=== PATIENT | female | born 1980 | race Caucasian/White ===

== ENCOUNTER → 2018-02-10 14:20 | Outpatient (CLI) | payer OTHER, SELFPAY ==
[2018-02-10 15:58] LABS: Absolute Lymphocyte Count 2.21 X10^3/ul (0.83-4.51); Absolute Neutrophil Count 5.6 X10^3/uL (2.0-7.7); Basophil# 0.03 X10^3/uL; Basophil% 0.4 % (0-1); Eosinophil# 0.11 X10^3/uL; Eosinophils% 1.3 % (0-5); Hematocrit 41.6 % (37-47); Hemoglobin 14.4 g/dl (12.0-15.0); Lymphocyte # 2.21 X10^3/ul (4.0); Lymphocyte % 26.3 % (19-41); Mean Corp Hgb Conc 34.6 g/gl (32-36); Mean Corpuscular Hgb 29.8 pg (27.0-32.0); Mean Corpuscular Volume 86.1 fL (81-99); Monocyte# 0.43 X10^3/uL; Monocyte% 5.1 % (0-10); Neutrophil % 66.7 % (47-70); Platelet Count 205 K/mm3 (150-450); RBC Distribution Width CV 12.4 % (11.6-14.6); RBC Distribution Width SD 38.4 fl (35.1-43.9); Red Blood Count 4.83 M/mm3 (4.2-5.4); White Blood Count 8.4 K/mm3 (4.4-11.0)
[2018-02-10 16:00] LABS: POSITIVE COUNT NO; POSITIVE DIFFERENTIAL NO; POSITIVE MORPHOLOGY NO
[2018-02-10 16:08] LABS: ALB/GLOB Ratio 0.9 RATIO (0.9-2.4); AST(SGOT) 10 U/L (15-37); Alanine Aminotransfer ALT/SGPT 35 U/L (13-56); Albumin, Serum 3.5 g/dL (3.2-5.0); Alkaline Phosphatase 95 U/L (45-117); Anion Gap 9 (5-15); BUN 13 mg/dL (7-18); BUN/Creat Ratio 19.3 RATIO (10-20); Calcium,Total 8.6 mg/dL (8.5-10.1); Chloride 103 mmol/L (98-107); Creatinine, Serum 0.68 mg/dL (0.55-1.02); EST Glomerular Filtration Rate 104 mL/min (>60); Est Glom Filt Rate - Afr Amer 126 mL/min (>60); Globulin 3.9 g/dL (2.2-4.2); Glucose 181 mg/dL (74-106); Lipase 150 U/L (73-393); Potassium 3.9 mmol/L (3.5-5.1); Protein, Total 7.4 g/dL (6.4-8.2); Sodium Level 138 mmol/L (136-145)
== END ==
PROVIDERS: Family Provider Family Medicine; PCP Family Medicine; Visit Provider Family Medicine
DX: R10.9 Unspecified abdominal pain (principal)
CPT/HCPCS: 36415; 80053; 83690; 85025

== ENCOUNTER → 2018-03-13 11:59 | Outpatient (CLI) | payer OTHER, SELFPAY ==
[2018-03-13 14:53] LABS: AST(SGOT) 14 U/L (15-37); Alanine Aminotransfer ALT/SGPT 32 U/L (13-56); Albumin, Serum 3.4 g/dL (3.2-5.0); Alkaline Phosphatase 81 U/L (45-117); Anion Gap 8 (5-15); BUN 12 mg/dL (7-18); BUN/Creat Ratio 16.3 RATIO (10-20); Bilirubin, Direct 0.06 mg/dL (0.00-0.30); Calcium,Total 9.1 mg/dL (8.5-10.1); Chloride 107 mmol/L (98-107); Cholesterol 159 mg/dL (200); Creatinine, Serum 0.73 mg/dL (0.55-1.02); EST Glomerular Filtration Rate 94 mL/min (>60); Est Glom Filt Rate - Afr Amer 114 mL/min (>60); Globulin 3.8 g/dL (2.2-4.2); Glucose 187 mg/dL (74-106); High Density Lipoprotein 46 mg/dL; Potassium 4.3 mmol/L (3.5-5.1); Protein, Total 7.2 g/dL (6.4-8.2); Sodium Level 140 mmol/L (136-145); Triglycerides 283 mg/dL; Very Low Density Lipoprotein 57 mg/dL (5-40)
[2018-03-13 15:00] LABS: Hemoglobin A1c 9.2 % (4.2-6.3)
== END ==
PROVIDERS: Family Provider Family Medicine; PCP Family Medicine; Visit Provider Family Medicine
DX: E11.9 Type 2 diabetes mellitus without complications (principal)
CPT/HCPCS: 36415; 80048; 80061; 80076; 83036

== ENCOUNTER → 2018-11-13 09:45 | Outpatient (CLI) | payer OTHER, SELFPAY ==
[2018-11-13 12:10] LABS: Hemoglobin A1c 10.8 % (4.2-6.3); Microalbumin,Random Urine 47.4 mg/L (NO RANGE EST.)
[2018-11-13 12:14] LABS: AST(SGOT) 16 U/L (15-37); Alanine Aminotransfer ALT/SGPT 37 U/L (13-56); Albumin, Serum 3.6 g/dL (3.2-5.0); Alkaline Phosphatase 98 U/L (45-117); Anion Gap 12 (5-15); BUN 8 mg/dL (7-18); BUN/Creat Ratio 12.1 RATIO (10-20); Bilirubin, Direct 0.06 mg/dL (0.00-0.30); Calcium,Total 8.6 mg/dL (8.5-10.1); Chloride 106 mmol/L (98-107); Cholesterol 195 mg/dL (200); Creatinine, Serum 0.66 mg/dL (0.55-1.02); EST Glomerular Filtration Rate 106 mL/min (>60); Est Glom Filt Rate - Afr Amer 128 mL/min (>60); Globulin 3.3 g/dL (2.2-4.2); Glucose 237 mg/dL (74-106); High Density Lipoprotein 37 mg/dL; Potassium 3.8 mmol/L (3.5-5.1); Protein, Total 6.9 g/dL (6.4-8.2); Sodium Level 139 mmol/L (136-145); Triglycerides 346 mg/dL; Very Low Density Lipoprotein 69 mg/dL (5-40)
== END ==
PROVIDERS: Family Provider Family Medicine; PCP Family Medicine; Visit Provider Family Medicine
DX: E11.9 Type 2 diabetes mellitus without complications (principal)
CPT/HCPCS: 36415; 80048; 80061; 80076; 82043; 82570; 83036

== ENCOUNTER → 2019-01-15 16:21 | Outpatient (CLI) | payer OTHER, SELFPAY ==
--- NOTE | 2019-01-15 16:30 | CT_ITS ---
STUDY: CT ABDOMEN AND PELVIS WITHOUT CONTRAST REASON FOR EXAM: Female, 38 years old. Left-sided flank pain RADIATION DOSAGE (If Supplied By Facility): CTDIvol = ( 17.13 ) mGy, DLP = ( 919.94 ) mGycm TECHNIQUE: Transaxial images were obtained from the dome of the diaphragm to the symphysis pubis without oral contrast, and without intravenous contrast. Sagittal and coronal images were reconstructed. Individualized dose optimization techniques were used for this CT. COMPARISON: None. FINDINGS: The visualized lung bases are unremarkable. The visualized portions of the heart are within normal limits. There is decreased attenuation of the liver consistent with steatosis. There is non-visualization of the gallbladder, which may be secondary to either contraction or a prior cholecystectomy. Normal spleen. Normal pancreas. Normal bilateral adrenal glands. Normal right kidney. Normal left kidney. Normal visualized stomach. Normal small intestine. Normal colon. The appendix is visualized and appears normal. Normal abdominal aorta. Normal inferior vena cava. Normal retroperitoneum. Normal urinary bladder. There is a 3.7 cm exophytic mass arising from the left uterine fundus. There is a small umbilical hernia containing fat. Normal osseous structures. CT/Abdomen/Pelvis without Cont IMPRESSION: 1. Hepatic steatosis. 2. Nonvisualization of the gallbladder. 3. 3.7 cm exophytic mass arising from the left uterine fundus most likely representing a fibroid. 4. Small fat-containing umbilical hernia. 5. There is no evidence of nephro or ureterolithiasis, hydronephrosis, or hydroureter. No free intra-abdominal or intrapelvic air, fluid, or inflammatory process is noted. Electronically Signed: Conor Alexander MD at 18:10 EDT , Service support ,
== END ==
PROVIDERS: Family Provider Family Medicine; PCP Family Medicine; Referring Provider Family Medicine; Visit Provider Family Medicine
DX: R10.9 Unspecified abdominal pain (principal)
CPT/HCPCS: 74176

== ENCOUNTER 2021-04-20 22:18 | Emergency (ER) | payer MEDICAID, SELFPAY ==
[2021-04-20 22:19] VITALS: BP 163/90; PULSE 98; RESP 18; TEMP 37; O2SAT 98; BMI 28.8
[2021-04-20 22:20] VITALS: BP 163/90; PULSE 98; RESP 18; TEMP 37; O2SAT 98
--- NOTE | 2021-04-20 23:06 | EX.ED.DYSGE1 ---
HPI History of Present Illness Chief Complaint: Abscess Informant: patient Narrative Narrative: Patient is a 40-year-old female with a past medical history of diabetes that is only managed by diet who presents to the emergency department for suspected abscess to her labia that is extended to her rectum. This is been present the past 3 days. She is never had this before. She states it is painful when walking and sitting. She denies any fevers or chills. She has been taking Advil for this which not giving her any relief. She denies any urinary symptoms. No change in bowel movements. She states she is currently on her menstrual period. She states she has gotten really bad leg infections before. She denies any abdominal pain or back pain. There has not been any discharge from the area. PFSH PFSH Home Medications cephalexin 500 mg PO 4X/DAY 10 Days #40 cap 04/21/21 [Rx Last Taken Unknown] sulfamethoxazole-trimethoprim [Bactrim DS] 1 tab PO DAILY 10 Days #10 tab 04/21/21 [Rx Last Taken Unknown] Allergy/AdvReac Type Severity Reaction Status Date / Time metformin AdvReac Other Verified 04/20/21 22:21 Social History Smoking Status: Never smoker ROS ROS ED Constitutional Constitutional ED: Denies chills Eyes Eyes: Denies change in vision ENT ENT ED: Denies epistaxis or rhinorrhea Cardiovascular Cardiovascular: Denies chest pain or palpitations Respiratory/Chest Respiratory/Chest: Denies cough, dyspnea or dyspnea on exertion Gastrointestinal Gastrointestinal: Denies abdominal pain, diarrhea, nausea or vomiting Genitourinary Genitourinary ED: Denies dysuria, hematuria or urinary frequency Musculoskeletal Musculoskeletal: Denies back pain or neck pain Integumentary Reports abscess Neurologic Neurologic: Denies dizziness, headache(s) or weakness EXAM Physical Exam Const Vital Signs: 04/20/21 22:19 04/20/21 22:20 Temperature 98.6 F 98.6 F Temperature Source Temporal Temporal Pulse Rate 98 98 Respiratory Rate 18 18 Blood Pressure 163/90 H 163/90 H Blood Pressure Mean 114 114 Pulse Ox 98 98 Oxygen Delivery Method Room Air Room Air Positive well nourished and well developed General Appearance ED: well developed and NAD HEENT Reports normocephalic, head/scalp atraumatic and moist mucous membranes Eyes PERRL and EOMs intact bilaterally Neck supple Resp normal respiratory effort and clear to auscultation bilaterally Auscultation: Negative for rales, rhonchi or wheezes Cardio regular rate, regular rhythm and no murmurs GI normal to inspection, nondistended, normoactive bowel sounds and non-tender Palpation: soft; Negative for guarding or rebound tenderness present Back/Spine no CVA tenderness Extremity normal to inspection General Extremety ED: Negative for edema or tenderness General Extremity: Negative for edema Neuro no sensory deficits noted Sensorium / Orientation: alert Motor Exam: strength 5/5 throughout Psych mental status grossly normal Skin Skin Narrative: Chaperoned by nurse. There is induration, tenderness, warmth around the left labia extending to the perineum near the rectum. No obvious rectal abscess. No fluctuating abscess present. MDM MDM MDM Narrative Medical decision making narrative: Patient presents to the emergency department for suspected abscess to the perineum region. Upon arrival to the emergency department vital signs within normal limits except for hypertension. On exam there does appear to be induration, cellulitis. There is likely underlying abscess but no fluctuance present. Given the extent of the perineal involvement we will get a CT scan of the pelvis to make sure no significant underlying abscess requiring surgical drainage. Patient's lab work did not reveal a high white blood cell count. Her glucose was significantly elevated at 407. She was made aware of this. Does have insulin at home she was going to start taking again. Fortunately CT scan did not show a large abscess. This does appear to just be a cellulitis. There was evidence of fibroid uterus. Will treat with Bactrim and Keflex. I have low concern for Lexa's gangrene. Return precautions are reviewed with her. She is to otherwise follow-up with her PCP. She understands and is agreeable this plan. Discharged home in stable condition. Lab Data Labs: Laboratory Results - last 24 hr 04/20/21 04/20/21 04/20/21 23:25 23:25 23:25 WBC 9.5 RBC 4.74 Hgb 13.7 Hct 41.4 MCV 87.3 MCH 28.9 MCHC 33.1 RDW Std Deviation 38.0 RDW Coeff of Meet 11.9 Plt Count 173 MPV 11.6 Immature Gran % (Auto) 0.300 Neut % (Auto) 73.2 H Lymph % (Auto) 17.1 L [place] % (Auto) 7.9 Eos % (Auto) 1.1 Baso % (Auto) 0.4 Absolute Neuts (auto) 7.0 Absolute Lymphs (auto) 1.62 Nucleated RBC % 0 Sodium 137 Potassium 3.8 Chloride 100 Carbon Dioxide 28.0 Anion Gap 9 BUN 12 Creatinine 0.73 Estim Creat Clear Calc 103.34 Est GFR (MDRD) Af Amer 113 Est GFR (MDRD) Non-Af 93 BUN/Creatinine Ratio 16.4 Glucose 407 H Calcium 8.8 Serum , Qual NEGATIVE Radiography Diagnostic Testing: Radiology Impression Pelvis CT 04/20/21 23:11 IMPRESSION: Infiltration of subcutaneous fat in the left perineal region, possibly representing cellulitis. No discrete abscess is visualized. No visualized N for pelvic extension of infection. Leiomyomatous uterus. Electronically Signed: Miguel Angel Hutson MD at 0:19 EDT , Service support , Discharge Plan Triage Chief Complaint: Abscess ED Provider: Taran Burnett Dx/Rx/DC Orders Clinical Impression: Cellulitis Instructions: ED Cellulitis Prescriptions: New cephalexin 500 mg capsule 500 mg PO 4X/DAY 10 Days Qty: 40 RF: 0 sulfamethoxazole-trimethoprim [Bactrim DS] 800-160 mg tablet 1 tab PO DAILY 10 Days Qty: 10 RF: 0 Primary Care Provider: Shakira Mathur Referrals: Shakira Mathur MD [Primary Care Provider] - 3-5 Days Disposition Disposition: Home, self care Discharge Date/Time: 04/21/21 01:21
--- NOTE | 2021-04-20 23:11 | CT_ITS ---
STUDY: CT PELVIS WITH CONTRAST REASON FOR EXAM: Female, 40 years old. Eval abcess, started labia extended rectum RADIATION DOSAGE (If Supplied By Facility): CTDIvol = ( 17.58 ) mGy, DLP = ( 888.21 ) mGycm TECHNIQUE: Transaxial imaging of the pelvis was performed without oral contrast. IV 100mL Isovue-370 was administered intravenously. Individualized dose optimization techniques were used for this CT. COMPARISON: CT scan abdomen and pelvis 01/15/2019. FINDINGS: There is infiltration of subcutaneous fat in the left cranium, possibly representing cellulitis. No discrete abscess is identified. Normal urinary bladder. Uterus is heterogeneous. There is a 5 cm pedunculated leiomyoma arising from the left superior aspect of the uterine fundus. Normal visualized small intestine. Normal visualized colon. The appendix is seen on axial images 25 minute appears normal. There is no pelvic fluid. There is no pelvic lymphadenopathy or mass lesion. Normal visualized pelvic arteries. There is a small umbilical hernia containing fat. Normal osseous structures. CT/Pelvis WITH IV Contrast IMPRESSION: Infiltration of subcutaneous fat in the left perineal region, possibly representing cellulitis. No discrete abscess is visualized. No visualized N for pelvic extension of infection. Leiomyomatous uterus. Electronically Signed: Miguel Angel Hutson MD at 0:19 EDT , Service support ,
[2021-04-20 23:31] LABS: Absolute Lymphocyte Count 1.62 X10^3/uL (0.83-4.51); Basophil# 0.04 X10^3/uL; Basophil% 0.4 % (0-1); Eosinophils% 1.1 % (0-5); Hematocrit 41.4 % (37-47); Hemoglobin 13.7 g/dL (12.0-15.0); Lymphocyte # 1.62 X10^3/ul (0.83-4.51); Lymphocyte % 17.1 % (19-41); Mean Corp Hgb Conc 33.1 g/dL (32-36); Mean Corpuscular Hgb 28.9 pg (27.0-32.0); Mean Corpuscular Volume 87.3 fL (81-99); Mean Platelet Vol. 11.6 fl (6.2-12.0); Monocyte# 0.75 X10^3/uL; Monocyte% 7.9 % (0-10); NRBC Flagged by Analyzer 0 % (0-5); Neutrophil # 6.96 X10^3/uL (2.7-7.7); Neutrophil % 73.2 % (47-70); Platelet Count 173 K/mm3 (150-450); RBC Distribution Width CV 11.9 % (11.6-14.6); Red Blood Count 4.74 M/mm3 (4.2-5.4); White Blood Count 9.5 K/mm3 (4.4-11.0)
[2021-04-20 23:40] LABS: Internal QC Validated? YES +Cl - CLEAR BKGD; Pregnancy, Serum, hCG Quali. NEGATIVE Negative
[2021-04-20 23:45] LABS: Anion Gap 9 (5-15); BUN 12 mg/dL (7-18); BUN/Creat Ratio 16.4 RATIO (10-20); Calcium,Total 8.8 mg/dL (8.5-10.1); Chloride 100 mmol/L (98-107); Creatinine, Serum 0.73 mg/dL (0.55-1.02); EST Glomerular Filtration Rate 93 mL/min (>60); Est Glom Filt Rate - Afr Amer 113 mL/min (>60); Estimated Creatinine Clearance 103.34 ml/min; Glucose 407 mg/dL (74-106); Potassium 3.8 mmol/L (3.5-5.1); Sodium Level 137 mmol/L (136-145)
[2021-04-21] MEDS: Cephalexin 250 MG Capsule 500 MG PO (01:16)
[2021-04-21] MEDS: Smz/Tmp Ds Tablet 1 TABLET PO (01:16)
== END 2021-04-21 01:21 | disposition home or self-care (01) ==
PROVIDERS: Emergency Provider Emergency Medicine; PCP Family Medicine
DX: L03.90 Cellulitis, unspecified (principal); D25.9 Leiomyoma of uterus, unspecified; E11.9 Type 2 diabetes mellitus without complications; Z79.84 Long term (current) use of oral hypoglycemic drugs
CPT/HCPCS: 72193; 80048; 84703; 85025; 99283; Q9967; A4216

== ENCOUNTER 2021-04-23 10:31 | Emergency (ER) | payer MEDICAID, SELFPAY ==
[2021-04-23] VITALS (14 sets, daily range): BP systolic 102–151; BP diastolic 60–111; PULSE 97–142; RESP 14–30; TEMP 36.3–37.1; O2SAT 98–100; BMI 30.4
--- NOTE | 2021-04-23 10:50 | EKG12_ITS ---
Test Reason : ABCESS Blood Pressure : / mmHG Vent. Rate : 098 BPM Atrial Rate : 098 BPM P-R Int : 152 ms QRS Dur : 084 ms QT Int : 342 ms P-R-T Axes : 037 006 016 degrees QTc Int : 436 ms Normal sinus rhythm Normal ECG Confirmed by SIM MURRY, FAWN ([id number]), assignment editor TANNER GOFF ([id number]) on 04/27/2021 11:06:23 A M Referred By: DEISY Confirmed By:AP MONTEMAYOR MD
--- NOTE | 2021-04-23 10:52 | EX.ED.DYSGE1 ---
HPI History of Present Illness Chief Complaint: Abscess Informant: patient Onset/Context/Timing Onset: Days (4) Context: Gradual Onset Timing: Continuous Quality: Pain Location: Perineum Current Severity: Severe Maximum Severity: Severe Worsened by: Sitting, touching affected area Relieved by: Nothing Associated Symptoms Associated Symptoms: Low-grade fevers, chills, malaise. No N/V or problems urinating. Narrative Narrative: 3 days ago for pain in the same area, CT showed no collection and she was placed on cephalexin and Bactrim, however the area has gotten worse, with a significant difference overnight into this morning. It seems much larger, more painful, she has had some low-grade fevers and feeling cold chills. She has had no bowel movement in the last 2 days, but she has passed flatus and it is very painful. She is diet-controlled diabetic, her blood sugars were 400 when she was here 3 days ago, she started using her insulin and she is having a very difficult time getting it below 300 even with it. She denies any other new symptoms. No spontaneous drainage. [facility] Medical History Diabetes Home Medications cephalexin 500 mg PO 4X/DAY 10 Days #40 cap 04/21/21 [Rx Last Taken Unknown] sulfamethoxazole-trimethoprim [Bactrim DS] 1 tab PO DAILY 10 Days #10 tab 04/21/21 [Rx Last Taken Unknown] hydrocodone-acetaminophen 1 tab PO Q4H PRN PRN 2 Days #10 tablet 04/23/21 [Rx Last Taken Unknown] insulin glargine [Basaglar KwikPen U-100 Insulin] 32 unit SUBCUT BID 04/23/21 [History Last Taken Unknown] insulin lispro [Humalog KwikPen Insulin] 22 unit SUBCUT TID 04/23/21 [History Last Taken Unknown] sulfamethoxazole-trimethoprim [Bactrim DS] 1 tab PO BID #14 tab 04/23/21 [Rx Last Taken Unknown] Allergy/AdvReac Type Severity Reaction Status Date / Time metformin AdvReac Other Verified 04/23/21 10:31 Social History Smoking Status: Never smoker ROS ROS ED Constitutional Constitutional ED: Reports chills, fever(s), malaise and subjective Eyes Eyes: Denies change in vision or diplopia ENT ENT ED: Denies rhinorrhea or sore throat Cardiovascular Cardiovascular: Denies chest pain or palpitations Respiratory/Chest Respiratory/Chest: Denies cough or dyspnea Gastrointestinal Gastrointestinal: Denies abdominal pain, diarrhea, nausea or vomiting Genitourinary Genitourinary ED: Denies dysuria or hematuria Musculoskeletal Musculoskeletal: Denies back pain or neck pain Integumentary Reports as per HPI and abscess; Denies rash Neurologic Neurologic: Denies headache(s), paresthesias or weakness Psychiatric Psychiatric: Denies anxiety or suicidal thoughts EXAM Physical Exam Const Vital Signs: 04/23/21 10:32 04/23/21 10:33 04/23/21 10:44 Temperature 97.3 F L 97.3 F L Temperature Source Temporal Temporal Pulse Rate 142 H 142 H 125 H Pulse Rate [1 (Initial Baseline)] Pulse Rate [2] Pulse Rate [3] Pulse Rate [4] Respiratory Rate 18 18 Respiratory Rate [1 (Initial Baseline)] Respiratory Rate [2] Respiratory Rate [3] Respiratory Rate [4] Blood Pressure 151/93 H 151/93 H Blood Pressure [1 (Initial Baseline)] Blood Pressure [2] Blood Pressure [4] Blood Pressure Mean 112 112 Pulse Ox 98 98 Oxygen Delivery Method Room Air Room Air Oxygen Delivery Method [1 (Initial Baseline)] Oxygen Delivery Method [2] Oxygen Delivery Method [3] Oxygen Delivery Method [4] Oxygen Flow Rate (L/min) Oxygen Flow Rate (L/min) [1 (Initial Baseline)] Oxygen Flow Rate (L/min) [3] Fraction of Inspired Oxygen (FIO2) [2] 04/23/21 11:05 04/23/21 11:09 04/23/21 13:12 Temperature 98.7 F 98.5 F Temperature Source Oral Oral Pulse Rate 100 97 Pulse Rate [1 (Initial Baseline)] Pulse Rate [2] Pulse Rate [3] Pulse Rate [4] Respiratory Rate 20 H 16 Respiratory Rate [1 (Initial Baseline)] Respiratory Rate [2] Respiratory Rate [3] Respiratory Rate [4] Blood Pressure 135/84 H 110/72 Blood Pressure [1 (Initial Baseline)] Blood Pressure [2] Blood Pressure [4] Blood Pressure Mean 101 84 Pulse Ox 98 99 Oxygen Delivery Method Room Air Room Air Oxygen Delivery Method [1 (Initial Baseline)] Oxygen Delivery Method [2] Oxygen Delivery Method [3] Oxygen Delivery Method [4] Oxygen Flow Rate (L/min) Oxygen Flow Rate (L/min) [1 (Initial Baseline)] Oxygen Flow Rate (L/min) [3] Fraction of Inspired Oxygen (FIO2) [2] 04/23/21 14:00 04/23/21 15:26 04/23/21 16:33 Temperature Temperature Source Pulse Rate 101 H 109 H 103 H Pulse Rate [1 (Initial Baseline)] Pulse Rate [2] Pulse Rate [3] Pulse Rate [4] Respiratory Rate 15 20 H 14 Respiratory Rate [1 (Initial Baseline)] Respiratory Rate [2] Respiratory Rate [3] Respiratory Rate [4] Blood Pressure 125/83 H 129/83 H 132/111 H Blood Pressure [1 (Initial Baseline)] Blood Pressure [2] Blood Pressure [4] Blood Pressure Mean 97 98 Pulse Ox 99 100 100 Oxygen Delivery Method Room Air Room Air Room Air Oxygen Delivery Method [1 (Initial Baseline)] Oxygen Delivery Method [2] Oxygen Delivery Method [3] Oxygen Delivery Method [4] Oxygen Flow Rate (L/min) Oxygen Flow Rate (L/min) [1 (Initial Baseline)] Oxygen Flow Rate (L/min) [3] Fraction of Inspired Oxygen (FIO2) [2] 04/23/21 16:35 04/23/21 16:50 04/23/21 16:55 Temperature Temperature Source Pulse Rate 115 H 104 H Pulse Rate [1 (Initial Baseline)] 108 H Pulse Rate [2] 111 H Pulse Rate [3] 111 H Pulse Rate [4] 108 H Respiratory Rate 18 16 Respiratory Rate [1 (Initial Baseline)] 30 H Respiratory Rate [2] 29 H Respiratory Rate [3] 22 H Respiratory Rate [4] 25 H Blood Pressure 102/63 122/81 H Blood Pressure [1 (Initial Baseline)] 135/80 H Blood Pressure [2] 120/79 Blood Pressure [4] 108/60 Blood Pressure Mean Pulse Ox 100 99 Oxygen Delivery Method Room Air Room Air Oxygen Delivery Method [1 (Initial Baseline)] Nasal Cannula Oxygen Delivery Method [2] Room Air Oxygen Delivery Method [3] Nasal Cannula Oxygen Delivery Method [4] Nasal Cannula Oxygen Flow Rate (L/min) 0 Oxygen Flow Rate (L/min) [1 (Initial Baseline)] 4 Oxygen Flow Rate (L/min) [3] 4 Fraction of Inspired Oxygen (FIO2) [2] 4 04/23/21 17:00 Temperature Temperature Source Pulse Rate 102 H Pulse Rate [1 (Initial Baseline)] Pulse Rate [2] Pulse Rate [3] Pulse Rate [4] Respiratory Rate 19 H Respiratory Rate [1 (Initial Baseline)] Respiratory Rate [2] Respiratory Rate [3] Respiratory Rate [4] Blood Pressure 131/78 H Blood Pressure [1 (Initial Baseline)] Blood Pressure [2] Blood Pressure [4] Blood Pressure Mean Pulse Ox 99 Oxygen Delivery Method Room Air Oxygen Delivery Method [1 (Initial Baseline)] Oxygen Delivery Method [2] Oxygen Delivery Method [3] Oxygen Delivery Method [4] Oxygen Flow Rate (L/min) Oxygen Flow Rate (L/min) [1 (Initial Baseline)] Oxygen Flow Rate (L/min) [3] Fraction of Inspired Oxygen (FIO2) [2] Positive well nourished and well developed General Appearance ED: well developed and NAD HEENT Reports moist mucous membranes normocephalic and atraumatic Eyes PERRL and EOMs intact bilaterally Neck full ROM and supple Resp normal respiratory effort and clear to auscultation bilaterally Cardio regular rate, regular rhythm and no murmurs Rate: tachycardic GI non-tender and non-distended Auscultation: normoactive bowel sounds Palpation: soft Narrative: Very tender pointing abscess in the perineum a little to the left, does not appear to involve the labia it is posterior to the left labia majora, is close to the rectum but is not perianal would obviously started more anterior to this. Now, there is a large indurated area that feels like abscess is approximately 4-5 cm in diameter in this area. Very difficult to evaluate due to extreme tenderness. No area of opening or spontaneous discharge. No necrotic tissue or subcutaneous emphysema. Back/Spine no CVA tenderness General Back: other FROM Extremity normal to inspection General Extremety ED: Negative for edema, pulses abnormal or tenderness General Extremity: Negative for edema or pulses abnormal Neuro oriented x3, CN's II-XII intact bilaterally and no sensory deficits noted Sensorium / Orientation: awake and alert Motor Exam: strength 5/5 throughout Skin no rashes or lesions noted and no wounds MDM MDM MDM Narrative Medical decision making narrative: Repeat CT scan obtained along with basic labs blood cultures lactate. Blood sugar 286, she was given fluid in addition to the insulin that she took prior to arrival, in addition to pain and nausea medication and IV vancomycin. No significant leukocytosis, she does not meet criteria for sepsis and clinically does not appear septic. The abscess is not perirectal or ischiorectal, and is amenable to percutaneous incision and drainage. Discussed this with the patient she is comfortable with having this done at the bedside under procedural sedation which I certainly recommend since I can barely get close to it since it is so tender without that. We discussed pros and cons and she was comfortable with that plan and signed consent. See the procedure note. A good drainage was obtained; I do not think the patient requires admission. Patient is to continue her antibiotics, remove the packing in 48 hours, and we discussed reasons to return. Prior to discharge and discussing the antibiotics with the patient and her , it became evident that prior to this visit the Bactrim was prescribed once daily. In my opinion, it is more appropriately prescribed twice daily. Therefore she will take an additional tablet tonight when she gets home, and I gave her a prescription for an additional 7-day supply of twice daily Bactrim and she will use the rest of the initial one that way as well. Lab Data Attestation: I reviewed the patient's lab results. Labs: Laboratory Results - last 24 hr 04/23/21 04/23/21 04/23/21 10:55 10:55 10:55 WBC 9.3 RBC 5.20 Hgb 14.9 Hct 44.5 MCV 85.6 MCH 28.7 MCHC 33.5 RDW Std Deviation 37.3 RDW Coeff of Meet 11.9 Plt Count 205 MPV 11.0 Immature Gran % (Auto) 0.500 Neut % (Auto) 79.4 H Lymph % (Auto) 11.1 L [place] % (Auto) 8.2 Eos % (Auto) 0.6 Baso % (Auto) 0.2 Absolute Neuts (auto) 7.4 Absolute Lymphs (auto) 1.03 Nucleated RBC % 0 PT 12.0 INR 0.9 APTT 26.3 Sodium 138 Potassium 3.9 Chloride 106 Carbon Dioxide 23.0 Anion Gap 9 BUN 10 Creatinine 0.66 Estim Creat Clear Calc 114.30 Est GFR (MDRD) Af Amer 128 Est GFR (MDRD) Non-Af 106 BUN/Creatinine Ratio 15.2 Glucose 286 H Lactic Acid Calcium 8.8 Total Bilirubin 0.50 AST 10 L ALT 18 Alkaline Phosphatase 108 Total Protein 7.2 Albumin 3.2 Globulin 4.0 Albumin/Globulin Ratio 0.8 L 04/23/21 10:55 WBC RBC Hgb Hct MCV MCH MCHC RDW Std Deviation RDW Coeff of Meet Plt Count MPV Immature Gran % (Auto) Neut % (Auto) Lymph % (Auto) [place] % (Auto) Eos % (Auto) Baso % (Auto) Absolute Neuts (auto) Absolute Lymphs (auto) Nucleated RBC % PT INR APTT Sodium Potassium Chloride Carbon Dioxide Anion Gap BUN Creatinine Estim Creat Clear Calc Est GFR (MDRD) Af Amer Est GFR (MDRD) Non-Af BUN/Creatinine Ratio Glucose Lactic Acid 1.3 Calcium Total Bilirubin AST ALT Alkaline Phosphatase Total Protein Albumin Globulin Albumin/Globulin Ratio Radiography Diagnostic Testing: Radiology Impression Pelvis CT 04/23/21 12:00 IMPRESSION: 1. Increased hypodensity of the faintly rim-enhancing left perineal abscess measuring 8 x 1.3 cm. 2. No other additional findings or changes when compared to 04/20/2021. Electronically Signed: Elkin Chaudhary MD at 12:26 EDT , Service support , EKG Initial EKG: Attestation: I personally reviewed and interpreted this EKG as follows: Interpretation: Sinus Rhythm and No Acute Injury Pattern Procedures Other Procedures Procedure(s): Procedural sedation -- patient was n.p.o. for more than 6 hours. Written informed consent obtained. Analgesics fentanyl given prior to sedation, followed by propofol. A total of 200 mg was given, initially in a 130 mg aliquot, followed by another 50 mg and then another 20 mg. There were no complications and the patient remained adequately sedated. She recovered without difficulty. Incision and drainage cutaneous perineal abscess, complex -- female nurses were present during the procedure and assisted in holding the patient's leg out of the way. 8 cc of plain 1% lidocaine was used for local anesthesia, after prepping with chlorhexidine. Then, a #11 blade was used to make a small incision at the area in the perineum that is pointing suggesting the most superficial aspect of the abscess. Pus under pressure was immediately expressed, and to a significant degree. I deloculated the area deeply with hemostats bluntly, enabling more purulent discharge to be expressed. I irrigated the cavity gently with sterile saline, packed the cavity with quarter inch sterile gauze, and it was dressed with a gauze dressing. There were no complications, tolerated well under procedural sedation. Discharge Plan Triage Chief Complaint: Abscess ED Provider: Filippo Baumann Dx/Rx/DC Orders Clinical Impression: Cutaneous abscess of perineum, Hyperglycemia due to diabetes mellitus Instructions: ED Abscess Incision And Drainage Prescriptions: New hydrocodone-acetaminophen 5-325 mg tablet 1 tab PO Q4H PRN PRN (Reason: Pain) 2 Days Qty: 10 RF: 0 sulfamethoxazole-trimethoprim [Bactrim DS] 800-160 mg tablet 1 tab PO BID Qty: 14 RF: 0 No Action cephalexin 500 mg capsule 500 mg PO 4X/DAY 10 Days Qty: 40 RF: 0 sulfamethoxazole-trimethoprim [Bactrim DS] 800-160 mg tablet 1 tab PO DAILY 10 Days Qty: 10 RF: 0 insulin lispro [Humalog KwikPen Insulin] 100 unit/mL insulin pen 22 unit SUBCUT TID RF: 0 Basaglar KwikPen U-100 Insulin 100 unit/mL (3 mL) insulin pen 32 unit SUBCUT BID RF: 0 Primary Care Provider: Shakira Mathur Referrals: Shakira Mathur MD [Primary Care Provider] - 3-5 Days if not improving (or return to ER) Activity Restrictions/Additional Instructions: Change dressings frequently over the next 24 hours, whenever it is dirty with discharge to help draw it away from the wound. As long as there is some improvement in roughly 48 hours, pull the packing completely out and discard it. Continue to perform dressing changes as needed for discharge, applying bacitracin to area each time. After packing removed, perform sits baths with warm soapy water for 10-15 minutes each time twice daily, patting dry and placing new dry dressing w/ ointment for as long as able until there is no more discharge. If at any point you feel like it is getting worse, return to the ER for reevaluation. Continue taking the antibiotic you were prescribed until they are gone; they are appropriate. Keep a close eye on your blood sugars and try to keep them under control with your insulin. Feel free to return to the ER for any other worsening issues here. Disposition Disposition: Home, self care
[2021-04-23] MEDS: Morphine 4 MG/ML Syringe IV (11:06)
[2021-04-23] MEDS: Ondansetron 4 MG/2 ML Vial IV (11:06)
[2021-04-23] MEDS: 0.9% Normal Saline 1,000 ML 999 ML IV (11:06)
[2021-04-23 11:07] LABS: Absolute Lymphocyte Count 1.03 X10^3/uL (0.83-4.51); Absolute Neutrophil Count 7.4 X10^3/uL (2.0-7.7); Basophil# 0.02 X10^3/uL; Basophil% 0.2 % (0-1); Eosinophil# 0.06 X10^3/uL; Eosinophils% 0.6 % (0-5); Hematocrit 44.5 % (37-47); Hemoglobin 14.9 g/dL (12.0-15.0); Lymphocyte # 1.03 X10^3/ul (0.83-4.51); Lymphocyte % 11.1 % (19-41); Mean Corp Hgb Conc 33.5 g/dL (32-36); Mean Corpuscular Hgb 28.7 pg (27.0-32.0); Mean Corpuscular Volume 85.6 fL (81-99); Monocyte# 0.76 X10^3/uL; Monocyte% 8.2 % (0-10); NRBC Flagged by Analyzer 0 % (0-5); Neutrophil # 7.39 X10^3/uL (2.7-7.7); Neutrophil % 79.4 % (47-70); Platelet Count 205 K/mm3 (150-450); RBC Distribution Width CV 11.9 % (11.6-14.6); RBC Distribution Width SD 37.3 fl (35.1-43.9); White Blood Count 9.3 K/mm3 (4.4-11.0)
[2021-04-23 11:15] LABS: International Normalized Ratio 0.9
[2021-04-23 11:16] LABS: Partial Thromboplast Time 26.3 Seconds (24.1-36.2)
[2021-04-23 11:23] LABS: ALB/GLOB Ratio 0.8 RATIO (0.9-2.4); AST(SGOT) 10 U/L (15-37); Alanine Aminotransfer ALT/SGPT 18 U/L (13-56); Albumin, Serum 3.2 g/dL (3.2-5.0); Alkaline Phosphatase 108 U/L (45-117); Anion Gap 9 (5-15); BUN 10 mg/dL (7-18); BUN/Creat Ratio 15.2 RATIO (10-20); Calcium,Total 8.8 mg/dL (8.5-10.1); Chloride 106 mmol/L (98-107); Creatinine, Serum 0.66 mg/dL (0.55-1.02); EST Glomerular Filtration Rate 106 mL/min (>60); Est Glom Filt Rate - Afr Amer 128 mL/min (>60); Glucose 286 mg/dL (74-106); Potassium 3.9 mmol/L (3.5-5.1); Protein, Total 7.2 g/dL (6.4-8.2); Sodium Level 138 mmol/L (136-145)
[2021-04-23 11:35] LABS: Lactic Acid 1.3 mmol/L (0.4-1.9)
--- NOTE | 2021-04-23 12:00 | CT_ITS ---
EXAM: CT PELVIS WITH INTRAVENOUS CONTRAST CLINICAL INDICATION: perineal abscess TECHNIQUE: Helically acquired images were obtained of the pelvis with intravenous contrast. This CT exam was performed using one or more of the following dose reduction techniques: automated exposure control, adjustment of the mA and/or kV according to patient size, and/or use of iterative reconstruction technique. This report was created using [employer] report generation technology. CONTRAST: IV 100mL Isovue-370 COMPARISON: CT pelvis with IV contrast 04/20/2021. FINDINGS: BOWEL: Unremarkable as visualized. No bowel distention. No focal inflammatory change. APPENDIX: No evidence of acute appendicitis. INTRAPERITONEAL SPACE: Unremarkable. No ascites or other fluid collection. No free air. BLADDER: Unremarkable. REPRODUCTIVE: Unremarkable as visualized. No mass. BONES/JOINTS: Unremarkable. No suspicious lytic or blastic abnormality. SOFT TISSUES: 8 cm long by 1.3 cm thick faintly rim-enhancing left perineal early abscess with faint rim enhancement. This is best seen in the sagittal view. No pelvic wall hernia. LYMPH NODES: Unremarkable. No enlarged lymph nodes. CT/Pelvis WITH IV Contrast IMPRESSION: 1. Increased hypodensity of the faintly rim-enhancing left perineal abscess measuring 8 x 1.3 cm. 2. No other additional findings or changes when compared to 04/20/2021. Electronically Signed: Elkin Chaudhary MD at 12:26 EDT , Service support ,
[2021-04-23] MEDS: fentaNYL 100 MCG/2 ML Ampul 50 MCG IV ×2 (14:08→15:25)
[2021-04-23] MEDS: Propofol 200 MG/20 ML Vial IV BOLUS (16:35)
[2021-04-23] MEDS: Lidocaine 1% (20 ml mdv) 20 ML Vial INFILT (16:55)
== END 2021-04-23 17:36 | disposition home or self-care (01) ==
PROVIDERS: Emergency Provider Emergency Medicine; PCP Family Medicine
DX: L02.215 Cutaneous abscess of perineum (principal); E11.65 Type 2 diabetes mellitus with hyperglycemia; Z79.4 Long term (current) use of insulin
CPT/HCPCS: 36415; 46050; 72193; 80053; 83605; 85025; 85610; 85730; 87040; 93005; 96365; 96375; 99152; 99284; J7030; J7040; Q9967; A4216; J2405

== ENCOUNTER 2021-04-25 02:49 | Day surgery (SDC) | payer MEDICAID, SELFPAY ==
[2021-04-23 10:32] VITALS: BMI 30.4
[2021-04-25] VITALS (17 sets, daily range): BP systolic 114–168; BP diastolic 58–92; PULSE 97–118; RESP 14–20; TEMP 35.8–37.2; O2SAT 93–100; BMI 31.4
--- NOTE | 2021-04-25 03:04 | RAD_ITS ---
STUDY: X-RAY CHEST REASON FOR EXAM: Female, 40 years old patient with tachycardia. TECHNIQUE: Single AP portable view of the chest. COMPARISON: Chest radiograph dated 08/02/2015. FINDINGS: Cardiac monitoring leads are present. The lungs are clear and expanded. There is no demonstrated pleural abnormality. Normal size heart. Normal mediastinum and heather. Normal visualized pulmonary arteries. Normal visualized aortic arch and descending thoracic aorta. Normal visualized thoracic spine. Normal visualized ribs, clavicles, and shoulders. There is no demonstrated abnormality of the visualized soft tissue structures of the upper abdomen. RAD/Chest 1 View (Portable) IMPRESSION: No radiographic evidence of acute cardiopulmonary disease. Electronically Signed: Tasha Eric MD at 4:01 EDT , Service support ,
--- NOTE | 2021-04-25 03:04 | EKG12_ITS ---
Test Reason : VOMITING Blood Pressure : / mmHG Vent. Rate : 100 BPM Atrial Rate : 100 BPM P-R Int : 146 ms QRS Dur : 088 ms QT Int : 358 ms P-R-T Axes : 027 015 016 degrees QTc Int : 461 ms Normal sinus rhythm Normal ECG Confirmed by SIM MURRY, FAWN ([id number]), art editor TANNER GOFF ([id number]) on 04/27/2021 11:09:36 A M Referred By: MARITZA Confirmed By:AP MONTEMAYOR MD
--- NOTE | 2021-04-25 03:05 | CT_ITS ---
STUDY: CT ABDOMEN AND PELVIS WITH CONTRAST REASON FOR EXAM: Female, 40 years old patient with rectal pain. RADIATION DOSAGE (If Supplied By Facility): CTDIvol = ( 18.13 ) mGy, DLP = ( 1587.87 ) mGycm TECHNIQUE: Transaxial images were obtained from the dome of the diaphragm to the symphysis pubis without oral contrast. 100 mL of IV Isovue-370 was administered. Sagittal and coronal images were reconstructed. Individualized dose optimization techniques were used for this CT. COMPARISON: CT of the abdomen and pelvis dated 01/15/2019. FINDINGS: The visualized lung bases are unremarkable. The visualized portions of the heart are within normal limits. There is localized fatty infiltration of the liver near the falciform ligament. The liver otherwise has a normal appearance. Normal gallbladder and extrahepatic biliary system. Normal spleen. Normal pancreas. Normal bilateral adrenal glands. Normal right kidney. Normal left kidney. Normal visualized stomach. Normal small intestine. Normal colon. The appendix is visualized and appears normal. Normal abdominal aorta. Normal inferior vena cava. Normal retroperitoneum. Normal urinary bladder. There is an exophytic rounded pedunculated mass arising from the fundus of the uterus measuring approximately 4.3 x 4.1 x 4.2 cm. This is probably a leiomyoma. There is a small umbilical hernia containing fat. There is abnormal increased attenuation within the superficial soft tissues of the medial left buttock probably secondary to infection. This appears to be left perianal abscess measuring 2.1 cm in size with air locules of gas. Normal osseous structures. CT/Abdomen/Pelvis W IV Cont ONLY IMPRESSION: Left perianal abscess with associated more diffuse soft tissue inflammation and infection involving the medial left buttock. Electronically Signed: Tasha Eric MD at 4:19 EDT , Service support ,
[2021-04-25 03:11] LABS: Absolute Lymphocyte Count 0.89 X10^3/uL (0.83-4.51); Absolute Neutrophil Count 7.8 X10^3/uL (2.0-7.7); Basophil# 0.03 X10^3/uL; Basophil% 0.3 % (0-1); Eosinophil# 0.06 X10^3/uL; Eosinophils% 0.6 % (0-5); Hemoglobin 12.9 g/dL (12.0-15.0); Lymphocyte # 0.89 X10^3/ul (0.83-4.51); Lymphocyte % 9.2 % (19-41); Mean Corp Hgb Conc 33.1 g/dL (32-36); Mean Corpuscular Hgb 28.9 pg (27.0-32.0); Mean Corpuscular Volume 87.2 fL (81-99); Mean Platelet Vol. 10.6 fl (6.2-12.0); Monocyte# 0.75 X10^3/uL; Monocyte% 7.8 % (0-10); NRBC Flagged by Analyzer 0 % (0-5); Platelet Count 208 K/mm3 (150-450); RBC Distribution Width SD 38.6 fl (35.1-43.9); Red Blood Count 4.47 M/mm3 (4.2-5.4); White Blood Count 9.6 K/mm3 (4.4-11.0)
[2021-04-25] MEDS: Morphine 4 MG/ML Syringe IV (03:16)
[2021-04-25] MEDS: Ondansetron 4 MG/2 ML Vial IV (03:16)
[2021-04-25] MEDS: 0.9% Normal Saline 1,000 ML 999 ML IV (03:17)
[2021-04-25 03:39] LABS: International Normalized Ratio 1.1; Prothrombin Time (Protime)PT. 13.7 SECONDS (11.7-14.9)
[2021-04-25 03:40] LABS: Partial Thromboplast Time 30.9 Seconds (24.1-36.2)
[2021-04-25 03:46] LABS: ALB/GLOB Ratio 0.7 RATIO (0.9-2.4); AST(SGOT) 14 U/L (15-37); Alanine Aminotransfer ALT/SGPT 24 U/L (13-56); Albumin, Serum 2.7 g/dL (3.2-5.0); Alkaline Phosphatase 108 U/L (45-117); Anion Gap 9 (5-15); BUN 15 mg/dL (7-18); BUN/Creat Ratio 19.5 RATIO (10-20); Calcium,Total 8.3 mg/dL (8.5-10.1); Chloride 103 mmol/L (98-107); Creatinine, Serum 0.77 mg/dL (0.55-1.02); EST Glomerular Filtration Rate 88 mL/min (>60); Est Glom Filt Rate - Afr Amer 107 mL/min (>60); Estimated Creatinine Clearance 97.97 ml/min; Globulin 3.8 g/dL (2.2-4.2); Glucose 297 mg/dL (74-106); Potassium 4.1 mmol/L (3.5-5.1); Protein, Total 6.5 g/dL (6.4-8.2); Sodium Level 135 mmol/L (136-145)
[2021-04-25 03:51] LABS: Lactic Acid 1.1 mmol/L (0.4-1.9)
[2021-04-25 04:55] LABS: Mucous, Urine 0 SEEN /hpf (<or=2+)
[2021-04-25 04:57] LABS: Color, Urine Yellow (Yellow); Glucose, Dipstick 1000 mg/dl (Normal); Leukocyte Esterase-Dipstick 100 /ul (Negative); Nitrite-Dipstick Negative (Negative); Occult Blood-Urine 25 /ul (Negative); Protein-Dipstick 30 mg/dl (Negative); Urine Bilirubin Dipstick Negative (Negative); Urine Clarity Clear (Clear); Urine Urobilinogen Normal (Normal); Urine pH 6.5 (5.0 - 8.0)
[2021-04-25 05:02] LABS: Ketone-Dipstick 150 mg/dl (Negative)
[2021-04-25 05:14] LABS: Red Blood Cells-Urine 0-5 SEEN /hpf (0-5); White Blood Cells 10-25 SEEN /hpf (0-5)
[2021-04-25 05:15] LABS: Bacteria RARE /hpf (None Seen); Squamous Epithelial Cells - UA 5-10 SEEN /hpf (5-10)
[2021-04-25 05:16] LABS: Yeast-Urine RARE /hpf (None Seen)
[2021-04-25] MEDS: fentaNYL 100 MCG/2 ML Ampul 25 MCG IV (05:30)
--- NOTE | 2021-04-25 06:37 | EDS_ITS ---
HPI History of Present Illness Chief Complaint: Nausea/Vomiting Narrative Narrative: Patient presenting with nausea/vomiting. She states that she previously was seen twice. Initially she had cellulitis on her left perianal region. On return she was found to have an abscess here. This was incised and drained and packed. Patient now experiencing nausea and vomiting. She has not had a fever. She states that the pain from her abscess is much worse. The packing is still in and they did not pull this out. She has not been doing any sits baths. She is on Bactrim and Keflex. [facility] Medical History Diabetes Home Medications cephalexin 500 mg PO 4X/DAY 10 Days #40 cap 04/21/21 [Rx Last Taken Unknown] hydrocodone-acetaminophen 1 tab PO Q4H PRN PRN 2 Days #10 tablet 04/23/21 [Rx Last Taken Unknown] insulin glargine [Basaglar KwikPen U-100 Insulin] 32 unit SUBCUT BID 04/23/21 [History Last Taken Unknown] insulin lispro [Humalog KwikPen Insulin] 22 unit SUBCUT TID 04/23/21 [History Last Taken Unknown] sulfamethoxazole-trimethoprim [Bactrim DS] 1 tab PO BID #14 tab 04/23/21 [Rx Last Taken Unknown] Allergy/AdvReac Type Severity Reaction Status Date / Time metformin AdvReac Other Verified 04/25/21 02:50 morphine AdvReac Other Verified 04/25/21 03:17 Surgical History H/O: Social History Smoking Status: Never smoker ROS ROS ED Constitutional Constitutional ED: Denies chills, fever(s) or subjective Eyes Eyes: Denies blurry vision or change in vision ENT ENT ED: Denies ear pain or rhinorrhea Cardiovascular Cardiovascular: Denies chest pain or palpitations Respiratory/Chest Respiratory/Chest: Denies cough or dyspnea Gastrointestinal Gastrointestinal: Reports nausea and vomiting Genitourinary Genitourinary ED: Denies dysuria or hematuria Musculoskeletal Musculoskeletal: Denies arthralgias or myalgias Integumentary Reports abscess Neurologic Neurologic: Denies headache(s) or weakness Psychiatric Psychiatric: Denies anxiety or depression EXAM Physical Exam Const Vital Signs: 04/25/21 02:53 04/25/21 03:27 04/25/21 04:41 Temperature 98.9 F Temperature Source Oral Pulse Rate 113 H 102 H Respiratory Rate 20 H 18 Blood Pressure 168/92 H 137/87 H Blood Pressure Mean 117 103 Pulse Ox 98 96 Oxygen Delivery Method Room Air Room Air Room Air 04/25/21 05:07 04/25/21 05:08 04/25/21 06:07 Temperature 98.7 F 98.7 F Temperature Source Oral Oral Pulse Rate 105 H 105 H 98 Respiratory Rate 16 16 14 Blood Pressure 136/82 H 136/82 H 132/82 H Blood Pressure Mean 100 100 98 Pulse Ox 96 96 94 Oxygen Delivery Method Room Air Room Air Room Air 04/25/21 06:09 Temperature 98.7 F Temperature Source Oral Pulse Rate 98 Respiratory Rate 14 Blood Pressure 132/82 H Blood Pressure Mean 98 Pulse Ox 94 Oxygen Delivery Method Room Air Positive well nourished General Appearance ED: NAD HEENT atraumatic Eyes PERRL and EOMs intact bilaterally Resp clear to auscultation bilaterally Resp Narrative: Tachypneic on arrival Cardio regular rhythm Rate: tachycardic GI normal to inspection, nondistended, normoactive bowel sounds Palpation: soft Narrative: Perianal abscess with packing centrally. Is very tender to palpation. Neuro oriented x3 Sensorium / Orientation: alert Psych mental status grossly normal Skin no jaundice MDM MDM MDM Narrative Medical decision making narrative: Patient presenting with nausea and vomiting and worsening pain from her abscess on the left gluteal fold. Patient was tac hycardic and tachypneic on arrival therefore sepsis lab work was ordered. Patient had EKG performed on arrival which is sinus rhythm at 100 bpm without signs of ischemic change. Chest x-ray is interpreted by myself shows no acute cardiopulmonary process and the radiologist does agree. Lab work shows her white blood cell count is 9.6 which is not a significant change. Hemoglobin hematocrit stable. Renal function electrolytes are normal. Glucose is elevated at 297 however she has no anion gap. LFTs are normal. Troponin is negative. PT/INR normal. Lactic acid is normal. CT of the abdomen pelvis shows persistent left perianal abscess as well as more cellulitic change. I spoke with Dr. Brice regarding the failure of outpatient antibiotics and failure of incision and drainage. She states that she will come in and take the patient to the OR for drainage. Patient was given fentanyl for pain and Zofran for nausea. She is given IV fluids. Lab Data Labs: Laboratory Results - last 24 hr 04/25/21 04/25/21 04/25/21 03:05 03:05 03:20 WBC 9.6 RBC 4.47 Hgb 12.9 Hct 39.0 MCV 87.2 MCH 28.9 MCHC 33.1 RDW Std Deviation 38.6 RDW Coeff of Meet 12.0 Plt Count 208 MPV 10.6 Immature Gran % (Auto) 1.100 H Neut % (Auto) 81.0 H Lymph % (Auto) 9.2 L Mcnairy % (Auto) 7.8 Eos % (Auto) 0.6 Baso % (Auto) 0.3 Absolute Neuts (auto) 7.8 H Absolute Lymphs (auto) 0.89 Nucleated RBC % 0 PT 13.7 INR 1.1 APTT 30.9 Sodium 135 L Potassium 4.1 Chloride 103 Carbon Dioxide 23.0 Anion Gap 9 BUN 15 Creatinine 0.77 Estim Creat Clear Calc 97.97 Est GFR (MDRD) Af Amer 107 Est GFR (MDRD) Non-Af 88 BUN/Creatinine Ratio 19.5 Glucose 297 H Lactic Acid Calcium 8.3 L Total Bilirubin 0.40 AST 14 L ALT 24 Alkaline Phosphatase 108 Troponin I < 0.015 Total Protein 6.5 Albumin 2.7 L Globulin 3.8 Albumin/Globulin Ratio 0.7 L Urine Color Urine Clarity Urine pH Ur Specific [place] Urine Protein Urine Glucose (UA) Urine Ketones Urine Occult Blood Urine Nitrite Urine Bilirubin Urine Urobilinogen Ur Leukocyte Esterase Urine RBC Urine WBC Ur Squamous Epith Cells Urine Bacteria Urine Mucus Urine Yeast 04/25/21 04/25/21 03:20 04:44 WBC RBC Hgb Hct MCV MCH MCHC RDW Std Deviation RDW Coeff of Meet Plt Count MPV Immature Gran % (Auto) Neut % (Auto) Lymph % (Auto) Mcnairy % (Auto) Eos % (Auto) Baso % (Auto) Absolute Neuts (auto) Absolute Lymphs (auto) Nucleated RBC % PT INR APTT Sodium Potassium Chloride Carbon Dioxide Anion Gap BUN Creatinine Estim Creat Clear Calc Est GFR (MDRD) Af Amer Est GFR (MDRD) Non-Af BUN/Creatinine Ratio Glucose Lactic Acid 1.1 Calcium Total Bilirubin AST ALT Alkaline Phosphatase Troponin I Total Protein Albumin Globulin Albumin/Globulin Ratio Urine Color Yellow Urine Clarity Clear Urine pH 6.5 Ur Specific [place] 1.010 Urine Protein 30 H Urine Glucose (UA) 1000 H Urine Ketones 150 A* Urine Occult Blood 25 H Urine Nitrite Negative Urine Bilirubin Negative Urine Urobilinogen Normal Ur Leukocyte Esterase 100 H Urine RBC 0-5 SEEN Urine WBC 10-25 SEEN Ur Squamous Epith Cells 5-10 SEEN Urine Bacteria RARE Urine Mucus 0 SEEN Urine Yeast RARE Radiography Diagnostic Testing: Radiology Impression Chest X-Ray 04/25/21 03:04 IMPRESSION: No radiographic evidence of acute cardiopulmonary disease. Electronically Signed: Tasha Eric MD at 4:01 EDT , Service support , Abdomen/Pelvis CT 04/25/21 03:05 IMPRESSION: Left perianal abscess with associated more diffuse soft tissue inflammation and infection involving the medial left buttock. Electronically Signed: Tasha Eric MD at 4:19 EDT , Service support , Discharge Plan Triage Chief Complaint: Nausea/Vomiting ED Provider: Tyron Anaya Dx/Rx/DC Orders Prescriptions: No Action cephalexin 500 mg capsule 500 mg PO 4X/DAY 10 Days Qty: 40 RF: 0 insulin lispro [Humalog KwikPen Insulin] 100 unit/mL insulin pen 22 unit SUBCUT TID RF: 0 Basaglar KwikPen U-100 Insulin 100 unit/mL (3 mL) insulin pen 32 unit SUBCUT BID RF: 0 hydrocodone-acetaminophen 5-325 mg tablet 1 tab PO Q4H PRN PRN (Reason: Pain) 2 Days Qty: 10 RF: 0 sulfamethoxazole-trimethoprim [Bactrim DS] 800-160 mg tablet 1 tab PO BID Qty: 14 RF: 0 Primary Care Provider: Shakira Mathur
[2021-04-25] MEDS: fentaNYL 100 MCG/2 ML Ampul 50 MCG IV (08:18)
--- NOTE | 2021-04-25 09:02 | PCM.HP.BLA ---
History and Physical Date of Admission: 04/25/21 Chief Complaint: buttock abscess History of Present Illness: 40 y/o WF insulin diabetic presents with left buttock abscess. She had presented to ED earlier this week x 2 for same problems Underwent stab incision two days ago with wick still in place, states that area is enlarging and therefore presents to ED again. Multiple CT scans show decrease in size of abscess, but with undrained area deep in the soft tissues given patient's body habitus with BMI >30. Will plan large I&D under anesthesia. Past Medical History: diabetes Past Surgical History: I&D of leg abscess csection tubes tied Medications: insulin Allergies: metformin, morphine Social history: TOB use denies Review of Systems: General - denies fevers Cardiovascular denies chest pain Pulmonary denies shortness of breath, denies coughing up blood Gastrointestinal denies fecal incontinence Neurological , denies seizures, denies history of stroke Genitourinary denies burning with urination, denies blood in urine Hematological denies spontaneous/prolonged bleeding Skin sse HPI Musculoskeletal denies history of fractures Endocrine has diabetes, last HgbA1c around 7 Psychological denies hallucinations Physical examination: Vital signs Temp 98.6 BP 116/81 General WD/WN WF in no apparent distress, alert and oriented, not septic appearing Head Normocephalic. Eyes EOM intact with sclera clear and no icterus noted. Neck is supple with no jugular venous distention noted. Trachea is midline. Lungs normal respiratory excursion, no adventitial sounds noted No labored breathing noted, such as retractions. No cough heard. Heart regular. Abdomen soft and benign, protuberant Extremities no pitting edema noted. No obvious deformity noted. Genitourinary/Rectal deferred Skin left buttock with swelling/erythema tenderness with perianal opening - small stab incision with wick inplace. Neurological non focal Psychological normal affect, patient is calm and appropriate Impression: left buttock abscess DIscussion/Plan: I have discussed the above with the patient. I have offered the patient the procedure of incision and drainage of left buttock abscess I have explained the procedure to the patient. I have counseled the patient as to the risks of the procedure, including but not limited to: infection, bleeding, injury to any blood vessels/nerves, scar tissue, cosmetic deformity, continued infection given not optimal control of diabetes, complications of anesthesia, etc. the patient understands. The patient was offered a surgery/procedure. The provider and patient have discussed in detail the risk of exposure to and/or potential harm posed by the COVID-19 virus with having a surgery/procedure at this time versus the risk of delaying the surgery/procedure. It is not possible to know either the risk of delaying the surgery or procedure or chance of getting an infection with perfect accuracy, but a joint decision was made between the patient and the provider to proceed at this time with the scheduled surgery/procedure. She wishes to proceed I have answered all questions to the patient?s satisfaction and the patient has no further questions.
[2021-04-25] MEDS: Bupiv/Epi 0.25% 30 ML Vial (10:33)
--- NOTE | 2021-04-25 10:54 | PCM.OPRPT ---
Report of Operation Date of Procedure: 04/25/21 Pre-Operative Diagnosis: left buttock abscess Post-Operative Diagnosis: left buttock abscess Surgery/Procedure Performed:: incision and drainage of left buttock abscess Description of Surgical Findings:: extensive left buttock abscess Surgeon: Marleny Brice Type of Anesthesia: General Specimen's removed: aerobic cultures Drains: none Estimated Blood Loss (mL): < 10 ml Fluids Replaced: 500 ml RL Description of Procedure: After informed consent was given, the patient was brought to the Operating Room. Appropriate time out protocol was followed. She was then placed on the operating room table in the supine position. General anesthesia was then administered by the anesthesia provider. She was then positioned in the modified lithotomy position with appropriate padding to all pressured areas. The patient?s perineum and buttocks were then prepped with a surgical skin preparation and sterile surgical drapes were placed. The skin and subcutaneous tissues in and around the lesion (left buttock area) were then infiltrated with 0.25% xylocaine with epinephrine. The abscess cavity was palpated posterior to the previous stab incision site that was made at [facility] ED. At the site of the most prominent swelling a skin incision was then made with a 15 blade scalpel. This radial incision was carried down through to the subcutaneous tissues. Any hemorrhage was controlled with electrocautery. There was a large amount of purulent fluid that emanated and was drained. Culture sticks were obtained of this fluid. Blunt dissection was then done to breakdown the loculations of the abscessed cavity. The abscessed cavity extended in a circumferential fashion around the perianal area of the left buttock approximately 16 cm. It then extended deeply into the tissues approximately 12 cm. The radial incision that was made was extended laterally (about 10 cm). The cavity also extended to the previous stab incision site that was made in the ED a few years ago - once again, this was anterior. This stab incision site was enlarged in a cruciate fashion to provide better drainage. Hemostasis was achieved by electrocautery. The cavity was vigorously irrigated with hydrogen peroxide solution. The cavity was densely packed with saline/betadyne soaked gauze. A proper sterile dressing was applied. The patient tolerated the procedure well and was brought to the Recovery Room in stable condition. Complications none noted
[2021-04-25] MEDS: Ketorolac 30 MG/ML Syringe IV (11:10)
[2021-04-25 11:20] LABS: Bedside Glucose 214 mg/dL (70-110)
--- NOTE | 2021-04-25 12:09 | DCINST_ITS ---
Discharge Instructions Follow Up Care Test Results: Test results from this visit will be discussed in further detail at your follow-up appointment, if applicable. Discharge Plan Admission Attending Provider: Marleny Brice Primary Care Provider: Shakira Mathur Instructions Patient Instructions: Exercise to Manage Your Blood Sugar, Diabetes: Shopping for and Preparing Meals, Diabetes: The Benefits of Exercise, Diabetes: Activity Tips, A1C Additional Instructions / Restrictions: Recommended pain control regimen - May take 600 mg ibuprofen (Motrin) and then in 3-4 hours, may take 650 mg acetaminophen (Tylenol), then in 3-4 hours may take 600 mg ibuprofen, then in 3- 4 hours may take 650 mg acetaminophen and so on for 2-3 days May take narcotic pain medication for pain that is not controlled by above and at night for comfort through the night. You have been prescribed additional narcotics but understand that addiction may occur. Leave dressings in place, there will be fluid leakage and bleeding from these dressings, this is normal as this is an awkward location to place a dressing. You can apply clean clothes over this area to soak up the additional fluid. Use old clothing or sheets because leakage/staining will occur. Do not remove or change the dressing as this will definitely cause bleeding and then you will have to go to the ED to repack the wound. Sponge bathe only. Please come to my office on April 28, at 8:00 If you have any major concerns/problems, you can go to the ER Discharge Orders/Prescriptions Prescriptions: New hydrocodone-acetaminophen 5-325 mg tablet 1 tab PO Q8H 5 Days Qty: 15 RF: 0 No Action cephalexin 500 mg capsule 500 mg PO 4X/DAY 10 Days Qty: 40 RF: 0 insulin lispro [Humalog KwikPen Insulin] 100 unit/mL insulin pen 22 unit SUBCUT TID RF: 0 Basaglar KwikPen U-100 Insulin 100 unit/mL (3 mL) insulin pen 32 unit SUBCUT BID RF: 0 hydrocodone-acetaminophen 5-325 mg tablet 1 tab PO Q4H PRN PRN (Reason: Pain) 2 Days Qty: 10 RF: 0 sulfamethoxazole-trimethoprim [Bactrim DS] 800-160 mg tablet 1 tab PO BID Qty: 14 RF: 0 Referrals / Follow Up: Shakira Mathur MD [Primary Care Provider] - Disposition Discharge Orders: Discharge Patient (Routine); Ordered 04/25/21 Ordered By: Dr. Marleny Brice
== END 2021-04-25 13:06 ==
LOC: ED 03:53 → SDC 09:23 → AC 09:26
PROVIDERS: Emergency Provider Student in an Organized Health Care Education/Training Program; PCP Family Medicine; Visit Provider Surgery
PROC: (CPT 10061; principal; 2021-04-25 09:30)
DX: L02.31 Cutaneous abscess of buttock (principal); R11.2 Nausea with vomiting, unspecified; E11.9 Type 2 diabetes mellitus without complications; Z79.4 Long term (current) use of insulin; Z88.5 Allergy status to narcotic agent; K62.89 Other specified diseases of anus and rectum
CPT/HCPCS: 10061; 36415; 71045; 74177; 80053; 81001; 82962; 83605; 84484; 85025; 85610; 85730; 87040; 87070; 87075; 87077; 87086; 87088; 87186; 87205; 87426; 93005; 99285; J7030; J7050; J7120; A4216; J2405

== ENCOUNTER 2021-05-01 15:19 | Inpatient (IN) | payer MEDICAID, SELFPAY ==
[2021-04-25 08:32] VITALS: BMI 31.4
[2021-05-01] VITALS (10 sets, daily range): BP systolic 112–186; BP diastolic 70–101; PULSE 95–124; RESP 8–20; TEMP 36.4–36.8; O2SAT 93–100; BMI 28.8; BMI 30.7
--- NOTE | 2021-05-01 | ABS_PTH ---
PATIENT: TRICE ZAMBRANO LOC: [facility] U#:[id number] AGE/SX: 40/F ROOM: ICU01 RE05/01/[address]: Dr. Dawson Jimenez MD : [id number] BED: 1 DIS: 05/03/2021 SPEC #: [id number] RECD: 05/04/21 07:28 STATUS: DARREL REKenneth #: [id number] ALEXANDREA: 05/01/21 00:[address]: Dawson Jimenez DEPT: SURGICAL PATHOLOGY RECD BY: Alok Llamas ENTERED: 05/04/21 08:07 SP TYPE: Abscess OTHR DR: MD Dr. Yvette Jay MD Tissues: Buttock, NOS Procedures: Surgery Specimen Level III HEADER OPERATION: Extensive incision and drainage of perirectal necrotizing fasciitis PRE-OP DIAGNOSIS: Necrotizing fasciitis left buttock abscess TISSUE SUBMITTED: Incision and drainage of perirectal necrotizing fasciitis of left buttocks MICROSCOPIC DIAGNOSIS Skin and soft tissue of left buttocks, excision: Ulceration with associated acute and chronic inflammation consistent with abscess formation. Granulation. AM:perry 05/05/2021 MICROSCOPIC DESCRIPTION Slides are reviewed. GROSS DESCRIPTION Received in fixative is one container labeled with the patient's name and designated perirectal tissue. The specimen consists of two irregular fragments. One fragment consists of unremarkable skin measuring 6.2 x 4.5 x 1 cm. The other fragment consists of liz-yellow fibrofatty tissue measuring 6 x 3.5 x 2 cm. Serial sections do not reveal mass lesions. [employer] sections are submitted in two cassettes. / AM:perry 05/04/21 TC:2 CPT: 80902
--- NOTE | 2021-05-01 15:38 | EX.ED.DYSGE1 ---
HPI History of Present Illness Chief Complaint: Abscess Detail of Chief Complaint: Abscess to perineum and left buttock x2 weeks Informant: patient and spouse/S.O. Narrative Narrative: Patient presents to the emergency department with a abscess I was initially diagnosed to the perineum 2 weeks ago. Patient initially started on antibiotics but had to come back in and was sedated and had an incision and drainage in the ED. Patient initially felt better but then started developing worsening infection and was seen by Dr. Marleny Brice the general surgeon who took her to the OR and performed I&D. Patient was seen for a follow-up visit today and noted to have worsening of infection and referred to the emergency department. Patient denies any fever. Patient states that her blood sugars have been running a little bit high despite her insulin and she knew that that meant there were still significant infection. Patient has a history of abscesses. Patient just finished her Bactrim and Keflex today. Prior similar symptoms: Yes PFSH PFSH Medical History Current use of insulin Diabetes Home Medications hydrocodone-acetaminophen 1 tab PO Q4H PRN PRN 2 Days #10 tablet 04/23/21 [Rx Last Taken Unknown] insulin glargine [Basaglar KwikPen U-100 Insulin] 32 unit SUBCUT BID 04/23/21 [History Last Taken Unknown] insulin lispro [Humalog KwikPen Insulin] 22 unit SUBCUT TID 04/23/21 [History Last Taken Unknown] Allergy/AdvReac Type Severity Reaction Status Date / Time metformin AdvReac Other Verified 05/01/21 15:23 morphine AdvReac Other Verified 05/01/21 15:23 Surgical History H/O: S/P tubal ligation Social History Smoking Status: Never smoker ROS ROS ED Constitutional Constitutional ED: Reports systems reviewed and no addt'l complaints, except as documented; Denies body ache(s), change in weight or chills Eyes Eyes: Denies acute decrease in peripheral vision, change in vision, double vision or loss of vision ENT ENT ED: Reports none; Denies ear pain, lip swelling, loss taste/smell, neck pain, otalgia or sore throat Cardiovascular Cardiovascular: Reports none; Denies abdominal pain, chest pain with activity, leg edema, lightheadedness, palpitations, rapid heart rate or syncope Respiratory/Chest Respiratory/Chest: Reports none; Denies change in mental status, dry cough, dyspnea, hemoptysis, shortness of breath at rest or shortness of breath with exertion Gastrointestinal Gastrointestinal: Reports none; Denies abdominal pain, change in stool character, diarrhea, hematemesis, hematochezia, melena, rectal bleeding or vomiting Genitourinary Genitourinary ED: Reports none; Denies abdominal discomfort, anuria, dysuria, genital pain or polyuria Musculoskeletal Musculoskeletal: Reports none; Denies arthralgias, back pain, difficulty walking, extremity pain, muscle weakness or myalgias Integumentary Reports none, abscess and other Details: Abscess to perineum and left buttock ; Denies rash Neurologic Neurologic: Reports none; Denies abnormal gait, confusion, focal weakness, frequent falls, headache(s), loss of vision, numbness, paresthesias, radicular pain, vertigo or weakness Psychiatric Psychiatric: Reports systems reviewed and no addt'l complaints, except as documented and none; Denies behavioral changes, confusion, difficulty concentrating, hallucinations, suicidal ideation, tactile hallucinations or visual hallucinations Endocrine Endocrinology: Denies none, cold intolerance, excessive sweating, fatigue or heat intolerance Hematologic/Lymphatic Hematologic/Lymphatic: Reports none; Denies anemia, easy bleeding or easy bruising Allergic/Immunologic Allergic/Immunologic ED: Denies as per HPI, none, lip swelling, mouth swelling, throat swelling, tongue swelling or hives EXAM Physical Exam Const Vital Signs: 05/01/21 15:20 05/01/21 16:29 05/01/21 17:36 Temperature 97.6 F L 97.6 F L 98.0 F Temperature Source Temporal Temporal Oral Pulse Rate 124 H 100 102 H Respiratory Rate 20 H 18 17 Blood Pressure 186/74 H 159/92 H 162/88 H Blood Pressure Mean 111 114 112 Pulse Ox 97 100 99 Oxygen Delivery Method Room Air Room Air Room Air Positive well nourished and well developed General Appearance ED: well developed and NAD HEENT Reports TM's clear and moist mucous membranes normocephalic and atraumatic; Negative for trauma or tenderness Tympanic Membrane ED: Yes TM's clear Eyes PERRL and EOMs intact bilaterally General Eye ED: Negative for pale conjunctiva or scleral icterus Neck no lymphadenopathy, supple and no JVD General: Negative for tenderness Chest Wall inspection of chest normal and palpation of chest normal Chest: Negative for tenderness Resp normal respiratory effort and clear to auscultation bilaterally Effort and Inspection: Negative for respiratory distress or pain with movement Auscultation: Negative for rhonchi, wheezes or diminished lung sounds Cardio regular rate, regular rhythm, S1 normal heart sound, S2 normal heart sound and no murmurs Peripheral Pulses: pulses 2+ throughout GI normal to inspection, nondistended, normoactive bowel sounds, soft to palpation, non-tender, non-distended and no masses GI Narrative: Patient does have erythema noted along the medial aspect of the left buttock with a small wound measuring approximately 2 cm in length that has some packing extruding from it. Patient has diffuse tenderness and really exam is limited because of the amount of discomfort patient is having. Back/Spine no CVA tenderness and no thoracic nor lumbar tenderness Extremity normal to inspection General Extremety ED: Negative for edema General Extremity: Negative for edema Neuro oriented x3, CN's II-XII intact bilaterally, no sensory deficits noted and gait normal Sensorium / Orientation: awake, alert, oriented to person, oriented to place and oriented to time Motor Exam: strength 5/5 throughout and strength abnormal Psych mental status grossly normal Skin no rashes or lesions noted and no wounds MDM MDM MDM Narrative Medical decision making narrative: Patient case discussed with Dr. Marleny Brice who referred the patient to the ER. I discussed case with Dr. Dawson Jimenez as well. Patient immediately was started on vancomycin and Zosyn on arrival in the emergency department. Dr. Jimenez will take patient to the OR for further I&D. Lab Data Attestation: I reviewed the patient's lab results. Labs: Laboratory Results - last 24 hr 05/01/21 05/01/21 05/01/21 15:45 15:45 15:45 WBC 11.3 H RBC 4.07 L Hgb 11.7 L Hct 35.1 L MCV 86.2 MCH 28.7 MCHC 33.3 RDW Std Deviation 36.4 RDW Coeff of Meet 11.6 Plt Count 335 MPV 9.1 Immature Gran % (Auto) 1.100 H Neut % (Auto) 79.7 H Lymph % (Auto) 12.8 L [place] % (Auto) 5.7 Eos % (Auto) 0.3 Baso % (Auto) 0.4 Absolute Neuts (auto) 9.0 H Absolute Lymphs (auto) 1.44 Nucleated RBC % 0 Sodium 134 L Potassium 4.0 Chloride 99 Carbon Dioxide 26.0 Anion Gap 9 BUN 8 Creatinine 0.74 Estim Creat Clear Calc 101.94 Est GFR (MDRD) Af Amer 111 Est GFR (MDRD) Non-Af 92 BUN/Creatinine Ratio 10.8 Glucose 206 H Lactic Acid 1.7 Calcium 8.9 Radiography Diagnostic Testing: Radiology Impression Pelvis CT 05/01/21 16:02 IMPRESSION: Cellulitis of the medial aspect left buttock but resolution of perirectal abscess. Electronically Signed: Jose Valadez MD at 17:26 EDT Tel , Service support , Discharge Plan Dx/Rx/DC Orders Clinical Impression: Cellulitis, Cutaneous abscess of perineum Disposition Disposition: Acute Care [facility] Discharge Date/Time: 05/01/21 17:38
[2021-05-01 15:56] LABS: Absolute Lymphocyte Count 1.44 X10^3/uL (0.83-4.51); Basophil# 0.05 X10^3/uL; Basophil% 0.4 % (0-1); Eosinophil# 0.03 X10^3/uL; Eosinophils% 0.3 % (0-5); Hematocrit 35.1 % (37-47); Hemoglobin 11.7 g/dL (12.0-15.0); Lymphocyte # 1.44 X10^3/ul (0.83-4.51); Lymphocyte % 12.8 % (19-41); Mean Corp Hgb Conc 33.3 g/dL (32-36); Mean Corpuscular Hgb 28.7 pg (27.0-32.0); Mean Corpuscular Volume 86.2 fL (81-99); Mean Platelet Vol. 9.1 fl (6.2-12.0); Monocyte# 0.64 X10^3/uL; Monocyte% 5.7 % (0-10); NRBC Flagged by Analyzer 0 % (0-5); Neutrophil # 8.99 X10^3/uL (2.7-7.7); Neutrophil % 79.7 % (47-70); Platelet Count 335 K/mm3 (150-450); RBC Distribution Width CV 11.6 % (11.6-14.6); RBC Distribution Width SD 36.4 fl (35.1-43.9); Red Blood Count 4.07 M/mm3 (4.2-5.4); White Blood Count 11.3 K/mm3 (4.4-11.0)
--- NOTE | 2021-05-01 16:02 | CT_ITS ---
STUDY: CT PELVIS WITH CONTRAST REASON FOR EXAM: Female, 40 years old. abscess, pelvic pain RADIATION DOSAGE (If Supplied By Facility): CTDIvol = ( 28.05 ) mGy, DLP = ( 1299.88 ) mGycm TECHNIQUE: Transaxial imaging of the pelvis was performed without oral contrast. IV 100mL Isovue-300 was administered intravenously. Individualized dose optimization techniques were used for this CT. COMPARISON: 04/25/2021 FINDINGS: Normal urinary bladder. Normal visualized small intestine. Normal visualized colon. There is no pelvic fluid. There is no pelvic lymphadenopathy or mass lesion. Normal visualized pelvic arteries. There is skin thickening, edema of the subcutaneous fat, and bubbles of subcutaneous emphysema within the medial aspect of the left buttock consistent with cellulitis but no loculated fluid collection to suggest abscess. Normal osseous structures. CT/Pelvis WITH IV Contrast IMPRESSION: Cellulitis of the medial aspect left buttock but resolution of perirectal abscess. Electronically Signed: Jose Valadez MD at 17:26 EDT Tel , Service support ,
[2021-05-01 16:09] LABS: Anion Gap 9 (5-15); BUN 8 mg/dL (7-18); BUN/Creat Ratio 10.8 RATIO (10-20); Calcium,Total 8.9 mg/dL (8.5-10.1); Chloride 99 mmol/L (98-107); Creatinine, Serum 0.74 mg/dL (0.55-1.02); EST Glomerular Filtration Rate 92 mL/min (>60); Est Glom Filt Rate - Afr Amer 111 mL/min (>60); Estimated Creatinine Clearance 101.94 ml/min; Glucose 206 mg/dL (74-106); Sodium Level 134 mmol/L (136-145)
[2021-05-01 16:31] LABS: Lactic Acid 1.7 mmol/L (0.4-1.9)
[2021-05-01] MEDS: Ondansetron 4 MG/2 ML Vial IV ×2 (16:34→20:44)
[2021-05-01] MEDS: HYDROmorphone 1 MG/ML Syringe IV (16:34)
--- NOTE | 2021-05-01 16:44 | EX.PCM.CON.S ---
Assessment & Plan Assessment/Plan (1) Cutaneous abscess of perineum: (2) Cellulitis: QUALIFIERS: Site of cellulitis: buttock Qualified Code(s): L03.317 - Cellulitis of buttock (3) Sepsis: QUALIFIERS: Sepsis acute organ dysfunction status: unspecified Sepsis type: sepsis due to unspecified organism Qualified Code(s): A41.9 - Sepsis, unspecified organism PLAN: Patient is going to have blood cultures. CAT scan is going to be obtained to show the extent of infection. I told her that this is probably going to have to require significant debridement of the area. I am concerned that we may be dealing with some form of necrotizing fasciitis at this point. In addition I have told him this may require more than 1 operation. I emphasized the severity of her infection. They are willing to proceed. HPI Consult Data Date of Consult: 05/01/21 HPI Narrative HPI Narrative: TRICE ZAMBRANO, is a 40 F who presents to the emergency department with a abscess I was initially diagnosed to the perineum 2 weeks ago. Patient initially started on antibiotics but had to come back in and was sedated and had an incision and drainage in the ED. Patient initially felt better but then started developing worsening infection and was seen by Dr. Marleny Brice the general surgeon who took her to the OR and performed I&D. Patient was seen for a follow-up visit today and noted to have worsening of infection and referred to the emergency department. Patient denies any fever. Patient states that her blood sugars have been running a little bit high despite her insulin and she knew that that meant there were still significant infection. Patient has a history of abscesses. Patient just finished her Bactrim and Keflex today. Prior similar symptoms: Yes [facility] Medical History Current use of insulin Diabetes Home Medications hydrocodone-acetaminophen 1 tab PO Q4H PRN PRN 2 Days #10 tablet 04/23/21 [Rx Last Taken Unknown] insulin glargine [Basaglar KwikPen U-100 Insulin] 32 unit SUBCUT BID 04/23/21 [History Last Taken Unknown] insulin lispro [Humalog KwikPen Insulin] 22 unit SUBCUT TID 04/23/21 [History Last Taken Unknown] Allergy/AdvReac Type Severity Reaction Status Date / Time metformin AdvReac Other Verified 05/01/21 15:23 morphine AdvReac Other Verified 05/01/21 15:23 Surgical History H/O: S/P tubal ligation Social History Smoking Status: Never smoker ROS Eyes Eyes: Reports systems reviewed and no addt'l complaints, except as documented ENT HEENT: Reports systems reviewed and no addt'l complaints, except as documented Cardiovascular Cardiovascular: Denies chest pain Respiratory/Chest Respiratory/Chest: Denies cough or dyspnea Gastrointestinal Gastrointestinal: Reports systems reviewed and no addt'l complaints, except as documented Integumentary Integumentary: Reports systems reviewed and no addt'l complaints, except as documented Physical Exam Const oriented x3 General Appearance: cooperative and ill appearing Nutritional Appearance: obese Eyes PERRL and EOMs intact bilaterally Resp clear to auscultation bilaterally Cardio Rate: regular rate and tachycardic Extremity Extremity Narrative: Left buttocks cellulitis extending up as well as down towards the labia foul-smelling purulent fluid coming out. Lab / Micro Data Result Diagrams: 05/01/21 15:45 05/01/21 15:45 Labs: Laboratory Results - last 24 hr 05/01/21 05/01/21 05/01/21 15:45 15:45 15:45 WBC 11.3 H RBC 4.07 L Hgb 11.7 L Hct 35.1 L MCV 86.2 MCH 28.7 MCHC 33.3 RDW Std Deviation 36.4 RDW Coeff of Meet 11.6 Plt Count 335 MPV 9.1 Immature Gran % (Auto) 1.100 H Neut % (Auto) 79.7 H Lymph % (Auto) 12.8 L [place] % (Auto) 5.7 Eos % (Auto) 0.3 Baso % (Auto) 0.4 Absolute Neuts (auto) 9.0 H Absolute Lymphs (auto) 1.44 Nucleated RBC % 0 Sodium 134 L Potassium 4.0 Chloride 99 Carbon Dioxide 26.0 Anion Gap 9 BUN 8 Creatinine 0.74 Estim Creat Clear Calc 101.94 Est GFR (MDRD) Af Amer 111 Est GFR (MDRD) Non-Af 92 BUN/Creatinine Ratio 10.8 Glucose 206 H Lactic Acid 1.7 Calcium 8.9
--- NOTE | 2021-05-01 17:03 | PCM.PN.HOSP ---
Subjective Subjective This is a 40 years old female patient presented to the emergency room because of worsening pain of the perineal region after she had incision and drainage for left buttock and perineum abscess that was diagnosed 2 weeks ago, underwent incision and drainage few days ago. Patient had incision and drainage performed on April 25, 2021 and she was discharged home Keflex and Bactrim. She felt okay for a couple of days and then she started having the increasing pain and drainage. She denied fever or chills. At this time, she is afebrile, tachycardic, blood pressure slightly elevated, pulse ox is 97% on room air. Objective Data Objective Data Vital Signs: Vital Signs Temp Pulse Resp BP Pulse Ox 97.6 F L 100 18 159/92 H 100 05/01/21 16:29 05/01/21 16:29 05/01/21 16:29 05/01/21 16:29 05/01/21 16:29 Oxygen Delivery Method Room Air Weight: 190 lb Body Mass Index (BMI) 28.8 Lab / Micro Data Result Diagrams: 05/01/21 15:45 05/01/21 15:45 Labs: Laboratory Results - last 24 hr 05/01/21 05/01/21 05/01/21 15:45 15:45 15:45 WBC 11.3 H RBC 4.07 L Hgb 11.7 L Hct 35.1 L MCV 86.2 MCH 28.7 MCHC 33.3 RDW Std Deviation 36.4 RDW Coeff of Meet 11.6 Plt Count 335 MPV 9.1 Immature Gran % (Auto) 1.100 H Neut % (Auto) 79.7 H Lymph % (Auto) 12.8 L [place] % (Auto) 5.7 Eos % (Auto) 0.3 Baso % (Auto) 0.4 Absolute Neuts (auto) 9.0 H Absolute Lymphs (auto) 1.44 Nucleated RBC % 0 Sodium 134 L Potassium 4.0 Chloride 99 Carbon Dioxide 26.0 Anion Gap 9 BUN 8 Creatinine 0.74 Estim Creat Clear Calc 101.94 Est GFR (MDRD) Af Amer 111 Est GFR (MDRD) Non-Af 92 BUN/Creatinine Ratio 10.8 Glucose 206 H Lactic Acid 1.7 Calcium 8.9 Physical Exam Const alert, oriented x3, no apparent distress and no limitations General Appearance: cooperative HEENT normocephalic, head/scalp atraumatic, external ears normal, external nose normal and moist oral mucous membranes Head and Scalp: normocephalic Eyes PERRL, EOMs intact bilaterally, conjunctivae normal and no scleral icterus General Eye: normal appearance of both eyes Neck no lymphadenopathy, supple, no meningeal signs, no JVD and no carotid bruits Lymph Lymphatic: no lymphadenopathy noted Resp normal respiratory effort, normal air movement and clear to auscultation bilaterally Auscultation: Negative for crackles, rales, rhonchi or wheezes Cardio regular rate, regular rhythm, S1 normal heart sound, S2 normal heart sound, no murmurs and no JVD Cardio Narrative: Tachycardia. GI normal to inspection, nondistended, normoactive bowel sounds, soft to palpation, non-tender and non-distended; Negative for hepatosplenomegaly Extremity normal to inspection, full ROM and no clubbing, cyanosis or edema Skin no rashes or lesions noted and no petechiae Skin Narrative: Left buttock/perineal wound, dressed. Neuro oriented x3, CN's II-XII intact bilaterally and moves all extremities Sensorium / Orientation: alert Speech: speech normal Motor Exam: strength 5/5 throughout Psych mental status grossly normal and affect normal Appearance: appropriate Assessment & Plan Assessment/Plan (1) Sepsis: QUALIFIERS: Sepsis type: sepsis due to unspecified organism Sepsis acute organ dysfunction status: unspecified Qualified Code(s): A41.9 - Sepsis, unspecified organism (2) Cellulitis: QUALIFIERS: Site of cellulitis: buttock Qualified Code(s): L03.317 - Cellulitis of buttock (3) Cutaneous abscess of perineum: (4) Diabetes mellitus type 1: PLAN: This is a 40 years old female patient presented to the medicine because of recurrent left buttock/perineal infection/abscess not seeing this patient for medical management. #1 sepsis/recurrent left gluteal/renal cellulitis/abscess: Status post recent surgical drainage as outpatient, was on Keflex and Bactrim for few days. Currently, she is afebrile, tachycardic, blood pressures elevated, pulse ox is maintained on room air. Routine blood work was remarkable for mild leukocytosis, otherwise normal. Lactic acid was normal. She was started on IV Zosyn in the ED. CT scan pelvis done, awaiting the results. Patient will be admitted under general surgery. Plan for surgery tomorrow. She will need IV fluids, blood culture, urine culture, IV pain medications, antiemetics, repeat CBC and BMP tomorrow morning. #2 type 1 diabetes mellitus: Hemoglobin A1c was 10.8% on November,. Plan: ADA diet, Accu-Cheks every 6 hours, insulin scale, check hemoglobin A1c, continue home doses of glargine twice daily and Humalog 3 times daily. #3 elevated blood pressure: Not on any antihypertensive medications. Likely because of pain and sepsis. Plan for IV adenosine as needed. #4 DVT prophylaxis: SCDs. This note was generated with [employer] dictation software. It may contain incorrect words, spelling, and punctuation that were not noted in checking the note before signing. Charges/Coding Visit Charges Inpatient E&M: 46660 Subs Hosp L2
[2021-05-01 18:10] LABS: Bedside Glucose 149 mg/dL (70-110)
[2021-05-01 19:15] LABS: Hemoglobin A1c 11.7 % (3.8-5.6)
[2021-05-01] MEDS: BUPIVACAINE LIPOSOME/PF 20 ML VIAL OPERA.SITE (19:45)
--- NOTE | 2021-05-01 20:10 | OP.PCM_ITS ---
Problems Associated Problem List Diagnoses (1) Necrotizing fasciitis: (2) Sepsis: (3) Cutaneous abscess of perineum: Report of Operation Date of Procedure: 05/01/21 Pre-Operative Diagnosis: 1. Necrotizing fasciitis 2. Cellulitis with abscess of buttocks Post-Operative Diagnosis: Same Surgery/Procedure Performed:: Extensive debridement of necrotizing fasciitis to buttocks Surgeon: Dawson Jimenez carbon accountant: Pankaj Han Type of Anesthesia: General Anesthesiologist: [place] Esquivel Specimen's removed: Skin and tissue from buttocks Estimated Blood Loss (mL): < 50 cc Description of Procedure: Patient was brought into the operating room. Placed in the supine position. Under endotracheal intubation legs were placed up in stirrups a Mckeon catheter was placed the buttocks and perineal area was sterilely prepped and draped. Patient had 2 previous incisions that were very close to the anus they were in a longitudinal fashion extending from the anus outward. Purulent material was draining from this and copious amounts. As I stuck my finger in this area it tracked under the skin in a cephalad direction as well as laterally to the buttocks and thigh area. I removed all of the skin. The wound itself was 10 cm x 15 cm. The wound tracked up the ischio rectal fossa area I had to remove a lot of fat that was in this area. Once I had the wound completely open I used the argon beam to obtain good hemostasis. I injected Exparel 30 cc in total all around the wound. I then packed this wound with a Betadine soaked Kerlix. Sterile dressings were applied. She tolerated the procedure well. She was extubated and transferred to the intensive care unit secondary to her being hypotensive. This is a complex wound that is going to be very difficult. My thought process in this area I do not think that this is going to be an area where the wound VAC is going to be able to be placed even if we did a diverting colostomy. We are going to have to do wet-to-dry dressing changes and is going to take quite a bit of time for this to heal. Admit VTE Documentation VTE Present on Admission: No VTE Mechan Device Prophylaxis: SCD's VTE Pharm Prophylaxis ordered?: No Reason prophylaxis not ordered:: Treatment Not Indicated
[2021-05-01] MEDS: HYDROmorphone 0.5 MG/0.5 ML SYRINGE IV ×3 (20:43→23:00)
[2021-05-01] MEDS: 0.9% Normal Saline 1,000 ML 100 ML IV (21:00)
[2021-05-01] MEDS: oxyCODONE 5 MG Tablet PO (21:12)
[2021-05-02] VITALS (25 sets, daily range): BP systolic 95–137; BP diastolic 53–79; PULSE 84–115; RESP 9–26; TEMP 36.2–36.8; O2SAT 83–100
[2021-05-02 01:06] LABS: Bedside Glucose 188 mg/dL (70-110)
[2021-05-02] MEDS: oxyCODONE 5 MG Tablet PO ×2 (01:09→07:40)
[2021-05-02 01:15] LABS: Bedside Glucose 140 mg/dL (70-110)
[2021-05-02] MEDS: HYDROmorphone 0.5 MG/0.5 ML SYRINGE IV ×2 (04:13→08:47)
[2021-05-02 04:15] LABS: Absolute Lymphocyte Count 2.03 X10^3/uL (0.83-4.51); Absolute Neutrophil Count 9.3 X10^3/uL (2.0-7.7); Basophil# 0.03 X10^3/uL; Basophil% 0.2 % (0-1); Eosinophil# 0.06 X10^3/uL; Eosinophils% 0.5 % (0-5); Hematocrit 30.2 % (37-47); Hemoglobin 9.8 g/dL (12.0-15.0); Lymphocyte # 2.03 X10^3/ul (0.83-4.51); Lymphocyte % 16.5 % (19-41); Mean Corp Hgb Conc 32.5 g/dL (32-36); Mean Corpuscular Hgb 28.8 pg (27.0-32.0); Mean Corpuscular Volume 88.8 fL (81-99); Mean Platelet Vol. 8.9 fl (6.2-12.0); Monocyte# 0.81 X10^3/uL; Monocyte% 6.6 % (0-10); NRBC Flagged by Analyzer 0 % (0-5); Neutrophil # 9.28 X10^3/uL (2.7-7.7); Neutrophil % 75.4 % (47-70); Platelet Count 288 K/mm3 (150-450); RBC Distribution Width CV 11.9 % (11.6-14.6); RBC Distribution Width SD 38.4 fl (35.1-43.9); White Blood Count 12.3 K/mm3 (4.4-11.0)
[2021-05-02 04:29] LABS: Anion Gap 4 (5-15); BUN 8 mg/dL (7-18); BUN/Creat Ratio 11.9 RATIO (10-20); Calcium,Total 7.9 mg/dL (8.5-10.1); Chloride 105 mmol/L (98-107); Creatinine, Serum 0.67 mg/dL (0.55-1.02); EST Glomerular Filtration Rate 103 mL/min (>60); Est Glom Filt Rate - Afr Amer 125 mL/min (>60); Estimated Creatinine Clearance 112.59 ml/min; Glucose 129 mg/dL (74-106); Potassium 3.9 mmol/L (3.5-5.1); Sodium Level 138 mmol/L (136-145)
[2021-05-02] MEDS: HYDROmorphone 1 MG/ML Syringe IV ×3 (06:11→21:39)
[2021-05-02] MEDS: Ondansetron 4 MG/2 ML Vial IV (06:24)
[2021-05-02 06:26] LABS: Bedside Glucose 86 mg/dL (70-110)
[2021-05-02] MEDS: 0.9% Normal Saline 1,000 ML 100 ML IV ×2 (07:23→21:16)
--- NOTE | 2021-05-02 07:36 | PCM.PN.HOSP ---
Subjective Subjective Patient seen and examined. Denies fever or chills. Patient had dressing change done. Started on [employer]IATE pump. Objective Data Objective Data Vital Signs: Vital Signs Temp Pulse Resp BP Pulse Ox 97.7 F L 90 12 110/76 98 05/02/21 06:00 05/02/21 07:00 05/02/21 07:00 05/02/21 07:00 05/02/21 07:00 Oxygen Flow Rate (L/min) 1 Oxygen Delivery Method Nasal Cannula Weight: 92.986 kg Body Mass Index (BMI) 30.7 Intake & Output: Intake and Output for Last 24 Hours 04/30/21 05/01/21 05/02/21 23:59 23:59 23:59 Intake Total 995 / 995 1090 / 1090 Output Total 1800 / 1800 250 / 250 Balance -805 / -805 840 / 840 Lab / Micro Data Result Diagrams: 05/02/21 04:10 05/02/21 04:10 Labs: Laboratory Results - last 24 hr 05/01/21 05/01/21 05/01/21 15:45 15:45 15:45 WBC 11.3 H RBC 4.07 L Hgb 11.7 L Hct 35.1 L MCV 86.2 MCH 28.7 MCHC 33.3 RDW Std Deviation 36.4 RDW Coeff of Meet 11.6 Plt Count 335 MPV 9.1 Immature Gran % (Auto) 1.100 H Neut % (Auto) 79.7 H Lymph % (Auto) 12.8 L [place] % (Auto) 5.7 Eos % (Auto) 0.3 Baso % (Auto) 0.4 Absolute Neuts (auto) 9.0 H Absolute Lymphs (auto) 1.44 Nucleated RBC % 0 Sodium 134 L Potassium 4.0 Chloride 99 Carbon Dioxide 26.0 Anion Gap 9 BUN 8 Creatinine 0.74 Estim Creat Clear Calc 101.94 Est GFR (MDRD) Af Amer 111 Est GFR (MDRD) Non-Af 92 BUN/Creatinine Ratio 10.8 Glucose 206 H Hemoglobin A1c Lactic Acid 1.7 Calcium 8.9 POC Glucose 05/01/21 05/01/21 05/01/21 15:45 18:04 22:23 WBC RBC Hgb Hct MCV MCH MCHC RDW Std Deviation RDW Coeff of Meet Plt Count MPV Immature Gran % (Auto) Neut % (Auto) Lymph % (Auto) [place] % (Auto) Eos % (Auto) Baso % (Auto) Absolute Neuts (auto) Absolute Lymphs (auto) Nucleated RBC % Sodium Potassium Chloride Carbon Dioxide Anion Gap BUN Creatinine Estim Creat Clear Calc Est GFR (MDRD) Af Amer Est GFR (MDRD) Non-Af BUN/Creatinine Ratio Glucose Hemoglobin A1c 11.7 H Lactic Acid Calcium POC Glucose 149 H 188 H 05/02/21 05/02/21 05/02/21 01:08 04:10 04:10 WBC 12.3 H RBC 3.40 L Hgb 9.8 L Hct 30.2 L MCV 88.8 MCH 28.8 MCHC 32.5 RDW Std Deviation 38.4 RDW Coeff of Meet 11.9 Plt Count 288 MPV 8.9 Immature Gran % (Auto) 0.800 Neut % (Auto) 75.4 H Lymph % (Auto) 16.5 L [place] % (Auto) 6.6 Eos % (Auto) 0.5 Baso % (Auto) 0.2 Absolute Neuts (auto) 9.3 H Absolute Lymphs (auto) 2.03 Nucleated RBC % 0 Sodium 138 Potassium 3.9 Chloride 105 Carbon Dioxide 29.0 Anion Gap 4 L BUN 8 Creatinine 0.67 Estim Creat Clear Calc 112.59 Est GFR (MDRD) Af Amer 125 Est GFR (MDRD) Non-Af 103 BUN/Creatinine Ratio 11.9 Glucose 129 H Hemoglobin A1c Lactic Acid Calcium 7.9 L POC Glucose 140 H 05/02/21 06:18 WBC RBC Hgb Hct MCV MCH MCHC RDW Std Deviation RDW Coeff of Meet Plt Count MPV Immature Gran % (Auto) Neut % (Auto) Lymph % (Auto) [place] % (Auto) Eos % (Auto) Baso % (Auto) Absolute Neuts (auto) Absolute Lymphs (auto) Nucleated RBC % Sodium Potassium Chloride Carbon Dioxide Anion Gap BUN Creatinine Estim Creat Clear Calc Est GFR (MDRD) Af Amer Est GFR (MDRD) Non-Af BUN/Creatinine Ratio Glucose Hemoglobin A1c Lactic Acid Calcium POC Glucose 86 Micro: Microbiology 05/01/21 17:22 Mucosa - Nose SARS-CoV-2 Antigen (Rapid) - Final Radiography Diagnostic Testing: Radiology Impression Pelvis CT 05/01/21 16:02 IMPRESSION: Cellulitis of the medial aspect left buttock but resolution of perirectal abscess. Electronically Signed: Jose Valadez MD at 17:26 EDT Tel , Service support , Physical Exam Narrative Physical exam: General: Alert, oriented x3, cooperative, No apparent distress, well developed, on 2 L of oxygen HEENT: Atraumatic Oral: Moist Mucosa Neck: Supple Lungs: Diminished at lung bases Cardiovascular: HS I+II, regular, no murmurs Abdomen: Bowel Sounds Present, Soft, Non Tender Extremities: No edema Assessment & Plan Assessment/Plan (1) Necrotizing fasciitis: (2) Sepsis: QUALIFIERS: Sepsis acute organ dysfunction status: unspecified Sepsis type: sepsis due to unspecified organism Qualified Code(s): A41.9 - Sepsis, unspecified organism (3) Cellulitis: QUALIFIERS: Site of cellulitis: buttock Qualified Code(s): L03.317 - Cellulitis of buttock (4) Diabetes mellitus type 1: QUALIFIERS: Diabetes mellitus complication status: with other specified complication Qualified Code(s): E10.69 - Type 1 diabetes mellitus with other specified complication PLAN: 1. Sepsis secondary to acute left gluteal abscess status post recent surgical drainage Failed outpatient therapy, concerning for possible necrotizing fasciitis Status post I&D emergently on 05/01/21 Continue on IV Zosyn, clindamycin, vancomycin Continue per general surgery recommendations with regards to wound 2. Hypoxia, postop, will continue to wean off oxygen 3. Postop hypotension, transient, blood pressure improved 4. Type I DM, HbA1c 11.7, continue on hime insulin regimen, ISS and accuchecks Charges/Coding Visit Charges Inpatient E&M: 27402 Subs Hosp L3
--- NOTE | 2021-05-02 08:26 | PCM.RX.CS ---
Consult Pharmacy has been consulted to manage selected antiobiotic: Vancomycin Type of Consult: New start Suspected Infection: Skin/Soft tissue, Other - NECROTIZING FASCIITIS Labs: Sodium 138 mmol/L (136-145) 05/02/21 04:10 Potassium 3.9 mmol/L (3.5-5.1) 05/02/21 04:10 Chloride 105 mmol/L (98-107) 05/02/21 04:10 Carbon Dioxide 29.0 mmol/L (21.0-32.0) 05/02/21 04:10 Anion Gap 4 (5-15) L 05/02/21 04:10 BUN 8 mg/dL (7-18) 05/02/21 04:10 Creatinine 0.67 mg/dL (0.55-1.02) 05/02/21 04:10 Est GFR (MDRD) Af Amer 125 mL/min (>60) 05/02/21 04:10 Est GFR (MDRD) Non-Af 103 mL/min (>60) 05/02/21 04:10 BUN/Creatinine Ratio 11.9 RATIO (10-20) 05/02/21 04:10 Glucose 129 mg/dL (74-106) H 05/02/21 04:10 Microbiology: Microbiology 05/01/21 17:22 Mucosa - Nose SARS-CoV-2 Antigen (Rapid) - Final Goal Trough: 15-20 mcg/mL Pharmacy Plan for Drug Dosing: NEW START IV VANCOMYCIN Consulting Physician: JS Indication: CELLULITIS/NECROTIZING FASCIITIS Goal Trough: 15-20 SrCr: 0.67 CrCl: 112 ML/MIN Comments: ER DOSE OF 1250MG GIVEN 05/01 @ 1724 Vancomycin Dose: 1000MG Q8H PER POLICY. WILL GET A TROUGH PRIOR TO 4TH DOSE OF NEW REGIMEN SINCE LAST DOSE WAS >12 HOURS AGO. Pending Level: 05/03/21 @ 0783 Pharmacy Service will continue to monitor and adjust dosing as required.
[2021-05-02] MEDS: Insulin Lispro 100 UNIT/ML INSULN.PEN 22 UNIT SC ×3 (09:20→16:44)
[2021-05-02 09:25] LABS: Bedside Glucose 178 mg/dL (70-110)
[2021-05-02] MEDS: Vancomycin IV 1,000 MG/200 ML BAG 200 MG IV ×2 (09:47→16:25)
--- NOTE | 2021-05-02 11:08 | PN.SURG_ITS ---
Subjective Subjective Patient relatively pain-free when she is resting. Any movement causes significant amounts of discomfort. Objective Data Objective Data Packing was changed by myself. We gave her 2 mg of Dilaudid but it was not nearly enough to control her discomfort and she is going to need more pain medication in order to have a proper dressing change. There was not a lot of blood on the dressing that was changed. Eschar is noted from obtaining good hemostasis. Vital Signs: Vital Signs Temp Pulse Resp BP Pulse Ox 97.7 F L 90 12 110/76 83 05/02/21 06:00 05/02/21 07:00 05/02/21 07:00 05/02/21 07:00 05/02/21 08:00 Oxygen Flow Rate (L/min) 1 Oxygen Delivery Method Room Air Weight: 204 lb 15.984 oz Body Mass Index (BMI) 30.7 Intake & Output: Intake and Output for Last 24 Hours 04/30/21 05/01/21 05/02/21 23:59 23:59 23:59 Intake Total 995 / 995 1544 / 1544 Output Total 1800 / 1800 250 / 250 Balance -805 / -805 1294 / 1294 Lab / Micro Data Result Diagrams: 05/02/21 04:10 05/02/21 04:10 Labs: Laboratory Results - last 24 hr 05/01/21 05/01/21 05/01/21 15:45 15:45 15:45 WBC 11.3 H RBC 4.07 L Hgb 11.7 L Hct 35.1 L MCV 86.2 MCH 28.7 MCHC 33.3 RDW Std Deviation 36.4 RDW Coeff of Meet 11.6 Plt Count 335 MPV 9.1 Immature Gran % (Auto) 1.100 H Neut % (Auto) 79.7 H Lymph % (Auto) 12.8 L [place] % (Auto) 5.7 Eos % (Auto) 0.3 Baso % (Auto) 0.4 Absolute Neuts (auto) 9.0 H Absolute Lymphs (auto) 1.44 Nucleated RBC % 0 Sodium 134 L Potassium 4.0 Chloride 99 Carbon Dioxide 26.0 Anion Gap 9 BUN 8 Creatinine 0.74 Estim Creat Clear Calc 101.94 Est GFR (MDRD) Af Amer 111 Est GFR (MDRD) Non-Af 92 BUN/Creatinine Ratio 10.8 Glucose 206 H Hemoglobin A1c Lactic Acid 1.7 Calcium 8.9 POC Glucose 05/01/21 05/01/21 05/01/21 15:45 18:04 22:23 WBC RBC Hgb Hct MCV MCH MCHC RDW Std Deviation RDW Coeff of Meet Plt Count MPV Immature Gran % (Auto) Neut % (Auto) Lymph % (Auto) [place] % (Auto) Eos % (Auto) Baso % (Auto) Absolute Neuts (auto) Absolute Lymphs (auto) Nucleated RBC % Sodium Potassium Chloride Carbon Dioxide Anion Gap BUN Creatinine Estim Creat Clear Calc Est GFR (MDRD) Af Amer Est GFR (MDRD) Non-Af BUN/Creatinine Ratio Glucose Hemoglobin A1c 11.7 H Lactic Acid Calcium POC Glucose 149 H 188 H 05/02/21 05/02/21 05/02/21 01:08 04:10 04:10 WBC 12.3 H RBC 3.40 L Hgb 9.8 L Hct 30.2 L MCV 88.8 MCH 28.8 MCHC 32.5 RDW Std Deviation 38.4 RDW Coeff of Meet 11.9 Plt Count 288 MPV 8.9 Immature Gran % (Auto) 0.800 Neut % (Auto) 75.4 H Lymph % (Auto) 16.5 L [place] % (Auto) 6.6 Eos % (Auto) 0.5 Baso % (Auto) 0.2 Absolute Neuts (auto) 9.3 H Absolute Lymphs (auto) 2.03 Nucleated RBC % 0 Sodium 138 Potassium 3.9 Chloride 105 Carbon Dioxide 29.0 Anion Gap 4 L BUN 8 Creatinine 0.67 Estim Creat Clear Calc 112.59 Est GFR (MDRD) Af Amer 125 Est GFR (MDRD) Non-Af 103 BUN/Creatinine Ratio 11.9 Glucose 129 H Hemoglobin A1c Lactic Acid Calcium 7.9 L POC Glucose 140 H 05/02/21 05/02/21 06:18 09:19 WBC RBC Hgb Hct MCV MCH MCHC RDW Std Deviation RDW Coeff of Meet Plt Count MPV Immature Gran % (Auto) Neut % (Auto) Lymph % (Auto) [place] % (Auto) Eos % (Auto) Baso % (Auto) Absolute Neuts (auto) Absolute Lymphs (auto) Nucleated RBC % Sodium Potassium Chloride Carbon Dioxide Anion Gap BUN Creatinine Estim Creat Clear Calc Est GFR (MDRD) Af Amer Est GFR (MDRD) Non-Af BUN/Creatinine Ratio Glucose Hemoglobin A1c Lactic Acid Calcium POC Glucose 86 178 H Micro: Microbiology 05/01/21 Unknown Wound Abcess - Buttock Wound Culture - Preliminary Gram positive organism 05/01/21 17:22 Mucosa - Nose SARS-CoV-2 Antigen (Rapid) - Final Radiography Diagnostic Testing: Radiology Impression Pelvis CT 05/01/21 16:02 IMPRESSION: Cellulitis of the medial aspect left buttock but resolution of perirectal abscess. Electronically Signed: Jose Valadez MD at 17:26 EDT Tel , Service support , Assessment & Plan Assessment/Plan (1) Necrotizing fasciitis: PLAN: Do not believe she is appropriate to be sent to the floor today. We will change to a Dilaudid SOFT TILE SETTER hopefully this will get her better controlled so that she can ambulate. And hopefully will be able to do better dressing changes on her. I am going to consult Dr. Delgado to evaluate her to see if there are further surgeries that she can undergo. If she is only going to have to have dressing changes it would be nice not to give her a colostomy and hopefully she will just be able to have her dressing changes each and every time she has a bowel movement. That would be the best case scenario. However if we have a problems with stool soilage into the wound she may need to have an ileostomy. I am not sure that something that we should do here. If her pain has not significantly improved by tomorrow I am going to repeat a CT scan of her pelvis to see if there are any undrained pockets. I do not think that that was the case at the end of my case yesterday.
[2021-05-02] MEDS: Ketorolac 30 MG/ML Syringe IV ×2 (11:09→21:17)
[2021-05-02] MEDS: HYDROmorphone PCA 0.2 MG/ML 100 ML BAG 20 MG IV (11:39)
[2021-05-02 11:55] LABS: Bedside Glucose 121 mg/dL (70-110)
--- NOTE | 2021-05-02 13:30 | CASEMGMT ---
WINNIE DAVID Assessment: Face to Face with pt for initial transition planning/care coordination assessment. RN JOANN introduced self and role at [facility], pt voices understanding and consents to assessment. Pt is A/O x4 and answers all questions appropriately at this time. Pt lying in bed in no distress. Care providers, pharmacy, and demographics verified/updated. Admitting Dx: necrotizing fascitis PCP: Kevan Specialists: Tonysurgeon Rahul [facility]acy: [facility] Insurance: [employer] Prescription Benefit: yes LW/HPOA: Pt denies having LW/DPOA. LNOK: Damaso Edwards, ; Froylan, son 19 y/o, Viviane, dtr 17 y/o Living Arrangements: Pt lives in a 4000 square foot area above the [place], which pt owns. Pt states there are 16 steps to get into the home but then it is all one level. Pt lives with and 2 children see above. Pt reports being I in ADL's and denies concerns at home. Transportation: Pt drives self and denies concerns with transportation. DME/HHC/SNF: Pt has no DME in the home, no hx of HHC or SNF stays. Pt to have wound care upon dc. Pt states her works interactive multimedia designer but he is able to do wound care in between work hours. Pt son has no interest in performing wound care, but dtr would be willing. Discussed with pt the option of having a HHC nurse upon dc, but she would have to have an able and willing caregiver. Pt agreeable to [facility] but wants to see how she is at time of dc. Pt will need scripts for supplies at d/c. Pt states no further concerns/needs. CM to follow. Advised pt to ask CM if any further question/concerns/needs arise, voices understanding. Pt Goal: Home with HHC SN and family support Plan: Home with HHC SN and family support
[2021-05-02] MEDS: Enoxaparin 40 MG/0.4 ML Syringe SC (14:38)
[2021-05-02] MEDS: Glucerna Shake 120 ML LIQUID PO ×2 (14:39→16:25)
[2021-05-02] MEDS: Docusate Sodium 100 MG Capsule PO (14:44)
[2021-05-02 15:11] LABS: Bedside Glucose 94 mg/dL (70-110)
[2021-05-02 16:41] LABS: Bedside Glucose 90 mg/dL (70-110)
--- NOTE | 2021-05-02 16:48 | CASEMGMT ---
Patient was provided a list of C providers including quality and resource use data and consistent with the patient?s preferred geographic region, medical needs, and insurance network. Pt to review list and CM to check back.
[2021-05-02 18:21] LABS: Bedside Glucose 96 mg/dL (70-110)
[2021-05-02 23:01] LABS: Bedside Glucose 89 mg/dL (70-110)
[2021-05-03] VITALS (13 sets, daily range): BP systolic 112–138; BP diastolic 62–84; PULSE 104–125; RESP 10–18; TEMP 36.2–38.3; O2SAT 92–100
[2021-05-03] MEDS: Vancomycin IV 1,000 MG/200 ML BAG 200 MG IV ×2 (00:37→09:13)
--- NOTE | 2021-05-03 00:40 | NURSING ---
AIR HOSE COUPLER Dilaudid pump alarming, unable to silence, no indication as to what alarm reason is. Replaced batteries and powered pump back on, verified settings as per orders; pump appears to be functioning correctly now. Pt able to demonstrate appropriate use and presses dose demand button.
[2021-05-03] MEDS: HYDROmorphone PCA 0.2 MG/ML 100 ML BAG 20 MG IV (01:30)
[2021-05-03 05:04] LABS: Absolute Lymphocyte Count 0.98 X10^3/uL (0.83-4.51); Absolute Neutrophil Count 8.8 X10^3/uL (2.0-7.7); Basophil# 0.03 X10^3/uL; Basophil% 0.3 % (0-1); Eosinophil# 0.14 X10^3/uL; Eosinophils% 1.3 % (0-5); Hemoglobin 10.8 g/dL (12.0-15.0); Lymphocyte # 0.98 X10^3/ul (0.83-4.51); Lymphocyte % 9.3 % (19-41); Mean Corp Hgb Conc 31.8 g/dL (32-36); Mean Corpuscular Hgb 28.9 pg (27.0-32.0); Mean Corpuscular Volume 90.9 fL (81-99); Mean Platelet Vol. 8.8 fl (6.2-12.0); Monocyte# 0.46 X10^3/uL; Monocyte% 4.4 % (0-10); NRBC Flagged by Analyzer 0 % (0-5); Neutrophil # 8.82 X10^3/uL (2.7-7.7); Neutrophil % 83.6 % (47-70); Platelet Count 315 K/mm3 (150-450); RBC Distribution Width CV 12.1 % (11.6-14.6); RBC Distribution Width SD 40.2 fl (35.1-43.9); Red Blood Count 3.74 M/mm3 (4.2-5.4); White Blood Count 10.6 K/mm3 (4.4-11.0)
[2021-05-03 05:20] LABS: ALB/GLOB Ratio 0.5 RATIO (0.9-2.4); AST(SGOT) 14 U/L (15-37); Alanine Aminotransfer ALT/SGPT 19 U/L (13-56); Albumin, Serum 2.3 g/dL (3.2-5.0); Alkaline Phosphatase 96 U/L (45-117); Anion Gap 5 (5-15); BUN 11 mg/dL (7-18); BUN/Creat Ratio 13.7 RATIO (10-20); Calcium,Total 8.4 mg/dL (8.5-10.1); Chloride 102 mmol/L (98-107); EST Glomerular Filtration Rate 84 mL/min (>60); Est Glom Filt Rate - Afr Amer 101 mL/min (>60); Globulin 4.2 g/dL (2.2-4.2); Glucose 115 mg/dL (74-106); Potassium 4.1 mmol/L (3.5-5.1); Protein, Total 6.5 g/dL (6.4-8.2); Sodium Level 137 mmol/L (136-145)
[2021-05-03 07:50] LABS: Bedside Glucose 122 mg/dL (70-110)
--- NOTE | 2021-05-03 08:13 | PN.HOSP_ITS ---
Subjective Subjective Patient was seen and examined. Her pain medications were increased on a CAPACITOR TESTER pump. She remained tachycardic. She had low-grade fevers overnight. Objective Data Objective Data Vital Signs: Vital Signs Temp Pulse Resp BP Pulse Ox 98 F 114 H 18 123/76 H 99 05/03/21 07:00 05/03/21 07:00 05/03/21 07:00 05/03/21 07:00 05/03/21 07:00 Oxygen Flow Rate (L/min) 1 Oxygen Delivery Method Nasal Cannula Weight: 95.6 kg Body Mass Index (BMI) 30.7 Intake & Output: Intake and Output for Last 24 Hours 05/01/21 05/02/21 05/03/21 23:59 23:59 23:59 Intake Total 995 / 995 4858.67 / 5058.67 1088.33 / 1088.33 Output Total 1800 / 1800 1000 / 1650 650 / 650 Balance -805 / -805 3858.67 / 3408.67 438.33 / 438.33 Lab / Micro Data Result Diagrams: 05/03/21 04:55 05/03/21 04:55 Labs: Laboratory Results - last 24 hr 05/02/21 05/02/21 05/02/21 09:19 11:43 14:53 WBC RBC Hgb Hct MCV MCH MCHC RDW Std Deviation RDW Coeff of Meet Plt Count MPV Immature Gran % (Auto) Neut % (Auto) Lymph % (Auto) [place] % (Auto) Eos % (Auto) Baso % (Auto) Absolute Neuts (auto) Absolute Lymphs (auto) Nucleated RBC % Sodium Potassium Chloride Carbon Dioxide Anion Gap BUN Creatinine Estim Creat Clear Calc Est GFR (MDRD) Af Amer Est GFR (MDRD) Non-Af BUN/Creatinine Ratio Glucose Calcium Total Bilirubin AST ALT Alkaline Phosphatase Total Protein Albumin Globulin Albumin/Globulin Ratio POC Glucose 178 H 121 H 94 05/02/21 05/02/21 05/02/21 16:23 17:53 22:47 WBC RBC Hgb Hct MCV MCH MCHC RDW Std Deviation RDW Coeff of Meet Plt Count MPV Immature Gran % (Auto) Neut % (Auto) Lymph % (Auto) [place] % (Auto) Eos % (Auto) Baso % (Auto) Absolute Neuts (auto) Absolute Lymphs (auto) Nucleated RBC % Sodium Potassium Chloride Carbon Dioxide Anion Gap BUN Creatinine Estim Creat Clear Calc Est GFR (MDRD) Af Amer Est GFR (MDRD) Non-Af BUN/Creatinine Ratio Glucose Calcium Total Bilirubin AST ALT Alkaline Phosphatase Total Protein Albumin Globulin Albumin/Globulin Ratio POC Glucose 90 96 89 05/03/21 05/03/21 05/03/21 04:55 04:55 07:47 WBC 10.6 RBC 3.74 L Hgb 10.8 L Hct 34.0 L MCV 90.9 MCH 28.9 MCHC 31.8 L RDW Std Deviation 40.2 RDW Coeff of Meet 12.1 Plt Count 315 MPV 8.8 Immature Gran % (Auto) 1.100 H Neut % (Auto) 83.6 H Lymph % (Auto) 9.3 L [place] % (Auto) 4.4 Eos % (Auto) 1.3 Baso % (Auto) 0.3 Absolute Neuts (auto) 8.8 H Absolute Lymphs (auto) 0.98 Nucleated RBC % 0 Sodium 137 Potassium 4.1 Chloride 102 Carbon Dioxide 30.0 Anion Gap 5 BUN 11 Creatinine 0.80 Estim Creat Clear Calc 94.30 Est GFR (MDRD) Af Amer 101 Est GFR (MDRD) Non-Af 84 BUN/Creatinine Ratio 13.7 Glucose 115 H Calcium 8.4 L Total Bilirubin 0.60 AST 14 L ALT 19 Alkaline Phosphatase 96 Total Protein 6.5 Albumin 2.3 L Globulin 4.2 Albumin/Globulin Ratio 0.5 L POC Glucose 122 H Micro: Microbiology 05/01/21 Unknown Wound Abcess - Buttock Gram Stain - Final 05/01/21 Unknown Wound Abcess - Buttock Wound Culture - Preliminary GPC Poss Enterococcus sp Gram negative afshan Coag Negative Staph 05/01/21 17:22 Mucosa - Nose SARS-CoV-2 Antigen (Rapid) - Final Physical Exam Narrative Physical exam: General: Alert, oriented x3, cooperative, No apparent distress, well developed, on 2 L of oxygen HEENT: Atraumatic Oral: Moist Mucosa Neck: Supple Lungs: Diminished at lung bases Cardiovascular: HS I+II, regular, no murmurs Abdomen: Bowel Sounds Present, Soft, Non Tender Extremities: No edema Assessment & Plan Assessment/Plan (1) Necrotizing fasciitis: (2) Sepsis: QUALIFIERS: Sepsis acute organ dysfunction status: unspecified Sepsis type: sepsis due to unspecified organism Qualified Code(s): A41.9 - Sepsis, unspecified organism (3) Cellulitis: QUALIFIERS: Site of cellulitis: buttock Qualified Code(s): L03.317 - Cellulitis of buttock (4) Diabetes mellitus type 1: QUALIFIERS: Diabetes mellitus complication status: with other specified complication Qualified Code(s): E10.69 - Type 1 diabetes mellitus with other specified complication PLAN: 1. Sepsis secondary to acute left gluteal abscess, concerning for acute/worsening necrotizing fasciitis Status post recent surgical drainage on 04/25/21 Failed outpatient therapy. Status post I&D emergently on 05/01/21 Continue on IV Zosyn, clindamycin, vancomycin Continue per general surgery recommendations with regards to wound 2. Hypoxia, postop, will continue to wean off oxygen 3. Postop hypotension, transient, blood pressure improved 4. Type I DM, HbA1c 11.7, continue on hime insulin regimen, ISS and accuchecks Okay for discharge to [facility] Charges/Coding Visit Charges Inpatient E&M: 01959 Subs Hosp L2
[2021-05-03 08:22] LABS: Vancomycin, Trough Level 14.5 ug/mL (5.0-15.0)
[2021-05-03] MEDS: HYDROmorphone 1 MG/ML Syringe 4 MG IV (08:46)
[2021-05-03] MEDS: Insulin Lispro 100 UNIT/ML INSULN.PEN 22 UNIT SC (08:47)
[2021-05-03] MEDS: Glucerna Shake 120 ML LIQUID PO (08:49)
[2021-05-03] MEDS: DAKIN'S SOL HALF STRENGTH (=0.25%) 1 APPLIC TOPICAL (09:00)
--- NOTE | 2021-05-03 09:20 | CT_ITS ---
STUDY: CT PELVIS WITH CONTRAST REASON FOR EXAM: Female, 40 years old. Necrotizing fasciitis -- packing around anus and buttock. RADIATION DOSAGE (If Supplied By Facility): CTDIvol = ( 28.21 ) mGy, DLP = ( 1030.38 ) mGycm TECHNIQUE: Transaxial imaging of the pelvis was performed without oral contrast. IV 100mL Isovue-300 was administered intravenously. Individualized dose optimization techniques were used for this CT. COMPARISON: None. FINDINGS: BALTAZAR catheter in the bladder. Bladder is not well-distended. Normal visualized small intestine. Normal visualized colon. There is no pelvic fluid. Mass in the dome of the uterus measuring about 4.6 cm consistent with uterine fibroid. Normal visualized pelvic arteries. Soft tissue ulceration of the medial aspect of the left buttock extending to the perineal region with edema and soft tissue swelling extending to the perirectal region. No drainable abscess is seen at this time. Normal osseous structures. CT/Pelvis WITH IV Contrast IMPRESSION: 1. Soft tissue ulceration of the medial aspect of the left buttock with soft tissue swelling extending to the perineal region, perirectal and anal canal regions. 2. No demonstrated drainable abscess. 3. Uterine fibroid. Electronically Signed: Skyler Avila MD at 10:55 EDT Tel , Service support ,
[2021-05-03] MEDS: 0.9% Normal Saline 1,000 ML 100 ML IV (09:30)
--- NOTE | 2021-05-03 09:30 | PN.SURG_ITS ---
Subjective Subjective Patient is having subjective chills and sweats not really mounting a large fever though. Pain has improved but she is on a significant amount of Dilaudid. She has not had any bowel movements yet she is passing gas. Objective Data Objective Data The surrounding skin looks much better. However it is unable really to pack the wound very deep secondary to discomfort but I did not see any purulent fluid coming from the deepest aspect. We have switched her today to Dakin solution. She did tolerate this dressing change much better than yesterday's. Vital Signs: Vital Signs Temp Pulse Resp BP Pulse Ox 98 F 112 H 18 123/76 H 99 05/03/21 07:00 05/03/21 07:00 05/03/21 07:00 05/03/21 07:00 05/03/21 07:00 Oxygen Flow Rate (L/min) 1 Oxygen Delivery Method Nasal Cannula Weight: 210 lb 12.191 oz Body Mass Index (BMI) 30.7 Intake & Output: Intake and Output for Last 24 Hours 05/01/21 05/02/21 05/03/21 23:59 23:59 23:59 Intake Total 995 / 995 4858.67 / 5058.67 1142.33 / 1142.33 Output Total 1800 / 1800 1000 / 1650 650 / 650 Balance -805 / -805 3858.67 / 3408.67 492.33 / 492.33 Lab / Micro Data Result Diagrams: 05/03/21 04:55 05/03/21 04:55 Labs: Laboratory Results - last 24 hr 05/02/21 05/02/21 05/02/21 11:43 14:53 16:23 WBC RBC Hgb Hct MCV MCH MCHC RDW Std Deviation RDW Coeff of Meet Plt Count MPV Immature Gran % (Auto) Neut % (Auto) Lymph % (Auto) [place] % (Auto) Eos % (Auto) Baso % (Auto) Absolute Neuts (auto) Absolute Lymphs (auto) Nucleated RBC % Sodium Potassium Chloride Carbon Dioxide Anion Gap BUN Creatinine Estim Creat Clear Calc Est GFR (MDRD) Af Amer Est GFR (MDRD) Non-Af BUN/Creatinine Ratio Glucose Calcium Total Bilirubin AST ALT Alkaline Phosphatase Total Protein Albumin Globulin Albumin/Globulin Ratio Vancomycin Trough POC Glucose 121 H 94 90 05/02/21 05/02/21 05/03/21 17:53 22:47 04:55 WBC 10.6 RBC 3.74 L Hgb 10.8 L Hct 34.0 L MCV 90.9 MCH 28.9 MCHC 31.8 L RDW Std Deviation 40.2 RDW Coeff of Meet 12.1 Plt Count 315 MPV 8.8 Immature Gran % (Auto) 1.100 H Neut % (Auto) 83.6 H Lymph % (Auto) 9.3 L [place] % (Auto) 4.4 Eos % (Auto) 1.3 Baso % (Auto) 0.3 Absolute Neuts (auto) 8.8 H Absolute Lymphs (auto) 0.98 Nucleated RBC % 0 Sodium Potassium Chloride Carbon Dioxide Anion Gap BUN Creatinine Estim Creat Clear Calc Est GFR (MDRD) Af Amer Est GFR (MDRD) Non-Af BUN/Creatinine Ratio Glucose Calcium Total Bilirubin AST ALT Alkaline Phosphatase Total Protein Albumin Globulin Albumin/Globulin Ratio Vancomycin Trough POC Glucose 96 89 05/03/21 05/03/21 05/03/21 04:55 07:45 07:47 WBC RBC Hgb Hct MCV MCH MCHC RDW Std Deviation RDW Coeff of Meet Plt Count MPV Immature Gran % (Auto) Neut % (Auto) Lymph % (Auto) [place] % (Auto) Eos % (Auto) Baso % (Auto) Absolute Neuts (auto) Absolute Lymphs (auto) Nucleated RBC % Sodium 137 Potassium 4.1 Chloride 102 Carbon Dioxide 30.0 Anion Gap 5 BUN 11 Creatinine 0.80 Estim Creat Clear Calc 94.30 Est GFR (MDRD) Af Amer 101 Est GFR (MDRD) Non-Af 84 BUN/Creatinine Ratio 13.7 Glucose 115 H Calcium 8.4 L Total Bilirubin 0.60 AST 14 L ALT 19 Alkaline Phosphatase 96 Total Protein 6.5 Albumin 2.3 L Globulin 4.2 Albumin/Globulin Ratio 0.5 L Vancomycin Trough 14.5 POC Glucose 122 H Micro: Microbiology 05/01/21 Unknown Wound Abcess - Buttock Gram Stain - Final 05/01/21 Unknown Wound Abcess - Buttock Wound Culture - Preliminary GPC Poss Enterococcus sp Gram negative afshan Coag Negative Staph 05/01/21 17:22 Mucosa - Nose SARS-CoV-2 Antigen (Rapid) - Final Assessment & Plan Assessment/Plan (1) Necrotizing fasciitis: (2) Sepsis: QUALIFIERS: Sepsis type: sepsis due to unspecified organism Sepsis acute organ dysfunction status: unspecified Qualified Code(s): A41.9 - Sepsis, unspecified organism (3) Cutaneous abscess of perineum: PLAN: I am going to repeat a CAT scan of the pelvis. I am concerned that with the fevers were missing something and she might need to have a second operation to look at this area. Dr. Delgado was with us when we change the dressing. He concurs that there really is no way not to do an ileostomy on her. In addition he raised concerned that we could be missing something deeper towards the pelvis. I believe it is a high likelihood that we are going to transfer this patient probably down to [facility] [place] so that she can have a secondary look at the wound and creation of an ileostomy.
--- NOTE | 2021-05-03 10:37 | PCM.RX.CS ---
Consult Pharmacy has been consulted to manage selected antiobiotic: Vancomycin Type of Consult: Follow-up Suspected Infection: Skin/Soft tissue Labs: Sodium 137 mmol/L (136-145) 05/03/21 04:55 Potassium 4.1 mmol/L (3.5-5.1) 05/03/21 04:55 Chloride 102 mmol/L (98-107) 05/03/21 04:55 Carbon Dioxide 30.0 mmol/L (21.0-32.0) 05/03/21 04:55 Anion Gap 5 (5-15) 05/03/21 04:55 BUN 11 mg/dL (7-18) 05/03/21 04:55 Creatinine 0.80 mg/dL (0.55-1.02) 05/03/21 04:55 Est GFR (MDRD) Af Amer 101 mL/min (>60) 05/03/21 04:55 Est GFR (MDRD) Non-Af 84 mL/min (>60) 05/03/21 04:55 BUN/Creatinine Ratio 13.7 RATIO (10-20) 05/03/21 04:55 Glucose 115 mg/dL (74-106) H 05/03/21 04:55 Vancomycin Trough 14.5 ug/mL (5.0-15.0) 05/03/21 07:45 Microbiology: Microbiology 05/01/21 Unknown Wound Abcess - Buttock Gram Stain - Final 05/01/21 Unknown Wound Abcess - Buttock Wound Culture - Preliminary GPC Poss Enterococcus sp Gram negative afshan Coag Negative Staph 05/01/21 17:22 Mucosa - Nose SARS-CoV-2 Antigen (Rapid) - Final Goal Trough: 15-20 mcg/mL Pharmacy Plan for Drug Dosing: VANCOMYCIN LEVEL RECEIVED Current Vancomycin Dose: 1000MG Q8H Number of Doses Received: 3 Vancomycin Level: 14.5 MG/DL Hours Since Last Dose: 7 Renal Function: SCR 0.8, CRCL 94 ML/MIN Renal Function Trend: STABLE Lab/Micro: WOUND CX POSSIBLE ENTEROCOCCUS Vancomycin Plan/Comments: LEVEL IS CLOSE TO THERAPEUTIC, WILL CONTINUE CURRENT DOSING AND GET A LEVEL IN 24 HOURS TO RE-ASSESS. Pending Level: 05/04/21 @ 0730 Pharmacy Service will continue to monitor and adjust dosing as required.
[2021-05-03] MEDS: Docusate Sodium 100 MG Capsule PO (10:42)
[2021-05-03] MEDS: Enoxaparin 40 MG/0.4 ML Syringe SC (10:43)
--- NOTE | 2021-05-03 12:02 | DS.PCM_ITS ---
Providers Primary Care Physician: Dr. 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 Routine Comment: Reason For Visit: NECROTIZING FASCIITIS Diagnosis Discharge Diagnosis (1) Necrotizing fasciitis: Status: Acute Code(s): M72.6 - Necrotizing fasciitis (2) Sepsis: Status: Acute Code(s): A41.9 - Sepsis, unspecified organism Qualifiers: Sepsis type: sepsis due to unspecified organism Sepsis acute organ dysfunction status: unspecified Qualified Code(s): A41.9 - Sepsis, unspecified organism (3) Cellulitis: Status: Acute Code(s): L03.90 - Cellulitis, unspecified Qualifiers: Site of cellulitis: buttock Qualified Code(s): L03.317 - Cellulitis of buttock (4) Diabetes mellitus type 1: Status: Chronic Code(s): E10.9 - Type 1 diabetes mellitus without complications Qualifiers: Diabetes mellitus complication status: with other specified complication Qualified Code(s): E10.69 - Type 1 diabetes mellitus with other specified complication Medications at Discharge Home Medications hydrocodone-acetaminophen 1 tab PO Q4H PRN PRN 2 Days #10 tablet 04/23/21 insulin glargine [Basaglar KwikPen U-100 Insulin] 32 unit SUBCUT BID 04/23/21 insulin lispro [Humalog KwikPen Insulin] 22 unit SUBCUT TID 04/23/21 Hospital Course Operations - (Extensive debridement of necrotizing fasciitis to buttocks) Summary of Care Provided Hospital Course: Is a 40-year-old female who presented to the emergency department this past Tuesday. She had had 2 previous incision and drainage of a left buttocks perineal abscess. She was on Keflex and Bactrim and presented back to the surgeon who at that time noticed that her discomfort was worse and she had more foul-smelling drainage coming from her incision. Subsequently sent her to the emergency department where I saw her and took her to surgery for necrotizing fasciitis. I did an extensive debridement in this area taking out a lot of fat and extending it into the ischio rectal fossa and packed the wound with a Betadine soaked Kerlix. She still has significant pain still tachycardic although her white count has come down. We have changed her dressings to wet-to-dry Dakin solution. A repeat CAT scan of her pelvis today still raises the concern that there might still be some necrotic tissue in the ischial rectal area. Given this fact and the fact that she is obviously going to have to have some form of diverting ileostomy as well as a second look operation determination was made that she needed to be transferred. We will be transferring her down to [facility]. Physical Exam Narrative See physician exam note from today Weight / BMI Weight Weight: 210 lb 12.191 oz Body Mass Index (BMI) 30.7 ABG / Lab / Microbiology Data Result Diagrams: 05/03/21 04:55 05/03/21 04:55 Laboratory: Laboratory Results - last 24 hr 05/02/21 05/02/21 05/02/21 14:53 16:23 17:53 WBC RBC Hgb Hct MCV MCH MCHC RDW Std Deviation RDW Coeff of Meet Plt Count MPV Immature Gran % (Auto) Neut % (Auto) Lymph % (Auto) Esmeralda % (Auto) Eos % (Auto) Baso % (Auto) Absolute Neuts (auto) Absolute Lymphs (auto) Nucleated RBC % Sodium Potassium Chloride Carbon Dioxide Anion Gap BUN Creatinine Estim Creat Clear Calc Est GFR (MDRD) Af Amer Est GFR (MDRD) Non-Af BUN/Creatinine Ratio Glucose Calcium Total Bilirubin AST ALT Alkaline Phosphatase Total Protein Albumin Globulin Albumin/Globulin Ratio Vancomycin Trough POC Glucose 94 90 96 05/02/21 05/03/21 05/03/21 22:47 04:55 04:55 WBC 10.6 RBC 3.74 L Hgb 10.8 L Hct 34.0 L MCV 90.9 MCH 28.9 MCHC 31.8 L RDW Std Deviation 40.2 RDW Coeff of Meet 12.1 Plt Count 315 MPV 8.8 Immature Gran % (Auto) 1.100 H Neut % (Auto) 83.6 H Lymph % (Auto) 9.3 L Esmeralda % (Auto) 4.4 Eos % (Auto) 1.3 Baso % (Auto) 0.3 Absolute Neuts (auto) 8.8 H Absolute Lymphs (auto) 0.98 Nucleated RBC % 0 Sodium 137 Potassium 4.1 Chloride 102 Carbon Dioxide 30.0 Anion Gap 5 BUN 11 Creatinine 0.80 Estim Creat Clear Calc 94.30 Est GFR (MDRD) Af Amer 101 Est GFR (MDRD) Non-Af 84 BUN/Creatinine Ratio 13.7 Glucose 115 H Calcium 8.4 L Total Bilirubin 0.60 AST 14 L ALT 19 Alkaline Phosphatase 96 Total Protein 6.5 Albumin 2.3 L Globulin 4.2 Albumin/Globulin Ratio 0.5 L Vancomycin Trough POC Glucose 89 05/03/21 05/03/21 07:45 07:47 WBC RBC Hgb Hct MCV MCH MCHC RDW Std Deviation RDW Coeff of Meet Plt Count MPV Immature Gran % (Auto) Neut % (Auto) Lymph % (Auto) [place]mer[place]da % (Auto) Eos % (Auto) Baso % (Auto) Absolute Neuts (auto) Absolute Lymphs (auto) Nucleated RBC % Sodium Potassium Chloride Carbon Dioxide Anion Gap BUN Creatinine Estim Creat Clear Calc Est GFR (MDRD) Af Amer Est GFR (MDRD) Non-Af BUN/Creatinine Ratio Glucose Calcium Total Bilirubin AST ALT Alkaline Phosphatase Total Protein Albumin Globulin Albumin/Globulin Ratio Vancomycin Trough 14.5 POC Glucose 122 H Microbiology: Microbiology 05/01/21 Unknown Gram Stain - Final Wound Abcess - Buttock Wound Culture - Preliminary GPC Poss Enterococcus sp Gram negative afshan Coag Negative Staph Microbiology 05/01/21 Unknown Wound Abcess - Buttock Gram Stain - Final 05/01/21 Unknown Wound Abcess - Buttock Wound Culture - Preliminary GPC Poss Enterococcus sp Gram negative afshan Coag Negative Staph 05/01/21 17:22 Mucosa - Nose SARS-CoV-2 Antigen (Rapid) - Final Radiography Diagnostic Testing: Radiology Impression Pelvis CT 05/03/21 09:20 IMPRESSION: 1. Soft tissue ulceration of the medial aspect of the left buttock with soft tissue swelling extending to the perineal region, perirectal and anal canal regions. 2. No demonstrated drainable abscess. 3. Uterine fibroid. Electronically Signed: Skyler Avila MD at 10:55 EDT Tel , Service support , Meaningful Use Info Meaningful Use Diagnoses (Choose all that apply): None applicable AMI/Post PCI/Angioplasty Antiplatelet Therapy at Discharge:: Yes Russell/ARB at discharge?: No Reason Russell/ARB not ordered:: Not indicated Beta Harsha at discharge?: No Reason Beta Harsha not ordered:: Drug Interaction Done w/ Acute VT measure.: No Discharge Plan Admission Primary Reason for Your Visit: Necrotizing fasciitis Attending Provider: Dawson Jimenez Primary Care Provider: Shakira Mathur Consulting Providers: Yvette Marcos Instructions Additional Instructions / Restrictions: Patient is to be transferred to [facility] today. Discharge Orders/Prescriptions Prescriptions: No Action insulin lispro [Humalog KwikPen Insulin] 100 unit/mL insulin pen 22 unit SUBCUT TID RF: 0 Basaglar KwikPen U-100 Insulin 100 unit/mL (3 mL) insulin pen 32 unit SUBCUT BID RF: 0 hydrocodone-acetaminophen 5-325 mg tablet 1 tab PO Q4H PRN PRN (Reason: Pain) 2 Days Qty: 10 RF: 0 Referrals / Follow Up: Shakira Mathur MD [Primary Care Provider] - Disposition Disposition (needs filled in before D/C Order can be placed): Home, Self Care
[2021-05-03] MEDS: HYDROmorphone 1 MG/ML Syringe IV (12:45)
[2021-05-04 00:56] LABS: Bedside Glucose 79 mg/dL (70-110)
== END 2021-05-03 13:00 | disposition short-term general hospital (02) | DRG 720 ==
LOC: ED 16:03 → SDC 16:35 → ACINP 16:35 → ICU 23:30
PROVIDERS: Hospitalist; Internal Medicine; Admitting Provider Surgery; Emergency Provider Emergency Medicine; PCP Family Medicine; Visit Provider Surgery
PROC: 0JB90ZZ Excision of Buttock Subcutaneous Tissue and Fascia, Open Approach (ICD-10-PCS; principal; 2021-05-01 19:50)
DX: A41.9 Sepsis, unspecified organism (principal); M72.6 Necrotizing fasciitis; L03.317 Cellulitis of buttock; L02.215 Cutaneous abscess of perineum; I95.81 Postprocedural hypotension; E10.69 Type 1 diabetes mellitus with other specified complication; Z79.4 Long term (current) use of insulin; Z98.891 History of uterine scar from previous surgery
CPT/HCPCS: 72193; 80048; 80053; 80202; 82962; 83036; 83605; 85025; 87040; 87070; 87075; 87077; 87186; 87205; 87426; 88304; 97803; 99251; 99285; J7030; J7040; J7050; J7120; Q9967; A4216; G0463; J1170; J2405

== ENCOUNTER 2021-05-22 21:53 | Emergency (ER) | payer MEDICAID, SELFPAY ==
[2021-05-01 20:00] VITALS: BMI 30.7
[2021-05-22 21:54] VITALS: BP 158/81; PULSE 110; RESP 16; TEMP 36.4; O2SAT 97; BMI 28.8
--- NOTE | 2021-05-22 22:14 | CT_ITS ---
STUDY: CT ABDOMEN AND PELVIS WITH CONTRAST REASON FOR EXAM: Female, 40 years old. Abdominal pain -- IV PO Contrast RADIATION DOSAGE (If Supplied By Facility): CTDIvol = ( 16.55 ) mGy, DLP = ( 1450.34 ) mGycm TECHNIQUE: Transaxial images were obtained from the dome of the diaphragm to the symphysis pubis without oral contrast. Oral and amp; IV Breeza Neutral and amp; 100mL Isovue-370 was administered. Sagittal and coronal images were reconstructed. Individualized dose optimization techniques were used for this CT. COMPARISON: 05/03/2021 FINDINGS: Minimal bibasilar dependent atelectasis. Unremarkable liver, spleen, pancreas, adrenals, and bilateral kidneys. Gallbladder not seen and likely removed. Normal appendix. Status post left-sided colostomy. Marked fat stranding around the colostomy loop, suspicious for acute colitis. Also, the sigmoid colon and rectum show apparent circumferential wall thickening. No definite adenopathy. No abdominal aortic aneurysm. No free air. Trace free fluid in the pelvis, likely physiologic. There is an approximately 3.5 cm fibroid arising from the dorsal aspect of the junction of the uterine body and fundus. No adnexal mass. Grossly intact urinary bladder. No acute finding the regional skeleton. CT/Abdomen/Pelvis WITH Contrast IMPRESSION: Findings suspicious for infectious/inflammatory colitis involving the colostomy loop. Apparent circumferential wall thickening of the sigmoid and rectum, due to incomplete distention or infectious/inflammatory colitis. Uterine fibroid. Normal appendix. Electronically Signed: Kenney Santos MD at 0:18 EDT Tel , Service support ,
--- NOTE | 2021-05-22 22:15 | EDS_ITS ---
HPI History of Present Illness Chief Complaint: Wound Check Informant: patient and spouse/S.O. Onset/Context/Timing Onset: Days (2) Context: Gradual Onset Timing: Continuous Quality: Green drainage, malodorous Location: Left gluteal and perineal area Worsened by: Nothing Relieved by: Nothing Narrative Narrative: Patient resents for wound check. Patient had recent surgery at [facility] for necrotizing fasciitis of her left gluteal area. Patient has noted some green malodorous drainage over the past 2 days. Patient called her surgeon who told her to go to the emergency department [facility]. Patient went there and waited 8 hours but were never seen. Patient then returned back to [place] and came to the emergency department here. Patient states that her packing fell out earlier today. Patient admits to some nausea and vomiting. Patient admits to some subjective fevers and chills. PFSH PFSH Medical History Current use of insulin Diabetes Home Medications hydrocodone-acetaminophen 1 tab PO Q4H PRN PRN 2 Days #10 tablet 04/23/21 [Rx Last Taken Unknown] insulin glargine [Basaglar KwikPen U-100 Insulin] 32 unit SUBCUT BID 04/23/21 [History Last Taken Unknown] insulin lispro [Humalog KwikPen Insulin] 22 unit SUBCUT TID 04/23/21 [History Last Taken Unknown] amoxicillin-pot clavulanate 875 mg PO Q12H #20 tablet 05/23/21 [Rx Last Taken Unknown] Allergy/AdvReac Type Severity Reaction Status Date / Time metformin AdvReac Nausea Verified 05/22/21 21:57 Surgical History H/O: S/P tubal ligation Social History adopted: No household members: spouse and children housing: house number of children: 2 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 pets and animals: No leisure activities: art, games and volunteer work history of recent travel: No sexually active: Yes Smoking Status: Never smoker ROS ROS ED Constitutional Constitutional ED: Reports chills, fever(s) and subjective Eyes Eyes: Reports blurry vision; Denies diplopia ENT ENT ED: Denies rhinorrhea or sore throat Cardiovascular Cardiovascular: Denies chest pain or palpitations Respiratory/Chest Respiratory/Chest: Denies cough or dyspnea Gastrointestinal Gastrointestinal: Reports nausea and vomiting Genitourinary Genitourinary ED: Denies dysuria or hematuria Musculoskeletal Musculoskeletal: Reports back pain; Denies neck pain Integumentary Reports abscess and rash Neurologic Neurologic: Reports headache(s); Denies weakness Allergic/Immunologic Allergic/Immunologic ED: Denies mouth swelling or urticaria EXAM Physical Exam Const Vital Signs: 05/22/21 21:54 05/23/21 00:29 Temperature 97.6 F L Temperature Source Temporal Pulse Rate 110 H Respiratory Rate 16 16 Blood Pressure 158/81 H Blood Pressure Mean 106 Pulse Ox 97 Oxygen Delivery Method Room Air Positive well nourished and well developed General Appearance ED: well developed HEENT Reports moist mucous membranes Extremity normal to inspection Neuro oriented x3, CN's II-XII intact bilaterally and no sensory deficits noted Sensorium / Orientation: alert Motor Exam: strength 5/5 throughout Psych mental status grossly normal Skin Skin Narrative: There is an open wound in the left gluteal and perineal area. There is minimal surrounding erythema. Appears to be healing. There is no purulent drainage noted. There is tenderness to palpation over this area. MDM MDM MDM Narrative Medical decision making narrative: Patient was given IV fluids, morphine and Zofran. CBC shows a mild anemia with a hemoglobin of 10.4 hematocrit of 32.6. Comprehensive metabolic profile was within normal limits. Urinalysis shows leukocyte esterase of 500 with positive nitrates and greater than 100 white blood cells. There is 3+ bacteria. CT scan of the abdomen and pelvis was obtained. There is some colitis noted at the colostomy loop as well as in the sigmoid and rectum. There is no evidence of any abscess or fluid collection. This was interpreted by the radiologist and reviewed by myself. Patient was given a prescription for Augmentin to cover both colitis and urinary tract infection. Patient was instructed to follow-up with her primary care physician and surgeon as scheduled. Patient was instructed continue changing the dressing twice daily. Patient and spouse understood and were agreeable with the plan. All questions were answered. Lab Data Attestation: I reviewed the patient's lab results. Labs: Laboratory Results - last 24 hr 0705/22/21 05/22/21 22:27 22:27 22:37 WBC 8.9 RBC 3.66 L Hgb 10.4 L Hct 32.6 L MCV 89.1 MCH 28.4 MCHC 31.9 L RDW Std Deviation 43.7 RDW Coeff of Meet 13.5 Plt Count 320 MPV 8.9 Immature Gran % (Auto) 0.400 Neut % (Auto) 60.7 Lymph % (Auto) 27.5 [place] % (Auto) 6.3 Eos % (Auto) 4.5 Baso % (Auto) 0.6 Absolute Neuts (auto) 5.4 Absolute Lymphs (auto) 2.46 Nucleated RBC % 0 Sodium 140 Potassium 3.9 Chloride 103 Carbon Dioxide 30.0 Anion Gap 7 BUN 12 Creatinine 0.87 Estim Creat Clear Calc 86.71 Est GFR (MDRD) Af Amer 93 Est GFR (MDRD) Non-Af 77 BUN/Creatinine Ratio 13.8 Glucose 183 H Calcium 8.8 Total Bilirubin 0.20 AST 14 L ALT 19 Alkaline Phosphatase 72 Total Protein 7.1 Albumin 3.0 L Globulin 4.1 Albumin/Globulin Ratio 0.7 L Urine Color Yellow Urine Clarity Cloudy Urine pH 6.5 Ur Specific [place] 1.015 Urine Protein 30 H Urine Glucose (UA) Normal Urine Ketones Negative Urine Occult Blood 25 H Urine Nitrite Positive H Urine Bilirubin Negative Urine Urobilinogen Normal Ur Leukocyte Esterase 500 H Urine RBC 5-10 SEEN Urine WBC >100 SEEN Ur Squamous Epith Cells 0-5 SEEN Urine Bacteria 3+ Urine Mucus 0 SEEN Radiography Diagnostic Testing: Radiology Impression Abdomen/Pelvis CT 05/22/21 22:14 IMPRESSION: Findings suspicious for infectious/inflammatory colitis involving the colostomy loop. Apparent circumferential wall thickening of the sigmoid and rectum, due to incomplete distention or infectious/inflammatory colitis. Uterine fibroid. Normal appendix. Electronically Signed: Kenney Santos MD at 0:18 EDT Tel , Service support , Discharge Plan Triage Chief Complaint: Wound Check ED Provider: Myles Cabrera Dx/Rx/DC Orders Clinical Impression: Colitis, Urinary tract infection Instructions: ED Understanding Colitis, ED CYSTITIS Female Adult Prescriptions: New amoxicillin-pot clavulanate [amoxicillin-pot clavulanate] 875 MG tablet 875 mg PO Q12H Qty: 20 RF: 0 No Action insulin lispro [Humalog KwikPen Insulin] 100 unit/mL insulin pen 22 unit SUBCUT TID RF: 0 Basaglar KwikPen U-100 Insulin 100 unit/mL (3 mL) insulin pen 32 unit SUBCUT BID RF: 0 hydrocodone-acetaminophen 5-325 mg tablet 1 tab PO Q4H PRN PRN (Reason: Pain) 2 Days Qty: 10 RF: 0 Primary Care Provider: Joaquin Huitron Referrals: Joaquin Huitron MD [Primary Care Provider] - 3-5 Days Disposition Disposition: Home, Self Care
[2021-05-22 22:33] LABS: Absolute Lymphocyte Count 2.46 X10^3/uL (0.83-4.51); Absolute Neutrophil Count 5.4 X10^3/uL (2.0-7.7); Basophil# 0.05 X10^3/uL; Basophil% 0.6 % (0-1); Eosinophils% 4.5 % (0-5); Hematocrit 32.6 % (37-47); Hemoglobin 10.4 g/dL (12.0-15.0); Lymphocyte # 2.46 X10^3/ul (0.83-4.51); Lymphocyte % 27.5 % (19-41); Mean Corp Hgb Conc 31.9 g/dL (32-36); Mean Corpuscular Hgb 28.4 pg (27.0-32.0); Mean Corpuscular Volume 89.1 fL (81-99); Mean Platelet Vol. 8.9 fl (6.2-12.0); Monocyte# 0.56 X10^3/uL; Monocyte% 6.3 % (0-10); NRBC Flagged by Analyzer 0 % (0-5); Neutrophil # 5.42 X10^3/uL (2.7-7.7); Neutrophil % 60.7 % (47-70); Platelet Count 320 K/mm3 (150-450); RBC Distribution Width CV 13.5 % (11.6-14.6); RBC Distribution Width SD 43.7 fl (35.1-43.9); Red Blood Count 3.66 M/mm3 (4.2-5.4); White Blood Count 8.9 K/mm3 (4.4-11.0)
[2021-05-22] MEDS: Morphine 4 MG/ML Syringe IV (22:35)
[2021-05-22] MEDS: 0.9% Normal Saline 1,000 ML 1000 ML IV (22:35)
[2021-05-22] MEDS: Ondansetron 4 MG/2 ML Vial IV (22:35)
[2021-05-22 22:44] LABS: Mucous, Urine 0 SEEN /hpf (<or=2+)
[2021-05-22 22:46] LABS: Color, Urine Yellow (Yellow); Glucose, Dipstick Normal (Normal); Ketone-Dipstick Negative (Negative); Leukocyte Esterase-Dipstick 500 /ul (Negative); Nitrite-Dipstick Positive (Negative); Occult Blood-Urine 25 /ul (Negative); Protein-Dipstick 30 mg/dl (Negative); Specific Gravity, Urine 1.015 (1.002-1.030); Urine Bilirubin Dipstick Negative (Negative); Urine Clarity Cloudy (Clear); Urine Urobilinogen Normal (Normal); Urine pH 6.5 (5.0 - 8.0)
[2021-05-22 22:48] LABS: ALB/GLOB Ratio 0.7 RATIO (0.9-2.4); AST(SGOT) 14 U/L (15-37); Alanine Aminotransfer ALT/SGPT 19 U/L (13-56); Alkaline Phosphatase 72 U/L (45-117); Anion Gap 7 (5-15); BUN 12 mg/dL (7-18); BUN/Creat Ratio 13.8 RATIO (10-20); Calcium,Total 8.8 mg/dL (8.5-10.1); Chloride 103 mmol/L (98-107); Creatinine, Serum 0.87 mg/dL (0.55-1.02); EST Glomerular Filtration Rate 77 mL/min (>60); Est Glom Filt Rate - Afr Amer 93 mL/min (>60); Estimated Creatinine Clearance 86.71 ml/min; Globulin 4.1 g/dL (2.2-4.2); Glucose 183 mg/dL (74-106); Potassium 3.9 mmol/L (3.5-5.1); Protein, Total 7.1 g/dL (6.4-8.2); Sodium Level 140 mmol/L (136-145)
[2021-05-22 22:58] LABS: Bacteria 3+ /hpf (None Seen); White Blood Cells >100 SEEN /hpf (0-5)
[2021-05-22 23:01] LABS: Red Blood Cells-Urine 5-10 SEEN /hpf (0-5); Squamous Epithelial Cells - UA 0-5 SEEN /hpf (5-10)
[2021-05-23 00:29] VITALS: RESP 16
[2021-05-23] MEDS: Morphine 4 MG/ML Syringe IV (00:51)
[2021-05-23] MEDS: Amox/Clavulanate 875 MG Tablet PO (01:18)
--- NOTE | 2021-05-25 09:06 | ED.RN ---
Pt had ecoli come back in her wound culture. per dr nguyễn add levaquin and rx was sent to [facility]. pt is aware
== END 2021-05-23 01:23 | disposition home or self-care (01) ==
PROVIDERS: Emergency Provider Emergency Medicine; PCP Family Medicine
DX: N39.0 Urinary tract infection, site not specified (principal); K52.9 Noninfective gastroenteritis and colitis, unspecified; D25.9 Leiomyoma of uterus, unspecified; E11.9 Type 2 diabetes mellitus without complications; Z79.4 Long term (current) use of insulin; Z98.51 Tubal ligation status
CPT/HCPCS: 74177; 80053; 81001; 85025; 87070; 87077; 87186; 87205; 99283; J7030; Q9967; A4216; J2405

== ENCOUNTER 2021-09-14 14:02 | Emergency (ER) | payer MEDICAID, SELFPAY ==
[2021-09-14 14:03] VITALS: BP 119/95; PULSE 110; RESP 16; TEMP 36.6; O2SAT 97; BMI 30.4
--- NOTE | 2021-09-14 15:43 | VDUE_ITS ---
Reason For Study: Pain Left Proximal Left jugular vein is spontaneous, widely patent, phasic, with no intraluminal echogenicity noted. Left subclavian vein is spontaneous, widely patent, phasic, with no intraluminal echogenicity noted. Left Arm Left axillary vein is spontaneous, patent, phasic, competent, compressible and demonstrates augmentation. Left brachial vein is compressible. Left cephalic vein is compressible. Superficial vein thrombosis is noted in the left Basilic vein from the wrist to above antecube. Left Lower Arm Left radial vein is compressible. Left ulnar vein is compressible. Patient Safety Preliminary report to Marylou. VL/Venous Duplex US, Unilateral Interpretation Summary There is no evidence of left upper extremity deep vein thrombosis. Superficial thrombophlebitis left basilic vein from the wrist proximal to the antecubital space. Ordering Physician: Clovis Hickman Referring Physician: Hesham Huitron Performed By: Negar Stone RVT ?
--- NOTE | 2021-09-14 15:44 | VDLE_ITS ---
Reason For Study: Pain Procedure LEFT This is a venous duplex using B-mode, color GSV is normal. flow and spectral Doppler. CFV and SFJ visualized with color only appear Exam performed portable in ED. patent, pt unable to tolerate compression due A preliminary report was called and/or faxed to recent abdomen surgery. to Marylou. CFV normal venous flow. FV is compressible, spontaneous, phasic, competent and demonstrates normal augmentation. POP V is compressible, spontaneous, phasic, competent and demonstrates normal augmentation. T/P Trunk is compressible. PTV is compressible. LT PerV is compressible. VL/Venous Duplex US, Unilateral Interpretation Summary There is no evidence of left lower extremity deep vein thrombosis. Left great s aphenous vein appears patent and compressible segmentally. Somewhat limited examination is a left com mon femoral vein and saphenofemoral junction could only be visualized with color Doppler flow as the patient could not tolerate compression Ordering Physician: Clovis Hickman Referring Physician: Hesham Huitron Performed By: Negar Stone RVT
--- NOTE | 2021-09-14 15:45 | EX.ED.DYSGE1 ---
HPI History of Present Illness Chief Complaint: Wound Check Informant: patient Narrative Narrative: Patient referred in here for evaluation after home health nurse evaluated with wound check today. She is 5 days postop colostomy reversal by Dr. Ford in [place] at [facility]. She states abdominal symptoms are stable. Reported she had a spinal block, she went home Tuesday felt numbness leg swelling pain in the calf. Also pain in the left forearm right after surgery due to infiltration of the IV. States slowly improving. She reported symptoms of her leg today does been there since she went home Tuesday. She is due to the spinal block she did not have feelings until she went home. Reported that the nurse could not feel a pulse in her leg, her physicians were contacted and referred her to the emergency department. Denies chest pains or shortness of breath. She states she has been on gabapentin since her surgery. She is a diabetic. Prior similar symptoms: No [facility] Medical History Current use of insulin Diabetes History of necrotising fasciitis Home Medications hydrocodone-acetaminophen 1 tab PO Q4H PRN PRN 2 Days #10 tablet 04/23/21 [Rx Last Taken Unknown] insulin glargine [Basaglar KwikPen U-100 Insulin] 40 unit SUBCUT BID 04/23/21 [History Last Taken Unknown] insulin lispro [Humalog KwikPen Insulin] 22 unit SUBCUT TID 04/23/21 [History Last Taken Unknown] amoxicillin-pot clavulanate 875 mg PO Q12H #20 tablet 05/23/21 [Rx Last Taken Unknown] levofloxacin 500 mg PO DAILY #7 tab 05/25/21 [Rx Last Taken Unknown] atorvastatin 10 mg PO QHS 09/14/21 [History Last Taken Unknown] cyclobenzaprine 10 mg PO TID PRN PRN 09/14/21 [History Last Taken Unknown] gabapentin 100 mg PO TID 09/14/21 [History Last Taken Unknown] lisinopril 5 mg PO DAILY 09/14/21 [History Last Taken Unknown] ondansetron HCl 4 mg PO PRN PRN 09/14/21 [History Last Taken Unknown] oxycodone 5 mg PO PRN PRN 09/14/21 [History Last Taken Unknown] Allergy/AdvReac Type Severity Reaction Status Date / Time metformin AdvReac Nausea Verified 09/14/21 14:05 Surgical History H/O: History of colostomy History of colostomy reversal S/P tubal ligation Social History adopted: No household members: spouse and children housing: house number of children: 2 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 pets and animals: No leisure activities: art, games and volunteer work history of recent travel: No sexually active: Yes Smoking Status: Never smoker ROS ROS ED Constitutional Constitutional ED: Denies chills, fever(s) or sweats Eyes Eyes: Denies change in vision ENT ENT ED: Denies dysphagia or sore throat Cardiovascular Cardiovascular: Denies chest pain, leg edema, palpitations or racing heartbeat Respiratory/Chest Respiratory/Chest: Denies cough, dyspnea or dyspnea on exertion Gastrointestinal Gastrointestinal: Denies abdominal pain, diarrhea, nausea or vomiting Genitourinary Genitourinary ED: Denies dysuria, hematuria or urinary frequency Musculoskeletal Musculoskeletal: Reports other Details: Left forearm, left calf pain. ; Denies back pain, extremity pain or neck pain Integumentary Denies rash or wounds Neurologic Neurologic: Reports paresthesias; Denies headache(s) or weakness EXAM Physical Exam Const Vital Signs: 09/14/21 14:03 09/14/21 17:24 Temperature 97.9 F Temperature Source Temporal Pulse Rate 110 H 86 Respiratory Rate 16 16 Blood Pressure 119/95 H 116/71 Blood Pressure Mean 103 Pulse Ox 97 99 Positive well nourished and well developed General Appearance ED: well developed and NAD HEENT Reports moist mucous membranes normocephalic and atraumatic Eyes PERRL, EOMs intact bilaterally and conjunctivae normal General Eye ED: Yes normal appearance of both eyes Neck no lymphadenopathy and supple General: Negative for tenderness Chest Wall Chest: Negative for tenderness Resp normal respiratory effort and normal air movement Effort and Inspection: symmetric chest movement; Negative for respiratory distress Cardio regular rate, regular rhythm and no murmurs Peripheral Pulses: pulses 2+ throughout GI normal to inspection, nondistended, normoactive bowel sounds and non-tender GI Narrative: Laparoscopic abdominal wounds clean, dry, intact. Left lower quadrant dressing clean, dry, intact. Palpation: Negative for guarding or rebound tenderness present Back/Spine no CVA tenderness and no thoracic nor lumbar tenderness Extremity normal to inspection Extremity Narrative: Left upper extremity: Mild tenderness forearm with mild swelling, radial pulses were intact. Left lower extremity: Mild calf pain no medial thigh pain. DP pulses were palpated and equal bilaterally. General Extremety ED: Yes tenderness; Negative for edema General Extremity: Negative for edema Neuro oriented x3 and no sensory deficits noted Sensorium / Orientation: awake and alert Skin no rashes or lesions noted and no wounds MDM MDM MDM Narrative Medical decision making narrative: Stable palpate both DP pulses of each extremity bilaterally. Patient more reassured. She does have calf pain left calf along with left forearm pain with a history of IV infiltration. Will obtain ultrasounds of the left arm and left lower extremity for further rule out. Patient's left leg ultrasound negative for DVT. Left upper extremity ultrasound positive for superficial DVT of the basilic vein forearm to the proximal aspect of the antecubital. No deep veins affected. Discussed this with the patient. She will monitor for potential worsening pain up the arm or developing chest pains or shortness of breath. Her swelling clinically has improved per her history. Return precautions discussed. Follow-up as an outpatient. All questions were answered. Patient is being discharged under pandemic conditions under declared global, national and state disaster activation, with limited medical resources. Patient and community understands this. Results discussed in layman's terms to the patient satisfaction. All questions answered in layman's terms. Patient understands importance of follow-up care as directed. Patient has been instructed to return to the ED immediately if new symptoms, problems, or questions occur. We mutually agree with the plan of disposition. The patient understand that they may call or return with any questions or concerns at any time. Radiography Diagnostic Testing: Clinical Impression(s) from Imaging Studies Venous Doppler Study 09/14/21 15:43 Interpretation Summary There is no evidence of left upper extremity deep vein thrombosis. Superficial thrombophlebitis left basilic vein from the wrist proximal to the antecubital space. Ordering Physician: Clovis Hickman Referring Physician: Hesham Huitron Performed By: Negar Stone RVT ? Venous Doppler Study 09/14/21 15:44 Interpretation Summary There is no evidence of left lower extremity deep vein thrombosis. Left great saphenous vein appears patent and compressible segmentally. Somewhat limited examination is a left common femoral vein and saphenofemoral junction could only be visualized with color Doppler flow as the patient could not tolerate compression Ordering Physician: Clovis Hickman Referring Physician: Hesham Huitron Performed By: Negar Stone RVT Discharge Plan Triage Chief Complaint: Wound Check ED Provider: Clovis Hickman Dx/Rx/DC Orders Clinical Impression: Left leg pain, Superficial venous thrombosis of left arm Instructions: ED Peripheral Edema, Unilateral Prescriptions: No Action insulin lispro [Humalog KwikPen Insulin] 100 unit/mL insulin pen 22 unit SUBCUT TID RF: 0 Basaglar KwikPen U-100 Insulin 100 unit/mL (3 mL) insulin pen 40 unit SUBCUT BID RF: 0 hydrocodone-acetaminophen 5-325 mg tablet 1 tab PO Q4H PRN PRN (Reason: Pain) 2 Days Qty: 10 RF: 0 amoxicillin-pot clavulanate [amoxicillin-pot clavulanate] 875 MG tablet 875 mg PO Q12H Qty: 20 RF: 0 levofloxacin [levofloxacin] 500 MG tablet 500 mg PO DAILY Qty: 7 RF: 0 cyclobenzaprine 10 mg tablet 10 mg PO TID PRN PRN (Reason: Muscle Spasm) RF: 0 atorvastatin 10 mg tablet 10 mg PO QHS RF: 0 ondansetron HCl 4 mg tablet 4 mg PO PRN PRN (Reason: Nausea) RF: 0 lisinopril 5 mg tablet 5 mg PO DAILY RF: 0 gabapentin 100 mg capsule 100 mg PO TID RF: 0 oxycodone 5 mg tablet 5 mg PO PRN PRN (Reason: Pain) RF: 0 Primary Care Provider: Joaquin Huitron Referrals: Joaquin Huitron MD [Primary Care Provider] - Activity Restrictions/Additional Instructions: Left lower extremity ultrasound negative for DVT. Left upper extremity ultrasound notes a superficial vein thrombus of the left basilic vein from the wrist to above the antecubital. No treatment for this. Monitor for worsening pain in the upper arm developing chest pains or shortness of breath to return for reevaluation. Otherwise follow-up with your physicians. Disposition Disposition: Home, Self Care Discharge Date/Time: 09/14/21 17:25
[2021-09-14 17:24] VITALS: BP 116/71; PULSE 86; RESP 16; O2SAT 99
== END 2021-09-14 17:25 | disposition home or self-care (01) ==
PROVIDERS: Emergency Provider Emergency Medicine; PCP Family Medicine
DX: I82.612 Acute embolism and thrombosis of superficial veins of left upper extremity (principal); M79.605 Pain in left leg; I80.8 Phlebitis and thrombophlebitis of other sites; E11.9 Type 2 diabetes mellitus without complications; Z79.4 Long term (current) use of insulin; Z93.3 Colostomy status
CPT/HCPCS: 93971; 99282

== ENCOUNTER 2022-06-13 10:42 | Emergency (ER) | payer MEDICAID, SELFPAY ==
[2022-06-13 10:42] VITALS: BP 127/72; PULSE 106; RESP 18; TEMP 36.4; O2SAT 100; BMI 36.5
--- NOTE | 2022-06-13 11:14 | CT_ITS ---
STUDY: CT Abdomen And Pelvis W/ Contrast Injection 06/13/2022 2:17 PM REASON FOR EXAM: Female, 41 years old. ABDOMINAL PAIN abdominal pain -- IV PO Contrast TECHNIQUE: Transaxial images were obtained with oral contrast, and with Oral and amp; IV Gastrografin and amp; 100mL Isovue-370 intravenous contrast. Individualized dose optimization techniques were used for this CT. COMPARISON: May 22 2021 11:55pm FINDINGS: The visualized lung bases are unremarkable. The visualized portions of the heart are within normal limits. Unremarkable liver. There is non-visualization of the gallbladder, which may be secondary to either contraction or a prior cholecystectomy. Unremarkable spleen. Unremarkable pancreas. Unremarkable bilateral adrenal glands. There are hypodensities in the right kidney. These are consistent for cysts. No follow up required. This is stable. No acute findings of the left kidney. Mild right hydronephrosis with inflammation and enhancement of the right ureter suggesting an infectious process. Unremarkable visualized stomach. Unremarkable small intestine. There is an anastomosis of the descending colon to the sigmoid colon. The appendix is visualized and appears unremarkable. At the site of the previous left lower quadrant colostomy, there is a fluid collection measuring 91 x 58 mm. This is 4 HOUNSFIELD units. This is likely a seroma. This fluid extends into the patients abdomen. No drainable abscess. There are no acute findings of the abdominal aorta. Unremarkable inferior vena cava. Subcentimeter mesenteric lymph nodes. Unremarkable urinary bladder. Stable fibroid of the visualized uterus. There is an umbilical hernia containing fluid and fat. Unremarkable osseous structures. CT/Abdomen/Pelvis WITH Contrast IMPRESSION: (NOT LISTED IN ORDER OF SIGNIFICANCE) Mild right hydronephrosis with inflammation and enhancement of the right ureter suggesting an infectious process. At the site of the previous left lower quadrant colostomy, there is a fluid collection measuring 91 x 58 mm. This is 4 HOUNSFIELD units. This is likely a seroma. This fluid extends into the patients abdomen. No drainable abscess. Fibroid uterus. There is an umbilical hernia containing fluid and fat. Other findings as above. Electronically Signed: John Hart MD at 14:36 EDT ,
--- NOTE | 2022-06-13 11:14 | EKG12_ITS ---
Test Reason : Blood Pressure : / mmHG Vent. Rate : 098 BPM Atrial Rate : 098 BPM P-R Int : 148 ms QRS Dur : 084 ms QT Int : 348 ms P-R-T Axes : 044 -02 016 degrees QTc Int : 444 ms Normal sinus rhythm Normal ECG Confirmed by CHELSI AVALOS MD ([id number]), supervising editor news reel TRICE SHANKS [id number]) on 06/15/2022 9:07:40 AM Referred By: Confirmed By:CHELSI AVALOS MD
--- NOTE | 2022-06-13 11:18 | EX.ED.DYSGE1 ---
HPI History of Present Illness Chief Complaint: Abd Pain Narrative Narrative: Patient presents with abdominal pain started about 2 days ago, she recently had abdominal wall hernia repair at [facility]. She has noticed her blood sugar being increased, she has had no fevers or chills, no recent cough or congestion, she is denying urinary symptoms. [facility] Medical History Current use of insulin Diabetes History of necrotising fasciitis Home Medications hydrocodone-acetaminophen 5-325mg 5mg-325mg 1 tab PO Q4H PRN PRN Pain 2 days #10 TABLETS 04/23/21 [Rx Last Taken Unknown] insulin glargine 100 unit/mL (3 mL) subcutaneous pen (Basaglar KwikPen U-100 Insulin) 40 unit subcut BID 04/23/21 [History Last Taken Unknown] insulin lispro 100 unit/mL subcutaneous pen (Humalog KwikPen (U-100) Insulin) 22 unit subcut TID 04/23/21 [History Last Taken Unknown] amoxicillin 875 mg-potassium clavulanate 125 mg tablet 875 mg PO Q12H #20 TABLETS 05/23/21 [Rx Last Taken Unknown] levofloxacin 500 mg tablet 500 mg PO DAILY #7 tabs 05/25/21 [Rx Last Taken Unknown] atorvastatin 10 mg tablet 10 mg PO QHS 09/14/21 [History Last Taken Unknown] cyclobenzaprine 10 mg tablet 10 mg PO TID PRN PRN Muscle Spasm 09/14/21 [History Last Taken Unknown] gabapentin 100 mg capsule 100 mg PO TID 09/14/21 [History Last Taken Unknown] lisinopril 5 mg tablet 5 mg PO DAILY 09/14/21 [History Last Taken Unknown] ondansetron HCl 4 mg tablet 4 mg PO PRN PRN Nausea 09/14/21 [History Last Taken Unknown] oxycodone 5 mg tablet 5 mg PO PRN PRN Pain 09/14/21 [History Last Taken Unknown] cefpodoxime 200 mg tablet 200 mg PO BID #20 tabs 06/13/22 [Rx Last Taken Unknown] oxycodone-acetaminophen 5 mg-325 mg tablet (Percocet) 1 tab PO Q6H PRN pain 3 days #12 tabs 06/13/22 [Rx Last Taken Unknown] Allergy/AdvReac Type Severity Reaction Status Date / Time metformin AdvReac Nausea Verified 06/13/22 10:44 Surgical History H/O: History of colostomy History of colostomy reversal S/P tubal ligation Social History adopted: No household members: spouse and children housing: house number of children: 2 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 Medications: Reviewed Social history: Noncontributory Review of systems: All systems negative except as indicated General: No fever Eyes: No visual changes ENT: No upper airway congestion, normal voice Neck: No neck pain Cardiovascular: No chest pain Respiratory: No shortness of breath or cough Gastrointestinal: Abdominal pain as in HPI Genitourinary: No dysuria Musculoskeletal: Denies myalgias no difficulty with ambulation Skin: No rash Neurological: No memory loss, confusion or any focal weakness Psych: No recent behavioral changes Hematologic: No easy bleeding or easy bruising EXAM Physical Exam Narrative Exam Narrative: Physical exam General: Patient appears uncomfortable Head: Normocephalic, Atraumatic Eyes: Conjunctiva not pale ENT: Moist mucous membranes Neck: Supple, Nontender, No lymphadenopathy Cardiovascular: Regular rate, Regular rhythm Respiratory: No distress, CTA bilaterally Abdomen: Soft, tenderness throughout the abdomen, mostly in the left periumbilical region where the ostomy site is, because of her body habitus I cannot palpate any induration fluctuance or any fluid. Back: Nontender, Normal Inspection. Negative for: CVA tenderness Extremities: Nontender, No edema Skin: Normal color, No rash Neurological: Alert, Normal Strength, Normal Sensation Psychological: Normal affect Const Vital Signs: 06/13/22 10:42 06/13/22 14:34 Temperature 97.6 F L Temperature Source Temporal Pulse Rate 106 H 78 Respiratory Rate 18 16 Blood Pressure 127/72 H 132/78 H Blood Pressure Mean 90 96 Pulse Ox 100 98 Oxygen Delivery Method Room Air Room Air MDM MDM MDM Narrative Medical decision making narrative: Patient's work-up is significant for a UTI however there is some stranding around the kidney and she likely has pyelonephritis. She has a seroma from her surgery but there is no evidence of an abscess, she does not have a white count her pain is controlled. I gave her IV Rocephin, I think she can get an outpatient treatment for her early pyelonephritis this, I will treat with cefpodoxime. If anything worsens they are to return otherwise she had a recent appointment after surgery, the seroma is known however apparently the decision was not to drain at that time. Lab Data Labs: Laboratory Results - last 24 hr 06/13/22 06/13/22 06/13/22 11:00 11:00 11:00 WBC 10.1 RBC 4.03 L Hgb 12.2 Hct 35.7 L MCV 88.6 MCH 30.3 MCHC 34.2 RDW Std Deviation 40.6 RDW Coeff of Meet 12.4 Plt Count 229 MPV 11.0 Immature Gran % (Auto) 0.500 Neut % (Auto) 73.4 H Lymph % (Auto) 17.0 L [place] % (Auto) 6.0 Eos % (Auto) 2.6 Baso % (Auto) 0.5 Absolute Neuts (auto) 7.5 Absolute Lymphs (auto) 1.72 Nucleated RBC % 0 PT 12.1 INR 0.9 Sodium Potassium Chloride Carbon Dioxide Anion Gap BUN Creatinine Estim Creat Clear Calc Est GFR (MDRD) Af Amer Est GFR (MDRD) Non-Af BUN/Creatinine Ratio Glucose Calcium Total Bilirubin AST ALT Alkaline Phosphatase Total Protein Albumin Globulin Albumin/Globulin Ratio Lipase 65 L Urine Color Urine Clarity Urine pH Ur Specific [place] Urine Protein Urine Glucose (UA) Urine Ketones Urine Occult Blood Urine Nitrite Urine Bilirubin Urine Urobilinogen Ur Leukocyte Esterase Urine RBC Urine WBC Ur Squamous Epith Cells Urine Bacteria Urine Mucus 06/13/22 06/13/22 11:00 11:05 WBC RBC Hgb Hct MCV MCH MCHC RDW Std Deviation RDW Coeff of Meet Plt Count MPV Immature Gran % (Auto) Neut % (Auto) Lymph % (Auto) [place] % (Auto) Eos % (Auto) Baso % (Auto) Absolute Neuts (auto) Absolute Lymphs (auto) Nucleated RBC % PT INR Sodium 139 Potassium 3.8 Chloride 107 Carbon Dioxide 26.0 Anion Gap 6 BUN 18 Creatinine 0.82 Estim Creat Clear Calc 91.08 Est GFR (MDRD) Af Amer 98 Est GFR (MDRD) Non-Af 81 BUN/Creatinine Ratio 21.8 H Glucose 188 H Calcium 8.8 Total Bilirubin 0.50 AST 11 L ALT 23 Alkaline Phosphatase 81 Total Protein 7.2 Albumin 3.3 Globulin 3.9 Albumin/Globulin Ratio 0.8 L Lipase Urine Color Yellow Urine Clarity Clear Urine pH 6.0 Ur Specific [place] 1.010 Urine Protein 30 H Urine Glucose (UA) Normal Urine Ketones Negative Urine Occult Blood 250 H Urine Nitrite Positive H Urine Bilirubin Negative Urine Urobilinogen Normal Ur Leukocyte Esterase 500 H Urine RBC 0 SEEN Urine WBC >100 SEEN Ur Squamous Epith Cells 0-5 SEEN Urine Bacteria 1+ Urine Mucus 0 SEEN Radiography Diagnostic Testing: Clinical Impression(s) from Imaging Studies Abdomen/Pelvis CT 06/13/22 11:14 IMPRESSION: (NOT LISTED IN ORDER OF SIGNIFICANCE) Mild right hydronephrosis with inflammation and enhancement of the right ureter suggesting an infectious process. At the site of the previous left lower quadrant colostomy, there is a fluid collection measuring 91 x 58 mm. This is 4 [place]FIELD units. This is likely a seroma. This fluid extends into the patients abdomen. No drainable abscess. Fibroid uterus. There is an umbilical hernia containing fluid and fat. Other findings as above. Electronically Signed: John Hart MD at 14:36 EDT Reading Location ID and State: [facility] / [place] , Service support , Discharge Plan Triage Chief Complaint: Abd Pain ED Provider: Jose Weinstein Dx/Rx/DC Orders Clinical Impression: Post-op pain, UTI (urinary tract infection), Pyelonephritis Instructions: Understanding Urinary Tract ..., Kidney Problems Prescriptions: New cefpodoxime 200 mg tablet 200 mg PO BID Qty: 20 0RF Rx Instructions: must administer with a meal/food oxycodone-acetaminophen [Percocet] 5-325 mg tablet 1 tab PO Q6H PRN (Reason: pain) 3 Days Qty: 12 0RF No Action insulin lispro [Humalog KwikPen Insulin] 100 unit/mL insulin pen 22 unit SUBCUT TID Label Comments: INJECT 22 UNITS SUBCUTANEOULSY WITH MEALS Basaglar KwikPen U-100 Insulin 100 unit/mL (3 mL) insulin pen 40 unit SUBCUT BID Label Comments: INJECT 40 UNITS SUBCUTANEOUSLY TWICE DAILY hydrocodone-acetaminophen 5-325 mg tablet 1 tab PO Q4H PRN PRN (Reason: Pain) 2 Days Qty: 10 0RF amoxicillin-pot clavulanate [amoxicillin-pot clavulanate] 875 MG tablet 875 mg PO Q12H Qty: 20 0RF levofloxacin [levofloxacin] 500 MG tablet 500 mg PO DAILY Qty: 7 0RF cyclobenzaprine 10 mg tablet 10 mg PO TID PRN PRN (Reason: Muscle Spasm) atorvastatin 10 mg tablet 10 mg PO QHS ondansetron HCl 4 mg tablet 4 mg PO PRN PRN (Reason: Nausea) lisinopril 5 mg tablet 5 mg PO DAILY gabapentin 100 mg capsule 100 mg PO TID oxycodone 5 mg tablet 5 mg PO PRN PRN (Reason: Pain) Primary Care Provider: Joaquin Huitron Referrals: Joaquin Huitron MD [Primary Care Provider] - 3-5 Days Disposition Disposition: Home, Self Care
[2022-06-13] MEDS: Ondansetron 4 MG/2 ML Vial IV (11:23)
[2022-06-13] MEDS: Morphine 4 MG/ML Syringe IV (11:23)
[2022-06-13 11:25] LABS: Absolute Lymphocyte Count 1.72 X10^3/uL (0.83-4.51); Absolute Neutrophil Count 7.5 X10^3/uL (2.0-7.7); Basophil# 0.05 X10^3/uL; Basophil% 0.5 % (0-1); Eosinophil# 0.26 X10^3/uL; Eosinophils% 2.6 % (0-5); Hematocrit 35.7 % (37-47); Hemoglobin 12.2 g/dL (12.0-15.0); Lymphocyte # 1.72 X10^3/ul (0.83-4.51); Mean Corp Hgb Conc 34.2 g/dL (32-36); Mean Corpuscular Hgb 30.3 pg (27.0-32.0); Mean Corpuscular Volume 88.6 fL (81-99); Monocyte# 0.61 X10^3/uL; NRBC Flagged by Analyzer 0 % (0-5); Neutrophil # 7.45 X10^3/uL (2.7-7.7); Neutrophil % 73.4 % (47-70); Platelet Count 229 K/mm3 (150-450); RBC Distribution Width CV 12.4 % (11.6-14.6); RBC Distribution Width SD 40.6 fl (35.1-43.9); Red Blood Count 4.03 M/mm3 (4.2-5.4); White Blood Count 10.1 K/mm3 (4.4-11.0)
[2022-06-13 11:32] LABS: Lipase 65 U/L (73-393)
[2022-06-13 11:33] LABS: International Normalized Ratio 0.9; Prothrombin Time (Protime)PT. 12.1 SECONDS (11.7-14.9)
[2022-06-13 11:41] LABS: Mucous, Urine 0 SEEN /hpf (<or=2+); Red Blood Cells-Urine 0 SEEN /hpf (0-5)
[2022-06-13] MEDS: HYDROmorphone 1 MG/ML Syringe IV (11:41)
[2022-06-13 12:01] LABS: Color, Urine Yellow (Yellow); Glucose, Dipstick Normal (Normal); Ketone-Dipstick Negative (Negative); Leukocyte Esterase-Dipstick 500 /ul (Negative); Nitrite-Dipstick Positive (Negative); Occult Blood-Urine 250 /ul (Negative); Protein-Dipstick 30 mg/dl (Negative); Urine Bilirubin Dipstick Negative (Negative); Urine Clarity Clear (Clear); Urine Urobilinogen Normal (Normal)
[2022-06-13 12:23] LABS: Bacteria 1+ /hpf (None Seen); Squamous Epithelial Cells - UA 0-5 SEEN /hpf (5-10); White Blood Cells >100 SEEN /hpf (0-5)
[2022-06-13 13:38] LABS: ALB/GLOB Ratio 0.8 RATIO (0.9-2.4); AST(SGOT) 11 U/L (15-37); Alanine Aminotransfer ALT/SGPT 23 U/L (13-56); Albumin, Serum 3.3 g/dL (3.2-5.0); Alkaline Phosphatase 81 U/L (45-117); Anion Gap 6 (5-15); BUN 18 mg/dL (7-18); BUN/Creat Ratio 21.8 RATIO (10-20); Calcium,Total 8.8 mg/dL (8.5-10.1); Chloride 107 mmol/L (98-107); Creatinine, Serum 0.82 mg/dL (0.55-1.02); EST Glomerular Filtration Rate 81 mL/min (>60); Est Glom Filt Rate - Afr Amer 98 mL/min (>60); Estimated Creatinine Clearance 91.08 ml/min; Globulin 3.9 g/dL (2.2-4.2); Glucose 188 mg/dL (74-106); Potassium 3.8 mmol/L (3.5-5.1); Protein, Total 7.2 g/dL (6.4-8.2); Sodium Level 139 mmol/L (136-145)
[2022-06-13 14:34] VITALS: BP 132/78; PULSE 78; RESP 16; O2SAT 98
[2022-06-13] MEDS: Ceftriaxone 1 GM/50 ML BAG IV (15:10)
[2022-06-13] MEDS: oxyCODONE 5 MG Tablet PO (15:45)
[2022-06-13 16:21] VITALS: BP 142/90; PULSE 88; RESP 16; O2SAT 97
== END 2022-06-13 16:22 | disposition home or self-care (01) ==
PROVIDERS: Emergency Provider Emergency Medicine; PCP Family Medicine; Visit Provider Emergency Medicine
DX: N13.6 Pyonephrosis (principal); E11.9 Type 2 diabetes mellitus without complications; Z79.4 Long term (current) use of insulin; G89.18 Other acute postprocedural pain; N12 Tubulo-interstitial nephritis, not specified as acute or chronic
CPT/HCPCS: 74177; 80053; 81001; 83690; 85025; 85610; 93005; 96361; 96365; 96375; 99284; J7030; J7050; Q9967; A4216; J2405

== ENCOUNTER 2022-08-30 07:58 | Emergency (ER) | payer MEDICAID, SELFPAY ==
[2022-08-30 07:59] VITALS: BP 157/86; PULSE 103; RESP 16; TEMP 36.8; O2SAT 99; BMI 40.9
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
[2022-08-30 09:13] VITALS: BP 148/86; PULSE 99; RESP 16; O2SAT 98
== END 2022-08-30 09:17 | disposition home or self-care (01) ==
LOC: ED 08:40
PROVIDERS: Emergency Provider Emergency Medicine; PCP Family Medicine; Visit Provider Emergency Medicine
DX: R10.9 Unspecified abdominal pain (principal); E11.9 Type 2 diabetes mellitus without complications; Z79.4 Long term (current) use of insulin; V43.52XA Car driver injured in collision with other type car in traffic accident, initial encounter; Y92.218 Other school as the place of occurrence of the external cause
CPT/HCPCS: 74176; 99284

== ENCOUNTER 2023-04-13 17:26 | Emergency (ER) | payer OTHER, MEDICAID, SELFPAY ==
[2023-04-13 17:27] VITALS: BP 156/86; PULSE 99; RESP 16; TEMP 36.4; O2SAT 98; BMI 80.6
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
[2023-04-13] MEDS: Ondansetron 4 MG/2 ML Vial IV (17:55)
[2023-04-13] MEDS: Morphine 4 MG/ML Syringe IV (17:56)
--- NOTE | 2023-04-13 18:00 | RAD_ITS ---
STUDY: X-RAY - LEFT SHOULDER REASON FOR EXAM: Female, 42 years old. Injury/Pain TECHNIQUE: 2 view(s) of the shoulder. COMPARISON: None. FINDINGS: Normal glenohumeral articulation. Normal acromioclavicular joint. Normal acromion. Normal humeral head and visualized proximal humerus. The soft tissue structures are unremarkable. There is no demonstrated fracture. Normal visualized pulmonary apex. RAD/Shoulder min 2 Views IMPRESSION: Normal x-ray examination of the shoulder. Electronically Signed: Filippo Howe MD at 18:49 EDT ,
--- NOTE | 2023-04-13 18:00 | RAD_ITS ---
STUDY: X-RAY - LEFT CLAVICLE REASON FOR EXAM: Female, 42 years old. Injury/Pain TECHNIQUE: 2 view(s) of the clavicle. COMPARISON: None. FINDINGS: Normal clavicle. There is no acute fracture. Normal acromioclavicular articulation. Normal visualized sternoclavicular articulation. Normal visualized pulmonary apex. RAD/Clavicle IMPRESSION: Normal x-ray examination of the clavicle. Electronically Signed: Filippo Howe MD at 18:47 EDT ,
--- NOTE | 2023-04-13 18:00 | RAD_ITS ---
STUDY: X-RAY - LEFT KNEE REASON FOR EXAM: Female, 42 years old. Injury/Pain TECHNIQUE: 2 view(s) of the knee. COMPARISON: None. FINDINGS: Normal visualized distal femur. Normal visualized proximal tibia and fibula. Normal proximal tibiofibular articulation. There is no demonstrated fracture. Normal medial femorotibial compartment. Normal lateral femorotibial compartment. Normal patellofemoral articulation. The soft tissue structures are unremarkable. RAD/Knee 1 or 2 Views IMPRESSION: Normal x-ray examination of the knee. Electronically Signed: Filippo Howe MD at 18:37 EDT ,
[2023-04-13 18:09] LABS: Bedside Glucose 427 mg/dL (74-106)
[2023-04-13 18:16] LABS: Absolute Lymphocyte Count 2.52 X10^3/uL (0.83-4.51); Basophil# 0.05 X10^3/uL; Basophil% 0.4 % (0-1); Eosinophil# 0.17 X10^3/uL; Eosinophils% 1.4 % (0-5); Hematocrit 40.7 % (37-47); Hemoglobin 13.6 g/dL (12.0-15.0); Lymphocyte # 2.52 X10^3/ul (0.83-4.51); Lymphocyte % 20.2 % (19-41); Mean Corp Hgb Conc 33.4 g/dL (32-36); Mean Corpuscular Hgb 29.4 pg (27.0-32.0); Mean Corpuscular Volume 87.9 fL (81-99); Mean Platelet Vol. 11.8 fl (6.2-12.0); Monocyte# 0.63 X10^3/uL; Monocyte% 5.1 % (0-10); NRBC Flagged by Analyzer 0 % (0-5); Neutrophil # 8.99 X10^3/uL (2.7-7.7); Neutrophil % 72.1 % (47-70); Platelet Count 266 K/mm3 (150-450); RBC Distribution Width CV 12.3 % (11.6-14.6); RBC Distribution Width SD 39.3 fl (35.1-43.9); Red Blood Count 4.63 M/mm3 (4.2-5.4); White Blood Count 12.5 K/mm3 (4.4-11.0)
[2023-04-13 18:31] LABS: Anion Gap 8 (5-15); BUN 17 mg/dL (7-18); BUN/Creat Ratio 16.7 RATIO (10-20); Chloride 101 mmol/L (98-107); Creatinine, Serum 1.02 mg/dL (0.55-1.02); EST Glomerular Filtration Rate 63 mL/min (>60); Est Glom Filt Rate - Afr Amer 76 mL/min (>60); Estimated Creatinine Clearance 72.48 ml/min; Glucose 426 mg/dL (74-106); Potassium 4.2 mmol/L (3.5-5.1); Sodium Level 137 mmol/L (136-145)
--- NOTE | 2023-04-13 19:00 | EX.ED.GENINJ ---
HPI History of Present Illness Chief Complaint: Fall Detail of Chief Complaint: Fall down a flight of stairs at work Informant: patient Onset/Context/Timing Onset: Today (At approximately 11 AM) Mechanism/Context: Blunt Injury and Fall Location of pain/injuries: Left shoulder and Left knee Quality of Pain: Dull and Aching Location: Also complains of pain left lower rib cage and left upper quadrant Current Severity: Mild Maximum Severity: Severe Worsened by: Movement of her extremities and palpation of the chest wall Relieved by: Nothing Associated Symptoms Associated Symptoms: Negative for Parasthesias, Weakness, Loss of function, Inability to ambulate, Loss of consciousness or Amnesia Narrative Narrative: Patient is a 43-year-old woman with history of diabetes who presents after fall down flight of steps. This occurred at work. It occurred at approximately 1 AM. She fell backwards. She did strike her head. She denies loss of conscious. She not amnestic. She denies headache. Denies nausea vomiting. Denies visual symptoms. Denies ringing or ears or decreased hearing. She denies paresthesia, anesthesia or motor weakness upper or lower extremity presently the time of the fall. She does complain chest pain denies shortness of breath. She denies back or flank pain. She denies change in the color of her urine. She has no allergies to pain medicine. She is not on an anticoagulant or antithrombotic. Tetanus Immunization: 5-10 years Prior similar symptoms: No Recent Illness/Hospitalization: No [facility] Medical History Current use of insulin Diabetes History of necrotising fasciitis Home Medications hydrocodone-acetaminophen 5-325mg 5mg-325mg 1 tab PO Q4H PRN PRN Pain 2 days #10 TABLETS 04/23/21 [Rx Last Taken Unknown] insulin glargine 100 unit/mL (3 mL) subcutaneous pen (Basaglar KwikPen U-100 Insulin) 40 unit subcut BID 04/23/21 [History Last Taken Unknown] insulin lispro 100 unit/mL subcutaneous pen (Humalog KwikPen (U-100) Insulin) 22 unit subcut TID 04/23/21 [History Last Taken Unknown] amoxicillin 875 mg-potassium clavulanate 125 mg tablet 875 mg PO Q12H #20 TABLETS 05/23/21 [Rx Last Taken Unknown] levofloxacin 500 mg tablet 500 mg PO DAILY #7 tabs 05/25/21 [Rx Last Taken Unknown] atorvastatin 10 mg tablet 10 mg PO QHS 09/14/21 [History Last Taken Unknown] cyclobenzaprine 10 mg tablet 10 mg PO TID PRN PRN Muscle Spasm 09/14/21 [History Last Taken Unknown] gabapentin 100 mg capsule 100 mg PO TID 09/14/21 [History Last Taken Unknown] lisinopril 5 mg tablet 5 mg PO DAILY 09/14/21 [History Last Taken Unknown] ondansetron HCl 4 mg tablet 4 mg PO PRN PRN Nausea 09/14/21 [History Last Taken Unknown] oxycodone 5 mg tablet 5 mg PO PRN PRN Pain 09/14/21 [History Last Taken Unknown] cefpodoxime 200 mg tablet 200 mg PO BID #20 tabs 06/13/22 [Rx Last Taken Unknown] oxycodone-acetaminophen 5 mg-325 mg tablet (Percocet) 1 tab PO Q6H PRN pain 3 days #12 tabs 06/13/22 [Rx Last Taken Unknown] oxycodone-acetaminophen 5 mg-325 mg tablet 1 tab PO Q6H PRN PRN pain 5 days #20 TABLETS 04/13/23 [Rx Last Taken Unknown] Allergy/AdvReac Type Severity Reaction Status Date / Time metformin AdvReac Nausea Verified 04/13/23 17:38 Surgical History H/O: History of cholecystectomy History of colostomy History of colostomy reversal S/P tubal ligation Social History adopted: No household members: spouse and children housing: house number of children: 2 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 pets and animals: No leisure activities: art, games and volunteer work history of recent travel: No sexually active: Yes Smoking Status: Never smoker ROS ROS ED Constitutional Constitutional ED: Denies chills, fever(s), subjective, sweats or weight loss Eyes Eyes: Denies blurry vision or change in vision ENT ENT ED: Denies ear pain, rhinorrhea or sore throat Cardiovascular Cardiovascular: Reports chest pain; Denies palpitations or racing heartbeat Respiratory/Chest Respiratory/Chest: Denies cough, dyspnea or dyspnea on exertion Gastrointestinal Gastrointestinal: Reports abdominal pain; Denies constipation, diarrhea, melena, nausea or vomiting Genitourinary Genitourinary ED: Denies dysuria, hematuria or urinary frequency Musculoskeletal Musculoskeletal: Reports other Details: Left clavicle, left shoulder and left knee pain there is an abrasion noted over the left patella. ; Denies arthralgias, back pain, myalgias or neck pain Integumentary Reports Abrasions Neurologic Neurologic: Denies headache(s), paresthesias or weakness Psychiatric Psychiatric: Denies anxiety Endocrine Endocrinology: Denies polydipsia or polyuria Hematologic/Lymphatic Hematologic/Lymphatic: Denies easy bleeding or easy bruising EXAM Physical Exam Const Vital Signs: 04/13/23 17:27 04/13/23 17:43 Temperature 97.5 F L Temperature Source Temporal Pulse Rate 99 Respiratory Rate 16 Respiratory Effort Normal Non-Labored Blood Pressure 156/86 H Blood Pressure Mean 109 Pulse Ox 98 Oxygen Delivery Method Room Air Positive well nourished, well developed and obese Constitutional Narrative: Patient appears uncomfortable. She is reluctant to move her left upper extremity because of shoulder pain. General Appearance ED: well developed; Negative for NAD Nutritional Appearance: obese HEENT Reports TM's clear HEENT Narrative: There is a subcutaneous hematoma left parietal occipital region. There is no palpable oppression. There is no clinical signs of basilar skull fracture. There is no septal deviation hematoma. There is no dental trauma. There is no TMJ tenderness right or left. trauma Tympanic Membrane ED: Yes TM's clear Eyes PERRL and EOMs intact bilaterally General Eye ED: Yes other Other Details: There is no subconjunctival hemorrhage noted Neck full ROM General: Negative for tenderness Chest Wall inspection of chest normal and palpation of chest normal Chest Narrative: There is pain outpatient over the clavicle and there is pain to palpation over the left lower ribs anterior axillary line to the posterior axillary line, 5 through 9 there is no crepitus subcutaneous air noted. Resp normal respiratory effort and clear to auscultation bilaterally Cardio regular rhythm, S1 normal heart sound, S2 normal heart sound and no murmurs Rate: regular rate GI normal to inspection, nondistended, normoactive bowel sounds, non-distended and no masses; Negative for non-tender Palpation: soft, tender LUQ (Right costal margin region.) and guarding LUQ Back/Spine normal to inspection and no thoracic nor lumbar tenderness General Back: Negative for CVA tenderness Extremity Negative for normal to inspection Extremity Narrative: Abrasion noted over the left patella. Full extension 180 degrees and flexion to 90 degrees. There is no laxity varus valgus stress testing. There is no joint line tenderness. There is pain ovation of the patella. There is no laxity with varus valgus stress testing. There is no click with modified Jay's test. Ren[place]'s test was not. Neuro oriented x3, CN's II-XII intact bilaterally, moves all extremities, no focal motor deficits and gait normal [place] Coma Scale: document GCS findings Spontaneous Obeys Commands Oriented 15 Sensorium / Orientation: alert Plantar Reflex: Downgoing: bilateral Psych mental status grossly normal and thought process normal Skin no rashes or lesions noted, skin turgor normal and no jaundice Skin Narrative: Abrasion noted over the left follow-up MDM MDM MDM Narrative Medical decision making narrative: Per the [place] CT head rule imaging of the head is not required. Since there is no cervical spine tenderness and she has full active range of motion without grimacing or hesitation x-rays of the neck were not obtained. Will obtain x-ray of the clavicle and shoulder as well as knee to assess for fracture, dislocation or combination. Because of concern for splenic injury and lower rib cage fracture CT of the abdomen pelvis was obtained with IV contrast. Per my review there is no rib fractures, pneumothorax or hemothorax. The spleen appears normal as does the kidney. Awaiting formal read by radiology. Lab Data Attestation: I reviewed the patient's lab results. Lab results narrative: White count is elevated due to stress and pain. Glucose is elevated at 426 with a normal CO2 anion gap. Labs: Laboratory Results - last 24 hr 04/13/23 04/13/23 04/13/23 17:51 17:55 17:55 WBC 12.5 H RBC 4.63 Hgb 13.6 Hct 40.7 MCV 87.9 MCH 29.4 MCHC 33.4 RDW Std Deviation 39.3 RDW Coeff of Meet 12.3 Plt Count 266 MPV 11.8 Immature Gran % (Auto) 0.800 Neut % (Auto) 72.1 H Lymph % (Auto) 20.2 [place] % (Auto) 5.1 Eos % (Auto) 1.4 Baso % (Auto) 0.4 Absolute Neuts (auto) 9.0 H Absolute Lymphs (auto) 2.52 Nucleated RBC % 0 Sodium 137 Potassium 4.2 Chloride 101 Carbon Dioxide 28.0 Anion Gap 8 BUN 17 Creatinine 1.02 Estim Creat Clear Calc 72.48 Est GFR (MDRD) Af Amer 76 Est GFR (MDRD) Non-Af 63 BUN/Creatinine Ratio 16.7 Glucose 426 H Calcium 10.0 POC Glucose 427 H Radiography Chest X-Ray - ED: Read by ED Physician (2 view x-ray of the left clavicle and dependently interpreted by me as negative for fracture. The AC joint is normal. This was independent reviewed interpreted by me at 1836.) and - (Three-view x-ray of the knee and 2 view x-ray of the left shoulder were independently interpreted by me as negative as well at 1836 with no evidence of fracture, subluxation dislocation etc. There is no effusion on the knee portion.) Diagnostic Testing: Clinical Impression(s) from Imaging Studies Abdomen/Pelvis CT 04/13/23 17:39 IMPRESSION: No fracture. No solid organ injury. Hepatomegaly. No biliary dilatation. Right renal stone. No hydronephrosis. Uterine fibroid. Electronically Signed: Filippo Howe MD at 19:01 EDT Reading Location ID and State: [facility] / [place] , Service support , Clavicle X-Ray 04/13/23 18:00 IMPRESSION: Normal x-ray examination of the clavicle. Electronically Signed: Filippo Howe MD at 18:47 EDT , Knee X-Ray 04/13/23 18:00 IMPRESSION: Normal x-ray examination of the knee. Electronically Signed: Filippo Howe MD at 18:37 EDT , Shoulder X-Ray 04/13/23 18:00 IMPRESSION: Normal x-ray examination of the shoulder. Electronically Signed: Filippo Howe MD at 18:49 EDT , CT read by radiologist reveals a right renal stone. Otherwise there are is no additional information discrepancy compared to my reads. Treatment and Re-Evaluation Narrative: Patient was seen and walking to the restroom. She is holding her left upper extremity internally rotated and adductor. She states she still has pain. She was offered more pain medicine which she declined. Discharge Plan Triage Chief Complaint: Fall ED Provider: Cosme Link Dx/Rx/DC Orders Clinical Impression: Contusion of scalp, Contusion of left shoulder or upper extremity, Contusion of left knee, initial encounter, Abrasion, left knee, initial encounter, Fall down stairs, Type 1 diabetes mellitus with hyperglycemia Instructions: ED Contusion, Lower Extremity, ED Contusion, Upper Extremity, ED Head Injury (Adult) Prescriptions: New oxycodone-acetaminophen [oxycodone-acetaminophen] 5-325 mg tablet 1 tab PO Q6H PRN PRN (Reason: pain) 5 Days Qty: 20 0RF No Action insulin lispro [Humalog KwikPen Insulin] 100 unit/mL insulin pen 22 unit SUBCUT TID Label Comments: INJECT 22 UNITS SUBCUTANEOULSY WITH MEALS Basaglar KwikPen U-100 Insulin 100 unit/mL (3 mL) insulin pen 40 unit SUBCUT BID Label Comments: INJECT 40 UNITS SUBCUTANEOUSLY TWICE DAILY hydrocodone-acetaminophen 5-325 mg tablet 1 tab PO Q4H PRN PRN (Reason: Pain) 2 Days Qty: 10 0RF amoxicillin-pot clavulanate [amoxicillin-pot clavulanate] 875 MG tablet 875 mg PO Q12H Qty: 20 0RF levofloxacin [levofloxacin] 500 MG tablet 500 mg PO DAILY Qty: 7 0RF cyclobenzaprine 10 mg tablet 10 mg PO TID PRN PRN (Reason: Muscle Spasm) atorvastatin 10 mg tablet 10 mg PO QHS ondansetron HCl 4 mg tablet 4 mg PO PRN PRN (Reason: Nausea) lisinopril 5 mg tablet 5 mg PO DAILY gabapentin 100 mg capsule 100 mg PO TID oxycodone 5 mg tablet 5 mg PO PRN PRN (Reason: Pain) cefpodoxime 200 mg tablet 200 mg PO BID Qty: 20 0RF Rx Instructions: must administer with a meal/food oxycodone-acetaminophen [Percocet] 5-325 mg tablet 1 tab PO Q6H PRN (Reason: pain) 3 Days Qty: 12 0RF Primary Care Provider: Joaquin Huitron Referrals: Joaquin Huitron MD [Primary Care Provider] -
[2023-04-13 19:54] VITALS: BP 142/89; PULSE 102; RESP 16; O2SAT 99
== END 2023-04-13 20:38 | disposition home or self-care (01) ==
PROVIDERS: Emergency Provider Emergency Medicine; PCP Family Medicine; Visit Provider Emergency Medicine
DX: S00.03XA Contusion of scalp, initial encounter (principal); E10.65 Type 1 diabetes mellitus with hyperglycemia; Z79.4 Long term (current) use of insulin; M25.512 Pain in left shoulder; W10.9XXA Fall (on) (from) unspecified stairs and steps, initial encounter; Y93.89 Activity, other specified; Y99.0 Civilian activity done for income or pay; S40.012A Contusion of left shoulder, initial encounter; S80.02XA Contusion of left knee, initial encounter
CPT/HCPCS: 73000; 73030; 73560; 74177; 80048; 82962; 85025; 96374; 96375; 99283; J7030; Q9967; J2405

== ENCOUNTER → 2023-08-19 | Outpatient (CLI) | payer OTHER, SELFPAY ==
[2023-08-19 14:54] LABS: Absolute Lymphocyte Count 2.35 X10^3/uL (0.83-4.51); Absolute Neutrophil Count 5.8 X10^3/uL (2.0-7.7); Basophil# 0.04 X10^3/uL; Basophil% 0.4 % (0-1); Eosinophil# 0.22 X10^3/uL; Eosinophils% 2.4 % (0-5); Hematocrit 38.5 % (37-47); Hemoglobin 12.4 g/dL (12.0-15.0); Lymphocyte # 2.35 X10^3/ul (0.83-4.51); Lymphocyte % 25.9 % (19-41); Mean Corp Hgb Conc 32.2 g/dL (32-36); Mean Platelet Vol. 10.5 fl (6.2-12.0); Monocyte# 0.62 X10^3/uL; Monocyte% 6.8 % (0-10); NRBC Flagged by Analyzer 0 % (0-5); Neutrophil # 5.81 X10^3/uL (2.7-7.7); Neutrophil % 64.2 % (47-70); Platelet Count 275 K/mm3 (150-450); RBC Distribution Width CV 12.5 % (11.6-14.6); RBC Distribution Width SD 40.8 fl (35.1-43.9); Red Blood Count 4.28 M/mm3 (4.2-5.4); White Blood Count 9.1 K/mm3 (4.4-11.0)
[2023-08-19 15:38] LABS: Anion Gap 4 (5-15); BUN 19 mg/dL (7-18); Calcium,Total 8.9 mg/dL (8.5-10.1); Chloride 108 mmol/L (98-107); Creatinine, Serum 0.79 mg/dL (0.55-1.02); EST Glomerular Filtration Rate 84 mL/min (>60); Est Glom Filt Rate - Afr Amer 102 mL/min (>60); Glucose 118 mg/dL (74-106); Potassium 4.1 mmol/L (3.5-5.1); Sodium Level 143 mmol/L (136-145)
[2023-08-19 15:48] LABS: Hemoglobin A1c 6.9 % (3.8-5.6)
== END | disposition home or self-care (01) ==
PROVIDERS: PCP Family Medicine; Referring Provider Orthopaedic Surgery; Visit Provider Orthopaedic Surgery
DX: Z01.818 Encounter for other preprocedural examination (principal); Z01.810 Encounter for preprocedural cardiovascular examination
CPT/HCPCS: 36415; 80048; 83036; 85025

== ENCOUNTER 2024-07-20 20:02 | Emergency (ER) | payer OTHER, SELFPAY ==
[2024-07-20 20:03] VITALS: BP 178/98; PULSE 121; RESP 16; TEMP 36.6; O2SAT 98; BMI 38.7
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
[2024-07-20 21:32] VITALS: BP 139/80; PULSE 102; RESP 16; TEMP 36.8; O2SAT 96
== END 2024-07-20 21:33 | disposition home or self-care (01) ==
LOC: ED 21:19
PROVIDERS: Emergency Provider Emergency Medicine; PCP Family Medicine; Visit Provider Emergency Medicine
DX: S06.0X9A Concussion with loss of consciousness of unspecified duration, initial encounter (principal); E10.9 Type 1 diabetes mellitus without complications; S10.93XA Contusion of unspecified part of neck, initial encounter; Y04.8XXA Assault by other bodily force, initial encounter
CPT/HCPCS: 99282

== ENCOUNTER 2024-09-16 10:58 | Inpatient (IN) | payer OTHER, SELFPAY ==
[2024-09-16] VITALS (8 sets, daily range): BP systolic 113–157; BP diastolic 55–89; PULSE 81–95; RESP 11–20; TEMP 36.6–37.2; O2SAT 96–100; BMI 36.5; BMI 28.8
--- NOTE | 2024-09-16 11:16 | ED.RN ---
PT HAS HX OF MRSA AND HAS HAD THIS SAME ABSCESS IN 2020 THAT LED HER TO AN ICU STAY. PT SAID IT IS THE SIZE OF A GOLF BALL TODAY AND SHE HAD SOME DRAINAGE OUT OF IT TODAY. LAST NIGHT AND THIS MORNING SHE HAD A TEMP OF 101, BUT DID TAKE SOME TYLENOL THIS MORNING AT 0900. BS AT HOME WAS 376.
--- NOTE | 2024-09-16 12:11 | CT_ITS ---
EXAM: CT PELVIS WITH INTRAVENOUS CONTRAST CLINICAL INDICATION: Perineal abscess TECHNIQUE: Helically acquired images were obtained of the pelvis with intravenous contrast. This CT exam was performed using one or more of the following dose reduction techniques: automated exposure control, adjustment of the mA and/or kV according to patient size, and/or use of iterative reconstruction technique. 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 No drainable abscess. Surgical anastomosis near the descending colon. No bowel distention. No focal inflammatory change. APPENDIX: Unremarkable appearance of the appendix. INTRAPERITONEAL SPACE: Unremarkable. No ascites or other fluid collection. No free air. BLADDER: Unremarkable. REPRODUCTIVE: Fibroid uterus. 17 mm stable cyst of the left ovary. BONES/JOINTS: Unremarkable. No suspicious lytic or blastic abnormality. SOFT TISSUES: Umbilical hernia containing fat. There are areas of fibrosis in the perianal location. No evidence for drainable abscess. LYMPH NODES: Unremarkable. No enlarged lymph nodes. CT/Pelvis WITH IV Contrast IMPRESSION: 1. 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 No drainable abscess. 2. Umbilical hernia containing fat. 3. Fibroid uterus. 4. 17 mm stable cyst of the left ovary. 5. There are areas of fibrosis in the perianal location. No evidence for drainable abscess. Electronically Signed: John Hart MD at 15:07 [facility] ,
--- NOTE | 2024-09-16 12:12 | EX.ED.DYSGE1 ---
HPI <FARA Allen - Last Filed: 09/16/24 16:04> History of Present Illness Chief Complaint: Abscess Narrative Narrative: Patient is a 44-year-old female with history of obesity, diabetes, history of necrotizing fasciitis in the perineum. Patient states that she did have multiple surgeries, and 2020, 2021 most of the surgeries were completed at [facility]. Patient did have having a colostomy because she was incontinent of stool. Patient states that she turned septic very quickly. Patient states that she started having pain 24 hours ago, then developed some fever and chills. Patient went to urgent care who then referred her to the emergency department. [facility] <FARA Allen - Last Filed: 09/16/24 16:04> [facility] Medical History Physical exam, pre-employment History of necrotising fasciitis Current use of insulin Diabetes Home Medications ?Medication ?Instructions ?Recorded ?Last Taken ?Type insulin glargine 100 unit/mL (3 60 unit subcut BID 04/23/21 09/16/24 History mL) subcutaneous pen (Basaglar KwikPen U-100 Insulin) insulin lispro 100 unit/mL 40 unit subcut TID 04/23/21 09/16/24 History subcutaneous pen (Humalog KwikPen (U-100) Insulin) atorvastatin 10 mg tablet 10 mg PO QHS 09/14/21 09/15/24 History lisinopril 5 mg tablet 5 mg PO DAILY 09/14/21 09/15/24 History ropinirole 0.5 mg tablet 1.5 mg PO QHS 09/16/24 09/15/24 History Allergy/AdvReac Type Severity Reaction Status Date / Time metformin AdvReac Nausea Verified 09/16/24 11:18 Family History Other Breast cancer Diabetes Surgical History History of cholecystectomy History of colostomy reversal History of colostomy S/P tubal ligation H/O: Social History adopted: No household members: spouse and children housing: house number of children: 2 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 Positive fever and chills Eyes: Negative for vision loss, vision change, double vision ENT: Negative for any sore throat, ear pain, congestion Cardiovascular: Negative for any chest pain, tightness, palpitations Respiratory: Negative for any cough, sputum production, hemoptysis, dyspnea, dyspnea on exertion, orthopnea Gastrointestinal: Negative for any abdominal pain, nausea, vomiting, diarrhea, constipation, blood in stool, blood in vomit. Positive pain in the perineum area : Negative for any urinary frequency, dysuria, retention, blood in urine Muscle skeletal: Negative for any neck pain, back pain Neurological: Negative for any headache, syncope, dizziness Skin: Negative for any rashes, itching, abrasions, lacerations Psychiatric: Negative for any depression, anxiety, stress, suicidal ideation, homicidal ideation Hematologic: Negative for any excessive bruising, easy bleeding EXAM <FARA Allen - Last Filed: 09/16/24 16:04> Physical Exam Narrative Exam Narrative: Vital signs reviewed. HEET: Head normocephalic atraumatic, TMs clear bilaterally. Posterior pharynx is clear, moist mucous membranes. Nares clear bilaterally. Neck: Supple with no lymphadenopathy or tenderness. No signs of meningismus. Cardiac: Regular rate and rhythm no murmurs gallops or rubs, equal peripheral pulses bilaterally. Respiratory: Lungs clear to auscultation bilaterally. No chest tenderness. Abdomen: Soft, nontender, nondistended. No abdominal bruit or pulsatile masses. No hepatosplenomegaly Extremities: No peripheral edema, no signs of gross trauma or deformity. Active full range of motion of all extremities. Neuro: Cranial nerves II through XII intact, no focal neurological deficits. Skin: Clean dry and intact with no rash, purpura, petechiae, vesicles or pustules. Backs/flank: No CVA tenderness, no midline spinal tenderness, no deformity. Psych: Normal mood and affect. No SI, HI or acute psychosis. Rectal: Rectal exam was completed with female nurse Sona, patient does have some erythema, pain in the perineal area, there is no significant swelling of the rectum. There is a abscess to the left buttock that he does have a head where there is slight drainage. Patient has pain throughout the entire area. Const Vital Signs: 09/16/24 10:59 09/16/24 11:02 09/16/24 12:00 Temperature 98.6 F 98.9 F 98.6 F Temperature Source Oral Oral Oral Pulse Rate 93 88 90 Respiratory Rate 16 18 20 H Blood Pressure 122/88 H 140/74 H 113/55 L Blood Pressure Mean 99 96 74 Pulse Ox 100 97 97 Oxygen Delivery Method Room Air Room Air Room Air 09/16/24 13:00 09/16/24 14:00 09/16/24 15:58 Temperature 98.6 F 98.6 F Temperature Source Oral Pulse Rate 84 92 92 Respiratory Rate 11 L 19 H 18 Blood Pressure 125/76 H 149/83 H 143/85 H Blood Pressure Mean 92 103 104 Pulse Ox 97 96 100 Oxygen Delivery Method Room Air Positive well nourished and well developed General Appearance ED: well developed <Dr. David Hanna, DO - Last Filed: 09/16/24 16:55> Physical Exam Narrative Exam Narrative: Vital signs reviewed. HEET: Head normocephalic atraumatic, TMs clear bilaterally. Posterior pharynx is clear, moist mucous membranes. Nares clear bilaterally. Neck: Supple with no lymphadenopathy or tenderness. No signs of meningismus. Cardiac: Regular rate and rhythm no murmurs gallops or rubs, equal peripheral pulses bilaterally. Respiratory: Lungs clear to auscultation bilaterally. No chest tenderness. Abdomen: Soft, nontender, nondistended. No abdominal bruit or pulsatile masses. No hepatosplenomegaly Extremities: No peripheral edema, no signs of gross trauma or deformity. Active full range of motion of all extremities. Neuro: Cranial nerves II through XII intact, no focal neurological deficits. Skin: Clean dry and intact with no rash, purpura, petechiae, vesicles or pustules. Backs/flank: No CVA tenderness, no midline spinal tenderness, no deformity. Psych: Normal mood and affect. No SI, HI or acute psychosis. Rectal: Rectal exam was completed with female nurse Sona, patient does have some erythema, pain in the perineal area, there is no significant swelling of the rectum. Patient has pain throughout the entire area. Const Vital Signs: 09/16/24 10:59 09/16/24 11:02 09/16/24 12:00 Temperature 98.6 F 98.9 F 98.6 F Temperature Source Oral Oral Oral Pulse Rate 93 88 90 Respiratory Rate 16 18 20 H Blood Pressure 122/88 H 140/74 H 113/55 L Blood Pressure Mean 99 96 74 Pulse Ox 100 97 97 Oxygen Delivery Method Room Air Room Air Room Air 09/16/24 13:00 09/16/24 14:00 09/16/24 15:58 Temperature 98.6 F 98.6 F Temperature Source Oral Pulse Rate 84 92 92 Respiratory Rate 11 L 19 H 18 Blood Pressure 125/76 H 149/83 H 143/85 H Blood Pressure Mean 92 103 104 Pulse Ox 97 96 100 Oxygen Delivery Method Room Air [facility] <FARA Allen - Last Filed: 09/16/24 16:04> [facility] Lab Data Labs: Laboratory Results - last 24 hr 09/16/24 09/16/24 11:21 12:35 WBC 7.4 RBC 4.76 Hgb 13.9 Hct 41.3 MCV 86.8 MCH 29.2 MCHC 33.7 RDW Std Deviation 40.1 RDW Coeff of Meet 12.8 Plt Count 198 MPV 12.1 H Immature Gran % (Auto) 0.400 Neut % (Auto) 68.9 Lymph % (Auto) 21.7 [place] % (Auto) 7.7 Eos % (Auto) 0.8 Baso % (Auto) 0.5 Absolute Neuts (auto) 5.1 Absolute Lymphs (auto) 1.60 Nucleated RBC % 0 PT 12.5 INR 0.9 APTT 24.2 Sodium 136 Potassium 4.3 Chloride 106 Carbon Dioxide 25.0 Anion Gap 6 BUN 19 H Creatinine 0.99 Estim Creat Clear Calc 93.74 Est GFR (MDRD) Af Amer 78 Est GFR (MDRD) Non-Af 65 BUN/Creatinine Ratio 19.2 Glucose 319 H Lactic Acid 1.0 Calcium 9.0 Total Bilirubin 0.30 AST 16 ALT 26 Alkaline Phosphatase 84 Total Protein 6.8 Albumin 3.3 Globulin 3.5 Albumin/Globulin Ratio 0.9 Urine Color Yellow Urine Clarity Clear Urine pH 6.0 Ur Specific [place] 1.020 Urine Protein 30 H Urine Glucose (UA) 1000 H Urine Ketones 5 H Urine Occult Blood 150 H Urine Nitrite Negative Urine Bilirubin Negative Urine Urobilinogen Normal Ur Leukocyte Esterase 100 H Urine RBC 0-5 SEEN Urine WBC 10-25 SEEN Ur Squamous Epith Cells 0-5 SEEN Urine Bacteria 1+ Urine Mucus 0 SEEN Radiography Diagnostic Testing: Clinical Impression(s) from Imaging Studies Pelvis CT 09/16/24 12:11 IMPRESSION: 1. 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 No drainable abscess. 2. Umbilical hernia containing fat. 3. Fibroid uterus. 4. 17 mm stable cyst of the left ovary. 5. There are areas of fibrosis in the perianal location. No evidence for drainable abscess. Electronically Signed: John Hart MD at 15:07 EST Reading Location ID and State: [facility] - [place] / [place] , Service support , Treatment and Re-Evaluation :: Differential diagnosis includes however is not limited to: Lexa's gangrene, necrotizing fasciitis, abscess formation, cellulitis Patient does appear to be slightly uncomfortable, patient's vital signs are stable, patient upon my initial evaluation does not look toxic. Secondary the patient's history for necrotizing fasciitis, history of multiple surgeries, patient will receive a septic workup including 2 blood cultures, lactic acid. IV fluids, Zofran and morphine will be ordered. Patient will receive other laboratory values, as well as a CT scan of the pelvis with IV contrast. All radiologic examinations were read, reviewed by the emergency department attending. From these reads, a plan of care will be put in place. Patient will be reevaluated. Patient CBC shows no significant white count, white blood count 7.4, patient's PT/INR within normal limits, patient's BUN is 19, glucose 319, lactic acid is 1 which is negative. Patient's CT shows question small anal to cutaneous fistula along the left medial gluteal fold. No drainable abscess. Umbilical hernia, fibroid uterus, 17 mm stable cyst of the left ovary, there are areas of fibrosis in the perianal location, no evidence of drainable abscess. Patient did require 2 doses of IV pain medicine. I spoke with surgery, went over the CT scan, the patient's history, surgery at this time recommended admission for IV antibiotics. I did reach out to internal medicine, they will accept the patient. Patient was evaluated by IM doctor, patient be admitted for [facility] full. <Dr. David Hanna, DO - Last Filed: 09/16/24 16:55> [facility] Narrative Medical decision making narrative: 44-year-old female with history of DM and necrotizing fasciitis of the perineum presents for evaluation of perineal infection. Patient endorses swelling, erythema, pain of the perineum that is worsening. No discharge. Endorses fever and chills at home. Denies any abdominal pain, nausea, vomiting, diarrhea, constipation. Pertinent physical exam findings: Gen: A&O x3, NAD, nontoxic-appearing Head: Normocephalic, atraumatic ENT: Moist mucous membranes CV: RRR, no murmurs Resp: Lungs CTA BL, no w/r/c GI: Abd soft, non-distended, non-tender, no r/r/g /Rectal: Patient has erythema, warmth, swelling of the perineum extending to the anus as well as the left labia majora, induration but no fluctuance on my exam, tender to palpation, patient's previous incision and drainage scar visualized. No drainage on my exam. No crepitus. No bullae. Differential diagnosis includes but is not limited to cellulitis, abscess, necrotizing fasciitis, Lexa's gangrene Infectious workup ordered including CT abdomen and pelvis. Fluids, Zofran, morphine ordered for pain. CBC without leukocytosis or anemia. CMP relatively unremarkable except for hyperglycemia of 319. Patient is a diabetic. CT abdomen pelvis shows questionable small anal to cutaneous fistula along the left medial gluteal fold. No drainable abscess. There are areas of fibrosis in the perineal location. Given patient's history as well as physical exam IV antibiotics ordered including Zosyn and vancomycin. Patient will warrant admission for observation. General surgery was contacted. Agree with admission. Hospitalist admitted. Lab Data Labs: Laboratory Results - last 24 hr 09/16/24 09/16/24 11:21 12:35 WBC 7.4 RBC 4.76 Hgb 13.9 Hct 41.3 MCV 86.8 MCH 29.2 MCHC 33.7 RDW Std Deviation 40.1 RDW Coeff of Meet 12.8 Plt Count 198 MPV 12.1 H Immature Gran % (Auto) 0.400 Neut % (Auto) 68.9 Lymph % (Auto) 21.7 [place] % (Auto) 7.7 Eos % (Auto) 0.8 Baso % (Auto) 0.5 Absolute Neuts (auto) 5.1 Absolute Lymphs (auto) 1.60 Nucleated RBC % 0 PT 12.5 INR 0.9 APTT 24.2 Sodium 136 Potassium 4.3 Chloride 106 Carbon Dioxide 25.0 Anion Gap 6 BUN 19 H Creatinine 0.99 Estim Creat Clear Calc 93.74 Est GFR (MDRD) Af Amer 78 Est GFR (MDRD) Non-Af 65 BUN/Creatinine Ratio 19.2 Glucose 319 H Lactic Acid 1.0 Calcium 9.0 Total Bilirubin 0.30 AST 16 ALT 26 Alkaline Phosphatase 84 Total Protein 6.8 Albumin 3.3 Globulin 3.5 Albumin/Globulin Ratio 0.9 Urine Color Yellow Urine Clarity Clear Urine pH 6.0 Ur Specific [place] 1.020 Urine Protein 30 H Urine Glucose (UA) 1000 H Urine Ketones 5 H Urine Occult Blood 150 H Urine Nitrite Negative Urine Bilirubin Negative Urine Urobilinogen Normal Ur Leukocyte Esterase 100 H Urine RBC 0-5 SEEN Urine WBC 10-25 SEEN Ur Squamous Epith Cells 0-5 SEEN Urine Bacteria 1+ Urine Mucus 0 SEEN Radiography Diagnostic Testing: Clinical Impression(s) from Imaging Studies Pelvis CT 09/16/24 12:11 IMPRESSION: 1. 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 No drainable abscess. 2. Umbilical hernia containing fat. 3. Fibroid uterus. 4. 17 mm stable cyst of the left ovary. 5. There are areas of fibrosis in the perianal location. No evidence for drainable abscess. Electronically Signed: John Hart MD at 15:07 EST , Discharge Plan Dx/Rx/DC Orders Clinical Impression: Abscess of deep perineal space, Abscess or cellulitis of perineum Disposition Disposition: Acute Care [facility]
[2024-09-16] MEDS: Ondansetron 4 MG/2 ML Vial IV ×2 (12:26→21:25)
[2024-09-16] MEDS: Morphine 4 MG/ML Syringe IV ×2 (12:26→14:47)
[2024-09-16 12:27] LABS: Absolute Neutrophil Count 5.1 X10^3/uL (2.0-7.7); Basophil# 0.04 X10^3/uL; Basophil% 0.5 % (0-1); Eosinophil# 0.06 X10^3/uL; Eosinophils% 0.8 % (0-5); Hematocrit 41.3 % (37-47); Hemoglobin 13.9 g/dL (12.0-15.0); Lymphocyte % 21.7 % (19-41); Mean Corp Hgb Conc 33.7 g/dL (32-36); Mean Corpuscular Hgb 29.2 pg (27.0-32.0); Mean Corpuscular Volume 86.8 fL (81-99); Mean Platelet Vol. 12.1 fl (6.2-12.0); Monocyte# 0.57 X10^3/uL; Monocyte% 7.7 % (0-10); NRBC Flagged by Analyzer 0 % (0-5); Neutrophil # 5.06 X10^3/uL (2.7-7.7); Neutrophil % 68.9 % (47-70); Platelet Count 198 K/mm3 (150-450); RBC Distribution Width CV 12.8 % (11.6-14.6); RBC Distribution Width SD 40.1 fl (35.1-43.9); Red Blood Count 4.76 M/mm3 (4.2-5.4); White Blood Count 7.4 K/mm3 (4.4-11.0)
[2024-09-16] MEDS: 0.9% Normal Saline (1000mL) 1,000 ML 999 ML IV (12:27)
[2024-09-16 12:36] LABS: International Normalized Ratio 0.9; Prothrombin Time (Protime)PT. 12.5 SECONDS (11.7-14.9)
[2024-09-16 12:37] LABS: Partial Thromboplast Time 24.2 Seconds (24.1-36.2)
[2024-09-16 12:38] LABS: ALB/GLOB Ratio 0.9 RATIO (0.9-2.4); AST(SGOT) 16 U/L (15-37); Alanine Aminotransfer ALT/SGPT 26 U/L (13-56); Albumin, Serum 3.3 g/dL (3.2-5.0); Alkaline Phosphatase 84 U/L (45-117); Anion Gap 6 (5-15); BUN 19 mg/dL (7-18); BUN/Creat Ratio 19.2 RATIO (10-20); Chloride 106 mmol/L (98-107); Creatinine, Serum 0.99 mg/dL (0.55-1.02); EST Glomerular Filtration Rate 65 mL/min (>60); Est Glom Filt Rate - Afr Amer 78 mL/min (>60); Estimated Creatinine Clearance 93.74 ml/min; Globulin 3.5 g/dL (2.2-4.2); Glucose 319 mg/dL (74-106); Potassium 4.3 mmol/L (3.5-5.1); Protein, Total 6.8 g/dL (6.4-8.2); Sodium Level 136 mmol/L (136-145)
[2024-09-16 12:40] LABS: Mucous, Urine 0 SEEN /hpf (<or=2+)
[2024-09-16 12:43] LABS: Color, Urine Yellow (Yellow); Glucose, Dipstick 1000 mg/dl (Normal); Ketone-Dipstick 5 mg/dl (Negative); Leukocyte Esterase-Dipstick 100 /ul (Negative); Nitrite-Dipstick Negative (Negative); Occult Blood-Urine 150 /ul (Negative); Protein-Dipstick 30 mg/dl (Negative); Urine Bilirubin Dipstick Negative (Negative); Urine Clarity Clear (Clear); Urine Urobilinogen Normal (Normal)
[2024-09-16 12:50] LABS: Bacteria 1+ /hpf (None Seen); Red Blood Cells-Urine 0-5 SEEN /hpf (0-5); Squamous Epithelial Cells - UA 0-5 SEEN /hpf (5-10); White Blood Cells 10-25 SEEN /hpf (0-5)
[2024-09-16] MEDS: Piperacil/Tazobactam 3.375 GM in 0.9% Normal Saline (50mL MB+) 50 ML IV (16:17)
--- NOTE | 2024-09-16 16:25 | HP.PCM.HOS_ITS ---
HPI - General General Date of Admission: 09/16/24 Date of Service: 09/16/24 Chief Complaint: Perineal abscess HPI Narrative TRICE ZAMBRANO, is a 44 F with obesity, type 2 diabetes, prior history of necrotizing fasciitis 2/2 history of rectal abscess who presents to the ED with concerns regarding pain over her perineum and left buttock since last 2 days She was previously seen for similar concerns of abscess of the left buttocks. At the time she was on Keflex and Bactrim at home but the infection progressed to necrotizing fasciitis. This required extensive debridement in the area extending to the ischial rectal fossa for this concern she was transferred to [facility] at the time and underwent an diverting ileostomy to allow for healing. At the time of presentation in the ED her blood pressure 11/07/1956/89, pulse of 95, respiratory rate of 20, satting well on room air, CT scan showed a questionable small enterocutaneous fistula along the left medial gluteal fold no drainable abscess was seen, umbilical hernia was present, fibroid uterus, area of fibrosis in the perianal location. [facility] Medical History Physical exam, pre-employment History of necrotising fasciitis Current use of insulin Diabetes Home Medications ?Medication ?Instructions ?Recorded ?Last Taken ?Type insulin glargine 100 unit/mL (3 60 unit subcut BID 04/23/21 09/16/24 History mL) subcutaneous pen (Basaglar KwikPen U-100 Insulin) insulin lispro 100 unit/mL 40 unit subcut TID 04/23/21 09/16/24 History subcutaneous pen (Humalog KwikPen (U-100) Insulin) atorvastatin 10 mg tablet 10 mg PO QHS 09/14/21 09/15/24 History lisinopril 5 mg tablet 5 mg PO DAILY 09/14/21 09/15/24 History ropinirole 0.5 mg tablet 1.5 mg PO QHS 09/16/24 09/15/24 History Allergy/AdvReac Type Severity Reaction Status Date / Time metformin AdvReac Nausea Verified 09/16/24 11:18 Family History Other Breast cancer Diabetes Surgical History History of cholecystectomy History of colostomy reversal History of colostomy S/P tubal ligation H/O: Social History adopted: No household members: spouse and children housing: house number of children: 2 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 pets and animals: No leisure activities: art, games and volunteer work history of recent travel: No sexually active: Yes Smoking Status: Never smoker Vital Signs Vital Signs Vital Signs: 09/16/24 10:59 09/16/24 11:02 09/16/24 12:00 Temperature 98.6 F 98.9 F 98.6 F Temperature Source Oral Oral Oral Pulse Rate 93 88 90 Respiratory Rate 16 18 20 H Blood Pressure 122/88 H 140/74 H 113/55 L Blood Pressure Mean 99 96 74 Pulse Ox 100 97 97 Oxygen Delivery Method Room Air Room Air Room Air 09/16/24 13:00 09/16/24 14:00 09/16/24 15:58 Temperature 98.6 F 98.6 F Temperature Source Oral Pulse Rate 84 92 92 Respiratory Rate 11 L 19 H 18 Blood Pressure 125/76 H 149/83 H 143/85 H Blood Pressure Mean 92 103 104 Pulse Ox 97 96 100 Oxygen Delivery Method Room Air Weight Weight: 240 lb Body Mass Index (BMI) 36.5 Physical Exam Const alert and oriented x3 HEENT normocephalic Eyes PERRL Neck no lymphadenopathy Resp normal respiratory effort Cardio regular rate and regular rhythm GI normal to inspection, nondistended, normoactive bowel sounds GI Narrative: Rectal examination was done in the presence of registered nurse. Pelvis tender area in the left gluteal cleft was present, prior induration was noted. No past-pointing noted, slight fluctuation noted Extremity normal to inspection Neuro oriented x3 Results Medical Records Data Attestation: I reviewed the patient's medical records Lab / Micro Data Attestation: I reviewed the patient's lab results. 09/16/24 11:21 09/16/24 11:21 Labs: Laboratory Results - last 24 hr 09/16/24 11:21: WBC 7.4, RBC 4.76, Hgb 13.9, Hct 41.3, MCV 86.8, MCH 29.2, MCHC 33.7, RDW Std Deviation 40.1, RDW Coeff of Meet 12.8, Plt Count 198, MPV 12.1 H, Immature Gran % (Auto) 0.400, Neut % (Auto) 68.9, Lymph % (Auto) 21.7, [place] % (Auto) 7.7, Eos % (Auto) 0.8, Baso % (Auto) 0.5, Absolute Neuts (auto) 5.1, Absolute Lymphs (auto) 1.60, Nucleated RBC % 0, PT 12.5, INR 0.9, APTT 24.2, Sodium 136, Potassium 4.3, Chloride 106, Carbon Dioxide 25.0, Anion Gap 6, BUN 19 H, Creatinine 0.99, Estim Creat Clear Calc 93.74, Est GFR (MDRD) Af Amer 78, Est GFR (MDRD) Non-Af 65, BUN/Creatinine Ratio 19.2, Glucose 319 H, Calcium 9.0, Total Bilirubin 0.30, AST 16, ALT 26, Alkaline Phosphatase 84, Total Protein 6.8, Albumin 3.3, Globulin 3.5, Albumin/Globulin Ratio 0.9 09/16/24 12:35: Lactic Acid 1.0, Urine Color Yellow, Urine Clarity Clear, Urine pH 6.0, Ur Specific [place] 1.020, Urine Protein 30 H, Urine Glucose (UA) 1000 H , Urine Ketones 5 H, Urine Occult Blood 150 H, Urine Nitrite Negative, Urine Bilirubin Negative, Urine Urobilinogen Normal, Ur Leukocyte Esterase 100 H, Urine RBC 0-5 SEEN, Urine WBC 10-25 SEEN, Ur Squamous Epith Cells 0-5 SEEN, Urine Bacteria 1+, Urine Mucus 0 SEEN Imaging Radiology Impression Pelvis CT 09/16/24 12:11 IMPRESSION: 1. 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 No drainable abscess. 2. Umbilical hernia containing fat. 3. Fibroid uterus. 4. 17 mm stable cyst of the left ovary. 5. There are areas of fibrosis in the perianal location. No evidence for drainable abscess. Electronically Signed: John Hart MD at 15:07 EST , Assessment & Plan Assessment/Plan (1) Abscess or cellulitis of perineum: PLAN: Plan 44-year-old female with history of necrotizing fasciitis, severe ischio rectal abscess, type 2 diabetes presents with concerns regarding pain and fluctuation in the left gluteal cleft similar to her prior episode. There are no features of sepsis or past-pointing on examination, CT scan did not show any deep abscess but did show a anocutaneous fistula. Given the presentation of the patient and prior history of MRSA infection as shared decision was made to get admitted and started her on IV antibiotics. The patient preferred IV antibiotics as previously she had to visit the ED multiple times and eventually required a diverting ileostomy to manage her perineal abscess. #Suspected perineal abscess #Anocutaneous fistula #Prior history of necrotizing fasciitis -Injection vancomycin for prior history of MRSA infection and suspected abscess formation -Overnight monitoring and to assess response and pain symptoms -Tylenol as needed for pain relief -Follow-up on blood cultures #Type 2 diabetes mellitus #Poorly controlled -A1c levels -Continue home insulin glargine and lispro #Hypertension -Continue lisinopril 5 mg daily #Dyslipidemia -Continue atorvastatin 10 mg at bedtime #DVT prophylaxis -Encourage mobilization -Enoxaparin 40 mg subcutaneous daily
[2024-09-16 18:45] LABS: Bedside Glucose 371 mg/dL (74-106)
[2024-09-16] MEDS: Vancomycin HCl 1,500 MG in 0.9% Normal Saline (500mL Bag) 500 ML 250 MG IV (19:01)
--- NOTE | 2024-09-16 19:52 | PCM.RX.CS ---
Consult Antibiotic Management Pharmacy has been consulted to manage selected antibiotic: Vancomycin Type of Intervention Type of Consult: New start Labs Labs: Sodium 136 mmol/L (136-145) 09/16/24 11:21 Potassium 4.3 mmol/L (3.5-5.1) 09/16/24 11:21 Chloride 106 mmol/L (98-107) 09/16/24 11:21 Carbon Dioxide 25.0 mmol/L (21.0-32.0) 09/16/24 11:21 Anion Gap 6 (5-15) 09/16/24 11:21 BUN 19 mg/dL (7-18) H 09/16/24 11:21 Creatinine 0.99 mg/dL (0.55-1.02) 09/16/24 11:21 Est GFR (MDRD) Af Amer 78 mL/min (>60) 09/16/24 11:21 Est GFR (MDRD) Non-Af 65 mL/min (>60) 09/16/24 11:21 BUN/Creatinine Ratio 19.2 RATIO (10-20) 09/16/24 11:21 Glucose 319 mg/dL (74-106) H 09/16/24 11:21 Dosing Weight Weight used for dosin kg Estimated Creatinine Clearance Estimated Creatinine Clearance: 94 Goal Trough Goal Trough: 10-15 mcg/mL Pharmacy Plan for Drug Dosing Pharmacy Plan for Drug Dosing: Pharmacy Service will continue to monitor and adjust dosing as required. Follow-Up Labs Follow-Up Labs: Trough: Vancomycin Date/Time Labs Ordered Labs to be done on [date and time ordered]: 09/18/24 @0682
[2024-09-16] MEDS: Insulin Lispro 100 UNIT/ML INSULN.PEN 40 UNIT SC (19:55)
[2024-09-16] MEDS: oxyCODONE 5 MG Tablet PO (20:49)
[2024-09-16] MEDS: Pramipexole Di-HCl 0.25 MG Tablet 0.75 MG PO (20:56)
[2024-09-16] MEDS: Atorvastatin Calcium 10 MG Tablet PO (20:56)
[2024-09-16] MEDS: Lisinopril 5 MG Tablet PO (20:57)
[2024-09-16] MEDS: Insulin Glargine-YFGN 100 UNIT/ML Pen 60 UNIT SC (21:05)
[2024-09-16] MEDS: Insulin Lispro 100 UNIT/ML INSULN.PEN SC (21:05)
[2024-09-16] MEDS: Morphine 2 MG/ML Syringe IV (22:35)
[2024-09-16 23:32] LABS: Bedside Glucose 359 mg/dL (74-106)
[2024-09-17 03:40] VITALS: BP 117/69; PULSE 84; RESP 16; TEMP 36.6; O2SAT 95
[2024-09-17] MEDS: Ondansetron 4 MG/2 ML Vial IV ×4 (04:14→22:15)
[2024-09-17] MEDS: Vancomycin HCl 1,250 MG in 0.9% Normal Saline (250mL Bag) 250 ML 167 MG IV ×2 (06:19→18:33)
[2024-09-17] MEDS: 0.9% Saline Lock 10 ML Syringe IV ×3 (06:21→18:36)
[2024-09-17] MEDS: oxyCODONE 5 MG Tablet PO (06:23)
[2024-09-17 07:14] LABS: Absolute Neutrophil Count 4.3 X10^3/uL (2.0-7.7); Basophil# 0.03 X10^3/uL; Basophil% 0.5 % (0-1); Eosinophil# 0.07 X10^3/uL; Eosinophils% 1.1 % (0-5); Hemoglobin 12.5 g/dL (12.0-15.0); Lymphocyte % 24.3 % (19-41); Mean Corp Hgb Conc 32.9 g/dL (32-36); Mean Corpuscular Hgb 29.2 pg (27.0-32.0); Mean Corpuscular Volume 88.8 fL (81-99); Mean Platelet Vol. 11.9 fl (6.2-12.0); Monocyte# 0.51 X10^3/uL; Monocyte% 7.8 % (0-10); NRBC Flagged by Analyzer 0 % (0-5); Neutrophil # 4.34 X10^3/uL (2.7-7.7); Neutrophil % 65.8 % (47-70); Platelet Count 200 K/mm3 (150-450); RBC Distribution Width SD 42.2 fl (35.1-43.9); Red Blood Count 4.28 M/mm3 (4.2-5.4); White Blood Count 6.6 K/mm3 (4.4-11.0)
[2024-09-17 07:32] LABS: AST(SGOT) 18 U/L (15-37); Alanine Aminotransfer ALT/SGPT 30 U/L (13-56); Albumin, Serum 2.9 g/dL (3.2-5.0); Alkaline Phosphatase 68 U/L (45-117); Anion Gap 6 (5-15); BUN 16 mg/dL (7-18); BUN/Creat Ratio 18.9 RATIO (10-20); Bilirubin, Direct 0.09 mg/dL (0.00-0.30); Calcium,Total 8.3 mg/dL (8.5-10.1); Chloride 110 mmol/L (98-107); Creatinine, Serum 0.84 mg/dL (0.55-1.02); EST Glomerular Filtration Rate 78 mL/min (>60); Est Glom Filt Rate - Afr Amer 94 mL/min (>60); Estimated Creatinine Clearance 98.24 ml/min; Glucose 166 mg/dL (74-106); Magnesium 1.9 mg/dL (1.6-2.6); Phosphorus 3.7 mg/dL (2.5-4.9); Protein, Total 5.9 g/dL (6.4-8.2); Prothrombin Time (Protime)PT. 13.2 SECONDS (11.7-14.9); Sodium Level 140 mmol/L (136-145)
[2024-09-17 07:56] LABS: Bedside Glucose 162 mg/dL (74-106)
[2024-09-17] MEDS: Insulin Lispro 100 UNIT/ML INSULN.PEN SC ×3 (08:57→21:59)
[2024-09-17] MEDS: Insulin Lispro 100 UNIT/ML INSULN.PEN 40 UNIT SC ×2 (08:58→12:15)
[2024-09-17] MEDS: Enoxaparin 40 MG/0.4 ML Syringe SC (08:59)
[2024-09-17] MEDS: Insulin Glargine-YFGN 100 UNIT/ML Pen 60 UNIT SC ×2 (08:59→21:59)
--- NOTE | 2024-09-17 09:14 | EX.PCM.CON.S ---
Assessment & Plan Assessment/Plan (1) Abscess or cellulitis of perineum: PLAN: I have been consulted in conjunction with Dr. Solo. He has independently evaluate this patient. Patient is a 44 y/o F who presents with pain in the gluteal fold secondary to cellulitis. Patient with history of necrotizing fasciitis in . No drainable abscess is noted on examination or on CT imaging of the pelvis. 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 We have discussed the plan to continue with IV antibiotics at this time with the patient. No surgical intervention is being recommended at this time. Patient is aware that if conservative measures fail, surgical intervention may be needed. She is agreeable with the plan of IV antibiotics and conservative measures at this time. Patient has had the opportunity to ask and have questions answered. Patient verbally understands and agrees with the plan. Patient has been discussed with the hospitalist. Thank you for allowing us to participate in this patient's care. HPI Consult Data Date of Consult: 09/17/24 HPI Narrative Reason for Consultation: left gluteal abscess HPI Narrative: TRICE ZAMBRANO, is a 44 F who presents with a 2 day history of increasing pain in the left gluteal fold. She notes a previous history of necrotizing fasciitis of the perineum. She notes this occurred in . She states the abscess started similar to the current abscess. She notes Dr. Brice opened the abscess in 2020 and she was placed on oral antibiotics and was sent home. Patient states her blood sugars were out of control and she was not improving from opening the abscess. She states she returned to [facility] and was admitted to ICU. She was transferred to [facility] and in ICU for several days. She notes she underwent a large debridement and colostomy due to stool incontinence. She notes her ostomy was reversed. She has been having normal bowel function without any constipation or diarrhea. She states when this current pain started she noted her blood sugars were elevated. She notes within 24 hours the small pimple-like structure elongated in size and went into the perineum. She presented to the ED for treatment. She notes since being on IV antibiotics the pain has improved. She notes only tenderness is with palpation. She describes the tenderness as pressure. She notes a small amount of bloody/white drainage has been expressed. 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 No drainable abscess. Umbilical hernia containing fat. Fibroid uterus. 17 mm stable cyst of the left ovary. There are areas of fibrosis in the perianal location. No evidence for drainable abscess. Admitting WBC is 7.4, Hgb 13.9, Hct 41.3, Plt 198. Lactic acid 1.0. Glucose 319--> 166. [facility] Medical History Physical exam, pre-employment History of necrotising fasciitis Current use of insulin Diabetes Home Medications ?Medication ?Instructions ?Recorded ?Last Taken ?Type insulin glargine 100 unit/mL (3 60 unit subcut BID 04/23/21 09/16/24 History mL) subcutaneous pen (Basaglar KwikPen U-100 Insulin) insulin lispro 100 unit/mL 40 unit subcut TID 04/23/21 09/16/24 History subcutaneous pen (Humalog KwikPen (U-100) Insulin) atorvastatin 10 mg tablet 10 mg PO QHS 09/14/21 09/15/24 History lisinopril 5 mg tablet 5 mg PO DAILY 09/14/21 09/15/24 History ropinirole 0.5 mg tablet 1.5 mg PO QHS 09/16/24 09/15/24 History Allergy/AdvReac Type Severity Reaction Status Date / Time metformin AdvReac Nausea Verified 09/16/24 11:18 Family History Other Breast cancer Diabetes Surgical History History of cholecystectomy History of colostomy reversal History of colostomy S/P tubal ligation H/O: Social History adopted: No household members: spouse and children housing: house number of children: 2 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 pets and animals: No leisure activities: art, games and volunteer work history of recent travel: No sexually active: Yes Smoking Status: Never smoker ROS Constitutional Constitutional: Reports lethargy and malaise Eyes Eyes: Reports systems reviewed and no addt'l complaints, except as documented ENT HEENT: Reports systems reviewed and no addt'l complaints, except as documented Cardiovascular Cardiovascular: Reports systems reviewed and no addt'l complaints, except as documented Respiratory/Chest Respiratory/Chest: Reports systems reviewed and no addt'l complaints, except as documented Gastrointestinal Gastrointestinal: Reports systems reviewed and no addt'l complaints, except as documented Genitourinary Genitourinary: Reports systems reviewed and no addt'l complaints, except as documented Musculoskeletal Musculoskeletal: Reports systems reviewed and no addt'l complaints, except as documented Integumentary Integumentary: Reports systems reviewed and no addt'l complaints, except as documented Neurologic Neurologic: Reports systems reviewed and no addt'l complaints, except as documented Psychiatric Psychiatric: Reports systems reviewed and no addt'l complaints, except as documented Endocrine Endocrinology: Reports systems reviewed and no addt'l complaints, except as documented Hematologic/Lymphatic Hematologic/Lymphatic: Reports systems reviewed and no addt'l complaints, except as documented Allergic/Immunologic Allergic/Immunologic: Reports systems reviewed and no addt'l complaints, except as documented Physical Exam Const alert, oriented x3 and no apparent distress HEENT normocephalic and head/scalp atraumatic Eyes PERRL Neck full ROM Resp normal respiratory effort and clear to auscultation bilaterally Cardio regular rate and regular rhythm GI soft to palpation GI Narrative: Left gluteal fold- very small pimple-like structure with no erythema surrounding the area. Very tender to palpation. No fluctuance noted. Tenderness to palpation into the perineum. No erythema is noted and no distinct abscess structure within the perineum. No active drainage noted. no CVA tenderness Back/Spine no CVA tenderness Extremity normal to inspection Skin Skin Narrative: Left gluteal fold tenderness General Skin Exam: Negative for fluctuance Neuro no focal motor deficits and no sensory deficits noted Psych mental status grossly normal, thought process normal and cooperative Lab / Micro Data 09/17/24 06:20 09/17/24 06:20 Labs: Laboratory Results - last 24 hr 09/16/24 11:21: WBC 7.4, RBC 4.76, Hgb 13.9, Hct 41.3, MCV 86.8, MCH 29.2, MCHC 33.7, RDW Std Deviation 40.1, RDW Coeff of Meet 12.8, Plt Count 198, MPV 12.1 H, Immature Gran % (Auto) 0.400, Neut % (Auto) 68.9, Lymph % (Auto) 21.7, [place] % (Auto) 7.7, Eos % (Auto) 0.8, Baso % (Auto) 0.5, Absolute Neuts (auto) 5.1, Absolute Lymphs (auto) 1.60, Nucleated RBC % 0, PT 12.5, INR 0.9, APTT 24.2, Sodium 136, Potassium 4.3, Chloride 106, Carbon Dioxide 25.0, Anion Gap 6, BUN 19 H, Creatinine 0.99, Estim Creat Clear Calc 93.74, Est GFR (MDRD) Af Amer 78, Est GFR (MDRD) Non-Af 65, BUN/Creatinine Ratio 19.2, Glucose 319 H, Calcium 9.0, Total Bilirubin 0.30, AST 16, ALT 26, Alkaline Phosphatase 84, Total Protein 6.8, Albumin 3.3, Globulin 3.5, Albumin/Globulin Ratio 0.9 09/16/24 12:35: Lactic Acid 1.0, Urine Color Yellow, Urine Clarity Clear, Urine pH 6.0, Ur Specific [place] 1.020, Urine Protein 30 H, Urine Glucose (UA) 1000 H, Urine Ketones 5 H, Urine Occult Blood 150 H, Urine Nitrite Negative, Urine Bilirubin Negative, Urine Urobilinogen Normal, Ur Leukocyte Esterase 100 H, Urine RBC 0-5 SEEN, Urine WBC 10-25 SEEN, Ur Squamous Epith Cells 0-5 SEEN, Urine Bacteria 1+, Urine Mucus 0 SEEN 09/16/24 18:20: POC Glucose 371 H 09/16/24 21:05: POC Glucose 359 H 09/17/24 06:20: WBC 6.6, RBC 4.28, Hgb 12.5, Hct 38.0, MCV 88.8, MCH 29.2, MCHC 32.9, RDW Std Deviation 42.2, RDW Coeff of Meet 13.0, Plt Count 200, MPV 11.9, Immature Gran % (Auto) 0.500, Neut % (Auto) 65.8, Lymph % (Auto) 24.3, [place] % (Auto) 7.8, Eos % (Auto) 1.1, Baso % (Auto) 0.5, Absolute Neuts (auto) 4.3, Absolute Lymphs (auto) 1.60, Nucleated RBC % 0, PT 13.2, INR 1.0, Sodium 140, Potassium 4.0, Chloride 110 H, Carbon Dioxide 24.0, Anion Gap 6, BUN 16, Creatinine 0.84, Estim Creat Clear Calc 98.24, Est GFR (MDRD) Af Amer 94, Est GFR (MDRD) Non-Af 78, BUN/Creatinine Ratio 18.9, Glucose 166 H, Calcium 8.3 L, Phosphorus 3.7, Magnesium 1.9, Total Bilirubin 0.40, Direct Bilirubin 0.09, AST 18, ALT 30, Alkaline Phosphatase 68, Total Protein 5.9 L, Albumin 2.9 L, Globulin 3.0, Albumin/Globulin Ratio 1.0, TSH 1.450 09/17/24 07:27: POC Glucose 162 H Imaging Radiology Impression Pelvis CT 09/16/24 12:11 IMPRESSION: 1. 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 No drainable abscess. 2. Umbilical hernia containing fat. 3. Fibroid uterus. 4. 17 mm stable cyst of the left ovary. 5. There are areas of fibrosis in the perianal location. No evidence for drainable abscess. Electronically Signed: John Hart MD at 15:07 EST , Charges/Coding Visit Charges Inpatient E&M: 36398 Init Hosp L2
[2024-09-17 10:19] LABS: Hemoglobin A1c 12.7 % (3.8-5.6)
--- NOTE | 2024-09-17 10:20 | CASEMGMT ---
WINNIE DAVID Assessment: Face to Face with pt for initial transition planning/care coordination assessment. RN JOANN introduced self and role at [facility], pt voices understanding and consents to assessment. Pt is A&O x4 and answers all questions appropriately at this time. Pt lying in bed in no distress. Care providers, pharmacy, and demographics verified/updated. Strata: 3 Admitting Dx: Rectal Abscess PCP: [facility] Specialists: Denies Preferred Pharmacy: [facility] Insurance: [employer] Prescription Benefit: yes LNOK: Daughter, Viviane. Living Arrangements: Pt lives with son and daughter in a 1 story home with no steps to enter. ADLs: Pt reports I with ADLs and IADLs. Transportation: Pt drives self and denies concerns with transportation. DME: Denies HHC/SNF: Denies Hx of. Pt states no concerns with going home at time of dc. Pt states no further concerns/needs. CM to follow. Advised pt to ask CM if any further question/concerns/needs arise, voices understanding. Pt Goal: Home Plan: Home, follow for wound care. Katherine ZHOU CM
[2024-09-17 11:29] LABS: Bedside Glucose 160 mg/dL (74-106)
--- NOTE | 2024-09-17 13:36 | CON.PCM.ID_ITS ---
Assessment & Plan Assessment/Plan (1) Abscess or cellulitis of perineum: PLAN: Improving, cont empiric vanc/zosyn, plan on home soon with po abx. CT with ? fistula, surgery following. Will follow, thank you HPI Consult Data Date of Consult: 09/17/24 HPI Narrative Reason for Consultation: skin infection HPI Narrative: TRICE ZAMBRANO, is a 44 F with h/o DM and perineal infection complicated by necrotizing fasciitis in 2020, presented with several days L gluteal pain, redness, swelling. Able to get some drainage out at home, but sx worsened, had chills. Came to ED, admitted on vanc/zosyn, feeling better today. Full ROS performed and neg except as noted above. [facility] Medical History Physical exam, pre-employment History of necrotising fasciitis Current use of insulin Diabetes Home Medications ?Medication ?Instructions ?Recorded ?Last Taken ?Type insulin glargine 100 unit/mL (3 60 unit subcut BID 04/23/21 09/16/24 History mL) subcutaneous pen (Basaglar KwikPen U-100 Insulin) insulin lispro 100 unit/mL 40 unit subcut TID 04/23/21 09/16/24 History subcutaneous pen (Humalog KwikPen (U-100) Insulin) atorvastatin 10 mg tablet 10 mg PO QHS 09/14/21 09/15/24 History lisinopril 5 mg tablet 5 mg PO DAILY 09/14/21 09/15/24 History ropinirole 0.5 mg tablet 1.5 mg PO QHS 09/16/24 09/15/24 History Allergy/AdvReac Type Severity Reaction Status Date / Time metformin AdvReac Nausea Verified 09/16/24 11:18 Family History Other Breast cancer Diabetes Surgical History History of cholecystectomy History of colostomy reversal History of colostomy S/P tubal ligation H/O: Social History adopted: No household members: spouse and children housing: house number of children: 2 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 pets and animals: No leisure activities: art, games and volunteer work history of recent travel: No sexually active: Yes Smoking Status: Never smoker Physical Exam Const alert, oriented x3 and no apparent distress General Appearance: cooperative HEENT normocephalic and head/scalp atraumatic Eyes PERRL and EOMs intact bilaterally Neck supple and No nodes Resp normal air movement and clear to auscultation bilaterally Cardio regular rate and regular rhythm GI soft to palpation, non-tender and non-distended Extremity General Extremity: Negative for edema Skin Skin Narrative: L juliet-rectal area, minimal induration/tenderness, no drainage Neuro CN's II-XII intact bilaterally Lab / Micro Data Attestation: I reviewed the patient's lab results. 09/17/24 06:20 09/17/24 06:20 Labs: Laboratory Results - last 24 hr 09/16/24 18:20: POC Glucose 371 H 09/16/24 21:05: POC Glucose 359 H 09/17/24 06:20: WBC 6.6, RBC 4.28, Hgb 12.5, Hct 38.0, MCV 88.8, MCH 29.2, MCHC 32.9, RDW Std Deviation 42.2, RDW Coeff of Meet 13.0, Plt Count 200, MPV 11.9, Immature Gran % (Auto) 0.500, Neut % (Auto) 65.8, Lymph % (Auto) 24.3, [place] % (Auto) 7.8, Eos % (Auto) 1.1, Baso % (Auto) 0.5, Absolute Neuts (auto) 4.3, Absolute Lymphs (auto) 1.60, Nucleated RBC % 0, PT 13.2, INR 1.0, Sodium 140, Potassium 4.0, Chloride 110 H, Carbon Dioxide 24.0, Anion Gap 6, BUN 16, Creatinine 0.84, Estim Creat Clear Calc 98.24, Est GFR (MDRD) Af Amer 94, Est GFR (MDRD) Non-Af 78, BUN/Creatinine Ratio 18.9, Glucose 166 H, Hemoglobin A1c 12.7 H, Calcium 8.3 L, Phosphorus 3.7, Magnesium 1.9, Total Bilirubin 0.40, Direct Bilirubin 0.09, AST 18, ALT 30, Alkaline Phosphatase 68, Total Protein 5.9 L, Albumin 2.9 L, Globulin 3.0, Albumin/Globulin Ratio 1.0, TSH 1.450 09/17/24 07:27: POC Glucose 162 H 09/17/24 11:05: POC Glucose 160 H Micro: Microbiology 09/16/24 12:35 Urine, Clean Catch Urine Culture - Preliminary Beta streptococcus Imaging Radiology Impression Pelvis CT 09/16/24 12:11 IMPRESSION: 1. 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 No drainable abscess. 2. Umbilical hernia containing fat. 3. Fibroid uterus. 4. 17 mm stable cyst of the left ovary. 5. There are areas of fibrosis in the perianal location. No evidence for drainable abscess. Electronically Signed: John Hart MD at 15:07 EST ,
[2024-09-17 13:55] LABS: Bedside Glucose 102 mg/dL (74-106)
[2024-09-17] MEDS: Glucerna Shake 120 ML LIQUID PO (14:54)
[2024-09-17 15:09] LABS: Bedside Glucose 102 mg/dL (74-106)
[2024-09-17 15:17] VITALS: BP 136/74; PULSE 88; RESP 18; TEMP 36.8; O2SAT 100
[2024-09-17 16:25] LABS: Bedside Glucose 106 mg/dL (74-106)
[2024-09-17] MEDS: Piperacil/Tazobactam 3.375 GM in 0.9% Normal Saline (50mL MB+) 50 ML IV ×2 (16:50→22:03)
[2024-09-17] MEDS: Insulin Lispro 100 UNIT/ML INSULN.PEN 30 UNIT SC (16:54)
--- NOTE | 2024-09-17 17:01 | PCM.PN.HOSP ---
Subjective Subjective Patient was seen and examined today, I talk with general surgery about her care, do not feel that she needs surgical intervention. I also talked with infectious diseases and they felt that the patient was improving on IV antibiotics and recommended continuing Zosyn and vancomycin. Patient is diabetic and her sugars have been running low this afternoon so I have readjusted her immediate release insulin. Objective Data Objective Data Vital Signs: Vital Signs Temp Pulse Resp BP Pulse Ox O2 Del Method 98.2 F 88 18 136/74 H 100 Room Air 09/17/24 15:17 09/17/24 15:17 09/17/24 15:17 09/17/24 15:17 09/17/24 15:17 09/17/24 15:17 Oxygen Delivery Method Room Air Weight: 86.183 kg Body Mass Index (BMI) 28.8 Intake & Output: Intake and Output for Last 24 Hours 09/15/24 09/16/24 09/17/24 23:59 23:59 23:59 Intake Total 1580 / 1780 1075 / 1075 Balance 1580 / 1780 1075 / 1075 Lab / Micro Data 09/17/24 06:20 09/17/24 06:20 Labs: Laboratory Results - last 24 hr 09/16/24 18:20: POC Glucose 371 H 09/16/24 21:05: POC Glucose 359 H 09/17/24 06:20: WBC 6.6, RBC 4.28, Hgb 12.5, Hct 38.0, MCV 88.8, MCH 29.2, MCHC 32.9, RDW Std Deviation 42.2, RDW Coeff of Meet 13.0, Plt Count 200, MPV 11.9, Immature Gran % (Auto) 0.500, Neut % (Auto) 65.8, Lymph % (Auto) 24.3, [place] % (Auto) 7.8, Eos % (Auto) 1.1, Baso % (Auto) 0.5, Absolute Neuts (auto) 4.3, Absolute Lymphs (auto) 1.60, Nucleated RBC % 0, PT 13.2, INR 1.0, Sodium 140, Potassium 4.0, Chloride 110 H, Carbon Dioxide 24.0, Anion Gap 6, BUN 16, Creatinine 0.84, Estim Creat Clear Calc 98.24, Est GFR (MDRD) Af Amer 94, Est GFR (MDRD) Non-Af 78, BUN/Creatinine Ratio 18.9, Glucose 166 H, Hemoglobin A1c 12.7 H, Calcium 8.3 L, Phosphorus 3.7, Magnesium 1.9, Total Bilirubin 0.40, Direct Bilirubin 0.09, AST 18, ALT 30, Alkaline Phosphatase 68, Total Protein 5.9 L, Albumin 2.9 L, Globulin 3.0, Albumin/Globulin Ratio 1.0, TSH 1.450 09/17/24 07:27: POC Glucose 162 H 09/17/24 11:05: POC Glucose 160 H 09/17/24 13:37: POC Glucose 102 09/17/24 14:51: POC Glucose 102 09/17/24 16:08: POC Glucose 106 Micro: Microbiology 09/16/24 12:35 Urine, Clean Catch Urine Culture - Preliminary Beta streptococcus Physical Exam Const alert, oriented x3, no apparent distress and healthy appearing General Appearance: cooperative, well kempt and well developed Orientation / Consciousness: awake, oriented to person, oriented to place and oriented to time HEENT normocephalic and moist oral mucous membranes Eyes PERRL, EOMs intact bilaterally and conjunctivae normal Neck supple, no JVD and thyroid normal General: trachea midline Resp normal respiratory effort, no retractions, no use of accessory muscles and clear to auscultation bilaterally Auscultation: Negative for rales, rhonchi or wheezes Cardio regular rate, regular rhythm, S1 normal heart sound, S2 normal heart sound, no murmurs, no rub and no gallops GI normal to inspection, nondistended, normoactive bowel sounds, soft to palpation, non-tender and non-distended Extremity no clubbing, cyanosis or edema Skin Skin Narrative: The area around the perineal area was not examined at this time Neuro oriented x3, CN's II-XII intact bilaterally, no focal motor deficits and no sensory deficits noted Sensorium / Orientation: awake and alert Speech: speech normal Psych affect normal Assessment & Plan Assessment/Plan (1) Abscess or cellulitis of perineum: PLAN: Plan 1. Abscess to the perineal area-patient has a past history of MRSA, her white count remains normal at this time, she will remain on Zosyn and vancomycin per ID #2 type 1 diabetes, under poor control-patient's insulin will be adjusted as needed, patient's hemoglobin A1c was 12.7 #3 hyperlipidemia-patient is on a statin Total clinical time spent by myself addressing patient's medical issues, reviewing all of her data, and collaborating with patient's care team: 35 minutes Charges/Coding Visit Charges Inpatient E&M: 23810 Subs Hosp L2
[2024-09-17 21:54] VITALS: BP 150/71; PULSE 94; RESP 18; TEMP 37; O2SAT 96
[2024-09-17] MEDS: Pramipexole Di-HCl 0.25 MG Tablet 0.75 MG PO (22:02)
[2024-09-17] MEDS: Atorvastatin Calcium 10 MG Tablet PO (22:02)
[2024-09-17] MEDS: Lisinopril 5 MG Tablet PO (22:02)
[2024-09-17 22:26] LABS: Bedside Glucose 246 mg/dL (74-106)
[2024-09-18 05:37] VITALS: BP 145/74; PULSE 90; RESP 18; TEMP 36.7; O2SAT 97
[2024-09-18] MEDS: Piperacil/Tazobactam 3.375 GM in 0.9% Normal Saline (50mL MB+) 50 ML IV (05:39)
[2024-09-18] MEDS: Ondansetron 4 MG/2 ML Vial IV ×2 (05:43→10:20)
[2024-09-18 07:05] LABS: Bedside Glucose 191 mg/dL (74-106)
[2024-09-18 07:40] LABS: Vancomycin, Trough Level 10.3 ug/mL (5.0-15.0)
--- NOTE | 2024-09-18 07:55 | PCM.RX.CS ---
Consult Antibiotic Management Pharmacy has been consulted to manage selected antibiotic: Vancomycin Type of Intervention Type of Consult: Follow-up Suspected Infection Suspected Infection: Skin/Soft tissue Prior Doses of Antibiotics Prior Doses of Antibiotics Received/Current Regimen: current dose is 1250mg IV q12h Labs Labs: Sodium 140 mmol/L (136-145) 09/17/24 06:20 Potassium 4.0 mmol/L (3.5-5.1) 09/17/24 06:20 Chloride 110 mmol/L (98-107) H 09/17/24 06:20 Carbon Dioxide 24.0 mmol/L (21.0-32.0) 09/17/24 06:20 Anion Gap 6 (5-15) 09/17/24 06:20 BUN 16 mg/dL (7-18) 09/17/24 06:20 Creatinine 0.84 mg/dL (0.55-1.02) 09/17/24 06:20 Est GFR (MDRD) Af Amer 94 mL/min (>60) 09/17/24 06:20 Est GFR (MDRD) Non-Af 78 mL/min (>60) 09/17/24 06:20 BUN/Creatinine Ratio 18.9 RATIO (10-20) 09/17/24 06:20 Glucose 166 mg/dL (74-106) H 09/17/24 06:20 Vancomycin Trough 10.3 ug/mL (5.0-15.0) 09/18/24 06:30 Microbiology Microbiology: Microbiology 09/16/24 12:35 Urine, Clean Catch Urine Culture - Preliminary Beta streptococcus Dosing Weight Weight used for dosin kg Estimated Creatinine Clearance Estimated Creatinine Clearance: 98 ml/min Goal Trough Goal Trough: 10-15 mcg/mL Pharmacy Plan for Drug Dosing Pharmacy Plan for Drug Dosing: The vanc trough drawn at 06:30 today (approx 12 hours after the previous dose) was 10.3. This is in goal range so will keep same dose. Repeat a trough in 2 days per protocol. Pharmacy Service will continue to monitor and adjust dosing as required. Follow-Up Labs Follow-Up Labs: Trough: Vancomycin Date/Time Labs Ordered Labs to be done on [date and time ordered]: 09/20/24 06:30
--- NOTE | 2024-09-18 07:57 | PN.SURG_ITS ---
Subjective Subjective Patient evaluated resting comfortably in bed. She notes nausea this morning. She notes perineal pain is much improved on IV antibiotics. She denies any drainage from the area. Objective Data Objective Data Vital Signs: Vital Signs Temp Pulse Resp BP Pulse Ox O2 Del Method 98.1 F 90 18 145/74 H 97 Room Air 09/18/24 05:37 09/18/24 05:37 09/18/24 05:37 09/18/24 05:37 09/18/24 05:37 09/18/24 05:37 Oxygen Delivery Method Room Air Weight: 190 lb Body Mass Index (BMI) 28.8 Intake & Output: Intake and Output for Last 24 Hours 09/16/24 09/17/24 09/18/24 23:59 23:59 23:59 Intake Total 1580 / 1780 1400 / 1400 50 / 50 Balance 1580 / 1780 1400 / 1400 50 / 50 Lab / Micro Data 09/17/24 06:20 09/17/24 06:20 Labs: Laboratory Results - last 24 hr 09/17/24 06:20: Hemoglobin A1c 12.7 H 09/17/24 11:05: POC Glucose 160 H 09/17/24 13:37: POC Glucose 102 09/17/24 14:51: POC Glucose 102 09/17/24 16:08: POC Glucose 106 09/17/24 21:58: POC Glucose 246 H 09/18/24 05:40: POC Glucose 191 H 09/18/24 06:30: Vancomycin Trough 10.3 Micro: Microbiology 09/16/24 12:35 Urine, Clean Catch Urine Culture - Preliminary Beta streptococcus Physical Exam GI GI Narrative: Perineum region- No erythema noted. Moderate tenderness superior to the patient's previous scar, however this is improved to palpation. Assessment & Plan Assessment/Plan (1) Abscess or cellulitis of perineum: PLAN: I am following this patient in conjunction with Dr. Solo. He will independently evaluate this patient. Patient's symptoms improving on IV antibiotics No surgical intervention is planned We will continue to monitor this patient. Charges/Coding Visit Charges Inpatient E&M: 34981 [facility] Hosp L1
[2024-09-18 08:00] VITALS: BP 144/72; PULSE 79; RESP 18; TEMP 37.1; O2SAT 100
[2024-09-18] MEDS: Vancomycin HCl 1,250 MG in 0.9% Normal Saline (250mL Bag) 250 ML 167 MG IV (08:12)
[2024-09-18] MEDS: Insulin Lispro 100 UNIT/ML INSULN.PEN 30 UNIT SC ×2 (08:48→12:49)
[2024-09-18] MEDS: 0.9% Saline Lock 10 ML Syringe IV (10:20)
[2024-09-18] MEDS: Enoxaparin 40 MG/0.4 ML Syringe SC (10:22)
[2024-09-18] MEDS: Insulin Glargine-YFGN 100 UNIT/ML Pen 60 UNIT SC (10:23)
--- NOTE | 2024-09-18 10:38 | PCM.PN.ID ---
Physical Exam Narrative Feeling better, no fever, pain improved, no drainage Const alert and no apparent distress General Appearance: cooperative Resp normal air movement and clear to auscultation bilaterally Cardio regular rate and regular rhythm GI soft to palpation, non-tender and non-distended Skin no rashes or lesions noted ID ID: Route of nutrition/ use of supplements: [] Nutritional Intake: [] IV Site: [] Mckeon Catheter: [] Assessment & Plan Assessment/Plan (1) Abscess or cellulitis of perineum: PLAN: Improving, on empiric vanc/zosyn, ok for home with one week po doxy and augmentin. Will follow
--- NOTE | 2024-09-18 10:44 | PCM.PN.HOSP ---
Subjective Subjective Patient was seen and examined today, her blood sugar this morning was 191. Patient has no complaints of any increased pain in the perineal area. Patient is currently on Zosyn and vancomycin. Objective Data Objective Data Vital Signs: Vital Signs Temp Pulse Resp BP Pulse Ox O2 Del Method 98.7 F 79 18 144/72 H 100 Room Air 09/18/24 08:00 09/18/24 08:00 09/18/24 08:00 09/18/24 08:00 09/18/24 08:00 09/18/24 08:03 Oxygen Delivery Method Room Air Weight: 86.183 kg Body Mass Index (BMI) 28.8 Intake & Output: Intake and Output for Last 24 Hours 09/16/24 09/17/24 09/18/24 23:59 23:59 23:59 Intake Total 1580 / 1780 1400 / 1400 356.88 / 356.88 Balance 1580 / 1780 1400 / 1400 356.88 / 356.88 Lab / Micro Data 09/17/24 06:20 09/17/24 06:20 Labs: Laboratory Results - last 24 hr 09/17/24 11:05: POC Glucose 160 H 09/17/24 13:37: POC Glucose 102 09/17/24 14:51: POC Glucose 102 09/17/24 16:08: POC Glucose 106 09/17/24 21:58: POC Glucose 246 H 09/18/24 05:40: POC Glucose 191 H 09/18/24 06:30: Vancomycin Trough 10.3 Micro: Microbiology 09/16/24 12:35 Urine, Clean Catch Urine Culture - Preliminary Streptococcus group B Physical Exam Narrative alert, oriented x3, no apparent distress and healthy appearing General Appearance: cooperative, well kempt and well developed Orientation / Consciousness: awake, oriented to person, oriented to place and oriented to time HEENT normocephalic and moist oral mucous membranes Eyes PERRL, EOMs intact bilaterally and conjunctivae normal Neck supple, no JVD and thyroid normal General: trachea midline Resp normal respiratory effort, no retractions, no use of accessory muscles and clear to auscultation bilaterally Auscultation: Negative for rales, rhonchi or wheezes Cardio regular rate, regular rhythm, S1 normal heart sound, S2 normal heart sound, no murmurs, no rub and no gallops GI normal to inspection, nondistended, normoactive bowel sounds, soft to palpation, non-tender and non-distended Extremity no clubbing, cyanosis or edema Skin Skin Narrative: The area around the perineal area was not examined at this time Neuro oriented x3, CN's II-XII intact bilaterally, no focal motor deficits and no sensory deficits noted Sensorium / Orientation: awake and alert Speech: speech normal Psych affect normal Assessment & Plan Assessment/Plan (1) Abscess of deep perineal space: (2) Abscess or cellulitis of perineum: PLAN: Plan 1. Abscess to the perineal area-infectious diseases wrote in their note today the patient could be discharged with 1 week of doxycycline and Augmentin, I will discharge the patient today #2 type 1 diabetes, under poor control-patient's insulin will be adjusted as needed, patient's hemoglobin A1c was 12.7 #3 hyperlipidemia-patient is on a statin Total clinical time spent by myself addressing patient's medical issues, reviewing all of her data, and collaborating with patient's care team: 35 minutes
--- NOTE | 2024-09-18 10:56 | DCINST_ITS ---
Discharge Instructions Diet Discharge Diet: - (Resume home diet) Activity Discharge Activity: Return to Normal Activity Return to work on:: 09/18/24 Weight Bearing Status: Full weight bearing Follow Up Care Test Results: Test results from this visit will be discussed in further detail at your follow- up appointment, if applicable. Discharge Plan Admission Admit Date/Time: 09/16/24 16:20 Primary Reason for Your Visit: Cellulitis of the perineum Attending Provider: Jorge Frazier Primary Care Provider: Joaquin Huitron Consulting Providers: Ken Sosa; Tristin Solo; Fran Daley Discharge Orders/Prescriptions Prescriptions: New doxycycline monohydrate 100 mg Capsule 100 mg PO BID Qty: 14 0RF Rx Instructions: Take with food amoxicillin-pot clavulanate 875-125 mg Tablet 1 tab PO BID Qty: 14 0RF Rx Instructions: Take with food Continued insulin lispro [Humalog KwikPen Insulin] 100 unit/mL insulin pen 40 unit SUBCUT TID Patient Comments: INJECT 40 UNITS SUBCUTANEOULSY WITH MEALS insulin glargine [Basaglar KwikPen U-100 Insulin] 100 unit/mL (3 mL) insulin pen 60 unit SUBCUT BID Patient Comments: INJECT 40 UNITS SUBCUTANEOUSLY TWICE DAILY atorvastatin 10 mg tablet 10 mg PO QHS lisinopril 5 mg tablet 5 mg PO DAILY ropinirole 0.5 mg tablet 1.5 mg PO QHS Referrals / Follow Up: Joaquin Huitron MD [Primary Care Provider] - In 1 Week Disposition Disposition (needs filled in before D/C Order can be placed): Home, Self Care
--- NOTE | 2024-09-18 11:02 | DS.PCM_ITS ---
Providers Date of Admission: 09/16/24 Date of Discharge: 09/18/24 Primary Care Physician: Dr. Joaquin Huitron MD Consultations 09/16/24 17:07 Consult: Infectious Disease Routine Consulting Provider: Fran Daley Reason for Consult: Recurrent abscess EMERGENT Consult: No Notified: Yes Date Notified: 09/16/24 Time Notified: 16:23 Method of Notification: Text 09/17/24 07:46 Consult: General Surgery Routine Consulting Provider: Tristin Solo Reason for Consult: abcess EMERGENT Consult: No Notified: Yes Date Notified: 09/17/24 Time Notified: 07:46 Method of Notification: Verbal Reason For Visit: RECTAL ABSCESS Diagnosis Discharge Diagnosis (1) Abscess of deep perineal space: Status: Acute Code(s): N34.0 - Urethral abscess (2) Abscess or cellulitis of perineum: Status: Acute Plan 1. Abscess in the perineal area with cellulitis-infectious diseases wrote in their note today the patient could be discharged with 1 week of doxycycline and Augmentin, I will discharge the patient today #2 type 1 diabetes, under poor control-patient's insulin will be adjusted as needed, patient's hemoglobin A1c was 12.7 #3 hyperlipidemia-patient is on a statin Total clinical time spent by myself addressing patient's medical issues, reviewing all of her data, and collaborating with patient's care team: 35 minutes Medications at Discharge Home Medications insulin glargine 100 unit/mL (3 mL) subcutaneous pen (Basaglar KwikPen U-100 Insulin) 60 unit subcut BID 04/23/21 insulin lispro 100 unit/mL subcutaneous pen (Humalog KwikPen (U-100) Insulin) 40 unit subcut TID 04/23/21 atorvastatin 10 mg tablet 10 mg PO QHS 09/14/21 lisinopril 5 mg tablet 5 mg PO DAILY 09/14/21 ropinirole 0.5 mg tablet 1.5 mg PO QHS 09/16/24 amoxicillin 875 mg-potassium clavulanate 125 mg tablet 1 tab PO BID #14 tabs 09/18/24 doxycycline monohydrate 100 mg capsule 100 mg PO BID #14 caps 09/18/24 hydrocodone-acetaminophen 5-325mg 5mg-325mg 1 tab PO Q6H PRN pain 7 days #20 tabs 09/18/24 ondansetron HCl 4 mg tablet 4 mg PO Q6H PRN nausea and vomiting #14 tabs 09/18/24 Hospital Course Operations None Procedures None Summary of Care Provided Minutes Spent on Discharge: 30 Hospital Course: This 44-year-old white female was seen in the emergency room at [facility] with complaints of pain with fever and chills in the perineal area. Patient has had a past history of infections with surgeries that were carried out and [facility] in 2020 2021. Patient went to urgent care for evaluation was referred to the ER for further evaluation. Labs obtained in the emergency room showed a normal CBC, chemistry profile was remarkable for glucose of 319, there were 10-25 WBCs on her UA and +1 bacteria but there was also squamous epithelial cells noted. 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 Patient was felt to have cellulitis and possible abscess to the perineal area, she was admitted to [place] [id number] and placed on IV antibiotics. Patient was seen by general surgery who did not feel that she had an indication for surgery. She was also seen by infectious diseases. Patient's hemoglobin A1c was elevated indicating that she had poor control of her blood sugars as an outpatient. On 09/18/2024, patient was seen and examined: On examination she appeared in good health and spirits, she does not appear to be in any distress. Vital signs as documented. Skin warm and dry and without overt rashes. Neck without JVD, thyroid appears normal, trachea is midline, neck is supple. Lungs clear, normal air movement was noted. Heart exam notable for regular rhythm, normal sounds and absence of murmurs, rubs or gallops. Abdomen unremarkable and without evidence of organomegaly, masses, or abdominal aortic enlargement, bowel sounds are present in all 4 quadrants, no abdominal tenderness was noted. Extremities nonedematous, no cyanosis was noted, no clubbing was noted. Neuro: Cranial nerves II through XII are grossly intact, no focal motor deficits were noted, sensation to light touch and pinprick is intact, motor exam 5/5 throughout. Psych: Patient is alert and oriented x3, she does not appear anxious or depressed, she does not appear agitated. Patient was felt to be stable for discharge home on 09/18/2024. Weight / BMI Weight Weight: 86.183 kg Body Mass Index (BMI) 28.8 ABG / Lab / Microbiology Data 09/17/24 06:20 09/17/24 06:20 Laboratory: Laboratory Results - last 24 hr 09/17/24 11:05: POC Glucose 160 H 09/17/24 13:37: POC Glucose 102 09/17/24 14:51: POC Glucose 102 09/17/24 16:08: POC Glucose 106 09/17/24 21:58: POC Glucose 246 H 09/18/24 05:40: POC Glucose 191 H 09/18/24 06:30: Vancomycin Trough 10.3 Microbiology: Microbiology 09/16/24 12:35 Urine, Clean Catch Urine Culture - Preliminary Streptococcus group B D/C Instructions Discharge Diet: - (Resume home diet) Return to work on: 09/18/24 Weight Bearing Status: Full weight bearing Meaningful Use Info Meaningful Use Meaningful Use Diagnoses (Choose all that apply): None applicable Ischemic Stroke Statin Dosing Therapy Reference: STATIN DOSE THERAPY REFERENCE: * Patients > 75 years receive moderate or high dose statin therapy. * Patients 75 years or YOUNGER should receive HIGH intensity statin dose unless contraindicated. You will be required to document reason for non-treatment if statin daily dose does not meet guidelines. HIGH DOSE STATIN THERAPY DAILY Atorvastatin > than or = to 40 mg Rosuvastatin > than or = to 20 mg Amlodipine + Atorvastatin > than or = to 2.5/40 mg Ezetimibe + Simvastatin 10/80 mg Simvastatin 80mg Discharge Plan Admission Admit Date/Time: 09/16/24 16:20 Primary Reason for Your Visit: Cellulitis of the perineum Attending Provider: Jorge Frazier Primary Care Provider: Joaquin Huitron Consulting Providers: Ken Sosa; Tristin Solo; Fran Daley Discharge Orders/Prescriptions Prescriptions: New doxycycline monohydrate 100 mg Capsule 100 mg PO BID Qty: 14 0RF Rx Instructions: Take with food amoxicillin-pot clavulanate 875-125 mg Tablet 1 tab PO BID Qty: 14 0RF Rx Instructions: Take with food hydrocodone-acetaminophen 5-325 mg tablet 1 tab PO Q6H PRN (Reason: pain) 7 Days Qty: 20 0RF Rx Instructions: 1 or 2 tabs every 6 hours as needed for pain ondansetron HCl 4 mg tablet 4 mg PO Q6H PRN (Reason: nausea and vomiting) Qty: 14 0RF Continued insulin lispro [Humalog KwikPen Insulin] 100 unit/mL insulin pen 40 unit SUBCUT TID Patient Comments: INJECT 40 UNITS SUBCUTANEOULSY WITH MEALS insulin glargine [Basaglar KwikPen U-100 Insulin] 100 unit/mL (3 mL) insulin pen 60 unit SUBCUT BID Patient Comments: INJECT 40 UNITS SUBCUTANEOUSLY TWICE DAILY atorvastatin 10 mg tablet 10 mg PO QHS lisinopril 5 mg tablet 5 mg PO DAILY ropinirole 0.5 mg tablet 1.5 mg PO QHS Referrals / Follow Up: Joaquin Huitron MD [Primary Care Provider] - In 1 Week Disposition Disposition (needs filled in before D/C Order can be placed): Home, Self Care Charges/Coding Visit Charges Inpatient E&M: 19375 Disch Hosp >30min
[2024-09-18 11:19] LABS: Bedside Glucose 176 mg/dL (74-106)
--- NOTE | 2024-09-18 11:53 | PHA.DC_ITS ---
Pharmacy [facility] has performed discharge medication reconciliation and counseling for this patient. Patient counseled via telephone due to contact precaution. 1. AUGMENTIN 875MG PO BID X 7 DAYS 2. DOXYCYCLINE 100MG PO BID X 7 DAYS The patient's discharge medication list was reviewed for discrepancies and discrepancies were resolved. The patient was counseled on the following discharge medications and changes in medications for homegoing were reviewed. The Reason for Use, instructions for use, and potential side effects were reviewed for all new medications. The patient's questions regarding all of their medications were answered. The patient was able to verbally demonstrate an understanding of their discharge medications. Medications at Discharge Home Medications insulin glargine 100 unit/mL (3 mL) subcutaneous pen (Basaglar KwikPen U-100 Insulin) 60 unit subcut BID 04/23/21 insulin lispro 100 unit/mL subcutaneous pen (Humalog KwikPen (U-100) Insulin) 40 unit subcut TID 04/23/21 atorvastatin 10 mg tablet 10 mg PO QHS 09/14/21 lisinopril 5 mg tablet 5 mg PO DAILY 09/14/21 ropinirole 0.5 mg tablet 1.5 mg PO QHS 09/16/24 amoxicillin 875 mg-potassium clavulanate 125 mg tablet 1 tab PO BID #14 tabs 09/18/24 doxycycline monohydrate 100 mg capsule 100 mg PO BID #14 caps 09/18/24
[2024-09-18] MEDS: Insulin Lispro 100 UNIT/ML INSULN.PEN SC (12:50)
[2024-09-18 13:35] VITALS: BP 132/81; PULSE 77; RESP 16; TEMP 37.1; O2SAT 99
== END 2024-09-18 13:49 | disposition home or self-care (01) | DRG 603 ==
LOC: ED 16:04 → MS3 16:44
PROVIDERS: Nurse Practitioner; Admitting Provider Internal Medicine; Emergency Provider Surgery; PCP Family Medicine; Visit Provider Internal Medicine
DX: L02.215 Cutaneous abscess of perineum (principal); E10.649 Type 1 diabetes mellitus with hypoglycemia without coma; I10 Essential (primary) hypertension; E10.65 Type 1 diabetes mellitus with hyperglycemia; E78.5 Hyperlipidemia, unspecified; Z79.4 Long term (current) use of insulin; L03.315 Cellulitis of perineum; K60.30 Anal fistula, unspecified; Z79.899 Other long term (current) drug therapy; Z86.14 Personal history of Methicillin resistant Staphylococcus aureus infection
CPT/HCPCS: 36415; 72193; 80048; 80053; 80076; 80202; 81001; 82962; 83036; 83605; 83735; 84100; 84443; 85025; 85610; 85730; 87040; 87077; 87086; 87088; 87186; 99284; J7030; J7040; J7050; Q9967; A4216; J2405

== ENCOUNTER 2025-01-05 15:50 | Emergency (ER) | payer OTHER, SELFPAY ==
[2025-01-05 15:51] VITALS: BP 137/64; PULSE 97; RESP 18; TEMP 36.7; O2SAT 99; BMI 38.6
[2025-01-05 16:22] VITALS: BP 128/72; PULSE 78; RESP 16; TEMP 36.2; O2SAT 97
--- NOTE | 2025-01-05 16:25 | EX.ED.DYSGE1 ---
HPI <FARA Allen - Last Filed: 01/05/25 19:51> History of Present Illness Chief Complaint: Flank Pain Narrative Narrative: Patient is a 44-year-old female with history of MRSA, colitis, diabetes, history of colostomy, kidney stones, presents to the emergency department with complaints of lower back pain that worse to the left lower back. He states he also wraps around to her front. She states her pain is worse with movement however even sitting still causes discomfort. Patient denies any fever or chills. Patient denies any UTI symptoms. Denies any specific fever or chills. The pain is been ongoing and getting worse over the last 3 days. PFS <FARA Allen - Last Filed: 01/05/25 19:51> [facility], LAT[facility] Medical History Physical exam, pre-employment History of necrotising fasciitis Current use of insulin Diabetes Home Medications ?Medication ?Instructions ?Recorded ?Last Taken ?Type insulin glargine 100 unit/mL (3 66 unit subcut BID diabetes 04/23/21 09/16/24 History mL) subcutaneous pen (Basaglar KwikPen U-100 Insulin) insulin lispro 100 unit/mL 44 unit subcut TID 04/23/21 09/16/24 History subcutaneous pen (Humalog KwikPen (U-100) Insulin) atorvastatin 10 mg tablet 10 mg PO QHS 09/14/21 09/15/24 History lisinopril 5 mg tablet 5 mg PO DAILY 09/14/21 09/15/24 History ropinirole 0.5 mg tablet 1.5 mg PO QHS 09/16/24 09/15/24 History ondansetron HCl 4 mg tablet 4 mg PO Q6H PRN nausea and 09/18/24 Unknown Rx vomiting #14 tabs cephalexin 500 mg capsule 500 mg PO BID #10 caps 01/05/25 Unknown Rx cyclobenzaprine 10 mg tablet 10 mg PO TID PRN Muscle Spasm #15 01/05/25 Unknown Rx TABLETS naproxen 500 mg tablet (Naprosyn) 500 mg PO BID PRN pain #20 tabs 01/05/25 Unknown Rx Allergy/AdvReac Type Severity Reaction Status Date / Time metformin AdvReac Nausea Verified 01/05/25 15:51 Family History Other Breast cancer Diabetes Surgical History History of cholecystectomy History of colostomy reversal History of colostomy S/P tubal ligation H/O: Social History adopted: No household members: spouse and children housing: house number of children: 2 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 pets and animals: No leisure activities: art, games and volunteer work history of recent travel: No sexually active: Yes Smoking Status: Never smoker ROS <FARA Allen - Last Filed: 01/05/25 19:51> ROS ED ROS Narrative Constitutional: Negative for fever, chills, weight loss, weakness Eyes: Negative for vision loss, vision change, double vision ENT: Negative for any sore throat, ear pain, congestion Cardiovascular: Negative for any chest pain, tightness, palpitations Respiratory: Negative for any cough, sputum production, hemoptysis, dyspnea, dyspnea on exertion, orthopnea Gastrointestinal: Negative for any vomiting, diarrhea, constipation, blood in stool, blood in vomit. Positive abdominal pain, nausea : Negative for any urinary frequency, dysuria, retention, blood in urine Muscle skeletal: Negative for any neck pain. Positive for back pain Neurological: Negative for any headache, syncope, dizziness Skin: Negative for any rashes, itching, abrasions, lacerations Psychiatric: Negative for any depression, anxiety, stress, suicidal ideation, homicidal ideation Hematologic: Negative for any excessive bruising, easy bleeding EXAM <FARA Allen - Last Filed: 01/05/25 19:51> Physical Exam Narrative Exam Narrative: Vital signs reviewed. Patient does appear to be in moderate distress secondary to pain in the lower back. HEET: Head normocephalic atraumatic, TMs clear bilaterally. Posterior pharynx is clear, moist mucous membranes. Nares clear bilaterally. Neck: Supple with no lymphadenopathy or tenderness. No signs of meningismus. Cardiac: Regular rate and rhythm no murmurs gallops or rubs, equal peripheral pulses bilaterally. Respiratory: Lungs clear to auscultation bilaterally. No chest tenderness. Abdomen: Soft, nondistended. No abdominal bruit or pulsatile masses. No hepatosplenomegaly. Tenderness to the left lower quadrant Extremities: No peripheral edema, no signs of gross trauma or deformity. Active full range of motion of all extremities. Neuro: Cranial nerves II through XII intact, no focal neurological deficits. Skin: Clean dry and intact with no rash, purpura, petechiae, vesicles or pustules. Backs/flank: No CVA tenderness, no midline spinal tenderness, no deformity. Pain is more to the left lower spine. No significant CVA tenderness. Psych: Normal mood and affect. No SI, HI or acute psychosis. Const Vital Signs: 01/05/25 15:51 01/05/25 16:22 01/05/25 17:32 Temperature 98.1 F 97.2 F L Temperature Source Oral Oral Pulse Rate 97 78 98 Respiratory Rate 18 16 18 Blood Pressure 137/64 H 128/72 H 151/78 H Blood Pressure Mean 88 90 102 Pulse Ox 99 97 98 Oxygen Delivery Method Room Air Room Air Room Air <Dr. Myles Cabrera DO - Last Filed: 01/05/25 19:47> Physical Exam Const Vital Signs: 01/05/25 15:51 01/05/25 16:22 01/05/25 17:32 Temperature 98.1 F 97.2 F L Temperature Source Oral Oral Pulse Rate 97 78 98 Respiratory Rate 18 16 18 Blood Pressure 137/64 H 128/72 H 151/78 H Blood Pressure Mean 88 90 102 Pulse Ox 99 97 98 Oxygen Delivery Method Room Air Room Air Room Air [facility] <FARA Allen - Last Filed: 01/05/25 19:51> [facility] Lab Data Labs: Laboratory Results - last 24 hr 01/05/25 01/05/25 16:35 17:02 WBC 8.7 RBC 4.59 Hgb 13.6 Hct 40.4 MCV 88.0 MCH 29.6 MCHC 33.7 RDW Std Deviation 41.4 RDW Coeff of Meet 13.0 Plt Count 213 MPV 11.7 Immature Gran % (Auto) 0.700 Neut % (Auto) 63.1 Lymph % (Auto) 26.4 [place] % (Auto) 6.9 Eos % (Auto) 2.3 Baso % (Auto) 0.6 Absolute Neuts (auto) 5.5 Absolute Lymphs (auto) 2.30 Nucleated RBC % 0 Sodium 136 Potassium 4.0 Chloride Direct 105 Carbon Dioxide 18.6 L Anion Gap 12 BUN 37 H Creatinine 0.76 Estim Creat Clear Calc 125.90 Est GFR (MDRD) Non-Af 99 BUN/Creatinine Ratio 48.2 H Glucose 179 H Calcium 9.4 Total Bilirubin 0.20 AST 17 ALT 15 Alkaline Phosphatase 84 Total Protein 7.1 Albumin 3.8 Globulin 3.2 Albumin/Globulin Ratio 1.2 Lipase 56 Urine Color Yellow Urine Clarity Sl. Cloudy Urine pH 6.0 Ur Specific [place] 1.020 Urine Protein 100 H Urine Glucose (UA) Normal Urine Ketones Negative Urine Occult Blood 10 H Urine Nitrite Negative Urine Bilirubin Negative Urine Urobilinogen Normal Ur Leukocyte Esterase 500 H Urine RBC 0-5 SEEN Urine WBC 10-25 SEEN Ur Squamous Epith Cells 0-5 SEEN Amorphous Sediment 1+ URATE Urine Bacteria 0 SEEN Urine Mucus 0 SEEN Urine Test Negative Radiography Diagnostic Testing: Clinical Impression(s) from Imaging Studies Abdomen/Pelvis CT 01/05/25 17:08 IMPRESSION: Hepatic steatosis. No acute intra-abdominal findings. Please note the urinary bladder is decompressed Partial colectomy changes. Mild constipation Small umbilical hernia containing fat Slightly more conspicuous presumed fat lobule seen in the central aspect of the pancreas .It may be reasonable to evaluate with nonemergent abdominal MRI to ensure that this is not a small pancreatic cyst which warrants follow-up. One or more dose reduction techniques were used (e.g., Automated exposure control, adjustment of the mA and/or kV according to patient size, use of iterative reconstruction technique). Reading Location: [facility] Treatment and Re-Evaluation :: Differential diagnosis includes however is not limited to: Differential will be significant secondary to the multiple complaints. Obstructing kidney stone, pyelonephritis, lumbar strain, muscle spasm, bowel obstruction, diverticulitis, diverticulitis with perforation, UTI Patient does appear to be in mild distress, she is standing and looks to be having pain to her left lower back. Patient's vital signs are stable, she looks nontoxic. Patient presents to the emergency department with complaints of pain to the lower back, rating around the front. Basic laboratory values, urinalysis, urine preg will be obtained. CT scan of the abdomen pelvis IV contrast will be obtained. All radiologic examinations were read, reviewed by the emergency department attending. From these reads, a plan of care will be put in place. Patient will receive IV fluids, Zofran Toradol and morphine. Patient will need to be reevaluated. Patient on reevaluation was still hurting, patient was given IV Dilaudid. Laboratory values showed normal CBC, patient's chemistries were unremarkable. Patient's lipase was negative. Urinalysis showed 0 bacteria however there was 10-25 white blood cells, 500 leukocytes. Negative for any nitrates. Secondary to this finding, patient be placed on Keflex twice a day for [address] scan of the abdomen pelvis shows partial colectomy changes. No acute intra-abdominal findings. At this time, patient reevaluation was feeling better. Patient will be treated anti-inflammatories, muscle relaxers. Instructed return for any worsening symptoms. Stable for discharge <Dr. Myles Cabrera, DO - Last Filed: 01/05/25 19:47> [facility] Narrative Medical decision making narrative: I have personally performed a face to face assessment of the patient and have reviewed the MORENITA Note. I performed a substantive portion of the visit including all aspects of the following. My siddiqui findings include: History: Patient presents with bilateral flank pain that has been getting worse over the past 4 days. Patient states it is gradually getting worse. Patient states it began rather suddenly when she bent forward. Patient states it is worse on the left today. Patient states it is worse with movement. Patient states nothing seems to help with it. Patient denies any fevers or chills. Patient admits to some nausea but denies any vomiting. Exam: Vital signs are stable. Patient is afebrile. Patient is in no acute distress. Heart was regular rate and rhythm. Lungs are clear and equal bilaterally. Abdomen is soft. Bowel sounds are normal. There is no tenderness. There is tenderness over the lumbar paraspinal muscles but worse on the left. Range of motion was limited in all motions of the lumbar spine secondary to pain. Cranial nerves II through XII are intact. Strength is 5/5 bilaterally in the upper and lower extremities. There are no sensory deficits noted. Medical Decision Making: Differential diagnosis includes ureteral calculus, pyelonephritis, lumbosacral strain, diverticulitis, pancreatitis, , electrolyte abnormality, and dehydration. CBC will be obtained to assess for leukocytosis and anemia. Comprehensive metabolic profile will be obtained to assess for hepatic function, renal function, and electrolyte abnormality. Lipase will be obtained to assess for pancreatitis. Urine hCG will be obtained to assess for . Urinalysis will be obtained to assess for urinary tract infection and hematuria. CT scan of the abdomen and pelvis will be obtained to assess for ureteral calculus, pyelonephritis, diverticulitis. Patient was given morphine, Zofran, and Toradol. Patient was given IV fluids. Patient was given a dose of Dilaudid. CBC was reviewed and was within normal limits. Comprehensive metabolic profile was reviewed. BUN was slightly elevated at 37. Glucose was mildly elevated at 179. Lipase was reviewed and was normal at 56. Urinalysis was reviewed. Leukocyte esterase was 500 with 10-25 white blood cells. There is 0 bacteria noted. Urine hCG was reviewed and was negative. CT scan of the abdomen and pelvis was obtained. There is hepatic steatosis. There is no acute abnormality noted. This was interpreted by the radiologist and was also independently reviewed by myself. Patient was advised of her findings. Urine culture was obtained. The patient was instructed to use ice to her low back. Patient was instructed to follow-up with her primary care physician in 5 to 7 days. Patient was given prescriptions for anti-inflammatory analgesics, muscle relaxants, and antibiotic. Patient was instructed to return if worse in any way. Patient understood and was agreeable with the plan. All questions were answered. Lab Data Attestation: I reviewed the patient's lab results. Labs: Laboratory Results - last 24 hr 01/05/25 01/05/25 16:35 17:02 WBC 8.7 RBC 4.59 Hgb 13.6 Hct 40.4 MCV 88.0 MCH 29.6 MCHC 33.7 RDW Std Deviation 41.4 RDW Coeff of Meet 13.0 Plt Count 213 MPV 11.7 Immature Gran % (Auto) 0.700 Neut % (Auto) 63.1 Lymph % (Auto) 26.4 [place] % (Auto) 6.9 Eos % (Auto) 2.3 Baso % (Auto) 0.6 Absolute Neuts (auto) 5.5 Absolute Lymphs (auto) 2.30 Nucleated RBC % 0 Sodium 136 Potassium 4.0 Chloride Direct 105 Carbon Dioxide 18.6 L Anion Gap 12 BUN 37 H Creatinine 0.76 Estim Creat Clear Calc 125.90 Est GFR (MDRD) Non-Af 99 BUN/Creatinine Ratio 48.2 H Glucose 179 H Calcium 9.4 Total Bilirubin 0.20 AST 17 ALT 15 Alkaline Phosphatase 84 Total Protein 7.1 Albumin 3.8 Globulin 3.2 Albumin/Globulin Ratio 1.2 Lipase 56 Urine Color Yellow Urine Clarity Sl. Cloudy Urine pH 6.0 Ur Specific [place] 1.020 Urine Protein 100 H Urine Glucose (UA) Normal Urine Ketones Negative Urine Occult Blood 10 H Urine Nitrite Negative Urine Bilirubin Negative Urine Urobilinogen Normal Ur Leukocyte Esterase 500 H Urine RBC 0-5 SEEN Urine WBC 10-25 SEEN Ur Squamous Epith Cells 0-5 SEEN Amorphous Sediment 1+ URATE Urine Bacteria 0 SEEN Urine Mucus 0 SEEN Urine Test Negative Radiography Diagnostic Testing: Clinical Impression(s) from Imaging Studies Abdomen/Pelvis CT 01/05/25 17:08 IMPRESSION: Hepatic steatosis. No acute intra-abdominal findings. Please note the urinary bladder is decompressed Partial colectomy changes. Mild constipation Small umbilical hernia containing fat Slightly more conspicuous presumed fat lobule seen in the central aspect of the pancreas .It may be reasonable to evaluate with nonemergent abdominal MRI to ensure that this is not a small pancreatic cyst which warrants follow-up. One or more dose reduction techniques were used (e.g., Automated exposure control, adjustment of the mA and/or kV according to patient size, use of iterative reconstruction technique). Reading Location: [facility] Treatment and Re-Evaluation :: Differential diagnosis includes however is not limited to: Differential will be significant secondary to the multiple complaints. Obstructing kidney stone, pyelonephritis, lumbar strain, muscle spasm, bowel obstruction, diverticulitis, diverticulitis with perforation, UTI Patient does appear to be in mild distress, she is standing and looks to be having pain to her left lower back. Patient's vital signs are stable, she looks nontoxic. Patient presents to the emergency department with complaints of pain to the lower back, rating around the front. Basic laboratory values, urinalysis, urine preg will be obtained. CT scan of the abdomen pelvis IV contrast will be obtained. All radiologic examinations were read, reviewed by the emergency department attending. From these reads, a plan of care will be put in place. Patient will receive IV fluids, Zofran Toradol and morphine. Patient will need to be reevaluated. Discharge Plan Triage Chief Complaint: Flank Pain ED Midlevel Provider: Jose Flores ED Provider: Myles Cabrera Dx/Rx/DC Orders Clinical Impression: Acute lumbar myofascial strain, UTI (urinary tract infection) Instructions: Urinary Tract Infections in Women, Understanding Lumbosacral Strain Prescriptions: New cephalexin 500 mg capsule 500 mg PO BID Qty: 10 0RF naproxen [Naprosyn] 500 mg tablet 500 mg PO BID PRN (Reason: pain) Qty: 20 0RF cyclobenzaprine 10 mg tablet 10 mg PO TID PRN (Reason: Muscle Spasm) Qty: 15 0RF No Action insulin lispro [Humalog KwikPen Insulin] 100 unit/mL insulin pen 44 unit SUBCUT TID Patient Comments: INJECT 44 UNITS SUBCUTANEOULSY WITH MEALS insulin glargine [Basaglar KwikPen U-100 Insulin] 100 unit/mL (3 mL) insulin pen 66 unit SUBCUT BID Patient Comments: INJECT 40 UNITS SUBCUTANEOUSLY TWICE DAILY atorvastatin 10 mg tablet 10 mg PO QHS lisinopril 5 mg tablet 5 mg PO DAILY ropinirole 0.5 mg tablet 1.5 mg PO QHS ondansetron HCl 4 mg tablet 4 mg PO Q6H PRN (Reason: nausea and vomiting) Qty: 14 0RF Primary Care Provider: Joaquin Huitron Referrals: Joaquin Huitron MD [Primary Care Provider] - Activity Restrictions/Additional Instructions: Please take the antibiotics till finished. Using anti-inflammatories, muscle relaxers for home. Perform gentle stretching, ice and heat. Return for any worsening pain, nausea or vomiting. Print Language: [place]i Disposition Disposition: Home, Self Care
[2025-01-05] MEDS: 0.9% Normal Saline (1000mL) 1,000 ML 999 ML IV (16:28)
[2025-01-05] MEDS: Ondansetron 4 MG/2 ML Vial IV (16:28)
[2025-01-05] MEDS: Ketorolac 15 MG/ML Vial IV (16:30)
[2025-01-05] MEDS: Morphine 4 MG/ML Syringe IV (16:31)
[2025-01-05 16:40] LABS: Absolute Neutrophil Count 5.5 X10^3/uL (2.0-7.7); Basophil# 0.05 X10^3/uL; Basophil% 0.6 % (0-1); Eosinophils% 2.3 % (0-5); Hematocrit 40.4 % (37-47); Hemoglobin 13.6 g/dL (12.0-15.0); Lymphocyte % 26.4 % (19-41); Mean Corp Hgb Conc 33.7 g/dL (32-36); Mean Corpuscular Hgb 29.6 pg (27.0-32.0); Mean Platelet Vol. 11.7 fl (6.2-12.0); Monocyte% 6.9 % (0-10); NRBC Flagged by Analyzer 0 % (0-5); Neutrophil # 5.51 X10^3/uL (2.7-7.7); Neutrophil % 63.1 % (47-70); Platelet Count 213 K/mm3 (150-450); RBC Distribution Width SD 41.4 fl (35.1-43.9); Red Blood Count 4.59 M/mm3 (4.2-5.4); White Blood Count 8.7 K/mm3 (4.4-11.0)
[2025-01-05 17:01] LABS: Albumin, Serum 3.8 g/dL (3.5-5.0); Anion Gap 12 (5-15); BUN 37 mg/dL (4-19); BUN/Creat Ratio 48.2 RATIO (10-20); Calcium 9.4 mg/dL (7.6-11.0); Carbon Dioxide 18.6 mmol/L (22.0-29.0); Chloride 105 mmol/L (96-108); Creatinine, Serum 0.76 mg/dL (0.70-1.20); EST Glomerular Filtration Rate 99 (>60); Glucose 179 mg/dL (70-99); Lipase 56 U/L (13-75); Protein, Total 7.1 g/dL (5.9-8.4); Sodium Level 136 mmol/L (133-145)
[2025-01-05 17:02] LABS: ALB/GLOB Ratio 1.2 RATIO (0.9-2.4); AST(SGOT) 17 U/L (<=31); Alanine Aminotransfer ALT/SGPT 15 U/L (<=34); Alkaline Phosphatase 84 U/L (35-104); Globulin 3.2 g/dL (2.2-4.2)
--- NOTE | 2025-01-05 17:08 | CT_ITS ---
PROCEDURE: ABDOMEN/PELVIS W IV CONT ONLY REASON FOR EXAM: Abdominal pain TECHNIQUE: Abdomen and pelvis CT with intravenous contrast. COMPARISON: None. FINDINGS: Lung bases: Clear Liver: Hepatic steatosis Gallbladder: Unremarkable. Spleen: Unremarkable. Pancreas: No evidence of pancreatic inflammation 8 mm small central pancreatic cyst slightly more conspicuous; reference image 30 Adren[place]: Unremarkable. Kidneys: No hydronephrosis. Stable 1 cm right renal cysts. Bladder: Decompressed Reproductive Organs: Unremarkable. Bowel: Constipation. Colonic suture line noted. No bowel obstruction Appendix: Normal. Lymph nodes: No suspicious lymph node enlargement. Vasculature: Major vascular structures are unremarkable. Small umbilical hernia containing fat. Stable subcutaneous scarring seen in the left lower quadrant. CT/Abdomen/Pelvis W IV Cont ONLY IMPRESSION: Hepatic steatosis. No acute intra-abdominal findings. Please note the urinary bladder is decompressed Partial colectomy changes. Mild constipation Small umbilical hernia containing fat Slightly more conspicuous presumed fat lobule seen in the central aspect of the pancreas .It may be reasonable to evaluate with nonemergent abdominal MRI to ensure that this is not a small pancreatic cyst wh ich warrants follow-up. One or more dose reduction techniques were used (e.g., Automated exposure contr ol, adjustment of the mA and/or kV according to patient size, use of iterative reconstruction technique). Reading Location: [id number]
[2025-01-05 17:09] LABS: Bacteria 0 SEEN /hpf (None Seen); Mucous, Urine 0 SEEN /hpf (<or=2+)
[2025-01-05 17:13] LABS: Color, Urine Yellow (Yellow); Glucose, Dipstick Normal (Normal); Ketone-Dipstick Negative (Negative); Leukocyte Esterase-Dipstick 500 /ul (Negative); Nitrite-Dipstick Negative (Negative); Occult Blood-Urine 10 /ul (Negative); Protein-Dipstick 100 mg/dl (Negative); Urine Bilirubin Dipstick Negative (Negative); Urine Clarity Sl. Cloudy (Clear); Urine Urobilinogen Normal (Normal)
[2025-01-05 17:20] LABS: Internal QC Validated? YES +Cl - CLEAR BKGD; Pregnancy, Urine Negative Negative
[2025-01-05 17:23] LABS: Amorphous Sediment 1+ URATE; Red Blood Cells-Urine 0-5 SEEN /hpf (0-5); Squamous Epithelial Cells - UA 0-5 SEEN /hpf (5-10); White Blood Cells 10-25 SEEN /hpf (0-5)
[2025-01-05] MEDS: HYDROmorphone 1 MG/ML Syringe IV (17:26)
[2025-01-05 17:32] VITALS: BP 151/78; PULSE 98; RESP 18; O2SAT 98
[2025-01-05] MEDS: Cephalexin 250 MG Capsule 500 MG PO (19:53)
[2025-01-05 19:54] VITALS: BP 124/56; PULSE 98; RESP 18; TEMP 37; O2SAT 97
== END 2025-01-05 20:00 | disposition home or self-care (01) ==
PROVIDERS: Nurse Practitioner; Emergency Provider Emergency Medicine; PCP Family Medicine; Visit Provider Emergency Medicine
DX: S39.012A Strain of muscle, fascia and tendon of lower back, initial encounter (principal); E11.9 Type 2 diabetes mellitus without complications; N39.0 Urinary tract infection, site not specified; Z86.14 Personal history of Methicillin resistant Staphylococcus aureus infection; Z90.49 Acquired absence of other specified parts of digestive tract; K76.0 Fatty (change of) liver, not elsewhere classified; X58.XXXA Exposure to other specified factors, initial encounter
CPT/HCPCS: 96361; 96374; 96375; 74177; 80053; 81001; 81025; 83690; 85025; 99282; Q9967; A4216; J2405

== ENCOUNTER 2025-08-11 13:15 | Inpatient (IN) | payer OTHER, SELFPAY ==
[2025-08-11] VITALS (8 sets, daily range): BP systolic 107–180; BP diastolic 62–98; PULSE 98–125; RESP 14–22; TEMP 36.9–37.6; O2SAT 96–99; BMI 35.4
--- NOTE | 2025-08-11 14:10 | CT_ITS ---
PROCEDURE: ABDOMEN/PELVIS W IV CONT ONLY 08/11/2025 REASON FOR EXAM: PERIRECTAL ABSCESS TECHNIQUE: Procedure Code: [id number] Modality: CT Procedure: ABDOMEN/PELVIS W IV CONT ONLY Coronal and Sagittal reconstruction series were provided. CONTRAST: Not specified One or more dose reduction techniques were used (e.g., Automated exposure control, adjustment of the mA and/or kV according to patient size, use of iterative reconstruction technique. COMPARISON: 01/05/2025 FINDINGS: No liver masses. Normal portal vein opacification. Normal spleen. Small hypodensity, well-defined in the body of the pancreas stable compared to prior study. Renal cysts. No hydronephrosis. No solid renal mass. No bowel obstruction. Cystic changes left adnexa. Negative for abscess. No abscess. No wall thickening. Negative for perirectal abscess. CT/Abdomen/Pelvis W IV Cont ONLY IMPRESSION: No perirectal abscess noted Reading [facility]
--- NOTE | 2025-08-11 14:12 | EX.ED.DYSGE1 ---
HPI <Dr. Myles Cabrera DO - Last Filed: 08/11/25 15:17> History of Present Illness Chief Complaint: Wound Informant: patient Onset/Context/Timing Onset: Days (2) Context: Gradual Onset Timing: Continuous Quality: Pressure, stabbing Location: Right proximal medial thigh/gluteal/perineal area Worsened by: Sitting, movement Relieved by: Nothing Narrative Narrative: Patient presents with abscess to her right perianal area that has been getting worse over the past 2 days. Patient states that yesterday she noted a pea-sized area that was tender. Patient states that today it has grown to the size of a golf ball. Patient states it is worse with pressure, sitting, and movement. Patient states the pain has been constant. Patient states it is over the right gluteal/perineal/proximal thigh area. Patient denies any discharge or drainage. Patient describes her pain as pressure and stabbing. Patient denies any fevers or chills. Patient states she has a history of MRSA and necrotizing fasciitis. [facility]LY [facility] <Dr. Myles Cabrera DO - Last Filed: 08/11/25 15:17> [facility] Medical History Abscess or cellulitis of perineum Abscess of deep perineal space Physical exam, pre-employment History of necrotising fasciitis Current use of insulin Diabetes Home Medications ?Medication ?Instructions ?Recorded ?Last Taken ?Type insulin glargine 100 unit/mL (3 66 unit subcut BID diabetes 04/23/21 09/16/24 History mL) subcutaneous pen (Basaglar KwikPen U-100 Insulin) insulin lispro 100 unit/mL 44 unit subcut TID 04/23/21 09/16/24 History subcutaneous pen (Humalog KwikPen (U-100) Insulin) atorvastatin 10 mg tablet 10 mg PO QHS 09/14/21 09/15/24 History lisinopril 5 mg tablet 5 mg PO DAILY 09/14/21 09/15/24 History ropinirole 0.5 mg tablet 1.5 mg PO QHS 09/16/24 09/15/24 History insulin degludec 100 unit/mL (3 64 unit subcut BID 08/11/25 Unknown History mL) subcutaneous pen (Tresiba FlexTouch U-100 insulin) Allergy/AdvReac Type Severity Reaction Status Date / Time metformin AdvReac Nausea Verified 08/11/25 13:16 Family History Other Breast cancer Diabetes Surgical History History of cholecystectomy History of colostomy reversal History of colostomy S/P tubal ligation H/O: Social History adopted: No household members: spouse and children housing: house number of children: 2 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 Myles Cabrera, DO - Last Filed: 08/11/25 15:17> ROS ED Constitutional Constitutional ED: Denies chills or fever(s) Eyes Eyes: Denies blurry vision or change in vision ENT ENT ED: Denies rhinorrhea or sore throat Cardiovascular Cardiovascular: Denies chest pain or palpitations Respiratory/Chest Respiratory/Chest: Denies cough or dyspnea Gastrointestinal Gastrointestinal: Reports nausea; Denies vomiting Genitourinary Genitourinary ED: Denies dysuria or hematuria Musculoskeletal Musculoskeletal: Denies back pain or neck pain Integumentary Reports abscess; Denies rash Neurologic Neurologic: Reports weakness; Denies headache(s) Allergic/Immunologic Allergic/Immunologic ED: Denies mouth swelling or urticaria EXAM <Dr. Myles Cabrera, DO - Last Filed: 08/11/25 15:17> Physical Exam Const Vital Signs: 08/11/25 13:16 08/11/25 14:18 08/11/25 15:00 Temperature 98.8 F 98.5 F 98.6 F Temperature Source Oral Oral Oral Pulse Rate 125 H 109 H 103 H Respiratory Rate 22 H 18 18 Blood Pressure 180/98 H 165/89 H 157/88 H Blood Pressure Mean 125 114 111 Pulse Ox 99 98 99 Oxygen Delivery Method Room Air Room Air Room Air 08/11/25 16:00 08/11/25 17:00 08/11/25 18:00 Temperature 98.7 F 98.6 F 98.6 F Temperature Source Oral Oral Oral Pulse Rate 103 H 101 H 101 H Respiratory Rate 16 16 18 Blood Pressure 107/77 146/62 H 128/79 H Blood Pressure Mean 87 90 95 Pulse Ox 99 98 99 Oxygen Delivery Method Room Air Room Air Room Air 08/11/25 18:13 Temperature 98.6 F Temperature Source Pulse Rate 100 Respiratory Rate 14 Blood Pressure 128/78 H Blood Pressure Mean 94 Pulse Ox 99 Oxygen Delivery Method Positive well nourished and well developed Constitutional Narrative: BMI is 35.4. General Appearance ED: well developed and NAD HEENT Reports moist mucous membranes Neck supple and no JVD Resp normal respiratory effort and clear to auscultation bilaterally Cardio regular rhythm Rate: tachycardic GI non-tender and non-distended Palpation: soft Extremity normal to inspection General Extremety ED: Negative for edema or tenderness General Extremity: Negative for edema Neuro oriented x3, CN's II-XII intact bilaterally and no sensory deficits noted Sensorium / Orientation: alert Motor Exam: strength 5/5 throughout Psych mental status grossly normal Skin Skin Narrative: There is a tender area over the right medial proximal thigh/gluteal/perineal area. There is minimal fluctuance. There is no active discharge or drainage. There is erythema and induration. <Dr. David Hanna, DO - Last Filed: 08/11/25 18:36> Physical Exam Const Vital Signs: 08/11/25 13:16 08/11/25 14:18 08/11/25 15:00 Temperature 98.8 F 98.5 F 98.6 F Temperature Source Oral Oral Oral Pulse Rate 125 H 109 H 103 H Respiratory Rate 22 H 18 18 Blood Pressure 180/98 H 165/89 H 157/88 H Blood Pressure Mean 125 114 111 Pulse Ox 99 98 99 Oxygen Delivery Method Room Air Room Air Room Air 08/11/25 16:00 08/11/25 17:00 08/11/25 18:00 Temperature 98.7 F 98.6 F 98.6 F Temperature Source Oral Oral Oral Pulse Rate 103 H 101 H 101 H Respiratory Rate 16 16 18 Blood Pressure 107/77 146/62 H 128/79 H Blood Pressure Mean 87 90 95 Pulse Ox 99 98 99 Oxygen Delivery Method Room Air Room Air Room Air 08/11/25 18:13 Temperature 98.6 F Temperature Source Pulse Rate 100 Respiratory Rate 14 Blood Pressure 128/78 H Blood Pressure Mean 94 Pulse Ox 99 Oxygen Delivery Method MDM <Dr. Myles Cabrera, DO - Last Filed: 08/11/25 15:17> [facility] Narrative Medical decision making narrative: Differential diagnosis includes abscess, cellulitis, necrotizing fasciitis, urinary tract infection, sepsis, and electrolyte abnormality. CBC will be obtained to assess for leukocytosis and anemia. Basic metabolic profile will be obtained to assess for electrolyte abnormality and renal function. PT with INR and PTT will be obtained to assess for coagulopathy. Serum lactate will be obtained to assess for sepsis. Serum hCG will be obtained to assess for . Urinalysis will be obtained to assess for urinary tract infection and hematuria. Blood cultures will be obtained to assess for sepsis. CT scan of the abdomen and pelvis will be obtained to assess for abscess, and necrotizing fasciitis. Lab Data Labs: Laboratory Results - last 24 hr 08/11/25 08/11/25 08/11/25 13:40 14:30 15:20 WBC 10.5 RBC 4.83 Hgb 14.0 Hct 39.9 MCV 82.6 MCH 29.0 MCHC 35.1 RDW Std Deviation 38.5 RDW Coeff of Meet 12.8 Plt Count 169 MPV 11.7 Immature Gran % (Auto) 0.500 Neut % (Auto) 82.3 H Lymph % (Auto) 10.3 L [place] % (Auto) 6.3 Eos % (Auto) 0.3 Baso % (Auto) 0.3 Absolute Neuts (auto) 8.7 H Absolute Lymphs (auto) 1.08 Nucleated RBC % 0 PT 12.2 INR 0.9 APTT 24.1 Sodium 129 L Potassium 4.2 Chloride 94 L Carbon Dioxide 16.4 L Anion Gap 19 H BUN 14 Creatinine 0.73 Estim Creat Clear Calc 123.80 Est GFR (MDRD) Non-Af 103 BUN/Creatinine Ratio 19.2 Glucose 527 H* Lactic Acid 1.1 Calcium 9.0 b-Hydroxybutyric mmol/L 2.6 H Serum , Qual NEGATIVE Urine Color Straw Urine Clarity Clear Urine pH 6.0 Ur Specific [place] 1.015 Urine Protein 30 H Urine Glucose (UA) 1000 H Urine Ketones 150 A* Urine Occult Blood 50 H Urine Nitrite Negative Urine Bilirubin Negative Urine Urobilinogen Normal Ur Leukocyte Esterase 100 H Urine RBC 5-10 SEEN Urine WBC 10-25 SEEN Ur Squamous Epith Cells 0-5 SEEN Urine Bacteria 0 SEEN Urine Mucus 0 SEEN POC Glucose 08/11/25 17:32 WBC RBC Hgb Hct MCV MCH MCHC RDW Std Deviation RDW Coeff of Meet Plt Count MPV Immature Gran % (Auto) Neut % (Auto) Lymph % (Auto) [place] % (Auto) Eos % (Auto) Baso % (Auto) Absolute Neuts (auto) Absolute Lymphs (auto) Nucleated RBC % PT INR APTT Sodium Potassium Chloride Carbon Dioxide Anion Gap BUN Creatinine Estim Creat Clear Calc Est GFR (MDRD) Non-Af BUN/Creatinine Ratio Glucose Lactic Acid Calcium b-Hydroxybutyric mmol/L Serum , Qual Urine Color Urine Clarity Urine pH Ur Specific [place] Urine Protein Urine Glucose (UA) Urine Ketones Urine Occult Blood Urine Nitrite Urine Bilirubin Urine Urobilinogen Ur Leukocyte Esterase Urine RBC Urine WBC Ur Squamous Epith Cells Urine Bacteria Urine Mucus POC Glucose 373 H ABG Data ABG results: ABG 08/11/25 16:30 Specimen Type KISHAN Sample Site [id number] VBG pH 7.45 H VBG pO2 32 VBG HCO3 22 VBG Total CO2 23 VBG O2 Sat (Calc) 67 VBG Base Excess -2 L POC Mix VBG pCO2 Pt Tmp 31.8 L O2 Delivery Device Not entered Radiography Diagnostic Testing: Clinical Impression(s) from Imaging Studies Abdomen/Pelvis CT 08/11/25 14:10 IMPRESSION: No perirectal abscess noted Reading Location: [facility] Treatment and Re-Evaluation :: Patient was given IV fluids. Patient was started on Unasyn, vancomycin, and clindamycin. <Dr. David Hanna, DO - Last Filed: 08/11/25 18:36> [facility] MDM Narrative Medical decision making narrative: Differential diagnosis includes abscess, cellulitis, necrotizing fasciitis, urinary tract infection, sepsis, and electrolyte abnormality. CBC will be obtained to assess for leukocytosis and anemia. Basic metabolic profile will be obtained to assess for electrolyte abnormality and renal function. PT with INR and PTT will be obtained to assess for coagulopathy. Serum lactate will be obtained to assess for sepsis. Serum hCG will be obtained to assess for . Urinalysis will be obtained to assess for urinary tract infection and hematuria. Blood cultures will be obtained to assess for sepsis. CT scan of the abdomen and pelvis will be obtained to assess for abscess, and necrotizing fasciitis. Dr. Hanna: Patient was signed out to me by day provider. At the time of sign out we were awaiting for beta hydroxybutyrate, VBG, CT abdomen pelvis. VBG without acidosis. Beta hydroxybutyrate elevated at 2.6. Patient not in DKA. Repeat glucose in the 300s. Another NS bolus ordered with IV insulin to help patient's hyperglycemia. I suspect it is elevated secondary to her current infection. CT abdomen pelvis without any perirectal abscess. Upon my examination into the room, patient is pacing secondary to pain. Morphine ordered. I did personally examine the area of concern. I agree with the examination above. She is tender to palpation in this area. I did recommend performing a bedside incision and drainage to see if any purulence can be expressed. Patient declined. She states last time this was incised she ended up with necrotizing fasciitis. She states she prefers to be admitted with IV antibiotics as this usually cures her infections. Will hold off on incision and drainage per patient's wish. I spoke with the hospitalist who accepted admission with IV antibiotics. Patient confirmed understand the plan. Lab Data Labs: Laboratory Results - last 24 hr 08/11/25 08/11/25 08/11/25 13:40 14:30 15:20 WBC 10.5 RBC 4.83 Hgb 14.0 Hct 39.9 MCV 82.6 MCH 29.0 MCHC 35.1 RDW Std Deviation 38.5 RDW Coeff of Meet 12.8 Plt Count 169 MPV 11.7 Immature Gran % (Auto) 0.500 Neut % (Auto) 82.3 H Lymph % (Auto) 10.3 L [place] % (Auto) 6.3 Eos % (Auto) 0.3 Baso % (Auto) 0.3 Absolute Neuts (auto) 8.7 H Absolute Lymphs (auto) 1.08 Nucleated RBC % 0 PT 12.2 INR 0.9 APTT 24.1 Sodium 129 L Potassium 4.2 Chloride 94 L Carbon Dioxide 16.4 L Anion Gap 19 H BUN 14 Creatinine 0.73 Estim Creat Clear Calc 123.80 Est GFR (MDRD) Non-Af 103 BUN/Creatinine Ratio 19.2 Glucose 527 H* Lactic Acid 1.1 Calcium 9.0 b-Hydroxybutyric mmol/L 2.6 H Serum , Qual NEGATIVE Urine Color Straw Urine Clarity Clear Urine pH 6.0 Ur Specific [place] 1.015 Urine Protein 30 H Urine Glucose (UA) 1000 H Urine Ketones 150 A* Urine Occult Blood 50 H Urine Nitrite Negative Urine Bilirubin Negative Urine Urobilinogen Normal Ur Leukocyte Esterase 100 H Urine RBC 5-10 SEEN Urine WBC 10-25 SEEN Ur Squamous Epith Cells 0-5 SEEN Urine Bacteria 0 SEEN Urine Mucus 0 SEEN POC Glucose 08/11/25 17:32 WBC RBC Hgb Hct MCV MCH MCHC RDW Std Deviation RDW Coeff of Meet Plt Count MPV Immature Gran % (Auto) Neut % (Auto) Lymph % (Auto) [place] % (Auto) Eos % (Auto) Baso % (Auto) Absolute Neuts (auto) Absolute Lymphs (auto) Nucleated RBC % PT INR APTT Sodium Potassium Chloride Carbon Dioxide Anion Gap BUN Creatinine Estim Creat Clear Calc Est GFR (MDRD) Non-Af BUN/Creatinine Ratio Glucose Lactic Acid Calcium b-Hydroxybutyric mmol/L Serum , Qual Urine Color Urine Clarity Urine pH Ur Specific [place] Urine Protein Urine Glucose (UA) Urine Ketones Urine Occult Blood Urine Nitrite Urine Bilirubin Urine Urobilinogen Ur Leukocyte Esterase Urine RBC Urine WBC Ur Squamous Epith Cells Urine Bacteria Urine Mucus POC Glucose 373 H ABG Data ABG results: ABG 08/11/25 16:30 Specimen Type KISHAN Sample Site [id number] VBG pH 7.45 H VBG pO2 32 VBG HCO3 22 VBG Total CO2 23 VBG O2 Sat (Calc) 67 VBG Base Excess -2 L POC Mix VBG pCO2 Pt Tmp 31.8 L O2 Delivery Device Not entered Radiography Diagnostic Testing: Clinical Impression(s) from Imaging Studies Abdomen/Pelvis CT 08/11/25 14:10 IMPRESSION: No perirectal abscess noted Reading Location: [facility] Discharge Plan Triage Chief Complaint: Wound ED Provider: Myles Cabrera Dx/Rx/DC Orders Prescriptions: No Action insulin lispro [Humalog KwikPen Insulin] 100 unit/mL insulin pen 44 unit SUBCUT TID Patient Comments: INJECT 44 UNITS SUBCUTANEOULSY WITH MEALS insulin glargine [Basaglar KwikPen U-100 Insulin] 100 unit/mL (3 mL) insulin pen 66 unit SUBCUT BID Patient Comments: INJECT 40 UNITS SUBCUTANEOUSLY TWICE DAILY atorvastatin 10 mg tablet 10 mg PO QHS lisinopril 5 mg tablet 5 mg PO DAILY ropinirole 0.5 mg tablet 1.5 mg PO QHS insulin degludec [Tresiba FlexTouch U-100] 100 unit/mL (3 mL) insulin pen 64 unit subcut BID Primary Care Provider: Joaquin Huitron Referrals: Joaquin Huitron MD [Primary Care Provider, Family Practice] Print Language: [place]
[2025-08-11] MEDS: 0.9% Normal Saline (1000mL) 1,000 ML 1000 ML IV (14:21)
[2025-08-11 14:28] LABS: Hematocrit 39.9 % (37-47); Hemoglobin 14.0 g/dL (12.0-15.0); Immature Granulocytes Count 0.050 X10^3/uL (0.0-0.0); Mean Corp Hgb Conc 35.1 g/dL (32-36); Mean Corpuscular Volume 82.6 fL (81-99); Mean Platelet Vol. 11.7 fl (6.2-12.0); NRBC Flagged by Analyzer 0 % (0-5); Platelet Count 169 K/mm3 (150-450); RBC Distribution Width CV 12.8 % (11.6-14.6); RBC Distribution Width SD 38.5 fl (35.1-43.9); Red Blood Count 4.83 M/mm3 (4.2-5.4); White Blood Count 10.5 K/mm3 (4.4-11.0)
--- NOTE | 2025-08-11 14:36 | ED.RN ---
Pt had tubal ligation, per MD no need to wait on serum preg results prior to CT scan
[2025-08-11 14:38] LABS: Prothrombin Time (Protime)PT. 12.2 SECONDS (11.7-14.9)
[2025-08-11] MEDS: Clindamycin 900 MG/50 ML BAG 75 MG IV (14:38)
[2025-08-11 14:39] LABS: Partial Thromboplast Time 24.1 Seconds (24.1-36.2)
[2025-08-11 14:47] LABS: Internal QC Validated? YES +Cl - CLEAR BKGD; Pregnancy, Serum, hCG Quali. NEGATIVE Negative; Record Kit Lot#, Serum Preg. 980607
--- OUTSIDE RECORDS SUMMARY | 2025-08-11 14:47 | XMS RPT_ITS | CCD ---
Author Organization [facility] Care Team Providers Care Staff Mine Warfare Officer Name Role Phone BEATRIZ BLAIR Attending Unavailable BEATRIZ BLAIR Primary Care Unavailable BEATRIZ BLAIR Admitting Unavailable Kevan MURRY, Shakira Ramírez Primary Care Provider [phone] Toym MURRY, Jean Claude Robbins Primary Care Provider Tomy MURRY, Jean Claude Primary Care Provider Tomy MURRY, Jean Claude Robbins Primary Care Provider Jean Claude Huitron MD Primary Care Provider Jean Claude Huitron MD Primary Care Provider JEAN CLAUDE HUITRON Primary Care Unavailable [facility] Primary Care Unavailable SONIDO HUITRONER Referring Unavailable CARVALHO, KECIA A Admitting Unavailable MAIA, KECIA A Attending Unavailable ROXANA MOORE Attending Unavailable TOMY, [facility] Primary Care Unavailable MAIA KECIA A Referring Unavailable ROXANA MOORE Attending Unavailable ROXANA MOORE Referring Unavailable [facility] Primary Care Unavailable ROXANA MOORE Admitting Unavailable RICHARDLEY CHRISTPACOER Referring Unavailable RICHARDLEY, CHRISTOPHER Primary Care Unavailable RICHARDLEY CHRISTPACOER Referring Unavailable ROXANA MOORE Attending Unavailable [facility] Primary Care Unavailable RICHARDLEY, CHRISTOPHER Primary Care Unavailable CARVALHO, KECIA A Attending Unavailable MAIA, KECIA A Referring Unavailable SELF, SELF Referring Unavailable MAIA, KECIA A Attending Unavailable [facility] Primary Care Unavailable JOSE WEINSTEIN Attending Unavailable TOMY, LOYDAOPHER B Primary Care Unavailab MARIA DEL CARMEN Hidalgo MD Attending Unavailable TOMY, LOYDAOPH B Primary Care Unavailab carlos HUITRON MD, HAMILTON Primary Care Physician JEAN CLAUDE HUITRON Referring Unavailab JEAN CLAUDE Huang Primary Care Unavailab carlos Huitron MD, Jean Claude Robbins Primary Care Provider RIKI COATES Attending Unavailable TOMY MURRY, HAMILTON Primary Care Unavaila avila MYERS MD, MYA Alcantar Attending Unavail able TOMY MURRY, HAMILTON Primary Care Unavaila avila NANCE MD, DR MARTHA FALL Attending Roseanna HUITRON MD, HAMILTON Primary Care Unavaila avila MONTANO MD, CAPRICE Cheng Attending Unavailable TOMY MURRY, HAMILTON Primary Care Unavaila ble Podlogar MEDICAL RECORDS TECHNICIAN.Irlanda BLACKWOOD Unavailable [phone] Grace Stinson Attending Unavailable Sosa, Achintya Admitting Unavailable Sosa, Achintya Consulting Unavailable Tomy, Joaquin Primary Care Unavailable Tristin Solo Consulting Unavailable Fran Daley Consulting Unavailable Jorge Frazier Consulting Unavailable Jorge Frazier Attending Unavailable Sosa, Achintya Attending Unavailable Jorge Frazier Referring Unavailable Tristin Sweeney Attending Unavailable Joaquin Huitron Referring Unavailable Richardley, Joaquin Primary Care Unavailable Tristin Sweeney Attending Unavailable Joaquin Huitron Referring Unavailable Bursley, Joaquin Primary Care Unavailable Cosme Link Attending Unavailable Tomy, Joaquin Primary Care Unavailable Myles Cabrera Attending Unavailable Richardley, Joaquin Primary Care Unavailable Ossa, Achintya Admitting Unavailable Sosa, Achintya Consulting Unavailable Jorge Frazier Attending Unavailable Richardley, Joaquin Primary Care Unavailable Tristin Solo Consulting Unavailable Fran Daley Consulting Unavailable JEAN CLAUDE HUITRON B Primary Care Unavailab le JEAN CLAUDE HUITRON B Primary Care Unavailab le PODIRLANDA MURO Attending Unavailable JEAN CLAUDE HUITRON Attending Unavailab JEAN CLAUDE Huang Primary Care Unavailab JEAN CLAUDE Haung Referring Unavailab le JEAN CLAUDE HUITRON B Primary Care Unavailab le JEAN CLAUDE HUITRON B Primary Care Unavailab le [place] MEDICAL RECORDS TECHNICIAN.Mary Ellen BLACKWOOD Unavailable Allergies Allergy Classification Reported Allergen(s) Allergy Type Date of Onset Reaction(s) Facility dulaglutide (2 sources) dulaglutide Drug Allergy 6 Vomiting [facility] metFORMIN (2 sources) metFORMIN Drug Allergy 5 Diarrhea [facility] (20 sources) dulaglutide; Translations: [DULAGLUTIDE] Drug Allergy 6 Vomiting, Nausea and Vomiting [facility] (20 sources) metFORMIN; Translations: [METFORMIN] Drug Allergy 5 Diarrhea, Nausea and Vomiting [facility] (1 source) metFORMIN Drug Allergy 5 [facility] Repository Medications Current Medications Medication Drug Class(es) Dates Sig (Normalized) Sig (Original) 8 hr acetaminophen 650 mg extended release oral tablet (8 sources) Start: 05-21-2022 End: 05-24-2022 take 1 tablet by mouth every six hours acetaminophen 650 MG Tab CR Take 1 tablet by mouth every 6 hours for 3 days. 12 tablet 0 05/21/2022 05/24/2022 Active Start: 05-21-2022 End: 05-21-2022 acetaminophen (TYLENOL) tabl et 650 mg Start: 09-11-2021 End: 06-08-2022 take 3 tablets by mouth every eight hours acetaminophen 325 MG tablet Take 3 tablets by mouth every 8 hours. 50 tablet 3 09/11/2021 06/08/2022 Discontinued (Therapy completed) Start: 05-18-2021 take 2 tablets by mo uth every six hours as needed acetaminophen 325 MG tablet Take 2 tablets by mouth every 6 hours as needed for Moderate Pain. 0 05/18/2021 Active acetaminophen 325 mg / oxyCODONE hydrochloride 5 mg oral tablet (20 sources) Opioid Agonist Start: 05-28-2024 End: 05-30-2024 take 1 tablet by mouth every six hours as needed for pain Percocet 5 mg-325 mg oral tablet Dose = 1 tab(s), Oral, q6h, PRN Pain, X 2 day(s), # 8 tab(s), 0 Refill(s), Kidney stone, 100 Start Date: 05/28/24 Stop Date: 05/30/24 Status: Ordered Start: 04-13-2023 take 1 tablet by abe every six hours as needed Oxycodone-Acetaminophen Active 1 TABLET PO EVERY 6 HOURS NEEDED 20 5 April 13, 2023 Start: 06-13-2022 End: 01-14-2023 take 1 tablet by mouth every six hours Oxycodone-Acetaminophen (Percocet) 5-325 mg tablet Active 1 TABLET PO EVERY 6 HOURS 12 June 13, 2022 Start: 07-03-2016 End: 07-09-2016 take 1 tablet by mouth every four hours as needed Oxycodone-Acetaminophen Discontinued 1 - 2 TABLET PO EVERY 4 HOURS NEEDED July 03, 2016 12:00am July 09, 2016 11:14am Comment on above: Take 1 tablet by abe th every 6 hours as needed for pain. amoxicillin 875 mg / clavulanate 125 mg oral tablet (6 sources) Penicillin-class Antibacterial Start: 04-05-20 End: 04-15-20 take 1 tablet by mouth twice daily amoxicillin-clavulanic acid (AUGMENTIN) 875-125 mg per tablet Indications: Sinobronchitis Take 1 tablet by mouth twice daily for 10 days. 20 tablet 0 04/05/2023 04/15/2023 Active Start: 05-23-2021 take 875 mg by mouth every twelve hours Amoxicillin-Pot Clavulanate Active 875 MG PO Q12H May 23, 2021 12:00am Comment on above: Take 1 tablet by abe th twice daily for 10 days. ascorbic acid 500 mg oral tablet (1 source) Vitamin C Start: 05-18-20 End: 06-17-20 take 1 tablet by mouth twice daily ascorbic acid 500 MG tablet Take 1 tablet by mouth 2 times daily. 60 tablet 0 05/18/2021 06/17/2021 Active atorvastatin 10 mg oral tablet (20 sources) HMG-CoA Reductase Inhibitor Start: 08-27-20 End: 04-21-20 take 1 tablet by mouth once daily at bedtime for hyperlipidemia atorvastatin (LIPITOR) 10 mg tablet Indications: Diabetes mellitus type II (HCC) Take 1 tablet by mouth daily at bedtime. For cholesterol. 90 tablet 1 10/23/2024 04/21/2025 Active Start: 09-14-2021 End: 07-28-2024 take 1 tablet by mouth once daily at bedtime for hyperlipidemia atorvastatin (LIPITOR) 10 mg tablet Indications: Diabetes mellitus type II (HCC) Take 1 tablet by mouth daily at bedtime. For cholesterol. 90 tablet 01/30/2024 07/28/2024 Active Comment on above: Take 1 tablet by abe th daily at bedtime. For cholesterol. Blood-Glucose Meter (ACCU-CHEK KENNY PLUS METER) (14 sources) Start: 05-03-2024 Blood-Glucose Meter (ACCU-CHEK KENNY PLUS METER) Indications: Uncontrolled type 2 diabetes mellitus with hyperglycemia (HCC) Test glucose twice daily, 250.02. Insulin yes. 1 Each 05/03/2024 Active Blood-Glucose Meter,Continuous (FREESTYLE KERRI 3 READER) misc (20 sources) Start: 04-06-2024 Blood-Glucose Meter,Continuous (FREESTYLE KERRI 3 READER) misc Indications: Type 2 diabetes mellitus with hyperglycemia, with long-term current use of insulin ([facility]) 1 Device four times daily. 1 Each 04/06/2024 Active Start: 04-06-2024 Blood-Glucose Meter,Continuous (FREESTYLE KERRI 3 READER) misc Indications: Type 2 diabetes mellitus with hyperglycemia, with long-term current use of insulin ([facility]) 1 Device four times daily. 1 Each 0 04/06/2024 Active Blood-Glucose Sensor (FREESTYLE KERRI 3 SENSOR) sheba (20 sources) Start: 04-06-2024 Blood-Glucose Sensor (FREESTYLE KERRI 3 SENSOR) sheba Indications: Type 2 diabetes mellitus with hyperglycemia, with long-term current use of insulin ([facility]) 1 Device every 2 weeks. 2 Each 5 04/06/2024 Active cefdinir 300 mg oral capsule (1 source) Cephalosporin Antibacterial Start: 09-30-2023 End: 10-07-2023 cefdinir 300 mg oral capsule Dose : 300 mg = 1 cap(s), Oral, q12h, X 7 day(s), # 14 cap(s), 0 Refill(s), 10/07/23 1:50:00 PM EST, 104.5 Start Date: 09/30/23 Stop Date: 10/07/23 Status: Ordered cefpodoxime 200 mg oral tablet (5 sources) Cephalosporin Antibacterial Start: 06-13-2022 End: 06-24-2022 take 200 mg by mouth twice daily at mealtime Cefpodoxime Active 200 MG PO TWICE A DAY June 13, 2022 12:00am must administer with a meal/food Comment on above: Take 200 mg by mouth twice daily. cephalexin 250 mg oral capsule (3 sources) Cephalosporin Antibacterial Start: 09-22-2023 End: 09-29-2023 cephalexin 250 mg oral capsule Dose : 250 mg = 1 cap(s), Oral, QID, X 7 day(s), # 28 cap(s), 0 Refill(s), 09/29/23 6:29:00 PM EST, 104 Start Date: 09/22/23 Stop Date: 09/29/23 Status: Ordered Start: 11-28-2022 End: 12-05-2022 take 1 capsule by mouth four times daily cephALEXin (KEFLEX) 500 mg capsule Take 1 capsule by mouth four times daily for 7 days. 28 capsule 0 11/28/2022 12/05/2022 Active Comment on above: Take 1 capsule by mo [facility] four times daily for 7 days. ciprofloxacin 500 mg oral tablet (4 sources) Quinolone Antimicrobial Start: 07-07-20 End: 07-14-20 take 1 tablet by mouth twice daily ciprofloxacin HCl (CIPRO) 500 mg tablet Indications: UTI symptoms Take 1 tablet by mouth twice daily for 7 days. 14 tablet 0 07/07/2022 07/14/2022 Active Start: 06-21-2022 End: 06-28-2022 take 1 tablet by mouth twice daily ciprofloxacin HCl (CIPRO) 500 mg tablet Take 1 tablet by mouth twice daily for 7 days. 14 tablet 0 06/21/2022 06/28/2022 Active Comment on above: Take 1 tablet by [facility] twice daily for 7 days. cyclobenzaprine hydrochloride 10 mg oral tablet (9 sources) Muscle Relaxant Start: 09-11-20 End: 06-08-20 take 10 mg by mouth three times daily as needed Cyclobenzaprine Active 10 MG PO 3 TIMES DAILY NEEDED September 14, 2021 1:00am Disposable Gloves Misc (1 source) Start: 05-18-20 gabapentin 100 mg oral capsule (8 sources) Anti-epileptic Agent Start: 09-14-20 take 100 mg by mouth three times daily Gabapentin Active 100 MG PO THREE TIMES A DAY September 14, 2021 1:00am Start: 09-11-2021 End: 06-08-2022 take 1 capsule by mouth every eight hours gabapentin 100 MG capsule Take 1 capsule by mouth every 8 hours for 7 days. 21 capsule 0 09/11/2021 06/08/2022 Discontinued (Therapy completed) Start: 05-18-2021 take 1 capsule by mo [facility] three times daily gabapentin 100 MG capsule Take 1 capsule by mouth 3 times daily for 7 days. 21 capsule 0 05/18/2021 Active Gauze Pads & Dressings (Abdominal Pad) 8X10 Pads (5 sources) Start: 09-11-2021 Gauze Pads & Dressings (Curity Abdominal) 5X9 Pads (1 source) Start: 05-18-2021 Gauze Pads & Dressings (Kerlix Bandage Roll) Misc (1 source) Start: 05-18-2021 sodium hypochlorite 1.25 mg/ml topical solution (1 source) Start: 05-18-2021 sodium hypochlorite 1/4 strength (0.125%) Solution Apply 1 Application topically 2 times daily. 473 mL 0 05/18/2021 Active ibuprofen 600 mg oral tablet (8 sources) Nonsteroidal Anti-inflammatory Drug Start: 05-21-2022 End: 05-24-2022 take 1 tablet by mouth every six hours ibuprofen 600 MG tablet Take 1 tablet by mouth every 6 hours for 3 days. 12 tablet 0 05/21/2022 05/24/2022 Active Start: 05-21-2022 End: 05-21-2022 ibuprofen (MOTRIN) tablet 60 0 mg Start: 09-11-2021 End: 06-08-2022 take 1 tablet by mouth every eight hours ibuprofen 600 MG tablet Take 1 tablet by mouth every 8 hours. 50 tablet 3 09/11/2021 06/08/2022 Discontinued (Therapy completed) Start: 05-18-2021 take 1 tablet by abe every six hours ibuprofen 600 MG tablet Take 1 tablet by mouth every 6 hours. 0 05/18/2021 Active Inhalational Spacing Device (1 source) Start: 04-05-2023 End: 04-05-2023 Inhalational Spacing Device Indications: Sinobronchitis 1 Device one time only for 1 dose. 1 Each 0 04/05/2023 04/05/2023 Active Comment on above: 1 Device one time on ly for 1 dose. 3 ml insulin degludec 100 unt/ml pen injector (20 sources) Insulin Analog Start: 10-22-2024 End: 04-20-2025 insulin degludec (TRESIBA FLEXTOUCH U-100) 100 unit/mL (3 mL) injection pen Indications: Type 2 diabetes mellitus with hyperglycemia, with long-term current use of insulin (HCC) Inject 64 Units subcutaneously two times a day. 120 mL 1 10/22/2024 04/20/2025 Active Start: 09-30-2023 inject 1 dose by sub cutaneous injection once daily at bedtime Tresiba FlexTouch 100 units/mL 3 mL subcutaneous solution Dose : 56 unit(s) =, Subcutaneous, qHS Start Date: 09/30/23 Status: Ordered Start: 06-03-2023 End: 10-30-2024 insulin degludec (TRESIBA FLEXTOUCH U-100) 100 unit/mL (3 mL) injection pen Inject 60 Units subcutaneously two times a day. 108 mL 1 05/03/2024 10/22/2024 Discontinued Start: 02-15-2023 End: 08-14-2023 insulin degludec (TRESIBA FLEXTOUCH U-100) 100 unit/mL (3 mL) injection pen Inject 56 Units subcutaneously daily at bedtime. 51 mL 1 02/15/2023 06/03/2023 Discontinued Comment on above: Inject 56 Units subcutaneously daily at bedtime. Inject 60 Units subc utaneously twice daily. Inject 60 Units subc utaneously two times a day. 3 ml insulin glargine 100 unt/ml pen injector (20 sources) Insulin Analog Start: 023 inject 1 dose by subcutaneous injection once daily at bedtime Basaglar KwikPen 100 units/mL subcutaneous solution Dose : 56 unit(s) =, Subcutaneous, qHS, INJECT 56 UNITS SUBCUTANEOUSLY ONCE DAILY AT BEDTIME Start Date: 09/30/23 Status: Ordered Start: 01-14-2023 End: 04-14-2023 insulin glargine (BASAGLAR K WIKPEN U-100 INSULIN) 100 unit/mL (3 mL) Indications: diabetes mellitus Inject 56 Units subcutaneously daily at bedtime. 51 mL 0 01/14/2023 04/14/2023 Active Start: 07-07-2022 End: 01-14-2023 insulin glargine (LANTUS NICOLE OSTAR U-100 INSULIN) 100 unit/mL (3 mL) Inject 46 units subcutaneously twice a day 9 Each 3 07/07/2022 01/14/2023 Discontinued Start: 04-22-2022 End: 07-07-2022 insulin glargine (LANTUS NICOLE OSTAR U-100 INSULIN) 100 unit/mL (3 mL) Inject 46 units subcutaneously twice a day 9 Each 3 07/07/2022 Active Start: 12-02-2021 End: 04-22-2022 insulin glargine (LANTUS NICOLE OSTAR U-100 INSULIN) 100 unit/mL (3 mL) Indications: Diabetes mellitus type II (HCC) Inject 40 units subcutaneously twice a day 5 Pen 3 02/26/2022 04/22/2022 Discontinued Start: 04-23-2021 Insulin Glargi ne (Basaglar Kwikpen U-100 Insulin) 100 unit/mL (3 mL) insulin pen Active 40 UNIT SC TWICE A DAY April 23, 2021 12:00am inject 46 [IU] by nj bcutaneous injection twice daily insulin glargine 100 UNIT/ML vial Inject 46 Units under the skin 2 times daily. 0 Active inject 40 [IU] by nj bcutaneous injection twice daily insulin glargine 100 UNIT/ML vial Inject 40 Units under the skin 2 times daily. 0 Active inject 36 [IU] by nj bcutaneous injection twice daily insulin glargine 100 UNIT/ML vial Inject 36 Units under the skin 2 times daily. 0 Active Comment on above: Inject 40 units subc utaneously twice a day Inject 46 units subc utaneously twice a day Inject 56 Units subc utaneously daily at bedtime. 3 ml insulin lispro 100 unt/ml pen injector (20 sources) Insulin Analog Start: 10-22-2024 End: 04-20-2025 insulin lispro (HUMALOG KWIKPEN) 100 unit/mL Indications: Type 2 diabetes mellitus with hyperglycemia, with long-term current use of insulin (HCC) Inject 44 Units subcutaneously three times a day before meals. 120 mL 1 10/22/2024 04/20/2025 Active Start: 08-27-2024 End: 10-22-2024 insulin lispro (HUMALOG KWIK PEN) 100 unit/mL Indications: Type 2 diabetes mellitus with hyperglycemia, with long-term current use of insulin (HCC) Inject 40 Units subcutaneously three times a day before meals. 36 mL 08/27/2024 10/22/2024 Discontinued Start: 04-06-2024 End: 08-25-2024 insulin lispro (HUMALOG KWIK PEN) 100 unit/mL Indications: Type 2 diabetes mellitus with hyperglycemia, with long-term current use of insulin (HCC) Inject 40 Units subcutaneously three times a day before meals. 16 Each 04/06/2024 08/25/2024 Discontinued Start: 11-01-2023 End: 04-06-2024 insulin lispro (HUMALOG KWIK PEN) 100 unit/mL Indications: Type 2 diabetes mellitus with hyperglycemia, with long-term current use of insulin ([facility]) Inject 36 Units subcutaneously three times a day before meals. 16 Each 0 01/30/2024 04/06/2024 Discontinued Start: 09-30-2023 inject 1 dose by sub cutaneous injection three times daily before mealtime Insulin Lispro KwikPen 100 units/mL injectable solution Dose : 32 unit(s) =, Subcutaneous, TIDAC, INJECT 32 UNITS SUBCUTANEOUSLY THREE TIMES DAILY BEFORE MEAL(S) Start Date: 09/30/23 Status: Ordered Start: 07-07-2022 insulin lispro (HUMALOG KWIKPEN) 100 unit/mL Inject 26 Units subcutaneously three times daily before meals. 16 Each 3 07/07/2022 Active Start: 04-22-2022 End: 06-03-2023 insulin lispro (HUMALOG KWIK PEN INSULIN) 100 unit/mL Inject 26 units subcutaneously with meals. 15 Pen 2 04/22/2022 06/03/2023 Discontinued Start: 11-30-2021 End: 04-22-2022 insulin lispro (HUMALOG KWIK PEN INSULIN) 100 unit/mL Inject 22 units subcutaneously with meals. 15 Pen 2 04/02/2022 04/22/2022 Discontinued Start: 04-23-2021 Insulin Lispro (Humalog Kwikpen Insulin) 100 unit/mL insulin pen Active 22 UNIT SC THREE TIMES A DAY April 23, 2021 12:00am inject 22 [IU] by nj bcutaneous injection three times daily at mealtime insulin lispro 100 UNIT/ML vial Inject 22 Units under the skin 3 times daily with meals. 0 Active Comment on above: Inject 22 units subc utaneously with meals. Inject 26 units subc utaneously with meals. Inject 26 Units subc utaneously three times daily before meals. Inject 36 Units subc utaneously three times a day before meals. insulin lispro 100 UNIT/ML vial (5 sources) inject 26 [IU] by subcutaneous injection three times daily at mealtime insulin lispro 100 UNIT/ML vial Inject 26 Units under the skin 3 times daily with meals. 0 Active inject 22 [IU] by nj bcutaneous injection three times daily at mealtime insulin lispro 100 UNIT/ML vial Inject 22 Units under the skin 3 times daily with meals. 0 Active levoFLOXacin 500 mg oral tablet (4 sources) Quinolone Antimicrobial Start: 05-25-2021 take 500 mg by mouth once daily Levofloxacin Active 500 MG PO DAILY May 25, 2021 12:00am lisinopril 5 mg oral tablet (20 sources) Angiotensin Converting Enzyme Inhibitor Start: 08-27-2024 End: 04-21-2025 take 1 tablet by mouth once daily lisinopril (ZESTRIL) 5 mg tablet Take 1 tablet by mouth once daily. 90 tablet 1 10/23/2024 04/21/2025 Active Start: 09-14-2021 End: 07-28-2024 take 1 tablet by mouth once daily lisinopril (ZESTRIL) 5 mg tablet Take 1 tablet by mouth once daily. 90 tablet 01/30/2024 07/28/2024 Active Comment on above: Take 1 tablet by abe th once daily. metFORMIN hydrochloride 500 mg oral tablet (20 sources) Biguanide Start: 09-30-2023 MetFORMIN (Eqv-Glucophage XR) 500 mg oral tablet, EXTENDED RELEASE Dose : 500 mg = 1 tab(s), Oral, BID Start Date: 09/30/23 Status: Ordered Start: 01-14-2023 End: 04-06-2024 take 1 tablet by mouth twice daily metFORMIN ER (GLUCOPHAGE XR) 500 mg 24 hr tablet Indications: Type 2 diabetes mellitus with hyperglycemia, with long-term current use of insulin (HCC) Take 1 tablet by mouth twice daily. 60 tablet 2 01/14/2023 04/06/2024 Discontinued (Side Effects) Comment on above: Take 1 tablet by abe th twice daily. Multiple Vitamin (multivitamin) capsule (6 sources) take 1 capsule by mouth once daily Multiple Vitamin (multivitamin) capsule Take 1 capsule by mouth daily. 0 Active multivitamin tablet (20 sources) Start: 07-28-20 15 take 1 tablet by mouth once daily multivitamin tablet Take 1 tablet by mouth once daily. 0 07/28/2015 Active Comment on above: Take 1 tablet by abe th once daily. naloxone hydrochloride 40 mg/ml nasal spray (1 source) Opioid Antagonist Start: 05-18-20 End: 05-18-20 naloxone 4 MG/0.1ML 1 spray by Nasal route As directed PRN for Opioid Reversal. Manning into the nose as directed. Call 911. If no response in 2 minutes use a new nasal spray in other nostril. Repeat until help arrives. 2 Each 0 05/18/2021 05/18/2022 Active ondansetron 4 mg disintegrating oral tablet (20 sources) Serotonin-3 Receptor Antagonist Start: 09-30-20 End: 05-31-20 ondansetron 4 mg oral tablet, disintegrating Dose : 4 mg = 1 tab(s), Oral, q8h, PRN as needed for nausea/vomiting, X 3 day(s), # 9 tab(s), 0 Refill(s), 05/31/24 5:02:00 PM EDT Start Date: 05/28/24 Stop Date: 05/31/24 Status: Ordered Start: 11-29-2022 End: 01-14-2023 take 1 tablet by mouth every six hours as needed ondansetron orally disintegrating (ZOFRAN ODT) 4 mg disintegrating tablet Take 1 tablet by mouth every 6 hours as needed for nausea/vomiting. 10 tablet 0 12/02/2022 01/14/2023 Discontinued Start: 05-21-2022 End: 05-21-2022 take 4 mg intravenously every four hours as needed ondansetron 4mg/2ml (ZOFRAN) injection 4 mg Start: 05-28-2021 End: 04-22-2022 Ondansetron Hcl Active 4 MG PO NEEDED September 14, 2021 1:00am Comment on above: TAKE 1 TABLET BY ABE TH EVERY 8 HOURS NEEDED FOR NAUSEA AND VOMITING Take 1 tablet by abe th every 6 hours as needed for nausea/vomiting. predniSONE 20 mg oral tablet (2 sources) Start: 3 End: 3 take 2 tablets by mouth once daily at mealtime predniSONE (DELTASONE) 20 mg tablet Indications: Sinobronchitis Take 2 tablets by mouth once daily for 4 days. Take daily with food. 8 tablet 0 04/05/2023 04/09/2023 Active Comment on above: Take [address] [facility] once daily for 4 days. Take daily with food. rOPINIRole 0.5 mg oral tablet (20 sources) Nonergot Dopamine Agonist Start: 4 End: 5 take 3 tablets by mouth once daily at bedtime rOPINIRole (REQUIP) 0.5 mg tablet Indications: RLS (restless legs syndrome) Take 3 tablets by mouth daily at bedtime. 270 tablet 1 10/23/2024 04/21/2025 Active Start: 12-06-2022 End: 07-28-2024 rOPINIRole 1 mg oral tablet Dose : 1 mg = 1 tab(s), Oral, qHS Start Date: 09/30/23 Status: Ordered Start: 05-31-2022 End: 11-27-2022 take 1 tablet by mouth once daily at bedtime rOPINIRole (REQUIP) 1 mg tablet Indications: RLS (restless legs syndrome) Take 1 tablet by mouth daily at bedtime. 90 tablet 1 05/31/2022 Active Start: 12-04-2021 End: 06-01-2022 take 1 tablet by mouth once daily at bedtime rOPINIRole (REQUIP) 0.5 mg tablet Indications: RLS (restless legs syndrome) Take 1 tablet by mouth daily at bedtime. 30 tablet 2 03/03/2022 06/01/2022 Active take [address] [facility] at bedtime rOPINIRole 0.5 MG tablet Take 1 mg by mouth at bedtime. 0 Active Comment on above: Take 1 tablet by [facility] daily at bedtime. sodium chloride 0.154 meq/ml irrigation solution (1 source) Start: 05-18-20 SODIUM CHLORIDE, EXTERNAL, (Wound Wash Saline) 0.9 % Solution Apply 1 Application topically 2 times daily. 210 mL 11 05/18/2021 Active sulfamethoxazole 800 mg / trimethoprim 160 mg oral tablet (2 sources) Dihydrofolate Reductase Inhibitor Antibacterial, Sulfonamide Antimicrobial Start: 11-28-19 23 End: 12-05-19 take 1 tablet by mouth twice daily sulfamethoxazole-t rimethoprim (BACTRIM DS) 800-160 mg per tablet Take 1 tablet by mouth twice daily for 7 days. 14 tablet 0 11/28/2022 12/05/2022 Active Comment on above: Take 1 tablet by abe th twice daily for 7 days. tamsulosin hydrochloride 0.4 mg oral capsule (4 sources) alpha-Adrenergic Harsha Start: 09-22-20 Flomax 0.4 mg oral capsule Dose : 0.4 mg = 1 cap(s), Oral, qDay, # 30 cap(s), 0 Refill(s) Start Date: 09/22/23 Status: Ordered Completed/Discontinued Medications Medication Drug Class(es) Dates Sig (Normalized) Sig (Original) acetaminophen 325 mg / HYDROcodone bitartrate 5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 [facility] Comment on above: Performed By: #### L 300.3900, L500.4050, L501.5200, L500.2500, L501.9985, L100.0100, L501.9520, L500.3400, L501.2300 #### [facility] [address] [place], [address] MCV (RBC) [Entitic vol] 88.0 fL Normal 81-99 [facility] Comment on above: Performed By: #### L 300.3900, L500.4050, L501.5200, L500.2500, L501.9985, L100.0100, L501.9520, L500.3400, L501.2300 #### [facility] [address] [place], [address] Monocytes/100 WBC (Bld) 6.9 % Normal 0-10 [facility] Comment on above: Performed By: #### L 300.3900, L500.4050, L501.5200, L500.2500, L501.9985, L100.0100, L501.9520, L500.3400, L501.2300 #### [facility] [address] [place], [address] Neutrophils/100 WBC (Bld) 63.1 % Normal 47-70 [facility] Comment on above: Performed By: #### L 300.3900, L500.4050, L501.5200, L500.2500, L501.9985, L100.0100, L501.9520, L500.3400, L501.2300 #### [facility] [address] [place], [address] Nucleated RBC (Bld) [#/Vol] 0 10*3/uL Normal 0-5 [facility] Comment on above: Performed By: #### L 300.3900, L500.4050, L501.5200, L500.2500, L501.9985, L100.0100, L501.9520, L500.3400, L501.2300 #### [facility] [address] [place], [address] Platelet mean volume (Bld) [Entitic vol] 11.7 fL Normal 6.2-12.0 [facility] Comment on above: Performed By: #### L 300.3900, L500.4050, L501.5200, L500.2500, L501.9985, L100.0100, L501.9520, L500.3400, L501.2300 #### [facility] [address] [place], [address] Platelets (Bld) [#/Vol] 213 10*3/uL Normal 150-450 [facility] Comment on above: Performed By: #### L 300.3900, L500.4050, L501.5200, L500.2500, L501.9985, L100.0100, L501.9520, L500.3400, L501.2300 #### [facility] [address] [place], [address] RBC (Bld) [#/Vol] 4.59 10*6/uL Normal 4.2-5.4 [facility] Comment on above: Performed By: #### L 300.3900, L500.4050, L501.5200, L500.2500, L501.9985, L100.0100, L501.9520, L500.3400, L501.2300 #### [facility] [address] [place], [address] RDW SD 41.4 fl Normal 35.1-43.9 [facility] Comment on above: Performed By: #### L 300.3900, L500.4050, L501.5200, L500.2500, L501.9985, L100.0100, L501.9520, L500.3400, L501.2300 #### [facility] [address] [place], [address] WBC (Bld) [#/Vol] 8.7 10*3/uL Normal 4.4-11.0 [facility] Comment on above: Performed By: #### L 300.3900, L500.4050, L501.5200, L500.2500, L501.9985, L100.0100, L501.9520, L500.3400, L501.2300 #### [facility] [address] [place], [address] Comprehensive Metabolic Prof ilon 01-05-2025 Albumin/Globulin [Mass ratio] 1.2 {ratio} Normal 0.9-2.4 [facility] Comment on above: Performed By: #### L 300.3900, L500.4050, L501.5200, L500.2500, L501.9985, L100.0100, L501.9520, L500.3400, L501.2300 #### [facility] [address] [place], [address] ALK PHOS 84 U/L Normal 35-104 [facility] Comment on above: Performed By: #### L 300.3900, L500.4050, L501.5200, L500.2500, L501.9985, L100.0100, L501.9520, L500.3400, L501.2300 #### [facility] [address] [place], [address] ALT [Catalytic activity/Vol] 15 U/L Normal <=34 [facility] Comment on above: Performed By: #### L 300.3900, L500.4050, L501.5200, L500.2500, L501.9985, L100.0100, L501.9520, L500.3400, L501.2300 #### [facility] [address] [place], [address] AST [Catalytic activity/Vol] 17 U/L Normal <=31 [facility] Comment on above: Result Comment: Hemo lysis present, Results??could be affected. ?? Performed By: #### L 300.3900, L500.4050, L501.5200, L500.2500, L501.9985, L100.0100, L501.9520, L500.3400, L501.2300 #### [facility] [address] [place], [address] Bilirubin [Mass/Vol] 0.20 mg/dL Normal 0.00-1.30 [facility] Comment on above: Performed By: #### L 300.3900, L500.4050, L501.5200, L500.2500, L501.9985, L100.0100, L501.9520, L500.3400, L501.2300 #### [facility] [address] [place], [address] Globulin (S) [Mass/Vol] 3.2 g/dL Normal 2.2-4.2 [facility] Comment on above: Performed By: #### L 300.3900, L500.4050, L501.5200, L500.2500, L501.9985, L100.0100, L501.9520, L500.3400, L501.2300 #### [facility] [address] [place], [address] Albumin [Mass/Vol] 3.8 g/dL Normal 3.5-5.0 [facility] Comment on above: Performed By: #### L 300.3900, L500.4050, L501.5200, L500.2500, L501.9985, L100.0100, L501.9520, L500.3400, L501.2300 #### [facility] [address] [place], [address] Anion gap [Moles/Vol] 12 mmol/L Normal 5-15 [facility] Comment on above: Performed By: #### L 300.3900, L500.4050, L501.5200, L500.2500, L501.9985, L100.0100, L501.9520, L500.3400, L501.2300 #### [facility] [address] [place], [address] BUN/CRE 48.2 RATIO High 10-20 [facility] Comment on above: Performed By: #### L 300.3900, L500.4050, L501.5200, L500.2500, L501.9985, L100.0100, L501.9520, L500.3400, L501.2300 #### [facility] [address] [place], [address] Calcium [Mass/Vol] 9.4 mg/dL Normal 7.6-11.0 [facility] Comment on above: Performed By: #### L 300.3900, L500.4050, L501.5200, L500.2500, L501.9985, L100.0100, L501.9520, L500.3400, L501.2300 #### [facility] [address] [place], [address] Chloride [Moles/Vol] 105 mmol/L Normal 96-108 [facility] Comment on above: Performed By: #### L 300.3900, L500.4050, L501.5200, L500.2500, L501.9985, L100.0100, L501.9520, L500.3400, L501.2300 #### [facility] [address] [place], [address] CO2 [Moles/Vol] 18.6 mmol/L Low 22.0-29.0 [facility] Comment on above: Performed By: #### L 300.3900, L500.4050, L501.5200, L500.2500, L501.9985, L100.0100, L501.9520, L500.3400, L501.2300 #### [facility] [address] [place], [address] Creatinine [Mass/Vol] 0.76 mg/dL Normal 0.70-1.20 [facility] Comment on above: Performed By: #### L 300.3900, L500.4050, L501.5200, L500.2500, L501.9985, L100.0100, L501.9520, L500.3400, L501.2300 #### [facility] [address] [place], [address] ECRCL 125.90 ml/min Normal 50-250 [facility] Comment on above: Performed By: #### L 300.3900, L500.4050, L501.5200, L500.2500, L501.9985, L100.0100, L501.9520, L500.3400, L501.2300 #### [facility] [address] [place], [place], [id number] GFR/1.73 sq M.predicted among non-blacks MDRD (S/P/Bld) [Vol rate/Area] 99 mL/min/{1.73_m2} Normal >60 [facility] Comment on above: Result Comment: mL/m in/1.73m2 CKD-EPI Creatinine Equation (2020) Performed By: #### L 300.3900, L500.4050, L501.5200, L500.2500, L501.9985, L100.0100, L501.9520, L500.3400, L501.2300 #### [facility] [address] [place], [address] Glucose [Mass/Vol] 179 mg/dL High 70-99 [facility] Comment on above: Performed By: #### L 300.3900, L500.4050, L501.5200, L500.2500, L501.9985, L100.0100, L501.9520, L500.3400, L501.2300 #### [facility] [address] [place], [place], [id number] Potassium [Moles/Vol] 4.0 mmol/L Normal 3.3-5.1 [facility] Comment on above: Result Comment: Hemo lysis present, Results??could be affected. ?? Performed By: #### L 300.3900, L500.4050, L501.5200, L500.2500, L501.9985, L100.0100, L501.9520, L500.3400, L501.2300 #### [facility] [address] [place], [address] Sodium [Moles/Vol] 136 mmol/L Normal 133-145 [facility] Comment on above: Performed By: #### L 300.3900, L500.4050, L501.5200, L500.2500, L501.9985, L100.0100, L501.9520, L500.3400, L501.2300 #### [facility] [address] [place], [address] T PROT 7.1 g/dL Normal 5.9-8.4 [facility] Comment on above: Performed By: #### L 300.3900, L500.4050, L501.5200, L500.2500, L501.9985, L100.0100, L501.9520, L500.3400, L501.2300 #### [facility] [address] [place], [address] Urea nitrogen [Mass/Vol] 37 mg/dL High 4-19 [facility] Comment on above: Performed By: #### L 300.3900, L500.4050, L501.5200, L500.2500, L501.9985, L100.0100, L501.9520, L500.3400, L501.2300 #### [facility] [address] [place], [address] Emergency Department Summary on 01-05-2025 Emergency Department Summary [facility] Medical Records Department [address] [place] [id number] Emergency Department Summary 01/05/25 MR#: [id number] Acct: [id number] Name: TRICE ZAMBRANO Rep #: [id number] : 1980 44 From: Myles Cabrera DO PCP: Dr. Joaquin Huitron MD Status:DEP ER Location: ED HPI History of Present Illness Chief Complaint: Flank Pain Narrative Narrative: Patient is a 44-year-old female with history of MRSA, colitis, diabetes, history of colostomy, kidney stones, presents to the emergency department with complaints of lower back pain that worse to the left lower back. He states he also wraps around to her front. She states her pain is worse with movement however even sitting still causes discomfort. Patient denies any fever or chills. Patient denies any UTI symptoms. Denies any specific fever or chills. The pain is been ongoing and getting worse over the last 3 days. [facility] Medical History Physical exam, pre-employment History of necrotising fasciitis Current use of insulin Diabetes Home Medications ???Medication ???Instructions ???Recorded ???Last Taken ???Type insulin glargine 100 unit/mL (3 66 unit subcut BID diabetes 09/16/24 History mL) subcutaneous pen (Basaglar KwikPen U-100 Insulin) insulin lispro 100 unit/mL 44 unit subcut TID 04/23/21 History subcutaneous pen (Humalog KwikPen (U-100) Insulin) atorvastatin 10 mg tablet 10 mg PO QHS 09/14/21 09/15/24 His tory lisinopril 5 mg tablet 5 mg PO DAILY 09/14/21 09/15/24 Hi story ropinirole 0.5 mg tablet 1.5 mg PO QHS 09/16/24 09/15/24 Hi story ondansetron HCl 4 mg tablet 4 mg PO Q6H PRN nausea and 4 Unknown Rx vomiting #14 tabs cephalexin 500 mg capsule 500 mg PO BID #10 caps 01/05/25 Un known Rx cyclobenzaprine 10 mg tablet 10 mg PO TID PRN Muscle Spasm #15 01/05/25 Unknown Rx TABLETS naproxen 500 mg tablet (Naprosyn) 500 mg PO BID PRN pain #20 tabs 0 01/05/25 Unknown Rx Allergy/AdvReac Type Severity Reaction Status Date / Time metformin AdvReac Nausea Verified 01/05/25 15:51 Family History Other Breast cancer Diabetes Surgical History History of cholecystectomy History of colostomy reversal History of colostomy S/P tubal ligation H/O: Social History adopted: No household members: spouse and children housing: house number of children: 2 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 pets and animals: No leisure activities: art, games and volunteer work history of recent travel: No sexually active: Yes Smoking Status: Never smoker ROS ROS ED ROS Narrative Constitutional: Negative for fever, chills, weight loss, weakness Eyes: Negative for vision loss, vision change, double vision ENT: Negative for any sore throat, ear pain, congestion Cardiovascular: Negative for any chest pain, tightness, palpitations Respiratory: Negative for any cough, sputum production, hemoptysis, dyspnea, dyspnea on exertion, orthopnea Gastrointestinal: Negative for any vomiting, diarrhea, constipation, blood in stool, blood in vomit. Positive abdominal pain, nausea : Negative for any urinary frequency, dysuria, retention, blood in urine Muscle skeletal: Negative for any neck pain. Positive for back pain Neurological: Negative for any headache, syncope, dizziness Skin: Negative for any rashes, itching, abrasions, lacerations Psychiatric: Negative for any depression, anxiety, stress, suicidal ideation, homicidal ideation Hematologic: Negative for any excessive bruising, easy bleeding EXAM Physical Exam Narrative Exam Narrative: Vital signs reviewed. Patient does appear to be in moderate distress secondary to pain in the lower back. HEET: Head normocephalic atraumatic, TMs clear bilaterally. Posterior pharynx is clear, moist mucous membranes. Nares clear bilaterally. Neck: Supple with no lymphadenopathy or tenderness. No signs of meningismus. Cardiac: Regular rate and rhythm no murmurs gallops or rubs, equal peripheral pulses bilaterally. Respiratory: Lungs clear to auscultation bilaterally. No chest tenderness. Abdomen: Soft, nondistended. No abdominal bruit or pulsatile masses. No hepatosplenomegaly. Tenderness to the left lower quadrant Extremities: No peripheral edema, no signs of gross trauma or deformity. Active full range of motion of all extremities. Neuro: Cranial nerves II through XII intact, no focal neurological deficits. Skin: Clean dry and intact with no rash, purpura, petechiae, vesicles or pustules. Backs (more content not included)... Normal [facility] Lipaseon 01-05-2025 Lipase [Catalytic activity/Vol] 56 U/L Normal 13-75 [facility] Comment on above: Result Comment: Dominic gong note: LIPASE revised reference range effective 23. New Lipase methodology. Expected to produce lower values than the previous assay method. NEW Reference Range: 13 - 75 U/L Performed By: #### L 300.3900, L500.4050, L501.5200, L500.2500, L501.9985, L100.0100, L501.9520, L500.3400, L501.2300 #### [facility] [address] [place], [address] ,Urineon 01-05-2025 Beta HCG ( test) Ql (U) Negative Normal [facility] Comment on above: Result Comment: Very dilute urine specimens, as indicated by a low specific gravity, may not contain open claims representative levels of hCG. If is still suspected, a first morning urine specimen should be collected 48 hours later and tested. Performed By: #### L 501.8820 #### [facility] [address] [place], [address] Urinalysis, Completeon 01-05 AMORPHOUS 1+ URATE Normal [facility] Comment on above: Order Comment: Comme nts: Trough to be drawn 30 mins prior to scheduled dose 0700 Performed By: #### L 501.8820 #### [facility] [address] [place], [address] EPI,SQUAMOUS 0-5 SEEN Normal 5-10 [facility] Comment on above: Order Comment: Comme nts: Trough to be drawn 30 mins prior to scheduled dose 0700 Performed By: #### L 501.8820 #### [facility] [address] [place], [address] RBC 0-5 SEEN Normal 0-5 [facility] Comment on above: Order Comment: Comme nts: Trough to be drawn 30 mins prior to scheduled dose 0700 Performed By: #### L 501.8820 #### [facility] [address] [place], [address] WBC 10-25 SEEN Normal 0-5 [facility] Comment on above: Order Comment: Comme nts: Trough to be drawn 30 mins prior to scheduled dose 0700 Performed By: #### L 501.8820 #### [facility] [address] [place], [address] BACTERIA 0 SEEN Normal None Seen [facility] Comment on above: Order Comment: Comme nts: Trough to be drawn 30 mins prior to scheduled dose 0700 Performed By: #### L 501.8820 #### [facility] [address] [place], [address] Mucus Ql (Urine sed) 0 SEEN Normal [facility] Comment on above: Order Comment: Comme nts: Trough to be drawn 30 mins prior to scheduled dose 0700 Performed By: #### L 501.8820 #### [facility] [address] [place], [address] CNOVon 10-22-2024 CNOV Office Visit ([facility] ) -------- TRICE ZAMBRANO ([id number]) 1980 F Date Time Provider Department 10/22/24 7:20 AM [facility] During your visit today, we recorded the following information about you: Pulse Respiration Blood pressure Weight 94/minute 12/minute 141/85 108.4 kg Height 1.727 m Jean Claude Huitron MD 10/22/2024 8:09 AM Signed Chief Complaint Patient presents with: Follow Up: diabetes follow up HPI Trice Zambrano is a 44 year old female who presents here today for Above Complaints.. DIABETES MELLITUS: Ms. Zambrano was last seen 6 months ago. Since our last visit she denies excessive thirst or increased frequency of urination, numbness, tingling or pain in extremities, new or unusual visual symptoms, and low sugar/hypoglycemic reactions. Follows a diabetic diet most of the time. She is compliant with medication(s) and is tolerating med(s) without any side effects. She reports checking her glucose on a four times a day schedule with sugars in the fasting 100-162 range with majority <140. Before [id number] with Majority around the 130-160s. Patient's last HgA1C was Hemoglobin A1C (%) Date Value 04/06/2024 8.3 08/03/2023 7.0 07/15/2021 6.9 06/01/2021 7.5 ) Last Ophthalmology exam was within the past 6 months and was negative for Diabetic Retinopathy. [facility] Last Podiatry exam was within the past 12 months RLS symptoms improved on 1.5 mg Requip qhs. Past medical history, appointments, medications, allergies reviewed. Previous Medical History PAST MEDICAL HISTORY Diagnosis Date Cellulitis and abscess of buttock 04/[address] (HCC) Reversed Diabetes mellitus type II (HCC) Gestational diabetes Hyperlipidemia Kidney stones Dr. 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 Nance Family History FAMILY HISTORY Problem Relation Age of Onset Heart Mother Drug abuse Mother Stroke Father Hypertension Maternal Grandmother other (scleroderma) Paternal Grandmother Diabetes Maternal Uncle No Known Problems Son No Known Problems Daughter Patient Allergies ALLERGIES Allergen Reactions Metformin Diarrhea Occurred while on XR formulation Trulicity [Dulaglut* Vomiting Nausea/vomiting, diarrhea and epigastric pain. Current Medications Current Outpatient Medications on File Prior to Visit Medication Sig Insulin Olivet, Disposable, (BD ULTRA-FINE VINOD PEN NEEDLE) 32 gauge x 5/32 Inject 100 Each subcutaneously four times daily. insulin lispro (HUMALOG KWIKPEN) 100 unit/mL Inject 40 Units subcutaneously three times a day before meals. rOPINIRole (REQUIP) 0.5 mg tablet Take 3 tablets by mouth daily at bedtime. atorvastatin (LIPITOR) 10 mg tablet Take 1 tablet by mouth daily at bedtime. For cholesterol. lisinopril (ZESTRIL) 5 mg tablet Take 1 tablet by mouth once daily. Lancets (ACCU-CHEK SOFTCLIX LANCETS) Test blood sugar(s) 4 times daily and as needed. Dx: 250.02. Insulin: Yes Blood-Glucose Meter (ACCU-CHEK KENNY PLUS METER) Test glucose twice daily, 250.02. Insulin yes. Insulin Olivet, Disposable, (BD ULTRA-FINE VINOD PEN NEEDLE) 32 gauge x Use one needle for each dose. 5/day. blood sugar diagnostic (ONETOUCH VERIO TEST STRIPS) test strip Test blood sugar(s) 4 times daily. Dx: Type 2 DM - Controlled E11.9 Insulin: Yes insulin degludec (TRESIBA FLEXTOUCH U-100) 100 unit/mL (3 mL) injection pen Inject 60 Units subcutaneously two times a day. Blood-Glucose Meter,Continuous (FREESTYLE KERRI 3 READER) misc 1 Device four times daily. Blood-Glucose Sensor (FREESTYLE KERRI 3 SENSOR) sheba 1 Device every 2 weeks. multivitamin tablet Take 1 tablet by mouth once daily. No current facility-administered medications on file prior to visit. Social History Social History Tobacco Use Smoking status: Never Smokeless tobacco: Never Vaping Use Vaping status: Never Used Substance Use Topics Alcohol use: No Drug use: No Review of Symptoms REVIEW OF SYSTEMS GENERAL: No weight loss, malaise or fevers RESPIRATORY: Negative for cough, hemoptysis, wheezing, COPD, dyspnea or shortness of breath CARDIOVASCULAR: Negative for chest pain, le (more content not included)... Normal [facility] 10-22-2024 JAISONN Telephone (JAWS) -------- TRICE ZAMBRANO ([id number]) 1980 F Date Time Provider Department 10/22/24 MARIO ALBERTOLOGIRLANDA RODRIGUES During your visit today, we recorded the following information about you: Podlogar, Irlanda, MEDICAL RECORDS TECHNICIAN.JAISON 10/22/2024 4:34 PM Signed Prescription refills sent for atorvastatin, Requip and lisinopril. Irlanda Hogan APRN.Britney Casillas LPN 10/22/2024 4:37 PM Signed Phoned patient aware rx x 3 were sent to the pharmacy. Allergies As of Date: 10/22/2024 Noted Allergy Reaction METFORMIN 08/26/2015 6 - Diarrhea Comments: Occurred while on XR formulation TRULICITY (DULAGLUTIDE) 03/11/2016 11 - Vomiting Comments: Nausea/vomiting, diarrhea and epigastric pain. Date Reviewed: 10/22/2024 Reviewed by: Karmen Lewis LPN - Fully Assessed Reason for Visit: Refill Request [94] Visit Diagnoses:Diabetes mellitus type II (HCC) [E11.9] RLS (restless legs syndrome) [G25.81] Order(s):atorvastatin (LIPITOR) 10 mg tabletTake 1 tablet by mouth daily at bedtime. For cholesterol.Disp: 90 tabletRfl: 1 lisinopril (ZESTRIL) 5 mg tabletTake 1 tablet by mouth once daily.Disp: 90 tabletRfl: 1 rOPINIRole (REQUIP) 0.5 mg tabletTake 3 tablets by mouth daily at bedtime.Disp: 270 tabletRfl: 1 Prescriptions as of 10/22/2024 - insulin degludec (TRESIBA FLEXTOUCH U-100) 100 unit/mL (3 mL) injection pen Inject 64 Units subcutaneously two times a day. - insulin lispro (HUMALOG KWIKPEN) 100 unit/mL Inject 44 Units subcutaneously three times a day before meals. - atorvastatin (LIPITOR) 10 mg tablet Take 1 tablet by mouth daily at bedtime. For cholesterol. - lisinopril (ZESTRIL) 5 mg tablet Take 1 tablet by mouth once daily. - rOPINIRole (REQUIP) 0.5 mg tablet Take 3 tablets by mouth daily at bedtime. - Insulin Olivet, Disposable, (BD ULTRA-FINE VINOD PEN NEEDLE) 32 gauge x 5/32 Inject 100 Each subcutaneously four times daily. - Lancets (ACCU-CHEK SOFTCLIX LANCETS) Test blood sugar(s) 4 times daily and as needed. Dx: 250.02. Insulin: Yes - Blood-Glucose Meter (ACCU-CHEK KENNY PLUS METER) Test glucose twice daily, 250.02. Insulin yes. - Insulin Olivet, Disposable, (BD ULTRA-FINE VINOD PEN NEEDLE) 32 gauge x Use one needle for each dose. 5/day. - blood sugar diagnostic (ONETOUCH VERIO TEST STRIPS) test strip Test blood sugar(s) 4 times daily. Dx: Type 2 DM - Controlled E11.9 Insulin: Yes - Blood-Glucose Meter,Continuous (FREESTYLE KERRI 3 READER) misc 1 Device four times daily. - Blood-Glucose Sensor (FREESTYLE KERRI 3 SENSOR) sheba 1 Device every 2 weeks. - multivitamin tablet Take 1 tablet by mouth once daily. Problem List As Of Date 10/22/2024 Noted Resolved Diabetes mellitus type 2, uncontrolled, without*03/09/2012 Peripheral polyneuropathy (HCC) [G62.9] 08/26/2015 Type 2 diabetes mellitus with hyperglycemia, wi* Obesity (BMI 30-39.9) [E66.9] Hyperlipidemia [E78.5] Ventral hernia [K43.9] 04/22/2022 RLS (restless legs syndrome) [G25.81] 04/24/2022 Prescriptions ordered this encounter Disp Refills Start End ATORVASTATIN 10 MG TABLET 90 t* 1 10/22/2024 04/20/2025 Route: ORAL Sig: Take 1 tablet by mouth daily at bedtime. For cholesterol. LISINOPRIL 5 MG TABLET 90 t* 1 10/22/2024 04/20/2025 Route: ORAL Sig: Take 1 tablet by mouth once daily. ROPINIROLE 0.5 MG TABLET 270 * 1 10/22/2024 04/20/2025 Route: ORAL Sig: Take 3 tablets by mouth daily at bedtime. Medications Discontinued During This Encounter Prescriptions - rOPINIRole (REQUIP) 0.5 mg tablet (Discontinued) Take 3 tablets by mouth daily at bedtime. - atorvastatin (LIPITOR) 10 mg tablet (Discontinued) Take 1 tablet by mouth daily at bedtime. For cholesterol. - lisinopril (ZESTRIL) 5 mg tablet (Discontinued) Take 1 tablet by mouth once daily. Encounter Status:Closed by BRITNEY ARCE on 10/22/24 [facility] CNOVon 09-25-2024 CNOV Office Visit (FAMPWS ) -------- TRICE ZAMBRANO ([id number]) 1980 F Date Time Provider Department 09/25/24 7:20 AM IRLANDA HOGAN During your visit today, we recorded the following information about you: Pulse Respiration Blood pressure Weight 82/minute 16/minute 136/88 110.6 kg Irlanda Hogan APRN.CNP 09/25/2024 8:29 AM Signed 09/25/2024 Patient presents with: Hospital F/U: TCM; [facility] SUBJECTIVE: This is a 44 year old that is here today for Above Complaints, HOSPITAL/ER FOLLOW UP: Reason for visit: perianal pain and swelling Which facility: [facility] Date of visit: 09/16/2024-09/18/2024 Diagnosis: rectal abscess Testing done: CT Pelvis, CMP, CBC with Diff, UA Treatment given: IV Vancomycin- discharged on Doxycyline and Amoxicillin Since discharge has been doing well. Will be completing her antibiotics today. Admits to a little nausea. Blood sugars running less than 200. Has upcoming eye appointment as she reports some difficulty seeing close up but her distance has improved. Denies diplopia. Denies fevers, chills, pain, swelling/redness of perineum, abdominal pain, or vomiting. Available hospital records reviewed TRANSITION CARE MANAGEMENT (TCM) INITIAL CONTACT [employer] Outreach Provider Action/FYI Initial contact with patient post discharge, spoke to patient. Patient identified by name and . TRANSITION CARE MANAGEMENT INITIAL OUTREACH DOCUMENTATION: 09/19/2024 Date of Outreach: Date of Discharge 09/18/2024 SUMMARY: -Pt discharged from [facility] on 09/18/24. -Admitted for: Rectal Abcess Do you have a hospital follow up appointment with your PCP? Appointment on 09/[address] Huitron Yes. Patient scheduled appointment and aware of date/time. MEDICATIONS: Many patients have questions or concerns about their medications once they are home. Were you prescribed any new medications? Yes. Amoxicillin and Doxycycline Zofran and pain medication Were you told to hold any medications? No Were any of your medications discontinued? No Do you have any questions about getting or taking your medications? No Your discharge instructions/After visit Summary (AVS) are important in guiding you through the recovery process. Is there anything I might help you understand? No Do you have all the necessary equipment and supplies at home? Yes Medical records from recent hospitalization: Care Everywhere PAST MEDICAL HISTORY Diagnosis Date Cellulitis and abscess of buttock 04/[address] (HCC) Reversed Diabetes mellitus type II (HCC) Gestational diabetes Hyperlipidemia Kidney stones Dr. 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 insulin lispro (HUMALOG KWIKPEN) 100 unit/mL Inject 40 Units subcutaneously three times a day before meals. rOPINIRole (REQUIP) 0.5 mg tablet Take 3 tablets by mouth daily at bedtime. atorvastatin (LIPITOR) 10 mg tablet Take 1 tablet by mouth daily at bedtime. For cholesterol. lisinopril (ZESTRIL) 5 mg tablet Take 1 tablet by mouth once daily. Lancets (ACCU-CHEK SOFTCLIX LANCETS) Test blood sugar(s) 4 times daily and as needed. Dx: 250.02. Insulin: Yes Blood-Glucose Meter (ACCU-CHEK KENNY PLUS METER) Test glucose twice daily, 250.02. Insulin yes. Insulin Olivet, Disposable, (BD ULTRA-FINE VINOD PEN NEEDLE) 32 gauge x 5/32 Use one needle for each dose. 5/day. blood sugar diagnostic (ONETOUCH VERIO TEST STRIPS) test strip Test blood sugar(s) 4 times daily. Dx: Type 2 DM - Controlled E11.9 Insulin: Yes insulin degludec (TRESIBA FLEXTOUCH U-100) 100 unit/mL (3 mL) injection pen Inject 60 Units subcutaneously two times a day. Blood-Glucose Meter,Continuous (FREESTYLE KERRI 3 READER) misc 1 Device four times daily. Blood-Glucose Sensor (FREESTYLE KERRI 3 SENSOR) sheba 1 Device every 2 weeks. multivitamin tablet Take 1 tablet by mouth once daily. No current facility-administered medications for this visit. Medications and allergies reviewed by this provider. SOCIAL HISTORY Social History Tobacco Use Smoking status: Never Smokeless tobacco: Never Vaping Use Vaping status: Never Used Substance Use Topics Alcohol use: No Drug use: No REVIEW OF SYSTEMS All other reviewed and negative other than HPI. OBJECTIVE: BP 136/88 Pulse 82 Resp 16 Wt 110.6 kg (243 lb 13.3 oz) LMP 03/08/2024 (Approximate) SpO2 96% BMI 37.07 kg/m? . Vital signs reviewed by this provider. APPEARANCE Well appearing, a (more content not included)... Normal [facility] Culture, Blood (WB)on 2023 CUB Blood cultures x2, f rom two different sites No growth in 5 days. Normal [facility] Comment on above: Performed By: #### L 501.8820 #### [facility] [address] [place], [address] Urine Cultureon 09-19-2024 URC Streptococcus agalac tiae (B) [place] Count 11,000-25,000 Streptococcus agalactiae (B): REACTION Ampicillin Islt BLANQUITA <=0.25 Penicillin G Islt BLANQUITA <=0.06 S cefTRIAXone Islt BLANQUITA <=0.12 S Clindamycin Islt BLANQUITA <=0.25 S Clindamycin.induced Susc Islt NEG Linezolid Islt BLANQUITA <=2 S Vancomycin Islt BLANQUITA 0.5 S Normal [facility] Comment on above: Performed By: #### L 300.3900, L500.4050, L501.5200, L500.2500, L501.9985, L100.0100, L501.9520, L500.3400, L501.2300 #### [facility] [address] [place], [place], [id number] Bedside Glucoseon 09-18-2024 FINGERSTICK GLU 176 mg/dL High 74-106 [facility] Comment on above: Result Comment: EMMA GEMENT OF PATIENT CARE PER NURSING PROTOCOL Performed By: #### L 501.8820 #### [facility] [address] [place], [place], [address] FINGERSTICK GLU 191 mg/dL High 74-106 [facility] Comment on above: Result Comment: EMMA GEMENT OF PATIENT CARE PER NURSING PROTOCOL Performed By: #### L 300.3900, L500.4050, L501.5200, L500.2500, L501.9985, L100.0100, L501.9520, L500.3400, L501.2300 #### [facility] [address] [place], [place], [address] Discharge Instructionon 09-07 Discharge Instruction [facility] Medical Records Department [address] [place] [address] Instructions for Home/Discharge Instructions 09/18/24 1056 MR#: [id number] Acct: [id number] Name: TRICE ZAMBRANO Rep #: [id number] : 1980 44 From: Jorge Frazier DO PCP: Dr. Joaquin Huitron MD Status:ADM IN Discharge Instructions Diet Discharge Diet: - (Resume home diet) Activity Discharge Activity: Return to Normal Activity Return to work on:: 09/18/24 Weight Bearing Status: Full weight bearing Follow Up Care Test Results: Test results from this visit will be discussed in further detail at your follow-up appointment, if applicable. Discharge Plan Admission Admit Date/Time: 09/16/24 16:20 Primary Reason for Your Visit: Cellulitis of the perineum Attending Provider: Jorge Frazier Primary Care Provider: Joaquin Huitron Consulting Providers: Ken Sosa; Tristin Solo; Fran Daley Discharge Orders/Prescriptions Prescriptions: New doxycycline monohydrate 100 mg Capsule 100 mg PO BID Qty: 14 0RF Rx Instructions: Take with food amoxicillin-pot clavulanate 875-125 mg Tablet 1 tab PO BID Qty: 14 0RF Rx Instructions: Take with food Continued insulin lispro [Humalog KwikPen Insulin] 100 unit/mL insulin pen 40 unit SUBCUT TID Patient Comments: INJECT 40 UNITS SUBCUTANEOULSY WITH MEALS insulin glargine [Basaglar KwikPen U-100 Insulin] 100 unit/mL (3 mL) insulin pen 60 unit SUBCUT BID Patient Comments: INJECT 40 UNITS SUBCUTANEOUSLY TWICE DAILY atorvastatin 10 mg tablet 10 mg PO QHS lisinopril 5 mg tablet 5 mg PO DAILY ropinirole 0.5 mg tablet 1.5 mg PO QHS Referrals / Follow Up: Joaquin Huitron MD [Primary Care Provider] - In 1 Week Disposition Disposition (needs filled in before D/C Order can be placed): Home, Self Care 09/18/24 1101 Jorge Freddie BLOCK CC: Dr. Ken Sosa MD; Dr. Joaquin Huitron MD; Dr. Fran Daley MD; Dr. Tristin Solo MD Signed Normal [facility] Vancomycin, Trough Levelon 11-18-2023 VANCO, TROUGH 10.3 ug/mL Normal 5.0-15.0 [facility] Comment on above: Order Comment: Comme nts: Trough to be drawn 30 mins prior to scheduled dose 0700 Result Comment: VANC OMYCIN STANDARED DRUG THERAPY TROUGH LEVEL: 5.0 - 15.0 mg/L VANCOMYCIN HIGH INTENSITY THERAPY TROUGH LEVEL: 15.0 - 20.0 mg/L High Intensity therapy recommended for serious life threatening infections include: - Meningitis -Endocarditis -Pneumonia (Ventilator/Healtcare Associated) -Sepsis PLEASE CONTACT PHARMACY SERVICES (#[id number]) FOR INTERPRETATION OF RESULTS. Performed By: #### L 501.8820 #### [facility] [address] [place], [address] Basic Metabolic Profile (BMP )on 09-17-2024 BUN/CRE 18.9 RATIO Normal - [facility] Comment on above: Performed By: #### L 300.3900, L500.4050, L501.5200, L500.2500, L501.9985, L100.0100, L501.9520, L500.3400, L501.2300 #### [facility] [address] [place], [address] CA,Total 8.3 mg/dL Low 8.5-10.1 [facility] Comment on above: Performed By: #### L 300.3900, L500.4050, L501.5200, L500.2500, L501.9985, L100.0100, L501.9520, L500.3400, L501.2300 #### [facility] [address] [place], [address] Chloride [Moles/Vol] 110 mmol/L High 98-107 [facility] Comment on above: Performed By: #### L 300.3900, L500.4050, L501.5200, L500.2500, L501.9985, L100.0100, L501.9520, L500.3400, L501.2300 #### [facility] [address] [place], [place], [phone] (045) CO2 [Moles/Vol] 24.0 mmol/L Normal 21.0-32.0 [facility] Comment on above: Performed By: #### L 300.3900, L500.4050, L501.5200, L500.2500, L501.9985, L100.0100, L501.9520, L500.3400, L501.2300 #### [facility] [address] [place], [address] Creatinine [Mass/Vol] 0.84 mg/dL Normal 0.55-1.02 [facility] Comment on above: Result Comment: The validity of the calculated GFR GFRAA in patients over 70 years has not been determined. Clinical correlation is essential. Performed By: #### L 300.3900, L500.4050, L501.5200, L500.2500, L501.9985, L100.0100, L501.9520, L500.3400, L501.2300 #### [facility] [address] [place], [address] ECRCL 98.24 ml/min Normal [facility] Comment on above: Performed By: #### L 300.3900, L500.4050, L501.5200, L500.2500, L501.9985, L100.0100, L501.9520, L500.3400, L501.2300 #### [facility] [address] [place], [place], [phone] ([phone]) EST GFR - AA 94 mL/min Normal >60 [facility] Comment on above: Result Comment: Afri can [place] GFR Calc Performed By: #### L 300.3900, L500.4050, L501.5200, L500.2500, L501.9985, L100.0100, L501.9520, L500.3400, L501.2300 #### [facility] [address] [place], [address] GAP 6 Normal 5-15 [facility] Comment on above: Performed By: #### L 300.3900, L500.4050, L501.5200, L500.2500, L501.9985, L100.0100, L501.9520, L500.3400, L501.2300 #### [facility] [address] [place], [place], [phone] (137) GFR/1.73 sq M.predicted among non-blacks MDRD (S/P/Bld) [Vol rate/Area] 78 mL/min/{1.73_m2} Normal >60 [facility] Comment on above: Result Comment: Non- GFR Calc Performed By: #### L 300.3900, L500.4050, L501.5200, L500.2500, L501.9985, L100.0100, L501.9520, L500.3400, L501.2300 #### [facility] [address] [place], [place], [phone] Glucose [Mass/Vol] 166 mg/dL High 74-106 [facility] Comment on above: Result Comment: Fast ing Glucose result greater than or equal to 126 mg/dL suggests DIABETES MELLITUS per A.D.A. criteria. Performed By: #### L 300.3900, L500.4050, L501.5200, L500.2500, L501.9985, L100.0100, L501.9520, L500.3400, L501.2300 #### [facility] [address] [place], [place], [phone] (100) Potassium [Moles/Vol] 4.0 mmol/L Normal 3.5-5.1 [facility] Comment on above: Performed By: #### L 300.3900, L500.4050, L501.5200, L500.2500, L501.9985, L100.0100, L501.9520, L500.3400, L501.2300 #### [facility] [address] [place], [place], [phone] ([phone]) Sodium [Moles/Vol] 140 mmol/L Normal 136-145 [facility] Comment on above: Performed By: #### L 300.3900, L500.4050, L501.5200, L500.2500, L501.9985, L100.0100, L501.9520, L500.3400, L501.2300 #### [facility] [address] [place], [place], [phone] Urea nitrogen [Mass/Vol] 16 mg/dL Normal 7-18 [facility] Comment on above: Performed By: #### L 300.3900, L500.4050, L501.5200, L500.2500, L501.9985, L100.0100, L501.9520, L500.3400, L501.2300 #### [facility] [address] [place], [place], [phone] Bedside Glucoseon 09-17-2024 FINGERSTICK GLU 246 mg/dL High 74-106 [facility] Comment on above: Result Comment: EMMA GEMENT OF PATIENT CARE PER NURSING PROTOCOL Performed By: #### L 501.080 #### [facility] [address] [facility] [address] FINGERSTICK GLU 106 mg/dL Normal 74-106 [facility] Comment on above: Result Comment: EMMA GEMENT OF PATIENT CARE PER NURSING PROTOCOL Performed By: #### L 501.8820 #### [facility] [address] [place] [address] FINGERSTICK GLU 102 mg/dL Normal 74-106 [facility] Comment on above: Result Comment: EMMA GEMENT OF PATIENT CARE PER NURSING PROTOCOL Performed By: #### L 501.080 #### [facility] [address] [place] [address] FINGERSTICK GLU 102 mg/dL Normal 74-106 [facility] Comment on above: Result Comment: EMMA GEMENT OF PATIENT CARE PER NURSING PROTOCOL Performed By: #### L 300.3900, L500.4050, L501.5200, L500.2500, L501.9985, L100.0100, L501.9520, L500.3400, L501.2300 #### [facility] [address] [place] [address] FINGERSTICK GLU 160 mg/dL High 74-106 [facility] Comment on above: Result Comment: EMMA GEMENT OF PATIENT CARE PER NURSING PROTOCOL Performed By: #### L 300.3900, L500.4050, L501.5200, L500.2500, L501.9985, L100.0100, L501.9520, L500.3400, L501.2300 #### [facility] [address] [facility] [address] FINGERSTICK GLU 162 mg/dL High 74-106 [facility] Comment on above: Result Comment: EMMA GEMENT OF PATIENT CARE PER NURSING PROTOCOL Performed By: #### L 300.3900, L500.4050, L501.5200, L500.2500, L501.9985, L100.0100, L501.9520, L500.3400, L501.2300 #### [facility] [address] [place], [place], [phone] ([phone] CBC W/Diff, Automatedon 11-1 Absolute Lymph 1.60 X10 3/uL Normal 0.83-4.51 [facility] Comment on above: Performed By: #### L 300.3900, L500.4050, L501.5200, L500.2500, L501.9985, L100.0100, L501.9520, L500.3400, L501.2300 #### [facility] [address] [place], [address] (157 Absolute Neut 4.3 X10 3/uL Normal 2.0-7.7 [facility] Comment on above: Performed By: #### L 300.3900, L500.4050, L501.5200, L500.2500, L501.9985, L100.0100, L501.9520, L500.3400, L501.2300 #### [facility] [address], [address] Basophils/100 WBC (Bld) 0.5 % Normal 0-1 [facility] Comment on above: Performed By: #### L 300.3900, L500.4050, L501.5200, L500.2500, L501.9985, L100.0100, L501.9520, L500.3400, L501.2300 #### [facility] [address] [place], [address] Eosinophils/100 WBC (Bld) 1.1 % Normal 0-5 [facility] Comment on above: Performed By: #### L 300.3900, L500.4050, L501.5200, L500.2500, L501.9985, L100.0100, L501.9520, L500.3400, L501.2300 #### [facility] [address] [place], [address] Erythrocyte distribution width (RBC) [Ratio] 13.0 % Normal 11.6-14.6 [facility] Comment on above: Performed By: #### L 300.3900, L500.4050, L501.5200, L500.2500, L501.9985, L100.0100, L501.9520, L500.3400, L501.2300 #### [facility] [address], [address] (305) Hematocrit (Bld) [Volume fraction] 38.0 % Normal 37-47 [facility] Comment on above: Performed By: #### L 300.3900, L500.4050, L501.5200, L500.2500, L501.9985, L100.0100, L501.9520, L500.3400, L501.2300 #### [facility] [address] [place], [address] Hemoglobin (Bld) [Mass/Vol] 12.5 g/dL Normal 12.0-15.0 [facility] Comment on above: Performed By: #### L 300.3900, L500.4050, L501.5200, L500.2500, L501.9985, L100.0100, L501.9520, L500.3400, L501.2300 #### [facility] [address] [facility] [facility], [address] IG% 0.500 Normal 0.0-0.9 [facility] Comment on above: Result Comment: IG% - Immature Granulocytes (promyelocytes, myelocytes and metamyelocytes) > 1% indicates that a LEFT SHIFT is Present. Performed By: #### L 300.3900, L500.4050, L501.5200, L500.2500, L501.9985, L100.0100, L501.9520, L500.3400, L501.2300 #### [facility] [address] [place], [address] Lymphocytes/100 WBC (Bld) 24.3 % Normal 19-41 [facility] Comment on above: Performed By: #### L 300.3900, L500.4050, L501.5200, L500.2500, L501.9985, L100.0100, L501.9520, L500.3400, L501.2300 #### [facility] [address] [place], [address] MCH (RBC) [Entitic mass] 29.2 pg Normal 27.0-32.0 [facility] Comment on above: Performed By: #### L 300.3900, L500.4050, L501.5200, L500.2500, L501.9985, L100.0100, L501.9520, L500.3400, L501.2300 #### [facility] [address] [place], [address] MCHC (RBC) [Mass/Vol] 32.9 g/dL Normal 32-36 [facility] Comment on above: Performed By: #### L 300.3900, L500.4050, L501.5200, L500.2500, L501.9985, L100.0100, L501.9520, L500.3400, L501.2300 #### [facility] [address] [place], [address] MCV (RBC) [Entitic vol] 88.8 fL Normal 81-99 [facility] Comment on above: Performed By: #### L 300.3900, L500.4050, L501.5200, L500.2500, L501.9985, L100.0100, L501.9520, L500.3400, L501.2300 #### [facility] [address] [place], [address] Monocytes/100 WBC (Bld) 7.8 % Normal 0-10 [facility] Comment on above: Performed By: #### L 300.3900, L500.4050, L501.5200, L500.2500, L501.9985, L100.0100, L501.9520, L500.3400, L501.2300 #### [facility] [address] [place], [address] Neutrophils/100 WBC (Bld) 65.8 % Normal 47-70 [facility] Comment on above: Performed By: #### L 300.3900, L500.4050, L501.5200, L500.2500, L501.9985, L100.0100, L501.9520, L500.3400, L501.2300 #### [facility] [address] [place], [address] (143 Nucleated RBC (Bld) [#/Vol] 0 10*3/uL Normal 0-5 [facility] Comment on above: Performed By: #### L 300.3900, L500.4050, L501.5200, L500.2500, L501.9985, L100.0100, L501.9520, L500.3400, L501.2300 #### [facility] [address] [place], [address] Platelet mean volume (Bld) [Entitic vol] 11.9 fL Normal 6.2-12.0 [facility] Comment on above: Performed By: #### L 300.3900, L500.4050, L501.5200, L500.2500, L501.9985, L100.0100, L501.9520, L500.3400, L501.2300 #### [facility] [address] [place], [address] Platelets (Bld) [#/Vol] 200 10*3/uL Normal 150-450 [facility] Comment on above: Performed By: #### L 300.3900, L500.4050, L501.5200, L500.2500, L501.9985, L100.0100, L501.9520, L500.3400, L501.2300 #### [facility] [address] [place], [address] RBC (Bld) [#/Vol] 4.28 10*6/uL Normal 4.2-5.4 [facility] Comment on above: Performed By: #### L 300.3900, L500.4050, L501.5200, L500.2500, L501.9985, L100.0100, L501.9520, L500.3400, L501.2300 #### [facility] [address] [place], [place], [phone] (140) RDW SD 42.2 fl Normal 35.1-43.9 [facility] Comment on above: Performed By: #### L 300.3900, L500.4050, L501.5200, L500.2500, L501.9985, L100.0100, L501.9520, L500.3400, L501.2300 #### [facility] [address] [place], [address] WBC (Bld) [#/Vol] 6.6 10*3/uL Normal 4.4-11.0 [facility] Comment on above: Performed By: #### L 300.3900, L500.4050, L501.5200, L500.2500, L501.9985, L100.0100, L501.9520, L500.3400, L501.2300 #### [facility] [address] [place], [address] Comprehensive Metabolic Prof ilon 09-17-2024 Albumin/Globulin [Mass ratio] 1.0 {ratio} Normal 0.9-2.4 [facility] Comment on above: Performed By: #### L 300.3900, L500.4050, L501.5200, L500.2500, L501.9985, L100.0100, L501.9520, L500.3400, L501.2300 #### [facility] [address] [place], [address] Consultation - Infectious Dx on 09-17-2024 Consultation - Infectious Dx [facility] Medical Records Department [address] [place] [address] Consultation - Infectious Dx 09/17/24 1336 MR#: [id number] Acct: [id number] Name: TRICE ZAMBRANO Rep #: [id number] : 1980 44 From: Fran Daley MD PCP: Dr. Joaquin Huitron MD Status:ADM IN Location: [place] [address] Assessment Plan Assessment/Plan (1) Abscess or cellulitis of perineum: PLAN: Improving, cont empiric vanc/zosyn, plan on home soon with po abx. CT with ? fistula, surgery following. Will follow, thank you HPI Consult Data Date of Consult: 09/17/24 HPI Narrative Reason for Consultation: skin infection HPI Narrative: TRICE ZAMBRANO, is a 44 F with h/o DM and perineal infection complicated by necrotizing fasciitis in 2020, presented with several days L gluteal pain, redness, swelling. Able to get some drainage out at home, but sx worsened, had chills. Came to ED, admitted on vanc/zosyn, feeling better today. Full ROS performed and neg except as noted above. [facility] Medical History Physical exam, pre-employment History of necrotising fasciitis Current use of insulin Diabetes Home Medications ???Medication ???Instructions ???Recorded ???Last Taken ???Type insulin glargine 100 unit/mL (3 60 unit subcut BID 04/23/21 09/16/24 History mL) subcutaneous pen (Basaglar KwikPen U-100 Insulin) insulin lispro 100 unit/mL 40 unit subcut TID 04/23/21 09/16/24 History subcutaneous pen (Humalog KwikPen (U-100) Insulin) atorvastatin 10 mg tablet 10 mg PO QHS 09/14/21 09/15/24 History lisinopril 5 mg tablet 5 mg PO DAILY 09/14/21 09/15/24 History ropinirole 0.5 mg tablet 1.5 mg PO QHS 09/16/24 09/15/24 History Allergy/AdvReac Type Severity Reaction Status Date / Time metformin AdvReac Nausea Verified 09/16/24 11:18 Family History Other Breast cancer Diabetes Surgical History History of cholecystectomy History of colostomy reversal History of colostomy S/P tubal ligation H/O: Social History adopted: No household members: spouse and children housing: house number of children: 2 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 pets and animals: No leisure activities: art, games and volunteer work history of recent travel: No sexually active: Yes Smoking Status: Never smoker Physical Exam Const alert, oriented x3 and no apparent distress General Appearance: cooperative HEENT normocephalic and head/scalp atraumatic Eyes PERRL and EOMs intact bilaterally Neck supple and No nodes Resp normal air movement and clear to auscultation bilaterally Cardio regular rate and regular rhythm GI soft to palpation, non-tender and non-distended Extremity General Extremity: Negative for edema Skin Skin Narrative: L juliet-rectal area, minimal induration/tenderness, no drainage Neuro CN's II-XII intact bilaterally Lab / Micro Data Attestation: I reviewed the patient's lab results. 09/17/24 06:20 09/17/24 06:20 Labs: Laboratory Results - last 24 hr 09/16/24 18:20: POC Glucose 371 H 09/16/24 21:05: POC Glucose 359 H 09/17/24 06:20: WBC 6.6, RBC 4.28, Hgb 12.5, Hct 38.0, MCV 88.8, MCH 29.2, MCHC 32.9, RDW Std Deviation 42.2, RDW Coeff of Meet 13.0, Plt Count 200, MPV 11.9, Immature Gran % (Auto) 0.500, Neut % (Auto) 65.8, Lymph % (Auto) 24.3, Griggs % (Auto) 7.8, Eos % (Auto) 1.1, Baso % (Auto) 0.5, Absolute Neuts (auto) 4.3, Absolute Lymphs (auto) 1.60, Nucleated RBC % 0, PT 13.2, INR 1.0, Sodium 140, Potassium 4.0, Chloride 110 H, Carbon Dioxide 24.0, Anion Gap 6, BUN 16, Creatinine 0.84, Estim Creat Clear Calc 98.24, Est GFR (MDRD) Af Amer 94, Est GFR (MDRD) Non-Af 78, BUN/Creatinine Ratio 18.9, Glucose 166 H, Hemoglobin A1c 12.7 H, Calcium 8.3 L, Phosphorus 3.7, Magnesium 1.9, Total Bilirubin 0.40, Direct Bilirubin 0.09, AST 18, ALT 30, Alkaline Phosphatase 68, Total Protein 5.9 L, Albumin 2.9 L, Globulin 3.0, Albumin/Globulin Ratio 1.0, TSH 1.450 09/17/24 07:27: POC Glucose 162 H 09/17/24 11:05: POC Glucose 160 H Micro: Microbiology 09/16/24 12:35 Urine, Clean Catch Urine Culture - Preliminary Beta streptococcus Imaging Radiology Impression Pelvis CT 09/16/24 12:11 IMPRESSION: 1. 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 No drainable abscess. 2. Umbilical hernia containing fat. 3. Fibroid uterus. 4. 17 mm stable cyst of the left ovary. 5. There are areas of fibrosis in the perianal location. No evidence for drainable abscess. Electronically Signed: Shirley Hunter (more content not included)... Normal [facility] Consultation - Surgicalon Consultation - Surgical [facility] Medical Records Department [address] [place] [address] Consultation - Surgical 09/17/24 0914 MR#: [id number] Acct: [id number] Name: KENYATRICE Maldonado Rep #: [id number] : 1980 44 From: Grace JOE PA-C PCP: Dr. Joaquin Huitron MD Status:ADM IN Location: MS3 HA287-2 Assessment Plan Assessment/Plan (1) Abscess or cellulitis of perineum: PLAN: I have been consulted in conjunction with Dr. Solo. He has independently evaluate this patient. Patient is a 44 y/o F who presents with pain in the gluteal fold secondary to cellulitis. Patient with history of necrotizing fasciitis in 2020/2021. No drainable abscess is noted on examination or on CT imaging of the pelvis. 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 We have discussed the plan to continue with IV antibiotics at this time with the patient. No surgical intervention is being recommended at this time. Patient is aware that if conservative measures fail, surgical intervention may be needed. She is agreeable with the plan of IV antibiotics and conservative measures at this time. Patient has had the opportunity to ask and have questions answered. Patient verbally understands and agrees with the plan. Patient has been discussed with the hospitalist. Thank you for allowing us to participate in this patient's care. HPI Consult Data Date of Consult: 09/17/24 HPI Narrative Reason for Consultation: left gluteal abscess HPI Narrative: TRICE ZAMBRANO, is a 44 F who presents with a 2 day history of increasing pain in the left gluteal fold. She notes a previous history of necrotizing fasciitis of the perineum. She notes this occurred in . She states the abscess started similar to the current abscess. She notes Dr. Brice opened the abscess in 2020 and she was placed on oral antibiotics and was sent home. Patient states her blood sugars were out of control and she was not improving from opening the abscess. She states she returned to [facility] and was admitted to ICU. She was transferred to [facility] and in ICU for several days. She notes she underwent a large debridement and colostomy due to stool incontinence. She notes her ostomy was reversed. She has been having normal bowel function without any constipation or diarrhea. She states when this current pain started she noted her blood sugars were elevated. She notes within 24 hours the small pimple-like structure elongated in size and went into the perineum. She presented to the ED for treatment. She notes since being on IV antibiotics the pain has improved. She notes only tenderness is with palpation. She describes the tenderness as pressure. She notes a small amount of bloody/white drainage has been expressed. 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 No drainable abscess. Umbilical hernia containing fat. Fibroid uterus. 17 mm stable cyst of the left ovary. There are areas of fibrosis in the perianal location. No evidence for drainable abscess. Admitting WBC is 7.4, Hgb 13.9, Hct 41.3, Plt 198. Lactic acid 1.0. Glucose 319--> 166. [facility] Medical History Physical exam, pre-employment History of necrotising fasciitis Current use of insulin Diabetes Home Medications ???Medication ???Instructions ???Recorded ???Last Taken ???Type insulin glargine 100 unit/mL (3 60 unit subcut BID 04/23/21 09/16/24 History mL) subcutaneous pen (Basaglar KwikPen U-100 Insulin) insulin lispro 100 unit/mL 40 unit subcut TID 04/23/21 09/16/24 History subcutaneous pen (Humalog KwikPen (U-100) Insulin) atorvastatin 10 mg tablet 10 mg PO QHS 09/14/21 09/15/24 History lisinopril 5 mg tablet 5 mg PO DAILY 09/14/21 09/15/24 History ropinirole 0.5 mg tablet 1.5 mg PO QHS 09/16/24 09/15/24 History Allergy/AdvReac Type Severity Reaction Status Date / Time metformin AdvReac Nausea Verified 09/16/24 11:18 Family History Other Breast cancer Diabetes Surgical History History of cholecystectomy History of colostomy reversal History of colostomy S/P tubal ligation H/O: Social History adopted: No household members: spouse and children housing: house number of children: 2 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 Normal [facility] Hemoglobin A1con 09-17-2024 HbA1c (Bld) [Mass fraction] 12.7 % High 3.8-5.6 [facility] Comment on above: Result Comment: Norm al < 5.7 % Prediabetic 5.7 - 6.4 % Diabetic >or= 6.5 % Please note range changes. Performed By: #### L 501.080 #### [facility] [address] [place], [address] Liver Profileon 09-17-2024 Albumin [Mass/Vol] 2.9 g/dL Low 3.2-5.0 [facility] Comment on above: Performed By: #### L 300.3900, L500.4050, L501.5200, L500.2500, L501.9985, L100.0100, L501.9520, L500.3400, L501.2300 #### [facility] [address] [place], [address] ALK P 68 U/L Normal 45-117 [facility] Comment on above: Performed By: #### L 300.3900, L500.4050, L501.5200, L500.2500, L501.9985, L100.0100, L501.9520, L500.3400, L501.2300 #### [facility] [address] [place], [address] ALT [Catalytic activity/Vol] 30 U/L Normal 13-56 [facility] Comment on above: Performed By: #### L 300.3900, L500.4050, L501.5200, L500.2500, L501.9985, L100.0100, L501.9520, L500.3400, L501.2300 #### [facility] [address] [place], [address] AST [Catalytic activity/Vol] 18 U/L Normal 15-37 [facility] Comment on above: Performed By: #### L 300.3900, L500.4050, L501.5200, L500.2500, L501.9985, L100.0100, L501.9520, L500.3400, L501.2300 #### [facility] [address] [place], [address] (020) Bilirubin [Mass/Vol] 0.40 mg/dL Normal 0.20-1.00 [facility] Comment on above: Result Comment: For patients on eltrombopag therapy, use of Dimension [place] TBIL is not recommended. Performed By: #### L 300.3900, L500.4050, L501.5200, L500.2500, L501.9985, L100.0100, L501.9520, L500.3400, L501.2300 #### [facility] [address] [place], [address] (388) Bilirubin.direct [Mass/Vol] 0.09 mg/dL Normal 0.00-0.30 [facility] Comment on above: Performed By: #### L 300.3900, L500.4050, L501.5200, L500.2500, L501.9985, L100.0100, L501.9520, L500.3400, L501.2300 #### [facility] [address] [place], [address] (122) Globulin (S) [Mass/Vol] 3.0 g/dL Normal 2.2-4.2 [facility] Comment on above: Performed By: #### L 300.3900, L500.4050, L501.5200, L500.2500, L501.9985, L100.0100, L501.9520, L500.3400, L501.2300 #### [facility] [address] [place], [address] T PROT 5.9 g/dL Low 6.4-8.2 [facility] Comment on above: Performed By: #### L 300.3900, L500.4050, L501.5200, L500.2500, L501.9985, L100.0100, L501.9520, L500.3400, L501.2300 #### [facility] [address] [place], [address] Magnesiumon 09-17-2024 Magnesium [Mass/Vol] 1.9 mg/dL Normal 1.6-2.6 [facility] Comment on above: Performed By: #### L 300.3900, L500.4050, L501.5200, L500.2500, L501.9985, L100.0100, L501.9520, L500.3400, L501.2300 #### [facility] [address] [place], [address] Phosphoruson 09-17-2024 Phosphate [Mass/Vol] 3.7 mg/dL Normal 2.5-4.9 [facility] Comment on above: Performed By: #### L 300.3900, L500.4050, L501.5200, L500.2500, L501.9985, L100.0100, L501.9520, L500.3400, L501.2300 #### [facility] [address] [place], [place], [id number] Prothrombin Time w/INRon INR Coag (PPP) [Relative time] 1.0 {INR} Normal [facility] Comment on above: Performed By: #### L 300.3900, L500.4050, L501.5200, L500.2500, L501.9985, L100.0100, L501.9520, L500.3400, L501.2300 #### [facility] [address] [place], [address] (728) PT Coag (PPP) [Time] 13.2 s Normal 11.7-14.9 [facility] Comment on above: Performed By: #### L 300.3900, L500.4050, L501.5200, L500.2500, L501.9985, L100.0100, L501.9520, L500.3400, L501.2300 #### [facility] [address] [place], [address] Thyroid Stim Hormone (TSH)on 09-17-2024 TSH 1.450 uIU/mL Normal 0.358-3.740 [facility] Comment on above: Performed By: #### L 501.080 #### [facility] [address] [place], [address] Bedside Glucoseon 09-16-2024 FINGERSTICK GLU 359 mg/dL High 74-106 [facility] Comment on above: Result Comment: EMMA GEMENT OF PATIENT CARE PER NURSING PROTOCOL Performed By: #### L 300.3900, L500.4050, L501.5200, L500.2500, L501.9985, L100.0100, L501.9520, L500.3400, L501.2300 #### [facility] [address] [place], [address] FINGERSTICK GLU 371 mg/dL High 74-106 [facility] Comment on above: Result Comment: EMMA GEMENT OF PATIENT CARE PER NURSING PROTOCOL Performed By: #### L 501.8820 #### [facility] [address] [place], [address] CBC W/Diff, Automatedon 09-07 Absolute Lymph 1.60 X10 3/uL Normal 0.83-4.51 [facility] Comment on above: Performed By: #### L 300.3900, L500.4050, L501.5200, L500.2500, L501.9985, L100.0100, L501.9520, L500.3400, L501.2300 #### [facility] [address] [place], [address] Absolute Neut 5.1 X10 3/uL Normal 2.0-7.7 [facility] Comment on above: Performed By: #### L 300.3900, L500.4050, L501.5200, L500.2500, L501.9985, L100.0100, L501.9520, L500.3400, L501.2300 #### [facility] [address] [place], [address] Basophils/100 WBC (Bld) 0.5 % Normal 0-1 [facility] Comment on above: Performed By: #### L 300.3900, L500.4050, L501.5200, L500.2500, L501.9985, L100.0100, L501.9520, L500.3400, L501.2300 #### [facility] [address] [place], [address] Eosinophils/100 WBC (Bld) 0.8 % Normal 0-5 [facility] Comment on above: Performed By: #### L 300.3900, L500.4050, L501.5200, L500.2500, L501.9985, L100.0100, L501.9520, L500.3400, L501.2300 #### [facility] [address] [place], [address] Erythrocyte distribution width (RBC) [Ratio] 12.8 % Normal 11.6-14.6 [facility] Comment on above: Performed By: #### L 300.3900, L500.4050, L501.5200, L500.2500, L501.9985, L100.0100, L501.9520, L500.3400, L501.2300 #### [facility] [address] [place], [address] Hematocrit (Bld) [Volume fraction] 41.3 % Normal 37-47 [facility] Comment on above: Performed By: #### L 300.3900, L500.4050, L501.5200, L500.2500, L501.9985, L100.0100, L501.9520, L500.3400, L501.2300 #### [facility] [address] [place], [address] (550) Hemoglobin (Bld) [Mass/Vol] 13.9 g/dL Normal 12.0-15.0 [facility] Comment on above: Performed By: #### L 300.3900, L500.4050, L501.5200, L500.2500, L501.9985, L100.0100, L501.9520, L500.3400, L501.2300 #### [facility] [address] [place], [address] IG% 0.400 Normal 0.0-0.9 [facility] Comment on above: Result Comment: IG% - Immature Granulocytes (promyelocytes, myelocytes and metamyelocytes) > 1% indicates that a LEFT SHIFT is Present. Performed By: #### L 300.3900, L500.4050, L501.5200, L500.2500, L501.9985, L100.0100, L501.9520, L500.3400, L501.2300 #### [facility] [address] [place], [address] (769 Lymphocytes/100 WBC (Bld) 21.7 % Normal 19-41 [facility] Comment on above: Performed By: #### L 300.3900, L500.4050, L501.5200, L500.2500, L501.9985, L100.0100, L501.9520, L500.3400, L501.2300 #### [facility] [address] [place], [address] MCH (RBC) [Entitic mass] 29.2 pg Normal 27.0-32.0 [facility] Comment on above: Performed By: #### L 300.3900, L500.4050, L501.5200, L500.2500, L501.9985, L100.0100, L501.9520, L500.3400, L501.2300 #### [facility] [address] [place], [address] MCHC (RBC) [Mass/Vol] 33.7 g/dL Normal 32-36 [facility] Comment on above: Performed By: #### L 300.3900, L500.4050, L501.5200, L500.2500, L501.9985, L100.0100, L501.9520, L500.3400, L501.2300 #### [facility] [address] [place], [address] MCV (RBC) [Entitic vol] 86.8 fL Normal 81-99 [facility] Comment on above: Performed By: #### L 300.3900, L500.4050, L501.5200, L500.2500, L501.9985, L100.0100, L501.9520, L500.3400, L501.2300 #### [facility] [address] [place], [address] Monocytes/100 WBC (Bld) 7.7 % Normal 0-10 [facility] Comment on above: Performed By: #### L 300.3900, L500.4050, L501.5200, L500.2500, L501.9985, L100.0100, L501.9520, L500.3400, L501.2300 #### [facility] [address] [place], [address] Neutrophils/100 WBC (Bld) 68.9 % Normal 47-70 [facility] Comment on above: Performed By: #### L 300.3900, L500.4050, L501.5200, L500.2500, L501.9985, L100.0100, L501.9520, L500.3400, L501.2300 #### [facility] [address] [place], [address] Nucleated RBC (Bld) [#/Vol] 0 10*3/uL Normal 0-5 [facility] Comment on above: Performed By: #### L 300.3900, L500.4050, L501.5200, L500.2500, L501.9985, L100.0100, L501.9520, L500.3400, L501.2300 #### [facility] [address] [place], [address] Platelet mean volume (Bld) [Entitic vol] 12.1 fL High 6.2-12.0 [facility] Comment on above: Performed By: #### L 300.3900, L500.4050, L501.5200, L500.2500, L501.9985, L100.0100, L501.9520, L500.3400, L501.2300 #### [facility] [address] [place], [address] Platelets (Bld) [#/Vol] 198 10*3/uL Normal 150-450 [facility] Comment on above: Performed By: #### L 300.3900, L500.4050, L501.5200, L500.2500, L501.9985, L100.0100, L501.9520, L500.3400, L501.2300 #### [facility] [address] [place], [address] RBC (Bld) [#/Vol] 4.76 10*6/uL Normal 4.2-5.4 [facility] Comment on above: Performed By: #### L 300.3900, L500.4050, L501.5200, L500.2500, L501.9985, L100.0100, L501.9520, L500.3400, L501.2300 #### [facility] [address] [place], [place], [id number] RDW SD 40.1 fl Normal 35.1-43.9 [facility] Comment on above: Performed By: #### L 300.3900, L500.4050, L501.5200, L500.2500, L501.9985, L100.0100, L501.9520, L500.3400, L501.2300 #### [facility] [address] [place], [place], [id number] WBC (Bld) [#/Vol] 7.4 10*3/uL Normal 4.4-11.0 [facility] Comment on above: Performed By: #### L 300.3900, L500.4050, L501.5200, L500.2500, L501.9985, L100.0100, L501.9520, L500.3400, L501.2300 #### [facility] [address] [place], [address] CNOVon 09-16-2024 CNOV Office Visit (UCWSTR ) -------- TRICE ZAMBRANO ([id number]) 1980 F Date Time Provider Department 09/16/24 10:15 AM RONY CHÁVEZ [facility] During your visit today, we recorded the following information about you: Temperature Pulse Respiration Blood pressure 98.6 degrees 95/minute 21/minute 130/80 Weight 109.9 kg Rony Chávez APRN.CNP 09/16/2024 11:03 AM Signed Patient came in with possible perineal abscess. Patient has had them before. Patient has had necrotizing fasciitis in that area previously. This caused her to be in ICU and have significant medical complications from it. Due to risk factors patient is being sent to the emergency room where lab work can be collected and the proper treatment can be given. Patient was understandable and will take her self now Allergies As of Date: 09/16/2024 Noted Allergy Reaction METFORMIN 08/26/2015 6 - Diarrhea Comments: Occurred while on XR formulation TRULICITY (DULAGLUTIDE) 03/11/2016 11 - Vomiting Comments: Nausea/vomiting, diarrhea and epigastric pain. Date Reviewed: 09/16/2024 Reviewed by: Melinda Powers MA - Fully Assessed Reason for Visit: Derm Problem [33] Cmt: Abscess/perianal cyst x 1 day Primary Visit Diagnosis:Infection [B99.9] Prescriptions as of 09/16/2024 - Insulin Olivet, Disposable, (BD ULTRA-FINE VINOD PEN NEEDLE) 32 gauge x 5/32 Inject 100 Each subcutaneously four times daily. - insulin lispro (HUMALOG KWIKPEN) 100 unit/mL Inject 40 Units subcutaneously three times a day before meals. - rOPINIRole (REQUIP) 0.5 mg tablet Take 3 tablets by mouth daily at bedtime. - atorvastatin (LIPITOR) 10 mg tablet Take 1 tablet by mouth daily at bedtime. For cholesterol. - lisinopril (ZESTRIL) 5 mg tablet Take 1 tablet by mouth once daily. - Lancets (ACCU-CHEK SOFTCLIX LANCETS) Test blood sugar(s) 4 times daily and as needed. Dx: 250.02. Insulin: Yes - Blood-Glucose Meter (ACCU-CHEK KENNY PLUS METER) Test glucose twice daily, 250.02. Insulin yes. - Insulin Olivet, Disposable, (BD ULTRA-FINE VINOD PEN NEEDLE) 32 gauge x 5/32 Use one needle for each dose. 5/day. - blood sugar diagnostic (ONETOUCH VERIO TEST STRIPS) test strip Test blood sugar(s) 4 times daily. Dx: Type 2 DM - Controlled E11.9 Insulin: Yes - insulin degludec (TRESIBA FLEXTOUCH U-100) 100 unit/mL (3 mL) injection pen Inject 60 Units subcutaneously two times a day. - Blood-Glucose Meter,Continuous (FREESTYLE KERRI 3 READER) misc 1 Device four times daily. - Blood-Glucose Sensor (FREESTYLE KERRI 3 SENSOR) sheba 1 Device every 2 weeks. - multivitamin tablet Take 1 tablet by mouth once daily. Problem List As Of Date 09/16/2024 Noted Resolved Diabetes mellitus type 2, uncontrolled, without*03/09/2012 Peripheral polyneuropathy (HCC) [G62.9] 08/26/2015 Type 2 diabetes mellitus with hyperglycemia, wi* Obesity (BMI 30-39.9) [E66.9] Hyperlipidemia [E78.5] Ventral hernia [K43.9] 04/22/2022 RLS (restless legs syndrome) [G25.81] 04/24/2022 Encounter Status:Closed by RONY CHÁVEZ on 09/16/24 Normal [facility] Metabolic Prof tracie 09-16-2024 Albumin [Mass/Vol] 3.3 g/dL Normal 3.2-5.0 [facility] Comment on above: Performed By: #### L 300.3900, L500.4050, L501.5200, L500.2500, L501.9985, L100.0100, L501.9520, L500.3400, L501.2300 #### [facility] [address] [place], [address] Albumin/Globulin [Mass ratio] 0.9 {ratio} Normal 0.9-2.4 [facility] Comment on above: Performed By: #### L 300.3900, L500.4050, L501.5200, L500.2500, L501.9985, L100.0100, L501.9520, L500.3400, L501.2300 #### [facility] [address] [place], [address] ALK P 84 U/L Normal 45-117 [facility] Comment on above: Performed By: #### L 300.3900, L500.4050, L501.5200, L500.2500, L501.9985, L100.0100, L501.9520, L500.3400, L501.2300 #### [facility] [address] [place], [address] ALT [Catalytic activity/Vol] 26 U/L Normal 13-56 [facility] Comment on above: Performed By: #### L 300.3900, L500.4050, L501.5200, L500.2500, L501.9985, L100.0100, L501.9520, L500.3400, L501.2300 #### [facility] [address] [place], [address] AST [Catalytic activity/Vol] 16 U/L Normal 15-37 [facility] Comment on above: Performed By: #### L 300.3900, L500.4050, L501.5200, L500.2500, L501.9985, L100.0100, L501.9520, L500.3400, L501.2300 #### [facility] [address] [place], [address] Bilirubin [Mass/Vol] 0.30 mg/dL Normal 0.20-1.00 [facility] Comment on above: Result Comment: For patients on eltrombopag therapy, use of Dimension [place] TBIL is not recommended. Performed By: #### L 300.3900, L500.4050, L501.5200, L500.2500, L501.9985, L100.0100, L501.9520, L500.3400, L501.2300 #### [facility] [address] [place], [address] BUN/CRE 19.2 RATIO Normal 10-20 [facility] Comment on above: Performed By: #### L 300.3900, L500.4050, L501.5200, L500.2500, L501.9985, L100.0100, L501.9520, L500.3400, L501.2300 #### [facility] [address] [place], [address] CA,Total 9.0 mg/dL Normal 8.5-10.1 [facility] Comment on above: Performed By: #### L 300.3900, L500.4050, L501.5200, L500.2500, L501.9985, L100.0100, L501.9520, L500.3400, L501.2300 #### [facility] [address] [place], [address] Chloride [Moles/Vol] 106 mmol/L Normal 98-107 [facility] Comment on above: Performed By: #### L 300.3900, L500.4050, L501.5200, L500.2500, L501.9985, L100.0100, L501.9520, L500.3400, L501.2300 #### [facility] [address] [place], [address] CO2 [Moles/Vol] 25.0 mmol/L Normal 21.0-32.0 [facility] Comment on above: Performed By: #### L 300.3900, L500.4050, L501.5200, L500.2500, L501.9985, L100.0100, L501.9520, L500.3400, L501.2300 #### [facility] [address] [place], [address] Creatinine [Mass/Vol] 0.99 mg/dL Normal 0.55-1.02 [facility] Comment on above: Result Comment: The validity of the calculated GFR GFRAA in patients over 70 years has not been determined. Clinical correlation is essential. Performed By: #### L 300.3900, L500.4050, L501.5200, L500.2500, L501.9985, L100.0100, L501.9520, L500.3400, L501.2300 #### [facility] [address] [place] [phone]) ECRCL 93.74 ml/min Normal [facility] Comment on above: Performed By: #### L 300.3900, L500.4050, L501.5200, L500.2500, L501.9985, L100.0100, L501.9520, L500.3400, L501.2300 #### [facility] [address] [place], [place], [phone] ([phone]) EST GFR - AA 78 mL/min Normal >60 [facility] Comment on above: Result Comment: Afri can [place] GFR Calc Performed By: #### L 300.3900, L500.4050, L501.5200, L500.2500, L501.9985, L100.0100, L501.9520, L500.3400, L501.2300 #### [facility] [address] [place], [place], [id number] GAP 6 Normal 5-15 [facility] Comment on above: Performed By: #### L 300.3900, L500.4050, L501.5200, L500.2500, L501.9985, L100.0100, L501.9520, L500.3400, L501.2300 #### [facility] [address] [place], [address] GFR/1.73 sq M.predicted among non-blacks MDRD (S/P/Bld) [Vol rate/Area] 65 mL/min/{1.73_m2} Normal >60 [facility] Comment on above: Result Comment: Non- GFR Calc Performed By: #### L 300.3900, L500.4050, L501.5200, L500.2500, L501.9985, L100.0100, L501.9520, L500.3400, L501.2300 #### [facility] [address] [place], [address] ([phone]) Globulin (S) [Mass/Vol] 3.5 g/dL Normal 2.2-4.2 [facility] Comment on above: Performed By: #### L 300.3900, L500.4050, L501.5200, L500.2500, L501.9985, L100.0100, L501.9520, L500.3400, L501.2300 #### [facility] [address] [place], [address] Glucose [Mass/Vol] 319 mg/dL High 74-106 [facility] Comment on above: Result Comment: Gluc ose result greater than or equal to 200 mg/dL suggests DIABETES MELLITUS per A.D.A. criteria. Performed By: #### L 300.3900, L500.4050, L501.5200, L500.2500, L501.9985, L100.0100, L501.9520, L500.3400, L501.2300 #### [facility] [address] [place], [address] Potassium [Moles/Vol] 4.3 mmol/L Normal 3.5-5.1 [facility] Comment on above: Performed By: #### L 300.3900, L500.4050, L501.5200, L500.2500, L501.9985, L100.0100, L501.9520, L500.3400, L501.2300 #### [facility] [address] [place], [address] Sodium [Moles/Vol] 136 mmol/L Normal 136-145 [facility] Comment on above: Performed By: #### L 300.3900, L500.4050, L501.5200, L500.2500, L501.9985, L100.0100, L501.9520, L500.3400, L501.2300 #### [facility] [address] [place], [address] T PROT 6.8 g/dL Normal 6.4-8.2 [facility] Comment on above: Performed By: #### L 300.3900, L500.4050, L501.5200, L500.2500, L501.9985, L100.0100, L501.9520, L500.3400, L501.2300 #### [facility] [address] [place], [place], [address] Urea nitrogen [Mass/Vol] 19 mg/dL High 7-18 [facility] Comment on above: Performed By: #### L 300.3900, L500.4050, L501.5200, L500.2500, L501.9985, L100.0100, L501.9520, L500.3400, L501.2300 #### [facility] [address] [place], [place], [address] Emergency Department Summary on 09-16-2024 Emergency Department Summary [facility] Medical Records Department [address] [place] [address] Emergency Department Summary 09/16/24 MR#: [id number] Acct: [id number] Name: TRICE ZAMBRANO Rep #: [id number] : 1980 44 From: David Hanna DO PCP: Dr. Joaquin Huitron MD Status:DIS IN Location: [address] History of Present Illness Chief Complaint: Abscess Narrative Narrative: Patient is a 44-year-old female with history of obesity, diabetes, history of necrotizing fasciitis in the perineum. Patient states that she did have multiple surgeries, and 2020, 2021 most of the surgeries were completed at [facility]. Patient did have having a colostomy because she was incontinent of stool. Patient states that she turned septic very quickly. Patient states that she started having pain 24 hours ago, then developed some fever and chills. Patient went to urgent care who then referred her to the emergency department. [facility] Medical History Physical exam, pre-employment History of necrotising fasciitis Current use of insulin Diabetes Home Medications ???Medication ???Instructions ???Recorded ???Last Taken ???Type insulin glargine 100 unit/mL (3 60 unit subcut BID 04/23/21 09/16/24 History mL) subcutaneous pen (Basaglar KwikPen U-100 Insulin) insulin lispro 100 unit/mL 40 unit subcut TID 04/23/21 09/16/24 History subcutaneous pen (Humalog KwikPen (U-100) Insulin) atorvastatin 10 mg tablet 10 mg PO QHS 09/14/21 09/15/24 History lisinopril 5 mg tablet 5 mg PO DAILY 09/14/21 09/15/24 History ropinirole 0.5 mg tablet 1.5 mg PO QHS 09/16/24 09/15/24 History Allergy/AdvReac Type Severity Reaction Status Date / Time metformin AdvReac Nausea Verified 09/16/24 11:18 Family History Other Breast cancer Diabetes Surgical History History of cholecystectomy History of colostomy reversal History of colostomy S/P tubal ligation H/O: Social History adopted: No household members: spouse and children housing: house number of children: 2 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 Positive fever and chills Eyes: Negative for vision loss, vision change, double vision ENT: Negative for any sore throat, ear pain, congestion Cardiovascular: Negative for any chest pain, tightness, palpitations Respiratory: Negative for any cough, sputum production, hemoptysis, dyspnea, dyspnea on exertion, orthopnea Gastrointestinal: Negative for any abdominal pain, nausea, vomiting, diarrhea, constipation, blood in stool, blood in vomit. Positive pain in the perineum area : Negative for any urinary frequency, dysuria, retention, blood in urine Muscle skeletal: Negative for any neck pain, back pain Neurological: Negative for any headache, syncope, dizziness Skin: Negative for any rashes, itching, abrasions, lacerations Psychiatric: Negative for any depression, anxiety, stress, suicidal ideation, homicidal ideation Hematologic: Negative for any excessive bruising, easy bleeding EXAM Physical Exam Narrative Exam Narrative: Vital signs reviewed. HEET: Head normocephalic atraumatic, TMs clear bilaterally. Posterior pharynx is clear, moist mucous membranes. Nares clear bilaterally. Neck: Supple with no lymphadenopathy or tenderness. No signs of meningismus. Cardiac: Regular rate and rhythm no murmurs gallops or rubs, equal peripheral pulses bilaterally. Respiratory: Lungs clear to auscultation bilaterally. No chest tenderness. Abdomen: Soft, nontender, nondistended. No abdominal bruit or pulsatile masses. No hepatosplenomegaly Extremities: No peripheral edema, no signs of gross trauma or deformity. Active full range of motion of all extremities. Neuro: Cranial nerves II through XII intact, no focal neurological deficits. Skin: Clean dry and intact with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 ndle use 1 NEEDLE FOR EACH DOSE, four times a day multivitamin tablet Take 1 tablet by mouth once daily. FAMILY HISTORY Problem Relation Age of Onset Heart Mother Drug abuse Mother Stroke Father Hypertension Maternal Grandmother other (scleroderma) Paternal Grandmother Diabetes Maternal Uncle No Known Problems Son No Known Problems Daughter Social History Tobacco Use Smoking status: Never Smokeless tobacco: Never Vaping Use Vaping status: Never Used Substance Use Topics Alcohol use: No Drug use: No Objective Physical Exam Vitals and nursing note reviewed. Constitutional: Appearance: Normal appearance. HENT: Head: Normocephalic. Right Ear: Tympanic membrane normal. Left Ear: Tympanic membrane normal. Nose: Nose normal. Mouth/Throat: Lips: [place]. Mouth: Mucous membranes are moist. Pharynx: Posterior oropharyngeal erythema present. Comments: Mild erythema posterior pharynx Eyes: Extraocular Movements: (more content not included)... Normal [facility] COVID AND INFLUENZA A/B AND RSV PCR, ROUTINEon 07-11-2024 SARS-CoV-2 (COVID-19) RNA NAKUL+probe Ql (Unsp spec) SARS-COV-2 (AGENT OF COVID-19) RNA: Not detected INFLUENZA A RNA: Not detected INFLUENZA B RNA: Not detected RESPIRATORY SYNCYTIAL VIRUS (RSV) RNA: Not detected Normal [facility] Comment on above: Performed By: #### C VFLRS ####[facility] LABCLIA [id number] [address] [place] STREP A MOLECULAR (POC)on Procedural Control Valid [facility] Strep A (POCT) Negative Negative [facility] UA DIP, URINE (POC)on 2023 BILIRUBIN UA (POCT) Negative Negative [facility] CLARITY UA (POCT) Clear [facility] COLOR UA (POCT) Yellow [facility] GLUCOSE UA (POCT) 500 mg/dL Abnormal Negative [facility] Hemoglobin Ql (U) Negative Negative [facility] Interpretation and review of laboratory results Abnormal [facility] KETONE UA (POCT) 15 mg/dL Abnormal Negative [facility] LEUKOCYTES UA (POCT) Negative Negative [facility] NITRITE UA (POCT) Negative Negative [facility] PH UA (POCT) 7.0 4.5 - 8.0 [facility] Protein Ql (U) Trace Abnormal Negative mg/dL [facility] SPECIFIC GRAVITY UA (POCT) 1.015 1.005 - 1.030 [facility] UROBILINOGEN UA (POCT) 0.2 Normal E.U./dL [facility] Location:[facility], [address] [place] [address], [place], [address] [facility] POINT OF CARE [facility] Office Visit Reporton 2023 Office Visit Report [facility] [address] [place] [address] OFFICE VISIT Date of Service: 03/26/24 MR#: [id number] Acct: [id number] Patient: TRICE ZAMBRANO Rep #: [id number] : 1980 Provider: TATYANA Jackson Age/Sex: 43/F Location: [facility] Status: Signed Intake Vital Signs 04/13/23 17:27 Height 5 ft 8 in Intake Visit Reasons: PE/NON DOT/DRUG SCREEN/CCHO Chief Complaint: abscess Allergies metformin Adverse Reaction (Verified 04/13/23 17:38) Nausea Office Procedures [facility] Billing Sheet Testing Breath Alcohol Test in ED (online marketing strategist fee charged): No Breath Alcohol in [facility]: No Breath Alcohol Test Pre-Employment: No Chest X-Ray (interpreted by radiologist): No DOT Drug Screen: No DOT Physical Exam: No DOT Pre-Employment Breath Alcohol: No DOT Pre-Employment Drug Screen: No DOT Reasonable Suspicion: No Drug Screen Collection Only: No Drug Test Performed by another entity: No ECG: No 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 Employer Ordered Physical: No Flu Test: No Functional Capacity Evaluation: No Glucose (Finger): No Hair Collection Drug Screen: No Hair Collection Only: No Hair Testing Extended (Opiates): No HCG: No Hearing (Audiogram) Test: No Non-DOT Breath Alcohol Test in ED: No Non-DOT Random Drug Screen: No Non-DOT Reasonable Suspicion: No On Site Service Call (min of 1 hr plus cost of drug screen): No Other DOT Drug Screen: No Other Non-DOT Drug Screen: No Post-Accident DOT Drug Screen (in ED online marketing strategist fee charged): No Post-Accident DOT Drug Screen in [facility]: No Post-Accident Non-DOT Breath Alcohol Test: No Post-Accident NON-DOT Drug Screen (online marketing strategist fee charged in ED): No Post-Accident NON-DOT Drug Screen in ED (online marketing strategist fee charged): No Post-Accident NON-DOT Drug Screen in [facility]: No Pre-Employment Drug Screen [facility]: Yes Pre-Employment Drug Screen: No Pre-Employment PE: No Random Consortium DOT (yearly plus drug testing fee): No Random Consortium Non-DOT (yearly plus drug testing fee): No Respirator Clearance (form only): No Respirator Fit Testing: No RSV/Flu Daily: No Saliva Drug Screen: No Second Drug Screen: No Strep Daily: No TB Test: No Tdap (over age 7): No Titmus Screening: No Vision Test: No Stress Test (conducted interpreted by a merchandise worker): No Occquant-Quantiferon: No Results POC Urinalysis Dip (Clinic) Office Urine Color Cancelled Last Edit by Franny Santos MA on 04/17/24 09:27 Office Urine Color previously reported as Yellow Franny Santos 04/17/24 09:27 Office Urine Clarity Cancelled Last Edit by Franny Santos MA on 04/17/24 09:27 Office Urine Clarity previously reported as Clear Franny Santos 04/17/24 09:27 Office Urine Glucose Cancelled Last Edit by Franny Santos MA on 04/17/24 09:27 Office Urine Glucose previously reported as 1000 g/dL Franny Santos 04/17/24 09:27 Office Urine Ketones Cancelled Last Edit by Franny Santos MA on 04/17/24 09:27 Office Urine Ketones previously reported as Negative Franny Santos 04/17/24 09:27 Off Ur Spec [place] [facility] Cancelled Last Edit by Franny Santos MA on 04/17/24 09:27 Off Ur Spec [facility] previously reported as 1.030 Franny Santos 04/17/24 09:27 Office Urine pH Cancelled Last Edit by Franny Santos MA on 04/17/24 09:27 Office Urine pH previously reported as 5.8 Franny Santos 04/17/24 09:27 Office Urine Bilirubin Cancelled Last Edit by Franny Santos MA on 04/17/24 09:27 Office Urine Bilirubin previously reported as Negative Franny Santos 04/17/24 09:27 Office Urine Urobilinogen Cancelled Last Edit by Franny Santos MA on 04/17/24 09:27 Office Urine Urobilinogen previously reported as Negative Franny Santos 04/17/24 09:27 Office Urine Blood Cancelled Last Edit by Franny Santos MA on 04/17/24 09:27 Office Urine Blood previously reported as Trace Franny Santos 04/17/24 09:27 Office Urine Blood Hemolyzed Cancelled Last Edit by Franny Santos MA on 04/17/24 09:27 Office Urine Blood Hemolyzed previously reported as NA Franny Santos 04/17/24 09:27 Office Urine Protein Cancelled Last Edit by Franny Santos MA on 04/17/24 09:27 Office Urine Protein previously reported as Trace Franny Santos 04/17/24 09:27 Office Urine Nitrate Cancelled Last Edit by Franny Santos MA on 04/17/24 09:27 Office Urine Nitrate previously reported as Negative Franny Santos 04/17/24 09:27 Off Ur Leukocytes Cancelled Last Edit by Franny Santos MA on 04/17/24 09:27 Off Ur Leukocytes previously reported as Negatve Franny Santos 04/17/24 09:27 CANCELLED services included in the charge of DOT physical do not charge patient. 06/25/2451 Date Tristin Hall Signature: Date (if applicable) CC: Normal [facility] .Auto Diffon 05-28-2024 Basophil, Absolute 0.0 10 3/mcL Normal 0.0-0.2 [facility] ([place]) Comment on above: Performed By: #### M DW, CBC, ANEU, GFR, ADIFF, BMP ####[place] [address] [place], [place] [address] Basophils/100 WBC (Bld) 0.7 % Normal 0.0-2.5 [facility] ([place]) Comment on above: Performed By: #### M DW, CBC, ANEU, GFR, ADIFF, BMP ####[place] [address] [place], [place] [address] Eosinophil, Absolute 0.1 10 3/mcL Normal 0.0-0.4 [facility] ([place]) Comment on above: Performed By: #### M DW, CBC, ANEU, GFR, ADIFF, BMP ####[address] [address] [place], [place] [address] Eosinophils/100 WBC (Bld) 1.0 % Normal 0.0-7.0 [facility] ([place] Comment on above: Performed By: #### M DW, CBC, ANEU, GFR, ADIFF, BMP ####[address] [address] [place], [place] [address] Lymphocyte, Absolute 1.7 10 3/mcL Normal 0.8-3.9 [facility] ([place] Comment on above: Performed By: #### M DW, CBC, ANEU, GFR, ADIFF, BMP ####[facility] [address] [place], [place] [address] Lymphocytes/100 WBC (Bld) 23.4 % Normal 10.0-50.0 [facility] ([place] Comment on above: Performed By: #### M DW, CBC, ANEU, GFR, ADIFF, BMP ####[address] [address] [place], [place] [address] Monocyte, Absolute 0.4 10 3/mcL Normal 0.2-1.0 [facility] ([place] Comment on above: Performed By: #### M DW, CBC, ANEU, GFR, ADIFF, BMP ####[place] [address] [place], [place] [address] Monocytes/100 WBC (Bld) 5.0 % Normal 1.7-13.0 [facility] ([place] Comment on above: Performed By: #### M DW, CBC, ANEU, GFR, ADIFF, BMP ####[place] [address] [place], [place] [address] Neutrophils/100 WBC (Bld) 69.9 % Normal 37.0-80.0 [facility] ([place] Comment on above: Performed By: #### M DW, CBC, ANEU, GFR, ADIFF, BMP ####[place] [address] [place], [place] [address] .GFRon 05-28-2024 GFR 84 ml/min/1.73sqm Normal [facility] ([place]) Comment on above: Result Comment: GFR Population mean for , Non- Americans Ages 20-29 = 116 mL/min/1.73 sq.m. Ages 30-39 = 107 mL/min/1.73 sq.m. Ages 40-49 = 99 mL/min/1.73 sq.m. Ages 50-59 = 93 mL/min/1.73 sq.m. Ages 60-69 = 85 mL/min/1.73 sq.m. Ages 70+ = 75 mL/min/1.73 sq.m. Chronic Kidney Disease: Less than 60 mL/min/1.73 square meters End Stage Renal Disease: Less than 15 mL/min/1.73 square meters Performed By: #### M DW, CBC, ANEU, GFR, ADIFF, BMP ####[facility] [address] [place], [place] [address] GFR Non- 69 ml/min/1.73sqm Normal [facility] ([place] Comment on above: Result Comment: GFR Population mean for , Non- Americans Ages 20-29 = 116 mL/min/1.73 sq.m. Ages 30-39 = 107 mL/min/1.73 sq.m. Ages 40-49 = 99 mL/min/1.73 sq.m. Ages 50-59 = 93 mL/min/1.73 sq.m. Ages 60-69 = 85 mL/min/1.73 sq.m. Ages 70+ = 75 mL/min/1.73 sq.m. Chronic Kidney Disease: Less than 60 mL/min/1.73 square meters End Stage Renal Disease: Less than 15 mL/min/1.73 square meters Performed By: #### M DW, CBC, ANEU, GFR, ADIFF, BMP ####[facility] [address] [place], [place] [address] .MDWon 05-28-2024 Monocyte Distribution Width 18.37 Normal 0.00-20.00 [facility] ([place]) Comment on above: Result Comment: For ED adult patients suspected of sepsis, MDW<=20.0 does not rule out sepsis or risk of sepsis Performed By: #### M DW, CBC, ANEU, GFR, ADIFF, BMP ####[address] [address] [place], [place] [address] .NEUABSon 05-28-2024 Neutrophil, Absolute 5.2 10 3/mcL Normal 2.9-6.2 [facility] ([place]) Comment on above: Performed By: #### M DW, CBC, ANEU, GFR, ADIFF, BMP ####[place] [address] [place], [place] [address] BMPon 05-28-2024 BUN/Creatinine Ratio 19 ratio Normal 7-27 [facility] ([place] Comment on above: Performed By: #### M DW, CBC, ANEU, GFR, ADIFF, BMP ####[address] [place], [place] [address] Calcium [Mass/Vol] 9.3 mg/dL Normal 8.4-10.2 [facility] ([place]) Comment on above: Performed By: #### M DW, CBC, ANEU, GFR, ADIFF, BMP ####[address] [place], [place] [address] Chloride [Moles/Vol] 103 mmol/L Normal 98-107 [facility] ([place]) Comment on above: Performed By: #### M DW, CBC, ANEU, GFR, ADIFF, BMP ####[address] [place], [place] [address] CO2 [Moles/Vol] 31 mmol/L High 22-29 [facility] ([place]) Comment on above: Performed By: #### M DW, CBC, ANEU, GFR, ADIFF, BMP ####[address] [address] [place], [place] [address] Creatinine [Mass/Vol] 0.89 mg/dL Normal 0.55-1.02 [facility] ([place]) Comment on above: Performed By: #### M DW, CBC, ANEU, GFR, ADIFF, BMP ####[address] [address] [place], [place] [address] Electrolyte Balance 8.0 mEq/L Normal 4.0-15.0 [facility] ([place] Comment on above: Performed By: #### M DW, CBC, ANEU, GFR, ADIFF, BMP ####[address] [place], [place] [address] Glucose [Mass/Vol] 178 mg/dL High 70-105 [facility] ([place] Comment on above: Performed By: #### M DW, CBC, ANEU, GFR, ADIFF, BMP ####[address] [place], [place] [address] Potassium [Moles/Vol] 4.0 mmol/L Normal 3.5-5.1 [facility] ([place] Comment on above: Performed By: #### M DW, CBC, ANEU, GFR, ADIFF, BMP ####[address] [place], [place] [address] Sodium [Moles/Vol] 142 mmol/L Normal 136-145 [facility] ([place] Comment on above: Performed By: #### M DW, CBC, ANEU, GFR, ADIFF, BMP ####[address] [place], [place] [address] Urea nitrogen [Mass/Vol] 17 mg/dL Normal 7-18 [facility] ([place] Comment on above: Performed By: #### M DW, CBC, ANEU, GFR, ADIFF, BMP ####[address] [place], [place] [address] CBCon 05-28-2024 Erythrocyte distribution width (RBC) [Ratio] 13.9 % Normal 11.5-14.5 [facility] ([place] Comment on above: Performed By: #### M DW, CBC, ANEU, GFR, ADIFF, BMP ####[address] [place], [place] [address] Hematocrit (Bld) [Volume fraction] 39.6 % Normal 37.0-47.0 [facility] ([place] Comment on above: Performed By: #### M DW, CBC, ANEU, GFR, ADIFF, BMP ####[address] [place], [place] [address] Hgb 13.5 G/dL Normal 12.0-16.0 [facility] ([place] Comment on above: Performed By: #### M DW, CBC, ANEU, GFR, ADIFF, BMP ####[address]evin [address] [place], [place] [address] MCH (RBC) [Entitic mass] 30.8 pg Normal 27.0-31.2 [facility] ([place]) Comment on above: Performed By: #### M DW, CBC, ANEU, GFR, ADIFF, BMP ####Nevin [address] [place], [place] [address] MCHC 34.2 G/dL Normal 33.0-37.0 [facility] ([place]) Comment on above: Performed By: #### M DW, CBC, ANEU, GFR, ADIFF, BMP ####Nevin [address] [place], [place] [address] MCV (RBC) [Entitic vol] 90.1 fL Normal 80.0-94.0 [facility] ([place] Comment on above: Performed By: #### M DW, CBC, ANEU, GFR, ADIFF, BMP ####Nevin [address] [place], [place] [address] Platelet 220 10 3/mcL Normal 130-400 [facility] ([place] Comment on above: Performed By: #### M DW, CBC, ANEU, GFR, ADIFF, BMP ####Nevin [address] [place], [place] [address] Platelet mean volume (Bld) [Entitic vol] 8.9 fL Normal 7.4-10.4 [facility] ([place] Comment on above: Performed By: #### M DW, CBC, ANEU, GFR, ADIFF, BMP ####Nevin [address] [place], [place] [address] RBC 4.40 10 6/mcL Normal 4.20-5.40 [facility] ([place] Comment on above: Performed By: #### M DW, CBC, ANEU, GFR, ADIFF, BMP ####[address]evin [address] [place], [place] [address] WBC 7.4 10 3/mcL Normal 4.6-10.8 [facility] ([place] Comment on above: Performed By: #### M DW, CBC, ANEU, GFR, ADIFF, BMP ####Nevin [address] [place], [place] [address] CT ABDOMEN/PELVIS W/O CONTRA Mare 05-28-2024 CT ABDOMEN/PELVIS W/O CONTRAST ORIGINAL EXAMINATION: CT OF THE ABDOMEN AND PELVIS WITHOUT CONTRAST 05/28/2024 4:37 pm TECHNIQUE: CT of the abdomen and pelvis was performed without the administration of intravenous contrast. Multiplanar reformatted images are provided for review. Automated exposure control, iterative reconstruction, and/or weight based adjustment of the mA/kV was utilized to reduce the radiation dose to as low as reasonably achievable. COMPARISON: CT abdomen pelvis 09/30/2023 HISTORY: ORDERING SYSTEM PROVIDED HISTORY: Reason for Exam: Pt c/o rt flank pain, mild x1 week, increasing in the last 2 days. N+V, dysuria. Prev hx renal stones. BILATERAL flank pain FINDINGS: No acute abnormality within the visualized lower lungs. The aorta is nonaneurysmal with minimal atherosclerosis. No adenopathy within the abdomen or pelvis. Likely focal fatty infiltration along the falciform groove in otherwise normal appearing liver. The spleen and bilateral adrenal glands are unremarkable. Stable approximately 1 cm hypodensity within the pancreatic neck (series 2, image 20). Otherwise, the pancreas is unremarkable. Bilateral kidneys are roughly symmetric in size. No hydronephrosis. Punctate right lower pole renal calculi. Interval passage of the left nephrolithiasis and proximal left ureteral stone. The bladder is unremarkable. Uterus is unremarkable. No adnexal lesion. No pneumoperitoneum or free fluid. Left lower quadrant colonic anastomosis. The large and small bowel are normal in caliber. The appendix is unremarkable. No inflammatory changes the GI tract. Small fat containing umbilical hernia. No acute osseous abnormality. Stable likely postsurgical changes noted along the ventral abdominal wall. IMPRESSION: Punctate nonobstructive right nephrolithiasis. I have personally reviewed the images of this examination and agree with the resident's findings and interpretation. Interpreted by: Conor Jerome Preliminary Report By: Woodrow Diaz Electronically signed By Conor Jerome Dictated Date: 05/28/2024 4:48:07 PM Prelim Date: 05/28/2024 4:54:15 PM Sign Date: 05/28/2024 5:06:46 PM Ordering Provider: JOHN Mitchell [facility] ([place]) LABORATORYOrdered By: Monty Parsons on 05-28-2024 Appearance (U) Clear (05/28/24 3:31 PM) Normal Clear AO Auto Urine SS Bilirubin Ql (U) Negative (05/28/24 3:31 PM) Normal Negative AO Auto Urine SS Color (U) Yellow (05/28/24 3:31 PM) Normal AO Auto Urine SS Glucose Test strip (U) [Mass/Vol] 500 mg/dL Invalid Interpretation Code Negative AO Auto Urine SS HCG ( test) Ql Negative (05/28/24 3:31 PM) Normal AO Manual Urine SS Hemoglobin Auto test strip (U) [Mass/Vol] Small *ABN* (05/28/24 3:31 PM) Invalid Interpretation Code Negative AO Auto Urine SS Ketones Ql (U) Negative Normal Negative AO Auto Urine SS test (u) int Not detected Invalid Interpretation Code AO Manual Urine SS UA Leuk Est Negative (05/28/24 3:31 PM) Normal Negative AO Auto Urine SS UA Nitrite Negative (05/28/24 3:31 PM) Normal Negative AO Auto Urine SS UA pH 5.5 (05/28/24 3:31 PM) Normal 5.0 - 8.0 AO Auto Urine SS UA Protein Trace mg/dL Normal Negative AO Auto Urine SS UA Spec Grav >=1.030 *ABN* (05/28/24 3:31 PM) Invalid Interpretation Code 1.015-1.025 AO Auto Urine SS UA Specimen Type Clean Catch (05/28/24 3:31 PM) Normal AO Auto Urine SS UA Urobilinogen 0.2 E.U./dL Normal 0.2-1.0 AO Auto Urine SS LABORATORYOrdered By: SYSTEM SYSTEM on 05-28-2024 Basophil, Absolute 0.0 103/mcL Normal 0.0 - 0.2 10^3/mcL AO Workflow SS Basophils/100 WBC (Bld) 0.7 % Normal 0.0 - 2.5 % AO Workflow SS Calcium [Mass/Vol] 9.3 mg/dL Normal 8.4 - 10. 2 mg/dL AO ADM SS Chloride [Moles/Vol] 103 mmol/L Normal 98 - 10 7 mmol/L AO ADM SS CO2 [Moles/Vol] 31 mmol/L High 22 - 29 mmol/L AO ADM SS Creatinine [Mass/Vol] 0.89 mg/dL Normal 0.55 - 1.02 mg/dL AO ADM SS Electrolyte Balance 8.0 mEq/L Normal 4.0 - 15 .0 mEq/L AO ADM SS Eosinophil, Absolute 0.1 103/mcL Normal 0.0 - 0 .4 10^3/mcL AO Workflow SS Eosinophils/100 WBC (Bld) 1.0 % Normal 0.0 - 7.0 % AO Workflow SS Erythrocyte distribution width (RBC) [Ratio] 13.9 % Normal 11.5 - 14.5 % AO Workflow SS GFR/1.73 sq M.predicted among blacks MDRD (S/P/Bld) [Vol rate/Area] 84 ml/min/1.73sqm Invalid Interpretation Code AO Chemistry S Comment on above: Interpretive Data: GFR Population mean for , Non- Americans Ages 20-29 = 116 mL/min/1.73 sq.m. Ages 30-39 = 107 mL/min/1.73 sq.m. Ages 40-49 = 99 mL/min/1.73 sq.m. Ages 50-59 = 93 mL/min/1.73 sq.m. Ages 60-69 = 85 mL/min/1.73 sq.m. Ages 70+ = 75 mL/min/1.73 sq.m. Chronic Kidney Disease: Less than 60 mL/min/1.73 square meters End Stage Renal Disease: Less than 15 mL/min/1.73 square meters GFR/1.73 sq M.predicted among non-blacks MDRD (S/P/Bld) [Vol rate/Area] 69 ml/min/1.73sqm Invalid Interpretation Code AO Chemistry S Comment on above: Interpretive Data: GFR Population mean for , Non- Americans Ages 20-29 = 116 mL/min/1.73 sq.m. Ages 30-39 = 107 mL/min/1.73 sq.m. Ages 40-49 = 99 mL/min/1.73 sq.m. Ages 50-59 = 93 mL/min/1.73 sq.m. Ages 60-69 = 85 mL/min/1.73 sq.m. Ages 70+ = 75 mL/min/1.73 sq.m. Chronic Kidney Disease: Less than 60 mL/min/1.73 square meters End Stage Renal Disease: Less than 15 mL/min/1.73 square meters Glucose [Mass/Vol] 178 mg/dL High 70 - 105 mg/dL AO ADM SS Hematocrit (Bld) [Volume fraction] 39.6 % Normal 37.0 - 47.0 % AO Workflow SS Hemoglobin (Bld) [Mass/Vol] 13.5 G/dL Normal 12.0 - 16.0 G/dL AO Workflow SS Lymphocyte, Absolute 1.7 103/mcL Normal 0.8 - 3 .9 10^3/mcL AO Workflow SS Lymphocytes/100 WBC (Bld) 23.4 % Normal 10.0 - 50.0 % AO Workflow SS MCH (RBC) [Entitic mass] 30.8 pg Normal 27.0 - 31.2 pg AO Workflow SS MCHC 34.2 G/dL Normal 33.0 - 37.0 G/dL AO Workflow SS MCV (RBC) [Entitic vol] 90.1 fL Normal 80.0 - 94.0 fL AO Workflow SS Monocyte distribution width Auto (Bld) [Entitic vol] 18.37 1 Normal 0.00 - 20.00 AO Workflow SS Comment on above: Result Comment: For ED adult patients suspected of sepsis, MDW<=20.0 does not rule out sepsis or risk of sepsis Monocyte, Absolute 0.4 103/mcL Normal 0.2 - 1.0 10^3/mcL AO Workflow SS Monocytes/100 WBC (Bld) 5.0 % Normal 1.7 - 13.0 % AO Workflow SS Neutrophil, Absolute 5.2 103/mcL Normal 2.9 - 6 .2 10^3/mcL AO Workflow SS Neutrophils/100 WBC (Bld) 69.9 % Normal 37.0 - 80.0 % AO Workflow SS Platelet mean volume (Bld) [Entitic vol] 8.9 fL Normal 7.4 - 10.4 fL AO Workflow SS Platelets (Bld) [#/Vol] 220 103/mcL Normal 130 - 400 10^3/mcL AO Workflow SS Potassium [Moles/Vol] 4.0 mmol/L Normal 3.5 - 5.1 mmol/L AO ADM SS RBC (Bld) [#/Vol] 4.40 106/mcL Normal 4.20 - 5.4 0 10^6/mcL AO Workflow SS Sodium [Moles/Vol] 142 mmol/L Normal 136 - 145 mmol/L AO ADM SS Urea nitrogen [Mass/Vol] 17 mg/dL Normal 7 - 18 mg/dL AO ADM SS Urea nitrogen/Creatinine [Mass ratio] 19 ratio Normal 7 - 27 ratio AO ADM SS WBC (Bld) [#/Vol] 7.4 103/mcL Normal 4.6 - 10.8 10^3/mcL AO Workflow SS PREGUon 05-28-2024 HCG ( test) Ql (U) Negative Normal [facility] ([place]) Comment on above: Performed By: #### P REGU, UA #### Nevin [address] [address] test (u) int Not detected Invalid Interpretation Code [facility] ([place]) Comment on above: Performed By: #### P REGU, UA #### Nevin [place] [id number] UAon 05-28-2024 Color (U) Yellow Normal [facility] ([place]) Comment on above: Performed By: #### P REGU, UA #### Nevin [place] [id number] Glucose (U) [Mass/Vol] 500 mg/dL Abnormal Negative [facility] ([place]) Comment on above: Performed By: #### P REGU, UA #### Nevin [place] [address] Ketones Ql (U) Negative Normal Negative [facility] ([place]) Comment on above: Performed By: #### P REGU, UA #### [address] [place] [address] UA Appear Clear Normal Clear [facility] ([place]) Comment on above: Performed By: #### P REGU, UA #### Nevin [place] [id number] UA Blood Small Abnormal Negative [facility] ([place]) Comment on above: Performed By: #### P REGU, UA #### Nevin [address] [address] UA Leuk Est Negative Normal Negative [facility] ([place]) Comment on above: Performed By: #### P REGU, UA #### Nevin [address] [address] UA Nitrite Negative Normal Negative [facility] ([place]) Comment on above: Performed By: #### P REGU, UA #### [place] [address] UA pH 5.5 Normal 5.0 - 8.0 [facility] ([place] Comment on above: Performed By: #### P REGU, UA #### [place] [id number] UA Protein Trace Normal Negative [facility] ([place]) Comment on above: Performed By: #### P REGU, UA #### [place] [address] UA Spec Grav >=1.030 Abnormal 1.015-1.025 [facility] ([place]) Comment on above: Performed By: #### P REGU, UA #### [place] [address] UA Specimen Type Clean Catch Normal [facility] ([place] Comment on above: Performed By: #### P REGU, UA #### [place] [address] UA Urobilinogen 0.2 E.U./dL Normal 0.2-1.0 [facility] ([place] Comment on above: Performed By: #### P REGU, UA #### [place] [address] Urobilinogen (U) [Mass/Vol] Negative Normal Negative [facility] ([place] Comment on above: Performed By: #### P REGU, UA #### [place] [address] CBC W Ordered Manual Differe ntial panel (Bld)on 05-07-2024 Basophils (Bld) [#/Vol] 0.04 10*3/uL Normal <0.11 [facility] Comment on above: Order Comment: Speci men Type: BLOOD SPECIMENOrdering Facility: [facility] Address: [address] [place] [address] Performed By: #### 5 7782-5, STFREV ####[facility] LABCLIA [id number] [place] [address] [place] Basophils/100 WBC (Bld) 0.5 % Normal [facility] Comment on above: Order Comment: Speci men Type: BLOOD SPECIMENOrdering Facility: [facility] Address: [address] [place] [address] Performed By: #### 5 7782-5, STFREV ####[facility] LABCLIA [id number] [place] [address] [place] Differential cell count method Nom (Bld) Auto Normal [facility] Comment on above: Order Comment: Speci men Type: BLOOD SPECIMENOrdering Facility: [facility] Address: [address] [place] [address] Performed By: #### 5 7782-5, STFREV ####[facility] LABCLIA [id number] [place] [address] [place] Eosinophils (Bld) [#/Vol] 0.07 10*3/uL Normal <0.46 [facility] Comment on above: Order Comment: Speci men Type: BLOOD SPECIMENOrdering Facility: [facility] Address: [address] [place] [address] Performed By: #### 5 7782-5, STFREV ####[facility] LABCLIA [id number] [place] [address] [place] Eosinophils/100 WBC (Bld) 0.8 % Normal [facility] Comment on above: Order Comment: Speci men Type: BLOOD SPECIMENOrdering Facility: [facility] Address: [address] [place] [address] Performed By: #### 5 7782-5, STFREV ####[facility] LABCLIA [id number] [place] [address] [place] Erythrocyte distribution width (RBC) [Ratio] 13.0 % Normal 11.5-15.0 [facility] Comment on above: Order Comment: Speci men Type: BLOOD SPECIMENOrdering Facility: [facility] Address: [address] [place], [place] [address] Performed By: #### 5 7782-5, STFREV ####[facility] LABCLIA [id number] [place] [address] [place] Hematocrit (Bld) [Volume fraction] 41.0 % Normal 36.0-46.0 [facility] Comment on above: Order Comment: Speci men Type: BLOOD SPECIMENOrdering Facility: [facility] Address: [address] [place] [address] Performed By: #### 5 7782-5, STFREV ####[facility] LABCLIA [id number] [place] [address] [place] Hemoglobin (Bld) [Mass/Vol] 13.3 g/dL Normal 11.5-15.5 [facility] Comment on above: Order Comment: Speci men Type: BLOOD SPECIMENOrdering Facility: [facility] Address: [address] [place] [address] Performed By: #### 5 7782-5, STFREV ####[facility] LABCLIA [id number] [place] [address] [place] Immature granulocytes (Bld) [#/Vol] 0.04 10*3/uL Normal <0.10 [facility] Comment on above: Order Comment: Speci men Type: BLOOD SPECIMENOrdering Facility: [facility] Address: [address] [place] [address] Performed By: #### 5 7782-5, STFREV ####[facility] LABCLIA [id number] [place] [address] [place] Immature granulocytes/100 WBC (Bld) 0.5 % Normal [facility] Comment on above: Order Comment: Speci men Type: BLOOD SPECIMENOrdering Facility: [facility] Address: [address] [place] [address] Performed By: #### 5 7782-5, STFREV ####[facility] LABCLIA [id number] [place] [address] [place] Lymphocytes (Bld) [#/Vol] 1.66 10*3/uL Normal 1.00-4.00 [facility] Comment on above: Order Comment: Speci men Type: BLOOD SPECIMENOrdering Facility: [facility] Address: [address] [place] [address] Performed By: #### 5 7782-5, STFREV ####[facility] LABIA [id number] [place] [address] [place] Lymphocytes/100 WBC (Bld) 18.9 % Normal [facility] Comment on above: Order Comment: Speci men Type: BLOOD SPECIMENOrdering Facility: [facility] Address: [address] [place] [address] Performed By: #### 5 7782-5, STFREV ####[facility] LABIA [id number] [place] [address] [place] MCH (RBC) [Entitic mass] 30.0 pg Normal 26.0-34.0 [facility] Comment on above: Order Comment: Speci men Type: BLOOD SPECIMENOrdering Facility: [facility] Address: [address] [place] [address] Performed By: #### 5 7782-5, STFREV ####[facility] LABIA [id number] [place] [address] [place] MCHC (RBC) [Mass/Vol] 32.4 g/dL Normal 30.5-36.0 [facility] Comment on above: Order Comment: Speci men Type: BLOOD SPECIMENOrdering Facility: [facility] Address: [address] [place] [address] Performed By: #### 5 7782-5, STFREV ####[facility] LABIA [id number] [place] [address] [place] MCV (RBC) [Entitic vol] 92.3 fL Normal 80.0-100.0 [facility] Comment on above: Order Comment: Speci men Type: BLOOD SPECIMENOrdering Facility: [facility] Address: [address] [place] [address] Performed By: #### 5 7782-5, STFREV ####[facility] LABCLIA [id number] [place] [address] [place] Monocytes (Bld) [#/Vol] 0.43 10*3/uL Normal <0.87 [facility] Comment on above: Order Comment: Speci men Type: BLOOD SPECIMENOrdering Facility: [facility] Address: [address] [place] [address] Performed By: #### 5 7782-5, STFREV ####[facility] LABCLIA [id number] [place] [address] [place] Monocytes/100 WBC (Bld) 4.9 % Normal [facility] Comment on above: Order Comment: Speci men Type: BLOOD SPECIMENOrdering Facility: [facility] Address: [address] [place] [address] Performed By: #### 5 7782-5, STFREV ####[facility] LABCLIA [id number] [place] [address] [place] Neutrophils (Bld) [#/Vol] 6.54 10*3/uL Normal 1.45-7.50 [facility] Comment on above: Order Comment: Speci men Type: BLOOD SPECIMENOrdering Facility: [facility] Address: [address] [place] [address] Performed By: #### 5 7782-5, STFREV ####[facility] LABCLIA [id number] [place] [address] [place] Neutrophils/100 WBC (Bld) 74.4 % Normal [facility] Comment on above: Order Comment: Speci men Type: BLOOD SPECIMENOrdering Facility: [facility] Address: [address] [place] [address] Performed By: #### 5 7782-5, STFREV ####[facility] LABIA [id number] [place] [address] [place] Nucleated RBC (Bld) [#/Vol] 10*3/uL Normal <0.01 [facility] Comment on above: Order Comment: Speci men Type: BLOOD SPECIMENOrdering Facility: [facility] Address: [address] [place] [address] Performed By: #### 5 7782-5, STFREV ####[facility] LABIA [id number] [place] [address] [place] Nucleated RBC/100 WBC (Bld) [Ratio] 0.0 /100 WBC Normal [facility] Comment on above: Order Comment: Speci men Type: BLOOD SPECIMENOrdering Facility: [facility] Address: [address] [place] [address] Performed By: #### 5 7782-5, STFREV ####[facility] [id number] [place] [address] [place] Platelet mean volume (Bld) [Entitic vol] 11.9 fL Normal 9.0-12.7 [facility] Comment on above: Order Comment: Speci men Type: BLOOD SPECIMENOrdering Facility: [facility] Address: [address] [place] [address] Performed By: #### 5 7782-5, STFREV ####[facility] LABIA [id number] [place] [address] [place] Platelets (Bld) [#/Vol] 212 10*3/uL Normal 150-400 [facility] Comment on above: Order Comment: Speci men Type: BLOOD SPECIMENOrdering Facility: [facility] Address: [address] [place] [address] Performed By: #### 5 7782-5, STFREV ####[facility] LABCLIA [id number] [address] [address] [place] RBC (Bld) [#/Vol] 4.44 10*6/uL Normal 3.90-5.20 [facility] Comment on above: Order Comment: Speci men Type: BLOOD SPECIMENOrdering Facility: [facility] Address: [address] [place] [address] Performed By: #### 5 7782-5, STFREV ####[facility] LABCLIA [id number] [address] [address] [place] WBC (Bld) [#/Vol] 8.78 10*3/uL Normal 3.70-11.00 [facility] Comment on above: Order Comment: Speci men Type: BLOOD SPECIMENOrdering Facility: [facility] Address: [address] [place] [address] Performed By: #### 5 7782-5, STFREV ####[facility] LABCLIA [id number] [place] [id number] [place] PATHOLOGIST INTERPRETATION C BC/DIFFon 05-07-2024 [place] [employer] Operator review [place] (Unsp spec) [Interp] No review performed. Normal [facility] Comment on above: Order Comment: Speci men Type: BLOOD SPECIMENOrdering Facility: [facility] Address: [address] [place] [address] Performed By: #### 5 7782-5, STFREV ####[facility] LABCLIA [id number] [place] [id number] [place] STAFF REVIEW, CBCDIF Normal [facility] Comment on above: Order Comment: Speci men Type: BLOOD SPECIMENOrdering Facility: [facility] Address: [address] [place] [address] Result Comment: The Pathologist Interpretation on this sample was cancelled because the hematology analyzer did not flag any parameters as requiring manual review. If there is a specific clinical concern for which you would like a pathologist to review the blood smear, please call Lab Client Services within 28 days. Performed By: #### 5 7782-5, TOOTIE ####[facility] LABCLIA [id number] [place] [id number] [place] ALBUMIN/CREATININE RATIO, UR INEon 04-06-2024 Albumin DL <= 20 mg/L (U) [Mass/Vol] 137.0 mg/L [facility] Albumin/Creatinine (U) [Mass ratio] 133 mg/g High NINF - 30 mg/g [facility] Comment on above: Adult Male and Femal e Nephrotic Criteria: <30 mg/g is considered normal to mildly increased 30-300 mg/g is considered moderately increased >300 mg/g is considered severely increased KDIGO. (2013). KDIGO 2012 Clinical Practice Guideline for the Evaluation and Management of Chronic Kidney Disease. Official Journal of the International Society of Nephrology, 3(1), 1-150. Creatinine (U) [Mass/Vol] 102.8 mg/dL 20.0 - 300.0 mg/dL [facility] Interpretation and review of laboratory results Abnormal [facility] CBC W Auto Differential pane l (Bld)on 04-06-2024 Basophils (Bld) [#/Vol] 0.07 10*3/uL [facility] Basophils/100 WBC (Bld) 0.5 % [facility] Differential cell count method Nom (Bld) Auto [facility] Eosinophils (Bld) [#/Vol] 0.08 10*3/uL [facility] Eosinophils/100 WBC (Bld) 0.6 % [facility] Erythrocyte distribution width (RBC) [Ratio] 13.2 % 11.5 - 15.0 % [facility] Hematocrit (Bld) [Volume fraction] 42.3 % 36.0 - 46.0 % [facility] Hemoglobin (Bld) [Mass/Vol] 13.5 g/dL 11.5 - 15.5 g/dL [facility] Immature granulocytes (Bld) [#/Vol] 0.06 10*3/uL [facility] Immature granulocytes/100 WBC (Bld) 0.5 % [facility] Interpretation and review of laboratory results Abnormal [facility] Lymphocytes (Bld) [#/Vol] 3.22 10*3/uL [facility] Lymphocytes/100 WBC (Bld) 25.0 % [facility] MCH (RBC) [Entitic mass] 29.3 pg 26.0 - 34.0 pg [facility] MCHC (RBC) [Mass/Vol] 31.9 g/dL 30.5 - 36.0 g/dL [facility] MCV (RBC) [Entitic vol] 92.0 fL 80.0 - 100.0 fL [facility] Monocytes (Bld) [#/Vol] 0.86 10*3/uL NINF [facility] Monocytes/100 WBC (Bld) 6.7 % [facility] Neutrophils (Bld) [#/Vol] 8.57 10*3/uL High [facility] Neutrophils/100 WBC (Bld) 66.7 % [facility] Nucleated RBC (Bld) [#/Vol] [facility] Nucleated RBC/100 WBC (Bld) [Ratio] 0.0 % /100 WBC [facility] Platelet mean volume (Bld) [Entitic vol] 11.6 fL 9.0 - 12.7 fL [facility] Platelets (Bld) [#/Vol] 251 10*3/uL [facility] RBC (Bld) [#/Vol] 4.60 10*6/uL 3.90 - 5.2 0 m/uL [facility] WBC (Bld) [#/Vol] 12.86 10*3/uL [facility] metabolic 2000 panelon 04-06-2024 Albumin [Mass/Vol] 4.0 g/dL 3.9 - 4.9 g/dL [facility] ALP [Catalytic activity/Vol] 101 U/L 34 - 123 U/L [facility] ALT [Catalytic activity/Vol] 16 U/L 7 - 38 U/L [facility] Anion gap [Moles/Vol] 11 mmol/L 9 - 18 mmol/L [facility] AST [Catalytic activity/Vol] 15 U/L 13 - 35 U/L [facility] Bilirubin [Mass/Vol] 0.2 mg/dL 0.2 - 1 .3 mg/dL [facility] Calcium [Mass/Vol] 9.7 mg/dL 8.5 - 10. 2 mg/dL [facility] Chloride [Moles/Vol] 106 mmol/L High 97 - 10 5 mmol/L [facility] CO2 [Moles/Vol] 24 mmol/L 22 - 30 mmol/L [facility] Creatinine [Mass/Vol] 1.04 mg/dL High 0.58 - 0.96 mg/dL [facility] GFR/1.73 sq M.predicted among non-blacks MDRD (S/P/Bld) [Vol rate/Area] 69 mL/min/{1.73_m2} - PINF [facility] Comment on above: Estimated Glomerular Filtration Rate (eGFR) is calculated using the 2020 CKD-EPI creatinine equation. This equation utilizes serum creatinine, sex, and age as parameters. The creatinine assay has traceable calibration to isotope dilution-mass spectrometry. Refer to KDIGO guidelines for clinical interpretation. In patients with unstable renal function, e.g. those with acute kidney injury, the eGFR may not accurately reflect actual GFR. Glucose [Mass/Vol] 94 mg/dL 74 - 99 mg/dL [facility] Comment on above: The [place] Diabete s Association (ADA) provides guidance for cutoff values for fasting glucose and random glucose. The ADA defines fasting as no caloric intake for at least 8 hours. Fasting plasma glucose results between 100 to 125 mg/dL indicate increased risk for diabetes (prediabetes). Fasting plasma glucose results greater than or equal to 126 mg/dL meet the criteria for diagnosis of diabetes. In the absence of unequivocal hyperglycemia, results should be confirmed by repeat testing. In a patient with classic symptoms of hyperglycemia or hyperglycemic crisis, random plasma glucose results greater than or equal to 200 mg/dL meet the criteria for diagnosis of diabetes. Reference: Standards of Medical Care in Diabetes 2016, [place] Diabetes Association. Diabetes Care. 2016.39(Suppl 1). Potassium [Moles/Vol] 4.2 mmol/L 3.7 - 5.1 mmol/L [facility] Protein [Mass/Vol] 7.0 g/dL 6.3 - 8.0 g/dL [facility] Sodium [Moles/Vol] 141 mmol/L 136 - 144 mmol/L [facility] Urea nitrogen [Mass/Vol] 30 mg/dL High 7 - 21 mg/dL [facility] HbA1c (Bld)on 04-06-2024 Average glucose Estimated from glycated hemoglobin (Bld) [Mass/Vol] 192 mg/dL [facility] Comment on above: eAG: (Estimated aver age glucose) is a calculated value from HgbA1c and is open claims representative of the average blood glucose level in the last 2-3 month period. HbA1c (Bld) [Mass fraction] 8.3 % High 4.3 - 5.6 % [facility] Comment on above: [place] Diabetes As sociation guidelines indicate that patients with HgbA1c in the range 5.7-6.4% are at increased risk for development of diabetes, and intervention by lifestyle modification may be beneficial. HgbA1c greater or equal to 6.5% is considered diagnostic of diabetes. Interpretation and review of laboratory results Abnormal [facility] LIPID PANEL, NONFASTINGon Cholesterol [Mass/Vol] 170 mg/dL NINF - 200 mg/dL [facility] Comment on above: <200 mg/dL, Desirabl e 200-239 mg/dL, Borderline high >239 mg/dL, High HDL Cholesterol, Nonfasting 52 mg/dL 39 - PINF mg/dL [facility] Comment on above: 40-59 mg/dL, Accepta ble >59 mg/dL, High: Negative risk factor for coronary heart disease <40 mg/dL, Low: Positive risk factor for coronary heart disease LDL Cholesterol, Nonfasting 87 mg/dL NINF - 100 mg/dL [facility] Comment on above: <100 mg/dL, Optimal 100-129 mg/dL, Near optimal/above optimal 130-159 mg/dL, Borderline high 160-189 mg/dL, High >189 mg/dL, Very high Secondary prevention optimal LDL Cholesterol levels are recommended to be < 70 mg/dL LDL/HDL Ratio, Nonfasting 1.67 mg/dL NINF - 2.54 mg/dL [facility] Comment on above: Reference: 1. National Cholesterol Education Program ATP III Guideline At-A-Glance Quick Desk Reference: National Heart, Lung, and Blood [place]. National Institutes of Health. 2001: NIH Publication No. 01-3305. 2. An International Atherosclerosis Society position paper: global recommendations for the management of dyslipidemia: executive summary, Atherosclerosis. 2014: 232(2):410-413. Non HDL Cholesterol, Nonfasting 118 mg/dL NINF - 130 mg/dL [facility] Comment on above: <130 mg/dL, Optimal 130-159 mg/dL, Near optimal/above optimal 160-189 mg/dL, Borderline high 190-219 mg/dL, High >219 mg/dL, Very high Secondary prevention optimal non HDL Cholesterol levels are recommended to be <100 mg/dL Total Chol/HDL Ratio, Nonfasting 3.27 mg/dL NINF - 5.10 mg/dL [facility] Triglycerides, Nonfasting 156 mg/dL High NINF - 150 mg/dL [facility] Comment on above: <150 mg/dL, Normal 150-199 mg/dL, Borderline high 200-499 mg/dL, High >499 mg/dL, Very high VLDL Cholesterol, Nonfasting 31 mg/dL High NINF - 30 mg/dL [facility] No Panel Informationon 04-06 Interpretation and review of laboratory results Abnormal [facility] Urgent Care Visit Reporton 0 03-26-2024 Urgent Care Visit Report [facility] [address], [address] [place] [address] OFFICE VISIT Date of Service: 03/26/24 MR#: [id number] Acct: [id number] Name: TRICE ZAMBRANO Rep #: [id number] : 1980 Provider: TATYANA Jackson Age/Sex: 43/F Location: [facility] Status: Signed with Addenda ADDENDUM by Grace Sibley on 06/22/24 at 1419 Office Procedure Documentation entered by Grace Sibley 06/22/24 14:19: [facility] Billing Sheet Testing Breath Alcohol Test in ED (online marketing strategist fee charged): No Breath Alcohol in [facility]: No Breath Alcohol Test Pre-Employment: No Chest X-Ray (interpreted by radiologist): No DOT Drug Screen: No DOT Physical Exam: No DOT Pre-Employment Breath Alcohol: No DOT Pre-Employment Drug Screen: No DOT Reasonable Suspicion: No Drug Screen Collection Only: No Drug Test Performed by another entity: No ECG: No 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 Employer Ordered Physical: No Flu Test: No Functional Capacity Evaluation: No Glucose (Finger): No Hair Collection Drug Screen: No Hair Collection Only: No Hair Testing Extended (Opiates): No HCG: No Hearing (Audiogram) Test: No Non-DOT Breath Alcohol Test in ED: No Non-DOT Random Drug Screen: No Non-DOT Reasonable Suspicion: No On Site Service Call (min of 1 hr plus cost of drug screen): No Other DOT Drug Screen: No Other Non-DOT Drug Screen: No Post-Accident DOT Drug Screen (in ED online marketing strategist fee charged): No Post-Accident DOT Drug Screen in [facility]: No Post-Accident Non-DOT Breath Alcohol Test: No Post-Accident NON-DOT Drug Screen (online marketing strategist fee charged in ED): No Post-Accident NON-DOT Drug Screen in ED (online marketing strategist fee charged): No Post-Accident NON-DOT Drug Screen in [facility]: No Pre-Employment Drug Screen [facility]: No Pre-Employment Drug Screen: No Pre-Employment PE: Yes Random Consortium DOT (yearly plus drug testing fee): No Random Consortium Non-DOT (yearly plus drug testing fee): No Respirator Clearance (form only): No Respirator Fit Testing: No RSV/Flu Daily: No Saliva Drug Screen: No Second Drug Screen: No Strep Daily: No TB Test: No Tdap (over age 7): No Titmus Screening: No Vision Test: No Stress Test (conducted interpreted by a merchandise worker): No Occquant-Quantiferon: No Date cc: * Signed Intake Vital Signs 04/13/23 17:27 Height 5 ft 8 in Intake Visit Reasons: PE/NON DOT/PHYSICAL/CCHO Chief Complaint: abscess Allergies metformin Adverse Reaction (Verified 04/13/23 17:38) Nausea [facility] Medical History (Updated 03/26/24 @ 15:02 by Tristin JOE, PA) Physical exam, pre-employment History of necrotising fasciitis Current use of insulin Diabetes Surgical History History of cholecystectomy History of colostomy reversal History of colostomy S/P tubal ligation H/O: Family History (Updated 03/26/24 @ 14:56 by Nancy Askew) Other Breast cancer Diabetes Social History adopted: No household members: spouse and children housing: house number of children: 2 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 pets and animals: No leisure activities: art, games and volunteer work history of recent travel: No sexually active: Yes Smoking Status: Never smoker HPI HPI Chief Complaint: abscess Details: TRICE ZAMBRANO, is a 43 F who presents to the office today for Office Procedures Physical Exam Coding PE Coding Pre-employment PE: Yes Coding Level of Care Code No Charge Diagnoses Physical exam, pre-employment Z02.1 Assessment and Plan Assessment and Plan (1) Physical exam, pre-employment: Status: Acute 03/26/24 1502 Date Tristin Hall Signature: Date (if applicable) CC: Normal [facility] Breast Screeningon 2023 IMPRESSION: NEGATIVE There is no mammographic evidence of malignancy. A 1 year screening mammogram is recommended. Lilo pichardo/shukri:02/03/2024 15:13:32 Nurse Staff Industrial(s): Miri Shultz [facility] Breast Imaging letter sent: Normal over 40 Mammogram BI-RADS: 1 Negative Multiple national specialty organizations have released breast cancer screening guidelines for women at average risk for developing breast cancer - guidelines that are based on both evidence and opinion, yet differ on when to start and how often to screen for breast cancer. With representation from Breast Imaging, Internal Medicine, Women's Health, Family Medicine, and Medical/Surgical Oncology, the [facility] has carefully reviewed the data and reached the following consensus: 1) All women should engage in shared decision-making with their providers to decide when to start and how often to screen; 2) All women should have the opportunity to start screening mammography at age 40; 3) For women ages 45-55, we recommend annual screening mammograms; 4) For women ages 55 and over, we support both the transition from an annual to a biennial interval if this aligns more with patient's values and preferences, or continuation with annual screening; 5) All women should discuss with their providers when to stop screening mammograms. Dealer Analyst: Shukri Transcribe Date/Time: Feb 03 2024 2:35P Dictated by : LILO ELLIS MD This examination was interpreted and the report reviewed and electronically signed by: LILO ELLIS MD on Feb 03 2024 3:13PM EST [facility] * * *Final Report* * * DATE OF EXAM: Feb 03 2024 2:52PM [facility] [address] [facility] SCREENING / PROCEDURE REASON: SCREENING BILATERAL MAMMO W\CAD Z12.31, 11157 * * * * Physician Interpretation * * * * #[id number] - JESSICA SCREENING BILATERAL DIGITAL SCREENING MAMMOGRAM WITH CAD: 02/03/2024 HISTORY: Screening Bilateral Mammo W\Cad Z12.31, 19390. RESULT: TECHNIQUE: The study was acquired using full field digital technology and interpreted from soft copy. Current study was also evaluated with a Computer Aided Detection (CAD). Comparison is made to exams dated: 12/11/2021 mammogram - [facility] and 12/16/2021 mammogram - [facility]. There are scattered areas of fibroglandular density. No significant masses, calcifications, or other findings are seen in either breast. [facility] Provider, Michelle Sam - 02/06/2024 * * *Final Report* * * DATE OF EXAM: Feb 03 2024 2:52PM [facility] [address] [place] [address] SCREENING / PROCEDURE REASON: SCREENING BILATERAL MAMMO W\CAD Z12.31, 20766 * * * * Physician Interpretation * * * * #[id number] - JESSICA SCREENING BILATERAL DIGITAL SCREENING MAMMOGRAM WITH CAD: 02/03/2024 HISTORY: Screening Bilateral Mammo W\Cad Z12.31, 15611. RESULT: TECHNIQUE: The study was acquired using full field digital technology and interpreted from soft copy. Current study was also evaluated with a Computer Aided Detection (CAD). Comparison is made to exams dated: 12/11/2021 mammogram - [facility] and 12/16/2021 mammogram - [facility]. There are scattered areas of fibroglandular density. No significant masses, calcifications, or other findings are seen in either breast. IMPRESSION IMPRESSION: NEGATIVE There is no mammographic evidence of malignancy. A 1 year screening mammogram is recommended. Lilo pichardo/shukri:02/03/2024 15:13:32 Nurse Staff Industrial(s): Miri Shultz [facility] Breast Imaging letter sent: Normal over 40 Mammogram BI-RADS: 1 Negative Multiple national specialty organizations have released breast cancer screening guidelines for women at average risk for developing breast cancer - guidelines that are based on both evidence and opinion, yet differ on when to start and how often to screen for breast cancer. With representation from Breast Imaging, Internal Medicine, Women's Health, Family Medicine, and Medical/Surgical Oncology, the [facility] has carefully reviewed the data and reached the following consensus: 1) All women should engage in shared decision-making with their providers to decide when to start and how often to screen; 2) All women should have the opportunity to start screening mammography at age 40; 3) For women ages 45-55, we recommend annual screening mammograms; 4) For women ages 55 and over, we support both the transition from an annual to a biennial interval if this aligns more with patient's values and preferences, or continuation with annual screening; 5) All women should discuss with their providers when to stop screening mammograms. Dealer Analyst: Shukri Transcribe Date/Time: Feb 03 2024 2:35P Dictated by : LILO ELLIS MD This examination was interpreted and the report reviewed and electronically signed by: LILO ELLIS MD on Feb 03 2024 3:13PM [facility] Breast ScreeningOrdered B y: [facility] Provider on 02-06-2024 [facility] JESSICA SCREENINGon 02-03-2024 JESSICA SCREENING * * *Final Report* * * DATE OF EXAM: Feb 03 2024 2:52PM [facility] 0581 - JESSICA SCREENING / PROCEDURE REASON: SCREENING BILATERAL MAMMO WCAD Z12.31, 42006 * * * * Physician Interpretation * * * * #[id number] - [facility] SCREENING BILATERAL DIGITAL SCREENING MAMMOGRAM WITH CAD: 02/03/2024 HISTORY: Screening Bilateral Mammo WCad Z12.31, 69935. RESULT: TECHNIQUE: The study was acquired using full field digital technology and interpreted from soft copy. Current study was also evaluated with a Computer Aided Detection (CAD). Comparison is made to exams dated: 12/11/2021 mammogram - [facility] and 12/16/2021 mammogram - [facility]. There are scattered areas of fibroglandular density. No significant masses, calcifications, or other findings are seen in either breast. IMPRESSION: NEGATIVE There is no mammographic evidence of malignancy. A 1 year screening mammogram is recommended. Lilo pichardo/shukri:02/03/2024 15:13:32 Nurse Staff Industrial(s): Jan[facility] Swann [facility] [place] [facility] Breast Imaging letter sent: Normal over 40 Mammogram BI-RADS: 1 Negative Multiple national specialty organizations have released breast cancer screening guidelines for women at average risk for developing breast cancer - guidelines that are based on both evidence and opinion, yet differ on when to start and how often to screen for breast cancer. With representation from Breast Imaging, Internal Medicine, Women's Health, Family Medicine, and Medical/Surgical Oncology, the [facility] has carefully reviewed the data and reached the following consensus: 1) All women should engage in shared decision-making with their providers to decide when to start and how often to screen; 2) All women should have the opportunity to start screening mammography at age 40; 3) For women ages 45-55, we recommend annual screening mammograms; 4) For women ages 55 and over, we support both the transition from an annual to a biennial interval if this aligns more with patient's values and preferences, or continuation with annual screening; 5) All women should discuss with their providers when to stop screening mammograms. Dealer Analyst: Shukri Transcribe Date/Time: Feb 03 2024 2:35P Dictated by : LILO ELLIS MD This examination was interpreted and the report reviewed and electronically signed by: LILO ELLIS MD on Feb 03 2024 3:13PM EST [id number] Normal [facility] Breast Screeningon 2023 Radiology Study observation (narrative) [facility] ZCALCon 10-13-2023 Calculi constituents See Below Normal [facility] ([place]) Comment on above: Result Comment: The calculus has been analyzed and found to contain the following substances: CALCIUM OXALATE Performed By: #### Z CALC #### [place] [address] Final Surgical Pathology Rep sukumar 10-11-2023 Final Surgical Pathology Report . Pathology Reports Accession: Collected Date/Time: Received Date/Time: Pathologist: [id number] 10/07/2023 10:30 EST 10/10/2023 11:02 EST DAWSON HARMON MD Final Surgical Pathology Report DIAGNOSIS: URINARY CALCULUS: - CALCULI IDENTIFIED. SENT FOR ANALYSIS CLINICAL INFORMATION: LEFT URETERAL CALCULI SPECIMEN: A. LEFT URETERAL CALCULI GROSS DESCRIPTION: All parts labelled with patient name and [id number] Received in a fresh container labeled left ureteral calculi is 1 liz stone measuring 0.4 x 0.2 x 0.1 cm. Gross examination only. Peyton Langley, Grossing Health Information Internship/ Dr. Dawson Harmon, Pathologist Dictated by Peyton Langley MICROSCOPIC DESCRIPTION: The microscopic examination is performed, except in the case of Gross Only. Electronically Signed by Pathology Report verified by [facility] DAWSON HARMON Sign out Date: 10/11/2023 09:37 Performing Lab: [facility], [address] [place] [address] Pathology Dept Disclaimer If ancillary studies were utilized, the following Laboratory Developed Test (LDT) disclaimer will apply: Under CLIA requirements, [facility] is qualified to perform high complexity testing. For all ancillary stains, positive and negative controls stain appropriately. Performance characteristics of immunohistochemical and chromogenic in-situ hybridization tests have been determined by [facility]. These tests are used for clinical purposes, They should not be regarded as investigational or for research. Normal [facility] ([place]) .Auto Diffon 09-30-2023 Basophil, Absolute 0.1 10 3/mcL Normal 0.0-0.2 [facility] ([place]) Comment on above: Performed By: #### B MP, GFR, ADIFF, CBC, MDW, ANEU #### [address] [address] Basophils/100 WBC (Bld) 0.5 % Normal 0.0-2.5 [facility] ([place]) Comment on above: Performed By: #### B MP, GFR, ADIFF, CBC, MDW, ANEU #### [address] [address] Eosinophil, Absolute 0.1 10 3/mcL Normal 0.0-0.4 [facility] ([place]) Comment on above: Performed By: #### B MP, GFR, ADIFF, CBC, MDW, ANEU #### [address] [address] Eosinophils/100 WBC (Bld) 0.8 % Normal 0.0-7.0 [facility] ([place]) Comment on above: Performed By: #### B MP, GFR, ADIFF, CBC, MDW, ANEU #### [address] [address] Lymphocyte, Absolute 1.9 10 3/mcL Normal 0.8-3.9 [facility] ([place]) Comment on above: Performed By: #### B MP, GFR, ADIFF, CBC, MDW, ANEU #### [address] [address] Lymphocytes/100 WBC (Bld) 16.3 % Normal 10.0-50.0 [facility] ([place] Comment on above: Performed By: #### B MP, GFR, ADIFF, CBC, MDW, ANEU #### [address] [address] Monocyte, Absolute 0.9 10 3/mcL Normal 0.2-1.0 [facility] ([place]) Comment on above: Performed By: #### B MP, GFR, ADIFF, CBC, MDW, ANEU #### [address] [address] Monocytes/100 WBC (Bld) 7.7 % Normal 1.7-13.0 [facility] ([place]) Comment on above: Performed By: #### B MP, GFR, ADIFF, CBC, MDW, ANEU #### [address] [address] Neutrophils/100 WBC (Bld) 74.7 % Normal 37.0-80.0 [facility] ([place]) Comment on above: Performed By: #### B MP, GFR, ADIFF, LONDON PIÑA, ANEU #### [address] [place], [place] [address] .GFRon 09-30-2023 GFR Non- 72 ml/min/1.73sqm Normal [facility] ([place]) Comment on above: Result Comment: GFR Population mean for , Non- Americans Ages 20-29 = 116 mL/min/1.73 sq.m. Ages 30-39 = 107 mL/min/1.73 sq.m. Ages 40-49 = 99 mL/min/1.73 sq.m. Ages 50-59 = 93 mL/min/1.73 sq.m. Ages 60-69 = 85 mL/min/1.73 sq.m. Ages 70+ = 75 mL/min/1.73 sq.m. Chronic Kidney Disease: Less than 60 mL/min/1.73 square meters End Stage Renal Disease: Less than 15 mL/min/1.73 square meters Performed By: #### B MP, GFR, ADIFF, LONDON PIÑA, ANEU ####[address] [place], [place] [address] GFR 87 ml/min/1.73sqm Normal [facility] ([place]) Comment on above: Result Comment: GFR Population mean for , Non- Americans Ages 20-29 = 116 mL/min/1.73 sq.m. Ages 30-39 = 107 mL/min/1.73 sq.m. Ages 40-49 = 99 mL/min/1.73 sq.m. Ages 50-59 = 93 mL/min/1.73 sq.m. Ages 60-69 = 85 mL/min/1.73 sq.m. Ages 70+ = 75 mL/min/1.73 sq.m. Chronic Kidney Disease: Less than 60 mL/min/1.73 square meters End Stage Renal Disease: Less than 15 mL/min/1.73 square meters Performed By: #### B MP, GFR, ADIFF, CBC, MDW, ANEU ####[address] [place], [place] [address] .MDWon 09-30-2023 Monocyte Distribution Width 19.90 Normal 0.00-20.00 [facility] ([place]) Comment on above: Result Comment: For ED adult patients suspected of sepsis, MDW<=20.0 does not rule out sepsis or risk of sepsis Performed By: #### B MP, GFR, ADIFF, CBC, MDJoseline, ANEU ####[address] [place], [place] [address] .NEUABSon 09-30-2023 Neutrophil, Absolute 8.5 10 3/mcL High 2.9-6.2 [facility] ([place]) Comment on above: Performed By: #### B MP, GFR, ADIFF, CBC, LONDON, ANEU #### [address] [place], [place] [address] .Urinalysis Microscopic (AO) on 09-30-2023 UA Bacteria 4+ /hpf Abnormal [facility] ([place]) Comment on above: Performed By: #### P REGU, UAMICAO, UA ####[address] [place], [place] [address] UA RBC 5-10 Abnormal None Seen [facility] ([place]) Comment on above: Performed By: #### P REGU, UAMICAO, UA ####[address] [place], [place] [address] UA Squam Epithelial LOADED Abnormal None [facility]en [facility] ([place] Comment on above: Performed By: #### P REGU, UAMICAO, UA ####[address] [place], [place] [address] UA WBC LOADED Abnormal None Seen [facility] ([place]) Comment on above: Performed By: #### P REGU, UAMICAO, UA ####[address] [place], [place] [address] BMPon 09-30-2023 BUN/Creatinine Ratio 19 ratio Normal 7-27 [facility] ([place]) Comment on above: Performed By: #### B MP, GFR, ADIFF, CBC, MDW, ANEU ####[address] [place], [place] [address] Calcium [Mass/Vol] 8.7 mg/dL Normal 8.4-10.2 [facility] ([place]) Comment on above: Performed By: #### B MP, GFR, ADIFF, CBCLONDON, ANEU ####[address] [place], [place] [address] Chloride [Moles/Vol] 102 mmol/L Normal 98-107 [facility] ([place]) Comment on above: Performed By: #### B MP, GFR, ADIFF, CBCLONDON, ANEU ####[address] [place], [place] [address] CO2 [Moles/Vol] 29 mmol/L Normal 22-29 [facility] ([place]) Comment on above: Performed By: #### B MP, GFR, ADIFF, LONDON PIÑA, ANEU ####[address] [place], [place] [address] Creatinine [Mass/Vol] 0.86 mg/dL Normal 0.55-1.02 [facility] ([place]) Comment on above: Performed By: #### B MP, GFR, ADIFF, LONDON PIÑA, ANEU ####[address] [place], [place] [address] Electrolyte Balance 7.0 mEq/L Normal 4.0-15.0 [facility] ([place]) Comment on above: Performed By: #### B MP, GFR, ADIFF, LONDON PIÑA, ANEU ####[address] [place], [place] [address] Glucose [Mass/Vol] 125 mg/dL High 70-105 [facility] ([place]) Comment on above: Performed By: #### B MP, GFR, ADIFF, LONDON PIÑA, ANEU ####[address] [place], [place] [address] Potassium [Moles/Vol] 3.7 mmol/L Normal 3.5-5.1 [facility] ([place]) Comment on above: Performed By: #### B MP, GFR, ADIFF, CBC, LONDON, ANEU ####[address] [address] Sodium [Moles/Vol] 138 mmol/L Normal 136-145 [facility] ([place]) Comment on above: Performed By: #### B MP, GFR, ADIFF, CBC, LONDON, ANEU ####[address] [address] Urea nitrogen [Mass/Vol] 16 mg/dL Normal 7-18 [facility] ([place]) Comment on above: Performed By: #### B MP, GFR, ADIFF, CBCLONDON, ANEU ####[address] [address] CBCon 09-30-2023 Erythrocyte distribution width (RBC) [Ratio] 13.4 % Normal 11.5-14.5 [facility] ([place]) Comment on above: Performed By: #### B MP, GFR, ADIFF, CBCLONDON, ANEU #### [address] [address] Hematocrit (Bld) [Volume fraction] 33.5 % Low 37.0-47.0 [facility] ([place]) Comment on above: Performed By: #### B MP, GFR, ADIFF, CBCLONDON, ANEU #### [address] [address] Hgb 11.2 G/dL Low 12.0-16.0 [facility] ([place]) Comment on above: Performed By: #### B MP, GFR, ADIFF, CBC, LONDON, ANEU #### [address] [address] MCH (RBC) [Entitic mass] 29.0 pg Normal 27.0-31.2 [facility] ([place]) Comment on above: Performed By: #### B MP, GFR, ADIFF, CBCLONDON, ANEU #### [address] [address] MCHC 33.5 G/dL Normal 33.0-37.0 [facility] ([place]) Comment on above: Performed By: #### B MP, GFR, ADIFF, CBC, MDW, ANEU #### [address] [address] MCV (RBC) [Entitic vol] 86.5 fL Normal 80.0-94.0 [facility] ([place]) Comment on above: Performed By: #### B MP, GFR, ADIFF, CBC, MDW, ANEU #### [address] [address] Platelet 234 10 3/mcL Normal 130-400 [facility] ([place]) Comment on above: Performed By: #### B MP, GFR, ADIFF, CBC, MDW, ANEU #### [address] [address] Platelet mean volume (Bld) [Entitic vol] 7.7 fL Normal 7.4-10.4 [facility] ([place]) Comment on above: Performed By: #### B MP, GFR, ADIFF, CBC, MDW, ANEU #### [address] [address] RBC 3.88 10 6/mcL Low 4.20-5.40 [facility] ([place]) Comment on above: Performed By: #### B MP, GFR, ADIFF, CBC, MDW, ANEU #### [address] [address] WBC 11.4 10 3/mcL High 4.6-10.8 [facility] ([place]) Comment on above: Performed By: #### B MP, GFR, ADIFF, CBC, MDW, ANEU #### [address] [address] [address] ABDOMEN/PELVIS W/O CONTRA STon 09-30-2023 CT ABDOMEN/PELVIS W/O CONTRAST ORIGINAL EXAMINATION: CT OF THE ABDOMEN AND PELVIS WITHOUT CONTRAST 09/30/2023 1:26 pm TECHNIQUE: CT of the abdomen and pelvis was performed without the administration of intravenous contrast. Multiplanar reformatted images are provided for review. Automated exposure control, iterative reconstruction, and/or weight based adjustment of the mA/kV was utilized to reduce the radiation dose to as low as reasonably achievable. COMPARISON: September 22, 2023 HISTORY: ORDERING SYSTEM PROVIDED HISTORY: Reason for Exam: kidney stone and infection x 1wk, stone last week, checking progress of stone. LEFT flank pain FINDINGS: Minor degenerative changes are noted in the spine. The lung bases are unremarkable. There is some focal fatty infiltration along the fissure for the falciform ligament. The liver is otherwise unremarkable. A 9 mm hypodensity at the neck of the pancreas is a stable finding since the previous exam. The pancreas is otherwise unremarkable. Spleen and adrenal glands appear normal. 2 mm stone right lower pole kidney. 3 mm stone left upper pole kidney and 3 mm stone left mid pole. Mild left-sided pelvicaliectasis is evident, slightly reduced since the previous study. At the left ureter proximally, above the level of the iliac crest, there is a 3 mm stone seen. More distally, the left ureter is unremarkable. The urinary bladder and the solid pelvic organs are grossly normal. No adenopathy, free air or free fluid seen. A distal left colon anastomosis is present. No other GI tract abnormality seen. A small umbilical fat containing hernia is evident. There is some induration of the left anterior pelvic wall with minimal skin thickening. No additional contributory finding. IMPRESSION: 1. Nephrolithiasis. Mild left-sided obstruction is fairly similar to the prior exam or slightly improved, although the 3 mm proximal left ureteral stone is not positioned significantly different than on prior study. 2. No other significant interval change. Interpreted by: Werner Pham MD Preliminary Report By: Werner Pham MD Electronically signed By Werner Pham MD Dictated Date: 09/30/2023 1:31:24 PM Prelim Date: 09/30/2023 1:36:29 PM Sign Date: 09/30/2023 1:36:29 PM Ordering Provider: CAPRICE Mitchell [facility] ([place]) LABORATORYOrdered By: Kj Nevarez on 09-30-2023 Appearance (U) Cloudy *ABN* (09/30/23 12:49 PM) Invalid Interpretation Code Clear AO Auto Urine SS Bacteria LM.HPF (Urine sed) [#/Area] 4 /[HPF] Invalid Interpretation Code AO Auto Urine SS Bilirubin Ql (U) Negative (09/30/23 12:49 PM) Normal Negative AO Auto Urine SS Color (U) Yellow (09/30/23 12:49 PM) Normal AO Auto Urine SS Glucose Test strip (U) [Mass/Vol] Negative Normal Negative AO Auto Urine SS HCG ( test) Ql Negative (09/30/23 12:49 PM) Normal AO Manual Urine SS Hemoglobin Auto test strip (U) [Mass/Vol] Trace *ABN* (09/30/23 12:49 PM) Invalid Interpretation Code Negative AO Auto Urine SS Ketones Ql (U) Negative Normal Negative AO Auto Urine SS test (u) int Not detected Invalid Interpretation Code AO Manual Urine SS UA Leuk Est Moderate *ABN* (09/30/23 12:49 PM) Invalid Interpretation Code Negative AO Auto Urine SS UA Nitrite Positive *ABN* (09/30/23 12:49 PM) Invalid Interpretation Code Negative AO Auto Urine SS UA pH 5.5 (09/30/23 12:49 PM) Normal 5.0 - 8.0 AO Auto Urine SS UA Protein 30 mg/dL Normal Negative AO Auto Urine SS UA RBC 5-10 /HPF Invalid Interpretation Code None Seen AO Auto Urine SS UA Spec Grav 1.020 (09/30/23 12:49 PM) Normal 1.015-1.025 AO Auto Urine SS UA Specimen Type Clean Catch (09/30/23 12:49 PM) Normal AO Auto Urine SS UA Squam Epithelial LOADED /HPF Invalid Interpretation Code None Seen AO Auto Urine SS UA Urobilinogen 0.2 E.U./dL Normal 0.2-1.0 AO Auto Urine SS WBC LM.HPF (Urine sed) [#/Area] LOADED /HPF Invalid Interpretation Code None Seen AO Auto Urine SS LABORATORYOrdered By: SYSTEM SYSTEM on 09-30-2023 Basophil, Absolute 0.1 103/mcL Normal 0.0 - 0.2 10^3/mcL AO Workflow SS Basophils/100 WBC (Bld) 0.5 % Normal 0.0 - 2.5 % AO Workflow SS Calcium [Mass/Vol] 8.7 mg/dL Normal 8.4 - 10. 2 mg/dL AO ADM SS Chloride [Moles/Vol] 102 mmol/L Normal 98 - 10 7 mmol/L AO ADM SS CO2 [Moles/Vol] 29 mmol/L Normal 22 - 29 mmol/L AO ADM SS Creatinine [Mass/Vol] 0.86 mg/dL Normal 0.55 - 1.02 mg/dL AO ADM SS Electrolyte Balance 7.0 mEq/L Normal 4.0 - 15 .0 mEq/L AO ADM SS Eosinophil, Absolute 0.1 103/mcL Normal 0.0 - 0 .4 10^3/mcL AO Workflow SS Eosinophils/100 WBC (Bld) 0.8 % Normal 0.0 - 7.0 % AO Workflow SS Erythrocyte distribution width (RBC) [Ratio] 13.4 % Normal 11.5 - 14.5 % AO Workflow SS GFR/1.73 sq M.predicted among blacks MDRD (S/P/Bld) [Vol rate/Area] 87 ml/min/1.73sqm Invalid Interpretation Code AO Chemistry S Comment on above: Interpretive Data: GFR Population mean for , Non- Americans Ages 20-29 = 116 mL/min/1.73 sq.m. Ages 30-39 = 107 mL/min/1.73 sq.m. Ages 40-49 = 99 mL/min/1.73 sq.m. Ages 50-59 = 93 mL/min/1.73 sq.m. Ages 60-69 = 85 mL/min/1.73 sq.m. Ages 70+ = 75 mL/min/1.73 sq.m. Chronic Kidney Disease: Less than 60 mL/min/1.73 square meters End Stage Renal Disease: Less than 15 mL/min/1.73 square meters GFR/1.73 sq M.predicted among non-blacks MDRD (S/P/Bld) [Vol rate/Area] 72 ml/min/1.73sqm Invalid Interpretation Code AO Chemistry S Comment on above: Interpretive Data: GFR Population mean for , Non- Americans Ages 20-29 = 116 mL/min/1.73 sq.m. Ages 30-39 = 107 mL/min/1.73 sq.m. Ages 40-49 = 99 mL/min/1.73 sq.m. Ages 50-59 = 93 mL/min/1.73 sq.m. Ages 60-69 = 85 mL/min/1.73 sq.m. Ages 70+ = 75 mL/min/1.73 sq.m. Chronic Kidney Disease: Less than 60 mL/min/1.73 square meters End Stage Renal Disease: Less than 15 mL/min/1.73 square meters Glucose [Mass/Vol] 125 mg/dL High 70 - 105 mg/dL AO ADM SS Hematocrit (Bld) [Volume fraction] 33.5 % Low 37.0 - 47.0 % AO Workflow SS Hemoglobin (Bld) [Mass/Vol] 11.2 G/dL Low 12.0 - 16.0 G/dL AO Workflow SS Lymphocyte, Absolute 1.9 103/mcL Normal 0.8 - 3 .9 10^3/mcL AO Workflow SS Lymphocytes/100 WBC (Bld) 16.3 % Normal 10.0 - 50.0 % AO Workflow SS MCH (RBC) [Entitic mass] 29.0 pg Normal 27.0 - 31.2 pg AO Workflow SS MCHC 33.5 G/dL Normal 33.0 - 37.0 G/dL AO Workflow SS MCV (RBC) [Entitic vol] 86.5 fL Normal 80.0 - 94.0 fL AO Workflow SS Monocyte distribution width Auto (Bld) [Entitic vol] 19.90 1 Normal 0.00 - 20.00 AO Workflow SS Comment on above: Result Comment: For ED adult patients suspected of sepsis, MDW<=20.0 does not rule out sepsis or risk of sepsis Monocyte, Absolute 0.9 103/mcL Normal 0.2 - 1.0 10^3/mcL AO Workflow SS Monocytes/100 WBC (Bld) 7.7 % Normal 1.7 - 13.0 % AO Workflow SS Neutrophil, Absolute 8.5 103/mcL High 2.9 - 6 .2 10^3/mcL AO Workflow SS Neutrophils/100 WBC (Bld) 74.7 % Normal 37.0 - 80.0 % AO Workflow SS Platelet mean volume (Bld) [Entitic vol] 7.7 fL Normal 7.4 - 10.4 fL AO Workflow SS Platelets (Bld) [#/Vol] 234 103/mcL Normal 130 - 400 10^3/mcL AO Workflow SS Potassium [Moles/Vol] 3.7 mmol/L Normal 3.5 - 5.1 mmol/L AO ADM SS RBC (Bld) [#/Vol] 3.88 106/mcL Low 4.20 - 5.4 0 10^6/mcL AO Workflow SS Sodium [Moles/Vol] 138 mmol/L Normal 136 - 145 mmol/L AO ADM SS Urea nitrogen [Mass/Vol] 16 mg/dL Normal 7 - 18 mg/dL AO ADM SS Urea nitrogen/Creatinine [Mass ratio] 19 ratio Normal 7 - 27 ratio AO ADM SS WBC (Bld) [#/Vol] 11.4 103/mcL High 4.6 - 10.8 10^3/mcL AO Workflow SS PREGUon 09-30-2023 HCG ( test) Ql (U) Negative Normal [facility] ([place]) Comment on above: Performed By: #### P REGU, UAMICAO, UA ####[address] [place] [id number] test (u) int Not detected Invalid Interpretation Code [facility] ([place]) Comment on above: Performed By: #### P REGU, UAMICAO, UA ####[address] [place] [id number] UAon 09-30-2023 Color (U) Yellow Normal [facility] ([place]) Comment on above: Performed By: #### P REGU, UAMICAO, UA ####[address] [place] [address] Glucose (U) [Mass/Vol] Negative Normal Negative [facility] ([place]) Comment on above: Performed By: #### P REGU, UAMICAO, UA ####[address] [place] [address] Ketones Ql (U) Negative Normal Negative [facility] ([place]) Comment on above: Performed By: #### P REGU, UAMICAO, UA ####[address] [place] [address] UA Appear Cloudy Abnormal Clear [facility] ([place]) Comment on above: Performed By: #### P REGU, UAMICAO, UA ####[address] [place] [id number] UA Blood Trace Abnormal Negative [facility] ([place]) Comment on above: Performed By: #### P REGU, UAMICAO, UA ####[address] [place] [address] UA Leuk Est Moderate Abnormal Negative [facility] ([place]) Comment on above: Performed By: #### P REGU, UAMICAO, UA ####[address] [place], [place] [address] UA Nitrite Positive Abnormal Negative [facility] ([place]) Comment on above: Performed By: #### P REGU, UAMICAO, UA ####[address] [place], [place] [address] UA pH 5.5 Normal 5.0 - 8.0 [facility] ([place]) Comment on above: Performed By: #### P REGU, UAMICAO, UA ####[address] [place], [place] [address] UA Protein 30 mg/dL Normal Negative [facility] ([place]) Comment on above: Performed By: #### P REGU, UAMICAO, UA ####[address] [place], [place] [address] UA Spec Grav 1.020 Normal 1.015-1.025 [facility] ([place]) Comment on above: Performed By: #### P REGU, UAMICAO, UA ####[address] [place], [place] [address] UA Specimen Type Clean Catch Normal [facility] ([place]) Comment on above: Performed By: #### P REGU, UAMICAO, UA ####[address] [place], [place] [address] UA Urobilinogen 0.2 E.U./dL Normal 0.2-1.0 [facility] ([place]) Comment on above: Performed By: #### P REGU, UAMICAO, UA ####[address] [place], [place] [address] Urobilinogen (U) [Mass/Vol] Negative Normal Negative [facility] ([place] Comment on above: Performed By: #### P REGU, UAMICAO, UA ####[address] [place], [place] [address] .Urinalysis Microscopic (AO) on 09-22-2023 UA Bacteria 1+ /hpf Abnormal [facility] ([place]) Comment on above: Performed By: #### U AMICAO, PREGU, UA ####[address] [place], [place] [address] UA RBC 0-5 Abnormal None Seen [facility] ([place]) Comment on above: Performed By: #### U AMICAO, PREGU, UA ####[address] [place], [place] [address] UA Squam Epithelial 0-5 Abnormal None Seen [facility] [place] Comment on above: Performed By: #### U AMICAO, PREGU, UA ####[address] [place], [place] [address] UA WBC LOADED Abnormal None Seen [facility] ([place] Comment on above: Performed By: #### U AMICAO, PREGU, UA ####[address] [place], [place] [address] CT ABDOMEN/PELVIS W/O CONTRA STon 09-22-2023 CT ABDOMEN/PELVIS W/O CONTRAST ORIGINAL EXAMINATION: CT OF THE ABDOMEN AND PELVIS WITHOUT ACYEFNQO51/16/2023 6:38 pm TECHNIQUE: CT of the abdomen and pelvis was performed without the administration of intravenous contrast. Multiplanar reformatted images are provided for review. Automated exposure control, iterative reconstruction, and/or weight based adjustment of the mA/kV was utilized to reduce the radiation dose to as low as reasonably achievable. COMPARISON: None HISTORY: ORDERING SYSTEM PROVIDED HISTORY: Reason for Exam: abdominal pain FINDINGS: Provided images of the lower thorax demonstrate trace pericardial fluid. The liver is unremarkable in size and contour. Minimal focal fat along the falciform ligament. The gallbladder, pancreas, spleen, bilateral adrenal glands are unremarkable. There is a 4 mm obstructing calculus within the proximal left ureter at the L3 level. There is mild resulting left hydroureteronephrosis and left perinephric stranding. Additional bilateral nonobstructing nephroliths are seen. No right hydronephrosis. The urinary bladder is incompletely distended. The small bowel demonstrates no acute abnormalities. There are postsurgical changes of the sigmoid colon with mild focal formed stool. The appendix is normal. There is no free intraperitoneal air or fluid. The aorta is nonaneurysmal. The uterus is unremarkable in size. Along the right superior aspect of the posterior uterus, there is rounded and partly exophytic soft tissue lesion measuring 4.4 cm, likely reflecting a fibroid. No adnexal mass. No suspicious osseous lesions are identified. Postsurgical changes of the left abdominal wall. IMPRESSION: 4 mm obstructing ureteral calculus with mild left hydroureteronephrosis. Additional nonobstructing bilateral nephrolithiasis. Incidental findings as described above. Interpreted by: Dwaine Guzman DO Preliminary Report By: Dwaine Guzman DO Electronically signed By Dwaine Guzman DO Dictated Date: 09/22/2023 6:42:27 PM Prelim Date: 09/22/2023 6:46:22 PM Sign Date: 09/22/2023 6:46:22 PM Ordering Provider: MYA MYERS [facility] ([place]) LABORATORYOrdered By: Quinn Boswell on 09-22-2023 Appearance (U) Cloudy *ABN* (09/22/23 6:13 PM) Invalid Interpretation Code Clear AO Auto Urine SS Bacteria LM.HPF (Urine sed) [#/Area] 1 /[HPF] Invalid Interpretation Code AO Auto Urine SS Bilirubin Ql (U) Negative (09/22/23 6:13 PM) Normal Negative AO Auto Urine SS Color (U) Yellow (09/22/23 6:13 PM) Normal AO Auto Urine SS Glucose Test strip (U) [Mass/Vol] Negative Normal Negative AO Auto Urine SS HCG ( test) Ql Negative (09/22/23 6:13 PM) Normal AO Manual Urine SS Hemoglobin Auto test strip (U) [Mass/Vol] Moderate *ABN* (09/22/23 6:13 PM) Invalid Interpretation Code Negative AO Auto Urine SS Ketones Ql (U) Negative Normal Negative AO Auto Urine SS test (u) int Not detected Invalid Interpretation Code AO Manual Urine SS UA Leuk Est Moderate *ABN* (09/22/23 6:13 PM) Invalid Interpretation Code Negative AO Auto Urine SS UA Nitrite Positive *ABN* (09/22/23 6:13 PM) Invalid Interpretation Code Negative AO Auto Urine SS UA pH 6.5 (09/22/23 6:13 PM) Normal 5.0 - 8.0 AO Auto Urine SS UA Protein 100 mg/dL Invalid Interpretation Code Negative AO Auto Urine SS UA RBC 0-5 /HPF Invalid Interpretation Code None Seen AO Auto Urine SS UA Spec Grav 1.020 (09/22/23 6:13 PM) Normal 1.015-1.025 AO Auto Urine SS UA Specimen Type Clean Catch (09/22/23 6:13 PM) Normal AO Auto Urine SS UA Squam Epithelial 0-5 /HPF Invalid Interpretation Code None Seen AO Auto Urine SS UA Urobilinogen 0.2 E.U./dL Normal 0.2-1.0 AO Auto Urine SS WBC LM.HPF (Urine sed) [#/Area] LOADED /HPF Invalid Interpretation Code None Seen AO Auto Urine SS PREGUon 09-22-2023 HCG ( test) Ql (U) Negative Normal [facility] ([place]) Comment on above: Performed By: #### U AMICAO, PREGU, UA ####[address] [id number] test (u) int Not detected Invalid Interpretation Code [facility] ([place]) Comment on above: Performed By: #### U AMICAO, PREGU, UA ####[address] [place], [place] [address] UAon 09-22-2023 Color (U) Yellow Normal [facility] ([place]) Comment on above: Performed By: #### U AMICAO, PREGU, UA ####[address] [id number] Glucose (U) [Mass/Vol] Negative Normal Negative [facility] ([place]) Comment on above: Performed By: #### U AMICAO, PREGU, UA ####[address] [place], [place] [address] Ketones Ql (U) Negative Normal Negative [facility] ([place]) Comment on above: Performed By: #### U AMICAO, PREGU, UA ####[address] [place], [place] [address] UA Appear Cloudy Abnormal Clear [facility] ([place]) Comment on above: Performed By: #### U AMICAO, PREGU, UA ####[address] [place], [place] [address] UA Blood Moderate Abnormal Negative [facility] ([place] Comment on above: Performed By: #### U AMICAO, PREGU, UA ####[address] [place], [place] [address] UA Leuk Est Moderate Abnormal Negative [facility] ([place] Comment on above: Performed By: #### U AMICAO, PREGU, UA ####[address] [place], [place] [address] UA Nitrite Positive Abnormal Negative [facility] ([place]) Comment on above: Performed By: #### U AMICAO, PREGU, UA ####[address] [place], [place] [address] UA pH 6.5 Normal 5.0 - 8.0 [facility] ([place]) Comment on above: Performed By: #### U AMICAO, PREGU, UA ####[address] [place], [place] [address] UA Protein 100 mg/dL Abnormal Negative [facility] ([place]) Comment on above: Performed By: #### U AMICAO, PREGU, UA ####[address] [place], [place] [address] UA Spec Grav 1.020 Normal 1.015-1.025 [facility] ([place]) Comment on above: Performed By: #### U AMICAO, PREGU, UA ####[address] [place], [place] [address] UA Specimen Type Clean Catch Normal [facility] ([place]) Comment on above: Performed By: #### U AMICAO, PREGU, UA ####[address] [place], [place] [address] UA Urobilinogen 0.2 E.U./dL Normal 0.2-1.0 [facility] ([place]) Comment on above: Performed By: #### U AMICAO, PREGU, UA ####[address] [place], [place] [address] Urobilinogen (U) [Mass/Vol] Negative Normal Negative [facility] ([place]) Comment on above: Performed By: #### U AMICAO, PREGU, UA ####[address] [place], [place] [address] Absolute lymphocyte countOrd ered By: Werner Moore on 08-19-2023 Lymphocytes Auto (Unsp spec) [#/Vol] 2.35 10*3/uL 0.83-4.51 [facility] Basophil percentageOrdered B y: Werner Moore on 08-19-2023 Basophils/100 WBC (Bld) 0.4 % 0-1 [facility] Chloride [Moles/Vol] 108 mmol/L 98-107 [facility] Eosinophils/100 WBC (Bld) 2.4 % 0-5 [facility] Glucose [Mass/Vol] 118 mg/dL 74-106 [facility] Comment on above: Fasting Glucose resu lt from 100 to 125 mg/dL suggests IMPAIRED HOMEOSTASIS per A.D.A. criteria. Neutrophils (Bld) [#/Vol] 5.8 10*3/uL 2.0-7.7 [facility] Neutrophils/100 WBC (Bld) 64.2 % 47-70 [facility] Potassium [Moles/Vol] 4.1 mmol/L 3.5-5.1 [facility] Comment on above: Slight Hemolysis, Re sult may be falsely increased. Sodium [Moles/Vol] 143 mmol/L 136-145 [facility] WBC (Bld) [#/Vol] 9.1 10*3/uL 4.4-11.0 [facility] Blood erythrocytes count (nu mber/volume)Ordered By: Werner Moore on 08-19-2023 RBC (Bld) [#/Vol] 4.28 10*6/uL 4.2-5.4 [facility] Blood hemoglobin measurement (mass/volume)Ordered By: Werner Moore on 08-19-2023 Hemoglobin (Bld) [Mass/Vol] 12.4 g/dL 12.0-15.0 [facility] Blood lymphocytes/100 leukoc ytesOrdered By: Werner Moore on 08-19-2023 Lymphocytes/100 WBC (Bld) 25.9 % 19-41 [facility] Blood monocytes/100 leukocyt esOrdered By: Werner Moore on 08-19-2023 Monocytes/100 WBC (Bld) 6.8 % 0-10 [facility] Blood platelet mean volumeOr dered By: Werner Moore on 08-19-2023 Platelet mean volume (Bld) [Entitic vol] 10.5 fL 6.2-12.0 [facility] Determination of erythrocyte mean corpuscular volume (MCV)Ordered By: Werner Moore on 08-19-2023 MCV (RBC) [Entitic vol] 90.0 fL 81-99 [facility] Hematocrit Auto (Bld) [Volum e fraction]Ordered By: Werner Moore on 08-19-2023 Hematocrit (Bld) [Volume fraction] 38.5 % 37-47 [facility] Laboratory - Chemistry and C hemistry - challengeOrdered By: Werner Moore on 08-19-2023 CO2 [Moles/Vol] 31.0 mmol/L 21.0-32.0 [facility] Urea nitrogen/Creatinine [Mass ratio] 24.0 mg/mg 10-20 [facility] Laboratory - Hematology and Cell countsOrdered By: Werner Moore on 08-19-2023 Erythrocyte distribution width (RBC) [Entitic vol] 40.8 fL 35.1-43.9 [facility] Erythrocyte distribution width (RBC) [Ratio] 12.5 % 11.6-14.6 [facility] Immature granulocytes/100 WBC (Bld) 0.300 % 0.0-0.9 [facility] Comment on above: IG% - Immature Granu locytes (promyelocytes, myelocytes and metamyelocytes) > 1% indicates that a LEFT SHIFT is Present. MCH (RBC) [Entitic mass] 29.0 pg 27.0-32.0 [facility] Nucleated RBC/100 WBC (Bld) [Ratio] 0 % 0-5 [facility] MCHC Auto (RBC) [Mass/Vol]Or dered By: Werner Moore on 08-19-2023 MCHC (RBC) [Mass/Vol] 32.2 g/dL 32-36 [facility] No Panel InformationOrdered By: Werner Moore on 08-19-2023 Estimated GFR (MDRD) Amer 102 mL/min >60 [facility] Comment on above: GFR Calc Estimated GFR (MDRD) Non-Af Amer 84 mL/min >60 [facility] Comment on above: Non- GFR Calc Platelets bldOrdered By: Blanquita román Oscar on 08-19-2023 Platelets (Bld) [#/Vol] 275 10*3/uL 150-450 [facility] Serum or plasma calcium boogie urement (mass/volume)Ordered By: Werner Moore on 08-19-2023 Calcium [Mass/Vol] 8.9 mg/dL 8.5-10.1 [facility] Serum or plasma creatinine m easurement (mass/volume)Ordered By: Werner Moore on 08-19-2023 Creatinine [Mass/Vol] 0.79 mg/dL 0.55-1.02 [facility] Comment on above: The validity of the calculated GFR & GFRAA in patients over 70 years has not been determined. Clinical correlation is essential. Serum or plasma urea nitroge n measurement (mass/volume)Ordered By: Werner Moore on 08-19-2023 Urea nitrogen [Mass/Vol] 19 mg/dL 7-18 [facility] Thin prep Papanicolaou smear with manual screeningOrdered By: Werner Moore on 08-19-2023 Thin prep Papanicolaou smear with manual screening 4 5-15 [facility] Whole blood hemoglobin A1c/t otal hemoglobin ratio (mass fraction)Ordered By: Werner Moore on 08-19-2023 HbA1c (Bld) [Mass fraction] 6.9 % 3.8-5.6 [facility] Comment on above: Normal < 5.7 % Predi abetic 5.7 - 6.4 % Diabetic >or= 6.5 % Please note range changes. CBC W Auto Differential pane l (Bld)on 06-03-2023 Basophils (Bld) [#/Vol] 0.03 10*3/uL <0.11 k/uL [facility] Basophils/100 WBC (Bld) 0.3 % [facility] Differential cell count method Nom (Bld) Auto [facility] Eosinophils (Bld) [#/Vol] 0.13 10*3/uL <0.46 k/uL [facility] Eosinophils/100 WBC (Bld) 1.4 % [facility] Erythrocyte distribution width (RBC) [Ratio] 12.5 % 11.5 - 15.0 % [facility] Hematocrit (Bld) [Volume fraction] 42.7 % 36.0 - 46.0 % [facility] Hemoglobin (Bld) [Mass/Vol] 13.7 g/dL 11.5 - 15.5 g/dL [facility] Immature granulocytes (Bld) [#/Vol] <0.10 k/uL [facility] Immature granulocytes/100 WBC (Bld) 0.2 % [facility] Lymphocytes (Bld) [#/Vol] 2.72 10*3/uL 1.00 - 4.00 k/uL [facility] Lymphocytes/100 WBC (Bld) 30.0 % [facility] MCH (RBC) [Entitic mass] 29.3 pg 26.0 - 34.0 pg [facility] MCHC (RBC) [Mass/Vol] 32.1 g/dL 30.5 - 36.0 g/dL [facility] MCV (RBC) [Entitic vol] 91.4 fL 80.0 - 100.0 fL [facility] Monocytes (Bld) [#/Vol] 0.70 10*3/uL <0.87 k/uL [facility] Monocytes/100 WBC (Bld) 7.7 % [facility] Neutrophils (Bld) [#/Vol] 5.48 10*3/uL 1.45 - 7.50 k/uL [facility] Neutrophils/100 WBC (Bld) 60.4 % [facility] Nucleated RBC (Bld) [#/Vol] <0.01 k/uL [facility] Nucleated RBC/100 WBC (Bld) [Ratio] 0.0 /100 WBC [facility] Platelet mean volume (Bld) [Entitic vol] 11.4 fL 9.0 - 12.7 fL [facility] Platelets (Bld) [#/Vol] 225 10*3/uL 150 - 400 k/uL [facility] RBC (Bld) [#/Vol] 4.67 10*6/uL 3.90 - 5.2 0 m/uL [facility] WBC (Bld) [#/Vol] 9.08 10*3/uL 3.70 - 11.00 k/uL [facility] HbA1c (Bld)on 06-03-2023 Average glucose Estimated from glycated hemoglobin (Bld) [Mass/Vol] 232 mg/dL [facility] HbA1c (Bld) [Mass fraction] 9.7 % High 4.3 - 5.6 % [facility] Absolute lymphocyte countOrd ered By: Dr. Link on 04-13-2023 Lymphocytes Auto (Unsp spec) [#/Vol] 2.52 10*3/uL 0.83-4.51 [facility] Basophil percentageOrdered B y: Dr. Link on 04-13-2023 Basophils/100 WBC (Bld) 0.4 % 0-1 [facility] Chloride [Moles/Vol] 101 mmol/L 98-107 [facility] Eosinophils/100 WBC (Bld) 1.4 % 0-5 [facility] Glucose [Mass/Vol] 426 mg/dL 74-106 [facility] Comment on above: Glucose result great er than or equal to 200 mg/dLsuggests DIABETES MELLITUS per A.D.A. criteria. Neutrophils (Bld) [#/Vol] 9.0 10*3/uL 2.0-7.7 [facility] Neutrophils/100 WBC (Bld) 72.1 % 47-70 [facility] Potassium [Moles/Vol] 4.2 mmol/L 3.5-5.1 [facility] Sodium [Moles/Vol] 137 mmol/L 136-145 [facility] WBC (Bld) [#/Vol] 12.5 10*3/uL 4.4-11.0 [facility] Blood erythrocytes count (nu mber/volume)Ordered By: Dr. Link on 04-13-2023 RBC (Bld) [#/Vol] 4.63 10*6/uL 4.2-5.4 [facility] Blood hemoglobin measurement (mass/volume)Ordered By: Dr. Link on 04-13-2023 Hemoglobin (Bld) [Mass/Vol] 13.6 g/dL 12.0-15.0 [facility] Blood lymphocytes/100 leukoc ytesOrdered By: Dr. Link on 04-13-2023 Lymphocytes/100 WBC (Bld) 20.2 % 19-41 [facility] Blood monocytes/100 leukocyt esOrdered By: Dr. Link on 04-13-2023 Monocytes/100 WBC (Bld) 5.1 % 0-10 [facility] Blood platelet mean volumeOr dered By: Dr. Link on 04-13-2023 Platelet mean volume (Bld) [Entitic vol] 11.8 fL 6.2-12.0 [facility] Determination of erythrocyte mean corpuscular volume (MCV)Ordered By: Dr. Link on 04-13-2023 MCV (RBC) [Entitic vol] 87.9 fL 81-99 [facility] Glucose Glucometer (BldC) [M ass/Vol]Ordered By: Dr. Link on 04-13-2023 Glucose [Mass/Vol] 427 mg/dL 74-106 [facility] Comment on above: MANAGEMENT OF PATIEN T CARE PER NURSING PROTOCOL Hematocrit Auto (Bld) [Volum e fraction]Ordered By: Dr. Link on 04-13-2023 Hematocrit (Bld) [Volume fraction] 40.7 % 37-47 [facility] Laboratory - Chemistry and C hemistry - challengeOrdered By: Dr. Link on 04-13-2023 CO2 [Moles/Vol] 28.0 mmol/L 21.0-32.0 [facility] Urea nitrogen/Creatinine [Mass ratio] 16.7 mg/mg 10-20 [facility] Laboratory - Hematology and Cell countsOrdered By: Dr. Link on 04-13-2023 Erythrocyte distribution width (RBC) [Entitic vol] 39.3 fL 35.1-43.9 [facility] Erythrocyte distribution width (RBC) [Ratio] 12.3 % 11.6-14.6 [facility] Immature granulocytes/100 WBC (Bld) 0.800 % 0.0-0.9 [facility] Comment on above: IG% - Immature Granu locytes (promyelocytes, myelocytes and metamyelocytes) > 1% indicates that a LEFT SHIFT is Present. MCH (RBC) [Entitic mass] 29.4 pg 27.0-32.0 [facility] Nucleated RBC/100 WBC (Bld) [Ratio] 0 % 0-5 [facility] MCHC Auto (RBC) [Mass/Vol]Or dered By: Dr. Link on 04-13-2023 MCHC (RBC) [Mass/Vol] 33.4 g/dL 32-36 [facility] No Panel InformationOrdered By: Dr. Link on 04-13-2023 Estimated Creatinine Clearance Calc 72.48 ml/min [facility] Estimated GFR (MDRD) Amer 76 mL/min >60 [facility] Comment on above: GFR Calc Estimated GFR (MDRD) Non-Af Amer 63 mL/min >60 [facility] Comment on above: Non- GFR Calc Platelets bldOrdered By: Dr. Link on 04-13-2023 Platelets (Bld) [#/Vol] 266 10*3/uL 150-450 [facility] Serum or plasma calcium boogie urement (mass/volume)Ordered By: Dr. Link on 04-13-2023 Calcium [Mass/Vol] 10.0 mg/dL 8.5-10.1 [facility] Serum or plasma creatinine m easurement (mass/volume)Ordered By: Dr. Link on 04-13-2023 Creatinine [Mass/Vol] 1.02 mg/dL 0.55-1.02 [facility] Comment on above: The validity of the calculated GFR & GFRAA in patients over 70 years has not been determined. Clinical correlation is essential. Serum or plasma urea nitroge n measurement (mass/volume)Ordered By: Dr. Link on 04-13-2023 Urea nitrogen [Mass/Vol] 17 mg/dL 7-18 [facility] Thin prep Papanicolaou smear with manual screeningOrdered By: Dr. Link on 04-13-2023 Thin prep Papanicolaou smear with manual screening 8 5-15 [facility] ALLIED HEALTHon 02-27-2023 ALLIED HEALTH HNO ID: [id number] Author: Geetha Muñoz, LANDEN Service: Radiology Author Type: Technologist Type: Allied Health Filed: 02/27/2023 5:49 PM Note Text: Radiology Service Progress Note PATIENT NAME: Trice Zambrano DATE OF SERVICE: February 27, 2023 TIME: 5:48 PM PATIENT IDENTITY VERIFICATION COMPLETED USING TWO (2) IDENTIFIERS: Name and Date of confirmed by patient verbally and Name and Date of confirmed by identification band. FALL SCREENING: Has the patient had 2 falls in the last year or 1 fall with injury or currently using an Ambulatory Assistive Device (Walker, Cane, Wheelchair, Crutches, etc.)? No PATIENT GENDER DATA: Female. status: : No status: NO. PATIENT RELEVANT IMPLANT DATA REVIEWED: Yes RADIOLOGY DEPARTMENT: CT; Exam(s) Completed: Brain PERIPHERAL IV DATA: Not applicable SIGNED BY: Geetha Muñoz, CT February 27, 2023 5:48 PM Normal [facility] CBC W Auto Differential pane l (Bld)on 02-27-2023 Basophils (Bld) [#/Vol] 0.03 10*3/uL Normal <0.11 [facility] Comment on above: Order Comment: Speci men Type: BLOOD SPECIMENOrdering Facility: [facility] Address: [address] [place] [address] Performed By: #### 5 7021-8 ####[facility] LABORATORYCLIA [id number] [address] [place] Basophils/100 WBC (Bld) 0.4 % Normal [facility] Comment on above: Order Comment: Speci men Type: BLOOD SPECIMENOrdering Facility: [facility] Address: [address] [place] [address] Performed By: #### 5 7021-8 ####[facility] LABORATORYCLIA [id number] [place] [address] [place] Differential cell count method Nom (Bld) Auto Normal [facility] Comment on above: Order Comment: Speci men Type: BLOOD SPECIMENOrdering Facility: [facility] Address: [address] [place] [address] Performed By: #### 5 7021-8 ####[facility] LABORATORYCLIA [id number] [place] [address] [place] Eosinophils (Bld) [#/Vol] 0.12 10*3/uL Normal <0.46 [facility] Comment on above: Order Comment: Speci men Type: BLOOD SPECIMENOrdering Facility: [facility] Address: [address] [place] [address] Performed By: #### 5 7021-8 ####[facility] LABORATORYCLIA [id number] [place] [address] [facility] [place] Eosinophils/100 WBC (Bld) 1.4 % Normal [facility] Comment on above: Order Comment: Speci men Type: BLOOD SPECIMENOrdering Facility: [facility] Address: [address] [place] [address] Performed By: #### 5 7021-8 ####[facility] LABORATORYCLIA [id number] [place] [address] [place] Erythrocyte distribution width (RBC) [Ratio] 12.8 % Normal 11.5-15.0 [facility] Comment on above: Order Comment: Speci men Type: BLOOD SPECIMENOrdering Facility: [facility] Address: [address] [address] Performed By: #### 5 7021-8 ####[facility] LABORATORYCLIA [id number] [address] [place] Hematocrit (Bld) [Volume fraction] 39.8 % Normal 36.0-46.0 [facility] Comment on above: Order Comment: Speci men Type: BLOOD SPECIMENOrdering Facility: [facility] Address: [address] [place] [address] Performed By: #### 5 7021-8 ####[facility] LABORATORYCLIA [id number] [place] [address] [place] Hemoglobin (Bld) [Mass/Vol] 13.7 g/dL Normal 11.5-15.5 [facility] Comment on above: Order Comment: Speci men Type: BLOOD SPECIMENOrdering Facility: [facility] Address: [address] [place] [address] Performed By: #### 5 7021-8 ####[facility] LABORATORYCLIA [id number] [address] [place] Immature granulocytes (Bld) [#/Vol] 10*3/uL Normal <0.10 [facility] Comment on above: Order Comment: Speci men Type: BLOOD SPECIMENOrdering Facility: [facility] Address: [address] [place] [address] Performed By: #### 5 7021-8 ####[facility] LABORATORYCLIA [id number] [place] [address] [place] Immature granulocytes/100 WBC (Bld) 0.2 % Normal [facility] Comment on above: Order Comment: Speci men Type: BLOOD SPECIMENOrdering Facility: [facility] Address: [address] [place] [address] Performed By: #### 5 7021-8 ####[facility] LABORATORYCLIA [id number] [address] [place] Lymphocytes (Bld) [#/Vol] 2.07 10*3/uL Normal 1.00-4.00 [facility] Comment on above: Order Comment: Speci men Type: BLOOD SPECIMENOrdering Facility: [facility] Address: [address] [place] [address] Performed By: #### 5 7021-8 ####[facility] LABORATORYCLIA [id number] [address] Lymphocytes/100 WBC (Bld) 24.3 % Normal [facility] Comment on above: Order Comment: Speci men Type: BLOOD SPECIMENOrdering Facility: [facility] Address: [address] [place] [address] Performed By: #### 5 7021-8 ####CUR[facility] LABORATORYCLIA [id number] [address] [place] MCH (RBC) [Entitic mass] 30.6 pg Normal 26.0-34.0 [facility] Comment on above: Order Comment: Speci men Type: BLOOD SPECIMENOrdering Facility: [facility] Address: [address] [place] [address] Performed By: #### 5 7021-8 ####[facility] LABORATORYCLIA [id number] [address] MCHC (RBC) [Mass/Vol] 34.4 g/dL Normal 30.5-36.0 [facility] Comment on above: Order Comment: Speci men Type: BLOOD SPECIMENOrdering Facility: [facility] Address: [address] [place] [address] Performed By: #### 5 7021-8 ####[facility] LABORATORYCLIA [id number] [address] [place] MCV (RBC) [Entitic vol] 88.8 fL Normal 80.0-100.0 [facility] Comment on above: Order Comment: Speci men Type: BLOOD SPECIMENOrdering Facility: [facility] Address: [address] [place] [address] Performed By: #### 5 7021-8 ####[facility] LABORATORYCLIA [id number] [place] [address] [place] Monocytes (Bld) [#/Vol] 0.46 10*3/uL Normal <0.87 [facility] Comment on above: Order Comment: Speci men Type: BLOOD SPECIMENOrdering Facility: [facility] Address: [address] [place] [address] Performed By: #### 5 7021-8 ####[facility] LABORATORYCLIA [id number] [address] Monocytes/100 WBC (Bld) 5.4 % Normal [facility] Comment on above: Order Comment: Speci men Type: BLOOD SPECIMENOrdering Facility: [facility] Address: [address] [address] Performed By: #### 5 7021-8 ####[facility] LABORATORYCLIA [id number] [place] [address] [place] Neutrophils (Bld) [#/Vol] 5.83 10*3/uL Normal 1.45-7.50 [facility] Comment on above: Order Comment: Speci men Type: BLOOD SPECIMENOrdering Facility: [facility] Address: [address] [address] Performed By: #### 5 7021-8 ####[facility] LABORATORYCLIA [id number] [address] [place] Neutrophils/100 WBC (Bld) 68.3 % Normal [facility] Comment on above: Order Comment: Speci men Type: BLOOD SPECIMENOrdering Facility: [facility] Address: [address] [address] Performed By: #### 5 7021-8 ####[facility] LABORATORYCLIA [id number] [place] [address] [place] Nucleated RBC (Bld) [#/Vol] 10*3/uL Normal <0.01 [facility] Comment on above: Order Comment: Speci men Type: BLOOD SPECIMENOrdering Facility: [facility] Address: [address] [address] Performed By: #### 5 7021-8 ####[facility] LABORATORYCLIA [id number] [place] [address] [place] Nucleated RBC/100 WBC (Bld) [Ratio] 0.0 /100 WBC Normal [facility] Comment on above: Order Comment: Speci men Type: BLOOD SPECIMENOrdering Facility: [facility] Address: [address] [place] [address] Performed By: #### 5 7021-8 ####[facility] LABORATORYCLIA [id number] [place] [address] [place] Platelet mean volume (Bld) [Entitic vol] 11.1 fL Normal 9.0-12.7 [facility] Comment on above: Order Comment: Speci men Type: BLOOD SPECIMENOrdering Facility: [facility] Address: [address] [address] Performed By: #### 5 7021-8 ####[facility] LABORATORYCLIA [id number] [place] [address] [place] Platelets (Bld) [#/Vol] 233 10*3/uL Normal 150-400 [facility] Comment on above: Order Comment: Speci men Type: BLOOD SPECIMENOrdering Facility: [facility] Address: [address] [address] Performed By: #### 5 7021-8 ####[facility] LABORATORYCLIA [id number] [place] [address] [place] RBC (Bld) [#/Vol] 4.48 10*6/uL Normal 3.90-5.20 [facility] Comment on above: Order Comment: Speci men Type: BLOOD SPECIMENOrdering Facility: [facility] Address: [address] [address] Performed By: #### 5 7021-8 ####[facility] LABORATORYCLIA [id number] [place] [address] [place] WBC (Bld) [#/Vol] 8.53 10*3/uL Normal 3.70-11.00 [facility] Comment on above: Order Comment: Speci men Type: BLOOD SPECIMENOrdering Facility: [facility] Address: [address] [place], [place] [address] [id number] Performed By: #### 5 7021-8 ####[facility] LABORATORYCLIA [id number] [place] [address] [place] [address] BRAIN WO IVCONon 02-28-20 CT BRAIN WO IVCON * * *Final Report* * * DATE OF EXAM: Feb 27 2023 5:50PM [facility] 0504 - CT BRAIN WO IVCON / PROCEDURE REASON: Transient ischemic attack (TIA) * * * * Physician Interpretation * * * * EXAMINATION: CT BRAIN WO IVCON CLINICAL HISTORY: Transient ischemic attack (TIA) Transient ischemic attack (TIA) TECHNIQUE: Routine CT of the brain without IV contrast. CT Dose-Length Product (DLP): 788 mGy*cm CT Dose Reduction Employed: Automated exposure control(AEC) and iterative recon; COMPARISON: None available. RESULT: Post-operative change: None. Acute change: No evidence of a sizable/large acute territorial brain infarct/parenchymal edema. Suggested subtle generalized hypodensity of the bilateral cerebral white matter likely reflects technique. MRI may be considered as a more sensitive modality if continued clinical concern/warranted. Hemorrhage: No evidence of acute intracranial hemorrhage. Mass Lesion / Mass Effect: There is no evidence of a sizable brain mass. No significant mass effect or extra-axial fluid collection. Chronic changes, including parenchymal: There is no significant generalized volume loss for age. The brain parenchyma is normal for age (other than if additional findings described above). Ventricles: Commensurate with sulcal sizes. No hydrocephalus. Visualized paranasal sinuses: Partially imaged. Essentially clear. Other: No depressed skull fracture is seen. Customer Complaint Clerk (topogram) images: Non-diagnostic or no additional significant findings. IMPRESSION: No CT evidence of an acute intracranial abnormality. MRI may be considered as a more sensitive modality if continued clinical concern/warranted. Dealer Analyst: CESAR Transcribe Date/Time: Feb 27 2023 5:59P Dictated by : HENRY FERNÁNDEZ MD This examination was interpreted and the report reviewed and electronically signed by: HENRY FERNÁNDEZ MD on Feb 27 2023 6:02PM EST [id number] Normal [facility] Comprehensive metabolic 2000 panelon 02-27-2023 Albumin [Mass/Vol] 4.4 g/dL Normal 3.9-4.9 [facility] Comment on above: Order Comment: Speci men Type: BLOOD SPECIMENOrdering Facility: [facility] Address: [address] [address] Performed By: #### 2 4323-8 ####[facility] LABORATORYCLIA [id number] [address] [place] [facility] ALP [Catalytic activity/Vol] 121 U/L Normal 34-123 [facility] Comment on above: Order Comment: Speci men Type: BLOOD SPECIMENOrdering Facility: [facility] Address: [address] [address] Performed By: #### 2 4323-8 ####[facility] LABORATORYCLIA [id number] [address] [place] [facility] ALT [Catalytic activity/Vol] 22 U/L Normal 7-38 [facility] Comment on above: Order Comment: Speci men Type: BLOOD SPECIMENOrdering Facility: [facility] Address: [address] [place] [address] Performed By: #### 2 4323-8 ####[facility] LABORATORYCLIA [id number] [place] [address] [place] [facility] Anion gap [Moles/Vol] 9 mmol/L Normal 9-18 [facility] Comment on above: Order Comment: Speci men Type: BLOOD SPECIMENOrdering Facility: [facility] Address: [address] [address] Performed By: #### 2 4323-8 ####[facility] LABORATORYCLIA [id number] [address] [place] AST [Catalytic activity/Vol] 18 U/L Normal 13-35 [facility] Comment on above: Order Comment: Speci men Type: BLOOD SPECIMENOrdering Facility: [facility] Address: [address] [place] [address] Performed By: #### 2 4323-8 ####CUR[facility] LABORATORYCLIA [id number] [place] [address] [place] Bilirubin [Mass/Vol] 0.2 mg/dL Normal 0.2-1.3 [facility] Comment on above: Order Comment: Speci men Type: BLOOD SPECIMENOrdering Facility: [facility] Address: [address] [place] [address] Performed By: #### 2 4323-8 ####[facility] LABORATORYCLIA [id number] [place] [address] [place] Calcium [Mass/Vol] 9.8 mg/dL Normal 8.5-10.2 [facility] Comment on above: Order Comment: Speci men Type: BLOOD SPECIMENOrdering Facility: [facility] Address: [address] [place] [address] Performed By: #### 2 4323-8 ####[facility] LABORATORYCLIA [id number] [place] [address] [place] Chloride [Moles/Vol] 103 mmol/L Normal 97-105 [facility] Comment on above: Order Comment: Speci men Type: BLOOD SPECIMENOrdering Facility: [facility] Address: [address] [place] [address] Performed By: #### 2 4323-8 ####[facility] LABORATORYCLIA [id number] [place] [address] [place] CO2 [Moles/Vol] 28 mmol/L Normal 22-30 [facility] Comment on above: Order Comment: Speci men Type: BLOOD SPECIMENOrdering Facility: [facility] Address: [address] [place] [address] Performed By: #### 2 4323-8 ####[facility] LABORATORYCLIA [id number] [place] [address] [place] Creatinine [Mass/Vol] 0.79 mg/dL Normal 0.58-0.96 [facility] Comment on above: Order Comment: Speci men Type: BLOOD SPECIMENOrdering Facility: [facility] Address: [address] [address] Performed By: #### 2 4323-8 ####CUR[facility] LABORATORYCLIA [id number] [place] [address] [place] ESTIMATED GLOMERULAR FILTRATION RATE 96 mL/min/1.73m??? Normal >=60 [facility] Comment on above: Order Comment: Farzana chairez Type: BLOOD SPECIMENOrdering Facility: [facility] Address: [address] [place] [address] Result Comment: Shanel mated Glomerular Filtration Rate (eGFR) is calculated using the 2020 CKD-EPI creatinine equation. This equation utilizes serum creatinine, sex, and age as parameters. The creatinine assay has traceable calibration to isotope dilution-mass spectrometry. Refer to KDIGO guidelines for clinical interpretation. In patients with unstable renal function, e.g. those with acute kidney injury, the eGFR may not accurately reflect actual GFR. Performed By: #### 2 4323-8 ####CUR[facility] LABORATORYCLIA [id number] [place] [address] [place] Glucose [Mass/Vol] 211 mg/dL High 74-99 [facility] Comment on above: Order Comment: Farzana mihaela Type: BLOOD SPECIMENOrdering Facility: [facility] Address: [address] [place] [address] Result Comment: The [place] [employer] (ADA) provides guidance for cutoff values for fasting glucose and random glucose. The ADA defines fasting as no caloric intake for at least 8 hours. Fasting plasma glucose results between 100 to 125 mg/dL indicate increased risk for diabetes (prediabetes). Fasting plasma glucose results greater than or equal to 126 mg/dL meet the criteria for diagnosis of diabetes. In the absence of unequivocal hyperglycemia, results should be confirmed by repeat testing. In a patient with classic symptoms of hyperglycemia or hyperglycemic crisis, random plasma glucose results greater than or equal to 200 mg/dL meet the criteria for diagnosis of diabetes. Reference: Standards of Medical Care in Diabetes 2016, [place] [employer]. Diabetes Care. 2016.39(Suppl 1). Performed By: #### 2 4323-8 ####[facility] LABORATORYCLIA [id number] [address] Potassium [Moles/Vol] 4.1 mmol/L Normal 3.7-5.1 [facility] Comment on above: Order Comment: Speci men Type: BLOOD SPECIMENOrdering Facility: [facility] Address: [address] [place] [address] Performed By: #### 2 4323-8 ####[facility] LABORATORYCLIA [id number] [address] Protein [Mass/Vol] 7.7 g/dL Normal 6.3-8.0 [facility] Comment on above: Order Comment: Speci men Type: BLOOD SPECIMENOrdering Facility: [facility] Address: [address] [place] [address] Performed By: #### 2 4323-8 ####[facility] LABORATORYCLIA [id number] [address] Sodium [Moles/Vol] 140 mmol/L Normal 136-144 [facility] Comment on above: Order Comment: Speci men Type: BLOOD SPECIMENOrdering Facility: [facility] Address: [address] [place] [address] Performed By: #### 2 4323-8 ####[facility] LABORATORYCLIA [id number] [address] Urea nitrogen [Mass/Vol] 17 mg/dL Normal 7-21 [facility] Comment on above: Order Comment: Speci men Type: BLOOD SPECIMENOrdering Facility: [facility] Address: [address] [place] [address] Performed By: #### 2 4323-8 ####[facility] LABORATORYCLIA [id number] [place] [address] [place] ECG COMPLETEon 02-27-2023 ECG COMPLETE Ventricular Rate : 9 9 BPM Atrial Rate : 99 BPM P-R Interval : 162 ms QRS Duration : 80 ms Q-T Interval : 346 ms QTC Calculation(Bazett) : 444 ms Calculated P Lima : 49 degrees Calculated R Lima : -8 degrees Calculated T Lima : 21 degrees NORMAL SINUS RHYTHM MINIMAL VOLTAGE CRITERIA FOR LVH, MAY BE NORMAL VARIANT ( R in aVL ) POSSIBLE ANTERIOR INFARCT , AGE UNDETERMINED ABNORMAL ECG 1629 no STEMI Confirmed by MD WEINSTEIN PAUL ([id number]), visual effects editor ROBIN MCMULLEN ([id number]) on 02/28/2023 6:31:10 AM NAME : TRICE ZAMBRANO PID : [id number] : 1980 Gender : Female Race : ORD : [id number] Procedure Date : Feb 27 2023 16:27:19 Edit Date : Feb 28 2023 06:31:13 Diagnosis: NORMAL SINUS RHYTHM MINIMAL VOLTAGE CRITERIA FOR LVH, MAY BE NORMAL VARIANT ( R in aVL ) POSSIBLE ANTERIOR INFARCT , AGE UNDETERMINED ABNORMAL ECG 1629 no STEMI Confirmed by MD WEINSTEIN PAUL ([id number]), visual effects editor ROBIN MCMULLEN ([id number]) on 02/28/2023 6:31:10 AM Test Reason : Chest Pain Location : 1 : ER ED Overread By : MD WEINSTEIN PAUL Edited By : ROBIN MCMULLEN Referred By : , Acquired by : MAXIMINO [facility] ED NOTEon 02-27-2023 ED NOTE HNO ID: [id number] Author: Elisha Bae RN Service: Nursing Author Type: Registered Nurse Type: ED Notes Filed: 02/27/2023 6:25 PM Note Text: Pt verbalizes understanding of follow up with orthopedics. Pt to leave with spouse, stable and ambulatory. Pt has wrist splint on right wrist and verbalizes understanding to keep spilt on except to shower. Pt pleasant and happy with care. IV removed. No further questions at this time. [facility] ED NOTE HNO ID: [id number] Author: Elisha Bae RN Service: Nursing Author Type: Registered Nurse Type: ED Notes Filed: 02/27/2023 5:01 PM Note Text: Pt up to restroom. [facility] ED NOTE HNO ID: [id number] Author: Elisha Bae RN Service: Nursing Author Type: Registered Nurse Type: ED Notes Filed: 02/27/2023 4:42 PM Note Text: MD at [facility] ED NOTE HNO ID: [id number] Author: Caridad Rush RN Service: Nursing Author Type: Registered Nurse Type: ED Notes Filed: 02/27/2023 4:27 PM Note Text: Patient presents to ED with right arm numbness x 3 days. Patient states 2 weeks ago she also had left facial numbness, facial droop and felt foggy at that time, those symptoms lasted approximately 10 minutes Normal [facility] ED PROV NOTEon 02-27-2023 ED PROV NOTE HNO ID: [id number] Author: Jose Weinstein MD Service: ? Author Type: Physician Type: ED Provider Notes Filed: 02/27/2023 6:10 PM Note Text: ED Provider Note Patient Name: Trice Zambrano : 1980 SERVICE DATE: 02/27/23 History Patient presents with: Numbness HPI Patient presents with right hand pain and numbness that started 3 days ago. She was seen at an urgent care and she mentioned she had an episode about 2 weeks ago where she had left facial numbness, she had an episode of vertigo that lasted about 10 minutes and resolved. No fever or chills. She has no vision changes. No weakness or paresthesias. No confusion and no gait abnormality. 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 PAST SURGICAL HISTORY Procedure Laterality Date ANESTH, SECTION x1 INCISION AND DRAINAGE ABSCESS COMPLICATED/MULTIPLE 04/25/2021 buttock abscess drainage LAPAROSCOPY SURG CHOLECYSTECTOMY 12/30/2015 PAST SURGICAL HISTORY OF 09/2021 ileostomy reversal FAMILY HISTORY Problem Relation Age of Onset Heart Mother Drug abuse Mother Stroke Father Hypertension Maternal Grandmother other (scleroderma) Paternal Grandmother Diabetes Maternal Uncle No Known Problems Son No Known Problems Daughter Social History Tobacco Use Smoking status: Never Smokeless tobacco: Never Vaping Use Vaping Use: Never used Substance and Sexual Activity Alcohol use: No Drug use: No Sexual activity: Yes Partners: Male ALLERGIES Allergen Reactions Metformin Diarrhea Occurred while on XR formulation Trulicity [Dulaglut* Vomiting Nausea/vomiting, diarrhea and epigastric pain. Review of Systems Constitutional: Negative for activity change and fever. HENT: Negative for congestion. Eyes: Negative for visual disturbance. Respiratory: Negative for chest tightness and shortness of breath. Cardiovascular: Negative for chest pain. Gastrointestinal: No abdominal pain. Negative for nausea and vomiting. Endocrine: Negative for polyuria. Genitourinary: Negative for difficulty urinating, dysuria and flank pain. Musculoskeletal: right hand pain Skin: Negative for color change and rash. Neurological: As in HPI Physical Exam Vitals [02/27/23 1624] BP Pulse Temp Temp src Resp SpO2 Weight Height 172/82 (!) 106 36.8 ?C (98.3 ?F) Oral 16 100 % 108.8 kg (239 lb 13.8 oz) -- Physical Exam Constitutional: Patient appears well-developed and well-nourished. Head: Normocephalic and atraumatic. ENT: No congestion. Moist membranes. No facial droop Neck: Normal range of motion. Cardiovascular: Normal rate and regular rhythm. Pulmonary/Chest: Effort normal and breath sounds normal. No respiratory distress. Abdominal: Soft, no tenderness to palpation. Musculoskeletal: Has numbness and tingling in all digits subjectively but sensation is equal to the contralateral side she has normal strength and sensation. She has a very positive Phalen's and Tinel's test. Normal strength otherwise. Neurological: Patient is alert. No sensory deficit. Normal muscle tone. Skin: Skin is warm. No rash noted. No erythema. Psychiatric: Normal mood and affect. Diagnostic Testing ED Labs Ordered and Reviewed GLUCOSE, BLOOD (POC) - Abnormal; Notable for the following components: Result Value Ref Range Glucose, Point of Care 249 (*) 74 - 99 mg/dL All other components within normal limits COMP METABOLIC PANEL - Abnormal; Notable for the following components: Glucose 211 (*) 74 - 99 mg/dL All other components within normal limits PROTHROMBIN TIME/PT - Abnormal; Notable for the following components: PT Sec 9.5 (*) 9.7 - 13.0 sec INR <0.9 (*) 0.9 - 1.3 All other components within normal limits Narrative: Sample checked for clot. CBC + DIFF Procedures ED Course / Clinical Impression Clinical Impressions as of 02/27/23 1808 Carpal tunnel syndrome of right wrist Paresthesias MDM / Disposition / Plan Patient also noted some petechiae on her right arm, she had a cuff there and they are likely secondary to cuff I reexamined her and removed her cuff. Her platelets are normal. Patient has left face paresthesias which resolved. She may need a neurological work-up outpatient such as MS and other etiologies however at this time she is stable for discharge. As far as her right hand she likely has carpal tunnel. I will refer to orthopedics for this. Otherwise I talked to her who is okay with the plan. Blood work interpreted by me is overall unremarkable. Blood sugar is slightly elevated however she is a d (more content not included)... Normal [facility] PT panel Coag (PPP)on 2022 INR Coag (PPP) [Relative time] {INR} Low 0.9-1.3 [facility] Comment on above: Order Comment: Farzana chairez Type: BLOOD SPECIMENOrdering Facility: [facility] Address: [address] [id number] Result Comment: Kelli min K Antagonist (VKA) Therapeutic Range: INR 2 to 3 (Target INR of 2.5) Note: For patients treated with VKA drugs, such as warfarin, the [place] [employer] 2012 Guideline recommends a therapeutic INR range of 2 to 3 (target INR of 2.5). This recommendation includes high-risk patients with antiphospholipid syndrome with previous arterial or venous thromboembolism, current-generation mechanical or bioprosthetic aortic heart valve replacement. Note: Patients with mechanical aortic valve replacement and additional risk factors for thromboembolic events (atrial fibrillation, previous thromboembolism, LV dysfunction, hypercoagulable conditions) or an older generation mechanical AVR (i.e., ball in-Cage) or any mechanical MVR should have a INR therapeutic range of 2.5 to 3.5 (target INR of 3). Allison GH, et al. Chest 2012, 141:7S-47S Aravind RA, et al. JAC 2017, 70: 252-289 Performed By: #### 3 4528-0 ####[facility] LABORATORYCLIA [id number] [place] [address] [place] PT Coag (PPP) [Time] 9.5 s Low 9.7-13.0 [facility] Comment on above: Order Comment: Farzana chairez Type: BLOOD SPECIMENOrdering Facility: [facility] Address: [address] [place] [address] Performed By: #### 3 4528-0 ####[facility] LABORATORYCLIA [id number] [place] [address] [place] Bacteria Bld Culton 11-28-19 23 Bacteria identified Cx Nom (Bld) CULTURE, BLOOD: No growth 5 days [facility] Comment on above: Performed By: #### 6 00-7 ####[facility] LABCLIA [id number] [address] [place] Bacteria identified Cx Nom (Bld) CULTURE, BLOOD: No growth 5 days [facility] Comment on above: Performed By: #### 6 00-7 ####[facility] LABCLIA [id number] [address] [place] Bacteria Wnd Culton 11-28-19 23 Bacteria identified Cx Nom (Wound) ORGANISM ID: 1 Moderate Streptococcus agalactiae (group b streptococcus) ORGANISM ID: 2 Few skin chris GRAM STAIN: Few Gram positive cocci in pairs and chains Few Polymorphonuclear leukocytes ORGANISM ID: 1 (STREPTOCOCCUS AGALACTIAE (GROUP B STREPTOCOCCUS)) ANTIBIOTIC INTERPRETATION BLANQUITA STATUS REFERENCE RANGE Penicillin G S 0.06 F Susceptible <=0.125 , Nonsusceptible >.125 Ceftriaxone S <=0.12 F Susceptible <=0.5 , Nonsusceptible >.5 Erythromycin S <=0.25 F Susceptible <=0.25 , Intermediate >.25 , Resistant >=1 Clindamycin S <=0.12 F Susceptible <=0.25 , Intermediate >.25 , Resistant >.5 Vancomycin S <=0.50 F Susceptible <=1 , Nonsusceptible >1 Abnormal [facility] Comment on above: Performed By: #### 6 462-6 ####[facility] LABCLIA [id number] [facility] [id number] STATES [facility] CBC W Auto Differential pane l (Bld)on 11-28-2022 Basophils (Bld) [#/Vol] 0.04 10*3/uL Normal <0.11 [facility] Comment on above: Order Comment: Speci men Type: BLOOD SPECIMENOrdering Facility: [facility] Address: [address] [place] [address] Performed By: #### 5 7021-8 ####[facility] LABORATORYCLIA [id number] [address] [place] Basophils/100 WBC (Bld) 0.4 % Normal [facility] Comment on above: Order Comment: Speci men Type: BLOOD SPECIMENOrdering Facility: [facility] Address: [address] [place] [address] Performed By: #### 5 7021-8 ####[facility] LABORATORYCLIA [id number] [address] Differential cell count method Nom (Bld) Auto Normal [facility] Comment on above: Order Comment: Speci men Type: BLOOD SPECIMENOrdering Facility: [facility] Address: [address] [place] [address] Performed By: #### 5 7021-8 ####[facility] LABORATORYCLIA [id number] [place] [address] [place] Eosinophils (Bld) [#/Vol] 0.06 10*3/uL Normal <0.46 [facility] Comment on above: Order Comment: Speci men Type: BLOOD SPECIMENOrdering Facility: [facility] Address: [address] [place] [address] Performed By: #### 5 7021-8 ####[facility] LABORATORYCLIA [id number] [place] [address] [place] Eosinophils/100 WBC (Bld) 0.6 % Normal [facility] Comment on above: Order Comment: Speci men Type: BLOOD SPECIMENOrdering Facility: [facility] Address: [address] [place] [address] Performed By: #### 5 7021-8 ####[facility] LABORATORYCLIA [id number] [address] [place] Erythrocyte distribution width (RBC) [Ratio] 12.8 % Normal 11.5-15.0 [facility] Comment on above: Order Comment: Speci men Type: BLOOD SPECIMENOrdering Facility: [facility] Address: [address] [place] [address] Performed By: #### 5 7021-8 ####[facility] LABORATORYCLIA [id number] [address] [place] Hematocrit (Bld) [Volume fraction] 38.4 % Normal 36.0-46.0 [facility] Comment on above: Order Comment: Speci men Type: BLOOD SPECIMENOrdering Facility: [facility] Address: [address] [place] [address] Performed By: #### 5 7021-8 ####[facility] LABORATORYCLIA [id number] [address] [place] Hemoglobin (Bld) [Mass/Vol] 12.9 g/dL Normal 11.5-15.5 [facility] Comment on above: Order Comment: Speci men Type: BLOOD SPECIMENOrdering Facility: [facility] Address: [address] [place] [address] Performed By: #### 5 7021-8 ####[facility] LABORATORYCLIA [id number] [address] Immature granulocytes (Bld) [#/Vol] 0.03 10*3/uL Normal <0.10 [facility] Comment on above: Order Comment: Speci men Type: BLOOD SPECIMENOrdering Facility: [facility] Address: [address] [address] Performed By: #### 5 7021-8 ####[facility] LABORATORYCLIA [id number] [address] Immature granulocytes/100 WBC (Bld) 0.3 % Normal [facility] Comment on above: Order Comment: Speci men Type: BLOOD SPECIMENOrdering Facility: [facility] Address: [address] [address] Performed By: #### 5 7021-8 ####[facility] LABORATORYCLIA [id number] [address] Lymphocytes (Bld) [#/Vol] 1.42 10*3/uL Normal 1.00-4.00 [facility] Comment on above: Order Comment: Speci men Type: BLOOD SPECIMENOrdering Facility: [facility] Address: [address] [address] Performed By: #### 5 7021-8 ####[facility] LABORATORYCLIA [id number] [address] Lymphocytes/100 WBC (Bld) 13.8 % Normal [facility] Comment on above: Order Comment: Speci men Type: BLOOD SPECIMENOrdering Facility: [facility] Address: [address] [address] Performed By: #### 5 7021-8 ####[facility] LABORATORYCLIA [id number] [address] MCH (RBC) [Entitic mass] 30.0 pg Normal 26.0-34.0 [facility] Comment on above: Order Comment: Speci men Type: BLOOD SPECIMENOrdering Facility: [facility] Address: [address] [address] Performed By: #### 5 7021-8 ####[facility] LABORATORYCLIA [id number] [address] MCHC (RBC) [Mass/Vol] 33.6 g/dL Normal 30.5-36.0 [facility] Comment on above: Order Comment: Speci men Type: BLOOD SPECIMENOrdering Facility: [facility] Address: [address] [address] Performed By: #### 5 7021-8 ####[facility] LABORATORYCLIA [id number] [place] [address] [place] MCV (RBC) [Entitic vol] 89.3 fL Normal 80.0-100.0 [facility] Comment on above: Order Comment: Speci men Type: BLOOD SPECIMENOrdering Facility: [facility] Address: [address] [place] [address] Performed By: #### 5 7021-8 ####[facility] LABORATORYCLIA [id number] [place] [address] [place] Monocytes (Bld) [#/Vol] 0.78 10*3/uL Normal <0.87 [facility] Comment on above: Order Comment: Speci men Type: BLOOD SPECIMENOrdering Facility: [facility] Address: [address] [place] [address] Performed By: #### 5 7021-8 ####[facility] LABORATORYCLIA [id number] [address] Monocytes/100 WBC (Bld) 7.6 % Normal [facility] Comment on above: Order Comment: Speci men Type: BLOOD SPECIMENOrdering Facility: [facility] Address: [address] [place] [address] Performed By: #### 5 7021-8 ####[facility] LABORATORYCLIA [id number] [place] [address] [place] Neutrophils (Bld) [#/Vol] 7.95 10*3/uL High 1.45-7.50 [facility] Comment on above: Order Comment: Speci men Type: BLOOD SPECIMENOrdering Facility: [facility] Address: [address] [place] [address] Performed By: #### 5 7021-8 ####[facility] LABORATORYCLIA [id number] [address] [place] Neutrophils/100 WBC (Bld) 77.3 % Normal [facility] Comment on above: Order Comment: Speci men Type: BLOOD SPECIMENOrdering Facility: [facility] Address: [address] [address] Performed By: #### 5 7021-8 ####[facility] LABORATORYCLIA [id number] [place] [address] [place] Nucleated RBC (Bld) [#/Vol] 10*3/uL Normal <0.01 [facility] Comment on above: Order Comment: Speci men Type: BLOOD SPECIMENOrdering Facility: [facility] Address: [address] [address] Performed By: #### 5 7021-8 ####[facility] LABORATORYCLIA [id number] [place] [address] [facility] [place] Nucleated RBC/100 WBC (Bld) [Ratio] 0.0 /100 WBC Normal [facility] Comment on above: Order Comment: Speci men Type: BLOOD SPECIMENOrdering Facility: [facility] Address: [address] [address] Performed By: #### 5 7021-8 ####[facility] LABORATORYCLIA [id number] [place] [address] [place] Platelet mean volume (Bld) [Entitic vol] 11.6 fL Normal 9.0-12.7 [facility] Comment on above: Order Comment: Speci men Type: BLOOD SPECIMENOrdering Facility: [facility] Address: [address] [place] [address] Performed By: #### 5 7021-8 ####[facility] LABORATORYCLIA [id number] [place] [address] [place] Platelets (Bld) [#/Vol] 179 10*3/uL Normal 150-400 [facility] Comment on above: Order Comment: Speci men Type: BLOOD SPECIMENOrdering Facility: [facility] Address: [address] [address] Performed By: #### 5 7021-8 ####[facility] LABORATORYCLIA [id number] [place] [address] [place] RBC (Bld) [#/Vol] 4.30 10*6/uL Normal 3.90-5.20 [facility] Comment on above: Order Comment: Speci men Type: BLOOD SPECIMENOrdering Facility: [facility] Address: [address] [address] Performed By: #### 5 7021-8 ####[facility] LABORATORYCLIA [id number] [address] WBC (Bld) [#/Vol] 10.28 10*3/uL Normal 3.70-11.00 [facility] Comment on above: Order Comment: Speci men Type: BLOOD SPECIMENOrdering Facility: [facility] Address: [address] Performed By: #### 5 7021-8 ####[facility] LABORATORYCLIA [id number] [address] ABD/PEL W IVCONon 023 CT ABD/PEL W IVCON * * *Final Report* * * DATE OF EXAM: Nov 28 2022 5:57PM [facility] 0530 - CT ABD/PEL W IVCON / PROCEDURE REASON: Abdominal abscess/infection suspected * * * * Physician Interpretation * * * * EXAMINATION: CT ABDOMEN AND PELVIS WITH IV CONTRAST CLINICAL HISTORY: Evaluate for abscess/infection. TECHNIQUE: CT of the abdomen and pelvis was performed using standard technique, scanning from just above the dome of the diaphragm to the symphysis pubis. MQ: CTAP_3 Contrast: IV: 100 ml of Omnipaque 300 : ml of CT Radiation dose: Integrated Dose-length product (DLP) for this visit = 1476 mGy*cm. CT Dose Reduction Employed: Iterative recon and mAs-kVp adjusted using patient size-age COMPARISON: None. RESULT: Liver: No mass. Biliary: No bile duct dilation. Gallbladder is not identified, likely absent. Spleen: No mass. No splenomegaly. Pancreas: No mass or duct dilation. Adrenals: No mass. Kidneys: No mass, calculus or hydronephrosis. GI tract: No dilation or wall thickening. Anastomosis in the descending colon. Lymph nodes: No abdominal or pelvic lymphadenopathy. Mesentery/Peritoneum: No ascites or mass. Retroperitoneum: No mass. Vasculature: - Abdominal aorta and iliac arteries: No aneurysm. - Celiac and SMA: Patent without stenosis. - Portal venous system (SMV, splenic vein, portal vein and branches): Patent. - Hepatic veins: Patent. Pelvis: No mass, ascites or fluid collection. Bones/Soft Tissues: There is an area of scarring in the left lower abdomen from prior colostomy. Small fluid collection remains in this region measuring approximately 3.6 x 2.4 cm. The possibility of small abscess is not excluded and clinical correlation is needed. Lower thorax: Unremarkable. Customer Complaint Clerk (topogram) images: No additional findings. IMPRESSION: Postsurgical changes. Small fluid collection within the left lower abdominal anterior wall, infectious process not excluded. Clinical correlation is needed. Dealer Analyst: PSCB Transcribe Date/Time: Nov 28 2022 6:11P Dictated by : JESSI WYLIE MD This examination was interpreted and the report reviewed and electronically signed by: JESSI WYLIE MD on Nov 28 2022 6:14PM EST [id number] Normal [facility] Comprehensive metabolic 2000 panelon 11-28-2022 Albumin [Mass/Vol] 3.5 g/dL Low 3.9-4.9 [facility] Comment on above: Order Comment: Speci men Type: BLOOD SPECIMENOrdering Facility: [facility] Address: [address] [address] Performed By: #### 2 4323-8 ####[facility] LABORATORYCLIA [id number] [address] STATES OF [facility] ALP [Catalytic activity/Vol] 88 U/L Normal 34-123 [facility] Comment on above: Order Comment: Speci men Type: BLOOD SPECIMENOrdering Facility: [facility] Address: [address] [address] Performed By: #### 2 4323-8 ####[facility] LABORATORYCLIA [id number] [address] ALT [Catalytic activity/Vol] 12 U/L Normal 7-38 [facility] Comment on above: Order Comment: Speci men Type: BLOOD SPECIMENOrdering Facility: [facility] Address: [address] [address] Performed By: #### 2 4323-8 ####[facility] LABORATORYCLIA [id number] [place] [address] [place] Anion gap [Moles/Vol] 8 mmol/L Low 9-18 [facility] Comment on above: Order Comment: Speci men Type: BLOOD SPECIMENOrdering Facility: [facility] Address: [address] [address] Performed By: #### 2 4323-8 ####[facility] LABORATORYCLIA [id number] [place] [address] [place] AST [Catalytic activity/Vol] 13 U/L Normal 13-35 [facility] Comment on above: Order Comment: Speci men Type: BLOOD SPECIMENOrdering Facility: [facility] Address: [address] [place] [address] Performed By: #### 2 4323-8 ####[facility] LABORATORYCLIA [id number] [place] [address] [place] Bilirubin [Mass/Vol] 0.3 mg/dL Normal 0.2-1.3 [facility] Comment on above: Order Comment: Speci men Type: BLOOD SPECIMENOrdering Facility: [facility] Address: [address] [address] Performed By: #### 2 4323-8 ####CURRY LABORATORYCLIA [id number] [address] [place] Calcium [Mass/Vol] 8.7 mg/dL Normal 8.5-10.2 [facility] Comment on above: Order Comment: Speci men Type: BLOOD SPECIMENOrdering Facility: [facility] Address: [address] [address] Performed By: #### 2 4323-8 ####CURRY LABORATORYCLIA [id number] [address] [place] Chloride [Moles/Vol] 99 mmol/L Normal 97-105 [facility] Comment on above: Order Comment: Speci men Type: BLOOD SPECIMENOrdering Facility: [facility] Address: [address] [address] Performed By: #### 2 4323-8 ####CURRY LABORATORYCLIA [id number] [address] [place] CO2 [Moles/Vol] 25 mmol/L Normal 22-30 [facility] Comment on above: Order Comment: Farzana chairez Type: BLOOD SPECIMENOrdering Facility: [facility] Address: [address] [place] [address] Performed By: #### 2 4323-8 ####[facility] LABORATORYCLIA [id number] [address] [place] Creatinine [Mass/Vol] 0.78 mg/dL Normal 0.58-0.96 [facility] Comment on above: Order Comment: Farzana mihaela Type: BLOOD SPECIMENOrdering Facility: [facility] Address: [address] [place] [address] Performed By: #### 2 4323-8 ####[facility] LABORATORYCLIA [id number] [address] ESTIMATED GLOMERULAR FILTRATION RATE 97 mL/min/1.73m??? Normal >=60 [facility] Comment on above: Order Comment: Farzana chairez Type: BLOOD SPECIMENOrdering Facility: [facility] Address: [address] [place] [address] Result Comment: Shanel mated Glomerular Filtration Rate (eGFR) is calculated using the 2020 CKD-EPI creatinine equation. This equation utilizes serum creatinine, sex, and age as parameters. The creatinine assay has traceable calibration to isotope dilution-mass spectrometry. Refer to KDIGO guidelines for clinical interpretation. In patients with unstable renal function, e.g. those with acute kidney injury, the eGFR may not accurately reflect actual GFR. Performed By: #### 2 4323-8 ####CURRY LABORATORYCLIA [id number] [address] STATES [facility] Glucose [Mass/Vol] 389 mg/dL High 74-99 [facility] Comment on above: Order Comment: Farzana mihaela Type: BLOOD SPECIMENOrdering Facility: [facility] Address: [address] [place] [address] Result Comment: The [place] Diabetes Association (ADA) provides guidance for cutoff values for fasting glucose and random glucose. The ADA defines fasting as no caloric intake for at least 8 hours. Fasting plasma glucose results between 100 to 125 mg/dL indicate increased risk for diabetes (prediabetes). Fasting plasma glucose results greater than or equal to 126 mg/dL meet the criteria for diagnosis of diabetes. In the absence of unequivocal hyperglycemia, results should be confirmed by repeat testing. In a patient with classic symptoms of hyperglycemia or hyperglycemic crisis, random plasma glucose results greater than or equal to 200 mg/dL meet the criteria for diagnosis of diabetes. Reference: Standards of Medical Care in Diabetes 2016, [place] [employer] Association. Diabetes Care. 2016.39(Suppl 1). Performed By: #### 2 4323-8 ####CURRY LABORATORYCLIA [id number] [place] [address] [place] Potassium [Moles/Vol] 3.8 mmol/L Normal 3.7-5.1 [facility] Comment on above: Order Comment: Farzana chairez Type: BLOOD SPECIMENOrdering Facility: [facility] Address: [address] [place] [address] Performed By: #### 2 4323-8 ####CURRY LABORATORYCLIA [id number] [place] [address] [place] Protein [Mass/Vol] 6.6 g/dL Normal 6.3-8.0 [facility] Comment on above: Order Comment: Farzana chairez Type: BLOOD SPECIMENOrdering Facility: [facility] Address: [address] [place] [address] Performed By: #### 2 4323-8 ####CURRY LABORATORYCLIA [id number] [address] [place] Sodium [Moles/Vol] 132 mmol/L Low 136-144 [facility] Comment on above: Order Comment: Farzana chairez Type: BLOOD SPECIMENOrdering Facility: [facility] Address: [address] [address] Performed By: #### 2 4323-8 ####CURRY LABORATORYCLIA [id number] [address] [place] Urea nitrogen [Mass/Vol] 12 mg/dL Normal 7-21 [facility] Comment on above: Order Comment: Farzana chairez Type: BLOOD SPECIMENOrdering Facility: [facility] Address: [address] [place] [id number] Performed By: #### 2 4323-8 ####[facility] LABORATORYCLIA [id number] [place] [address] [facility] ED NOTEon 11-28-2022 ED NOTE HNO ID: [id number] Author: Beth Senior RN Service: ? Author Type: Registered Nurse Type: ED Notes Filed: 11/28/2022 7:50 PM Note Text: Discharge instructions d/w pt and at bedside. Stated understanding with no further questions for this nurse. Encouraged f/u with PCP and referring doctors given. Stated understanding. Prescription(S) were given keflex, roxicodone. Advised to finish round of doxycyline. Normal [facility] ED NOTE HNO ID: [id number] Author: Stephy Sweeney RN Service: Nursing Author Type: Registered Nurse Type: ED Notes Filed: 11/28/2022 4:05 PM Note Text: Medic at bedside to obtain PIV and labwork. Normal [facility] ED NOTE HNO ID: [id number] Author: Stephy Sweeney RN Service: Nursing Author Type: Registered Nurse Type: ED Notes Filed: 11/28/2022 3:55 PM Note Text: Pt was seen at an express care for a cyst to her right buttocks. Placed on doxycycline. Became larger in size (pt reports half-dollar size then and now baseball size); worsening pain, swelling, and redness. Instructed to come into the ED for worsening symptoms. Normal [facility] ED PROV NOTEon 11-28-2022 ED PROV NOTE HNO ID: [id number] Author: Maria Del Carmen Tsang MD Service: Emergency Medicine Author Type: Physician Type: ED Provider Notes Filed: 11/28/2022 8:05 PM Note Text: ED Provider Note Patient Name: Trice Zambraon : 1980 SERVICE DATE: 11/28/22 History No chief complaint on file. Patient is a 42-year-old female who presents to the emerged from today for possible gluteal abscess. Reports that she recently noted an area of swelling to the right glutes. Went to the doctor was diagnosed with intragluteal abscess. Started on doxycycline. Reports that the size is growing since initial diagnosis. Reports that she has had a similar problem in the past on the opposite side. Unfortunately that particular incident required extensive hospitalization and even ICU admission secondary to the worsening of the underlying abscess. Fever at home. Has been taking doxycycline. No nausea or vomiting. 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 PAST SURGICAL HISTORY Procedure Laterality Date ANESTH, SECTION x1 INCISION AND DRAINAGE ABSCESS COMPLICATED/MULTIPLE 04/25/2021 buttock abscess drainage LAPAROSCOPY SURG CHOLECYSTECTOMY 12/30/2015 PAST SURGICAL HISTORY OF 09/2021 ileostomy reversal FAMILY HISTORY Problem Relation Age of Onset Heart Mother Drug abuse Mother Stroke Father Hypertension Maternal Grandmother other (scleroderma) Paternal Grandmother Diabetes Maternal Uncle No Known Problems Son No Known Problems Daughter Social History Tobacco Use Smoking status: Never Smokeless tobacco: Never Vaping Use Vaping Use: Never used Substance and Sexual Activity Alcohol use: No Drug use: No Sexual activity: Yes Partners: Male ALLERGIES Allergen Reactions Metformin Diarrhea Occurred while on XR formulation Trulicity [Dulaglut* Vomiting Nausea/vomiting, diarrhea and epigastric pain. Review of Systems Constitutional: Negative for chills, diaphoresis, fatigue and fever. HENT: Negative for congestion, ear pain, sinus pain and sore throat. Eyes: Negative for photophobia, pain, redness and visual disturbance. Respiratory: Negative for cough, chest tightness and shortness of breath. Cardiovascular: Negative for chest pain, palpitations and leg swelling. Gastrointestinal: Negative for abdominal distention, abdominal pain, constipation, diarrhea, nausea and vomiting. Genitourinary: Negative for difficulty urinating, dysuria, flank pain, frequency and urgency. Musculoskeletal: Negative for back pain, neck pain and neck stiffness. Skin: Negative for color change, rash and wound. Left gluteal swelling redness Neurological: Negative for dizziness, syncope, light-headedness and headaches. Psychiatric/Behavioral: Negative for agitation, behavioral problems and confusion. Physical Exam Vitals [11/28/22 1544] BP Pulse Temp Temp src Resp SpO2 Weight Height 179/85 (!) 121 36.7 ?C (98.1 ?F) Oral 19 99 % 108.9 kg (240 lb) 1.727 m (5' 8) Physical Exam Vitals and nursing note reviewed. Constitutional: Appearance: She is well-developed. She is not diaphoretic. HENT: Head: Normocephalic and atraumatic. Right Ear: External ear normal. Left Ear: External ear normal. Eyes: General: No scleral icterus. Right eye: No discharge. Left eye: No discharge. Conjunctiva/sclera: Conjunctivae normal. Pupils: Pupils are equal, round, and reactive to light. Neck: Vascular: No JVD. Trachea: No tracheal deviation. Cardiovascular: Rate and Rhythm: Normal rate and regular rhythm. Heart sounds: Normal heart sounds. No murmur heard. No friction rub. No gallop. Pulmonary: Effort: Pulmonary effort is normal. No respiratory distress. Breath sounds: Normal breath sounds. No stridor. No wheezing or rales. Chest: Chest wall: No tenderness. Abdominal: General: Bowel sounds are normal. There is no distension. Palpations: Abdomen is soft. There is no mass. Tenderness: There is no abdominal tenderness. There is no guarding or rebound. Musculoskeletal: General: No tenderness or deformity. Normal range of motion. Cervical back: Normal range of motion and neck supple. Skin: General: Skin is warm. Capillary Refill: Capillary refill takes less than 2 seconds. Coloration: Skin is not pale. Findings: No rash. Neurological: Mental Status: She is alert and oriented to person, place, and time. Sensory: No sensory deficit. Motor: No abnormal muscle tone. Psychiatric: Mood and Affect: Mood normal. Behavior: Behavior normal. Thought Content: Thought content normal. Judgment: (more content not included)... Normal [facility] Gas and Carbon monoxide pane l (BldV)on 11-28-2022 BASE DEFICIT, VENOUS >-1 Normal -2-0 [facility] Comment on above: Order Comment: Speci men Type: VENOUS BLOOD SPECIMENOrdering Facility: [facility] Address: [address] [place] [phone] Performed By: #### 2 4344-4 ####[facility] RESPIRATORYCLIA [id number] [facility] [id number] [place] [address] [place] [address] Carboxyhemoglobin (BldV) [Mass fraction] 1.0 % Normal 0.0-2.0 [facility] Comment on above: Order Comment: Speci men Type: VENOUS BLOOD SPECIMENOrdering Facility: [facility] Address: [address] [place] [address] Result Comment: Carb oxyhemoglobin Reference Range for Smokers: 2.0-8.0% Performed By: #### 2 4344-4 ####[facility] RESPIRATORYIA [id number] [facility] RESPIRATORY [id number] [address] CO2 (BldV) [Partial pressure] 45 mm[Hg] Normal 42-55 [facility] Comment on above: Order Comment: Speci men Type: VENOUS BLOOD SPECIMENOrdering Facility: [facility] Address: [address] [place] [address] Performed By: #### 2 4344-4 ####[facility] RESPIRATORYCENTRAL [facility] [id number] [facility]PIR[facility] [id number] [address] CO2 adjusted to patient's actual temperature (BldV) [Partial pressure] Normal [facility] Comment on above: Order Comment: Speci men Type: VENOUS BLOOD SPECIMENOrdering Facility: [facility] Address: [address] [place] [address] Performed By: #### 2 4344-4 ####[facility]PIRATORYCENTRAL [facility] [id number] [facility]OS[facility]PIRAT[facility] [id number] [address] [address] HCO3 (Bld) [Moles/Vol] 25 mmol/L Normal 24-28 [facility] Comment on above: Order Comment: Speci men Type: VENOUS BLOOD SPECIMENOrdering Facility: [facility] Address: [address] [place] [address] Performed By: #### 2 4344-4 ####[facility] [id number] HOSP[facility] RESPIRATORY [id number] [address] Hemoglobin (Bld) [Mass/Vol] 13.4 g/dL Normal 11.5-15.5 [facility] Comment on above: Order Comment: Speci men Type: VENOUS BLOOD SPECIMENOrdering Facility: [facility] Address: [address] [address] Performed By: #### 2 4344-4 ####[facility] RESPIRATORYCLIA [id number] [facility]OS[facility] RESPIRATORY [id number] [address] [address] Lactate [Moles/Vol] 2.0 mmol/L Normal 0.5-2.2 [facility] Comment on above: Order Comment: Speci men Type: VENOUS BLOOD SPECIMENOrdering Facility: [facility] Address: [address] [address] Performed By: #### 2 4344-4 ####[facility] RESPIRATORYIA [id number] [facility]OSPITAL RESPIRATORY [id number] [address] [address] Methemoglobin (Bld) [Mass fraction] 1.0 % Normal 0.0-1.5 [facility] Comment on above: Order Comment: Speci men Type: VENOUS BLOOD SPECIMENOrdering Facility: [facility] Address: [address] [address] Performed By: #### 2 4344-4 ####[facility] RESPIRATORYIA [id number] HOSPITAL RESPIRATORY [id number] [address] [address] O2 THERAPY RA=Room Air Normal [facility] Comment on above: Order Comment: Speci men Type: VENOUS BLOOD SPECIMENOrdering Facility: [facility] Address: [address] Performed By: #### 2 4344-4 ####[facility] RESPIRATORYIA [id number] [facility]OSP[facility] RESPIRATORY [id number] [address] [address] Oxygen (BldV) [Partial pressure] mm[Hg] Low 35-45 [facility] Comment on above: Order Comment: Speci men Type: VENOUS BLOOD SPECIMENOrdering Facility: [facility] Address: [address] [address] Performed By: #### 2 4344-4 ####[facility] RESPIRATORYIA [id number] [facility]OS[facility] RESPIRATORY [id number] [place] [address] Oxygen adjusted to patient's actual temperature (BldV) [Partial pressure] Normal [facility] Comment on above: Order Comment: Speci men Type: VENOUS BLOOD SPECIMENOrdering Facility: [facility] Address: [address] [address] Performed By: #### 2 4344-4 ####[facility] RESPIRATORYIA [id number] [facility]OSP[facility] RESPIRAT[facility] [id number] [address] Oxyhemoglobin (BldV) [Mass fraction] 45 % Low 60-85 [facility] Comment on above: Order Comment: Speci men Type: VENOUS BLOOD SPECIMENOrdering Facility: [facility] Address: [address] [address] Performed By: #### 2 4344-4 ####[facility]PIRATORYCENTR[facility] [id number] [facility]OS[facility] RESPIRATORY [id number] [address] pH (BldV) 7.36 [pH] Normal 7.32-7.42 [facility] Comment on above: Order Comment: Speci men Type: VENOUS BLOOD SPECIMENOrdering Facility: [facility] Address: [address] [address] Performed By: #### 2 4344-4 ####[facility]PIRATORYCENTR[facility] [id number] [facility]OS[facility] RESPIRATORY [id number] [address] [address] pH adjusted to patient's actual temperature (BldV) Normal [facility] Comment on above: Order Comment: Speci men Type: VENOUS BLOOD SPECIMENOrdering Facility: [facility] Address: [address] [address] Performed By: #### 2 4344-4 ####[facility] RESPIRATORYCLIA [id number] [facility] RESPIRATORY [id number] [place] [address] Potassium [Moles/Vol] 3.7 mmol/L Normal 3.5-5.0 [facility] Comment on above: Order Comment: Speci men Type: VENOUS BLOOD SPECIMENOrdering Facility: [facility] Address: [address] [place] [address] Performed By: #### 2 4344-4 ####[facility] RESPIRATORYCLIA [id number] [facility]OS[facility] RESPIRATORY [id number] [address] [address] HCG QUAL BLDon 11-28-2022 HCG, QUALITATIVE Negative Normal Negative [facility] Comment on above: Order Comment: Speci men Type: BLOOD SPECIMENOrdering Facility: [facility] Address: [address] [address] Performed By: #### H CG ####[facility] LABORATORYCLIA [id number] [place] [address] [place] PT panel Coag (PPP)on 2022 INR Coag (PPP) [Relative time] 1.0 {INR} Normal 0.9-1.3 [facility] Comment on above: Order Comment: Speci men Type: BLOOD SPECIMENOrdering Facility: [facility] Address: [address] [facility]ENTERDave [place] [address] Result Comment: Kelli min K Antagonist (VKA) Therapeutic Range: INR 2 to 3 (Target INR of 2.5) Note: For patients treated with VKA drugs, such as warfarin, the [place] [employer] 2012 Guideline recommends a therapeutic INR range of 2 to 3 (target INR of 2.5). This recommendation includes high-risk patients with antiphospholipid syndrome with previous arterial or venous thromboembolism, current-generation mechanical or bioprosthetic aortic heart valve replacement. Note: Patients with mechanical aortic valve replacement and additional risk factors for thromboembolic events (atrial fibrillation, previous thromboembolism, LV dysfunction, hypercoagulable conditions) or an older generation mechanical AVR (i.e., ball in-Cage) or any mechanical MVR should have a INR therapeutic range of 2.5 to 3.5 (target INR of 3). Allison GH, et al. Chest 2012, 141:7S-47S Aravind RA et al. JAC 2017, 70: 252-289 Performed By: #### 1 4979-9, 15589-4 ####[facility] LABORATORYCLIA [id number] [address] [place] PT Coag (PPP) [Time] 9.8 s Normal 9.7-13.0 [facility] Comment on above: Order Comment: Speci men Type: BLOOD SPECIMENOrdering Facility: [facility] Address: [address] [place] [address] Performed By: #### 1 4979-9, 43549-6 ####CURRY LABORATORYCLIA [id number] [address] Urinalysis complete panel (U )on 11-28-2022 Bacteria LM.HPF (Urine sed) [#/Area] Few Abnormal None Seen [facility] Comment on above: Order Comment: Speci men Type: URINE SPECIMENOrdering Facility: [facility] Address: [address] [place] [address] Performed By: #### 2 4356-8 ####CURRY LABORATORYCLIA [id number] [address] Bilirubin Ql (U) Negative Normal Negative [facility] Comment on above: Order Comment: Speci men Type: URINE SPECIMENOrdering Facility: [facility] Address: [address] [place] [address] Performed By: #### 2 4356-8 ####CURRY LABORATORYCLIA [id number] [address] [place] Clarity (Unsp spec) Clear Normal Clear [facility] Comment on above: Order Comment: Speci men Type: URINE SPECIMENOrdering Facility: [facility] Address: [address] [place] [address] Performed By: #### 2 4356-8 ####CUR[facility] LABORATORYCLIA [id number] [address] Color (U) Yellow Normal Yellow [facility] Comment on above: Order Comment: Speci men Type: URINE SPECIMENOrdering Facility: [facility] Address: [address] [place] [address] Performed By: #### 2 4356-8 ####CURRY LABORATORYCLIA [id number] [address] Epithelial cells LM.HPF (Urine sed) [#/Area] Few Normal [facility] Comment on above: Order Comment: Speci men Type: URINE SPECIMENOrdering Facility: [facility] Address: [address] [place] [address] Performed By: #### 2 4356-8 ####CUR[facility] LABORATORYCLIA [id number] [address] Glucose Test strip (U) [Mass/Vol] 3+ Abnormal Negative [facility] Comment on above: Order Comment: Speci men Type: URINE SPECIMENOrdering Facility: [facility] Address: [address] [address] Performed By: #### 2 4356-8 ####CURRY LABORATORYCLIA [id number] [place] [address] [place] Hemoglobin Ql (U) Trace Normal Negative, Trace [facility] Comment on above: Order Comment: Speci men Type: URINE SPECIMENOrdering Facility: [facility] Address: [address] [place] [address] Performed By: #### 2 4356-8 ####CURRY LABORATORYCLIA [id number] [address] [place] Ketones Ql (U) Negative Normal Negative [facility] Comment on above: Order Comment: Speci men Type: URINE SPECIMENOrdering Facility: [facility] Address: [address] [place] [address] Performed By: #### 2 4356-8 ####CUR[facility] LABORATORYCLIA [id number] [address] Leukocyte esterase Test strip Ql (U) Negative Normal Negative [facility] Comment on above: Order Comment: Speci men Type: URINE SPECIMENOrdering Facility: [facility] Address: [address] [place] [address] Performed By: #### 2 4356-8 ####CUR[facility] LABORATORYCLIA [id number] [address] [place] Nitrite Ql (U) Negative Normal Negative [facility] Comment on above: Order Comment: Speci men Type: URINE SPECIMENOrdering Facility: [facility] Address: [address] [place] [address] Performed By: #### 2 4356-8 ####[facility] LABORATORYCLIA [id number] [address] [place] pH (U) 6.5 [pH] Normal 5.0-8.0 [facility] Comment on above: Order Comment: Speci men Type: URINE SPECIMENOrdering Facility: [facility] Address: [address] [place] [address] Performed By: #### 2 4356-8 ####[facility] LABORATORYCLIA [id number] [address] [place] Protein (U) [Mass/Vol] Negative Normal Negative [facility] Comment on above: Order Comment: Speci men Type: URINE SPECIMENOrdering Facility: [facility] Address: [address] [place] [address] Performed By: #### 2 4356-8 ####[facility] LABORATORYCLIA [id number] [place] [address] [place] RBC LM.HPF (Urine sed) [#/Area] 0-3 /HPF Normal 0-3 /HPF [facility] Comment on above: Order Comment: Speci men Type: URINE SPECIMENOrdering Facility: [facility] Address: [address] [place] [address] Performed By: #### 2 4356-8 ####[facility] LABORATORYCLIA [id number] [address] [place] Specific gravity (U) [Rel density] <=1.005 Low 1.005-1.030 [facility] Comment on above: Order Comment: Speci men Type: URINE SPECIMENOrdering Facility: [facility] Address: [address] [place] [address] Performed By: #### 2 4356-8 ####CURRY LABORATORYCLIA [id number] [address] Urobilinogen Ql (U) 0.2 EU/dL Normal 0.2-1.0 EU/dL [facility] Comment on above: Order Comment: Speci men Type: URINE SPECIMENOrdering Facility: [facility] Address: [address] [place] [address], [place] [address] Performed By: #### 2 [id number] ####CURRY LABORATORYCLIA [id number] [address] WBC LM.HPF (Urine sed) [#/Area] 0-5 /HPF Normal 0-5 /HPF [facility] Comment on above: Order Comment: Speci men Type: URINE SPECIMENOrdering Facility: [facility] Address: [place] [address] Performed By: #### 2 [id number] ####CURRY LABORATORYCLIA [id number] [place] [address] [place] aPTT PPPon 11-28-2022 aPTT Coag (PPP) [Time] 26.0 s Normal 23.0-32.4 [facility] Comment on above: Order Comment: Speci men Type: BLOOD SPECIMENOrdering Facility: [facility] Address: [place] [address] Performed By: #### 1 [id number], 72426-6 ####CURRY LABORATORYCLIA [id number] [place] [address] [place] UA DIP, URINE (POC)on 2021 BILIRUBIN UA (POCT) Negative Negative [facility] CLARITY UA (POCT) Cloudy [facility] COLOR UA (POCT) Yellow [facility] GLUCOSE UA (POCT) 500 mg/dL Abnormal Negative mg/dL [facility] HEMOGLOBIN/BLOOD UA (POCT) Negative Negative [facility] KETONE UA (POCT) Negative Negative mg/dL [facility] LEUKOCYTES UA (POCT) Trace Abnormal Negative [facility] NITRITE UA (POCT) Negative Negative [facility] PH UA (POCT) 6.0 4.5 - 8.0 [facility] Protein Ql (U) Negative Negative mg/dL [facility] SPECIFIC GRAVITY UA (POCT) 1.020 1.005 - 1.030 [facility] UROBILINOGEN UA (POCT) 0.2 E.U./dL Normal E.U./dL [facility] UA DIP, URINE (POC)on 2021 BILIRUBIN UA (POCT) Negative Negative [facility] CLARITY UA (POCT) Cloudy [facility] COLOR UA (POCT) Yellow [facility] GLUCOSE UA (POCT) >=1000 Abnormal Negative mg/dL [facility] HEMOGLOBIN/BLOOD UA (POCT) Small Abnormal Negative [facility] KETONE UA (POCT) Negative Negative mg/dL [facility] LEUKOCYTES UA (POCT) Moderate Abnormal Negative [facility] NITRITE UA (POCT) Positive Abnormal Negative [facility] PH UA (POCT) 5.5 4.5 - 8.0 [facility] Protein Ql (U) 30 mg/dL Abnormal Negative mg/dL [facility] SPECIFIC GRAVITY UA (POCT) 1.015 1.005 - 1.030 [facility] UROBILINOGEN UA (POCT) 0.2 E.U./dL Normal E.U./dL [facility] Absolute lymphocyte counton 06-13-2022 Lymphocytes Auto (Unsp spec) [#/Vol] 1.72 10*3/uL 0.83-4.51 [facility] Work Phone: Basophil percentageon 2021 Basophil percentage >100 SEEN /hpf 0-5 [facility] Work Phone: Basophils/100 WBC (Bld) 0.5 % 0-1 [facility] Work Phone: Bilirubin [Mass/Vol] 0.50 mg/dL 0.20-1.00 [facility] Work Phone: Comment on above: For patients on eltr ombopag therapy, use of Dimension [place] TBIL is not recommended. Chloride [Moles/Vol] 107 mmol/L 98-107 [facility] Work Phone: Eosinophils/100 WBC (Bld) 2.6 % 0-5 [facility] Work Phone: Glucose [Mass/Vol] 188 mg/dL 74-106 [facility] Work Phone: Comment on above: Fasting Glucose resu lt greater than or equal to 126 mg/dL suggests DIABETES MELLITUS per A.D.A. criteria. Neutrophils (Bld) [#/Vol] 7.5 10*3/uL 2.0-7.7 [facility] Work Phone: Neutrophils/100 WBC (Bld) 73.4 % 47-70 [facility] Work Phone: Potassium [Moles/Vol] 3.8 mmol/L 3.5-5.1 [facility]: Protein [Mass/Vol] 7.2 g/dL 6.4-8.2 [facility] Work Phone: Sodium [Moles/Vol] 139 mmol/L 136-145 [facility] Work Phone: WBC (Bld) [#/Vol] 10.1 10*3/uL 4.4-11.0 [facility] Work Phone: [phone] Bilirubin Test strip Ql (U)o n 06-13-2022 Bilirubin Ql (U) Negative Negative [facility] Work Phone: Blood erythrocytes count (nu mber/volume)on 06-13-2022 RBC (Bld) [#/Vol] 4.03 10*6/uL 4.2-5.4 [facility] Work Phone: Blood hemoglobin measurement (mass/volume)on 06-13-2022 Hemoglobin (Bld) [Mass/Vol] 12.2 g/dL 12.0-15.0 [facility] Work Phone: Blood lymphocytes/100 leukoc yteson 06-13-2022 Lymphocytes/100 WBC (Bld) 17.0 % 19-41 [facility] Work Phone: Blood monocytes/100 leukocyt eson 06-13-2022 Monocytes/100 WBC (Bld) 6.0 % 0-10 [facility] Work Phone: Blood platelet mean volumeon 06-13-2022 Platelet mean volume (Bld) [Entitic vol] 11.0 fL 6.2-12.0 [facility] Work Phone: [phone] Determination of erythrocyte mean corpuscular volume (MCV)on 06-13-2022 MCV (RBC) [Entitic vol] 88.6 fL 81-99 [facility] Work Phone: Hematocrit Auto (Bld) [Volum e fraction]on 06-13-2022 Hematocrit (Bld) [Volume fraction] 35.7 % 37-47 [facility] Work Phone: INR in Blood by Coagulation assayon 06-13-2022 INR Coag (Bld) [Relative time] 0.9 {INR} [facility] Work Phone: Ketones Test strip Ql (U)on 06-13-2022 Ketones Ql (U) Negative Negative [facility] Work Phone: Laboratory - Chemistry and C hemistry - challengeon 06-13-2022 ALP [Catalytic activity/Vol] 81 U/L 45-117 [facility] Work Phone: ALT [Catalytic activity/Vol] 23 U/L 13-56 [facility] Work Phone: CO2 [Moles/Vol] 26.0 mmol/L 21.0-32.0 [facility] Work Phone: Globulin (S) [Mass/Vol] 3.9 g/dL 2.2-4.2 [facility] Work Phone: Lipase [Catalytic activity/Vol] 65 U/L 73-393 [facility] Work Phone: Urea nitrogen/Creatinine [Mass ratio] 21.8 mg/mg 10-20 [facility] Work Phone: Laboratory - Coagulationon 0 06-13-2022 PT Coag (PPP) [Time] 12.1 s 11.7-14.9 [facility] Work Phone: Laboratory - Hematology and Cell countson 06-13-2022 Erythrocyte distribution width (RBC) [Entitic vol] 40.6 fL 35.1-43.9 [facility] Work Phone: Erythrocyte distribution width (RBC) [Ratio] 12.4 % 11.6-14.6 [facility] Work Phone: Immature granulocytes/100 WBC (Bld) 0.500 % 0.0-0.9 [facility] Work Phone: Comment on above: IG% - Immature Granu locytes (promyelocytes, myelocytes and metamyelocytes) > 1% indicates that a LEFT SHIFT is Present. MCH (RBC) [Entitic mass] 30.3 pg 27.0-32.0 [facility] Work Phone: Nucleated RBC/100 WBC (Bld) [Ratio] 0 % 0-5 [facility] Work Phone: MCHC Auto (RBC) [Mass/Vol]on 06-13-2022 MCHC (RBC) [Mass/Vol] 34.2 g/dL 32-36 [facility] Work Phone: Mucus LM Ql (Urine sed)on Mucus Ql (Urine sed) 0 SEEN /hpf [facility] Work Phone: Nitrite Test strip Ql (U)on 06-13-2022 Nitrite Ql (U) Positive Negative [facility] Work Phone: No Panel Informationon 06-13 Estimated Creatinine Clearance Calc 91.08 ml/min [facility] Work Phone: Estimated GFR (MDRD) Amer 98 mL/min >60 [facility] Work Phone: Comment on above: GFR Calc Estimated GFR (MDRD) Non-Af Amer 81 mL/min >60 [facility] Work Phone: Comment on above: Non- GFR Calc Platelets bldon 06-13-2022 Platelets (Bld) [#/Vol] 229 10*3/uL 150-450 [facility] Work Phone: Protein Test strip Ql (U)on 06-13-2022 Protein Ql (U) 30 mg/dl Negative [facility] Work Phone: [phone] Serum or plasma albumin boogie urement (mass/volume)on 06-13-2022 Albumin [Mass/Vol] 3.3 g/dL 3.2-5.0 [facility] Work Phone: Serum or plasma albumin/glob ulin mass ratioon 06-13-2022 Albumin/Globulin [Mass ratio] 0.8 {ratio} 0.9-2.4 [facility] Work Phone: Serum or plasma calcium boogie urement (mass/volume)on 06-13-2022 Calcium [Mass/Vol] 8.8 mg/dL 8.5-10.1 [facility] Work Phone: [phone] Serum or plasma creatinine m easurement (mass/volume)on 06-13-2022 Creatinine [Mass/Vol] 0.82 mg/dL 0.55-1.02 [facility] Work Phone: Comment on above: The validity of the calculated GFR & GFRAA in patients over 70 years has not been determined. Clinical correlation is essential. Serum or plasma urea nitroge n measurement (mass/volume)on 06-13-2022 Urea nitrogen [Mass/Vol] 18 mg/dL 7-18 [facility] Work Phone: [phone] Squamous epithelial cells de tection in urine sediment by light microscopyon 06-13-2022 Epithelial cells.squamous LM Ql (Urine sed) 0-5 SEEN /hpf 5-10 [facility] Work Phone: Thin prep Papanicolaou smear with manual screeningon 06-13-2022 Thin prep Papanicolaou smear with manual screening 11 U/L 15-37 [facility] Work Phone: [phone] Thin prep Papanicolaou smear with manual screening 6 5-15 [facility] Work Phone: Urine blood detectionon 08-0 RBC Ql (U) 250 /ul Negative [facility] Work Phone: RBC Ql (U) 0 SEEN /hpf 0-5 [facility] Work Phone: Urine clarityon 06-13-2022 Clarity (U) Clear Clear [facility] Work Phone: Urine color determinationon 06-13-2022 Color (U) Yellow Yellow [facility] Work Phone: Urine glucose detectionon Glucose Ql (U) Normal mg/dl Normal [facility] Work Phone: Urine leukocyte esterase det ection by dipstickon 06-13-2022 Leukocyte esterase Test strip Ql (U) 500 /ul Negative [facility] Work Phone: Urine pHon 06-13-2022 pH (U) 6.0 [pH] 5.0 - 8.0 [facility] Work Phone: Urine sediment bacteria coun t by microscopy (number/high power field)on 06-13-2022 Bacteria LM.HPF (Urine sed) [#/Area] 1 /[HPF] None Seen [facility] Work Phone: Urine specific gravity measu rementon 06-13-2022 Specific gravity (U) [Rel density] 1.010 1.002-1.030 [facility] Work Phone: Urobilinogen Auto test strip Ql (U)on 06-13-2022 Urobilinogen Ql (U) Normal mg/dl Normal [facility] Work Phone: GLUCOSE POCon 05-21-2022 Glucose [Mass/Vol] 122 mg/dL High 70 - 99 mg/dL [facility] Glucose [Mass/Vol] 159 mg/dL High 70 - 99 mg/dL [facility] Comment on above: Notified RNread back Glucose [Mass/Vol] 148 mg/dL High 70 - 99 mg/dL [facility] Interpretation and review of laboratory results Abnormal [facility] POC Sample Type VENO [facility] Test performed at address of the patient encounter. [facility] HCG ( test) Ql (U)O rdered By: Eder Greene on 05-21-2022 Beta HCG ( test) Ql Negative Negative [facility] Interpretation and review of laboratory results Normal [facility] HCG QUALITATIVE, URINEon Beta HCG ( test) Ql (U) Negative Normal Negative [facility] Comment on above: Performed By: #### U HCG #### [facility] (DEFAULT) [address] [place] [address] No Panel Informationon 05-21 Interpretation and review of laboratory results Abnormal [facility] POC Sample Type CAPBL [facility] Test performed at address of the patient encounter. [facility] US Unspecified body region d uring surgeryOrdered By: Unassigned Pacs on 05-21-2022 [facility] Work Phone: US Unspecified body region d uring surgeryon 05-21-2022 Radiology Study observation (narrative) [facility] MRI LIVER WO/W IVCONon 05-07 [facility] CBC W Auto Differential pane l (Bld)on 04-22-2022 Abs Immature Gran 0.03 k/uL <0.10 k/uL [facility] Basophils (Bld) [#/Vol] 0.05 10*3/uL <0.11 k/uL [facility] Basophils/100 WBC (Bld) 0.6 % [facility] Differential cell count method Nom (Bld) Auto [facility] Eosinophils (Bld) [#/Vol] 0.13 10*3/uL <0.46 k/uL [facility] Eosinophils/100 WBC (Bld) 1.6 % [facility] Erythrocyte distribution width (RBC) [Ratio] 13.2 % 11.5 - 15.0 % [facility] Hematocrit (Bld) [Volume fraction] 44.0 % 36.0 - 46.0 % [facility] Hemoglobin (Bld) [Mass/Vol] 13.0 g/dL 11.5 - 15.5 g/dL [facility] Immature Gran % 0.4 % [facility] Lymphocytes (Bld) [#/Vol] 2.18 10*3/uL 1.00 - 4.00 k/uL [facility] Lymphocytes/100 WBC (Bld) 26.9 % [facility] MCH (RBC) [Entitic mass] 29.1 pg 26.0 - 34.0 pg [facility] MCHC (RBC) [Mass/Vol] 29.5 g/dL Low 30.5 - 36.0 g/dL [facility] MCV (RBC) [Entitic vol] 98.4 fL 80.0 - 100.0 fL [facility] Monocytes (Bld) [#/Vol] 0.42 10*3/uL <0.87 k/uL [facility] Monocytes/100 WBC (Bld) 5.2 % [facility] Neutrophils (Bld) [#/Vol] 5.30 10*3/uL 1.45 - 7.50 k/uL [facility] Neutrophils/100 WBC (Bld) 65.3 % [facility] Nucleated RBC (Bld) [#/Vol] 10*3/uL <0.01 k/uL [facility] Nucleated RBC/100 WBC (Bld) [Ratio] 0.0 /100 WBC [facility] Platelet mean volume (Bld) [Entitic vol] 12.0 fL 9.0 - 12.7 fL [facility] Platelets (Bld) [#/Vol] 214 10*3/uL 150 - 400 k/uL [facility] RBC (Bld) [#/Vol] 4.47 10*6/uL 3.90 - 5.2 0 m/uL [facility] WBC (Bld) [#/Vol] 8.11 10*3/uL 3.70 - 11.00 k/uL [facility] Comprehensive metabolic 2000 panelon 04-22-2022 Albumin [Mass/Vol] 3.9 g/dL 3.9 - 4.9 g/dL [facility] ALP [Catalytic activity/Vol] 90 U/L 34 - 123 U/L [facility] ALT [Catalytic activity/Vol] 25 U/L 7 - 38 U/L [facility] Anion gap [Moles/Vol] 17 mmol/L 9 - 18 mmol/L [facility] AST [Catalytic activity/Vol] 19 U/L 13 - 35 U/L [facility] Bilirubin [Mass/Vol] 0.2 mg/dL 0.2 - 1 .3 mg/dL [facility] Calcium [Mass/Vol] 9.4 mg/dL 8.5 - 10. 2 mg/dL [facility] Chloride [Moles/Vol] 105 mmol/L 97 - 10 5 mmol/L [facility] CO2 [Moles/Vol] 22 mmol/L 22 - 30 mmol/L [facility] Creatinine [Mass/Vol] 0.71 mg/dL 0.58 - 0.96 mg/dL [facility] Estimated Glomerular Filtration Rate 110 mL/min/1.73m >=60 mL/min/1.73 m [facility] Glucose [Mass/Vol] 151 mg/dL High 74 - 99 mg/dL [facility] Potassium [Moles/Vol] 4.1 mmol/L 3.7 - 5.1 mmol/L [facility] Protein [Mass/Vol] 6.6 g/dL 6.3 - 8.0 g/dL [facility] Sodium [Moles/Vol] 144 mmol/L 136 - 144 mmol/L [facility] Urea nitrogen [Mass/Vol] 18 mg/dL 7 - 21 mg/dL [facility] CT ABDOMEN/PELVIS WITHOUT CO NTRASTon 03-17-2022 CT ABDOMEN/PELVIS WITHOUT CONTRAST EXAM: CT ABDOMEN/PELVIS WITHOUT CONTRAST COMPARISON: 05/12/2021 CLINICAL INDICATIONS: Post op discomfort/swelling at surgical site. 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 TECHNIQUE: CT scanning was performed through the abdomen and pelvis without contrast. PROTOCOL: Standard FINDINGS: Evaluation of the viscera and vascular structures is limited without intravenous contrast. LOWER THORAX: Unremarkable. LIVER: Suggestion of approximately 2 cm hypodense lesion at the dome in segment 8 (image 55), not seen on the prior exam. BILIARY: Cholecystectomy. PANCREAS: Unremarkable. SPLEEN: Unremarkable. ADRENAL GLANDS: Unremarkable. KIDNEYS/URETERS: Tiny nonobstructing right renal stones. PELVIC ORGANS/BLADDER: Uterine fundal fibroid. GI TRACT: Colonic sutures in the left lower quadrant. No bowel obstruction. PERITONEUM: No free air or fluid. LYMPH NODES: No enlarged lymph nodes. VESSELS: Unremarkable. BONES AND SOFT TISSUES: Bulging of fat through the prior ostomy defect with overlying 3.2 x 3.1 cm irregular fluid collection and adjacent granulation tissue extending to the skin surface. Defect measures 5 cm in the axial plane and 7.2 cm craniocaudally. No herniated bowel. 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 No herniated bowel. Suggestion of new 2 cm hypodense liver lesion, but limited by lack of intravenous contrast. Consider MRI for further evaluation. Ayan David M.D. This report has been electronically signed and verified by the Radiologist whose name is printed above. / This report contains privileged and confidential information and is intended solely for the use of the individual or entity to which it is addressed. If you are not the intended recipient of this report, you are hereby notified that any copying, distribution, dissemination or action taken in relation to the contents of this report is strictly prohibited and may be unlawful. If you have received this report in error, please notify the sender immediately at [phone] and permanently delete the original report and destroy any copies or printouts. Normal [facility] CT Abdomen and Pelvis WO con traston 03-17-2022 IMPRESSION: Herniation of omental fat through prior colostomy defect with small overlying irregular fluid collection and adjacent granulation tissue. No herniated bowel. Suggestion of new 2 cm hypodense liver lesion, but limited by lack of intravenous contrast. Consider MRI for further evaluation. Ayan David M.D. This report has been electronically signed and verified by the Radiologist whose name is printed above. / This report contains privileged and confidential information and is intended solely for the use of the individual or entity to which it is addressed. If you are not the intended recipient of this report, you are hereby notified that any copying, distribution, dissemination or action taken in relation to the contents of this report is strictly prohibited and may be unlawful. If you have received this report in error, please notify the sender immediately at [phone] and permanently delete the original report and destroy any copies or printouts. RADIOLOGY EXAM: CT ABDOMEN/PEL VIS WITHOUT CONTRAST COMPARISON: 05/12/2021 CLINICAL INDICATIONS: Post op discomfort/swelling at surgical site. 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 TECHNIQUE: CT scanning was performed through the abdomen and pelvis without contrast. PROTOCOL: Standard FINDINGS: Evaluation of the viscera and vascular structures is limited without intravenous contrast. LOWER THORAX: Unremarkable. LIVER: Suggestion of approximately 2 cm hypodense lesion at the dome in segment 8 (image 55), not seen on the prior exam. BILIARY: Cholecystectomy. PANCREAS: Unremarkable. SPLEEN: Unremarkable. ADRENAL GLANDS: Unremarkable. KIDNEYS/URETERS: Tiny nonobstructing right renal stones. PELVIC ORGANS/BLADDER: Uterine fundal fibroid. GI TRACT: Colonic sutures in the left lower quadrant. No bowel obstruction. PERITONEUM: No free air or fluid. LYMPH NODES: No enlarged lymph nodes. VESSELS: Unremarkable. BONES AND SOFT TISSUES: Bulging of fat through the prior ostomy defect with overlying 3.2 x 3.1 cm irregular fluid collection and adjacent granulation tissue extending to the skin surface. Defect measures 5 cm in the axial plane and 7.2 cm craniocaudally. No herniated bowel. RADIOLOGY Joann Botello M D - 03/17/2022 EXAM: CT ABDOMEN/PELVIS WITHOUT CONTRAST COMPARISON: 05/12/2021 CLINICAL INDICATIONS: Post op discomfort/swelling at surgical site. 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 TECHNIQUE: CT scanning was performed through the abdomen and pelvis without contrast. PROTOCOL: Standard FINDINGS: Evaluation of the viscera and vascular structures is limited without intravenous contrast. LOWER THORAX: Unremarkable. LIVER: Suggestion of approximately 2 cm hypodense lesion at the dome in segment 8 (image 55), not seen on the prior exam. BILIARY: Cholecystectomy. PANCREAS: Unremarkable. SPLEEN: Unremarkable. ADRENAL GLANDS: Unremarkable. KIDNEYS/URETERS: Tiny nonobstructing right renal stones. PELVIC ORGANS/BLADDER: Uterine fundal fibroid. GI TRACT: Colonic sutures in the left lower quadrant. No bowel obstruction. PERITONEUM: No free air or fluid. LYMPH NODES: No enlarged lymph nodes. VESSELS: Unremarkable. BONES AND SOFT TISSUES: Bulging of fat through the prior ostomy defect with overlying 3.2 x 3.1 cm irregular fluid collection and adjacent granulation tissue extending to the skin surface. Defect measures 5 cm in the axial plane and 7.2 cm craniocaudally. No herniated bowel. IMPRESSION IMPRESSION: Herniation of omental fat through prior colostomy defect with small overlying irregular fluid collection and adjacent granulation tissue. No herniated bowel. Suggestion of new 2 cm hypodense liver lesion, but limited by lack of intravenous contrast. Consider MRI for further evaluation. Ayan David M.D. This report has been electronically signed and verified by the Radiologist whose name is printed above. / This report contains privileged and confidential information and is intended solely for the use of the individual or entity to which it is addressed. If you are not the intended recipient of this report, you are hereby notified that any copying, distribution, dissemination or action taken in relation to the contents of this report is strictly prohibited and may be unlawful. If you have received this report in error, please notify the sender immediately at [phone] and permanently delete the original report and destroy any copies or printouts. [facility] Radiology Study observation (narrative) [facility] CT Abdomen and Pelvis WO con trastOrdered By: Joann Botello on 03-17-2022 [facility] CORONAVIRUS PCR [CCL]on 10-08 COVID 19 Result [facility]URE VARNISHER Negative Normal [facility] Comment on above: Result Comment: Nega tive for COVID19 (SARS CoV2) by PCR. This test was developed and its performance characteristics determined by [facility] Pathology and Laboratory Medicine [place]. This test has been authorized by FDA under an Emergency Use Authorization (EUA). This test has been validated in accordance with the FDA's Guidance Document Policy for Diagnostics Testing in Laboratories Certified to Perform High Complexity Testing under CLIA prior to Emergency use Authorization for Coronavirus Disease 2019 during the Public Health Emergency issued on January 05, 2020. [id number] [place] [address] Rohan Morales III, M.D. [id number] Performed By: #### [id number] #### [address] [address] COVID 19 Source [facility]URE VARNISHER Nasopharyngeal Swab Normal [facility] Comment on above: Result Comment: Leon ected on 10/25 AT 1338: Previously reported as ARMATURE VARNISHER Performed By: #### [id number] #### [address] [address] Coronavirus 2019on 0 COVID 19 Result [facility]MATURE VARNISHER Normal Negative for COVID19 (SARS CoV2) by PCR. [facility] Comment on above: Result Comment: Nega tive for This test was developed and its performance characteristics determined by [facility] Pathology and Laboratory Medicine [place]. This test has been authorized by FDA under an Emergency Use Authorization (EUA). This test has been validated in accordance with the FDA's Guidance Document Policy for Diagnostics Testing in Laboratories Certified to Perform High Complexity Testing under CLIA prior to Emergency use Authorization for Coronavirus Disease 2019 during the Public Health Emergency issued on January 05, 2020. COVID19 (SARS This test was developed and its performance characteristics determined by [facility]'s [facility] [place]. This test has been authorized by FDA under an Emergency Use Authorization (EUA). This test has been validated in accordance with the FDA's Guidance Document Policy for Diagnostics Testing in Laboratories Certified to Perform High Complexity Testing under CLIA prior to Emergency use Authorization for Coronavirus Disease 2019 during the Public Health Emergency issued on January 05, 2020. CoV2) by PCR. This test was developed and its performance characteristics determined by [facility]'s [facility] [place]. This test has been authorized by FDA under an Emergency Use Authorization (EUA). This test has been validated in accordance with the FDA's Guidance Document Policy for Diagnostics Testing in Laboratories Certified to Perform High Complexity Testing under CLIA prior to Emergency use Authorization for Coronavirus Disease 2019 during the Public Health Emergency issued on January 05, 2020. Coronavirus 2019on 0 COVID 19 Source [facility] Comment on above: Result Comment: Naso pharyngeal Corrected on 10/25 AT 1338: Previously reported as [employer] [facility] Swab Corrected on 10/25 AT 1338: Previously reported as [facility] Vital Signs Date Time Vital Sign Value Performing Clinician Facility 10-22-2024 07:44-0500 Diastolic blood pressure 85 mm[Hg] Jean Claude Huitron MD Work Phone: [facility] Comment on above: jacob bp average 10-22-2024 07:44-0500 Systolic blood pressure 141 mm[Hg] Jean Claude Huitron MD Work Phone: [facility] Comment on above: jacob bp average 10-22-2024 07:31-0500 Body height 172.7 cm Jean Claude Huitron MD Work Phone: [facility] 10-22-2024 07:31-0500 Body mass index (BMI) [Ratio] 36.34 kg/m2 Jean Claude Huitron MD Work Phone: [facility] 10-22-2024 07:31-0500 Body weight 108.41 kg Jean Claude Huitron MD Work Phone: [facility] 10-22-2024 07:31-0500 Heart rate 94 /min Jean Claude Huitron MD Work Phone: [facility] 10-22-2024 07:31-0500 Respiratory rate 12 /min Jean Claude Huitron MD Work Phone: [facility] 10-22-2024 07:31-0500 SaO2% (BldA) [Mass fraction] 98 % Jean Claude Huitron MD Work Phone: [facility] 09-25-2024 07:24-0500 Body mass index (BMI) [Ratio] 37.07 kg/m2 Irlanda Podlogar MEDICAL RECORDS TECHNICIAN.GANDY DANCER Work Phone: [facility] 09-25-2024 07:24-0500 Body weight 110.6 kg Irlanda Podlogar MEDICAL RECORDS TECHNICIAN.GANDY DANCER Work Phone: [facility] 09-25-2024 07:24-0500 Diastolic blood pressure 88 mm[Hg] Irlanda Podlogar MEDICAL RECORDS TECHNICIAN.GANDY DANCER Work Phone: [facility] 09-25-2024 07:24-0500 Heart rate 82 /min Irlanda Podlogar MEDICAL RECORDS TECHNICIAN.GANDY DANCER Work Phone: [facility] 09-25-2024 07:24-0500 Respiratory rate 16 /min Irlanda Podlogar MEDICAL RECORDS TECHNICIAN.GANDY DANCER Work Phone: [facility] 09-25-2024 07:24-0500 SaO2% (BldA) [Mass fraction] 96 % Irlanda Podlogar MEDICAL RECORDS TECHNICIAN.GANDY DANCER Work Phone: [facility] 09-25-2024 07:24-0500 Systolic blood pressure 136 mm[Hg] Irlanda Hogan APRN.GANDY DANCER Work Phone: [facility] 09-16-2024 10:44-0500 Body mass index (BMI) [Ratio] 36.84 kg/m2 Rony Chávez APRN.GANDY DANCER Work Phone: [facility] 09-16-2024 10:44-0500 Body temperature 98.6 [degF] Rony Chávez APRN.GANDY DANCER Work Phone: [facility] 09-16-2024 10:44-0500 Body weight 109.9 kg Rony Chávez APRN.GANDY DANCER Work Phone: [facility] 09-16-2024 10:44-0500 Diastolic blood pressure 80 mm[Hg] Rony Chávez APRN.GANDY DANCER Work Phone: [facility] 09-16-2024 10:44-0500 Heart rate 95 /min Rony Chávez APRN.GANDY DANCER Work Phone: [facility] 09-16-2024 10:44-0500 Respiratory rate 21 /min Rony Chávez APRN.GANDY DANCER Work Phone: [facility] 09-16-2024 10:44-0500 SaO2% (BldA) [Mass fraction] 96 % Rony Chávez APRN.GANDY DANCER Work Phone: [facility] 09-16-2024 10:44-0500 Systolic blood pressure 130 mm[Hg] Rony Chávez APRN.GANDY DANCER Work Phone: [facility] 07-11-2024 13:57-0400 Body mass index (BMI) [Ratio] 37.54 kg/m2 Letitia Odell APRN.GANDY DANCER Work Phone: [facility] 07-11-2024 13:57-0400 Body temperature 98.01 [degF] Letitia Odell APRN.GANDY DANCER Work Phone: [facility] 07-11-2024 13:57-0400 Body weight 112 kg Letitia Praisler-Wood MEDICAL RECORDS TECHNICIAN.GANDY DANCER Work Phone: [facility] 07-11-2024 13:57-0400 Diastolic blood pressure 82 mm[Hg] Letitia Praisler-Wood MEDICAL RECORDS TECHNICIAN.GANDY DANCER Work Phone: [facility] 07-11-2024 13:57-0400 Heart rate 88 /min Letitia Praisler-Wood MEDICAL RECORDS TECHNICIAN.GANDY DANCER Work Phone: [facility] 07-11-2024 13:57-0400 Respiratory rate 18 /min Letitia Praisler-Wood MEDICAL RECORDS TECHNICIAN.GANDY DANCER Work Phone: [facility] 07-11-2024 13:57-0400 SaO2% (BldA) [Mass fraction] 98 % Letitia Praisler-Wood MEDICAL RECORDS TECHNICIAN.GANDY DANCER Work Phone: [facility] 07-11-2024 13:57-0400 Systolic blood pressure 128 mm[Hg] Letitia Praisler-Wood MEDICAL RECORDS TECHNICIAN.GANDY DANCER Work Phone: [facility] 05-28-2024 15:08-04[address] Pressure Cuff Size DR RIKI COATES MD [facility] 05-28-2024 15:08-[address] RIKI COATES MD [facility] 05-28-2024 15:08-[address] RIKI COATES MD [facility] 05-28-2024 15:08-0400 Body height 172.[address] RIKI COATES MD [facility] 05-28-2024 15:08-0400 Body temperature 97.16 [degF] DR RIKI COATES MD [facility] 05-28-2024 15:08-0400 Body weight [address] RIKI COATES MD [facility] 05-28-2024 15:08-0400 Diastolic Blood Pressure Non-Invasive 104 mm[Hg] DR RIKI COATES MD [facility] 05-28-2024 15:08-0400 Heart rate 86 /min DR RIKI COATES MD [facility] 05-28-2024 15:08-0400 Respiratory rate 18 /min DR RIKI COATES MD [facility] 05-28-2024 15:08-0400 Systolic Blood Pressure Non-Invasive 172 mm[Hg] DR RIKI COATES MD [facility] 04-06-2024 07:50-0400 Body mass index (BMI) [Ratio] 38.35 kg/m2 Jean Claude Huitron MD Work Phone: [facility] 04-06-2024 07:50-0400 Body weight 114.4 kg Jean Claude Huitron MD Work Phone: [facility] 04-06-2024 07:50-0400 Diastolic blood pressure 80 mm[Hg] Jean Claude Huitron MD Work Phone: [facility] 04-06-2024 07:50-0400 Heart rate 80 /min Jean Claude Huitron MD Work Phone: [facility] 04-06-2024 07:50-0400 Respiratory rate 16 /min Jean Claude Huitron MD Work Phone: [facility] 04-06-2024 07:50-0400 SaO2% (BldA) [Mass fraction] 98 % Jean Claude Huitron MD Work Phone: [facility] 04-06-2024 07:50-0400 Systolic blood pressure 136 mm[Hg] Jean Claude Huitron MD Work Phone: [facility] 09-30-2023 14:00-0500 Diastolic Blood Pressure Non-Invasive 74 mm[Hg] CAPRICE MONTANO MD [facility] 09-30-2023 14:00-0500 Heart rate 78 /min CAPRICE MONTANO MD [facility] 09-30-2023 14:00-0500 Systolic Blood Pressure Non-Invasive 126 mm[Hg] CAPRICE MONTANO MD [facility] 09-30-2023 12:09-0500 Body height 173 cm CAPRICE MONTANO MD [facility] 09-30-2023 12:09-0500 Body temperature 98.78 [degF] CAPRICE MONTANO MD [facility] 09-30-2023 12:09-0500 Body weight 104.5 kg CAPRICE MONTANO MD [facility] 09-30-2023 12:09-0500 Diastolic Blood Pressure Non-Invasive 85 mm[Hg] CAPRICE MONTANO MD [facility] 09-30-2023 12:09-0500 Heart rate 100 /min CAPRICE MONTANO MD [facility] 09-30-2023 12:09-0500 Respiratory rate 16 /min CAPRICE MONTANO MD [facility] 09-30-2023 12:09-0500 Systolic Blood Pressure Non-Invasive 130 mm[Hg] CAPRICE MONTANO MD [facility] 09-22-2023 18:02-0500 Body height 172 cm MYA MYERS MD [facility] 09-22-2023 18:02-0500 Body temperature 99.14 [degF] MYA MYERS MD [facility] 09-22-2023 18:02-0500 Body weight 104 kg MYA MYERS MD [facility] 09-22-2023 18:02-0500 Diastolic Blood Pressure Non-Invasive 87 mm[Hg] MYA MYERS MD [facility] 09-22-2023 18:02-0500 Heart rate 105 /min MYA MYERS MD [facility] 09-22-2023 18:02-0500 Respiratory rate 20 /min MYA MYERS MD [facility] 09-22-2023 18:02-0500 Systolic Blood Pressure Non-Invasive 143 mm[Hg] MYA MYERS MD [facility] 06-03-2023 11:10-0400 Body weight 109.32 kg Jean Claude Huitron MD Work Phone: [facility] 06-03-2023 11:10-0400 Diastolic blood pressure 78 mm[Hg] Jean Claude Huitron MD Work Phone: [facility] 06-03-2023 11:10-0400 Heart rate 80 /min Jean Claude Huitron MD Work Phone: [facility] 06-03-2023 11:10-0400 Respiratory rate 16 /min Jean Claude Huitron MD Work Phone: [facility] 06-03-2023 11:10-0400 Systolic blood pressure 128 mm[Hg] Jean Claude Huitron MD Work Phone: [facility] 04-13-2023 19:54-0400 Diastolic blood pressure 89 mm[Hg] [facility] 04-13-2023 19:54-0400 Heart rate 102 /min [facility] 04-13-2023 19:54-0400 Respiratory rate 16 /min [facility] 04-13-2023 19:54-0400 SaO2% (BldA) [Mass fraction] 99 % [facility] 04-13-2023 19:54-0400 Systolic blood pressure 142 mm[Hg] [facility] 04-13-2023 17:27-0400 Body height 172.72 cm [facility] 04-13-2023 17:27-0400 Body mass index (BMI) [Ratio] 80.6 kg/m2 [facility] 04-13-2023 17:27-0400 Body temperature 97.5 [degF] [facility] 04-13-2023 17:27-0400 Body weight 240.7 kg [facility] 04-05-2023 09:21-0400 Body temperature 98.01 [degF] Letitia Praisler-Wood MEDICAL RECORDS TECHNICIAN.GANDY DANCER Work Phone: [facility] 04-05-2023 09:21-0400 Body weight 107.59 kg Letitia Praisler-Wood MEDICAL RECORDS TECHNICIAN.GANDY DANCER Work Phone: [facility] 04-05-2023 09:21-0400 Diastolic blood pressure 82 mm[Hg] Letitia Praisler-Wood MEDICAL RECORDS TECHNICIAN.GANDY DANCER Work Phone: [facility] 04-05-2023 09:21-0400 Heart rate 98 /min Letitia Praisler-Wood MEDICAL RECORDS TECHNICIAN.GANDY DANCER Work Phone: [facility] 04-05-2023 09:21-0400 Respiratory rate 16 /min Letitia Praisler-Wood MEDICAL RECORDS TECHNICIAN.GANDY DANCER Work Phone: [facility] 04-05-2023 09:21-0400 SaO2% (BldA) [Mass fraction] 98 % Letitia Praisler-Wood MEDICAL RECORDS TECHNICIAN.GANDY DANCER Work Phone: [facility] 04-05-2023 09:21-0400 Systolic blood pressure 126 mm[Hg] Letitia Praisler-Wood MEDICAL RECORDS TECHNICIAN.GANDY DANCER Work Phone: [facility] 02-27-2023 15:04-0400 Body weight 110.68 kg Bobbi Older MEDICAL RECORDS TECHNICIAN.GANDY DANCER Work Phone: [facility] 02-27-2023 15:04-0400 Diastolic blood pressure 78 mm[Hg] Bobbi Older MEDICAL RECORDS TECHNICIAN.GANDY DANCER Work Phone: [facility] 02-27-2023 15:04-0400 Heart rate 98 /min Bobbi Older MEDICAL RECORDS TECHNICIAN.GANDY DANCER Work Phone: [facility] 02-27-2023 15:04-0400 Respiratory rate 16 /min Bobib Older MEDICAL RECORDS TECHNICIAN.GANDY DANCER Work Phone: [facility] 02-27-2023 15:04-0400 SaO2% (BldA) [Mass fraction] 98 % Bobbi Older MEDICAL RECORDS TECHNICIAN.GANDY DANCER Work Phone: [facility] 02-27-2023 15:04-0400 Systolic blood pressure 128 mm[Hg] Bobbi Older MEDICAL RECORDS TECHNICIAN.GANDY DANCER Work Phone: [facility] 01-14-2023 08:12-0500 Body weight 109.5 kg Jean Claude Huitron MD Work Phone: [facility] 01-14-2023 08:12-0500 Diastolic blood pressure 78 mm[Hg] Jean Claude Huitron MD Work Phone: [facility] 01-14-2023 08:12-0500 Heart rate 87 /min Jean Claude Huitron MD Work Phone: [facility] 01-14-2023 08:12-0500 Respiratory rate 16 /min Jean Claude Huitron MD Work Phone: [facility] 01-14-2023 08:12-0500 SaO2% (BldA) [Mass fraction] 97 % Jean Claude Huitron MD Work Phone: [facility] 01-14-2023 08:12-0500 Systolic blood pressure 128 mm[Hg] Jean Claude Huitron MD Work Phone: [facility] 12-02-2022 15:36-0500 Body weight 111.13 kg Jean Claude Huitron MD Work Phone: [facility] 12-02-2022 15:36-0500 Diastolic blood pressure 80 mm[Hg] Jean Claude Huitron MD Work Phone: [facility] 12-02-2022 15:36-0500 Heart rate 90 /min Jean Claude Huitron MD Work Phone: [facility] 12-02-2022 15:36-0500 Respiratory rate 16 /min Jean Claude Huitron MD Work Phone: [facility] 12-02-2022 15:36-0500 SaO2% (BldA) [Mass fraction] 99 % Jean Claude Huitron MD Work Phone: [facility] 12-02-2022 15:36-0500 Systolic blood pressure 138 mm[Hg] Jean Claude Huitron MD Work Phone: [facility] 11-25-2022 13:39-0500 Body temperature 98.2 [degF] Letitia Praisler-Wood MEDICAL RECORDS TECHNICIAN.GANDY DANCER Work Phone: [facility] 11-25-2022 13:39-0500 Body weight 109.32 kg Letitia Praisler-Wood MEDICAL RECORDS TECHNICIAN.GANDY DANCER Work Phone: [facility] 11-25-2022 13:39-0500 Diastolic blood pressure 98 mm[Hg] Letitia Praisler-Wood MEDICAL RECORDS TECHNICIAN.GANDY DANCER Work Phone: [facility] 11-25-2022 13:39-0500 Heart rate 120 /min Letitia Praisler-Wood MEDICAL RECORDS TECHNICIAN.GANDY DANCER Work Phone: [facility] 11-25-2022 13:39-0500 Respiratory rate 21 /min Letitia Praisler-Wood MEDICAL RECORDS TECHNICIAN.GANDY DANCER Work Phone: [facility] 11-25-2022 13:39-0500 SaO2% (BldA) [Mass fraction] 97 % Letitia Praisler-Wood MEDICAL RECORDS TECHNICIAN.GANDY DANCER Work Phone: [facility] 11-25-2022 13:39-0500 Systolic blood pressure 128 mm[Hg] Letitia Praisler-Wood MEDICAL RECORDS TECHNICIAN.GANDY DANCER Work Phone: [facility] 08-30-2022 09:13-0400 Diastolic blood pressure 86 mm[Hg] [facility] Work Phone: 08-30-2022 09:13-0400 Heart rate 99 /min [facility] Work Phone: 08-30-2022 09:13-0400 Respiratory rate 16 /min [facility] Work Phone: 08-30-2022 09:13-0400 SaO2% (BldA) [Mass fraction] 98 % [facility] Work Phone: 08-30-2022 09:13-0400 Systolic blood pressure 148 mm[Hg] [facility] Work Phone: 08-30-2022 07:59-0400 Body height 172.72 cm [facility] Work Phone: 08-30-2022 07:59-0400 Body mass index (BMI) [Ratio] 40.9 kg/m2 [facility] Work Phone: 08-30-2022 07:59-0400 Body temperature 98.3 [degF] [facility] Work Phone: 08-30-2022 07:59-0400 Body weight 122.1 kg [facility] Work Phone: 07-14-2022 08:00-0400 Body temperature 97.81 [degF] Irlanda Podlogar MEDICAL RECORDS TECHNICIAN.GANDY DANCER Work Phone: [facility] 07-14-2022 08:00-0400 Body weight 111.4 kg Irlanda Podlogar MEDICAL RECORDS TECHNICIAN.GANDY DANCER Work Phone: [facility] 07-14-2022 08:00-0400 Diastolic blood pressure 84 mm[Hg] Irlanda Podlogar MEDICAL RECORDS TECHNICIAN.GANDY DANCER Work Phone: [facility] 07-14-2022 08:00-0400 Heart rate 95 /min Irlanda Greenelogar MEDICAL RECORDS TECHNICIAN.GANDY DANCER Work Phone: [facility] 07-14-2022 08:00-0400 SaO2% (BldA) [Mass fraction] 100 % Irlanda Podlogar MEDICAL RECORDS TECHNICIAN.GANDY DANCER Work Phone: [facility] 07-14-2022 08:00-0400 Systolic blood pressure 122 mm[Hg] Irlanda Podlogar MEDICAL RECORDS TECHNICIAN.GANDY DANCER Work Phone: [facility] 07-07-2022 10:59-0400 Body temperature 97.5 [degF] Irlanda Podlogar MEDICAL RECORDS TECHNICIAN.GANDY DANCER Work Phone: [facility] 07-07-2022 10:59-0400 Body weight 110.5 kg Irlanda Podlogar MEDICAL RECORDS TECHNICIAN.GANDY DANCER Work Phone: [facility] 07-07-2022 10:59-0400 Diastolic blood pressure 76 mm[Hg] Irlanda Podlogar MEDICAL RECORDS TECHNICIAN.GANDY DANCER Work Phone: [facility] 07-07-2022 10:59-0400 Heart rate 101 /min Irlanda Podlogar MEDICAL RECORDS TECHNICIAN.GANDY DANCER Work Phone: [facility] 07-07-2022 10:59-0400 Respiratory rate 16 /min Irlanda Podlogar MEDICAL RECORDS TECHNICIAN.GANDY DANCER Work Phone: [facility] 07-07-2022 10:59-0400 SaO2% (BldA) [Mass fraction] 100 % Irlanda Podlogar MEDICAL RECORDS TECHNICIAN.GANDY DANCER Work Phone: [facility] 07-07-2022 10:59-0400 Systolic blood pressure 128 mm[Hg] Irlanda Podlogar MEDICAL RECORDS TECHNICIAN.GANDY DANCER Work Phone: [facility] 06-13-2022 16:21-0400 Diastolic blood pressure 90 mm[Hg] [facility] Work Phone: 06-13-2022 16:21-0400 Heart rate 88 /min [facility] Work Phone: 06-13-2022 16:21-0400 Respiratory rate 16 /min [facility] Work Phone: 06-13-2022 16:21-0400 SaO2% (BldA) [Mass fraction] 97 % [facility] Work Phone: 06-13-2022 16:21-0400 Systolic blood pressure 142 mm[Hg] [facility] Work Phone: 06-13-2022 10:42-0400 Body height 172.72 cm [facility] Work Phone: 06-13-2022 10:42-0400 Body mass index (BMI) [Ratio] 36.5 kg/m2 [facility] Work Phone: 06-13-2022 10:42-0400 Body temperature 97.6 [degF] [facility] Work Phone: 06-13-2022 10:42-0400 Body weight 108.86 kg [facility] Work Phone: 06-08-2022 11:20-0400 Body height 172.7 cm Joann Flower MEDICAL RECORDS TECHNICIAN-GANDY DANCER Work Phone: [facility] 06-08-2022 11:20-0400 Body mass index (BMI) [Ratio] 37.21 kg/m2 Joann Flower MEDICAL RECORDS TECHNICIAN-GANDY DANCER Work Phone: [facility] 06-08-2022 11:20-0400 Body temperature 98.2 [degF] Joann Flower MEDICAL RECORDS TECHNICIAN-GANDY DANCER Work Phone: [facility] 06-08-2022 11:20-0400 Body weight 111 kg Joann Flower MEDICAL RECORDS TECHNICIAN-GANDY DANCER Work Phone: [facility] 06-08-2022 11:20-0400 Diastolic blood pressure 80 mm[Hg] Joann Flower MEDICAL RECORDS TECHNICIAN-GANDY DANCER Work Phone: [facility] 06-08-2022 11:20-0400 Heart rate 86 /min Joann Flower MEDICAL RECORDS TECHNICIAN-GANDY DANCER Work Phone: [facility] 06-08-2022 11:20-0400 SaO2% (BldA) [Mass fraction] 98 % Joann Flower MEDICAL RECORDS TECHNICIAN-GANDY DANCER Work Phone: [facility] 06-08-2022 11:20-0400 Systolic blood pressure 139 mm[Hg] Joann Flower MEDICAL RECORDS TECHNICIAN-GANDY DANCER Work Phone: [facility] 05-21-2022 11:45-0400 Body temperature 98.01 [degF] Roxana Moore MD Work Phone: [facility] 05-21-2022 11:45-0400 Diastolic blood pressure 69 mm[Hg] Roxana Moore MD Work Phone: [facility] 05-21-2022 11:45-0400 Heart rate 98 /min Roxana Moore MD Work Phone: [facility] 05-21-2022 11:45-0400 Respiratory rate 13 /min Roxana Moore MD Work Phone: [facility] 05-21-2022 11:45-0400 SaO2% (BldA) [Mass fraction] 97 % Roxana Moore MD Work Phone: [facility] 05-21-2022 11:45-0400 Systolic blood pressure 134 mm[Hg] Roxana Moore MD Work Phone: [facility] 04-22-2022 13:09-0400 Body height 168.3 cm Jean Claude Huitron MD Work Phone: [facility] 04-22-2022 13:09-0400 Body temperature 97.7 [degF] Jean Claude Huitron MD Work Phone: [facility] 04-22-2022 13:09-0400 Body weight 107.59 kg Jean Claude Huitron MD Work Phone: [facility] 04-22-2022 13:09-0400 Diastolic blood pressure 84 mm[Hg] Jean Claude Huitron MD Work Phone: [facility] 04-22-2022 13:09-0400 Heart rate 95 /min Jean Claude Huitron MD Work Phone: [facility] 04-22-2022 13:09-0400 Respiratory rate 16 /min Jean Claude Huitron MD Work Phone: [facility] 04-22-2022 13:09-0400 SaO2% (BldA) [Mass fraction] 98 % Jean Claude Huitron MD Work Phone: [facility] 04-22-2022 13:09-0400 Systolic blood pressure 118 mm[Hg] Jean Claude Huitron MD Work Phone: [facility] 04-01-2022 08:54-0400 Body height 172.7 cm Roxana Moore MD Work Phone: [facility] 04-01-2022 08:54-0400 Body mass index (BMI) [Ratio] 35.58 kg/m2 Roxana Moore MD Work Phone: [facility] 04-01-2022 08:54-0400 Body weight 106.14 kg Roxana Moore MD Work Phone: [facility] 04-01-2022 08:54-0400 Diastolic blood pressure 92 mm[Hg] Roxana Moore MD Work Phone: [facility] 04-01-2022 08:54-0400 Heart rate 93 /min Roxana Moore MD Work Phone: [facility] 04-01-2022 08:54-0400 Systolic blood pressure 143 mm[Hg] Roxana Moore MD Work Phone: [facility] 03-18-2022 09:52-0400 Body height 172.7 cm Kecia Carvalho MD Work Phone: [facility] 03-18-2022 09:52-0400 Body mass index (BMI) [Ratio] 35.43 kg/m2 Kecia Cravalho MD Work Phone: [facility] 03-18-2022 09:52-0400 Body weight 105.69 kg Kecia Carvalho MD Work Phone: [facility] 03-18-2022 09:52-0400 Diastolic blood pressure 72 mm[Hg] Kecia Carvalho MD Work Phone: [facility] 03-18-2022 09:52-0400 Heart rate 82 /min Kecia Carvalho MD Work Phone: [facility] 03-18-2022 09:52-0400 Systolic blood pressure 143 mm[Hg] Kecia Carvalho MD Work Phone: [facility] 06-02-2021 12:14-0400 Body height 172.7 cm Trace Bailey MD Work Phone: [facility] 06-02-2021 12:14-0400 Body mass index (BMI) [Ratio] 30.38 kg/m2 Trace Bailey MD Work Phone: [phone] [place] [address] 06-02-2021 12:14-0400 Body temperature 98.1 [degF] Trace Bailey MD Work Phone: [facility] 06-02-2021 12:14-0400 Body weight 90.63 kg Trace Bailey MD Work Phone: [facility] 06-02-2021 12:14-0400 Diastolic blood pressure 68 mm[Hg] Trace Bailey MD Work Phone: [facility] 06-02-2021 12:14-0400 Heart rate 99 /min Trace Bailey MD Work Phone: [facility] 06-02-2021 12:14-0400 Systolic blood pressure 125 mm[Hg] Trace Bailey MD Work Phone: [facility] Encounters Encounter Date Encounter Type Care Provider Facility Start: 03-12-2025 End: 04-12-2025 ambulatory Jean Claude Huitron MD Work Phone: [facility] [place] Start: 01-05-2025 End: 01-05-2025 Emergency department patient visit Myles Cabrera Facility:[facility] Start: 10-22-2024 End: 10-23-2024 Telephone encounter Irlanda Hogan APRN.GANDY DANCER Work Phone: Family [facility] [place] Comment on above: Refill Request Start: 10-22-2024 End: 10-22-2024 ambulatory JEAN CLAUDE HUITRON Facility:[facility] Start: 10-22-2024 End: 10-22-2024 Patient encounter procedure Jean Claude Huitron MD Work Phone: [facility] [place] Comment on above: Type 2 diabetes camilla itus with hyperglycemia, with long-term current use of insulin (HCC) (Primary Dx); RLS (restless legs syndrome); Elevated BP without diagnosis of hypertension Start: 09-25-2024 End: 09-25-2024 Patient encounter procedure Irlanda Hogan APRN.GANDY DANCER Work Phone: [facility] [place] Comment on above: Hospital discharge f ollow-up (Primary Dx); Encounter for immunization; Rectal abscess Start: 09-25-2024 End: 09-25-2024 ambulatory JEAN CLAUDE HUITRON Facility:[facility] Start: 09-21-2024 End: 09-24-2024 E-mail encounter from caregiver [facility] Provider [facility] [place] Start: 09-21-2024 End: 09-24-2024 Patient encounter procedure [facility] [place] Comment on above: Your appointment for 09/25/24 Start: 09-19-2024 End: 10-22-2024 Patient Outreach Celeste Villa LPN Family Medicine Robert harvey Comment on above: Transition Of Care ( [facility] discharge 09/18/24) Start: 09-16-2024 ambulatory Grace JOE Faci lity:[facility] Start: 09-16-2024 End: 09-18-2024 Evaluation and management of inpatient Ken Sosa Facility:[facility] Start: 09-16-2024 End: 09-16-[address] [facility] Facility:[facility] Start: 09-16-2024 End: 09-16-2024 Patient encounter procedure Rony Chávez APRN.GANDY DANCER Work Phone: [facility] Comment on above: Infection (Primary D x) Start: 08-25-2024 End: 08-29-2024 Refill Irlanda Podlogjorge MEDICAL RECORDS TECHNICIAN.GANDY DANCER Work Phone: Family [facility] Comment on above: Refill Request Start: 07-20-2024 End: 07-20-2024 Emergency department patient visit Cosme Link Facility:[facility] Start: 07-17-2024 End: 07-17-2024 Telephone encounter [facility] Work Phone: [facility] Comment on above: Appointment Start: 07-13-2024 End: 07-16-2024 Telephone encounter Rose JOE Work Phone: [facility] Comment on above: Results Start: 07-11-2024 End: 07-11-[address] [facility] Facility:[facility] Start: 07-11-2024 End: 07-11-2024 Patient encounter procedure Letitia Odell APRN.GANDY DANCER Work Phone: [facility] Comment on above: Sore throat (Primary Dx); Fever, unspecified fever cause Start: 05-28-2024 End: 05-28-2024 Emergency department patient visit DR RIKI COATES MD [facility] Start: 05-07-2024 End: 05-07-[address] [facility] Facility:[facility] Start: 05-02-2024 Refill Irlanda Hogan MEDICAL RECORDS TECHNICIAN.GANDY DANCER Work Phone: Family [facility] Comment on above: Refill Request Diabetic Check In/ M ed update Start: 04-26-2024 E-mail encounter billy rolle caregiver [facility] Work Phone: [facility] Start: 04-26-2024 Patient encounter procedure [facility] Work Phone: [facility] Comment on above: Primary Care Pharmac ist Visit Start: 04-11-2024 Telephone encounter Joaquin Huitron MD Work Phone: Family [facility] [place] Comment on above: Results Start: 04-09-2024 Telephone encounter Joaquin Huitron MD Work Phone: [facility] Comment on above: Primary care Pharmac y Appt Start: 04-06-2024 End: 04-06-2024 Patient encounter procedure Jean Claude Huitron MD Work Phone: Family [facility] [place] Comment on above: Annual physical exam (Primary Dx); Type 2 diabetes mellitus with hyperglycemia, with long-term current use of insulin (HCC); Peripheral polyneuropathy; RLS (restless legs syndrome); Mixed hyperlipidemia; Obesity (BMI 30-39.9); Screening for cervical cancer; Encounter for immunization Start: 03-26-2024 End: 03-26-2024 ambulatory Tristin JOE Facility:[facility] Start: 02-03-2024 ambulatory JEAN CLAUDE HUITRON Facility:[id number] Start: 02-03-2024 End: 02-03-2024 Subsequent hospital visit by physician Screen [facility] [place] [address] Radiology Comment on above: Encounter for screen ing mammogram for breast cancer [Z12.31] Start: 02-03-2024 Documentation procedure Mammog cisco Coordinator [facility] Start: 02-03-2024 Letter encounter Mammography Coordinator [facility] Department Start: 01-30-2024 Refill Irlanda Hogan APRN.CNP Work Phone: Family [facility] [place] Comment on above: Refill Request Start: 12-28-2023 ambulatory Jean Claude Huitron MD Work Phone: Internal [facility] [place] Start: 10-07-2023 End: 10-11-[address] MARTHA NANCE MD Facility:[facility] Start: 10-07-2023 End: 10-11-[address] MARTHA NANCE MD [facility] Start: 09-30-2023 End: 09-30-2023 Emergency department patient visit CAPRICE MONTANO MD [facility] Start: 09-22-2023 End: 09-22-2023 Emergency department patient visit MYA MYERS MD [facility] Start: 08-19-2023 End: 08-19-2023 ambulatory [facility] Work Phone: Start: 08-19-2023 End: 08-19-2023 Patient encounter procedure [facility] Work Phone: Start: 08-09-2023 Admission to [facility] Jean Claude Huitron MD Work Phone: [facility] [place] Comment on above: Surgery Clearance Fo rm Start: 08-09-2023 ambulatory Jean Claude Huitron MD Work Phone: [facility] [place] Start: 08-09-2023 Telephone encounter Joaquin Huitron MD Work Phone: [facility] [place] Comment on above: Results Start: 08-05-2023 ambulatory Jean Claude Huitron MD Work Phone: [facility] [place] Comment on above: Surgical Clearance Start: 08-05-2023 Preprocedural examination done Jean Claude Huitron MD Work Phone: [facility] Work Phone: Start: 07-08-2023 Refill Jean Claude Huitron MD Work Phone: [facility] [place] Comment on above: Refill Request (LAST WAS ONLY MED UPDATE) Start: 07-04-2023 Refill Jean Claude Huitron MD Work Phone: [facility] Comment on above: Refill Request; Refi ll Request Start: 06-07-2023 Telephone encounter Joaquin Huitron MD Work Phone: [facility] [place] Comment on above: Insurance Authorizat ion Start: 06-03-2023 Telephone encounter Joaquin Huitron MD Work Phone: [facility] [place] Comment on above: pre op form ([facility]) Start: 06-03-2023 End: 06-03-2023 Patient encounter procedure Jean Claude Huitron MD Work Phone: [facility] [place] Comment on above: Type 2 diabetes camilla itus with hyperglycemia, with long-term current use of insulin (HCC) (Primary Dx); Pre-op evaluation; Traumatic tear of left rotator cuff, unspecified tear extent, subsequent encounter Start: 06-03-2023 End: 06-03-2023 Preprocedural examination done Jean Claude Huitron MD Work Phone: [facility] Work Phone: Start: 06-01-2023 Refill Irlanda Hogan MEDICAL RECORDS TECHNICIAN.GANDY DANCER Work Phone: [facility] [place] Comment on above: Refill Request Start: 05-16-2023 Refill Irlanda Hogan APRN.GANDY DANCER Work Phone: [facility] [place] Comment on above: Refill Request Start: 04-13-2023 End: 04-13-2023 Emergency department patient visit [facility] Start: 04-06-2023 Telephone encounter Rony Chávez APRN.GANDY DANCER Work Phone: [facility] Comment on above: Results Start: 04-05-2023 End: 04-05-2023 Patient encounter procedure Letitia Odell MEDICAL RECORDS TECHNICIAN.GANDY DANCER Work Phone: [facility] Comment on above: Sinobronchitis (Prim prachi Dx) Start: 02-27-2023 End: 02-27-2023 Emergency department patient visit JOSE WEINSTEIN Facility:[facility] Start: 02-27-2023 End: 02-27-2023 Patient encounter procedure Bobbi Herbert APRN.GANDY DANCER Work Phone: [facility] Comment on above: Right arm pain (Prim prachi Dx); Numbness and tingling of right arm; Headache, unspecified headache type; Left facial numbness Start: 01-17-2023 Telephone encounter Alisia Fady [facility] Comment on above: New Primary Care Pha rmacy Appt. Start: 01-14-2023 End: 01-14-2023 Patient encounter procedure Jean Claude Huitron MD Work Phone: [facility] [place] Comment on above: Type 2 diabetes camilla itus with hyperglycemia, with long-term current use of insulin (HCC) (Primary Dx) Start: 01-12-2023 ambulatory Jean Claude Huitron MD Work Phone: Internal Medicine [facility] Start: 01-05-2023 E-mail encounter billy m caregiver [facility] Provider [facility] [place] Start: 01-05-2023 Patient encounter procedure [facility] Provider [facility] [place] Comment on above: Appointment Start: 12-06-2022 Refill Jean Claude Huitron MD Work Phone: [facility] [place] Comment on above: Refill Request Start: 12-05-2022 ambulatory Jean Claude Huitron MD Work Phone: [facility] [place] Comment on above: Long acting Insulin (Lantus) Start: 12-02-2022 End: 12-02-2022 Patient encounter procedure Jean Claude Huitron MD Work Phone: [facility] Comment on above: Abscess, gluteal, ri ght (Primary Dx); Status post incision and drainage; Type 2 diabetes mellitus with hyperglycemia, with long-term current use of insulin (HCC) Start: 11-29-2022 Telephone encounter Joaquin Huitron MD Work Phone: [facility] Comment on above: Medication Request Start: 11-28-2022 End: 11-28-2022 Emergency department patient visit MARIA DEL CARMEN TSANG MD Facility:[facility] Start: 11-25-2022 End: 11-25-2022 Patient encounter procedure Letitia Odell APRN.GANDY DANCER Work Phone: [facility] Comment on above: Boil, buttock (Prima ry Dx) Start: 08-30-2022 End: 08-30-2022 [facility] Start: 07-14-2022 End: 07-14-2022 Patient encounter procedure Irlanda Podlogar MEDICAL RECORDS TECHNICIAN.GANDY DANCER Work Phone: [facility] Comment on above: Recurrent UTI (urina ry tract infection) (Primary Dx); Diabetes mellitus type II (HCC) Start: 07-09-2022 Telephone encounter Irlanda gunderson MEDICAL RECORDS TECHNICIAN.GANDY DANCER Work Phone: [facility] Comment on above: Results Start: 07-07-2022 ambulatory Jean Claude Huitron MD Work Phone: [facility] Comment on above: Kidney Infection Start: 07-07-2022 Telephone encounter Irlanda gunderson APRN.GANDY DANCER Work Phone: [facility] Comment on above: Medication Question Start: 07-07-2022 End: 07-07-2022 Patient encounter procedure Irlanda Hogan MEDICAL RECORDS TECHNICIAN.GANDY DANCER Work Phone: [facility] Comment on above: UTI symptoms (Primar y Dx); Abdominal wall seroma, subsequent encounter Start: 06-24-2022 Telephone encounter Joaquin Huitron MD Work Phone: [facility] Comment on above: Results Start: 06-13-2022 End: 06-13-2022 Emergency department patient visit [facility] Start: 06-08-2022 ambulatory JEAN CLAUDE HUITRON [facility] ility:[facility] Start: 06-08-2022 End: 06-08-2022 Postop follow up visit related to original px Roxana Moore MD Work Phone: [facility] [place] Comment on above: S/P repair of ventra l hernia (Primary Dx) Start: 05-21-2022 End: 05-21-2022 ambulatory ROXANA MOORE Facility:[facility] Start: 05-21-2022 End: 05-21-2022 Subsequent hospital visit by physician Roxana Moore MD Work Phone: [facility] Comment on above: Incisional hernia Start: 05-13-2022 Telephone encounter Joaquin Huitron MD Work Phone: [facility] [place] Comment on above: Results Start: 05-07-2022 End: 05-07-2022 Subsequent hospital visit by physician M[facility] (I-Stat/1.5t) Work Phone: Radiology Comment on above: Liver lesion [K76.9] Start: 05-07-2022 ambulatory JEAN CLAUDE HUITRON Fac ility:[facility] Start: 05-07-2022 Encounter for other preprocedural examination JEAN CLAUDE HUITRON Facility:[facility] Start: 04-22-2022 End: 04-22-2022 Patient encounter procedure Jean Claude Huitron MD Work Phone: [facility] Comment on above: Annual physical exam (Primary Dx); Pre-operative clearance; Diabetes mellitus type II (HCC); Mixed hyperlipidemia; Ventral hernia without obstruction or gangrene; Liver lesion; Obesity (BMI 30-39.9); Screening for cervical cancer Start: 04-22-2022 End: 04-22-2022 Preoperative state [facility] Start: 04-02-2022 Refill Jean Claude Huitron MD Work Phone: [facility] Comment on above: Refill Request Start: 04-01-2022 ambulatory ROXANA MOORE Facilit y:[facility] Start: 04-01-2022 End: 04-01-2022 Office outpatient visit 25 minutes Roxana Moore MD Work Phone: [facility] Gastro[facility] [place] Comment on above: Ventral hernia witho ut obstruction or gangrene Start: 03-18-2022 ambulatory SELF SELF Facility:[facility] Start: 03-18-2022 End: 03-18-2022 Office outpatient visit 15 minutes Kecia Carvalho MD Work Phone: Colorectal Surgery [facility] Comment on above: Ventral hernia witho ut obstruction or gangrene (Primary Dx) Start: 03-17-2022 [facility] Start: 03-17-2022 End: 03-17-2022 Subsequent hospital visit by physician Kecia Carvalho MD Work Phone: [facility] M[facility]ography [facility] [place] Comment on above: Arrived Start: 03-15-2022 End: 03-16-2022 ambulatory JEAN CLAUDE HUITRON Facility:[facility] Start: 03-02-2022 Refill Jean Claude Huitron MD Work Phone: [facility] [place] Comment on above: Refill Request Start: 02-26-2022 Refill Irlanda Hogan MEDICAL RECORDS TECHNICIAN.GANDY DANCER Work Phone: [facility] [place] Comment on above: Refill Request Start: 06-02-2021 End: 06-02-2021 Postop follow up visit related to original px Trace Bailey MD Work Phone: Trauma Surgery [facility] Comment on above: Follow up (Primary D x) Start: 10-23-2020 End: 10-23-2020 Patient encounter procedure BEATRIZ Alcantar ROSSY [facility] Procedures Date Procedure Procedure Detail Performing Clinician Start: 07-11-2024 Urnls dip stick/tabl et rgnt auto w/o microscopy Letitia Odell MEDICAL RECORDS TECHNICIAN.GANDY DANCER Work Phone: Start: 07-11-2024 STREP A MOLECULAR (POC) Letitia Odell MEDICAL RECORDS TECHNICIAN.GANDY DANCER Work Phone: Start: 02-03-2024 Screening mammograph y bi 2-view breast inc cad Bulk Order Provider Start: 06-03-2023 End: 06-03-2023 Ecg routine ecg w/least 12 lds i&r only [facility] Provider Start: 04-13-2023 Plain X-ray of clavicle Start: 04-13-2023 Plain X-ray of shoulder Start: 04-13-2023 Radiologic examinati on of knee Start: 04-13-2023 Computed tomography of abdomen and pelvis with contrast Start: 08-30-2022 CT of abdomen and pe lvis without contrast Start: 07-14-2022 Urnls dip stick/tabl et rgnt auto w/o microscopy Irlanda Podlogar MEDICAL RECORDS TECHNICIAN.GANDY DANCER Work Phone: Start: 07-07-2022 Urnls dip stick/tabl et rgnt auto w/o microscopy Irlanda Podlogar MEDICAL RECORDS TECHNICIAN.GANDY DANCER Work Phone: Start: 06-13-2022 Computed tomography of abdomen and pelvis with contrast Start: 05-21-2022 Glucose measurement, blood Roxana Moore MD Work Phone: Start: 05-21-2022 Glucose measurement, blood Roxana Moore MD Work Phone: Start: 05-21-2022 US Unspecified body region during surgery Steve Louise MD Work Phone: Start: 05-21-2022 Glucose measurement, blood Roxana Moore MD Work Phone: Start: 05-21-2022 Urine test visual color cmprsn meths Roxana Moore MD Work Phone: Start: 05-07-2022 Mri abdomen w/o & w/contrast material Jean Claude Huitron MD Work Phone: Start: 04-22-2022 Adult depression screening assessment Jean Claude Huitron MD Work Phone: Start: 03-17-2022 Ct abdomen & pelvis w/o contrast material Kecia Carvalho MD Work Phone: Start: 12-11-2021 Mammography Irlanda Podl ogar MEDICAL RECORDS TECHNICIAN.GANDY DANCER Work Phone: Start: 09-09-2021 H/O: surgery History of cre ation of ostomy Kecia Carvalho MD Work Phone: Start: 07-31-2016 Adult depression screening assessment Irlanda Podlogar MEDICAL RECORDS TECHNICIAN.GANDY DANCER Work Phone: Plan of Treatment Date Care Activity Detail Author Start: 10-10-2029 Urine microalbumin profile [facility] Start: 10-22-2025 Annual PCP Team Chronic Disease Visit Annual PCP Team Chronic Disease Visit [facility] Start: 09-25-2025 Annual PCP Team Chronic Disease Visit Annual PCP Team Chronic Disease Visit [facility] Start: 09-25-2025 Covid-19 Vaccine () Covid-19 Vaccine () [facility] Comment on above: Postponed from 07/08/2024 (Declined at t his time) Start: 04-06-2025 Annual PCP Team Chronic Disease Visit Annual PCP Team Chronic Disease Visit [facility] Start: 04-06-2025 Covid-19 Vaccine ( season) Covid-19 Vaccine () [facility] Comment on above: Postponed from 07/08/2023 (Declined at t his time) Start: 04-06-2025 Diabetic foot examination Diabetic Foot Exam [facility] Start: 04-06-2025 Hepatitis B screening Urine Albumin:Creatinine Ratio [facility] Start: 04-06-2025 Hepatitis B surface antibody level LDL Cholesterol [facility] Start: 02-02-2025 Screening for malignant neoplasm of breast Mammogram Screening [facility] Start: 01-21-2025 End: 01-21-2025 Patient encounter procedure 01/21/2025 7:20 AM EDT Office Visit Family [facility] [place] [address] [place] [id number] Jean Claude Huitron MD [address] [place] [id number] 3 month follow up-DM Family [facility] Comment on above: 3 month follow up-DM Start: 11-12-2024 End: 11-12-2024 Patient encounter procedure 11/12/2024 7:20 AM EST Office Visit Family [facility] [place] [address] [place] [address] Jean Claude Huitron MD [address] [place] [address] 3 week bp check Family [facility] Comment on above: 3 week bp check Start: 10-22-2024 End: 01-21-2025 Comprehensive metabolic 2000 panel - Serum or Plasma COMPREHENSIVE METABOLIC PANEL Lab Routine Type 2 diabetes mellitus with hyperglycemia, with long-term current use of insulin (HCC) Expected: 10/22/2024, Expires: 01/21/2025 [facility] Work Phone: Comment on above: Expected: 10/22/2024, Expires: Start: 10-22-2024 End: 01-21-2025 Hemoglobin A1c in Blood HEMOGLOBIN A1C Lab Routine Type 2 diabetes mellitus with hyperglycemia, with long-term current use of insulin (HCC) Expected: 10/22/2024, Expires: 01/21/2025 [facility] Comment on above: Expected: 10/22/2024, Expires: Start: 10-22-2024 End: 10-22-2024 Patient encounter procedure 10/22/2024 7:20 AM EST Office Visit Family [facility] [place] [address] [place] [address] Jean Claude [facility]uitron MD [address] [facility] [address] Diabetic Check up [facility] [place] Comment on above: Diabetic Check up Start: 10-03-2024 End: 10-03-2024 Patient encounter procedure 10/03/2024 1:00 PM EST Office Visit [facility] [place] [address] [facility] [place] [address] Jean Claude Huitron MD [address] [facility] [place] [address] Diabetic check up- recent hospital stay follow up [facility] [place] Comment on above: Diabetic check up- recent hospital stay follow up Start: 09-25-2024 End: 09-25-2024 Patient encounter procedure 09/25/2024 7:20 AM EST Office Visit [facility] [place] [address] [facility] [place] [address] Irlanda Hogan APRN.GANDY DANCER [address] [facility] [place] [address] [facility] Hospital Follow Up; 09/18/2024; Infection [facility] [place] Comment on above: [facility] Hospital Follow Up; 09/18/2024; Infection Start: 07-11-2024 End: 07-11-2024 Patient encounter procedure 07/11/2024 7:00 AM EDT Office Visit [facility] [place] [address] [place] [address] Jean Claude Huitron MD [address] [place] [address] 3 month follow up [facility] [place] Comment on above: 3 month follow up Start: 07-08-2024 Covid-19 Vaccine ( season) Covid-19 Vaccine () [facility] Start: 07-08-2024 Covid-19 Vaccine () Covid-19 Vaccine () [facility] Start: 07-08-2024 Influenza vaccination [facility] Start: 07-07-2024 Hemoglobin A1c measurement HbA1C [facility] Start: 06-14-2024 End: 06-14-2024 Patient encounter procedure [facility] Comment on above: Type 2 diabetes mellitus with hyperglyce jorgito, with long-term current use of insulin (HCC) [E11.65, Z79.4] Annual Exam new meghann ent Start: 06-03-2024 3 comp foot exam completed DIABETIC FOOT EXAM [facility] Start: 06-03-2024 ANNUAL PCP TEAM CHRONIC DISEASE VISIT ANNUAL PCP TEAM CHRONIC DISEASE VISIT [facility] Start: 06-03-2024 Diabetic foot examination Diabetic Foot Exam [facility] Start: 06-03-2024 Hepatitis B screening URINE ALBUMIN:CREATININE RATIO [facility] Start: 06-03-2024 Hepatitis B surface antibody level LDL CHOLESTEROL [facility] Start: 05-04-2024 End: 05-04-2024 ambulatory 05/04/2024 9:30 AM EDT Results Only [place] [facility] [address] [place] [address] [place] [facility] Start: 04-25-2024 End: 07-25-2024 CBC W Ordered Manual Differential panel - Blood PATHOLOGIST INTERPRETATION WITH CBC AND DIFF Lab Routine Leukocytosis, unspecified type Expected: 04/25/2024, Expires: 07/25/2024 [facility] Work Phone: Comment on above: Expected: 04/25/2024, Expires: 4 Start: 02-01-2024 Hemoglobin A1c measurement HbA1C [facility] Start: 02-01-2024 Hemoglobin A1c/Hemoglobin.total in Blood HbA1C [facility] Start: 01-15-2024 ANNUAL PCP TEAM CHRONIC DISEASE VISIT ANNUAL PCP TEAM CHRONIC DISEASE VISIT [facility] Start: 12-02-2023 ANNUAL PCP TEAM CHRONIC DISEASE VISIT ANNUAL PCP TEAM CHRONIC DISEASE VISIT [facility] Start: 12-02-2023 COVID-19 VACCINE (#1) COVID-19 VACCINE (#1) [facility] Comment on above: Postponed from 1980 (Declined at t his time) Start: 11-07-2023 Behavioral Health Screening Behavioral Health Screening [facility] Start: 11-07-2023 Depression Assessment Depression Assessment [facility] Start: 09-10-2023 ANNUAL PCP TEAM CHRONIC DISEASE VISIT ANNUAL PCP TEAM CHRONIC DISEASE VISIT [facility] Start: 09-03-2023 Hemoglobin A1c/Hemoglobin.total in Blood HBA1C [facility] Start: 08-08-2023 End: 10-08-2023 Comprehensive metabolic 2000 panel - Serum or Plasma COMP METABOLIC PANEL Lab Routine Type 2 diabetes mellitus with hyperglycemia, with long-term current use of insulin (HCC) Pre-op evaluation Expected: 08/08/2023, Expires: 10/08/2023 [facility] Work Phone: Comment on above: Expected: 08/08/2023, Expires: Start: 07-14-2023 ANNUAL PCP TEAM CHRONIC DISEASE VISIT ANNUAL PCP TEAM CHRONIC DISEASE VISIT [facility] Start: 07-08-2023 Covid-19 Vaccine () Covid-19 Vaccine () [facility] Start: 07-08-2023 Influenza vaccination [facility] Start: 07-07-2023 ANNUAL PCP TEAM CHRONIC DISEASE VISIT ANNUAL PCP TEAM CHRONIC DISEASE VISIT [facility] Start: 06-21-2023 ANNUAL PCP TEAM CHRONIC DISEASE VISIT ANNUAL PCP TEAM CHRONIC DISEASE VISIT [facility] Start: 06-03-2023 End: 08-03-2023 ALBUMIN/CREAT RATIO RND UR [facility] Work Phone: Comment on above: Expected: 06/03/2023, Expires: 3 Start: 06-03-2023 End: 08-03-2023 Comprehensive metabolic 2000 panel - Serum or Plasma [facility] Work Phone: Comment on above: Expected: 06/03/2023, Expires: 3 Start: 06-03-2023 End: 08-03-2023 LIPID PANEL, NONFASTING [facility] Work Phone: Comment on above: Expected: 06/03/2023, Expires: 3 Start: 04-22-2023 Adult depression screening assessment DEPRESSION SCREENING [facility] Start: 04-22-2023 ANNUAL PCP TEAM CHRONIC DISEASE VISIT ANNUAL PCP TEAM CHRONIC DISEASE VISIT [facility] Start: 04-22-2023 HEPATITIS B (1 of 3 - Risk 3-dose series) [facility] Comment on above: Postponed from 1999 (Declined at t his time) Postponed from 06/29 (Declined at this time) Start: 04-22-2023 PNEUMOCOCCAL (2 - PCV) PNEUMOCOCCAL (2 - PCV) [facility] Comment on above: Postponed from 08/06/2017 (Declined at t his time) Start: 04-21-2023 Hepatitis B screening URINE ALBUMIN:CREATININE RATIO [facility] Start: 04-21-2023 Hepatitis B surface antibody level LDL CHOLESTEROL [facility] Start: 03-27-2023 Hemoglobin A1c/Hemoglobin.total in Blood HBA1C [facility] Start: 12-15-2022 Glaucoma screening Dilated Retinal Exam [facility] Start: 12-15-2022 Hepatitis C antibody, confirmatory test DILATED RETINAL EXAM [facility] Start: 12-11-2022 Mammography [facility] Start: 12-11-2022 Screening for malignant neoplasm of breast Mammogram Screening [facility] Start: 12-09-2022 ANNUAL PCP TEAM CHRONIC DISEASE VISIT ANNUAL PCP TEAM CHRONIC DISEASE VISIT [facility] Start: 12-02-2022 End: 02-01-2023 Comprehensive metabolic 2000 panel - Serum or Plasma COMP METABOLIC PANEL Lab Routine Type 2 diabetes mellitus with hyperglycemia, with long-term current use of insulin (HCC) Expected: 12/02/2022, Expires: 02/01/2023 [facility] Work Phone: Comment on above: Expected: 12/02/2022, Expires: 3 Start: 12-02-2022 End: 02-01-2023 Hemoglobin A1c in Blood HGB A1C Lab Routine Type 2 diabetes mellitus with hyperglycemia, with long-term current use of insulin (HCC) Expected: 12/02/2022, Expires: 02/01/2023 [facility] Work Phone: Comment on above: Expected: 12/02/2022, Expires: 3 Start: 11-07-2022 DEPRESSION ASSESSMENT DEPRESSION ASSESSMENT [facility] Start: 08-12-2022 End: 08-12-2022 Telemedicine consultation with patient 08/12/2022 Telemedicine General Surgery Joann Flower, MEDICAL RECORDS TECHNICIAN-GANDY DANCER [address] [place] [address] General and Gastrointestinal Surgery [facility] Start: 07-22-2022 Hemoglobin A1c/Hemoglobin.total in Blood HBA1C [facility] Start: 07-14-2022 End: 09-13-2022 Hemoglobin A1c in Blood HGB A1C Lab Routine Diabetes mellitus type II (HCC) Expected: 07/14/2022, Expires: 09/13/2022 [facility] Work Phone: Comment on above: Expected: 07/14/2022, Expires: 2 Start: 07-14-2022 End: 09-13-2022 URINALYSIS, DIPSTICK ONLY URINALYSIS, DIPSTICK ONLY Lab Routine Recurrent UTI (urinary tract infection) Expected: 07/14/2022, Expires: 09/13/2022 [facility] Work Phone: Comment on above: Expected: 07/14/2022, Expires: 2 Start: 07-08-2022 Influenza vaccination [facility] Start: 2022 PAP TESTING PAP TESTING [facility] Start: 06-05-2022 3 comp foot exam completed DIABETIC FOOT EXAM [facility] Start: 06-05-2022 Hepatitis B screening URINE ALBUMIN:CREATININE RATIO [facility] Start: 06-03-2022 End: 06-03-2022 Patient encounter procedure 06/03/2022 Office Visit General Surgery Roxana Moore MD [address] [place] [address] General and Gastrointestinal Surgery [facility] Start: 06-01-2022 Hepatitis B surface antibody level LDL CHOLESTEROL [facility] Start: 05-21-2022 End: 05-21-2022 Admission to same day surgery center 05/21/2022 Surgery Multispecialty Roxana Moore MD [address] [place] [address] REPAIR HERNIA VENTRAL ROBOTIC W/ MESH [facility] Comment on above: REPAIR HERNIA VENTRAL ROBOTIC W/ MESH Start: 05-21-2022 End: 05-21-2022 Laps repair hernia except incal/ingun reducible REPAIR HERNIA VENTRAL ROBOTIC W/ MESH Incisional hernia 05/21/2022 9:55 AM EDT [facility] Start: 05-21-2022 Subsequent hospital visit by physician 05/21/2022 Hospital Encounter Multispecialty Roxana Moore MD [address] [place] [address] Incisional hernia [facility] Comment on above: Incisional hernia Start: 05-21-2022 End: 05-21-2022 Laps repair hernia except incal/ingun reducible REPAIR HERNIA VENTRAL ROBOTIC W/ MESH Incisional hernia 05/21/2022 7:29 AM EDT [facility] Start: 05-07-2022 End: 05-07-2022 ambulatory 05/07/2022 Pre-Operative Nurse Assessment Multispecialty [facility] Start: 04-01-2022 End: 04-01-2022 Patient encounter procedure 04/01/2022 Office Visit General Surgery Roxana Moore MD [address] [place] [address] General and Gastrointestinal Surgery [facility] Start: 03-18-2022 End: 03-18-2022 Patient encounter procedure 03/18/2022 Office Visit Colon & Rectal Surgery Kecia Carvalho MD [address] [facility] [address] [place] [address] Colorectal [address] [facility] Start: 02-26-2022 End: 04-28-2022 ALBUMIN/CREAT RATIO RND UR ALBUMIN/CREAT RATIO RND UR Lab Routine Diabetes mellitus type II (HCC) Expected: 02/26/2022, Expires: 04/28/2022 [facility] Work Phone: Comment on above: Expected: 02/26/2022, Expires: 2 Start: 02-26-2022 End: 04-28-2022 Hemoglobin A1c/Hemoglobin.total in Blood HGB A1C Lab Routine Diabetes mellitus type II (HCC) Expected: 02/26/2022, Expires: 04/28/2022 [facility] Work Phone: Comment on above: Expected: 02/26/2022, Expires: 2 Start: 02-26-2022 End: 04-28-2022 LIPID PANEL, NONFASTING LIPID PANEL, NONFASTING Lab Routine Diabetes mellitus type II (HCC) Expected: 02/26/2022, Expires: 04/28/2022 [facility] Work Phone: Comment on above: Expected: 02/26/2022, Expires: 2 Start: 01-12-2022 Hemoglobin A1c/Hemoglobin.total in Blood HBA1C [facility] Start: 11-07-2021 DEPRESSION ASSESSMENT DEPRESSION ASSESSMENT [facility] Start: 11-04-2021 Hemoglobin A1c measurement HBA1C TEST [facility] Start: 07-08-2021 Influenza vaccination INFLUENZA VACCINE (#1) [facility] Start: 2020 Fasting lipid profile LIPID SCREENING [facility] Start: 2020 Screening mammography MAMMOGRAM SCREENING DISCUSSION [facility] Start: 08-06-2017 PNEUMOCOCCAL (2 - PCV) PNEUMOCOCCAL (2 - PCV) [facility] Start: 08-06-2017 Pneumococcal vaccination [facility] Start: 07-31-2017 Adult depression screening assessment DEPRESSION SCREENING [facility] Start: 2010 HPV TESTING HPV TESTING [facility] Start: 2010 Screening for malignant neoplasm of cervix HPV Testing [facility] Start: 2001 PAP TESTING PAP TESTING [facility] Start: 2001 Screening for malignant neoplasm of cervix [facility] Start: 1999 HEPATITIS B (1 of 3 - Risk 3-dose series) HEPATITIS B (1 of 3 - Risk 3-dose series) [facility] Start: 1999 Hepatitis B Vaccine (1 of 3 - 19+ 3-dose series) Hepatitis B Vaccine (1 of 3 - 19+ 3-dose series) [facility] Start: 1999 Third diphtheria, tetanus and acellular pertussis (DTaP) vaccination TDAP (ADULT) [facility] Start: 1998 Anxiety Screening Anxiety Screening [facility] Start: 1998 Depression Screening Depression Screening [facility] Start: 1998 Tetanus vaccination TETANUS [facility] Start: 1995 HIV screening HIV SCREENING DISCUSSION [facility] Start: 1992 COVID-19 VACCINE (1) COVID-19 VACCINE (1) [facility] Start: 1990 Hepatitis C antibody, confirmatory test DILATED RETINAL EXAM [facility] Start: 1986 PNEUMOCOCCAL (1 - PCV) PNEUMOCOCCAL (1 - PCV) [facility] Start: 1985 COVID-19 VACCINE (#1) COVID-19 VACCINE (#1) [facility] Start: 1985 COVID-19 VACCINE (1) COVID-19 VACCINE (1) [facility] Start: 1980 COVID-19 VACCINE (#1) COVID-19 VACCINE (#1) [facility] Start: 1980 Diabetic foot examination DIABETIC FOOT EXAM [facility] Start: 1980 Diabetic retinal eye exam [facility] Start: 1980 HEPATITIS B (1 of 3 - 3-dose series) HEPATITIS B (1 of 3 - 3-dose series) [facility] Start: 1980 Hepatitis B Vaccine (1 of 3 - 3-dose series) Hepatitis B Vaccine (1 of 3 - 3-dose series) [facility] Start: 1980 Hepatitis C antibody, confirmatory test HEPATITIS C VIRUS SCREENING [facility] Start: 1980 [facility] Start: 1980 Microalbumin measurement, urine, quantitative URINE MICROALBUMIN TEST [facility] Bacteria identified in Urine by Culture URINE CULTURE Microbiology Routine UTI symptoms 07/07/2022 11:32 AM EDT [facility] Work Phone: Bacteria identified in Urine by Culture URINE CULTURE Microbiology Routine Fever, unspecified fever cause 07/11/2024 3:25 PM EDT [facility] Work Phone: COVID & INFLUENZA A/ B & RSV PCR, ROUTINE COVID & INFLUENZA A/B & RSV PCR, ROUTINE Microbiology Routine Sore throat Fever, unspecified fever cause 07/11/2024 3:25 PM EDT [facility] End: 04-11-2026 DBT Breast - bilateral screening JESSICA SCREENING [facility] Routine Encounter for screening mammogram for breast cancer 1 Occurrences starting 03/12/2025 until 04/11/2026 [facility] Work Phone: Comment on above: 1 Occurrences starting 03/12/2025 until 04/11/2026 End: 04-22-2023 ECG COMPLETE ECG COMPLETE ECG Routine Annual physical exam Pre-operative clearance 1 Occurrences starting 04/22/2022 until 04/22/2023 [facility] Work Phone: Comment on above: 1 Occurrences starting 04/22/2022 until 04/22/2023 End: 06-03-2024 ECG COMPLETE ECG COMPLETE ECG Routine Pre-op evaluation 1 Occurrences starting 06/03/2023 until 06/03/2024 [facility] Work Phone: Comment on above: 1 Occurrences starting 06/03/2023 until 06/03/2024 ECG COMPLETE [facility] Influenza virus A an d B RNA and SARS-CoV-2 (COVID-19) N gene panel - Respiratory specimen by NAKUL with probe detection COVID WITH FLUA+B, ROUTINE Microbiology Routine Sinobronchitis 04/05/2023 10:50 AM EDT [facility] Work Phone: End: 02-11-2024 JESSICA SCREENING JESSICA SCREENING Radiology Routine Encounter for screening mammogram for breast cancer 1 Occurrences starting 01/12/2023 until 02/11/2024 [facility] Work Phone: Comment on above: 1 Occurrences starting 01/12/2023 until 02/11/2024 End: 01-26-2025 MG Breast Screening JESSICA SCREENING Radiology Routine Encounter for screening mammogram for breast cancer 1 Occurrences starting 12/28/2023 until 01/26/2025 [facility] Work Phone: Comment on above: 1 Occurrences starting 12/28/2023 until 01/26/2025 End: 05-22-2023 Mri abdomen w/o & w/contrast material MRI LIVER WO/W IVCON Radiology [facility] Liver lesion 1 Occurrences starting 04/22/2022 until 05/22/2023 [facility] Work Phone: Comment on above: 1 Occurrences starting 04/22/2022 until 05/22/2023 Patient Education [facility] Work Phone: Patient referral [facility] Work Phone: [facility] Immunizations Immunization Date Immunization Notes Care Provider Mikayla benton 09-25-2024 influenza, seasonal, injectable Irlanda Hogan MEDICAL RECORDS TECHNICIAN.JAISON Work Phone: [facility] 04-06-2024 pneumococcal conjuga te (PCV20) vaccine, 20 valent (PREVNAR 20) Jean Claude Huitron MD Work Phone: [facility] 04-06-2024 pneumococcal Conjuga te, unspecified formulation Jean Claude Huitron MD Work Phone: [facility] Work Phone: 08-25-2021 influenza, injectabl e, quadrivalent, contains preservative Irlanda Podlogar MEDICAL RECORDS TECHNICIAN.GANDY DANCER Work Phone: [facility] 08-25-2021 influenza virus vaccine, unspecified formulation Roxana Moore MD Work Phone: [facility] 10-10-2019 influenza, injectabl e, quadrivalent, contains preservative Irlanda Podlogar MEDICAL RECORDS TECHNICIAN.GANDY DANCER Work Phone: [facility] 10-10-2019 tetanus toxoid, redu flores diphtheria toxoid, and acellular pertussis vaccine, adsorbed Irlanda Podlogar MEDICAL RECORDS TECHNICIAN.GANDY DANCER Work Phone: [facility] 08-06-2016 influenza, injectabl e, quadrivalent, contains preservative Irlanda Podlogar MEDICAL RECORDS TECHNICIAN.GANDY DANCER Work Phone: [facility] 08-06-2016 pneumococcal polysaccharide vaccine, 23 valent Irlanda Podlogar MEDICAL RECORDS TECHNICIAN.GANDY DANCER Work Phone: [facility] 08-15-2015 influenza, injectabl e, quadrivalent, contains preservative Irlanda Podlogar MEDICAL RECORDS TECHNICIAN.GANDY DANCER Work Phone: [facility] 11-07-2004 tetanus and diphther ia toxoids, adsorbed, preservative free, for adult use (2 Lf of tetanus toxoid and 2 Lf of diphtheria toxoid) Jean Claude Huitron MD Work Phone: [facility] 11-07-2004 tetanus and diphther ia toxoids, not adsorbed, for adult use Irlanda Podlogar MEDICAL RECORDS TECHNICIAN.[facility] Work Phone: [facility] Payers Date Payer Category Payer Unknown [id number] 2024 Self-pay [id number] 2022 Private Health Insurance [employer] [id number] 2022 Unknown [id number] 2019 Medicaid [id number]. [id number] 2019 Unknown [id number] 2019 Unknown [id number] [id number]. [id number] 2019 Unknown [id number]. 1.13.172.2. [id number] 2015 Unknown [id number] 1980 Unknown [id number] 2.840.1.215066.3.579.2. 651 1980 Unknown [id number] 2.840.1.198934.3.579.2. 594 1980 Unknown [id number] 2.840.1.980781.3.579.2. 594 1980 Unknown [id number] 2.0.1.217228.3.579.2. 594 1980 Unknown [id number] 2.16.840.1.635798.3.579.2. 594 1980 Unknown [id number] 2.16.840.1.012968.3.579.2. 594 1980 Unknown [id number] 2.16.840.1.820338.3.579.2. 594 1980 Unknown [id number] 2.16.840.1.871744.3.579.2. 594 1980 Unknown [id number] 2.16.840.1.788197.3.579.2. 594 1980 Unknown [id number] 2.840.1.158060.3.579.2. 627 1980 Unknown [id number] 2.840.1.545189.3.579.2. 627 1980 Unknown [id number] 2.840.1.884128.3.579.2. 627 1980 Unknown [id number] 2.840.1.899561.3.579.2. 627 Unknown [id number] Unknown [id number] 2.16840.1.012130.3.579.2. 462 Unknown [id number] 2.840.1.888149.3.579.2. 462 Unknown [id number] 2.16840.1.580175.3.579.2. 462 Unknown [id number] 2.16.840.1.098950.3.579.2. 462 Unknown [id number] 2.16.840.1.071108.3.579.2. 462 Unknown [id number] 2.16.840.1.562489.3.579.2. 462 Unknown [id number] 2.16.840.1.056872.3.579.2. 462 Unknown [id number] 2.16840.1.930557.3.579.2. 462 Unknown [id number] 2.16.840.1.878357.3.579.2. 462 Unknown [id number] 2.16.840.1.631967.3.579.2. 462 Social History Date Type Detail Facility Start: 05-09-2021 End: 06-21-2022 Tobacco smoking status NHIS Never smoker [facility] Start: 05-09-2021 End: 06-21-2022 Tobacco use and exposure Never used [facility] Start: 06-02-2021 End: 06-08-2022 Alcohol intake Lifetime non-drinker (finding) [facility] Start: 06-02-2021 End: 12-09-2022 History SDOH Alcohol Frequency 1 [facility] Start: 1980 Sex Assigned At Not on file O [facility] Start: 02-13-2022 End: 07-07-2022 Exposure to SARS-CoV-2 (event) Not sure [facility] Start: 12-23-2021 End: 10-22-2024 Alcohol intake Current non-drinker of alcohol (finding) [facility] Start: 06-13-2022 End: 04-13-2023 Tobacco smoking status NHIS Unknown if ever smoked [facility] Start: 1980 Sex Assigned At Female [facility] Start: 12-09-2022 History SDOH Alcohol Std Drinks 0 [facility] Start: 12-09-2022 History SDOH Social Connections Phone 5 [facility] Start: 12-09-2022 History SDOH Social Connections Get Together 3 [facility] Start: 12-09-2022 History SDOH Physica l Activity DPW 4 [facility] Start: 12-09-2022 History SDOH Transpo rt Med 2 [facility] Start: 10-12-2020 End: 12-09-2022 History of Social function [facility] Start: 10-12-2020 End: 12-09-2022 Social connection and isolation panel [facility] Do you belong to any clubs or organizations such as episcopal groups, unions, fraternal or athletic groups, or school groups? Yes [facility] Are you now , , , , never or living with a partner? [facility] How often to you hav e a drink containing alcohol? Never [facility] How many standard dr inks containing alcohol do you have on a typical day? Patient does not drink [facility] Do you feel stress - tense, restless, nervous, or anxious, or unable to sleep at night because your mind is troubled all the time - these days [OSQ] Not at all [facility] (I/We) worried wheth er (my/our) food would run out before (I/we) got money to buy more. Never true [facility] In the past 12 month s, was there a time when you were not able to pay the mortgage or rent on time? No [facility] Tobacco smoking status No Smokin g Status Entered [facility] NEGATED: Highlighted row [facility] Medical Equipment Procedure Code Equipment Code Equipment Origin al Text Equipment Identifier Dates [id number], [id number], [id number], [id number], [id number], [id number], [id number] Start: 07-05-2017 End: 08-25-2024 Comment on above: Test blood sugar(s) 4 times daily. Dx: Type 2 DM - Controlled E11.9 Insulin: Yes Use one needle for e ach dose. 5/day. Test blood sugar(s) 4 times daily and as needed. Dx: 250.02. Insulin: Yes use 1 NEEDLE FOR EAC H DOSE, four times a day Mesh 6x4in Ellip se [employer] [address] - [id number] Start: 05-21-2022 Functional Status Date Assessment Result Facility 09-30-2023 Functional Status Standard Safet y ID band on, Call device within reach, Bed in low position, Wheels locked, Visitor at bedside [facility] 09-22-2023 Functional Status ID band on, Call device within reach, Bed in low position, Wheels locked, Upper/Half-Length side-rails up, Phone within reach, personal items within reach [facility] 06-21-2014 Are you deaf, or do you have serious difficulty hearing No 06/21/2014 2:44 PM EDT Angy Vazquez Ma No [facility] 06-21-2014 Are you blind, or do you have serious difficulty seeing, even when wearing glasses No 06/21/2014 2:44 PM EDT Angy Vazquez Ma No [facility] 06-21-2014 Do you have serious difficulty walking or climbing stairs No 06/21/2014 2:44 PM EDT Angy Vazquez Ma No [facility] 06-21-2014 Do you have difficul ty dressing or bathing No 06/21/2014 2:44 PM EDT Angy Vazquez Ma No [facility] 06-21-2014 Because of a physica l, mental, or emotional condition, do you have difficulty doing errands alone such as visiting a physician's office or shopping No 06/21/2014 2:44 PM EDT Angy Vazquez Ma No [facility] Mental Status Date Assessment Result Facility 05-28-2024 Mental Status Orientation Oriented x 4 [facility] 09-30-2023 Mental Status Orientation Oriented x 4 [facility] 09-22-2023 Mental Status Oriented x 4 [facility] 06-21-2014 Because of a physica l, mental, or emotional condition, do you have serious difficulty concentrating, remembering, or making decisions No 06/21/2014 2:44 PM EDT Angy Vazquez Ma No [facility] Clinical Notes 06-02-2021 to 03-12-2025 Telephone Encounter - Jean Claude Huitron MD - 10/23/2024 1:04 PM ESTTelephone Encounter - Jean Claude Huitron MD - 10/23/2024 1:04 PM Jean Claude Reeder MD - 10/22/2024 7:45 AM EST Note Date & Type Note Facility 03-12-2025 Note Patient Outreach (FA MPWS) KENYATRICE ([id number]) 1980 F Date Time Provider Department 03/12/25 JEAN CLAUDE HUITRON During your visit today, we recorded the following information about you: Allergies As of Date: 03/12/2025 Noted Allergy Reaction METFORMIN 08/26/2015 6 - Diarrhea Comments: Occurred while on XR formulation TRULICITY (DULAGLUTIDE) 03/11/2016 11 - Vomiting Comments: Nausea/vomiting, diarrhea and epigastric pain. Date Reviewed: 10/22/2024 Reviewed by: Karmen Lewis LPN - Fully Assessed Visit Diagnosis:Encounter for screening mammogram for breast cancer [Z12.31] Order(s):JESSICA SCREENING W [facility]IN [[id number]] Order #: [id number] FUTURE Prescriptions as of 04/12/2025 - atorvastatin (LIPITOR) 10 mg tablet Take 1 tablet by mouth daily at bedtime. For cholesterol. - lisinopril (ZESTRIL) 5 mg tablet Take 1 tablet by mouth once daily. - rOPINIRole (REQUIP) 0.5 mg tablet Take 3 tablets by mouth daily at bedtime. - insulin degludec (TRESIBA FLEXTOUCH U-100) 100 unit/mL (3 mL) injection pen Inject 64 Units subcutaneously two times a day. - insulin lispro (HUMALOG KWIKPEN) 100 unit/mL Inject 44 Units subcutaneously three times a day before meals. - Insulin Olivet, Disposable, (BD ULTRA-FINE VINOD PEN NEEDLE) 32 gauge x 5/32 Inject 100 Each subcutaneously four times daily. - Lancets (ACCU-CHEK SOFTCLIX LANCETS) Test blood sugar(s) 4 times daily and as needed. Dx: 250.02. Insulin: Yes - Blood-Glucose Meter (ACCU-CHEK KENNY PLUS METER) Test glucose twice daily, 250.02. Insulin yes. - Insulin Olivet, Disposable, (BD ULTRA-FINE VINOD PEN NEEDLE) 32 gauge x 5/32 Use one needle for each dose. 5/day. - blood sugar diagnostic (Zhima TechTOUCH VERIO TEST STRIPS) test strip Test blood sugar(s) 4 times daily. Dx: Type 2 DM - Controlled E11.9 Insulin: Yes - Blood-Glucose Meter,Continuous (FREESTYLE KERRI 3 READER) misc 1 Device four times daily. - Blood-Glucose Sensor (FREESTYLE KERRI 3 SENSOR) sheba 1 Device every 2 weeks. - multivitamin tablet Take 1 tablet by mouth once daily. Problem List As Of Date 03/12/2025 Noted Resolved Diabetes mellitus type 2, uncontrolled, without*03/09/2012 Peripheral polyneuropathy (HCC) [G62.9] 08/26/2015 Type 2 diabetes mellitus with hyperglycemia, wi* Obesity (BMI 30-39.9) [E66.9] Hyperlipidemia [E78.5] Ventral hernia [K43.9] 04/22/2022 RLS (restless legs syndrome) [G25.81] 04/24/2022 Encounter Status:Closed by DEMOND HUDSONUSEMukesh on 04/12/25 [facility] 10-23-2024 Telephone encounter Note 6 month refills sent as requested. [facility] 10-23-2024 Miscellaneous Notes 6 month refills sent as requested. Patient calling forgot to ask for refills this morning at appt. She tool last dose of these medications. Please advise The patient has been identified by name and date of : Yes Caregiver verified no other encounters exist for this prescription request: Yes Caregiver confirmed with patient/requestor that no other refills are due, in the near future, with this provider at this time: Yes The last office visit in the department: 10/22/2024 Does the patient have a future office visit with this provider/department: Yes 11/12/2024 Requested Prescriptions Pending Prescriptions Disp Refills lisinopril (ZESTRIL) 5 mg tablet 30 tablet 0 Sig: Take 1 tablet by mouth once daily. atorvastatin (LIPITOR) 10 mg tablet 30 tablet 0 Sig: Take 1 tablet by mouth daily at bedtime. For cholesterol. rOPINIRole (REQUIP) 0.5 mg tablet 90 tablet 0 Sig: Take 3 tablets by mouth daily at bedtime. not sure how many refills to put on rx Britney Arce LPN October 22, 2024 3:13 PM documented in this encounter [facility] 10-22-2024 Telephone encounter Note Phoned patient aware rx x 3 were sent to the pharmacy. [facility] 10-22-2024 Miscellaneous Notes Phoned patient aware rx x 3 were sent to the pharmacy. Prescription refills sent for atorvastatin, Requip and lisinopril. Irlanda Hogan APRN.CNP documented in this encounter [facility] 10-22-2024 Telephone encounter Note Prescription refills sent for atorvastatin, Requip and lisinopril. Irlanda Hogan APRN.CNP [facility] 10-22-2024 Telephone encounter Note Patient calling forgot to ask for refills this morning at appt. She tool last dose of these medications. Please advise The patient has been identified by name and date of : Yes Caregiver verified no other encounters exist for this prescription request: Yes Caregiver confirmed with patient/requestor that no other refills are due, in the near future, with this provider at this time: Yes The last office visit in the department: 10/22/2024 Does the patient have a future office visit with this provider/department: Yes 11/12/2024 Requested Prescriptions Pending Prescriptions Disp Refills lisinopril (ZESTRIL) 5 mg tablet 30 tablet 0 Sig: Take 1 tablet by mouth once daily. atorvastatin (LIPITOR) 10 mg tablet 30 tablet 0 Sig: Take 1 tablet by mouth daily at bedtime. For cholesterol. rOPINIRole (REQUIP) 0.5 mg tablet 90 tablet 0 Sig: Take 3 tablets by mouth daily at bedtime. not sure how many refills to put on rx Britney Arce LPN October 22, 2024 3:13 PM [facility] 10-22-2024 Note HNO ID: [id number] Author: JEAN CLAUDE HUITRON MD Service: ? Author Type: Physician Type: Progress Notes Filed: 10/22/2024 08:09 Note Text: Chief Complaint Patient presents with: Follow Up: diabetes follow up HPI Trice Zambrano is a 44 year old female who presents here today for Above Complaints.. DIABETES MELLITUS: Ms. Zambrano was last seen 6 months ago. Since our last visit she denies excessive thirst or increased frequency of urination, numbness, tingling or pain in extremities, new or unusual visual symptoms, and low sugar/hypoglycemic reactions. Follows a diabetic diet most of the time. She is compliant with medication(s) and is tolerating med(s) without any side effects. She reports checking her glucose on a four times a day schedule with sugars in the fasting 100-162 range with majority <140. Before -686 with Majority around the 130-160s. Patient's last HgA1C was Hemoglobin A1C (%) Date Value 04/06/2024 8.3 08/03/2023 7.0 07/15/2021 6.9 06/01/2021 7.5 ) Last Ophthalmology exam was within the past 6 months and was negative for Diabetic Retinopathy. [facility]. Last Podiatry exam was within the past 12 months RLS symptoms improved on 1.5 mg Requip qhs. Past medical history, appointments, medications, allergies reviewed. Previous Medical History PAST MEDICAL HISTORY Diagnosis Date Cellulitis and abscess of buttock 04/[address] (HCC) Reversed Diabetes mellitus type II (HCC) Gestational diabetes Hyperlipidemia Kidney stones Dr. 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 Nance Family History FAMILY HISTORY Problem Relation Age of Onset Heart Mother Drug abuse Mother Stroke Father Hypertension Maternal Grandmother other (scleroderma) Paternal Grandmother Diabetes Maternal Uncle No Known Problems Son No Known Problems Daughter Patient Allergies ALLERGIES Allergen Reactions Metformin Diarrhea Occurred while on XR formulation Trulicity [Dulaglut* Vomiting Nausea/vomiting, diarrhea and epigastric pain. Current Medications Current Outpatient Medications on File Prior to Visit Medication Sig Insulin Olivet, Disposable, (BD ULTRA-FINE VINOD PEN NEEDLE) 32 gauge x 5/32 Inject 100 Each subcutaneously four times daily. insulin lispro (HUMALOG KWIKPEN) 100 unit/mL Inject 40 Units subcutaneously three times a day before meals. rOPINIRole (REQUIP) 0.5 mg tablet Take 3 tablets by mouth daily at bedtime. atorvastatin (LIPITOR) 10 mg tablet Take 1 tablet by mouth daily at bedtime. For cholesterol. lisinopril (ZESTRIL) 5 mg tablet Take 1 tablet by mouth once daily. Lancets (ACCU-CHEK SOFTCLIX LANCETS) Test blood sugar(s) 4 times daily and as needed. Dx: 250.02. Insulin: Yes Blood-Glucose Meter (ACCU-CHEK KENNY PLUS METER) Test glucose twice daily, 250.02. Insulin yes. Insulin Olivet, Disposable, (BD ULTRA-FINE VINOD PEN NEEDLE) 32 gauge x 5/32 Use one needle for each dose. 5/day. blood sugar diagnostic (ONETOUCH VERIO TEST STRIPS) test strip Test blood sugar(s) 4 times daily. Dx: Type 2 DM - Controlled E11.9 Insulin: Yes insulin degludec (TRESIBA FLEXTOUCH U-100) 100 unit/mL (3 mL) injection pen Inject 60 Units subcutaneously two times a day. Blood-Glucose Meter,Continuous (FREESTYLE KERRI 3 READER) misc 1 Device four times daily. Blood-Glucose Sensor (FREESTYLE KERRI 3 SENSOR) sheba 1 Device every 2 weeks. multivitamin tablet Take 1 tablet by mouth once daily. No current facility-administered medications on file prior to visit. Social History Social History Tobacco Use Smoking status: Never Smokeless tobacco: Never Vaping Use Vaping status: Never Used Substance Use Topics Alcohol use: No Drug use: No Review of Symptoms REVIEW OF SYSTEMS GENERAL: No weight loss, malaise or fevers RESPIRATORY: Negative for cough, hemoptysis, wheezing, COPD, dyspnea or shortness of breath CARDIOVASCULAR: Negative for chest pain, leg swelling, hypertension, CHF or palpitations GI: No nausea, vomiting, or diarrhea SKIN: Negative for lesions, rash, and itching EXAM: BP 141/85 (BP Site: Left Arm, BP Position: Sitting, BP Cuff Size: Large Adult) Pulse 94 Resp 12 Ht 172.7 cm (5' 8) Wt 108.4 kg (239 lb) LMP 0 (more content not included)... [facility] 10-22-2024 History of Present illness Narrative Chief Complaint Patient presents with: Follow Up: diabetes follow up HPI Trice Zambrano is a 44 year old female who presents here today for Above Complaints.. DIABETES MELLITUS: Ms. Zambrano was last seen 6 months ago. Since our last visit she denies excessive thirst or increased frequency of urination, numbness, tingling or pain in extremities, new or unusual visual symptoms, and low sugar/hypoglycemic reactions. Follows a diabetic diet most of the time. She is compliant with medication(s) and is tolerating med(s) without any side effects. She reports checking her glucose on a four times a day schedule with sugars in the fasting 100-162 range with majority <140. Before [id number] with Majority around the 130-160s. Patient's last HgA1C was Hemoglobin A1C (%) Date Value 04/06/2024 8.3 08/03/2023 7.0 07/15/2021 6.9 06/01/2021 7.5 ) Last Ophthalmology exam was within the past 6 months and was negative for Diabetic Retinopathy. [facility]. Last Podiatry exam was within the past 12 months RLS symptoms improved on 1.5 mg Requip qhs. Past medical history, appointments, medications, allergies reviewed. Previous Medical History PAST MEDICAL HISTORY Diagnosis Date Cellulitis and abscess of buttock 04/[address] (HCC) Reversed Diabetes mellitus type II (HCC) Gestational diabetes Hyperlipidemia Kidney stones Dr. 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 Nance Family History FAMILY HISTORY Problem Relation Age of Onset Heart Mother Drug abuse Mother Stroke Father Hypertension Maternal Grandmother other (scleroderma) Paternal Grandmother Diabetes Maternal Uncle No Known Problems Son No Known Problems Daughter Patient Allergies ALLERGIES Allergen Reactions Metformin Diarrhea Occurred while on XR formulation Trulicity [Dulaglut* Vomiting Nausea/vomiting, diarrhea and epigastric pain. Current Medications Current Outpatient Medications on File Prior to Visit Medication Sig Insulin Olivet, Disposable, (BD ULTRA-FINE VINOD PEN NEEDLE) 32 gauge x 5/32 Inject 100 Each subcutaneously four times daily. insulin lispro (HUMALOG KWIKPEN) 100 unit/mL Inject 40 Units subcutaneously three times a day before meals. rOPINIRole (REQUIP) 0.5 mg tablet Take 3 tablets by mouth daily at bedtime. atorvastatin (LIPITOR) 10 mg tablet Take 1 tablet by mouth daily at bedtime. For cholesterol. lisinopril (ZESTRIL) 5 mg tablet Take 1 tablet by mouth once daily. Lancets (ACCU-CHEK SOFTCLIX LANCETS) Test blood sugar(s) 4 times daily and as needed. Dx: 250.02. Insulin: Yes Blood-Glucose Meter (ACCU-CHEK KENNY PLUS METER) Test glucose twice daily, 250.02. Insulin yes. Insulin Olivet, Disposable, (BD ULTRA-FINE VINOD PEN NEEDLE) 32 gauge x 5/32 Use one needle for each dose. 5/day. blood sugar diagnostic (ONETOUCH VERIO TEST STRIPS) test strip Test blood sugar(s) 4 times daily. Dx: Type 2 DM - Controlled E11.9 Insulin: Yes insulin degludec (TRESIBA FLEXTOUCH U-100) 100 unit/mL (3 mL) injection pen Inject 60 Units subcutaneously two times a day. Blood-Glucose Meter,Continuous (FREESTYLE KERRI 3 READER) misc 1 Device four times daily. Blood-Glucose Sensor (FREESTYLE KERRI 3 SENSOR) sheba 1 Device every 2 weeks. multivitamin tablet Take 1 tablet by mouth once daily. No current facility-administered medications on file prior to visit. Social History Social History Tobacco Use Smoking status: Never Smokeless tobacco: Never Vaping Use Vaping status: Never Used Substance Use Topics Alcohol use: No Drug use: No Review of Symptoms REVIEW OF SYSTEMS GENERAL: No weight loss, malaise or fevers RESPIRATORY: Negative for cough, hemoptysis, wheezing, COPD, dyspnea or shortness of breath CARDIOVASCULAR: Negative for chest pain, leg swelling, hypertension, CHF or palpitations GI: No nausea, vomiting, or diarrhea SKIN: Negative for lesions, rash, and itching EXAM: BP 141/85 (BP Site: Left Arm, BP Position: Sitting, BP Cuff Size: Large Adult) Pulse 94 Resp 12 Ht 172.7 cm (5' 8) Wt 108.4 kg (239 lb) LMP 03/08/2024 (Approximate) SpO2 98% BMI 36.34 kg/m General Appearance: Well appearing, alert, in no acute distress, well-hydrated, well nourished.. Skin: Skin color, texture, turgor normal, no suspicious rashes or lesions. Lungs: Lungs clear to auscultation. No wheezing, rhonchi, rales.. Heart: RRR without murmur, gallop, or rubs. No ectopy. Abdomen: Normal abdominal exam, Abdomen soft, non-tender. Bowel sounds normal. No masses, organomegaly. Extremities: No deformities, edema, skin discoloration, clubbing or cyanosis. Good capillary refill. . Health Maintenance List Depression Screening Never done Anxiety Screening Never done Cervical Cancer Screening Never done Dilated Retinal Exam due on 12/15/2022 HbA1C due on 07/07/2024 Mammogram Screening due on 02/02/2025 Covid-19 Vaccine( season) due on 09/25/2025 Urine Albumin:Creatinine Ratio due on 04/06/2025 LDL Cholesterol due on 04/06/2025 Diabetic Foot Exam due on 04/06/2025 Annual PCP Team Chronic Disease Visit due on 10/22/2025 DTaP,Tdap,Td Vaccine(2 - Td or Tdap) due on 10/10/2029 Influenza Vaccine Completed Hepatitis C Screening Completed HIV Screening Completed Pneumococcal Vaccine Completed HPV Vaccine Aged Out Hepatitis B Vaccine Discontinued Data reviewed Latest Ref Rng 04/06/2024 WBC 3.70 - 11.00 k/uL 12.86 (H) RBC 3.90 - 5.20 m/uL 4.60 Hemoglobin 11.5 - 15.5 g/dL 13.5 Hematocrit 36.0 - 46.0 % 42.3 MCV 80.0 - 100.0 fL 92.0 MCH 26.0 - 34.0 pg 29.3 MCHC 30.5 - 36.0 g/dL 31.9 RDW-CV 11.5 - 15.0 % 13.2 Platelet Count 150 - 400 k/uL 251 MPV 9.0 - 12.7 fL 11.6 Neut% % 66.7 Abs Neut (ANC) 1.45 - 7.50 k/uL 8.57 (H) Lymph% % 25.0 Abs Lymph 1.00 - 4.00 k/uL 3.22 Griggs% % 6.7 Abs Griggs <0.87 k/uL 0.86 Eosin% % 0.6 Abs Eosin <0.46 k/uL 0.08 Baso% % 0.5 Abs Baso <0.11 k/uL 0.07 Immature Gran % % 0.5 IMMATURE GRANS (ABS) <0.10 k/uL 0.06 NRBC /100 WBC 0.0 Absolute nRBC <0.01 k/uL <0.01 DTYPE Auto Protein, Total 6.3 - 8.0 g/dL 7.0 Albumin 3.9 - 4.9 g/dL 4.0 Calcium 8.5 - 10.2 mg/dL 9.7 Bilirubin, Total 0.2 - 1.3 mg/dL 0.2 Alkaline Phosphatase 34 - 123 U/L 101 AST 13 - 35 U/L 15 ALT 7 - 38 U/L 16 Glucose 74 - 99 mg/dL 94 BUN 7 - 21 mg/dL 30 (H) Creatinine 0.58 - 0.96 mg/dL 1.04 (H) Sodium 136 - 144 mmol/L 141 Potassium 3.7 - 5.1 mmol/L 4.2 Chloride 97 - 105 mmol/L 106 (H) CO2 22 - 30 mmol/L 24 Anion Gap 9 - 18 mmol/L 11 eGFR >=60 mL/min/1.73m 69 Total Cholesterol, Nonfasting <200 mg/dL 170 Triglycerides, Nonfasting <150 mg/dL 156 (H) HDL Cholesterol, Nonfasting >39 mg/dL 52 LDL Cholesterol, Nonfasting <100 mg/dL 87 Non HDL Cholesterol, Nonfasting <130 mg/dL 118 VLDL Cholesterol, Nonfasting <30 mg/dL 31 (H) Total Chol/HDL Ratio, Nonfasting <5.10 mg/dL 3.27 LDL/HDL Ratio, Nonfasting <2.54 mg/dL 1.67 Creatinine, Ur Random (UCRR) 20.0 - 300.0 mg/dL 102.8 Albumin, Urine Random mg/L 137.0 Albumin/Creat Ratio <30 mg/g 133 (H) Hemoglobin A1C 4.3 - 5.6 % 8.3 (H) Estimated Average Glucose mg/dL 192 Legend: (H) High ASSESSMENT/PLAN: 1. Type 2 diabetes mellitus with hyperglycemia, with long-term current use of insulin ([facility]) - ICD9: 250.00, 790.29, V58.67, ICD10: E11.65, Z79.4 (primary diagnosis) - Control undetermined, due for labs Increase Tresiba to 64 units BID and Humalog to 44 units BID. - Statin prescribed - This patient does not have an active medication from one of the medication groupers. - Blood glucose monitoring on a four times daily schedule - Counseled on healthy diet and regular exercise - Discussed need for and benefit of weight loss. BMI 36.34 kg/(m^2) - Discussed diabetic education issues of diabetes complications and monitoring required, hypoglycemic/hyperglycemic symptoms, medication-specific side effects and monitoring, and diabetic sick day rules - Follow up in 3 months, sooner should any other issues arise. - COMPREHENSIVE METABOLIC PANEL - HEMOGLOBIN A1C - INSULIN DEGLUDEC (U-100) 100 UNIT/ML (3 ML) SUBCUTANEOUS PEN - INSULIN LISPRO (U-100) 100 UNIT/ML SUBCUTANEOUS PEN 2. RLS (restless legs syndrome) - ICD9: 333.94, ICD10: G25.81 Improved on current regimen. 3. Elevated BP without diagnosis of hypertension - ICD9: 796.2, ICD10: R03.0 - Encouraged dietary sodium restriction/DASH diet - Recommended regular aerobic exercise. - Recommend home blood pressure monitoring, to bring results in on next visit - Recheck in 3 weeks, sooner if needed. - Goal of BP <140/90 Jean Claude Huitron MD documented in this encounter [facility] 09-25-2024 History of Present illness Narrative 09/25/2024 Patient presents with: Hospital F/U: TCM; [facility] SUBJECTIVE: This is a 44 year old that is here today for Above Complaints, HOSPITAL/ER FOLLOW UP: Reason for visit: perianal pain and swelling Which facility: [facility] Date of visit: 09/16/2024-09/18/2024 Diagnosis: rectal abscess Testing done: CT Pelvis, CMP, CBC with Diff, UA Treatment given: IV Vancomycin- discharged on Doxycyline and Amoxicillin Since discharge has been doing well. Will be completing her antibiotics today. Admits to a little nausea. Blood sugars running less than 200. Has upcoming eye appointment as she reports some difficulty seeing close up but her distance has improved. Denies diplopia. Denies fevers, chills, pain, swelling/redness of perineum, abdominal pain, or vomiting. Available hospital records reviewed TRANSITION CARE MANAGEMENT (TCM) INITIAL CONTACT [employer] Chemist Outreach Provider Action/FYI Initial contact with patient post discharge, spoke to patient. Patient identified by name and . TRANSITION CARE MANAGEMENT INITIAL OUTREACH DOCUMENTATION: 09/19/2024 Date of Outreach: Date of Discharge 09/18/2024 SUMMARY: -Pt discharged from [facility] on 09/18/24. -Admitted for: Rectal Abcess Do you have a hospital follow up appointment with your PCP? Appointment on 09/[address] Huitron Yes. Patient scheduled appointment and aware of date/time. MEDICATIONS: Many patients have questions or concerns about their medications once they are home. Were you prescribed any new medications? Yes. Amoxicillin and Doxycycline Zofran and pain medication Were you told to hold any medications? No Were any of your medications discontinued? No Do you have any questions about getting or taking your medications? No Your discharge instructions/After visit Summary (AVS) are important in guiding you through the recovery process. Is there anything I might help you understand? No Do you have all the necessary equipment and supplies at home? Yes Medical records from recent hospitalization: Care Everywhere PAST MEDICAL HISTORY Diagnosis Date Cellulitis and abscess of buttock 04/[address] (HCC) Reversed Diabetes mellitus type II (HCC) Gestational diabetes Hyperlipidemia Kidney stones Dr. 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 insulin lispro (HUMALOG KWIKPEN) 100 unit/mL Inject 40 Units subcutaneously three times a day before meals. rOPINIRole (REQUIP) 0.5 mg tablet Take 3 tablets by mouth daily at bedtime. atorvastatin (LIPITOR) 10 mg tablet Take 1 tablet by mouth daily at bedtime. For cholesterol. lisinopril (ZESTRIL) 5 mg tablet Take 1 tablet by mouth once daily. Lancets (ACCU-CHEK SOFTCLIX LANCETS) Test blood sugar(s) 4 times daily and as needed. Dx: 250.02. Insulin: Yes Blood-Glucose Meter (ACCU-CHEK KENNY PLUS METER) Test glucose twice daily, 250.02. Insulin yes. Insulin Olivet, Disposable, (BD ULTRA-FINE VINOD PEN NEEDLE) 32 gauge x 5/32 Use one needle for each dose. 5/day. blood sugar diagnostic (ONETOUCH VERIO TEST STRIPS) test strip Test blood sugar(s) 4 times daily. Dx: Type 2 DM - Controlled E11.9 Insulin: Yes insulin degludec (TRESIBA FLEXTOUCH U-100) 100 unit/mL (3 mL) injection pen Inject 60 Units subcutaneously two times a day. Blood-Glucose Meter,Continuous (FREESTYLE KERRI 3 READER) misc 1 Device four times daily. Blood-Glucose Sensor (FREESTYLE KERRI 3 SENSOR) sheba 1 Device every 2 weeks. multivitamin tablet Take 1 tablet by mouth once daily. No current facility-administered medications for this visit. Medications and allergies reviewed by this provider. SOCIAL HISTORY Social History Tobacco Use Smoking status: Never Smokeless tobacco: Never Vaping Use Vaping status: Never Used Substance Use Topics Alcohol use: No Drug use: No REVIEW OF SYSTEMS All other reviewed and negative other than HPI. OBJECTIVE: BP 136/88 Pulse 82 Resp 16 Wt 110.6 kg (243 lb 13.3 oz) LMP 03/08/2024 (Approximate) SpO2 96% BMI 37.07 kg/m . Vital signs reviewed by this provider. APPEARANCE Well appearing, alert, in no acute distress, well-hydrated, well nourished. EYES conjunctiva and sclera normal. HEART RRR with normal S1 and S2, no murmurs, no gallops, no JVD appreciated LUNG clear to auscultation. No wheezes, rhonchi or rales ABDOMEN no tenderness to palpation RECTAL deferred SKIN Skin color, texture, turgor normal, no suspicious rashes or lesions to exposed skin Depression Screening Never done Anxiety Screening Never done Cervical Cancer Screening Never done Dilated Retinal Exam due on 12/15/2022 HbA1C due on 07/07/2024 Influenza Vaccine(1) due on 07/08/2024 Mammogram Screening due on 02/02/2025 Covid-19 Vaccine( - season) due on 09/25/2025 Urine Albumin:Creatinine Ratio due on 04/06/2025 LDL Cholesterol due on 04/06/2025 Diabetic Foot Exam due on 04/06/2025 Annual PCP Team Chronic Disease Visit due on 09/25/2025 DTaP,Tdap,Td Vaccine(2 - Td or Tdap) due on 10/10/2029 Hepatitis C Screening Completed HIV Screening Completed Pneumococcal Vaccine Completed HPV Vaccine Aged Out Hepatitis B Vaccine Discontinued ASSESSMENT/PLAN: 1. Hospital discharge follow-up - ICD9: V67.59, ICD10: Z09 (primary diagnosis) - plan as below - follow-up as scheduled next Tuesday for routine visit 2. Encounter for immunization - ICD9: V03.89, ICD10: Z23 - INFLUENZA VACCINE, AGE 6MO-64YR, TRIVALENT (AFLURIA, FLULAVAL, FLUVIRIN, FLUZONE) 3. Rectal abscess - ICD9: 566, ICD10: K61.1 - resolved - complete last day of antibiotics Irlanda Hogan APRN.JAISON Prescription instructions reviewed with patient as applicable. Patient advised if symptoms do not improve or if symptoms worsen sooner, to contact their primary care physician. Potential red flag symptoms discussed with the patient. Reviewed appropriate action plan to take if red flag symptoms occur. Patient agreeable to treatment plan. I spent a total of 30 minutes on the date of the service which included preparing to see the patient, [id number] patient care, completing clinical documentation, obtaining and/or reviewing separately obtained history, performing a medically appropriate examination, counseling and educating the patient/family/caregiver, and ordering medications, tests, or procedures. documented in this encounter [facility] 09-25-2024 Note HNO ID: [id number] Author: IRLANDA HOGAN APRN.JAISON Service: ? Author Type: Nurse Practitioner Type: Progress Notes Filed: 09/25/2024 08:29 Note Text: 09/25/2024 Patient presents with: Hospital F/U: TCM; [facility] SUBJECTIVE: This is a 44 year old that is here today for Above Complaints, HOSPITAL/ER FOLLOW UP: Reason for visit: perianal pain and swelling Which facility: [facility] Date of visit: 09/16/2024-09/18/2024 Diagnosis: rectal abscess Testing done: CT Pelvis, CMP, CBC with Diff, UA Treatment given: IV Vancomycin- discharged on Doxycyline and Amoxicillin Since discharge has been doing well. Will be completing her antibiotics today. Admits to a little nausea. Blood sugars running less than 200. Has upcoming eye appointment as she reports some difficulty seeing close up but her distance has improved. Denies diplopia. Denies fevers, chills, pain, swelling/redness of perineum, abdominal pain, or vomiting. Available hospital records reviewed TRANSITION CARE MANAGEMENT (TCM) INITIAL CONTACT [employer] Chemist Outreach Provider Action/FYI Initial contact with patient post discharge, spoke to patient. Patient identified by name and . TRANSITION CARE MANAGEMENT INITIAL OUTREACH DOCUMENTATION: 09/19/2024 Date of Outreach: Date of Discharge 09/18/2024 SUMMARY: -Pt discharged from [facility] on 09/18/24. -Admitted for: Rectal Abcess Do you have a hospital follow up appointment with your PCP? Appointment on 09/[address] Huitron Yes. Patient scheduled appointment and aware of date/time. MEDICATIONS: Many patients have questions or concerns about their medications once they are home. Were you prescribed any new medications? Yes. Amoxicillin and Doxycycline Zofran and pain medication Were you told to hold any medications? No Were any of your medications discontinued? No Do you have any questions about getting or taking your medications? No Your discharge instructions/After visit Summary (AVS) are important in guiding you through the recovery process. Is there anything I might help you understand? No Do you have all the necessary equipment and supplies at home? Yes Medical records from recent hospitalization: Care Everywhere PAST MEDICAL HISTORY Diagnosis Date Cellulitis and abscess of buttock 04/[address] (HCC) Reversed Diabetes mellitus type II (HCC) Gestational diabetes Hyperlipidemia Kidney stones Dr. 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 insulin lispro (HUMALOG KWIKPEN) 100 unit/mL Inject 40 Units subcutaneously three times a day before meals. rOPINIRole (REQUIP) 0.5 mg tablet Take 3 tablets by mouth daily at bedtime. atorvastatin (LIPITOR) 10 mg tablet Take 1 tablet by mouth daily at bedtime. For cholesterol. lisinopril (ZESTRIL) 5 mg tablet Take 1 tablet by mouth once daily. Lancets (ACCU-CHEK SOFTCLIX LANCETS) Test blood sugar(s) 4 times daily and as needed. Dx: 250.02. Insulin: Yes Blood-Glucose Meter (ACCU-CHEK KENNY PLUS METER) Test glucose twice daily, 250.02. Insulin yes. Insulin Olivet, Disposable, (BD ULTRA-FINE VINOD PEN NEEDLE) 32 gauge x 5/32 Use one needle for each dose. 5/day. blood sugar diagnostic (Zhima TechTOUCH VERIO TEST STRIPS) test strip Test blood sugar(s) 4 times daily. Dx: Type 2 DM - Controlled E11.9 Insulin: Yes insulin degludec (TRESIBA FLEXTOUCH U-100) 100 unit/mL (3 mL) injection pen Inject 60 Units subcutaneously two times a day. Blood-Glucose Meter,Continuous (FREESTYLE KERRI 3 READER) misc 1 Device four times daily. Blood-Glucose Sensor (FREESTYLE KERRI 3 SENSOR) sheba 1 Device every 2 weeks. multivitamin tablet Take 1 tablet by mouth once daily. No current facility-administered medications for this visit. Medications and allergies reviewed by this provider. SOCIAL HISTORY Social History Tobacco Use Smoking status: Never Smokeless tobacco: Never Vaping Use Vaping status: Never Used Substance Use Topics Alcohol use: No Drug use: No REVIEW OF SYSTEMS All other reviewed and negative other than HPI. OBJECTIVE: BP 136/88 Pulse 82 Resp 16 Wt 110.6 kg (243 lb 13.3 oz) LMP 03/08/2024 (Approximate) SpO2 96% BMI 37.07 kg/m? . Vital signs reviewed by this provider. APPEARANCE Well appearing, alert, in no acute distress, well-hydrated, well nourished. EYES conjunctiva and sclera normal. HEART RRR with normal S1 and S2, no murmurs, no gallops, no JVD appreciated LUNG clear to auscultation. No wheezes, rhonchi or rales ABDOMEN no tenderness to p (more content not included)... [facility] 09-24-2024 Telephone encounter Note Patient calls back and is rescheduled to see Irlanda tomorrow morning. Alejandra Larkin RN [facility] 09-24-2024 Miscellaneous Notes Patient calls back and is rescheduled to see Irlanda tomorrow morning. Alejandra Larkin RN Telephone call placed to patient. Message left to call office back to change appointment. Gabriela Llamas LPN documented in this encounter [facility] 09-24-2024 Telephone encounter Note Telephone call placed to patient. Message left to call office back to change appointment. Gabriela Llamas LPN [facility] 09-20-2024 Note HNO ID: [id number] Author: JEAN CLAUDE HUITRON MD Service: ? Author Type: Physician Type: Progress Notes Filed: 09/20/2024 11:18 Note Text: Reviewed. [facility] 09-20-2024 History of Present illness Narrative Reviewed. Patient returned call. TCM questions reviewed. Brayden Bird RN 2nd attempt at reaching patient. Message left to call office back. Gabriela Llamas LPN TRANSITION CARE MANAGEMENT (TCM) INITIAL CONTACT [employer] Chemist Outreach Provider Action/FYZachary Initial contact with patient post discharge, spoke to patient. Patient identified by name and . TRANSITION CARE MANAGEMENT INITIAL OUTREACH DOCUMENTATION: 09/19/2024 Date of Outreach: Date of Discharge 09/18/2024 SUMMARY: -Pt discharged from [facility] on 09/18/24. -Admitted for: Rectal Abcess Do you have a hospital follow up appointment with your PCP? Appointment on 09/[address] Huitron Yes. Patient scheduled appointment and aware of date/time. MEDICATIONS: Many patients have questions or concerns about their medications once they are home. Were you prescribed any new medications? Yes. Amoxicillin and Doxycycline Zofran and pain medication Were you told to hold any medications? No Were any of your medications discontinued? No Do you have any questions about getting or taking your medications? No Your discharge instructions/After visit Summary (AVS) are important in guiding you through the recovery process. Is there anything I might help you understand? No Do you have all the necessary equipment and supplies at home? Yes Medical records from recent hospitalization: Care Everywhere documented in this encounter [facility] 09-19-2024 Note HNO ID: [id number] Author: BRAYDEN BIRD RN Service: ? Author Type: Registered Nurse Type: Progress Notes Filed: 10/22/2024 03:03 Note Text: Patient returned call. TCM questions reviewed. Brayden Bird RN [facility] 09-19-2024 Note HNO ID: [id number] Author: GABRIELA LLAMAS LPN Service: ? Author Type: LICENSED NURSE Type: Progress Notes Filed: 09/19/2024 19:39 Note Text: 2nd attempt at reaching patient. Message left to call office back. Gabriela Llamas LPN [facility] 09-19-2024 Note HNO ID: [id number] Author: BRAYDEN BIRD RN Service: ? Author Type: Registered Nurse Type: Progress Notes Filed: 10/22/2024 03:03 Note Text: TRANSITION CARE MANAGEMENT (TCM) INITIAL CONTACT [employer] Chemist Outreach Provider Action/FYI Initial contact with patient post discharge, spoke to patient. Patient identified by name and . TRANSITION CARE MANAGEMENT INITIAL OUTREACH DOCUMENTATION: 09/19/2024 Date of Outreach: Date of Discharge 09/18/2024 SUMMARY: -Pt discharged from [facility] on 09/18/24. -Admitted for: Rectal Abcess Do you have a hospital follow up appointment with your PCP? Appointment on 09/[address] Huitron Yes. Patient scheduled appointment and aware of date/time. MEDICATIONS: Many patients have questions or concerns about their medications once they are home. Were you prescribed any new medications? Yes. Amoxicillin and Doxycycline Zofran and pain medication Were you told to hold any medications? No Were any of your medications discontinued? No Do you have any questions about getting or taking your medications? No Your discharge instructions/After visit Summary (AVS) are important in guiding you through the recovery process. Is there anything I might help you understand? No Do you have all the necessary equipment and supplies at home? Yes Medical records from recent hospitalization: Care Everywhere [facility] 09-19-2024 Note Patient Outreach (FA MPWS) TRICE ZAMBRANO ([id number]) 1980 F Date Time Provider Department 09/19/24 [facility] During your visit today, we recorded the following information about you: Brayden Bird RN 10/22/2024 3:03 AM Signed TRANSITION CARE MANAGEMENT (TCM) INITIAL CONTACT [employer] Chemist Outreach Provider Action/FYI Initial contact with patient post discharge, spoke to patient. Patient identified by name and . TRANSITION CARE MANAGEMENT INITIAL OUTREACH DOCUMENTATION: 09/19/2024 Date of Outreach: Date of Discharge 09/18/2024 SUMMARY: -Pt discharged from [facility] on 09/18/24. -Admitted for: Rectal Abcess Do you have a hospital follow up appointment with your PCP? Appointment on 09/[address] Huitron Yes. Patient scheduled appointment and aware of date/time. MEDICATIONS: Many patients have questions or concerns about their medications once they are home. Were you prescribed any new medications? Yes. Amoxicillin and Doxycycline Zofran and pain medication Were you told to hold any medications? No Were any of your medications discontinued? No Do you have any questions about getting or taking your medications? No Your discharge instructions/After visit Summary (AVS) are important in guiding you through the recovery process. Is there anything I might help you understand? No Do you have all the necessary equipment and supplies at home? Yes Medical records from recent hospitalization: Care Everywhere Gabriela Llamas LPN 09/19/2024 7:39 PM Signed 2nd attempt at reaching patient. Message left to call office back. GERARD Medrano Donna M, RN 10/22/2024 3:03 AM Signed Patient returned call. TCM questions reviewed. WINNIE Hurt Christopher B, MD 09/20/2024 11:18 AM Signed Reviewed. Allergies As of Date: 09/19/2024 Noted Allergy Reaction METFORMIN 08/26/2015 6 - Diarrhea Comments: Occurred while on XR formulation TRULICITY (DULAGLUTIDE) 03/11/2016 11 - Vomiting Comments: Nausea/vomiting, diarrhea and epigastric pain. Date Reviewed: 09/16/2024 Reviewed by: Melinda Powers MA - Fully Assessed Reason for Visit: Transition Of Care [4074] Cmt: [facility] discharge 09/18/24 Prescriptions as of 10/22/2024 - Insulin Olivet, Disposable, (BD ULTRA-FINE VINOD PEN NEEDLE) 32 gauge x 5/32 Inject 100 Each subcutaneously four times daily. - insulin lispro (HUMALOG KWIKPEN) 100 unit/mL Inject 40 Units subcutaneously three times a day before meals. - rOPINIRole (REQUIP) 0.5 mg tablet Take 3 tablets by mouth daily at bedtime. - atorvastatin (LIPITOR) 10 mg tablet Take 1 tablet by mouth daily at bedtime. For cholesterol. - lisinopril (ZESTRIL) 5 mg tablet Take 1 tablet by mouth once daily. - Lancets (ACCU-CHEK SOFTCLIX LANCETS) Test blood sugar(s) 4 times daily and as needed. Dx: 250.02. Insulin: Yes - Blood-Glucose Meter (ACCU-CHEK KENNY PLUS METER) Test glucose twice daily, 250.02. Insulin yes. - Insulin Olivet, Disposable, (BD ULTRA-FINE VINOD PEN NEEDLE) 32 gauge x 5/32 Use one needle for each dose. 5/day. - blood sugar diagnostic (ONETOUCH VERIO TEST STRIPS) test strip Test blood sugar(s) 4 times daily. Dx: Type 2 DM - Controlled E11.9 Insulin: Yes - insulin degludec (TRESIBA FLEXTOUCH U-100) 100 unit/mL (3 mL) injection pen Inject 60 Units subcutaneously two times a day. - Blood-Glucose Meter,Continuous (FREESTYLE KERRI 3 READER) misc 1 Device four times daily. - Blood-Glucose Sensor (FREESTYLE KERRI 3 SENSOR) sheba 1 Device every 2 weeks. - multivitamin tablet Take 1 tablet by mouth once daily. Problem List As Of Date 09/19/2024 Noted Resolved Diabetes mellitus type 2, uncontrolled, without*03/09/2012 Peripheral polyneuropathy (HCC) [G62.9] 08/26/2015 Type 2 diabetes mellitus with hyperglycemia, wi* Obesity (BMI 30-39.9) [E66.9] Hyperlipidemia [E78.5] Ventral hernia [K43.9] 04/22/2022 RLS (restless legs syndrome) [G25.81] 04/24/2022 Encounter Status:Closed by EPIC, PRODUSER on 10/22/24 [facility] 09-18-2024 Note [facility] Medical Records Department [address] [place] [address] Discharge Summary 09/18/24 1102 MR#: [id number] Acct: [id number] Name: TRICE ZAMBRANO Rep #: [id number] : 1980 44 From: Jorge Frazier DO PCP: Dr. Joaquin Huitron MD Status:DIS IN Location: [place] [address] Providers Date of Admission: 09/16/24 Date of Discharge: 09/18/24 Primary Care Physician: Dr. Joaquin Huitron MD Consultations 09/16/24 17:07 Consult: Infectious Disease Routine Consulting Provider: Fran Daley Reason for Consult: Recurrent abscess EMERGENT Consult: No MD Notified: Yes Date Notified: 09/16/24 Time Notified: 16:23 Method of Notification: Text 09/17/24 07:46 Consult: General Surgery Routine Consulting Provider: Tristin Solo Reason for Consult: abcess EMERGENT Consult: No Notified: Yes Date Notified: 09/17/24 Time Notified: 07:46 Method of Notification: Verbal Reason For Visit: RECTAL ABSCESS Diagnosis Discharge Diagnosis (1) Abscess of deep perineal space: Status: Acute Code(s): N34.0 - Urethral abscess (2) Abscess or cellulitis of perineum: Status: Acute Plan 1. Abscess in the perineal area with cellulitis-infectious diseases wrote in their note today the patient could be discharged with 1 week of doxycycline and Augmentin, I will discharge the patient today #2 type 1 diabetes, under poor control-patient's insulin will be adjusted as needed, patient's hemoglobin A1c was 12.7 #3 hyperlipidemia-patient is on a statin Total clinical time spent by myself addressing patient's medical issues, reviewing all of her data, and collaborating with patient's care team: 35 minutes Medications at Discharge Home Medications insulin glargine 100 unit/mL (3 mL) subcutaneous pen (Basaglar KwikPen U-100 Insulin) 60 unit subcut BID 04/23/21 insulin lispro 100 unit/mL subcutaneous pen (Humalog KwikPen (U-100) Insulin) 40 unit subcut TID 04/23/21 atorvastatin 10 mg tablet 10 mg PO QHS 09/14/21 lisinopril 5 mg tablet 5 mg PO DAILY 09/14/21 ropinirole 0.5 mg tablet 1.5 mg PO QHS 09/16/24 amoxicillin 875 mg-potassium clavulanate 125 mg tablet 1 tab PO BID #14 tabs 09/18/24 doxycycline monohydrate 100 mg capsule 100 mg PO BID #14 caps 09/18/24 hydrocodone-acetaminophen 5-325mg 5mg-325mg 1 tab PO Q6H PRN pain 7 days #20 tabs 09/18/24 ondansetron HCl 4 mg tablet 4 mg PO Q6H PRN nausea and vomiting #14 tabs 09/18/24 Hospital Course Operations None Procedures None Summary of Care Provided Minutes Spent on Discharge: 30 Hospital Course: This 44-year-old white female was seen in the emergency room at [facility] with complaints of pain with fever and chills in the perineal area. Patient has had a past history of infections with surgeries that were carried out and [facility] in 2020 2021. Patient went to urgent care for evaluation was referred to the ER for further evaluation. Labs obtained in the emergency room showed a normal CBC, chemistry profile was remarkable for glucose of 319, there were 10-25 WBCs on her UA and +1 bacteria but there was also squamous epithelial cells noted. 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 Patient was felt to have cellulitis and possible abscess to the perineal area, she was admitted to [place] [address] and placed on IV antibiotics. Patient was seen by general surgery who did not feel that she had an indication for surgery. She was also seen by infectious diseases. Patient's hemoglobin A1c was elevated indicating that she had poor control of her blood sugars as an outpatient. On 09/18/2024, patient was seen and examined: On examination she appeared in good health and spirits, she does not appear to be in any distress. Vital signs as documented. Skin warm and dry and without overt rashes. Neck without JVD, thyroid appears normal, trachea is midline, neck is supple. Lungs clear, normal air movement was noted. Heart exam notable for regular rhythm, normal sounds and absence of murmurs, rubs or gallops. Abdomen unremarkable and without evidence of organomegaly, masses, or abdominal aortic enlargement, bowel sounds are present in all 4 quadrants, no abdominal tenderness was noted. Extremities nonedematous, no cyanosis was noted, no clubbing was noted. Neuro: Cranial nerves II through XII are grossly intact, no focal motor deficits were noted, sensation to light touch and pinprick is intact, motor exam 5/5 throughout. Psych: Patient is alert and oriented x3, she does not appear anxious or depressed, she does not appear agitated. Patient was felt to be stable for discharge home on 09/18/2024. Weight / BMI Weight Weight: 86.183 kg Body M (more content not included)... [facility] 09-16-2024 Note HNO ID: [id number] Author: RONY CHÁVEZ APRN.[facility] Service: ? Author Type: Nurse Practitioner Type: Progress Notes Filed: 09/16/2024 11:03 Note Text: Patient came in with possible perineal abscess. Patient has had them before. Patient has had necrotizing fasciitis in that area previously. This caused her to be in ICU and have significant medical complications from it. Due to risk factors patient is being sent to the emergency room where lab work can be collected and the proper treatment can be given. Patient was understandable and will take her self now [facility] 09-16-2024 History of Present illness Narrative Patient came in with possible perineal abscess. Patient has had them before. Patient has had necrotizing fasciitis in that area previously. This caused her to be in ICU and have significant medical complications from it. Due to risk factors patient is being sent to the emergency room where lab work can be collected and the proper treatment can be given. Patient was understandable and will take her self now documented in this encounter [facility] 08-29-2024 Telephone encounter Note Detailed VM left on pt's identified voicemail of information below. Reena Crooks LPN [facility] 08-29-2024 Miscellaneous Notes Detailed VM left on pt's identified voicemail of information below. Reena Crooks LPN Please give message to pt when she calls. Other prescriptions refilled for 30 days. Pt will need apt in office for future refills. Reena Crooks LPN Left a message for pt to call the office and ask to speak to a nurse. Reena Crooks LPN Patient is overdue for appointment. Please assist in scheduling. Irlanda Hogan APRN.GANDY DANCER documented in this encounter [facility] 08-27-2024 Telephone encounter Note See other phone encounter. Reena Crooks LPN [facility] 08-27-2024 Miscellaneous Notes See other phone encounter. Reena Crooks LPN Patient is overdue for 3 month f/u and needs to reschedule OV. Please call. Will send in rx for 30 days. Prescription Refill Information The patient has been identified by name and date of : Yes Caregiver verified no other encounters exist for this prescription request: Yes Caregiver confirmed with patient/requestor that no other refills are due, in the near future, with this provider at this time: Yes The last office visit in the department: 04/06/2024 Does the patient have a future office visit with this provider/department: No Requested Prescriptions Pending Prescriptions Disp Refills insulin lispro (HUMALOG KWIKPEN) 100 unit/mL 16 Each 0 Sig: Inject 40 Units subcutaneously three times a day before meals. rOPINIRole (REQUIP) 0.5 mg tablet 270 tablet 1 Sig: Take 3 tablets by mouth daily at bedtime. Refused Prescriptions Disp Refills insulin degludec (TRESIBA FLEXTOUCH U-100) 100 unit/mL (3 mL) injection pen 108 mL 1 Sig: Inject 60 Units subcutaneously two times a day. Rosangela Paul LPN August 27, 2024 11:57 AM documented in this encounter [facility] 08-27-2024 Telephone encounter Note Please give message to pt when she calls. Other prescriptions refilled for 30 days. Pt will need apt in office for future refills. Reena Crooks LPN [facility] 08-27-2024 Telephone encounter Note Phoned patient and detailed message left on secure VM that patient formally identifies herself regarding she needs a OV and 30 day scripts sent for requested meds in the meantime. Celeste Villa LPN [facility] 08-27-2024 Miscellaneous Notes Phoned patient and detailed message left on secure VM that patient formally identifies herself regarding she needs a OV and 30 day scripts sent for requested meds in the meantime. Celeste Villa LPN Patient is overdue for 3 month f/u and needs to reschedule OV. Please call. Will send in rx for 30 days. Prescription Refill Information The patient has been identified by name and date of : Yes Caregiver verified no other encounters exist for this prescription request: Yes Caregiver confirmed with patient/requestor that no other refills are due, in the near future, with this provider at this time: Yes The last office visit in the department: 04/06/2024 Does the patient have a future office visit with this provider/department: No Requested Prescriptions Pending Prescriptions Disp Refills atorvastatin (LIPITOR) 10 mg tablet 90 tablet 0 Sig: Take 1 tablet by mouth daily at bedtime. For cholesterol. lisinopril (ZESTRIL) 5 mg tablet 90 tablet 0 Sig: Take 1 tablet by mouth once daily. Rosangela Paul LPN August 27, 2024 12:11 PM documented in this encounter [facility] 08-27-2024 Telephone encounter Note Patient is overdue for 3 month f/u and needs to reschedule OV. Please call. Will send in rx for 30 days. [facility] 08-27-2024 Telephone encounter Note Patient is overdue for 3 month f/u and needs to reschedule OV. Please call. Will send in rx for 30 days. [facility] 08-27-2024 Telephone encounter Note Prescription Refill Information The patient has been identified by name and date of : Yes Caregiver verified no other encounters exist for this prescription request: Yes Caregiver confirmed with patient/requestor that no other refills are due, in the near future, with this provider at this time: Yes The last office visit in the department: 04/06/2024 Does the patient have a future office visit with this provider/department: No Requested Prescriptions Pending Prescriptions Disp Refills atorvastatin (LIPITOR) 10 mg tablet 90 tablet 0 Sig: Take 1 tablet by mouth daily at bedtime. For cholesterol. lisinopril (ZESTRIL) 5 mg tablet 90 tablet 0 Sig: Take 1 tablet by mouth once daily. Rosangela Paul LPN August 27, 2024 12:11 PM [facility] 08-27-2024 Telephone encounter Note Prescription Refill Information The patient has been identified by name and date of : Yes Caregiver verified no other encounters exist for this prescription request: Yes Caregiver confirmed with patient/requestor that no other refills are due, in the near future, with this provider at this time: Yes The last office visit in the department: 04/06/2024 Does the patient have a future office visit with this provider/department: No Requested Prescriptions Pending Prescriptions Disp Refills insulin lispro (HUMALOG KWIKPEN) 100 unit/mL 16 Each 0 Sig: Inject 40 Units subcutaneously three times a day before meals. rOPINIRole (REQUIP) 0.5 mg tablet 270 tablet 1 Sig: Take 3 tablets by mouth daily at bedtime. Refused Prescriptions Disp Refills insulin degludec (TRESIBA FLEXTOUCH U-100) 100 unit/mL (3 mL) injection pen 108 mL 1 Sig: Inject 60 Units subcutaneously two times a day. Rosangela Paul LPN August 27, 2024 11:57 AM [facility] 08-27-2024 Telephone encounter Note Left a message for pt to call the office and ask to speak to a nurse. Reena Crooks LPN [facility] 08-27-2024 Telephone encounter Note Patient is overdue for appointment. Please assist in scheduling. Irlanda Hogan APRN.GANDY DANCER [facility] 07-17-2024 Telephone encounter Note Telephoned the patient regarding cancelled appt. Left a message. [facility] 07-17-2024 Miscellaneous Notes Telephoned the patient regarding cancelled appt. Left a message. Primary Care Pharmacy Rescheduling Outreach Patient cancelled new pharm visit on 06/14 and has not rescheduled yet. Call center, please contact patient and reschedule in person, telephone, and virtual visit for Diabetes management within ~4 week(s). (Visit length: 60 minutes) Thank you, Indu Pham, PharmDave, BCACP Primary Care Clinical Safety Sealer 07/17/2024 10:49 AM documented in this encounter [facility] 07-17-2024 Telephone encounter Note Primary Care Pharmacy Rescheduling Outreach Patient cancelled new pharm visit on 06/14 and has not rescheduled yet. Call center, please contact patient and reschedule in person, telephone, and virtual visit for Diabetes management within ~4 week(s). (Visit length: 60 minutes) Thank you, Indu Pham, PharmD, BCACP Primary Care Clinical Safety Sealer 07/17/2024 10:49 AM Electronically signed by Indu Pham [facility], located within [facility] at 07/17/2024 10:50 AM EDT [facility] Work Phone: 07-16-2024 Telephone encounter Note Patient active MyChart. Patient notified via [employer] message. Jonathan Kim MA [facility] 07-16-2024 Miscellaneous Notes Patient active MyChart. Patient notified via [employer] message. Jonathan Kim MA Left VM instructing patient to return call to receive results. Gabi Hsu MA Please let patient know she does not have a UTI. Follow-up with PCP for persistent symptoms documented in this encounter [facility] 07-13-2024 Telephone encounter Note Left VM instructing patient to return call to receive results. Gabi Hsu MA [facility] 07-13-2024 Telephone encounter Note Please let patient know she does not have a UTI. Follow-up with PCP for persistent symptoms [facility] Work Phone: 07-11-2024 Instructions Tahmina Cota - 07/11/2024 3:01 PM EDT ASSESSMENT/PLAN: 1. Sore throat - ICD9: 462, ICD10: J02.9 (primary diagnosis) - STREP A MOLECULAR (POC) - COVID & INFLUENZA A/B & RSV PCR, ROUTINE- will call patient with results 2. Fever, unspecified fever cause - ICD9: 780.60, ICD10: R50.9 - UA DIP, URINE (POC) Office Visit on 07/11/2024 Component Date Value Ref Range Status Strep A (POCT) 07/11/2024 Negative Negative Final Procedural Control 07/11/2024 Valid Final GLUCOSE UA (POCT) 07/11/2024 500 (A) Negative mg/dL Final BILIRUBIN UA (POCT) 07/11/2024 Negative Negative Final KETONE UA (POCT) 07/11/2024 15 (A) Negative mg/dL Final SPECIFIC GRAVITY UA (POCT) 07/11/2024 1.015 1.005 - 1.030 Final HEMOGLOBIN/BLOOD UA (POCT) 07/11/2024 Negative Negative Final PH UA (POCT) 07/11/2024 7.0 4.5 - 8.0 Final PROTEIN UA (POCT) 07/11/2024 Trace (A) Negative mg/dL Final UROBILINOGEN UA (POCT) 07/11/2024 0.2 Normal E.U./dL Final NITRITE UA (POCT) 07/11/2024 Negative Negative Final LEUKOCYTES UA (POCT) 07/11/2024 Negative Negative Final COLOR UA (POCT) 07/11/2024 Yellow Final CLARITY UA (POCT) 07/11/2024 Clear Final - URINE CULTURE- Pending - COVID & INFLUENZA A/B & RSV PCR, ROUTINE- Pending Patient advised to continue monitoring symptoms. Patient will be notified when test results have come back. If symptoms persist or fail to improve patient advised to follow-up with primary provider for further evaluation. Patient is agreeable with plan. FEVER GENERAL INFORMATION: A fever is a temperature taken by mouth or rectum that is higher than 100.4F (38C) in someone who has been resting. Infections commonly cause fever, and children may run higher temperatures than adults. A fever by itself may not be dangerous unless it goes above 105F (40.5C). INSTRUCTIONS: 1. The patient will be better off decreasing his or her activity until he is feeling better. 2. Encourage the patient to drink extra fluids. He/she may not feel like eating much solid food. 3. During this illness, you may take the patient's temperature in the morning, at bedtime, every 4 hours during the day, or more often if the patient looks ill. 4. You may use medications to bring down the patient's fever. Ibuprofen or acetaminophen are good choices. Follow the instructions on the bottle for the appropriate dosage for the patient. Unless your doctor has recommended using aspirin, you should avoid giving aspirin to children. 5. If your child's temperature is above 104F (39.4C), the doctor may suggest you give him/her a sponge bath. Use lukewarm water in a warm room. You should make your child damp, not soaking wet. Do NOT use a fan or ice or cold water, and do not let him/her get chilled. Shivering can make things worse. DO NOT USE RUBBING ALCOHOL! 6. The patient may return to school/daycare or work when the temperature is normal (98.6F or 37C). CONTACT YOUR DOCTOR IF THE PATIENT: 1. Continues to run a fever despite antibiotics for 48 hours. 2. Develops new symptoms. 3. Shows a marked change in behavior, level of consciousness, or level of activity. RETURN TO THE ED IF: 1. The patient develops a temperature over 105F (40.5C). 2. The patient has a seizure (convulsion), develops abnormal movements of the face, arms or legs, or has difficulty breathing. 3. The patient is dizzy, has a stiff neck, or cannot walk or talk normally. 4. The patient becomes more irritable or listless (not interested in his or her surroundings, does not get soothed by you holding him or her). Tahmina Cota, Student ARMATURE VARNISHER documented in this encounter [facility] 07-11-2024 Note HNO ID: [id number] Author: LETITIA ODELL APRN.GANDY DANCER Service: ? Author Type: Nurse Practitioner Type: Progress Notes Filed: 07/11/2024 15:11 Note Text: Subjective Trice Zambrano is a 44 year old female who presents sore throat, headache, and fever x 5 days. HPI Patient states she has a sore throat and headache that started five days ago, and a fever that started yesterday. Highest temperature at home was 102. Patient has been using Tylenol with relief from symptoms. She reports body aches and has concerns for her blood glucose levels, this morning her fasting glucose was 326, and she states that when she is sick her blood sugars usually run high. 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 Patient denies runny nose, cough, nausea, vomiting, chills, and diarrhea. Review of Systems Constitutional: Positive for fever and malaise/fatigue. Body aches HENT: Positive for sinus pain. Eyes: Negative. Respiratory: Negative. Cardiovascular: Negative. Gastrointestinal: Negative. Genitourinary: Negative. Skin: Negative. Neurological: Positive for headaches. Psychiatric/Behavioral: Negative. BP 128/82 Pulse 88 Temp 36.7 ?C (98 ?F) (Tympanic) Resp 18 Wt 112 kg (246 lb 14.6 oz) LMP 03/08/2024 (Approximate) SpO2 98% BMI 37.54 kg/m? PAST MEDICAL HISTORY 04/2021: Cellulitis and abscess of buttock No date: Colostomy in place ([facility]) Comment: Reversed No date: Diabetes mellitus type II ([facility]) No date: Gestational diabetes No date: Hyperlipidemia No date: Kidney stones Comment: Dr. Nance 04/2022: Liver lesion No date: Neuropathy No date: Obesity (BMI 30-39.9) No date: RLS (restless legs syndrome) 04/2021: Septicemia ([facility]) Comment: buttock abscess No date: Ventral hernia No date: Wound of left buttock Comment: Required loop ileostomy to fully heal PAST SURGICAL HISTORY No date: ANESTH, SECTION Comment: x1 04/25/2021: INCISION AND DRAINAGE ABSCESS COMPLICATED/MULTIPLE Comment: buttock abscess drainage 12/30/2015: LAPAROSCOPY SURG CHOLECYSTECTOMY 09/2021: PAST SURGICAL HISTORY OF Comment: ileostomy reversal 08/2023: PAST SURGICAL HISTORY OF Comment: left shoulder arthroscopy with subacromial decompression, distal clavicle excision and rotator cuff repair No date: PAST SURGICAL HISTORY OF Comment: Kidney stone removal-Dr. Nance ALLERGIES Metformin and Trulicity [Dulaglutide] MEDICATIONS Lancets (ACCU-CHEK SOFTCLIX LANCETS) Test blood sugar(s) 4 times daily and as needed. Dx: 250.02. Insulin: Yes Blood-Glucose Meter (ACCU-CHEK KENNY PLUS METER) Test glucose twice daily, 250.02. Insulin yes. Insulin [place], Disposable, (BD ULTRA-FINE VINOD PEN NEEDLE) 32 gauge x 5/32 Use one needle for each dose. 5/day. blood sugar diagnostic ([employer] Tech[employer]CH VERIO TEST STRIPS) test strip Test blood sugar(s) 4 times daily. Dx: Type 2 DM - Controlled E11.9 Insulin: Yes insulin degludec (TRESIBA FLEXTOUCH U-100) 100 unit/mL (3 mL) injection pen Inject 60 Units subcutaneously two times a day. insulin lispro (HUMALOG KWIKPEN) 100 unit/mL Inject 40 Units subcutaneously three times a day before meals. Blood-Glucose Meter,Continuous (FREESTYLE KERRI 3 READER) misc 1 Device four times daily. Blood-Glucose Sensor (FREESTYLE KERRI 3 SENSOR) sheba 1 Device every 2 weeks. rOPINIRole (REQUIP) 0.5 mg tablet Take 3 tablets by mouth daily at bedtime. atorvastatin (LIPITOR) 10 mg tablet Take 1 tablet by mouth daily at bedtime. For cholesterol. lisinopril (ZESTRIL) 5 mg tablet Take 1 tablet by mouth once daily. VINOD PEN NEEDLE 32 gauge x 5/32 ndle use 1 NEEDLE FOR EACH DOSE, four times a day multivitamin tablet Take 1 tablet by mouth once daily. FAMILY HISTORY Problem Relation Age of Onset Heart Mother Drug abuse Mother Stroke Father Hypertension Maternal Grandmother other (scleroderma) Paternal Grandmother Diabetes Maternal Uncle No Known Problems Son No Known Problems Daughter Social History Tobacco Use Smoking status: Never Smokeless tobacco: Never Vaping Use Vaping status: Never Used Substance Use Topics Alcohol use: No Drug use: No Objective Physical Exam Vitals and nursing note reviewed. Constitutional: Appearance: Normal appearance. HENT: Head: Normocephalic. Right Ear: Tympanic membrane normal. Left Ear: Tympanic membrane normal. Nose: Nose normal. Mouth/Throat: Lips: [place]. Mouth: Mucous membranes are moist. Pharynx: Posterior oropharyngeal erythema present. Comments: Mild erythema posterior pharynx Eyes: Extraocular Movements: Extraocular movements intact. Conjunctiva/sclera: Conjunctivae normal. Neck: Comments: Tenderness on palpation to left anterior cervical lymph node. Cardiovascular: Rate and Rhythm: Normal rate and regular rhythm. Pulses: Normal pulses. Heart sounds: Normal heart sounds. Pulm (more content not included)... [facility] 07-11-2024 History of Present illness Narrative Subjective Trice Zambrano is a 44 year old female who presents sore throat, headache, and fever x 5 days. HPI Patient states she has a sore throat and headache that started five days ago, and a fever that started yesterday. Highest temperature at home was 102. Patient has been using Tylenol with relief from symptoms. She reports body aches and has concerns for her blood glucose levels, this morning her fasting glucose was 326, and she states that when she is sick her blood sugars usually run high. 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 Patient denies runny nose, cough, nausea, vomiting, chills, and diarrhea. Review of Systems Constitutional: Positive for fever and malaise/fatigue. Body aches HENT: Positive for sinus pain. Eyes: Negative. Respiratory: Negative. Cardiovascular: Negative. Gastrointestinal: Negative. Genitourinary: Negative. Skin: Negative. Neurological: Positive for headaches. Psychiatric/Behavioral: Negative. BP 128/82 Pulse 88 Temp 36.7 C (98 F) (Tympanic) Resp 18 Wt 112 kg (246 lb 14.6 oz) LMP 03/08/2024 (Approximate) SpO2 98% BMI 37.54 kg/m PAST MEDICAL HISTORY 04/2021: Cellulitis and abscess of buttock No date: Colostomy in place ([facility]) Comment: Reversed No date: Diabetes mellitus type II ([facility]) No date: Gestational diabetes No date: Hyperlipidemia No date: Kidney stones Comment: Dr. Nance 04/2022: Liver lesion No date: Neuropathy No date: Obesity (BMI 30-39.9) No date: RLS (restless legs syndrome) 04/2021: Septicemia ([facility]) Comment: buttock abscess No date: Ventral hernia No date: Wound of left buttock Comment: Required loop ileostomy to fully heal PAST SURGICAL HISTORY No date: ANESTH, SECTION Comment: x1 04/25/2021: INCISION & DRAINAGE ABSCESS COMPLICATED/MULTIPLE Comment: buttock abscess drainage 12/30/2015: LAPAROSCOPY SURG CHOLECYSTECTOMY 09/2021: PAST SURGICAL HISTORY OF Comment: ileostomy reversal 08/2023: PAST SURGICAL HISTORY OF Comment: left shoulder arthroscopy with subacromial decompression, distal clavicle excision and rotator cuff repair No date: PAST SURGICAL HISTORY OF Comment: Kidney stone removal-Dr. Nance ALLERGIES Metformin and Trulicity [Dulaglutide] MEDICATIONS Lancets (ACCU-CHEK SOFTCLIX LANCETS) Test blood sugar(s) 4 times daily and as needed. Dx: 250.02. Insulin: Yes Blood-Glucose Meter (ACCU-CHEK KENNY PLUS METER) Test glucose twice daily, 250.02. Insulin yes. Insulin [place], Disposable, (BD ULTRA-FINE VINOD PEN NEEDLE) 32 gauge x 5/32 Use one needle for each dose. 5/day. blood sugar diagnostic ([employer] VERIO TEST STRIPS) test strip Test blood sugar(s) 4 times daily. Dx: Type 2 DM - Controlled E11.9 Insulin: Yes insulin degludec (TRESIBA FLEXTOUCH U-100) 100 unit/mL (3 mL) injection pen Inject 60 Units subcutaneously two times a day. insulin lispro (HUMALOG KWIKPEN) 100 unit/mL Inject 40 Units subcutaneously three times a day before meals. Blood-Glucose Meter,Continuous (FREESTYLE KERRI 3 READER) misc 1 Device four times daily. Blood-Glucose Sensor (FREESTYLE KERRI 3 SENSOR) sheba 1 Device every 2 weeks. rOPINIRole (REQUIP) 0.5 mg tablet Take 3 tablets by mouth daily at bedtime. atorvastatin (LIPITOR) 10 mg tablet Take 1 tablet by mouth daily at bedtime. For cholesterol. lisinopril (ZESTRIL) 5 mg tablet Take 1 tablet by mouth once daily. VINOD PEN NEEDLE 32 gauge x 5/32 ndle use 1 NEEDLE FOR EACH DOSE, four times a day multivitamin tablet Take 1 tablet by mouth once daily. FAMILY HISTORY Problem Relation Age of Onset Heart Mother Drug abuse Mother Stroke Father Hypertension Maternal Grandmother other (scleroderma) Paternal Grandmother Diabetes Maternal Uncle No Known Problems Son No Known Problems Daughter Social History Tobacco Use Smoking status: Never Smokeless tobacco: Never Vaping Use Vaping status: Never Used Substance Use Topics Alcohol use: No Drug use: No Objective Physical Exam Vitals and nursing note reviewed. Constitutional: Appearance: Normal appearance. HENT: Head: Normocephalic. Right Ear: Tympanic membrane normal. Left Ear: Tympanic membrane normal. Nose: Nose normal. Mouth/Throat: Lips: [place]. Mouth: Mucous membranes are moist. Pharynx: Posterior oropharyngeal erythema present. Comments: Mild erythema posterior pharynx Eyes: Extraocular Movements: Extraocular movements intact. Conjunctiva/sclera: Conjunctivae normal. Neck: Comments: Tenderness on palpation to left anterior cervical lymph node. Cardiovascular: Rate and Rhythm: Normal rate and regular rhythm. Pulses: Normal pulses. Heart sounds: Normal heart sounds. Pulmonary: Effort: Pulmonary effort is normal. Breath sounds: Normal breath sounds. Abdominal: Palpations: Abdomen is soft. Musculoskeletal: General: Normal range of motion. Cervical back: Tenderness present. Lymphadenopathy: Cervical: Cervical adenopathy present. Left cervical: Superficial cervical adenopathy present. Skin: General: Skin is warm and dry. Neurological: Mental Status: She is alert and oriented to person, place, and time. Psychiatric: Mood and Affect: Mood normal. Behavior: Behavior normal. ASSESSMENT/PLAN: 1. Sore throat - ICD9: 462, ICD10: J02.9 (primary diagnosis) - STREP A MOLECULAR (POC) - COVID & INFLUENZA A/B & RSV PCR, ROUTINE- will call patient with results 2. Fever, unspecified fever cause - ICD9: 780.60, ICD10: R50.9 - UA DIP, URINE (POC) Office Visit on 07/11/2024 Component Date Value Ref Range Status Strep A (POCT) 07/11/2024 Negative Negative Final Procedural Control 07/11/2024 Valid Final GLUCOSE UA (POCT) 07/11/2024 500 (A) Negative mg/dL Final BILIRUBIN UA (POCT) 07/11/2024 Negative Negative Final KETONE UA (POCT) 07/11/2024 15 (A) Negative mg/dL Final SPECIFIC GRAVITY UA (POCT) 07/11/2024 1.015 1.005 - 1.030 Final HEMOGLOBIN/BLOOD UA (POCT) 07/11/2024 Negative Negative Final PH UA (POCT) 07/11/2024 7.0 4.5 - 8.0 Final PROTEIN UA (POCT) 07/11/2024 Trace (A) Negative mg/dL Final UROBILINOGEN UA (POCT) 07/11/2024 0.2 Normal E.U./dL Final NITRITE UA (POCT) 07/11/2024 Negative Negative Final LEUKOCYTES UA (POCT) 07/11/2024 Negative Negative Final COLOR UA (POCT) 07/11/2024 Yellow Final CLARITY UA (POCT) 07/11/2024 Clear Final - URINE CULTURE- Pending - COVID & INFLUENZA A/B & RSV PCR, ROUTINE- Pending - suspect viral illness Patient advised to continue monitoring symptoms. Patient will be notified with pending test results. If symptoms persist or fail to improve patient advised to follow-up with primary provider for further evaluation. Patient is agreeable with plan. Tahmina Cota, Student ARMATURE VARNISHER TEACHING PROVIDER (Physician/PA/MEDICAL RECORDS TECHNICIAN) NOTE OF PERSONAL INVOLVEMENT IN CARE: I have personally seen and examined the patient and performed the medical decision-making components. I have reviewed the Advanced Practice Registered Nurse (MEDICAL RECORDS TECHNICIAN) Student's documentation and verified the findings in the note as written. Any additions or changes are noted in bold/italics. Signature: Letitia Odell Date: 07/11/2024 Time: 3:10 PM documented in this encounter [facility] 05-28-2024 Hospital Discharge instructions Patient Education 05/28/2024 17:07:57 Kidney Stone w/ Colic Kidney Stone with Pain The sharp cramping pain on either side of your lower back and nausea/vomiting that you have are because of a small stone that has formed in the kidney. It is now passing down a narrow tube (ureter) on its way to your bladder. Once the stone reaches your bladder, the pain will often stop. But it may come back as the stone continues to pass out of the bladder and through the urethra. The stone may pass in your urine stream in one piece. The size may be 1/16 inch to 1/4 inch (1 mm to 6 mm). Or, the stone may break up into jazmyn fragments that you may not even notice. Once you have had a kidney stone, you are at risk of getting another one in the future. There are 4 types of kidney stones. Eighty percent are calcium stones mostly calcium oxalate but also some with calcium phosphate. The other 3 types include uric acid stones, struvite stones (from a preceding infection), and rarely, cystine stones. Most stones will pass on their own, but may take from a few hours to a few days. Sometimes the stone is too large to pass by itself. In that case, the healthcare provider will need to use other ways to remove the stone. These techniques include: Lithotripsy. This uses ultrasound waves to break up the stone. Ureteroscopy. This pushes a basket-like instrument through the urethra and bladder and into the ureter to pull out the stone. Various types of direct surgery through the skin Home care The following are general care guidelines: Drink plenty of fluids. This means at least 12, 8-ounce glasses of fluid mostly water a day. Each time you urinate, do so in a jar. Pour the urine from the jar through the strainer and into the toilet. Continue doing this until 24 hours after your pain stops. By then, if there was a kidney stone, it should pass from your bladder. Some stones dissolve into sand-like particles and pass right through the strainer. In that case, you won t ever see a stone. Save any stone that you find in the strainer and bring it to your healthcare provider to look at. It may be possible to stop certain types of stones from forming. For this reason, it is important to know what kind of stone you have. Try to stay as active as possible. This will help the stone pass. Don't stay in bed unless your pain keeps you from getting up. You may notice a red, pink, or brown color to your urine. This is normal while passing a kidney stone. If you develop pain, you may take ibuprofen or naproxen for pain, unless another medicine was prescribed. If you have chronic liver or kidney disease, talk with your healthcare provider before taking these medicines. Also talk with your provider if you've had a stomach ulcer or GI bleeding. Preventing stones Each year for the next 5 to 7 years, you are at risk that a new stone will form. Your risk is a 50% chance over this time period. The risk is higher if you have a family history of kidney stones or have certain chronic illnesses like hypertension, obesity, or diabetes. But you can make changes to your lifestyle and diet that can lower your risk for another stone. Most kidney stones are made of calcium. The following is advice for preventing another calcium stone. If you don t know the type of stone you have, follow this advice until the cause of your stone is found. Things that help: The most important thing you can do is to drink plenty of fluids each day. See home care above. Eat foods that contain phytates. These include wheat, rice, rye, barley, and beans. Phytates are substances that may lower your risk for any type of stone to form. Eat more fruits and vegetables. Choose those that are high in potassium. Eat foods high in natural citrate like fruit and low-sugar fruit juices. Having too little calcium in your diet can put you at risk for calcium kidney stones. Eat a normal amount of calcium in your diet and talk with your healthcare provider if you are taking calcium supplements. Cutting back on your calcium intake may raise your risk. New research shows that eating calcium-rich and oxalate-rich foods together lowers your risk for stones by binding the minerals in the stomach and intestines before they can reach the kidneys. Limit salt intake to 2 grams (1 teaspoon) per day. Use limited amounts when cooking, and don t add salt at the table. Processed and canned foods are usually high in salt. Spinach, rhubarb, peanuts, cashews, almonds, grapefruit, and grapefruit juice are all high oxalate foods. You should limit how much of these you eat. Or eat them with calcium-rich foods. These include dairy products, dark leafy greens, soy products, and calcium-enriched foods. Reducing the amount of animal meat and high protein foods in your diet may lower your risk for uric acid stones. Avoid excess sugar (sucrose) and fructose (sweetener in many soft drinks) in your diet. If you take vitamin C as a supplement, don't take more than 1,000 mg a day. A dietitian or your healthcare provider can give you information about changes in your diet that will help prevent more kidney stones from forming. Follow-up care Follow up with your healthcare provider, or as advised, if the pain lasts more than 48 hours. Talk with your provider about urine and blood tests to find out the cause of your stone. If you had an X-ray, CT scan, or other diagnostic test, you will be told of any new findings that may affect your care. Call 911 Call 911 if you have any of these: Weakness, dizziness, or fainting When to seek medical advice Call your healthcare provider right away if any of these occur: Pain that is not controlled by the medicine given Repeated vomiting or unable to keep down fluids Fever of 100.4 F (38 C) or higher, or as directed by your healthcare provider Passage of solid red or brown urine (can't see through it) or urine with lots of blood clots Foul-smelling or cloudy urine Unable to pass urine for 8 hours and increasing bladder pressure [id number] The [employer]. [address] [place] [address]. All rights reserved. This information is not intended as a substitute for professional medical care. Always follow your healthcare professional's instructions. Follow Up Care 05/28/2024 15:07:07 With:MARTHA NANCE MD, [employer] Address: [address] [place] [phone] When:2-4 days [facility] 05-28-2024 Emergency department Discharge summary Discharge Instructions Thank you for allowing [facility] to assist you with your healthcare needs. The following is important discharge information regarding your hospital visit. Diagnosis from Today's Visit Kidney stone What to Do Next Instructions from Your Care Team Discharge Return to Work, School, or Sports (Return to Work, School, or Sports) - Ordered -- 05/30/24, May return to: work, 05/28/24 17:07:00 EDT Post Acute Orders No qualifying data available. You Need to Schedule the Following Appointments Follow Up with MARTHA NANCE MD, [employer] When:Within 2-4 days Where:[address] [place] [phone] Allergies NKA Medications Please ask your primary doctor or pharmacist before taking any other medication not listed, including over the counter drugs, herbal medications, vitamins and or supplements as they may interact with your home medications. What How Much When Why Instructions Last Dose New acetaminophen-oxyCODONE (Percocet 5 mg-325 mg oral tablet) 1 tab(s) by mouth Every 6 hours as needed for Pain Kidney stone Duration: 2 Days Printed Prescription Changed ondansetron (ondansetron 4 mg oral tablet, disintegrating) 1 tab(s) by mouth Every 8 hours as needed for as needed for nausea/vomiting Duration: 3 Days Printed Prescription Changed ondansetron (ondansetron 4 mg oral tablet, disintegrating) 1 tab(s) by mouth Every 6 hours as needed for Nausea/Vomiting Unchanged acetaminophen-hydrocodone (Whitestone 325- 5 mg oral tablet) 1 tab(s) by mouth Every 6 hours as needed for as needed for pain Kidney stone Duration: 3 Days Unchanged atorvastatin (atorvastatin 10 mg oral tablet) 1 tab(s) by mouth Daily at bedtime Unchanged insulin degludec (Tresiba FlexTouch 100 units/ mL 3 mL subcutaneous solution) 56 unit(s) Subcutaneous Daily at bedtime Unchanged insulin glargine (Basaglar KwikPen 100 units/ mL subcutaneous solution) 56 unit(s) Subcutaneous Daily at bedtime INJECT 56 UNITS SUBCUTANEOUSLY ONCE DAILY AT BEDTIME Unchanged insulin lispro (HumaLOG) (Insulin Lispro KwikPen 100 units/ mL injectable solution) 32 unit(s) Subcutaneous Three (3) times a day before meals INJECT 32 UNITS SUBCUTANEOUSLY THREE TIMES DAILY BEFORE MEAL(S) Unchanged lisinopril (lisinopril 5 mg oral tablet) 1 tab(s) by mouth Every day Unchanged metFORMIN (MetFORMIN (Eqv-Glucophage XR) 500 mg oral tablet, EXTENDED RELEASE) 1 tab(s) by mouth Two (2) times a day Unchanged rOPINIRole (rOPINIRole 1 mg oral tablet) 1 tab(s) by mouth Daily at bedtime Unchanged tamsulosin (Flomax 0.4 mg oral capsule) 1 cap by mouth Once a day Please take this list to your next doctor s visit. Bring all medications you take, including over the counter medications, herbals and other supplements with you to your doctor s visit. Patients and families are reminded to discard old lists and to update any records with all medication providers or retail pharmacies. Education Materials Kidney Stone with Pain The sharp cramping pain on either side of your lower back and nausea/vomiting that you have are because of a small stone that has formed in the kidney. It is now passing down a narrow tube (ureter) on its way to your bladder. Once the stone reaches your bladder, the pain will often stop. But it may come back as the stone continues to pass out of the bladder and through the urethra. The stone may pass in your urine stream in one piece. The size may be 1/16 inch to 1/4 inch (1 mm to 6 mm). Or, the stone may break up into ajzmyn fragments that you may not even notice. Once you have had a kidney stone, you are at risk of getting another one in the future. There are 4 types of kidney stones. Eighty percent are calcium stones mostly calcium oxalate but also some with calcium phosphate. The other 3 types include uric acid stones, struvite stones (from a preceding infection), and rarely, cystine stones. Most stones will pass on their own, but may take from a few hours to a few days. Sometimes the stone is too large to pass by itself. In that case, the healthcare provider will need to use other ways to remove the stone. These techniques include: Lithotripsy. This uses ultrasound waves to break up the stone. Ureteroscopy. This pushes a basket-like instrument through the urethra and bladder and into the ureter to pull out the stone. Various types of direct surgery through the skin Home care The following are general care guidelines: Drink plenty of fluids. This means at least 12, 8-ounce glasses of fluid mostly water a day. Each time you urinate, do so in a jar. Pour the urine from the jar through the strainer and into the toilet. Continue doing this until 24 hours after your pain stops. By then, if there was a kidney stone, it should pass from your bladder. Some stones dissolve into sand-like particles and pass right through the strainer. In that case, you won t ever see a stone. Save any stone that you find in the strainer and bring it to your healthcare provider to look at. It may be possible to stop certain types of stones from forming. For this reason, it is important to know what kind of stone you have. Try to stay as active as possible. This will help the stone pass. Don't stay in bed unless your pain keeps you from getting up. You may notice a red, pink, or brown color to your urine. This is normal while passing a kidney stone. If you develop pain, you may take ibuprofen or naproxen for pain, unless another medicine was prescribed. If you have chronic liver or kidney disease, talk with your healthcare provider before taking these medicines. Also talk with your provider if you've had a stomach ulcer or GI bleeding. Preventing stones Each year for the next 5 to 7 years, you are at risk that a new stone will form. Your risk is a 50% chance over this time period. The risk is higher if you have a family history of kidney stones or have certain chronic illnesses like hypertension, obesity, or diabetes. But you can make changes to your lifestyle and diet that can lower your risk for another stone. Most kidney stones are made of calcium. The following is advice for preventing another calcium stone. If you don t know the type of stone you have, follow this advice until the cause of your stone is found. Things that help: The most important thing you can do is to drink plenty of fluids each day. See home care above. Eat foods that contain phytates. These include wheat, rice, rye, barley, and beans. Phytates are substances that may lower your risk for any type of stone to form. Eat more fruits and vegetables. Choose those that are high in potassium. Eat foods high in natural citrate like fruit and low-sugar fruit juices. Having too little calcium in your diet can put you at risk for calcium kidney stones. Eat a normal amount of calcium in your diet and talk with your healthcare provider if you are taking calcium supplements. Cutting back on your calcium intake may raise your risk. New research shows that eating calcium-rich and oxalate-rich foods together lowers your risk for stones by binding the minerals in the stomach and intestines before they can reach the kidneys. Limit salt intake to 2 grams (1 teaspoon) per day. Use limited amounts when cooking, and don t add salt at the table. Processed and canned foods are usually high in salt. Spinach, rhubarb, peanuts, cashews, almonds, grapefruit, and grapefruit juice are all high oxalate foods. You should limit how much of these you eat. Or eat them with calcium-rich foods. These include dairy products, dark leafy greens, soy products, and calcium-enriched foods. Reducing the amount of animal meat and high protein foods in your diet may lower your risk for uric acid stones. Avoid excess sugar (sucrose) and fructose (sweetener in many soft drinks) in your diet. If you take vitamin C as a supplement, don't take more than 1,000 mg a day. A dietitian or your healthcare provider can give you information about changes in your diet that will help prevent more kidney stones from forming. Follow-up care Follow up with your healthcare provider, or as advised, if the pain lasts more than 48 hours. Talk with your provider about urine and blood tests to find out the cause of your stone. If you had an X-ray, CT scan, or other diagnostic test, you will be told of any new findings that may affect your care. Call 911 Call 911 if you have any of these: Weakness, dizziness, or fainting When to seek medical advice Call your healthcare provider right away if any of these occur: Pain that is not controlled by the medicine given Repeated vomiting or unable to keep down fluids Fever of 100.4 F (38 C) or higher, or as directed by your healthcare provider Passage of solid red or brown urine (can't see through it) or urine with lots of blood clots Foul-smelling or cloudy urine Unable to pass urine for 8 hours and increasing bladder pressure [id number] [employer]. [address] [place] [address]. All rights reserved. This information is not intended as a substitute for professional medical care. Always follow your healthcare professional's instructions. Additional Information VACCINATE! IT SAVES LIVES! Members of the community who have not yet received the COVID-19 vaccine and would like to receive it can visit one of [facility] vaccine clinics. There are many vaccine clinic locations within the [facility]. For locations and available times, please visit www.gettheshot.coronavirus.[place].gov /. It is important to note that some COVID mobile vaccine clinics are held outdoors and may be canceled in rainy or stormy conditions. To learn more about pediatric vaccinations (ages 5-11), we invite you to visit the [facility] webpage. [email or web address].org/page [email or web address]-Hhicx-Wkxoegxjofw-Frequently -[email or web address]-Questions.html To learn more about the COVID-19 vaccine, we invite you to visit the CDC website for a list of frequently asked questions. https://www.cdc.gov/coronavirus/201 9-ncov/vaccines/faq.html [facility] Patient Portal Access Instructions: Stay connected with your healthcare team and access your personal medical information anytime with the [facility] Patient Portal. If you would like a full copy of your medical records please contact the [facility] Medical Records Department Tuesday through Tuesday between 8a.m. and 4:30p.m. Please follow the directions below to access the portal: 1.Access the email account you provided upon registration to the [facility].2.Look for an invitation email from [facility].3.Open the email and access the invitation link: Accept Invitation to [facility].Fill in the required yanez to create your account. Sign into [email or web address] with your username and password that you created in the above steps to stay up to date. You can then view a summary of results, a summary of your visits, and the ability to download your summaries to your computer or send the information securely to a physician. Remember that your healthcare information is confidential, so carefully consider who you will allow to register on the [facility] Patient Portal for access to your information. You can also access the [facility] Patient Portal on the [employer] leola. Simply click on Health Records under Health Data and then click on the [employer] logo. HOW TO SAFELY DISPOSE OF PRESCRIPTION MEDICATIONS Please use one of the following methods to safely dispose of your unused medications. 1.Use a drug disposal kit: the drug disposal pouch allows you to safely discard your old and unused drugs. Ask your nurse to give you one when you are discharged.2.Visit a local take-back location: Many local pharmacies and police departments have programs that collect old and unwanted prescription drugs. Call your local pharmacy or go to http://bit.Adore Me/6H9Sn3a to find one close to you.3.Make use of household items: Use cat litter or old coffee grounds to dispose medications if other options are not available. Mix your drugs with these household products, seal them in an airtight container and throw it into the garbage. Call [facility]: [phone] to be sure your drugs can be disposed of in this way. Some medicines may require a different approach.4.Never flush your medications down the toilet. IF YOU HAVE BEEN PRESCRIBED AN OPIOIDS FOR PAIN If you have been prescribed an opioid (such as hydrocodone, oxycodone or morphine), it is critical to understand the possible side effects and risks of opioid pain medications. Even when taken as directed, opioids can have several side effects including: Tolerance, meaning you might need to take more of a medication for the same pain relief. Nausea, vomiting and/or constipation. Sleepiness, dizziness, dry mouth, confusion, depression or itching. Physical dependence, meaning you have withdrawal symptoms when a medication is stopped ? this can develop within a few days. KNOW YOUR RESPONSIBILITIES It is important to know exactly how much and how often to take the opioid pain medications you are prescribed. Never take opioids in higher amounts or more often than prescribed. Do not combine opioids with alcohol or other drugs that cause drowsiness, such as benzodiazepines, also known as benzos, including diazepam and alprazolam, muscle relaxants or sleep aids. Never sell or share prescription opioids. This is illegal. Store opioids in a secure place and out of reach of others (including children, family, friends and visitors). The last page(s) of this document has been signed and retained as a CHART COPY Signatures Patient Education Materials Kidney Stone w/ Colic Medication Leaflets My discharge plan and instructions have been reviewed and explained to me and I,TRICE ZAMBRANO understand my current condition and have read and understand these discharge instructions. I have received a written copy of the plan/instructions. If I have questions, I am aware that I should contact my doctor. Patient/[employer] Signature: ____ Date/Time: Relationship to Patient: __ Witness Name/Signature: Date/Time: [facility] 05-28-2024 Note ORIGINAL EXAMINATION: CT OF THE ABDOMEN AND PELVIS WITHOUT CONTRAST 05/28/2024 4:37 pm TECHNIQUE: CT of the abdomen and pelvis was performed without the administration of intravenous contrast. Multiplanar reformatted images are provided for review. Automated exposure control, iterative reconstruction, and/or weight based adjustment of the mA/kV was utilized to reduce the radiation dose to as low as reasonably achievable. COMPARISON: CT abdomen pelvis 09/30/2023 HISTORY: ORDERING SYSTEM PROVIDED HISTORY: Reason for Exam: Pt c/o rt flank pain, mild x1 week, increasing in the last 2 days. N+V, dysuria. Prev hx renal stones. BILATERAL flank pain FINDINGS: No acute abnormality within the visualized lower lungs. The aorta is nonaneurysmal with minimal atherosclerosis. No adenopathy within the abdomen or pelvis. Likely focal fatty infiltration along the falciform groove in otherwise normal appearing liver. The spleen and bilateral adrenal glands are unremarkable. Stable approximately 1 cm hypodensity within the pancreatic neck (series 2, image 20). Otherwise, the pancreas is unremarkable. Bilateral kidneys are roughly symmetric in size. No hydronephrosis. Punctate right lower pole renal calculi. Interval passage of the left nephrolithiasis and proximal left ureteral stone. The bladder is unremarkable. Uterus is unremarkable. No adnexal lesion. No pneumoperitoneum or free fluid. Left lower quadrant colonic anastomosis. The large and small bowel are normal in caliber. The appendix is unremarkable. No inflammatory changes the GI tract. Small fat containing umbilical hernia. No acute osseous abnormality. Stable likely postsurgical changes noted along the ventral abdominal wall. IMPRESSION: Punctate nonobstructive right nephrolithiasis. I have personally reviewed the images of this examination and agree with the resident's findings and interpretation. Interpreted by: Conor Jerome Preliminary Report By: Woodrow Diaz Electronically signed By Conor Jerome Dictated Date: 05/28/2024 4:48:07 PM Prelim Date: 05/28/2024 4:54:15 PM Sign Date: 05/28/2024 5:06:46 PM Ordering Provider: [facility] 05-03-2024 Telephone encounter Note It sounds like her fasting sugars are improving, but it is hard for me to tell if the sugars before and after meals are in good range based on just the readings she is giving me. I would recommend OV in next 1-2 weeks to review her glucose readings in more detail. Can discuss changes to requip at that OV. [facility] 05-03-2024 Miscellaneous Notes It sounds like her fasting sugars are improving, but it is hard for me to tell if the sugars before and after meals are in good range based on just the readings she is giving me. I would recommend OV in next 1-2 weeks to review her glucose readings in more detail. Can discuss changes to requip at that OV. documented in this encounter [facility] 05-03-2024 Telephone encounter Note Prescription Refill Information The patient has been identified by name and date of : Yes Caregiver verified no other encounters exist for this prescription request: Yes Caregiver confirmed with patient/requestor that no other refills are due, in the near future, with this provider at this time: Yes The last office visit in the department: 04/06/24 Does the patient have a future office visit with this provider/department: Yes-07/11/24 Requested Prescriptions Pending Prescriptions Disp Refills Insulin Olivet, Disposable, (BD ULTRA-FINE VINOD PEN NEEDLE) 32 gauge x 5/32 100 Each 11 Sig: Use one needle for each dose. 5/day. blood sugar diagnostic (ONETOUCH VERIO TEST STRIPS) test strip 200 Strip 5 Sig: Test blood sugar(s) 4 times daily. Dx: Type 2 DM - Controlled E11.9 Insulin: Yes insulin degludec (TRESIBA FLEXTOUCH U-100) 100 unit/mL (3 mL) injection pen 108 mL 0 Sig: Inject 60 Units subcutaneously two times a day. Celeste Villa LPN May 03, 2024 6:44 AM [facility] 05-03-2024 Miscellaneous Notes Prescription Refill Information The patient has been identified by name and date of : Yes Caregiver verified no other encounters exist for this prescription request: Yes Caregiver confirmed with patient/requestor that no other refills are due, in the near future, with this provider at this time: Yes The last office visit in the department: 04/06/24 Does the patient have a future office visit with this provider/department: Yes-07/11/24 Requested Prescriptions Pending Prescriptions Disp Refills Insulin Olivet, Disposable, (BD ULTRA-FINE VINOD PEN NEEDLE) 32 gauge x 5/32 100 Each 11 Sig: Use one needle for each dose. 5/day. blood sugar diagnostic (ONETOUCH VERIO TEST STRIPS) test strip 200 Strip 5 Sig: Test blood sugar(s) 4 times daily. Dx: Type 2 DM - Controlled E11.9 Insulin: Yes insulin degludec (TRESIBA FLEXTOUCH U-100) 100 unit/mL (3 mL) injection pen 108 mL 0 Sig: Inject 60 Units subcutaneously two times a day. Celeste Villa LPN May 03, 2024 6:44 AM documented in this encounter [facility] 04-11-2024 Telephone encounter Note TC to patient who verbalized understanding of providers message below with no questions at this time. VELVET Rey [facility] 04-11-2024 Miscellaneous Notes TC to patient who verbalized understanding of providers message below with no questions at this time. VELVET Rey Diabetes uncontrolled with A1c up to 8.3. increase meal time insulin as discussed in office and call in 2 weeks with sugar readings. Should be checking 3-4 times daily, before meals and before bed. Continue to work on low carb diet and exercise. Keep 3 month f/u as scheduled. Urine studies shows moderately increased albumin/creatinine ration which is worse than last check 1 year ago. This is caused by uncontrolled diabetes. WBC and neutrophils are mildly elevated. She was not complaining of symptoms of infection at her last OV and exam was normal. If she starts to feel ill, should notify our office. I would recommend rechecking this in about 2-3 weeks. Other labs unremarkable. documented in this encounter [facility] 04-11-2024 Telephone encounter Note Diabetes uncontrolled with A1c up to 8.3. increase meal time insulin as discussed in office and call in 2 weeks with sugar readings. Should be checking 3-4 times daily, before meals and before bed. Continue to work on low carb diet and exercise. Keep 3 month f/u as scheduled. Urine studies shows moderately increased albumin/creatinine ration which is worse than last check 1 year ago. This is caused by uncontrolled diabetes. WBC and neutrophils are mildly elevated. She was not complaining of symptoms of infection at her last OV and exam was normal. If she starts to feel ill, should notify our office. I would recommend rechecking this in about 2-3 weeks. Other labs unremarkable. [facility] 04-10-2024 Telephone encounter Note Telephoned the patient to schedule a new Primary Care pharmacy appt. Left a message. Made two attempts to contact the patient. Patient has not returned the call. If the patient returns a call, an appt will be scheduled. Encounter routed to the clinical pharmacist. [facility] 04-10-2024 Miscellaneous Notes Telephoned the patient to schedule a new Primary Care pharmacy appt. Left a message. Made two attempts to contact the patient. Patient has not returned the call. If the patient returns a call, an appt will be scheduled. Encounter routed to the clinical pharmacist. Telephoned the patient to schedule a new Primary Care pharmacy appt. Left a message. documented in this encounter [facility] 04-09-2024 Telephone encounter Note Telephoned the patient to schedule a new Primary Care pharmacy appt. Left a message. [facility] 04-06-2024 History of Present illness Narrative Chief Complaint Patient presents with: Physical HPI Trice Zambrano is a 43 year old female who presents here today for Above Complaints. DIABETES MELLITUS: Ms. Zambrano was last seen 10 months ago. Since our last visit she denies excessive thirst or increased frequency of urination, and new or unusual visual symptoms. Patient admits numbness and tingling in her legs algin with low sugar/hypoglycemic reactions about once per week. Follows a diabetic diet most of the time. She is compliant with medication(s) and is tolerating med(s) without any side effects. Has not been on metformin XR due to diarrhea. She reports checking her glucose on a three times a day schedule with sugars in the fasting typically <120 range but has occasional readings into the 200's and 300's. 2 hours after meals, readings are frequently above 180. Patient's last HgA1C was Hemoglobin A1C (%) Date Value 08/03/2023 7.0 06/03/2023 9.7 07/15/2021 6.9 06/01/2021 7.5 ) Last Ophthalmology exam was within the past 12 months at [facility]. Reports no retinopathy. Switching to [facility]. Last Podiatry exam was within the past 12 months RLS symptoms uncontrolled on 1 mg requip. Still feels like she needs to get up and move around on a nightly basis. Would like to try higher dosage. Patient needs referral to new [employer] for routine cervical cancer screening. Last OV with previous [employer] was 2 years ago and was reportedly normal. Cannot remember the name of her last [employer] today. Up to date on mammogram. Agreeable to Prevnar 20 vaccine today. Refusing COVID booster. Past medical history, appointments, medications, allergies reviewed. 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 Previous Surgical History PAST SURGICAL HISTORY Procedure Laterality Date ANESTH, SECTION x1 INCISION & DRAINAGE ABSCESS COMPLICATED/MULTIPLE 04/25/2021 buttock abscess drainage LAPAROSCOPY SURG CHOLECYSTECTOMY 12/30/2015 PAST SURGICAL HISTORY OF 09/2021 ileostomy reversal Family History FAMILY HISTORY Problem Relation Age of Onset Heart Mother Drug abuse Mother Stroke Father Hypertension Maternal Grandmother other (scleroderma) Paternal Grandmother Diabetes Maternal Uncle No Known Problems Son No Known Problems Daughter Patient Allergies ALLERGIES Allergen Reactions Metformin Diarrhea Occurred while on XR formulation Trulicity [Dulaglut* Vomiting Nausea/vomiting, diarrhea and epigastric pain. Current Medications Current Outpatient Medications on File Prior to Visit Medication Sig atorvastatin (LIPITOR) 10 mg tablet Take 1 tablet by mouth daily at bedtime. For cholesterol. lisinopril (ZESTRIL) 5 mg tablet Take 1 tablet by mouth once daily. insulin degludec (TRESIBA FLEXTOUCH U-100) 100 unit/mL (3 mL) injection pen Inject 60 Units subcutaneously two times a day. rOPINIRole (REQUIP) 1 mg tablet Take 1 tablet by mouth daily at bedtime. insulin lispro (HUMALOG KWIKPEN) 100 unit/mL Inject 36 Units subcutaneously three times a day before meals. multivitamin tablet Take 1 tablet by mouth once daily. albuterol HFA (PROVENTIL HFA, VENTOLIN HFA) 90 mcg/actuation inhaler Inhale 2 Puffs as instructed every 4 hours as needed for wheezing/shortness of breath. metFORMIN ER (GLUCOPHAGE XR) 500 mg 24 hr tablet Take 1 tablet by mouth twice daily. blood sugar diagnostic ([employer] VERIO TEST STRIPS) test strip Test blood sugar(s) 4 times daily. Dx: Type 2 DM - Controlled E11.9 Insulin: Yes Insulin [place], Disposable, (BD ULTRA-FINE VINOD PEN NEEDLE) 32 gauge x 32 Use one needle for each dose. 5/day. Lancets lancets Test blood sugar(s) 4 times daily. Dx: Type 2 DM - Controlled E11.9 Insulin: Yes Lancets (ACCU-CHEK SOFTCLIX LANCETS) lancets Test blood sugar(s) 4 times daily and as needed. Dx: 250.02. Insulin: Yes Blood-Glucose Meter (ACCU-CHEK KENNY PLUS METER) misc Test glucose twice daily, 250.02. Insulin yes. VINOD PEN NEEDLE 32 gauge x 5/32 ndle use 1 NEEDLE FOR EACH DOSE, four times a day No current facility-administered medications on file prior to visit. Social History Social History Tobacco Use Smoking status: Never Smokeless tobacco: Never Vaping Use Vaping Use: Never used Substance Use Topics Alcohol use: No Drug use: No Review of Symptoms REVIEW OF SYSTEMS GENERAL: No weight loss, malaise or fevers HEENT: Negative for frequent or significant headaches, No changes in hearing or vision, no nose bleeds or other nasal problems NECK: Negative for lumps, goiter, pain and significant neck swelling RESPIRATORY: Negative for cough, hemoptysis, wheezing, COPD, dyspnea or shortness of breath CARDIOVASCULAR: Negative for chest pain, leg swelling, hypertension, CHF or palpitations GI: No nausea, vomiting, or diarrhea : No history of dysuria, frequency or incontinence [employer]: Negative for abnormal vaginal bleeding, abnormal vaginal discharge MUSCULOSKELETAL: Negative for joint pain or swelling, back pain or muscle pain SKIN: Negative for lesions, rash, and itching PSYCH: Negative mood disorder and recent psychosocial stressors. Admits to sleep disturbance with RLS. HEMATOLOGY/LYMPHOLOGY: Negative for prolonged bleeding, bruising easily or swollen nodes ENDOCRINE: Negative for cold or heat intolerance. NEURO: No history of headaches, syncope, paralysis, seizures or tremors EXAM: BP 136/80 Pulse 80 Resp 16 Wt 114.4 kg (252 lb 3.2 oz) LMP 03/08/2024 (Approximate) SpO2 98% BMI 38.35 kg/m General Appearance: Well appearing, alert, in no acute distress, well-hydrated, well nourished.. Skin: Skin color, texture, turgor normal, no suspicious rashes or lesions. Head: Normocephalic, no masses, lesions, tenderness or abnormalities. Eyes: Anicteric sclera. Pupils are equally round and reactive to light. Extraocular movements are intact. . Ears: External ears normal, canals clear. Nose/Sinuses: Nares normal, septum midline, mucosa normal, no drainage or sinus tenderness. Oropharynx: Lips, mucosa, and tongue normal, teeth and gums normal, oropharynx normal. Neck: Supple, no adenopathy; thyroid symmetric, normal size, no bruits. Lungs: Lungs clear to auscultation. No wheezing, rhonchi, rales.. Heart: RRR without murmur, gallop, or rubs. No ectopy. Abdomen: Normal abdominal exam, Abdomen soft, non-tender. Bowel sounds normal. No masses, organomegaly. Extremities: No deformities, edema, skin discoloration, clubbing or cyanosis. Good capillary refill. . Peripheral Pulses: Normal. Neurologic: Gait normal. Reflexes normal and symmetric. Sensation grossly intact.. Lymph Nodes: No cervical lymphadenopathy and No supraclavicular lymphadenopathy Feet:Shoes and socks removed, No deformities, ulcers, calluses, normal distal pulses, and sensitive to 10 gm monofilament Health Maintenance List Hepatitis B Vaccine(1 of 3 - 19+ 3-dose series) Never done Pap Testing Never done HPV Testing Never done Pneumococcal Vaccine(2 of 2 - PCV) due on 08/06/2017 Dilated Retinal Exam due on 12/15/2022 Covid-19 Vaccine( season) Never done Behavioral Health Screening Never done HbA1C due on 02/01/2024 Urine Albumin:Creatinine Ratio due on 06/03/2024 LDL Cholesterol due on 06/03/2024 Diabetic Foot Exam due on 06/03/2024 Annual PCP Team Chronic Disease Visit due on 06/03/2024 Influenza Vaccine(Season Ended) due on 07/08/2024 Mammogram Screening due on 02/02/2025 DTaP,Tdap,Td Vaccine(2 - Td or Tdap) due on 10/10/2029 Hepatitis C Screening Completed HIV Screening Completed HPV Vaccine Aged Out Data reviewed Latest Ref Rng 06/03/2023 08/03/2023 08/09/2023 WBC 3.70 - 11.00 k/uL 9.08 RBC 3.90 - 5.20 m/uL 4.67 Hemoglobin 11.5 - 15.5 g/dL 13.7 Hematocrit 36.0 - 46.0 % 42.7 MCV 80.0 - 100.0 fL 91.4 MCH 26.0 - 34.0 pg 29.3 MCHC 30.5 - 36.0 g/dL 32.1 RDW-CV 11.5 - 15.0 % 12.5 Platelet Count 150 - 400 k/uL 225 MPV 9.0 - 12.7 fL 11.4 Neut% % 60.4 Abs Neut (ANC) 1.45 - 7.50 k/uL 5.48 Lymph% % 30.0 Abs Lymph 1.00 - 4.00 k/uL 2.72 Griggs% % 7.7 Abs Griggs <0.87 k/uL 0.70 Eosin% % 1.4 Abs Eosin <0.46 k/uL 0.13 Baso% % 0.3 Abs Baso <0.11 k/uL 0.03 Immature Gran % % 0.2 IMMATURE GRANS (ABS) <0.10 k/uL <0.03 NRBC /100 WBC 0.0 Absolute nRBC <0.01 k/uL <0.01 DTYPE Auto Protein, Total 6.3 - 8.0 g/dL 6.9 6.9 Albumin 3.9 - 4.9 g/dL 3.9 3.8 (L) Calcium 8.5 - 10.2 mg/dL 9.3 9.3 Bilirubin, Total 0.2 - 1.3 mg/dL 0.2 0.3 Alkaline Phosphatase 34 - 123 U/L 64 79 AST 13 - 35 U/L 20 16 ALT 7 - 38 U/L 22 19 Glucose 74 - 99 mg/dL 93 98 BUN 7 - 21 mg/dL 13 19 Creatinine 0.58 - 0.96 mg/dL 0.74 0.82 Sodium 136 - 144 mmol/L 138 141 Potassium 3.7 - 5.1 mmol/L 4.0 4.2 Chloride 97 - 105 mmol/L 103 106 (H) CO2 22 - 30 mmol/L 21 (L) 23 Anion Gap 9 - 18 mmol/L 14 12 eGFR >=60 mL/min/1.73m 104 91 Total Cholesterol, Nonfasting <200 mg/dL 171 Triglycerides, Nonfasting <150 mg/dL 263 (H) HDL Cholesterol, Nonfasting >39 mg/dL 45 LDL Cholesterol, Nonfasting <100 mg/dL 73 Non HDL Cholesterol, Nonfasting <130 mg/dL 126 VLDL Cholesterol, Nonfasting <30 mg/dL 53 (H) Total Chol/HDL Ratio, Nonfasting <5.10 mg/dL 3.80 LDL/HDL Ratio, Nonfasting <2.54 mg/dL 1.62 Creatinine, Ur Random (UCRR) 20.0 - 300.0 mg/dL 132.8 Albumin, Urine Random mg/L 42.7 Albumin/Creat Ratio <30 mg/g 32 (H) Hemoglobin A1C 4.3 - 5.6 % 9.7 (H) 7.0 (H) Estimated Average Glucose mg/dL 232 154 Legend: (L) Low (H) High ASSESSMENT/PLAN: 1. Annual physical exam - ICD9: V70.0, ICD10: Z00.00 (primary diagnosis) - Counseled on healthy diet and regular exercise - Discussed need and benefit for weight loss. BMI 38.35 kg/(m^2) - Counseled patient on limiting alcohol intake to 1 drink per day - Follow up for annual exam in one year - COMPLETE BLOOD COUNT AND DIFFERENTIAL - COMPREHENSIVE METABOLIC PANEL - HEMOGLOBIN A1C - ALBUMIN/CREATININE RATIO, URINE - LIPID PANEL, NONFASTING 2. Type 2 diabetes mellitus with hyperglycemia, with long-term current use of insulin (HCC) - ICD9: 250.00, 790.29, V58.67, ICD10: E11.65, Z79.4 - Control undetermined, due for labs - Increase meal time insulin to 40 units TID. - Blood glucose monitoring on a four times daily schedule - Counseled on healthy diet and regular exercise - Discussed need for and benefit of weight loss. BMI 38.35 kg/(m^2) - Discussed diabetic education issues of diabetes complications and monitoring required, hypoglycemic/hyperglycemic symptoms, medication-specific side effects and monitoring, and diabetic sick day rules - Follow up in 3 months, sooner should any other issues arise. - referral order placed to pharmacy to help with DM management. - CONSULT TO PHARMACY - INSULIN LISPRO (U-100) 100 UNIT/ML SUBCUTANEOUS PEN - FREESTYLE KERRI 3 READER - FREESTYLE KERRI 3 SENSOR DEVICE 3. Peripheral polyneuropathy - ICD9: 356.9, ICD10: G62.9 Mild symptoms on current regimen. Will monitor. Check feet daily at home. 4. RLS (restless legs syndrome) - ICD9: 333.94, ICD10: G25.81 Uncontrolled. Increase requip to 1.5 mg TID. - ROPINIROLE 0.5 MG TABLET 5. Mixed hyperlipidemia - ICD9: 272.2, ICD10: E78.2 - Control undetermined, due for labs - Continue current medications - Counseled on healthy diet and regular exercise 6. Obesity (BMI 30-39.9) - ICD9: 278.00, ICD10: E66.9 Weight increasing - Behavioral intervention 7. Screening for cervical cancer - ICD9: V76.2, ICD10: Z12.4 - CONSULT TO GYNECOLOGY 8. Encounter for immunization - ICD9: V03.89, ICD10: Z23 - PNEUMOCOCCAL VACCINE, 20 VALENT (PREVNAR 20) Jean Claude Huitron MD documented in this encounter [facility] 02-03-2024 Miscellaneous Notes February 06, 2024 PID: [id number] Trice MaldonadoJose Zambrano [address] [place] [address] Dear Ms. Zambrano, We are pleased to inform you that the results of your recent breast imaging exam on 02/03/2024 are normal. Early detection of cancer is very important. We also understand recommendations regarding breast cancer screening are controversial. Please discuss with your primary care provider which strategy is best for you and whether a mammogram is right for you. Your imaging studies and report will be kept on file at [facility] as part of your permanent medical record and are available for your continuing care. Thank you for allowing us to help in meeting your health care needs. Sincerely, Dr. Ellis Interpreting Radiologist [facility] Breast Imaging (Normal over 40) documented in this encounter [facility] 10-11-2023 Evaluation + Plan note Diagnostic Tests PendingUrinary Calculi Panel 10/11/23 [facility] 10-11-2023 Note Pathology Report verified by [facility] DAWSON HARMON Sign out Date: 10/11/2023 09:37 Performing Lab: [facility], [address] [place] [address] [facility] Pathology Dept [facility] 10-11-2023 Note Pathology Report verified by [facility] DAWSON HARMON Sign out Date: 10/11/2023 09:37 Performing Lab: [facility], [address] [place] [address] Pathology Dept [facility] 10-11-2023 Note Pathology Report verified by [facility] DAWSON HARMON Sign out Date: 10/11/2023 09:37 Performing Lab: [facility], [address] [place] [address] Pathology Dept [facility] 10-10-2023 Note Pathology Report verified by [facility] DAWSON HARMON Sign out Date: 10/11/2023 09:37 Performing Lab: [facility], [address] [place] [address] Pathology Dept [facility] 10-10-2023 Note Pathology Report verified by [facility] DAWSON HARMON Sign out Date: 10/11/2023 09:37 Performing Lab: [facility], [address] [place] [address] Pathology Dept [facility] 10-10-2023 Note Pathology Report verified by [facility] DAWSON HARMON Sign out Date: 10/11/2023 09:37 Performing Lab: [facility], [address] [place], [place] [id number] [facility] Pathology Dept [facility] 10-10-2023 Note Pathology Report verified by [facility] DAWSON HARMON Sign out Date: 10/11/2023 09:37 Performing Lab: [address] [address] [facility] Pathology Dept [facility] 10-03-2023 Note . MICRO - Microbiology PROCEDURE: Urine Culture [*1] SOURCE: Urine, Clean Catch BODY SITE: COLLECTED DATE/TIME: 09/30/2023 12:49 EST RECEIVED DATE/TIME: 09/30/2023 18:48 EST START DATE/TIME: 09/30/2023 18:49 EST FREE TEXT SOURCE: FINAL REPORTS Final Report [] Verified Date/Time/Personnel: 10/03/2023 07:35 EST >100,000 cfu/ml Enterobacter cloacae complex PRELIMINARY REPORTS Preliminary Report [] Verified Date/Time/Personnel: 10/02/2023 10:27 EST >100,000 cfu/ml Enterobacter cloacae complex BLANQUITA to follow Preliminary Report [] Verified Date/Time/Personnel: 10/01/2023 07:55 EST Culture results pending. SUSCEPTIBILITY RESULTS Enterobacter cloacae complex Antibiotic BLANQUITA Dilut BLANQUITA Inter Ampicillin >16 Resistant Ampicillin/ >16/8 Resistant Sulbactam Aztreonam 16 Intermediate Cefazolin >16 Resistant Cefotaxime >32 Resistant Ceftriaxone >32 Resistant Cefuroxime >16 Resistant Ciprofloxacin <=0.25 Susceptible Ertapenem <=0.5 Susceptible Gentamicin <=2 Susceptible ID Panel Not Not Applicable Applicable Imipenem <=1 Susceptible Levofloxacin <=0.5 Susceptible Meropenem <=1 Susceptible Minocycline <=4 Susceptible Nitrofurantoin >64 Resistant Piperacillin/ 16 Susceptible Tazobactam Trimethoprim/ <=0.5/9.5 Susceptible Sulfa Performing Locations *1: This test was performed at: [address], [address] , [facility] ([place]) 09-30-2023 Hospital Discharge instructions Patient Education 09/30/2023 13:52:35 Urinary Tract Infections in Women Urinary Tract Infections in Women Urinary tract infections (UTIs) are most often caused by bacteria. These bacteria enter the urinary tract. The bacteria may come from outside the body. Or they may travel from the skin outside the rectum or vagina into the urethra. Female anatomy makes it easy for bacteria from the bowel to enter a woman s urinary tract, which is the most common source of UTI. This means women develop UTIs more often than men. Pain in or around the urinary tract is a common UTI symptom. But the only way to know for sure if you have a UTI for the healthcare provider to test your urine. The two tests that may be done are the urinalysis and urine culture. Types of UTIs Cystitis. A bladder infection (cystitis) is the most common UTI in women. You may have urgent or frequent urination. You may also have pain, burning when you urinate, and bloody urine. Urethritis. This is an inflamed urethra, which is the tube that carries urine from the bladder to outside the body. You may have lower stomach or back pain. You may also have urgent or frequent urination. Pyelonephritis. This is a kidney infection. If not treated, it can be serious and damage your kidneys. In severe cases, you may need to stay in the hospital. You may have a fever and lower back pain. Medicines to treat a UTI Most UTIs are treated with antibiotics. These kill the bacteria. The length of time you need to take them depends on the type of infection. It may be as short as 3 days. If you have repeated UTIs, you may need a low-dose antibiotic for several months. Take antibiotics exactly as directed. Don t stop taking them until all of the medicine is gone. If you stop taking the antibiotic too soon, the infection may not go away. You may also develop a resistance to the antibiotic. This can make it much harder to treat. Lifestyle changes to treat and prevent UTIs The lifestyle changes below will help get rid of your UTI. They may also help prevent future UTIs. Drink plenty of fluids. This includes water, juice, or other caffeine-free drinks. Fluids help flush bacteria out of your body. Empty your bladder. Always empty your bladder when you feel the urge to urinate. And always urinate before going to sleep. Urine that stays in your bladder can lead to infection. Try to urinate before and after sex as well. Practice good personal hygiene. Wipe yourself from front to back after using the toilet. This helps keep bacteria from getting into the urethra. Use condoms during sex. These help prevent UTIs caused by sexually transmitted bacteria. Also don't use spermicides during sex. These can increase the risk for UTIs. Choose other forms of control instead. For women who tend to get UTIs after sex, a low-dose of a preventive antibiotic may be used. Be sure to discuss this option with your healthcare provider. Follow up with your healthcare provider as directed. He or she may test to make sure the infection has cleared. If needed, more treatment may be started. [id number] [employer]. [address] [place] [id number]. All rights reserved. This information is not intended as a substitute for professional medical care. Always follow your healthcare professional's instructions. 09/30/2023 13:52:06 Kidney Stone w/ Colic Kidney Stone with Pain The sharp cramping pain on either side of your lower back and nausea/vomiting that you have are because of a small stone that has formed in the kidney. It is now passing down a narrow tube (ureter) on its way to your bladder. Once the stone reaches your bladder, the pain will often stop. But it may come back as the stone continues to pass out of the bladder and through the urethra. The stone may pass in your urine stream in one piece. The size may be 1/16 inch to 1/4 inch (1 mm to 6 mm). Or, the stone may break up into jazmyn fragments that you may not even notice. Once you have had a kidney stone, you are at risk of getting another one in the future. There are 4 types of kidney stones. Eighty percent are calcium stones mostly calcium oxalate but also some with calcium phosphate. The other 3 types include uric acid stones, struvite stones (from a preceding infection), and rarely, cystine stones. Most stones will pass on their own, but may take from a few hours to a few days. Sometimes the stone is too large to pass by itself. In that case, the healthcare provider will need to use other ways to remove the stone. These techniques include: Lithotripsy. This uses ultrasound waves to break up the stone. Ureteroscopy. This pushes a basket-like instrument through the urethra and bladder and into the ureter to pull out the stone. Various types of direct surgery through the skin Home care The following are general care guidelines: Drink plenty of fluids. This means at least 12, 8-ounce glasses of fluid mostly water a day. Each time you urinate, do so in a jar. Pour the urine from the jar through the strainer and into the toilet. Continue doing this until 24 hours after your pain stops. By then, if there was a kidney stone, it should pass from your bladder. Some stones dissolve into sand-like particles and pass right through the strainer. In that case, you won t ever see a stone. Save any stone that you find in the strainer and bring it to your healthcare provider to look at. It may be possible to stop certain types of stones from forming. For this reason, it is important to know what kind of stone you have. Try to stay as active as possible. This will help the stone pass. Don't stay in bed unless your pain keeps you from getting up. You may notice a red, pink, or brown color to your urine. This is normal while passing a kidney stone. If you develop pain, you may take ibuprofen or naproxen for pain, unless another medicine was prescribed. If you have chronic liver or kidney disease, talk with your healthcare provider before taking these medicines. Also talk with your provider if you've had a stomach ulcer or GI bleeding. Preventing stones Each year for the next 5 to 7 years, you are at risk that a new stone will form. Your risk is a 50% chance over this time period. The risk is higher if you have a family history of kidney stones or have certain chronic illnesses like hypertension, obesity, or diabetes. But you can make changes to your lifestyle and diet that can lower your risk for another stone. Most kidney stones are made of calcium. The following is advice for preventing another calcium stone. If you don t know the type of stone you have, follow this advice until the cause of your stone is found. Things that help: The most important thing you can do is to drink plenty of fluids each day. See home care above. Eat foods that contain phytates. These include wheat, rice, rye, barley, and beans. Phytates are substances that may lower your risk for any type of stone to form. Eat more fruits and vegetables. Choose those that are high in potassium. Eat foods high in natural citrate like fruit and low-sugar fruit juices. Having too little calcium in your diet can put you at risk for calcium kidney stones. Eat a normal amount of calcium in your diet and talk with your healthcare provider if you are taking calcium supplements. Cutting back on your calcium intake may raise your risk. New research shows that eating calcium-rich and oxalate-rich foods together lowers your risk for stones by binding the minerals in the stomach and intestines before they can reach the kidneys. Limit salt intake to 2 grams (1 teaspoon) per day. Use limited amounts when cooking, and don t add salt at the table. Processed and canned foods are usually high in salt. Spinach, rhubarb, peanuts, cashews, almonds, grapefruit, and grapefruit juice are all high oxalate foods. You should limit how much of these you eat. Or eat them with calcium-rich foods. These include dairy products, dark leafy greens, soy products, and calcium-enriched foods. Reducing the amount of animal meat and high protein foods in your diet may lower your risk for uric acid stones. Avoid excess sugar (sucrose) and fructose (sweetener in many soft drinks) in your diet. If you take vitamin C as a supplement, don't take more than 1,000 mg a day. A dietitian or your healthcare provider can give you information about changes in your diet that will help prevent more kidney stones from forming. Follow-up care Follow up with your healthcare provider, or as advised, if the pain lasts more than 48 hours. Talk with your provider about urine and blood tests to find out the cause of your stone. If you had an X-ray, CT scan, or other diagnostic test, you will be told of any new findings that may affect your care. Call 911 Call 911 if you have any of these: Weakness, dizziness, or fainting When to seek medical advice Call your healthcare provider right away if any of these occur: Pain that is not controlled by the medicine given Repeated vomiting or unable to keep down fluids Fever of 100.4 F (38 C) or higher, or as directed by your healthcare provider Passage of solid red or brown urine (can't see through it) or urine with lots of blood clots Foul-smelling or cloudy urine Unable to pass urine for 8 hours and increasing bladder pressure [id number] [employer]. [address] [place] [address], [place] [address]. All rights reserved. This information is not intended as a substitute for professional medical care. Always follow your healthcare professional's instructions. Follow Up Care 09/30/2023 11:59:05 With:MARTHA NANCE MD, [facility] Address: [address] [place] [phone] When: Unknown Comments:Follow-up Tuesday. Return if note fever , increased pain [facility] 09-30-2023 Evaluation + Plan note Diagnostic Tests PendingUrine Culture 09/30/23 [facility] 09-30-2023 Emergency department Discharge summary Discharge Instructions Thank you for allowing [facility] to assist you with your healthcare needs. The following is important discharge information regarding your hospital visit. Diagnosis from Today's Visit Dysuria Flank pain Kidney stone What to Do Next Instructions from Your Care Team No qualifying data available. Post Acute Orders No qualifying data available. You Need to Schedule the Following Appointments Follow Up with MARTHA NANCE MD, [facility] When Why: Follow-up Tuesday. Return if note fever , increased pain Where: [address] [place] [phone] Allergies NKA Medications Please ask your primary doctor or pharmacist before taking any other medication not listed, including over the counter drugs, herbal medications, vitamins and or supplements as they may interact with your home medications. What How Much When Why Instructions Last Dose New acetaminophen-hydrocodone (Whitestone 325- 5 mg oral tablet) 1 tab(s) by mouth Every 6 hours as needed for as needed for pain Kidney stone Duration: 3 Days Printed Prescription New cefdinir (cefdinir 300 mg oral capsule) 1 cap by mouth Every 12 hours Duration: 7 Days Printed Prescription New ondansetron (ondansetron 4 mg oral tablet, disintegrating) 1 tab(s) by mouth Every 6 hours as needed for Nausea/Vomiting Printed Prescription Unchanged atorvastatin (atorvastatin 10 mg oral tablet) 1 tab(s) by mouth Daily at bedtime Unchanged insulin degludec (Tresiba FlexTouch 100 units/ mL 3 mL subcutaneous solution) 56 unit(s) Subcutaneous Daily at bedtime Unchanged insulin glargine (Basaglar KwikPen 100 units/ mL subcutaneous solution) 56 unit(s) Subcutaneous Daily at bedtime INJECT 56 UNITS SUBCUTANEOUSLY ONCE DAILY AT BEDTIME Unchanged insulin lispro (HumaLOG) (Insulin Lispro KwikPen 100 units/ mL injectable solution) 32 unit(s) Subcutaneous Three (3) times a day before meals INJECT 32 UNITS SUBCUTANEOUSLY THREE TIMES DAILY BEFORE MEAL(S) Unchanged lisinopril (lisinopril 5 mg oral tablet) 1 tab(s) by mouth Every day Unchanged metFORMIN (MetFORMIN (Eqv-Glucophage XR) 500 mg oral tablet, EXTENDED RELEASE) 1 tab(s) by mouth Two (2) times a day Unchanged rOPINIRole (rOPINIRole 1 mg oral tablet) 1 tab(s) by mouth Daily at bedtime Unchanged tamsulosin (Flomax 0.4 mg oral capsule) 1 cap by mouth Once a day Please take this list to your next doctor s visit. Bring all medications you take, including over the counter medications, herbals and other supplements with you to your doctor s visit. Patients and families are reminded to discard old lists and to update any records with all medication providers or retail pharmacies. Education Materials Urinary Tract Infections in Women Urinary tract infections (UTIs) are most often caused by bacteria. These bacteria enter the urinary tract. The bacteria may come from outside the body. Or they may travel from the skin outside the rectum or vagina into the urethra. Female anatomy makes it easy for bacteria from the bowel to enter a woman s urinary tract, which is the most common source of UTI. This means women develop UTIs more often than men. Pain in or around the urinary tract is a common UTI symptom. But the only way to know for sure if you have a UTI for the healthcare provider to test your urine. The two tests that may be done are the urinalysis and urine culture. Types of UTIs Cystitis. A bladder infection (cystitis) is the most common UTI in women. You may have urgent or frequent urination. You may also have pain, burning when you urinate, and bloody urine. Urethritis. This is an inflamed urethra, which is the tube that carries urine from the bladder to outside the body. You may have lower stomach or back pain. You may also have urgent or frequent urination. Pyelonephritis. This is a kidney infection. If not treated, it can be serious and damage your kidneys. In severe cases, you may need to stay in the hospital. You may have a fever and lower back pain. Medicines to treat a UTI Most UTIs are treated with antibiotics. These kill the bacteria. The length of time you need to take them depends on the type of infection. It may be as short as 3 days. If you have repeated UTIs, you may need a low-dose antibiotic for several months. Take antibiotics exactly as directed. Don t stop taking them until all of the medicine is gone. If you stop taking the antibiotic too soon, the infection may not go away. You may also develop a resistance to the antibiotic. This can make it much harder to treat. Lifestyle changes to treat and prevent UTIs The lifestyle changes below will help get rid of your UTI. They may also help prevent future UTIs. Drink plenty of fluids. This includes water, juice, or other caffeine-free drinks. Fluids help flush bacteria out of your body. Empty your bladder. Always empty your bladder when you feel the urge to urinate. And always urinate before going to sleep. Urine that stays in your bladder can lead to infection. Try to urinate before and after sex as well. Practice good personal hygiene. Wipe yourself from front to back after using the toilet. This helps keep bacteria from getting into the urethra. Use condoms during sex. These help prevent UTIs caused by sexually transmitted bacteria. Also don't use spermicides during sex. These can increase the risk for UTIs. Choose other forms of control instead. For women who tend to get UTIs after sex, a low-dose of a preventive antibiotic may be used. Be sure to discuss this option with your healthcare provider. Follow up with your healthcare provider as directed. He or she may test to make sure the infection has cleared. If needed, more treatment may be started. [id number] [employer]. [address] [place] [address], [place] [address]. All rights reserved. This information is not intended as a substitute for professional medical care. Always follow your healthcare professional's instructions. Kidney Stone with Pain The sharp cramping pain on either side of your lower back and nausea/vomiting that you have are because of a small stone that has formed in the kidney. It is now passing down a narrow tube (ureter) on its way to your bladder. Once the stone reaches your bladder, the pain will often stop. But it may come back as the stone continues to pass out of the bladder and through the urethra. The stone may pass in your urine stream in one piece. The size may be 1/16 inch to 1/4 inch (1 mm to 6 mm). Or, the stone may break up into jazmyn fragments that you may not even notice. Once you have had a kidney stone, you are at risk of getting another one in the future. There are 4 types of kidney stones. Eighty percent are calcium stones mostly calcium oxalate but also some with calcium phosphate. The other 3 types include uric acid stones, struvite stones (from a preceding infection), and rarely, cystine stones. Most stones will pass on their own, but may take from a few hours to a few days. Sometimes the stone is too large to pass by itself. In that case, the healthcare provider will need to use other ways to remove the stone. These techniques include: Lithotripsy. This uses ultrasound waves to break up the stone. Ureteroscopy. This pushes a basket-like instrument through the urethra and bladder and into the ureter to pull out the stone. Various types of direct surgery through the skin Home care The following are general care guidelines: Drink plenty of fluids. This means at least 12, 8-ounce glasses of fluid mostly water a day. Each time you urinate, do so in a jar. Pour the urine from the jar through the strainer and into the toilet. Continue doing this until 24 hours after your pain stops. By then, if there was a kidney stone, it should pass from your bladder. Some stones dissolve into sand-like particles and pass right through the strainer. In that case, you won t ever see a stone. Save any stone that you find in the strainer and bring it to your healthcare provider to look at. It may be possible to stop certain types of stones from forming. For this reason, it is important to know what kind of stone you have. Try to stay as active as possible. This will help the stone pass. Don't stay in bed unless your pain keeps you from getting up. You may notice a red, pink, or brown color to your urine. This is normal while passing a kidney stone. If you develop pain, you may take ibuprofen or naproxen for pain, unless another medicine was prescribed. If you have chronic liver or kidney disease, talk with your healthcare provider before taking these medicines. Also talk with your provider if you've had a stomach ulcer or GI bleeding. Preventing stones Each year for the next 5 to 7 years, you are at risk that a new stone will form. Your risk is a 50% chance over this time period. The risk is higher if you have a family history of kidney stones or have certain chronic illnesses like hypertension, obesity, or diabetes. But you can make changes to your lifestyle and diet that can lower your risk for another stone. Most kidney stones are made of calcium. The following is advice for preventing another calcium stone. If you don t know the type of stone you have, follow this advice until the cause of your stone is found. Things that help: The most important thing you can do is to drink plenty of fluids each day. See home care above. Eat foods that contain phytates. These include wheat, rice, rye, barley, and beans. Phytates are substances that may lower your risk for any type of stone to form. Eat more fruits and vegetables. Choose those that are high in potassium. Eat foods high in natural citrate like fruit and low-sugar fruit juices. Having too little calcium in your diet can put you at risk for calcium kidney stones. Eat a normal amount of calcium in your diet and talk with your healthcare provider if you are taking calcium supplements. Cutting back on your calcium intake may raise your risk. New research shows that eating calcium-rich and oxalate-rich foods together lowers your risk for stones by binding the minerals in the stomach and intestines before they can reach the kidneys. Limit salt intake to 2 grams (1 teaspoon) per day. Use limited amounts when cooking, and don t add salt at the table. Processed and canned foods are usually high in salt. Spinach, rhubarb, peanuts, cashews, almonds, grapefruit, and grapefruit juice are all high oxalate foods. You should limit how much of these you eat. Or eat them with calcium-rich foods. These include dairy products, dark leafy greens, soy products, and calcium-enriched foods. Reducing the amount of animal meat and high protein foods in your diet may lower your risk for uric acid stones. Avoid excess sugar (sucrose) and fructose (sweetener in many soft drinks) in your diet. If you take vitamin C as a supplement, don't take more than 1,000 mg a day. A dietitian or your healthcare provider can give you information about changes in your diet that will help prevent more kidney stones from forming. Follow-up care Follow up with your healthcare provider, or as advised, if the pain lasts more than 48 hours. Talk with your provider about urine and blood tests to find out the cause of your stone. If you had an X-ray, CT scan, or other diagnostic test, you will be told of any new findings that may affect your care. Call 911 Call 911 if you have any of these: Weakness, dizziness, or fainting When to seek medical advice Call your healthcare provider right away if any of these occur: Pain that is not controlled by the medicine given Repeated vomiting or unable to keep down fluids Fever of 100.4 F (38 C) or higher, or as directed by your healthcare provider Passage of solid red or brown urine (can't see through it) or urine with lots of blood clots Foul-smelling or cloudy urine Unable to pass urine for 8 hours and increasing bladder pressure [id number] [employer]. [address] [place] [address]. All rights reserved. This information is not intended as a substitute for professional medical care. Always follow your healthcare professional's instructions. Additional Information VACCINATE! IT SAVES LIVES! Members of the community who have not yet received the COVID-19 vaccine and would like to receive it can visit one of [facility] vaccine clinics. There are many vaccine clinic locations within the [facility]. For locations and available times, please visit www.gettheshot.coronavirus.[place].gov /. It is important to note that some COVID mobile vaccine clinics are held outdoors and may be canceled in rainy or stormy conditions. To learn more about pediatric vaccinations (ages 5-11), we invite you to visit the [facility] webpage. [email or web address]/page [email or web address]-Frequently -[email or web address]-Questions.html To learn more about the COVID-19 vaccine, we invite you to visit the CDC website for a list of frequently asked questions. https://www.cdc.gov/coronavirus/201 9-ncov/vaccines/faq.html [facility] Patient Portal Access Instructions: Stay connected with your healthcare team and access your personal medical information anytime with the [facility] Patient Portal. If you would like a full copy of your medical records please contact the [facility] Medical Records Department Tuesday through Tuesday between 8a.m. and 4:30p.m. Please follow the directions below to access the portal: 1.Access the email account you provided upon registration to the [facility].2.Look for an invitation email from [facility].3.Open the email and access the invitation link: Accept Invitation to [facility].Fill in the required yanez to create your account. Sign into [email or web address] with your username and password that you created in the above steps to stay up to date. You can then view a summary of results, a summary of your visits, and the ability to download your summaries to your computer or send the information securely to a physician. Remember that your healthcare information is confidential, so carefully consider who you will allow to register on the [facility] Patient Portal for access to your information. You can also access the [facility] Patient Portal on the [employer] leola. Simply click on Health Records under Health Data and then click on the [employer] logo. HOW TO SAFELY DISPOSE OF PRESCRIPTION MEDICATIONS Please use one of the following methods to safely dispose of your unused medications. 1.Use a drug disposal kit: the drug disposal pouch allows you to safely discard your old and unused drugs. Ask your nurse to give you one when you are discharged.2.Visit a local take-back location: Many local pharmacies and police departments have programs that collect old and unwanted prescription drugs. Call your local pharmacy or go to http://bit.ly/3E8Da7n to find one close to you.3.Make use of household items: Use cat litter or old coffee grounds to dispose medications if other options are not available. Mix your drugs with these household products, seal them in an airtight container and throw it into the garbage. Call [facility]: [phone] to be sure your drugs can be disposed of in this way. Some medicines may require a different approach.4.Never flush your medications down the toilet. IF YOU HAVE BEEN PRESCRIBED AN OPIOIDS FOR PAIN If you have been prescribed an opioid (such as hydrocodone, oxycodone or morphine), it is critical to understand the possible side effects and risks of opioid pain medications. Even when taken as directed, opioids can have several side effects including: Tolerance, meaning you might need to take more of a medication for the same pain relief. Nausea, vomiting and/or constipation. Sleepiness, dizziness, dry mouth, confusion, depression or itching. Physical dependence, meaning you have withdrawal symptoms when a medication is stopped ? this can develop within a few days. KNOW YOUR RESPONSIBILITIES It is important to know exactly how much and how often to take the opioid pain medications you are prescribed. Never take opioids in higher amounts or more often than prescribed. Do not combine opioids with alcohol or other drugs that cause drowsiness, such as benzodiazepines, also known as benzos, including diazepam and alprazolam, muscle relaxants or sleep aids. Never sell or share prescription opioids. This is illegal. Store opioids in a secure place and out of reach of others (including children, family, friends and visitors). The last page(s) of this document has been signed and retained as a CHART COPY Signatures Patient Education Materials Urinary Tract Infections in Women Kidney Stone w/ Colic Medication Leaflets My discharge plan and instructions have been reviewed and explained to me and I,TRICE ZAMBRANO understand my current condition and have read and understand these discharge instructions. I have received a written copy of the plan/instructions. If I have questions, I am aware that I should contact my doctor. Patient/[employer] Signature: ____ Date/Time: Relationship to Patient: __ Witness Name/Signature: Date/Time: [facility] 09-30-2023 Note ORIGINAL EXAMINATION: CT OF THE ABDOMEN AND PELVIS WITHOUT CONTRAST 09/30/2023 1:26 pm TECHNIQUE: CT of the abdomen and pelvis was performed without the administration of intravenous contrast. Multiplanar reformatted images are provided for review. Automated exposure control, iterative reconstruction, and/or weight based adjustment of the mA/kV was utilized to reduce the radiation dose to as low as reasonably achievable. COMPARISON: September 22, 2023 HISTORY: ORDERING SYSTEM PROVIDED HISTORY: Reason for Exam: kidney stone and infection x 1wk, stone last week, checking progress of stone. LEFT flank pain FINDINGS: Minor degenerative changes are noted in the spine. The lung bases are unremarkable. There is some focal fatty infiltration along the fissure for the falciform ligament. The liver is otherwise unremarkable. A 9 mm hypodensity at the neck of the pancreas is a stable finding since the previous exam. The pancreas is otherwise unremarkable. Spleen and adrenal glands appear normal. 2 mm stone right lower pole kidney. 3 mm stone left upper pole kidney and 3 mm stone left mid pole. Mild left-sided pelvicaliectasis is evident, slightly reduced since the previous study. At the left ureter proximally, above the level of the iliac crest, there is a 3 mm stone seen. More distally, the left ureter is unremarkable. The urinary bladder and the solid pelvic organs are grossly normal. No adenopathy, free air or free fluid seen. A distal left colon anastomosis is present. No other GI tract abnormality seen. A small umbilical fat containing hernia is evident. There is some induration of the left anterior pelvic wall with minimal skin thickening. No additional contributory finding. IMPRESSION: 1. Nephrolithiasis. Mild left-sided obstruction is fairly similar to the prior exam or slightly improved, although the 3 mm proximal left ureteral stone is not positioned significantly different than on prior study. 2. No other significant interval change. Interpreted by: Werner Pham MD Preliminary Report By: Werner Pham MD Electronically signed By Werner Pham MD Dictated Date: 09/30/2023 1:31:24 PM Prelim Date: 09/30/2023 1:36:29 PM Sign Date: 09/30/2023 1:36:29 PM Ordering Provider: [facility] 09-22-2023 Hospital Discharge instructions Patient Education 09/22/2023 18:29:47 Urinary Tract Infections in Women Urinary Tract Infections in Women Urinary tract infections (UTIs) are most often caused by bacteria. These bacteria enter the urinary tract. The bacteria may come from outside the body. Or they may travel from the skin outside the rectum or vagina into the urethra. Female anatomy makes it easy for bacteria from the bowel to enter a woman s urinary tract, which is the most common source of UTI. This means women develop UTIs more often than men. Pain in or around the urinary tract is a common UTI symptom. But the only way to know for sure if you have a UTI for the healthcare provider to test your urine. The two tests that may be done are the urinalysis and urine culture. Types of UTIs Cystitis. A bladder infection (cystitis) is the most common UTI in women. You may have urgent or frequent urination. You may also have pain, burning when you urinate, and bloody urine. Urethritis. This is an inflamed urethra, which is the tube that carries urine from the bladder to outside the body. You may have lower stomach or back pain. You may also have urgent or frequent urination. Pyelonephritis. This is a kidney infection. If not treated, it can be serious and damage your kidneys. In severe cases, you may need to stay in the hospital. You may have a fever and lower back pain. Medicines to treat a UTI Most UTIs are treated with antibiotics. These kill the bacteria. The length of time you need to take them depends on the type of infection. It may be as short as 3 days. If you have repeated UTIs, you may need a low-dose antibiotic for several months. Take antibiotics exactly as directed. Don t stop taking them until all of the medicine is gone. If you stop taking the antibiotic too soon, the infection may not go away. You may also develop a resistance to the antibiotic. This can make it much harder to treat. Lifestyle changes to treat and prevent UTIs The lifestyle changes below will help get rid of your UTI. They may also help prevent future UTIs. Drink plenty of fluids. This includes water, juice, or other caffeine-free drinks. Fluids help flush bacteria out of your body. Empty your bladder. Always empty your bladder when you feel the urge to urinate. And always urinate before going to sleep. Urine that stays in your bladder can lead to infection. Try to urinate before and after sex as well. Practice good personal hygiene. Wipe yourself from front to back after using the toilet. This helps keep bacteria from getting into the urethra. Use condoms during sex. These help prevent UTIs caused by sexually transmitted bacteria. Also don't use spermicides during sex. These can increase the risk for UTIs. Choose other forms of control instead. For women who tend to get UTIs after sex, a low-dose of a preventive antibiotic may be used. Be sure to discuss this option with your healthcare provider. Follow up with your healthcare provider as directed. He or she may test to make sure the infection has cleared. If needed, more treatment may be started. [id number] [employer]. [address] [place] [address], [place] [address]. All rights reserved. This information is not intended as a substitute for professional medical care. Always follow your healthcare professional's instructions. Follow Up Care 09/22/2023 17:51:50 With:MARTHA NANCE MD, [employer] Address: [address] [place] [phone] When:2-4 days With:JEAN CLAUDE HUITRON MD Address: [address] [place] [phone] When:2-4 days [facility] [facility] 09-22-2023 Note Discharge Instructions Thank you for allowing [facility] to assist you with your healthcare needs. The following is important discharge information regarding your hospital visit. Diagnosis from Today's Visit Flank pain Kidney stone UTI - Urinary tract infection What to Do Next Instructions from Your Care Team No qualifying data available. Post Acute Orders No qualifying data available. You Need to Schedule the Following Appointments Follow Up with MARTHA NANCE MD, [employer] When Within 2-4 days Where: [address] [place] [phone] Follow Up with JEAN CLAUDE HUITRON MD When Within 2-4 days Where: [address] [place] [phone]- Allergies NKA Medications Please ask your primary doctor or pharmacist before taking any other medication not listed, including over the counter drugs, herbal medications, vitamins and or supplements as they may interact with your home medications. What How Much When Instructions Last Dose New cephalexin (cephalexin 250 mg oral capsule) 1 cap by mouth Four (4) times a day Duration: 7 Days Printed Prescription New tamsulosin (Flomax 0.4 mg oral capsule) 1 cap by mouth Once a day Printed Prescription Please take this list to your next doctor s visit. Bring all medications you take, including over the counter medications, herbals and other supplements with you to your doctor s visit. Patients and families are reminded to discard old lists and to update any records with all medication providers or retail pharmacies. Education Materials Urinary Tract Infections in Women Urinary tract infections (UTIs) are most often caused by bacteria. These bacteria enter the urinary tract. The bacteria may come from outside the body. Or they may travel from the skin outside the rectum or vagina into the urethra. Female anatomy makes it easy for bacteria from the bowel to enter a woman s urinary tract, which is the most common source of UTI. This means women develop UTIs more often than men. Pain in or around the urinary tract is a common UTI symptom. But the only way to know for sure if you have a UTI for the healthcare provider to test your urine. The two tests that may be done are the urinalysis and urine culture. Types of UTIs Cystitis. A bladder infection (cystitis) is the most common UTI in women. You may have urgent or frequent urination. You may also have pain, burning when you urinate, and bloody urine. Urethritis. This is an inflamed urethra, which is the tube that carries urine from the bladder to outside the body. You may have lower stomach or back pain. You may also have urgent or frequent urination. Pyelonephritis. This is a kidney infection. If not treated, it can be serious and damage your kidneys. In severe cases, you may need to stay in the hospital. You may have a fever and lower back pain. Medicines to treat a UTI Most UTIs are treated with antibiotics. These kill the bacteria. The length of time you need to take them depends on the type of infection. It may be as short as 3 days. If you have repeated UTIs, you may need a low-dose antibiotic for several months. Take antibiotics exactly as directed. Don t stop taking them until all of the medicine is gone. If you stop taking the antibiotic too soon, the infection may not go away. You may also develop a resistance to the antibiotic. This can make it much harder to treat. Lifestyle changes to treat and prevent UTIs The lifestyle changes below will help get rid of your UTI. They may also help prevent future UTIs. Drink plenty of fluids. This includes water, juice, or other caffeine-free drinks. Fluids help flush bacteria out of your body. Empty your bladder. Always empty your bladder when you feel the urge to urinate. And always urinate before going to sleep. Urine that stays in your bladder can lead to infection. Try to urinate before and after sex as well. Practice good personal hygiene. Wipe yourself from front to back after using the toilet. This helps keep bacteria from getting into the urethra. Use condoms during sex. These help prevent UTIs caused by sexually transmitted bacteria. Also don't use spermicides during sex. These can increase the risk for UTIs. Choose other forms of control instead. For women who tend to get UTIs after sex, a low-dose of a preventive antibiotic may be used. Be sure to discuss this option with your healthcare provider. Follow up with your healthcare provider as directed. He or she may test to make sure the infection has cleared. If needed, more treatment may be started. [id number] The [employer]. [address] [place] [address]. All rights reserved. This information is not intended as a substitute for professional medical care. Always follow your healthcare professional's instructions. Additional Information VACCINATE! IT SAVES LIVES! Members of the community who have not yet received the COVID-19 vaccine and would like to receive it can visit one of [facility] vaccine clinics. There are many vaccine clinic locations within the [facility]. For locations and available times, please visit www.gettheshot.coronavirus.[place].gov /. It is important to note that some COVID mobile vaccine clinics are held outdoors and may be canceled in rainy or stormy conditions. To learn more about pediatric vaccinations (ages 5-11), we invite you to visit the [facility] webpage. [email or web address]/page [email or web address]-[email or web address]-Frequently -[email or web address]-Questions.html To learn more about the COVID-19 vaccine, we invite you to visit the CDC website for a list of frequently asked questions. https://www.cdc.gov/coronavirus/201 9-ncov/vaccines/faq.html [facility] Patient Portal Access Instructions: Stay connected with your healthcare team and access your personal medical information anytime with the [facility] Patient Portal. If you would like a full copy of your medical records please contact the [facility] Medical Records Department Tuesday through Tuesday between 8a.m. and 4:30p.m. Please follow the directions below to access the portal: 1.Access the email account you provided upon registration to the [facility].2.Look for an invitation email from [facility].3.Open the email and access the invitation link: Accept Invitation to [facility].Fill in the required yanez to create your account. Sign into www.Demo Lesson with your username and password that you created in the above steps to stay up to date. You can then view a summary of results, a summary of your visits, and the ability to download your summaries to your computer or send the information securely to a physician. Remember that your healthcare information is confidential, so carefully consider who you will allow to register on the [facility] Patient Portal for access to your information. You can also access the [facility] Patient Portal on the [facility] leola. Simply click on Health Records under Health Data and then click on the [facility] logo. HOW TO SAFELY DISPOSE OF PRESCRIPTION MEDICATIONS Please use one of the following methods to safely dispose of your unused medications. 1.Use a drug disposal kit: the drug disposal pouch allows you to safely discard your old and unused drugs. Ask your nurse to give you one when you are discharged.2.Visit a local take-back location: Many local pharmacies and police departments have programs that collect old and unwanted prescription drugs. Call your local pharmacy or go to http://bit.Adore Me/6G8Zs3r to find one close to you.3.Make use of household items: Use cat litter or old coffee grounds to dispose medications if other options are not available. Mix your drugs with these household products, seal them in an airtight container and throw it into the garbage. Call [facility]: [phone] to be sure your drugs can be disposed of in this way. Some medicines may require a different approach.4.Never flush your medications down the toilet. IF YOU HAVE BEEN PRESCRIBED AN OPIOIDS FOR PAIN If you have been prescribed an opioid (such as hydrocodone, oxycodone or morphine), it is critical to understand the possible side effects and risks of opioid pain medications. Even when taken as directed, opioids can have several side effects including: Tolerance, meaning you might need to take more of a medication for the same pain relief. Nausea, vomiting and/or constipation. Sleepiness, dizziness, dry mouth, confusion, depression or itching. Physical dependence, meaning you have withdrawal symptoms when a medication is stopped ? this can develop within a few days. KNOW YOUR RESPONSIBILITIES It is important to know exactly how much and how often to take the opioid pain medications you are prescribed. Never take opioids in higher amounts or more often than prescribed. Do not combine opioids with alcohol or other drugs that cause drowsiness, such as benzodiazepines, also known as benzos, including diazepam and alprazolam, muscle relaxants or sleep aids. Never sell or share prescription opioids. This is illegal. Store opioids in a secure place and out of reach of others (including children, family, friends and visitors). The last page(s) of this document has been signed and retained as a CHART COPY Signatures Patient Education Materials Urinary Tract Infections in Women Medication Leaflets My discharge plan and instructions have been reviewed and explained to me and I,TRICE ZAMBRANO understand my current condition and have read and understand these discharge instructions. I have received a written copy of the plan/instructions. If I have questions, I am aware that I should contact my doctor. Patient/[employer] Signature: ____ Date/Time: Relationship to Patient: __ Witness Name/Signature: Date/Time: [facility] 09-22-2023 Note ORIGINAL EXAMINATION: CT OF THE ABDOMEN AND PELVIS WITHOUT EPBOTPFB42/16/2023 6:38 pm TECHNIQUE: CT of the abdomen and pelvis was performed without the administration of intravenous contrast. Multiplanar reformatted images are provided for review. Automated exposure control, iterative reconstruction, and/or weight based adjustment of the mA/kV was utilized to reduce the radiation dose to as low as reasonably achievable. COMPARISON: None HISTORY: ORDERING SYSTEM PROVIDED HISTORY: Reason for Exam: abdominal pain FINDINGS: Provided images of the lower thorax demonstrate trace pericardial fluid. The liver is unremarkable in size and contour. Minimal focal fat along the falciform ligament. The gallbladder, pancreas, spleen, bilateral adrenal glands are unremarkable. There is a 4 mm obstructing calculus within the proximal left ureter at the L3 level. There is mild resulting left hydroureteronephrosis and left perinephric stranding. Additional bilateral nonobstructing nephroliths are seen. No right hydronephrosis. The urinary bladder is incompletely distended. The small bowel demonstrates no acute abnormalities. There are postsurgical changes of the sigmoid colon with mild focal formed stool. The appendix is normal. There is no free intraperitoneal air or fluid. The aorta is nonaneurysmal. The uterus is unremarkable in size. Along the right superior aspect of the posterior uterus, there is rounded and partly exophytic soft tissue lesion measuring 4.4 cm, likely reflecting a fibroid. No adnexal mass. No suspicious osseous lesions are identified. Postsurgical changes of the left abdominal wall. IMPRESSION: 4 mm obstructing ureteral calculus with mild left hydroureteronephrosis. Additional nonobstructing bilateral nephrolithiasis. Incidental findings as described above. Interpreted by: Dwaine Guzman DO Preliminary Report By: Dwaine Guzman DO Electronically signed By Dwaine Guzman DO Dictated Date: 09/22/2023 6:42:27 PM Prelim Date: 09/22/2023 6:46:22 PM Sign Date: 09/22/2023 6:46:22 PM Ordering Provider: MYA MYERS [facility] 08-09-2023 Miscellaneous Notes Form completed and forwarded to Madeline Belle and patient updated. Form was received and given to nurse. Did we receive a new form for this pt. She completed CMP. Lillie Alva Ma documented in this encounter [facility] 08-09-2023 Miscellaneous Notes Phoned patient and updated her with results and provider's message. Surgical clearance forwarded to Madeline Belle as requested. ----- Message from Jean Claude Huitron MD sent at 08/09/2023 6:35 PM EDT ----- Normal labs. Kidney function normal with creatinine <2. Surgical clearance form signed. Please fax clearance form. documented in this encounter [facility] 08-08-2023 Miscellaneous Notes Notified via [employer]. Chantel Vences Ma She does not need another OV. Recommend rechecking CMP in the next couple of days. I do not have a form for this anymore. Can they fax over another form to our office? Alternatively, we can send over my last note. I do not see that pt has had a pre op appt recently, last OV was May 2023. Over 30 days ago. Do you want pt scheduled for pre op exam? Chantel Vences Ma documented in this encounter [facility] 07-08-2023 Miscellaneous Notes TC to pt. Left a detailed message on a secure line with updates. Emmy Rodriguez LPN Order for Humalog sent. Please let patient know. Irlanda Hogan APRN.JAISON Patient has been identified by name and date of : Yes Requested Prescriptions Pending Prescriptions Disp Refills insulin lispro (HUMALOG KWIKPEN) 100 unit/mL 16 Each 3 Sig: Inject 36 Units subcutaneously three times daily before meals. RX INSTRUCTIONS: Please note: 06/03/23: MED UPDATE ONLY. Patient needs this medication today. Patient requesting a call when RX is approved and sent to the pharmacy. Please call patient at: [phone] Radha Nieves' documented in this encounter [facility] 06-08-2023 Miscellaneous Notes Faxed as requested. Radha Dalton MA Lucy from [employer] calling asking to have pre op clearance form faxed to [phone] if completed please. Please advise Type of letter/form/fax request - pre op form-left shoulder arthroscopy with subacromial decompression, distal clavicle excision and rotator cuff repair. Form received from fax on 1 floor and placed on MD desk (Dr. Huitron) for completion. Completed form needs to be faxed to [employer]. Pt has appt today for pre op exam with PCP. Surgery date to be determined. Need most recent A1c results. Pt will have pre op testing scheduled through [facility] once her surgery is scheduled. Route to RAGHU when form completed for processing documented in this encounter [facility] 06-07-2023 Miscellaneous Notes Trice Zambrano (Siddiqui: [id number]) - [id number] Tresiba FlexTouch (insulin degludec injection) 100 Units/mL solution Status: New - Approved Created: June 03, 2023 [id number] documented in this encounter [facility] 06-03-2023 History of Present illness Narrative Chief Complaint Patient presents with: [facility] HPI Trice Zambrano is a 42 year old female who presents here today for pre op exam. No chest pains, dizziness, or SOB. Denies any issues in the past with surgeries or anesthesia. No surgery date at this time, she is going to be getting left shoulder arthroscopy with subacromial decompression, distal clavicle excision and rotator cuff repair with Dr. Moore. Able to climb a flight of stairs without difficulty. No complications with anesthesia in the past. Denies fever/chills, cough, SOB, wheezing, chest pain, palpitations, claudication, LE edema, weight loss. DIABETES MELLITUS: Ms. Zambrano was last seen 4 months ago. Since our last visit she denies excessive thirst or increased frequency of urination, numbness, tingling or pain in extremities, and new or unusual visual symptoms. Admits to 2 low sugars in her 60's in the middle of the night. States both times she had taken late evening walk. Follows a diabetic diet most of the time. She is compliant with medication(s) and is tolerating med(s) without any side effects. Taking 36 units of humalog TID instead of 32 on accident. Has been taking her long acting insulin BID like she is supposed to. Last rx was entered erroneously. She reports checking her glucose on a twice a day schedule with sugars in the fasting 140-160 range. Getting similar readings 1 hour after lunch. Did not bring readings with her today. Patient's last HgA1C was Hemoglobin A1C (%) Date Value 12/28/2022 10.8 04/21/2022 9.7 07/15/2021 6.9 06/01/2021 7.5 ) Last Ophthalmology exam was less than [address] [facility] in . Last Podiatry exam was 12 months ago. Past medical history, appointments, medications, allergies reviewed. 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 Previous Surgical History PAST SURGICAL HISTORY Procedure Laterality Date ANESTH, SECTION x1 INCISION & DRAINAGE ABSCESS COMPLICATED/MULTIPLE 04/25/2021 buttock abscess drainage LAPAROSCOPY SURG CHOLECYSTECTOMY 12/30/2015 PAST SURGICAL HISTORY OF 09/2021 ileostomy reversal Family History FAMILY HISTORY Problem Relation Age of Onset Heart Mother Drug abuse Mother Stroke Father Hypertension Maternal Grandmother other (scleroderma) Paternal Grandmother Diabetes Maternal Uncle No Known Problems Son No Known Problems Daughter Patient Allergies ALLERGIES Allergen Reactions Metformin Diarrhea Occurred while on XR formulation Trulicity [Dulaglut* Vomiting Nausea/vomiting, diarrhea and epigastric pain. Current Medications Current Outpatient Medications on File Prior to Visit Medication Sig rOPINIRole (REQUIP) 1 mg tablet Take 1 tablet by mouth daily at bedtime. albuterol HFA (PROVENTIL HFA, VENTOLIN HFA) 90 mcg/actuation inhaler Inhale 2 Puffs as instructed every 4 hours as needed for wheezing/shortness of breath. insulin degludec (TRESIBA FLEXTOUCH U-100) 100 unit/mL (3 mL) injection pen Inject 56 Units subcutaneously daily at bedtime. insulin lispro (HUMALOG KWIKPEN) 100 unit/mL Inject 32 Units subcutaneously three times daily before meals. metFORMIN ER (GLUCOPHAGE XR) 500 mg 24 hr tablet Take 1 tablet by mouth twice daily. blood sugar diagnostic ([employer] VERIO TEST STRIPS) test strip Test blood sugar(s) 4 times daily. Dx: Type 2 DM - Controlled E11.9 Insulin: Yes atorvastatin (LIPITOR) 10 mg tablet Take 1 tablet by mouth daily at bedtime. For cholesterol. lisinopril (ZESTRIL, PRINIVIL) 5 mg tablet Take 1 tablet by mouth once daily. insulin lispro (HUMALOG KWIKPEN INSULIN) 100 unit/mL Inject 26 units subcutaneously with meals. Insulin [place], Disposable, (BD ULTRA-FINE VINOD PEN NEEDLE) 32 gauge x 5/32 Use one needle for each dose. 5/day. Lancets lancets Test blood sugar(s) 4 times daily. Dx: Type 2 DM - Controlled E11.9 Insulin: Yes Lancets (ACCU-CHEK SOFTCLIX LANCETS) lancets Test blood sugar(s) 4 times daily and as needed. Dx: 250.02. Insulin: Yes Blood-Glucose Meter (ACCU-CHEK KENNY PLUS METER) misc Test glucose twice daily, 250.02. Insulin yes. VINOD PEN NEEDLE 32 gauge x 5/32 ndle use 1 NEEDLE FOR EACH DOSE, four times a day multivitamin tablet Take 1 tablet by mouth once daily. No current facility-administered medications on file prior to visit. Social History Social History Tobacco Use Smoking status: Never Smokeless tobacco: Never Vaping Use Vaping Use: Never used Substance Use Topics Alcohol use: No Drug use: No Review of Symptoms REVIEW OF SYSTEMS See HPI EXAM: BP 128/78 Pulse 80 Resp 16 Wt 109.3 kg (241 lb) LMP 01/09/2023 BMI 36.64 kg/m General Appearance: Well appearing, alert, in no acute distress, well-hydrated, well nourished.. Skin: Skin color, texture, turgor normal, no suspicious rashes or lesions. Lungs: Lungs clear to auscultation. No wheezing, rhonchi, rales.. Heart: RRR without murmur, gallop, or rubs. No ectopy. Abdomen: Normal abdominal exam, Abdomen soft, non-tender. Bowel sounds normal. No masses, organomegaly. Extremities: No deformities, edema, skin discoloration, clubbing or cyanosis. Good capillary refill. . Feet: Shoes and socks removed, No deformities, ulcers, calluses, normal distal pulses, and sensitive to 10 gm monofilament Health Maintenance List HEPATITIS B(1 of 3 - 3-dose series) Never done PAP TESTING Never done HPV TESTING Never done PNEUMOCOCCAL(2 - PCV) due on 08/06/2017 DIABETIC FOOT EXAM due on 06/05/2022 MAMMOGRAM due on 12/11/2022 DILATED RETINAL EXAM due on 12/15/2022 HBA1C due on 03/27/2023 URINE ALBUMIN:CREATININE RATIO due on 04/21/2023 LDL CHOLESTEROL due on 04/21/2023 COVID-19 VACCINE(1) due on 12/02/2023 INFLUENZA(1) due on 07/08/2023 ANNUAL PCP TEAM CHRONIC DISEASE VISIT due on 01/15/2024 DTAP,TDAP,TD(2 - Td or Tdap) due on 10/10/2029 DEPRESSION ASSESSMENT Completed HEPATITIS C SCREENING Completed HIV SCREENING Completed HPV VACCINE Aged Out Data reviewed Component Latest Ref Rng & Units 12/28/2022 02/27/2023 WBC 3.70 - 11.00 k/uL 8.53 RBC 3.90 - 5.20 m/uL 4.48 Hemoglobin 11.5 - 15.5 g/dL 13.7 Hematocrit 36.0 - 46.0 % 39.8 MCV 80.0 - 100.0 fL 88.8 MCH 26.0 - 34.0 pg 30.6 MCHC 30.5 - 36.0 g/dL 34.4 RDW-CV 11.5 - 15.0 % 12.8 Platelet Count 150 - 400 k/uL 233 MPV 9.0 - 12.7 fL 11.1 Neut% % 68.3 Abs Neut (ANC) 1.45 - 7.50 k/uL 5.83 Lymph% % 24.3 Abs Lymph 1.00 - 4.00 k/uL 2.07 Griggs% % 5.4 Abs Griggs <0.87 k/uL 0.46 Eosin% % 1.4 Abs Eosin <0.46 k/uL 0.12 Baso% % 0.4 Abs Baso <0.11 k/uL 0.03 Immature Gran % % 0.2 IMMATURE GRANS (ABS) <0.10 k/uL <0.03 NRBC /100 WBC 0.0 Absolute nRBC <0.01 k/uL <0.01 DTYPE Auto Protein, Total 6.3 - 8.0 g/dL 6.6 7.7 Albumin 3.9 - 4.9 g/dL 3.9 4.4 Calcium 8.5 - 10.2 mg/dL 9.8 9.8 Bilirubin, Total 0.2 - 1.3 mg/dL 0.2 0.2 Alkaline Phosphatase 34 - 123 U/L 134 (H) 121 AST 13 - 35 U/L 20 18 ALT 7 - 38 U/L 32 22 Glucose 74 - 99 mg/dL 374 (H) 211 (H) BUN 7 - 21 mg/dL 20 17 Creatinine 0.58 - 0.96 mg/dL 0.82 0.79 Sodium 136 - 144 mmol/L 135 (L) 140 Potassium 3.7 - 5.1 mmol/L 4.6 4.1 Chloride 97 - 105 mmol/L 102 103 CO2 22 - 30 mmol/L 21 (L) 28 Anion Gap 9 - 18 mmol/L 12 9 eGFR >=60 mL/min/1.73m 92 96 Hemoglobin A1C 4.3 - 5.6 % 10.8 (H) Estimated Average Glucose mg/dL 263 PT Sec 9.7 - 13.0 sec 9.5 (L) PT INR 0.9 - 1.3 <0.9 (L) Glucose, Point of Care 74 - 99 mg/dL 249 (A) EKG: NSR at 90 bpm, minimal voltage criteria for LVH, may be normal variant. ASSESSMENT/PLAN: 1. Type 2 diabetes mellitus with hyperglycemia, with long-term current use of insulin (HCC) - ICD9: 250.00, 790.29, V58.67, ICD10: E11.65, Z79.4 (primary diagnosis) - Uncontrolled - Increase Tresiba to 60 units BID. - Blood glucose monitoring on a four times daily schedule - Counseled on healthy diet and regular exercise - Discussed need for and benefit of weight loss. BMI 36.64 kg/(m^2) - Discussed diabetic education issues of diabetes complications and monitoring required, hypoglycemic/hyperglycemic symptoms, medication-specific side effects and monitoring, and diabetic sick day rules - Follow up in 3 months, sooner should any other issues arise. - CBC + DIFF - COMP METABOLIC PANEL - HGB A1C - LIPID PANEL, NONFASTING - ALBUMIN/CREAT RATIO RND UR - INSULIN LISPRO (U-100) 100 UNIT/ML SUBCUTANEOUS PEN 2. Pre-op evaluation - ICD9: V72.84, ICD10: Z01.818 Based on the patient's history, physical, functional status, and ACS risk score, he has an 0.9% chance of a serious adverse cardiac event. This is average risk for his age an the planned operation. The risk is below the recommended threshold for further evaluation. Will obtain A1c to determine DM control and if acceptable, would recommend she proceed with procedure as scheduled. Will fax this note and lab results to surgeon once completed. - CBC + DIFF - COMP METABOLIC PANEL - HGB A1C - ECG COMPLETE 3. Traumatic tear of left rotator cuff, unspecified tear extent, subsequent encounter - ICD9: V58.89, 840.4, ICD10: S46.012D See above for pre op evaluation. F/u with ortho as scheduled. Awaiting A1c to see about DM control prior to procedure. Jean Claude Huitron MD documented in this encounter [facility] 06-01-2023 Miscellaneous Notes Patient last visit with PCP 01/14/23 Follow up appointment scheduled 06/03/23 Dagmar Perez Ma documented in this encounter [facility] 05-16-2023 Miscellaneous Notes Patient has been identified by name and date of : Yes Patient phones for refill(s): Requested Prescriptions Pending Prescriptions Disp Refills rOPINIRole (REQUIP) 1 mg tablet 90 tablet 1 Sig: Take 1 tablet by mouth daily at bedtime. Date of last office visit in primary care: AMIRAH 01/14/23 NOV not scheduled Last 2 Encounter Wt Readings: Date: Wt: 04/05/2023 107.6 kg (237 lb 3.2 oz) 02/27/2023 108.8 kg (239 lb 13.8 oz) Please advise. Thank you. VELVET Rey documented in this encounter [facility] 04-13-2023 Discharge summary Note Date/Time April 13, 2023 7:01p [facility] Medical Records Department [address] [place] [address] Emergency Department Summary 04/13/23 MR#: [id number] Acct: [id number] Name: TRICE ZAMBRANO Rep #:[id number] : 1980 42 From: Cosme Link MD PCP: Dr. Joaquin Huitron MD Status :REG ER Location: ED ADDENDUM by Dr. Cosme Link MD on 04/13/23 at 1926 When patient was informed of results. She informed that she cannot move her arm. She is not able to AB duct past 60 degrees. This raises concern for rotator cuff tear. Will refer to Dr. Fields. 04/13/231926<Electronically signed by Cosme Link MD> Cosigner Signature (if applicable): cc: Dr. Joaquin Huitron MD ~* Signed HPI History of Present Illness Chief Complaint: Fall Detail of Chief Complaint: Fall down a flight of stairs at work Informant: patient Onset/Context/Timing Onset: Today (At approximately 11 AM) Mechanism/Context: Blunt Injury and Fall Location of pain/injuries: Left shoulder and Left knee Quality of Pain: Dull and Aching Location: Also complains of pain left lower rib cage and left upper quadrant Current Severity: Mild Maximum Severity: Severe Worsened by: Movement of her extremities and palpation of the chest wall Relieved by: Nothing Associated Symptoms Associated Symptoms: Negative for Parasthesias, Weakness, Loss of function, Inability to ambulate, Loss of consciousness or Amnesia Narrative Narrative: Patient is a 43-year-old woman with history of diabetes who presents after fall down flight of steps. This occurred at work. It occurred at approximately 1 AM. She fell backwards. She did strike her head. She denies loss of conscious. She not amnestic. She denies headache. Denies nausea vomiting. Denies visual symptoms. Denies ringing or ears or decreased hearing. She denies paresthesia, anesthesia or motor weakness upper or lower extremity presently the time of the fall. She does complain chest pain denies shortness of breath. She denies back or flank pain. She denies change in the color of her urine. She has no allergies to pain medicine. She is not on an anticoagulant or antithrombotic. Tetanus Immunization: 5-10 years Prior similar symptoms: No Recent Illness/Hospitalization: No PFSH PFSH Medical History Current use of insulin Diabetes History of necrotising fasciitis Home Medications hydrocodone-acetaminophen 5-325mg 5mg-325mg 1 tab PO Q4H PRN PRN Pain 2 days #10TABLETS 04/23/21 [Rx Last Taken Unknown] insulin glargine 100 unit/mL (3 mL) subcutaneous pen (Basaglar KwikPen U-100 Insulin) 40 unit subcut BID 04/23/21 [History Last Taken Unknown] insulin lispro 100 unit/mL subcutaneous pen (Humalog KwikPen (U-100) Insulin) 22unit subcut TID 04/23/21 [History Last Taken Unknown] amoxicillin 875 mg-potassium clavulanate 125 mg tablet 875 mg PO Q12H #20 TABLETS 05/23/21 [Rx Last Taken Unknown] levofloxacin 500 mg tablet 500 mg PO DAILY #7 tabs 05/25/21 [Rx Last Taken Unknown] atorvastatin 10 mg tablet 10 mg PO QHS 09/14/21 [History Last Taken Unknown] cyclobenzaprine 10 mg tablet 10 mg PO TID PRN PRN Muscle Spasm 09/14/21 [History Last Taken Unknown] gabapentin 100 mg capsule 100 mg PO TID 09/14/21 [History Last Taken Unknown] lisinopril 5 mg tablet 5 mg PO DAILY 09/14/21 [History Last Taken Unknown] ondansetron HCl 4 mg tablet 4 mg PO PRN PRN Nausea 09/14/21 [History Last Taken Unknown] oxycodone 5 mg tablet 5 mg PO PRN PRN Pain 09/14/21 [History Last Taken Unknown] cefpodoxime 200 mg tablet 200 mg PO BID #20 tabs 06/13/22 [Rx Last Taken Unknown] oxycodone-acetaminophen 5 mg-325 mg tablet (Percocet) 1 tab PO Q6H PRN pain 3 days #12 tabs 06/13/22 [Rx Last Taken Unknown] oxycodone-acetaminophen 5 mg-325 mg tablet 1 tab PO Q6H PRN PRN pain 5 days #20 TABLETS 04/13/23 [Rx Last Taken Unknown] Allergy/AdvReac Type Severity Reaction Status Date / Time metformin AdvReac Nausea Verified 04/13/23 17:38 Surgical History H/O: History of cholecystectomy History of colostomy History of colostomy reversal S/P tubal ligation Social History adopted: No household members: spouse and children housing: house number of children: 2 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 pets and animals: No leisure activities: art, games and volunteer work history of recent travel: No sexually active: Yes Smoking Status: Never smoker ROS ROS ED Constitutional Constitutional ED: Denies chills, fever(s), subjective, sweats or weight loss Eyes Eyes: Denies blurry vision or change in vision ENT ENT ED: Denies ear pain, rhinorrhea or sore throat Cardiovascular Cardiovascular: Reports chest pain; Denies palpitations or racing heartbeat Respiratory/Chest Respiratory/Chest: Denies cough, dyspnea or dyspnea on exertion Gastrointestinal Gastrointestinal: Reports abdominal pain; Denies constipation, diarrhea, melena,nausea or vomiting Genitourinary Genitourinary ED: Denies dysuria, hematuria or urinary frequency Musculoskeletal Musculoskeletal: Reports other Details: Left clavicle, left shoulder and left knee pain there is an abrasion noted over the left patella. ; Denies arthralgias, back pain, myalgias or neck pain Integumentary Reports Abrasions Neurologic Neurologic: Denies headache(s), paresthesias or weakness Psychiatric Psychiatric: Denies anxiety Endocrine Endocrinology: Denies polydipsia or polyuria Hematologic/Lymphatic Hematologic/Lymphatic: Denies easy bleeding or easy bruising EXAM Physical Exam Const Vital Signs: 04/13/23 17:27 04/13/23 17:43 Temperature 97.5 F L Temperature Source Temporal Pulse Rate 99 Respiratory Rate 16 Respiratory Effort Normal Non-Labored Blood Pressure 156/86 H Blood Pressure Mean 109 Pulse Ox 98 Oxygen Delivery Method Room Air Positive well nourished, well developed and obese Constitutional Narrative: Patient appears uncomfortable. She is reluctant to move her left upper extremity because of shoulder pain. General Appearance ED: well developed; Negative for NAD Nutritional Appearance: obese HEENT Reports TM's clear HEENT Narrative: There is a subcutaneous hematoma left parietal occipital region. There is no palpable oppression. There is no clinical signs of basilar skull fracture. There is no septal deviation hematoma. There is no dental trauma. There is no TMJ tenderness right or left. trauma Tympanic Membrane ED: Yes TM's clear Eyes PERRL and EOMs intact bilaterally General Eye ED: Yes other Other Details: There is no subconjunctival hemorrhage noted Neck full ROM General: Negative for tenderness Chest Wall inspection of chest normal and palpation of chest normal Chest Narrative: There is pain outpatient over the clavicle and there is pain to palpation over the left lower ribs anterior axillary line to the posterior axillary line, 5 through 9 there is no crepitus subcutaneous air noted. Resp normal respiratory effort and clear to auscultation bilaterally Cardio regular rhythm, S1 normal heart sound, S2 normal heart sound and no murmurs Rate: regular rate GI normal to inspection, nondistended, normoactive bowel sounds, non-distended and no masses; Negative for non-tender Palpation: soft, tender LUQ (Right costal margin region.) and guarding LUQ Back/Spine normal to inspection and no thoracic nor lumbar tenderness General Back: Negative for CVA tenderness Extremity Negative for normal to inspection Extremity Narrative: Abrasion noted over the left patella. Full extension 180 degrees and flexion to90 degrees. There is no laxity varus valgus stress testing. There is no joint line tenderness. There is pain ovation of the patella. There is no laxity withvarus valgus stress testing. There is no click with modified Jay's test. Reno's test was not. Neuro oriented x3, CN's II-XII intact bilaterally, moves all extremities, no focal motor deficits and gait normal John Coma Scale: document GCS findings Spontaneous Obeys Commands Oriented 15 Sensorium / Orientation: alert Plantar Reflex: Downgoing: bilateral Psych mental status grossly normal and thought process normal Skin no rashes or lesions noted, skin turgor normal and no jaundice Skin Narrative: Abrasion noted over the left follow-up MDM MDM MDM Narrative Medical decision making narrative: Per the [place] CT head rule imaging of the head is not required. Since there is no cervical spine tenderness and she has full active range of motion without grimacing or hesitation x-rays of the neck were not obtained. Will obtain x-rayof the clavicle and shoulder as well as knee to assess for fracture, dislocationor combination. Because of concern for splenic injury and lower rib cage fracture CT of the abdomen pelvis was obtained with IV contrast. Per my review there is no rib fractures, pneumothorax or hemothorax. The spleen appears normal as does the kidney. Awaiting formal read by radiology. Lab Data Attestation: I reviewed the patient's lab results. Lab results narrative: White count is elevated due to stress and pain. Glucose is elevated at 426 witha normal CO2 anion gap. Labs: Laboratory Results - last 24 hr 04/13/23 04/13/23 04/13/23 17:51 17:55 17:55 WBC 12.5 H RBC 4.63 Hgb 13.6 Hct 40.7 MCV 87.9 MCH 29.4 MCHC 33.4 RDW Std Deviation 39.3 RDW Coeff of Meet 12.3 Plt Count 266 MPV 11.8 Immature Gran % (Auto) 0.800 Neut % (Auto) 72.1 H Lymph % (Auto) 20.2 Griggs % (Auto) 5.1 Eos % (Auto) 1.4 Baso % (Auto) 0.4 Absolute Neuts (auto) 9.0 H Absolute Lymphs (auto) 2.52 Nucleated RBC % 0 Sodium 137 Potassium 4.2 Chloride 101 Carbon Dioxide 28.0 Anion Gap 8 BUN 17 Creatinine 1.02 Estim Creat Clear Calc 72.48 Est GFR (MDRD) Af Amer 76 Est GFR (MDRD) Non-Af 63 BUN/Creatinine Ratio 16.7 Glucose 426 H Calcium 10.0 POC Glucose 427 H Radiography Chest X-Ray - ED: Read by ED Physician (2 view x-ray of the left clavicle and dependently interpreted by me as negative for fracture. The AC joint is normal. This was independent reviewed interpreted by me at 1836.) and - (Three-view x-ray of the knee and 2 view x-ray of the left shoulder were independently interpreted by me as negative as well at 1836 with no evidence of fracture, subluxation dislocation etc. There is no effusion on the knee portion.) Diagnostic Testing: Clinical Impression(s) from Imaging Studies Abdomen/Pelvis CT 04/13/23 17:39 IMPRESSION: No fracture. No solid organ injury. Hepatomegaly. No biliary dilatation. Right renal stone. No hydronephrosis. Uterine fibroid. Electronically Signed: Filippo Howe MD at 19:01 EDT , Clavicle X-Ray 04/13/23 18:00 IMPRESSION: Normal x-ray examination of the clavicle. Electronically Signed: Filippo Howe MD at 18:47 EDT , Knee X-Ray 04/13/23 18:00 IMPRESSION: Normal x-ray examination of the knee. Electronically Signed: Filippo Howe MD at 18:37 EDT , Shoulder X-Ray 04/13/23 18:00 IMPRESSION: Normal x-ray examination of the shoulder. Electronically Signed: Filippo Howe MD at 18:49 EDT , CT read by radiologist reveals a right renal stone. Otherwise there are is no additional information discrepancy compared to my reads. Treatment and Re-Evaluation Narrative: Patient was seen and walking to the restroom. She is holding her left upper extremity internally rotated and adductor. She states she still has pain. She was offered more pain medicine which she declined. Discharge Plan Triage Chief Complaint: Fall ED Provider: Cosme Link Dx/Rx/DC Orders Clinical Impression: Contusion of scalp, Contusion of left shoulder or upper extremity, Contusion ofleft knee, initial encounter, Abrasion, left knee, initial encounter, Fall down stairs, Type 1 diabetes mellitus with hyperglycemia Instructions: ED Contusion, Lower Extremity, ED Contusion, Upper Extremity, ED Head Injury (Adult) Prescriptions: New oxycodone-acetaminophen [oxycodone-acetaminophen] 5-325 mg tablet 1 tab PO Q6H PRN PRN (Reason: pain) 5 Days Qty: 20 0RF No Action insulin lispro [Humalog KwikPen Insulin] 100 unit/mL insulin pen 22 unit SUBCUT TID Label Comments: INJECT 22 UNITS SUBCUTANEOULSY WITH MEALS Basaglar KwikPen U-100 Insulin 100 unit/mL (3 mL) insulin pen 40 unit SUBCUT BID Label Comments: INJECT 40 UNITS SUBCUTANEOUSLY TWICE DAILY hydrocodone-acetaminophen 5-325 mg tablet 1 tab PO Q4H PRN PRN (Reason: Pain) 2 Days Qty: 10 0RF amoxicillin-pot clavulanate [amoxicillin-pot clavulanate] 875 MG tablet 875 mg PO Q12H Qty: 20 0RF levofloxacin [levofloxacin] 500 MG tablet 500 mg PO DAILY Qty: 7 0RF cyclobenzaprine 10 mg tablet 10 mg PO TID PRN PRN (Reason: Muscle Spasm) atorvastatin 10 mg tablet 10 mg PO QHS ondansetron HCl 4 mg tablet 4 mg PO PRN PRN (Reason: Nausea) lisinopril 5 mg tablet 5 mg PO DAILY gabapentin 100 mg capsule 100 mg PO TID oxycodone 5 mg tablet 5 mg PO PRN PRN (Reason: Pain) cefpodoxime 200 mg tablet 200 mg PO BID Qty: 20 0RF Rx Instructions: must administer with a meal/food oxycodone-acetaminophen [Percocet] 5-325 mg tablet 1 tab PO Q6H PRN (Reason: pain) 3 Days Qty: 12 0RF Primary Care Provider: Joaquin Huitron Referrals: Joaquin Huitron MD [Primary Care Provider] - What to do if you have Problems For any increased pain, shortness of breath, bleeding, nausea or vomiting, chestpain, or any unexpected problems, contact your Primary Care Provider. Call [facility] ([phone]) or report to the closest Emergency Room. Call 911 if necessary. 04/13/231921 <Electronically signed by Cosme Link MD> Cosigner Signature (if applicable): CC: Dr. Joaquin Huitron MD ~ Signed [facility] Work Phone: [phone] Miscellaneous Notes* Telephone Encounter - Joann Aponte - 04/06/2023 7:26 AM EDT Patient given results and verbalized understanding of instructions given. Joann Aponte * Telephone Encounter - Rony Chávez APRN.CNP - 04/06/2023 7:15 AM EDT Negative For COVID and flu please notify thank you [facility] Miscellaneous Notes* Addendum Note - Letitia Odell APRN.CNP - 04/05/2023 10:26 AM EDT Addended by: LETITIA ODELL on: 04/05/2023 10:26 AM Modules accepted: Orders [facility] History of Present illness Narrative* Letitia Odell APRN.CNP - 04/05/2023 9:45 AM EDT Subjective HPI Trice Zambrano is a 42 year old female who presents with one week of cough, sore throat, shortness of breath and wheezing, and nasal congestion and drainage. She has been taking Mucinex and Delsymat home. She had a temperature at home of 100 degrees F. 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 She states her cough is productive. Review of Systems Constitutional: Positive for fever and malaise/fatigue. HENT: Positive for congestion and sore throat. Respiratory: Positive for cough, sputum production, shortness of breath and wheezing. Cardiovascular: Negative for chest pain. Musculoskeletal: Negative for myalgias. Neurological: Positive for dizziness. Negative for headaches. BP 126/82 Pulse 98 Temp 36.7 C (98 F) Resp 16 Wt 107.6 kg (237 lb 3.2 oz) LMP 01/09/2023 SpO2 98% BMI 36.07 kg/m 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 insulin lispro (HUMALOG KWIKPEN) 100 unit/mL Inject 32 Units subcutaneously three times daily before meals. metFORMIN ER (GLUCOPHAGE XR) 500 mg 24 hr tablet Take 1 tablet by mouth twice daily. blood sugar diagnostic ([employer] - Inform[employer] VERIO TEST STRIPS) test strip Test blood sugar(s) 4 times daily. Dx: Type 2 DM - Controlled E11.9 Insulin: Yes atorvastatin (LIPITOR) 10 mg tablet Take 1 tablet by mouth daily at bedtime. For cholesterol. lisinopril (ZESTRIL, PRINIVIL) 5 mg tablet Take 1 tablet by mouth once daily. rOPINIRole (REQUIP) 1 mg tablet Take 1 tablet by mouth daily at bedtime. insulin lispro (HUMALOG KWIKPEN INSULIN) 100 unit/mL Inject 26 units subcutaneously with meals. Insulin [place], Disposable, (BD ULTRA-FINE VINOD PEN NEEDLE) 32 gauge x 5/32 Use one needle for each dose. 5/day. Lancets lancets Test blood sugar(s) 4 times daily. Dx: Type 2 DM - Controlled E11.9 Insulin: Yes Lancets (ACCU-CHEK SOFTCLIX LANCETS) lancets Test blood sugar(s) 4 times daily and as needed. Dx: 250.02. Insulin: Yes Blood-Glucose Meter (ACCU-CHEK KENNY PLUS METER) misc Test glucose twice daily, 250.02. Insulin yes. VINOD PEN NEEDLE 32 gauge x 5/32 ndle use 1 NEEDLE FOR EACH DOSE, four times a day multivitamin tablet Take 1 tablet by mouth once daily. amoxicillin-clavulanic acid (AUGMENTIN) 875-125 mg per tablet Take 1 tablet by mouth twice daily for 10 days. predniSONE (DELTASONE) 20 mg tablet Take 2 tablets by mouth once daily for 4 days. Take daily with food. albuterol HFA (PROVENTIL HFA, VENTOLIN HFA) 90 mcg/actuation inhaler Inhale 2 Puffs as instructed every 4 hours as needed for wheezing/shortness of breath. Inhalational Spacing Device 1 Device one time only for 1 dose. FAMILY HISTORY Problem Relation Age of Onset Heart Mother Drug abuse Mother Stroke Father Hypertension Maternal Grandmother other (scleroderma) Paternal Grandmother Diabetes Maternal Uncle No Known Problems Son No Known Problems Daughter Social History Tobacco Use Smoking status: Never Smokeless tobacco: Never Vaping Use Vaping Use: Never used Substance Use Topics Alcohol use: No Drug use: No Objective Physical Exam Vitals and nursing note reviewed. Constitutional: Appearance: Normal appearance. HENT: Right Ear: Tympanic membrane, ear canal and external ear normal. Left Ear: Tympanic membrane, ear canal and external ear normal. Nose: Mucosal edema, congestion and rhinorrhea present. Mouth/Throat: Mouth: Mucous membranes are moist. Pharynx: Uvula midline. Posterior oropharyngeal erythema present. No oropharyngeal exudate. Cardiovascular: Rate and Rhythm: Normal rate and regular rhythm. Heart sounds: Normal heart sounds. Pulmonary: Effort: Pulmonary effort is normal. No respiratory distress. Breath sounds: Examination of the right-upper field reveals wheezing. Examination of the left-upperfield reveals wheezing. Examination of the right- lower field reveals wheezing. Examination of the left-lower field reveals wheezing. Wheezing present. No rales. Musculoskeletal: Cervical back: Neck supple. Lymphadenopathy: Cervical: No cervical adenopathy. Skin: General: Skin is warm and dry. Findings: No erythema or rash. Neurological: Mental Status: She is alert. ASSESSMENT/PLAN: 1. Sinobronchitis - ICD9: 473.9, 490, ICD10: J32.9, J40 - Will begin treatment with as per antibiotic as written, see orders - Supportive care with plenty of fluids, rest, and analgesia prn. - AMOXICILLIN 875 MG-POTASSIUM CLAVULANATE 125 MG TABLET - PREDNISONE 20 MG TABLET - ALBUTEROL SULFATE HFA 90 MCG/ACTUATION AEROSOL INHALER - INHALATIONAL SPACING DEVICE - Follow-up with your PCP in 3-5 days if symptoms have not improved or sooner if symptoms worsen - Discussed red flags and need for immediate medical evaluation if any occur. - Discussed supportive care treatment with fluids, rest and analgesia. - Discussed expected course of illness Letitia Odell APRN.CNP [facility] Instructions* Patient Instructions* Letitia Odell APRN.CNP - 04/05/2023 9:40 AM EDT ASSESSMENT/PLAN: 1. Sinobronchitis - ICD9: 473.9, 490, ICD10: J32.9, J40 - Will begin treatment with as per antibiotic as written, see orders - Supportive care with plenty of fluids, rest, and analgesia prn. - AMOXICILLIN 875 MG-POTASSIUM CLAVULANATE 125 MG TABLET - PREDNISONE 20 MG TABLET - ALBUTEROL SULFATE HFA 90 MCG/ACTUATION AEROSOL INHALER - INHALATIONAL SPACING DEVICE - Follow-up with your PCP in 3-5 days if symptoms have not improved or sooner if symptoms worsen - Discussed red flags and need for immediate medical evaluation if any occur. - Discussed supportive care treatment with fluids, rest and analgesia. - Discussed expected course of illness Letitia Odell APRN.CNP ACUTE BRONCHITIS: You have acute bronchitis. This means the airway passages in your lungs are inflamed. Bronchitis may be caused by viruses or bacteria. Inhaling cigarette smoke will always make it worse. Exposure to irritating chemicals or second hand smoke as well as allergies can contribute to bronchitis. Repeat episodes of bronchitis may cause lifelong lung problems. Acute bronchitis is usually treated with rest, fluids, cough medicine, and possibly antibiotics or inhaled medicine to open up the small airways. It is very important that you avoid smoke and drink increased amounts of fluids. A cool air vaporizer can help thin bronchial secretions. This makes it easier to cough and clear your chest. If you are a cigarette smoker, consider using nicotine gum or skin patches to help you withdraw. Recovery from bronchitis is often slow, but you should start feeling better after 2-3 days of treatment. Please call your doctor or return here if you have any of the following symptoms: Increased fever, chills, or chest pain. Severe shortness of breath or bloody sputum. Do not improve after 3 days of proper treatment. [facility] History of Present illness Narrative* Bobbi Herbert APRN.CNP - 02/27/2023 3:10 PM EDT CC: Patient presents with: Numbness: Right arm, worsening, no known injury started Tuesday HPI Trice Zambrano is a 42 year old female who presents today for above. Patient reports sudden onset numbness, tingling and pain from bicep to fingers. Associated with weakness and difficulty holding onto things and rash to lower arm. Aggravated by: nothing Alleviated by: nothing Denies injury, swelling, redness, itching, neck or shoulder pain. Patient then mentions on 02/22 she had left facial numbness and drooping that last 5 to 10 minutes. About 10 days prior to this she had severe headache that was debilitating and associated with light/sound sensitivity. She never usually gets headaches. She is diabetic, blood sugars are well controlled. Denies cardiac or stroke history. REVIEW OF SYSTEMS GENERAL: Negative for malaise, significant weight loss, fever, chills, night sweats HEENT: Negative for significant change in vision, significant vision problems RESPIRATORY: Negative for cough, wheezing and shortness of breath CARDIOVASCULAR: Negative for chest pain, leg swelling NEURO: no syncope, no seizures, no dizziness, no memory loss, no confusion, no numbness or tinglingof feet, no neck stiffness, no involuntary movements, no tremor 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 insulin lispro (HUMALOG KWIKPEN) 100 unit/mL Inject 32 Units subcutaneously three times daily before meals. metFORMIN ER (GLUCOPHAGE XR) 500 mg 24 hr tablet Take 1 tablet by mouth twice daily. blood sugar diagnostic (ONETOUCH VERIO TEST STRIPS) test strip Test blood sugar(s) 4 times daily. Dx: Type 2 DM - Controlled E11.9 Insulin: Yes atorvastatin (LIPITOR) 10 mg tablet Take 1 tablet by mouth daily at bedtime. For cholesterol. lisinopril (ZESTRIL, PRINIVIL) 5 mg tablet Take 1 tablet by mouth once daily. rOPINIRole (REQUIP) 1 mg tablet Take 1 tablet by mouth daily at bedtime. insulin lispro (HUMALOG KWIKPEN INSULIN) 100 unit/mL Inject 26 units subcutaneously with meals. Insulin Olivet, Disposable, (BD ULTRA-FINE VINOD PEN NEEDLE) 32 gauge x 5/32 Use one needle for each dose. 5/day. Lancets lancets Test blood sugar(s) 4 times daily. Dx: Type 2 DM - Controlled E11.9 Insulin: Yes Lancets (ACCU-CHEK SOFTCLIX LANCETS) lancets Test blood sugar(s) 4 times daily and as needed. Dx: 250.02. Insulin: Yes Blood-Glucose Meter (ACCU-CHEK KENNY PLUS METER) [facility] Test glucose twice daily, 250.02. Insulin yes. VINOD PEN NEEDLE 32 gauge x 5/32 ndle use 1 NEEDLE FOR EACH DOSE, four times a day multivitamin tablet Take 1 tablet by mouth once daily. FAMILY HISTORY Problem Relation Age of Onset Heart Mother Drug abuse Mother Stroke Father Hypertension Maternal Grandmother other (scleroderma) Paternal Grandmother Diabetes Maternal Uncle No Known Problems Son No Known Problems Daughter Social History Tobacco Use Smoking status: Never Smokeless tobacco: Never Vaping Use Vaping Use: Never used Substance Use Topics Alcohol use: No Drug use: No PHYSICAL EXAM BP 128/78 Pulse 98 Resp 16 Wt 110.7 kg (244 lb) LMP 11/07/2022 SpO2 98% BMI 37.10 kg/m General Appearance: well appearing, in no acute distress, alert Pysch: mood and affect broad and appropriate Head: normocephalic, atraumatic Eyes: PERRLA, EOM's intact, conjunctiva pink and moist, no icterus, sclera white, non-injected Neck: Neck supple, No adenopathy Lungs: Lungs clear to auscultation. No wheezing, rhonchi, rales. Heart: RRR without murmur, gallop, or rubs. No ectopy Extremities: No deformities, edema, skin discoloration, clubbing or cyanosis. Good capillary refill. , Pulses: 2+ Musculoskeletal: RUE- tenderness with palpation of entire bicep, antecubital fossa, radius, and entire wrist. Painful ROM of the wrist. Positive Tinel. Negative Phalen. Neurological: Muscle strength 4/5 RUE and 5/5 LUE. Weak right hand grasp. 5/5 BLE. speech normal, mental status intact, cranial nerves 2-12 intact, rapid alternating movements normal, finger to nose normal, reflexes normal and symmetric ASSESSMENT/PLAN: 1. Right arm pain - ICD9: 729.5, ICD10: M79.601 (primary diagnosis) Exam consistent with musculoskeletal cause however in light of facial numbness and headache recommend further evaluation in the ER. Patient is agreeable. She is stable for self transport. Her husbandis present with her and will drive [facility] to [facility]. 2. Numbness and tingling of right arm - ICD9: 782.0, ICD10: R20.0, R20.2 As above 3. Headache, unspecified headache type - ICD9: 784.0, ICD10: R51.9 As above 4. Left facial numbness - ICD9: 782.0, ICD10: R20.0 As above Prescription instructions reviewed with patient as applicable. Potential red flag symptoms discussed with the patient. Reviewed appropriate action plan to take if red flag symptoms occur. Patient agreeable to treatment plan. Bobbi Herbert APRN.CNP documented in this encounterMer[facility]03-13-2023 Miscellaneous Notes* Telephone Encounter - KRYSTAL Sharpe - 01/17/2023 10:56 AM EDT Telephoned the patient to schedule a new Primary Care pharmacy appt. Left a message. documented in this encounterMercer County [facility]03-10-2023 History of Present illness Narrative* Jean Claude Huitron MD - 01/14/2023 8:24 AM EST Chief Complaint Patient presents with: Follow Up: DM- lantus needs to be changed to basaglar for insurance purposes HPI Trice Zambrano is a 42 year old female who presents here today for Above Complaints.. Patient has not been in for DM follow up in 9 months. DIABETES MELLITUS: Ms. Zambrano was last seen 9 months ago. Since our last visit she denies excessive thirst or increased frequency of urination, numbness, tingling or pain in extremities, new or unusual visual symptoms, and low sugar/hypoglycemic reactions. Follows a diabetic diet most of the time. Sugars have been higher since she had gluteal abscess earlier this year. She is compliant with medication(s) and is tolerating med(s) without any side effects. She reports checking her glucose on a 1-3times a day schedule with sugars in the fasting 200-300 range and bedtime 250-350's. Patient's [id number] was Hemoglobin A1C (%) Date Value 12/28/2022 10.8 04/21/2022 9.7 07/15/2021 6.9 06/01/2021 7.5 ) Last Ophthalmology exam was within the past 12 months-Madeline Angeles Has appointment next month. Last Podiatry exam was more than 12 months ago. Past medical history, appointments, medications, allergies reviewed. 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 Previous Surgical History PAST SURGICAL HISTORY Procedure Laterality Date ANESTH, SECTION x1 INCISION & DRAINAGE ABSCESS COMPLICATED/MULTIPLE 04/25/2021 buttock abscess drainage LAPAROSCOPY SURG CHOLECYSTECTOMY 12/30/2015 PAST SURGICAL HISTORY OF 09/2021 ileostomy reversal Family History FAMILY HISTORY Problem Relation Age of Onset Heart Mother Drug abuse Mother Stroke Father Hypertension Maternal Grandmother other (scleroderma) Paternal Grandmother Diabetes Maternal Uncle No Known Problems Son No Known Problems Daughter Patient Allergies ALLERGIES Allergen Reactions Metformin Diarrhea Occurred while on XR formulation Trulicity [Dulaglut* Vomiting Nausea/vomiting, diarrhea and epigastric pain. Current Medications Current Outpatient Medications on File Prior to Visit Medication Sig blood sugar diagnostic (ONETOUCH VERIO TEST STRIPS) test strip Test blood sugar(s) 4 times daily. Dx: Type 2 DM - Controlled E11.9 Insulin: Yes atorvastatin (LIPITOR) 10 mg tablet Take 1 tablet by mouth daily at bedtime. For cholesterol. lisinopril (ZESTRIL, PRINIVIL) 5 mg tablet Take 1 tablet by mouth once daily. rOPINIRole (REQUIP) 1 mg tablet Take 1 tablet by mouth daily at bedtime. insulin glargine (LANTUS SOLOSTAR U-100 INSULIN) 100 unit/mL (3 mL) Inject 46 units subcutaneously twice a day insulin lispro (HUMALOG KWIKPEN INSULIN) 100 unit/mL Inject 26 units subcutaneously with meals. Insulin Olivet, Disposable, (BD ULTRA-FINE VINOD PEN NEEDLE) 32 gauge x 5/32 Use one needle for each dose. 5/day. Lancets lancets Test blood sugar(s) 4 times daily. Dx: Type 2 DM - Controlled E11.9 Insulin: Yes Lancets (ACCU-CHEK SOFTCLIX LANCETS) lancets Test blood sugar(s) 4 times daily and as needed. Dx: 250.02. Insulin: Yes Blood-Glucose Meter (ACCU-CHEK KENNY PLUS METER) misc Test glucose twice daily, 250.02. Insulin yes. VINOD PEN NEEDLE 32 gauge x 5/32 ndle use 1 NEEDLE FOR EACH DOSE, four times a day multivitamin tablet Take 1 tablet by mouth once daily. ondansetron orally disintegrating (ZOFRAN ODT) 4 mg disintegrating tablet Take 1 tablet by mouth every 6 hours as needed for nausea/vomiting. (Patient not taking: Reported on 01/14/2023) insulin lispro (HUMALOG KWIKPEN) 100 unit/mL Inject 26 Units subcutaneously three times daily before meals. oxyCODONE-acetaminophen (PERCOCET) 5-325 mg tablet Take 1 tablet by mouth every 6 hours as needed for pain. (Patient not taking: Reported on 01/14/2023) No current facility-administered medications on file prior to visit. Social History Social History Tobacco Use Smoking status: Never Smokeless tobacco: Never Vaping Use Vaping Use: Never used Substance Use Topics Alcohol use: No Drug use: No Review of Symptoms REVIEW OF SYSTEMS See HPI EXAM: BP 128/78 Pulse 87 Resp 16 Wt 109.5 kg (241 lb 6.4 oz) LMP 11/07/2022 SpO2 97% BMI 36.70 kg/m General Appearance: Well appearing, alert, in no acute distress, well-hydrated, well nourished.. Skin: Skin color, texture, turgor normal, no suspicious rashes or lesions. Lungs: Lungs clear to auscultation. No wheezing, rhonchi, rales.. Heart: RRR without murmur, gallop, or rubs. No ectopy. Abdomen: Normal abdominal exam, Abdomen soft, non-tender. Bowel sounds normal. No masses, organomegaly. Extremities: No deformities, edema, skin discoloration, clubbing or cyanosis. Good capillary refill. . Health Maintenance List PAP TESTING Never done HPV TESTING Never done DIABETIC FOOT EXAM due on 06/05/2022 INFLUENZA(1) due on 07/08/2022 MAMMOGRAM due on 12/11/2022 DILATED RETINAL EXAM due on 12/15/2022 HEPATITIS B(1 of 3 - 3-dose series) due on 04/22/2023 PNEUMOCOCCAL(2 - PCV) due on 04/22/2023 COVID-19 VACCINE(1) due on 12/02/2023 HBA1C due on 03/27/2023 URINE ALBUMIN:CREATININE RATIO due on 04/21/2023 LDL CHOLESTEROL due on 04/21/2023 ANNUAL PCP TEAM CHRONIC DISEASE VISIT due on 01/15/2024 DTAP,TDAP,TD(2 - Td or Tdap) due on 10/10/2029 DEPRESSION ASSESSMENT Completed HEPATITIS C SCREENING Completed HIV SCREENING Completed Data reviewed Component Latest Ref Rng & Units 12/28/2022 Protein, Total 6.3 - 8.0 g/dL 6.6 Albumin 3.9 - 4.9 g/dL 3.9 Calcium 8.5 - 10.2 mg/dL 9.8 Bilirubin, Total 0.2 - 1.3 mg/dL 0.2 Alkaline Phosphatase 34 - 123 U/L 134 (H) AST 13 - 35 U/L 20 ALT 7 - 38 U/L 32 Glucose 74 - 99 mg/dL 374 (H) BUN 7 - 21 mg/dL 20 Creatinine 0.58 - 0.96 mg/dL 0.82 Sodium 136 - 144 mmol/L 135 (L) Potassium 3.7 - 5.1 mmol/L 4.6 Chloride 97 - 105 mmol/L 102 CO2 22 - 30 mmol/L 21 (L) Anion Gap 9 - 18 mmol/L 12 eGFR >=60 mL/min/1.73m 92 Hemoglobin A1C 4.3 - 5.6 % 10.8 (H) Estimated Average Glucose mg/dL 263 ASSESSMENT/PLAN: 1. Type 2 diabetes mellitus with hyperglycemia, with long-term current use of insulin (HCC) - ICD9:250.00, 790.29, V58.67, ICD10: E11.65, Z79.4 - Uncontrolled Increase insulin as ordered and call in 2 weeks with updated readings. - Blood glucose monitoring on a 3-4 times daily schedule - Counseled on healthy diet and regular exercise - Discussed need for and benefit of weight loss. BMI 36.70 kg/(m^2) - Discussed diabetic education issues of diabetes complications and monitoring required, hypoglycemic/hyperglycemic symptoms, medication-specific side effects and monitoring, and diabetic sick day rules - INSULIN LISPRO (U-100) 100 UNIT/ML SUBCUTANEOUS PEN - METFORMIN ER 500 MG TABLET,EXTENDED RELEASE 24 HR - INSULIN GLARGINE (U-100) 100 UNIT/ML (3 ML) SUBCUTANEOUS PEN - CONSULT TO INTM NURSE DIABETES - [facility]NER [CONSULT TO SOCIAL WORK] - CONSULT TO DIABETES EDUCATION - CONSULT TO PHARMACY - REFER BACK TO PCP FOR DM TYPE 2 MAINT Jean Claude Huitron MD documented in this encounterMercer [facility]03-02-2023 Miscellaneous Notes* Telephone Encounter - Celeste Villa LPN - 01/06/2023 11:28 AM EST Phoned patient to discuss provider's message with her. Left detailed message on secure VM to adviseher to call in and schedule follow up DM appointment. * Telephone Encounter - Jean Claude Huitron MD - 01/05/2023 2:48 PM EST Poorly controlled diabetes with A1c up to 10.8. other labs unremarkable. Need her to follow up in office to discuss home readings and med adjustment. documented in this encounterMercer County [facility]02-07-2023 Miscellaneous Notes* Telephone Encounter - Gabriela Llamas LPN - 12/14/2022 7:23 AM EST Patient read [employer] message x2. Gabriela Llamas LPN * Telephone Encounter - Jean Claude Huitron MD - 12/06/2022 8:44 AM EST Did they send her a list of approved insulin? documented in this encounterMercer [facility]01-30-2023 Miscellaneous Notes* Telephone Encounter - Chantel Vences Ma - 12/06/2022 6:52 PM EST Last office visit: 12/02/22 F/u scheduled: 12/10/22 Chantel Vences Ma documented in this encounterMercer County [facility]01-26-2023 History of Present illness Narrative* Jean Claude Huitron MD - 12/02/2022 3:40 PM EST Chief Complaint Patient presents with: Follow Up: Follow up Immunizations: Flu vaccination HPI Trice Zambrano is a 42 year old female who presents here today for ER Follow Up. Patient evaluated at [facility] ED on 11/28 for right gluteal abscess which required I&D. Added Keflex to the Doxycycline she had been prescribed at an 3 days prior and recommended f/u with our office. Wound culture obtained which grew mccarthy sensitive staph. Since discharge, patient has been taking abx as prescribed with side effect of nausea and has noticed less pain, swelling, improved warmth to touch. Getting less dark brown drainage than previously. Denies fever/chills, vomiting, diarrhea. Given zofran for nausea which is working well for her. Has Percocet at home which she used the first 2 days after I&D, but is not needing now. Not taking anything OTC for pain. Past medical history, appointments, medications, allergies reviewed. 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 Previous Surgical History PAST SURGICAL HISTORY Procedure Laterality Date ANESTH, SECTION x1 INCISION & DRAINAGE ABSCESS COMPLICATED/MULTIPLE 04/25/2021 buttock abscess drainage LAPAROSCOPY SURG CHOLECYSTECTOMY 12/30/2015 PAST SURGICAL HISTORY OF 09/2021 ileostomy reversal Family History FAMILY HISTORY Problem Relation Age of Onset Heart Mother Drug abuse Mother Stroke Father Hypertension Maternal Grandmother other (scleroderma) Paternal Grandmother Diabetes Maternal Uncle No Known Problems Son No Known Problems Daughter Patient Allergies ALLERGIES Allergen Reactions Metformin Diarrhea Occurred while on XR formulation Trulicity [Dulaglut* Vomiting Nausea/vomiting, diarrhea and epigastric pain. Current Medications Current Outpatient Medications on File Prior to Visit Medication Sig ondansetron orally disintegrating (ZOFRAN ODT) 4 mg disintegrating tablet Take 1 tablet by mouth every 6 hours as needed for nausea/vomiting. cephALEXin (KEFLEX) 500 mg capsule Take 1 capsule by mouth four times daily for 7 days. sulfamethoxazole-trimethoprim (BACTRIM DS) 800-160 mg per tablet Take 1 tablet by mouth twice dailyfor 7 days. doxycycline hyclate (VIBRAMYCIN) 100 mg capsule Take 1 capsule by mouth twice daily for 10 days. insulin lispro (HUMALOG KWIKPEN) 100 unit/mL Inject 26 Units subcutaneously three times daily before meals. insulin glargine (LANTUS SOLOSTAR U-100 INSULIN) 100 unit/mL (3 mL) Inject 46 units subcutaneously twice a day oxyCODONE-acetaminophen (PERCOCET) 5-325 mg tablet Take 1 tablet by mouth every 6 hours as needed for pain. blood sugar diagnostic (ONETOUCH VERIO TEST STRIPS) test strip Test blood sugar(s) 4 times daily. Dx: Type 2 DM - Controlled E11.9 Insulin: Yes lisinopril (ZESTRIL, PRINIVIL) 5 mg tablet Take 1 tablet by mouth once daily. insulin lispro (HUMALOG KWIKPEN INSULIN) 100 unit/mL Inject 26 units subcutaneously with meals. Lancets lancets Test blood sugar(s) 4 times daily. Dx: Type 2 DM - Controlled E11.9 Insulin: Yes Lancets (ACCU-CHEK SOFTCLIX LANCETS) lancets Test blood sugar(s) 4 times daily and as needed. Dx: 250.02. Insulin: Yes Blood-Glucose Meter (ACCU-CHEK KENNY PLUS METER) misc Test glucose twice daily, 250.02. Insulin yes. VINOD PEN NEEDLE 32 gauge x 5/32 ndle use 1 NEEDLE FOR EACH DOSE, four times a day multivitamin tablet Take 1 tablet by mouth once daily. rOPINIRole (REQUIP) 1 mg tablet Take 1 tablet by mouth daily at bedtime. atorvastatin (LIPITOR) 10 mg tablet Take 1 tablet by mouth daily at bedtime. For cholesterol. Insulin Olivet, Disposable, (BD ULTRA-FINE VINOD PEN NEEDLE) 32 gauge x 5/32 Use one needle for each dose. 5/day. No current facility-administered medications on file prior to visit. Social History Social History Tobacco Use Smoking status: Never Smokeless tobacco: Never Vaping Use Vaping Use: Never used Substance Use Topics Alcohol use: No Drug use: No Review of Symptoms REVIEW OF SYSTEMS See HPI EXAM: BP 138/80 Pulse 90 Resp 16 Wt 111.1 kg (245 lb) LMP 11/07/2022 SpO2 99% BMI 37.25 kg/m General Appearance: Well appearing, alert, in no acute distress, well-hydrated, well nourished.. Skin: Tennis ball area of induration on right lower glute with central I&D site. Able to express serous/purulent fluid. No surrounding erythema outside area of induration. No fluctuance. Health Maintenance List PAP TESTING Never done HPV TESTING Never done DIABETIC FOOT EXAM due on 06/05/2022 INFLUENZA(1) due on 07/08/2022 HBA1C due on 07/22/2022 DEPRESSION ASSESSMENT Never done MAMMOGRAM due on 12/11/2022 DILATED RETINAL EXAM due on 12/15/2022 HEPATITIS B(1 of 3 - 3-dose series) due on 04/22/2023 PNEUMOCOCCAL(2 - PCV) due on 04/22/2023 COVID-19 VACCINE(1) due on 12/02/2023 URINE ALBUMIN:CREATININE RATIO due on 04/21/2023 LDL CHOLESTEROL due on 04/21/2023 ANNUAL PCP TEAM CHRONIC DISEASE VISIT due on 09/10/2023 DTAP,TDAP,TD(2 - Td or Tdap) due on 10/10/2029 HEPATITIS C SCREENING Completed HIV SCREENING Completed Data reviewed Component Latest Ref Rng & Units 11/28/2022 11/28/2022 11/28/2022 11/28/2022 11/28/2022 11/28/2022 4:11 PM 4:12 PM 4:54 PM 6:08 PM 7:31 PM 7:31 PM WBC 3.70 - 11.00 k/uL 10.28 RBC 3.90 - 5.20 m/uL 4.30 Hemoglobin 11.5 - 15.5 g/dL 12.9 Hematocrit 36.0 - 46.0 % 38.4 MCV 80.0 - 100.0 fL 89.3 MCH 26.0 - 34.0 pg 30.0 MCHC 30.5 - 36.0 g/dL 33.6 RDW-CV 11.5 - 15.0 % 12.8 Platelet Count 150 - 400 k/uL 179 MPV 9.0 - 12.7 fL 11.6 Neut% % 77.3 Abs Neut (ANC) 1.45 - 7.50 k/uL 7.95 (H) Lymph% % 13.8 Abs Lymph 1.00 - 4.00 k/uL 1.42 Griggs% % 7.6 Abs Griggs <0.87 k/uL 0.78 Eosin% % 0.6 Abs Eosin <0.46 k/uL 0.06 Baso% % 0.4 Abs Baso <0.11 k/uL 0.04 Immature Gran % % 0.3 IMMATURE GRANS (ABS) <0.10 k/uL 0.03 NRBC /100 WBC 0.0 Absolute nRBC <0.01 k/uL <0.01 DTYPE Auto Protein, Total 6.3 - 8.0 g/dL 6.6 Albumin 3.9 - 4.9 g/dL 3.5 (L) Calcium 8.5 - 10.2 mg/dL 8.7 Bilirubin, Total 0.2 - 1.3 mg/dL 0.3 Alkaline Phosphatase 34 - 123 U/L 88 AST 13 - 35 U/L 13 ALT 7 - 38 U/L 12 Glucose 74 - 99 mg/dL 389 (H) BUN 7 - 21 mg/dL 12 Creatinine 0.58 - 0.96 mg/dL 0.78 Sodium 136 - 144 mmol/L 132 (L) Potassium 3.7 - 5.1 mmol/L 3.8 Chloride 97 - 105 mmol/L 99 CO2 22 - 30 mmol/L 25 Anion Gap 9 - 18 mmol/L 8 (L) eGFR >=60 mL/min/1.73m 97 Color Yellow Yellow Clarity Clear Clear Glucose, Urine Negative 3+ (A) Bilirubin, Urine Negative Negative Ketones, Urine Negative Negative Specific [place], Ur 1.005 - 1.030 <=1.005 (L) Hemoglobin/Blood,Ur Negative, Trace Trace pH, Urine 5.0 - 8.0 6.5 Protein, Urine Negative Negative Urobilinogen 0.2-1.0 EU/dL 0.2 EU/dL Nitrites Negative Negative Leukest Negative Negative WBC, Urine 0-5 /HPF 0-5 /HPF RBC, Urine 0-3 /HPF 0-3 /HPF Bacteria None Seen /HPF Few (A) Epithelial Cells /HPF Few pH, Venous 7.32 - 7.42 7.36 pCO2, Venous 42 - 55 mmHg 45 pO2, Venous 35 - 45 mmHg <31 (L) Base Deficit, Venous -2 - 0 mmol/L >-1 Bicarbonate, Venous 24 - 28 mmol/L 25 Oxyhemoglobin, Venous 60 - 85 % 45 (L) Carboxyhemoglobin, Venous 0.0 - 2.0 % 1.0 Methemoglobin, Venous 0.0 - 1.5 % 1.0 Potassium, Whole Blood 3.5 - 5.0 mmol/L 3.7 Lactate 0.5 - 2.2 mmol/L 2.0 Hemoglobin Total, Whole Blood 11.5 - 15.5 g/dL 13.4 O2 Therapy RA=Room Air COVID 19 Result Not Detected SARS-CoV-2 (Agent of COVID-19) Not Detected by RT- PCR or equivalent method. Influenza A PCR Negative for Influenza A by RT-PCR Negative for Influenza A by RT-PCR Influenza B PCR Negative for Influenza B by RT-PCR Negative for Influenza B by RT-PCR RSV PCR Negative for Respiratory Syncytial Virus (RSV) by PCR Negative for Respiratory Syncytial Virus (RSV) by PCR WOUND CULTURE Moderate Streptococcus agalactiae (group b streptococcus) (A) Few skin chris Smear Result Few Gram positive cocci in pairs and chains (A) Few Polymorphonuclear leukocytes (A) PT Sec 9.7 - 13.0 sec 9.8 PT INR 0.9 - 1.3 1.0 APTT 23.0 - 32.4 sec 26.0 Culture No growth 3 days No growth 3 days HCG, Qualitative Negative Negative ASSESSMENT/PLAN: 1. Abscess, gluteal, right - ICD9: 682.5, ICD10: L02.31 (primary diagnosis) Improving s/p abscess - Continue treatment with Keflex and doxycycline as prescribed. - No lymphangetic streaking, this was defined for patient to watch for and to seek medical care immediately if appears - Follow up for recheck in 1 week - OTC analgesics for pain - DOXYCYCLINE HYCLATE 100 MG TABLET 2. Status post incision and drainage - ICD9: V45.89, ICD10: Z98.890 3. Type 2 diabetes mellitus with hyperglycemia, with long-term current use of insulin (HCC) - ICD9:250.00, 790.29, V58.67, ICD10: E11.65, Z79.4 Will order repeat labs and f/u in 1 months. - HGB A1C - COMP METABOLIC PANEL Jean Claude Huitron MD documented in this encounterMercer County [facility] Hospital01-23-2023 Miscellaneous Notes* Telephone Encounter - Gabriela Llamas LPN - 11/29/2022 2:08 PM EST Detailed message left on patients verified VM. Instructed to call back with questions if has any. Gabriela Llamas LPN * Telephone Encounter - Irlanda Hogan APRN.GANDY DANCER - 11/29/2022 2:03 PM EST Short term supply sent. Follow-up as scheduled. Irlanda Hogan APRN.JAISON * Telephone Encounter - Brayden Bird RN - 11/29/2022 1:36 PM EST Patient calling with request for Zofran for nausea from taking Keflex prescribed in [place] ER yesterday for gluteal abscess. She says she has a follow up appointment with PCP on 12/02. [facility]. Brayden Bird RN documented in this encounterMercer County Community Hospital01-22-2023 NoteCOVID 19 RESULT: SARS-CoV-2 (Agent of COVID-19) Not Detected by RT-PCR or equivalent method. This test has been authorized by FDA under an Emergency Use Authorization (EUA). INFLUENZA A PCR: Negative for Influenza A by RT-PCR INFLUENZA B PCR: Negative for Influenza B by RT-PCR RSV PCR: Negative for Respiratory Syncytial Virus (RSV) by PCRPocola HospitalComment on above:Performed By: #### [id number] ####[facility]ORATORYCLIA [id number] [address] [place] [id number] History of Present illness Narrative* Letitia Odell APRN.CNP - 11/25/2022 2:01 PM EST Images from the original note were not included. Subjective HPI Trice Zambrano is a 42 year old female who presents with a boil on her right buttock that has been present since last night. She noticed the area was sore last night and today she has a bump therewhich is tender. She has history of a boil on her left buttock in 2020 that led to hospitalization for necrotizing fasciitis and temporary colostomy to divert stool. She is diabetic. She rates her pain 4/10 today, worse with sitting. She did warm water/epsom salt baths last night and this morning. She has not had any fever or chills. Review of Systems Constitutional: Negative for chills and fever. Genitourinary: See HPI Musculoskeletal: Negative for joint pain and myalgias. Skin: Negative for itching and rash. BP 128/98 Pulse 120 Temp 36.8 C (98.2 F) Resp 21 Wt 109.3 kg (241 lb) LMP 05/26/2022 SpO2 97% BMI 38.61 kg/m 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 PAST SURGICAL HISTORY Procedure Laterality Date ANESTH, SECTION x1 INCISION & DRAINAGE ABSCESS COMPLICATED/MULTIPLE 04/25/2021 buttock abscess drainage LAPAROSCOPY SURG CHOLECYSTECTOMY 12/30/2015 PAST SURGICAL HISTORY OF 09/2021 ileostomy reversal ALLERGIES Metformin and Trulicity [Dulaglutide] MEDICATIONS insulin lispro (HUMALOG KWIKPEN) 100 unit/mL Inject 26 Units subcutaneously three times daily before meals. insulin glargine (LANTUS SOLOSTAR U-100 INSULIN) 100 unit/mL (3 mL) Inject 46 units subcutaneously twice a day oxyCODONE-acetaminophen (PERCOCET) 5-325 mg tablet Take 1 tablet by mouth every 6 hours as needed for pain. promethazine (PHENERGAN) 25 mg tablet Take 1 tablet by mouth every 6 hours as needed for nausea/vomiting. rOPINIRole (REQUIP) 1 mg tablet Take 1 tablet by mouth daily at bedtime. blood sugar diagnostic (Zhima TechTOUCH VERIO TEST STRIPS) test strip Test blood sugar(s) 4 times daily. Dx: Type 2 DM - Controlled E11.9 Insulin: Yes atorvastatin (LIPITOR) 10 mg tablet Take 1 tablet by mouth daily at bedtime. For cholesterol. lisinopril (ZESTRIL, PRINIVIL) 5 mg tablet Take 1 tablet by mouth once daily. insulin lispro (HUMALOG KWIKPEN INSULIN) 100 unit/mL Inject 26 units subcutaneously with meals. Insulin [place], Disposable, (BD ULTRA-FINE VINOD PEN NEEDLE) 32 gauge x Use one needle for each dose. 5/day. Lancets lancets Test blood sugar(s) 4 times daily. Dx: Type 2 DM - Controlled E11.9 Insulin: Yes Lancets (ACCU-CHEK SOFTCLIX LANCETS) lancets Test blood sugar(s) 4 times daily and as needed. Dx: 250.02. Insulin: Yes Blood-Glucose Meter (ACCU-CHEK KENNY PLUS METER) misc Test glucose twice daily, 250.02. Insulin yes. VINOD PEN NEEDLE 32 gauge x 5/32 ndle use 1 NEEDLE FOR EACH DOSE, four times a day multivitamin tablet Take 1 tablet by mouth once daily. doxycycline hyclate (VIBRAMYCIN) 100 mg capsule Take 1 capsule by mouth twice daily for 10 days. FAMILY HISTORY Problem Relation Age of Onset Heart Mother Drug abuse Mother Stroke Father Hypertension Maternal Grandmother other (scleroderma) Paternal Grandmother Diabetes Maternal Uncle No Known Problems Son No Known Problems Daughter Social History Tobacco Use Smoking status: Never Smokeless tobacco: Never Vaping Use Vaping Use: Never used Substance Use Topics Alcohol use: No Drug use: No Objective Physical Exam Vitals and nursing note reviewed. Constitutional: Appearance: She is obese. Genitourinary: Skin: General: Skin is warm and dry. Capillary Refill: Capillary refill takes less than 2 seconds. Findings: Erythema present. No rash. Neurological: Mental Status: She is alert. ASSESSMENT/PLAN: 1. Boil, buttock - ICD9: 680.5, ICD10: L02.32 - DOXYCYCLINE HYCLATE 100 MG CAPSULE - warm water with epsom salt sitz baths or compresses 2-3 times daily. - area is firm and not amenable to drainage today. - Follow-up with your PCP in 3-5 days for recheck - Discussed red flags and need for immediate medical evaluation if any occur. Go to ER if symptoms worsen or you develop a fever. Letitia Odell APRN.JAISON documented in this encounter[facility]23 Instructions* Patient Instructions* Letitia Odell APRN.CNP - 11/25/2022 2:00 PM EST ASSESSMENT/PLAN: 1. Boil, buttock - ICD9: 680.5, ICD10: L02.32 - DOXYCYCLINE HYCLATE 100 MG CAPSULE - warm water with epsom salt sitz baths or compresses 2-3 times daily. - area is firm and not amenable to drainage today. - Follow-up with your PCP in 3-5 days for recheck - Discussed red flags and need for immediate medical evaluation if any occur. Go to ER if symptoms worsen or you develop a fever. Letitia Odell APRN.CNP ABSCESS (BOIL): You have a skin abscess, or boil. Boils usually develop when Staph bacteria get into the small glands or hair follicles in the skin and form a pus pocket. You should not squeeze an abscess or boil todrain it; this can cause the infection to spread to other areas under the skin. Boils are contagious, so you should dispose of soiled bandages carefully and not share your towel or wash cloth with others. Soak the area in warm water for 20-30 minutes 3-4 times daily to help the healing. Oral antibioticsmay be needed if the infection is severe or if it seems to be spreading. Please call your doctor ifyou have increased pain or swelling, chills or fever, red streaks going up the arm or leg, or continued pus drainage after 3-4 days. documented in this encounterMer[facility]09-07-2022 History of Present illness Narrative* Irlanda Hogan APRN.CNP - 07/14/2022 8:14 AM EDT 07/14/2022 Patient presents with: Follow Up: UTI SUBJECTIVE: This is a 42 year old that is here today for Above Complaints.. Completed course of cipro last night. Still with some burning with urination and a pinch of pain.Has some urgency and occasional back pain but feels like it is getting better. Denies fevers, chills, abdominal pain, nausea, vomiting, urinary frequency or hematuria 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 ALLERGIES Metformin and Trulicity [Dulaglutide] MEDICATIONS Current Outpatient Medications Medication Sig ciprofloxacin HCl (CIPRO) 500 mg tablet Take 1 tablet by mouth twice daily for 7 days. insulin lispro (HUMALOG KWIKPEN) 100 unit/mL Inject 26 Units subcutaneously three times daily before meals. insulin glargine (LANTUS SOLOSTAR U-100 INSULIN) 100 unit/mL (3 mL) Inject 46 units subcutaneously twice a day oxyCODONE-acetaminophen (PERCOCET) 5-325 mg tablet Take 1 tablet by mouth every 6 hours as needed for pain. promethazine (PHENERGAN) 25 mg tablet Take 1 tablet by mouth every 6 hours as needed for nausea/vomiting. rOPINIRole (REQUIP) 1 mg tablet Take 1 tablet by mouth daily at bedtime. blood sugar diagnostic ([employer] - InformáticaUCH VERIO TEST STRIPS) test strip Test blood sugar(s) 4 times daily. Dx: Type 2 DM - Controlled E11.9 Insulin: Yes atorvastatin (LIPITOR) 10 mg tablet Take 1 tablet by mouth daily at bedtime. For cholesterol. lisinopril (ZESTRIL, PRINIVIL) 5 mg tablet Take 1 tablet by mouth once daily. insulin lispro (HUMALOG KWIKPEN INSULIN) 100 unit/mL Inject 26 units subcutaneously with meals. Insulin Olivet, Disposable, (BD ULTRA-FINE VINOD PEN NEEDLE) 32 gauge x 5/32 Use one needle for each dose. 5/day. Lancets lancets Test blood sugar(s) 4 times daily. Dx: Type 2 DM - Controlled E11.9 Insulin: Yes Lancets (ACCU-CHEK SOFTCLIX LANCETS) lancets Test blood sugar(s) 4 times daily and as needed. Dx: 250.02. Insulin: Yes Blood-Glucose Meter (ACCU-CHEK KENNY PLUS METER) misc Test glucose twice daily, 250.02. Insulin yes. VINOD PEN NEEDLE 32 gauge x 5/32 ndle use 1 NEEDLE FOR EACH DOSE, four times a day multivitamin tablet Take 1 tablet by mouth once daily. No current facility-administered medications for this visit. Medications and allergies reviewed by this provider. SOCIAL HISTORY Social History Tobacco Use Smoking status: Never Smokeless tobacco: Never Vaping Use Vaping Use: Never used Substance Use Topics Alcohol use: No Drug use: No REVIEW OF SYSTEMS All other reviewed and negative other than HPI. OBJECTIVE: BP 122/84 Pulse 95 Temp 36.6 C (97.8 F) Wt 111.4 kg (245 lb 9.6 oz) LMP 05/26/2022 SpO2 100% BMI 39.34 kg/m . Vital signs reviewed by this provider. APPEARANCE Well appearing, alert, in no acute distress, well-hydrated, well nourished. EYES PERRLA, conjunctiva and sclera normal. HEART RRR with normal S1 and S2, no murmurs, no gallops, no JVD appreciated LUNG clear to auscultation ABDOMEN no tenderness to palpation BACK: No CVA tenderness SKIN Skin color, texture, turgor normal, no suspicious rashes or lesions to exposed skin Component Latest Ref Rng & Units 07/14/2022 GLUCOSE UA (POCT) Negative mg/dL 500 (A) BILIRUBIN UA (POCT) Negative Negative KETONE UA (POCT) Negative mg/dL Negative SPECIFIC GRAVITY UA (POCT) 1.005 - 1.030 1.020 HEMOGLOBIN/BLOOD UA (POCT) Negative Negative PH UA (POCT) 4.5 - 8.0 6.0 PROTEIN UA (POCT) Negative mg/dL Negative UROBILINOGEN UA (POCT) Normal E.U./dL 0.2 NITRITE UA (POCT) Negative Negative LEUKOCYTES UA (POCT) Negative Trace (A) COLOR UA (POCT) Yellow CLARITY UA (POCT) Cloudy COVID-19 VACCINE(1) Never done PAP TESTING Never done HPV TESTING Never done DIABETIC FOOT EXAM due on 06/05/2022 INFLUENZA(1) due on 07/08/2022 HEPATITIS B(1 of 3 - 3-dose series) due on 04/22/2023 PNEUMOCOCCAL(2 - PCV) due on 04/22/2023 HBA1C due on 07/22/2022 MAMMOGRAM due on 12/11/2022 DILATED RETINAL EXAM due on 12/15/2022 URINE ALBUMIN:CREATININE RATIO due on 04/21/2023 LDL CHOLESTEROL due on 04/21/2023 DEPRESSION SCREENING due on 04/22/2023 ANNUAL PCP TEAM CHRONIC DISEASE VISIT due on 07/14/2023 DTAP,TDAP,TD(2 - Td or Tdap) due on 10/10/2029 HEPATITIS C SCREENING Completed HIV SCREENING Completed ASSESSMENT/PLAN: 1. Recurrent UTI (urinary tract infection) - ICD9: 599.0, ICD10: N39.0 (primary diagnosis) recurrent - improving - no red flag symptoms or exam findings - red flag symptoms discussed, verbalizes understanding - URINALYSIS, DIPSTICK ONLY - follow-up if symptoms persist or new symptoms develop, to ER with red flag symptoms 2. Diabetes mellitus type II (HCC) - ICD9: 250.00, ICD10: E11.9 - needs to make follow-up, obtain A1c prior to appointment - HGB A1C Irlanda Hogan APRN.CNP Prescription instructions reviewed with patient as applicable. Patient advised if symptoms do not improve or if symptoms worsen sooner, to contact their primary care physician. Potential red flag symptoms discussed with the patient. Reviewed appropriate action plan to take if red flag symptoms occur. Patient agreeable to treatment plan. I spent a total of 22 minutes on the date of the service which included preparing to see the patient, [id number] patient care, completing clinical documentation, obtaining and/or reviewing separately obtained history, performing a medically appropriate examination, counseling and educating the pat ient/family/caregiver, and ordering medications, tests, or procedures. documented in this encounterMer[facility]09-02-2022 Miscellaneous Notes* Telephone Encounter - Celeste Villa LPN - 07/09/2022 3:36 PM EDT Phoned patient and updated her with provider's message. Patient voiced understanding. * Telephone Encounter - Irlanda Hogan APRN.CNP - 07/09/2022 1:41 PM EDT Urine culture shows cipro should work for infection. Continue to take and follow-up for recheck next week as schedule. Irlanda Hogan APRN.CNP documented in this encounterMercer [facility]08-31-2022 Miscellaneous Notes* Telephone Encounter - Grace Donald RN - 07/07/2022 1:32 PM EDT Called [facility] Pharmacist and notified of providers message. He voices understanding. Grace Donald RN * Telephone Encounter - Irlanda Hogan APRN.CNP - 07/07/2022 1:11 PM EDT Sorry yes it should say pens, please let them know Irlanda Hogan APRN.CNP * Telephone Encounter - Ava Kevin RN - 07/07/2022 12:58 PM EDT Pharmacist with [facility] calls to verify if Humalog and Lantus orders should say mL or pens. Current order is for each. Verbal order can be phoned to [phone]. Ava Kevin RN documented in this encounterMercer [facility]08-31-2022 History of Present illness Narrative* Irlanda Hogan APRN.CNP - 07/07/2022 11:02 AM EDT 07/07/2022 Patient presents with: Kidney Problem: Recurrent UTI SUBJECTIVE: This is a 42 year old that is here today for Above Complaints.. Treated for acute pyelonephritis on 06/21/2022. Took Cipro as prescribed and was feeling improved. This past Tuesday developed some dysuria and is having some umbilical pain which radiates to her right back. Admits to urinary frequency and nausea. Reports blood sugars higher than normal with this mornings being 302 Denies fevers, chills, vomiting, urinary urgency or hematuria. Would like me to measure seroma status post ventral hernia repair. Thinks it has improved but stillhas some pain when touched Component Latest Ref Rng & Units 07/07/2022 GLUCOSE UA (POCT) Negative mg/dL >=1000 (A) BILIRUBIN UA (POCT) Negative Negative KETONE UA (POCT) Negative mg/dL Negative SPECIFIC GRAVITY UA (POCT) 1.005 - 1.030 1.015 HEMOGLOBIN/BLOOD UA (POCT) Negative Small (A) PH UA (POCT) 4.5 - 8.0 5.5 PROTEIN UA (POCT) Negative mg/dL 30 (A) UROBILINOGEN UA (POCT) Normal E.U./dL 0.2 NITRITE UA (POCT) Negative Positive (A) LEUKOCYTES UA (POCT) Negative Moderate (A) COLOR UA (POCT) Yellow CLARITY UA (POCT) Cloudy 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 ALLERGIES Metformin and Trulicity [Dulaglutide] MEDICATIONS Current Outpatient Medications Medication Sig oxyCODONE-acetaminophen (PERCOCET) 5-325 mg tablet Take 1 tablet by mouth every 6 hours as needed for pain. promethazine (PHENERGAN) 25 mg tablet Take 1 tablet by mouth every 6 hours as needed for nausea/vomiting. rOPINIRole (REQUIP) 1 mg tablet Take 1 tablet by mouth daily at bedtime. blood sugar diagnostic (Zhima TechTOUCH VERIO TEST STRIPS) test strip Test blood sugar(s) 4 times daily. Dx: Type 2 DM - Controlled E11.9 Insulin: Yes atorvastatin (LIPITOR) 10 mg tablet Take 1 tablet by mouth daily at bedtime. For cholesterol. lisinopril (ZESTRIL, PRINIVIL) 5 mg tablet Take 1 tablet by mouth once daily. insulin glargine (LANTUS SOLOSTAR U-100 INSULIN) 100 unit/mL (3 mL) Inject 46 units subcutaneously twice a day insulin lispro (HUMALOG KWIKPEN INSULIN) 100 unit/mL Inject 26 units subcutaneously with meals. Insulin Olivet, Disposable, (BD ULTRA-FINE VINOD PEN NEEDLE) 32 gauge x 5/32 Use one needle for each dose. 5/day. Lancets lancets Test blood sugar(s) 4 times daily. Dx: Type 2 DM - Controlled E11.9 Insulin: Yes Lancets (ACCU-CHEK SOFTCLIX LANCETS) lancets Test blood sugar(s) 4 times daily and as needed. Dx: 250.02. Insulin: Yes Blood-Glucose Meter (ACCU-CHEK KENNY PLUS METER) misc Test glucose twice daily, 250.02. Insulin yes. VINOD PEN NEEDLE 32 gauge x 5/32 ndle use 1 NEEDLE FOR EACH DOSE, four times a day multivitamin tablet Take 1 tablet by mouth once daily. No current facility-administered medications for this visit. Medications and allergies reviewed by this provider. SOCIAL HISTORY Social History Tobacco Use Smoking status: Never Smokeless tobacco: Never Vaping Use Vaping Use: Never used Substance Use Topics Alcohol use: No Drug use: No REVIEW OF SYSTEMS All other reviewed and negative other than HPI. OBJECTIVE: BP 128/76 Pulse 101 Temp 36.4 C (97.5 F) Resp 16 Wt 110.5 kg (243 lb 9.6 oz) LMP 05/26/2022 SpO2 100% BMI 39.02 kg/m . Vital signs reviewed by this provider. APPEARANCE Well appearing, alert, in no acute distress, well-hydrated, well nourished. HEART RRR with normal S1 and S2, no murmurs, no gallops, no JVD appreciated LUNG clear to auscultation ABDOMEN bowel sounds normoactive, no bruits, soft, non-distended without rebound tenderness or guarding. Approximate 8-9 cm subcutaneous seroma palpated to LLQ- some tenderness with palpations BACK: Positive for CVA tenderness to the right SKIN Skin color, texture, turgor normal, no suspicious rashes or lesions to exposed skin COVID-19 VACCINE(1) Never done PAP TESTING Never done HPV TESTING Never done DIABETIC FOOT EXAM due on 06/05/2022 HEPATITIS B(1 of 3 - 3-dose series) due on 04/22/2023 PNEUMOCOCCAL(2 - PCV) due on 04/22/2023 INFLUENZA(1) due on 07/08/2022 HBA1C due on 07/22/2022 MAMMOGRAM due on 12/11/2022 DILATED RETINAL EXAM due on 12/15/2022 URINE ALBUMIN:CREATININE RATIO due on 04/21/2023 LDL CHOLESTEROL due on 04/21/2023 DEPRESSION SCREENING due on 04/22/2023 ANNUAL PCP TEAM CHRONIC DISEASE VISIT due on 07/07/2023 DTAP,TDAP,TD(2 - Td or Tdap) due on 10/10/2029 HEPATITIS C SCREENING Completed HIV SCREENING Completed ASSESSMENT/PLAN: 1. UTI symptoms - ICD9: 788.99, ICD10: R39.9 (primary diagnosis) - possible unresolved pyelonephritis - will repeat cipro course and send urine for culture - no red flag symptoms or exam findings - red flag symptoms for ER evaluation reviewed, patient verbalizes understanding - CIPROFLOXACIN 500 MG TABLET - URINE CULTURE - follow-up in one week, to ER with red flag symptoms 2. Abdominal wall seroma, subsequent encounter - ICD9: V58.89, 998.13, ICD10: S30.1XXD - recommendations as per surgery - follow-up with their office if increasing in size, drains or more painful Irlanda Hogan APRN.CNP Prescription instructions reviewed with patient as applicable. Patient advised if symptoms do not improve or if symptoms worsen sooner, to contact their primary care physician. Potential red flag symptoms discussed with the patient. Reviewed appropriate action plan to take if red flag symptoms occur. Patient agreeable to treatment plan. I spent a total of 30 minutes on the date of the service which included preparing to see the patient, [id number] patient care, completing clinical documentation, obtaining and/or reviewing separately obtained history, performing a medically appropriate examination, counseling and educating the pat ient/family/caregiver, and ordering medications, tests, or procedures. documented in this encounterMercer [facility]08-31-2022 Miscellaneous Notes* Telephone Encounter - Jonathan Kim MA - 07/07/2022 9:28 AM EDT Scheduled with ARMATURE VARNISHER Irlanda Hogan 11 AM. Jonathan Kim MA documented in this encounterMercer [facility]08-18-2022 Miscellaneous Notes* Telephone Encounter - Jean Claude Huitron MD - 06/24/2022 1:39 PM EDT Agree * Telephone Encounter - Michelle Miller LPN - 06/24/2022 1:28 PM EDT Feeling better since switching ATB on Tuesday. Not burning when she urinates but does still hurts inher back a little bit. No fever or chills. Advised her to update office if doesn't continue to improve or symptoms worsen. * Telephone Encounter - Jonathan Kim MA - 06/24/2022 11:31 AM EDT ----- Message from Jean Claude Huitron MD sent at 06/24/2022 10:26 AM EDT ----- Patient's urine is growing enterobacter. This is sensitive to the Cipro we prescribed and I would have her continue this as prescribed. Is she feeling any better since starting this new antibiotic? documented in this encounterMercer [facility]08-02-2022 History of Present illness Narrative* Joann Flower, MEDICAL RECORDS TECHNICIAN-GANDY DANCER - 06/08/2022 11:30 AM EDT Trice Erica Zambrano presents to the clinic 2 weeks following robotic incisional hernia repair with intraperitoneal onlay mesh (IPOM) . Eating a regular diet without difficulty. Bowel movement are Normal. Pain is controlled with current analgesics. Medication(s) being used: acetaminophen.. Physical Exam: BP 139/80 (BP Location: Left arm, BP Position: Sitting) Pulse 86 Temp 98.2 F (36.8 C) Ht 1.727 m (5' 8) Wt 111 kg (244 lb 11.2 oz) SpO2 98% BMI 37.21 kg/m Smoking Status Never Smoker General: alert, cooperative, no distress, appears stated age Abdomen: soft, bowel sounds active, non-tender Incision: healing well, no drainage, no erythema, no hernia, no seroma, no swelling, no dehiscence,incision well approximated Assessment: Doing well postoperatively. Plan: Continue any current medications. Wound care discussed. Pt is to increase activities as tolerated. Recommend maintaining lifting restrictions for an additional 2 weeks. RTC prn GRACIELA Roldan documented [facility] encounter[facility] Nurse Surgical operation note* Sandra Lloyd RN - 05/21/2022 12:10 PM EDT Discharge instructions reviewed with patient, and daughter. Questions answered. Prescription of oxycodone picked up at OP pharmacy by . See AVS & education. 1213 pm Pt discharged to home with . Dc'd with AVS, ice pack and personal belongings. Escorted to vehicle via wc by WINNIE Edwards [facility]07-15-2022 Nurse Note* Sandra Lloyd RN - 05/21/2022 12:10 PM EDT Discharge instructions reviewed with patient, and daughter. Questions answered. Prescription of oxycodone picked up at OP pharmacy by . See AVS & education. 1213 pm Pt discharged to home with . Dc'd with AVS, ice pack and personal belongings. Escorted to vehicle via wc by WINNIE Edwards documented in this encounterOS[facility]-2022 Note* Nursing Notes - Grace Bass RN - 05/21/2022 11:56 AM EDT Verbal sign-out received from Dr. Louise [facility]07-15-2022 Miscellaneous Notes* Nursing Notes - Grace Bass RN - 05/21/2022 11:56 AM EDT Verbal sign-out received from Dr. Louise * Op Note - Roxana Moore MD - 05/21/2022 10:20 AM EDT Images from the original note were not included. OPERATIVE REPORT DATE: 05/21/2022 Surgeon: Roxana Moore MD User Interface Designer: Raisa Laureano MD Pre-operative Diagnosis: incisional hernia, obesity, diabetes Post-operative Diagnosis: Incarcrated incisional hernia, obesity, diabetes Procedure: Robotic incisional hernia repair with intraperitoneal onlay mesh (IPOM) Wound Class: Clean Anesthesia: GETA Blood Loss: Minimal Complications: none immediately apparent Operative Indications: Trice Zambrano is a 41 y.o.-year-old female who with a history of an increasingly symptomatic incisional hernia at a previous colostomy site. Given these symptoms and findings, the patient was taken to the operating room for robotic hernia repair. Details of procedure: The patient was positively identified, was taken to the operating room and placed supine on the operating table. General anesthesia was induced, the patient was carefully positioned with all pressurepoints were meticulously padded. Antibiotics were administered and SCDs were placed for DVT prophylaxis. The abdomen was prepped and draped in the usual sterile surgical fashion. A time-out was performed confirming correct patient and procedure with all team members in agreement. After infiltration of local anesthetic, a Veress entry was performed at riley's point in the left upper quadrant with intraperitoneal positioning confirmed by a saline drop test and the abdomen was inflated to a pressure of 15 mmHg. The Veress was removed and an 8 mm robotic trocar was placed in the right upper quadrant under direct optical view visualization. There was no evidence of any underlying injury from entry into additional 8mm robotic trocars were placed on either side of the camera port under direct visualization and after infiltration of additional local anesthetic. The DA Slim XI robot was then brought onto the field and docked in the standard fashion. At this point I un-scrubbed from the case and moved to the robotic console. Full evaluation of the abdomen revealed there to be an expected hernia defect in the left lower quadrant at the site of the previous ostomy. Using a combination of gentle retraction, electrocautery, and blunt dissection, the incarcerated hernia contents were reduced out of the sac and back down into the abdomen. These contents contained omentum and preperitoneal fat, but no evidence of intestinalincarceration. There was no injury to vital structures during reduction of the hernia contents, andhemostasis was excellent throughout. With the hernia contents completely reduced, the fascial edgesof the hernia defect were cleared up with electrocautery and the sac fully excised, removed and disc arded. Pneumoperitoneum pressure was reduced and a #1 stratafix suture was utilized to close the fascia of the hernia defect primarily, which measured 8x4cm. This came together well without undue tension. Following primary closure of the hernia defect, a 15 x 10 cm piece of ventral light ST mesh was brought into the abdomen and brought to the anterior abdominal wall. The mesh was then secured around its periphery circumferentially using a 2-0 absorbable barbed suture. This resulted in excellent apposition of the mesh to the anterior abdominal wall and good coverage of the defect on all sides. One final examination of the abdominal cavity revealed no other concerning findings and the instruments were removed and the robot undocked. Pneumoperitoneum was evacuated and the ports were removed.A 4-0 Monocryl subcuticular suture was used to close the skin. Final dressing of Dermabond was placed. The patient was then extubated per anesthesia protocol and transferred to the postoperative bed in stable condition. There were no complications immediately apparent. All sponge, needle, and instrument counts at the end case were correct. I was personally scrubbed and participated in the entirety of the case including all siddiqui portions of the procedure. Roxana Moore MD flask carrier Division of General and Gastrointestinal [facility] * Brief Op Note - Raisa Laureano MD - 05/21/2022 10:13 AM EDT Trice Zambrano ([id number]) PRE OPERATIVE DIAGNOSIS Incisional hernia [K43.2] POST OPERATIVE DIAGNOSIS Post-Op Diagnosis Codes: * Incisional hernia [K43.2] PROCEDURE PERFORMED Procedure(s) (LRB): REPAIR HERNIA VENTRAL ROBOTIC W/ MESH (Left) PRIMARY CLOSURE Yes INTRAOPERATIVE FINDINGS Incisional hernia sac excised. Successful intraperitoneal mesh placement SURGEON Surgeon(s) and Role: * Roxana Moore MD - Primary ANESTHESIOLOGIST Anesthesiologist: Steve Louise MD Blasting Cap Assembler: NAVIN Frias SURGICAL STAFF Blind Teacher: Leila Briseno RN Relief Scrub: David García RN Scrub Person: Grace Perea COMPLICATIONS None ESTIMATED BLOOD LOSS 10 ml SPECIMENS No specimen sent * No specimens in log * Raisa Laureano MD May 21, 2022 10:13 AM * Nursing Notes - Karissa Almanzar RN - 05/21/2022 7:28 AM EDT ISBAR handoff procedure completed with anesthesia staff and surgery RN. Patient stable, no distress, transferred to surgery with OR personnel. documented in this [facility]07-15-2022 Note* Op Note - Roxana Moore MD - 05/21/2022 10:20 AM EDT Images from the original note were not included. OPERATIVE REPORT DATE: 05/21/2022 Surgeon: Roxana Moore MD User Interface Designer: Raisa Laureano MD Pre-operative Diagnosis: incisional hernia, obesity, diabetes Post-operative Diagnosis: Incarcrated incisional hernia, obesity, diabetes Procedure: Robotic incisional hernia repair with intraperitoneal onlay mesh (IPOM) Wound Class: Clean Anesthesia: GETA Blood Loss: Minimal Complications: none immediately apparent Operative Indications: Trice Zambrano is a 41 y.o.-year-old female who with a history of an increasingly symptomatic incisional hernia at a previous colostomy site. Given these symptoms and findings, the patient was taken to the operating room for robotic hernia repair. Details of procedure: The patient was positively identified, was taken to the operating room and placed supine on the operating table. General anesthesia was induced, the patient was carefully positioned with all pressurepoints were meticulously padded. Antibiotics were administered and SCDs were placed for DVT prophylaxis. The abdomen was prepped and draped in the usual sterile surgical fashion. A time-out was performed confirming correct patient and procedure with all team members in agreement. After infiltration of local anesthetic, a Veress entry was performed at riley's point in the left upper quadrant with intraperitoneal positioning confirmed by a saline drop test and the abdomen was inflated to a pressure of 15 mmHg. The Veress was removed and an 8 mm robotic trocar was placed in the right upper quadrant under direct optical view visualization. There was no evidence of any underlying injury from entry into additional 8mm robotic trocars were placed on either side of the camera port under direct visualization and after infiltration of additional local anesthetic. The Celeno XI robot was then brought onto the field and docked in the standard fashion. At this point I un-scrubbed from the case and moved to the robotic console. Full evaluation of the abdomen revealed there to be an expected hernia defect in the left lower quadrant at the site of the previous ostomy. Using a combination of gentle retraction, electrocautery, and blunt dissection, the incarcerated hernia contents were reduced out of the sac and back down into the abdomen. These contents contained omentum and preperitoneal fat, but no evidence of intestinalincarceration. There was no injury to vital structures during reduction of the hernia contents, andhemostasis was excellent throughout. With the hernia contents completely reduced, the fascial edgesof the hernia defect were cleared up with electrocautery and the sac fully excised, removed and disc arded. Pneumoperitoneum pressure was reduced and a #1 stratafix suture was utilized to close the fascia of the hernia defect primarily, which measured 8x4cm. This came together well without undue tension. Following primary closure of the hernia defect, a 15 x 10 cm piece of ventral light ST mesh was brought into the abdomen and brought to the anterior abdominal wall. The mesh was then secured around its periphery circumferentially using a 2-0 absorbable barbed suture. This resulted in excellent apposition of the mesh to the anterior abdominal wall and good coverage of the defect on all sides. One final examination of the abdominal cavity revealed no other concerning findings and the instruments were removed and the robot undocked. Pneumoperitoneum was evacuated and the ports were removed.A 4-0 Monocryl subcuticular suture was used to close the skin. Final dressing of Dermabond was placed. The patient was then extubated per anesthesia protocol and transferred to the postoperative bed in stable condition. There were no complications immediately apparent. All sponge, needle, and instrument counts at the end case were correct. I was personally scrubbed and participated in the entirety of the case including all siddiqui portions of the procedure. Roxana Moore MD flask carrier Division of General and Gastrointestinal Surgery [facility]07-15-2022 Hospital Discharge instructions* Discharge Instructions* Raisa Laureano MD - 05/21/2022 10:17 AM EDT Images from the original note were not included. Home Care After Hernia Repair Activity Limit activity for the first 24 hours, then you may return to normal daily activities. Returning tonormal daily activities as soon as you can following surgery will enhance recovery time. No heavy lifting pushing or pulling, anything heavier than 10 pounds (gallon of milk weighs approx.8.8 pounds) for 4-6 weeks from surgery date. Do not mow the lawn, use a vacuum lining cleaner, or do any other strenuous activities without first consulting your surgical team. Climb stairs slowly and watch your step. Walk as often as you feel able to increase strength and endurance. No driving or operating heavy machinery within 24 hours of taking narcotic pain medication. Abdominal Core Rehab if referral placed for you. If you think you could benefit from rehab please talk with your surgeon. For additional information about your recovery and activities you can do to help you recover, please download the [facility] ([facility]) leola to your phone and follow the instructions. The leola can be found by clicking one of the links below, by entering '[facility]' in your Appstore, or by opening your camera leola and following one of the links in the QR codes below: APPLE Click here to install Apple [facility] leola ANDROID Click here to install Android [facility] leola Diet Drink plenty of fluids and eat a light meal on the night of surgery. Some patients may find their appetite is poor for a week or two after surgery. This is a normal result of the stress of surgery-your appetite will return in time. There are no specific diet restrictions after surgery. Dressings and Wound Care Keep your wound or incision site clean and dry. You may have different types of dressings covering your incisions depending on your operation and your surgeon: Dermabond/Durabond (skin glue): This will usually remain in place for 10-14 days, then naturally fall off your skin. You may take a shower 24 hrs after surgery, carefully wash, not scrub the incisionsite with a mild non-scented soap. Pat dry with a soft towel. Do not pick or peel skin glue off. You can shower and let the water fall on the dressings above. Do not soak or submerge your incision(s) in a bath tub, hot tub, or swimming pool, until your doctor says it is ok to do so or the incision(s) have completely healed, usually about 2-4 weeks. Do not use creams, powder, salves or balms on your incision(s). What to Expect After Surgery Moderate discomfort controlled with medications Minimal drainage from incision You may feel pain in one or both shoulders. This pain comes from the gas still left in your belly after the surgery, if you had laparoscopic surgery (several small incisions). The pain should ease over several days to a week. Ambulation will help with this pain. Belly swelling Feeling fatigue and weak Constipation after surgery is common. Drink plenty fluids and eat a high fiber diet. Swelling - In some patients might feel that their hernia has returned after surgery-DO NOT Worry this is normal. Swelling may be due to the development of a seroma. Seroma is fluid that has built up where the hernia was repaired this is a normal result after surgery and it will slowly reabsorb backinto your body over the next several weeks. (MALE PATIENTS ONLY)-johnathon following inguinal hernia repair, it is expected that your scrotum may be slightly swollen or tender. Along with oral NSAIDS medications you can apply ice packs, wear compression shorts, and/or elevate scrotum using a rolled up towel. Also, a bladder catheter may have been placed during your surgery. Because of this, it may hurt to urinate for a couple of days or you may pass some blood clots. These issues are expected and will go away after a few days. Please notify surgeon or report to Emergency Dept. if you are unable to urinate or your symptoms worsen. Pain Control: Prescribed Non-Narcotic Pain Medication The vast majority of patients will just need Tylenol and Ibuprofen after the operation. You will begiven one prescription will be for a 'rescue' prescription of an oral narcotic (oxycodone). You mayfill this if needed. You will alternate taking the ibuprofen (600mg) every 6 hours and also the acetaminophen (650mg) every 6 hours so that you are taking one of those medications every 3 hours. For example: 0800 - take ibuprofen 600mg 1100 - take acetaminophen 650mg 1400 - take ibuprofen 600mg 1700 - take acetaminophen 650mg Etc Continue taking this alternating pattern of ibuprofen and acetaminophen for 3 days If you cannot take one or the other of these medications, just take the one you can every 6 hours. If you are comfortable at night, you don't have to wake up and take a medication. If you are still uncomfortable after taking either ibuprofen or acetaminophen, try gentle stretching exercise and ice packs (a bag of frozen vegetables works great). If you are still uncomfortable, you may fill the narcotic prescription of Oxycodone and take as directed. Once you have completed these prescriptions, your pain level should be low enough to stop taking medications altogether or just use an over the counter medication (ibuprofen or acetaminophen) as needed. Pain Control: Over the Counter Medications to take as needed: Colace/Docusate: May be prescribed by your surgeon to prevent constipation caused by the combination of narcotics, effects of anesthesia, and decreased ambulation. Hold for loose stools or diarrhea. Take 100 mg 1-2 times a day starting tonight. Fiber: High fiber foods, extra liquids (water 9-13 cups/day) can also assist with constipation. Examples of high fiber foods are fruit, bran. Prune juice and water are also good liquids to drink. Milk of Magnesia/Miralax: If constipated despite take the over the counter stool softeners, you maytake Milk of Magnesia or Miralax as directed on bottle to assist with constipation. Pepcid/Famotidine: May be prescribed while taking naproxen (Aleve) or other NSAIDs such as ibuprofen (Motrin/Advil) to prevent stomach upset or Acid-reflux symptoms. Take 1 tablet 1-2 times a day. Constipation: The first bowel movement may occur anywhere between 1-5 days after surgery. As longas you are not nauseated or not having significant abdominal pain this variation is acceptable. Narcotic pain medications can cause constipation increasing discomfort; early discontinuation will assist with bowel management.If constipated despite taking stool softeners, you may take Milk of Magnesia or Miralax as directed on the bottle. Home medications: You may restart your home medications as directed by your respective Primary Care Physician or Surgeon. When to notify your Doctor or Healthcare Team: Sign of Wound Infection Fever over 100 degrees. Wound becomes extremely swollen, shows red streaks, warm to the touch, and/or drainage from the incision site or foul-smelling drainage. Wound edges separate or opens up Bleeding or bruising If you have bleeding, apply pressure to the site and hold the pressure firmly for 5 minutes. If the bleeding continues, apply pressure again and call 911. If the bleeding stopped, call your doctor to report it. Call your doctor or nurse if you have increased bleeding from your site and increased bruising or alump forms or gets larger under your skin at the site. Unrelieved Pain Call your doctor or nurse if your pain gets worse or is not eased 1 hour after taking your pain medicine, or if it is severe and uncontrolled. Nausea and Vomiting Call your doctor or nurse if you have nausea and vomiting that continues more than 24 hours, will not let you keep medicine down and will not let you keep fluids down Fever, Flu-like symptoms Fever over 100 degrees and/or chills Gastrointestinal Bleeding Symptoms Black tarry bowel movements. This can be normal after surgery onthe stomach, but should resolve in a day or two. Call 911 if you suddenly have signs of blood loss such as: Vomiting blood Fast heart rate Feeling faint, sweaty, or blacking out Passing bright red blood from your rectum Blood Clot Symptoms Tender, swollen or reddened areas in your calf muscle or thighs. Numbness or tingling in your lower leg or calf, or at the top of your leg or groin Skin on your leg looks pale or blue or feels cold to touch Chest pain or have trouble breathing, lightheadedness, fast heart rate Sudden Onset of Symptoms Call 911 if you suddenly have: Leg weakness and spasm Loss of bladder or bowel function Seizure Confusion, severe headache, dizziness or feeling unsteady, problems talking, difficulty swallowing,and/or numbness or muscle weakness as these could be signs of a stroke. Follow up Appointment Your follow up appointment should be scheduled 2-3 weeks after your surgery date. If you have not previously scheduled for a follow-up visit you can be scheduled by contacting [phone]. Questions/Concerns/Contacts During normal business hours 8am-4pm: Call [phone]. After 4pm weekdays and on weekends: Call the [phone] for the on-call General Surgery Resident. A good option for most issues (especially after surgery) is to be seen at [facility] in [place] at [address] (1st floor, [address]), [place] [address]. This facilityis open seven days a week from 10am-9:30pm. Call [phone] for additional information. If you are unable to reach your doctor and it is a medical emergency, dial 911 or report to the nearest Emergency Department for evaluation. [facility] General Surgery [address] [facility] [address] [place], [place] [id number] [facility] General Surgery 11th Floor [address] [id number] [facility] Surgery [address] [place] [address] [facility]* Brief Op Note - Raisa Laureano MD - 05/21/2022 10:13 AM EDT Trice Zambrano ([id number]) PRE OPERATIVE DIAGNOSIS Incisional hernia [K43.2] POST OPERATIVE DIAGNOSIS Post-Op Diagnosis Codes: * Incisional hernia [K43.2] PROCEDURE PERFORMED Procedure(s) (LRB): REPAIR HERNIA VENTRAL ROBOTIC W/ MESH (Left) PRIMARY CLOSURE Yes INTRAOPERATIVE FINDINGS Incisional hernia sac excised. Successful intraperitoneal mesh placement SURGEON Surgeon(s) and Role: * Roxana Moore MD - Primary ANESTHESIOLOGIST Anesthesiologist: Steve Louise MD Blasting Cap Assembler: NAVIN Frias SURGICAL STAFF Blind Teacher: Leila Briseno RN Relief Scrub: David García RN Scrub Person: Grace Perea COMPLICATIONS None ESTIMATED BLOOD LOSS 10 ml SPECIMENS No specimen sent * No specimens in log * Raisa Laureano MD May 21, 2022 10:13 AM [facility]07-15-2022 Note* Nursing Notes - Karissa Almanzar RN - 05/21/2022 7:28 AM EDT ISBAR handoff procedure completed with anesthesia staff and surgery RN. Patient stable, no distress, transferred to surgery with OR personnel. [facility]07-15-2022 History and physical note* Roxana Moore MD - 05/21/2022 7:14 AM EDT Images from the original note were not included. We have discussed with the patient in detail the increaed risk with her recently elevated A1c. However, she has now been on a more aggressive insulin regimen for several weeks and has shown good compliance with significant improvement in her CBGs and feels that the hernia is bothersome enough that she wants to proceed with surgery despite the somewhat increased risk of recurrence. DATE: 05/21/2022 AUTHOR: Roxana Moore MD REASON FOR VISIT: Incisional Hernia HISTORY OF PRESENT ILLNESS: Trice Zambrano is a 41 y.o. female referred for evaluation of a bothersome hernia. The patient was hospitalized with a perineal wound and underwent diverting loop ileostomy in the past. This fortunately allowed her to recover completely and she has since undergone loop ileostomy closure. She is now back to her baseline of health with normal bowel function and overall great functional status. However, she has unfortunately developed a hernia at the previous ostomy site. A CT scan was obtained which demonstrates an approximately 5 cm defect with retraction of the rectus muscle laterally. She states that the hernia is bothersome to her and frequently causes pain and discomfort particularly whenshe is trying to be active. She also noticed that a bump seconds counters a fair amount. She is very concerned that she could have an episode of incarceration, though fortunately has not had any symptoms to suggest this yet. She would like to have the hernia repaired. I have personally reviewed all relevant imaging and reports including her CT scan. She is otherwiserelatively healthy though is obese with a BMI of 35 and is diabetic, though her blood sugars are well controlled and her last A1c was 7. She is a nonsmoker. She has had a previous lap katherine and hysterectomy in addition to her ostomy operations. REVIEW OF SYSTEMS: Constitutional: No abnormal weight gain or loss Integumentary: No rashes or itching HEENT: No headache, eye irritation or vision changes Respiratory: No shortness of breath or wheezing Cardiac: No chest pain Gastrointestinal: No changes in bowel habits Urinary: No dysuria or frequency Vascular: No active clots Heme: Denies easy bruising or spontaneous bleeding Musculoskeletal: No new joint or muscle pain Neurologic: No headaches or sensory changes Endocrine: No heat/cold intolerance Psychiatric: No major anxiety or depression PAST MEDICAL HISTORY: Past Medical History: Diagnosis Date Diabetes mellitus Essential hypertension, benign Hyperlipidemia PAST SURGICAL HISTORY: Past Surgical History: Procedure Laterality Date COLONOSCOPY DIAGNOSTIC N/A 03/15/2022 Laterality: N/A; Surgeon: Kecia Carvalho MD; Location: [facility] ENDOSCOPY REVISION COLOSTOMY W/ REPAIR PARACOLOSTOMY HERNIA OPEN N/A 09/09/2021 Laterality: N/A; Surgeon: Kecia Carvalho MD; Location: [facility] MAIN OR COLONOSCOPY DIAGNOSTIC N/A 08/17/2021 Laterality: N/A; Surgeon: Kecia Carvalho MD; Location: [facility] ENDOSCOPY COLOSTOMY LAPAROSCOPIC N/A 05/13/2021 Laterality: N/A; Surgeon: Trace Bailey MD; Location: [facility] MAIN OR DEBRIDEMENT SQ TISSUE Midline 05/06/2021 Laterality: Midline; Surgeon: Jean Carlos Dumont MD; Location: [facility] MAIN OR HOME MEDICATIONS: (Not in an outpatient encounter) ALLERGIES: Allergies Allergen Reactions Dulaglutide Nausea and Vomiting Nausea/vomiting, diarrhea and epigastric pain. Metformin Diarrhea and Nausea and Vomiting Occurred while on XR formulation SOCIAL HISTORY: Social History Socioeconomic History Marital status: Spouse name: Not on file Number of children: Not on file Years of education: Not on file Highest education level: Not on file Occupational History Not on file Tobacco Use Smoking status: Never Smoker Smokeless tobacco: Never Used Vaping Use Vaping Use: Never used Substance and Sexual Activity Alcohol use: Never Drug use: Never Sexual activity: Not on file Other Topics Concern Not on file Social History Narrative Not on file Social Determinants of Health Financial Resource Strain: Not on file Food Insecurity: Not on file Transportation Needs: Not on file Physical Activity: Not on file Stress: Not on file Social Connections: Not on file Intimate Partner Violence: Not on file Housing Stability: Not on file FAMILY HISTORY: Family History Problem Relation Age of Onset Colorectal Cancer Neg Hx PHYSICAL EXAM: Vitals: BP 189/85 (BP Location: Left arm, BP Position: Lying) Pulse 89 Temp 97.8 F (36.6 C) (Infrared) Resp 20 SpO2 100% Smoking Status Never Smoker There is no height or weight on file to calculate BMI. General: Alert, oriented to time, place and event, well nourished, NAD Lymph: No lymphadenopathy Respiratory: Unlabored respirations Cardiac: Regular rate and rhythm, strong peripheral pulses GI: Abdomen soft, non-tender, non distended, at the ostomy site in the left lower quadrant, it is difficult to fully appreciate the hernia defect due to her body habitus but there is not an obviouslyreducible mass. Other laparoscopy incisions are well healed. Extremities: Warm and well perfused, no peripheral edema Skin: No rashes Phychiatric: appropriate mood and affect STUDIES: IMPRESSION: Herniation of omental fat through prior colostomy defect with small overlying irregular fluid collection and adjacent granulation tissue. No herniated Bowel. ASSESSMENT AND PLAN: Trice Zambrano is a 41 y.o. female with a bothersome incisional hernia at a previous ostomy site. Wespent a great deal of time in clinic today discussing the natural history of the patients conditionand reviewed the illustrated KRAMES booklet together. As the hernia is quite bothersome to her and she is otherwise a good operative candidate, it is reasonable to proceed with repair. The Proposed procedure was discussed in detail with the patient including additional things to workon pre-operatively (including the importance of weight loss both pre and postoperatively to reduce the risk of hernia recurrence), details of the operation itself, and the expected post-operative recovery, including 1 month of lifting restrictions. We reviewed the risks of the procedure including bleeding, infection and damage to local structures as well as the small risk of more serious complications like stroke or . PARQ was completed and all questions were answered to the patient's satisfaction. -- Proceed with robotic ventral hernia repair with mesh Roxana Moore MD flask carrier Division of General and Gastrointestinal Surgery [facility] Work Phone: [phone]) 920-310707-15-2022 History and physical note* Roxana Moore MD - 05/21/2022 7:14 AM EDT Images from the original note were not included. We have discussed with the patient in detail the increaed risk with her recently elevated A1c. However, she has now been on a more aggressive insulin regimen for several weeks and has shown good compliance with significant improvement in her CBGs and feels that the hernia is bothersome enough that she wants to proceed with surgery despite the somewhat increased risk of recurrence. DATE: 05/21/2022 AUTHOR: Roxana Moore MD REASON FOR VISIT: Incisional Hernia HISTORY OF PRESENT ILLNESS: Trice Zambrano is a 41 y.o. female referred for evaluation of a bothersome hernia. The patient was hospitalized with a perineal wound and underwent diverting loop ileostomy in the past. This fortunately allowed her to recover completely and she has since undergone loop ileostomy closure. She is now back to her baseline of health with normal bowel function and overall great functional status. However, she has unfortunately developed a hernia at the previous ostomy site. A CT scan was obtained which demonstrates an approximately 5 cm defect with retraction of the rectus muscle laterally. She states that the hernia is bothersome to her and frequently causes pain and discomfort particularly whenshe is trying to be active. She also noticed that a bump seconds counters a fair amount. She is very concerned that she could have an episode of incarceration, though fortunately has not had any symptoms to suggest this yet. She would like to have the hernia repaired. I have personally reviewed all relevant imaging and reports including her CT scan. She is otherwiserelatively healthy though is obese with a BMI of 35 and is diabetic, though her blood sugars are well controlled and her last A1c was 7. She is a nonsmoker. She has had a previous lap katherine and hysterectomy in addition to her ostomy operations. REVIEW OF SYSTEMS: Constitutional: No abnormal weight gain or loss Integumentary: No rashes or itching HEENT: No headache, eye irritation or vision changes Respiratory: No shortness of breath or wheezing Cardiac: No chest pain Gastrointestinal: No changes in bowel habits Urinary: No dysuria or frequency Vascular: No active clots Heme: Denies easy bruising or spontaneous bleeding Musculoskeletal: No new joint or muscle pain Neurologic: No headaches or sensory changes Endocrine: No heat/cold intolerance Psychiatric: No major anxiety or depression PAST MEDICAL HISTORY: Past Medical History: Diagnosis Date Diabetes mellitus Essential hypertension, benign Hyperlipidemia PAST SURGICAL HISTORY: Past Surgical History: Procedure Laterality Date COLONOSCOPY DIAGNOSTIC N/A 03/15/2022 Laterality: N/A; Surgeon: Kecia Carvalho MD; Location: [facility] ENDOSCOPY REVISION COLOSTOMY W/ REPAIR PARACOLOSTOMY HERNIA OPEN N/A 09/09/2021 Laterality: N/A; Surgeon: Kecia Carvalho MD; [facility] COLONOSCOPY DIAGNOSTIC N/A 08/17/2021 Laterality: N/A; Surgeon: Kecia Carvalho MD; Location: [facility] E ENDOSCOPY COLOSTOMY LAPAROSCOPIC N/A 05/13/2021 Laterality: N/A; Surgeon: Trace Bailey MD; Location: [facility] MAIN OR DEBRIDEMENT SQ TISSUE Midline 05/06/2021 Laterality: Midline; Surgeon: Jean Carlos Dumont MD; Location: [facility] MAIN OR HOME MEDICATIONS: (Not in an outpatient encounter) ALLERGIES: Allergies Allergen Reactions Dulaglutide Nausea and Vomiting Nausea/vomiting, diarrhea and epigastric pain. Metformin Diarrhea and Nausea and Vomiting Occurred while on XR formulation SOCIAL HISTORY: Social History Socioeconomic History Marital status: Spouse name: Not on file Number of children: Not on file Years of education: Not on file Highest education level: Not on file Occupational History Not on file Tobacco Use Smoking status: Never Smoker Smokeless tobacco: Never Used Vaping Use Vaping Use: Never used Substance and Sexual Activity Alcohol use: Never Drug use: Never Sexual activity: Not on file Other Topics Concern Not on file Social History Narrative Not on file Social Determinants of Health Financial Resource Strain: Not on file Food Insecurity: Not on file Transportation Needs: Not on file Physical Activity: Not on file Stress: Not on file Social Connections: Not on file Intimate Partner Violence: Not on file Housing Stability: Not on file FAMILY HISTORY: Family History Problem Relation Age of Onset Colorectal Cancer Neg Hx PHYSICAL EXAM: Vitals: BP 189/85 (BP Location: Left arm, BP Position: Lying) Pulse 89 Temp 97.8 F (36.6 C) (Infrared) Resp 20 SpO2 100% Smoking Status Never Smoker There is no height or weight on file to calculate BMI. General: Alert, oriented to time, place and event, well nourished, NAD Lymph: No lymphadenopathy Respiratory: Unlabored respirations Cardiac: Regular rate and rhythm, strong peripheral pulses GI: Abdomen soft, non-tender, non distended, at the ostomy site in the left lower quadrant, it is difficult to fully appreciate the hernia defect due to her body habitus but there is not an obviouslyreducible mass. Other laparoscopy incisions are well healed. Extremities: Warm and well perfused, no peripheral edema Skin: No rashes Phychiatric: appropriate mood and affect STUDIES: IMPRESSION: Herniation of omental fat through prior colostomy defect with small overlying irregular fluid collection and adjacent granulation tissue. No herniated Bowel. ASSESSMENT AND PLAN: Trice Zambrano is a 41 y.o. female with a bothersome incisional hernia at a previous ostomy site. Wespent a great deal of time in clinic today discussing the natural history of the patients conditionand reviewed the illustrated KRAMES booklet together. As the hernia is quite bothersome to her and she is otherwise a good operative candidate, it is reasonable to proceed with repair. The Proposed procedure was discussed in detail with the patient including additional things to workon pre-operatively (including the importance of weight loss both pre and postoperatively to reduce the risk of hernia recurrence), details of the operation itself, and the expected post-operative recovery, including 1 month of lifting restrictions. We reviewed the risks of the procedure including bleeding, infection and damage to local structures as well as the small risk of more serious complications like stroke or . PARQ was completed and all questions were answered to the patient's satisfaction. -- Proceed with robotic ventral hernia repair with mesh Roxana Moore MD flask carrier Division of General and Gastrointestinal Surgery [place] [facility] documented in this [facility] Miscellaneous Notes* Telephone Encounter - Chantel Vences Ma - 05/14/2022 10:04 AM EDT Pt notified of results via [employer]. Chantel Vences Ma * Telephone Encounter - Celeste Villa LPN - 05/13/2022 4:47 PM EDT Phoned patient and VM left for patient to return call and request to speak to a nurse for update onresults/recommendations. * Telephone Encounter - Celeste Villa LPN - 05/13/2022 4:46 PM EDT ----- Message from Jean Claude Huitron MD sent at 05/13/2022 4:41 PM EDT ----- MRI of the liver shows no masses. Does note some fatty liver disease which is more prominent in some areas. Recommend low carb diet and regular exercise to promote weight loss and help improve fatty liver disease. documented in this encounterMer[facility]07-[facility] History of Present illness Narrative* RT Conner(R) - 05/07/2022 3:00 PM EDT Radiology Service Progress Note DATE OF SERVICE: May 07, 2022 TIME: 3:40 PM PATIENT IDENTITY VERIFICATION COMPLETED USING TWO (2) STANDARD IDENTIFIERS: Name and Date of confirmed by patient verbally. FALL SCREENING: Has the patient had 2 falls in the last year or 1 fall with injury or currently using an Ambulatory Assistive Device (Walker, Cane, Wheelchair, Crutches, etc.)? No PATIENT GENDER DATA: Female. status: : No status: NO. PATIENT RELEVANT IMPLANT DATA REVIEWED: Yes ALLERGIES: Reviewed and unchanged CONTRAST ALLERGY: NO. EXAM: MRI - CONTRAST TYPE: GROUP II PERIPHERAL IV DATA: Ambulatory: A peripheral IV was started in the Left antecubital site with a Angio cath: 22 gauge. RADIOLOGY DEPARTMENT: MR; Exam(s) Completed: Body: Liver (routine) SIGNATURE: RT Conner(R) PATIENT NAME: Trice Zambrano DATE: May 07, 2022 TIME: 3:40 PM documented in this encounterMercer [facility]06-16-2022 History of Present illness Narrative* Jean Claude Huitron MD - 04/22/2022 1:29 PM EDT Chief Complaint Patient presents with: Physical HPI Trice Zambrano is a 41 year old female who presents here today for annual physical. Last OV for DM check up 08/27. DIABETES MELLITUS: Ms. Zambrano was last seen 8 months ago. Patient states that she has struggled to keep her sugars under control since her loop ileostomy. Since our last visit she denies excessive thirst or increased frequency of urination, new or unusual visual symptoms and low sugar/hypoglycemic reactions. Admits to worsening neuropathy. Follows a diabetic diet most of the time. She is compliant with medication(s) and is tolerating med(s) without any side effects. She reports checking her glucose on a 2-3 times per week schedule with sugars in the 200-300 range typically. Patient's last HgA1C was Hemoglobin A1C (%) Date Value 04/21/2022 9.7 07/15/2021 6.9 06/01/2021 7.5 ) Last Ophthalmology exam was within the past 6 months-No retionopathy on exam in December per patient. Madeline william for exam. Last Podiatry exam was within the past 12 months Patient has appointment scheduled with general surgery for ventral hernia repair on May 21. Ventral hernia 2/2 ileostomy closure. Has been having quite a bit of pain with hernia contributing to her high sugars. Noted new 2 cm hypodense liver lesion on CT abd/pel without contrast. Recommending MRI for further evaluation. RLS: controlled on Requip. Patient states that her last pap smear was about 2 years ago and reports that HPV and pap were negative. 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 Up to date on COVID vaccine. Will bring in her card to update. Would like to postpone prevnar 20 tonext visit. Past medical history, appointments, medications, allergies reviewed. Previous Medical History PAST MEDICAL HISTORY Diagnosis Date Cellulitis and abscess of buttock 04/[address] (HCC) Reversed Diabetes mellitus type II (HCC) Gestational diabetes Hyperlipidemia Neuropathy Obesity (BMI 30-39.9) RLS (restless legs syndrome) Septicemia (HCC) 04/2021 buttock abscess Ventral hernia Wound of left buttock Required loop ileostomy to fully heal Previous Surgical History PAST SURGICAL HISTORY Procedure Laterality Date ANESTH, SECTION x1 INCISION & DRAINAGE ABSCESS COMPLICATED/MULTIPLE 04/25/2021 buttock abscess drainage LAPAROSCOPY SURG CHOLECYSTECTOMY 12/30/2015 Family History FAMILY HISTORY Problem Relation Age of Onset Heart Mother Drug abuse Mother Stroke Father Hypertension Maternal Grandmother other (scleroderma) Paternal Grandmother Diabetes Maternal Uncle No Known Problems Son No Known Problems Daughter Patient Allergies ALLERGIES Allergen Reactions Metformin Diarrhea Occurred while on XR formulation Trulicity [Dulaglut* Vomiting Nausea/vomiting, diarrhea and epigastric pain. Current Medications Current Outpatient Medications on File Prior to Visit Medication Sig insulin lispro (HUMALOG KWIKPEN INSULIN) 100 unit/mL Inject 22 units subcutaneously with meals. atorvastatin (LIPITOR) 10 mg tablet Take 1 tablet by mouth daily at bedtime. For cholesterol. lisinopril (ZESTRIL, PRINIVIL) 5 mg tablet Take 1 tablet by mouth once daily. rOPINIRole (REQUIP) 0.5 mg tablet Take 1 tablet by mouth daily at bedtime. insulin glargine (LANTUS SOLOSTAR U-100 INSULIN) 100 unit/mL (3 mL) Inject 40 units subcutaneously twice a day blood sugar diagnostic (ONETOUCH VERIO TEST STRIPS) test strip Test blood sugar(s) 4 times daily. Dx: Type 2 DM - Controlled E11.9 Insulin: Yes Insulin [place], Disposable, (BD ULTRA-FINE VINOD PEN NEEDLE) 32 gauge x 5/32 Use one needle for each dose. 5/day. Lancets lancets Test blood sugar(s) 4 times daily. Dx: Type 2 DM - Controlled E11.9 Insulin: Yes Lancets (ACCU-CHEK SOFTCLIX LANCETS) lancets Test blood sugar(s) 4 times daily and as needed. Dx: 250.02. Insulin: Yes Blood-Glucose Meter (ACCU-CHEK KENNY PLUS METER) misc Test glucose twice daily, 250.02. Insulin yes. VINOD PEN NEEDLE 32 gauge x 5/32 ndle use 1 NEEDLE FOR EACH DOSE, four times a day multivitamin tablet Take 1 tablet by mouth once daily. ondansetron (ZOFRAN) 4 mg tablet TAKE 1 TABLET BY MOUTH EVERY 8 HOURS NEEDED FOR NAUSEA AND VOMITING (Patient not taking: Reported on 12/09/2021) HYDROcodone-acetaminophen (NORCO) 5-325 mg per tablet TAKE 1 TABLET BY MOUTH EVERY 8 HOURS FOR 5 DAYS (Patient not taking: Reported on 12/09/2021) oxyCODONE IR (ROXICODONE) 5 mg immediate release tablet Take 1 tablet by mouth every 8 hours as needed for pain. (Patient not taking: Reported on 12/09/2021) No current facility-administered medications on file prior to visit. Social History Social History Tobacco Use Smoking status: Never Smoker Smokeless tobacco: Never Used Vaping Use Vaping Use: Never used Substance Use Topics Alcohol use: No Drug use: No Review of Symptoms REVIEW OF SYSTEMS GENERAL: No weight loss, malaise or fevers HEENT: Negative for frequent or significant headaches, No changes in hearing or vision, no nose bleeds or other nasal problems NECK: Negative for lumps, goiter, pain and significant neck swelling RESPIRATORY: Negative for cough, hemoptysis, wheezing, COPD, dyspnea or shortness of breath CARDIOVASCULAR: Negative for chest pain, leg swelling, hypertension, CHF or palpitations GI: No nausea, vomiting, or diarrhea : No history of dysuria, frequency or incontinence 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 andObese. Skin: Skin color, texture, turgor normal, no suspicious rashes or lesions. Head: Normocephalic, no masses, lesions, tenderness or abnormalities. Eyes: Anicteric sclera. Pupils are equally round and reactive to light. Extraocular movements are intact. . Ears: External ears normal, canals clear. Neck: Supple, no adenopathy; thyroid symmetric, normal size, no bruits. Lungs: Lungs clear to auscultation. No wheezing, rhonchi, rales.. Heart: RRR without murmur, gallop, or rubs. No ectopy. Abdomen: Normal abdominal exam, Abdomen soft, non-tender. Bowel sounds normal. No masses, organomegaly. Ventral hernia noted. Extremities: No deformities, edema, skin discoloration, clubbing or cyanosis. Good capillary refill. . Health Maintenance List COVID-19 VACCINE(1) Never done DILATED RETINAL EXAM Never done HEPATITIS B(1 of 3 - Risk 3-dose series) Never done PAP TESTING Never done HPV TESTING Never done PNEUMOCOCCAL(2 - PCV) due on 08/06/2017 DIABETIC FOOT EXAM due on 06/05/2022 HBA1C due on 07/22/2022 MAMMOGRAM due on 12/11/2022 URINE ALBUMIN:CREATININE RATIO due on 04/21/2023 LDL CHOLESTEROL due on 04/21/2023 ANNUAL PCP TEAM CHRONIC DISEASE VISIT due on 04/22/2023 DEPRESSION SCREENING due on 04/22/2023 DTAP,TDAP,TD(2 - Td or Tdap) due on 10/10/2029 INFLUENZA Completed HEPATITIS C SCREENING Completed HIV SCREENING Completed Data reviewed Component Latest Ref Rng & Units 04/21/2022 Total Cholesterol, Nonfasting <200 mg/dL 170 Triglycerides, Nonfasting <150 mg/dL 184 (H) HDL Cholesterol, Nonfasting >39 mg/dL 43 LDL Cholesterol, Nonfasting <100 mg/dL 90 Non HDL Cholesterol, Nonfasting <130 mg/dL 127 VLDL Cholesterol, Nonfasting <30 mg/dL 37 (H) Total Chol/HDL Ratio, Nonfasting <5.10 mg/dL 3.95 LDL/HDL Ratio, Nonfasting <2.54 mg/dL 2.09 Creatinine, Ur Random (UCRR) 20.0 - 300.0 mg/dL 130.7 Albumin, Urine Random mg/L 26.8 Albumin/Creat Ratio <30 mg/g 21 Hemoglobin A1C 4.3 - 5.6 % 9.7 (H) Estimated Average Glucose mg/dL 232 EKG: NSR at 96 bpm ASSESSMENT/PLAN: 1. Annual physical exam - ICD9: V70.0, ICD10: Z00.00 (primary diagnosis) - Counseled on healthy diet and regular exercise - Calcium intake with supplements or by diet of 1000 mg/day for under 50, 1200- 1500 mg/day for 50+ - Follow up for annual exam in one year - ECG COMPLETE 2. Pre-operative clearance - ICD9: V72.84, ICD10: Z01.818 Normal EKG. Will check renal function with CMP. If normal, will clear for upcoming procedure. Will work to control DM prior to upcoming procedure to aid healing process. - ECG COMPLETE 3. Diabetes mellitus type II (HCC) - ICD9: 250.00, ICD10: E11.9 poorly controlled - Increase Humalog and Lantus - Blood glucose monitoring on a three times a day schedule and call in 1 week with updated glucose readings. - Ophthalmology referral for eval/management of diabetic eye changes - Encouraged regular aerobic exercise and weight loss - Daily Asprin therapy recommended - Follow up in 3 months, sooner should any other issues arise. - Discussed diabetic education issues of technician terminal and repeater diabetic complications, hypoglycemic symptoms, hyperglycemic symptoms, diet, medications- side effects and need for compliance, importance of exercise, use and side effects of insulin and importance of annual examinations with Opthalmology with patient. - COMP METABOLIC PANEL - LANTUS SOLOSTAR U-100 INSULIN 100 UNIT/ML (3 ML) SUBCUTANEOUS PEN - CBC + DIFF 4. Mixed hyperlipidemia - ICD9: 272.2, ICD10: E78.2 - good control - Continue current medication. - Encouraged following a low fat, low cholesterol diet. - Discussed the benefits of regular aerobic exercise and weight loss. 5. Ventral hernia without obstruction or gangrene - ICD9: 553.20, ICD10: K43.9 2/ ileostomy reversal/closure. F/u with surgeon as scheduled. Red flags for re- assessment reviewedwith patient in detail. 6. Liver lesion - ICD9: 573.8, ICD10: K76.9 Obtain MRI for further characterization of incidental lesion on CT. - MRI LIVER WO/W IVCON - IV CONTRAST (RADIOLOGY PROCEDURE) 7. Obesity (BMI 30-39.9) - ICD9: 278.00, ICD10: E66.9 Stable - Behavioral intervention 8. Screening for cervical cancer - ICD9: V76.2, ICD10: Z12.4 Requesting referral to [employer] CONTROL ROOM OPERATOR within [facility] system. - CONSULT TO GYNECOLOGY Jean Claude Huitron MD documented in this encounterMercer [facility]05-27-2022 Miscellaneous Notes* Telephone Encounter - Gabriela Llamas LPN - 04/02/2022 2:30 PM EDT Patient phones requesting refills as follows: Pending Prescriptions Disp Refills INSULIN LISPRO (U-100) 100 UNIT/ML SUBCUTANEOUS PEN 15 Pen 2 Sig: Inject 22 units subcutaneously with meals. TESSA: No AMIRAH 12/09/21 NOV 04/22/22 Please review and advise. Gabriela Llamas LPN documented in this encounterMercer County [facility]05-26-2022 History of Present illness Narrative* Roxana Moore MD - 04/01/2022 9:00 AM EDT Images from the original note were not included. DATE: 04/01/2022 AUTHOR: Roxana Moore MD REASON FOR VISIT: Incisional Hernia HISTORY OF PRESENT ILLNESS: Trice Zambrano is a 41 y.o. female referred for evaluation of a bothersome hernia. The patient was hospitalized with a perineal wound and underwent diverting loop ileostomy in the past. This fortunately allowed her to recover completely and she has since undergone loop ileostomy closure. She is now back to her baseline of health with normal bowel function and overall great functional status. However, she has unfortunately developed a hernia at the previous ostomy site. A CT scan was obtained which demonstrates an approximately 5 cm defect with retraction of the rectus muscle laterally. She states that the hernia is bothersome to her and frequently causes pain and discomfort particularly whenshe is trying to be active. She also noticed that a bump seconds counters a fair amount. She is very concerned that she could have an episode of incarceration, though fortunately has not had any symptoms to suggest this yet. She would like to have the hernia repaired. I have personally reviewed all relevant imaging and reports including her CT scan. She is otherwiserelatively healthy though is obese with a BMI of 35 and is diabetic, though her blood sugars are well controlled and her last A1c was 7. She is a nonsmoker. She has had a previous lap katherine and hysterectomy in addition to her ostomy operations. REVIEW OF SYSTEMS: Constitutional: No abnormal weight gain or loss Integumentary: No rashes or itching HEENT: No headache, eye irritation or vision changes Respiratory: No shortness of breath or wheezing Cardiac: No chest pain Gastrointestinal: No changes in bowel habits Urinary: No dysuria or frequency Vascular: No active clots Heme: Denies easy bruising or spontaneous bleeding Musculoskeletal: No new joint or muscle pain Neurologic: No headaches or sensory changes Endocrine: No heat/cold intolerance Psychiatric: No major anxiety or depression PAST MEDICAL HISTORY: Past Medical History: Diagnosis Date Depression Diabetes mellitus Essential hypertension, benign Hyperlipidemia PAST SURGICAL HISTORY: Past Surgical History: Procedure Laterality Date COLONOSCOPY DIAGNOSTIC N/A 03/15/2022 Laterality: N/A; Surgeon: Kecia Carvalho MD; Location: [facility] E ENDOSCOPY REVISION COLOSTOMY W/ REPAIR PARACOLOSTOMY HERNIA OPEN N/A 09/09/2021 Laterality: N/A; Surgeon: Kecia Carvalho MD; Location: [facility] E MAIN OR COLONOSCOPY DIAGNOSTIC N/A 08/17/2021 Laterality: N/A; Surgeon: Kecia Carvalho MD; Location: [facility] ENDOSCOPY COLOSTOMY LAPAROSCOPIC N/A 05/13/2021 Laterality: N/A; Surgeon: Trace Bailey MD; Location: [facility] MAIN OR DEBRIDEMENT SQ TISSUE Midline 05/06/2021 Laterality: Midline; Surgeon: Jean Carlos Dumont MD; Location: [facility] MAIN OR HOME MEDICATIONS: Outpatient Medications Prior to Visit Medication Sig Dispense Refill acetaminophen 325 MG tablet Take 3 tablets by mouth every 8 hours. 50 tablet 3 Adhesive Tape (Medipore H Surgical 2x10yd) Tape 1 Application by Unknown route 2 times daily. 1 Each 3 atorvastatin 10 MG tablet Take 10 mg by mouth at bedtime. docusate 100 MG capsule Take 1 capsule by mouth 2 times daily. 30 capsule 1 Gauze Pads & Dressings (Abdominal Pad) 8X10 Pads 1 Application by Unknown route 2 times daily. Apply clean, dry abd pad overtop of packed kerlix gauze 30 Each 0 Gloves Nitrile Powder Free Misc 1 Application by Unknown route 2 times daily. 50 Each 0 ibuprofen 600 MG tablet Take 1 tablet by mouth every 8 hours. 50 tablet 3 insulin glargine 100 UNIT/ML vial Inject 40 Units under the skin 2 times daily. insulin lispro 100 UNIT/ML vial Inject 22 Units under the skin 3 times daily with meals. lisinopril 5 MG tablet Take 5 mg by mouth daily. Multiple Vitamin (multivitamin) capsule Take 1 capsule by mouth daily. PEG [id number]-NaSulf (peg 3350 w/electrolytes) 236 g Recon Soln For best results, take medication as directed by Colonoscopy Prep instructions 4000 mL 0 rOPINIRole 0.5 MG tablet Take 0.5 mg by mouth at bedtime. Soft Lens Products (Saline) 0.9 % Solution 1 Application by Unknown route 2 times daily. Wet kerlixgauze with saline before packing 360 mL 3 cyclobenzaprine 10 MG tablet Take 1 tablet by mouth 3 times daily as needed for Muscle spasms. 20 tablet 0 DULoxetine [address] Particles capsule DR Take 30 mg by mouth every other day. gabapentin 100 MG capsule Take 1 capsule by mouth every 8 hours for 7 days. 21 capsule 0 oxyCODONE 5 MG tablet Take 1 tablet by mouth every 4 hours as needed for Mild Pain, Moderate Pain or Severe Pain for up to 14 days. Advised to take 1-2 tablets 30 min before each dressing change 30 tablet 0 No facility-administered medications prior to visit. ALLERGIES: No Known Allergies SOCIAL HISTORY: Social History Socioeconomic History Marital status: Spouse name: Not on file Number of children: Not on file Years of education: Not on file Highest education level: Not on file Occupational History Not on file Tobacco Use Smoking status: Never Smoker Smokeless tobacco: Never Used Vaping Use Vaping Use: Never used Substance and Sexual Activity Alcohol use: Never Drug use: Never Sexual activity: Not on file Other Topics Concern Not on file Social History Narrative Not on file Social Determinants of Health Financial Resource Strain: Not on file Food Insecurity: Not on file Transportation Needs: Not on file Physical Activity: Not on file Stress: Not on file Social Connections: Not on file Intimate Partner Violence: Not on file Housing Stability: Not on file FAMILY HISTORY: Family History Problem Relation Age of Onset Colorectal Cancer Neg Hx PHYSICAL EXAM: Vitals: BP (!) 143/92 Pulse 93 Ht 1.727 m (5' 8) Wt 106.1 kg (234 lb) BMI 35.58 kg/m Smoking Status Never Smoker Body mass index is 35.58 kg/m . General: Alert, oriented to time, place and event, well nourished, NAD Lymph: No lymphadenopathy Respiratory: Unlabored respirations Cardiac: Regular rate and rhythm, strong peripheral pulses GI: Abdomen soft, non-tender, non distended, at the ostomy site in the left lower quadrant, it is difficult to fully appreciate the hernia defect due to her body habitus but there is not an obviouslyreducible mass. Other laparoscopy incisions are well healed. Extremities: Warm and well perfused, no peripheral edema Skin: No rashes Phychiatric: appropriate mood and affect STUDIES: IMPRESSION: Herniation of omental fat through prior colostomy defect with small overlying irregular fluid collection and adjacent granulation tissue. No herniated Bowel. ASSESSMENT AND PLAN: Trice Zambrano is a 41 y.o. female with a bothersome incisional hernia at a previous ostomy site. Wespent a great deal of time in clinic today discussing the natural history of the patients conditionand reviewed the illustrated KRAMES booklet together. As the hernia is quite bothersome to her and she is otherwise a good operative candidate, it is reasonable to proceed with repair. The Proposed procedure was discussed in detail with the patient including additional things to workon pre-operatively (including the importance of weight loss both pre and postoperatively to reduce the risk of hernia recurrence), details of the operation itself, and the expected post-operative recovery, including 1 month of lifting restrictions. We reviewed the risks of the procedure including bleeding, infection and damage to local structures as well as the small risk of more serious complications like stroke or . PARQ was completed and all questions were answered to the patient's satisfaction. -- Proceed with robotic ventral hernia repair with mesh -- Written consent obtained -- Pre-op orders placed Roxana Moore MD flask carrier Division of General and Gastro[facility] History of Present illness Narrative* Kecia Carvalho MD - 03/18/2022 10:00 AM EDT COLORECTAL SURGERY CLINIC NOTE BRIEF HISTORY: Ms. Zambrano is a 41 y.o. year old female. She underwent loop colostomy creation on 05/13while hospitalized for a complicated perineal wound requiring multiple debridements. Her colostomy was created to diminish wound contamination and assist with healing. She has been diligent with her wound management at home with her and has had home health nursing coming to assist. Her wound has been improving and is nearly healed. Her main complaint at this time is that her stoma has retracted significantly. She actually states that it has been retracted similarly from very early postoperatively. Secondary to this she has significant skin irritation near the stoma. She has had regular and consistent ostomy output. She denies significant constipation or bloating. She has some nauseabut denies emesis. She had some mucus discharge per rectum postoperatively but has not had bowel movements since then. She complains of mild abdominal cramping which she attributes to the colostomy. She has never before had issues with FI. Is reporting some new sharp pains in her rectum over the last few days. Last A1c was 7.5 in Care Everywhere 06/01/21. Her past surgical history includes multiple soft tissue debridements, section, cholecystectomy, and loop colostomy creation. 09/09/21: lap loop colostomy closure S: Feeling well. Some abdominal soreness attributed to hernia that was confirmed on CT. Bowels moving fine. No issues after colonoscopy. O: BP 143/72 Pulse 82 Ht 1.727 m (5' 8) Wt 105.7 kg (233 lb) BMI 35.43 kg/m Smoking Status Never Smoker PHYSICAL EXAM Gen: NAD Lungs: no respiratory distress, breathing comfortably Abd: Well healed stoma reversal site and lap trocars sites. Ostomy reversal site with soft, mildly TTP hernia. Anorectal: Deferred Ext: warm and dry, no edema Neuro: no gross deficits Colonoscopy 03/15/22: Findings: The perianal and digital rectal examinations were normal. There was evidence of a prior end-to-side colo-colonic anastomosis in the sigmoid colon. This was patent and was characterized by healthy appearing mucosa. The anastomosis was traversed. The retroflexed view of the distal rectum and anal verge was normal and showed no anal or rectal abnormalities. Impression: - Patent end-to-side colo-colonic anastomosis, characterized by healthy appearing mucosa. - The distal rectum and anal verge are normal on retroflexion view. - No specimens collected. CT A/P 03/17/22: IMPRESSION: Herniation of omental fat through prior colostomy defect with small overlying irregular fluid collection and adjacent granulation tissue. No herniated bowel. Suggestion of new 2 cm hypodense liver lesion, but limited by lack of intravenous contrast. Consider MRI for further evaluation. A/P: Trice Zambrano is a 41 y.o. female s/p loop colostomy closure. She has developed a hernia at the colostomy site post-op. For this I will refer her to one of my hernia colleagues, Dr. Roxana Moore, for consideration for repair. In the meantime I have counseled her on weight loss as her BMI is just over 35 which is often a cut off for hernia repair. For the liver lesion noted on non- con CT, barb printed the report for her to bring to her upcoming PCP appt so that this can be coordinated through Dr. Huitron's office. She will also need a scope in 3 years due to her history of SSA. She was in agreement with this plan. She may FU with me PRN. She was advised to call or My Chart with any questions or concerns. Kecia Carvalho MD documented [facility] Miscellaneous Notes* Telephone Encounter - Reena Crooks LPN - 03/03/2022 8:02 AM EDT Patient has been identified by name and date of : Yes Patient phones for refill(s): Pending Prescriptions Disp Refills ROPINIROLE 0.5 MG TABLET 30 tablet 2 Sig: Take 1 tablet by mouth daily at bedtime. TESSA: No Date of last office visit in primary care: 12/09/21 next apt 04/22/22 Last 2 Encounter Wt Readings: Date: Wt: 12/23/2021 107.5 kg (237 lb) 12/09/2021 104.2 kg (229 lb 12.8 oz) Previous labs/tests for medication: Not applicable Please advise. Thank you. Reena Crooks LPN documented in [facility] Miscellaneous Notes* Telephone Encounter - Ambrosio Jarrett Ma - 03/01/2022 2:43 PM EDT Notified via [employer]. * Telephone Encounter - Jean Claude Huitron MD - 02/26/2022 12:34 PM EDT Labs pended to be completed prior to upcoming OV. * Telephone Encounter - LANDEN Rey - 02/26/2022 12:26 PM EDT Patient has been identified by name and date of : Yes Patient phones for refill(s): Pending Prescriptions Disp Refills LANTUS SOLOSTAR U-100 INSULIN 100 UNIT/ML (3 ML) SUBCUTANEOUS PEN 5 Pen 3 Sig: Inject 40 units subcutaneously twice a day TESSA: No Date of last office visit in primary care: OV on 12/09/2021 Appointment scheduled for 04/22/2022 Last 2 Encounter Wt Readings: Date: Wt: 12/23/2021 107.5 kg (237 lb) 12/09/2021 104.2 kg (229 lb 12.8 oz) Please advise. Thank you. LANDEN Rey documented in this encounterMer[facility]07-27-[facility] History of Present illness Narrative* Trace Bailey MD - 06/02/2021 12:30 PM EDT CC: follow-up (documenting for services provided 06/02/21) HPI: Trice Zambrano is a 40 y.o. y/o female s/p laparoscopic diverting loop colostomy (05/13/21) for a large perineal wound. Since her discharge, she has been receiving calcium alginate dressing changes to her perineum by home health. She is having colostomy function; however, she does develop intermittent constipation and abdominal cramping. Otherwise, the patient remains positive that her wound is healing and eager to have her ostomy reversed soon. Denies fevers/chills; no nausea/vomiting. Physical Exam: Vitals: 06/02/21 1214 BP: 125/68 Pulse: 99 Temp: 98.1 F (36.7 C) Physical Exam Vitals reviewed. Cardiovascular: Rate and Rhythm: Normal rate. Pulmonary: Effort: Pulmonary effort is normal. No respiratory distress. Abdominal: General: There is no distension. Palpations: Abdomen is soft. Tenderness: There is no abdominal tenderness. Comments: LLQ colostomy pink/patent; slightly retracted with trace juliet-stomal irritation Genitourinary: Comments: Perineal wound with healthy, pink granulation tissue; no purulence or surrounding erythema Skin: General: Skin is warm. Neurological: Mental Status: She is alert and oriented to person, place, and time. Psychiatric: Mood and Affect: Mood normal. Assessment/Plan: 1) Perineal dressing re-applied during visit. 2) Continue home health dressing changes and stoma care. 3) Patient to reach out when her perineal wound has healed so that we can schedule her colostomy reversal. Trace Bailey MD 06/13/2021 documented [facility] No data available for this section [facility] note* Diagnosis Follow up- Primary documented in this encounter [facility] note* Diagnosis Diabetes mellitus type II (HCC)- Primary documented in this encounter [facility] note* Diagnosis RLS (restless legs syndrome) Restless legs syndrome (RLS) documented in this encounter [facility] note* Diagnosis Colostomy present documented in this encounter [facility] note* Diagnosis Ventral hernia without obstruction or gangrene- Primary Ventral hernia, unspecified, without mention of obstruction or gangrene [facility] Diagnosis Ventral hernia without obstruction or gangrene Ventral hernia, unspecified, without mention of obstruction or gangrene Incisional hernia Incisional hernia without mention of obstruction or gangrene [facility]* Diagnosis Annual physical exam- Primary Routine general medical examination at a [facility] care facility Pre-operative clearance Preoperative examination, unspecified Diabetes mellitus type II (HCC) Mixed hyperlipidemia Ventral hernia without obstruction or gangrene Ventral hernia, unspecified, without mention of obstruction or gangrene Liver lesion Other specified disorders of liver Obesity (BMI 30-39.9) Obesity, unspecified Screening for cervical cancer Screening for malignant neoplasm of the cervix documented in this encounter [facility] note* Diagnosis Liver lesion Other specified disorders of liver documented in this encounter [facility] note* Diagnosis Ventral hernia without obstruction or gangrene Ventral hernia, unspecified, without mention of obstruction or gangrene Incisional hernia Incisional hernia without mention of obstruction or gangrene [facility]* Diagnosis S/P repair of ventral hernia- Primary Other postprocedural status [facility] noteNo assessment information available [facility] Work Phone: Evaluation note* Diagnosis UTI symptoms- Primary Other symptoms involving urinary system Abdominal wall seroma, subsequent encounter documented in this encounter [facility] note* Diagnosis Recurrent UTI (urinary tract infection)- Primary Urinary tract infection, site not specified Diabetes mellitus type II (HCC) [facility] Diagnosis Boil, buttock- Primary Carbuncle and furuncle of buttock [facility]* Diagnosis Abscess, gluteal, right- Primary Cellulitis and abscess of buttock Status post incision and drainage Type 2 diabetes mellitus with hyperglycemia, with long-term current use of insulin (HCC) [facility]* Diagnosis Diabetes mellitus type II (HCC) [facility]* Diagnosis Type 2 diabetes mellitus with hyperglycemia, with long-term current use of insulin (HCC)- Primary [facility]* Diagnosis Encounter for screening mammogram for breast cancer [facility]* Diagnosis Right arm pain- Primary Pain in limb Numbness and tingling of right arm Disturbance of skin sensation Headache, unspecified headache type Left facial numbness Disturbance of skin sensation [facility]* Diagnosis Sinobronchitis- Primary Unspecified sinusitis (chronic) [facility]* Diagnosis RLS (restless legs syndrome) Restless legs syndrome (RLS) [facility]* Diagnosis RLS (restless legs syndrome) Restless legs syndrome (RLS) [facility]* Diagnosis Diabetes mellitus type II (HCC) [facility]* Diagnosis Type 2 diabetes mellitus with hyperglycemia, with long-term current use of insulin (HCC)- Primary Pre-op evaluation Preoperative examination, unspecified Traumatic tear of left rotator cuff, unspecified tear extent, subsequent encounter [facility]* Diagnosis Type 2 diabetes mellitus with hyperglycemia, with long-term current use of insulin (HCC) [facility]* Diagnosis Type 2 diabetes mellitus with hyperglycemia, with long-term current use of insulin (HCC) [facility]* Diagnosis Type 2 diabetes mellitus with hyperglycemia, with long-term current use of insulin (HCC)- Primary Pre-op evaluation Preoperative examination, unspecified [facility]* Diagnosis Encounter for screening mammogram for breast cancer [facility]* Diagnosis Diabetes mellitus type II (HCC) RLS (restless legs syndrome) Restless legs syndrome (RLS) Type 2 diabetes mellitus with hyperglycemia, with long-term current use of insulin (HCC) [facility]* Diagnosis Annual physical exam- Primary Routine general medical examination at a [facility] care facility Type 2 diabetes mellitus with hyperglycemia, with long-term current use of insulin (HCC) Peripheral polyneuropathy Unspecified hereditary and idiopathic peripheral neuropathy RLS (restless legs syndrome) Restless legs syndrome (RLS) Mixed hyperlipidemia Obesity (BMI 30-39.9) Obesity, unspecified Screening for cervical cancer Screening for malignant neoplasm of the cervix Encounter for immunization Need for other specified prophylactic vaccination against single bacterial disease [facility]* Diagnosis Leukocytosis, unspecified type- Primary [facility]* Diagnosis Type 2 diabetes mellitus with hyperglycemia, with long-term current use of insulin ([facility]) [facility]* Diagnosis Sore throat- Primary Acute pharyngitis Fever, unspecified fever cause [facility]* Diagnosis Encounter for screening mammogram for breast cancer [facility]* Diagnosis Diabetes mellitus type II (HCC) [facility]* Diagnosis Type 2 diabetes mellitus with hyperglycemia, with long-term current use of insulin (HCC) RLS (restless legs syndrome) Restless legs syndrome (RLS) [facility]* Diagnosis Infection- Primary Unspecified infectious and parasitic diseases [facility]* Diagnosis Hospital discharge follow-up- Primary Other follow-up examination Encounter for immunization Need for other specified prophylactic vaccination against single bacterial disease Rectal abscess Abscess of anal and rectal regions [facility]* Diagnosis Type 2 diabetes mellitus with hyperglycemia, with long-term current use of insulin (HCC)- Primary RLS (restless legs syndrome) Restless legs syndrome (RLS) Elevated BP without diagnosis of hypertension [facility]* Diagnosis Diabetes mellitus type II (HCC) RLS (restless legs syndrome) Restless legs syndrome (RLS) [facility]* Diagnosis Diabetes mellitus type II (HCC) RLS (restless legs syndrome) Restless legs syndrome (RLS) [facility]* Diagnosis Encounter for screening mammogram for breast cancer [facility] No data available for this section [facility] Reason for referral (narrative)* Consultation (Routine) - New Request Specialty Diagnoses / Procedures Referred By Contac t Referred To Contact General Surgery Diagnoses Ventral hernia without obstruction or gangrene Kecia Carvalho MD [address] [facility] [address] [place] [address] Referral ID Status Reason Start Date Expiration Date V isits Requested Visits Authorized [id number] New Request 03/18/2022 04/12/2023 1 1 [facility] Outpatient Procedure (Routine) - Closed Specialty Diagnoses / Procedures Referred By Contac t Referred To Contact [facility] Diagnoses Annual physical exam Pre-operative clearance Procedures ECG COMPLETE ECG ROUTINE ECG W/LEAST 12 LDS W/I&R Jean Claude Huitron MD [address] [place] [address] [facility] [address] [place] [address] Referral ID Status Reason Start Date Expiration Date V isits Requested Visits Authorized [id number] Closed Auto-Generate d Referral 04/22/2022 04/22/2023 1 1 * Consult, Test, Treat (Routine) - Authorized Specialty Diagnoses / Procedures Referred By Contac t Referred To Contact Gynecology Diagnoses Screening for cervical cancer Procedures CONSULT TO GYNECOLOGY OFFICE/OUTPATIENT NEW HIGH MDM 60-74 MINUTES Jean Claude Huitron MD [address] [place] [address] Referral ID Status Reason Start Date Expiration Date Visits Requested Visits Authorized [id number] Authorized PCP Requested Referral Auto-Generate d Referral 04/22/2022 04/22/2023 1 1 * MRI/CT (Urgent) - Authorized Specialty Diagnoses / Procedures Referred By Armand blankenship Referred To Contact MR IMAGING Diagnoses Liver lesion Procedures MRI LIVER WO/W IVCON MRI ABDOMEN W/O & W/CONTRAST MATERIAL Jean Claude Huitron MD [address] [place] [address] Mr Imaging Referral ID Status Reason Start Date Expiration Date Visits Requested Visits Authorized [id number] Authorized Auto-Generat ed Referral 04/22/2022 05/24/2022 1 1 [facility] for referral (narrative)* Diagnostic Procedure Only (Routine) - Waiting for Response Specialty Diagnoses / Procedures Referred By Armand blankenship Referred To Contact [facility] Diagnoses Encounter for screening mammogram for breast cancer Procedures JESSICA SCREENING SCREENING MAMMOGRAPHY BI 2-VIEW BREAST INC CAD Jean Claude Huitron MD [address] [place] [address] [facility] [address] [place] [address] Referral ID Status Reason Start Date Expiration Date Visits Requested Visits Authorized [id number] Waiting for Response Auto-Generat ed Referral 01/12/2023 02/11/2024 1 1 [facility] for referral (narrative)* Outpatient Procedure (Routine) - Pending Review Specialty Diagnoses / Procedures Referred By Armand blankenship Referred To Contact [facility] Diagnoses Pre-op evaluation Procedures ECG COMPLETE ECG ROUTINE ECG W/LEAST 12 LDS W/I&R Jean Claude Huitron MD [address] [place] [address] [facility] [address] [place] [address] Referral ID Status Reason Start Date Expiration Date Visits Requested Visits Authorized [id number] Pending Review Auto-Generat ed Referral 06/03/2023 06/02/2024 1 1 [facility] for referral (narrative)* Diagnostic Procedure Only (Routine) - Pending Review Specialty Diagnoses / Procedures Referred By Armand blankenship Referred To Contact [facility] Diagnoses Encounter for screening mammogram for breast cancer Procedures JESSICA SCREENING SCREENING MAMMOGRAPHY BI 2-VIEW BREAST INC Jean Claude Chowdary MD [address] [place] [address] [facility] [address] [place] [id number] Referral ID Status Reason Start Date Expiration Date Visits Requested Visits Authorized [id number] Pending Review Auto-Generat ed Referral 12/28/2023 01/26/2025 1 1 [facility] for referral (narrative)* Diagnostic Procedure Only (Routine) - Closed Specialty Diagnoses / Procedures Referred By Armand blankenship Referred To Contact [facility] Diagnoses Encounter for screening mammogram for breast cancer Procedures JESSICA SCREENING SCREENING MAMMOGRAPHY BI 2-VIEW BREAST INC Jean Claude Chowdary MD [address] [place] [address] [facility] [address] [place] [address] Referral ID Status Reason Start Date Expiration Date V isits Requested Visits Authorized [id number] Closed Auto-Generate d Referral 12/28/2023 01/26/2025 1 1 [facility] for visit Narrative* Auth/Cert Specialty Diagnoses / Procedures Referred By Armand blankenship Referred To Contact Diagnoses Incisional hernia Incisional hernia [K43.2] Procedures IA LAP, VENTRAL HERNIA REPAIR,REDUCIBLE REPAIR HERNIA VENTRAL ROBOTIC W/ MESH Roxana Moore MD [address] [facility] [address] [place] [address] [facility] [address] [place] [address] Referral ID Status Reason Start Date Expiration Date Visits Re quested Visits Authorized [id number] [facility] Diagnostic Procedure Only (Routine) - Closed Specialty Diagnoses / Procedures Referred By Contdixon t Referred To Contact [facility] Diagnoses Encounter for screening mammogram for breast cancer Procedures JESSICA SCREENING SCREENING MAMMOGRAPHY BI 2-VIEW BREAST INC Jean Claude Chowdary MD [address] [place] [address] [facility] [address] [place] [address] Referral ID Status Reason Start Date Expiration Date V isits Requested Visits Authorized [id number] Closed Auto-Generate d Referral 12/28/2023 01/26/2025 1 1 [facility] Summary Purpose Family History No Family History Records FoundNo Family History Records FoundNo Family History Records FoundNo Family History Records Found No data available for this section No data available for this section No data available for this section No Family History Records Found No data available for this section No Family History Records FoundNo Family History Records FoundNo Family History Records Found Advance Directives Latest Code Status on File Code Status Date Activated Date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 Records regulations: The Federal rules restrict any use of the information to criminally investigate or prosecute any alcohol or drug abuse patient.[facility] HospitalIn the event this information is protected by the Federal Confidentiality of Alcohol and Drug Abuse Patient Records regulations: The Federal rules restrict any use of the information to criminally investigate or prosecute any alcohol or drug abuse patient.[facility] the event this information is protected by the Federal Confidentiality of Alcohol and Drug Abuse Patient Records regulations: The Federal rules restrict any use of the information to criminally investigate or prosecute any alcohol or drug abuse patient.[facility] HospitalIn the event this information is protected by the Federal Confidentiality of Alcohol and Drug Abuse Patient Records regulations: The Federal rules restrict any use of the information to criminally investigate or prosecute any alcohol or drug abuse patient.[facility] HospitalIn the event this information is protected by the Federal Confidentiality of Alcohol and Drug Abuse Patient Records regulations: The Federal rules restrict any use of the information to criminally investigate or prosecute any alcohol or drug abuse patient.[facility] HospitalIn the event this information is protected by the Federal Confidentiality of Alcohol and Drug Abuse Patient Records regulations: The Federal rules restrict any use of the information to criminally investigate or prosecute any alcohol or drug abuse patient.[facility] HospitalIn the event this information is protected by the Federal Confidentiality of Alcohol and Drug Abuse Patient Records regulations: The Federal rules restrict any use of the information to criminally investigate or prosecute any alcohol or drug abuse patient.[facility] HospitalIn the event this information is protected by the Federal Confidentiality of Alcohol and Drug Abuse Patient Records regulations: The Federal rules restrict any use of the information to criminally investigate or prosecute any alcohol or drug abuse patient.[facility] HospitalIn the event this information is protected by the Federal Confidentiality of Alcohol and Drug Abuse Patient Records regulations: The Federal rules restrict any use of the information to criminally investigate or prosecute any alcohol or drug abuse patient.[facility] HospitalIn the event this information is protected by the Federal Confidentiality of Alcohol and Drug Abuse Patient Records regulations: The Federal rules restrict any use of the information to criminally investigate or prosecute any alcohol or drug abuse patient.[facility] HospitalIn the event this information is protected by the Federal Confidentiality of Alcohol and Drug Abuse Patient Records regulations: The Federal rules restrict any use of the information to criminally investigate or prosecute any alcohol or drug abuse patient.[facility] HospitalIn the event this information is protected by the Federal Confidentiality of Alcohol and Drug Abuse Patient Records regulations: The Federal rules restrict any use of the information to criminally investigate or prosecute any alcohol or drug abuse patient.[facility] HospitalIn the event this information is protected by the Federal Confidentiality of Alcohol and Drug Abuse Patient Records regulations: The Federal rules restrict any use of the information to criminally investigate or prosecute any alcohol or drug abuse patient.[facility] HospitalIn the event this information is protected by the Federal Confidentiality of Alcohol and Drug Abuse Patient Records regulations: The Federal rules restrict any use of the information to criminally investigate or prosecute any alcohol or drug abuse patient.[facility] HospitalIn the event this information is protected by the Federal Confidentiality of Alcohol and Drug Abuse Patient Records regulations: The Federal rules restrict any use of the information to criminally investigate or prosecute any alcohol or drug abuse patient.[facility] HospitalIn the event this information is protected by the Federal Confidentiality of Alcohol and Drug Abuse Patient Records regulations: The Federal rules restrict any use of the information to criminally investigate or prosecute any alcohol or drug abuse patient.[facility] HospitalIn the event this information is protected by the Federal Confidentiality of Alcohol and Drug Abuse Patient Records regulations: The Federal rules restrict any use of the information to criminally investigate or prosecute any alcohol or drug abuse patient.[facility] HospitalIn the event this information is protected by the Federal Confidentiality of Alcohol and Drug Abuse Patient Records regulations: The Federal rules restrict any use of the information to criminally investigate or prosecute any alcohol or drug abuse patient.[facility] HospitalIn the event this information is protected by the Federal Confidentiality of Alcohol and Drug Abuse Patient Records regulations: The Federal rules restrict any use of the information to criminally investigate or prosecute any alcohol or drug abuse patient.[facility] HospitalIn the event this information is protected by the Federal Confidentiality of Alcohol and Drug Abuse Patient Records regulations: The Federal rules restrict any use of the information to criminally investigate or prosecute any alcohol or drug abuse patient.[facility] HospitalIn the event this information is protected by the Federal Confidentiality of Alcohol and Drug Abuse Patient Records regulations: The Federal rules restrict any use of the information to criminally investigate or prosecute any alcohol or drug abuse patient.[facility] HospitalIn the event this information is protected by the Federal Confidentiality of Alcohol and Drug Abuse Patient Records regulations: The Federal rules restrict any use of the information to criminally investigate or prosecute any alcohol or drug abuse patient.[facility] HospitalIn the event this information is protected by the Federal Confidentiality of Alcohol and Drug Abuse Patient Records regulations: The Federal rules restrict any use of the information to criminally investigate or prosecute any alcohol or drug abuse patient.[facility] HospitalIn the event this information is protected by the Federal Confidentiality of Alcohol and Drug Abuse Patient Records regulations: The Federal rules restrict any use of the information to criminally investigate or prosecute any alcohol or drug abuse patient.[facility] HospitalIn the event this information is protected by the Federal Confidentiality of Alcohol and Drug Abuse Patient Records regulations: The Federal rules restrict any use of the information to criminally investigate or prosecute any alcohol or drug abuse patient.[facility] HospitalIn the event this information is protected by the Federal Confidentiality of Alcohol and Drug Abuse Patient Records regulations: The Federal rules restrict any use of the information to criminally investigate or prosecute any alcohol or drug abuse patient.[facility] HospitalIn the event this information is protected by the Federal Confidentiality of Alcohol and Drug Abuse Patient Records regulations: The Federal rules restrict any use of the information to criminally investigate or prosecute any alcohol or drug abuse patient.[facility] HospitalIn the event this information is protected by the Federal Confidentiality of Alcohol and Drug Abuse Patient Records regulations: The Federal rules restrict any use of the information to criminally investigate or prosecute any alcohol or drug abuse patient.[facility] HospitalIn the event this information is protected by the Federal Confidentiality of Alcohol and Drug Abuse Patient Records regulations: The Federal rules restrict any use of the information to criminally investigate or prosecute any alcohol or drug abuse patient.[facility] HospitalIn the event this information is protected by the Federal Confidentiality of Alcohol and Drug Abuse Patient Records regulations: The Federal rules restrict any use of the information to criminally investigate or prosecute any alcohol or drug abuse patient.[facility] HospitalIn the event this information is protected by the Federal Confidentiality of Alcohol and Drug Abuse Patient Records regulations: The Federal rules restrict any use of the information to criminally investigate or prosecute any alcohol or drug abuse patient.[facility] HospitalIn the event this information is protected by the Federal Confidentiality of Alcohol and Drug Abuse Patient Records regulations: The Federal rules restrict any use of the information to criminally investigate or prosecute any alcohol or drug abuse patient.[facility] HospitalIn the event this information is protected by the Federal Confidentiality of Alcohol and Drug Abuse Patient Records regulations: The Federal rules restrict any use of the information to criminally investigate or prosecute any alcohol or drug abuse patient.[facility] HospitalIn the event this information is protected by the Federal Confidentiality of Alcohol and Drug Abuse Patient Records regulations: The Federal rules restrict any use of the information to criminally investigate or prosecute any alcohol or drug abuse patient.[facility] HospitalIn the event this information is protected by the Federal Confidentiality of Alcohol and Drug Abuse Patient Records regulations: The Federal rules restrict any use of the information to criminally investigate or prosecute any alcohol or drug abuse patient.[facility] HospitalIn the event this information is protected by the Federal Confidentiality of Alcohol and Drug Abuse Patient Records regulations: The Federal rules restrict any use of the information to criminally investigate or prosecute any alcohol or drug abuse patient.[facility] HospitalIn the event this information is protected by the Federal Confidentiality of Alcohol and Drug Abuse Patient Records regulations: The Federal rules restrict any use of the information to criminally investigate or prosecute any alcohol or drug abuse patient.[facility] Scheduled Active and Recently Administ ered Medications (unrecognized section and content) Medication Order 05/19/2022 05/20/2022 05/21/2022 acetaminophen (TYLENOL) tablet 650 mg 650 mg, Oral, EVERY 6 HOURS, First dose on Tue05/21/22 at 1200, Until Discontinued, Maximum dose of acetaminophen is 4000 mg from all sources in 24 hours., Post-op/Post-Proc 1121 (Given - Provid er: Sandra Lloyd RN) ibuprofen (MOTRIN) tablet 600 mg 600 mg, Oral, EVERY 6 HOURS, First dose on Tue05/21/22 at 1200, Until Discontinued, Give with food, Post-op/Post-Proc 1200 (Canceled Entry - Provider: System Discharge - Comment: Automatically canceled at discontinue of medication order) Continuous Medication Order 05/19/2022 05/20/2022 05/21/2022 lactated ringers IV solution Intravenous, at 50 mL/hr, CONTINUOUS, Starting on Tue05/21/22 at 0600, Until Tue05/21/22 at 1415, Pre-op/Pre-Proc 0616 ($$New Bag$$ - Provider: Karissa Almanzar RN)0723 (Paused - Provider: Steve Louise MD - Comment: Switch to gravity)0724 (Restarted - Provider: Steve Louise MD)1008 ($$New Bag$$ - Provider: NAVIN Frias)1012 (Stopped - Provider: NAVIN Frias) lactated ringers IV solution Intravenous, at 50 mL/hr, CONTINUOUS, Starting on Tue05/21/22 at 1115, Until Tue05/21/22 at 1415, Saline lock when tolerating oral intake and remove IV per ASU protocol., Post-op/Post-Proc 1115 (Canceled Entry - Provider: System Discharge - Comment: Automatically canceled at discontinue of medication order) PRN Medication Order 05/19/2022 05/20/2022 05/21/2022 bupivacaine (PF) (MARCAINE) 0.5 % injection (CANCELED) NEEDED, Starting on Tue05/21/22 at 0750, Until Tue05/21/22 at 1009, Intra-op/Intra-Proc 0750 (Given - Provid er: Roxana Moore MD) ceFAZolin (ANCEF) 2 g in dextrose 100 mL premix IVPB 2 g, Intravenous, Administer over 30 Minutes, 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, 1 dose, Starting on Tue05/21/22 at 0554, Until Tue05/21/22 at 1415, Other, Surgical Prophylaxis, Initiate antibiotic administration 30-60 minutes prior to surgical incision and complete administration prior to surgical incision., Pre-op/Pre-Proc fentaNYL (SUBLIMAZE) injection 25 mcg 25 mcg, Intravenous, Administer over 2 Minutes, EVERY 10 MINUTES NEEDED, Starting on Tue05/21/22 at 1004, Until Tue05/21/22 at 1415, Moderate Pain, Recovery 1035 (Given - Provid er: Sandra Lloyd RN)1059 (Given - Provider: Sandra Lloyd RN)1128 (Given - Provider: Sandra Lloyd RN) haloperidol lactate (HALDOL) injection 1 mg 1 mg, Intravenous, ONCE NEEDED, 1 dose, Starting on Tue05/21/22 at 1004, Until Tue05/21/22 at 1415, Refractory Nausea/vomiting, Use if patient still experiencing nausea/vomiting after 1st and 2nd line medications. Do not administer within 6 hours of intra-operative dose., Recovery hydrALAZINE (APRESOLINE) injection 2 mg 2 mg, Intravenous, EVERY 30 MINUTES NEEDED, Starting on Tue05/21/22 at 1004, Until Tue05/21/22 at 1415, SECOND line HTN, For SBP > 170 Use if HR < 60 or if patient has reactive airway disease. Administer over 2 minutes. May give a total of 20 mg while in PACU. Notify MD if BP still uncontrolled after 2 mg and no other antihypertensive agents are ordered., Recovery HYDROmorphone (DILAUDID) injection 0.2 mg 0.2 mg, Intravenous, EVERY 5 MINUTES NEEDED, Starting on Tue05/21/22 at 1004, Until Tue05/21/22 at 1415, Moderate Pain, Severe Pain, Use as initial dose. Higher dose may be administered if lower dose did not result in adverse effects (RR<10, decrease in level of consciousness) and was previously documented as ineffective. May give a total of 1mg in PACU., Recovery labetalol (NORMODYNE) injection 5 mg 5 mg, Intravenous, EVERY 15 MINUTES NEEDED, Starting on Tue05/21/22 at 1004, Until Tue05/21/22 at 1415, FIRST line HTN. , For SBP > 170 Hold if HR < 60 or patient has reactive airway disease and give SECOND line agent. May give a total of 20 mg while in PACU. If blood pressure uncontrolled after 20mg of labetalol administered, use second line agent or notify MD. For vials: labetalol should be treated as a SINGLE USE VIAL. Discard remaining contents after one use., Recovery lidocaine-epinephrine 1%-[id number] injection (CANCELED) NEEDED, Starting on Tue05/21/22 at 0750, Until Tue05/21/22 at 1009, Intra-op/Intra-Proc 0750 (Given - Provid er: Roxana Moore MD) meperidine (DEMEROL) injection 12.5 mg 12.5 mg, Intravenous, ONCE NEEDED, 1 dose, Starting on Tue05/21/22 at 1004, Until Tue05/21/22 at 1415, Rigors, Shivering, May give total of 2 doses while in PACU. Keep respiratory rate greater than 10., Recovery ondansetron 4mg/2ml (ZOFRAN) injection 4 mg 4 mg, Intravenous, ONCE NEEDED, 1 dose, Starting on Tue05/21/22 at 1004, Until Tue05/21/22 at 1415, Nausea / Vomiting, FIRST line antiemetic, Do not administer within 6 hours of intra-operative dose., Recovery ondansetron 4mg/2ml (ZOFRAN) injection 4 mg 4 mg, Intravenous, EVERY 4 HOURS NEEDED, Starting on Tue05/21/22 at 1105, Until Tue05/21/22 at 1415, Nausea / Vomiting, 1st line, Post-op/Post-Proc oxyCODONE (ROXICODONE) tablet 5 mg(Linked Group 1) 5 mg, Oral, EVERY 4 HOURS NEEDED, Starting on Tue05/21/22 at 1004, Until Tue05/21/22 at 1415, Moderate Pain, Severe Pain, Use as initial dose. Higher dose may be administered if lower dose was previously documented as ineffective and did not result in adverse effects (RR<10, negative change in RASS of 2 or more)., Recovery 1035 (Given - Provid er: Sandra Lloyd RN) oxyCODONE (ROXICODONE) tablet 5 mg 5 mg, Oral, EVERY 6 HOURS NEEDED, Starting on Tue05/21/22 at 1105, Until Tue05/21/22 at 1415, Severe Pain, Post-op/Post-Proc oxyCODONE HCl (ROXICODONE) tablet 10 mg(Linked Group 1) 10 mg, Oral, EVERY 4 HOURS NEEDED, Starting on Tue05/21/22 at 1004, Until Tue05/21/22 at 1415, Moderate Pain, Severe Pain, Higher dose may be administered if lower dose was previously documented as ineffective and did not result in adverse effects (RR<10, negative change in RASS of 2 or more). Decrease back to lower dose if patient has adverse effects or no PRN use in previous 12 hours. Hold for sedation., Recovery 1035 (See Alternativ e - Provider: Sandra Lloyd RN) Linked Groups Order Group 1: oxyCODONE (ROXICODONE) tablet 5 mgJump to med 5 mg, Oral, EVERY 4 HOURS NEEDED, Starting on Tue05/21/22 at 1004, Until Tue05/21/22 at 1415, Moderate Pain, Severe Pain
Use as initial dose. Higher dose may be administered if lower dose was previously documented as ineffective and did not result in adverse effects (RR<10, negative change in RASS of 2 or more).
Recovery Or oxyCODONE HCl (ROXICODONE) tablet 10 mgJump to med 10 mg, Oral, EVERY 4 HOURS NEEDED, Starting on Tue05/21/22 at 1004, Until 05/21/22 at 1415, Moderate Pain, Severe Pain
Higher dose may be administered if lower dose was previously documented as ineffective and did not result in adverse effects (RR<10, negative change in RASS of 2 or more). Decrease back to lower dose if patient has adverse effects or no PRN use in previous 12 hours. Hold for sedation.
Recovery Goals (unrecognized section and content) Goals may be documented in a n alternate sectionGoals may be documented in an alternate sectionGoals may be documented in an alternate sectionGoals may be documented in an alternate section No data available for this section No data available for this section No data available for this section No data available for this section FOR RECORDS PERTAINING TO PATIENTS WHO ARE OR HAVE BEEN ENROLLED IN A CHEMICAL DEPENDENCY/SUBSTANCEABUSE PROGRAM, SOME INFORMATION MAY BE OMITTED. This clinical summary was aggregated from multiple sources. Caution should be exercised in using it in the provision of clinical care. This summary normalizes information from multiple sources, and as a consequence, information in this document may materially change the coding, format and clinical context of patient data. In addition, data may be omitted in some cases. CLINICAL DECISIONS SHOULD BE BASED ON THE PRIMARY CLINICAL RECORDS. [facility]. provides no warranty or guarantee of the accuracy or completeness of information in this document.
[2025-08-11 15:16] LABS: Anion Gap 19 (5-15); BUN 14 mg/dL (4-19); BUN/Creat Ratio 19.2 RATIO (10-20); Calcium,Total 9.0 mg/dL (7.6-11.0); Carbon Dioxide 16.4 mmol/L (21.0-32.0); Chloride 94 mmol/L (98-108); Estimated Creatinine Clearance 123.80 ml/min (50-250); Glucose 527 mg/dL (70-99); Potassium 4.2 mmol/L (3.3-5.1)
[2025-08-11] MEDS: Ampicillin/Sulbactam 3 GM in 0.9% Normal Saline (100mL MB+) 100 ML IV (15:28)
[2025-08-11 15:37] LABS: Mucous, Urine 0 SEEN /hpf (<or=2+)
[2025-08-11 15:46] LABS: Color, Urine Straw (Yellow); Glucose, Dipstick 1000 mg/dl (Normal); Leukocyte Esterase-Dipstick 100 /ul (Negative); Nitrite-Dipstick Negative (Negative); Occult Blood-Urine 50 /ul (Negative); Protein-Dipstick 30 mg/dl (Negative); Specific Gravity, Urine 1.015 (1.002-1.030); Urine Bilirubin Dipstick Negative (Negative)
[2025-08-11] MEDS: proMETHazine 25 MG/ML Syringe 6.25 MG IM (15:49)
[2025-08-11 15:53] LABS: Ketone-Dipstick 150 mg/dl (Negative)
[2025-08-11] MEDS: Vancomycin HCl 2,000 MG in 0.9% Normal Saline (500mL Bag) 500 ML 250 MG IV (16:32)
[2025-08-11 16:35] LABS: VBG BASE EXCESS -2 mmol/L (-1.0-3.5); VBG PO2 32 mmHg (25-40); VBG SO2 67 % (50-70); VBG TCO2 23 mmol/L (23-33)
[2025-08-11 16:35] LABS: Red Blood Cells-Urine 5-10 SEEN /hpf (0-5); Squamous Epithelial Cells - UA 0-5 SEEN /hpf (5-10)
[2025-08-11 16:38] LABS: BETA-HYDROXYBUTYRATE 2.6 mmol/L (0.0-0.3)
[2025-08-11] MEDS: 0.9% Normal Saline (1000mL) 1,000 ML 999 ML IV (17:58)
[2025-08-11] MEDS: Insulin Lispro 10 UNIT in Syringe 0 ML 6 UNIT IV (18:09)
[2025-08-11 18:42] LABS: CRP 112.00 mg/L (0.0-3.0)
--- OUTSIDE RECORDS SUMMARY | 2025-08-11 18:48 | XMS RPT_ITS | CCD ---
Author Organization [facility] Care Team Providers Care Area Counselor Name Role Phone BEATRIZ BLAIR Attending Unavailable BEATRIZ BLAIR Primary Care Unavailable BEATRIZ BLAIR Admitting Unavailable Kevan MURRY, Shakira Ramírez Primary Care Provider Tomy MURRY, Jean Claude Robbins Primary Care Provider Tomy MURRY, Jean Claude Primary Care Provider Tomy MURRY, Jean Claude Robbins Primary Care Provider Jean Claude Huitron MD Primary Care Provider Jean Claude Huitron MD Primary Care Provider JEAN CLAUDE HUITRON Primary Care Unavailable T[facility], [facility] Primary Care Unavailable SONIDO HUITRONER Referring Unavailable CARVALHO, KECIA A Admitting Unavailable MAIA, KECIA A Attending Unavailable ROXANA MOORE Attending Unavailable TOMY, [facility] Primary Care Unavailable MAIA KECIA A Referring Unavailable ROXANA MOORE Attending Unavailable ROXANA MOORE Referring Unavailable [facility] Unavailable ROXANA MOORE Admitting Unavailable RICHARDLEY CHRISTPACOER Referring Unavailable RICHARDLEY, CHRISTOPHER Primary Care Unavailable RICHARDLEY CHRISTPACOER Referring Unavailable ROXANA MOORE Attending Unavailable RICHARDLEY, [facility] Primary Care Unavailable RICHARDLEY, CHRISTOPHER Primary Care Unavailable CARVALHO, KECIA A Attending Unavailable MAIA, KECIA A Referring Unavailable SELF, SELF Referring Unavailable MAIA, KECIA A Attending Unavailable TOMY, [facility], [facility] Primary Care Unavailable JOSE WEINSTEIN Attending Unavailable TOMY, LOYDAOPHER B Primary Care Unavailab MARIA DEL CARMEN Hidalgo MD Attending Unavailable TOMY, LOYDAOPH B Primary Care Unavailab carlos HUITRON MD, [place] Primary Care Physician [phone] JEAN CLAUDE HUITRON Referring Unavailab JEAN CLAUDE Huang Primary Care Unavailab carlos Huitron MD, Jean Claude Robbins Primary Care Provider RIKI COATES Attending Unavailable TOMY MURRY, [place] Primary Care Unavaila avila MYERS MD, MYA Alcantar Attending Unavail able TOMY MURRY, [place] Primary Care Unavaila avila NANCE MD, DR MARTHA FALL Attending Roseanna HUITRON MD, [place] Primary Care Unavaila avila MONTANO MD, CAPRICE Cheng Attending Unavailable TOMY MURRY, [place] Primary Care Unavaila ble [employer] INSTRUMENTATION AND CONTROLS TECHNICIAN.Irlanda BLACKWOOD Unavailable Grace Stinson Attending Unavailable Sosa, Achintya Admitting [...] Attending Unavailable Richardley, Joaquin Primary Care Unavailable Sosa, Achintya Admitting Unavailable Sosa, Achintya Consulting Unavailable Jorge Frazier Attending Unavailable Richardley, Joaquin Primary Care Unavailable Tristin Solo Consulting Unavailable Fran Daley Consulting Unavailable JEAN CLAUDE HUITRON B Primary Care Unavailab le JEAN CLAUDE HUITRON B Primary Care Unavailab le PODIRLANDA MURO Attending Unavailable JEAN CLAUDE HUITRON Attending Unavailab JEAN CLAUDE Huang Primary Care Unavailab JEAN CLAUDE Huang Referring Unavailab le JEAN CLAUDE HUITRON B Primary Care Unavailab le JEAN CLAUDE HUITRON B Primary Care Unavailab le [place] INSTRUMENTATION AND CONTROLS TECHNICIAN.Mary Ellen BLACKWOOD Unavailable Allergies Allergy Classification Reported Allergen(s) Allergy Type Date of Onset Reaction(s) Facility dulaglutide (2 sources) dulaglutide Drug Allergy 6 Vomiting [facility] metFORMIN (2 sources) metFORMIN Drug Allergy 5 Diarrhea [facility] (20 sources) dulaglutide; Translations: [DULAGLUTIDE] Drug Allergy 6 Vomiting, Nausea and Vomiting [facility] (20 sources) metFORMIN; Translations: [METFORMIN] Drug Allergy 5 Diarrhea, Nausea and Vomiting [facility] (1 source) metFORMIN Drug Allergy 5 [facility] Repository Medications Current Medications Medication Drug [...] hyperglycemia, with long-term current use of insulin ([facility]) 1 Device four times daily. 1 Each 04/06/2024 Active Start: 04-06-2024 Blood-Glucose Meter,Continuous (FREESTYLE KERRI 3 READER) misc Indications: Type 2 diabetes mellitus with hyperglycemia, with long-term current use of insulin ([facility]) 1 Device four times daily. 1 Each 0 04/06/2024 Active Blood-Glucose Sensor (FREESTYLE KERRI 3 SENSOR) [facility] (20 sources) Start: 04-06-2024 Blood-Glucose Sensor (FREESTYLE KERRI 3 SENSOR) [facility] Indications: Type 2 diabetes mellitus with hyperglycemia, with long-term current use of insulin ([facility]) 1 Device every 2 weeks. 2 Each [...] on above: Take 1 capsule by mo [facility] four times daily for 7 days. ciprofloxacin [...] Comment on above: Take 1 tablet by [facility] twice daily for 7 days. cyclobenzaprine hydrochloride [...] Start: 05-18-2021 take 1 capsule by mo [facility] three times daily gabapentin 100 MG capsule [...] hyperglycemia, with long-term current use of insulin ([facility]) Inject 36 Units subcutaneously three times a [...] route As directed PRN for Opioid Reversal. [place] into the nose as directed. Call 911. [...] Comment on above: Take 2 tablets by [facility] once daily for 4 days. Take daily [...] 03/03/2022 06/01/2022 Active take 2 tablets by [facility] at bedtime rOPINIRole 0.5 MG tablet Take 1 mg by mouth at bedtime. 0 Active Comment on above: Take 1 tablet by [facility] daily at bedtime. sodium chloride 0.154 meq/ml [...] every six hours as needed for pain [place] 325- 5 mg oral tablet Dose = [...] sources) Start: 09-11-2021 End: 06-08-2022 Start: 09-11-2021 [id number] 200 actuat albuterol 0.09 mg/actuat metered dose [...] breath. Blood-Glucose Meter (ACCU-CHEK KENNY PLUS METER) [facility] (20 sources) Start: 10-10-2019 End: 05-02-2024 Blood-Glucose Meter (ACCU-CHEK KENNY PLUS METER) [facility] Indications: Uncontrolled type 2 diabetes mellitus with hyperglycemia (HCC) Test glucose twice daily, 250.02. Insulin yes. 1 Each 0 10/10/2019 05/02/2024 Discontinued Start: 10-10-2019 Blood-Glucose Meter (ACCU-CHEK KENNY PLUS METER) [facility] Indications: Uncontrolled type 2 diabetes mellitus with [...] on above: Take 1 capsule by mo [facility] twice daily for 10 days. Take 1 [...] up to 3 days. polyethylene glycol 3350 166432 mg / potassium chloride 2970 mg / sodium bicarbonate 6740 mg / sodium chloride 5860 mg / sodium sulfate 11456 mg powder for oral solution (5 sources) Osmotic Laxative Start: 03-08-20 End: 06-08-20 PEG 3668-NOo-QzUig-NaCl- NaSulf (peg 3350 w/electrolytes) 236 g Recon [...] Yon 01-05-2025 Abdomen/Pelvis W IV Cont ONLY [facility] Services [address] [place] [address] Abdomen/Pelvis W IV Cont ONLY MR#: [id number] Acct: [id number] Name: TRICE ZAMBRANO Rep #: [id number] : 1980 F 44 From: Kannan Acosta PCP: Dr. Joaquin Huitron MD Status: REG ER Study: Abdomen/Pelvis W IV Cont ONLY Date of Exam: Exam# [id number] Ordering Dr: Jose Flores ENVIRONMENTAL SAFETY SPECIALIST-[place] PROCEDURE: ABDOMEN/PELVIS W IV CONT ONLY REASON [...] use of iterative reconstruction technique). Reading Location: [id number] CC: FARA Flores; Dr. Joaquin Huitron MD Rehabilitation Team Lead: Signed Normal [facility] CBC W/Diff, Automatedon 03 Absolute Lymph 2.30 X10 3/uL Normal 0.83-4.51 [facility] Comment on above: Performed By: #### L 300.3900, L500.4050, L501.5200, L500.2500, L501.9985, L100.0100, L501.9520, L500.3400, L501.2300 #### [facility] [address] [place], [address] Absolute Neut 5.5 X10 3/uL Normal 2.0-7.7 [facility] Comment on above: Performed By: #### L 300.3900, L500.4050, L501.5200, L500.2500, L501.9985, L100.0100, L501.9520, L500.3400, L501.2300 #### [facility] [address] [facility]. [place], [place], [id number] (342 Basophils/100 WBC (Bld) 0.6 % Normal 0-1 [facility] Comment on above: Performed By: #### L 300.3900, L500.4050, L501.5200, L500.2500, L501.9985, L100.0100, L501.9520, L500.3400, L501.2300 #### [facility] [address] [place], [address] Eosinophils/100 WBC (Bld) 2.3 % Normal 0-5 [facility] Comment on above: Performed By: #### L 300.3900, L500.4050, L501.5200, L500.2500, L501.9985, L100.0100, L501.9520, L500.3400, L501.2300 #### [facility] [address] [place], [address] Erythrocyte distribution width (RBC) [Ratio] 13.0 % Normal 11.6-14.6 [facility] Comment on above: Performed By: #### L 300.3900, L500.4050, L501.5200, L500.2500, L501.9985, L100.0100, L501.9520, L500.3400, L501.2300 #### [facility] [address] [facility] [place], [address] (801 Hematocrit (Bld) [Volume fraction] 40.4 % Normal 37-47 [facility] Comment on above: Performed By: #### L 300.3900, L500.4050, L501.5200, L500.2500, L501.9985, L100.0100, L501.9520, L500.3400, L501.2300 #### [facility] [address] [facility] [place], [address] (257 Hemoglobin (Bld) [Mass/Vol] 13.6 g/dL Normal 12.0-15.0 [facility] Comment on above: Performed By: #### L 300.3900, L500.4050, L501.5200, L500.2500, L501.9985, L100.0100, L501.9520, L500.3400, L501.2300 #### [facility] [address] [facility] [place] [place], [address] (697 IG% 0.700 Normal 0.0-0.9 [facility] Comment on above: Result Comment: IG% - Immature Granulocytes (promyelocytes, myelocytes and metamyelocytes) > 1% indicates that a LEFT SHIFT is Present. Performed By: #### L 300.3900, L500.4050, L501.5200, L500.2500, L501.9985, L100.0100, L501.9520, L500.3400, L501.2300 #### [facility] [address] [facility] [place], [address] Lymphocytes/100 WBC (Bld) 26.4 % Normal 19-41 [facility] Comment on above: Performed By: #### L 300.3900, L500.4050, L501.5200, L500.2500, L501.9985, L100.0100, L501.9520, L500.3400, L501.2300 #### [facility] [address] [place], [address] MCH (RBC) [Entitic mass] 29.6 pg Normal 27.0-32.0 [facility] Comment on above: Performed By: #### L 300.3900, L500.4050, L501.5200, L500.2500, L501.9985, L100.0100, L501.9520, L500.3400, L501.2300 #### [facility] [address] [facility] [place], [address] MCHC (RBC) [Mass/Vol] 33.7 g/dL Normal 32-36 [facility] Comment on above: Performed By: #### L 300.3900, L500.4050, L501.5200, L500.2500, L501.9985, L100.0100, L501.9520, L500.3400, L501.2300 #### [facility] [address] [facility] [place], [address] MCV (RBC) [Entitic vol] 88.0 fL Normal 81-99 [facility] Comment on above: Performed By: #### L 300.3900, L500.4050, L501.5200, L500.2500, L501.9985, L100.0100, L501.9520, L500.3400, L501.2300 #### [facility] [address] [place], [address] Monocytes/100 WBC (Bld) 6.9 % Normal 0-10 [facility] Comment on above: Performed By: #### L 300.3900, L500.4050, L501.5200, L500.2500, L501.9985, L100.0100, L501.9520, L500.3400, L501.2300 #### [facility] [address] [place], [address] Neutrophils/100 WBC (Bld) 63.1 % Normal 47-70 [facility] Comment on above: Performed By: #### L 300.3900, L500.4050, L501.5200, L500.2500, L501.9985, L100.0100, L501.9520, L500.3400, L501.2300 #### [facility] [address] [place], [address] Nucleated RBC (Bld) [#/Vol] 0 10*3/uL Normal 0-5 [facility] Comment on above: Performed By: #### L 300.3900, L500.4050, L501.5200, L500.2500, L501.9985, L100.0100, L501.9520, L500.3400, L501.2300 #### [facility] [address] [place], [address] Platelet mean volume (Bld) [Entitic vol] 11.7 fL Normal 6.2-12.0 [facility] Comment on above: Performed By: #### L 300.3900, L500.4050, L501.5200, L500.2500, L501.9985, L100.0100, L501.9520, L500.3400, L501.2300 #### [facility] [address] [place], [address] Platelets (Bld) [#/Vol] 213 10*3/uL Normal 150-450 [facility] Comment on above: Performed By: #### L 300.3900, L500.4050, L501.5200, L500.2500, L501.9985, L100.0100, L501.9520, L500.3400, L501.2300 #### [facility] [address] [place], [address] RBC (Bld) [#/Vol] 4.59 10*6/uL Normal 4.2-5.4 [facility] Comment on above: Performed By: #### L 300.3900, L500.4050, L501.5200, L500.2500, L501.9985, L100.0100, L501.9520, L500.3400, L501.2300 #### [facility] [address] [place], [address] RDW SD 41.4 fl Normal 35.1-43.9 [facility] Comment on above: Performed By: #### L 300.3900, L500.4050, L501.5200, L500.2500, L501.9985, L100.0100, L501.9520, L500.3400, L501.2300 #### [facility] [address] [place], [address] WBC (Bld) [#/Vol] 8.7 10*3/uL Normal 4.4-11.0 [facility] Comment on above: Performed By: #### L 300.3900, L500.4050, L501.5200, L500.2500, L501.9985, L100.0100, L501.9520, L500.3400, L501.2300 #### [facility] [address] [place], [address] Comprehensive Metabolic Prof ilon 01-05-2025 Albumin/Globulin [Mass ratio] 1.2 {ratio} Normal 0.9-2.4 [facility] Comment on above: Performed By: #### L 300.3900, L500.4050, L501.5200, L500.2500, L501.9985, L100.0100, L501.9520, L500.3400, L501.2300 #### [facility] [address] [place], [address] ALK PHOS 84 U/L Normal 35-104 [facility] Comment on above: Performed By: #### L 300.3900, L500.4050, L501.5200, L500.2500, L501.9985, L100.0100, L501.9520, L500.3400, L501.2300 #### [facility] [address] [place], [address] ALT [Catalytic activity/Vol] 15 U/L Normal <=34 [facility] Comment on above: Performed By: #### L 300.3900, L500.4050, L501.5200, L500.2500, L501.9985, L100.0100, L501.9520, L500.3400, L501.2300 #### [facility] [address] [place], [address] AST [Catalytic activity/Vol] 17 U/L Normal <=31 [facility] Comment on above: Result Comment: Hemo lysis present, Results??could be affected. ?? Performed By: #### L 300.3900, L500.4050, L501.5200, L500.2500, L501.9985, L100.0100, L501.9520, L500.3400, L501.2300 #### [facility] [address] [place], [address] Bilirubin [Mass/Vol] 0.20 mg/dL Normal 0.00-1.30 [facility] Comment on above: Performed By: #### L 300.3900, L500.4050, L501.5200, L500.2500, L501.9985, L100.0100, L501.9520, L500.3400, L501.2300 #### [facility] [address] [place], [address] Globulin (S) [Mass/Vol] 3.2 g/dL Normal 2.2-4.2 [facility] Comment on above: Performed By: #### L 300.3900, L500.4050, L501.5200, L500.2500, L501.9985, L100.0100, L501.9520, L500.3400, L501.2300 #### [facility] [address] [place], [address] Albumin [Mass/Vol] 3.8 g/dL Normal 3.5-5.0 [facility] Comment on above: Performed By: #### L 300.3900, L500.4050, L501.5200, L500.2500, L501.9985, L100.0100, L501.9520, L500.3400, L501.2300 #### [facility] [address] [place], [address] Anion gap [Moles/Vol] 12 mmol/L Normal 5-15 [facility] Comment on above: Performed By: #### L 300.3900, L500.4050, L501.5200, L500.2500, L501.9985, L100.0100, L501.9520, L500.3400, L501.2300 #### [facility] [address] [place], [address] BUN/CRE 48.2 RATIO High 10-20 [facility] Comment on above: Performed By: #### L 300.3900, L500.4050, L501.5200, L500.2500, L501.9985, L100.0100, L501.9520, L500.3400, L501.2300 #### [facility] [address] [place], [address] Calcium [Mass/Vol] 9.4 mg/dL Normal 7.6-11.0 [facility] Comment on above: Performed By: #### L 300.3900, L500.4050, L501.5200, L500.2500, L501.9985, L100.0100, L501.9520, L500.3400, L501.2300 #### [facility] [address] [place], [address] Chloride [Moles/Vol] 105 mmol/L Normal 96-108 [facility] Comment on above: Performed By: #### L 300.3900, L500.4050, L501.5200, L500.2500, L501.9985, L100.0100, L501.9520, L500.3400, L501.2300 #### [facility] [address] [place], [address] CO2 [Moles/Vol] 18.6 mmol/L Low 22.0-29.0 [facility] Comment on above: Performed By: #### L 300.3900, L500.4050, L501.5200, L500.2500, L501.9985, L100.0100, L501.9520, L500.3400, L501.2300 #### [facility] [address] [place], [address] Creatinine [Mass/Vol] 0.76 mg/dL Normal 0.70-1.20 [facility] Comment on above: Performed By: #### L 300.3900, L500.4050, L501.5200, L500.2500, L501.9985, L100.0100, L501.9520, L500.3400, L501.2300 #### [facility] [address] [place], [address] ECRCL 125.90 ml/min Normal 50-250 [facility] Comment on above: Performed By: #### L 300.3900, L500.4050, L501.5200, L500.2500, L501.9985, L100.0100, L501.9520, L500.3400, L501.2300 #### [facility] [address] [place], [place], [id number] GFR/1.73 sq M.predicted among non-blacks MDRD (S/P/Bld) [Vol rate/Area] 99 mL/min/{1.73_m2} Normal >60 [facility] Comment on above: Result Comment: mL/m in/1.73m2 CKD-EPI Creatinine Equation (2020) Performed By: #### L 300.3900, L500.4050, L501.5200, L500.2500, L501.9985, L100.0100, L501.9520, L500.3400, L501.2300 #### [facility] [address] [place], [address] Glucose [Mass/Vol] 179 mg/dL High 70-99 [facility] Comment on above: Performed By: #### L 300.3900, L500.4050, L501.5200, L500.2500, L501.9985, L100.0100, L501.9520, L500.3400, L501.2300 #### [facility] [address] [place], [place], [id number] Potassium [Moles/Vol] 4.0 mmol/L Normal 3.3-5.1 [facility] Comment on above: Result Comment: Hemo lysis present, Results??could be affected. ?? Performed By: #### L 300.3900, L500.4050, L501.5200, L500.2500, L501.9985, L100.0100, L501.9520, L500.3400, L501.2300 #### [facility] [address] [place], [address] Sodium [Moles/Vol] 136 mmol/L Normal 133-145 [facility] Comment on above: Performed By: #### L 300.3900, L500.4050, L501.5200, L500.2500, L501.9985, L100.0100, L501.9520, L500.3400, L501.2300 #### [facility] [address] [facility] [place], [address] T PROT 7.1 g/dL Normal 5.9-8.4 [facility] Comment on above: Performed By: #### L 300.3900, L500.4050, L501.5200, L500.2500, L501.9985, L100.0100, L501.9520, L500.3400, L501.2300 #### [facility] [address] [place], [address] Urea nitrogen [Mass/Vol] 37 mg/dL High 4-19 [facility] Comment on above: Performed By: #### L 300.3900, L500.4050, L501.5200, L500.2500, L501.9985, L100.0100, L501.9520, L500.3400, L501.2300 #### [facility] [address] [place], [address] Emergency Department Summary on 01-05-2025 Emergency Department Summary [facility] Medical Records Department [address] [place] [id number] Emergency Department Summary 01/05/25 MR#: [id number] Acct: [id number] Name: TRICE ZAMBRANO Rep #: [id number] : 1980 44 From: Myles Cabrera DO [...] getting worse over the last 3 days. [facility] Medical History Physical exam, pre-employment History of [...] pustules. Backs (more content not included)... Normal [facility] Lipaseon 01-05-2025 Lipase [Catalytic activity/Vol] 56 U/L Normal 13-75 [facility] Comment on above: Result Comment: Dominic gong note: LIPASE revised reference range effective 23. New Lipase methodology. Expected to produce lower values than the previous assay method. NEW Reference Range: 13 - 75 U/L Performed By: #### L 300.3900, L500.4050, L501.5200, L500.2500, L501.9985, L100.0100, L501.9520, L500.3400, L501.2300 #### [facility] [address] [place], [address] ,Urineon 01-05-2025 Beta HCG ( test) Ql (U) Negative Normal [facility] Comment on above: Result Comment: Very dilute urine specimens, as indicated by a low specific gravity, may not contain food products sales representative levels of hCG. If is still suspected, a first morning urine specimen should be collected 48 hours later and tested. Performed By: #### L 501.8820 #### [facility] [address] [place], [address] Urinalysis, Completeon 01-05 AMORPHOUS 1+ URATE Normal [facility] Comment on above: Order Comment: Comme nts: Trough to be drawn 30 mins prior to scheduled dose 0700 Performed By: #### L 501.8820 #### [facility] [address] [place], [address] EPI,SQUAMOUS 0-5 SEEN Normal 5-10 [facility] Comment on above: Order Comment: Comme nts: Trough to be drawn 30 mins prior to scheduled dose 0700 Performed By: #### L 501.8820 #### [facility] [address] [place], [address] RBC 0-5 SEEN Normal 0-5 [facility] Comment on above: Order Comment: Comme nts: Trough to be drawn 30 mins prior to scheduled dose 0700 Performed By: #### L 501.8820 #### [facility] [address] [place], [address] WBC 10-25 SEEN Normal 0-5 [facility] Comment on above: Order Comment: Comme nts: Trough to be drawn 30 mins prior to scheduled dose 0700 Performed By: #### L 501.8820 #### [facility] [address] [place], [address] BACTERIA 0 SEEN Normal None Seen [facility] Comment on above: Order Comment: Comme nts: Trough to be drawn 30 mins prior to scheduled dose 0700 Performed By: #### L 501.8820 #### [facility] [address] [place], [address] Mucus Ql (Urine sed) 0 SEEN Normal [facility] Comment on above: Order Comment: Comme nts: Trough to be drawn 30 mins prior to scheduled dose 0700 Performed By: #### L 501.8820 #### [facility] [address] [place], [address] CNOVon 10-22-2024 [facility] -------- TRICE ZAMBRANO ([id number]) 1980 F Date Time Provider Department 10/22/24 7:20 AM [facility] During your visit today, we recorded [...] fasting 100-162 range with majority <140. Before -997 with Majority around the 130-160s. Patient's last HgA1C was Hemoglobin A1C (%) Date Value 04/06/2024 8.3 08/03/2023 7.0 07/15/2021 6.9 06/01/2021 7.5 ) Last Ophthalmology exam was within the past 6 months and was negative for Diabetic Retinopathy. [facility]. Last Podiatry exam was within the [...] File Prior to Visit Medication Sig Insulin [place], Disposable, (BD ULTRA-FINE VINOD PEN NEEDLE) 32 [...] glucose twice daily, 250.02. Insulin yes. Insulin [place], Disposable, (BD ULTRA-FINE VINOD PEN NEEDLE) 32 [...] pain, le (more content not included)... Normal [facility] 10-22-2024 JAISONN Telephone (JAWS) -------- TRICE ZAMBRANO ([id number]) 1980 F Date Time Provider Department 10/22/24 MARIO ALBERTOLOGIRLANDA RODRIGUES During your visit today, we recorded the following information about you: Podlogar, Irlanda, INSTRUMENTATION AND CONTROLS TECHNICIAN.JAISON 10/22/2024 4:34 PM Signed Prescription refills [...] by mouth daily at bedtime. - Insulin [place], Disposable, (BD ULTRA-FINE VINOD PEN NEEDLE) 32 gauge x 5/32 Inject 100 Each subcutaneously four times daily. - Lancets (ACCU-CHEK SOFTCLIX LANCETS) Test blood sugar(s) 4 times daily and as needed. Dx: 250.02. Insulin: Yes - Blood-Glucose Meter (ACCU-CHEK KENNY PLUS METER) Test glucose twice daily, 250.02. Insulin yes. - Insulin [place], Disposable, (BD ULTRA-FINE VINOD PEN NEEDLE) 32 [...] Encounter Status:Closed by BRITNEY ARCE on 10/22/24 [facility] CNOVon 09-25-2024 CNOV Office Visit (FAMPWS ) -------- TRICE ZAMBRANO ([id number]) 1980 F Date Time Provider Department 09/25/24 7:20 AM IRLANDA HOGAN During your visit today, we recorded the following information about you: Pulse Respiration Blood pressure Weight 82/minute 16/minute 136/88 110.6 kg Irlanda Hogan APRN.CNP 09/25/2024 8:29 AM Signed 09/25/2024 Patient presents with: Hospital F/U: TCM; [facility] SUBJECTIVE: This is a 44 year old that is here today for Above Complaints, HOSPITAL/ER FOLLOW UP: Reason for visit: perianal pain and swelling Which facility: [facility] Date of visit: 09/16/2024-09/18/2024 Diagnosis: rectal abscess [...] reviewed TRANSITION CARE MANAGEMENT (TCM) INITIAL CONTACT Cosmetic Chemist Outreach Provider Action/FYI Initial contact with patient post discharge, spoke to patient. Patient identified by name and . TRANSITION CARE MANAGEMENT INITIAL OUTREACH DOCUMENTATION: 09/19/2024 Date of Outreach: Date of Discharge 09/18/2024 SUMMARY: -Pt discharged from [facility] on 09/18/24. -Admitted for: Rectal Abcess Do [...] MEDICATIONS Current Outpatient Medications Medication Sig Insulin [place], Disposable, (BD ULTRA-FINE VINOD PEN NEEDLE) 32 [...] glucose twice daily, 250.02. Insulin yes. Insulin [place], Disposable, (BD ULTRA-FINE VINOD PEN NEEDLE) 32 [...] appearing, a (more content not included)... Normal [facility] Culture, Blood (WB)on 2023 CUB Blood cultures x2, f rom two different sites No growth in 5 days. Normal [facility] Comment on above: Performed By: #### L 501.8820 #### [facility] Laboratory [address] [place], [address] Urine Cultureon 09-19-2024 URC Streptococcus agalac tiae (B) Hilton Count 11,000-25,000 Streptococcus agalactiae (B): REACTION Ampicillin Islt BLANQUITA <=0.25 Penicillin G Islt BLANQUITA <=0.06 S cefTRIAXone Islt BLANQUITA <=0.12 S Clindamycin Islt BLANQUITA <=0.25 S Clindamycin.induced Susc Islt NEG Linezolid Islt BLANQUITA <=2 S Vancomycin Islt BLANQUITA 0.5 S Normal [facility] Comment on above: Performed By: #### L 300.3900, L500.4050, L501.5200, L500.2500, L501.9985, L100.0100, L501.9520, L500.3400, L501.2300 #### [facility] [address] [place], [place], [id number] Bedside Glucoseon 09-18-2024 FINGERSTICK GLU 176 mg/dL High 74-106 [facility] Comment on above: Result Comment: EMMA GEMENT OF PATIENT CARE PER NURSING PROTOCOL Performed By: #### L 501.8820 #### [facility] [address] [place], [place], [address] FINGERSTICK GLU 191 mg/dL High 74-106 [facility] Comment on above: Result Comment: EMMA GEMENT OF PATIENT CARE PER NURSING PROTOCOL Performed By: #### L 300.3900, L500.4050, L501.5200, L500.2500, L501.9985, L100.0100, L501.9520, L500.3400, L501.2300 #### [facility] [address] [place], [place], [address] Discharge Instructionon 09-07 Discharge Instruction [facility] Medical Records Department [address] [place] [address] Instructions for Home/Discharge Instructions 09/18/24 1056 MR#: [id number] Acct: [id number] Name: TRICE ZAMBRANO Rep #: [id number] : 1980 44 From: Jorge Frazier DO [...] PO QHS Referrals / Follow Up: Joaquin Huirton MD [Primary Care Provider] - In 1 Week Disposition Disposition (needs filled in before D/C Order can be placed): Home, Self Care 09/18/24 1101 Jorge Freddie BLOCK CC: Dr. Ken Sosa MD; Dr. Joaquin Huitron MD; Dr. Fran Daley MD; Dr. Tristin Solo MD Signed Normal [facility] Vancomycin, Trough Levelon 11-18-2023 VANCO, TROUGH 10.3 ug/mL Normal 5.0-15.0 [facility] Comment on above: Order Comment: Comme nts: Trough to be drawn 30 mins prior to scheduled dose 0700 Result Comment: VANC OMYCIN STANDARED DRUG THERAPY TROUGH LEVEL: 5.0 - 15.0 mg/L VANCOMYCIN HIGH INTENSITY THERAPY TROUGH LEVEL: 15.0 - 20.0 mg/L High Intensity therapy recommended for serious life threatening infections include: - Meningitis -Endocarditis -Pneumonia (Ventilator/Healtcare Associated) -Sepsis PLEASE CONTACT PHARMACY SERVICES (#[id number]) FOR INTERPRETATION OF RESULTS. Performed By: #### L 501.8820 #### [facility] [address] [place], [address] Basic Metabolic Profile (BMP )on 09-17-2024 BUN/CRE 18.9 RATIO Normal - [facility] Comment on above: Performed By: #### L 300.3900, L500.4050, L501.5200, L500.2500, L501.9985, L100.0100, L501.9520, L500.3400, L501.2300 #### [facility] [address] [place], [address] CA,Total 8.3 mg/dL Low 8.5-10.1 [facility] Comment on above: Performed By: #### L 300.3900, L500.4050, L501.5200, L500.2500, L501.9985, L100.0100, L501.9520, L500.3400, L501.2300 #### [facility] [address] [place], [address] Chloride [Moles/Vol] 110 mmol/L High 98-107 [facility] Comment on above: Performed By: #### L 300.3900, L500.4050, L501.5200, L500.2500, L501.9985, L100.0100, L501.9520, L500.3400, L501.2300 #### [facility] [address] [place], [place], [phone] (737) CO2 [Moles/Vol] 24.0 mmol/L Normal 21.0-32.0 [facility] Comment on above: Performed By: #### L 300.3900, L500.4050, L501.5200, L500.2500, L501.9985, L100.0100, L501.9520, L500.3400, L501.2300 #### [facility] [address] [place], [address] Creatinine [Mass/Vol] 0.84 mg/dL Normal 0.55-1.02 [facility] Comment on above: Result Comment: The validity of the calculated GFR GFRAA in patients over 70 years has not been determined. Clinical correlation is essential. Performed By: #### L 300.3900, L500.4050, L501.5200, L500.2500, L501.9985, L100.0100, L501.9520, L500.3400, L501.2300 #### [facility] [address] [place], [address] ECRCL 98.24 ml/min Normal [facility] Comment on above: Performed By: #### L 300.3900, L500.4050, L501.5200, L500.2500, L501.9985, L100.0100, L501.9520, L500.3400, L501.2300 #### [facility] [address] [place], [place], [phone] ([phone]) EST GFR - AA 94 mL/min Normal >60 [facility] Comment on above: Result Comment: Afri can Norwegian GFR Calc Performed By: #### L 300.3900, L500.4050, L501.5200, L500.2500, L501.9985, L100.0100, L501.9520, L500.3400, L501.2300 #### [facility] [address] [place], [address] GAP 6 Normal 5-15 [facility] Comment on above: Performed By: #### L 300.3900, L500.4050, L501.5200, L500.2500, L501.9985, L100.0100, L501.9520, L500.3400, L501.2300 #### [facility] [address] [place], [place], [phone] (290) GFR/1.73 sq M.predicted among non-blacks MDRD (S/P/Bld) [Vol rate/Area] 78 mL/min/{1.73_m2} Normal >60 [facility] Comment on above: Result Comment: Non- GFR Calc Performed By: #### L 300.3900, L500.4050, L501.5200, L500.2500, L501.9985, L100.0100, L501.9520, L500.3400, L501.2300 #### [facility] [address] [place], [place], [phone] Glucose [Mass/Vol] 166 mg/dL High 74-106 [facility] Comment on above: Result Comment: Fast ing Glucose result greater than or equal to 126 mg/dL suggests DIABETES MELLITUS per A.D.A. criteria. Performed By: #### L 300.3900, L500.4050, L501.5200, L500.2500, L501.9985, L100.0100, L501.9520, L500.3400, L501.2300 #### [facility] [address] [place], [place], [phone] ([phone]) Potassium [Moles/Vol] 4.0 mmol/L Normal 3.5-5.1 [facility] Comment on above: Performed By: #### L 300.3900, L500.4050, L501.5200, L500.2500, L501.9985, L100.0100, L501.9520, L500.3400, L501.2300 #### [facility] [address] [place], [place], [phone] (318) Sodium [Moles/Vol] 140 mmol/L Normal 136-145 [facility] Comment on above: Performed By: #### L 300.3900, L500.4050, L501.5200, L500.2500, L501.9985, L100.0100, L501.9520, L500.3400, L501.2300 #### [facility] [address] [place], [place], [phone] Urea nitrogen [Mass/Vol] 16 mg/dL Normal 7-18 [facility] Comment on above: Performed By: #### L 300.3900, L500.4050, L501.5200, L500.2500, L501.9985, L100.0100, L501.9520, L500.3400, L501.2300 #### [facility] [address] [place], [place], [phone] Bedside Glucoseon 09-17-2024 FINGERSTICK GLU 246 mg/dL High 74-106 [facility] Comment on above: Result Comment: EMMA GEMENT OF PATIENT CARE PER NURSING PROTOCOL Performed By: #### L 501.080 #### [facility] [address] [facility] [address] FINGERSTICK GLU 106 mg/dL Normal 74-106 [facility] Comment on above: Result Comment: EMMA GEMENT OF PATIENT CARE PER NURSING PROTOCOL Performed By: #### L 501.8820 #### [facility] [address] [place] [address] FINGERSTICK GLU 102 mg/dL Normal 74-106 [facility] Comment on above: Result Comment: EMMA GEMENT OF PATIENT CARE PER NURSING PROTOCOL Performed By: #### L 501.080 #### [facility] [address] [place] [address] FINGERSTICK GLU 102 mg/dL Normal 74-106 [facility] Comment on above: Result Comment: EMMA GEMENT OF PATIENT CARE PER NURSING PROTOCOL Performed By: #### L 300.3900, L500.4050, L501.5200, L500.2500, L501.9985, L100.0100, L501.9520, L500.3400, L501.2300 #### [facility] [address] [place] [address] FINGERSTICK GLU 160 mg/dL High 74-106 [facility] Comment on above: Result Comment: EMMA GEMENT OF PATIENT CARE PER NURSING PROTOCOL Performed By: #### L 300.3900, L500.4050, L501.5200, L500.2500, L501.9985, L100.0100, L501.9520, L500.3400, L501.2300 #### [facility] [address] [facility] [address] FINGERSTICK GLU 162 mg/dL High 74-106 [facility] Comment on above: Result Comment: EMMA GEMENT OF PATIENT CARE PER NURSING PROTOCOL Performed By: #### L 300.3900, L500.4050, L501.5200, L500.2500, L501.9985, L100.0100, L501.9520, L500.3400, L501.2300 #### [facility] [address] [facility]. [place], [place], [phone] (318 CBC W/Diff, Automatedon 11-1 Absolute Lymph 1.60 X10 3/uL Normal 0.83-4.51 [facility] Comment on above: Performed By: #### L 300.3900, L500.4050, L501.5200, L500.2500, L501.9985, L100.0100, L501.9520, L500.3400, L501.2300 #### [facility] [address] [facility] [place], [address] ([phone] Absolute Neut 4.3 X10 3/uL Normal 2.0-7.7 [facility] Comment on above: Performed By: #### L 300.3900, L500.4050, L501.5200, L500.2500, L501.9985, L100.0100, L501.9520, L500.3400, L501.2300 #### [facility] [address] [facility] [place], [address] Basophils/100 WBC (Bld) 0.5 % Normal 0-1 [facility] Comment on above: Performed By: #### L 300.3900, L500.4050, L501.5200, L500.2500, L501.9985, L100.0100, L501.9520, L500.3400, L501.2300 #### [facility] [address] [facility] [place], [address] Eosinophils/100 WBC (Bld) 1.1 % Normal 0-5 [facility] Comment on above: Performed By: #### L 300.3900, L500.4050, L501.5200, L500.2500, L501.9985, L100.0100, L501.9520, L500.3400, L501.2300 #### [facility] [address] [facility] [place], [address] Erythrocyte distribution width (RBC) [Ratio] 13.0 % Normal 11.6-14.6 [facility] Comment on above: Performed By: #### L 300.3900, L500.4050, L501.5200, L500.2500, L501.9985, L100.0100, L501.9520, L500.3400, L501.2300 #### [facility] [address] [facility] [place], [address] (333) Hematocrit (Bld) [Volume fraction] 38.0 % Normal 37-47 [facility] Comment on above: Performed By: #### L 300.3900, L500.4050, L501.5200, L500.2500, L501.9985, L100.0100, L501.9520, L500.3400, L501.2300 #### [facility] [address] [facility] [place], [address] Hemoglobin (Bld) [Mass/Vol] 12.5 g/dL Normal 12.0-15.0 [facility] Comment on above: Performed By: #### L 300.3900, L500.4050, L501.5200, L500.2500, L501.9985, L100.0100, L501.9520, L500.3400, L501.2300 #### [facility] [address] [facility], [address] IG% 0.500 Normal 0.0-0.9 [facility] Comment on above: Result Comment: IG% - Immature Granulocytes (promyelocytes, myelocytes and metamyelocytes) > 1% indicates that a LEFT SHIFT is Present. Performed By: #### L 300.3900, L500.4050, L501.5200, L500.2500, L501.9985, L100.0100, L501.9520, L500.3400, L501.2300 #### [facility] [address] [place], [address] Lymphocytes/100 WBC (Bld) 24.3 % Normal 19-41 [facility] Comment on above: Performed By: #### L 300.3900, L500.4050, L501.5200, L500.2500, L501.9985, L100.0100, L501.9520, L500.3400, L501.2300 #### [facility] [address] [place], [address] MCH (RBC) [Entitic mass] 29.2 pg Normal 27.0-32.0 [facility] Comment on above: Performed By: #### L 300.3900, L500.4050, L501.5200, L500.2500, L501.9985, L100.0100, L501.9520, L500.3400, L501.2300 #### [facility] [address] [place], [address] MCHC (RBC) [Mass/Vol] 32.9 g/dL Normal 32-36 [facility] Comment on above: Performed By: #### L 300.3900, L500.4050, L501.5200, L500.2500, L501.9985, L100.0100, L501.9520, L500.3400, L501.2300 #### [facility] [address] [place], [address] MCV (RBC) [Entitic vol] 88.8 fL Normal 81-99 [facility] Comment on above: Performed By: #### L 300.3900, L500.4050, L501.5200, L500.2500, L501.9985, L100.0100, L501.9520, L500.3400, L501.2300 #### [facility] [address] [place], [address] Monocytes/100 WBC (Bld) 7.8 % Normal 0-10 [facility] Comment on above: Performed By: #### L 300.3900, L500.4050, L501.5200, L500.2500, L501.9985, L100.0100, L501.9520, L500.3400, L501.2300 #### [facility] [address] [place], [address] Neutrophils/100 WBC (Bld) 65.8 % Normal 47-70 [facility] Comment on above: Performed By: #### L 300.3900, L500.4050, L501.5200, L500.2500, L501.9985, L100.0100, L501.9520, L500.3400, L501.2300 #### [facility] [address] [place], [address] (160 Nucleated RBC (Bld) [#/Vol] 0 10*3/uL Normal 0-5 [facility] Comment on above: Performed By: #### L 300.3900, L500.4050, L501.5200, L500.2500, L501.9985, L100.0100, L501.9520, L500.3400, L501.2300 #### [facility] [address] [place], [address] Platelet mean volume (Bld) [Entitic vol] 11.9 fL Normal 6.2-12.0 [facility] Comment on above: Performed By: #### L 300.3900, L500.4050, L501.5200, L500.2500, L501.9985, L100.0100, L501.9520, L500.3400, L501.2300 #### [facility] [address] [place], [address] Platelets (Bld) [#/Vol] 200 10*3/uL Normal 150-450 [facility] Comment on above: Performed By: #### L 300.3900, L500.4050, L501.5200, L500.2500, L501.9985, L100.0100, L501.9520, L500.3400, L501.2300 #### [facility] [address] [place], [address] RBC (Bld) [#/Vol] 4.28 10*6/uL Normal 4.2-5.4 [facility] Comment on above: Performed By: #### L 300.3900, L500.4050, L501.5200, L500.2500, L501.9985, L100.0100, L501.9520, L500.3400, L501.2300 #### [facility] [address] [place], [place], [phone] (403) RDW SD 42.2 fl Normal 35.1-43.9 [facility] Comment on above: Performed By: #### L 300.3900, L500.4050, L501.5200, L500.2500, L501.9985, L100.0100, L501.9520, L500.3400, L501.2300 #### [facility] [address] [place], [address] WBC (Bld) [#/Vol] 6.6 10*3/uL Normal 4.4-11.0 [facility] Comment on above: Performed By: #### L 300.3900, L500.4050, L501.5200, L500.2500, L501.9985, L100.0100, L501.9520, L500.3400, L501.2300 #### [facility] [address] [place], [address] Comprehensive Metabolic Prof ilon 09-17-2024 Albumin/Globulin [Mass ratio] 1.0 {ratio} Normal 0.9-2.4 [facility] Comment on above: Performed By: #### L 300.3900, L500.4050, L501.5200, L500.2500, L501.9985, L100.0100, L501.9520, L500.3400, L501.2300 #### [facility] [address] [place], [address] Consultation - Infectious Dx on 09-17-2024 Consultation - Infectious Dx [facility] Medical Records Department [address] [place] [address] Consultation - Infectious Dx 09/17/24 1336 MR#: [id number] Acct: [id number] Name: TRICE ZAMBRANO Rep #: [id number] : 1980 44 From: Fran Daley MD PCP: Dr. Joaquin Huitron MD Status:ADM IN Location: [place] [address] Assessment Plan Assessment/Plan (1) Abscess or cellulitis [...] performed and neg except as noted above. [facility] Medical History Physical exam, pre-employment History of [...] % (Auto) 65.8, Lymph % (Auto) 24.3, Tensas % (Auto) 7.8, Eos % (Auto) 1.1, [...] Shirley Hunter (more content not included)... Normal [facility] Consultation - Surgicalon Consultation - Surgical [facility] Medical Records Department [address] [place] [address] Consultation - Surgical 09/17/24 0914 MR#: [id number] Acct: [id number] Name: KENYATRICE Maldonado Rep #: [id number] : 1980 44 From: Grace JOE PA-C PCP: Dr. Joaquin Huitron MD Status:ADM IN Location: MS3 AH140-2 Assessment Plan Assessment/Plan (1) Abscess or cellulitis [...] the abscess. She states she returned to [facility] and was admitted to ICU. She was [...] 198. Lactic acid 1.0. Glucose 319--> 166. [facility] Medical History Physical exam, pre-employment History of [...] addt'l complaint (more content not included)... Normal [facility] Hemoglobin A1con 09-17-2024 HbA1c (Bld) [Mass fraction] 12.7 % High 3.8-5.6 [facility] Comment on above: Result Comment: Norm al < 5.7 % Prediabetic 5.7 - 6.4 % Diabetic >or= 6.5 % Please note range changes. Performed By: #### L 501.080 #### [facility] [address] [place], [address] Liver Profileon 09-17-2024 Albumin [Mass/Vol] 2.9 g/dL Low 3.2-5.0 [facility] Comment on above: Performed By: #### L 300.3900, L500.4050, L501.5200, L500.2500, L501.9985, L100.0100, L501.9520, L500.3400, L501.2300 #### [facility] [address] [place], [address] ALK P 68 U/L Normal 45-117 [facility] Comment on above: Performed By: #### L 300.3900, L500.4050, L501.5200, L500.2500, L501.9985, L100.0100, L501.9520, L500.3400, L501.2300 #### [facility] [address] [place], [address] ALT [Catalytic activity/Vol] 30 U/L Normal 13-56 [facility] Comment on above: Performed By: #### L 300.3900, L500.4050, L501.5200, L500.2500, L501.9985, L100.0100, L501.9520, L500.3400, L501.2300 #### [facility] [address] [place], [address] AST [Catalytic activity/Vol] 18 U/L Normal 15-37 [facility] Comment on above: Performed By: #### L 300.3900, L500.4050, L501.5200, L500.2500, L501.9985, L100.0100, L501.9520, L500.3400, L501.2300 #### [facility] [address] [place], [address] (079) Bilirubin [Mass/Vol] 0.40 mg/dL Normal 0.20-1.00 [facility] Comment on above: Result Comment: For patients on eltrombopag therapy, use of Dimension [place] TBIL is not recommended. Performed By: #### L 300.3900, L500.4050, L501.5200, L500.2500, L501.9985, L100.0100, L501.9520, L500.3400, L501.2300 #### [facility] [address] [place], [address] (763) Bilirubin.direct [Mass/Vol] 0.09 mg/dL Normal 0.00-0.30 [facility] Comment on above: Performed By: #### L 300.3900, L500.4050, L501.5200, L500.2500, L501.9985, L100.0100, L501.9520, L500.3400, L501.2300 #### [facility] [address] [place], [address] (422) Globulin (S) [Mass/Vol] 3.0 g/dL Normal 2.2-4.2 [facility] Comment on above: Performed By: #### L 300.3900, L500.4050, L501.5200, L500.2500, L501.9985, L100.0100, L501.9520, L500.3400, L501.2300 #### [facility] [address] [place], [address] T PROT 5.9 g/dL Low 6.4-8.2 [facility] Comment on above: Performed By: #### L 300.3900, L500.4050, L501.5200, L500.2500, L501.9985, L100.0100, L501.9520, L500.3400, L501.2300 #### [facility] [address] [place], [address] Magnesiumon 09-17-2024 Magnesium [Mass/Vol] 1.9 mg/dL Normal 1.6-2.6 [facility] Comment on above: Performed By: #### L 300.3900, L500.4050, L501.5200, L500.2500, L501.9985, L100.0100, L501.9520, L500.3400, L501.2300 #### [facility] [address] [place], [address] Phosphoruson 09-17-2024 Phosphate [Mass/Vol] 3.7 mg/dL Normal 2.5-4.9 [facility] Comment on above: Performed By: #### L 300.3900, L500.4050, L501.5200, L500.2500, L501.9985, L100.0100, L501.9520, L500.3400, L501.2300 #### [facility] [address] [place], [place], [phone] Prothrombin Time w/INRon INR Coag (PPP) [Relative time] 1.0 {INR} Normal [facility] Comment on above: Performed By: #### L 300.3900, L500.4050, L501.5200, L500.2500, L501.9985, L100.0100, L501.9520, L500.3400, L501.2300 #### [facility] [address] [place], [address] (118) PT Coag (PPP) [Time] 13.2 s Normal 11.7-14.9 [facility] Comment on above: Performed By: #### L 300.3900, L500.4050, L501.5200, L500.2500, L501.9985, L100.0100, L501.9520, L500.3400, L501.2300 #### [facility] [address] [place], [address] Thyroid Stim Hormone (TSH)on 09-17-2024 TSH 1.450 uIU/mL Normal 0.358-3.740 [facility] Comment on above: Performed By: #### L 501.080 #### [facility] [address] [place], [address] Bedside Glucoseon 09-16-2024 FINGERSTICK GLU 359 mg/dL High 74-106 [facility] Comment on above: Result Comment: EMMA GEMENT OF PATIENT CARE PER NURSING PROTOCOL Performed By: #### L 300.3900, L500.4050, L501.5200, L500.2500, L501.9985, L100.0100, L501.9520, L500.3400, L501.2300 #### [facility] [address] [place], [address] FINGERSTICK GLU 371 mg/dL High 74-106 [facility] Comment on above: Result Comment: EMMA GEMENT OF PATIENT CARE PER NURSING PROTOCOL Performed By: #### L 501.8820 #### [facility] [address] [place], [address] CBC W/Diff, Automatedon 09-07 Absolute Lymph 1.60 X10 3/uL Normal 0.83-4.51 [facility] Comment on above: Performed By: #### L 300.3900, L500.4050, L501.5200, L500.2500, L501.9985, L100.0100, L501.9520, L500.3400, L501.2300 #### [facility] [address] [place], [address] Absolute Neut 5.1 X10 3/uL Normal 2.0-7.7 [facility] Comment on above: Performed By: #### L 300.3900, L500.4050, L501.5200, L500.2500, L501.9985, L100.0100, L501.9520, L500.3400, L501.2300 #### [facility] [address] [place], [address] Basophils/100 WBC (Bld) 0.5 % Normal 0-1 [facility] Comment on above: Performed By: #### L 300.3900, L500.4050, L501.5200, L500.2500, L501.9985, L100.0100, L501.9520, L500.3400, L501.2300 #### [facility] [address] [place], [address] Eosinophils/100 WBC (Bld) 0.8 % Normal 0-5 [facility] Comment on above: Performed By: #### L 300.3900, L500.4050, L501.5200, L500.2500, L501.9985, L100.0100, L501.9520, L500.3400, L501.2300 #### [facility] [address] [place], [address] Erythrocyte distribution width (RBC) [Ratio] 12.8 % Normal 11.6-14.6 [facility] Comment on above: Performed By: #### L 300.3900, L500.4050, L501.5200, L500.2500, L501.9985, L100.0100, L501.9520, L500.3400, L501.2300 #### [facility] [address] [place], [address] Hematocrit (Bld) [Volume fraction] 41.3 % Normal 37-47 [facility] Comment on above: Performed By: #### L 300.3900, L500.4050, L501.5200, L500.2500, L501.9985, L100.0100, L501.9520, L500.3400, L501.2300 #### [facility] [address] [place], [address] (954) Hemoglobin (Bld) [Mass/Vol] 13.9 g/dL Normal 12.0-15.0 [facility] Comment on above: Performed By: #### L 300.3900, L500.4050, L501.5200, L500.2500, L501.9985, L100.0100, L501.9520, L500.3400, L501.2300 #### [facility] [address] [place], [address] IG% 0.400 Normal 0.0-0.9 [facility] Comment on above: Result Comment: IG% - Immature Granulocytes (promyelocytes, myelocytes and metamyelocytes) > 1% indicates that a LEFT SHIFT is Present. Performed By: #### L 300.3900, L500.4050, L501.5200, L500.2500, L501.9985, L100.0100, L501.9520, L500.3400, L501.2300 #### [facility] [address] [place], [address] (109 Lymphocytes/100 WBC (Bld) 21.7 % Normal 19-41 [facility] Comment on above: Performed By: #### L 300.3900, L500.4050, L501.5200, L500.2500, L501.9985, L100.0100, L501.9520, L500.3400, L501.2300 #### [facility] [address] [place], [address] MCH (RBC) [Entitic mass] 29.2 pg Normal 27.0-32.0 [facility] Comment on above: Performed By: #### L 300.3900, L500.4050, L501.5200, L500.2500, L501.9985, L100.0100, L501.9520, L500.3400, L501.2300 #### [facility] [address] [place], [address] MCHC (RBC) [Mass/Vol] 33.7 g/dL Normal 32-36 [facility] Comment on above: Performed By: #### L 300.3900, L500.4050, L501.5200, L500.2500, L501.9985, L100.0100, L501.9520, L500.3400, L501.2300 #### [facility] [address] [place], [address] MCV (RBC) [Entitic vol] 86.8 fL Normal 81-99 [facility] Comment on above: Performed By: #### L 300.3900, L500.4050, L501.5200, L500.2500, L501.9985, L100.0100, L501.9520, L500.3400, L501.2300 #### [facility] [address] [place], [address] Monocytes/100 WBC (Bld) 7.7 % Normal 0-10 [facility] Comment on above: Performed By: #### L 300.3900, L500.4050, L501.5200, L500.2500, L501.9985, L100.0100, L501.9520, L500.3400, L501.2300 #### [facility] [address] [place], [address] Neutrophils/100 WBC (Bld) 68.9 % Normal 47-70 [facility] Comment on above: Performed By: #### L 300.3900, L500.4050, L501.5200, L500.2500, L501.9985, L100.0100, L501.9520, L500.3400, L501.2300 #### [facility] [address] [place], [address] Nucleated RBC (Bld) [#/Vol] 0 10*3/uL Normal 0-5 [facility] Comment on above: Performed By: #### L 300.3900, L500.4050, L501.5200, L500.2500, L501.9985, L100.0100, L501.9520, L500.3400, L501.2300 #### [facility] [address] [facility] [place] [place], [address] Platelet mean volume (Bld) [Entitic vol] 12.1 fL High 6.2-12.0 [facility] Comment on above: Performed By: #### L 300.3900, L500.4050, L501.5200, L500.2500, L501.9985, L100.0100, L501.9520, L500.3400, L501.2300 #### [facility] [address] [facility] [place], [address] Platelets (Bld) [#/Vol] 198 10*3/uL Normal 150-450 [facility] Comment on above: Performed By: #### L 300.3900, L500.4050, L501.5200, L500.2500, L501.9985, L100.0100, L501.9520, L500.3400, L501.2300 #### [facility] [address] [facility] [place] [place], [address] RBC (Bld) [#/Vol] 4.76 10*6/uL Normal 4.2-5.4 [facility] Comment on above: Performed By: #### L 300.3900, L500.4050, L501.5200, L500.2500, L501.9985, L100.0100, L501.9520, L500.3400, L501.2300 #### [facility] [address] [place], [place], [id number] RDW SD 40.1 fl Normal 35.1-43.9 [facility] Comment on above: Performed By: #### L 300.3900, L500.4050, L501.5200, L500.2500, L501.9985, L100.0100, L501.9520, L500.3400, L501.2300 #### [facility] [address] [place], [place], [id number] WBC (Bld) [#/Vol] 7.4 10*3/uL Normal 4.4-11.0 [facility] Comment on above: Performed By: #### L 300.3900, L500.4050, L501.5200, L500.2500, L501.9985, L100.0100, L501.9520, L500.3400, L501.2300 #### [facility] [address] [place], [address] CNOVon 09-16-2024 CNOV Office Visit (UCWSTR ) -------- TRICE ZAMBRANO ([id number]) 1980 F Date Time Provider Department 09/16/24 10:15 AM RONY CHÁVEZ [facility] During your visit today, we recorded the [...] [B99.9] Prescriptions as of 09/16/2024 - Insulin [place], Disposable, (BD ULTRA-FINE VINOD PEN NEEDLE) 32 [...] twice daily, 250.02. Insulin yes. - Insulin [place], Disposable, (BD ULTRA-FINE VINOD PEN NEEDLE) 32 [...] Status:Closed by RONY CHÁVEZ on 09/16/24 Normal [facility] Metabolic Prof tracie 09-16-2024 Albumin [Mass/Vol] 3.3 g/dL Normal 3.2-5.0 [facility] Comment on above: Performed By: #### L 300.3900, L500.4050, L501.5200, L500.2500, L501.9985, L100.0100, L501.9520, L500.3400, L501.2300 #### [facility] [address] [facility] [place], [address] Albumin/Globulin [Mass ratio] 0.9 {ratio} Normal 0.9-2.4 [facility] Comment on above: Performed By: #### L 300.3900, L500.4050, L501.5200, L500.2500, L501.9985, L100.0100, L501.9520, L500.3400, L501.2300 #### [facility] [address] [facility] [place], [address] ALK P 84 U/L Normal 45-117 [facility] Comment on above: Performed By: #### L 300.3900, L500.4050, L501.5200, L500.2500, L501.9985, L100.0100, L501.9520, L500.3400, L501.2300 #### [facility] [address] [place], [address] ALT [Catalytic activity/Vol] 26 U/L Normal 13-56 [facility] Comment on above: Performed By: #### L 300.3900, L500.4050, L501.5200, L500.2500, L501.9985, L100.0100, L501.9520, L500.3400, L501.2300 #### [facility] [address] [place], [address] AST [Catalytic activity/Vol] 16 U/L Normal 15-37 [facility] Comment on above: Performed By: #### L 300.3900, L500.4050, L501.5200, L500.2500, L501.9985, L100.0100, L501.9520, L500.3400, L501.2300 #### [facility] [address] [place], [address] Bilirubin [Mass/Vol] 0.30 mg/dL Normal 0.20-1.00 [facility] Comment on above: Result Comment: For patients on eltrombopag therapy, use of Dimension [place] TBIL is not recommended. Performed By: #### L 300.3900, L500.4050, L501.5200, L500.2500, L501.9985, L100.0100, L501.9520, L500.3400, L501.2300 #### [facility] [address] [place], [address] BUN/CRE 19.2 RATIO Normal 10-20 [facility] Comment on above: Performed By: #### L 300.3900, L500.4050, L501.5200, L500.2500, L501.9985, L100.0100, L501.9520, L500.3400, L501.2300 #### [facility] [address] [place], [address] CA,Total 9.0 mg/dL Normal 8.5-10.1 [facility] Comment on above: Performed By: #### L 300.3900, L500.4050, L501.5200, L500.2500, L501.9985, L100.0100, L501.9520, L500.3400, L501.2300 #### [facility] [address] [place], [address] Chloride [Moles/Vol] 106 mmol/L Normal 98-107 [facility] Comment on above: Performed By: #### L 300.3900, L500.4050, L501.5200, L500.2500, L501.9985, L100.0100, L501.9520, L500.3400, L501.2300 #### [facility] [address] [place], [address] CO2 [Moles/Vol] 25.0 mmol/L Normal 21.0-32.0 [facility] Comment on above: Performed By: #### L 300.3900, L500.4050, L501.5200, L500.2500, L501.9985, L100.0100, L501.9520, L500.3400, L501.2300 #### [facility] [address] [place], [address] Creatinine [Mass/Vol] 0.99 mg/dL Normal 0.55-1.02 [facility] Comment on above: Result Comment: The validity of the calculated GFR GFRAA in patients over 70 years has not been determined. Clinical correlation is essential. Performed By: #### L 300.3900, L500.4050, L501.5200, L500.2500, L501.9985, L100.0100, L501.9520, L500.3400, L501.2300 #### [facility] [address] [place] [phone] (419) ECRCL 93.74 ml/min Normal [facility] Comment on above: Performed By: #### L 300.3900, L500.4050, L501.5200, L500.2500, L501.9985, L100.0100, L501.9520, L500.3400, L501.2300 #### [facility] [address] [place], [place], [phone] (971) EST GFR - AA 78 mL/min Normal >60 [facility] Comment on above: Result Comment: Afri can Norwegian GFR Calc Performed By: #### L 300.3900, L500.4050, L501.5200, L500.2500, L501.9985, L100.0100, L501.9520, L500.3400, L501.2300 #### [facility] [address] [place], [place], [id number] GAP 6 Normal 5-15 [facility] Comment on above: Performed By: #### L 300.3900, L500.4050, L501.5200, L500.2500, L501.9985, L100.0100, L501.9520, L500.3400, L501.2300 #### [facility] [address] [place], [address] GFR/1.73 sq M.predicted among non-blacks MDRD (S/P/Bld) [Vol rate/Area] 65 mL/min/{1.73_m2} Normal >60 [facility] Comment on above: Result Comment: Non- GFR Calc Performed By: #### L 300.3900, L500.4050, L501.5200, L500.2500, L501.9985, L100.0100, L501.9520, L500.3400, L501.2300 #### [facility] [address] [place], [address] (361) Globulin (S) [Mass/Vol] 3.5 g/dL Normal 2.2-4.2 [facility] Comment on above: Performed By: #### L 300.3900, L500.4050, L501.5200, L500.2500, L501.9985, L100.0100, L501.9520, L500.3400, L501.2300 #### [facility] [address] [place], [address] Glucose [Mass/Vol] 319 mg/dL High 74-106 [facility] Comment on above: Result Comment: Gluc ose result greater than or equal to 200 mg/dL suggests DIABETES MELLITUS per A.D.A. criteria. Performed By: #### L 300.3900, L500.4050, L501.5200, L500.2500, L501.9985, L100.0100, L501.9520, L500.3400, L501.2300 #### [facility] [address] [place], [address] Potassium [Moles/Vol] 4.3 mmol/L Normal 3.5-5.1 [facility] Comment on above: Performed By: #### L 300.3900, L500.4050, L501.5200, L500.2500, L501.9985, L100.0100, L501.9520, L500.3400, L501.2300 #### [facility] [address] [place], [address] Sodium [Moles/Vol] 136 mmol/L Normal 136-145 [facility] Comment on above: Performed By: #### L 300.3900, L500.4050, L501.5200, L500.2500, L501.9985, L100.0100, L501.9520, L500.3400, L501.2300 #### [facility] [address] [place], [address] T PROT 6.8 g/dL Normal 6.4-8.2 [facility] Comment on above: Performed By: #### L 300.3900, L500.4050, L501.5200, L500.2500, L501.9985, L100.0100, L501.9520, L500.3400, L501.2300 #### [facility] [address] [place], [place], [address] Urea nitrogen [Mass/Vol] 19 mg/dL High 7-18 [facility] Comment on above: Performed By: #### L 300.3900, L500.4050, L501.5200, L500.2500, L501.9985, L100.0100, L501.9520, L500.3400, L501.2300 #### [facility] [address] [place], [place], [address] Emergency Department Summary on 09-16-2024 Emergency Department Summary [facility] Medical Records Department [address] [place] [address] Emergency Department Summary 09/16/24 MR#: [id number] Acct: [id number] Name: TRICE ZAMBRANO Rep #: [id number] : 1980 44 From: David Hanna DO PCP: Dr. Joaquin Huitron MD Status:DIS IN Location: [address] History of Present Illness Chief Complaint: [...] then referred her to the emergency department. [facility] Medical History Physical exam, pre-employment History of [...] Vital Sig (more content not included)... Normal [facility] H AND P Exam - [facility] 09-16-2024 H&P Exam - Hospitalist [facility] Medical Records Department [address] [place] [address] H P Exam - Hospitalist 09/16/24 1625 MR#: [id number] Acct: [id number] Name: TRICE ZAMBRANO Rep #: [id number] : 1980 44 From: Ken Sosa MD PCP: Dr. 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 [facility] Medical History Physical exam, pre-employment History of [...] % (Auto) 68.9, Lymph % (Auto) 21.7, [place] % (Auto) 7.7, Eos % (Auto) 0.8, Baso % (Auto) 0.5, Absolute Ne (more content not included)... Normal [facility] Lactic Acidon 09-16-2024 Lactate [Moles/Vol] 1.0 mmol/L Normal 0.4-1.9 [facility] Comment on above: Order Comment: Y Performed By: #### L 300.3900, L500.4050, L501.5200, L500.2500, L501.9985, L100.0100, L501.9520, L500.3400, L501.2300 #### [facility] [address] [place], [address] Partial Thromboplast Timeon 09-16-2024 aPTT Coag (Bld) [Time] 24.2 s Normal 24.1-36.2 [facility] Comment on above: Performed By: #### L 300.3900, L500.4050, L501.5200, L500.2500, L501.9985, L100.0100, L501.9520, L500.3400, L501.2300 #### [facility] [address] [place], [address] Pelvis WITH IV Contraston Pelvis WITH IV Contrast [facility] Imaging Services [address] [place] [address] Pelvis WITH IV Contrast MR#: [id number] Acct: [id number] Name: TRICE ZAMBRANO Rep #: [id number] : 1980 F 44 From: John Acosta PCP: Dr. Joaquin Huitorn MD Status: [facility] ER Study: Pelvis WITH IV Contrast Date of Exam: 09/16/24 Exam# [id number] Ordering Dr: Jose Flores [id number] EXAM: CT PELVIS WITH INTRAVENOUS CONTRAST CLINICAL [...] CC: FARA Flores; Dr. Joaquin Huitron MD Rehabilitation Team Lead: Signed Normal [facility] Prothrombin Time w/INRon INR Coag (PPP) [Relative time] 0.9 {INR} Normal [facility] Comment on above: Performed By: #### L 300.3900, L500.4050, L501.5200, L500.2500, L501.9985, L100.0100, L501.9520, L500.3400, L501.2300 #### [facility] [address] [place], [place], [id number] PT Coag (PPP) [Time] 12.5 s Normal 11.7-14.9 [facility] Comment on above: Performed By: #### L 300.3900, L500.4050, L501.5200, L500.2500, L501.9985, L100.0100, L501.9520, L500.3400, L501.2300 #### [facility] [address] [place], [place], [id number] Urinalysis, Completeon 09-16 BACTERIA 1+ /hpf Normal None Seen [facility] Comment on above: Order Comment: COLLE CTOR TO SPECIFY Performed By: #### L 300.3900, L500.4050, L501.5200, L500.2500, L501.9985, L100.0100, L501.9520, L500.3400, L501.2300 #### [facility] [address] [place], [place], [id number] EPI,SQUAMOUS 0-5 SEEN Normal 5-10 [facility] Comment on above: Order Comment: COLLE CTOR TO SPECIFY Performed By: #### L 300.3900, L500.4050, L501.5200, L500.2500, L501.9985, L100.0100, L501.9520, L500.3400, L501.2300 #### [facility] [address] [place], [address] RBC 0-5 SEEN Normal 0-5 [facility] Comment on above: Order Comment: COLLE CTOR TO SPECIFY Performed By: #### L 300.3900, L500.4050, L501.5200, L500.2500, L501.9985, L100.0100, L501.9520, L500.3400, L501.2300 #### [facility] [address] [facility] [place], [place], [address] WBC 10-25 SEEN Normal 0-5 [facility] Comment on above: Order Comment: COLLE CTOR TO SPECIFY Performed By: #### L 300.3900, L500.4050, L501.5200, L500.2500, L501.9985, L100.0100, L501.9520, L500.3400, L501.2300 #### [facility] [address] [facility] [address] [place], [place], [address] Mucus Ql (Urine sed) 0 SEEN Normal [facility] Comment on above: Order Comment: COLLE CTOR TO SPECIFY Performed By: #### L 300.3900, L500.4050, L501.5200, L500.2500, L501.9985, L100.0100, L501.9520, L500.3400, L501.2300 #### [facility] [address] [facility] [place], [address] Emergency Department Summary on 07-20-2024 Emergency Department Summary [facility] Medical Records Department [address] [place] [address] Emergency Department Summary 07/20/24 MR#: [id number] Acct: [id number] Name: TRICE ZAMBRANO Erica Rep #: [id number] : 1980 44 From: Cosme Link MD [...] similar symptoms: No Recent Illness/Hospitalization: No PFSH [facility] Medical History Physical exam, pre-employment History of [...] lumbar tendernes (more content not included)... Normal [facility] [place] 07-17-2024 [facility] Telephone ([facility]) -------- TRICE ZAMBRANO ([id number]) 1980 F Date Time Provider Department 07/17/24 INDU PHAM [facility] During your visit today, we recorded the following information about you: Indu Pham [facility] 07/17/2024 10:50 AM Signed Primary Care Pharmacy Rescheduling Outreach Patient cancelled new pharm visit on 06/14 and has not rescheduled yet. Call center, please contact patient and reschedule in person, telephone, and virtual visit for Diabetes management within ~4 week(s). (Visit length: 60 minutes) Thank you, Indu Pham, PharmD, BCACP Primary Care Clinical Customer Support Coordinator 07/17/2024 10:49 AM Dawson Mckeon 07/17/2024 11:18 AM Signed Telephoned the patient regarding cancelled appt. Left a message. Alisia Mckeon [facility] 07/18/2024 2:06 PM Addendum Telephoned the patient to schedule a new Primary Care pharmacy appt. Left a message.Second attempt. Made two attempts to contact the patient. Patient was sent Office Center message. If the patient returns a call, an appt will be scheduled. Alisia Mckeon [facility] 07/25/2024 2:43 PM Signed Final attempt. made. Pt. was also sent Office Center message.If pt. returns our call an appt. will be made. Pt. discharge process is complete at this time. Will route to [facility] as an FYI. Allergies As of Date: [...] twice daily, 250.02. Insulin yes. - Insulin [place], Disposable, (BD ULTRA-FINE VINOD PEN NEEDLE) 32 [...] Encounter Status:Closed by DAWSON MCKEON on 07/17/24 [facility] [place] 07-13-2024 [facility] Telephone ([facility]) -------- TRICE ZAMBRANO ([id number]) 1980 F Date Time Provider Department 07/13/24 ROSE NEVES [facility] During your visit today, we recorded the [...] Signed Patient active MyChart. Patient notified via Office Center message. Jonathan Kim MA Allergies As of [...] twice daily, 250.02. Insulin yes. - Insulin [place], Disposable, (BD ULTRA-FINE VINOD PEN NEEDLE) 32 [...] Status:Closed by JONATHAN KIM on 07/16/24 Normal [facility] Bacteria Ur Culton 4 Bacteria identified Cx Nom (U) ORGANISM ID: 1 10,000 -<50,000 CFU/ml Normal urogenital chris Normal [facility] Comment on above: Performed By: #### 6 30-4 ####[facility] LABCLIA [id number] [place] [address] [place] CNOVon 07-11-2024 CNOV Office Visit (UCWSTR ) -------- TRICE ZAMBRANO ([id number]) 1980 F Date Time Provider Department 07/11/24 2:00 PM [facility] During your visit today, we recorded the following information about you: Temperature Pulse Respiration Blood pressure 98 degrees 88/minute 18/minute 128/82 Weight 112 kg PraisLetitia Casey APRN.SPRINKLING SYSTEM IRRIGATOR 07/11/2024 3:11 PM Signed Subjective Trice Zambrano [...] date: RLS (restless legs syndrome) 04/2021: Septicemia ([facility]) Comment: buttock abscess No date: Ventral hernia [...] glucose twice daily, 250.02. Insulin yes. Insulin [place], Disposable, (BD ULTRA-FINE VINOD PEN NEEDLE) 32 gauge x 5/32 Use one needle for each dose. 5/day. blood sugar diagnostic (FX BridgeTOUCH VERIO TEST STRIPS) test strip Test blood [...] membrane normal. Nose: Nose normal. Mouth/Throat: Lips: [place]. Mouth: Mucous membranes are moist. Pharynx: Posterior oropharyngeal erythema present. Comments: Mild erythema posterior pharynx Eyes: Extraocular Movements: (more content not included)... Normal [facility] COVID AND INFLUENZA A/B AND RSV PCR, ROUTINEon 07-11-2024 SARS-CoV-2 (COVID-19) RNA NAKUL+probe Ql (Unsp spec) SARS-COV-2 (AGENT OF COVID-19) RNA: Not detected INFLUENZA A RNA: Not detected INFLUENZA B RNA: Not detected RESPIRATORY SYNCYTIAL VIRUS (RSV) RNA: Not detected Normal [facility] Comment on above: Performed By: #### C VFLRS ####[facility] LABCLIA [id number] [address] [place] STREP A MOLECULAR (POC)on Procedural Control Valid [facility] Strep A (POCT) Negative Negative [facility] UA DIP, URINE (POC)on 2023 BILIRUBIN UA (POCT) Negative Negative [facility] CLARITY UA (POCT) [facility] COLOR UA (POCT) Yellow [facility] GLUCOSE UA (POCT) 500 mg/dL Abnormal Negative [facility] Hemoglobin Ql (U) Negative Negative [facility] Interpretation and review of laboratory results Abnormal [facility] KETONE UA (POCT) 15 mg/dL Abnormal Negative [facility] LEUKOCYTES UA (POCT) Negative Negative [facility] NITRITE UA (POCT) Negative Negative [facility] PH UA (POCT) 7.0 4.5 - 8.0 [facility] Protein Ql (U) Trace Abnormal Negative mg/dL [facility] SPECIFIC GRAVITY UA (POCT) 1.015 1.005 - 1.030 [facility] UROBILINOGEN UA (POCT) 0.2 Normal E.U./dL [facility] Location:[facility], [address] [place] [address], [place], [address] [facility] POINT OF CARE [facility] Office Visit Reporton 2023 Office Visit Report [facility] [address] [place] [address] OFFICE VISIT Date of Service: 03/26/24 MR#: [id number] Acct: [id number] Patient: TRICE ZAMBRANO Rep #: [id number] : 1980 Provider: TATYANA Jackson Age/Sex: 43/F Location: [facility] [place] Status: Signed Intake Vital Signs 04/13/23 17:27 Height 5 ft 8 in Intake Visit Reasons: PE/NON DOT/DRUG SCREEN/CCHO Chief Complaint: abscess Allergies metformin Adverse Reaction (Verified 04/13/23 17:38) Nausea Office Procedures [facility] Billing Sheet Testing Breath Alcohol Test in ED (almond paste mixer fee charged): No Breath Alcohol in [facility]: No Breath Alcohol Test Pre-Employment: No Chest X-Ray (interpreted by radiologist): No DOT Drug Screen: No DOT Physical Exam: No DOT Pre-Employment Breath Alcohol: No DOT Pre-Employment Drug Screen: No DOT Reasonable Suspicion: No Drug Screen Collection Only: No Drug Test Performed by another entity: No ECG: No ED detention officer Fee: No Employer Ordered Physical: No Flu [...] No Post-Accident DOT Drug Screen (in ED almond paste mixer fee charged): No Post-Accident DOT Drug Screen in [facility]: No Post-Accident Non-DOT Breath Alcohol Test: No Post-Accident NON-DOT Drug Screen (almond paste mixer fee charged in ED): No Post-Accident NON-DOT Drug Screen in ED (almond paste mixer fee charged): No Post-Accident NON-DOT Drug Screen in [facility]: No Pre-Employment Drug Screen [facility]: Yes Pre-Employment Drug Screen: No [...] No Stress Test (conducted interpreted by a tobacco flavorer): No Occquant-Quantiferon: No Results POC Urinalysis Dip [...] Franny Santos 04/17/24 09:27 Off Ur Spec Flushing Cancelled Last Edit by Franny Santos MA on 04/17/24 09:27 Off Ur Spec Flushing previously reported as 1.030 Franny Santos 04/17/24 [...] Hall Signature: Date (if applicable) CC: Normal [facility] .Auto Diffon 05-28-2024 Basophil, Absolute 0.0 10 3/mcL Normal 0.0-0.2 [facility] [place] [facility] ([place]) Comment on above: Performed By: #### M DW, CBC, ANEU, GFR, ADIFF, BMP ####[place] [address] [place], [place] [address] Basophils/100 WBC (Bld) 0.7 % Normal 0.0-2.5 [facility] ([place]) Comment on above: Performed By: #### M DW, CBC, ANEU, GFR, ADIFF, BMP ####[place] [address] [place], [place] [address] Eosinophil, Absolute 0.1 10 3/mcL Normal 0.0-0.4 [facility]ly [facility] ([place]) Comment on above: Performed By: #### M DW, CBC, ANEU, GFR, ADIFF, BMP ####[place] [address] [place], [place] [address] Eosinophils/100 WBC (Bld) 1.0 % Normal 0.0-7.0 [facility] ([place] Comment on above: Performed By: #### M DW, CBC, ANEU, GFR, ADIFF, BMP ####[place] [address] [place], [place] [address] Lymphocyte, Absolute 1.7 10 3/mcL Normal 0.8-3.9 [facility] ([place] Comment on above: Performed By: #### M DW, CBC, ANEU, GFR, ADIFF, BMP ####[place] [address] [place], [place] [address] Lymphocytes/100 WBC (Bld) 23.4 % Normal 10.0-50.0 [facility] ([place] Comment on above: Performed By: #### M DW, CBC, ANEU, GFR, ADIFF, BMP ####[place] [address] [place], [place] [address] Monocyte, Absolute 0.4 10 3/mcL Normal 0.2-1.0 [facility] ([place] Comment on above: Performed By: #### M DW, CBC, ANEU, GFR, ADIFF, BMP ####[place] [address] [place], [place] [address] Monocytes/100 WBC (Bld) 5.0 % Normal 1.7-13.0 [facility] ([place] Comment on above: Performed By: #### M DW, CBC, ANEU, GFR, ADIFF, BMP ####[place] [address] [place], [place] [address] Neutrophils/100 WBC (Bld) 69.9 % Normal 37.0-80.0 [facility] ([place] Comment on above: Performed By: #### M DW, CBC, ANEU, GFR, ADIFF, BMP ####[place] [address] [place], [place] [address] .GFRon 05-28-2024 GFR 84 ml/min/1.73sqm Normal [facility] ([place]) Comment on above: Result Comment: GFR Population [...] CBC, ANEU, GFR, ADIFF, BMP ####[place] [address] [place], [place] [address] GFR Non- 69 ml/min/1.73sqm Normal [facility] ([place] Comment on above: Result Comment: GFR Population [...] DW, CBC, ANEU, GFR, ADIFF, BMP ####[place] [address] [place], [place] [address] .MDWon 05-28-2024 Monocyte Distribution Width 18.37 Normal 0.00-20.00 [facility] ([place] Comment on above: Result Comment: For ED adult patients suspected of sepsis, MDW<=20.0 does not rule out sepsis or risk of sepsis Performed By: #### M DW, CBC, ANEU, GFR, ADIFF, BMP ####[place] [address] [place], [place] [address] .NEUABSon 05-28-2024 Neutrophil, Absolute 5.2 10 3/mcL Normal 2.9-6.2 [facility] ([place]) Comment on above: Performed By: #### M DW, CBC, ANEU, GFR, ADIFF, BMP ####[place] [address] [place], [place] [address] BMPon 05-28-2024 BUN/Creatinine Ratio 19 ratio Normal 7-27 [facility] ([place]) Comment on above: Performed By: #### M DW, CBC, ANEU, GFR, ADIFF, BMP ####[address] [place], [place] [address] Calcium [Mass/Vol] 9.3 mg/dL Normal 8.4-10.2 [facility] ([place]) Comment on above: Performed By: #### M DW, CBC, ANEU, GFR, ADIFF, BMP ####[address] [place], [place] [address] Chloride [Moles/Vol] 103 mmol/L Normal 98-107 [facility] ([place]) Comment on above: Performed By: #### M DW, CBC, ANEU, GFR, ADIFF, BMP ####[address] [address] [place], [place] [address] CO2 [Moles/Vol] 31 mmol/L High 22-29 [facility] ([place]) Comment on above: Performed By: #### M DW, CBC, ANEU, GFR, ADIFF, BMP ####[place] [address] [place], [place] [address] Creatinine [Mass/Vol] 0.89 mg/dL Normal 0.55-1.02 [facility] ([place]) Comment on above: Performed By: #### M DW, CBC, ANEU, GFR, ADIFF, BMP ####[place] [address] [place], [place] [address] Electrolyte Balance 8.0 mEq/L Normal 4.0-15.0 [facility] ([place]) Comment on above: Performed By: #### M DW, CBC, ANEU, GFR, ADIFF, BMP ####[address] [address] [place], [place] [address] Glucose [Mass/Vol] 178 mg/dL High 70-105 [facility] ([place]) Comment on above: Performed By: #### M DW, CBC, ANEU, GFR, ADIFF, BMP ####[address] [address] [place], [place] [address] Potassium [Moles/Vol] 4.0 mmol/L Normal 3.5-5.1 [facility] ([place]) Comment on above: Performed By: #### M DW, CBC, ANEU, GFR, ADIFF, BMP ####[address] [address] [place], [place] [address] Sodium [Moles/Vol] 142 mmol/L Normal 136-145 [facility] ([place]) Comment on above: Performed By: #### M DW, CBC, ANEU, GFR, ADIFF, BMP ####[address] [address] [place], [place] [address] Urea nitrogen [Mass/Vol] 17 mg/dL Normal 7-18 [facility] ([place] Comment on above: Performed By: #### M DW, CBC, ANEU, GFR, ADIFF, BMP ####[address] [address] [place], [place] [address] CBCon 05-28-2024 Erythrocyte distribution width (RBC) [Ratio] 13.9 % Normal 11.5-14.5 [facility] ([place] Comment on above: Performed By: #### M DW, CBC, ANEU, GFR, ADIFF, BMP ####[address] [address] [place], [place] [address] Hematocrit (Bld) [Volume fraction] 39.6 % Normal 37.0-47.0 [facility] ([place] Comment on above: Performed By: #### M DW, CBC, ANEU, GFR, ADIFF, BMP ####[address] [place], [place] [address] Hgb 13.5 G/dL Normal 12.0-16.0 [facility] ([place] Comment on above: Performed By: #### M DW, CBC, ANEU, GFR, ADIFF, BMP ####[place] [address] [place], [place] [address] MCH (RBC) [Entitic mass] 30.8 pg Normal 27.0-31.2 [facility] ([place] Comment on above: Performed By: #### M DW, CBC, ANEU, GFR, ADIFF, BMP ####[address] [address] [place], [place] [address] MCHC 34.2 G/dL Normal 33.0-37.0 [facility] ([place] Comment on above: Performed By: #### M DW, CBC, ANEU, GFR, ADIFF, BMP ####[address] [address] [place], [place] [address] MCV (RBC) [Entitic vol] 90.1 fL Normal 80.0-94.0 [facility] ([place] Comment on above: Performed By: #### M DW, CBC, ANEU, GFR, ADIFF, BMP ####[address] [address] [place], [place] [address] Platelet 220 10 3/mcL Normal 130-400 [facility] ([place]) Comment on above: Performed By: #### M DW, CBC, ANEU, GFR, ADIFF, BMP ####[address] [address] [place], [place] [address] Platelet mean volume (Bld) [Entitic vol] 8.9 fL Normal 7.4-10.4 [facility] ([place] Comment on above: Performed By: #### M DW, CBC, ANEU, GFR, ADIFF, BMP ####[address] [address] [place], [place] [address] RBC 4.40 10 6/mcL Normal 4.20-5.40 [facility] ([place] Comment on above: Performed By: #### M DW, CBC, ANEU, GFR, ADIFF, BMP ####[address] [address] [place], [place] [address] WBC 7.4 10 3/mcL Normal 4.6-10.8 [facility] ([place]) Comment on above: Performed By: #### M DW, CBC, ANEU, GFR, ADIFF, BMP ####[address] [address] [place], [place] [address] CT ABDOMEN/PELVIS W/O CONTRA Mare 05-28-2024 CT [...] 05/28/2024 5:06:46 PM Ordering Provider: JOHN Mitchell [facility] ([place]) LABORATORYOrdered By: Monty Parsons on 05-28-2024 Appearance [...] HCG ( test) Ql (U) Negative Normal [facility] ([place] Comment on above: Performed By: #### P REGU, UA #### [place] [address] [address] test (u) int Not detected Invalid Interpretation Code [facility] ([place] Comment on above: Performed By: #### P REGU, UA #### [place] [id number] UAon 05-28-2024 Color (U) Yellow Normal [facility] ([place]) Comment on above: Performed By: #### P REGU, UA #### [place] [id number] Glucose (U) [Mass/Vol] 500 mg/dL Abnormal Negative [facility] ([place] Comment on above: Performed By: #### P REGU, UA #### [place] [address] Ketones Ql (U) Negative Normal Negative [facility] ([place] Comment on above: Performed By: #### P REGU, UA #### [place] [address] UA Appear Clear Normal Clear [facility] ([place] Comment on above: Performed By: #### P REGU, UA #### [place] [id number] UA Blood Small Abnormal Negative [facility] ([place] Comment on above: Performed By: #### P REGU, UA #### [place] [address] [address] UA Leuk Est Negative Normal Negative [facility] ([place] Comment on above: Performed By: #### P REGU, UA #### [place] [address] [address] UA Nitrite Negative Normal Negative [facility] ([place] Comment on above: Performed By: #### P REGU, UA #### [place] [address] UA pH 5.5 Normal 5.0 - 8.0 [facility] ([place] Comment on above: Performed By: #### P REGU, UA #### [place] [id number] UA Protein Trace Normal Negative [facility] ([place] Comment on above: Performed By: #### P REGU, UA #### [place] [address]3247 UA Spec Grav >=1.030 Abnormal 1.015-1.025 [facility] ([place] Comment on above: Performed By: #### P REGU, UA #### [place] [address]3247 UA Specimen Type Clean Catch Normal [facility] ([place] Comment on above: Performed By: #### P REGU, UA #### [place] [address]3247 UA Urobilinogen 0.2 E.U./dL Normal 0.2-1.0 [facility] ([place] Comment on above: Performed By: #### P REGU, UA #### [place] [address]3247 Urobilinogen (U) [Mass/Vol] Negative Normal Negative [facility] ([place] Comment on above: Performed By: #### P REGU, UA #### [place] [address]3247 CBC W Ordered Manual Differe ntial panel (Bld)on 05-07-2024 Basophils (Bld) [#/Vol] 0.04 10*3/uL Normal <0.11 [facility] Comment on above: Order Comment: Speci men Type: BLOOD SPECIMENOrdering Facility: [facility] Address: [address] [place] [address] Performed By: #### 5 7782-5, STFREV ####[facility] LABCLIA [id number] [place] [address] [place] Basophils/100 WBC (Bld) 0.5 % Normal [facility] Comment on above: Order Comment: Speci men Type: BLOOD SPECIMENOrdering Facility: [facility] Address: [address] [place] [address] Performed By: #### 5 7782-5, STFREV ####[facility] LABCLIA [id number] [place] [address] [place] Differential cell count method Nom (Bld) Auto Normal [facility] Comment on above: Order Comment: Speci men Type: BLOOD SPECIMENOrdering Facility: [facility] Address: [address] [place] [address] Performed By: #### 5 7782-5, STFREV ####[facility] LABCLIA [id number] [place] [address] [place] Eosinophils (Bld) [#/Vol] 0.07 10*3/uL Normal <0.46 [facility] Comment on above: Order Comment: Speci men Type: BLOOD SPECIMENOrdering Facility: [facility] Address: [address] [place] [address] Performed By: #### 5 7782-5, STFREV ####[facility] LABCLIA [id number] [place] [address] [place] Eosinophils/100 WBC (Bld) 0.8 % Normal [facility] Comment on above: Order Comment: Speci men Type: BLOOD SPECIMENOrdering Facility: [facility] Address: [address] [place] [address] Performed By: #### 5 7782-5, STFREV ####[facility] LABCLIA [id number] [place] [address] [place] Erythrocyte distribution width (RBC) [Ratio] 13.0 % Normal 11.5-15.0 [facility] Comment on above: Order Comment: Speci men Type: BLOOD SPECIMENOrdering Facility: [facility] Address: [address] [place], [place] [address] Performed By: #### 5 7782-5, STFREV ####[facility] LABCLIA [id number] [place] [address] [place] Hematocrit (Bld) [Volume fraction] 41.0 % Normal 36.0-46.0 [facility] Comment on above: Order Comment: Speci men Type: BLOOD SPECIMENOrdering Facility: [facility] Address: [address] [place] [address] Performed By: #### 5 7782-5, STFREV ####[facility] LABCLIA [id number] [place] [address] [place] Hemoglobin (Bld) [Mass/Vol] 13.3 g/dL Normal 11.5-15.5 [facility] Comment on above: Order Comment: Speci men Type: BLOOD SPECIMENOrdering Facility: [facility] Address: [address] [place] [address] Performed By: #### 5 7782-5, STFREV ####[facility] LABCLIA [id number] [place] [address] [place] Immature granulocytes (Bld) [#/Vol] 0.04 10*3/uL Normal <0.10 [facility] Comment on above: Order Comment: Speci men Type: BLOOD SPECIMENOrdering Facility: [facility] Address: [address] [place] [address] Performed By: #### 5 7782-5, STFREV ####[facility] LABCLIA [id number] [place] [address] [place] Immature granulocytes/100 WBC (Bld) 0.5 % Normal [facility] Comment on above: Order Comment: Speci men Type: BLOOD SPECIMENOrdering Facility: [facility] Address: [address] [place] [address] Performed By: #### 5 7782-5, STFREV ####[facility] LABCLIA [id number] [place] [address] [place] Lymphocytes (Bld) [#/Vol] 1.66 10*3/uL Normal 1.00-4.00 [facility] Comment on above: Order Comment: Speci men Type: BLOOD SPECIMENOrdering Facility: [facility] Address: [address] [place] [address] Performed By: #### 5 7782-5, STFREV ####[facility] LABIA [id number] [place] [address] [place] Lymphocytes/100 WBC (Bld) 18.9 % Normal [facility] Comment on above: Order Comment: Speci men Type: BLOOD SPECIMENOrdering Facility: [facility] Address: [address] [place] [address] Performed By: #### 5 7782-5, STFREV ####[facility] LABIA [id number] [place] [address] [place] MCH (RBC) [Entitic mass] 30.0 pg Normal 26.0-34.0 [facility] Comment on above: Order Comment: Speci men Type: BLOOD SPECIMENOrdering Facility: [facility] Address: [address] [place] [address] Performed By: #### 5 7782-5, STFREV ####[facility] LABIA [id number] [place] [address] [place] MCHC (RBC) [Mass/Vol] 32.4 g/dL Normal 30.5-36.0 [facility] Comment on above: Order Comment: Speci men Type: BLOOD SPECIMENOrdering Facility: [facility] Address: [address] [place] [address] Performed By: #### 5 7782-5, STFREV ####[facility] LABIA [id number] [place] [address] [place] MCV (RBC) [Entitic vol] 92.3 fL Normal 80.0-100.0 [facility] Comment on above: Order Comment: Speci men Type: BLOOD SPECIMENOrdering Facility: [facility] Address: [address] [place] [address] Performed By: #### 5 7782-5, STFREV ####[facility] LABCLIA [id number] [place] [address] [place] Monocytes (Bld) [#/Vol] 0.43 10*3/uL Normal <0.87 [facility] Comment on above: Order Comment: Speci men Type: BLOOD SPECIMENOrdering Facility: [facility] Address: [address] [place] [address] Performed By: #### 5 7782-5, STFREV ####[facility] LABCLIA [id number] [place] [address] [place] Monocytes/100 WBC (Bld) 4.9 % Normal [facility] Comment on above: Order Comment: Speci men Type: BLOOD SPECIMENOrdering Facility: [facility] Address: [address] [place] [address] Performed By: #### 5 7782-5, STFREV ####[facility] LABCLIA [id number] [place] [address] [place] Neutrophils (Bld) [#/Vol] 6.54 10*3/uL Normal 1.45-7.50 [facility] Comment on above: Order Comment: Speci men Type: BLOOD SPECIMENOrdering Facility: [facility] Address: [address] [place] [address] Performed By: #### 5 7782-5, STFREV ####[facility] LABCLIA [id number] [place] [address] [place] Neutrophils/100 WBC (Bld) 74.4 % Normal [facility] Comment on above: Order Comment: Speci men Type: BLOOD SPECIMENOrdering Facility: [facility] Address: [address] [place] [address] Performed By: #### 5 7782-5, STFREV ####[facility] LABIA [id number] [place] [address] [place] Nucleated RBC (Bld) [#/Vol] 10*3/uL Normal <0.01 [facility] Comment on above: Order Comment: Speci men Type: BLOOD SPECIMENOrdering Facility: [facility] Address: [address] [place] [address] Performed By: #### 5 7782-5, STFREV ####[facility] LABIA [id number] [place] [address] [place] Nucleated RBC/100 WBC (Bld) [Ratio] 0.0 /100 WBC Normal [facility] Comment on above: Order Comment: Speci men Type: BLOOD SPECIMENOrdering Facility: [facility] Address: [address] [place] [address] Performed By: #### 5 7782-5, STFREV ####[facility] [id number] [place] [address] [place] Platelet mean volume (Bld) [Entitic vol] 11.9 fL Normal 9.0-12.7 [facility] Comment on above: Order Comment: Speci men Type: BLOOD SPECIMENOrdering Facility: [facility] Address: [address] [place] [address] Performed By: #### 5 7782-5, STFREV ####[facility] LABIA [id number] [place] [address] [place] Platelets (Bld) [#/Vol] 212 10*3/uL Normal 150-400 [facility] Comment on above: Order Comment: Speci men Type: BLOOD SPECIMENOrdering Facility: [facility] Address: [address] [place] [address] Performed By: #### 5 7782-5, STFREV ####[facility] LABCLIA [id number] [address] [address] [place] RBC (Bld) [#/Vol] 4.44 10*6/uL Normal 3.90-5.20 [facility] Comment on above: Order Comment: Speci men Type: BLOOD SPECIMENOrdering Facility: [facility] Address: [address] [place] [address] Performed By: #### 5 7782-5, STFREV ####[facility] LABCLIA [id number] [address] [address] [place] WBC (Bld) [#/Vol] 8.78 10*3/uL Normal 3.70-11.00 [facility] Comment on above: Order Comment: Speci men Type: BLOOD SPECIMENOrdering Facility: [facility] Address: [address] [place] [address] Performed By: #### 5 7782-5, STFREV ####[facility] LABCLIA [id number] [place] [id number] [place] PATHOLOGIST INTERPRETATION C BC/DIFFon 05-07-2024 Slasher Hand review [place] (Unsp spec) [Interp] No review performed. Normal [facility] Comment on above: Order Comment: Speci men Type: BLOOD SPECIMENOrdering Facility: [facility] Address: [address] [place] [address] Performed By: #### 5 7782-5, STFREV ####[facility] LABCLIA [id number] [place] [id number] [place] STAFF REVIEW, CBCDIF Normal [facility] Comment on above: Order Comment: Speci men Type: BLOOD SPECIMENOrdering Facility: [facility] Address: [address] [place] [address] Result Comment: The Pathologist Interpretation on this sample was cancelled because the hematology analyzer did not flag any parameters as requiring manual review. If there is a specific clinical concern for which you would like a pathologist to review the blood smear, please call Lab Client Services within 28 days. Performed By: #### 5 7782-5, TOOTIE ####[facility] LABCLIA [id number] [place] [id number] [place] ALBUMIN/CREATININE RATIO, UR INEon 04-06-2024 Albumin DL <= 20 mg/L (U) [Mass/Vol] 137.0 mg/L [facility] Albumin/Creatinine (U) [Mass ratio] 133 mg/g High NINF - 30 mg/g [facility] Comment on above: Adult Male and [...] [Mass/Vol] 102.8 mg/dL 20.0 - 300.0 mg/dL [facility] Interpretation and review of laboratory results Abnormal [facility] CBC W Auto Differential pane l (Bld)on 04-06-2024 Basophils (Bld) [#/Vol] 0.07 10*3/uL [facility] Basophils/100 WBC (Bld) 0.5 % [facility] Differential cell count method Nom (Bld) Auto [facility] Eosinophils (Bld) [#/Vol] 0.08 10*3/uL [facility] Eosinophils/100 WBC (Bld) 0.6 % [facility] Erythrocyte distribution width (RBC) [Ratio] 13.2 % 11.5 - 15.0 % [facility] Hematocrit (Bld) [Volume fraction] 42.3 % 36.0 - 46.0 % [facility] Hemoglobin (Bld) [Mass/Vol] 13.5 g/dL 11.5 - 15.5 g/dL [facility] Immature granulocytes (Bld) [#/Vol] 0.06 10*3/uL [facility] Immature granulocytes/100 WBC (Bld) 0.5 % [facility] Interpretation and review of laboratory results Abnormal [facility] Lymphocytes (Bld) [#/Vol] 3.22 10*3/uL [facility] Lymphocytes/100 WBC (Bld) 25.0 % [facility] MCH (RBC) [Entitic mass] 29.3 pg 26.0 - 34.0 pg [facility] MCHC (RBC) [Mass/Vol] 31.9 g/dL 30.5 - 36.0 g/dL [facility] MCV (RBC) [Entitic vol] 92.0 fL 80.0 - 100.0 fL [facility] Monocytes (Bld) [#/Vol] 0.86 10*3/uL NINF [facility] Monocytes/100 WBC (Bld) 6.7 % [facility] Neutrophils (Bld) [#/Vol] 8.57 10*3/uL High [facility] Neutrophils/100 WBC (Bld) 66.7 % [facility] Nucleated [facility] (Bld) [#/Vol] [facility] Nucleated RBC/100 WBC (Bld) [Ratio] 0.0 % /100 WBC [facility] Platelet mean volume (Bld) [Entitic vol] 11.6 fL 9.0 - 12.7 fL [facility] Platelets (Bld) [#/Vol] 251 10*3/uL [facility] RBC (Bld) [#/Vol] 4.60 10*6/uL 3.90 - 5.2 0 m/uL [facility] WBC (Bld) [#/Vol] 12.86 10*3/uL [facility] Comprehensive metabolic 2000 panelon 04-06-2024 Albumin [Mass/Vol] 4.0 g/dL 3.9 - 4.9 g/dL [facility] ALP [Catalytic activity/Vol] 101 U/L 34 - 123 U/L [facility] ALT [Catalytic activity/Vol] 16 U/L 7 - 38 U/L [facility] Anion gap [Moles/Vol] 11 mmol/L 9 - 18 mmol/L [facility] AST [Catalytic activity/Vol] 15 U/L 13 - 35 U/L [facility] Bilirubin [Mass/Vol] 0.2 mg/dL 0.2 - 1 .3 mg/dL [facility] Calcium [Mass/Vol] 9.7 mg/dL 8.5 - 10. 2 mg/dL [facility] Chloride [Moles/Vol] 106 mmol/L High 97 - 10 5 mmol/L [facility] CO2 [Moles/Vol] 24 mmol/L 22 - 30 mmol/L [facility] Creatinine [Mass/Vol] 1.04 mg/dL High 0.58 - 0.96 mg/dL [facility] GFR/1.73 sq M.predicted among non-blacks MDRD (S/P/Bld) [Vol rate/Area] 69 mL/min/{1.73_m2} - PINF [facility] Comment on above: Estimated Glomerular Filtration [...] [Mass/Vol] 94 mg/dL 74 - 99 mg/dL [facility] Comment on above: The [place] Diabete s Association (ADA) provides guidance for [...] Standards of Medical Care in Diabetes 2016, [place] Diabetes Association. Diabetes Care. 2016.39(Suppl 1). Potassium [Moles/Vol] 4.2 mmol/L 3.7 - 5.1 mmol/L [facility] Protein [Mass/Vol] 7.0 g/dL 6.3 - 8.0 g/dL [facility] Sodium [Moles/Vol] 141 mmol/L 136 - 144 mmol/L [facility] Urea nitrogen [Mass/Vol] 30 mg/dL High 7 - 21 mg/dL [facility] HbA1c (Bld)on 04-06-2024 Average glucose Estimated from glycated hemoglobin (Bld) [Mass/Vol] 192 mg/dL [facility] Comment on above: eAG: (Estimated aver age glucose) is a calculated value from HgbA1c and is food products sales representative of the average blood glucose level in the last 2-3 month period. HbA1c (Bld) [Mass fraction] 8.3 % High 4.3 - 5.6 % [facility] Comment on above: [place] Diabetes As sociation guidelines indicate that patients with HgbA1c in the range 5.7-6.4% are at increased risk for development of diabetes, and intervention by lifestyle modification may be beneficial. HgbA1c greater or equal to 6.5% is considered diagnostic of diabetes. Interpretation and review of laboratory results Abnormal [facility] LIPID PANEL, NONFASTINGon Cholesterol [Mass/Vol] 170 mg/dL NINF - 200 mg/dL [facility] Comment on above: <200 mg/dL, Desirabl e 200-239 mg/dL, Borderline high >239 mg/dL, High HDL Cholesterol, Nonfasting 52 mg/dL 39 - PINF mg/dL [facility] Comment on above: 40-59 mg/dL, Accepta ble >59 mg/dL, High: Negative risk factor for coronary heart disease <40 mg/dL, Low: Positive risk factor for coronary heart disease LDL Cholesterol, Nonfasting 87 mg/dL NINF - 100 mg/dL [facility] Comment on above: <100 mg/dL, Optimal 100-129 mg/dL, Near optimal/above optimal 130-159 mg/dL, Borderline high 160-189 mg/dL, High >189 mg/dL, Very high Secondary prevention optimal LDL Cholesterol levels are recommended to be < 70 mg/dL LDL/HDL Ratio, Nonfasting 1.67 mg/dL NINF - 2.54 mg/dL [facility] Comment on above: Reference: 1. National Cholesterol Education Program ATP III Guideline At-A-Glance Quick Desk Reference: National Heart, Lung, and Blood [place]. National Institutes of Health. 2001: NIH Publication No. 01-3305. 2. An International Atherosclerosis Society position paper: global recommendations for the management of dyslipidemia: executive summary, Atherosclerosis. 2014: 232(2):410-413. Non HDL Cholesterol, Nonfasting 118 mg/dL NINF - 130 mg/dL [facility] Comment on above: <130 mg/dL, Optimal 130-159 mg/dL, Near optimal/above optimal 160-189 mg/dL, Borderline high 190-219 mg/dL, High >219 mg/dL, Very high Secondary prevention optimal non HDL Cholesterol levels are recommended to be <100 mg/dL Total Chol/HDL Ratio, Nonfasting 3.27 mg/dL NINF - 5.10 mg/dL [facility] Triglycerides, Nonfasting 156 mg/dL High NINF - 150 mg/dL [facility] Comment on above: <150 mg/dL, Normal 150-199 mg/dL, Borderline high 200-499 mg/dL, High >499 mg/dL, Very high VLDL Cholesterol, Nonfasting 31 mg/dL High NINF - 30 mg/dL [facility] No Panel Informationon 04-06 Interpretation and review of laboratory results Abnormal [facility] Urgent Care Visit Reporton 0 03-26-2024 Urgent Care Visit Report [facility] [address], [address] [place] [address] OFFICE VISIT Date of Service: 03/26/24 MR#: [id number] Acct: [id number] Name: TRICE ZAMBRANO Rep #: [id number] : 1980 Provider: TATYANA Jackson Age/Sex: 43/F Location: [facility] [place] Status: Signed with Addenda ADDENDUM by Grace Sibley on 06/22/24 at 1419 Office Procedure Documentation entered by Grace Sibley 06/22/24 14:19: [facility] Billing Sheet Testing Breath Alcohol Test in ED (almond paste mixer fee charged): No Breath Alcohol in [facility]: No Breath Alcohol Test Pre-Employment: No Chest X-Ray (interpreted by radiologist): No DOT Drug Screen: No DOT Physical Exam: No DOT Pre-Employment Breath Alcohol: No DOT Pre-Employment Drug Screen: No DOT Reasonable Suspicion: No Drug Screen Collection Only: No Drug Test Performed by another entity: No ECG: No ED detention officer Fee: No Employer Ordered Physical: No Flu [...] No Post-Accident DOT Drug Screen (in ED almond paste mixer fee charged): No Post-Accident DOT Drug Screen in [facility]: No Post-Accident Non-DOT Breath Alcohol Test: No Post-Accident NON-DOT Drug Screen (almond paste mixer fee charged in ED): No Post-Accident NON-DOT Drug Screen in ED (almond paste mixer fee charged): No Post-Accident NON-DOT Drug Screen in [facility]: No Pre-Employment Drug Screen [facility]: No Pre-Employment Drug Screen: No Pre-Employment PE: [...] No Stress Test (conducted interpreted by a tobacco flavorer): No Occquant-Quantiferon: No Date cc: * Signed Intake Vital Signs 04/13/23 17:27 Height 5 ft 8 in Intake Visit Reasons: PE/NON DOT/PHYSICAL/CCHO Chief Complaint: abscess Allergies metformin Adverse Reaction (Verified 04/13/23 17:38) Nausea [facility] Medical History (Updated 03/26/24 @ 15:02 by [...] Hall Signature: Date (if applicable) CC: Normal [facility] Breast Screeningon 2023 IMPRESSION: NEGATIVE There is no mammographic evidence of malignancy. A 1 year screening mammogram is recommended. Lilo pichardo/shukri:02/03/2024 15:13:32 Political Science Faculty Member(s): Miri Shultz [facility] Breast Imaging letter sent: Normal over [...] Health, Family Medicine, and Medical/Surgical Oncology, the [facility] has carefully reviewed the data and [...] their providers when to stop screening mammograms. Rehabilitation Team Lead: Shukri Transcribe Date/Time: Feb 03 2024 2:35P Dictated by : LILO ELLIS MD This examination was interpreted and the report reviewed and electronically signed by: LILO ELLIS MD on Feb 03 2024 3:13PM EST [facility] * * *Final Report* * * DATE OF EXAM: Feb 03 2024 2:52PM [facility] [address] [facility] SCREENING / PROCEDURE REASON: SCREENING BILATERAL MAMMO W\CAD Z12.31, 09910 * * * * Physician Interpretation * * * * #[id number] - JESSICA SCREENING BILATERAL DIGITAL SCREENING MAMMOGRAM WITH CAD: 02/03/2024 HISTORY: Screening Bilateral Mammo W\Cad Z12.31, 69254. RESULT: TECHNIQUE: The study was acquired using full field digital technology and interpreted from soft copy. Current study was also evaluated with a Computer Aided Detection (CAD). Comparison is made to exams dated: 12/11/2021 mammogram - [facility] and 12/16/2021 mammogram - [facility]. There are scattered areas of fibroglandular density. No significant masses, calcifications, or other findings are seen in either breast. [facility] Provider, Michelle Sam - 02/06/2024 * * *Final Report* * * DATE OF EXAM: Feb 03 2024 2:52PM [facility] [address] [place] [address] SCREENING / PROCEDURE REASON: SCREENING BILATERAL MAMMO W\CAD Z12.31, 84706 * * * * Physician Interpretation * * * * #[id number] - JESSICA SCREENING BILATERAL DIGITAL SCREENING MAMMOGRAM WITH CAD: 02/03/2024 HISTORY: Screening Bilateral Mammo W\Cad Z12.31, 11474. RESULT: TECHNIQUE: The study was acquired using full field digital technology and interpreted from soft copy. Current study was also evaluated with a Computer Aided Detection (CAD). Comparison is made to exams dated: 12/11/2021 mammogram - [facility] and 12/16/2021 mammogram - [facility]. There are scattered areas of fibroglandular density. No significant masses, calcifications, or other findings are seen in either breast. IMPRESSION IMPRESSION: NEGATIVE There is no mammographic evidence of malignancy. A 1 year screening mammogram is recommended. Lilo pichardo/shukri:02/03/2024 15:13:32 Political Science Faculty Member(s): Miri Shultz [facility] Breast Imaging letter sent: Normal over 40 [...] Health, Family Medicine, and Medical/Surgical Oncology, the [facility] has carefully reviewed the data and [...] their providers when to stop screening mammograms. Rehabilitation Team Lead: Shukri Transcribe Date/Time: Feb 03 2024 2:35P Dictated by : LILO ELLIS MD This examination was interpreted and the report reviewed and electronically signed by: LILO ELLIS MD on Feb 03 2024 3:13PM [facility] MG Breast ScreeningOrdered B y: [facility] Provider on 02-06-2024 [facility] JESSICA SCREENINGon 02-03-2024 JESSICA SCREENING * * *Final Report* * * DATE OF EXAM: Feb 03 2024 2:52PM [facility] [id number] - JESSICA SCREENING / PROCEDURE REASON: SCREENING BILATERAL MAMMO WCAD Z12.31, 12343 * * * * Physician Interpretation * * * * #[id number] - [facility] SCREENING BILATERAL DIGITAL SCREENING MAMMOGRAM WITH CAD: 02/03/2024 HISTORY: Screening Bilateral Mammo WCad Z12.31, 79485. RESULT: TECHNIQUE: The study was acquired using full field digital technology and interpreted from soft copy. Current study was also evaluated with a Computer Aided Detection (CAD). Comparison is made to exams dated: 12/11/2021 mammogram - [facility] and 12/16/2021 mammogram - [facility]. There are scattered areas of fibroglandular density. No significant masses, calcifications, or other findings are seen in either breast. IMPRESSION: NEGATIVE There is no mammographic evidence of malignancy. A 1 year screening mammogram is recommended. Lilo pichardo/shukri:02/03/2024 15:13:32 Political Science Faculty Member(s): [facility] Swann [facility] Breast Imaging letter sent: Normal over 40 [...] Health, Family Medicine, and Medical/Surgical Oncology, the [facility] has carefully reviewed the data and [...] their providers when to stop screening mammograms. Rehabilitation Team Lead: Shukri Transcribe Date/Time: Feb 03 2024 2:35P Dictated by : LILO ELLIS MD This examination was interpreted and the report reviewed and electronically signed by: LILO ELLIS MD on Feb 03 2024 3:13PM EST [id number] Normal [facility] MG Breast Screeningon 2023 Radiology Study observation (narrative) [facility] ZCALCon 10-13-2023 Calculi constituents See Below Normal [facility] ([place]) Comment on above: Result Comment: The calculus has been analyzed and found to contain the following substances: CALCIUM OXALATE Performed By: #### Z CALC #### [place] [address] Final Surgical Pathology Rep sukumar 10-11-2023 Final Surgical Pathology Report . Pathology Reports Accession: Collected Date/Time: Received Date/Time: Pathologist: [id number] 10/07/2023 10:30 EST 10/10/2023 11:02 EST DAWSON HARMON MD Final Surgical Pathology Report DIAGNOSIS: URINARY CALCULUS: - CALCULI IDENTIFIED. SENT FOR ANALYSIS CLINICAL INFORMATION: LEFT URETERAL CALCULI SPECIMEN: A. LEFT URETERAL CALCULI GROSS DESCRIPTION: All parts labelled with patient name and [id number] Received in a fresh container labeled left ureteral calculi is 1 liz stone measuring 0.4 x 0.2 x 0.1 cm. Gross examination only. Peyton Langley, Grossing Optometric Assistant/ Dr. Dawson Harmon, Pathologist Dictated by Peyton Langley MICROSCOPIC DESCRIPTION: The microscopic examination is performed, except in the case of Gross Only. Electronically Signed by Pathology Report verified by [facility] DAWSON HARMON Sign out Date: 10/11/2023 09:37 Performing Lab: [facility], [address] [place] [address] Pathology Dept Disclaimer If ancillary studies were utilized, the following Laboratory Developed Test (LDT) disclaimer will apply: Under CLIA requirements, [facility] Pathology Laboratory is qualified to perform high complexity testing. For all ancillary stains, positive and negative controls stain appropriately. Performance characteristics of immunohistochemical and chromogenic in-situ hybridization tests have been determined by [facility] Pathology Laboratory. These tests are used for clinical purposes, They should not be regarded as investigational or for research. Normal [facility] ([place]) .Auto Diffon 09-30-2023 Basophil, Absolute 0.1 10 3/mcL Normal 0.0-0.2 [facility] ([place]) Comment on above: Performed By: #### B MP, GFR, ADIFF, CBC, MDW, ANEU #### [address] [address] Basophils/100 WBC (Bld) 0.5 % Normal 0.0-2.5 [facility] ([place]) Comment on above: Performed By: #### B MP, GFR, ADIFF, CBC, MDW, ANEU #### [address] [address] Eosinophil, Absolute 0.1 10 3/mcL Normal 0.0-0.4 [facility], [facility] ([place]) Comment on above: Performed By: #### B MP, GFR, ADIFF, CBC, MDW, ANEU #### [address] [address] Eosinophils/100 WBC (Bld) 0.8 % Normal 0.0-7.0 [facility] ([place]) Comment on above: Performed By: #### B MP, GFR, ADIFF, CBC, MDW, ANEU #### [address] [address] Lymphocyte, Absolute 1.9 10 3/mcL Normal 0.8-3.9 [facility] ([place]) Comment on above: Performed By: #### B MP, GFR, ADIFF, CBC, MDW, ANEU #### [address] [address] Lymphocytes/100 WBC (Bld) 16.3 % Normal 10.0-50.0 [facility] ([place] Comment on above: Performed By: #### B MP, GFR, ADIFF, CBC, MDW, ANEU #### [address] [address] Monocyte, Absolute 0.9 10 3/mcL Normal 0.2-1.0 [facility] ([place] Comment on above: Performed By: #### B MP, GFR, ADIFF, CBC, MDW, ANEU #### [address] [address] Monocytes/100 WBC (Bld) 7.7 % Normal 1.7-13.0 [facility] ([place]) Comment on above: Performed By: #### B MP, GFR, ADIFF, CBC, MDW, ANEU #### [address] [address] Neutrophils/100 WBC (Bld) 74.7 % Normal 37.0-80.0 [facility] ([place]) Comment on above: Performed By: #### B MP, GFR, ADIFF, LONDON PIÑA, ANEU #### [address] [place], [place] [address] .GFRon 09-30-2023 GFR Non- 72 ml/min/1.73sqm Normal [facility] ([place] Comment on above: Result Comment: GFR Population [...] MP, GFR, ADIFF, LONDON PIÑA, ANEU ####[address] [place], [place] [address] GFR 87 ml/min/1.73sqm Normal [facility] ([place]) Comment on above: Result Comment: GFR Population [...] GFR, ADIFF, CBC, MDW, ANEU ####[address] [place], [place] [address] .MDWon 09-30-2023 Monocyte Distribution Width 19.90 Normal 0.00-20.00 [facility] ([place]) Comment on above: Result Comment: For ED adult patients suspected of sepsis, MDW<=20.0 does not rule out sepsis or risk of sepsis Performed By: #### B MP, GFR, ADIFF, CBC, MDJoseline, ANEU ####[address] [place], [place] [address] .NEUABSon 09-30-2023 Neutrophil, Absolute 8.5 10 3/mcL High 2.9-6.2 [facility] ([place]) Comment on above: Performed By: #### B MP, GFR, ADIFF, CBC, LONDON, ANEU #### [address] [place], [place] [address] .Urinalysis Microscopic (AO) on 09-30-2023 UA Bacteria 4+ /hpf Abnormal [facility] ([place]) Comment on above: Performed By: #### P REGU, UAMICAO, UA ####[address] [place], [place] [address] UA RBC 5-10 Abnormal None Seen [facility] ([place] Comment on above: Performed By: #### P REGU, UAMICAO, UA ####[address] [place], [place] [address] UA Squam Epithelial LOADED Abnormal None Seen [facility] ([place]) Comment on above: Performed By: #### P REGU, UAMICAO, UA ####[address] [place], [place] [address] UA WBC LOADED Abnormal None Seen [facility] ([place] Comment on above: Performed By: #### P REGU, UAMICAO, UA ####[address] [place], [place] [address] BMPon 09-30-2023 BUN/Creatinine Ratio 19 ratio Normal 7-27 [facility] ([place]) Comment on above: Performed By: #### B MP, GFR, ADIFF, CBC, MDW, ANEU ####[address] [place], [place] [address] Calcium [Mass/Vol] 8.7 mg/dL Normal 8.4-10.2 [facility] ([place]) Comment on above: Performed By: #### B MP, GFR, ADIFF, CBCLONDON, ANEU ####[address] [place], [place] [address] Chloride [Moles/Vol] 102 mmol/L Normal 98-107 [facility] ([place]) Comment on above: Performed By: #### B MP, GFR, ADIFF, CBCLONDON, ANEU ####[address] [place], [place] [address] CO2 [Moles/Vol] 29 mmol/L Normal 22-29 [facility] ([place]) Comment on above: Performed By: #### B MP, GFR, ADIFF, LONDON PIÑA, ANEU ####[address] [place], [place] [address] Creatinine [Mass/Vol] 0.86 mg/dL Normal 0.55-1.02 [facility] ([place]) Comment on above: Performed By: #### B MP, GFR, ADIFF, LONDON PIÑA, ANEU ####[address] [place], [place] [address] Electrolyte Balance 7.0 mEq/L Normal 4.0-15.0 [facility] ([place]) Comment on above: Performed By: #### B MP, GFR, ADIFF, LONDON PIÑA, ANEU ####[address] [place], [place] [address] Glucose [Mass/Vol] 125 mg/dL High 70-105 [facility] ([place]) Comment on above: Performed By: #### B MP, GFR, ADIFF, LONDON PIÑA, ANEU ####[address] [place], [place] [address] Potassium [Moles/Vol] 3.7 mmol/L Normal 3.5-5.1 [facility] ([place]) Comment on above: Performed By: #### B MP, GFR, ADIFF, CBC, LONDON, ANEU ####[address] [address] Sodium [Moles/Vol] 138 mmol/L Normal 136-145 [facility] ([place]) Comment on above: Performed By: #### B MP, GFR, ADIFF, CBC, LONDON, ANEU ####[address] [address] Urea nitrogen [Mass/Vol] 16 mg/dL Normal 7-18 [facility] ([place] Comment on above: Performed By: #### B MP, GFR, ADIFF, CBCLONDON, ANEU ####[address] [address] CBCon 09-30-2023 Erythrocyte distribution width (RBC) [Ratio] 13.4 % Normal 11.5-14.5 [facility] ([place] Comment on above: Performed By: #### B MP, GFR, ADIFF, CBCLONDON, ANEU #### [address] [address] Hematocrit (Bld) [Volume fraction] 33.5 % Low 37.0-47.0 [facility] ([place] Comment on above: Performed By: #### B MP, GFR, ADIFF, CBCLONDON, ANEU #### [address] [address] Hgb 11.2 G/dL Low 12.0-16.0 [facility] ([place] Comment on above: Performed By: #### B MP, GFR, ADIFF, CBC, LONDON, ANEU #### [address] [address] MCH (RBC) [Entitic mass] 29.0 pg Normal 27.0-31.2 [facility] ([place] Comment on above: Performed By: #### B MP, GFR, ADIFF, CBCLONDON, ANEU #### [address] [address] MCHC 33.5 G/dL Normal 33.0-37.0 [facility] ([place] Comment on above: Performed By: #### B MP, GFR, ADIFF, CBC, MDW, ANEU #### [address] [address] MCV (RBC) [Entitic vol] 86.5 fL Normal 80.0-94.0 [facility] ([place] Comment on above: Performed By: #### B MP, GFR, ADIFF, CBC, MDW, ANEU #### [address] [address] Platelet 234 10 3/mcL Normal 130-400 [facility] ([place] Comment on above: Performed By: #### B MP, GFR, ADIFF, CBC, MDW, ANEU #### [address] [address] Platelet mean volume (Bld) [Entitic vol] 7.7 fL Normal 7.4-10.4 [facility] ([place] Comment on above: Performed By: #### B MP, GFR, ADIFF, CBC, MDW, ANEU #### [address] [address] RBC 3.88 10 6/mcL Low 4.20-5.40 [facility] ([place] Comment on above: Performed By: #### B MP, GFR, ADIFF, CBC, MDW, ANEU #### [address] [address] WBC 11.4 10 3/mcL High 4.6-10.8 [facility] ([place] Comment on above: Performed By: #### B MP, GFR, ADIFF, CBC, MDW, ANEU #### [address] [address] [address] ABDOMEN/PELVIS W/O CONTRA STon 09-30-2023 CT [...] 09/30/2023 1:36:29 PM Ordering Provider: CAPRICE Mitchell [facility] ([place] LABORATORYOrdered By: Kj Nevarez on 09-30-2023 Appearance [...] HCG ( test) Ql (U) Negative Normal [facility] [place] Comment on above: Performed By: #### P REGU, UAMICAO, UA ####[address] [place] [id number] test (u) int Not detected Invalid Interpretation Code [facility] ([place] Comment on above: Performed By: #### P REGU, UAMICAO, UA ####[address] [place] [id number] UAon 09-30-2023 Color (U) Yellow Normal [facility] ([place] Comment on above: Performed By: #### P REGU, UAMICAO, UA ####[address] [place] [address] Glucose (U) [Mass/Vol] Negative Normal Negative [facility] ([place] Comment on above: Performed By: #### P REGU, UAMICAO, UA ####[address] [place] [id number] Ketones Ql (U) Negative Normal Negative [facility] ([place] Comment on above: Performed By: #### P REGU, UAMICAO, UA ####[address] [place] [address] UA Appear Cloudy Abnormal Clear [facility] ([place] Comment on above: Performed By: #### P REGU, UAMICAO, UA ####[address] [place] [id number] UA Blood Trace Abnormal Negative [facility] ([place]) Comment on above: Performed By: #### P REGU, UAMICAO, UA ####Nevin [address] [id number] UA Leuk Est Moderate Abnormal Negative [facility] [place] Comment on above: Performed By: #### P REGU, UAMICAO, UA ####Nevin [address] [place], [place] [address] UA Nitrite Positive Abnormal Negative [facility] [place] Comment on above: Performed By: #### P REGU, UAMICAO, UA ####Nevin [address] [place], [place] [address] UA pH 5.5 Normal 5.0 - 8.0 [facility] [place] Comment on above: Performed By: #### P REGU, UAMICAO, UA ####Nevin [address] [place], [place] [address] UA Protein 30 mg/dL Normal Negative [facility] [place] Comment on above: Performed By: #### P REGU, UAMICAO, UA ####Nevin [address] [place], [place] [address] UA Spec Grav 1.020 Normal 1.015-1.025 [facility] ([place] Comment on above: Performed By: #### P REGU, UAMICAO, UA ####Nevin [address] [place], [place] [address] UA Specimen Type Clean Catch Normal [facility] [place] Comment on above: Performed By: #### P REGU, UAMICAO, UA ####Nevin [address] [place], [place] [address] UA Urobilinogen 0.2 E.U./dL Normal 0.2-1.0 [facility] [place] Comment on above: Performed By: #### P REGU, UAMICAO, UA ####Nevin [address] [place], [place] [address] Urobilinogen (U) [Mass/Vol] Negative Normal Negative [facility] [place] Comment on above: Performed By: #### P REGU, UAMICAO, UA ####Nevin [address] [place], [place] [address] .Urinalysis Microscopic (AO) on 09-22-2023 UA Bacteria 1+ /hpf Abnormal [facility] [place] Comment on above: Performed By: #### U AMICAO, PREGU, UA ####Nevin [address] [place], [place] [address] UA RBC 0-5 Abnormal None Seen [facility] ([place] Comment on above: Performed By: #### U AMICAO, PREGU, UA ####Nevin [address] [place], [place] [address] UA Squam Epithelial 0-5 Abnormal None Seen [facility] [place] Comment on above: Performed By: #### U AMICAO, PREGU, UA ####Nevin [address] [place], [place] [address] UA WBC LOADED Abnormal None Seen [facility] [place] Comment on above: Performed By: #### U AMICAO, PREGU, UA ####Nevin [address] [place], [place] [address] CT ABDOMEN/PELVIS W/O CONTRA STon 09-22-2023 CT ABDOMEN/PELVIS W/O CONTRAST ORIGINAL EXAMINATION: CT OF THE ABDOMEN AND PELVIS WITHOUT AXDTBBPY36/16/2023 6:38 pm TECHNIQUE: CT of the abdomen [...] 09/22/2023 6:46:22 PM Ordering Provider: MYA MYERS [facility] ([place]) LABORATORYOrdered By: Quinn Boswell on 09-22-2023 Appearance [...] HCG ( test) Ql (U) Negative Normal [facility] ([place]) Comment on above: Performed By: #### U AMICAO, PREGU, UA ####Nevin [address] [id number] test (u) int Not detected Invalid Interpretation Code [facility] ([place]) Comment on above: Performed By: #### U AMICAO, PREGU, UA ####Nevin [address] [place], [place] [address] UAon 09-22-2023 Color (U) Yellow Normal [facility] ([place] Comment on above: Performed By: #### U AMICAO, PREGU, UA ####Nevin [address] [id number] Glucose (U) [Mass/Vol] Negative Normal Negative [facility] ([place]) Comment on above: Performed By: #### U AMICAO, PREGU, UA ####Nevin [address] [place], [place] [address] Ketones Ql (U) Negative Normal Negative [facility] ([place]) Comment on above: Performed By: #### U AMICAO, PREGU, UA ####Nevin [address] [place], [place] [address] UA Appear Cloudy Abnormal Clear [facility] [place] Comment on above: Performed By: #### U AMICAO, PREGU, UA ####Nevin [address] [place], [place] [address] UA Blood Moderate Abnormal Negative [facility] [place] Comment on above: Performed By: #### U AMICAO, PREGU, UA ####Nevin [address] [place], [place] [address] UA Leuk Est Moderate Abnormal Negative [facility] [place] Comment on above: Performed By: #### U AMICAO, PREGU, UA ####Nevin [address] [place], [place] [address] UA Nitrite Positive Abnormal Negative [facility] [place] Comment on above: Performed By: #### U AMICAO, PREGU, UA ####Nevin [address] [place], [place] [address] UA pH 6.5 Normal 5.0 - 8.0 [facility] ([place] Comment on above: Performed By: #### U AMICAO, PREGU, UA ####Nevin [address] [place], [place] [address] UA Protein 100 mg/dL Abnormal Negative [facility] [place] Comment on above: Performed By: #### U AMICAO, PREGU, UA ####Nevin [address] [place], [place] [address] UA Spec Grav 1.020 Normal 1.015-1.025 [facility] [place] Comment on above: Performed By: #### U AMICAO, PREGU, UA ####Nevin [address] [place], [place] [address] UA Specimen Type Clean Catch Normal [facility] [place] Comment on above: Performed By: #### U AMICAO, PREGU, UA ####Nevin [address] [place], [place] [address] UA Urobilinogen 0.2 E.U./dL Normal 0.2-1.0 [facility] [place] Comment on above: Performed By: #### U AMICAO, PREGU, UA ####Nevin [address] [place], [place] [address] Urobilinogen (U) [Mass/Vol] Negative Normal Negative [facility] [place] Comment on above: Performed By: #### U AMICAO, PREGU, UA ####Nevin [address] [place], [place] [address] Absolute lymphocyte countOrd ered By: Werner Moore on 08-19-2023 Lymphocytes Auto (Unsp spec) [#/Vol] 2.35 10*3/uL 0.83-4.51 [facility] Basophil percentageOrdered B y: Werner Moore on 08-19-2023 Basophils/100 WBC (Bld) 0.4 % 0-1 [facility] Chloride [Moles/Vol] 108 mmol/L 98-107 [facility] Eosinophils/100 WBC (Bld) 2.4 % 0-5 [facility] Glucose [Mass/Vol] 118 mg/dL 74-106 [facility] Comment on above: Fasting Glucose resu lt from 100 to 125 mg/dL suggests IMPAIRED HOMEOSTASIS per A.D.A. criteria. Neutrophils (Bld) [#/Vol] 5.8 10*3/uL 2.0-7.7 [facility] Neutrophils/100 WBC (Bld) 64.2 % 47-70 [facility] Potassium [Moles/Vol] 4.1 mmol/L 3.5-5.1 [facility] Comment on above: Slight Hemolysis, Re sult may be falsely increased. Sodium [Moles/Vol] 143 mmol/L 136-145 [facility] WBC (Bld) [#/Vol] 9.1 10*3/uL 4.4-11.0 [facility] Blood erythrocytes count (nu mber/volume)Ordered By: Werner Moore on 08-19-2023 RBC (Bld) [#/Vol] 4.28 10*6/uL 4.2-5.4 [facility] Blood hemoglobin measurement (mass/volume)Ordered By: Werner Moore on 08-19-2023 Hemoglobin (Bld) [Mass/Vol] 12.4 g/dL 12.0-15.0 [facility] Blood lymphocytes/100 leukoc ytesOrdered By: Werner Moore on 08-19-2023 Lymphocytes/100 WBC (Bld) 25.9 % 19-41 [facility] Blood monocytes/100 leukocyt esOrdered By: Werner Moore on 08-19-2023 Monocytes/100 WBC (Bld) 6.8 % 0-10 [facility] Blood platelet mean volumeOr dered By: Werner Moore on 08-19-2023 Platelet mean volume (Bld) [Entitic vol] 10.5 fL 6.2-12.0 [facility] Determination of erythrocyte mean corpuscular volume (MCV)Ordered By: Werner Moore on 08-19-2023 MCV (RBC) [Entitic vol] 90.0 fL 81-99 [facility] Hematocrit Auto (Bld) [Volum e fraction]Ordered By: Werner Moore on 08-19-2023 Hematocrit (Bld) [Volume fraction] 38.5 % 37-47 [facility] Laboratory - Chemistry and C hemistry - challengeOrdered By: Werner Moore on 08-19-2023 CO2 [Moles/Vol] 31.0 mmol/L 21.0-32.0 [facility] Urea nitrogen/Creatinine [Mass ratio] 24.0 mg/mg 10-20 [facility] Laboratory - Hematology and Cell countsOrdered By: Werner Moore on 08-19-2023 Erythrocyte distribution width (RBC) [Entitic vol] 40.8 fL 35.1-43.9 [facility] Erythrocyte distribution width (RBC) [Ratio] 12.5 % 11.6-14.6 [facility] Immature granulocytes/100 WBC (Bld) 0.300 % 0.0-0.9 [facility] Comment on above: IG% - Immature Granu locytes (promyelocytes, myelocytes and metamyelocytes) > 1% indicates that a LEFT SHIFT is Present. MCH (RBC) [Entitic mass] 29.0 pg 27.0-32.0 [facility] Nucleated RBC/100 WBC (Bld) [Ratio] 0 % 0-5 [facility] MCHC Auto (RBC) [Mass/Vol]Or dered By: Werner Moore on 08-19-2023 MCHC (RBC) [Mass/Vol] 32.2 g/dL 32-36 [facility] No Panel InformationOrdered By: Werner Moore on 08-19-2023 Estimated GFR (MDRD) Amer 102 mL/min >60 [facility] Comment on above: GFR Calc Estimated GFR (MDRD) Non-Af Amer 84 mL/min >60 [facility] Comment on above: Non- GFR Calc Platelets bldOrdered By: Blanquita román Oscar on 08-19-2023 Platelets (Bld) [#/Vol] 275 10*3/uL 150-450 [facility] Serum or plasma calcium boogie urement (mass/volume)Ordered By: Werner Moore on 08-19-2023 Calcium [Mass/Vol] 8.9 mg/dL 8.5-10.1 [facility] Serum or plasma creatinine m easurement (mass/volume)Ordered By: Werner Moore on 08-19-2023 Creatinine [Mass/Vol] 0.79 mg/dL 0.55-1.02 [facility] Comment on above: The validity of the calculated GFR & GFRAA in patients over 70 years has not been determined. Clinical correlation is essential. Serum or plasma urea nitroge n measurement (mass/volume)Ordered By: Werner Moore on 08-19-2023 Urea nitrogen [Mass/Vol] 19 mg/dL 7-18 [facility] Thin prep Papanicolaou smear with manual screeningOrdered By: Werner Moore on 08-19-2023 Thin prep Papanicolaou smear with manual screening 4 5-15 [facility] Whole blood hemoglobin A1c/t otal hemoglobin ratio (mass fraction)Ordered By: Werner Moore on 08-19-2023 HbA1c (Bld) [Mass fraction] 6.9 % 3.8-5.6 [facility] Comment on above: Normal < 5.7 % Predi abetic 5.7 - 6.4 % Diabetic >or= 6.5 % Please note range changes. CBC W Auto Differential pane l (Bld)on 06-03-2023 Basophils (Bld) [#/Vol] 0.03 10*3/uL <0.11 k/uL [facility] Basophils/100 WBC (Bld) 0.3 % [facility] Differential cell count method Nom (Bld) Auto [facility] Eosinophils (Bld) [#/Vol] 0.13 10*3/uL <0.46 k/uL [facility] Eosinophils/100 WBC (Bld) 1.4 % [facility] Erythrocyte distribution width (RBC) [Ratio] 12.5 % 11.5 - 15.0 % [facility] Hematocrit (Bld) [Volume fraction] 42.7 % 36.0 - 46.0 % [facility] Hemoglobin (Bld) [Mass/Vol] 13.7 g/dL 11.5 - 15.5 g/dL [facility] Immature granulocytes (Bld) [#/Vol] <0.10 k/uL [facility] Immature granulocytes/100 WBC (Bld) 0.2 % [facility] Lymphocytes (Bld) [#/Vol] 2.72 10*3/uL 1.00 - 4.00 k/uL [facility] Lymphocytes/100 WBC (Bld) 30.0 % [facility] MCH (RBC) [Entitic mass] 29.3 pg 26.0 - 34.0 pg [facility] MCHC (RBC) [Mass/Vol] 32.1 g/dL 30.5 - 36.0 g/dL [facility] MCV (RBC) [Entitic vol] 91.4 fL 80.0 - 100.0 fL [facility] Monocytes (Bld) [#/Vol] 0.70 10*3/uL <0.87 k/uL [facility] Monocytes/100 WBC (Bld) 7.7 % [facility] Neutrophils (Bld) [#/Vol] 5.48 10*3/uL 1.45 - 7.50 k/uL [facility] Neutrophils/100 WBC (Bld) 60.4 % [facility] Nucleated RBC (Bld) [#/Vol] <0.01 k/uL [facility] Nucleated RBC/100 WBC (Bld) [Ratio] 0.0 /100 WBC [facility] Platelet mean volume (Bld) [Entitic vol] 11.4 fL 9.0 - 12.7 fL [facility] Platelets (Bld) [#/Vol] 225 10*3/uL 150 - 400 k/uL [facility] RBC (Bld) [#/Vol] 4.67 10*6/uL 3.90 - 5.2 0 m/uL [facility] WBC (Bld) [#/Vol] 9.08 10*3/uL 3.70 - 11.00 k/uL [facility] HbA1c (Bld)on 06-03-2023 Average glucose Estimated from glycated hemoglobin (Bld) [Mass/Vol] 232 mg/dL [facility] HbA1c (Bld) [Mass fraction] 9.7 % High 4.3 - 5.6 % [facility] Absolute lymphocyte countOrd ered By: Dr. Link on 04-13-2023 Lymphocytes Auto (Unsp spec) [#/Vol] 2.52 10*3/uL 0.83-4.51 [facility] Basophil percentageOrdered B y: Dr. Link on 04-13-2023 Basophils/100 WBC (Bld) 0.4 % 0-1 [facility] Chloride [Moles/Vol] 101 mmol/L 98-107 [facility] Eosinophils/100 WBC (Bld) 1.4 % 0-5 [facility] Glucose [Mass/Vol] 426 mg/dL 74-106 [facility] Comment on above: Glucose result great er than or equal to 200 mg/dLsuggests DIABETES MELLITUS per A.D.A. criteria. Neutrophils (Bld) [#/Vol] 9.0 10*3/uL 2.0-7.7 [facility] Neutrophils/100 WBC (Bld) 72.1 % 47-70 [facility] Potassium [Moles/Vol] 4.2 mmol/L 3.5-5.1 [facility] Sodium [Moles/Vol] 137 mmol/L 136-145 [facility] WBC (Bld) [#/Vol] 12.5 10*3/uL 4.4-11.0 [facility] Blood erythrocytes count (nu mber/volume)Ordered By: Dr. Link on 04-13-2023 RBC (Bld) [#/Vol] 4.63 10*6/uL 4.2-5.4 [facility] Blood hemoglobin measurement (mass/volume)Ordered By: Dr. Link on 04-13-2023 Hemoglobin (Bld) [Mass/Vol] 13.6 g/dL 12.0-15.0 [facility] Blood lymphocytes/100 leukoc ytesOrdered By: Dr. Link on 04-13-2023 Lymphocytes/100 WBC (Bld) 20.2 % 19-41 [facility] Blood monocytes/100 leukocyt esOrdered By: Dr. Link on 04-13-2023 Monocytes/100 WBC (Bld) 5.1 % 0-10 [facility] Blood platelet mean volumeOr dered By: Dr. Link on 04-13-2023 Platelet mean volume (Bld) [Entitic vol] 11.8 fL 6.2-12.0 [facility] Determination of erythrocyte mean corpuscular volume (MCV)Ordered By: Dr. Link on 04-13-2023 MCV (RBC) [Entitic vol] 87.9 fL 81-99 [facility] Glucose Glucometer (BldC) [M ass/Vol]Ordered By: Dr. Link on 04-13-2023 Glucose [Mass/Vol] 427 mg/dL 74-106 [facility] Comment on above: MANAGEMENT OF PATIEN T CARE PER NURSING PROTOCOL Hematocrit Auto (Bld) [Volum e fraction]Ordered By: Dr. Link on 04-13-2023 Hematocrit (Bld) [Volume fraction] 40.7 % 37-47 [facility] Laboratory - Chemistry and C hemistry - challengeOrdered By: Dr. Link on 04-13-2023 CO2 [Moles/Vol] 28.0 mmol/L 21.0-32.0 [facility] Urea nitrogen/Creatinine [Mass ratio] 16.7 mg/mg 10-20 [facility] Laboratory - Hematology and Cell countsOrdered By: Dr. Link on 04-13-2023 Erythrocyte distribution width (RBC) [Entitic vol] 39.3 fL 35.1-43.9 [facility] Erythrocyte distribution width (RBC) [Ratio] 12.3 % 11.6-14.6 [facility] Immature granulocytes/100 WBC (Bld) 0.800 % 0.0-0.9 [facility] Comment on above: IG% - Immature Granu locytes (promyelocytes, myelocytes and metamyelocytes) > 1% indicates that a LEFT SHIFT is Present. MCH (RBC) [Entitic mass] 29.4 pg 27.0-32.0 [facility] Nucleated RBC/100 WBC (Bld) [Ratio] 0 % 0-5 [facility] MCHC Auto (RBC) [Mass/Vol]Or dered By: Dr. Link on 04-13-2023 MCHC (RBC) [Mass/Vol] 33.4 g/dL 32-36 [facility] No Panel InformationOrdered By: Dr. Link on 04-13-2023 Estimated Creatinine Clearance Calc 72.48 ml/min [facility] Estimated GFR (MDRD) Amer 76 mL/min >60 [facility] Comment on above: GFR Calc Estimated GFR (MDRD) Non-Af Amer 63 mL/min >60 [facility] Comment on above: Non- GFR Calc Platelets bldOrdered By: Dr. Link on 04-13-2023 Platelets (Bld) [#/Vol] 266 10*3/uL 150-450 [facility] Serum or plasma calcium boogie urement (mass/volume)Ordered By: Dr. Link on 04-13-2023 Calcium [Mass/Vol] 10.0 mg/dL 8.5-10.1 [facility] Serum or plasma creatinine m easurement (mass/volume)Ordered By: Dr. Link on 04-13-2023 Creatinine [Mass/Vol] 1.02 mg/dL 0.55-1.02 [facility] Comment on above: The validity of the calculated GFR & GFRAA in patients over 70 years has not been determined. Clinical correlation is essential. Serum or plasma urea nitroge n measurement (mass/volume)Ordered By: Dr. Link on 04-13-2023 Urea nitrogen [Mass/Vol] 17 mg/dL 7-18 [facility] Thin prep Papanicolaou smear with manual screeningOrdered By: Dr. Link on 04-13-2023 Thin prep Papanicolaou smear with manual screening 8 5-15 [facility] ALLIED HEALTHon 02-27-2023 ALLIED HEALTH HNO ID: [id number] Author: Geetha Muñoz, LANDEN Service: Radiology Author [...] CT February 27, 2023 5:[address] [facility] CBC W Auto Differential pane l (Bld)on 02-27-2023 Basophils (Bld) [#/Vol] 0.03 10*3/uL Normal <0.11 [facility] Comment on above: Order Comment: Speci men Type: BLOOD SPECIMENOrdering Facility: [facility] Address: [address] [place] [address] Performed By: #### 5 7021-8 ####[facility]ORATORYCLIA [id number] [address] [place] Basophils/100 WBC (Bld) 0.4 % Normal [facility] Comment on above: Order Comment: Speci men Type: BLOOD SPECIMENOrdering Facility: [facility] Address: [address] [place] [address] Performed By: #### 5 7021-8 ####[facility] LABORATORYCLIA [id number] [place] [address] [place] Differential cell count method Nom (Bld) Auto Normal [facility] Comment on above: Order Comment: Speci men Type: BLOOD SPECIMENOrdering Facility: [facility] Address: [address] [place] [address] Performed By: #### 5 7021-8 ####[facility] LABORATORYCLIA [id number] [place] [address] [place] Eosinophils (Bld) [#/Vol] 0.12 10*3/uL Normal <0.46 [facility] Comment on above: Order Comment: Speci men Type: BLOOD SPECIMENOrdering Facility: [facility] Address: [address] [place] [address] Performed By: #### 5 7021-8 ####[facility] LABORATORYCLIA [id number] [place] [address] [facility] [place] Eosinophils/100 WBC (Bld) 1.4 % Normal [facility] Comment on above: Order Comment: Speci men Type: BLOOD SPECIMENOrdering Facility: [facility] Address: [address] [place] [address] Performed By: #### 5 7021-8 ####[facility] LABORATORYCLIA [id number] [place] [address] [place] Erythrocyte distribution width (RBC) [Ratio] 12.8 % Normal 11.5-15.0 [facility] Comment on above: Order Comment: Speci men Type: BLOOD SPECIMENOrdering Facility: [facility] Address: [address] [address] Performed By: #### 5 7021-8 ####[facility] LABORATORYCLIA [id number] [address] [place] Hematocrit (Bld) [Volume fraction] 39.8 % Normal 36.0-46.0 [facility] Comment on above: Order Comment: Speci men Type: BLOOD SPECIMENOrdering Facility: [facility] Address: [address] [place] [address] Performed By: #### 5 7021-8 ####[facility] LABORATORYCLIA [id number] [place] [address] [place] Hemoglobin (Bld) [Mass/Vol] 13.7 g/dL Normal 11.5-15.5 [facility] Comment on above: Order Comment: Speci men Type: BLOOD SPECIMENOrdering Facility: [facility] Address: [address] [place] [address] Performed By: #### 5 7021-8 ####[facility] LABORATORYCLIA [id number] [address] [place] Immature granulocytes (Bld) [#/Vol] 10*3/uL Normal <0.10 [facility] Comment on above: Order Comment: Speci men Type: BLOOD SPECIMENOrdering Facility: [facility] Address: [address] [place] [address] Performed By: #### 5 7021-8 ####[facility] LABORATORYCLIA [id number] [place] [address] [place] Immature granulocytes/100 WBC (Bld) 0.2 % Normal [facility] Comment on above: Order Comment: Speci men Type: BLOOD SPECIMENOrdering Facility: [facility] Address: [address] [place] [address] Performed By: #### 5 7021-8 ####[facility] LABORATORYCLIA [id number] [address] [place] Lymphocytes (Bld) [#/Vol] 2.07 10*3/uL Normal 1.00-4.00 [facility] Comment on above: Order Comment: Speci men Type: BLOOD SPECIMENOrdering Facility: [facility] Address: [address] [place] [address] Performed By: #### 5 7021-8 ####[facility] LABORATORYCLIA [id number] [address] Lymphocytes/100 WBC (Bld) 24.3 % Normal [facility] Comment on above: Order Comment: Speci men Type: BLOOD SPECIMENOrdering Facility: [facility] Address: [address] [place] [address] Performed By: #### 5 7021-8 ####[facility] LABORATORYCLIA [id number] [address] [place] MCH (RBC) [Entitic mass] 30.6 pg Normal 26.0-34.0 [facility] Comment on above: Order Comment: Speci men Type: BLOOD SPECIMENOrdering Facility: [facility] Address: [address] [place] [address] Performed By: #### 5 7021-8 ####[facility] LABORATORYCLIA [id number] [address] MCHC (RBC) [Mass/Vol] 34.4 g/dL Normal 30.5-36.0 [facility] Comment on above: Order Comment: Speci men Type: BLOOD SPECIMENOrdering Facility: [facility] Address: [address] [place] [address] Performed By: #### 5 7021-8 ####[facility] LABORATORYCLIA [id number] [address] [place] MCV (RBC) [Entitic vol] 88.8 fL Normal 80.0-100.0 [facility] Comment on above: Order Comment: Speci men Type: BLOOD SPECIMENOrdering Facility: [facility] Address: [address] [place] [address] Performed By: #### 5 7021-8 ####[facility] LABORATORYCLIA [id number] [place] [address] [place] Monocytes (Bld) [#/Vol] 0.46 10*3/uL Normal <0.87 [facility] Comment on above: Order Comment: Speci men Type: BLOOD SPECIMENOrdering Facility: [facility] Address: [address] [place] [address] Performed By: #### 5 7021-8 ####[facility] LABORATORYCLIA [id number] [address] Monocytes/100 WBC (Bld) 5.4 % Normal [facility] Comment on above: Order Comment: Speci men Type: BLOOD SPECIMENOrdering Facility: [facility] Address: [address] [address] Performed By: #### 5 7021-8 ####[facility] LABORATORYCLIA [id number] [place] [address] [place] Neutrophils (Bld) [#/Vol] 5.83 10*3/uL Normal 1.45-7.50 [facility] Comment on above: Order Comment: Speci men Type: BLOOD SPECIMENOrdering Facility: [facility] Address: [address] [address] Performed By: #### 5 7021-8 ####[facility] LABORATORYCLIA [id number] [address] [place] Neutrophils/100 WBC (Bld) 68.3 % Normal [facility] Comment on above: Order Comment: Speci men Type: BLOOD SPECIMENOrdering Facility: [facility] Address: [address] [address] Performed By: #### 5 7021-8 ####[facility] LABORATORYCLIA [id number] [place] [address] [place] Nucleated RBC (Bld) [#/Vol] 10*3/uL Normal <0.01 [facility] Comment on above: Order Comment: Speci men Type: BLOOD SPECIMENOrdering Facility: [facility] Address: [address] [address] Performed By: #### 5 7021-8 ####[facility] LABORATORYCLIA [id number] [place] [address] [place] Nucleated RBC/100 WBC (Bld) [Ratio] 0.0 /[address] [facility] Comment on above: Order Comment: Speci men Type: BLOOD SPECIMENOrdering Facility: [facility] Address: [address] [place] [address] Performed By: #### 5 7021-8 ####[facility] LABORATORYCLIA [id number] [place] [address] [place] Platelet mean volume (Bld) [Entitic vol] 11.1 fL Normal 9.0-12.7 [facility] Comment on above: Order Comment: Speci men Type: BLOOD SPECIMENOrdering Facility: [facility] Address: [address] [address] Performed By: #### 5 7021-8 ####[facility] LABORATORYCLIA [id number] [place] [address] [place] Platelets (Bld) [#/Vol] 233 10*3/uL Normal 150-400 [facility] Comment on above: Order Comment: Speci men Type: BLOOD SPECIMENOrdering Facility: [facility] Address: [address] [address] Performed By: #### 5 7021-8 ####[facility] LABORATORYCLIA [id number] [place] [address] [place] RBC (Bld) [#/Vol] 4.48 10*6/uL Normal 3.90-5.20 [facility] Comment on above: Order Comment: Speci men Type: BLOOD SPECIMENOrdering Facility: [facility] Address: [address] [address] Performed By: #### 5 7021-8 ####CURRY LABORATORYCLIA [id number] [place] [address] [place] WBC (Bld) [#/Vol] 8.53 10*3/uL Normal 3.70-11.00 [facility] Comment on above: Order Comment: Speci men Type: BLOOD SPECIMENOrdering Facility: [facility] Address: [address] [place], [place] [address] [place] [phone] Performed By: #### 5 7021-8 ####CURRY LABORATORYCLIA [id number] [place] [address] [place] [address] BRAIN WO IVCONon 02-28-20 CT BRAIN WO IVCON * * *Final Report* * * DATE OF EXAM: Feb 27 2023 5:50PM [facility] [place] - CT BRAIN WO IVCON / [...] Other: No depressed skull fracture is seen. Community Development Technician (topogram) images: Non-diagnostic or no additional significant findings. IMPRESSION: No CT evidence of an acute intracranial abnormality. MRI may be considered as a more sensitive modality if continued clinical concern/warranted. Rehabilitation Team Lead: CESAR Transcribe Date/Time: Feb 27 2023 5:59P Dictated by : HENRY FERNÁNDEZ MD This examination was interpreted and the report reviewed and electronically signed by: HENRY FERNÁNDEZ MD on Feb 27 2023 6:02PM EST [id number] Normal [facility] Comprehensive metabolic 2000 panelon 02-27-2023 Albumin [Mass/Vol] 4.4 g/dL Normal 3.9-4.9 [facility] Comment on above: Order Comment: Speci men Type: BLOOD SPECIMENOrdering Facility: [facility] Address: [address] [address] Performed By: #### 2 4323-8 ####CURRY LABORATORYCLIA [id number] [address] [place] [facility] ALP [Catalytic activity/Vol] 121 U/L Normal 34-123 [facility] Comment on above: Order Comment: Speci men Type: BLOOD SPECIMENOrdering Facility: [facility] Address: [address] [address] Performed By: #### 2 4323-8 ####CURRY LABORATORYCLIA [id number] [address] [place] [facility] ALT [Catalytic activity/Vol] 22 U/L Normal 7-38 [facility] Comment on above: Order Comment: Speci men Type: BLOOD SPECIMENOrdering Facility: [facility] Address: [address] [place] [address] Performed By: #### 2 4323-8 ####CURRY LABORATORYCLIA [id number] [place] [address] [place] [facility] Anion gap [Moles/Vol] 9 mmol/L Normal 9-18 [facility] Comment on above: Order Comment: Speci men Type: BLOOD SPECIMENOrdering Facility: [facility] Address: [address] [address] Performed By: #### 2 4323-8 ####CURRY LABORATORYCLIA [id number] [address] [place] AST [Catalytic activity/Vol] 18 U/L Normal 13-35 [facility] Comment on above: Order Comment: Speci men Type: BLOOD SPECIMENOrdering Facility: [facility] Address: [address] [place] [address] Performed By: #### 2 4323-8 ####CURRY LABORATORYCLIA [id number] [place] [address] [place] Bilirubin [Mass/Vol] 0.2 mg/dL Normal 0.2-1.3 [facility] Comment on above: Order Comment: Speci men Type: BLOOD SPECIMENOrdering Facility: [facility] Address: [address] [place] [address] Performed By: #### 2 4323-8 ####CURRY LABORATORYCLIA [id number] [place] [address] [place] Calcium [Mass/Vol] 9.8 mg/dL Normal 8.5-10.2 [facility] Comment on above: Order Comment: Speci men Type: BLOOD SPECIMENOrdering Facility: [facility] Address: [address] [place] [address] Performed By: #### 2 4323-8 ####CURRY LABORATORYCLIA [id number] [place] [address] [place] Chloride [Moles/Vol] 103 mmol/L Normal 97-105 [facility] Comment on above: Order Comment: Speci men Type: BLOOD SPECIMENOrdering Facility: [facility] Address: [address] [place] [address] Performed By: #### 2 4323-8 ####CURRY LABORATORYCLIA [id number] [place] [address] [place] CO2 [Moles/Vol] 28 mmol/L Normal 22-30 [facility] Comment on above: Order Comment: Speci men Type: BLOOD SPECIMENOrdering Facility: [facility] Address: [address] [place] [address] Performed By: #### 2 4323-8 ####CURRY LABORATORYCLIA [id number] [place] [address] [place] Creatinine [Mass/Vol] 0.79 mg/dL Normal 0.58-0.96 [facility] Comment on above: Order Comment: Speci men Type: BLOOD SPECIMENOrdering Facility: [facility] Address: [address] [address] Performed By: #### 2 4323-8 ####CURRY LABORATORYCLIA [id number] [place] [address] [place] ESTIMATED GLOMERULAR FILTRATION RATE 96 mL/min/1.73m??? Normal >=60 [facility] Comment on above: Order Comment: Farzana chairez Type: BLOOD SPECIMENOrdering Facility: [facility] Address: [address] [address] Result Comment: Shanel mated Glomerular Filtration Rate [...] Performed By: #### 2 4323-8 ####CURRY LABORATORYCLIA [id number] [place] [address] [place] Glucose [Mass/Vol] 211 mg/dL High 74-99 [facility] Comment on above: Order Comment: Farzana mihaela Type: BLOOD SPECIMENOrdering Facility: [facility] Address: [address] [place] [address] Result Comment: The [place] Diabetes Association (ADA) provides guidance for cutoff [...] Standards of Medical Care in Diabetes 2016, [place] Diabetes Association. Diabetes Care. 2016.39(Suppl 1). Performed By: #### 2 4323-8 ####CURRY LABORATORYCLIA [id number] [address] Potassium [Moles/Vol] 4.1 mmol/L Normal 3.7-5.1 [facility] Comment on above: Order Comment: Speci men Type: BLOOD SPECIMENOrdering Facility: [facility] Address: [address] [place] [address] Performed By: #### 2 4323-8 ####CURRY LABORATORYCLIA [id number] [address] Protein [Mass/Vol] 7.7 g/dL Normal 6.3-8.0 [facility] Comment on above: Order Comment: Speci men Type: BLOOD SPECIMENOrdering Facility: [facility] Address: [address] [place] [address] Performed By: #### 2 4323-8 ####CURRY LABORATORYCLIA [id number] [address] Sodium [Moles/Vol] 140 mmol/L Normal 136-144 [facility] Comment on above: Order Comment: Speci men Type: BLOOD SPECIMENOrdering Facility: [facility] Address: [address] [place] [address] Performed By: #### 2 4323-8 ####CURRY LABORATORYCLIA [id number] [address] Urea nitrogen [Mass/Vol] 17 mg/dL Normal 7-21 [facility] Comment on above: Order Comment: Speci men Type: BLOOD SPECIMENOrdering Facility: [facility] Address: [address] [place] [address] Performed By: #### 2 4323-8 ####CURRY LABORATORYCLIA [id number] [place] [address] [place] ECG COMPLETEon 02-27-2023 ECG COMPLETE Ventricular Rate : 9 9 BPM Atrial Rate : 99 BPM P-R Interval : 162 ms QRS Duration : 80 ms Q-T Interval : 346 ms QTC Calculation(Bazett) : 444 ms Calculated P [place] : 49 degrees Calculated R [place] : -8 degrees Calculated T [place] : 21 degrees NORMAL SINUS RHYTHM MINIMAL VOLTAGE CRITERIA FOR LVH, MAY BE NORMAL VARIANT ( R in aVL ) POSSIBLE ANTERIOR INFARCT , AGE UNDETERMINED ABNORMAL ECG 1629 no STEMI Confirmed by MD WEINSTEIN PAUL ([id number]), book editor ROBIN MCMULLEN ([id number]) on 02/28/2023 6:31:10 AM NAME : TRICE ZAMBRANO PID : [id number] : 1980 Gender : Female Race : ORD : [id number] Procedure Date : Feb 27 2023 16:27:19 Edit Date : Feb 28 2023 06:31:13 Diagnosis: NORMAL SINUS RHYTHM MINIMAL VOLTAGE CRITERIA FOR LVH, MAY BE NORMAL VARIANT ( R in aVL ) POSSIBLE ANTERIOR INFARCT , AGE UNDETERMINED ABNORMAL ECG 1629 no STEMI Confirmed by MD WEINSTEIN PAUL ([id number]), book editor ROBIN MCMULLEN ([id number]) on 02/28/2023 6:31:10 AM Test Reason : Chest Pain Location : 1 : ER ED Overread By : MD WEINSTEIN PAUL Edited By : ROBIN MCMULLEN Referred By : , Acquired by : MAXIMINO [facility] ED NOTEon 02-27-2023 ED NOTE HNO ID: [id number] Author: Elisha Bae RN Service: Nursing Author [...] removed. No further questions at this time. [facility] ED NOTE HNO ID: [id number] Author: Elisha Bae RN Service: Nursing Author Type: Registered Nurse Type: ED Notes Filed: 02/27/2023 5:01 PM Note Text: Pt up to restroom. [facility] ED NOTE HNO ID: [id number] Author: Elisha Bae RN Service: Nursing Author Type: Registered Nurse Type: ED Notes Filed: 02/27/2023 4:42 PM Note Text: MD at [facility] ED NOTE HNO ID: [id number] Author: Caridad Rush RN Service: Nursing Author Type: Registered Nurse Type: ED Notes Filed: 02/27/2023 4:27 PM Note Text: Patient presents to ED with right arm numbness x 3 days. Patient states 2 weeks ago she also had left facial numbness, facial droop and felt foggy at that time, those symptoms lasted approximately [address] [facility] ED PROV NOTEon 02-27-2023 ED PROV NOTE HNO ID: [id number] Author: Jose Weinstein MD Service: ? Author [...] a d (more content not included)... Normal [facility] PT panel Coag (PPP)on 2022 INR Coag (PPP) [Relative time] {INR} Low 0.9-1.3 [facility] Comment on above: Order Comment: Farzana chairez Type: BLOOD SPECIMENOrdering Facility: [facility] Address: [address] [phone] Result Comment: Kelli min K Antagonist (VKA) Therapeutic Range: INR 2 to 3 (Target INR of 2.5) Note: For patients treated with VKA drugs, such as warfarin, the [place] [employer] 2012 Guideline recommends [...] 70: 252-289 Performed By: #### 3 4528-0 ####[facility] LABORATORYCLIA [id number] [place] [address] [place] PT Coag (PPP) [Time] 9.5 s Low 9.7-13.0 [facility] Comment on above: Order Comment: Farzana chairez Type: BLOOD SPECIMENOrdering Facility: [facility] Address: [address] [place] [address] Performed By: #### 3 4528-0 ####CURRY LABORATORYCLIA [id number] [place] [address] [place] Bacteria Bld Culton 11-28-19 23 Bacteria identified Cx Nom (Bld) CULTURE, BLOOD: No growth 5 days [facility] Comment on above: Performed By: #### 6 00-7 ####[facility] LABCLIA [id number] [address] [place] Bacteria identified Cx Nom (Bld) CULTURE, BLOOD: No growth 5 days [facility] Comment on above: Performed By: #### 6 00-7 ####[facility] LABCLIA [id number] [address] [place] Bacteria Wnd Culton 11-28-19 [...] F Susceptible <=1 , Nonsusceptible >[address] [facility] Comment on above: Performed By: #### 6 462-6 ####[facility] LABCLIA [id number] [facility] [id number] [place] [facility] CBC W Auto Differential pane l (Bld)on 11-28-2022 Basophils (Bld) [#/Vol] 0.04 10*3/uL Normal <0.11 [facility] Comment on above: Order Comment: Speci men Type: BLOOD SPECIMENOrdering Facility: [facility] Address: [address] [place] [address] Performed By: #### 5 7021-8 ####CURRY LABORATORYCLIA [id number] [address] [place] Basophils/100 WBC (Bld) 0.4 % Normal [facility] Comment on above: Order Comment: Speci men Type: BLOOD SPECIMENOrdering Facility: [facility] Address: [address] [place] [address] Performed By: #### 5 7021-8 ####CURRY LABORATORYCLIA [id number] [address] Differential cell count method Nom (Bld) Auto Normal [facility] Comment on above: Order Comment: Speci men Type: BLOOD SPECIMENOrdering Facility: [facility] Address: [address] [place] [address] Performed By: #### 5 7021-8 ####CURRY LABORATORYCLIA [id number] [place] [address] [place] Eosinophils (Bld) [#/Vol] 0.06 10*3/uL Normal <0.46 [facility] Comment on above: Order Comment: Speci men Type: BLOOD SPECIMENOrdering Facility: [facility] Address: [address] [place] [address] Performed By: #### 5 7021-8 ####CURRY LABORATORYCLIA [id number] [place] [address] [place] Eosinophils/100 WBC (Bld) 0.6 % Normal [facility] Comment on above: Order Comment: Speci men Type: BLOOD SPECIMENOrdering Facility: [facility] Address: [address] [place] [address] Performed By: #### 5 7021-8 ####CURRY LABORATORYCLIA [id number] [address] [place] Erythrocyte distribution width (RBC) [Ratio] 12.8 % Normal 11.5-15.0 [facility] Comment on above: Order Comment: Speci men Type: BLOOD SPECIMENOrdering Facility: [facility] Address: [address] [place] [address] Performed By: #### 5 7021-8 ####CURRY LABORATORYCLIA [id number] [address] [place] Hematocrit (Bld) [Volume fraction] 38.4 % Normal 36.0-46.0 [facility] Comment on above: Order Comment: Speci men Type: BLOOD SPECIMENOrdering Facility: [facility] Address: [address] [place] [address] Performed By: #### 5 7021-8 ####CURRY LABORATORYCLIA [id number] [address] [place] Hemoglobin (Bld) [Mass/Vol] 12.9 g/dL Normal 11.5-15.5 [facility] Comment on above: Order Comment: Speci men Type: BLOOD SPECIMENOrdering Facility: [facility] Address: [address] [place] [address] Performed By: #### 5 7021-8 ####CURRY LABORATORYCLIA [id number] [address] Immature granulocytes (Bld) [#/Vol] 0.03 10*3/uL Normal <0.10 [facility] Comment on above: Order Comment: Speci men Type: BLOOD SPECIMENOrdering Facility: [facility] Address: [address] [address] Performed By: #### 5 7021-8 ####CURRY LABORATORYCLIA [id number] [address] Immature granulocytes/100 WBC (Bld) 0.3 % Normal [facility] Comment on above: Order Comment: Speci men Type: BLOOD SPECIMENOrdering Facility: [facility] Address: [address] [address] Performed By: #### 5 7021-8 ####[facility]RY LABORATORYCLIA [id number] [address] Lymphocytes (Bld) [#/Vol] 1.42 10*3/uL Normal 1.00-4.00 [facility] Comment on above: Order Comment: Speci men Type: BLOOD SPECIMENOrdering Facility: [facility] Address: [address] [address] Performed By: #### 5 7021-8 ####CUR[facility] LABORATORYCLIA [id number] [address] Lymphocytes/100 WBC (Bld) 13.8 % Normal [facility] Comment on above: Order Comment: Speci men Type: BLOOD SPECIMENOrdering Facility: [facility] Address: [address] [address] Performed By: #### 5 7021-8 ####CURRY LABORATORYCLIA [id number] [address] MCH (RBC) [Entitic mass] 30.0 pg Normal 26.0-34.0 [facility] Comment on above: Order Comment: Speci men Type: BLOOD SPECIMENOrdering Facility: [facility] Address: [address] [address] Performed By: #### 5 7021-8 ####CURRY LABORATORYCLIA [id number] [address] MCHC (RBC) [Mass/Vol] 33.6 g/dL Normal 30.5-36.0 [facility] Comment on above: Order Comment: Speci men Type: BLOOD SPECIMENOrdering Facility: [facility] Address: [address] [address] Performed By: #### 5 7021-8 ####CURRY LABORATORYCLIA [id number] [place] [address] [place] MCV (RBC) [Entitic vol] 89.3 fL Normal 80.0-100.0 [facility] Comment on above: Order Comment: Speci men Type: BLOOD SPECIMENOrdering Facility: [facility] Address: [address] [place] [address] Performed By: #### 5 7021-8 ####CURRY LABORATORYCLIA [id number] [place] [address] [place] Monocytes (Bld) [#/Vol] 0.78 10*3/uL Normal <0.87 [facility] Comment on above: Order Comment: Speci men Type: BLOOD SPECIMENOrdering Facility: [facility] Address: [address] [place] [address] Performed By: #### 5 7021-8 ####CURRY LABORATORYCLIA [id number] [address] Monocytes/100 WBC (Bld) 7.6 % Normal [facility] Comment on above: Order Comment: Speci men Type: BLOOD SPECIMENOrdering Facility: [facility] Address: [address] [place] [address] Performed By: #### 5 7021-8 ####CURRY LABORATORYCLIA [id number] [place] [address] [place] Neutrophils (Bld) [#/Vol] 7.95 10*3/uL High 1.45-7.50 [facility] Comment on above: Order Comment: Speci men Type: BLOOD SPECIMENOrdering Facility: [facility] Address: [address] [place] [address] Performed By: #### 5 7021-8 ####CURRY LABORATORYCLIA [id number] [address] [place] Neutrophils/100 WBC (Bld) 77.3 % Normal [facility] Comment on above: Order Comment: Speci men Type: BLOOD SPECIMENOrdering Facility: [facility] Address: [address] [address] Performed By: #### 5 7021-8 ####CURRY LABORATORYCLIA [id number] [place] [address] [place] Nucleated RBC (Bld) [#/Vol] 10*3/uL Normal <0.01 [facility] Comment on above: Order Comment: Speci men Type: BLOOD SPECIMENOrdering Facility: [facility] Address: [address] [address] Performed By: #### 5 7021-8 ####CURRY LABORATORYCLIA [id number] [place] [address] [facility] [place] Nucleated RBC/100 WBC (Bld) [Ratio] 0.0 /[address] [facility] Comment on above: Order Comment: Speci men Type: BLOOD SPECIMENOrdering Facility: [facility] Address: [address] [address] Performed By: #### 5 7021-8 ####CURRY LABORATORYCLIA [id number] [place] [address] [place] Platelet mean volume (Bld) [Entitic vol] 11.6 fL Normal 9.0-12.7 [facility] Comment on above: Order Comment: Speci men Type: BLOOD SPECIMENOrdering Facility: [facility] Address: [address] [place] [address] Performed By: #### 5 7021-8 ####CUR[facility] LABORATORYCLIA [id number] [place] [address] [place] Platelets (Bld) [#/Vol] 179 10*3/uL Normal 150-400 [facility] Comment on above: Order Comment: Speci men Type: BLOOD SPECIMENOrdering Facility: [facility] Address: [address] [address] Performed By: #### 5 7021-8 ####CUR[facility] LABORATORYCLIA [id number] [place] [address] [place] RBC (Bld) [#/Vol] 4.30 10*6/uL Normal 3.90-5.20 [facility] Comment on above: Order Comment: Speci men Type: BLOOD SPECIMENOrdering Facility: [facility] Address: [address] [address] Performed By: #### 5 7021-8 ####[facility] LABORATORYCLIA [id number] [address] WBC (Bld) [#/Vol] 10.28 10*3/uL Normal 3.70-11.00 [facility] Comment on above: Order Comment: Speci men Type: BLOOD SPECIMENOrdering Facility: [facility] Address: [address] Performed By: #### 5 7021-8 ####[facility] LABORATORYCLIA [id number] [address] ABD/PEL W IVCONon 023 CT ABD/PEL W IVCON * * *Final Report* * * DATE OF EXAM: Nov 28 2022 5:57PM [facility] [place] 0530 - CT ABD/PEL W IVCON / [...] clinical correlation is needed. Lower thorax: Unremarkable. Community Development Technician (topogram) images: No additional findings. IMPRESSION: Postsurgical changes. Small fluid collection within the left lower abdominal anterior wall, infectious process not excluded. Clinical correlation is needed. Rehabilitation Team Lead: PSCB Transcribe Date/Time: Nov 28 2022 6:11P Dictated by : JESSI WYLIE MD This examination was interpreted and the report reviewed and electronically signed by: JESSI WYLIE MD on Nov 28 2022 6:14PM EST [id number] Normal [facility] Comprehensive metabolic 2000 panelon 11-28-2022 Albumin [Mass/Vol] 3.5 g/dL Low 3.9-4.9 [facility] Comment on above: Order Comment: Speci men Type: BLOOD SPECIMENOrdering Facility: [facility] Address: [address] [address] Performed By: #### 2 4323-8 ####[facility] LABORATORYCLIA [id number] [address] STATES OF [facility] ALP [Catalytic activity/Vol] 88 U/L Normal 34-123 [facility] Comment on above: Order Comment: Speci men Type: BLOOD SPECIMENOrdering Facility: [facility] Address: [address] [address] Performed By: #### 2 4323-8 ####[facility] LABORATORYCLIA [id number] [address] ALT [Catalytic activity/Vol] 12 U/L Normal 7-38 [facility] Comment on above: Order Comment: Speci men Type: BLOOD SPECIMENOrdering Facility: [facility] Address: [address] [address] Performed By: #### 2 4323-8 ####[facility] LABORATORYCLIA [id number] [place] [address] [place] Anion gap [Moles/Vol] 8 mmol/L Low 9-18 [facility] Comment on above: Order Comment: Speci men Type: BLOOD SPECIMENOrdering Facility: [facility] Address: [address] [address] Performed By: #### 2 4323-8 ####[facility] LABORATORYCLIA [id number] [place] [address] [place] AST [Catalytic activity/Vol] 13 U/L Normal 13-35 [facility] Comment on above: Order Comment: Speci men Type: BLOOD SPECIMENOrdering Facility: [facility] Address: [address] [place] [address] Performed By: #### 2 4323-8 ####[facility] LABORATORYCLIA [id number] [place] [address] [place] Bilirubin [Mass/Vol] 0.3 mg/dL Normal 0.2-1.3 [facility] Comment on above: Order Comment: Speci men Type: BLOOD SPECIMENOrdering Facility: [facility] Address: [address] [address] Performed By: #### 2 4323-8 ####[facility] LABORATORYCLIA [id number] [address] [place] Calcium [Mass/Vol] 8.7 mg/dL Normal 8.5-10.2 [facility] Comment on above: Order Comment: Speci men Type: BLOOD SPECIMENOrdering Facility: [facility] Address: [address] [address] Performed By: #### 2 4323-8 ####[facility] LABORATORYCLIA [id number] [address] [place] Chloride [Moles/Vol] 99 mmol/L Normal 97-105 [facility] Comment on above: Order Comment: Speci men Type: BLOOD SPECIMENOrdering Facility: [facility] Address: [address] [address] Performed By: #### 2 4323-8 ####[facility] LABORATORYCLIA [id number] [address] [place] CO2 [Moles/Vol] 25 mmol/L Normal 22-30 [facility] Comment on above: Order Comment: Farzana chairez Type: BLOOD SPECIMENOrdering Facility: [facility] Address: [address] [place] [address] Performed By: #### 2 4323-8 ####[facility] LABORATORYCLIA [id number] [address] [place] Creatinine [Mass/Vol] 0.78 mg/dL Normal 0.58-0.96 [facility] Comment on above: Order Comment: Farzana mihaela Type: BLOOD SPECIMENOrdering Facility: [facility] Address: [address] [place] [address] Performed By: #### 2 4323-8 ####[facility] LABORATORYCLIA [id number] [address] ESTIMATED GLOMERULAR FILTRATION RATE 97 mL/min/1.73m??? Normal >=60 [facility] Comment on above: Order Comment: Farzana chairez Type: BLOOD SPECIMENOrdering Facility: [facility] [facility] Address: [address] [place] [address] Result Comment: Shanel mated Glomerular Filtration Rate [...] Performed By: #### 2 4323-8 ####CURRY LABORATORYCLIA [id number] [address] [place] [facility] Glucose [Mass/Vol] 389 mg/dL High 74-99 [facility] Comment on above: Order Comment: Farzana mihaela Type: BLOOD SPECIMENOrdering Facility: [facility] Address: [address] [place] [address] Result Comment: The [place] Diabetes Association (ADA) provides guidance for cutoff [...] Standards of Medical Care in Diabetes 2016, [place] [employer]. Diabetes Care. 2016.39(Suppl 1). Performed By: #### 2 4323-8 ####CURRY LABORATORYCLIA [id number] [place] [address] [place] Potassium [Moles/Vol] 3.8 mmol/L Normal 3.7-5.1 [facility] Comment on above: Order Comment: Farzana chairez Type: BLOOD SPECIMENOrdering Facility: [facility] Address: [address] [place] [address] Performed By: #### 2 4323-8 ####CURRY LABORATORYCLIA [id number] [place] [address] [place] Protein [Mass/Vol] 6.6 g/dL Normal 6.3-8.0 [facility] Comment on above: Order Comment: Farzana chairez Type: BLOOD SPECIMENOrdering Facility: [facility] Address: [address] [place] [address] Performed By: #### 2 4323-8 ####CURRY LABORATORYCLIA [id number] [address] [place] Sodium [Moles/Vol] 132 mmol/L Low 136-144 [facility] Comment on above: Order Comment: Farzana chairez Type: BLOOD SPECIMENOrdering Facility: [facility] Address: [address] [address] Performed By: #### 2 4323-8 ####CURRY LABORATORYCLIA [id number] [address] [place] Urea nitrogen [Mass/Vol] 12 mg/dL Normal 7-21 [facility] Comment on above: Order Comment: Farzana chairez Type: BLOOD SPECIMENOrdering Facility: [facility] Address: [address] [place] [address] Performed By: #### 2 4323-8 ####[facility] LABORATORYCLIA [id number] [place] [address] [facility] ED NOTEon 11-28-2022 ED NOTE HNO ID: [id number] Author: Beth Senior RN Service: ? Author Type: Registered Nurse Type: ED Notes Filed: 11/28/2022 7:50 PM Note Text: Discharge instructions d/w pt and at bedside. Stated understanding with no further questions for this nurse. Encouraged f/u with PCP and referring doctors given. Stated understanding. Prescription(S) were given keflex, roxicodone. Advised to finish round of doxycyline. Normal [facility] ED NOTE HNO ID: [id number] Author: Stephy Sweeney RN Service: Nursing Author Type: Registered Nurse Type: ED Notes Filed: 11/28/2022 4:05 PM Note Text: Medic at bedside to obtain PIV and labwork. Normal [facility] ED NOTE HNO ID: [id number] Author: Stephy Sweeney RN Service: Nursing Author [...] into the ED for worsening symptoms. Normal [facility] ED PROV NOTEon 11-28-2022 ED PROV NOTE HNO ID: [id number] Author: Maria Del Carmen Tsang MD Service: Emergency Medicine Author Type: Physician Type: ED Provider Notes Filed: 11/28/2022 8:05 PM Note Text: ED Provider Note Patient Name: Trice Zambrano : 1980 SERVICE DATE: 11/28/22 History No [...] normal. Judgment: (more content not included)... Normal [facility] Gas and Carbon monoxide pane l (BldV)on 11-28-2022 BASE DEFICIT, VENOUS >-1 Normal -2-0 [facility] Comment on above: Order Comment: Speci men Type: VENOUS BLOOD SPECIMENOrdering Facility: [facility] Address: [address] [place] [phone] Performed By: #### 2 4344-4 ####[facility] RESPIRATORYCLIA [id number] [facility] [id number] [place] [address] [place] [address] Carboxyhemoglobin (BldV) [Mass fraction] 1.0 % Normal 0.0-2.0 [facility] Comment on above: Order Comment: Speci men Type: VENOUS BLOOD SPECIMENOrdering Facility: [facility] Address: [address] [place] [address] Result Comment: Carb oxyhemoglobin Reference Range for Smokers: 2.0-8.0% Performed By: #### 2 4344-4 ####[facility] RESPIRATORYIA [id number] [facility] [id number] [address] CO2 (BldV) [Partial pressure] 45 mm[Hg] Normal 42-55 [facility] Comment on above: Order Comment: Speci men Type: VENOUS BLOOD SPECIMENOrdering Facility: [facility] Address: [address] [place] [address] Performed By: #### 2 4344-4 ####[facility]ORY[facility] [id number] [facility] [id number] [address] [address] CO2 adjusted to patient's actual temperature (BldV) [Partial pressure] Normal [facility] Comment on above: Order Comment: Speci men Type: VENOUS BLOOD SPECIMENOrdering Facility: [facility] Address: [address] [place] [address] Performed By: #### 2 4344-4 ####[facility]ORY[facility] [id number] [facility] [id number] [address] [address] HCO3 (Bld) [Moles/Vol] 25 mmol/L Normal 24-28 [facility] Comment on above: Order Comment: Speci men Type: VENOUS BLOOD SPECIMENOrdering Facility: [facility] Address: [address] [place] [address] Performed By: #### 2 4344-4 ####[facility] [id number] [facility] RESPIRATORY [id number] [address] [address] Hemoglobin (Bld) [Mass/Vol] 13.4 g/dL Normal 11.5-15.5 [facility] Comment on above: Order Comment: Speci men Type: VENOUS BLOOD SPECIMENOrdering Facility: [facility] Address: [address] [address] Performed By: #### 2 4344-4 ####CURRY RESPIRATORYCLIA [id number] [facility] RES[facility]IRAT[facility] [id number] [address] [address] Lactate [Moles/Vol] 2.0 mmol/L Normal 0.5-2.2 [facility] Comment on above: Order Comment: Speci men Type: VENOUS BLOOD SPECIMENOrdering Facility: [facility] Address: [address] [address] Performed By: #### 2 4344-4 ####[facility] RESPIRATORYIA [id number] [facility]OSP[facility] RESPIRATORY [id number] [address] [address] Methemoglobin (Bld) [Mass fraction] 1.0 % Normal 0.0-1.5 [facility] Comment on above: Order Comment: Speci men Type: VENOUS BLOOD SPECIMENOrdering Facility: [facility] Address: [address] [address] Performed By: #### 2 4344-4 ####[facility] RESPIRATORYIA [id number] [facility]OS[facility] RES[facility]IRAT[facility] [id number] [address] [address] O2 THERAPY RA=Room Air Normal [facility] Comment on above: Order Comment: Speci men Type: VENOUS BLOOD SPECIMENOrdering Facility: [facility] Address: [address] Performed By: #### 2 4344-4 ####[facility] RESPIRATORYIA [id number] [facility] RES[facility]IRAT[facility] [id number] [address] [address] Oxygen (BldV) [Partial pressure] mm[Hg] Low 35-45 [facility] Comment on above: Order Comment: Speci men Type: VENOUS BLOOD SPECIMENOrdering Facility: [facility] Address: [address] [address] Performed By: #### 2 4344-4 ####[facility] RESPIRATORYIA [id number] [facility]ATORY [id number] [place] [address] Oxygen adjusted to patient's actual temperature (BldV) [Partial pressure] Normal [facility] Comment on above: Order Comment: Speci men Type: VENOUS BLOOD SPECIMENOrdering Facility: [facility] Address: [address] [address] Performed By: #### 2 4344-4 ####[facility] RESPIRATORYIA [id number] [facility] RES[facility] [id number] [address] Oxyhemoglobin (BldV) [Mass fraction] 45 % Low 60-85 [facility] Comment on above: Order Comment: Speci men Type: VENOUS BLOOD SPECIMENOrdering Facility: [facility] Address: [address] [address] Performed By: #### 2 4344-4 ####[facility]ORY[facility] [id number] [facility] RESPIRATORY [id number] [address] pH (BldV) 7.36 [pH] Normal 7.32-7.42 [facility] Comment on above: Order Comment: Speci men Type: VENOUS BLOOD SPECIMENOrdering Facility: [facility] Address: [address] [address] Performed By: #### 2 4344-4 ####[facility]ORYBR[facility]LOOK [facility] [id number] [facility] RESPIRATORY [id number] [address] pH adjusted to patient's actual temperature (BldV) Normal [facility] Comment on above: Order Comment: Speci men Type: VENOUS BLOOD SPECIMENOrdering Facility: [facility] Address: [address] [address] Performed By: #### 2 4344-4 ####[facility] RESPIRATORYCLIA [id number] [facility] RES[facility] [id number] [place] [address] Potassium [Moles/Vol] 3.7 mmol/L Normal 3.5-5.0 [facility] Comment on above: Order Comment: Speci men Type: VENOUS BLOOD SPECIMENOrdering Facility: [facility] Address: [address] [place] [address] Performed By: #### 2 4344-4 ####[facility] RESPIRATORYCLIA [id number] [facility]OS[facility]IR[facility] [id number] [address] [address] HCG QUAL BLDon 11-28-2022 HCG, QUALITATIVE Negative Normal Negative [facility] Comment on above: Order Comment: Speci men Type: BLOOD SPECIMENOrdering Facility: [facility] Address: [address] [address] Performed By: #### H CG ####[facility] LABORATORYCLIA [id number] [place] [address] [place] PT panel Coag (PPP)on 2022 INR Coag (PPP) [Relative time] 1.0 {INR} Normal 0.9-1.3 [facility] Comment on above: Order Comment: Speci men Type: BLOOD SPECIMENOrdering Facility: [facility] Address: [address] [facility] [address] [address] Result Comment: Kelli min K Antagonist (VKA) Therapeutic Range: INR 2 to 3 (Target INR of 2.5) Note: For patients treated with VKA drugs, such as warfarin, the [employer] 2012 Guideline recommends [...] 70: 252-289 Performed By: #### 1 4979-9, 80064-9 ####H[facility] LABORATORYCLIA [id number] [address] [place] PT Coag (PPP) [Time] 9.8 s Normal 9.7-13.0 [facility] Comment on above: Order Comment: Speci men Type: BLOOD SPECIMENOrdering Facility: [facility] Address: [address] [place] [address] Performed By: #### 1 4979-9, 95249-0 ####CURRY LABORATORYCLIA [id number] [address] Urinalysis complete panel (U )on 11-28-2022 Bacteria LM.HPF (Urine sed) [#/Area] Few Abnormal None Seen [facility] Comment on above: Order Comment: Speci men Type: URINE SPECIMENOrdering Facility: [facility] Address: [address] [place] [address] Performed By: #### 2 4356-8 ####CURRY LABORATORYCLIA [id number] [address] Bilirubin Ql (U) Negative Normal Negative [facility] Comment on above: Order Comment: Speci men Type: URINE SPECIMENOrdering Facility: [facility] Address: [address] [place] [address] Performed By: #### 2 4356-8 ####CURRY LABORATORYCLIA [id number] [address] [place] Clarity (Unsp spec) Clear Normal Clear [facility] Comment on above: Order Comment: Speci men Type: URINE SPECIMENOrdering Facility: [facility] Address: [address] [place] [address] Performed By: #### 2 4356-8 ####CURRY LABORATORYCLIA [id number] [address] Color (U) Yellow Normal Yellow [facility] Comment on above: Order Comment: Speci men Type: URINE SPECIMENOrdering Facility: [facility] Address: [address] [place] [address] Performed By: #### 2 4356-8 ####CURRY LABORATORYCLIA [id number] [address] Epithelial cells LM.HPF (Urine sed) [#/Area] Few Normal [facility] Comment on above: Order Comment: Speci men Type: URINE SPECIMENOrdering Facility: [facility] Address: [address] [place] [address] Performed By: #### 2 4356-8 ####CURRY LABORATORYCLIA [id number] [address] Glucose Test strip (U) [Mass/Vol] 3+ Abnormal Negative [facility] Comment on above: Order Comment: Speci men Type: URINE SPECIMENOrdering Facility: [facility] Address: [address] [address] Performed By: #### 2 4356-8 ####CURRY LABORATORYCLIA [id number] [place] [address] [place] Hemoglobin Ql (U) Trace Normal Negative, Trace [facility] Comment on above: Order Comment: Speci men Type: URINE SPECIMENOrdering Facility: [facility] Address: [address] [place] [address] Performed By: #### 2 4356-8 ####CURRY LABORATORYCLIA [id number] [address] [place] Ketones Ql (U) Negative Normal Negative [facility] Comment on above: Order Comment: Speci men Type: URINE SPECIMENOrdering Facility: [facility] Address: [address] [place] [address] Performed By: #### 2 4356-8 ####CURRY LABORATORYCLIA [id number] [address] Leukocyte esterase Test strip Ql (U) Negative Normal Negative [facility] Comment on above: Order Comment: Speci men Type: URINE SPECIMENOrdering Facility: [facility] Address: [address] [place] [address] Performed By: #### 2 4356-8 ####CURRY LABORATORYCLIA [id number] [address] [place] Nitrite Ql (U) Negative Normal Negative [facility] Comment on above: Order Comment: Speci men Type: URINE SPECIMENOrdering Facility: [facility] Address: [address] [place] [address] Performed By: #### 2 4356-8 ####CURRY LABORATORYCLIA [id number] [address] [place] pH (U) 6.5 [pH] Normal 5.0-8.0 [facility] Comment on above: Order Comment: Speci men Type: URINE SPECIMENOrdering Facility: [facility] Address: [address] [place] [address] Performed By: #### 2 4356-8 ####[facility] LABORATORYCLIA [id number] [address] [place] Protein (U) [Mass/Vol] Negative Normal Negative [facility] Comment on above: Order Comment: Speci men Type: URINE SPECIMENOrdering Facility: [facility] Address: [address] [place] [address] Performed By: #### 2 4356-8 ####[facility] LABORATORYCLIA [id number] [place] [address] [place] RBC LM.HPF (Urine sed) [#/Area] 0-3 /HPF Normal 0-3 /HPF [facility] Comment on above: Order Comment: Speci men Type: URINE SPECIMENOrdering Facility: [facility] Address: [address] [place] [address] Performed By: #### 2 4356-8 ####[facility] LABORATORYCLIA [id number] [address] [place] Specific gravity (U) [Rel density] <=1.005 Low 1.005-1.030 [facility] Comment on above: Order Comment: Speci men Type: URINE SPECIMENOrdering Facility: [facility] Address: [address] [place] [address] Performed By: #### 2 4356-8 ####CURRY LABORATORYCLIA [id number] [address] Urobilinogen Ql (U) 0.2 EU/dL Normal 0.2-1.0 EU/dL [facility] Comment on above: Order Comment: Speci men Type: URINE SPECIMENOrdering Facility: [facility] Address: [address] [place] [address], [place] [address] Performed By: #### 2 4356-8 ####CURRY LABORATORYCLIA [id number] [address] WBC LM.HPF (Urine sed) [#/Area] 0-5 /HPF Normal 0-5 /HPF [facility] Comment on above: Order Comment: Speci men Type: URINE SPECIMENOrdering Facility: [facility] Address: [address] [address] Performed By: #### 2 4356-8 ####CURRY LABORATORYCLIA [id number] [place] [address] [place] aPTT PPPon 11-28-2022 aPTT Coag (PPP) [Time] 26.0 s Normal 23.0-32.4 [facility] Comment on above: Order Comment: Speci men Type: BLOOD SPECIMENOrdering Facility: [facility] Address: [address] [address] Performed By: #### 1 4979-9, 48615-3 ####CURRY LABORATORYCLIA [id number] [place] [address] [place] UA DIP, URINE (POC)on 2021 BILIRUBIN UA (POCT) Negative Negative [facility] CLARITY UA (POCT) [facility] COLOR UA (POCT) Yellow [facility] GLUCOSE UA (POCT) 500 mg/dL Abnormal Negative mg/dL [facility] HEMOGLOBIN/BLOOD UA (POCT) Negative Negative [facility] KETONE UA (POCT) Negative Negative mg/dL [facility] LEUKOCYTES UA (POCT) Trace Abnormal Negative [facility] NITRITE UA (POCT) Negative Negative [facility] PH UA (POCT) 6.0 4.5 - 8.0 [facility] Protein Ql (U) Negative Negative mg/dL [facility] SPECIFIC GRAVITY UA (POCT) 1.020 1.005 - 1.030 [facility] UROBILINOGEN UA (POCT) 0.2 E.U./dL Normal E.U./dL [facility] UA DIP, URINE (POC)on 2021 BILIRUBIN UA (POCT) Negative Negative [facility] CLARITY UA (POCT) [facility] COLOR UA (POCT) Yellow [facility] GLUCOSE UA (POCT) >=1000 Abnormal Negative mg/dL [facility] HEMOGLOBIN/BLOOD UA (POCT) Small Abnormal Negative [facility] KETONE UA (POCT) Negative Negative mg/dL [facility] LEUKOCYTES UA (POCT) Moderate Abnormal [facility] NITRITE UA (POCT) Positive Abnormal Negative [facility] PH UA (POCT) 5.5 4.5 - 8.0 [facility] Protein Ql (U) 30 mg/dL Abnormal Negative mg/dL [facility] SPECIFIC GRAVITY UA (POCT) 1.015 1.005 - 1.030 [facility] UROBILINOGEN UA (POCT) 0.2 E.U./dL Normal E.U./dL [facility] Absolute lymphocyte counton 06-13-2022 Lymphocytes Auto (Unsp spec) [#/Vol] 1.72 10*3/uL 0.83-4.51 [facility] Work Phone: Basophil percentageon 2021 Basophil percentage >100 SEEN /hpf 0-5 [facility] Work Phone: Basophils/100 WBC (Bld) 0.5 % 0-1 [facility] Work Phone: Bilirubin [Mass/Vol] 0.50 mg/dL 0.20-1.00 [facility] Work Phone: Comment on above: For patients on eltr ombopag therapy, use of Dimension [place] TBIL is not recommended. Chloride [Moles/Vol] 107 mmol/L 98-107 [facility] Work Phone: Eosinophils/100 WBC (Bld) 2.6 % 0-5 [facility] Work Phone: Glucose [Mass/Vol] 188 mg/dL 74-106 [facility] Work Phone: Comment on above: Fasting Glucose resu lt greater than or equal to 126 mg/dL suggests DIABETES MELLITUS per A.D.A. criteria. Neutrophils (Bld) [#/Vol] 7.5 10*3/uL 2.0-7.7 [facility] Work Phone: Neutrophils/100 WBC (Bld) 73.4 % 47-70 [facility] Work Phone: Potassium [Moles/Vol] 3.8 mmol/L 3.5-5.1 [facility]: Protein [Mass/Vol] 7.2 g/dL 6.4-8.2 [facility] Work Phone: Sodium [Moles/Vol] 139 mmol/L 136-145 [facility] Work Phone: WBC (Bld) [#/Vol] 10.1 10*3/uL 4.4-11.0 [facility] Work Phone: [phone] Bilirubin Test strip Ql (U)o n 06-13-2022 Bilirubin Ql (U) Negative Negative [facility] Work Phone: Blood erythrocytes count (nu mber/volume)on 06-13-2022 RBC (Bld) [#/Vol] 4.03 10*6/uL 4.2-5.4 [facility] Work Phone: Blood hemoglobin measurement (mass/volume)on 06-13-2022 Hemoglobin (Bld) [Mass/Vol] 12.2 g/dL 12.0-15.0 [facility] Work Phone: Blood lymphocytes/100 leukoc yteson 06-13-2022 Lymphocytes/100 WBC (Bld) 17.0 % 19-41 [facility] Work Phone: Blood monocytes/100 leukocyt eson 06-13-2022 Monocytes/100 WBC (Bld) 6.0 % 0-10 [facility] Work Phone: Blood platelet mean volumeon 06-13-2022 Platelet mean volume (Bld) [Entitic vol] 11.0 fL 6.2-12.0 [facility] Work Phone: [phone] Determination of erythrocyte mean corpuscular volume (MCV)on 06-13-2022 MCV (RBC) [Entitic vol] 88.6 fL 81-99 [facility] Work Phone: Hematocrit Auto (Bld) [Volum e fraction]on 06-13-2022 Hematocrit (Bld) [Volume fraction] 35.7 % 37-47 [facility] Work Phone: INR in Blood by Coagulation assayon 06-13-2022 INR Coag (Bld) [Relative time] 0.9 {INR} [facility] Work Phone: Ketones Test strip Ql (U)on 06-13-2022 Ketones Ql (U) Negative Negative [facility] Work Phone: Laboratory - Chemistry and C hemistry - challengeon 06-13-2022 ALP [Catalytic activity/Vol] 81 U/L 45-117 [facility] Work Phone: ALT [Catalytic activity/Vol] 23 U/L 13-56 [facility] Work Phone: CO2 [Moles/Vol] 26.0 mmol/L 21.0-32.0 [facility] Work Phone: Globulin (S) [Mass/Vol] 3.9 g/dL 2.2-4.2 [facility] Work Phone: Lipase [Catalytic activity/Vol] 65 U/L 73-393 [facility] Work Phone: Urea nitrogen/Creatinine [Mass ratio] 21.8 mg/mg 10-20 [facility] Work Phone: Laboratory - Coagulationon 0 06-13-2022 PT Coag (PPP) [Time] 12.1 s 11.7-14.9 [facility] Work Phone: Laboratory - Hematology and Cell countson 06-13-2022 Erythrocyte distribution width (RBC) [Entitic vol] 40.6 fL 35.1-43.9 [facility] Work Phone: Erythrocyte distribution width (RBC) [Ratio] 12.4 % 11.6-14.6 [facility] Work Phone: Immature granulocytes/100 WBC (Bld) 0.500 % 0.0-0.9 [facility] Work Phone: Comment on above: IG% - Immature Granu locytes (promyelocytes, myelocytes and metamyelocytes) > 1% indicates that a LEFT SHIFT is Present. MCH (RBC) [Entitic mass] 30.3 pg 27.0-32.0 [facility] Work Phone: Nucleated RBC/100 WBC (Bld) [Ratio] 0 % 0-5 [facility] Work Phone: MCHC Auto (RBC) [Mass/Vol]on 06-13-2022 MCHC (RBC) [Mass/Vol] 34.2 g/dL 32-36 [facility] Work Phone: Mucus LM Ql (Urine sed)on Mucus Ql (Urine sed) 0 SEEN /hpf [facility] Work Phone: Nitrite Test strip Ql (U)on 06-13-2022 Nitrite Ql (U) Positive Negative [facility] Work Phone: No Panel Informationon 06-13 Estimated Creatinine Clearance Calc 91.08 ml/min [facility] Work Phone: Estimated GFR (MDRD) Amer 98 mL/min >60 [facility] Work Phone: Comment on above: GFR Calc Estimated GFR (MDRD) Non-Af Amer 81 mL/min >60 [facility] Work Phone: Comment on above: Non- GFR Calc Platelets bldon 06-13-2022 Platelets (Bld) [#/Vol] 229 10*3/uL 150-450 [facility] Work Phone: Protein Test strip Ql (U)on 06-13-2022 Protein Ql (U) 30 mg/dl Negative [facility] Work Phone: [phone] Serum or plasma albumin boogie urement (mass/volume)on 06-13-2022 Albumin [Mass/Vol] 3.3 g/dL 3.2-5.0 [facility] Work Phone: Serum or plasma albumin/glob ulin mass ratioon 06-13-2022 Albumin/Globulin [Mass ratio] 0.8 {ratio} 0.9-2.4 [facility] Work Phone: Serum or plasma calcium boogie urement (mass/volume)on 06-13-2022 Calcium [Mass/Vol] 8.8 mg/dL 8.5-10.1 [facility] Work Phone: [phone] Serum or plasma creatinine m easurement (mass/volume)on 06-13-2022 Creatinine [Mass/Vol] 0.82 mg/dL 0.55-1.02 [facility] Work Phone: Comment on above: The validity of the calculated GFR & GFRAA in patients over 70 years has not been determined. Clinical correlation is essential. Serum or plasma urea nitroge n measurement (mass/volume)on 06-13-2022 Urea nitrogen [Mass/Vol] 18 mg/dL 7-18 [facility] Work Phone: [phone] Squamous epithelial cells de tection in urine sediment by light microscopyon 06-13-2022 Epithelial cells.squamous LM Ql (Urine sed) 0-5 SEEN /hpf 5-10 [facility] Work Phone: Thin prep Papanicolaou smear with manual screeningon 06-13-2022 Thin prep Papanicolaou smear with manual screening 11 U/L 15-37 [facility] Work Phone: [phone] Thin prep Papanicolaou smear with manual screening 6 5-15 [facility] Work Phone: Urine blood detectionon 08-0 RBC Ql (U) 250 /ul Negative [facility] Work Phone: RBC Ql (U) 0 SEEN /hpf 0-5 [facility] Work Phone: Urine clarityon 06-13-2022 Clarity (U) Clear Clear [facility] Work Phone: Urine color determinationon 06-13-2022 Color (U) Yellow Yellow [facility] Work Phone: Urine glucose detectionon Glucose Ql (U) Normal mg/dl Normal [facility] Work Phone: Urine leukocyte esterase det ection by dipstickon 06-13-2022 Leukocyte esterase Test strip Ql (U) 500 /ul Negative [facility] Work Phone: Urine pHon 06-13-2022 pH (U) 6.0 [pH] 5.0 - 8.0 [facility] Work Phone: Urine sediment bacteria coun t by microscopy (number/high power field)on 06-13-2022 Bacteria LM.HPF (Urine sed) [#/Area] 1 /[HPF] None Seen [facility] Work Phone: Urine specific gravity measu rementon 06-13-2022 Specific gravity (U) [Rel density] 1.010 1.002-1.030 [facility] Work Phone: Urobilinogen Auto test strip Ql (U)on 06-13-2022 Urobilinogen Ql (U) Normal mg/dl Normal [facility] Work Phone: GLUCOSE POCon 05-21-2022 Glucose [Mass/Vol] 122 mg/dL High 70 - 99 mg/dL [facility] Glucose [Mass/Vol] 159 mg/dL High 70 - 99 mg/dL [facility] Comment on above: Notified RNread back Glucose [Mass/Vol] 148 mg/dL High 70 - 99 mg/dL [facility] Interpretation and review of laboratory results Abnormal [facility] POC Sample Type VENO [facility] Test performed at address of the patient encounter. [facility] HCG ( test) Ql (U)O rdered By: Eder Greene on 05-21-2022 Beta HCG ( test) Ql Negative Negative [facility] Interpretation and review of laboratory results Normal [facility] HCG QUALITATIVE, URINEon Beta HCG ( test) Ql (U) Negative Normal Negative [facility] Comment on above: Performed By: #### U HCG #### [facility] (DEFAULT) [address] [place] [address] No Panel Informationon 05-21 Interpretation and review of laboratory results Abnormal [facility] POC Sample Type CAPBL [facility] Test performed at address of the patient encounter. [facility] US Unspecified body region d uring surgeryOrdered By: Unassigned Pacs on 05-21-2022 [facility] Work Phone: US Unspecified body region d uring surgeryon 05-21-2022 Radiology Study observation (narrative) [facility] MRI LIVER WO/W IVCONon 05-07 [facility] CBC W Auto Differential pane l (Bld)on 04-22-2022 Abs Immature Gran 0.03 k/uL <0.10 k/uL [facility] Basophils (Bld) [#/Vol] 0.05 10*3/uL <0.11 k/uL [facility] Basophils/100 WBC (Bld) 0.6 % [facility] Differential cell count method Nom (Bld) Auto [facility] Eosinophils (Bld) [#/Vol] 0.13 10*3/uL <0.46 k/uL [facility] Eosinophils/100 WBC (Bld) 1.6 % [facility] Erythrocyte distribution width (RBC) [Ratio] 13.2 % 11.5 - 15.0 % [facility] Hematocrit (Bld) [Volume fraction] 44.0 % 36.0 - 46.0 % [facility] Hemoglobin (Bld) [Mass/Vol] 13.0 g/dL 11.5 - 15.5 g/dL [facility] Immature Gran % 0.4 % [facility] Lymphocytes (Bld) [#/Vol] 2.18 10*3/uL 1.00 - 4.00 k/uL [facility] Lymphocytes/100 WBC (Bld) 26.9 % [facility] MCH (RBC) [Entitic mass] 29.1 pg 26.0 - 34.0 pg [facility] MCHC (RBC) [Mass/Vol] 29.5 g/dL Low 30.5 - 36.0 g/dL [facility] MCV (RBC) [Entitic vol] 98.4 fL 80.0 - 100.0 fL [facility] Monocytes (Bld) [#/Vol] 0.42 10*3/uL <0.87 k/uL [facility] Monocytes/100 WBC (Bld) 5.2 % [facility] Neutrophils (Bld) [#/Vol] 5.30 10*3/uL 1.45 - 7.50 k/uL [facility] Neutrophils/100 WBC (Bld) 65.3 % [facility] Nucleated RBC (Bld) [#/Vol] 10*3/uL <0.01 k/uL [facility] Nucleated RBC/100 WBC (Bld) [Ratio] 0.0 /100 WBC [facility] Platelet mean volume (Bld) [Entitic vol] 12.0 fL 9.0 - 12.7 fL [facility] Platelets (Bld) [#/Vol] 214 10*3/uL 150 - 400 k/uL [facility] RBC (Bld) [#/Vol] 4.47 10*6/uL 3.90 - 5.2 0 m/uL [facility] WBC (Bld) [#/Vol] 8.11 10*3/uL 3.70 - 11.00 k/uL [facility] Comprehensive metabolic 2000 panelon 04-22-2022 Albumin [Mass/Vol] 3.9 g/dL 3.9 - 4.9 g/dL [facility] ALP [Catalytic activity/Vol] 90 U/L 34 - 123 U/L [facility] ALT [Catalytic activity/Vol] 25 U/L 7 - 38 U/L [facility] Anion gap [Moles/Vol] 17 mmol/L 9 - 18 mmol/L [facility] AST [Catalytic activity/Vol] 19 U/L 13 - 35 U/L [facility] Bilirubin [Mass/Vol] 0.2 mg/dL 0.2 - 1 .3 mg/dL [facility] Calcium [Mass/Vol] 9.4 mg/dL 8.5 - 10. 2 mg/dL [facility] Chloride [Moles/Vol] 105 mmol/L 97 - 10 5 mmol/L [facility] CO2 [Moles/Vol] 22 mmol/L 22 - 30 mmol/L [facility] Creatinine [Mass/Vol] 0.71 mg/dL 0.58 - 0.96 mg/dL [facility] Estimated Glomerular Filtration Rate 110 mL/min/1.73m >=60 mL/min/1.73 m [facility] Glucose [Mass/Vol] 151 mg/dL High 74 - 99 mg/dL [facility] Potassium [Moles/Vol] 4.1 mmol/L 3.7 - 5.1 mmol/L [facility] Protein [Mass/Vol] 6.6 g/dL 6.3 - 8.0 g/dL [facility] Sodium [Moles/Vol] 144 mmol/L 136 - 144 mmol/L [facility] Urea nitrogen [Mass/Vol] 18 mg/dL 7 - 21 mg/dL [facility] CT ABDOMEN/PELVIS WITHOUT CO NTRASTon 03-17-2022 [...] error, please notify the sender immediately at [phone] and permanently delete the original report and destroy any copies or printouts. Normal [facility] CT Abdomen and Pelvis WO con traston [...] error, please notify the sender immediately at [phone] and permanently delete the original report and [...] error, please notify the sender immediately at [phone] and permanently delete the original report and destroy any copies or printouts. [facility] Radiology Study observation (narrative) [facility] CT Abdomen and Pelvis WO con trastOrdered By: Joann Botello on 03-17-2022 [facility] CORONAVIRUS PCR [CCL]on 10-08 COVID 19 Result ENVIRONMENTAL SAFETY SPECIALIST Negative Normal [facility] Comment on above: Result Comment: Nega tive for COVID19 (SARS CoV2) by PCR. This test was developed and its performance characteristics determined by [facility] [place]. This test has been authorized by FDA under an Emergency Use Authorization (EUA). This test has been validated in accordance with the FDA's Guidance Document Policy for Diagnostics Testing in Laboratories Certified to Perform High Complexity Testing under CLIA prior to Emergency use Authorization for Coronavirus Disease 2019 during the Public Health Emergency issued on January 05, 2020. [address] [place] [address] Rohan Morales III, M.D. [id number] Performed By: #### [id number] #### [address] [address] COVID 19 Source ENVIRONMENTAL SAFETY SPECIALIST Nasopharyngeal Swab Normal [facility] Comment on above: Result Comment: Leon ected on 10/25 AT 1338: Previously reported as ENVIRONMENTAL SAFETY SPECIALIST Performed By: #### [id number] #### [address] [address] Coronavirus 2019on 0 COVID 19 Result ENVIRONMENTAL SAFETY SPECIALIST Normal Negative for COVID19 (SARS CoV2) by PCR. [facility] Comment on above: Result Comment: Nega tive for This test was developed and its performance characteristics determined by [facility] Pathology and Laboratory Medicine [place]. This test has been authorized by FDA [...] developed and its performance characteristics determined by [facility]'s [facility] Pathology and Laboratory Medicine [place]. This test has been authorized by FDA [...] developed and its performance characteristics determined by [facility]'s [facility] Pathology and Laboratory Medicine [place]. This test has been authorized by FDA [...] 2020. Coronavirus 2019on 0 COVID 19 Source ENVIRONMENTAL SAFETY SPECIALIST Normal [facility] Comment on above: Result Comment: Naso pharyngeal Corrected on 10/25 AT 1338: Previously reported as ENVIRONMENTAL SAFETY SPECIALIST Swab Corrected on 10/25 AT 1338: Previously reported as ENVIRONMENTAL SAFETY SPECIALIST Vital Signs Date Time Vital Sign Value Performing Clinician Facility 10-22-2024 07:44-0500 Diastolic blood pressure 85 mm[Hg] Jean Claude Huitron MD Work Phone: [facility] Comment on above: jacob bp average 10-22-2024 07:44-0500 Systolic blood pressure 141 mm[Hg] Jean Claude Huitron MD Work Phone: [facility] Comment on above: jacob bp average 10-22-2024 07:31-0500 Body height 172.7 cm Jean Claude Huitron MD Work Phone: [facility] 10-22-2024 07:31-0500 Body mass index (BMI) [Ratio] 36.34 kg/m2 Jean Claude Huitron MD Work Phone: [facility] 10-22-2024 07:31-0500 Body weight 108.41 kg Jean Claude Huitron MD Work Phone: [facility] 10-22-2024 07:31-0500 Heart rate 94 /min Jean Claude Huitron MD Work Phone: [facility] 10-22-2024 07:31-0500 Respiratory rate 12 /min Jean Claude Huitron MD Work Phone: [facility] 10-22-2024 07:31-0500 SaO2% (BldA) [Mass fraction] 98 % Jean Claude Huitron MD Work Phone: [facility] 09-25-2024 07:24-0500 Body mass index (BMI) [Ratio] 37.07 kg/m2 Irlanda Podlogar INSTRUMENTATION AND CONTROLS TECHNICIAN.SPRINKLING SYSTEM IRRIGATOR Work Phone: [facility] 09-25-2024 07:24-0500 Body weight 110.6 kg Irlanda Podlogar INSTRUMENTATION AND CONTROLS TECHNICIAN.SPRINKLING SYSTEM IRRIGATOR Work Phone: [facility] 09-25-2024 07:24-0500 Diastolic blood pressure 88 mm[Hg] Irlanda Podlogar INSTRUMENTATION AND CONTROLS TECHNICIAN.SPRINKLING SYSTEM IRRIGATOR Work Phone: [facility] 09-25-2024 07:24-0500 Heart rate 82 /min Irlanda Podlogar INSTRUMENTATION AND CONTROLS TECHNICIAN.SPRINKLING SYSTEM IRRIGATOR Work Phone: [facility] 09-25-2024 07:24-0500 Respiratory rate 16 /min Irlanda Podlogar INSTRUMENTATION AND CONTROLS TECHNICIAN.SPRINKLING SYSTEM IRRIGATOR Work Phone: [facility] 09-25-2024 07:24-0500 SaO2% (BldA) [Mass fraction] 96 % Irlanda Podlogar INSTRUMENTATION AND CONTROLS TECHNICIAN.SPRINKLING SYSTEM IRRIGATOR Work Phone: [facility] 09-25-2024 07:24-0500 Systolic blood pressure 136 mm[Hg] Irlanda Hogan APRN.SPRINKLING SYSTEM IRRIGATOR Work Phone: [facility] 09-16-2024 10:44-0500 Body mass index (BMI) [Ratio] 36.84 kg/m2 Rony Chávez APRN.SPRINKLING SYSTEM IRRIGATOR Work Phone: [facility] 09-16-2024 10:44-0500 Body temperature 98.6 [degF] Rony Chávez APRN.SPRINKLING SYSTEM IRRIGATOR Work Phone: [facility] 09-16-2024 10:44-0500 Body weight 109.9 kg Rony Chávez APRN.SPRINKLING SYSTEM IRRIGATOR Work Phone: [facility] 09-16-2024 10:44-0500 Diastolic blood pressure 80 mm[Hg] Rony Chávez APRN.SPRINKLING SYSTEM IRRIGATOR Work Phone: [facility] 09-16-2024 10:44-0500 Heart rate 95 /min Rony Chávez APRN.SPRINKLING SYSTEM IRRIGATOR Work Phone: [facility] 09-16-2024 10:44-0500 Respiratory rate 21 /min Rony Chávez APRN.SPRINKLING SYSTEM IRRIGATOR Work Phone: [facility] 09-16-2024 10:44-0500 SaO2% (BldA) [Mass fraction] 96 % Rony Chávez APRN.SPRINKLING SYSTEM IRRIGATOR Work Phone: [facility] 09-16-2024 10:44-0500 Systolic blood pressure 130 mm[Hg] Rony Chávez APRN.SPRINKLING SYSTEM IRRIGATOR Work Phone: [facility] 07-11-2024 13:57-0400 Body mass index (BMI) [Ratio] 37.54 kg/m2 Letitia Odell APRN.SPRINKLING SYSTEM IRRIGATOR Work Phone: [facility] 07-11-2024 13:57-0400 Body temperature 98.01 [degF] Letitia Odell APRN.SPRINKLING SYSTEM IRRIGATOR Work Phone: [facility] 07-11-2024 13:57-0400 Body weight 112 kg Letitia Praisler-Wood INSTRUMENTATION AND CONTROLS TECHNICIAN.SPRINKLING SYSTEM IRRIGATOR Work Phone: [facility] 07-11-2024 13:57-0400 Diastolic blood pressure 82 mm[Hg] Letitia Praisler-Wood INSTRUMENTATION AND CONTROLS TECHNICIAN.SPRINKLING SYSTEM IRRIGATOR Work Phone: [facility] 07-11-2024 13:57-0400 Heart rate 88 /min Letitia Praisler-Wood INSTRUMENTATION AND CONTROLS TECHNICIAN.SPRINKLING SYSTEM IRRIGATOR Work Phone: [facility] 07-11-2024 13:57-0400 Respiratory rate 18 /min Letitia Praisler-Wood INSTRUMENTATION AND CONTROLS TECHNICIAN.SPRINKLING SYSTEM IRRIGATOR Work Phone: [facility] 07-11-2024 13:57-0400 SaO2% (BldA) [Mass fraction] 98 % Letitia Praisler-Wood INSTRUMENTATION AND CONTROLS TECHNICIAN.SPRINKLING SYSTEM IRRIGATOR Work Phone: [facility] 07-11-2024 13:57-0400 Systolic blood pressure 128 mm[Hg] Letitia Praisler-Wood INSTRUMENTATION AND CONTROLS TECHNICIAN.SPRINKLING SYSTEM IRRIGATOR Work Phone: [facility] 05-28-2024 15:08-0400 Blood Pressure Cuff Size DR RIKI COATES MD [facility] 05-28-2024 15:08-[address] RIKI COATES MD [facility] 05-28-2024 15:08-[address] RIKI COATES MD [facility] 05-28-2024 15:08-0400 Body height 172.[address] RKII COATES MD [facility] 05-28-2024 15:08-0400 Body temperature 97.16 [degF] DR RIKI COATES MD [facility] 05-28-2024 15:08-0400 Body weight [address] RIKI COATES MD [facility] 05-28-2024 15:08-0400 Diastolic Blood Pressure Non-Invasive 104 mm[Hg] DR RIKI COATES MD [facility] 05-28-2024 15:08-0400 Heart rate 86 /min DR RIKI COATES MD [facility] 05-28-2024 15:08-0400 Respiratory rate 18 /min DR RIKI COAETS MD [facility] 05-28-2024 15:08-0400 Systolic Blood Pressure Non-Invasive 172 mm[Hg] DR RIKI COTAES MD [facility] 04-06-2024 07:50-0400 Body mass index (BMI) [Ratio] 38.35 kg/m2 Jean Claude Huitron MD Work Phone: [facility] 04-06-2024 07:50-0400 Body weight 114.4 kg Jean Claude Huitron MD Work Phone: [facility] 04-06-2024 07:50-0400 Diastolic blood pressure 80 mm[Hg] Jean Claude Huitron MD Work Phone: [facility] 04-06-2024 07:50-0400 Heart rate 80 /min Jean Claude Huitron MD Work Phone: [facility] 04-06-2024 07:50-0400 Respiratory rate 16 /min Jean Claude Huitron MD Work Phone: [facility] 04-06-2024 07:50-0400 SaO2% (BldA) [Mass fraction] 98 % Jean Claude Huitron MD Work Phone: [facility] 04-06-2024 07:50-0400 Systolic blood pressure 136 mm[Hg] Jean Claude Huitron MD Work Phone: [facility] 09-30-2023 14:00-0500 Diastolic Blood Pressure Non-Invasive 74 mm[Hg] CAPRICE MONTANO MD [facility] 09-30-2023 14:00-0500 Heart rate 78 /min CAPRICE MONTANO MD [facility] 09-30-2023 14:00-0500 Systolic Blood Pressure Non-Invasive 126 mm[Hg] CAPRICE MONTANO MD [facility] 09-30-2023 12:09-0500 Body height 173 cm CAPRICE MONTANO MD [facility] 09-30-2023 12:09-0500 Body temperature 98.78 [degF] CAPRICE MONTANO MD [facility] 09-30-2023 12:09-0500 Body weight 104.5 kg CAPRICE MONTANO MD [facility] 09-30-2023 12:09-0500 Diastolic Blood Pressure Non-Invasive 85 mm[Hg] CAPRICE MONTANO MD [facility] 09-30-2023 12:09-0500 Heart rate 100 /min CAPRICE MONTANO MD [facility] 09-30-2023 12:09-0500 Respiratory rate 16 /min CAPRICE MONTANO MD [facility] 09-30-2023 12:09-0500 Systolic Blood Pressure Non-Invasive 130 mm[Hg] CAPRICE MONTANO MD [facility] 09-22-2023 18:02-0500 Body height 172 cm MYA MYERS MD [facility] 09-22-2023 18:02-0500 Body temperature 99.14 [degF] MYA MYERS MD [facility] 09-22-2023 18:02-0500 Body weight 104 kg MYA MYERS MD [facility] 09-22-2023 18:02-0500 Diastolic Blood Pressure Non-Invasive 87 mm[Hg] MYA MYERS MD [facility] 09-22-2023 18:02-0500 Heart rate 105 /min MYA MYERS MD [facility] 09-22-2023 18:02-0500 Respiratory rate 20 /min MYA MYERS MD [facility] 09-22-2023 18:02-0500 Systolic Blood Pressure Non-Invasive 143 mm[Hg] MYA MYERS MD [facility] 06-03-2023 11:10-0400 Body weight 109.32 kg Jean Claude Huitron MD Work Phone: [facility] 06-03-2023 11:10-0400 Diastolic blood pressure 78 mm[Hg] Jean Claude Huitron MD Work Phone: [facility] 06-03-2023 11:10-0400 Heart rate 80 /min Jean Claude Huitron MD Work Phone: [facility] 06-03-2023 11:10-0400 Respiratory rate 16 /min Jean Claude Huitron MD Work Phone: [facility] 06-03-2023 11:10-0400 Systolic blood pressure 128 mm[Hg] Jean Claude Huitron MD Work Phone: [facility] 04-13-2023 19:54-0400 Diastolic blood pressure 89 mm[Hg] [facility] 04-13-2023 19:54-0400 Heart rate 102 /min [facility] 04-13-2023 19:54-0400 Respiratory rate 16 /min [facility] 04-13-2023 19:54-0400 SaO2% (BldA) [Mass fraction] 99 % [facility] 04-13-2023 19:54-0400 Systolic blood pressure 142 mm[Hg] [facility] 04-13-2023 17:27-0400 Body height 172.72 cm [facility] 04-13-2023 17:27-0400 Body mass index (BMI) [Ratio] 80.6 kg/m2 [facility] 04-13-2023 17:27-0400 Body temperature 97.5 [degF] [facility] 04-13-2023 17:27-0400 Body weight 240.7 kg [facility] 04-05-2023 09:21-0400 Body temperature 98.01 [degF] Letitia Praisler-Wood INSTRUMENTATION AND CONTROLS TECHNICIAN.SPRINKLING SYSTEM IRRIGATOR Work Phone: [facility] 04-05-2023 09:21-0400 Body weight 107.59 kg Letitia Praisler-Wood INSTRUMENTATION AND CONTROLS TECHNICIAN.SPRINKLING SYSTEM IRRIGATOR Work Phone: [facility] 04-05-2023 09:21-0400 Diastolic blood pressure 82 mm[Hg] Letitia Praisler-Wood INSTRUMENTATION AND CONTROLS TECHNICIAN.SPRINKLING SYSTEM IRRIGATOR Work Phone: [facility] 04-05-2023 09:21-0400 Heart rate 98 /min Letitia Praisler-Wood INSTRUMENTATION AND CONTROLS TECHNICIAN.SPRINKLING SYSTEM IRRIGATOR Work Phone: [facility] 04-05-2023 09:21-0400 Respiratory rate 16 /min Letitia Praisler-Wood INSTRUMENTATION AND CONTROLS TECHNICIAN.SPRINKLING SYSTEM IRRIGATOR Work Phone: [facility] 04-05-2023 09:21-0400 SaO2% (BldA) [Mass fraction] 98 % Letitia Praisler-Wood INSTRUMENTATION AND CONTROLS TECHNICIAN.SPRINKLING SYSTEM IRRIGATOR Work Phone: [facility] 04-05-2023 09:21-0400 Systolic blood pressure 126 mm[Hg] Letitia Praisler-Wood INSTRUMENTATION AND CONTROLS TECHNICIAN.SPRINKLING SYSTEM IRRIGATOR Work Phone: [facility] 02-27-2023 15:04-0400 Body weight 110.68 kg Bobbi Older INSTRUMENTATION AND CONTROLS TECHNICIAN.SPRINKLING SYSTEM IRRIGATOR Work Phone: [facility] 02-27-2023 15:04-0400 Diastolic blood pressure 78 mm[Hg] Bobbi Older INSTRUMENTATION AND CONTROLS TECHNICIAN.SPRINKLING SYSTEM IRRIGATOR Work Phone: [facility] 02-27-2023 15:04-0400 Heart rate 98 /min Bobbi Older INSTRUMENTATION AND CONTROLS TECHNICIAN.SPRINKLING SYSTEM IRRIGATOR Work Phone: [facility] 02-27-2023 15:04-0400 Respiratory rate 16 /min Bobbi Older INSTRUMENTATION AND CONTROLS TECHNICIAN.SPRINKLING SYSTEM IRRIGATOR Work Phone: [facility] 02-27-2023 15:04-0400 SaO2% (BldA) [Mass fraction] 98 % Bobbi Older INSTRUMENTATION AND CONTROLS TECHNICIAN.SPRINKLING SYSTEM IRRIGATOR Work Phone: [facility] 02-27-2023 15:04-0400 Systolic blood pressure 128 mm[Hg] Bobbi Older INSTRUMENTATION AND CONTROLS TECHNICIAN.SPRINKLING SYSTEM IRRIGATOR Work Phone: [facility] 01-14-2023 08:12-0500 Body weight 109.5 kg Jean Claude Huitron MD Work Phone: [facility] 01-14-2023 08:12-0500 Diastolic blood pressure 78 mm[Hg] Jean Claude Huitron MD Work Phone: [facility] 01-14-2023 08:12-0500 Heart rate 87 /min Jean Claude Huitron MD Work Phone: [facility] 01-14-2023 08:12-0500 Respiratory rate 16 /min Jean Claude Huitron MD Work Phone: [facility] 01-14-2023 08:12-0500 SaO2% (BldA) [Mass fraction] 97 % Jean Claude Huitron MD Work Phone: [facility] 01-14-2023 08:12-0500 Systolic blood pressure 128 mm[Hg] Jean Claude Huitron MD Work Phone: [facility] 12-02-2022 15:36-0500 Body weight 111.13 kg Jean Claude Huitron MD Work Phone: [facility] 12-02-2022 15:36-0500 Diastolic blood pressure 80 mm[Hg] Jean Claude Huitron MD Work Phone: [facility] 12-02-2022 15:36-0500 Heart rate 90 /min Jean Claude Huitron MD Work Phone: [facility] 12-02-2022 15:36-0500 Respiratory rate 16 /min Jean Claude Huitron MD Work Phone: [facility] 12-02-2022 15:36-0500 SaO2% (BldA) [Mass fraction] 99 % Jean Claude Huitron MD Work Phone: [facility] 12-02-2022 15:36-0500 Systolic blood pressure 138 mm[Hg] Jean Claude Huitron MD Work Phone: [facility] 11-25-2022 13:39-0500 Body temperature 98.2 [degF] Letitia Praisler-Wood INSTRUMENTATION AND CONTROLS TECHNICIAN.SPRINKLING SYSTEM IRRIGATOR Work Phone: [facility] 11-25-2022 13:39-0500 Body weight 109.32 kg Letitia Praisler-Wood INSTRUMENTATION AND CONTROLS TECHNICIAN.SPRINKLING SYSTEM IRRIGATOR Work Phone: [facility] 11-25-2022 13:39-0500 Diastolic blood pressure 98 mm[Hg] Letitia Praisler-Wood INSTRUMENTATION AND CONTROLS TECHNICIAN.SPRINKLING SYSTEM IRRIGATOR Work Phone: [facility] 11-25-2022 13:39-0500 Heart rate 120 /min Letitia Praisler-Wood INSTRUMENTATION AND CONTROLS TECHNICIAN.SPRINKLING SYSTEM IRRIGATOR Work Phone: [facility] 11-25-2022 13:39-0500 Respiratory rate 21 /min Letitia Praisler-Wood INSTRUMENTATION AND CONTROLS TECHNICIAN.SPRINKLING SYSTEM IRRIGATOR Work Phone: [facility] 11-25-2022 13:39-0500 SaO2% (BldA) [Mass fraction] 97 % Letitia Praisler-Wood INSTRUMENTATION AND CONTROLS TECHNICIAN.SPRINKLING SYSTEM IRRIGATOR Work Phone: [facility] 11-25-2022 13:39-0500 Systolic blood pressure 128 mm[Hg] Letitia Praisler-Wood INSTRUMENTATION AND CONTROLS TECHNICIAN.SPRINKLING SYSTEM IRRIGATOR Work Phone: [facility] 08-30-2022 09:13-0400 Diastolic blood pressure 86 mm[Hg] [facility] Work Phone: 08-30-2022 09:13-0400 Heart rate 99 /min [facility] Work Phone: 08-30-2022 09:13-0400 Respiratory rate 16 /min [facility] Work Phone: 08-30-2022 09:13-0400 SaO2% (BldA) [Mass fraction] 98 % [facility] Work Phone: 08-30-2022 09:13-0400 Systolic blood pressure 148 mm[Hg] [facility] Work Phone: 08-30-2022 07:59-0400 Body height 172.72 cm [facility] Work Phone: 08-30-2022 07:59-0400 Body mass index (BMI) [Ratio] 40.9 kg/m2 [facility] Work Phone: 08-30-2022 07:59-0400 Body temperature 98.3 [degF] [facility] Work Phone: 08-30-2022 07:59-0400 Body weight 122.1 kg [facility] Work Phone: 07-14-2022 08:00-0400 Body temperature 97.81 [degF] Irlanda Podlogar INSTRUMENTATION AND CONTROLS TECHNICIAN.SPRINKLING SYSTEM IRRIGATOR Work Phone: [facility] 07-14-2022 08:00-0400 Body weight 111.4 kg Irlanda Podlogar INSTRUMENTATION AND CONTROLS TECHNICIAN.SPRINKLING SYSTEM IRRIGATOR Work Phone: [facility] 07-14-2022 08:00-0400 Diastolic blood pressure 84 mm[Hg] Irlanda Podlogar INSTRUMENTATION AND CONTROLS TECHNICIAN.SPRINKLING SYSTEM IRRIGATOR Work Phone: [facility] 07-14-2022 08:00-0400 Heart rate 95 /min Irlanda Greenelogar INSTRUMENTATION AND CONTROLS TECHNICIAN.SPRINKLING SYSTEM IRRIGATOR Work Phone: [facility] 07-14-2022 08:00-0400 SaO2% (BldA) [Mass fraction] 100 % Irlanda Podlogar INSTRUMENTATION AND CONTROLS TECHNICIAN.SPRINKLING SYSTEM IRRIGATOR Work Phone: [facility] 07-14-2022 08:00-0400 Systolic blood pressure 122 mm[Hg] Irlanda Podlogar INSTRUMENTATION AND CONTROLS TECHNICIAN.SPRINKLING SYSTEM IRRIGATOR Work Phone: [facility] 07-07-2022 10:59-0400 Body temperature 97.5 [degF] Irlanda Podlogar INSTRUMENTATION AND CONTROLS TECHNICIAN.SPRINKLING SYSTEM IRRIGATOR Work Phone: [facility] 07-07-2022 10:59-0400 Body weight 110.5 kg Irlanda Podlogar INSTRUMENTATION AND CONTROLS TECHNICIAN.SPRINKLING SYSTEM IRRIGATOR Work Phone: [facility] 07-07-2022 10:59-0400 Diastolic blood pressure 76 mm[Hg] Irlanda Podlogar INSTRUMENTATION AND CONTROLS TECHNICIAN.SPRINKLING SYSTEM IRRIGATOR Work Phone: [facility] 07-07-2022 10:59-0400 Heart rate 101 /min Irlanda Podlogar INSTRUMENTATION AND CONTROLS TECHNICIAN.SPRINKLING SYSTEM IRRIGATOR Work Phone: [facility] 07-07-2022 10:59-0400 Respiratory rate 16 /min Irlanda Podlogar INSTRUMENTATION AND CONTROLS TECHNICIAN.SPRINKLING SYSTEM IRRIGATOR Work Phone: [facility] 07-07-2022 10:59-0400 SaO2% (BldA) [Mass fraction] 100 % Irlanda Podlogar INSTRUMENTATION AND CONTROLS TECHNICIAN.SPRINKLING SYSTEM IRRIGATOR Work Phone: [facility] 07-07-2022 10:59-0400 Systolic blood pressure 128 mm[Hg] Irlanda Podlogar INSTRUMENTATION AND CONTROLS TECHNICIAN.SPRINKLING SYSTEM IRRIGATOR Work Phone: [facility] 06-13-2022 16:21-0400 Diastolic blood pressure 90 mm[Hg] [facility] Work Phone: 06-13-2022 16:21-0400 Heart rate 88 /min [facility] Work Phone: 06-13-2022 16:21-0400 Respiratory rate 16 /min [facility] Work Phone: 06-13-2022 16:21-0400 SaO2% (BldA) [Mass fraction] 97 % [facility] Work Phone: 06-13-2022 16:21-0400 Systolic blood pressure 142 mm[Hg] [facility] Work Phone: 06-13-2022 10:42-0400 Body height 172.72 cm [facility] Work Phone: 06-13-2022 10:42-0400 Body mass index (BMI) [Ratio] 36.5 kg/m2 [facility] Work Phone: 06-13-2022 10:42-0400 Body temperature 97.6 [degF] [facility] Work Phone: 06-13-2022 10:42-0400 Body weight 108.86 kg [facility] Work Phone: 06-08-2022 11:20-0400 Body height 172.7 cm Joann Flower INSTRUMENTATION AND CONTROLS TECHNICIAN-SPRINKLING SYSTEM IRRIGATOR Work Phone: [facility] 06-08-2022 11:20-0400 Body mass index (BMI) [Ratio] 37.21 kg/m2 Joann Flower INSTRUMENTATION AND CONTROLS TECHNICIAN-SPRINKLING SYSTEM IRRIGATOR Work Phone: [facility] 06-08-2022 11:20-0400 Body temperature 98.2 [degF] Joann Flower INSTRUMENTATION AND CONTROLS TECHNICIAN-SPRINKLING SYSTEM IRRIGATOR Work Phone: [facility] 06-08-2022 11:20-0400 Body weight 111 kg Joann Flower INSTRUMENTATION AND CONTROLS TECHNICIAN-SPRINKLING SYSTEM IRRIGATOR Work Phone: [facility] 06-08-2022 11:20-0400 Diastolic blood pressure 80 mm[Hg] Joann Flower INSTRUMENTATION AND CONTROLS TECHNICIAN-SPRINKLING SYSTEM IRRIGATOR Work Phone: [facility] 06-08-2022 11:20-0400 Heart rate 86 /min Joann Flower INSTRUMENTATION AND CONTROLS TECHNICIAN-SPRINKLING SYSTEM IRRIGATOR Work Phone: [facility] 06-08-2022 11:20-0400 SaO2% (BldA) [Mass fraction] 98 % Joann Flower INSTRUMENTATION AND CONTROLS TECHNICIAN-SPRINKLING SYSTEM IRRIGATOR Work Phone: [facility] 06-08-2022 11:20-0400 Systolic blood pressure 139 mm[Hg] Joann Flower INSTRUMENTATION AND CONTROLS TECHNICIAN-SPRINKLING SYSTEM IRRIGATOR Work Phone: [facility] 05-21-2022 11:45-0400 Body temperature 98.01 [degF] Roxana Moore MD Work Phone: [facility] 05-21-2022 11:45-0400 Diastolic blood pressure 69 mm[Hg] Roxana Moore MD Work Phone: [facility] 05-21-2022 11:45-0400 Heart rate 98 /min Roxana Moore MD Work Phone: [facility] 05-21-2022 11:45-0400 Respiratory rate 13 /min Roxana Moore MD Work Phone: [facility] 05-21-2022 11:45-0400 SaO2% (BldA) [Mass fraction] 97 % Roxana Moore MD Work Phone: [facility] 05-21-2022 11:45-0400 Systolic blood pressure 134 mm[Hg] Roxana Moore MD Work Phone: [facility] 04-22-2022 13:09-0400 Body height 168.3 cm Jean Claude Huitron MD Work Phone: [facility] 04-22-2022 13:09-0400 Body temperature 97.7 [degF] Jean Claude Huitron MD Work Phone: [facility] 04-22-2022 13:09-0400 Body weight 107.59 kg Jean Claude Huitron MD Work Phone: [facility] 04-22-2022 13:09-0400 Diastolic blood pressure 84 mm[Hg] Jean Claude Huitron MD Work Phone: [facility] 04-22-2022 13:09-0400 Heart rate 95 /min Jean Claude Huitron MD Work Phone: [facility] 04-22-2022 13:09-0400 Respiratory rate 16 /min Jean Claude Huitron MD Work Phone: [facility] 04-22-2022 13:09-0400 SaO2% (BldA) [Mass fraction] 98 % Jean Claude Huitron MD Work Phone: [facility] 04-22-2022 13:09-0400 Systolic blood pressure 118 mm[Hg] Jean Claude Huitron MD Work Phone: [facility] 04-01-2022 08:54-0400 Body height 172.7 cm Roxana Moore MD Work Phone: [facility] 04-01-2022 08:54-0400 Body mass index (BMI) [Ratio] 35.58 kg/m2 Roxana Moore MD Work Phone: [facility] 04-01-2022 08:54-0400 Body weight 106.14 kg Roxana Moore MD Work Phone: [facility] 04-01-2022 08:54-0400 Diastolic blood pressure 92 mm[Hg] Roxana Moore MD Work Phone: [facility] 04-01-2022 08:54-0400 Heart rate 93 /min Roxana Moore MD Work Phone: [facility] 04-01-2022 08:54-0400 Systolic blood pressure 143 mm[Hg] Roxana Moore MD Work Phone: [facility] 03-18-2022 09:52-0400 Body height 172.7 cm Kecia Carvalho MD Work Phone: [facility] 03-18-2022 09:52-0400 Body mass index (BMI) [Ratio] 35.43 kg/m2 Kecia Carvalho MD Work Phone: [facility] 03-18-2022 09:52-0400 Body weight 105.69 kg Kecia Carvalho MD Work Phone: [facility] 03-18-2022 09:52-0400 Diastolic blood pressure 72 mm[Hg] Kecia Carvalho MD Work Phone: [facility] 03-18-2022 09:52-0400 Heart rate 82 /min Kecia Carvalho MD Work Phone: [facility] 03-18-2022 09:52-0400 Systolic blood pressure 143 mm[Hg] Kecia Carvalho MD Work Phone: [facility] 06-02-2021 12:14-0400 Body height 172.7 cm Trace Bailey MD Work Phone: [facility] 06-02-2021 12:14-0400 Body mass index (BMI) [Ratio] 30.38 kg/m2 Trace Bailey MD Work Phone: [phone] [place] [address] 06-02-2021 12:14-0400 Body temperature 98.1 [degF] Trace Bailey MD Work Phone: [facility] 06-02-2021 12:14-0400 Body weight 90.63 kg Trace Bailey MD Work Phone: [facility] 06-02-2021 12:14-0400 Diastolic blood pressure 68 mm[Hg] Trace Bailey MD Work Phone: [facility] 06-02-2021 12:14-0400 Heart rate 99 /min Trace Bailey MD Work Phone: [facility] 06-02-2021 12:14-0400 Systolic blood pressure 125 mm[Hg] Trace Bailey MD Work Phone: [facility] Encounters Encounter Date Encounter Type Care Provider Facility Start: 03-12-2025 End: 04-12-2025 ambulatory Jean Claude Huitron MD Work Phone: [facility] Start: 01-05-2025 End: 01-05-2025 Emergency department patient visit Myles Cabrera Facility:[facility] Start: 10-22-2024 End: 10-23-2024 Telephone encounter Irlanda Hogan APRN.SPRINKLING SYSTEM IRRIGATOR Work Phone: Family [facility] [place] Comment on above: Refill Request Start: 10-22-2024 End: 10-22-2024 ambulatory JEAN CLAUDE HUITRON Facility:[facility] Start: 10-22-2024 End: 10-22-2024 Patient encounter procedure Jean Claude Huitron MD Work Phone: [facility] [place] Comment on above: Type 2 diabetes camilla itus with hyperglycemia, with long-term current use of insulin (HCC) (Primary Dx); RLS (restless legs syndrome); Elevated BP without diagnosis of hypertension Start: 09-25-2024 End: 09-25-2024 Patient encounter procedure Irlanda Hogan APRN.SPRINKLING SYSTEM IRRIGATOR Work Phone: [facility] [place] Comment on above: Hospital discharge f ollow-up (Primary Dx); Encounter for immunization; Rectal abscess Start: 09-25-2024 End: 09-25-2024 ambulatory JEAN CLAUDE HUITRON Facility:[facility] Start: 09-21-2024 End: 09-24-2024 E-mail encounter from caregiver [facility] [place] Start: 09-21-2024 End: 09-24-2024 Patient encounter procedure [facility] [place] Comment on above: Your appointment for 09/25/24 Start: 09-19-2024 End: 10-22-2024 Patient Outreach Celeste Villa LPN [facility] Comment on above: Transition Of Care ( [facility] discharge 09/18/24) Start: 09-16-2024 ambulatory Grace JOE Faci lity:[facility] Start: 09-16-2024 End: 09-18-2024 Evaluation and management of inpatient Ken Sosa Facility:[facility] Start: 09-16-2024 End: 09-16-2024 ambulatory [facility] Facility:[facility] Start: 09-16-2024 End: 09-16-2024 Patient encounter procedure Rony Chávez APRN.SPRINKLING SYSTEM IRRIGATOR Work Phone: [facility] Comment on above: Infection (Primary D x) Start: 08-25-2024 End: 08-29-2024 Refill Irlanda Podlogjorge INSTRUMENTATION AND CONTROLS TECHNICIAN.SPRINKLING SYSTEM IRRIGATOR Work Phone: Family [facility] Comment on above: Refill Request Start: 07-20-2024 End: 07-20-2024 Emergency department patient visit Cosme Link Facility:[facility] Start: 07-17-2024 End: 07-17-2024 Telephone encounter Indu Pham [facility] Work Phone: [facility] Comment on above: Appointment Start: 07-13-2024 End: 07-16-2024 Telephone encounter Rose JOE Work Phone: [facility] Comment on above: Results Start: 07-11-2024 End: 07-11-2024 ambulatory [facility] Facility:[facility] Start: 07-11-2024 End: 07-11-2024 Patient encounter procedure Letitia Odell APRN.SPRINKLING SYSTEM IRRIGATOR Work Phone: [facility] Comment on above: Sore throat (Primary Dx); Fever, unspecified fever cause Start: 05-28-2024 End: 05-28-2024 Emergency department patient visit DR RIKI COATES MD [facility] Start: 05-07-2024 End: 05-07-2024 ambulatory [facility] Facility:[facility] Start: 05-02-2024 Refill Irlanda Hogan INSTRUMENTATION AND CONTROLS TECHNICIAN.SPRINKLING SYSTEM IRRIGATOR Work Phone: Family [facility] Comment on above: Refill Request Diabetic Check In/ M ed update Start: 04-26-2024 E-mail encounter billy rolle caregiver Indu Ph[facility] Work Phone: [facility] Start: 04-26-2024 Patient encounter procedure Indu Pham [facility] Work Phone: [facility] Comment on above: Primary Care Pharmac ist Visit Start: 04-11-2024 Telephone encounter Joaquin Huitron MD Work Phone: Family [facility] Comment on above: Results Start: 04-09-2024 Telephone encounter Joaquin Huitron MD Work Phone: [facility] Comment on above: Primary care Pharmac y Appt Start: 04-06-2024 End: 04-06-2024 Patient encounter procedure Jean Claude Huitron MD Work Phone: Family [facility] Comment on above: Annual physical exam (Primary Dx); Type 2 diabetes mellitus with hyperglycemia, with long-term current use of insulin (HCC); Peripheral polyneuropathy; RLS (restless legs syndrome); Mixed hyperlipidemia; Obesity (BMI 30-39.9); Screening for cervical cancer; Encounter for immunization Start: 03-26-2024 End: 03-26-2024 ambulatory Tristin JOE Facility:[facility] Start: 02-03-2024 ambulatory JEAN CLAUDE HUITRON Facility:[id number] Start: 02-03-2024 End: 02-03-2024 Subsequent hospital visit by physician [facility] [place] [address] Radiology Comment on above: Encounter for screen ing mammogram for breast cancer [Z12.31] Start: 02-03-2024 Documentation procedure Mammog cisco Coordinator [facility] Start: 02-03-2024 Letter encounter Mammography Coordinator [facility] Department Start: 01-30-2024 Refill Irlanda Hogan APRN.CNP Work Phone: Family [facility] [place] Comment on above: Refill Request Start: 12-28-2023 ambulatory Jean Claude Huitron MD Work Phone: Internal Medicine [facility] [place] Start: 10-07-2023 End: 10-11-[address] MARTHA NANCE MD Facility:[facility] Start: 10-07-2023 End: 10-11-[address] MARTHA NANCE MD [facility] Start: 09-30-2023 End: 09-30-2023 Emergency department patient visit CAPRICE MONTANO MD [facility] Start: 09-22-2023 End: 09-22-2023 Emergency department patient visit MYA MYERS MD [facility] Start: 08-19-2023 End: 08-19-2023 ambulatory [facility] Work Phone: Start: 08-19-2023 End: 08-19-2023 Patient encounter procedure [facility] Work Phone: Start: 08-09-2023 Admission to [facility] Jean Claude Huitron MD Work Phone: [facility] Comment on above: Surgery Clearance Fo rm Start: 08-09-2023 ambulatory Jean Claude Huitron MD Work Phone: [facility] Start: 08-09-2023 Telephone encounter Joaquin Huitron MD Work Phone: [facility] Comment on above: Results Start: 08-05-2023 ambulatory Jean Claude Huitron MD Work Phone: [facility] Comment on above: Surgical Clearance Start: 08-05-2023 Preprocedural examination done Jean Claude Huitron MD Work Phone: [facility] Work Phone: Start: 07-08-2023 Refill Jean Claude Huitron MD Work Phone: [facility] [place] Comment on above: Refill Request (LAST WAS ONLY MED UPDATE) Start: 07-04-2023 Refill Jean Claude Huitron MD Work Phone: [facility] Comment on above: Refill Request; Refi ll Request Start: 06-07-2023 Telephone encounter Joaquin Huitron MD Work Phone: [facility] [place] Comment on above: Insurance Authorizat ion Start: 06-03-2023 Telephone encounter Joaquin Huitron MD Work Phone: [facility] [place] Comment on above: pre op form ([facility]) Start: 06-03-2023 End: 06-03-2023 Patient encounter procedure Jean Claude Huitron MD Work Phone: [facility] [place] Comment on above: Type 2 diabetes camilla itus with hyperglycemia, with long-term current use of insulin (HCC) (Primary Dx); Pre-op evaluation; Traumatic tear of left rotator cuff, unspecified tear extent, subsequent encounter Start: 06-03-2023 End: 06-03-2023 Preprocedural examination done Jean Claude Huitron MD Work Phone: [facility] Work Phone: Start: 06-01-2023 Refill Irlanda Hogan INSTRUMENTATION AND CONTROLS TECHNICIAN.SPRINKLING SYSTEM IRRIGATOR Work Phone: [facility] [place] Comment on above: Refill Request Start: 05-16-2023 Refill Irlanda Hogan APRN.SPRINKLING SYSTEM IRRIGATOR Work Phone: [facility] [place] Comment on above: Refill Request Start: 04-13-2023 End: 04-13-2023 Emergency department patient visit [facility] Start: 04-06-2023 Telephone encounter Rony Chávez APRN.SPRINKLING SYSTEM IRRIGATOR Work Phone: [facility] Comment on above: Results Start: 04-05-2023 End: 04-05-2023 Patient encounter procedure Letitia Odell INSTRUMENTATION AND CONTROLS TECHNICIAN.SPRINKLING SYSTEM IRRIGATOR Work Phone: [facility] Comment on above: Sinobronchitis (Prim prachi Dx) Start: 02-27-2023 End: 02-27-2023 Emergency department patient visit JOSE WEINSTEIN Facility:[facility] Start: 02-27-2023 End: 02-27-2023 Patient encounter procedure Bobbi Herbert APRN.SPRINKLING SYSTEM IRRIGATOR Work Phone: [facility] Comment on above: Right arm pain (Prim prachi Dx); Numbness and tingling of right arm; Headache, unspecified headache type; Left facial numbness Start: 01-17-2023 Telephone encounter Alisia Fady [facility] Comment on above: New Primary Care Pha rmacy Appt. Start: 01-14-2023 End: 01-14-2023 Patient encounter procedure Jean Claude Huitron MD Work Phone: [facility] [place] Comment on above: Type 2 diabetes camilla itus with hyperglycemia, with long-term current use of insulin (HCC) (Primary Dx) Start: 01-12-2023 ambulatory Jean Claude Huitron MD Work Phone: Internal Medicine [facility] Start: 01-05-2023 E-mail encounter billy m caregiver [facility] Start: 01-05-2023 Patient encounter procedure [facility] Comment on above: Appointment Start: 12-06-2022 Refill Jean Claude Huitron MD Work Phone: [facility] Comment on above: Refill Request Start: 12-05-2022 ambulatory Jean Claude Huitron MD Work Phone: [facility] [place] Comment on above: Long acting Insulin (Lantus) Start: 12-02-2022 End: 12-02-2022 Patient encounter procedure Jean Claude Huitron MD Work Phone: [facility] Comment on above: Abscess, gluteal, ri ght (Primary Dx); Status post incision and drainage; Type 2 diabetes mellitus with hyperglycemia, with long-term current use of insulin (HCC) Start: 11-29-2022 Telephone encounter Joaquin Huitron MD Work Phone: [facility] Comment on above: Medication Request Start: 11-28-2022 End: 11-28-2022 Emergency department patient visit MARIA DEL CARMEN TSANG MD Facility:[facility] Start: 11-25-2022 End: 11-25-2022 Patient encounter procedure Letitia Odell APRN.SPRINKLING SYSTEM IRRIGATOR Work Phone: [facility] Comment on above: Boil, buttock (Prima ry Dx) Start: 08-30-2022 End: 08-30-2022 [facility] Start: 07-14-2022 End: 07-14-2022 Patient encounter procedure Irlanda Podlogar INSTRUMENTATION AND CONTROLS TECHNICIAN.SPRINKLING SYSTEM IRRIGATOR Work Phone: [facility] Comment on above: Recurrent UTI (urina ry tract infection) (Primary Dx); Diabetes mellitus type II (HCC) Start: 07-09-2022 Telephone encounter Irlanda gunderson INSTRUMENTATION AND CONTROLS TECHNICIAN.SPRINKLING SYSTEM IRRIGATOR Work Phone: [facility] Comment on above: Results Start: 07-07-2022 ambulatory Jean Claude Huitron MD Work Phone: [facility] Comment on above: Kidney Infection Start: 07-07-2022 Telephone encounter Irlanda gunderson APRN.SPRINKLING SYSTEM IRRIGATOR Work Phone: [facility] Comment on above: Medication Question Start: 07-07-2022 End: 07-07-2022 Patient encounter procedure Irlanda Hogan INSTRUMENTATION AND CONTROLS TECHNICIAN.SPRINKLING SYSTEM IRRIGATOR Work Phone: [facility] Comment on above: UTI symptoms (Primar y Dx); Abdominal wall seroma, subsequent encounter Start: 06-24-2022 Telephone encounter Joaquin Huitron MD Work Phone: [facility] Comment on above: Results Start: 06-13-2022 End: 06-13-2022 Emergency department patient visit [facility] Start: 06-08-2022 ambulatory JEAN CLAUDE HUITRON [facility] ility:[facility] Start: 06-08-2022 End: 06-08-2022 Postop follow up visit related to original px Roxana Moore MD Work Phone: [facility] [place] Comment on above: S/P repair of ventra l hernia (Primary Dx) Start: 05-21-2022 End: 05-21-2022 ambulatory ROXANA MOORE Facility:[facility] Start: 05-21-2022 End: 05-21-2022 Subsequent hospital visit by physician Roxana Moore MD Work Phone: [facility] Comment on above: Incisional hernia Start: 05-13-2022 Telephone encounter Joaquin Huitron MD Work Phone: [facility] [place] Comment on above: Results Start: 05-07-2022 End: 05-07-2022 Subsequent hospital visit by physician [employer] [employer] [facility] Wstr (I-Stat/1.5t) Work Phone: Radiology Comment on above: Liver lesion [K76.9] Start: 05-07-2022 ambulatory JEAN CLAUDE HUITRON Fac ility:[facility] Start: 05-07-2022 Encounter for other preprocedural examination JEAN CLAUDE HUITRON Facility:[facility] Start: 04-22-2022 End: 04-22-2022 Patient encounter procedure Jean Claude Huitron MD Work Phone: [facility] Comment on above: Annual physical exam (Primary Dx); Pre-operative clearance; Diabetes mellitus type II (HCC); Mixed hyperlipidemia; Ventral hernia without obstruction or gangrene; Liver lesion; Obesity (BMI 30-39.9); Screening for cervical cancer Start: 04-22-2022 End: 04-22-2022 Preoperative state [facility] Start: 04-02-2022 Refill Jean Claude Huitron MD Work Phone: [facility] Comment on above: Refill Request Start: 04-01-2022 ambulatory ROXANA MOORE Facilit y:[facility] Start: 04-01-2022 End: 04-01-2022 Office outpatient visit 25 minutes Roxana Moore MD Work Phone: General [facility] Gastrointestinal Surgery [facility] [place] Comment on above: Ventral hernia witho ut obstruction or gangrene Start: 03-18-2022 ambulatory SELF SELF Facility:[facility] Start: 03-18-2022 End: 03-18-2022 Office outpatient visit 15 minutes Kecia Carvalho MD Work Phone: Colorectal Surgery [facility] Comment on above: Ventral hernia witho ut obstruction or gangrene (Primary Dx) Start: 03-17-2022 [facility] Start: 03-17-2022 End: 03-17-2022 Subsequent hospital visit by physician Kecia Carvalho MD Work Phone: Imaging [facility] M[facility]ography [facility] [place] Comment on above: Arrived Start: 03-15-2022 End: 03-16-2022 ambulatory JEAN CLAUDE HUITRON Facility:[facility] Start: 03-02-2022 Refill Jean Claude Huitron MD Work Phone: [facility] [place] Comment on above: Refill Request Start: 02-26-2022 Refill Irlanda Hogan INSTRUMENTATION AND CONTROLS TECHNICIAN.SPRINKLING SYSTEM IRRIGATOR Work Phone: [facility] [place] Comment on above: Refill Request Start: 06-02-2021 End: 06-02-2021 Postop follow up visit related to original px Trace Bailey MD Work Phone: Trauma Surgery [facility] Comment on above: Follow up (Primary D x) Start: 10-23-2020 End: 10-23-2020 Patient encounter procedure BEATRIZ Alcantar ROSSY [facility] Procedures Date Procedure Procedure Detail Performing Clinician Start: 07-11-2024 Urnls dip stick/tabl et rgnt auto w/o microscopy Letitia Odell INSTRUMENTATION AND CONTROLS TECHNICIAN.SPRINKLING SYSTEM IRRIGATOR Work Phone: Start: 07-11-2024 STREP A MOLECULAR (POC) Letitia Odell INSTRUMENTATION AND CONTROLS TECHNICIAN.SPRINKLING SYSTEM IRRIGATOR Work Phone: Start: 02-03-2024 Screening mammograph y [...] et rgnt auto w/o microscopy Irlanda Podlogar INSTRUMENTATION AND CONTROLS TECHNICIAN.SPRINKLING SYSTEM IRRIGATOR Work Phone: Start: 07-07-2022 Urnls dip stick/tabl et rgnt auto w/o microscopy Irlanda Podlogar INSTRUMENTATION AND CONTROLS TECHNICIAN.SPRINKLING SYSTEM IRRIGATOR Work Phone: Start: 06-13-2022 Computed tomography of [...] Phone: Start: 12-11-2021 Mammography Irlanda Podl ogar INSTRUMENTATION AND CONTROLS TECHNICIAN.SPRINKLING SYSTEM IRRIGATOR Work Phone: Start: 09-09-2021 H/O: surgery History of cre ation of ostomy Kecia Carvalho MD Work Phone: Start: 07-31-2016 Adult depression screening assessment Irlanda Podlogar INSTRUMENTATION AND CONTROLS TECHNICIAN.SPRINKLING SYSTEM IRRIGATOR Work Phone: Plan of Treatment Date Care Activity Detail Author Start: 10-10-2029 Urine microalbumin profile [facility] Start: 10-22-2025 Annual PCP Team Chronic Disease Visit Annual PCP Team Chronic Disease Visit [facility] Start: 09-25-2025 Annual PCP Team Chronic Disease Visit Annual PCP Team Chronic Disease Visit [facility] Start: 09-25-2025 Covid-19 Vaccine () Covid-19 Vaccine () [facility] Comment on above: Postponed from 07/08/2024 (Declined at t his time) Start: 04-06-2025 Annual PCP Team Chronic Disease Visit Annual PCP Team Chronic Disease Visit [facility] Start: 04-06-2025 Covid-19 Vaccine ( season) Covid-19 Vaccine () [facility] Comment on above: Postponed from 07/08/2023 (Declined at t his time) Start: 04-06-2025 Diabetic foot examination Diabetic Foot Exam [facility] Start: 04-06-2025 Hepatitis B screening Urine Albumin:Creatinine Ratio [facility] Start: 04-06-2025 Hepatitis B surface antibody level LDL Cholesterol [facility] Start: 02-02-2025 Screening for malignant neoplasm of breast Mammogram Screening [facility] Start: 01-21-2025 End: 01-21-2025 Patient encounter procedure 01/21/2025 7:20 AM EDT Office Visit Family Beverly Correa [address] [place] [id number] Jean Claude Huitron MD [address] [place] [id number] 3 month follow up-DM Family Beverly Correa Comment on above: 3 month follow up-DM Start: 11-12-2024 End: 11-12-2024 Patient encounter procedure 11/12/2024 7:20 AM EST Office Visit Family Beverly Correa [address] [place] [address] Jean Claude Huitron MD [address] [place] [address] 3 week bp check Family Beverly Correa Comment on above: 3 week bp check Start: 10-22-2024 End: 01-21-2025 Comprehensive metabolic 2000 panel - Serum or Plasma COMPREHENSIVE METABOLIC PANEL Lab Routine Type 2 diabetes mellitus with hyperglycemia, with long-term current use of insulin (HCC) Expected: 10/22/2024, Expires: 01/21/2025 [facility] Work Phone: Comment on above: Expected: 10/22/2024, Expires: Start: 10-22-2024 End: 01-21-2025 Hemoglobin A1c in Blood HEMOGLOBIN A1C Lab Routine Type 2 diabetes mellitus with hyperglycemia, with long-term current use of insulin (HCC) Expected: 10/22/2024, Expires: 01/21/2025 [facility] Comment on above: Expected: 10/22/2024, Expires: Start: 10-22-2024 End: 10-22-2024 Patient encounter procedure 10/22/2024 7:20 AM EST Office Visit Family [facility] [place] [address] [place] [address] Jean Claude Huitron MD [address] [facility] [place] [address] Diabetic Check up [facility] [place] Comment on above: Diabetic Check up Start: 10-03-2024 End: 10-03-2024 Patient encounter procedure 10/03/2024 1:00 PM EST Office Visit [facility] Beverly Correa [address] [facility] [place] [address] Jean Claude Huitron MD [address] [place] [address] Diabetic check up- recent hospital stay follow up [facility] Beverly Correa Comment on above: Diabetic check up- recent hospital stay follow up Start: 09-25-2024 End: 09-25-2024 Patient encounter procedure 09/25/2024 7:20 AM EST Office Visit [facility] Beverly Correa [address] [facility] [place] [address] Irlanda Hogan APRN.SPRINKLING SYSTEM IRRIGATOR [address] [place] [address] [facility] Hospital Follow Up; 09/18/2024; Infection Family Medicine [place] Comment on above: [facility] Hospital Follow Up; 09/18/2024; Infection Start: 07-11-2024 End: 07-11-2024 Patient encounter procedure 07/11/2024 7:00 AM EDT Office Visit Family Medicine [place] [address] [place] [address] Jean Claude Huitron MD [address] [place] [address] 3 month follow up Family Medicine [facility] Comment on above: 3 month follow up Start: 07-08-2024 Covid-19 Vaccine ( season) Covid-19 Vaccine () [facility] Start: 07-08-2024 Covid-19 Vaccine () Covid-19 Vaccine () [facility] Start: 07-08-2024 Influenza vaccination [facility] Start: 07-07-2024 Hemoglobin A1c measurement HbA1C [facility] Start: 06-14-2024 End: 06-14-2024 Patient encounter procedure [facility] Comment on above: Type 2 diabetes mellitus with hyperglyce jorgito, with long-term current use of insulin (HCC) [E11.65, Z79.4] Annual Exam [facility] Start: 06-03-2024 3 comp foot exam completed DIABETIC FOOT EXAM [facility] Start: 06-03-2024 ANNUAL PCP TEAM CHRONIC DISEASE VISIT ANNUAL PCP TEAM CHRONIC DISEASE VISIT [facility] Start: 06-03-2024 Diabetic foot examination Diabetic Foot Exam [facility] Start: 06-03-2024 Hepatitis B screening URINE ALBUMIN:CREATININE RATIO [facility] Start: 06-03-2024 Hepatitis B surface antibody level LDL CHOLESTEROL [facility] Start: 05-04-2024 End: 05-04-2024 ambulatory 05/04/2024 9:30 AM EDT Results Only Madeline Becker [facility] [address] [place] [address] Madeline Becker [facility] Start: 04-25-2024 End: 07-25-2024 CBC W Ordered Manual Differential panel - Blood PATHOLOGIST INTERPRETATION WITH CBC AND DIFF Lab Routine Leukocytosis, unspecified type Expected: 04/25/2024, Expires: 07/25/2024 [facility] Work Phone: Comment on above: Expected: 04/25/2024, Expires: 4 Start: 02-01-2024 Hemoglobin A1c measurement HbA1C [facility] Start: 02-01-2024 Hemoglobin A1c/Hemoglobin.total in Blood HbA1C [facility] Start: 01-15-2024 ANNUAL PCP TEAM CHRONIC DISEASE VISIT ANNUAL PCP TEAM CHRONIC DISEASE VISIT [facility] Start: 12-02-2023 ANNUAL PCP TEAM CHRONIC DISEASE VISIT ANNUAL PCP TEAM CHRONIC DISEASE VISIT [facility] Start: 12-02-2023 COVID-19 VACCINE (#1) COVID-19 VACCINE (#1) [facility] Comment on above: Postponed from 1980 (Declined at t his time) Start: 11-07-2023 Behavioral Health Screening Behavioral Health Screening [facility] Start: 11-07-2023 Depression Assessment Depression Assessment [facility] Start: 09-10-2023 ANNUAL PCP TEAM CHRONIC DISEASE VISIT ANNUAL PCP TEAM CHRONIC DISEASE VISIT [facility] Start: 09-03-2023 Hemoglobin A1c/Hemoglobin.total in Blood HBA1C [facility] Start: 08-08-2023 End: 10-08-2023 Comprehensive metabolic 2000 panel - Serum or Plasma COMP METABOLIC PANEL Lab Routine Type 2 diabetes mellitus with hyperglycemia, with long-term current use of insulin (HCC) Pre-op evaluation Expected: 08/08/2023, Expires: 10/08/2023 [facility] Work Phone: Comment on above: Expected: 08/08/2023, Expires: Start: 07-14-2023 ANNUAL PCP TEAM CHRONIC DISEASE VISIT ANNUAL PCP TEAM CHRONIC DISEASE VISIT [facility] Start: 07-08-2023 Covid-19 Vaccine () Covid-19 Vaccine () [facility] Start: 07-08-2023 Influenza vaccination [facility] Start: 07-07-2023 ANNUAL PCP TEAM CHRONIC DISEASE VISIT ANNUAL PCP TEAM CHRONIC DISEASE VISIT [facility] Start: 06-21-2023 ANNUAL PCP TEAM CHRONIC DISEASE VISIT ANNUAL PCP TEAM CHRONIC DISEASE VISIT [facility] Start: 06-03-2023 End: 08-03-2023 ALBUMIN/CREAT RATIO RND UR [facility] Work Phone: Comment on above: Expected: 06/03/2023, Expires: 3 Start: 06-03-2023 End: 08-03-2023 Comprehensive metabolic 2000 panel - Serum or Plasma [facility] Work Phone: Comment on above: Expected: 06/03/2023, Expires: 3 Start: 06-03-2023 End: 08-03-2023 LIPID PANEL, NONFASTING [facility] Work Phone: Comment on above: Expected: 06/03/2023, Expires: 3 Start: 04-22-2023 Adult depression screening assessment DEPRESSION SCREENING [facility] Start: 04-22-2023 ANNUAL PCP TEAM CHRONIC DISEASE VISIT ANNUAL PCP TEAM CHRONIC DISEASE VISIT [facility] Start: 04-22-2023 HEPATITIS B (1 of 3 - Risk 3-dose series) [facility] Comment on above: Postponed from 1999 (Declined at t his time) Postponed from 06/29 (Declined at this time) Start: 04-22-2023 PNEUMOCOCCAL (2 - PCV) PNEUMOCOCCAL (2 - PCV) [facility] Comment on above: Postponed from 08/06/2017 (Declined at t his time) Start: 04-21-2023 Hepatitis B screening URINE ALBUMIN:CREATININE RATIO [facility] Start: 04-21-2023 Hepatitis B surface antibody level LDL CHOLESTEROL [facility] Start: 03-27-2023 Hemoglobin A1c/Hemoglobin.total in Blood HBA1C [facility] Start: 12-15-2022 Glaucoma screening Dilated Retinal Exam [facility] Start: 12-15-2022 Hepatitis C antibody, confirmatory test DILATED RETINAL EXAM [facility] Start: 12-11-2022 Mammography [facility] Start: 12-11-2022 Screening for malignant neoplasm of breast Mammogram Screening [facility] Start: 12-09-2022 ANNUAL PCP TEAM CHRONIC DISEASE VISIT ANNUAL PCP TEAM CHRONIC DISEASE VISIT [facility] Start: 12-02-2022 End: 02-01-2023 Comprehensive metabolic 2000 panel - Serum or Plasma COMP METABOLIC PANEL Lab Routine Type 2 diabetes mellitus with hyperglycemia, with long-term current use of insulin (HCC) Expected: 12/02/2022, Expires: 02/01/2023 [facility] Work Phone: Comment on above: Expected: 12/02/2022, Expires: 3 Start: 12-02-2022 End: 02-01-2023 Hemoglobin A1c in Blood HGB A1C Lab Routine Type 2 diabetes mellitus with hyperglycemia, with long-term current use of insulin (HCC) Expected: 12/02/2022, Expires: 02/01/2023 [facility] Work Phone: Comment on above: Expected: 12/02/2022, Expires: 3 Start: 11-07-2022 DEPRESSION ASSESSMENT DEPRESSION ASSESSMENT [facility] Start: 08-12-2022 End: 08-12-2022 Telemedicine consultation with patient 08/12/2022 Telemedicine General Surgery Joann Flower, INSTRUMENTATION AND CONTROLS TECHNICIAN-SPRINKLING SYSTEM IRRIGATOR [address] [place] [address] General and Gastrointestinal Surgery [facility] [place] Start: 07-22-2022 Hemoglobin A1c/Hemoglobin.total in Blood HBA1C [facility] Start: 07-14-2022 End: 09-13-2022 Hemoglobin A1c in Blood HGB A1C Lab Routine Diabetes mellitus type II (HCC) Expected: 07/14/2022, Expires: 09/13/2022 [facility] Work Phone: Comment on above: Expected: 07/14/2022, Expires: 2 Start: 07-14-2022 End: 09-13-2022 URINALYSIS, DIPSTICK ONLY URINALYSIS, DIPSTICK ONLY Lab Routine Recurrent UTI (urinary tract infection) Expected: 07/14/2022, Expires: 09/13/2022 [facility] Work Phone: Comment on above: Expected: 07/14/2022, Expires: 2 Start: 07-08-2022 Influenza vaccination [facility] Start: 2022 PAP TESTING PAP TESTING [facility] Start: 06-05-2022 3 comp foot exam completed DIABETIC FOOT EXAM [facility] Start: 06-05-2022 Hepatitis B screening URINE ALBUMIN:CREATININE RATIO [facility] Start: 06-03-2022 End: 06-03-2022 Patient encounter procedure 06/03/2022 Office Visit General Surgery Roxana Moore MD [address] [place] [address] General and Gastrointestinal Surgery [facility] [place] Start: 06-01-2022 Hepatitis B surface antibody level LDL CHOLESTEROL [facility] Start: 05-21-2022 End: 05-21-2022 Admission to same day surgery center 05/21/2022 Surgery Multispecialty Roxana Moore MD [address] [place] [address] REPAIR HERNIA VENTRAL ROBOTIC W/ MESH [facility] Comment on above: REPAIR HERNIA VENTRAL ROBOTIC W/ MESH Start: 05-21-2022 End: 05-21-2022 Laps repair hernia except incal/ingun reducible REPAIR HERNIA VENTRAL ROBOTIC W/ MESH Incisional hernia 05/21/2022 9:55 AM EDT [facility] Start: 05-21-2022 Subsequent hospital visit by physician 05/21/2022 Hospital Encounter Multispecialty Roxana Moore MD [address] [place] [address] Incisional hernia [facility] Comment on above: Incisional hernia Start: 05-21-2022 End: 05-21-2022 Laps repair hernia except incal/ingun reducible REPAIR HERNIA VENTRAL ROBOTIC W/ MESH Incisional hernia 05/21/2022 7:29 AM EDT [facility] Start: 05-07-2022 End: 05-07-2022 ambulatory 05/07/2022 Pre-Operative Nurse Assessment Multispecialty [facility] Pre Anesthesia [facility] Start: 04-01-2022 End: 04-01-2022 Patient encounter procedure 04/01/2022 Office Visit General Surgery Roxana Moore MD [address] [place] [address] General and Gastrointestinal Surgery [facility] [place] Start: 03-18-2022 End: 03-18-2022 Patient encounter procedure 03/18/2022 Office Visit Colon & Rectal Surgery Kecia Carvalho MD [address] [facility] [address] [place] [address] Colorectal Surgery [facility] Start: 02-26-2022 End: 04-28-2022 ALBUMIN/CREAT RATIO RND UR ALBUMIN/CREAT RATIO RND UR Lab Routine Diabetes mellitus type II (HCC) Expected: 02/26/2022, Expires: 04/28/2022 [facility] Work Phone: Comment on above: Expected: 02/26/2022, Expires: 2 Start: 02-26-2022 End: 04-28-2022 Hemoglobin A1c/Hemoglobin.total in Blood HGB A1C Lab Routine Diabetes mellitus type II (HCC) Expected: 02/26/2022, Expires: 04/28/2022 [facility] Work Phone: Comment on above: Expected: 02/26/2022, Expires: 2 Start: 02-26-2022 End: 04-28-2022 LIPID PANEL, NONFASTING LIPID PANEL, NONFASTING Lab Routine Diabetes mellitus type II (HCC) Expected: 02/26/2022, Expires: 04/28/2022 [facility] Work Phone: Comment on above: Expected: 02/26/2022, Expires: 2 Start: 01-12-2022 Hemoglobin A1c/Hemoglobin.total in Blood HBA1C [facility] Start: 11-07-2021 DEPRESSION ASSESSMENT DEPRESSION ASSESSMENT [facility] Start: 11-04-2021 Hemoglobin A1c measurement HBA1C TEST [facility] Start: 07-08-2021 Influenza vaccination INFLUENZA VACCINE (#1) [facility] Start: 2020 Fasting lipid profile LIPID SCREENING [facility] Start: 2020 Screening mammography MAMMOGRAM SCREENING DISCUSSION [facility] Start: 08-06-2017 PNEUMOCOCCAL (2 - PCV) [facility]OCOCCAL (2 - PCV) [facility] Start: 08-06-2017 Pneumococcal vaccination [facility] Start: 07-31-2017 Adult depression screening assessment DEPRESSION SCREENING [facility] Start: 2010 HPV TESTING HPV TESTING [facility] Start: 2010 Screening for malignant neoplasm of cervix HPV Testing [facility] Start: 2001 PAP TESTING PAP TESTING [facility] Start: 2001 Screening for malignant neoplasm of cervix [facility] Start: 1999 HEPATITIS B (1 of 3 - Risk 3-dose series) HEPATITIS B (1 of 3 - Risk 3-dose series) [facility] Start: 1999 Hepatitis B Vaccine (1 of 3 - 19+ 3-dose series) Hepatitis B Vaccine (1 of 3 - 19+ 3-dose series) [facility] Start: 1999 Third diphtheria, tetanus and acellular pertussis (DTaP) vaccination TDAP (ADULT) [facility] Start: 1998 Anxiety Screening Anxiety Screening [facility] Start: 1998 Depression Screening Depression Screening [facility] Start: 1998 Tetanus vaccination TETANUS [facility] Start: 1995 HIV screening HIV SCREENING DISCUSSION [facility] Start: 1992 COVID-19 VACCINE (1) COVID-19 VACCINE (1) [facility] Start: 1990 Hepatitis C antibody, confirmatory test DILATED RETINAL EXAM [facility] Start: 1986 PNEUMOCOCCAL (1 - PCV) PNEUMOCOCCAL (1 - PCV) [facility] Start: 1985 COVID-19 VACCINE (#1) COVID-19 VACCINE (#1) [facility] Start: 1985 COVID-19 VACCINE (1) COVID-19 VACCINE (1) [facility] Start: 1980 COVID-19 VACCINE (#1) COVID-19 VACCINE (#1) [facility] Start: 1980 Diabetic foot examination DIABETIC FOOT EXAM [facility] Start: 1980 Diabetic retinal [facility] Start: 1980 HEPATITIS B (1 of 3 - 3-dose series) HEPATITIS B (1 of 3 - 3-dose series) [facility] Start: 1980 Hepatitis B Vaccine (1 of 3 - 3-dose series) Hepatitis B Vaccine (1 of 3 - 3-dose series) [facility] Start: 1980 Hepatitis C antibody, confirmatory test HEPATITIS C VIRUS SCREENING [facility] Start: 1980 [facility] Start: 1980 Microalbumin measurement, urine, quantitative URINE MICROALBUMIN TEST [facility] Bacteria identified in Urine by Culture URINE CULTURE Microbiology Routine UTI symptoms 07/07/2022 11:32 AM EDT [facility] Work Phone: Bacteria identified in Urine by Culture URINE CULTURE Microbiology Routine Fever, unspecified fever cause 07/11/2024 3:25 PM EDT [facility] Work Phone: COVID & INFLUENZA A/ B & RSV PCR, ROUTINE COVID & INFLUENZA A/B & RSV PCR, ROUTINE Microbiology Routine Sore throat Fever, unspecified fever cause 07/11/2024 3:25 PM EDT [facility] End: 04-11-2026 DBT Breast - bilateral screening JESSICA SCREENING W [facility] Radiology Routine Encounter for screening mammogram for breast cancer 1 Occurrences starting 03/12/2025 until 04/11/2026 [facility] Work Phone: Comment on above: 1 Occurrences starting 03/12/2025 until 04/11/2026 End: 04-22-2023 ECG COMPLETE ECG COMPLETE ECG Routine Annual physical exam Pre-operative clearance 1 Occurrences starting 04/22/2022 until 04/22/2023 [facility] Work Phone: Comment on above: 1 Occurrences starting 04/22/2022 until 04/22/2023 End: 06-03-2024 ECG COMPLETE ECG COMPLETE ECG Routine Pre-op evaluation 1 Occurrences starting 06/03/2023 until 06/03/2024 [facility] Work Phone: Comment on above: 1 Occurrences starting 06/03/2023 until 06/03/2024 ECG COMPLETE [facility] Influenza virus A an d B RNA and SARS-CoV-2 (COVID-19) N gene panel - Respiratory specimen by NAKUL with probe detection COVID WITH FLUA+B, ROUTINE Microbiology Routine Sinobronchitis 04/05/2023 10:50 AM EDT [facility] Work Phone: End: 02-11-2024 JESSICA SCREENING JESSICA SCREENING Radiology Routine Encounter for screening mammogram for breast cancer 1 Occurrences starting 01/12/2023 until 02/11/2024 [facility] Work Phone: Comment on above: 1 Occurrences starting 01/12/2023 until 02/11/2024 End: 01-26-2025 MG Breast Screening JESSICA SCREENING Radiology Routine Encounter for screening mammogram for breast cancer 1 Occurrences starting 12/28/2023 until 01/26/2025 [facility] Work Phone: Comment on above: 1 Occurrences starting 12/28/2023 until 01/26/2025 End: 05-22-2023 Mri abdomen w/o & w/contrast material MRI LIVER WO/W IVCON Radiology [place] Liver lesion 1 Occurrences starting 04/22/2022 until 05/22/2023 [facility] Work Phone: Comment on above: 1 Occurrences starting 04/22/2022 until 05/22/2023 Patient Education [facility] Work Phone: Patient referral [facility] Work Phone: [facility] Immunizations Immunization Date Immunization Notes Care Provider Mikayla benton 09-25-2024 influenza, seasonal, injectable Irlanda Hogan INSTRUMENTATION AND CONTROLS TECHNICIAN.JAISON Work Phone: [facility] 04-06-2024 pneumococcal conjuga te (PCV20) vaccine, 20 valent (PREVNAR 20) Jean Claude Huitron MD Work Phone: [facility] 04-06-2024 pneumococcal Conjuga te, unspecified formulation Jean Claude Huitron MD Work Phone: [facility] Work Phone: 08-25-2021 influenza, injectabl e, quadrivalent, contains preservative Irlanda Podlogar INSTRUMENTATION AND CONTROLS TECHNICIAN.SPRINKLING SYSTEM IRRIGATOR Work Phone: [facility] 08-25-2021 influenza virus vaccine, unspecified formulation Roxana Moore MD Work Phone: [facility] 10-10-2019 influenza, injectabl e, quadrivalent, contains preservative Irlanda Podlogar INSTRUMENTATION AND CONTROLS TECHNICIAN.SPRINKLING SYSTEM IRRIGATOR Work Phone: [facility] 10-10-2019 tetanus toxoid, redu flores diphtheria toxoid, and acellular pertussis vaccine, adsorbed Irlanda Podlogar INSTRUMENTATION AND CONTROLS TECHNICIAN.SPRINKLING SYSTEM IRRIGATOR Work Phone: [facility] 08-06-2016 influenza, injectabl e, quadrivalent, contains preservative Irlanda Podlogar INSTRUMENTATION AND CONTROLS TECHNICIAN.SPRINKLING SYSTEM IRRIGATOR Work Phone: [facility] 08-06-2016 pneumococcal polysaccharide vaccine, 23 valent Irlanda Podlogar INSTRUMENTATION AND CONTROLS TECHNICIAN.SPRINKLING SYSTEM IRRIGATOR Work Phone: [facility] 08-15-2015 influenza, injectabl e, quadrivalent, contains preservative Irlanda Podlogar INSTRUMENTATION AND CONTROLS TECHNICIAN.SPRINKLING SYSTEM IRRIGATOR Work Phone: [facility] 11-07-2004 tetanus and diphther ia toxoids, adsorbed, preservative free, for adult use (2 Lf of tetanus toxoid and 2 Lf of diphtheria toxoid) Jean Claude Huitron MD Work Phone: [facility] 11-07-2004 tetanus and diphther ia toxoids, not adsorbed, for adult use Irlanda Podlogar INSTRUMENTATION AND CONTROLS TECHNICIAN.[facility] Work Phone: [facility] Payers Date Payer Category Payer Unknown [id number] 2024 Self-pay [id number] 2022 Private Health Insurance [employer]UL[employer] E [id number] 2022 Unknown [id number] 2019 Medicaid [id number]. [id number] 2019 Unknown [id number] 2019 Unknown [id number] [id number]. [id number] 2019 Unknown [id number]. 1.13.172.2. [id number] 2015 Unknown [id number] 1980 Unknown [id number] 2.840.1.096105.3.579.2. 651 1980 Unknown [id number] 2.840.1.662367.3.579.2. 594 1980 Unknown [id number] 2.840.1.251366.3.579.2. 594 1980 Unknown [id number] 2.0.1.628179.3.579.2. 594 1980 Unknown [id number] 2.16.840.1.053983.3.579.2. 594 1980 Unknown [id number] 2.16.840.1.904545.3.579.2. 594 1980 Unknown [id number] 2.16.840.1.175005.3.579.2. 594 1980 Unknown [id number] 2.16.840.1.051717.3.579.2. 594 1980 Unknown [id number] 2.16.840.1.870588.3.579.2. 594 1980 Unknown [id number] 2.840.1.618878.3.579.2. 627 1980 Unknown [id number] 2.840.1.847506.3.579.2. 627 1980 Unknown [id number] 2.840.1.081417.3.579.2. 627 1980 Unknown [id number] 2.840.1.578300.3.579.2. 627 Unknown [id number] Unknown [id number] 2.16840.1.964531.3.579.2. 462 Unknown [id number] 2.840.1.716758.3.579.2. 462 Unknown [id number] 2.16840.1.920367.3.579.2. 462 Unknown [id number] 2.16.840.1.090865.3.579.2. 462 Unknown [id number] 2.16.840.1.630697.3.579.2. 462 Unknown [id number] 2.16.840.1.691241.3.579.2. 462 Unknown [id number] 2.16.840.1.838490.3.579.2. 462 Unknown [id number] 2.16840.1.769291.3.579.2. 462 Unknown [id number] 2.16.840.1.483107.3.579.2. 462 Unknown [id number] 2.16.840.1.489604.3.579.2. 462 Social History Date Type Detail Facility Start: 05-09-2021 End: 06-21-2022 Tobacco smoking status NHIS Never smoker [facility] Start: 05-09-2021 End: 06-21-2022 Tobacco use and exposure Never used [facility] Start: 06-02-2021 End: 06-08-2022 Alcohol intake Lifetime non-drinker (finding) [facility] Start: 06-02-2021 End: 12-09-2022 History SDOH Alcohol Frequency 1 [facility] Start: 1980 Sex Assigned At Not on file O [facility] Start: 02-13-2022 End: 07-07-2022 Exposure to SARS-CoV-2 (event) Not sure [facility] Start: 12-23-2021 End: 10-22-2024 Alcohol intake Current non-drinker of alcohol (finding) [facility] Start: 06-13-2022 End: 04-13-2023 Tobacco smoking status NHIS Unknown if ever smoked [facility] Start: 1980 Sex Assigned At Female [facility] Start: 12-09-2022 History SDOH Alcohol Std Drinks 0 [facility] Start: 12-09-2022 History SDOH Social Connections Phone 5 [facility] Start: 12-09-2022 History SDOH Social Connections Get Together 3 [facility] Start: 12-09-2022 History SDOH Physica l Activity DPW 4 [facility] Start: 12-09-2022 History SDOH Transpo rt Med 2 [facility] Start: 10-12-2020 End: 12-09-2022 History of Social function [facility] Start: 10-12-2020 End: 12-09-2022 Social connection and isolation panel [facility] Do you belong to any clubs or organizations such as yazidi groups, unions, fraternal or athletic groups, or school groups? Yes [facility] Are you now , , , , never or living with a partner? [facility] How often to you hav e a drink containing alcohol? Never [facility] How many standard dr inks containing alcohol do you have on a typical day? Patient does not drink [facility] Do you feel stress - tense, restless, nervous, or anxious, or unable to sleep at night because your mind is troubled all the time - these days [OSQ] Not at all [facility] (I/We) worried wheth er (my/our) food would run out before (I/we) got money to buy more. Never true [facility] In the past 12 month s, was there a time when you were not able to pay the mortgage or rent on time? No [facility] Tobacco smoking status No Smokin g Status Entered [facility] NEGATED: Highlighted row [facility] Medical Equipment Procedure Code Equipment Code Equipment Origin al Text Equipment Identifier Dates [id number], [id number], [id number], [id number], [id number], [id number], [id number] Start: 07-05-2017 End: 08-25-2024 Comment on above: Test blood sugar(s) 4 times daily. Dx: Type 2 DM - Controlled E11.9 Insulin: Yes Use one needle for e ach dose. 5/day. Test blood sugar(s) 4 times daily and as needed. Dx: 250.02. Insulin: Yes use 1 NEEDLE FOR EAC H DOSE, four times a day Mesh 6x4in Ellip se [employer] [facility] - [id number] Start: 05-21-2022 Functional Status Date Assessment Result Facility 09-30-2023 Functional Status Standard Safet y ID band on, Call device within reach, Bed in low position, Wheels locked, Visitor at bedside [facility] 09-22-2023 Functional Status ID band on, Call device within reach, Bed in low position, Wheels locked, Upper/Half-Length side-rails up, Phone within reach, personal items within reach [facility] 06-21-2014 Are you deaf, or do you have serious difficulty hearing No 06/21/2014 2:44 PM EDT Angy Vazquez Ma No [facility] 06-21-2014 Are you blind, or do you have serious difficulty seeing, even when wearing glasses No 06/21/2014 2:44 PM EDT Angy Vazquez Ma No [facility] 06-21-2014 Do you have serious difficulty walking or climbing stairs No 06/21/2014 2:44 PM EDT Angy Vazquez Ma No [facility] 06-21-2014 Do you have difficul ty dressing or bathing No 06/21/2014 2:44 PM EDT Angy Vazquez Ma No [facility] 06-21-2014 Because of a physica l, mental, or emotional condition, do you have difficulty doing errands alone such as visiting a physician's office or shopping No 06/21/2014 2:44 PM EDT Angy Vazquez Ma No [facility] Mental Status Date Assessment Result Facility 05-28-2024 Mental Status Orientation Oriented x 4 [facility] 09-30-2023 Mental Status Orientation Oriented x 4 [facility] 09-22-2023 Mental Status Oriented x 4 [facility] 06-21-2014 Because of a physica l, mental, or emotional condition, do you have serious difficulty concentrating, remembering, or making decisions No 06/21/2014 2:44 PM EDT Angy Vazquez Ma No [facility] Clinical Notes 06-02-2021 to 03-12-2025 Telephone Encounter - Jean Claude Huitron MD - 10/23/2024 1:04 PM ESTTelephone Encounter - Jean Claude Huitron MD - 10/23/2024 1:04 PM Jean Claude Reeder MD - 10/22/2024 7:45 AM EST Note Date & Type Note Facility 03-12-2025 Note Patient Outreach (FA MPWS) KENYATRICE ([id number]) 1980 F Date Time Provider Department 03/12/25 [...] for screening mammogram for breast cancer [Z12.31] Order(s):JSESICA SCREENING W COLIN [[id number]] Order #: [id number] FUTURE Prescriptions as of 04/12/2025 - atorvastatin [...] times a day before meals. - Insulin [place], Disposable, (BD ULTRA-FINE VINOD PEN NEEDLE) 32 gauge x 5/32 Inject 100 Each subcutaneously four times daily. - Lancets (ACCU-CHEK SOFTCLIX LANCETS) Test blood sugar(s) 4 times daily and as needed. Dx: 250.02. Insulin: Yes - Blood-Glucose Meter (ACCU-CHEK KENNY PLUS METER) Test glucose twice daily, 250.02. Insulin yes. - Insulin [place], Disposable, (BD ULTRA-FINE VINOD PEN NEEDLE) 32 gauge x 5/32 Use one needle for each dose. 5/day. - blood sugar diagnostic (FX BridgeTOUCH VERIO TEST STRIPS) test strip Test blood [...] legs syndrome) [G25.81] 04/24/2022 Encounter Status:Closed by EDMOND HUDSONUSEMukesh on 04/12/25 [facility] 10-23-2024 Telephone encounter Note 6 month refills sent as requested. [facility] 10-23-2024 Miscellaneous Notes 6 month refills [...] 2024 3:13 PM documented in this encounter [facility] 10-22-2024 Telephone encounter Note Phoned patient aware rx x 3 were sent to the pharmacy. [facility] 10-22-2024 Miscellaneous Notes Phoned patient aware rx x 3 were sent to the pharmacy. Prescription refills sent for atorvastatin, Requip and lisinopril. Irlanda Hogan APRN.CNP documented in this encounter [facility] 10-22-2024 Telephone encounter Note Prescription refills sent for atorvastatin, Requip and lisinopril. Irlanda Hogan APRN.CNP [facility] 10-22-2024 Telephone encounter Note Patient calling [...] Arce LPN October 22, 2024 3:13 PM [facility] 10-22-2024 Note HNO ID: [id number] Author: JEAN CLAUDE HUITRON MD Service: ? [...] fasting 100-162 range with majority <140. Before [id number] with Majority around the 130-160s. Patient's last HgA1C was Hemoglobin A1C (%) Date Value 04/06/2024 8.3 08/03/2023 7.0 07/15/2021 6.9 06/01/2021 7.5 ) Last Ophthalmology exam was within the past 6 months and was negative for Diabetic Retinopathy. [facility]. Last Podiatry exam was within the past [...] File Prior to Visit Medication Sig Insulin [place], Disposable, (BD ULTRA-FINE VINOD PEN NEEDLE) 32 [...] glucose twice daily, 250.02. Insulin yes. Insulin [place], Disposable, (BD ULTRA-FINE VINOD PEN NEEDLE) 32 [...] lb) LMP 0 (more content not included)... [facility] 10-22-2024 History of Present illness Narrative [...] fasting 100-162 range with majority <140. Before -195 with Majority around the 130-160s. Patient's last HgA1C was Hemoglobin A1C (%) Date Value 04/06/2024 8.3 08/03/2023 7.0 07/15/2021 6.9 06/01/2021 7.5 ) Last Ophthalmology exam was within the past 6 months and was negative for Diabetic Retinopathy. [facility]. Last Podiatry exam was within the [...] File Prior to Visit Medication Sig Insulin [place], Disposable, (BD ULTRA-FINE VINOD PEN NEEDLE) 32 [...] glucose twice daily, 250.02. Insulin yes. Insulin [place], Disposable, (BD ULTRA-FINE VINOD PEN NEEDLE) 32 [...] Abs Lymph 1.00 - 4.00 k/uL 3.22 Tensas% % 6.7 Abs Tensas <0.87 k/uL 0.86 Eosin% % 0.6 Abs [...] hyperglycemia, with long-term current use of insulin ([facility]) - ICD9: 250.00, 790.29, V58.67, ICD10: E11.65, [...] Claude Huitron MD documented in this encounter [facility] 09-25-2024 History of Present illness Narrative 09/25/2024 Patient presents with: Hospital F/U: TCM; [facility] SUBJECTIVE: This is a 44 year old that is here today for Above Complaints, HOSPITAL/ER FOLLOW UP: Reason for visit: perianal pain and swelling Which facility: [facility] Date of visit: 09/16/2024-09/18/2024 Diagnosis: rectal abscess [...] reviewed TRANSITION CARE MANAGEMENT (TCM) INITIAL CONTACT Cosmetic Chemist Outreach Provider Action/FYI Initial contact with patient post discharge, spoke to patient. Patient identified by name and . TRANSITION CARE MANAGEMENT INITIAL OUTREACH DOCUMENTATION: 09/19/2024 Date of Outreach: Date of Discharge 09/18/2024 SUMMARY: -Pt discharged from [facility] on 09/18/24. -Admitted for: Rectal Abcess Do [...] MEDICATIONS Current Outpatient Medications Medication Sig Insulin [place], Disposable, (BD ULTRA-FINE VINOD PEN NEEDLE) 32 [...] glucose twice daily, 250.02. Insulin yes. Insulin [place], Disposable, (BD ULTRA-FINE VINOD PEN NEEDLE) 32 [...] which included preparing to see the patient, [id number] patient care, completing clinical documentation, obtaining and/or reviewing separately obtained history, performing a medically appropriate examination, counseling and educating the patient/family/caregiver, and ordering medications, tests, or procedures. documented in this encounter [facility] 09-25-2024 Note HNO ID: [id number] Author: IRLANDA HOGAN APRN.JAISON Service: ? Author Type: Nurse Practitioner Type: Progress Notes Filed: 09/25/2024 08:29 Note Text: 09/25/2024 Patient presents with: Hospital F/U: TCM; [facility] SUBJECTIVE: This is a 44 year old that is here today for Above Complaints, HOSPITAL/ER FOLLOW UP: Reason for visit: perianal pain and swelling Which facility: [facility] Date of visit: 09/16/2024-09/18/2024 Diagnosis: rectal abscess [...] reviewed TRANSITION CARE MANAGEMENT (TCM) INITIAL CONTACT Cosmetic Chemist Outreach Provider Action/FYI Initial contact with patient post discharge, spoke to patient. Patient identified by name and . TRANSITION CARE MANAGEMENT INITIAL OUTREACH DOCUMENTATION: 09/19/2024 Date of Outreach: Date of Discharge 09/18/2024 SUMMARY: -Pt discharged from [facility] on 09/18/24. -Admitted for: Rectal Abcess Do [...] MEDICATIONS Current Outpatient Medications Medication Sig Insulin [place], Disposable, (BD ULTRA-FINE VINOD PEN NEEDLE) 32 [...] glucose twice daily, 250.02. Insulin yes. Insulin [place], Disposable, (BD ULTRA-FINE VINOD PEN NEEDLE) 32 gauge x 5/32 Use one needle for each dose. 5/day. blood sugar diagnostic (FX BridgeTOUCH VERIO TEST STRIPS) test strip Test blood [...] tenderness to p (more content not included)... [facility] 09-24-2024 Telephone encounter Note Patient calls back and is rescheduled to see Irlanda tomorrow morning. Alejandra Larkin RN [facility] 09-24-2024 Miscellaneous Notes Patient calls back and is rescheduled to see Irlanda tomorrow morning. Alejandra Larkin RN Telephone call placed to patient. Message left to call office back to change appointment. Gabriela Llamas LPN documented in this encounter [facility] 09-24-2024 Telephone encounter Note Telephone call placed to patient. Message left to call office back to change appointment. Gabriela Llamas LPN [facility] 09-20-2024 Note HNO ID: [id number] Author: JEAN CLAUDE HUITRON MD Service: ? Author Type: Physician Type: Progress Notes Filed: 09/20/2024 11:18 Note Text: Reviewed. [facility] 09-20-2024 History of Present illness Narrative Reviewed. Patient returned call. TCM questions reviewed. Brayden Bird RN 2nd attempt at reaching patient. Message left to call office back. Gabriela Llamas LPN TRANSITION CARE MANAGEMENT (TCM) INITIAL CONTACT Cosmetic Chemist Outreach Provider Action/FYZachary Initial contact with patient post discharge, spoke to patient. Patient identified by name and . TRANSITION CARE MANAGEMENT INITIAL OUTREACH DOCUMENTATION: 09/19/2024 Date of Outreach: Date of Discharge 09/18/2024 SUMMARY: -Pt discharged from [facility] on 09/18/24. -Admitted for: Rectal Abcess Do [...] hospitalization: Care Everywhere documented in this encounter [facility] 09-19-2024 Note HNO ID: [id number] Author: BRAYDEN BIRD RN Service: ? Author Type: Registered Nurse Type: Progress Notes Filed: 10/22/2024 03:03 Note Text: Patient returned call. TCM questions reviewed. Brayden Bird RN [facility] 09-19-2024 Note HNO ID: [id number] Author: GABRIELA LLAMAS LPN Service: ? Author Type: LICENSED NURSE Type: Progress Notes Filed: 09/19/2024 19:39 Note Text: 2nd attempt at reaching patient. Message left to call office back. Gabriela Llamas LPN [facility] 09-19-2024 Note HNO ID: [id number] Author: BRAYDEN BIRD RN Service: ? Author Type: Registered Nurse Type: Progress Notes Filed: 10/22/2024 03:03 Note Text: TRANSITION CARE MANAGEMENT (TCM) INITIAL CONTACT Cosmetic Chemist Outreach Provider Action/FYI Initial contact with patient post discharge, spoke to patient. Patient identified by name and . TRANSITION CARE MANAGEMENT INITIAL OUTREACH DOCUMENTATION: 09/19/2024 Date of Outreach: Date of Discharge 09/18/2024 SUMMARY: -Pt discharged from [facility] on 09/18/24. -Admitted for: Rectal Abcess Do [...] Medical records from recent hospitalization: Care Everywhere [facility] 09-19-2024 Note Patient Outreach (FA MPWS) TRICE ZAMBRANO ([id number]) 1980 F Date Time Provider Department 09/19/24 [place] During your visit today, we recorded the following information about you: Brayden Bird RN 10/22/2024 3:03 AM Signed TRANSITION CARE MANAGEMENT (TCM) INITIAL CONTACT Cosmetic Chemist Outreach Provider Action/FYI Initial contact with patient post discharge, spoke to patient. Patient identified by name and . TRANSITION CARE MANAGEMENT INITIAL OUTREACH DOCUMENTATION: 09/19/2024 Date of Outreach: Date of Discharge 09/18/2024 SUMMARY: -Pt discharged from [facility] on 09/18/24. -Admitted for: Rectal Abcess Do [...] for Visit: Transition Of Care [4074] Cmt: [facility] discharge 09/18/24 Prescriptions as of 10/22/2024 - Insulin [place], Disposable, (BD ULTRA-FINE VINOD PEN NEEDLE) 32 [...] twice daily, 250.02. Insulin yes. - Insulin [place], Disposable, (BD ULTRA-FINE VINOD PEN NEEDLE) 32 [...] Encounter Status:Closed by EPIC, PRODUSER on 10/22/24 [facility] 09-18-2024 Note [facility] Medical Records Department [address] [place] [address] Discharge Summary 09/18/24 1102 MR#: [id number] Acct: [id number] Name: TRICE ZAMBRANO Rep #: [id number] : 1980 44 From: Jorge Frazier DO PCP: Dr. Joaquin Huitron MD Status:DIS IN Location: [place] [address] Providers Date of Admission: 09/16/24 Date of [...] was seen in the emergency room at [facility] with complaints of pain with fever [...] the perineal area, she was admitted to [place] [address] and placed on IV antibiotics. Patient was [...] kg Body M (more content not included)... [facility] 09-16-2024 Note HNO ID: [id number] Author: RONY CHÁVEZ APRN.[facility] Service: ? Author Type: Nurse Practitioner Type: [...] understandable and will take her self now [facility] 09-16-2024 History of Present illness Narrative [...] her self now documented in this encounter [facility] 08-29-2024 Telephone encounter Note Detailed VM left on pt's identified voicemail of information below. Reena Crooks LPN [facility] 08-29-2024 Miscellaneous Notes Detailed VM left [...] appointment. Please assist in scheduling. Irlanda Hogan APRN.SPRINKLING SYSTEM IRRIGATOR documented in this encounter [facility] 08-27-2024 Telephone encounter Note See other phone encounter. Reena Crooks LPN [facility] 08-27-2024 Miscellaneous Notes See other phone [...] 2024 11:57 AM documented in this encounter [facility] 08-27-2024 Telephone encounter Note Please give message to pt when she calls. Other prescriptions refilled for 30 days. Pt will need apt in office for future refills. Reena Crooks LPN [facility] 08-27-2024 Telephone encounter Note Phoned patient and detailed message left on secure VM that patient formally identifies herself regarding she needs a OV and 30 day scripts sent for requested meds in the meantime. Celeste Villa LPN [facility] 08-27-2024 Miscellaneous Notes Phoned patient and [...] 2024 12:11 PM documented in this encounter [facility] 08-27-2024 Telephone encounter Note Patient is overdue for 3 month f/u and needs to reschedule OV. Please call. Will send in rx for 30 days. [facility] 08-27-2024 Telephone encounter Note Patient is overdue for 3 month f/u and needs to reschedule OV. Please call. Will send in rx for 30 days. [facility] 08-27-2024 Telephone encounter Note Prescription Refill Information [...] Paul LPN August 27, 2024 12:11 PM [facility] 08-27-2024 Telephone encounter Note Prescription Refill Information [...] Paul LPN August 27, 2024 11:57 AM [facility] 08-27-2024 Telephone encounter Note Left a message for pt to call the office and ask to speak to a nurse. Reena Crooks LPN [facility] 08-27-2024 Telephone encounter Note Patient is overdue for appointment. Please assist in scheduling. Irlanda Hogan APRN.SPRINKLING SYSTEM IRRIGATOR [facility] 07-17-2024 Telephone encounter Note Telephoned the patient regarding cancelled appt. Left a message. [facility] 07-17-2024 Miscellaneous Notes Telephoned the patient regarding cancelled appt. Left a message. Primary Care Pharmacy Rescheduling Outreach Patient cancelled new pharm visit on 06/14 and has not rescheduled yet. Call center, please contact patient and reschedule in person, telephone, and virtual visit for Diabetes management within ~4 week(s). (Visit length: 60 minutes) Thank you, Indu Pham, PharmDave, BCACP Primary Care Clinical Customer Support Coordinator 07/17/2024 10:49 AM documented in this encounter [facility] 07-17-2024 Telephone encounter Note Primary Care Pharmacy Rescheduling Outreach Patient cancelled new pharm visit on 06/14 and has not rescheduled yet. Call center, please contact patient and reschedule in person, telephone, and virtual visit for Diabetes management within ~4 week(s). (Visit length: 60 minutes) Thank you, Indu Pham, PharmD, BCACP Primary Care Clinical Customer Support Coordinator 07/17/2024 10:49 AM [facility] Work Phone: 07-16-2024 Telephone encounter Note Patient active MyChart. Patient notified via Office Center message. Jonathan Kim MA [facility] 07-16-2024 Miscellaneous Notes Patient active MyChart. Patient notified via Office Center message. Jonathan Kim MA Left VM instructing patient to return call to receive results. Gabi Hsu MA Please let patient know she does not have a UTI. Follow-up with PCP for persistent symptoms documented in this encounter [facility] 07-13-2024 Telephone encounter Note Left VM instructing patient to return call to receive results. Gabi Hsu MA [facility] 07-13-2024 Telephone encounter Note Please let patient know she does not have a UTI. Follow-up with PCP for persistent symptoms [facility] Work Phone: 07-11-2024 Instructions Tahmina Cota [...] holding him or her). Tahmina Cota, Student ENVIRONMENTAL SAFETY SPECIALIST documented in this encounter [facility] 07-11-2024 Note HNO ID: [id number] Author: LETITIA ODELL APRN.SPRINKLING SYSTEM IRRIGATOR Service: ? Author Type: Nurse Practitioner Type: [...] of buttock No date: Colostomy in place ([facility]) Comment: Reversed No date: Diabetes mellitus type II ([facility]) No date: Gestational diabetes No date: Hyperlipidemia No date: Kidney stones Comment: Dr. Nance 04/2022: Liver lesion No date: Neuropathy No date: Obesity (BMI 30-39.9) No date: RLS (restless legs syndrome) 04/2021: Septicemia ([facility]) Comment: buttock abscess No date: Ventral hernia [...] glucose twice daily, 250.02. Insulin yes. Insulin [place], Disposable, (BD ULTRA-FINE VINOD PEN NEEDLE) 32 gauge x 5/32 Use one needle for each dose. 5/day. blood sugar diagnostic (FX BridgeTOUCH VERIO TEST STRIPS) test strip Test blood [...] membrane normal. Nose: Nose normal. Mouth/Throat: Lips: [place]. Mouth: Mucous membranes are moist. Pharynx: Posterior oropharyngeal erythema present. Comments: Mild erythema posterior pharynx Eyes: Extraocular Movements: Extraocular movements intact. Conjunctiva/sclera: Conjunctivae normal. Neck: Comments: Tenderness on palpation to left anterior cervical lymph node. Cardiovascular: Rate and Rhythm: Normal rate and regular rhythm. Pulses: Normal pulses. Heart sounds: Normal heart sounds. Pulm (more content not included)... [facility] 07-11-2024 History of Present illness Narrative [...] of buttock No date: Colostomy in place ([facility]) Comment: Reversed No date: Diabetes mellitus type II (HCC) No date: Gestational diabetes No date: Hyperlipidemia No date: Kidney stones Comment: Dr. Nance 04/2022: Liver lesion No date: Neuropathy No date: Obesity (BMI 30-39.9) No date: RLS (restless legs syndrome) 04/2021: Septicemia ([facility]) Comment: buttock abscess No date: Ventral hernia [...] glucose twice daily, 250.02. Insulin yes. Insulin [place], Disposable, (BD ULTRA-FINE VINOD PEN NEEDLE) 32 gauge x 5/32 Use one needle for each dose. 5/day. blood sugar diagnostic (StitchUCH VERIO TEST STRIPS) test strip Test blood [...] membrane normal. Nose: Nose normal. Mouth/Throat: Lips: [place]. Mouth: Mucous membranes are moist. Pharynx: Posterior [...] is agreeable with plan. Tahmina Cota, Student ENVIRONMENTAL SAFETY SPECIALIST TEACHING PROVIDER (Physician/PA/INSTRUMENTATION AND CONTROLS TECHNICIAN) NOTE OF PERSONAL INVOLVEMENT IN CARE: I have personally seen and examined the patient and performed the medical decision-making components. I have reviewed the Advanced Practice Registered Nurse (INSTRUMENTATION AND CONTROLS TECHNICIAN) Student's documentation and verified the findings in the note as written. Any additions or changes are noted in bold/italics. Signature: Letitia Odell Date: 07/11/2024 Time: 3:10 PM documented in this encounter [facility] 05-28-2024 Hospital Discharge instructions Patient Education [...] for 8 hours and increasing bladder pressure [id number] [employer] [place]. [address] [place] [address]. All rights reserved. This information is not intended as a substitute for professional medical care. Always follow your healthcare professional's instructions. Follow Up Care 05/28/2024 15:07:07 With:MARTHA NANCE MD, [employer] Address: [address] [place] [phone] When:2-4 days [facility] 05-28-2024 Emergency department Discharge summary Discharge Instructions Thank you for allowing [facility] to assist you with your healthcare needs. [...] Appointments Follow Up with MARTHA NANCE MD, [employer] When:Within 2-4 days Where:[address] [place] [phone] Allergies NKA Medications Please ask your primary [...] hours as needed for Nausea/Vomiting Unchanged acetaminophen-hydrocodone ([place] 325- 5 mg oral tablet) 1 tab(s) [...] for 8 hours and increasing bladder pressure [id number] [employer] [place]. [address] [place] [address]. All rights reserved. This information is not intended as a substitute for professional medical care. Always follow your healthcare professional's instructions. Additional Information VACCINATE! IT SAVES LIVES! Members of the community who have not yet received the COVID-19 vaccine and would like to receive it can visit one of [facility] vaccine clinics. There are many vaccine clinic locations [facility] the [facility]. For locations and available times, please visit [email or web address] /. It is important to note that some COVID mobile vaccine clinics are held outdoors and may be canceled in rainy or stormy conditions. To learn more about pediatric vaccinations (ages 5-11), we invite you to visit the [facility] webpage. [email or web address] [email or web address] To learn more about the COVID-19 vaccine, we invite you to visit the CDC website for a list of frequently asked questions. https://www.cdc.gov/coronavirus/201 9-ncov/vaccines/faq.html [facility] Patient Portal Access Instructions: Stay connected with your healthcare team and access your personal medical information anytime with the [facility] Patient Portal. If you would like a full copy of your medical records please contact the [facility] Medical Records Department Tuesday through Tuesday between 8a.m. and 4:30p.m. Please follow the directions below to access the portal: 1.Access the email account you provided upon registration to the [facility].2.Look for an invitation email from [facility].3.Open the email and access the invitation link: Accept Invitation to [facility]4.Fill in the required yanez to create your account. Sign into [email or web address] with your username and password that you [...] you will allow to register on the [facility] Patient Portal for access to your information. You can also access the [facility] Patient Portal on the sMedio leola. Simply click on Health Records under Health Data and then click on the [employer] logo. HOW TO SAFELY DISPOSE OF PRESCRIPTION [...] Call your local pharmacy or go to http://bit.Ibotta/8P7Bm3d to find one close to you.3.Make use of household items: Use cat litter or old coffee grounds to dispose medications if other options are not available. Mix your drugs with these household products, seal them in an airtight container and throw it into the garbage. Call [facility]: [phone] to be sure your drugs can be [...] aware that I should contact my doctor. Patient/Track Laying Machine Operator Signature: ____ Date/Time: Relationship to Patient: __ Witness Name/Signature: Date/Time: [facility] 05-28-2024 Note ORIGINAL EXAMINATION: CT OF THE [...] Sign Date: 05/28/2024 5:06:46 PM Ordering Provider: [facility] 05-03-2024 Telephone encounter Note It sounds like [...] discuss changes to requip at that OV. [facility] 05-03-2024 Miscellaneous Notes It sounds like [...] at that OV. documented in this encounter [facility] 05-03-2024 Telephone encounter Note Prescription Refill [...] Requested Prescriptions Pending Prescriptions Disp Refills Insulin [place], Disposable, (BD ULTRA-FINE VINOD PEN NEEDLE) 32 [...] Villa LPN May 03, 2024 6:44 AM [facility] 05-03-2024 Miscellaneous Notes Prescription Refill Information [...] Requested Prescriptions Pending Prescriptions Disp Refills Insulin [place], Disposable, (BD ULTRA-FINE VINOD PEN NEEDLE) 32 [...] 2024 6:44 AM documented in this encounter [facility] 04-11-2024 Telephone encounter Note TC to patient who verbalized understanding of providers message below with no questions at this time. VELVET Rey [facility] 04-11-2024 Miscellaneous Notes TC to patient [...] Other labs unremarkable. documented in this encounter [facility] 04-11-2024 Telephone encounter Note Diabetes uncontrolled [...] in about 2-3 weeks. Other labs unremarkable. [facility] 04-10-2024 Telephone encounter Note Telephoned the patient to schedule a new Primary Care pharmacy appt. Left a message. Made two attempts to contact the patient. Patient has not returned the call. If the patient returns a call, an appt will be scheduled. Encounter routed to the clinical pharmacist. [facility] 04-10-2024 Miscellaneous Notes Telephoned the patient [...] Left a message. documented in this encounter [facility] 04-09-2024 Telephone encounter Note Telephoned the patient to schedule a new Primary Care pharmacy appt. Left a message. [facility] 04-06-2024 History of Present illness Narrative [...] was within the past 12 months at [facility]. Reports no retinopathy. Switching to [facility]. Last Podiatry exam was within the past 12 months RLS symptoms uncontrolled on 1 mg requip. Still feels like she needs to get up and move around on a nightly basis. Would like to try higher dosage. Patient needs referral to new ADVERTISING REP for routine cervical cancer screening. Last OV with previous ADVERTISING REP was 2 years ago and was reportedly normal. Cannot remember the name of her last ADVERTISING REP today. Up to date on mammogram. Agreeable [...] by mouth twice daily. blood sugar diagnostic (StitchUCH VERIO TEST STRIPS) test strip Test blood sugar(s) 4 times daily. Dx: Type 2 DM - Controlled E11.9 Insulin: Yes Insulin [place], Disposable, (BD ULTRA-FINE VINOD PEN NEEDLE) 32 [...] No history of dysuria, frequency or incontinence ADVERTISING REP: Negative for abnormal vaginal bleeding, abnormal vaginal [...] Abs Lymph 1.00 - 4.00 k/uL 2.72 Tensas% % 7.7 Abs Tensas <0.87 k/uL 0.70 Eosin% % 1.4 Abs [...] Claude Huitron MD documented in this encounter [facility] 02-03-2024 Miscellaneous Notes February 06, 2024 PID: [id number] Trice MaldonadoJose Zambrano [address] [place] [address] Dear Ms. Zambrano, We are pleased to [...] report will be kept on file at [facility] as part of your permanent medical record and are available for your continuing care. Thank you for allowing us to help in meeting your health care needs. Sincerely, Dr. Ellis Interpreting Radiologist [facility] Breast Imaging (Normal over 40) documented in this encounter [facility] 10-11-2023 Evaluation + Plan note Diagnostic Tests PendingUrinary Calculi Panel 10/11/23 [facility] 10-11-2023 Note Pathology Report verified by [facility] DAWSON HARMON Sign out Date: 10/11/2023 09:37 Performing Lab: [facility], [address] [place] [address] [facility] Pathology Dept [facility] 10-11-2023 Note Pathology Report verified by [facility] DAWSON HARMON Sign out Date: 10/11/2023 09:37 Performing Lab: [facility], [address] [place] [address] Pathology Dept [facility] 10-11-2023 Note Pathology Report verified by [facility] DAWSON HARMON Sign out Date: 10/11/2023 09:37 Performing Lab: [facility], [address] [place] [address] Pathology Dept [facility] 10-10-2023 Note Pathology Report verified by [facility] DAWSON HARMON Sign out Date: 10/11/2023 09:37 Performing Lab: [facility], [address] [place] [address] Pathology Dept [facility] 10-10-2023 Note Pathology Report verified by [facility] DAWSON HARMON Sign out Date: 10/11/2023 09:37 Performing Lab: [facility], [address] [place] [address] Pathology Dept [facility] 10-10-2023 Note Pathology Report verified by [facility] DAWSON HARMON Sign out Date: 10/11/2023 09:37 Performing Lab: [facility], [address] [place], [place] [id number] [facility] Pathology Dept [facility] 10-10-2023 Note Pathology Report verified by [facility] DAWSON HARMON Sign out Date: 10/11/2023 09:37 Performing Lab: [address] [address] [facility] Pathology Dept [facility] 10-03-2023 Note . MICRO - Microbiology PROCEDURE: [...] Locations *1: This test was performed at: [address], [address] , [facility] ([place]) 09-30-2023 Hospital Discharge instructions Patient Education 09/30/2023 [...] If needed, more treatment may be started. 9474-3574 [employer] [place]. [address] [place] [address]. All rights reserved. This information is not [...] for 8 hours and increasing bladder pressure 4612-2683 [employer] [place]. [address] [place] [address], [place] [address]. All rights reserved. This information is not intended as a substitute for professional medical care. Always follow your healthcare professional's instructions. Follow Up Care 09/30/2023 11:59:05 With:MARTHA NANCE MD, [facility] Address: [address] [place] [phone]- [phone] When: Unknown Comments:Follow-up Tuesday. Return if note fever , increased pain [facility] 09-30-2023 Evaluation + Plan note Diagnostic Tests PendingUrine Culture 09/30/23 [facility] 09-30-2023 Emergency department Discharge summary Discharge Instructions Thank you for allowing [facility] to assist you with your healthcare needs. The following is important discharge information regarding your hospital visit. Diagnosis from Today's Visit Dysuria Flank pain Kidney stone What to Do Next Instructions from Your Care Team No qualifying data available. Post Acute Orders No qualifying data available. You Need to Schedule the Following Appointments Follow Up with MARTHA NANCE MD, [facility] When Why: Follow-up Tuesday. Return if note fever , increased pain Where: [address] [place] [phone]- [phone] Allergies NKA Medications Please ask your primary doctor or pharmacist before taking any other medication not listed, including over the counter drugs, herbal medications, vitamins and or supplements as they may interact with your home medications. What How Much When Why Instructions Last Dose New acetaminophen-hydrocodone ([place] 325- 5 mg oral tablet) 1 tab(s) [...] If needed, more treatment may be started. 4642-0556 [employer] [place]. [address] [place] [address], [place] [address]. All rights reserved. This information is not [...] for 8 hours and increasing bladder pressure 2600-5846 [employer] [place]. [address] [place] [address]. All rights reserved. This information is not intended as a substitute for professional medical care. Always follow your healthcare professional's instructions. Additional Information VACCINATE! IT SAVES LIVES! Members of the community who have not yet received the COVID-19 vaccine and would like to receive it can visit one of [facility] vaccine clinics. There are many vaccine clinic locations within the [facility]. For locations and available times, please visit www.gettheshot.coronavirus.[place].gov /. It is important to note that some COVID mobile vaccine clinics are held outdoors and may be canceled in rainy or stormy conditions. To learn more about pediatric vaccinations (ages 5-11), we invite you to visit the [facility] webpage. https://www.[facility].org/page s/4686-Poksy-Lzaeoscehjt-Frequently -Asked-Questions.html To learn more about the COVID-19 vaccine, we invite you to visit the CDC website for a list of frequently asked questions. https://www.cdc.gov/coronavirus/201 9-ncov/vaccines/faq.html [facility] Patient Portal Access Instructions: Stay connected with your healthcare team and access your personal medical information anytime with the [facility] Patient Portal. If you would like a full copy of your medical records please contact the [facility] Medical Records Department Tuesday through Tuesday between 8a.m. and 4:30p.m. Please follow the directions below to access the portal: 1.Access the email account you provided upon registration to the [facility].2.Look for an invitation email from [facility].3.Open the email and access the invitation link: Accept Invitation to [facility]4.Fill in the required yanez to create your account. Sign into [email or web address] with your username and password that you [...] you will allow to register on the [facility] Patient Portal for access to your information. You can also access the [facility] Patient Portal on the sMedio leola. Simply click on Health Records under [...] Call your local pharmacy or go to http://bit.ly/9C9Ia0g to find one close to you.3.Make use of household items: Use cat litter or old coffee grounds to dispose medications if other options are not available. Mix your drugs with these household products, seal them in an airtight container and throw it into the garbage. Call [facility]: [phone] to be sure your drugs can be [...] aware that I should contact my doctor. Patient/Track Laying Machine Operator Signature: ____ Date/Time: Relationship to Patient: __ Witness Name/Signature: Date/Time: [facility] 09-30-2023 Note ORIGINAL EXAMINATION: CT OF THE [...] Sign Date: 09/30/2023 1:36:29 PM Ordering Provider: [facility] 09-22-2023 Hospital Discharge instructions Patient Education [...] If needed, more treatment may be started. 0348-3368 [employer] [place]. [address] [place] [address], [place] [address]. All rights reserved. This information is not intended as a substitute for professional medical care. Always follow your healthcare professional's instructions. Follow Up Care 09/22/2023 17:51:50 With:MARTHA NANCE MD, [employer] Address: [address] [place] [phone]- [phone] When:2-4 days With:JEAN CLAUDE HUITRON MD Address: [address] [place] [phone]- When:2-4 days [facility] 09-22-2023 Note Discharge Instructions Thank you for allowing [facility] to assist you with your healthcare needs. The following is important discharge information regarding your hospital visit. Diagnosis from Today's Visit Flank pain Kidney stone UTI - Urinary tract infection What to Do Next Instructions from Your Care Team No qualifying data available. Post Acute Orders No qualifying data available. You Need to Schedule the Following Appointments Follow Up with MARTHA NANCE MD, [employer] When Within 2-4 days Where: [address] [place] [phone] Follow Up with JEAN CLAUDE HUITRON MD When Within 2-4 days Where: [address] [place] [phone]- Allergies NKA Medications Please ask your [...] If needed, more treatment may be started. 6799-9263 [employer] [place]. [address] [place] [address]. All rights reserved. This information is not intended as a substitute for professional medical care. Always follow your healthcare professional's instructions. Additional Information VACCINATE! IT SAVES LIVES! Members of the community who have not yet received the COVID-19 vaccine and would like to receive it can visit one of [facility] vaccine clinics. There are many vaccine clinic locations within the [facility]. For locations and available times, please visit www.gettheshot.coronavirus.[place].gov /. It is important to note that some COVID mobile vaccine clinics are held outdoors and may be canceled in rainy or stormy conditions. To learn more about pediatric vaccinations (ages 5-11), we invite you to visit the [facility] webpage. https://www.[facility].org/page s/1291-Gvklw-Ccbsfylbpnz-Frequently -Asked-Questions.html To learn more about the COVID-19 vaccine, we invite you to visit the CDC website for a list of frequently asked questions. https://www.cdc.gov/coronavirus/201 9-ncov/vaccines/faq.html [facility] Patient Portal Access Instructions: Stay connected with your healthcare team and access your personal medical information anytime with the [facility] Patient Portal. If you would like a full copy of your medical records please contact the [facility] Medical Records Department Tuesday through Tuesday between 8a.m. and 4:30p.m. Please follow the directions below to access the portal: 1.Access the email account you provided upon registration to the [facility].2.Look for an invitation email from [facility].3.Open the email and access the invitation link: Accept Invitation to [facility].Fill in the required yanez to create your account. Sign into [email or web address] with your username and password that you [...] you will allow to register on the [facility] Patient Portal for access to your information. You can also access the [facility] Patient Portal on the sMedio leola. Simply click on Health Records under [...] Call your local pharmacy or go to http://bit.Ibotta/4T3Ss1a to find one close to you.3.Make use of household items: Use cat litter or old coffee grounds to dispose medications if other options are not available. Mix your drugs with these household products, seal them in an airtight container and throw it into the garbage. Call [facility]: [phone] to be sure your drugs can be [...] aware that I should contact my doctor. 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 Form was received and given to nurse. Did we receive a new form for this pt. She completed CMP. Lillie Alva Ma documented in this encounter [facility] 08-09-2023 Miscellaneous Notes Phoned patient and updated her with results and provider's message. Surgical clearance forwarded to Madeline Belle as requested. ----- Message from Jean Claude Huitron MD sent at 08/09/2023 6:35 PM EDT ----- Normal labs. Kidney function normal with creatinine <2. Surgical clearance form signed. Please fax clearance form. documented in this encounter [facility] 08-08-2023 Miscellaneous Notes Notified via CARGOBR. Chantel Vences Ma She does not need [...] Chantel Vences Ma documented in this encounter [facility] 07-08-2023 Miscellaneous Notes TC to pt. [...] to the pharmacy. Please call patient at: [phone] Radha Nieves' documented in this encounter [facility] 06-08-2023 Miscellaneous Notes Faxed as requested. Radha Dalton MA Lucy from [email or web address] calling asking to have pre op clearance form faxed to [phone] if completed please. Please advise Type of letter/form/fax request - pre op form-left shoulder arthroscopy with subacromial decompression, distal clavicle excision and rotator cuff repair. Form received from fax on 1 floor and placed on MD desk (Dr. Huitron) for completion. Completed form needs to be faxed to [email or web address]. Pt has appt today for pre op exam with PCP. Surgery date to be determined. Need most recent A1c results. Pt will have pre op testing scheduled through [facility] once her surgery is scheduled. Route to RAGHU when form completed for processing documented in this encounter [facility] 06-07-2023 Miscellaneous Notes Trice Zambrano (Siddiqui: [id number]) - [id number] Tresiba FlexTouch (insulin degludec injection) 100 Units/mL solution Status: New - Approved Created: June 03, 2023 [id number] documented in this encounter [facility] 06-03-2023 History of Present illness Narrative Chief Complaint Patient [facility] with: [facility] Trice Zambrano is a 42 [...] was less than 12 months ago at [facility] in . Last Podiatry exam was 12 [...] by mouth twice daily. blood sugar diagnostic (Fabulyzer VERIO TEST STRIPS) test strip Test blood sugar(s) 4 times daily. Dx: Type 2 DM - Controlled E11.9 Insulin: Yes atorvastatin (LIPITOR) 10 mg tablet Take 1 tablet by mouth daily at bedtime. For cholesterol. lisinopril (ZESTRIL, PRINIVIL) 5 mg tablet Take 1 tablet by mouth once daily. insulin lispro (HUMALOG KWIKPEN INSULIN) 100 unit/mL Inject 26 units subcutaneously with meals. Insulin [place], Disposable, (BD ULTRA-FINE VINOD PEN NEEDLE) 32 [...] Abs Lymph 1.00 - 4.00 k/uL 2.07 Tensas% % 5.4 Abs Tensas <0.87 k/uL 0.46 Eosin% % 1.4 Abs [...] Claude Huitron MD documented in this encounter [facility] 06-01-2023 Miscellaneous Notes Patient last visit with PCP 01/14/23 Follow up appointment scheduled 06/03/23 Dagmar Perez Ma documented in this encounter [facility] 05-16-2023 Miscellaneous Notes Patient has been [...] you. VELVET Rey documented in this encounter [facility] 04-13-2023 Discharge summary Note Date/Time April 13, 2023 7:01p [facility] Medical Records Department [address] [place] [address] Emergency Department Summary 04/13/23 MR#: [id number] Acct: [id number] Name: TRICE ZAMBRANO Rep #:[id number] : 1980 42 From: Cosme Link MD [...] Narrative Medical decision making narrative: Per the Ethiopian CT head rule imaging of the head [...] (Auto) 72.1 H Lymph % (Auto) 20.2 Tensas % (Auto) 5.1 Eos % (Auto) 1.4 [...] Plan Triage Chief Complaint: Fall ED Provider: Cosem Link Dx/Rx/DC Orders Clinical Impression: Contusion of [...] your Primary Care Provider. Call [facility] ([phone]) or report to the closest Emergency Room. Call 911 if necessary. 04/13/231921 <Electronically signed by Cosme Link MD> Cosigner Signature (if applicable): CC: Dr. Joaquin Huitron MD ~ Signed [facility] Work Phone: 1(542) 696-144605-31-2023 Miscellaneous Notes* Telephone Encounter - Joann Aponte - 04/06/2023 7:26 AM EDT Patient given results and verbalized understanding of instructions given. Joann Aponte * Telephone Encounter - Rony Chávez APRN.CNP - 04/06/2023 7:15 AM EDT Negative For COVID and flu please notify thank you [facility] Miscellaneous Notes* Addendum Note - Letitia Odell APRN.CNP - 04/05/2023 10:26 AM EDT Addended by: LETITIA ODELL on: 04/05/2023 10:26 AM Modules accepted: Orders [facility] History of Present illness Narrative* Letitia [...] by mouth twice daily. blood sugar diagnostic (StitchUCH VERIO TEST STRIPS) test strip Test blood [...] Inject 26 units subcutaneously with meals. Insulin [place], Disposable, (BD ULTRA-FINE VINOD PEN NEEDLE) 32 [...] illness Letitia Odell APRN.CNP [facility] Instructions* Patient Instructions* Letitia Odell APRN.CNP [...] days of proper treatment. [facility] History of Present illness Narrative* Bobbi [...] Inject 26 units subcutaneously with meals. Insulin [place], Disposable, (BD ULTRA-FINE VINOD PEN NEEDLE) 32 gauge x 5/32 Use one needle for each dose. 5/day. Lancets lancets Test blood sugar(s) 4 times daily. Dx: Type 2 DM - Controlled E11.9 Insulin: Yes Lancets (ACCU-CHEK SOFTCLIX LANCETS) lancets Test blood sugar(s) 4 times daily and as needed. Dx: 250.02. Insulin: Yes Blood-Glucose Meter (ACCU-CHEK KENNY PLUS METER) [facility] Test glucose twice daily, 250.02. Insulin yes. [...] with her and [facility] drive [facility]. 2. Numbness and tingling of right arm [...] plan. Bobbi Herbert APRN.CNP [facility] Miscellaneous Notes* Telephone Encounter - KRYSTAL Sharpe - 01/17/2023 10:56 AM EDT Telephoned the patient to schedule a new Primary Care pharmacy appt. Left a message. [facility] History of Present illness Narrative* Jean [...] fasting 200-300 range and bedtime 250-350's. Patient's [id number] was Hemoglobin A1C (%) Date Value 12/28/2022 [...] Inject 26 units subcutaneously with meals. 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 documented in this encounterOhio Valley Hospital02-07-2023 Miscellaneous Notes* Telephone Encounter - Gabriela Llamas LPN - 12/14/2022 7:23 AM EST Patient read CARGOBR message x2. Gabriela Llamas LPN * Telephone Encounter - Jean Claude Huitron MD - 12/06/2022 8:44 AM EST Did they send her a list of approved insulin? documented in this encounterOhio Valley Hospital01-30-2023 Miscellaneous Notes* Telephone Encounter - Chantel Vences Ma - 12/06/2022 6:52 PM EST Last office visit: 12/02/22 F/u scheduled: 12/10/22 Chantel Vences Ma documented in this encounterOhio Valley Hospital01-26-2023 History of Present illness Narrative* Jean Claude Huitron MD - 12/02/2022 3:40 PM EST Chief Complaint Patient presents with: Follow Up: Follow up Immunizations: Flu vaccination HPI Trice Zambrano is a 42 year old female who presents here today for ER Follow Up. Patient evaluated at [place] ED on 11/28 for right gluteal abscess [...] mouth daily at bedtime. For cholesterol. Insulin [place], Disposable, (BD ULTRA-FINE VINOD PEN NEEDLE) 32 [...] Abs Lymph 1.00 - 4.00 k/uL 1.42 Tensas% % 7.6 Abs Tensas <0.87 k/uL 0.78 Eosin% % 0.6 Abs [...] Negative Negative Ketones, Urine Negative Negative Specific Flushing, Ur 1.005 - 1.030 <=1.005 (L) Hemoglobin/Blood,Ur [...] Jean Claude Huitron MD documented in this encounterOhio Valley Hospital01-23-2023 Miscellaneous Notes* Telephone Encounter - Gabriela Llamas LPN - 11/29/2022 2:08 PM EST Detailed message left on patients verified VM. Instructed to call back with questions if has any. Gabriela Llamas LPN * Telephone Encounter - Irlanda Hogan APRN.SPRINKLING SYSTEM IRRIGATOR - 11/29/2022 2:03 PM EST Short term supply sent. Follow-up as scheduled. Irlanda Hogan APRN.JAISON * Telephone Encounter - Brayden Bird RN - 11/29/2022 1:36 PM EST Patient calling with request for Zofran for nausea from taking Keflex prescribed in [place] ER yesterday for gluteal abscess. She says she has a follow up appointment with PCP on 12/02. [facility]. Brayden Bird RN documented in this encounterOhio Valley Hospital01-22-2023 NoteCOVID 19 RESULT: SARS-CoV-2 (Agent of COVID-19) Not Detected by RT-PCR or equivalent method. This test has been authorized by FDA under an Emergency Use Authorization (EUA). INFLUENZA A PCR: Negative for Influenza A by RT-PCR INFLUENZA B PCR: Negative for Influenza B by RT-PCR RSV PCR: Negative for Respiratory Syncytial Virus (RSV) by PCRMasury HospitalComment on above:Performed By: #### [id number] ####[facility] LABORATORYCLIA [id number] [address] [id number] History of Present illness Narrative* Letitia Odell [...] mouth daily at bedtime. blood sugar diagnostic (FX BridgeTOUCH VERIO TEST STRIPS) test strip Test blood sugar(s) 4 times daily. Dx: Type 2 DM - Controlled E11.9 Insulin: Yes atorvastatin (LIPITOR) 10 mg tablet Take 1 tablet by mouth daily at bedtime. For cholesterol. lisinopril (ZESTRIL, PRINIVIL) 5 mg tablet Take 1 tablet by mouth once daily. insulin lispro (HUMALOG KWIKPEN INSULIN) 100 unit/mL Inject 26 units subcutaneously with meals. Insulin [place], Disposable, (BD ULTRA-FINE VINOD PEN NEEDLE) 32 [...] fever. Letitia Odell APRN.JAISON documented in this encounterOhio Valley Hospital01-19-2023 Instructions* Patient Instructions* Letitia Odell APRN.CNP [...] drainage after 3-4 days. documented in this encounterOhio Valley Hospital09-07-2022 History of Present illness Narrative* Irlanda [...] mouth daily at bedtime. blood sugar diagnostic (StitchUCH VERIO TEST STRIPS) test strip Test blood sugar(s) 4 times daily. Dx: Type 2 DM - Controlled E11.9 Insulin: Yes atorvastatin (LIPITOR) 10 mg tablet Take 1 tablet by mouth daily at bedtime. For cholesterol. lisinopril (ZESTRIL, PRINIVIL) 5 mg tablet Take 1 tablet by mouth once daily. insulin lispro (HUMALOG KWIKPEN INSULIN) 100 unit/mL Inject 26 units subcutaneously with meals. Insulin [place], Disposable, (BD ULTRA-FINE VINOD PEN NEEDLE) 32 [...] which included preparing to see the patient, [id number] patient care, completing clinical documentation, obtaining and/or reviewing separately obtained history, performing a medically appropriate examination, counseling and educating the pat ient/family/caregiver, and ordering medications, tests, or procedures. documented in this encounterOhio Valley Hospital09-02-2022 Miscellaneous Notes* Telephone Encounter - Celeste Villa LPN - 07/09/2022 3:36 PM EDT Phoned patient and updated her with provider's message. Patient voiced understanding. * Telephone Encounter - Irlanda Hogan APRN.CNP - 07/09/2022 1:41 PM EDT Urine culture shows cipro should work for infection. Continue to take and follow-up for recheck next week as schedule. Irlanda Hogan APRN.CNP documented in this encounterOhio Valley Hospital08-31-2022 Miscellaneous Notes* Telephone Encounter - Grace [...] - 07/07/2022 12:58 PM EDT Pharmacist with [facility] calls to verify if Humalog and Lantus orders should say mL or pens. Current order is for each. Verbal order can be phoned to [phone]. Ava Kevin RN documented in this encounterOhio Valley Hospital08-31-2022 History of Present illness Narrative* Irlanda [...] mouth daily at bedtime. blood sugar diagnostic (FX BridgeTOUCH VERIO TEST STRIPS) test strip Test blood [...] Inject 26 units subcutaneously with meals. Insulin [place], Disposable, (BD ULTRA-FINE VINOD PEN NEEDLE) 32 [...] which included preparing to see the patient, [id number] patient care, completing clinical documentation, obtaining and/or reviewing separately obtained history, performing a medically appropriate examination, counseling and educating the pat ient/family/caregiver, and ordering medications, tests, or procedures. documented in this encounterOhio Valley Hospital08-31-2022 Miscellaneous Notes* Telephone Encounter - Jonathan Kim MA - 07/07/2022 9:28 AM EDT Scheduled with ENVIRONMENTAL SAFETY SPECIALIST Irlanda Hogan 11 AM. Jonathan Kim MA documented in this encounterOhio Valley Hospital08-18-2022 Miscellaneous Notes* Telephone Encounter - Jean [...] starting this new antibiotic? documented in this encounterOhio Valley Hospital08-02-2022 History of Present illness Narrative* Joann Flower, INSTRUMENTATION AND CONTROLS TECHNICIAN-SPRINKLING SYSTEM IRRIGATOR - 06/08/2022 11:30 AM EDT Trice Ercia Zambrano presents to the clinic 2 weeks [...] prn GRACIELA Roldan documented in this encounterOSU [facility] Nurse Surgical operation note* Sandra Lloyd RN - 05/21/2022 12:10 PM EDT Discharge instructions reviewed with patient, and daughter. Questions answered. Prescription of oxycodone picked up at OP pharmacy by . See AVS & education. 1213 pm Pt discharged to home with . Dc'd with AVS, ice pack and personal belongings. Escorted to vehicle via wc by WINNIE Edwards [facility]07-15-2022 Nurse Note* Sandra Lloyd RN - 05/21/2022 12:10 PM EDT Discharge instructions reviewed with patient, and daughter. Questions answered. Prescription of oxycodone picked up at OP pharmacy by . See AVS & education. 1213 pm Pt discharged to home with . Dc'd with AVS, ice pack and personal belongings. Escorted to vehicle via wc by WINNIE Edwards documented in this encounterOSU [facility]ron [facility]07-15-2022 Note* Nursing Notes - Grace Bass RN - 05/21/2022 11:56 AM EDT Verbal sign-out received from Dr. Louise [facility]07-15-2022 Miscellaneous Notes* Nursing Notes - Grace Bass RN - 05/21/2022 11:56 AM EDT Verbal sign-out received from Dr. Louise * Op Note - Roxana Moore MD - 05/21/2022 10:20 AM EDT Images from the original note were not included. OPERATIVE REPORT DATE: 05/21/2022 Surgeon: Roxana Moore MD Websphere Developer: Raisa Laureano MD Pre-operative Diagnosis: incisional hernia, [...] portions of the procedure. Roxana Moore MD digital media buyer Division of General and Gastrointestinal Surgery [facility] * Brief Op Note - Raisa Laureano MD - 05/21/2022 10:13 AM EDT Trice Zambrano ([id number]) PRE OPERATIVE DIAGNOSIS Incisional hernia [K43.2] POST OPERATIVE DIAGNOSIS Post-Op Diagnosis Codes: * Incisional hernia [K43.2] PROCEDURE PERFORMED Procedure(s) (LRB): REPAIR HERNIA VENTRAL ROBOTIC W/ MESH (Left) PRIMARY CLOSURE Yes INTRAOPERATIVE FINDINGS Incisional hernia sac excised. Successful intraperitoneal mesh placement SURGEON Surgeon(s) and Role: * Roaxna Moore MD - Primary ANESTHESIOLOGIST Anesthesiologist: Steve Louise MD Supervisor Research Kennel: NAVIN Frias SURGICAL STAFF Fashion Director Party Plan Sales: Leila Briseno RN Relief Scrub: David García [...] surgery with OR personnel. documented in this [facility]07-15-[facility] Note* Op Note - Roxana Moore MD - 05/21/2022 10:20 AM EDT Images from the original note were not included. OPERATIVE REPORT DATE: 05/21/2022 Surgeon: Roxana Moore MD Websphere Developer: Raisa Laureano MD Pre-operative Diagnosis: incisional hernia, [...] after infiltration of additional local anesthetic. The [employer] XI robot was then brought onto the [...] portions of the procedure. Roxana Moore MD digital media buyer Division of General and Gastrointestinal Surgery [facility]07-15-2022 Hospital Discharge instructions* Discharge Instructions* Raisa Laureano [...] not mow the lawn, use a vacuum leather cleaner, or do any other strenuous activities [...] visit you can be scheduled by contacting [phone]. Questions/Concerns/Contacts During normal business hours 8am-4pm: Call [phone]. After 4pm weekdays and on weekends: Call the [phone] for the on-call General Surgery Resident. A good option for most issues (especially after surgery) is to be seen at [facility] in [place] at [address] (1st floor, [address]), [place] [address]. This facilityis open seven days a week from 10am-9:30pm. Call [phone] for additional information. If you are unable to reach your doctor and it is a medical emergency, dial 911 or report to the nearest Emergency Department for evaluation. [facility] General Surgery [address] [facility] [address] [place], [place] [id number] [facility] General Surgery 11th Floor [address] [id number] [facility] [address] [place] [address] documented in this encounterOSU [facility]07-15-2022 Note* Brief Op Note - Raisa Laureano MD - 05/21/2022 10:13 AM EDT Trice Zambrano ([id number]) PRE OPERATIVE DIAGNOSIS Incisional hernia [K43.2] POST OPERATIVE DIAGNOSIS Post-Op Diagnosis Codes: * Incisional hernia [K43.2] PROCEDURE PERFORMED Procedure(s) (LRB): REPAIR HERNIA VENTRAL ROBOTIC W/ MESH (Left) PRIMARY CLOSURE Yes INTRAOPERATIVE FINDINGS Incisional hernia sac excised. Successful intraperitoneal mesh placement SURGEON Surgeon(s) and Role: * Roxana Moore MD - Primary ANESTHESIOLOGIST Anesthesiologist: Steve Louise MD Supervisor Research Kennel: NAVIN Frias SURGICAL STAFF Fashion Director Party Plan Sales: Leila Briseno RN Relief Scrub: David García RN Scrub Person: Grace Perea COMPLICATIONS None ESTIMATED BLOOD LOSS 10 ml SPECIMENS No specimen sent * No specimens in log * Raisa Laureano MD May 21, 2022 10:13 AM [facility]07-15-2022 Note* Nursing Notes - Karissa Almanzar RN - 05/21/2022 7:28 AM EDT ISBAR handoff procedure completed with anesthesia staff and surgery RN. Patient stable, no distress, transferred to surgery with OR personnel. [facility]07-15-2022 History and physical note* Roxana Moore MD [...] hernia repair with mesh Roxana Moore MD digital media buyer Division of General and Gastrointestinal Surgery [facility] Work Phone: 1(716) 585-969307-15-2022 History and physical note* Roxana Moore MD [...] N/A; Surgeon: Kecia Carvalho MD; [facility] ENDOSCOPY REVISION COLOSTOMY W/ REPAIR PARACOLOSTOMY HERNIA OPEN N/A 09/09/2021 Laterality: N/A; Surgeon: Kecia Carvalho MD; [facility] DIAG[facility]STIC N/A 08/17/2021 Laterality: [...] hernia repair with mesh Roxana Moore MD digital media buyer Division of General and Gastrointestinal Surgery [facility] documented in this encounterDayton [facility]07-08-2022 Miscellaneous Notes* Telephone Encounter - Chantel Vences Ma - 05/14/2022 10:04 AM EDT Pt notified of results via CARGOBR. Chantel Vences Ma * Telephone Encounter - [...] improve fatty liver disease. documented in this encounterOhio Valley Hospital07-01-2022 History of Present illness Narrative* RT [...] 2022 TIME: 3:40 PM documented in this encounterOhio Valley Hospital06-16-2022 History of Present illness Narrative* Jean [...] that HPV and pap were negative. Madeline RECRUITING ADMINISTRATOR. Up to date on COVID vaccine. Will [...] DM - Controlled E11.9 Insulin: Yes Insulin [place], Disposable, (BD ULTRA-FINE VINOD PEN NEEDLE) 32 [...] No history of dysuria, frequency or incontinence ADVERTISING REP: Negative for abnormal vaginal bleeding, abnormal vaginal [...] arise. 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 - CONSULT TO GYNECOLOGY Jean Claude Huitron MD documented in this encounterOhio Valley Hospital05-27-2022 Miscellaneous Notes* Telephone Encounter - Gabriela Llamas LPN - 04/02/2022 2:30 PM EDT Patient phones requesting refills as follows: Pending Prescriptions Disp Refills INSULIN LISPRO (U-100) 100 UNIT/ML SUBCUTANEOUS PEN 15 Pen 2 Sig: Inject 22 units subcutaneously with meals. TESSA: No AMIRAH 12/09/21 NOV 04/22/22 Please review and advise. Gabriela Llamas LPN documented in this encounterOhio Valley Hospital05-26-2022 History of Present illness Narrative* Roxana oMore MD - 04/01/2022 9:00 AM EDT Images [...] Midline; Surgeon: Jean Carlos Dumont MD; Location: [facility] MAIN OR HOME MEDICATIONS: Outpatient Medications Prior [...] Take 1 capsule by mouth daily. PEG [id number] (peg 3350 w/electrolytes) 236 g Recon Soln [...] -- Pre-op orders placed Roxana Moore MD digital media buyer Division of General and Gastrointestinal Surgery [facility] documented in this encounterDayton [facility]05-12-2022 History of Present illness Narrative* Kecia Carvalho [...] concerns. Kecia Carvalho MD documented in this encounterOS[facility]-27-[facility] Miscellaneous Notes* Telephone Encounter - Reena Crooks [...] you. Reena Crooks LPN documented in this encounterOhio Valley Hospital04-25-2022 Miscellaneous Notes* Telephone Encounter - Ambrosio Jarrett Ma - 03/01/2022 2:43 PM EDT Notified via CARGOBR. * Telephone Encounter - Jean Claude Huitron [...] Thank you. LANDEN Rey documented in this encounterOhio Valley Hospital07-27-2021 History of Present illness Narrative* Trace [...] Bailey MD 06/13/2021 documented in this encounterOSU [facility] HospitalEvaluation + Plan note No data available for this section [facility] Evaluation note* Diagnosis Follow up- Primary documented in this encounter [facility] note* Diagnosis Diabetes mellitus type II (HCC)- Primary documented in this encounter [facility] note* Diagnosis RLS (restless legs syndrome) Restless legs syndrome (RLS) documented in this encounter [facility] note* Diagnosis Colostomy present documented in this encounter [facility] note* Diagnosis Ventral hernia without obstruction or gangrene- Primary Ventral hernia, unspecified, without mention of obstruction or gangrene [facility]* Diagnosis Ventral hernia without obstruction or gangrene Ventral hernia, unspecified, without mention of obstruction or gangrene Incisional hernia Incisional hernia without mention of obstruction or gangrene documented [facility] [place]* Diagnosis Annual physical exam- Primary Routine general medical examination at a [facility] facility Pre-operative clearance Preoperative examination, unspecified Diabetes mellitus type II (HCC) Mixed hyperlipidemia Ventral hernia without obstruction or gangrene Ventral hernia, unspecified, without mention of obstruction or gangrene Liver lesion Other specified disorders of liver Obesity (BMI 30-39.9) Obesity, unspecified Screening for cervical cancer Screening for malignant neoplasm of the cervix documented in this encounter [facility] note* Diagnosis Liver lesion Other specified disorders of liver documented in this encounter [facility] note* Diagnosis Ventral hernia without obstruction or gangrene Ventral hernia, unspecified, without mention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 [address] PCP - General Family Medicine 03/26/20 PodlogarIrlanda APRN.SPRINKLING SYSTEM IRRIGATOR [address] [place] [address] Client Consultant Family Medicine 10/13/24 Mary Ellen Root APRN.SPRINKLING SYSTEM IRRIGATOR [address] [place], [place] [id number] Client Consultant Family [facility] 01/28/25 03/24/25 Source Comments (unrecognize d section and content) In the event this informatio n is protected by the Federal Confidentiality of Alcohol and Drug Abuse Patient Records regulations: The Federal rules restrict any use of the information to criminally investigate or prosecute any alcohol or drug abuse patient.[facility] the event this information is protected by the Federal Confidentiality of Alcohol and Drug Abuse Patient Records regulations: The Federal rules restrict any use of the information to criminally investigate or prosecute any alcohol or drug abuse patient.[facility] HospitalIn the event this information is protected by the Federal Confidentiality of Alcohol and Drug Abuse Patient Records regulations: The Federal rules restrict any use of the information to criminally investigate or prosecute any alcohol or drug abuse patient.[facility] HospitalIn the event this information is protected by the Federal Confidentiality of Alcohol and Drug Abuse Patient Records regulations: The Federal rules restrict any use of the information to criminally investigate or prosecute any alcohol or drug abuse patient.[facility] HospitalIn the event this information is protected by the Federal Confidentiality of Alcohol and Drug Abuse Patient Records regulations: The Federal rules restrict any use of the information to criminally investigate or prosecute any alcohol or drug abuse patient.[facility] HospitalIn the event this information is protected by the Federal Confidentiality of Alcohol and Drug Abuse Patient Records regulations: The Federal rules restrict any use of the information to criminally investigate or prosecute any alcohol or drug abuse patient.[facility] HospitalIn the event this information is protected by the Federal Confidentiality of Alcohol and Drug Abuse Patient Records regulations: The Federal rules restrict any use of the information to criminally investigate or prosecute any alcohol or drug abuse patient.[facility] HospitalIn the event this information is protected by the Federal Confidentiality of Alcohol and Drug Abuse Patient Records regulations: The Federal rules restrict any use of the information to criminally investigate or prosecute any alcohol or drug abuse patient.[facility] HospitalIn the event this information is protected by the Federal Confidentiality of Alcohol and Drug Abuse Patient Records regulations: The Federal rules restrict any use of the information to criminally investigate or prosecute any alcohol or drug abuse patient.[facility] HospitalIn the event this information is protected by the Federal Confidentiality of Alcohol and Drug Abuse Patient Records regulations: The Federal rules restrict any use of the information to criminally investigate or prosecute any alcohol or drug abuse patient.[facility] HospitalIn the event this information is protected by the Federal Confidentiality of Alcohol and Drug Abuse Patient Records regulations: The Federal rules restrict any use of the information to criminally investigate or prosecute any alcohol or drug abuse patient.[facility] HospitalIn the event this information is protected by the Federal Confidentiality of Alcohol and Drug Abuse Patient Records regulations: The Federal rules restrict any use of the information to criminally investigate or prosecute any alcohol or drug abuse patient.[facility] HospitalIn the event this information is protected by the Federal Confidentiality of Alcohol and Drug Abuse Patient Records regulations: The Federal rules restrict any use of the information to criminally investigate or prosecute any alcohol or drug abuse patient.[facility]In the event this information is protected by the Federal Confidentiality of Alcohol and Drug Abuse Patient Records regulations: The Federal rules restrict any use of the information to criminally investigate or prosecute any alcohol or drug abuse patient.[facility] HospitalIn the event this information is protected by the Federal Confidentiality of Alcohol and Drug Abuse Patient Records regulations: The Federal rules restrict any use of the information to criminally investigate or prosecute any alcohol or drug abuse patient.[facility]In the event this information is protected by the Federal Confidentiality of Alcohol and Drug Abuse Patient Records regulations: The Federal rules restrict any use of the information to criminally investigate or prosecute any alcohol or drug abuse patient.[facility] HospitalIn the event this information is protected by the Federal Confidentiality of Alcohol and Drug Abuse Patient Records regulations: The Federal rules restrict any use of the information to criminally investigate or prosecute any alcohol or drug abuse patient.[facility] HospitalIn the event this information is protected by the Federal Confidentiality of Alcohol and Drug Abuse Patient Records regulations: The Federal rules restrict any use of the information to criminally investigate or prosecute any alcohol or drug abuse patient.[facility] HospitalIn the event this information is protected by the Federal Confidentiality of Alcohol and Drug Abuse Patient Records regulations: The Federal rules restrict any use of the information to criminally investigate or prosecute any alcohol or drug abuse patient.[facility] HospitalIn the event this information is protected by the Federal Confidentiality of Alcohol and Drug Abuse Patient Records regulations: The Federal rules restrict any use of the information to criminally investigate or prosecute any alcohol or drug abuse patient.[facility] HospitalIn the event this information is protected by the Federal Confidentiality of Alcohol and Drug Abuse Patient Records regulations: The Federal rules restrict any use of the information to criminally investigate or prosecute any alcohol or drug abuse patient.[facility] HospitalIn the event this information is protected by the Federal Confidentiality of Alcohol and Drug Abuse Patient Records regulations: The Federal rules restrict any use of the information to criminally investigate or prosecute any alcohol or drug abuse patient.[facility] HospitalIn the event this information is protected by the Federal Confidentiality of Alcohol and Drug Abuse Patient Records regulations: The Federal rules restrict any use of the information to criminally investigate or prosecute any alcohol or drug abuse patient.[facility] HospitalIn the event this information is protected by the Federal Confidentiality of Alcohol and Drug Abuse Patient Records regulations: The Federal rules restrict any use of the information to criminally investigate or prosecute any alcohol or drug abuse patient.[facility] the event this information is protected by the Federal Confidentiality of Alcohol and Drug Abuse Patient Records regulations: The Federal rules restrict any use of the information to criminally investigate or prosecute any alcohol or drug abuse patient.[facility] HospitalIn the event this information is protected by the Federal Confidentiality of Alcohol and Drug Abuse Patient Records regulations: The Federal rules restrict any use of the information to criminally investigate or prosecute any alcohol or drug abuse patient.[facility] HospitalIn the event this information is protected by the Federal Confidentiality of Alcohol and Drug Abuse Patient Records regulations: The Federal rules restrict any use of the information to criminally investigate or prosecute any alcohol or drug abuse patient.[facility] HospitalIn the event this information is protected by the Federal Confidentiality of Alcohol and Drug Abuse Patient Records regulations: The Federal rules restrict any use of the information to criminally investigate or prosecute any alcohol or drug abuse patient.[facility] HospitalIn the event this information is protected by the Federal Confidentiality of Alcohol and Drug Abuse Patient Records regulations: The Federal rules restrict any use of the information to criminally investigate or prosecute any alcohol or drug abuse patient.[facility] HospitalIn the event this information is protected by the Federal Confidentiality of Alcohol and Drug Abuse Patient Records regulations: The Federal rules restrict any use of the information to criminally investigate or prosecute any alcohol or drug abuse patient.[facility] HospitalIn the event this information is protected by the Federal Confidentiality of Alcohol and Drug Abuse Patient Records regulations: The Federal rules restrict any use of the information to criminally investigate or prosecute any alcohol or drug abuse patient.[facility] HospitalIn the event this information is protected by the Federal Confidentiality of Alcohol and Drug Abuse Patient Records regulations: The Federal rules restrict any use of the information to criminally investigate or prosecute any alcohol or drug abuse patient.[facility] HospitalIn the event this information is protected by the Federal Confidentiality of Alcohol and Drug Abuse Patient Records regulations: The Federal rules restrict any use of the information to criminally investigate or prosecute any alcohol or drug abuse patient.[facility] HospitalIn the event this information is protected by the Federal Confidentiality of Alcohol and Drug Abuse Patient Records regulations: The Federal rules restrict any use of the information to criminally investigate or prosecute any alcohol or drug abuse patient.[facility] HospitalIn the event this information is protected by the Federal Confidentiality of Alcohol and Drug Abuse Patient Records regulations: The Federal rules restrict any use of the information to criminally investigate or prosecute any alcohol or drug abuse patient.[facility] HospitalIn the event this information is protected by the Federal Confidentiality of Alcohol and Drug Abuse Patient Records regulations: The Federal rules restrict any use of the information to criminally investigate or prosecute any alcohol or drug abuse patient.[facility] HospitalIn the event this information is protected by the Federal Confidentiality of Alcohol and Drug Abuse Patient Records regulations: The Federal rules restrict any use of the information to criminally investigate or prosecute any alcohol or drug abuse patient.[facility] HospitalIn the event this information is protected by the Federal Confidentiality of Alcohol and Drug Abuse Patient Records regulations: The Federal rules restrict any use of the information to criminally investigate or prosecute any alcohol or drug abuse patient.[facility] HospitalIn the event this information is protected by the Federal Confidentiality of Alcohol and Drug Abuse Patient Records regulations: The Federal rules restrict any use of the information to criminally investigate or prosecute any alcohol or drug abuse patient.[facility] HospitalIn the event this information is protected by the Federal Confidentiality of Alcohol and Drug Abuse Patient Records regulations: The Federal rules restrict any use of the information to criminally investigate or prosecute any alcohol or drug abuse patient.[facility] HospitalIn the event this information is protected by the Federal Confidentiality of Alcohol and Drug Abuse Patient Records regulations: The Federal rules restrict any use of the information to criminally investigate or prosecute any alcohol or drug abuse patient.[facility] HospitalIn the event this information is protected by the Federal Confidentiality of Alcohol and Drug Abuse Patient Records regulations: The Federal rules restrict any use of the information to criminally investigate or prosecute any alcohol or drug abuse patient.[facility] HospitalIn the event this information is protected by the Federal Confidentiality of Alcohol and Drug Abuse Patient Records regulations: The Federal rules restrict any use of the information to criminally investigate or prosecute any alcohol or drug abuse patient.[facility]In the event this information is protected by the Federal Confidentiality of Alcohol and Drug Abuse Patient Records regulations: The Federal rules restrict any use of the information to criminally investigate or prosecute any alcohol or drug abuse patient.[facility] HospitalIn the event this information is protected by the Federal Confidentiality of Alcohol and Drug Abuse Patient Records regulations: The Federal rules restrict any use of the information to criminally investigate or prosecute any alcohol or drug abuse patient.[facility] HospitalIn the event this information is protected by the Federal Confidentiality of Alcohol and Drug Abuse Patient Records regulations: The Federal rules restrict any use of the information to criminally investigate or prosecute any alcohol or drug abuse patient.[facility]In the event this information is protected by the Federal Confidentiality of Alcohol and Drug Abuse Patient Records regulations: The Federal rules restrict any use of the information to criminally investigate or prosecute any alcohol or drug abuse patient.[facility]In the event this information is protected by the Federal Confidentiality of Alcohol and Drug Abuse Patient Records regulations: The Federal rules restrict any use of the information to criminally investigate or prosecute any alcohol or drug abuse patient.[facility] HospitalIn the event this information is protected by the Federal Confidentiality of Alcohol and Drug Abuse Patient Records regulations: The Federal rules restrict any use of the information to criminally investigate or prosecute any alcohol or drug abuse patient.[facility]In the event this information is protected by the Federal Confidentiality of Alcohol and Drug Abuse Patient Records regulations: The Federal rules restrict any use of the information to criminally investigate or prosecute any alcohol or drug abuse patient.[facility] HospitalIn the event this information is protected by the Federal Confidentiality of Alcohol and Drug Abuse Patient Records regulations: The Federal rules restrict any use of the information to criminally investigate or prosecute any alcohol or drug abuse patient.[facility] HospitalIn the event this information is protected by the Federal Confidentiality of Alcohol and Drug Abuse Patient Records regulations: The Federal rules restrict any use of the information to criminally investigate or prosecute any alcohol or drug abuse patient.[facility] HospitalIn the event this information is protected by the Federal Confidentiality of Alcohol and Drug Abuse Patient Records regulations: The Federal rules restrict any use of the information to criminally investigate or prosecute any alcohol or drug abuse patient.[facility]In the event this information is protected by the Federal Confidentiality of Alcohol and Drug Abuse Patient Records regulations: The Federal rules restrict any use of the information to criminally investigate or prosecute any alcohol or drug abuse patient.[facility] HospitalIn the event this information is protected by the Federal Confidentiality of Alcohol and Drug Abuse Patient Records regulations: The Federal rules restrict any use of the information to criminally investigate or prosecute any alcohol or drug abuse patient.[facility] HospitalIn the event this information is protected by the Federal Confidentiality of Alcohol and Drug Abuse Patient Records regulations: The Federal rules restrict any use of the information to criminally investigate or prosecute any alcohol or drug abuse patient.[facility] HospitalIn the event this information is protected by the Federal Confidentiality of Alcohol and Drug Abuse Patient Records regulations: The Federal rules restrict any use of the information to criminally investigate or prosecute any alcohol or drug abuse patient.[facility] HospitalIn the event this information is protected by the Federal Confidentiality of Alcohol and Drug Abuse Patient Records regulations: The Federal rules restrict any use of the information to criminally investigate or prosecute any alcohol or drug abuse patient.[facility] HospitalIn the event this information is protected by the Federal Confidentiality of Alcohol and Drug Abuse Patient Records regulations: The Federal rules restrict any use of the information to criminally investigate or prosecute any alcohol or drug abuse patient.[facility] Scheduled Active and Recently Administ ered [...] 2 g, Intravenous, Administer over 30 Minutes, 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 [employer] [facility]. provides no warranty or guarantee of the accuracy or completeness of information in this document.
--- NOTE | 2025-08-11 19:08 | HP.PCM.HOS_ITS ---
HPI - General General Date of Admission: 08/11/25 Date of Service: 08/11/25 Chief Complaint: Recurrent perineal infection HPI Narrative TRICE ZAMBRANO, is a 45 F who presented to [facility] ED on 08/11/2025 with concern for recurrent perineal infection. Medical history is significant for left perineal cellulitis with necrotizing fasciitis to the buttocks back in April 2021. She had an extensive debridement at that time as well as creation of a colostomy, which has since been reversed. More recently she was hospitalized here in September 2024 again with a left perineal/buttock infection. Areas of fibrosis in the perianal location were seen on CT imaging but there was no evidence of necrotizing fasciitis or drainable abscess. Surgery followed and noted there is no need for surgical intervention. ID followed and patient was treated with vancomycin and Zosyn while inpatient and then discharged on 1 week of p.o. doxycycline and Augmentin. Patient reports that she recovered well at that time. She notes today that yesterday she felt a small tender lump in the right perineal area that was pea-sized. Today it worsened significantly and was golf ball sized and was more tender, so she came in for further evaluation. In the ED she had sinus tachycardia to the 100s and was hypertensive to the 140s to 150s systolic but she was otherwise afebrile and stable on room air at rest. CT abdomen pelvis showed no perirectal abscess or other concerning findings. Labs notable for WBC count 10, sodium 129, chloride 94, glucose 527. She was given 2 L of IV fluids and IV antibiotics, and hospitalist was contacted for admission. I saw the patient at bedside in the ED. Patient was laying on her side in bed and was mildly uncomfortable due to ongoing nausea and perineal pain/discomfort. States that she has been vigilant with hygiene measures with using the restroom since her last episode in September. She also states that she feels that her blood sugars have been fairly well-controlled recently. She did notice that her blood sugars seem to spike on Tuesday and she had decreased appetite, and that was followed by development of infection in the perineal area. She notes that the pain and nausea medications have been moderately helpful for her in the ED. She denies any other acute concerns currently. Will be admitted for further management. [facility] Medical History Abscess or cellulitis of perineum Abscess of deep perineal space Physical exam, pre-employment History of necrotising fasciitis Current use of insulin Diabetes Home Medications ?Medication ?Instructions ?Recorded ?Last Taken ?Type insulin glargine 100 unit/mL (3 66 unit subcut BID patrick betes 04/23/21 09/16/24 History mL) subcutaneous pen (Basaglar KwikPen U-100 Insulin) insulin lispro 100 unit/mL 44 unit subcut TID 04/23/21 09/16/24 History subcutaneous pen (Humalog KwikPen (U-100) Insulin) atorvastatin 10 mg tablet 10 mg PO QHS 09/14/21 History lisinopril 5 mg tablet 5 mg PO DAILY 09/14/2109/15 History ropinirole 0.5 mg tablet 1.5 mg PO QHS 09/16/2409/15 History insulin degludec 100 unit/mL (3 64 unit subcut BID 03/31 Unknown History mL) subcutaneous pen (Tresiba FlexTouch U-100 insulin) Allergy/AdvReac Type Severity Reaction Status Date / Time metformin AdvReac Nausea Verified 08/11/25 13:16 Family History Other Breast cancer Diabetes Surgical History History of cholecystectomy History of colostomy reversal History of colostomy S/P tubal ligation H/O: Social History adopted: No household members: spouse and children housing: house number of children: 2 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 pets and animals: No leisure activities: art, games and volunteer work history of recent travel: No sexually active: Yes Smoking Status: Never smoker ROS Constitutional Constitutional: Reports chills and fatigue; Denies fever(s) or weakness Cardiovascular Cardiovascular: Denies chest pain Respiratory/Chest Respiratory/Chest: Denies shortness of breath at rest Gastrointestinal Gastrointestinal: Reports nausea and other Details: Perineal discomfort ; Denies abdominal pain, constipation, diarrhea or vomiting Neurologic Neurologic: Denies dizziness, focal weakness or headache(s) Vital Signs Vital Signs Vital Signs: 08/11/25 13:16 08/11/25 14:18 08/11/25 15:00 Temperature 98.8 F 98.5 F 98.6 F Temperature Source Oral Oral Oral Pulse Rate 125 H 109 H 103 H Respiratory Rate 22 H 18 18 Blood Pressure 180/98 H 165/89 H 157/88 H Blood Pressure Mean 125 114 111 Pulse Ox 99 98 99 Oxygen Delivery Method Room Air Room Air Room Air 08/11/25 16:00 08/11/25 17:00 08/11/25 18:00 Temperature 98.7 F 98.6 F 98.6 F Temperature Source Oral Oral Oral Pulse Rate 103 H 101 H 101 H Respiratory Rate 16 16 18 Blood Pressure 107/77 146/62 H 128/79 H Blood Pressure Mean 87 90 95 Pulse Ox 99 98 99 Oxygen Delivery Method Room Air Room Air Room Air 08/11/25 18:13 Temperature 98.6 F Temperature Source Pulse Rate 100 Respiratory Rate 14 Blood Pressure 128/78 H Blood Pressure Mean 94 Pulse Ox 99 Oxygen Delivery Method Weight Weight: 105.6 kg Body Mass Index (BMI) 35.4 Physical Exam Const alert, oriented x3 and no apparent distress Constitutional Narrative: Pleasant middle-age female, class II obesity, mildly fatigued and mildly uncomfortable appearing due to ongoing pain and nausea, otherwise laying on her side in bed, answering questions appropriately. General Appearance: cooperative and comfortable HEENT normocephalic, head/scalp atraumatic, hearing grossly normal bilaterally, nasal mucous membranes and turbinates normal and moist oral mucous membranes Eyes PERRL, EOMs intact bilaterally and conjunctivae normal Neck full ROM Chest inspection of chest normal Resp normal respiratory effort, normal air movement, no use of accessory muscles and clear to auscultation bilaterally Cardio regular rate, regular rhythm, no murmurs and peripheral pulses 2+ throughout GI normal to inspection, nondistended, normoactive bowel sounds, soft to palpation, non-tender and non-distended Back/Spine normal ROM Extremity normal to inspection, full ROM and no pedal edema Skin Skin Narrative: Tender area over the right medial perineal area with erythema and induration noted. Minimal fluctuance and no active drainage or discharge. Psych mental status grossly normal Results Lab / Micro Data 08/11/25 13:40 08/11/25 13:40 Labs: Laboratory Results - last 24 hr 08/11/25 13:40: WBC 10.5, RBC 4.83, Hgb 14.0, Hct 39.9, MCV 82.6, MCH 29.0, MCHC 35.1, RDW Std Deviation 38.5, RDW Coeff of Meet 12.8, Plt Count 169, MPV 11.7, Immature Gran % (Auto) 0.500, Neut % (Auto) 82.3 H, Lymph % (Auto) 10.3 L, [place] % (Auto) 6.3, Eos % (Auto) 0.3, Baso % (Auto) 0.3, Absolute Neuts (auto) 8.7 H, Absolute Lymphs (auto) 1.08, Nucleated RBC % 0, PT 12.2, INR 0.9, APTT 24.1, S odium 129 L, Potassium 4.2, Chloride 94 L, Carbon Dioxide 16.4 L, Anion Gap 19 H , BUN 14, Creatinine 0.73, Estim Creat Clear Calc 123.80, Est GFR (MDRD) Non-Af 103, BUN/Creatinine Ratio 19.2, Glucose 527 H*, Hemoglobin A1c 13.8 H, Lactic Acid 1.1, Calcium 9.0, C-React Prot Ext Range 112.00 H, b-Hydroxybutyric mmol/L 2.6 H 08/11/25 14:30: Serum , Qual NEGATIVE 08/11/25 15:20: Urine Color Straw, Urine Clarity Clear, Urine pH 6.0, Ur Specific [place] 1.015, Urine Protein 30 H, Urine Glucose (UA) 1000 H, Urine Ketones 150 A*, Urine Occult Blood 50 H, Urine Nitrite Negative, Urine Bilirubin Negative, Urine Urobilinogen Normal, Ur Leukocyte Esterase 100 H, Urine RBC 5-10 SEEN, Urine WBC 10-25 SEEN, Ur Squamous Epith Cells 0-5 SEEN, Urine Bacteria 0 SEEN, Urine Mucus 0 SEEN 08/11/25 17:32: POC Glucose 373 H ABG Data ABG results: ABG 08/11/25 16:30 Specimen Type KISHAN Sample Site [id number] VBG pH 7.45 H VBG pO2 32 VBG HCO3 22 VBG Total CO2 23 VBG O2 Sat (Calc) 67 VBG Base Excess -2 L POC Mix VBG pCO2 Pt Tmp 31.8 L O2 Delivery Device Not entered Imaging Radiology Impression Abdomen/Pelvis CT 08/11/25 14:10 IMPRESSION: No perirectal abscess noted Reading [facility] Assessment & Plan Assessment/Plan (1) Cellulitis of perineum: PLAN: Plan Patient is a 45-year-old female who presented to [facility] ED on 08/11/2025 with recurrent perineal infection. 1. Recurrent perineal infection, history of necrotizing fasciitis in perineal area ? Admit under inpatient status to [facility]. History of necrotizing fasciitis in the left perineal area in 2020 requiring extensive debridement and creation of colostomy (now reversed). Hospitalized in September 2024 with left perineal infection; no surgical needs and patient improved well on antibiotics. Presents now with area of tenderness and erythema in the right perineal area. CT abdomen pelvis with no soft tissue swelling, abscess or other concerning findings. LRINEC score of 7 (elevated CRP of 112, Na < 135, glucose > 180) but importantly patient has severely elevated glucose of 527 and pseudohyponatremia with sodium 129 as below. Given no concerning findings on imaging, afebrile, normal WBC count, normal hemoglobin and normal creatinine, infection is most consistent with right perineal cellulitis with low concern for necrotizing fasciitis. Will treat with IV vancomycin and Zosyn for now. Will hold on surgery or ID consults at this time but can consider as needed. Pain control with as needed Tylenol, oxycodone and IV Dilaudid. 2. Poorly controlled type 2 diabetes mellitus with severe hyperglycemia ? Glucose 527 on admit. A1c 13.8%. Home regimen of insulin degludec 64 units twice daily and Humalog 44 units with meals. Patient reports compliance with home insulin and reports that her sugars are typically in the high 100s to 200s. Notably anion gap 19, beta-hydroxybutyrate 2.6 and 150 ketones in the urine, but pH 7.45 on blood gas; suspect these findings are multifactorial due to starvation ketosis and elevated sugars. Given 2 L of IV fluids and 10 units of Humalog in the ED. Will give another 1 L of IV fluids over several hours tonight. Will order Lantus 55 units twice daily and Humalog 20 units with meals plus high dose of sliding scale insulin, adjust as needed. Follow-up a.m. BMP. Her diabetes is managed by her PCP; will need close outpatient follow-up on discharge and patient would seem to be a good candidate to establish with endocrinology for improvement in diabetes control. 3. Pseudohyponatremia ? Sodium 129 on admit, but corrected sodium of 136 in setting of severe hyperglycemia as above. 4. Hypertension/hyperlipidemia ? Hypertensive to the 150s systolic in the ED. Continue home lisinopril and atorvastatin. 5. Restless leg syndrome ? Continue home ropinirole at night. 6. Class II obesity ? BMI 35.4 on admit. Complicates hospital course and care. Encouraged lifestyle modifications. DVT prophylaxis: Lovenox CODE STATUS: Full code, verified Expected disposition: Home, TBD Total clinical time spent by myself addressing the patient's medical issues, reviewing all the data, and collaborating with patient's care team: 81 minutes. Charges/Coding Visit Charges Inpatient E&M: 13661 Init Hosp L3
[2025-08-11] MEDS: Lactated Ringers 1,000 ML 150 ML IV (20:30)
[2025-08-11] MEDS: HYDROmorphone 0.5 MG/0.5 ML SYRINGE IV (20:43)
[2025-08-11] MEDS: Senna Tablet 1 TABLET PO (21:04)
[2025-08-11] MEDS: Insulin Glargine-YFGN 100 UNIT/ML Pen 55 UNIT SC (21:10)
--- NOTE | 2025-08-11 21:40 | PCM.RX.CS ---
Consult Antibiotic Management Pharmacy has been consulted to manage selected antibiotic: Vancomycin Type of Intervention Type of Consult: New start Labs Labs: Sodium 129 mmol/L (133-145) L 08/11/25 13:40 Potassium 4.2 mmol/L (3.3-5.1) 08/11/25 13:40 Chloride 94 mmol/L (98-108) L 08/11/25 13:40 Carbon Dioxide 16.4 mmol/L (21.0-32.0) L 08/11/25 13:40 Anion Gap 19 (5-15) H 08/11/25 13:40 BUN 14 mg/dL (4-19) 08/11/25 13:40 Creatinine 0.73 mg/dL (0.70-1.20) 08/11/25 13:40 Est GFR (MDRD) Non-Af 103 (>60) 08/11/25 13:40 BUN/Creatinine Ratio 19.2 RATIO (10-20) 08/11/25 13:40 Glucose 527 mg/dL (70-99) H* 08/11/25 13:40 Dosing Weight Weight used for dosin.6 kg Estimated Creatinine Clearance Estimated Creatinine Clearance: 123.8 Goal Trough Goal Trough: 15-20 mcg/mL Pharmacy Plan for Drug Dosing Pharmacy Plan for Drug Dosing: Pharmacy Service will continue to monitor and adjust dosing as required. ER DOSE 2GM GIVEN 08/11 @ 1632. START 1250MG Q8H AND DRAW TROUGH PRIOR TO 4TH DOSE Follow-Up Labs Follow-Up Labs: Trough: Vancomycin Date/Time Labs Ordered Labs to be done on [date and time ordered]: 08/12 @ 1600
[2025-08-11] MEDS: 0.9% Normal Saline (1000mL) 1,000 ML 150 ML IV (21:57)
[2025-08-11] MEDS: Piperacil/Tazobactam 3.375 GM in 0.9% Normal Saline (50mL MB+) 50 ML IV (21:57)
[2025-08-12] MEDS: Vancomycin HCl 1,250 MG in 0.9% Normal Saline (250mL Bag) 250 ML 167 MG IV ×3 (02:04→17:41)
[2025-08-12 02:05] VITALS: BP 119/73; PULSE 96; RESP 16; TEMP 37.1; O2SAT 95
[2025-08-12] MEDS: HYDROmorphone 0.5 MG/0.5 ML SYRINGE IV ×3 (02:18→17:41)
[2025-08-12] MEDS: proMETHazine 25 MG/ML Syringe 6.25 MG IM (02:18)
[2025-08-12] MEDS: Piperacil/Tazobactam 3.375 GM in 0.9% Normal Saline (50mL MB+) 50 ML IV ×3 (05:00→22:00)
[2025-08-12 06:50] LABS: Hematocrit 37.1 % (37-47); Hemoglobin 12.3 g/dL (12.0-15.0); Mean Corp Hgb Conc 33.2 g/dL (32-36); Mean Corpuscular Volume 87.7 fL (81-99); Mean Platelet Vol. 11.7 fl (6.2-12.0); Platelet Count 160 K/mm3 (150-450); RBC Distribution Width CV 13.2 % (11.6-14.6); RBC Distribution Width SD 41.9 fl (35.1-43.9); Red Blood Count 4.23 M/mm3 (4.2-5.4); White Blood Count 10.0 K/mm3 (4.4-11.0)
[2025-08-12 07:21] LABS: Anion Gap 15 (5-15); BUN 11 mg/dL (4-19); BUN/Creat Ratio 15.7 RATIO (10-20); Calcium,Total 8.1 mg/dL (7.6-11.0); Carbon Dioxide 14.3 mmol/L (21.0-32.0); Chloride 105 mmol/L (98-108); Estimated Creatinine Clearance 130.97 ml/min (50-250); Glucose 283 mg/dL (70-99); Potassium 3.9 mmol/L (3.3-5.1)
[2025-08-12 07:42] VITALS: O2SAT 95
--- NOTE | 2025-08-12 08:09 | PCM.PN.HOSP ---
Reason for Visit Chief Complaint: Recurrent perineal infection Subjective Subjective Patient still having significant pain. Nausea and vomiting maybe a little bit better. States she has had this several times previously. Is on a considerable amount of of insulin. States her primary care has managed her diabetes but she has considered for some time following up with endocrinology. We did discuss referral at discharge and she is amenable to this. We did discuss that controlling her blood sugars better would likely prevent recurrent infection. We did discuss after evaluation of the abscess that she likely needs I&D and will consult general surgery. Patient is amenable to this and states she has needed intervention previously. Objective Data Objective Data Vital Signs: Vital Signs Temp Pulse Resp BP Pulse Ox O2 Del Method 98.8 F 96 16 119/73 95 Room Air 08/12/25 02:05 08/12/25 02:05 08/12/25 02:05 08/12/25 02:05 08/12/25 07:42 08/12/25 07:42 Oxygen Delivery Method Room Air Weight: 105.596 kg Body Mass Index (BMI) 35.4 Intake & Output: Intake and Output for Last 24 Hours 08/10/25 08/11/25 08/12/25 23:59 23:59 23:59 Intake Total 3327.5 / 3327.5 192 1925 Balance 3327.5 / 3327.5 1924 Lab / Micro Data 08/12/25 06:10 08/12/25 06:10 Labs: Laboratory Results - last 24 hr 08/11/25 13:40: WBC 10.5, RBC 4.83, Hgb 14.0, Hct 39.9, MCV 82.6, MCH 29.0, MCHC 35.1, RDW Std Deviation 38.5, RDW Coeff of Meet 12.8, Plt Count 169, MPV 11.7, Immature Gran % (Auto) 0.500, Neut % (Auto) 82.3 H, Lymph % (Auto) 10.3 L, [place] % (Auto) 6.3, Eos % (Auto) 0.3, Baso % (Auto) 0.3, Absolute Neuts (auto) 8.7 H, Absolute Lymphs (auto) 1.08, Nucleated RBC % 0, PT 12.2, INR 0.9, APTT 24.1, Sodium 129 L, Potassium 4.2, Chloride 94 L, Carbon Dioxide 16.4 L, Anion Gap 19 H, BUN 14, Creatinine 0.73, Estim Creat Clear Calc 123.80, Est GFR (MDRD) Non-Af 103, BUN/Creatinine Ratio 19.2, Glucose 527 H*, Hemoglobin A1c 13.8 H, Lactic Acid 1.1, Calcium 9.0, C-React Prot Ext Range 112.00 H, b-Hydroxybutyric mmol/L 2.6 H 08/11/25 14:30: Serum , Qual NEGATIVE 08/11/25 15:20: Urine Color Straw, Urine Clarity Clear, Urine pH 6.0, Ur Specific [place] 1.015, Urine Protein 30 H, Urine Glucose (UA) 1000 H, Urine Ketones 150 A*, Urine Occult Blood 50 H, Urine Nitrite Negative, Urine Bilirubin Negative, Urine Urobilinogen Normal, Ur Leukocyte Esterase 100 H, Urine RBC 5-10 SEEN, Urine WBC 10-25 SEEN, Ur Squamous Epith Cells 0-5 SEEN, Urine Bacteria 0 SEEN, Urine Mucus 0 SEEN 08/11/25 17:32: POC Glucose 373 H 08/11/25 20:33: POC Glucose 318 H 08/12/25 05:04: POC Glucose 293 H 08/12/25 06:10: WBC 10.0, RBC 4.23, Hgb 12.3, Hct 37.1, MCV 87.7 D, MCH 29.1, MCHC 33.2 D, RDW Std Deviation 41.9, RDW Coeff of Meet 13.2, Plt Count 160, MPV 11.7, Sodium 134, Potassium 3.9, Chloride 105, Carbon Dioxide 14.3 L, Anion Gap 15, BUN 11, Creatinine 0.69 L, Estim Creat Clear Calc 130.97, Est GFR (MDRD) Non-Af 109, BUN/Creatinine Ratio 15.7, Glucose 283 H, Calcium 8.1 ABG Data ABG results: ABG 08/11/25 16:30 Specimen Type KISHAN Sample Site [id number] VBG pH 7.45 H VBG pO2 32 VBG HCO3 22 VBG Total CO2 23 VBG O2 Sat (Calc) 67 VBG Base Excess -2 L POC Mix VBG pCO2 Pt Tmp 31.8 L O2 Delivery Device Not entered Radiography Diagnostic Testing: Radiology Impression Abdomen/Pelvis CT 10/05/25 14:10 IMPRESSION: No perirectal abscess noted Reading Location: [facility] Physical Exam Const alert, oriented x3 and no apparent distress; Negative for average body habitus or healthy appearing Constitutional Narrative: Obese, middle-aged, white female, sitting up in bed, does not appear toxic but looks slightly uncomfortable, very pleasant HEENT head/scalp atraumatic and moist oral mucous membranes Head and Scalp: normocephalic Resp normal respiratory effort, no retractions, no use of accessory muscles and clear to auscultation bilaterally Auscultation: Negative for crackles, rhonchi or wheezes Cardio regular rate, regular rhythm, S1 normal heart sound, S2 normal heart sound, no murmurs, no rub, no gallops and no clicks GI normal to inspection, nondistended, normoactive bowel sounds, soft to palpation and non-tender Extremity no clubbing, cyanosis or edema Extremity Narrative: Pedal and radial pulses are 2+ Skin Skin Narrative: Patient with a dime size to nickel size lesion on her right thigh that appears to have a pustulant head on it. Significant induration surrounding the area along with erythema and severe tenderness Neuro moves all extremities and no focal motor deficits Speech: speech normal Psych affect normal Psych Narrative: Very pleasant, interacts appropriately Assessment & Plan Assessment/Plan (1) Abscess: (2) Low serum bicarbonate: (3) Elevated beta-hydroxybutyrate: PLAN: Plan Cellulitis/abscess of the perineum - Required I&D previously which was polymicrobial including Enterococcus faecalis, E. coli, staph epi, Prevotella, and anaerobic cocci - Will continue vancomycin and Zosyn as ordered - Culture from I&D requested - Abscess noted will consult general surgery - Continue with as needed p.o. and IV pain medication Low serum bicarb - Patient does not have an elevated anion gap - Beta-hydroxybutyrate was slightly elevated however the patient had not eaten in the last 24 hours due to nausea and vomiting and pain - Symptoms are not consistent with DKA and VBG drawn on admission was alkalotic - Repeat BMP is pending Elevated beta hydroxybutyrate - Does not seem consistent with diabetic ketoacidosis as pH was not low - Suspect starvation ketosis as patient had not been eating well - Repeat BMP is pending - May reassess in a.m. now that p.o. intake has improved - Blood sugars are much improved DM-uncontrolled - A1c is 13.8 - Patient states her fastings are about 120-130 at home but they get more uncontrolled the day goes on - Continue subcu insulin but increase basal insulin and bolus insulin - continue SSI - Highly suspect that her recurrent perineal infections are related to her lack of blood sugar control -Discussed with patient in detail - Per discussion with patient will refer to endocrinology at discharge--> refer to Dr. Marques Essential hypertension/hyperlipidemia - Continue home lisinopril 5 mg daily - Continue atorvastatin Neuropathy - Continue ropinirole Obesity - BMI 35.4 - Recommend weight loss - Complicates treatment, prognosis, outcomes DVT prophylaxis - Continue enoxaparin CODE STATUS - Full code Charges/Coding Visit Charges Inpatient E&M: 93453 Subs Hosp L2
[2025-08-12] MEDS: Senna Tablet 1 TABLET PO ×2 (09:13→21:00)
[2025-08-12] MEDS: Insulin Glargine-YFGN 100 UNIT/ML Pen 65 UNIT SC ×2 (09:15→21:05)
[2025-08-12] MEDS: 0.9% Saline Lock 10 ML Syringe IV ×3 (09:15→22:01)
[2025-08-12 09:24] VITALS: BP 155/89; PULSE 106; RESP 18; TEMP 36.9; O2SAT 99
--- NOTE | 2025-08-12 12:41 | CASEMGMT ---
Dx:R perianal cellulitis LACE:2 6-Clicks:24 Medical record reviewed and patient evaluated for identification of discharge planning needs. Based on this review, at this time criteria are not present to indicate a need for discharge planning. Will remain available to assist with discharge planning needs as identified or requested.
[2025-08-12 15:22] VITALS: BP 135/69; PULSE 98; RESP 16; TEMP 36.7; O2SAT 98
[2025-08-12 16:14] LABS: Vancomycin, Trough Level 16.0 ug/mL (5.0-15.0)
--- NOTE | 2025-08-12 16:39 | PHA.PHARE_ITS ---
Consult Antibiotic Management Pharmacy has been consulted to manage selected antibiotic: Vancomycin Type of Intervention Type of Consult: Follow-up Suspected Infection Suspected Infection: Skin/Soft tissue Labs Labs: Sodium 134 mmol/L (133-145) 08/12/25 06:10 Potassium 3.9 mmol/L (3.3-5.1) 08/12/25 06:10 Chloride 105 mmol/L (98-108) 08/12/25 06:10 Carbon Dioxide 14.3 mmol/L (21.0-32.0) L 08/12/25 06:10 Anion Gap 15 (5-15) 08/12/25 06:10 BUN 11 mg/dL (4-19) 08/12/25 06:10 Creatinine 0.69 mg/dL (0.70-1.20) L 08/12/25 06:10 Est GFR (MDRD) Non-Af 109 (>60) 08/12/25 06:10 BUN/Creatinine Ratio 15.7 RATIO (10-20) 08/12/25 06:10 Glucose 283 mg/dL (70-99) H 08/12/25 06:10 Vancomycin Trough 16.0 ug/mL (5.0-15.0) H 08/12/25 15:35 Pharmacy Plan for Drug Dosing Pharmacy Plan for Drug Dosing: VANCOMYCIN LEVEL RECEIVED Current Vancomycin Dose: 1250MG Q8 Number of Doses Received: 3 Vancomycin Level: 16 mg/dl Hours Since Last Dose: 7.5 Renal Function: SCr 0.69 mg/dL, CrCl 130 mL/min Renal Function Trend: stable Vancomycin Plan/Comments: 7.5 hour trough is therapeutic at 16 mg/dL (goal 15- 20). Will continue current dosing and get a repeat trough in 24 hours (due to Q8 dosing). Pending Level: 08/13/25 @ 1600 Pharmacy Service will continue to monitor and adjust dosing as required.
[2025-08-12 18:53] LABS: Anion Gap 12 (5-15); BUN 12 mg/dL (4-19); BUN/Creat Ratio 15.0 RATIO (10-20); Calcium,Total 8.1 mg/dL (7.6-11.0); Carbon Dioxide 17.2 mmol/L (21.0-32.0); Chloride 104 mmol/L (98-108); Estimated Creatinine Clearance 117.36 ml/min (50-250); Glucose 275 mg/dL (70-99); Potassium 4.0 mmol/L (3.3-5.1)
--- NOTE | 2025-08-12 19:01 | EX.PCM.CON.S ---
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 Given patient's history and the presence of a fluctuant center I offered bedside incision and drainage. Patient was readily receptive and after obtaining consents procedure was undertaken uncomplicated fashion. Cultures were submitted. Will follow-up with a wound check and packing removal after premedication tomorrow. Werner Cam MD General Surgery Endocrine Surgery Pager: [facility] [address] [place] [address], [facility], [address] [place] [id number] Office: [phone] HPI Consult Data Date of Consult: 08/12/25 HPI Narrative Reason for Consultation: Cutaneous abscess HPI Narrative: TRICE ZAMBRANO, is a 45 F who was admitted to [facility] over the weekend due to progressive tenderness and soft tissue swelling consistent with posterior thigh cellulitis. Patient states that she noted her blood sugars became more difficult to control on 08/09/2025 and there is soft tissue swelling by the following day. She notes that the area has approximately doubled in size each of the last 2 days. She shares she initially declined incision and drainage because CAT scan did not show an abscess. She had hoped IV antibiotics would be sufficient to take care of this infection. Patient reports a history of MRSA and necrotizing fasciitis. She states the necrotizing fasciitis spanned from the latter part of [id number]. She has had multiple incision and drainage procedures. Patient's hemoglobin A1c on intake was 13.8. Patient states that she takes her insulin every day but does not necessarily check her blood sugars. She denies her A1c ever being as high as it tested this admission. [facility] Medical History Abscess or cellulitis of perineum Abscess of deep perineal space Physical exam, pre-employment History of necrotising fasciitis Current use of insulin Diabetes Home Medications ?Medication ?Instructions ?Recorded ?Last Taken ?Type insulin glargine 100 unit/mL (3 66 unit subcut BID diabetes 04/23/21 08/11/25 07:30 History mL) subcutaneous pen (Basaglar KwikPen U-100 Insulin) insulin lispro 100 unit/mL 44 unit subcut TID 04/23/21 09/16/24 History subcutaneous pen (Humalog KwikPen (U-100) Insulin) atorvastatin 10 mg tablet 10 mg PO QHS 09/14/21 09/15/24 History lisinopril 5 mg tablet 5 mg PO DAILY 09/14/21 09/15/24 History ropinirole 0.5 mg tablet 1.5 mg PO QHS nerve pain 09/16/24 08/10/25 20:00 History insulin degludec 100 unit/mL (3 64 unit subcut BID 08/11/25 Unknown History mL) subcutaneous pen (Tresiba FlexTouch U-100 insulin) Allergy/AdvReac Type Severity Reaction Status Date / Time metformin AdvReac Nausea Verified 08/11/25 13:16 Family History Other Breast cancer Diabetes Surgical History History of cholecystectomy History of colostomy reversal History of colostomy S/P tubal ligation H/O: Social History adopted: No household members: spouse and children housing: house number of children: 2 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 There is a central area of tissue necrosis. There is no drainage. There is exquisite tenderness with palpation Lab / Micro Data 08/12/25 06:10 08/12/25 15:35 Labs: Laboratory Results - last 24 hr 08/11/25 20:33: POC Glucose 318 H 08/12/25 05:04: POC Glucose 293 H 08/12/25 06:10: WBC 10.0, RBC 4.23, Hgb 12.3, Hct 37.1, MCV 87.7 D, MCH 29.1, MCHC 33.2 D, RDW Std Deviation 41.9, RDW Coeff of Meet 13.2, Plt Count 160, MPV 11.7, Sodium 134, Potassium 3.9, Chloride 105, Carbon Dioxide 14.3 L, Anion Gap 15, BUN 11, Creatinine 0.69 L, Estim Creat Clear Calc 130.97, Est GFR (MDRD) Non-Af 109, BUN/Creatinine Ratio 15.7, Glucose 283 H, Calcium 8.1 08/12/25 11:26: POC Glucose 207 H 08/12/25 15:35: Sodium 133, Potassium 4.0, Chloride 104, Carbon Dioxide 17.2 L, Anion Gap 12, BUN 12, Creatinine 0.77, Estim Creat Clear Calc 117.36, Est GFR (MDRD) Non-Af 97, BUN/Creatinine Ratio 15.0, Glucose 275 H, Calcium 8.1, Vancomycin Trough 16.0 H 08/12/25 16:26: POC Glucose 259 H Charges/Coding Visit Charges Inpatient E&M: 64872 Init Hosp L2
--- NOTE | 2025-08-12 19:08 | PCM.OPRPT ---
Procedures Hospitalists Procedures: 73898 Drain Skin Abscess Operative Report (Standard) Operative Information Date of Procedure: 08/12/25 Pre-Operative Diagnosis: Right posterior thigh abscess Post-Operative Diagnosis: Same Surgery/Procedure Performed: Bedside incision and drainage of right posterior thigh abscess weatherization administrator: No Type of Anesthesia: Local (1% plain lidocaine) Procedure Start Time: 05:45 Procedure Stop Time: 06:10 Select all DRAINS/GRAFTS/IMPLANTS that apply: None Estimated Blood Loss: 10 Specimen collected: Yes Description of specimen(s) removed: Aerobic anaerobic cultures Description of surgery: After obtaining written consent, patient was positioned supine on the hospital bed. A verbal timeout was conducted to confirm the patient and procedure. Then the area was anesthetized with a local block using 10 mL mL of 1% lidocaine. Then, an 11 blade scalpel was used to make a stab incision in this area and ultimately remove an ellipse of skin. This resulted in production of both bloody and mildly purulent drainage. Manual pressure was applied to further express this discharge until the cavity appeared empty. Cultures were obtained with culture swabs. The cavity was then irrigated with sterile saline. The cavity it was packed tightly with quarter inch iodoform gauze. A 4 x 4 gauze was then folded into fourths and taped over site. Patient tolerated the procedure without any apparent complication. Surgical Findings: ? Small abscess cavity tracking slightly subcutaneously laterally Complications Complications: No
[2025-08-12] MEDS: Lidocaine 1% (20 ml mdv) 20 ML Vial INFILT (19:20)
[2025-08-12 20:50] VITALS: BP 152/74; PULSE 96; RESP 18; TEMP 37.1; O2SAT 95
[2025-08-13] MEDS: 0.9% Normal Saline (250mL Bag) 250 ML 15 ML IV (00:54)
[2025-08-13] MEDS: Vancomycin HCl 1,250 MG in 0.9% Normal Saline (250mL Bag) 250 ML 167 MG IV ×2 (01:00→08:15)
[2025-08-13] MEDS: 0.9% Saline Lock 10 ML Syringe IV ×5 (01:05→22:39)
[2025-08-13 01:09] VITALS: BP 144/68; PULSE 93; RESP 16; TEMP 37; O2SAT 97
[2025-08-13] MEDS: Piperacil/Tazobactam 3.375 GM in 0.9% Normal Saline (50mL MB+) 50 ML IV ×3 (06:24→22:38)
[2025-08-13 06:28] VITALS: BP 122/61; PULSE 88; RESP 16; TEMP 36.8; O2SAT 96
[2025-08-13 06:38] LABS: Hematocrit 32.2 % (37-47); Hemoglobin 11.4 g/dL (12.0-15.0); Immature Granulocytes Count 0.020 X10^3/uL (0.0-0.0); Mean Corp Hgb Conc 35.4 g/dL (32-36); Mean Corpuscular Volume 83.0 fL (81-99); Mean Platelet Vol. 11.7 fl (6.2-12.0); NRBC Flagged by Analyzer 0 % (0-5); Platelet Count 150 K/mm3 (150-450); RBC Distribution Width CV 13.2 % (11.6-14.6); RBC Distribution Width SD 39.7 fl (35.1-43.9); Red Blood Count 3.88 M/mm3 (4.2-5.4); White Blood Count 8.1 K/mm3 (4.4-11.0)
[2025-08-13 06:56] LABS: AST(SGOT) 10 U/L (<=31); Alanine Aminotransfer ALT/SGPT 11 U/L (<=34); Albumin, Serum 2.9 g/dL (3.5-5.0); Alkaline Phosphatase 66 U/L (35-104); Anion Gap 10 (5-15); BUN 9 mg/dL (4-19); BUN/Creat Ratio 11.0 RATIO (10-20); Calcium,Total 8.1 mg/dL (7.6-11.0); Carbon Dioxide 17.9 mmol/L (21.0-32.0); Chloride 107 mmol/L (98-108); Estimated Creatinine Clearance 105.08 ml/min (50-250); Globulin 2.7 g/dL (2.2-4.2); Glucose 196 mg/dL (70-99); Magnesium 2.2 mg/dL (1.5-2.2); Potassium 3.4 mmol/L (3.3-5.1)
[2025-08-13 07:24] VITALS: O2SAT 96
--- NOTE | 2025-08-13 07:24 | PCM.PN.HOSP ---
Reason for Visit Chief Complaint: Recurrent perineal infection Subjective Subjective Patient states she is overall feeling much better since I&D yesterday. We discussed another 24 hours of IV antibiotics and likely home tomorrow. Blood sugars look better with fasting sugars coming down so we will continue current regimen. Patient is agreeable to outpatient follow-up with endocrinology. Objective Data Objective Data Vital Signs: Vital Signs Temp Pulse Resp BP Pulse Ox O2 Del Method 98.3 F 88 16 122/61 H 96 Room Air 08/13/25 06:28 08/13/25 06:28 08/13/25 06:28 08/13/25 06:28 08/13/25 07:24 08/13/25 07:24 Oxygen Delivery Method Room Air Weight: 105.596 kg Body Mass Index (BMI) 35.4 Intake & Output: Intake and Output for Last 24 Hours 08/11/25 08/12/25 08/13/25 23:59 23:59 23:59 Intake Total 3327.5 / 3327.5 2575 / 2575 325 / 325 Balance 3327.5 / 3327.5 2575 / 2575 325 / 325 Lab / Micro Data 08/13/25 06:00 08/13/25 06:00 Labs: Laboratory Results - last 24 hr 08/12/25 11:26: POC Glucose 207 H 08/12/25 15:35: Sodium 133, Potassium 4.0, Chloride 104, Carbon Dioxide 17.2 L, Anion Gap 12, BUN 12, Creatinine 0.77, Estim Creat Clear Calc 117.36, Est GFR (MDRD) Non-Af 97, BUN/Creatinine Ratio 15.0, Glucose 275 H, Calcium 8.1, Vancomycin Trough 16.0 H 08/12/25 16:26: POC Glucose 259 H 08/12/25 21:03: POC Glucose 243 H 08/13/25 06:00: WBC 8.1, RBC 3.88 L, Hgb 11.4 L, Hct 32.2 L, MCV 83.0 D, MCH 29.4, MCHC 35.4 D, RDW Std Deviation 39.7, RDW Coeff of Meet 13.2, Plt Count 150, MPV 11.7, Immature Gran % (Auto) 0.200, Neut % (Auto) 77.1 H, Lymph % (Auto) 14.1 L, [place] % (Auto) 7.5, Eos % (Auto) 0.9, Baso % (Auto) 0.2, Absolute Neuts (auto) 6.3, Absolute Lymphs (auto) 1.15, Nucleated RBC % 0, Sodium 135, Potassium 3.4, Chloride 107, Carbon Dioxide 17.9 L, Anion Gap 10, BUN 9, Creatinine 0.86, Estim Creat Clear Calc 105.08, Est GFR (MDRD) Non-Af 84, BUN/Creatinine Ratio 11.0, Glucose 196 H, Calcium 8.1, Phosphorus 2.6 L, Magnesium 2.2, Total Bilirubin 0.32, AST 10, ALT 11, Alkaline Phosphatase 66, Total Protein 5.6 L, Albumin 2.9 L, Globulin 2.7, Albumin/Globulin Ratio 1.1 08/13/25 06:23: POC Glucose 193 H Physical Exam Const alert, oriented x3, no apparent distress and well nourished; Negative for average body habitus or healthy appearing Constitutional Narrative: Obese, middle-aged, white female, sitting up in bed, appears much more comfortable than yesterday, nontoxic, very pleasant HEENT normocephalic, head/scalp atraumatic and moist oral mucous membranes HEENT Narrative: No thrush, Mallampati 3 Resp normal respiratory effort, normal air movement, no retractions, no use of accessory muscles and clear to auscultation bilaterally Auscultation: Negative for crackles, rhonchi or wheezes Cardio regular rate, regular rhythm, S1 normal heart sound, S2 normal heart sound, no murmurs, no rub, no gallops and no clicks GI normal to inspection, nondistended, normoactive bowel sounds, soft to palpation and non-tender Extremity no clubbing, cyanosis or edema Extremity Narrative: Pedal and radial pulses are 2+ Neuro moves all extremities and no focal motor deficits Speech: speech normal Psych affect normal Psych Narrative: Very pleasant, interacts appropriately Assessment & Plan Assessment/Plan (1) Abscess: (2) Low serum bicarbonate: (3) Elevated beta-hydroxybutyrate: PLAN: Plan Cellulitis/abscess of the perineum - Required I&D previously which was polymicrobial including Enterococcus faecalis, E. coli, staph epi, Prevotella, and anaerobic cocci - Much improved after I&D - Continue vancomycin and Zosyn for another 24 hours and will plan to discharge on oral antibiotics - Culture from I&D requested - Continue with as needed p.o. and IV pain medication - Appreciate general surgery assistance Hypophosphatemia - Mild - K-Phos bolus - Repeat lab in a.m. Low serum bicarb - Improving - Etiology is unclear Elevated beta hydroxybutyrate - Likely starvation related as patient had not eaten for about 24 to 48 hours prior to admission next-not acidotic on VBG DM-uncontrolled - A1c is 13.8 - Patient states her fastings are about 120-130 at home but they get more uncontrolled the day goes on - Continue current doses of basal insulin next-continue current bolus insulin as her blood sugars seem to be improving with improved infection control - continue SSI - Highly suspect that her recurrent perineal infections are related to her lack of blood sugar control -Discussed with patient in detail - Per discussion with patient will refer to endocrinology at discharge--> refer to Dr. Marques Essential hypertension/hyperlipidemia - Continue home lisinopril 5 mg daily-Will continue to monitor blood pressure as she is having some elevated pressures and consider 10 mg of lisinopril from 5 - Continue atorvastatin Neuropathy - Continue ropinirole Obesity - BMI 35.4 - Recommend weight loss - Complicates treatment, prognosis, outcomes DVT prophylaxis - Continue enoxaparin CODE STATUS - Full code Charges/Coding Visit Charges Inpatient E&M: 87578 Subs Hosp L2
[2025-08-13] MEDS: HYDROmorphone 0.5 MG/0.5 ML SYRINGE IV (07:35)
--- NOTE | 2025-08-13 08:12 | PCM.PN.SRG ---
Subjective Subjective Patient evaluated resting comfortably in bed. She notes feeling improved this morning. She notes the pressure is completely resolved. She note sthe area is stil tender. She denies having to change the dressing over night. Objective Data Objective Data Vital Signs: Vital Signs Temp Pulse Resp BP Pulse Ox O2 Del Method 98.3 F 88 16 122/61 H 96 Room Air 08/13/25 06:28 08/13/25 06:28 08/13/25 06:28 08/13/25 06:28 08/13/25 07:24 08/13/25 07:24 Oxygen Delivery Method Room Air Weight: 232 lb 12.8 oz Body Mass Index (BMI) 35.4 Intake & Output: Intake and Output for Last 24 Hours 08/11/25 08/12/25 08/13/25 23:59 23:59 23:59 Intake Total 3327.5 / 3327.5 2575 / 2575 427 / 427 Balance 3327.5 / 3327.5 2575 / 2575 427 / 427 Lab / Micro Data 08/13/25 06:00 08/13/25 06:00 Labs: Laboratory Results - last 24 hr 08/12/25 11:26: POC Glucose 207 H 08/12/25 15:35: Sodium 133, Potassium 4.0, Chloride 104, Carbon Dioxide 17.2 L, Anion Gap 12, BUN 12, Creatinine 0.77, Estim Creat Clear Calc 117.36, Est GFR (MDRD) Non-Af 97, BUN/Creatinine Ratio 15.0, Glucose 275 H, Calcium 8.1, Vancomycin Trough 16.0 H 08/12/25 16:26: POC Glucose 259 H 08/12/25 21:03: POC Glucose 243 H 08/13/25 06:00: WBC 8.1, RBC 3.88 L, Hgb 11.4 L, Hct 32.2 L, MCV 83.0 D, MCH 29.4, MCHC 35.4 D, RDW Std Deviation 39.7, RDW Coeff of Meet 13.2, Plt Count 150, MPV 11.7, Immature Gran % (Auto) 0.200, Neut % (Auto) 77.1 H, Lymph % (Auto) 14.1 L, [place] % (Auto) 7.5, Eos % (Auto) 0.9, Baso % (Auto) 0.2, Absolute Neuts (auto) 6.3, Absolute Lymphs (auto) 1.15, Nucleated RBC % 0, Sodium 135, Potassium 3.4, Chloride 107, Carbon Dioxide 17.9 L, Anion Gap 10, BUN 9, Creatinine 0.86, Estim Creat Clear Calc 105.08, Est GFR (MDRD) Non-Af 84, BUN/Creatinine Ratio 11.0, Glucose 196 H, Calcium 8.1, Phosphorus 2.6 L, Magnesium 2.2, Total Bilirubin 0.32, AST 10, ALT 11, Alkaline Phosphatase 66, Total Protein 5.6 L, Albumin 2.9 L, Globulin 2.7, Albumin/Globulin Ratio 1.1 08/13/25 06:23: POC Glucose 193 H Physical Exam Extremity Extremity Narrative: Right posterior thigh- all packing was removed. Surrounding tenderness to palpation. Very faint erythema. Open wound was packed with dry 2 x 2 and 4 x 4 dry gauze was applied over top and secured with medipore tape. No active drainage noted. Purulent/bloody drainage on the dressing was noted. Assessment & Plan Assessment/Plan (1) Abscess: PLAN: Plan I am following this patient in conjunction with Dr. Cam. He has independently evaluated this patient. Labs reviewed Cultures pending No repacking will be needed after pulled this morning for her shower Keep wound covered until completely closed Follow-up in the office in 7-10 days for re-evaluation Recommend total of 10 days of antibiotics (including IV antibiotics) Ready for discharge from a surgical standpoint today Our office will call with cultures results once obtained Charges/Coding Visit Charges Inpatient E&M: 14271 Subs Hosp L2
[2025-08-13 10:00] VITALS: BP 135/71; PULSE 96; RESP 16; TEMP 36.6; O2SAT 98
[2025-08-13] MEDS: Insulin Glargine-YFGN 100 UNIT/ML Pen 65 UNIT SC ×2 (10:14→21:27)
[2025-08-13] MEDS: Potassium Phosphate 15 MM in 0.9% Normal Saline (250mL Bag) 250 ML 125 MM IV (10:15)
[2025-08-13] MEDS: Senna Tablet 1 TABLET PO ×2 (10:16→21:31)
[2025-08-13 14:17] VITALS: BP 148/76; PULSE 96; RESP 16; TEMP 37; O2SAT 97
[2025-08-13 17:00] LABS: Vancomycin, Trough Level 19.2 ug/mL (5.0-15.0)
--- NOTE | 2025-08-13 17:11 | PCM.RX.CS ---
Consult Antibiotic Management Pharmacy has been consulted to manage selected antibiotic: Vancomycin Type of Intervention Type of Consult: Follow-up Suspected Infection Suspected Infection: Skin/Soft tissue Prior Doses of Antibiotics Prior Doses of Antibiotics Received/Current Regimen: current dose is vanc 1250mg IV q8h Labs Labs: Sodium 135 mmol/L (133-145) 08/13/25 06:00 Potassium 3.4 mmol/L (3.3-5.1) 08/13/25 06:00 Chloride 107 mmol/L (98-108) 08/13/25 06:00 Carbon Dioxide 17.9 mmol/L (21.0-32.0) L 08/13/25 06:00 Anion Gap 10 (5-15) 08/13/25 06:00 BUN 9 mg/dL (4-19) 08/13/25 06:00 Creatinine 0.86 mg/dL (0.70-1.20) 08/13/25 06:00 Est GFR (MDRD) Non-Af 84 (>60) 08/13/25 06:00 BUN/Creatinine Ratio 11.0 RATIO (10-20) 08/13/25 06:00 Glucose 196 mg/dL (70-99) H 08/13/25 06:00 Vancomycin Trough 19.2 ug/mL (5.0-15.0) H 08/13/25 16:14 Microbiology Microbiology: Microbiology 08/12/25 18:20 Abs - Buttock Gram Stain - Final Dosing Weight Weight used for dosin.6 kg Estimated Creatinine Clearance Estimated Creatinine Clearance: 105 ml/min Goal Trough Goal Trough: 15-20 mcg/mL Pharmacy Plan for Drug Dosing Pharmacy Plan for Drug Dosing: The vanc trough drawn at 16:14 (approx 8 hours after the previous dose) was 19.2 mcg/ml. This is still in range but at the very top of the range. It was at 16 mcg/ml yesterday at the same dose. Very likely the trough will keep rising above goal range so will decrease dose to 1000mg IV q8h. Repeat a trough level before the 4th dose tomorrow. Of note, the patient's SCr did go up slightly to 0.86 today from 0.69 yesterday. Pharmacy Service will continue to monitor and adjust dosing as required. Follow-Up Labs Follow-Up Labs: Trough: Vancomycin Date/Time Labs Ordered Labs to be done on [date and time ordered]: 08/14/25 17:00
[2025-08-13] MEDS: Vancomycin HCl 1,000 MG in 0.9% Normal Saline (250mL Bag) 250 ML 250 MG IV (18:39)
--- NOTE | 2025-08-13 20:06 | NURSING ---
Pt reports she just had a visit from Huey Hussein. She is unsure how he found out that she was in the hospital or how he found her room number. She states this worries her. States he has stopped by her house and her work uninvited. Asked pt if she has thought about talking to the police about him, patient states no. This Rn encouraged the patient to do so. Patient asked that this RN remove the hwang and the two cups that Huey Calvilloer brought for the Patient. This RN notified security of the event as well as asked the patient to be taken off the registry. Called notified the printing and stamping supervisor. Pt will be moved to [facility] and the door will be closed. HRO & security are in the room at this time talking with the patient.
[2025-08-13 21:15] VITALS: BP 156/81; PULSE 107; RESP 18; TEMP 36.5; O2SAT 97
--- NOTE | 2025-08-13 22:47 | NURSING ---
c/o upset stomach d/t night meds. Pt stated she usually takes night meds with milk but forgot to ask. Pt requested glucerna, gave pt glucerna. Will continue to monitor
[2025-08-14 02:54] VITALS: BP 148/87; PULSE 95; RESP 16; TEMP 37.1; O2SAT 98
[2025-08-14] MEDS: Vancomycin HCl 1,000 MG in 0.9% Normal Saline (250mL Bag) 250 ML 250 MG IV ×2 (02:57→10:14)
[2025-08-14] MEDS: 0.9% Saline Lock 10 ML Syringe IV ×2 (05:51→13:47)
[2025-08-14] MEDS: Piperacil/Tazobactam 3.375 GM in 0.9% Normal Saline (50mL MB+) 50 ML IV ×3 (05:56→22:52)
[2025-08-14] MEDS: HYDROmorphone 0.5 MG/0.5 ML SYRINGE IV ×2 (07:24→16:21)
--- NOTE | 2025-08-14 07:45 | PN.SURG_ITS ---
Subjective Subjective Patient evaluated this morning. She notes not having a very good night sleep. She notes being painful all night. She notes the pressure has resolved, however she is noting that the pain is extending into her right inner thigh. She notes the oxy takes the edge off of the pain and was trying to avoid IV pain medication in hopes of going home, however she feels she may benefit from something stronger. Objective Data Objective Data Vital Signs: Vital Signs Temp Pulse Resp BP Pulse Ox O2 Del Method 98.7 F 95 16 148/87 H 98 Room Air 08/14/25 02:54 08/14/25 02:54 08/14/25 02:54 08/14/25 02:54 08/14/25 02:54 08/14/25 02:54 Oxygen Delivery Method Room Air Weight: 232 lb 12.8 oz Body Mass Index (BMI) 35.4 Intake & Output: Intake and Output for Last 24 Hours 08/12/25 08/13/25 08/14/25 23:59 23:59 23:59 Intake Total 2575 / 2575 1327 / 1567 560 / 560 Balance 2575 / 2575 1327 / 1567 560 / 560 Lab / Micro Data 08/13/25 06:00 08/13/25 06:00 Labs: Laboratory Results - last 24 hr 08/13/25 11:06: POC Glucose 186 H 08/13/25 16:00: POC Glucose 140 H 08/13/25 16:14: Vancomycin Trough 19.2 H 08/13/25 21:24: POC Glucose 187 H 08/14/25 06:22: POC Glucose 153 H Micro: Microbiology 08/12/25 18:20 Abs - Buttock Gram Stain - Final Physical Exam Skin Skin Narrative: Right posterior thigh- Open wound draining purulent material. Gauze was changed. During examination it appears patient's erythema has extended into her medial middle thigh region. This was not noted yesterday. The area is warm. She notes the whole area is tender/sore. Multiple 2 x 2's were applied and secured with medipore tape. Assessment & Plan Assessment/Plan (1) Abscess: (2) Cellulitis of perineum: (3) Diabetes mellitus type 1: QUALIFIERS: Diabetes mellitus complication status: with other specified complication Qualified Code(s): E10.69 - Type 1 diabetes mellitus with other specified complication PLAN: Plan I am following this patient in conjunction with Dr. Solo in Dr. Cam's absence. He will independently evaluate this patient. Labs pending New extension of erythema into right medial thigh that was not noted yesterday Patient has a history of necrotizing fasciitis in 2020 and diabetes Current antibiotics are Zosyn and Vanco Culture preliminary demonstrates Strep group B and Alpha hemolytic organism Recommend infectious disease input/consult Patient would benefit from another day of admission with IV antibiotics and re- evaluate tomorrow for discharge We will continue to monitor this patient Charges/Coding Visit Charges Inpatient E&M: 61787 Subs Hosp L2
[2025-08-14 08:34] VITALS: BP 150/90; PULSE 96; RESP 18; TEMP 36.2; O2SAT 99
[2025-08-14] MEDS: Insulin Glargine-YFGN 100 UNIT/ML Pen 65 UNIT SC ×2 (08:39→22:42)
--- NOTE | 2025-08-14 13:22 | PCM.PN.HOSP ---
Reason for Visit Chief Complaint: Recurrent perineal infection Subjective Subjective Patient with some worsening pain overnight at night of sleep. She was anxious to go home however erythema has spread to the area of the I&D so we will go ahead and hold off and consult ID. Cultures are resulted and should be sensitive to current antibiotics. Objective Data Objective Data Vital Signs: Vital Signs Temp Pulse Resp BP Pulse Ox O2 Del Method 97.1 F L 96 18 150/90 H 99 Room Air 08/14/25 08:34 08/14/25 08:34 08/14/25 08:34 08/14/25 08:34 08/14/25 08:34 08/14/25 08:34 Oxygen Delivery Method Room Air Weight: 105.596 kg Body Mass Index (BMI) 35.4 Intake & Output: Intake and Output for Last 24 Hours 08/12/25 08/13/25 08/14/25 23:59 23:59 23:59 Intake Total 2575 / 2575 1327 / 1567 1120 / 1120 Balance 2575 / 2575 1327 / 1567 1120 / 1120 Lab / Micro Data 08/13/25 06:00 08/13/25 06:00 Labs: Laboratory Results - last 24 hr 08/13/25 16:00: POC Glucose 140 H 08/13/25 16:14: Vancomycin Trough 19.2 H 08/13/25 21:24: POC Glucose 187 H 08/14/25 06:22: POC Glucose 153 H 08/14/25 11:23: POC Glucose 126 H Micro: Microbiology 08/12/25 18:20 Abs - Buttock Gram Stain - Final 08/12/25 18:20 Abs - Buttock Wound Culture - Preliminary Streptococcus group B Alpha hemolytic organism Physical Exam Const alert, oriented x3 and well nourished; Negative for average body habitus or healthy appearing Constitutional Narrative: Obese, middle-aged, white female, lying in left side-lying in bed sleeping but awakens easily, nursing at bedside, patient appears uncomfortable but not toxic and in no acute distress HEENT normocephalic, head/scalp atraumatic and moist oral mucous membranes Resp normal respiratory effort, normal air movement, no retractions, no use of accessory muscles and clear to auscultation bilaterally Auscultation: Negative for crackles, rhonchi or wheezes Cardio regular rate, regular rhythm, S1 normal heart sound, S2 normal heart sound, no murmurs, no rub, no gallops and no clicks GI normal to inspection, nondistended, normoactive bowel sounds, soft to palpation and non-tender Extremity no clubbing, cyanosis or edema Extremity Narrative: Pedal and radial pulses are 2+ Neuro moves all extremities and no focal motor deficits Speech: speech normal Psych mental status grossly normal and affect normal Psych Narrative: Very pleasant, interacts appropriately Assessment & Plan Assessment/Plan (1) Abscess: (2) Low serum bicarbonate: (3) Elevated beta-hydroxybutyrate: PLAN: Plan Cellulitis/abscess of the perineum - Required I&D previously which was polymicrobial including Enterococcus faecalis, E. coli, staph epi, Prevotella, and anaerobic cocci - Patient felt much improved after I&D but today she has had worsening pain and had a bad night - Continue vancomycin and Zosyn now - Aerobic culture shows group B strep and alphahemolytic organism but anaerobic cultures remain pending - With worsening of pain will consult ID - If remains worse tomorrow may need to check CT of the area - Continue with as needed p.o. and IV pain medication - Appreciate general surgery assistance Hypophosphatemia - Resolved Low serum bicarb - Improving - Etiology is unclear - Repeat lab in a.m. Elevated beta hydroxybutyrate - Likely starvation related as patient had not eaten for about 24 to 48 hours prior to admission next-not acidotic on VBG DM-uncontrolled - A1c was 13.8 on admission - Blood sugars are much improved will continue current regimen - continue SSI - Highly suspect that her recurrent perineal infections are related to her lack of blood sugar control -Discussed with patient in detail - Per discussion with patient will refer to endocrinology at discharge--> refer to Dr. Marques Essential hypertension/hyperlipidemia - Increase lisinopril to 10 mg - Continue atorvastatin Neuropathy - Continue ropinirole Obesity - BMI 35.4 - Recommend weight loss - Complicates treatment, prognosis, outcomes DVT prophylaxis - Continue enoxaparin CODE STATUS - Full code Charges/Coding Visit Charges Inpatient E&M: 07910 Subs Hosp L2
--- NOTE | 2025-08-14 13:45 | PCM.CONS.GEN ---
Assessment & Plan Assessment/Plan (1) Elevated beta-hydroxybutyrate: (2) Diabetes mellitus type 1: QUALIFIERS: Diabetes mellitus complication status: with other specified complication Qualified Code(s): E10.69 - Type 1 diabetes mellitus with other specified complication (3) Cutaneous abscess of perineum: PLAN: At risk for recurrent infections due to uncontrolled DM, a1c is 13.8, glucose was 527 on admit. Now s/p I&D, wound cx with strep so far. On vanc/zosyn, will continue for now. Will follow, thank you HPI Consult Data Date of Consult: 08/14/25 HPI Narrative Reason for Consultation: perineal abscess HPI Narrative: TRICE ZAMBRANO, is a 45 F with h/o necrotizing fasciitis in 2020, perineal abscess in 2023, now again with several days progressive R buttock pain, redness, swelling with associated chills. No known inciting event. No drainage from site. Came to ED 08/11, had bedside I&D done, on vanc/zosyn, but some increased redness seen now extending down R thigh. Full ROS performed and neg except as noted above. [facility] Medical History Abscess or cellulitis of perineum Abscess of deep perineal space Physical exam, pre-employment History of necrotising fasciitis Current use of insulin Diabetes Home Medications ?Medication ?Instructions ?Recorded ?Last Taken ?Type insulin glargine 100 unit/mL (3 66 unit subcut BID diabetes 04/23/21 08/11/25 07:30 History mL) subcutaneous pen (Basaglar KwikPen U-100 Insulin) insulin lispro 100 unit/mL 44 unit subcut TID 04/23/21 09/16/24 History subcutaneous pen (Humalog KwikPen (U-100) Insulin) atorvastatin 10 mg tablet 10 mg PO QHS 09/14/21 09/15/24 History lisinopril 5 mg tablet 5 mg PO DAILY 09/14/21 09/15/24 History ropinirole 0.5 mg tablet 1.5 mg PO QHS nerve pain 09/16/24 08/10/25 20:00 History insulin degludec 100 unit/mL (3 64 unit subcut BID 08/11/25 Unknown History mL) subcutaneous pen (Tresiba FlexTouch U-100 insulin) Allergy/AdvReac Type Severity Reaction Status Date / Time metformin AdvReac Nausea Verified 08/11/25 13:16 Family History Other Breast cancer Diabetes Surgical History History of cholecystectomy History of colostomy reversal History of colostomy S/P tubal ligation H/O: Social History adopted: No household members: spouse and children housing: house number of children: 2 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 pets and animals: No leisure activities: art, games and volunteer work history of recent travel: No sexually active: Yes Smoking Status: Never smoker Physical Exam Const alert, oriented x3 and no apparent distress General Appearance: cooperative HEENT normocephalic and head/scalp atraumatic Eyes PERRL and EOMs intact bilaterally Neck supple and No nodes Resp normal air movement and clear to auscultation bilaterally Cardio regular rate and regular rhythm GI soft to palpation, non-tender and non-distended Extremity General Extremity: Negative for edema Skin Skin Narrative: R perineal wound with some surrounding redness and induration, mild tenderness Neuro CN's II-XII intact bilaterally Lab / Micro Data Attestation: I reviewed the patient's lab results. 08/13/25 06:00 08/13/25 06:00 Labs: Laboratory Results - last 24 hr 08/13/25 16:00: POC Glucose 140 H 08/13/25 16:14: Vancomycin Trough 19.2 H 08/13/25 21:24: POC Glucose 187 H 08/14/25 06:22: POC Glucose 153 H 08/14/25 11:23: POC Glucose 126 H Micro: Microbiology 08/12/25 18:20 Abs - Buttock Gram Stain - Final 08/12/25 18:20 Abs - Buttock Wound Culture - Preliminary Streptococcus group B Alpha hemolytic organism
[2025-08-14 14:00] VITALS: BP 132/82; PULSE 91; RESP 18; TEMP 36.1; O2SAT 100
[2025-08-14] MEDS: Vancomycin Trough/Random Due 1 LAB MC (17:13)
[2025-08-14 18:30] LABS: Vancomycin, Trough Level 21.9 ug/mL (5.0-15.0)
--- NOTE | 2025-08-14 18:57 | PCM.RX.CS ---
Consult Antibiotic Management Pharmacy has been consulted to manage selected antibiotic: Vancomycin Type of Intervention Type of Consult: Follow-up Labs Labs: Sodium 135 mmol/L (133-145) 08/13/25 06:00 Potassium 3.4 mmol/L (3.3-5.1) 08/13/25 06:00 Chloride 107 mmol/L (98-108) 08/13/25 06:00 Carbon Dioxide 17.9 mmol/L (21.0-32.0) L 08/13/25 06:00 Anion Gap 10 (5-15) 08/13/25 06:00 BUN 9 mg/dL (4-19) 08/13/25 06:00 Creatinine 0.86 mg/dL (0.70-1.20) 08/13/25 06:00 Est GFR (MDRD) Non-Af 84 (>60) 08/13/25 06:00 BUN/Creatinine Ratio 11.0 RATIO (10-20) 08/13/25 06:00 Glucose 196 mg/dL (70-99) H 08/13/25 06:00 Vancomycin Trough 21.9 ug/mL (5.0-15.0) H 08/14/25 17:08 Microbiology Microbiology: Microbiology 08/12/25 18:20 Abs - Buttock Gram Stain - Final 08/12/25 18:20 Abs - Buttock Wound Culture - Preliminary Streptococcus group B Alpha hemolytic organism Goal Trough Goal Trough: 15-20 mcg/mL Pharmacy Plan for Drug Dosing Pharmacy Plan for Drug Dosing: VANCOMYCIN LEVEL RECEIVED Current Vancomycin Dose: 1000mg IV Q8h Number of Doses Received: 3 (of current regimen) Vancomycin Level: 21.9 Hours Since Last Dose: 7hr Renal Function: scr 0.86/ crcl 105 ml/min Renal Function Trend: stable Lab/Micro: wcx growing strep spp Vancomycin Plan/Comments: patient had a trough drawn which resulted in a value of 21.9 (goal 15-20). the patient's trough is above goal, will hold subsequent doses and resume vancomycin once trough level is below 20. Pending Level: *Random* 08/15/25 @0100, 8hrs from last trough draw Pharmacy Service will continue to monitor and adjust dosing as required.
[2025-08-14 20:00] VITALS: BP 134/64; PULSE 94; RESP 15; TEMP 36.7; O2SAT 99
[2025-08-14 20:46] VITALS: BP 147/76; PULSE 78; RESP 15; TEMP 36.7; O2SAT 98
[2025-08-15 00:16] VITALS: BP 114/62; PULSE 82; RESP 15; TEMP 36.7; O2SAT 98
[2025-08-15 01:31] LABS: Vancomycin, Random Level 15.6 ug/mL (0.0-15.0)
--- NOTE | 2025-08-15 01:51 | PCM.RX.CS ---
Consult Antibiotic Management Pharmacy has been consulted to manage selected antibiotic: Vancomycin Type of Intervention Type of Consult: Follow-up Suspected Infection Suspected Infection: Skin/Soft tissue Labs Labs: Sodium 135 mmol/L (133-145) 08/13/25 06:00 Potassium 3.4 mmol/L (3.3-5.1) 08/13/25 06:00 Chloride 107 mmol/L (98-108) 08/13/25 06:00 Carbon Dioxide 17.9 mmol/L (21.0-32.0) L 08/13/25 06:00 Anion Gap 10 (5-15) 08/13/25 06:00 BUN 9 mg/dL (4-19) 08/13/25 06:00 Creatinine 0.86 mg/dL (0.70-1.20) 08/13/25 06:00 Est GFR (MDRD) Non-Af 84 (>60) 08/13/25 06:00 BUN/Creatinine Ratio 11.0 RATIO (10-20) 08/13/25 06:00 Glucose 196 mg/dL (70-99) H 08/13/25 06:00 Vancomycin Trough 21.9 ug/mL (5.0-15.0) H 08/14/25 17:08 Random Vancomycin 15.6 ug/mL (0.0-15.0) H 08/15/25 00:55 Microbiology Microbiology: Microbiology 08/12/25 18:20 Abs - Buttock Gram Stain - Final 08/12/25 18:20 Abs - Buttock Wound Culture - Preliminary Streptococcus group B Alpha hemolytic organism Dosing Weight Weight used for dosin kg Estimated Creatinine Clearance Estimated Creatinine Clearance: 105 Goal Trough Goal Trough: 15-20 mcg/mL Pharmacy Plan for Drug Dosing Pharmacy Plan for Drug Dosing: Random vancomycin level fell back to therapeutic level, at 15.6. This was 14.6hrs since the last dose. Per dosing calculator, a new dose of 1250mg q12hrs will give an estimated new trough of 16.5. Will initiate now and draw a trough level prior to fourth dose of the new regimen. Pharmacy Service will continue to monitor and adjust dosing as required. Follow-Up Labs Follow-Up Labs: Trough: Vancomycin Date/Time Labs Ordered Labs to be done on [date and time ordered]: 08/16/25 @3601
[2025-08-15] MEDS: Vancomycin HCl 1,250 MG in 0.9% Normal Saline (250mL Bag) 250 ML 167 MG IV (02:46)
[2025-08-15 05:44] VITALS: BP 100/60; PULSE 86; RESP 15; TEMP 36.7; O2SAT 98
[2025-08-15] MEDS: Piperacil/Tazobactam 3.375 GM in 0.9% Normal Saline (50mL MB+) 50 ML IV (05:52)
[2025-08-15 06:25] LABS: Hematocrit 34.8 % (37-47); Hemoglobin 11.8 g/dL (12.0-15.0); Immature Granulocytes Count 0.030 X10^3/uL (0.0-0.0); Mean Corp Hgb Conc 33.9 g/dL (32-36); Mean Corpuscular Volume 86.4 fL (81-99); Mean Platelet Vol. 11.0 fl (6.2-12.0); NRBC Flagged by Analyzer 0 % (0-5); Platelet Count 204 K/mm3 (150-450); RBC Distribution Width CV 13.2 % (11.6-14.6); RBC Distribution Width SD 41.6 fl (35.1-43.9); Red Blood Count 4.03 M/mm3 (4.2-5.4); White Blood Count 6.0 K/mm3 (4.4-11.0)
[2025-08-15 06:51] LABS: Anion Gap 9 (5-15); BUN 10 mg/dL (4-19); BUN/Creat Ratio 8.5 RATIO (10-20); Calcium,Total 8.5 mg/dL (7.6-11.0); Carbon Dioxide 22.8 mmol/L (21.0-32.0); Chloride 107 mmol/L (98-108); Estimated Creatinine Clearance 79.97 ml/min (50-250); Glucose 140 mg/dL (70-99); Potassium 3.6 mmol/L (3.3-5.1)
[2025-08-15 07:10] VITALS: O2SAT 96
[2025-08-15 08:18] VITALS: BP 119/65; PULSE 85; RESP 17; TEMP 36.8; O2SAT 97
--- NOTE | 2025-08-15 10:31 | PCM.PN.ID ---
Physical Exam Narrative Feeling better, less pain, mild nausea, no fever, no diarrhea Const alert and no apparent distress General Appearance: cooperative Resp normal air movement and clear to auscultation bilaterally Cardio regular rate and regular rhythm GI soft to palpation, non-tender and non-distended Skin Skin Narrative: much improved erythema ID ID: Route of nutrition/ use of supplements: [] Nutritional Intake: [] IV Site: [] Mckeon Catheter: [] Assessment & Plan Assessment/Plan (1) Elevated beta-hydroxybutyrate: (2) Diabetes mellitus type 1: QUALIFIERS: Diabetes mellitus complication status: with other specified complication Qualified Code(s): E10.69 - Type 1 diabetes mellitus with other specified complication (3) Cutaneous abscess of perineum: PLAN: At risk for recurrent infections due to uncontrolled DM, a1c is 13.8, glucose was 527 on admit. Now s/p I&D, wound cx with strep so far. On vanc/zosyn, much improved on exam. Ok for discharge with one week po augmentin 875mg bid for 10 days total abx from her I&D. For penitentiary prevention, will need glucose control. Will follow
[2025-08-15 10:58] VITALS: BP 143/76; PULSE 95; RESP 20; TEMP 36.9; O2SAT 100
--- NOTE | 2025-08-15 11:07 | PCM.PN.SRG ---
Subjective Subjective Patient seen and examined during AM rounds. She is found resting in bed. She states that she has been set up for discharge to home. She reports that her pain is improved and her redness seems to be receding. She was only able to do 1 shower since our I&D procedure as she pulled her peripheral IV access with that shower. Objective Data Objective Data Vital Signs: Vital Signs Temp Pulse Resp BP Pulse Ox O2 Del Method 98.4 F 95 20 H 143/76 H 100 Room Air 08/15/25 10:58 08/15/25 10:58 08/15/25 10:58 08/15/25 10:58 08/15/25 10:58 08/15/25 10:58 Oxygen Delivery Method Room Air Weight: 232 lb 12.8 oz Body Mass Index (BMI) 35.4 Intake & Output: Intake and Output for Last 24 Hours 08/13/25 08/14/25 08/15/25 23:59 23:59 23:59 Intake Total 1327 / 1567 1170 / 1170 375 / 375 Balance 1327 / 1567 1170 / 1170 375 / 375 Lab / Micro Data 08/15/25 05:57 08/15/25 05:57 Labs: Laboratory Results - last 24 hr 08/14/25 11:23: POC Glucose 126 H 08/14/25 16:14: POC Glucose 120 H 08/14/25 17:08: Vancomycin Trough 21.9 H 08/14/25 22:39: POC Glucose 191 H 08/15/25 00:55: Random Vancomycin 15.6 H 08/15/25 05:57: WBC 6.0, RBC 4.03 L, Hgb 11.8 L, Hct 34.8 L, MCV 86.4, MCH 29.3, MCHC 33.9, RDW Std Deviation 41.6, RDW Coeff of Meet 13.2, Plt Count 204, MPV 11.0, Immature Gran % (Auto) 0.500, Neut % (Auto) 69.0, Lymph % (Auto) 18.5 L, Major % (Auto) 8.8, Eos % (Auto) 2.7, Baso % (Auto) 0.5, Absolute Neuts (auto) 4.2, Absolute Lymphs (auto) 1.11, Nucleated RBC % 0, Sodium 139, Potassium 3.6, Chloride 107, Carbon Dioxide 22.8, Anion Gap 9, BUN 10, Creatinine 1.13, Estim Creat Clear Calc 79.97, Est GFR (MDRD) Non-Af 61, BUN/Creatinine Ratio 8.5 L, Glucose 140 H, Calcium 8.5 08/15/25 08:07: POC Glucose 110 H Micro: Microbiology 08/12/25 18:20 Abs - Buttock Gram Stain - Final 08/12/25 18:20 Abs - Buttock Wound Culture - Preliminary Streptococcus group B Alpha hemolytic organism 08/12/25 18:20 Abs - Buttock Anaerobic Culture - Preliminary Checking for anaerobes, further studies to follow. Physical Exam Const oriented x3 and no apparent distress Resp normal respiratory effort Extremity Extremity Narrative: Persistent inflammatory change to right posterior thigh with a woodiness to the tissue and some juliet-incisional induration. The area of erythema does appear receded from marking delineating the furthest reach as of this erythema yesterday. The I&D site remains draining with some adherent exudative material. It is probed and there is no further evidence of loculated fluid collections. 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 Abscess was drained at bedside 3 days ago and continues to display slow incremental improvements. Apparently there was more erythema yesterday but this appears receded from the delineated markings. Cultures from drainage procedure showing alphahemolytic strep. ID engaged. Today cavity was probed and I do not identify any undrained collections. However, given patient's history and the slow resolution to date I am recommending outpatient follow-up for wound check with our office in the next week and a half. Patient is also encouraged to keep an eye to her blood sugars. Werner Cam MD General Surgery Endocrine Surgery Pager: [facility] [address] [place] [address], [address] [place], [place] [id number] Office: [phone] Charges/Coding Visit Charges Inpatient E&M: 30316 Subs Hosp L2
--- NOTE | 2025-08-15 12:08 | PCM.DC.SUM ---
Providers Date of Admission: 08/11/25 Date of Discharge: 08/15/25 Primary Care Physician: Dr. Joaquin Huitron MD Consultations 08/12/25 16:36 Consult: General Surgery Routine Consulting Provider: Werner Cam Reason for Consult: R Leg abscess needs I/D EMERGENT Consult: No Notified: Yes Date Notified: 08/12/25 Time Notified: 16:36 Method of Notification: Verbal 08/14/25 10:20 Consult: Infectious Disease Routine Consulting Provider: Fran Daley Reason for Consult: abscess EMERGENT Consult: No Notified: Yes Date Notified: 08/14/25 Time Notified: 10:47 Method of Notification: Text Reason For Visit: RIGHT PERIANAL CELLULITIS Diagnosis Discharge Diagnosis (1) Abscess: Status: Acute Code(s): L02.91 - Cutaneous abscess, unspecified Medications at Discharge Home Medications insulin glargine 100 unit/mL (3 mL) subcutaneous pen (Basaglar KwikPen U-100 Insulin) 66 unit subcut BID diabetes 04/23/21 insulin lispro 100 unit/mL subcutaneous pen (Humalog KwikPen (U-100) Insulin) 44 unit subcut TID 04/23/21 atorvastatin 10 mg tablet 10 mg PO QHS 09/14/21 ropinirole 0.5 mg tablet 1.5 mg PO QHS nerve pain 09/16/24 insulin degludec 100 unit/mL (3 mL) subcutaneous pen (Tresiba FlexTouch U-100 insulin) 64 unit subcut BID 08/11/25 amoxicillin 875 mg-potassium clavulanate 125 mg tablet 1 tab PO BID #14 tabs 08/15/25 lisinopril 10 mg tablet 10 mg PO DAILY #30 tabs 08/15/25 oxycodone 5 mg tablet 5 mg PO Q4H PRN PRN Pain Score 4-10 3 days #18 tabs 08/15/25 Hospital Course Operations - (I&D of right thigh abscess) Procedures - (CT abdomen and pelvis) Summary of Care Provided Minutes Spent on Discharge: 38 Hospital Course: Ms. Edwards is a 45-year-old white female who presented to the emergency department at [facility] on 08/11/2025 for recurrent perineal abscess/infection. Patient has a significant medical history of diabetes that is not well-controlled as well as perineal cellulitis with history of necrotizing fasciitis to the buttocks in 2020. She had extensive debridement at that time which resulted needing colostomy. That has been reversed. She again was hospitalized at this institution in September 2024 with another infection. Patient noted the day prior to presentation she felt a small lump under the area of her right thigh that was slowly getting enlarged therefore she decided to come in for further evaluation before got that hand. Vital signs on presentation showed temperature 98.8, heart rate 125, respiratory 22, blood pressure was 180/98 and pulse ox was 99% room air. CBC on presentation was unimpressive however she did have a left shift with an 82% neutrophilia. Chemistry panel showed hyponatremia with a sodium of 129 however blood sugar was 527 consistent with pseudohyponatremia due to hyperglycemia. Her chloride was low at 94, serum bicarb was 16.4 and anion gap was 19. The beta-hydroxybutyrate was assessed and found to be slightly elevated at 2.6. Patient did not have symptoms consistent with DKA and a blood gas was obtained and she was alkalotic. She had not been eating so it suspected that this may be a starvation ketosis. A CRP was obtained and found to be 121. She was admitted to medical floor and placed on broad-spectrum antibiotics. An A1c was obtained and found to be 13.8. I highly suspect patient has not been super compliant with her insulin at home. She did state that her fasting sugars had been 120-130 but she creeped up throughout the day. I am not sure that this is consistent with what we are seeing clinically. On day 2 of her hospitalization she was complaining of more pain in the area that was assessed. It appeared that the indurated area had come to ahead and there was subcutaneous pus. General surgery was consulted and an I&D was performed. Cultures were sent from the abscess. Cultures at the time of discharge showed group B strep as well as alphahemolytic strep. On day 3 of her hospitalization she had some worsening of pain and erythematous extension from the area of I&D so ID was consulted she was maintained on Vanco and Zosyn which she was started on admission.. By day 4 of her hospitalization she was feeling much better with only mild tenderness in that area. Recommendation to discharge her antibiotics were Augmentin for total of 10 days from the day of her I&D. She was sent home with 7 more days of Augmentin. She and I discussed extensively her hyperglycemia and its role in recurrent infections. She is agreeable to follow-up with endocrinology. I did give her Dr. Ambrosio Marques's information and the plan is to follow-up with her as an outpatient after discharge. She is to call tomorrow to set up an appointment. Her blood pressure was also somewhat elevated so we did increase her lisinopril from 5 mg to 10 mg daily. Prescriptions for her med changes and antibiotics were sent to the local pharmacy prior to discharge. Patient was discharged home in stable condition with wound care instructions at the time of discharge. She is to follow-up with Dr. Cam from general surgery within 2 weeks, primary care physician as needed, and Dr. Marques as soon as Dr. Marques has availability. Discharge diagnoses: Cellulitis/abscess of the perineum secondary to group B strep/alphahemolytic strep Low serum bicarb-resolved Elevated sdnr-iznstrnjmpcwyzg-yzbecit related to starvation ketosis Uncontrolled DM-A1c 13.8 Essential hypertension Hyperlipidemia Neuropathy Obesity Physical Exam Const alert, oriented x3, no apparent distress, no limitations and well nourished; Negative for average body habitus or healthy appearing Constitutional Narrative: Obese, middle-aged, white female, sitting up in bed, appears comfortable, nontoxic, very pleasant, watching television General Appearance: cooperative, comfortable, well kempt and well developed Exam Limitations: no limitations Nutritional Appearance: obese HEENT normocephalic, head/scalp atraumatic, hearing grossly normal bilaterally and moist oral mucous membranes HEENT Narrative: Mallampati 3, no thrush Eyes EOMs intact bilaterally Eyes Narrative: No scleral icterus Neck supple Neck Narrative: Trachea midline Resp normal respiratory effort, normal air movement, no retractions, no use of accessory muscles and clear to auscultation bilaterally Auscultation: Negative for crackles, rhonchi or wheezes Cardio regular rate, regular rhythm, S1 normal heart sound, S2 normal heart sound, no murmurs, no rub, no gallops and no clicks GI normal to inspection, nondistended, normoactive bowel sounds, soft to palpation and non-tender Extremity no clubbing, cyanosis or edema Extremity Narrative: Pedal and radial pulses are 2+ Skin No no wounds and no jaundice Skin Narrative: Right thigh/buttocks area with improved, no significant drainage from the area of I&D, mild erythema but no induration and significant retraction from outlined area, decreased tenderness Neuro moves all extremities and no focal motor deficits Speech: speech normal Psych mental status grossly normal and affect normal Psych Narrative: Very pleasant, interacts appropriately Weight / BMI Weight Weight: 105.596 kg Body Mass Index (BMI) 35.4 ABG / Lab / Microbiology Data 08/15/25 05:57 08/15/25 05:57 Laboratory: Laboratory Results - last 24 hr 08/14/25 16:14: POC Glucose 120 H 08/14/25 17:08: Vancomycin Trough 21.9 H 08/14/25 22:39: POC Glucose 191 H 08/15/25 00:55: Random Vancomycin 15.6 H 08/15/25 05:57: WBC 6.0, RBC 4.03 L, Hgb 11.8 L, Hct 34.8 L, MCV 86.4, MCH 29.3, MCHC 33.9, RDW Std Deviation 41.6, RDW Coeff of Meet 13.2, Plt Count 204, MPV 11.0, Immature Gran % (Auto) 0.500, Neut % (Auto) 69.0, Lymph % (Auto) 18.5 L, Prentiss % (Auto) 8.8, Eos % (Auto) 2.7, Baso % (Auto) 0.5, Absolute Neuts (auto) 4.2, Absolute Lymphs (auto) 1.11, Nucleated RBC % 0, Sodium 139, Potassium 3.6, Chloride 107, Carbon Dioxide 22.8, Anion Gap 9, BUN 10, Creatinine 1.13, Estim Creat Clear Calc 79.97, Est GFR (MDRD) Non-Af 61, BUN/Creatinine Ratio 8.5 L, Glucose 140 H, Calcium 8.5 08/15/25 08:07: POC Glucose 110 H Microbiology: Microbiology 08/12/25 18:20 Abs - Buttock Gram Stain - Final 08/12/25 18:20 Abs - Buttock Wound Culture - Preliminary Streptococcus group B Alpha hemolytic organism 08/12/25 18:20 Abs - Buttock Anaerobic Culture - Preliminary Checking for anaerobes, further studies to follow. D/C Instructions Discharge Activity: Return to Normal Activity Return to work on: 08/16/25 DC O2, CPAP, BIPAP Needs Home O2 Discharge instructions: No DC home with Oxygen: No Meaningful Use Info Meaningful Use Meaningful Use Diagnoses (Choose all that apply): None applicable Discharge Plan Admission Admit Date/Time: 08/11/25 18:20 Primary Reason for Your Visit: Abscess Attending Provider: Chantel Hand Primary Care Provider: Joaquin Huitron Consulting Providers: Elias Barahona; Werner Cam; Fran Daley Instructions Additional Instructions / Restrictions: Recommend continuing to keep the open wound covered until completely closed Change dressing daily May leave dressing off to shower Follow-up with Dr. Cam or Grace Piña in 7-10 days [address] Please call Dr. Marques's office to set up an appointment as an outpatient to be seen a soon as possible 2. Please complete antibiotics as ordered. Encourage probiotics or yogurt intake to prevent antibiotic associated diarrhea Discharge Orders/Prescriptions Prescriptions: New oxycodone 5 mg Tablet 5 mg PO Q4H PRN PRN (Reason: Pain Score 4-10) 3 Days Qty: 18 0RF amoxicillin-pot clavulanate 875-125 mg tablet 1 tab PO BID Qty: 14 0RF lisinopril 10 mg Tablet 10 mg PO DAILY Qty: 30 2RF Discontinued lisinopril 5 mg tablet 5 mg PO DAILY No Action insulin lispro [Humalog KwikPen Insulin] 100 unit/mL insulin pen 44 unit SUBCUT TID Patient Comments: INJECT 44 UNITS SUBCUTANEOULSY WITH MEALS insulin glargine [Basaglar KwikPen U-100 Insulin] 100 unit/mL (3 mL) insulin pen 66 unit SUBCUT BID Patient Comments: INJECT 40 UNITS SUBCUTANEOUSLY TWICE DAILY atorvastatin 10 mg tablet 10 mg PO QHS ropinirole 0.5 mg tablet 1.5 mg PO QHS insulin degludec [Tresiba FlexTouch U-100] 100 unit/mL (3 mL) insulin pen 64 unit subcut BID Referrals / Follow Up: Joaquin Huitron MD [Primary Care Provider, Family Practice] - See Referral Note Referral Note: As needed Werner Cam MD [Med Staff - Active Staff, General Surgery] - 08/22/25 Ambrosio Marques MD [Med Staff - Courtesy Staff, Endocrinology] - See Referral Note Referral Note: Call for appointment to be seen as soon as possible Disposition Disposition (needs filled in before D/C Order can be placed): Home, Self Care Charges/Coding Visit Charges Inpatient E&M: 10036 Disch Hosp >30min
== END 2025-08-15 12:57 | disposition home or self-care (01) | DRG 603 ==
LOC: ED 14:43 → MS3 18:44
PROVIDERS: Admitting Provider Hospitalist; Emergency Provider Emergency Medicine; PCP Family Medicine; Visit Provider Internal Medicine
DX: L03.315 Cellulitis of perineum (principal); E87.1 Hypo-osmolality and hyponatremia; E10.65 Type 1 diabetes mellitus with hyperglycemia; E66.812 Obesity, class 2; E10.40 Type 1 diabetes mellitus with diabetic neuropathy, unspecified; B95.1 Streptococcus, group B, as the cause of diseases classified elsewhere; I10 Essential (primary) hypertension; G25.81 Restless legs syndrome; E78.5 Hyperlipidemia, unspecified; Z79.4 Long term (current) use of insulin; L02.215 Cutaneous abscess of perineum; Z68.35 Body mass index [BMI] 35.0-35.9, adult; Z79.01 Long term (current) use of anticoagulants; Z83.3 Family history of diabetes mellitus; Z86.14 Personal history of Methicillin resistant Staphylococcus aureus infection; Z98.51 Tubal ligation status; Z90.49 Acquired absence of other specified parts of digestive tract
CPT/HCPCS: 36415; 74177; 80048; 80053; 80202; 81001; 82010; 82803; 82962; 83036; 83605; 83735; 84100; 84703; 85025; 85027; 85610; 85730; 86140; 87040; 87070; 87075; 87077; 87186; 87205; 97802; 99284; Q9967; A4216; J0295; J2405

== ENCOUNTER 2025-08-24 14:31 | Emergency (ER) | payer OTHER, SELFPAY ==
[2025-08-24] VITALS (7 sets, daily range): BP systolic 158–187; BP diastolic 74–90; PULSE 86–108; RESP 16–18; TEMP 36.9–37.1; O2SAT 94–100; BMI 37.4
[2025-08-24 15:39] LABS: Hematocrit 35.7 % (37-47); Hemoglobin 11.7 g/dL (12.0-15.0); Immature Granulocytes Count 0.150 X10^3/uL (0.0-0.0); Mean Corp Hgb Conc 32.8 g/dL (32-36); Mean Corpuscular Volume 86.9 fL (81-99); Mean Platelet Vol. 9.6 fl (6.2-12.0); NRBC Flagged by Analyzer 0 % (0-5); Platelet Count 354 K/mm3 (150-450); RBC Distribution Width CV 12.7 % (11.6-14.6); RBC Distribution Width SD 40.0 fl (35.1-43.9); Red Blood Count 4.11 M/mm3 (4.2-5.4); White Blood Count 9.5 K/mm3 (4.4-11.0)
[2025-08-24 16:21] LABS: Anion Gap 11 (5-15); BUN 25 mg/dL (4-19); BUN/Creat Ratio 27.8 RATIO (10-20); Calcium,Total 9.4 mg/dL (7.6-11.0); Carbon Dioxide 24.5 mmol/L (21.0-32.0); Chloride 103 mmol/L (98-108); Estimated Creatinine Clearance 105.75 ml/min (50-250); Glucose 92 mg/dL (70-99); Potassium 4.0 mmol/L (3.3-5.1)
--- NOTE | 2025-08-24 16:32 | EX.ED.DYSGE1 ---
HPI History of Present Illness Chief Complaint: Wound Check Informant: patient Narrative Narrative: Patient is a 45-year-old female with history of necrotizing fasciitis, type 1 diabetes mellitus and recent cellulitis/abscess of the left buttock/perineal area. She was admitted 08/11 through 08/15. She had a bedside I&D performed by Dr. Cam and was discharged with a 7-day course of Augmentin. She notes that over the past few days she has had worsening fatigue, body aches, feeling flushed and having intermittent headaches as well as feeling freezing. She did have an episode of vomiting this morning. States her blood sugars have been doing good and her fasting blood sugar this morning was 112 when she was 98 before coming in. She notes that her skin has been peeling over her right buttocks for the past few days almost like a sunburn. She notes that she is continue to have drainage from her I&D site on her left buttock/perineal area. She notes that that she started to feel better. She initially went to urgent care today because of the skin changes however they recommend she came to the emergency room associate as she is tachycardic and with her medical history. She does note that she has been feeling winded for the past few days and cannot seem to get enough air. She denies any chest pain. Denies any swelling of her legs. Denies history of DVT or PE. Not on any blood thinners. Denies any lightheadedness or dizziness. No other complaints or concerns reported this time [facility] Medical History Abscess Diabetes mellitus type 1 Abscess or cellulitis of perineum Abscess of deep perineal space Physical exam, pre-employment History of necrotising fasciitis Current use of insulin Diabetes Home Medications ?Medication ?Instructions ?Recorded ?Last Taken ?Type insulin glargine 100 unit/mL (3 66 unit subcut BID diabetes 04/23/21 08/11/25 07:30 History mL) subcutaneous pen (Basaglar KwikPen U-100 Insulin) insulin lispro 100 unit/mL 44 unit subcut TID 04/23/21 09/16/24 History subcutaneous pen (Humalog KwikPen (U-100) Insulin) atorvastatin 10 mg tablet 10 mg PO QHS 09/14/21 09/15/24 History ropinirole 0.5 mg tablet 1.5 mg PO QHS nerve pain 09/16/24 08/10/25 20:00 History insulin degludec 100 unit/mL (3 64 unit subcut BID 08/11/25 Unknown History mL) subcutaneous pen (Tresiba FlexTouch U-100 insulin) amoxicillin 875 mg-potassium 1 tab PO BID #14 tabs 08/15/25 Unknown Rx clavulanate 125 mg tablet lisinopril 10 mg tablet 10 mg PO DAILY #30 tabs 08/15/25 Unknown Rx oxycodone 5 mg tablet 5 mg PO Q4H PRN PRN Pain Score 08/15/25 Unknown Rx 4-10 3 days #18 tabs clotrimazole 1 % topical cream 1 applic topical BID 2 weeks #30 08/24/25 Unknown Rx grams Allergy/AdvReac Type Severity Reaction Status Date / Time metformin AdvReac Nausea Verified 08/24/25 14:32 Family History Other Breast cancer Diabetes Surgical History History of cholecystectomy History of colostomy reversal History of colostomy S/P tubal ligation H/O: Social History adopted: No household members: spouse and children housing: house number of children: 2 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 pets and animals: No leisure activities: art, games and volunteer work history of recent travel: No sexually active: Yes Smoking Status: Never smoker ROS ROS ED Constitutional Constitutional ED: Reports chills and sweats; Denies fever(s) Cardiovascular Cardiovascular: Denies chest pain or palpitations Respiratory/Chest Respiratory/Chest: Reports dyspnea; Denies cough or sputum Gastrointestinal Gastrointestinal: Reports nausea and vomiting; Denies abdominal pain or diarrhea Genitourinary Genitourinary ED: Denies dysuria or hematuria Musculoskeletal Musculoskeletal: Denies arthralgias or myalgias Integumentary Reports rash Neurologic Neurologic: Denies paresthesias Hematologic/Lymphatic Hematologic/Lymphatic: Denies easy bleeding or easy bruising EXAM Physical Exam Const Vital Signs: 08/24/25 14:32 08/24/25 16:21 08/24/25 16:32 Temperature 98.7 F 98.4 F Temperature Source Oral Oral Pulse Rate 108 H 102 H 103 H Respiratory Rate 18 18 Blood Pressure 187/90 H 180/85 H 173/86 H Blood Pressure Mean 122 116 115 Pulse Ox 100 98 96 Oxygen Delivery Method Room Air Room Air Room Air 08/24/25 17:00 08/24/25 17:59 08/24/25 20:00 Temperature 98.4 F Temperature Source Oral Pulse Rate 94 94 87 Respiratory Rate 18 16 18 Blood Pressure 173/86 H 186/82 H 168/74 H Blood Pressure Mean 115 116 105 Pulse Ox 94 100 99 Oxygen Delivery Method Room Air Room Air Room Air 08/24/25 21:18 Temperature 98.7 F Temperature Source Pulse Rate 86 Respiratory Rate 16 Blood Pressure 158/74 H Blood Pressure Mean 102 Pulse Ox 97 Oxygen Delivery Method Positive well nourished and well developed General Appearance ED: well developed and NAD HEENT Reports moist mucous membranes HEENT Narrative: flushed cheeks. No oral lesions appreciated Eyes PERRL Neck supple and no JVD Chest Wall inspection of chest normal and palpation of chest normal Resp normal respiratory effort Resp Narrative: mild crackles right mid lung Cardio regular rhythm Rate: tachycardic GI normal to inspection, nondistended, normoactive bowel sounds and non-tender Extremity normal to inspection General Extremety ED: Negative for edema General Extremity: Negative for edema Neuro oriented x3 Sensorium / Orientation: alert Motor Exam: Negative for general weakness Psych mental status grossly normal Skin Skin Narrative: Intertrigo of the bilateral groins. Of the left medial buttocks area there is an open wound with some granulation tissue present. No associated tenderness or fluctuance. No surrounding erythema. Is consistent with her recent abscess/I&D. On the right buttocks there is an area slight desquamation/dry skin that extends most of the inferior buttocks and upper thigh. No associated erythema or warmth. No significant tenderness palpation. No bullae present. MDM MDM MDM Narrative Medical decision making narrative: Patient is a 45-year-old type I diabetic with history of necrotizing fasciitis and recent admission for abscess and cellulitis. She is presenting because she is not feeling well and has a rash which she is concerned for a yeast infection in her groin area. Differential includes worsening abscess, intertrigo, yeast infection, pulmonary emboli (has reported shortness of breath and had recent hospitalization), symptomatic anemia and other infection or viral syndrome. CBC shows a normal white blood cell count of 9.5 and a stable knee with a hemoglobin 11.7. She does have a bump in her immature granulocytes however she is afebrile in the emergency room. Her D-dimer is elevated at 1.24 and CTA of the chest is ordered as well as CT of the pelvis for further evaluation of her buttocks wound make sure there is not a deeper abscess that I cannot appreciate physical exam. BMP largely normal. Glucose is normal. Her CRP is actually significantly downtrending is now 19.5 (was 112 two weeks ago). Patient given Tylenol and Zofran in the emergency room with improvement of her symptoms. CT imaging of the chest does not show any PE but does show small bilateral pleural effusions with no airspace disease. This could be related to her shortness of breath and associated recent IV fluids. She also has a left thyroid nodule which she is informed up for nonemergent outpatient follow-up. Pelvis CT shows no significant change of induration of the medial right gluteal perianal soft tissues with no drainable fluid collection or abscess or subcutaneous emphysema. Patient reevaluated. Heart rate has improved while in the emergency room. At this time will be discharged home. She has follow-up with surgery this coming week. At this time I do not think she needs another course of antibiotics as I do not have a source of infection. The rash on her left buttocks is more consistent with dry skin and not consistent at this time with SSSS. She has not any mucosal involvement concerning for 10/SJS S. She is negative Nikolsky sign. She does not have any diffuse skin changes concerning for dress syndrome or other drug reaction. Is started on clotrimazole for her intertrigo and given nystatin for initial application while the emergency room. Lab Data Attestation: I reviewed the patient's lab results. Labs: Laboratory Results - last 24 hr 08/24/25 08/24/25 15:30 16:33 WBC 9.5 RBC 4.11 L Hgb 11.7 L Hct 35.7 L MCV 86.9 MCH 28.5 MCHC 32.8 RDW Std Deviation 40.0 RDW Coeff of Meet 12.7 Plt Count 354 MPV 9.6 Immature Gran % (Auto) 1.600 H Neut % (Auto) 66.5 Lymph % (Auto) 23.8 [place] % (Auto) 5.8 Eos % (Auto) 1.7 Baso % (Auto) 0.6 Absolute Neuts (auto) 6.3 Absolute Lymphs (auto) 2.26 Nucleated RBC % 0 D-Dimer Quant (PE/DVT) 1.24 H* Sodium 138 Potassium 4.0 Chloride 103 Carbon Dioxide 24.5 Anion Gap 11 BUN 25 H Creatinine 0.88 Estim Creat Clear Calc 105.75 Est GFR (MDRD) Non-Af 82 BUN/Creatinine Ratio 27.8 H Glucose 92 Lactic Acid 1.4 Calcium 9.4 Total Bilirubin 0.18 Direct Bilirubin < 0.08 AST 26 ALT 35 Alkaline Phosphatase 81 C-React Prot Ext Range 19.50 H Total Protein 7.4 Albumin 3.8 Globulin 3.5 Lipase 66 Radiography Diagnostic Testing: Clinical Impression(s) from Imaging Studies Chest CTA 08/24/25 16:52 IMPRESSION: 1. No pulmonary arterial emboli identified. 2. Small bilateral pleural effusions. No airspace disease. 3. No thoracic lymphadenopathy. 4. Left thyroid nodular lesion measuring 2.8 cm, may be further assessed with ultrasound. Reading Location: [facility] Pelvis CT 08/24/25 16:52 IMPRESSION: Induration in the medial right gluteal perianal soft tissues, no significant change from prior exam. No drainable fluid collection/abscess or subcutaneous emphysema. Ancillary findings as above. Reading Location: [facility] Discharge Plan Triage Chief Complaint: Wound Check ED Provider: Kandace Odonnell Dx/Rx/DC Orders Clinical Impression: Intertrigo of genitocrural region, Rash, Pleural effusion, Left thyroid nodule Instructions: ED Dana Skin Infection (Adult), ED Wound Check (No Infection) Prescriptions: New clotrimazole 1 % cream 1 applic topical BID 14 Days Qty: 30 0RF No Action insulin lispro [Humalog KwikPen Insulin] 100 unit/mL insulin pen 44 unit SUBCUT TID Patient Comments: INJECT 44 UNITS SUBCUTANEOULSY WITH MEALS insulin glargine [Basaglar KwikPen U-100 Insulin] 100 unit/mL (3 mL) insulin pen 66 unit SUBCUT BID Patient Comments: INJECT 40 UNITS SUBCUTANEOUSLY TWICE DAILY atorvastatin 10 mg tablet 10 mg PO QHS ropinirole 0.5 mg tablet 1.5 mg PO QHS insulin degludec [Tresiba FlexTouch U-100] 100 unit/mL (3 mL) insulin pen 64 unit subcut BID oxycodone 5 mg Tablet 5 mg PO Q4H PRN PRN (Reason: Pain Score 4-10) 3 Days Qty: 18 0RF amoxicillin-pot clavulanate 875-125 mg tablet 1 tab PO BID Qty: 14 0RF lisinopril 10 mg Tablet 10 mg PO DAILY Qty: 30 2RF Primary Care Provider: Joaquin Huitron Referrals: Joaquin Huitron MD [Primary Care Provider, [facility]] Activity Restrictions/Additional Instructions: Follow-up later this week for wound care as we discussed. If you develop fever or have any worsening symptoms please not hesitate to return to the emergency room for wound check. Your lab work today was overall very reassuring. Your CT did show small amount of fluid on the lungs which could be causing some shortness of breath. This can continue to be monitored but likely associated with your recent hospitalization and IV fluids. It should improve as you resume your normal activities. There was incidental finding of a left thyroid nodule that needs to be followed up with your primary care doctor. Likely this just needs an ultrasound. Print Language: Spanish Disposition Disposition: Home, Self Care Discharge Date/Time: 08/24/25 21:28
--- OUTSIDE RECORDS SUMMARY | 2025-08-24 16:35 | XMS RPT_ITS | CCD ---
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 cervix] Onset: 02-03-2024 Episodic Other upper respiratory infections (1 source) Chronic sinusitis; Translations: [Chronic sinusitis, unspecified] Chronic Other upper respiratory infections (1 source) Sore throat symptom; Translations: [Acute pharyngitis, unspecified] 07-11-2024 Episodic Phlebitis; thrombophlebitis and thromboembolism (6 sources) Thrombosis of vein of upper limb; Translations: [Acute embolism and thrombosis of superficial veins of left upper extremity] 09-14-2021 Episodic Residual codes; unclassified (1 source) History of hernia repair; Translations: [Other specified postprocedural states] Episodic Residual codes; unclassified (1 source) Past history of procedure; Translations: [Other specified postprocedural states] Episodic Septicemia (except in labor) (6 sources) Sepsis; Translations: [Sepsis, unspecified organism] 05-01-2021 Episodic Skin and subcutaneous tissue infections (20 sources) Abscess of buttock; Translations: [Cutaneous abscess of buttock] Onset: 05-03-2021 05-03-2021 Episodic Sprains and strains (3 sources) Strain of muscle(s) and tendon(s) of the rotator cuff of left shoulder, subsequent encounter; Translations: [Other specified aftercare] 06-03-2023 Episodic Superficial injury; contusion (17 sources) Seroma; Translations: [Contusion of abdominal wall, subsequent encounter] Episodic Unclassified (20 sources) Type 2 diabetes mellitus without complication; Translations: [Diabetes mellitus type 2, uncontrolled, without complications] Onset: 03-09-2012 07-17-2015 Unclassified (1 source) As needed Unclassified (1 source) Call for appointment to be seen as soon as possible Past or Other Problems Problem Classification Problem Date Documented Da te Episodic/Chronic Abdominal hernia (20 sources) Hernia of anterior abdominal wall; Translations: [Ventral hernia without obstruction or gangrene] Onset: 04-22-2022 Episodic Abdominal pain (6 sources) Abdominal wall pain; Translations: [Unspecified abdominal pain] Onset: 01-17-2025 09-07-2022 Episodic Anal and rectal conditions (2 sources) [...] Patient encounter status 03-12-2025 Urinary tract infections (20 sources) Urinary tract infectious disease; Translations: [Urinary tract infection, site not specified] Onset: 09-22-2023 Episodic Results Test Name Value Interpretation Reference Range Facility Culture, Anaerobic Any Sourc yuliya 08-17-2025 CUAN No anaerobic bacteri a isolated. Normal [facility] Comment on above: Performed By: #### L 501.080 #### [facility] [address] [place], [address] Wound Cultureon 08-17-2025 WC #2 Organism is too fastidious for routine susceptibility studies. Clinical correlation necessary, Possible skin contamination. Wound Culture Wound Culture Streptococcus agalactiae (B) Amount Growth 3+ Rothia kristinae Rothia kristinae Streptococcus agalactiae (B): REACTION Ampicillin Islt BLANQUITA <=0.25 S cefTRIAXone Islt BLANQUITA <=0.12 Clindamycin Islt BLANQUITA <=0.25 S Clindamycin.induced Susc Islt NEG Linezolid Islt BLANQUITA <=2 S Vancomycin Islt BLANQUITA 0.[address] [facility] Comment on above: Performed By: #### L 501.080 #### [facility] [address] [place], [place], [address] Culture, Blood (WB)on 2024 CUB Blood cultures x2, f rom two different sites No growth in [address] [facility] Comment on above: Performed By: #### L 501.080 #### [facility] [address] [place], [address] Absolute lymphocyte countOrd ered By: Chantel Hand on 08-15-2025 Lymphocytes Auto (Unsp spec) [#/Vol] 1.11 10*3/uL 0.83-4.51 [facility] Absolute neutrophil countOrd ered By: Chantel Hand on 08-15-2025 Neutrophils (Bld) [#/Vol] 4.2 10*3/uL 2.0-7.7 [facility] Anion gap in Serum or Plasma Ordered By: Chantel Hand on 08-15-2025 Anion gap [Moles/Vol] 9 mmol/L 5-[address] [facility] Automated lymphocyte count a s percentage of total leukocytesOrdered By: Chantel Hand on 08-15-2025 Lymphocytes/100 WBC Auto (Unsp spec) 18.5 % Low 19-41 [facility] BUN/creatinine ratioOrdered By: Chantel Hand on 08-15-2025 Urea nitrogen/Creatinine [Mass ratio] 8.5 mg/mg Low 10-20 [facility] Basic Metabolic Profile (BMP )on 08-15-2025 BUN/CRE 8.5 RATIO Low 08-26 [facility] Comment on above: Performed By: #### L 400.0001 #### [facility] [address] [place], [place], [id number] Calcium [Mass/Vol] 8.5 mg/dL Normal 7.6-11.0 [facility] Comment on above: Performed By: #### L 400.0001 #### [facility] [address] [place], [address] Chloride [Moles/Vol] 107 mmol/L Normal 98-108 [facility] Comment on above: Performed By: #### L 400.0001 #### [facility] [address] [place], [address] CO2 [Moles/Vol] 22.8 mmol/L Normal 21.0-32.0 [facility] Comment on above: Performed By: #### L 400.0001 #### [facility] [address] [place], [address] Creatinine [Mass/Vol] 1.13 mg/dL Normal 0.70-1.[address] [facility] Comment on above: Performed By: #### L 400.0001 #### [facility] [address] [place], [address] ECRCL 79.97 ml/min Normal 50-250 [facility] Comment on above: Performed By: #### L 400.0001 #### [facility] [address] [place], [address] GAP 9 Normal 5-15 [facility] Comment on above: Performed By: #### L 400.0001 #### [facility] [address] [place], [address] GFR/1.73 sq M.predicted among non-blacks MDRD (S/P/Bld) [Vol rate/Area] 61 mL/min/{1.73_m2} Normal >60 [facility] Comment on above: Result Comment: mL/m in/1.73m2 CKD-EPI Creatinine Equation (2020) Performed By: #### L 400.0001 #### [facility] [address] [place], [address] Glucose [Mass/Vol] 140 mg/dL High 70-99 [facility] Comment on above: Performed By: #### L 400.0001 #### [facility] [address] [place], [address] Potassium [Moles/Vol] 3.6 mmol/L Normal 3.3-5.[address] [facility] Comment on above: Performed By: #### L 400.0001 #### [facility] [address] [place], [address] Sodium [Moles/Vol] 139 mmol/L Normal 133-145 [facility] Comment on above: Performed By: #### L 400.0001 #### [facility] [address] [place], [address] Urea nitrogen [Mass/Vol] 10 mg/dL Normal 4-19 [facility] Comment on above: Performed By: #### L 400.0001 #### [facility] [address] [place], [address] Basophil percentageOrdered B y: Chantel Hand on 08-15-2025 Basophils/100 WBC (Bld) 0.5 % 0-1 [facility] Bedside Glucoseon 08-15-2025 FINGERSTICK GLU 110 mg/dL High 74-106 [facility] Comment on above: Result Comment: EMMA GEMENT OF PATIENT CARE PER NURSING PROTOCOL Performed By: #### L 501.080 #### [facility] [address] [place], [address] FINGERSTICK GLU 191 mg/dL High 74-106 [facility] Comment on above: Result Comment: EMMA GEMENT OF PATIENT CARE PER NURSING PROTOCOL Performed By: #### L 501.080 #### [facility] [address] [place], [address] CBC W/Diff, Automatedon 10-0 Absolute Lymph 1.11 X10 3/uL Normal 0.83-4.51 [facility] Comment on above: Performed By: #### L 400.0001 #### [facility] [address] [place], [address] Absolute Neut 4.2 X10 3/uL Normal 2.0-7.7 [facility] Comment on above: Performed By: #### L 400.0001 #### [facility] [address] [place], [address] Basophils/100 WBC (Bld) 0.5 % Normal 0-1 [facility] Comment on above: Performed By: #### L 400.0001 #### [facility] [address] [place], [address] Eosinophils/100 WBC (Bld) 2.7 % Normal 0-5 [facility] Comment on above: Performed By: #### L 400.0001 #### [facility] [address] [place], [address] Erythrocyte distribution width (RBC) [Ratio] 13.2 % Normal 11.6-14.6 [facility] Comment on above: Performed By: #### L 400.0001 #### [facility] [address] [place], [address] Hematocrit (Bld) [Volume fraction] 34.8 % Low 37-47 [facility] Comment on above: Performed By: #### L 400.0001 #### [facility] [address] [place], [address] Hemoglobin (Bld) [Mass/Vol] 11.8 g/dL Low 12.0-15.0 [facility] Comment on above: Performed By: #### L 400.0001 #### [facility] [address] [place], [address] IG% 0.500 Normal 0.0-0.9 [facility] Comment on above: Result Comment: IG% - Immature Granulocytes (promyelocytes, myelocytes and metamyelocytes) > 1% indicates that a LEFT SHIFT is Present. Performed By: #### L 400.0001 #### [facility] [address] [place], [address] Lymphocytes/100 WBC (Bld) 18.5 % Low 19-41 [facility] Comment on above: Performed By: #### L 400.0001 #### [facility] [address] [place], [address] MCH (RBC) [Entitic mass] 29.3 pg Normal 27.0-32.0 [facility] Comment on above: Performed By: #### L 400.0001 #### [facility] [address] [place], [address] MCHC (RBC) [Mass/Vol] 33.9 g/dL Normal 32-[address] [facility] Comment on above: Performed By: #### L 400.0001 #### [facility] [address] [place], [address] MCV (RBC) [Entitic vol] 86.4 fL Normal 81-99 [facility] Comment on above: Performed By: #### L 400.0001 #### [facility] [address] [place], [address] Monocytes/100 WBC (Bld) 8.8 % Normal 0-10 [facility] Comment on above: Performed By: #### L 400.0001 #### [facility] [address] [place], [address] Neutrophils/100 WBC (Bld) 69.0 % Normal 47-70 [facility] Comment on above: Performed By: #### L 400.0001 #### [facility] [address] [place], [address] Nucleated RBC (Bld) [#/Vol] 0 10*3/uL Normal 0-5 [facility] Comment on above: Performed By: #### L 400.0001 #### [facility] [address] [place], [address] Platelet mean volume (Bld) [Entitic vol] 11.0 fL Normal 6.2-12.0 [facility] Comment on above: Performed By: #### L 400.0001 #### [facility] [address] [place], [address] Platelets (Bld) [#/Vol] 204 10*3/uL Normal 150-450 [facility] Comment on above: Performed By: #### L 400.0001 #### [facility] [address] [place], [address] RBC (Bld) [#/Vol] 4.03 10*6/uL Low 4.2-5.4 [facility] Comment on above: Performed By: #### L 400.0001 #### [facility] [address] [place], [address] RDW SD 41.6 fl Normal 35.1-43.9 [facility] Comment on above: Performed By: #### L 400.0001 #### [facility] [address] [place], [address] WBC (Bld) [#/Vol] 6.0 10*3/uL Normal 4.4-11.0 [facility] Comment on above: Performed By: #### L 400.0001 #### [facility] [address] [place], [address] Carbon dioxide, total [Moles /volume] in Central venous bloodOrdered By: Chantel Hand on 08-15-2025 CO2 [Moles/Vol] 22.8 mmol/L 21.0-32.0 [facility] Chloride assayOrdered By: Perri Hand on 08-15-2025 Chloride [Moles/Vol] 107 mmol/L 98-108 [facility] Eosinophil percentageOrdered By: Chantel Hand on 08-15-2025 Eosinophils/100 WBC (Bld) 2.7 % 0-5 [facility] Erythrocyte distribution wid th ratioOrdered By: Chantel Hand on 08-15-2025 Erythrocyte distribution width (RBC) [Ratio] 13.2 % 11.6-14.6 [facility] Erythrocyte distribution wid th standard deviationOrdered By: Chantel Hand on 08-15-2025 Erythrocyte distribution width (RBC) [Ratio] 41.6 fl 35.1-43.9 [facility] Glomerular filtration rate ( GFR) estimation/1.73 sq m using serum, plasma, or whole bOrdered By: Chantel Hand on 08-15-2025 GFR/1.73 sq M.predicted among non-blacks MDRD (S/P/Bld) [Vol rate/Area] 61 mL/min/{1.73_m2} >60 [facility] Comment on above: mL/min/1.73m2 CKD-EP I Creatinine Equation (2020) [facility] deOrdered By: Chantel Hand on 08-15-2025 Glucose [Mass/Vol] 110 mg/dL High 74-106 [facility] Comment on above: MANAGEMENT OF PATIEN T CARE PER NURSING PROTOCOL Hematocrit Auto (Bld) [Volum e fraction]Ordered By: Chantel Hand on 08-15-2025 Hematocrit (Bld) [Volume fraction] 34.8 % Low 37-47 [facility] Hemoglobin measurementOrdere d By: Chantel Hand on 08-15-2025 Hemoglobin (Bld) [Mass/Vol] 11.8 g/dL Low 12.0-15.0 [facility] Immature granulocytes/100 WB C Auto (Bld)Ordered By: Chantel Hand on 08-15-2025 Immature granulocytes/100 WBC (Bld) 0.500 % 0.0-0.9 [facility] Comment on above: IG% - Immature Granu locytes (promyelocytes, myelocytes and metamyelocytes) > 1% indicates that a LEFT SHIFT is Present. MCV (mean corpuscular volume ) determinationOrdered By: Chantel Hand on 08-15-2025 MCV (RBC) [Entitic vol] 86.4 fL 81-99 [facility] Mean corpuscular hemoglobin (MCH) determinationOrdered By: Chantel Hand on 08-15-2025 MCH (RBC) [Entitic mass] 29.3 pg 27.0-32.0 [facility] Mean corpuscular hemoglobin concentration (MCHC) determinationOrdered By: Chantel Hand on 08-15-2025 MCHC (RBC) [Mass/Vol] 33.9 g/dL 32-[address] [facility] Mean platelet volume determi nationOrdered By: Chantel Hand on 08-15-2025 Platelet mean volume (Bld) [Entitic vol] 11.0 fL 6.2-12.0 [facility] Monocyte percentageOrdered B y: Chantel Hand on 08-15-2025 Monocytes/100 WBC (Bld) 8.8 % 0-10 [facility] Neutrophil percentageOrdered By: Chantel Hand on 08-15-2025 Neutrophils/100 WBC (Bld) 69.0 % 47-70 [facility] Nucleated red blood cell per centageOrdered By: Chantel Hand on 08-15-2025 Nucleated RBC/100 WBC (Bld) [Ratio] 0 % 0-5 [facility] Platelet countOrdered By: Perri Hand on 08-15-2025 Platelets (Bld) [#/Vol] 204 10*3/uL 150-450 [facility] Potassium measurement (mass/ volume)Ordered By: Chantel Hand on 08-15-2025 Potassium (Unsp spec) [Mass/Vol] 3.6 mmol/L 3.3-5.1 [facility] RBC Auto (Bld) [#/Vol]Ordere d By: Chantel Hand on 08-15-2025 RBC (Bld) [#/Vol] 4.03 10*6/uL Low 4.2-5.4 [facility] Serum creatinine measurement (mass/volume)Ordered By: Chantel Hand on 08-15-2025 Creatinine [Mass/Vol] 1.13 mg/dL 0.70-1.[address] [facility] Serum glucose measurement (m ass/volume)Ordered By: Chantel Hand on 08-15-2025 Glucose [Mass/Vol] 140 mg/dL High 70-99 [facility] Serum or plasma calcium boogie urement (mass/volume)Ordered By: Chantel Hand on 08-15-2025 Calcium [Mass/Vol] 8.5 mg/dL 7.6-11.0 [facility] Serum or plasma urea nitroge n measurement (mass/volume)Ordered By: Chantel Hand on 08-15-2025 Urea nitrogen [Mass/Vol] 10 mg/dL 4-19 [facility] Serum or plasma vancomycin m easurement (mass/volume)Ordered By: Chantel Hand on 08-15-2025 Vancomycin [Mass/Vol] 15.6 ug/mL High 0.0-15.[address] [facility] Comment on above: VANCOMYCIN STANDARD DRUG THERAPY: CRITICAL VALUE IS > 15.0 mg/L VANCOMYCIN HIGH INTENSITY THERAPY: CRITICAL VALUE IS > 20.0 mg/L PLEASE CONTACT PHARMACY SERVICES (#[id number]) FOR INTERPRETATIONOF RESULTS. THIS RESULT DOES NOT REPRESENT A PEAK OR TROUGHLEVEL FOR THIS DRUG. Sodium levelOrdered By: Sandra Hand on 08-15-2025 Sodium [Moles/Vol] 139 mmol/L 133-145 [facility] Vancomycin, Random Levelon 1 VANCO, RANDOM 15.6 ug/mL High 0.0-15.0 [facility] Comment on above: Result Comment: VANC OMYCIN STANDARD DRUG THERAPY: CRITICAL VALUE IS > 15.0 mg/L VANCOMYCIN HIGH INTENSITY THERAPY: CRITICAL VALUE IS > 20.0 mg/L PLEASE CONTACT PHARMACY SERVICES (#[id number]) FOR INTERPRETATION OF RESULTS. THIS RESULT DOES NOT REPRESENT A PEAK OR TROUGH LEVEL FOR THIS DRUG. Performed By: #### L 400.0001 #### [facility] [address] [place], [place], [id number] White blood cell (WBC) count Ordered By: Chantel Hand on 08-15-2025 WBC (Bld) [#/Vol] 6.0 10*3/uL 4.4-11.0 [facility] Bedside Glucoseon 08-14-2025 FINGERSTICK GLU 120 mg/dL High 74-106 [facility] Comment on above: Result Comment: EMMA LINDQUIST OF PATIENT CARE PER NURSING PROTOCOL Performed By: #### L 501.080 #### [facility] [address] [place], [place], [address] FINGERSTICK GLU 126 mg/dL High 74-106 [facility] Comment on above: Result Comment: EMMA GEMENT OF PATIENT CARE PER NURSING PROTOCOL Performed By: #### L 501.080 #### [facility] [address] [place], [address] FINGERSTICK GLU 153 mg/dL High 74-106 [facility] Comment on above: Result Comment: EMMA GEMENT OF PATIENT CARE PER NURSING PROTOCOL Performed By: #### L 501.080 #### [facility] [address] [place], [address] Consultation - Infectious Dx on 08-14-2025 Consultation - Infectious Dx [facility] Medical Records Department [address] [place] [address] Consultation - Infectious Dx 08/14/25 1345 MR#: [id number] Acct: [id number] Name: TRICE ZAMBRANO Rep #: [id number] : 1980 45 From: Fran Daley MD PCP: Dr. Joaquin Huitron MD Status:ADM IN Location: [place] [address] Assessment Plan Assessment/Plan (1) Elevated beta-hydroxybutyrate: (2) Diabetes mellitus type 1: QUALIFIERS: Diabetes mellitus complication status: with other specified complication Qualified Code(s): E10.69 - Type 1 diabetes mellitus with other specified complication (3) Cutaneous abscess of perineum: PLAN: At risk for recurrent infections due to uncontrolled DM, a1c is 13.8, glucose was 527 on admit. Now s/p I D, wound cx with strep so far. On vanc/zosyn, will continue for now. Will follow, thank you HPI Consult Data Date of Consult: 08/14/25 HPI Narrative Reason for Consultation: perineal abscess HPI Narrative: TRICE ZAMBRANO, is a 45 F with h/o necrotizing fasciitis in 2020, perineal abscess in 2023, now again with several days progressive R buttock pain, redness, swelling with associated chills. No known inciting event. No drainage from site. Came to ED 08/11, had bedside I D done, on vanc/zosyn, but some increased redness seen now extending down R thigh. Full ROS performed and neg except as noted above. 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 History of necrotising fasciitis Current use of insulin Diabetes Home Medications ???Medication ???Instructions ???Recorded ???Last Taken ???Type insulin glargine 100 unit/mL (3 66 unit subcut BID diabetes 08/11/25 07:30 History mL) subcutaneous pen (Basaglar KwikPen U-100 Insulin) insulin lispro 100 unit/mL 44 unit subcut TID 04/23/21 History subcutaneous pen (Humalog KwikPen (U-100) Insulin) atorvastatin 10 mg tablet 10 mg PO QHS 09/14/21 09/15/24 His tory lisinopril 5 mg tablet 5 mg PO DAILY 09/14/21 09/15/24 Hi story ropinirole 0.5 mg tablet 1.5 mg PO QHS nerve pain 09/16/24 08/10/25 20:00 History insulin degludec 100 unit/mL (3 64 unit subcut BID 08/11/25 Unknow n History mL) subcutaneous pen (Tresiba FlexTouch U-100 insulin) Allergy/AdvReac Type Severity Reaction Status Date / Time metformin AdvReac Nausea Verified 08/11/25 13:16 Family History Other Breast cancer Diabetes Surgical [...] Extremity: Negative for edema Skin Skin Narrative: R perineal wound with some surrounding redness and induration, mild tenderness Neuro CN's II-XII intact bilaterally Lab / Micro Data Attestation: I reviewed the patient's lab results. 08/13/25 06:00 08/13/25 06:00 Labs: Laboratory Results - last 24 hr 08/13/25 16:00: POC Glucose 140 H 08/13/25 16:14: Vancomycin Trough 19.2 H 08/13/25 21:24: POC Glucose 187 H 08/14/25 06:22: POC Glucose 153 H 08/14/25 11:23: POC Glucose 126 H Micro: Microbiology 08/12/25 18:20 Abs - Buttock Gram Stain - Final 08/12/25 18:20 Abs - Buttock Wound Culture - Preliminary Streptococcus group B Alpha hemolytic organism 08/14/25 1350 Cosigner Signature (if applicable): CC: Dr. Joaquin Huitron MD Signed Normal [facility] Trough vancomycin levelOrder ed By: Chantel Hand on 08-14-2025 Vancomycin trough [Mass/Vol] 21.9 ug/mL High 5.0-15.0 [facility] Comment on above: Recommended goal tro ugh ranges are generally 10-15 mcg/ml for less severe/complicated infections such as cellulitis or UTI and 15-20 mcg/ml for more severe/complicated infections such as bacteremia/sepsis, osteomyelitis, pneumonia or meningitis. Goal trough ranges should take into account indication, patient-specific factors and organism BLANQUITA.VANCOMYCIN STANDARED DRUG THERAPY TROUGH LEVEL: 5.0 - 15.0 mg/L VANCOMYCIN HIGH INTENSITY THERAPY TROUGH LEVEL: 15.0 - 20.0 mg/L High Intensity therapy recommended for serious lifethreatening infections include:- Plplcvzbru-Cklcilszympo-Tcllgbvgs (Ventilator/Healtcare Associated)-Sepsis PLEASE CONTACT PHARMACY SERVICES (#[id number]) FOR INTERPRETATIONOF RESULTS. Vancomycin, Trough Levelon 1 VANCO, TROUGH 21.9 ug/mL High 5.0-15.0 [facility] Comment on above: Order Comment: 1730 Result Comment: Bebo mmended goal trough ranges are generally 10-15 mcg/ml for less severe/complicated infections such as cellulitis or UTI and 15-20 mcg/ml for more severe/complicated infections such as bacteremia/sepsis, osteomyelitis, pneumonia or meningitis. Goal trough ranges should take into account indication, patient-specific factors and organism BLANQUITA. VANCOMYCIN STANDARED DRUG THERAPY TROUGH LEVEL: 5.0 - 15.0 mg/L VANCOMYCIN HIGH INTENSITY THERAPY TROUGH LEVEL: 15.0 - 20.0 mg/L High Intensity therapy recommended for serious life threatening infections include: - Meningitis -Endocarditis -Pneumonia (Ventilator/Healtcare Associated) -Sepsis PLEASE CONTACT PHARMACY SERVICES (#[id number]) FOR INTERPRETATION OF RESULTS. Performed By: #### L 501.080 #### [facility] [address] [facility] [address] Bedside Glucoseon 08-13-2025 FINGERSTICK GLU 187 mg/dL [address] Comment on above: Result Comment: EMMA GEMENT OF PATIENT CARE PER NURSING PROTOCOL Performed By: #### L 501.080 #### [facility] [address] [facility] [address] FINGERSTICK GLU 140 mg/dL High [address] [place] [address] Comment on above: Result Comment: EMMA GEMENT OF PATIENT CARE PER NURSING PROTOCOL Performed By: #### L 501.080 #### [facility] [address] [facility] [address] FINGERSTICK GLU 186 mg/dL [address] Comment on above: Result Comment: EMMA GEMENT OF PATIENT CARE PER NURSING PROTOCOL Performed By: #### L 501.080 #### [facility] [address] [facility] [address] FINGERSTICK GLU 193 mg/dL High [address] [place] [address] Comment on above: Result Comment: EMMA GEMENT OF PATIENT CARE PER NURSING PROTOCOL Performed By: #### L 400.0001 #### [facility] [facility] [address] [place], [address] Bilirubin, totalOrdered By: Chantel Hand on 08-13-2025 Bilirubin [Mass/Vol] 0.32 mg/dL Normal 0.00-1.30 [facility] Comment on above: Performed By: #### L 501.080 #### [facility] [address] [place], [address] CBC W/Diff, Automatedon 10-0 Absolute Lymph 1.15 X10 3/uL Normal 0.83-4.51 [facility] Comment on above: Performed By: #### L 501.080 #### [facility] [address] [place], [address] Absolute Neut 6.3 X10 3/uL Normal 2.0-7.7 [facility] Comment on above: Performed By: #### L 501.080 #### [facility] [address] [place], [address] Basophils/100 WBC (Bld) 0.2 % Normal 0-1 [facility] Comment on above: Performed By: #### L 501.080 #### [facility] [address] [place], [address] Eosinophils/100 WBC (Bld) 0.9 % Normal 0-5 [facility] Comment on above: Performed By: #### L 501.080 #### [facility] [address] [place], [address] Erythrocyte distribution width (RBC) [Ratio] 13.2 % Normal 11.6-14.6 [facility] Comment on above: Performed By: #### L 501.080 #### [facility] [address] [place], [address] Hematocrit (Bld) [Volume fraction] 32.2 % Low 37-47 [facility] Comment on above: Performed By: #### L 501.080 #### [facility] [address] [place], [address] Hemoglobin (Bld) [Mass/Vol] 11.4 g/dL Low 12.0-15.0 [facility] Comment on above: Performed By: #### L 501.080 #### [facility] [address] [place], [address] IG% 0.200 Normal 0.0-0.9 [facility] Comment on above: Result Comment: IG% - Immature Granulocytes (promyelocytes, myelocytes and metamyelocytes) > 1% indicates that a LEFT SHIFT is Present. Performed By: #### L 501.080 #### [facility] [address] [place], [address] Lymphocytes/100 WBC (Bld) 14.1 % Low 19-41 [facility] Comment on above: Performed By: #### L 501.080 #### [facility] [address] [place], [address] MCH (RBC) [Entitic mass] 29.4 pg Normal 27.0-32.0 [facility] Comment on above: Performed By: #### L 501.080 #### [facility] [address] [place], [address] MCHC (RBC) [Mass/Vol] 35.4 g/dL Normal 32-[address] [facility] Comment on above: Performed By: #### L 501.080 #### [facility] [address] [place], [address] MCV (RBC) [Entitic vol] 83.0 fL Normal 81-99 [facility] Comment on above: Performed By: #### L 501.080 #### [facility] [address] [place], [address] Monocytes/100 WBC (Bld) 7.5 % Normal 0-10 [facility] Comment on above: Performed By: #### L 501.080 #### [facility] [address] [place], [address] Neutrophils/100 WBC (Bld) 77.1 % High 47-70 [facility] Comment on above: Performed By: #### L 501.080 #### [facility] [address] [place], [address] Nucleated RBC (Bld) [#/Vol] 0 10*3/uL Normal 0-5 [facility] Comment on above: Performed By: #### L 501.080 #### [facility] [address] [place], [address] Platelet mean volume (Bld) [Entitic vol] 11.7 fL Normal 6.2-12.0 [facility] Comment on above: Performed By: #### L 501.080 #### [facility] [address] [place], [address] Platelets (Bld) [#/Vol] 150 10*3/uL Normal 150-450 [facility] Comment on above: Performed By: #### L 501.080 #### [facility] [address] [place], [address] RBC (Bld) [#/Vol] 3.88 10*6/uL Low 4.2-5.4 [facility] Comment on above: Performed By: #### L 501.080 #### [facility] [address] [place], [address] RDW SD 39.7 fl Normal 35.1-43.9 [facility] Comment on above: Performed By: #### L 501.080 #### [facility] [address] [place], [address] WBC (Bld) [#/Vol] 8.1 10*3/uL Normal 4.4-11.0 [facility] Comment on above: Performed By: #### L 501.080 #### [facility] [address] [place], [address] Comprehensive Metabolic Prof ilstephanie 08-13-2025 ALK PHOS 66 U/L Normal 35-104 [facility] Comment on above: Performed By: #### L 501.080 #### [facility] [address] [place], [address] BUN/CRE 11.0 RATIO Normal 10-20 [facility] Comment on above: Performed By: #### L 501.080 #### [facility] [address] [place], [address] Calcium [Mass/Vol] 8.1 mg/dL Normal 7.6-11.0 [facility] Comment on above: Performed By: #### L 501.080 #### [facility] [address] [place], [address] Chloride [Moles/Vol] 107 mmol/L Normal 98-108 [facility] Comment on above: Performed By: #### L 501.080 #### [facility] [address] [place], [address] CO2 [Moles/Vol] 17.9 mmol/L Low 21.0-32.0 [facility] Comment on above: Performed By: #### L 501.080 #### [facility] [address] [place], [address] Creatinine [Mass/Vol] 0.86 mg/dL Normal 0.70-1.[address] [facility] Comment on above: Performed By: #### L 501.080 #### [facility] [address] [place], [address] ECRCL 105.08 ml/min Normal 50-250 [facility] Comment on above: Performed By: #### L 501.080 #### [facility] [address] [place], [address] GAP 10 Normal 5-15 [facility] Comment on above: Performed By: #### L 501.080 #### [facility] [address] [place], [address] GFR/1.73 sq M.predicted among non-blacks MDRD (S/P/Bld) [Vol rate/Area] 84 mL/min/{1.73_m2} Normal >60 [facility] Comment on above: Result Comment: mL/m in/1.73m2 CKD-EPI Creatinine Equation (2020) Performed By: #### L 501.080 #### [facility] [address] [place], [address] Glucose [Mass/Vol] 196 mg/dL High 70-99 [facility] Comment on above: Performed By: #### L 501.080 #### [facility] [address] [place], [address] Potassium [Moles/Vol] 3.4 mmol/L Normal 3.3-5.[address] [facility] Comment on above: Performed By: #### L 501.080 #### [facility] [address] [place], [address] Sodium [Moles/Vol] 135 mmol/L Normal 133-145 [facility] Comment on above: Performed By: #### L 501.080 #### [facility] [address] [place], [address] T PROT 5.6 g/dL Low 5.9-8.4 [facility] Comment on above: Performed By: #### L 501.080 #### [facility] [address] [place], [address] Urea nitrogen [Mass/Vol] 9 mg/dL Normal 4-19 [facility] Comment on above: Performed By: #### L 501.080 #### [facility] [address] [place], [address] Comprehensive Metabolic Prof ilOrdered By: Chantel Hand on 08-13-2025 AST [Catalytic activity/Vol] 10 U/L Normal <=31 [facility] Comment on above: Performed By: #### L 501.080 #### [facility] [address] [place], [address] Gram Stainon 08-13-2025 GS Gram Stain 3+ Red Blood Cells 2+ Gram positive cocci 3+ Gram positive rods Normal [facility] Comment on above: Performed By: #### L 501.080 #### [facility] [address] [place], [address] Magnesiumon 08-13-2025 Magnesium [Mass/Vol] 2.2 mg/dL Normal 1.5-2.2 [facility] Comment on above: Performed By: #### L 501.080 #### [facility] [address] [place], [address] Magnesium measurement (mass/ volume)Ordered By: Chantel Hand on 08-13-2025 Magnesium (Unsp spec) [Mass/Vol] 2.2 mg/dL 1.5-2.2 [facility] Phosphoruson 08-13-2025 Phosphate [Mass/Vol] 2.6 mg/dL Low 2.7-4.5 [facility] Comment on above: Performed By: #### L 501.080 #### [facility] [address] [place], [address] Serum globulin measurementOr dered By: Chantel Hand on 08-13-2025 Globulin (S) [Mass/Vol] 2.7 g/dL Normal 2.2-4.2 [facility] Comment on above: Performed By: #### L 501.080 #### [facility] [address] [place], [place], [address] Serum or plasma alanine moses otransferase (ALT) measurementOrdered By: Chantel Hand on 08-13-2025 ALT [Catalytic activity/Vol] 11 U/L Normal <=34 [facility] Comment on above: Performed By: #### L 501.080 #### [facility] [address] [place], [place], [id number] [phone] Serum or plasma albumin boogie urement (mass/volume)Ordered By: Chantel Hand on 08-13-2025 Albumin [Mass/Vol] 2.9 g/dL Low 3.5-5.0 [facility] Comment on above: Performed By: #### L 501.080 #### [facility] [address] [place], [place], [id number] (089) Serum or plasma albumin/glob ulin mass ratioOrdered By: Chantel Hand on 08-13-2025 Albumin/Globulin [Mass ratio] 1.1 {ratio} Normal 0.9-2.4 [facility] Comment on above: Performed By: #### L 501.080 #### [facility] [address] [place], [place], [address] Serum or plasma alkaline andrei sphatase measurementOrdered By: Chantel Hand on 08-13-2025 ALP [Catalytic activity/Vol] 66 U/L 35-104 [facility] Total proteinOrdered By: Bettina Hand on 08-13-2025 Protein [Mass/Vol] 5.6 g/dL Low 5.9-8.4 [facility] Vancomycin, Trough Levelon 1 VANCO, TROUGH 19.2 ug/mL High 5.0-15.0 [facility] Comment on above: Order Comment: Comme nts: Trough to be drawn 30 mins prior to scheduled [id number] Result Comment: Bebo mmended goal trough ranges are generally 10-15 mcg/ml for less severe/complicated infections such as cellulitis or UTI and 15-20 mcg/ml for more severe/complicated infections such as bacteremia/sepsis, osteomyelitis, pneumonia or meningitis. Goal trough ranges should take into account indication, patient-specific factors and organism BLANQUITA. VANCOMYCIN STANDARED DRUG THERAPY TROUGH LEVEL: 5.0 - 15.0 mg/L VANCOMYCIN HIGH INTENSITY THERAPY TROUGH LEVEL: 15.0 - 20.0 mg/L High Intensity therapy recommended for serious life threatening infections include: - Meningitis -Endocarditis -Pneumonia (Ventilator/Healtcare Associated) -Sepsis PLEASE CONTACT PHARMACY SERVICES (#[phone]) FOR INTERPRETATION OF RESULTS. Performed By: #### L 501.080 #### [facility] [address] [place], [address] Anaerobic cultureOrdered By: Werner Cam on 08-12-2025 Bacteria identified Anaer cx Nom (Unsp spec) No anaerobic bacteria isolated. [facility] Anion gap in Serum or Plasma Ordered By: Elias Barahona on 08-12-2025 Anion gap [Moles/Vol] 15 mmol/L 03-[address] [facility] BUN/creatinine ratioOrdered By: Elias Barahona on 08-12-2025 Urea nitrogen/Creatinine [Mass ratio] 15.7 mg/mg 08-26 [facility] Basic Metabolic Profile (BMP )on 08-12-2025 BUN/CRE 15.0 RATIO Normal 08-26 [facility] Comment on above: Performed By: #### L 400.0001 #### [facility] [address] [place], [address] Calcium [Mass/Vol] 8.1 mg/dL Normal 7.6-11.0 [facility] Comment on above: Performed By: #### L 400.0001 #### [facility] [address] [facility] [address] Chloride [Moles/Vol] 104 mmol/L Normal 98-108 [facility] Comment on above: Performed By: #### L 400.0001 #### [facility] [address] [facility] [address] CO2 [Moles/Vol] 17.2 mmol/L Low 21.0-32.0 [facility] Comment on above: Performed By: #### L 400.0001 #### [facility] [address] [place], [address] Creatinine [Mass/Vol] 0.77 mg/dL Normal 0.70-1.[address] [facility] Comment on above: Performed By: #### L 400.0001 #### [facility] [address] [place], [address] ECRCL 117.36 ml/min Normal 50-250 [facility] Comment on above: Performed By: #### L 400.0001 #### [facility] [address] [place], [address] GAP 12 Normal 5-15 [facility] Comment on above: Performed By: #### L 400.0001 #### [facility] [address] [place], [address] GFR/1.73 sq M.predicted among non-blacks MDRD (S/P/Bld) [Vol rate/Area] 97 mL/min/{1.73_m2} Normal >60 [facility] Comment on above: Result Comment: mL/m in/1.73m2 CKD-EPI Creatinine Equation (2020) Performed By: #### L 400.0001 #### [facility] [address] [place], [address] Glucose [Mass/Vol] 275 mg/dL High 70-99 [facility] Comment on above: Performed By: #### L 400.0001 #### [facility] [address] [place], [address] Potassium [Moles/Vol] 4.0 mmol/L Normal 3.3-5.[address] [facility] Comment on above: Performed By: #### L 400.0001 #### [facility] [address] [place], [address] Sodium [Moles/Vol] 133 mmol/L Normal 133-145 [facility] Comment on above: Performed By: #### L 400.0001 #### [facility] [address] [place], [address] Urea nitrogen [Mass/Vol] 12 mg/dL Normal 4-19 [facility] Comment on above: Performed By: #### L 400.0001 #### [facility] [address] [place], [address] BUN/CRE 15.7 RATIO Normal 10-20 [facility] Comment on above: Performed By: #### L 501.080 #### [facility] [address] [place], [address] Calcium [Mass/Vol] 8.1 mg/dL Normal 7.6-11.0 [facility] Comment on above: Performed By: #### L 501.080 #### [facility] [address] [place], [address] Chloride [Moles/Vol] 105 mmol/L Normal 98-108 [facility] Comment on above: Performed By: #### L 501.080 #### [facility] [address] [place], [address] CO2 [Moles/Vol] 14.3 mmol/L Low 21.0-32.0 [facility] Comment on above: Performed By: #### L 501.080 #### [facility] [address] [place], [address] Creatinine [Mass/Vol] 0.69 mg/dL Low 0.70-1.[address] [facility] Comment on above: Performed By: #### L 501.080 #### [facility] [address] [place], [address] ECRCL 130.97 ml/min Normal 50-250 [facility] Comment on above: Performed By: #### L 501.080 #### [facility] [address] [place], [address] GAP 15 Normal 5-15 [facility] Comment on above: Performed By: #### L 501.080 #### [facility] [address] [place], [address] GFR/1.73 sq M.predicted among non-blacks MDRD (S/P/Bld) [Vol rate/Area] 109 mL/min/{1.73_m2} Normal >60 [facility] Comment on above: Result Comment: mL/m in/1.73m2 CKD-EPI Creatinine Equation (2020) Performed By: #### L 501.080 #### [facility] [address] [place], [address] Glucose [Mass/Vol] 283 mg/dL High 70-99 [facility] Comment on above: Performed By: #### L 501.080 #### [facility] [address] [place], [address] Potassium [Moles/Vol] 3.9 mmol/L Normal 3.3-5.[address] [facility] Comment on above: Performed By: #### L 501.080 #### [facility] [address] [place] [place], [address] Sodium [Moles/Vol] 134 mmol/L Normal 133-145 [facility] Comment on above: Performed By: #### L 501.080 #### [facility] [address] [place], [address] Urea nitrogen [Mass/Vol] 11 mg/dL Normal 4-19 [facility] Comment on above: Performed By: #### L 501.080 #### [facility] [address] [place], [address] Bedside Glucoseon 08-12-2025 FINGERSTICK GLU 243 mg/dL High 74-106 [facility] Comment on above: Result Comment: EMMA LINDQUIST OF PATIENT CARE PER NURSING PROTOCOL Performed By: #### L 501.080 #### [facility] [address] [place], [address] FINGERSTICK GLU 259 mg/dL High 74-106 [facility] Comment on above: Result Comment: EMMA GEMENT OF PATIENT CARE PER NURSING PROTOCOL Performed By: #### L 501.080 #### [facility] [address] [place], [address] FINGERSTICK GLU 207 mg/dL High 74-106 [facility] Comment on above: Result Comment: EMMA GEMENT OF PATIENT CARE PER NURSING PROTOCOL Performed By: #### L 501.080 #### [facility] [address] [place], [address] FINGERSTICK GLU 293 mg/dL High 74-106 [facility] Comment on above: Result Comment: EMMA GEMENT OF PATIENT CARE PER NURSING PROTOCOL Performed By: #### L 501.080 #### [facility] [address] [place], [address] CBC-Complete Blood Cnt No Di ffon 08-12-2025 Erythrocyte distribution width (RBC) [Ratio] 13.2 % Normal 11.6-14.6 [facility] Comment on above: Performed By: #### L 501.080 #### [facility] [address] [place], [address] Hematocrit (Bld) [Volume fraction] 37.1 % Normal 37-47 [facility] Comment on above: Performed By: #### L 501.080 #### [facility] [address] [place], [address] Hemoglobin (Bld) [Mass/Vol] 12.3 g/dL Normal 12.0-15.0 [facility] Comment on above: Performed By: #### L 501.080 #### [facility] [address] [place], [address] MCH (RBC) [Entitic mass] 29.1 pg Normal 27.0-32.0 [facility] Comment on above: Performed By: #### L 501.080 #### [facility] [address] [place], [address] MCHC (RBC) [Mass/Vol] 33.2 g/dL Normal 32-[address] [facility] Comment on above: Performed By: #### L 501.080 #### [facility] [address] [place], [address] MCV (RBC) [Entitic vol] 87.7 fL Normal 81-99 [facility] Comment on above: Performed By: #### L 501.080 #### [facility] [address] [place], [address] Platelet mean volume (Bld) [Entitic vol] 11.7 fL Normal 6.2-12.0 [facility] Comment on above: Performed By: #### L 501.080 #### [facility] [address] [place], [address] Platelets (Bld) [#/Vol] 160 10*3/uL Normal 150-450 [facility] Comment on above: Performed By: #### L 501.080 #### [facility] [address] [place], [address] RBC (Bld) [#/Vol] 4.23 10*6/uL Normal 4.2-5.4 [facility] Comment on above: Performed By: #### L 501.080 #### [facility] [address] [place], [address] RDW SD 41.9 fl Normal 35.1-43.9 [facility] Comment on above: Performed By: #### L 501.080 #### [facility] [address] [place], [address] WBC (Bld) [#/Vol] 10.0 10*3/uL Normal 4.4-11.0 [facility] Comment on above: Performed By: #### L 501.080 #### [facility] [address] [place], [address] Carbon dioxide, total [Moles /volume] in Central venous bloodOrdered By: Elias Barahona on 08-12-2025 CO2 [Moles/Vol] 14.3 mmol/L Low 21.0-32.0 [facility] Chloride assayOrdered By: Maykel Barahona on 08-12-2025 Chloride [Moles/Vol] 105 mmol/L 98-108 [facility] Consultation - Surgicalon Consultation - Surgical [facility] Medical Records Department [address] [place] [address] Consultation - Surgical 08/12/25 1901 MR#: [id number] Acct: [id number] Name: TRICE ZAMBRANO Rep #: [id number] : 1980 45 From: Werner Cam MD PCP: Dr. Joaquin Huitron MD Status:ADM [id number] Assessment Plan Assessment/Plan (1) Abscess: PLAN: Patient 45-year-old female with history of type 1 diabetes, poorly controlled, and MRSA who presents with cellulitis now progressed to cutaneous abscess of the right posterior thigh. Given patient's history and the presence of a fluctuant center I offered bedside incision and drainage. Patient was readily receptive and after obtaining consents procedure was undertaken uncomplicated fashion. Cultures were submitted. Will follow-up with a wound check and packing removal after premedication tomorrow. Werner Cam MD General Surgery Endocrine Surgery Pager: [facility] [address] [place] [address], [facility], [address] [place] [address] Office: [phone] HPI Consult Data Date of Consult: 08/12/25 HPI Narrative Reason for Consultation: Cutaneous abscess HPI Narrative: TRICE ZAMBRANO, is a 45 F who was admitted to [facility] over the weekend due to progressive tenderness and soft tissue swelling consistent with posterior thigh cellulitis. Patient states that she noted her blood sugars became more difficult to control on 08/09/2025 and there is soft tissue swelling by the following day. She notes that the area has approximately doubled in size each of the last 2 days. She shares she initially declined incision and drainage because CAT scan did not show an abscess. She had hoped IV antibiotics would be sufficient to take care of this infection. Patient reports a history of MRSA and necrotizing fasciitis. She states the necrotizing fasciitis spanned from the latter part of [id number]. She has had multiple incision and drainage procedures. Patient's hemoglobin A1c on intake was 13.8. Patient states that she takes her insulin every day but does not necessarily check her blood sugars. She denies her A1c ever being as high as it tested this admission. 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 History of necrotising fasciitis Current use of insulin Diabetes Home Medications ???Medication ???Instructions ???Recorded ???Last Taken ???Type insulin glargine 100 unit/mL (3 66 unit subcut BID diabetes 08/11/25 07:30 History mL) subcutaneous pen (Basaglar KwikPen U-100 Insulin) insulin lispro 100 unit/mL 44 unit subcut TID 04/23/21 History subcutaneous pen (Humalog KwikPen (U-100) Insulin) atorvastatin 10 mg tablet 10 mg PO QHS 09/14/21 09/15/24 His tory lisinopril 5 mg tablet 5 mg PO DAILY 09/14/21 09/15/24 Hi story ropinirole 0.5 mg tablet 1.5 mg PO QHS nerve pain 09/16/24 08/10/25 20:00 History insulin degludec 100 unit/mL (3 64 unit subcut BID 08/11/25 Unknow n History mL) subcutaneous pen (Tresiba FlexTouch U-100 insulin) Allergy/AdvReac Type Severity Reaction Status Date / Time metformin AdvReac Nausea Verified 08/11/25 13:16 Family History Other Breast cancer Diabetes Surgical [...] Smoking Status: Never smoker Physical Exam Const alert Constitutional Narrative: Anxious, pacing Skin Skin Narrative: Erythematous and indurated area (with mild amount of fluctuance centrally) to right posterior thigh approaching the labia majorum. There is a central area of tissue necrosis. There is no drainage. There is exquisite tenderness with palpation Lab / Micro Data 08/12/25 06:10 08/12/25 15:35 Labs: Laboratory Results - last 24 hr 08/11/25 20:33: POC Glucose 318 H 08/12/25 05:04: POC Glucose 293 H 08/12/25 06:10: WBC 10.0, RBC 4.23, Hgb 12.3, Hct 37.1, MCV 87.7 D, MCH 29.1, MCHC 33.2 D, RDW Std Deviation 41.9, RDW Coeff of Meet 13.2, Plt Count 160, MPV 11.7, Sodium 134, Potassium 3.9, Chloride 105, Carbon Dioxide 14.3 L, Anion Gap (more content not included)... Normal [facility] Erythrocyte distribution wid th ratioOrdered By: Elias Barahona on 08-12-2025 Erythrocyte distribution width (RBC) [Ratio] 13.2 % 11.6-14.6 [facility] Erythrocyte distribution wid th standard deviationOrdered By: Elias Barahona on 08-12-2025 Erythrocyte distribution width (RBC) [Ratio] 41.9 fl 35.1-43.9 [facility] Glomerular filtration rate ( GFR) estimation/1.73 sq m using serum, plasma, or whole bOrdered By: Elias Barahona on 08-12-2025 GFR/1.73 sq M.predicted among non-blacks MDRD (S/P/Bld) [Vol rate/Area] 109 mL/min/{1.73_m2} >60 [facility] Comment on above: mL/min/1.73m2 CKD-EP I Creatinine Equation (2020) Glucose measurement at bedsi deOrdered By: Elias Barahona on 08-12-2025 Glucose [Mass/Vol] 293 mg/dL High 74-106 [facility] Comment on above: MANAGEMENT OF PATIEN T CARE PER NURSING PROTOCOL Gram stainOrdered By: Martine Cam on 08-12-2025 Microscopic observation Gram stain Nom (Unsp spec) [facility] Hematocrit Auto (Bld) [Volum e fraction]Ordered By: Elias Barahona on 08-12-2025 Hematocrit (Bld) [Volume fraction] 37.1 % 37-47 [facility] Hemoglobin measurementOrdere d By: Elias Barahona on 08-12-2025 Hemoglobin (Bld) [Mass/Vol] 12.3 g/dL 12.0-15.0 [facility] MCV (mean corpuscular volume ) determinationOrdered By: Elias Barahona on 08-12-2025 MCV (RBC) [Entitic vol] 87.7 fL Invalid Interpretation Code 81-99 [facility] Comment on above: Delta: 82.6 on 08/11 Mean corpuscular hemoglobin (MCH) determinationOrdered By: Elias Barahona on 08-12-2025 MCH (RBC) [Entitic mass] 29.1 pg 27.0-32.0 [facility] Mean corpuscular hemoglobin concentration (MCHC) determinationOrdered By: Elias Baarhona on 08-12-2025 MCHC (RBC) [Mass/Vol] 33.2 g/dL Invalid Interpretation Code 32-36 [facility] Comment on above: Delta: 35.1 on 08/11 Mean platelet volume determi nationOrdered By: Elias Barahona on 08-12-2025 Platelet mean volume (Bld) [Entitic vol] 11.7 fL 6.2-12.0 [facility] Operative Reporton Operative Report [facility] Medical Records Department [address] [place] [address] Operative Report 08/12/25 1908 MR#: [id number] Acct: [id number] Name: TRICE ZAMBRANO Rep #: [id number] : 1980 45 From: Werner Cam MD PCP: Dr. Joaquin Huitron MD Status:ADM IN Location: [facility] [place] [facility] [id number] Procedures Hospitalists Procedures: 63255 Drain Skin Abscess Operative Report (Standard) Operative Information Date of Procedure: 08/12/25 Pre-Operative Diagnosis: Right posterior thigh abscess Post-Operative Diagnosis: Same Surgery/Procedure Performed: Bedside incision and drainage of right posterior thigh abscess vice president and portfolio manager: No Type of Anesthesia: Local (1% plain lidocaine) Procedure Start Time: 05:45 Procedure Stop Time: 06:10 Select all DRAINS/GRAFTS/IMPLANTS that apply: None Estimated Blood Loss: 10 Specimen collected: Yes Description of specimen(s) removed: Aerobic anaerobic cultures Description of surgery: After obtaining written consent, patient was positioned supine on the hospital bed. A verbal timeout was conducted to confirm the patient and procedure. Then the area was anesthetized with a local block using 10 mL mL of 1% lidocaine. Then, an 11 blade scalpel was used to make a stab incision in this area and ultimately remove an ellipse of skin. This resulted in production of both bloody and mildly purulent drainage. Manual pressure was applied to further express this discharge until the cavity appeared empty. Cultures were obtained with culture swabs. The cavity was then irrigated with sterile saline. The cavity it was packed tightly with quarter inch iodoform gauze. A 4 x 4 gauze was then folded into fourths and taped over site. Patient tolerated the procedure without any apparent complication. Surgical Findings: ??? Small abscess cavity tracking slightly subcutaneously laterally Complications Complications: No 08/12/251910 Cosigner Signature (if applicable): CC: Dr. Elias Barahona DO; Dr. Joaquin Huitron MD; Dr. Werner Cam MD Signed Normal [facility] Platelet countOrdered By: Maykel Barahona on 08-12-2025 Platelets (Bld) [#/Vol] 160 10*3/uL 150-450 [facility] Potassium measurement (mass/ volume)Ordered By: Elias Barahona on 08-12-2025 Potassium (Unsp spec) [Mass/Vol] 3.9 mmol/L 3.3-5.1 [facility] RBC Auto (Bld) [#/Vol]Ordere d By: Elias Barahona on 08-12-2025 RBC (Bld) [#/Vol] 4.23 10*6/uL 4.2-5.4 [facility] Routine wound cultureOrdered By: Werner Cam on 08-12-2025 Microbial culture, routine Streptococcus agalactiae (B) Abnormal [facility] Serum creatinine measurement (mass/volume)Ordered By: Elias Barahona on 08-12-2025 Creatinine [Mass/Vol] 0.69 mg/dL Low 0.70-1.[address] [facility] Serum glucose measurement (m ass/volume)Ordered By: Elias Barahona on 08-12-2025 Glucose [Mass/Vol] 283 mg/dL High 70-99 [facility] Serum or plasma calcium boogie urement (mass/volume)Ordered By: Elias Barahona on 08-12-2025 Calcium [Mass/Vol] 8.1 mg/dL 7.6-11.0 [facility] Serum or plasma urea nitroge n measurement (mass/volume)Ordered By: Elias Barahona on 08-12-2025 Urea nitrogen [Mass/Vol] 11 mg/dL 4-19 [facility] Sodium levelOrdered By: Elkin Barahona on 08-12-2025 Sodium [Moles/Vol] 134 mmol/L 133-145 [facility] Vancomycin, Trough Levelon 1 VANCO, TROUGH 16.0 ug/mL High 5.0-15.0 [facility] Comment on above: Order Comment: Comme nts: Trough to be drawn 30 mins prior to scheduled [id number] Result Comment: Bebo mmended goal trough ranges are generally 10-15 mcg/ml for less severe/complicated infections such as cellulitis or UTI and 15-20 mcg/ml for more severe/complicated infections such as bacteremia/sepsis, osteomyelitis, pneumonia or meningitis. Goal trough ranges should take into account indication, patient-specific factors and organism BLANQUITA. VANCOMYCIN STANDARED DRUG THERAPY TROUGH LEVEL: 5.0 - 15.0 mg/L VANCOMYCIN HIGH INTENSITY THERAPY TROUGH LEVEL: 15.0 - 20.0 mg/L High Intensity therapy recommended for serious life threatening infections include: - Meningitis -Endocarditis -Pneumonia (Ventilator/Healtcare Associated) -Sepsis PLEASE CONTACT PHARMACY SERVICES (#0099) FOR INTERPRETATION OF RESULTS. Performed By: #### L 501.080 #### [facility] [address] [place], [place], [id number] White blood cell (WBC) count Ordered By: Elias Barahona on 08-12-2025 WBC (Bld) [#/Vol] 10.0 10*3/uL 4.4-11.0 [facility] Abdomen/Pelvis W IV Cont ONL Yon 08-11-2025 Abdomen/Pelvis W IV Cont ONLY [facility] Imaging Services [address] [place] [address] Abdomen/Pelvis W IV Cont ONLY MR#: [id number] Acct: [id number] Name: TRICE ZAMBRANO Rep #: [id number] : 1980 F 45 From: Angus Mendoza MD PCP: Dr. Joaquin Huitron MD Status: [facility] ER Study: Abdomen/Pelvis W IV Cont ONLY Date of Exam: Exam# [id number] Ordering Dr: Myles Cabrera DO PROCEDURE: ABDOMEN/PELVIS W IV CONT ONLY 08/11/2025 REASON FOR EXAM: PERIRECTAL ABSCESS TECHNIQUE: Procedure Code: [id number] Modality: CT Procedure: ABDOMEN/PELVIS W IV CONT ONLY Coronal and Sagittal reconstruction series were provided. CONTRAST: Not specified One or more dose reduction techniques were used (e.g., Automated exposure control, adjustment of the mA and/or kV according to patient size, use of iterative reconstruction technique. COMPARISON: 01/05/2025 FINDINGS: No liver masses. Normal portal vein opacification. Normal spleen. Small hypodensity, well-defined in the body of the pancreas stable compared to prior study. Renal cysts. No hydronephrosis. No solid renal mass. No bowel obstruction. Cystic changes left adnexa. Negative for abscess. No abscess. No wall thickening. Negative for perirectal abscess. CT/Abdomen/Pelvis W IV Cont ONLY IMPRESSION: No perirectal abscess noted Reading [facility] CC: Dr. Joaquin Huitron MD; Dr. Myles Cabrera DO Meat Carrier: Signed Normal [facility] Absolute lymphocyte countOrd ered By: Myles Cabrera on 08-11-2025 Lymphocytes Auto (Unsp spec) [#/Vol] 1.08 10*3/uL 0.83-4.51 [facility] Absolute neutrophil countOrd ered By: Myles Cabrera on 08-11-2025 Neutrophils (Bld) [#/Vol] 8.7 10*3/uL High 2.0-7.7 [facility] Activated partial thrombopla stin time (aPTT) in platelet poor plasma by coagulation aOrdered By: Myles Cabrera on 08-11-2025 aPTT Coag (PPP) [Time] 24.1 s 24.1-36.2 [facility] Automated lymphocyte count a s percentage of total leukocytesOrdered By: Myles Cabrera on 08-11-2025 Lymphocytes/100 WBC Auto (Unsp spec) 10.3 % Low 19-41 [facility] Basic Metabolic Profile (BMP )on 08-11-2025 BUN/CRE 19.2 RATIO Normal 10-20 [facility] Comment on above: Performed By: #### L 501.080 #### [facility] [address] [place], [address] Calcium [Mass/Vol] 9.0 mg/dL Normal 7.6-11.0 [facility] Comment on above: Performed By: #### L 501.080 #### [facility] [address] [place], [address] Chloride [Moles/Vol] 94 mmol/L Low 98-108 [facility] Comment on above: Performed By: #### L 501.080 #### [facility] [address] [place], [address] CO2 [Moles/Vol] 16.4 mmol/L Low 21.0-32.0 [facility] Comment on above: Performed By: #### L 501.080 #### [facility] [address] [place], [address] Creatinine [Mass/Vol] 0.73 mg/dL Normal 0.70-1.[address] [facility] Comment on above: Performed By: #### L 501.080 #### [facility] [address] [place], [address] ECRCL 123.80 ml/min Normal 50-250 [facility] Comment on above: Performed By: #### L 501.080 #### [facility] [address] [place], [address] GAP 19 High 5-15 [facility] Comment on above: Performed By: #### L 501.080 #### [facility] [address] [place], [address] GFR/1.73 sq M.predicted among non-blacks MDRD (S/P/Bld) [Vol rate/Area] 103 mL/min/{1.73_m2} Normal >60 [facility] Comment on above: Result Comment: mL/m in/1.73m2 CKD-EPI Creatinine Equation (2020) Performed By: #### L 501.080 #### [facility] [address] [place], [address] Glucose [Mass/Vol] 527 mg/dL Invalid Interpretation Code 70-99 [facility] Comment on above: Result Comment: Crit ical Result(s) Called at 1515: TO [facility] by: KCLAPPER??Results read back by same. Performed By: #### L 501.080 #### [facility] [address] [place], [address] Potassium [Moles/Vol] 4.2 mmol/L Normal 3.3-5.[address] [facility] Comment on above: Performed By: #### L 501.080 #### [facility] [address] [place], [address] Sodium [Moles/Vol] 129 mmol/L Low 133-145 [facility] Comment on above: Performed By: #### L 501.080 #### [facility] [address] [place], [address] Urea nitrogen [Mass/Vol] 14 mg/dL Normal 4-19 [facility] Comment on above: Performed By: #### L 501.080 #### [facility] [address] [place], [address] Basophil percentageOrdered B y: Myles Cabrera on 08-11-2025 Basophils/100 WBC (Bld) 0.3 % 0-1 [facility] Bedside Glucoseon 08-11-2025 FINGERSTICK GLU 318 mg/dL High 74-106 [facility] Comment on above: Result Comment: EMMA GEMENT OF PATIENT CARE PER NURSING PROTOCOL Performed By: #### L 501.080 #### [facility] [address] [place], [address] FINGERSTICK GLU 373 mg/dL High 74-106 [facility] Comment on above: Result Comment: EMMA GEMENT OF PATIENT CARE PER NURSING PROTOCOL Performed By: #### L 501.080 #### [facility] [address] [place], [address] Beta-Hydroxbytyrateon 2024 BETA-HYDROXYBUT 2.6 mmol/L High 0.0-0.3 [facility] Comment on above: Performed By: #### L 501.080 #### [facility] [address] [place], [address] Beta-hydroxybutyrateOrdered By: Myles Cabrera on 08-11-2025 Beta hydroxybutyrate [Mass/Vol] 2.6 mmol/L High 0.0-0.3 [facility] Bilirubin Test strip Ql (U)O rdered By: Myles Cabrera on 08-11-2025 Bilirubin Ql (U) Negative Negative [facility] Blood cultureOrdered By: Lawanda Cabrera on 08-11-2025 Bacteria identified Cx Nom (Bld) No growth in [address] [facility] Bacteria identified Cx Nom (Bld) No growth in [address] [facility] CBC W/Diff, Automatedon 10-0 Absolute Lymph 1.08 X10 3/uL Normal 0.83-4.51 [facility] Comment on above: Performed By: #### L 501.080 #### [facility] [address] [place], [address] Absolute Neut 8.7 X10 3/uL High 2.0-7.7 [facility] Comment on above: Performed By: #### L 501.080 #### [facility] [address] [place], [address] Basophils/100 WBC (Bld) 0.3 % Normal 0-1 [facility] Comment on above: Performed By: #### L 501.080 #### [facility] [address] [place], [address] Eosinophils/100 WBC (Bld) 0.3 % Normal 0-5 [facility] Comment on above: Performed By: #### L 501.080 #### [facility] [address] [place], [address] Erythrocyte distribution width (RBC) [Ratio] 12.8 % Normal 11.6-14.6 [facility] Comment on above: Performed By: #### L 501.080 #### [facility] [address] [place], [address] Hematocrit (Bld) [Volume fraction] 39.9 % Normal 37-47 [facility] Comment on above: Performed By: #### L 501.080 #### [facility] [address] [place], [address] Hemoglobin (Bld) [Mass/Vol] 14.0 g/dL Normal 12.0-15.0 [facility] Comment on above: Performed By: #### L 501.080 #### [facility] [address] [place], [address] IG% 0.500 Normal 0.0-0.9 [facility] Comment on above: Result Comment: IG% - Immature Granulocytes (promyelocytes, myelocytes and metamyelocytes) > 1% indicates that a LEFT SHIFT is Present. Performed By: #### L 501.080 #### [facility] [address] [place], [address] Lymphocytes/100 WBC (Bld) 10.3 % Low 19-41 [facility] Comment on above: Performed By: #### L 501.080 #### [facility] [address] [place], [address] MCH (RBC) [Entitic mass] 29.0 pg Normal 27.0-32.0 [facility] Comment on above: Performed By: #### L 501.080 #### [facility] [address] [place], [address] MCHC (RBC) [Mass/Vol] 35.1 g/dL Normal 32-[address] [facility] Comment on above: Performed By: #### L 501.080 #### [facility] [address] [place], [address] MCV (RBC) [Entitic vol] 82.6 fL Normal 81-99 [facility] Comment on above: Performed By: #### L 501.080 #### [facility] [address] [place], [address] Monocytes/100 WBC (Bld) 6.3 % Normal 0-10 [facility] Comment on above: Performed By: #### L 501.080 #### [facility] [address] [place], [address] Neutrophils/100 WBC (Bld) 82.3 % High 47-70 [facility] Comment on above: Performed By: #### L 501.080 #### [facility] [address] [place], [address] Nucleated RBC (Bld) [#/Vol] 0 10*3/uL Normal 0-5 [facility] Comment on above: Performed By: #### L 501.080 #### [facility] [address] [place], [address] Platelet mean volume (Bld) [Entitic vol] 11.7 fL Normal 6.2-12.0 [facility] Comment on above: Performed By: #### L 501.080 #### [facility] [address] [place], [address] Platelets (Bld) [#/Vol] 169 10*3/uL Normal 150-450 [facility] Comment on above: Performed By: #### L 501.080 #### [facility] [address] [place], [address] RBC (Bld) [#/Vol] 4.83 10*6/uL Normal 4.2-5.4 [facility] Comment on above: Performed By: #### L 501.080 #### [facility] [address] [place], [address] RDW SD 38.5 fl Normal 35.1-43.9 [facility] Comment on above: Performed By: #### L 501.080 #### [facility] [address] [place], [address] WBC (Bld) [#/Vol] 10.5 10*3/uL Normal 4.4-11.0 [facility] Comment on above: Performed By: #### L 501.080 #### [facility] [address] [place], [address] CO2 (BldV) [Moles/Vol]Ordere d By: Myles Cabrera on 08-11-2025 CO2 [Moles/Vol] 23 mmol/L 23-33 [facility] CRPon 08-11-2025 C-REACTIVE PROT 112.00 mg/L High 0.0-3.0 [facility] Comment on above: Performed By: #### L 501.080 #### [facility] [address] [facility] [address] [place], [place], [address] Emergency Department Summary on 08-11-2025 Emergency Department Summary [facility] Medical Records Department [address] [place] [address] Emergency Department Summary 08/11/25 MR#: [id number] Acct: [id number] Name: TRICE ZAMBRANO Rep #: [id number] : 1980 45 From: Myles Cabrera DO PCP: Dr. Joaquin Huitron MD Status:ADM IN Location: [place] [address] HPI History of Present Illness Chief Complaint: Wound Informant: patient Onset/Context/Timing Onset: Days (2) Context: Gradual Onset Timing: Continuous Quality: Pressure, stabbing Location: Right proximal medial thigh/gluteal/perineal area Worsened by: Sitting, movement Relieved by: Nothing Narrative Narrative: Patient presents with abscess to her right perianal area that has been getting worse over the past 2 days. Patient states that yesterday she noted a pea-sized area that was tender. Patient states that today it has grown to the size of a golf ball. Patient states it is worse with pressure, sitting, and movement. Patient states the pain has been constant. Patient states it is over the right gluteal/perineal/proxim al thigh area. Patient denies any discharge or drainage. Patient describes her pain as pressure and stabbing. Patient denies any fevers or chills. Patient states she has a history of MRSA and necrotizing fasciitis. [facility] Medical History Abscess or cellulitis of perineum Abscess of deep perineal space Physical exam, pre-employment History of necrotising fasciitis [...] mg PO QHS 09/16/24 09/15/24 Hi story insulin degludec 100 unit/mL (3 64 unit subcut BID 08/11/25 Unknow n History mL) subcutaneous pen (Tresiba FlexTouch U-100 insulin) Allergy/AdvReac Type Severity Reaction Status Date / Time metformin AdvReac Nausea Verified 08/11/25 13:16 Family History Other Breast cancer Diabetes Surgical [...] ED: Denies chills or fever(s) Eyes Eyes: Denies blurry vision or change in vision ENT ENT ED: Denies rhinorrhea or sore throat Cardiovascular Cardiovascular: Denies chest pain or palpitations Respiratory/Chest Respiratory/Chest: Denies cough or dyspnea Gastrointestinal Gastrointestinal: Reports nausea; Denies vomiting Genitourinary Genitourinary ED: Denies dysuria or hematuria Musculoskeletal Musculoskeletal: Denies back pain or neck pain Integumentary Reports abscess; Denies rash Neurologic Neurologic: Reports weakness; Denies headache(s) Allergic/Immunologic Allergic/Immunologic ED: Denies mouth swelling or urticaria EXAM Physical Exam Const Vital Signs: 08/11/25 13:16 08/11/25 14:18 08/11/25 15:00 Temperature 98.8 F 98.5 F 98.6 F Temperature Source Oral Oral Oral Pulse Rate 125 H 109 H 103 H Respiratory Rate 22 H 18 18 Blood Pressure 180/98 H 165/89 H 157/88 H Blood Pressure Mean 125 114 111 Pulse Ox 99 98 99 Oxygen Delivery Method Room Air Room Air Room Air 08/11/25 16:00 08/11/25 17:00 08/11/25 18:00 Temperature 98.7 F 98.6 F 98.6 F Temperature Source Oral Oral Oral Pulse Rate 103 H 101 H 101 H Respiratory Rate 16 16 18 Blood Pressure 107/77 146/62 H 128/79 H Blood Pressure Mean 87 90 95 Pulse Ox 99 98 99 Oxygen Delivery Method Room Air Room Air Room Air 08/11/25 18:13 Temperature 98.6 F Temperature Source Pulse Rate 100 Respiratory Rate 14 Blood Pressure 128/78 H Blood Pressure Mean 94 Pulse Ox 99 Oxygen Delivery Method Positive well nourished and well developed Constitutiona (more content not included)... Normal [facility] Eosinophil percentageOrdered By: Myles Cabrera on 08-11-2025 Eosinophils/100 WBC (Bld) 0.3 % 0-5 [facility] H AND P Exam - Hospitaliston 08-11-2025 H&P Exam - Hospitalist [facility] Medical Records Department [address] [place] [address] H P Exam - Hospitalist 08/11/25 1908 MR#: [id number] Acct: [id number] Name: KENYATRICE Erica Rep #: [id number] : 1980 45 From: Elias Barahona DO PCP: Dr. Joaquin Huitron MD Status:ADM IN Location: [facility] [facility] [id number] HPI - General General Date of Admission: 08/11/25 Date of Service: 08/11/25 Chief Complaint: Recurrent perineal infection HPI Narrative TRICE KENYA, is a 45 F who presented to [facility] ED on 08/11/2025 with concern for recurrent perineal infection. Medical history is significant for left perineal cellulitis with necrotizing fasciitis to the buttocks back in April 2021. She had an extensive debridement at that time as well as creation of a colostomy, which has since been reversed. More recently she was hospitalized here in September 2024 again with a left perineal/buttock infection. Areas of fibrosis in the perianal location were seen on CT imaging but there was no evidence of necrotizing fasciitis or drainable abscess. Surgery followed and noted there is no need for surgical intervention. ID followed and patient was treated with vancomycin and Zosyn while inpatient and then discharged on 1 week of p.o. doxycycline and Augmentin. Patient reports that she recovered well at that time. She notes today that yesterday she felt a small tender lump in the right perineal area that was pea- sized. Today it worsened significantly and was golf ball sized and was more tender, so she came in for further evaluation. In the ED she had sinus tachycardia to the 100s and was hypertensive to the 140s to 150s systolic but she was otherwise afebrile and stable on room air at rest. CT abdomen pelvis showed no perirectal abscess or other concerning findings. Labs notable for WBC count 10, sodium 129, chloride 94, glucose 527. She was given 2 L of IV fluids and IV antibiotics, and hospitalist was contacted for admission. I saw the patient at bedside in the ED. Patient was laying on her side in bed and was mildly uncomfortable due to ongoing nausea and perineal pain/discomfort. States that she has been vigilant with hygiene measures with using the restroom since her last episode in September. She also states that she feels that her blood sugars have been fairly well-controlled recently. She did notice that her blood sugars seem to spike on Tuesday and she had decreased appetite, and that was followed by development of infection in the perineal area. She notes that the pain and nausea medications have been moderately helpful for her in the ED. She denies any other acute concerns currently. Will be admitted for further management. 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 History of necrotising fasciitis [...] mg PO QHS 09/16/24 09/15/24 Hi story insulin degludec 100 unit/mL (3 64 unit subcut BID 08/11/25 Unknow n History mL) subcutaneous pen (Tresiba FlexTouch U-100 insulin) Allergy/AdvReac Type Severity Reaction Status Date / Time metformin AdvReac Nausea Verified 08/11/25 13:16 Family History Other Breast cancer Diabetes Surgical [...] Status: Never smoker ROS Constitutional Constitutional: Reports chills and fatigue; Denies fever(s) or weakness Cardiovascular Cardiovascular: Denies chest pain Respiratory/Chest Respiratory/Chest: Denies shortness of breath at rest Gastrointestinal Gastrointestinal: Reports nausea and other Details: Perineal discomfort ; Denies ab (more content not included)... Normal [facility] Hemoglobin A1con 08-11-2025 HbA1c (Bld) [Mass fraction] 13.8 % High <=5.6 [facility] Comment on above: Result Comment: Norm al < 5.7 % Prediabetic 5.7 - 6.4 % Diabetic >or= 6.5 % Please note range changes. Performed By: #### L 501.9985 #### [facility] [address] [place], [address] Hemoglobin A1c percentageOrd ered By: Elias Barahona on 08-11-2025 HbA1c (Bld) [Mass fraction] 13.8 % High <5.7 [facility] Comment on above: Normal < 5.7 % Predi abetic 5.7 - 6.4 % Diabetic >or= 6.5 % Please note range changes. Immature granulocytes/100 WB C Auto (Bld)Ordered By: Myles Cabrera on 08-11-2025 Immature granulocytes/100 WBC (Bld) 0.500 % 0.0-0.9 [facility] Comment on above: IG% - Immature Granu locytes (promyelocytes, myelocytes and metamyelocytes) > 1% indicates that a LEFT SHIFT is Present. International normalized rat io (INR) calculationOrdered By: Myles Cabrera on 08-11-2025 INR Coag (Bld) [Relative time] 0.9 {INR} [facility] Ketones Test strip Ql (U)Ord ered By: Myles Cabrera on 08-11-2025 Ketones Ql (U) 150 mg/dl Negative [facility] Comment on above: CRITICAL VALUE CAMPBELL D TO ASE08/11/25 1553 Kailey Fritz.RESULTS READ BACK BY SAME. Lactic Acidon 08-11-2025 Lactate [Moles/Vol] 1.1 mmol/L Normal 0.0-2.0 [facility] Comment on above: Order Comment: Y Performed By: #### L 501.080 #### [facility] [address] [place], [address] Lactic acid measurementOrder ed By: Myles Cabrera on 08-11-2025 Lactate [Moles/Vol] 1.1 mmol/L 0.0-2.0 [facility] Microscopic analysis of urin e for red blood cells (RBC)Ordered By: Myles Cabrera on 08-11-2025 Microscopic analysis of urine for red blood cells (RBC) 5-10 SEEN /hpf 0-5 [facility] Monocyte percentageOrdered B y: Myles Cabrera on 08-11-2025 Monocytes/100 WBC (Bld) 6.3 % 0-10 [facility] Mucus LM Ql (Urine sed)Order ed By: Myles Cabrera on 08-11-2025 Mucus Ql (Urine sed) 0 SEEN /hpf [facility] Neutrophil percentageOrdered By: Myles Cabrera on 08-11-2025 Neutrophils/100 WBC (Bld) 82.3 % High 47-70 [facility] Nitrite Test strip Ql (U)Ord ered By: Myles Cabrera on 08-11-2025 Nitrite Ql (U) Negative Negative [facility] No Panel InformationOrdered By: Myles Cabrera on 08-11-2025 Blood Gas Sample Site [id number] [facility] Blood Gas Specimen Type KISHAN W [facility] Oxygen Delivery Device Not entered [facility] Nucleated red blood cell per centageOrdered By: Myles Cabrera on 08-11-2025 Nucleated RBC/100 WBC (Bld) [Ratio] 0 % 0-5 [facility] Partial Thromboplast Timeon 08-11-2025 aPTT Coag (Bld) [Time] 24.1 s Normal 24.1-36.2 [facility] Comment on above: Performed By: #### L 501.080 #### [facility] [address] [place], [address] ,Serum,hCG Quali.on 08-11-2025 HCG, SERUM QUAL Negative Normal [facility] Comment on above: Performed By: #### L 501.080 #### [facility] [address] [facility] [place], [address] Protein Test strip Ql (U)Ord ered By: Myles Cabrera on 08-11-2025 Protein Ql (U) 30 mg/dl High Negative [facility] Prothrombin Time w/INRon INR Coag (PPP) [Relative time] 0.9 {INR} Normal [facility] Comment on above: Performed By: #### L 501.080 #### [facility] [address] [place], [address] PT Coag (PPP) [Time] 12.2 s Normal 11.7-14.9 [facility] Comment on above: Performed By: #### L 501.080 #### [facility] [address] [place] [place], [address] Prothrombin timeOrdered By: Myles Cabrera on 08-11-2025 PT Coag (PPP) [Time] 12.2 s 11.7-14.9 [facility] Serum beta-hCG test, qualita tiveOrdered By: Myles Cabrera on 08-11-2025 Beta HCG ( test) Ql Negative [facility] Serum or plasma C reactive p rotein measurement (mass/volume)Ordered By: Elias Barahona on 08-11-2025 CRP [Mass/Vol] 112.00 mg/L High 0.0-3.0 [facility] Squamous epithelial cells de tection in urine sediment by light microscopyOrdered By: Myles Cabrera on 08-11-2025 Epithelial cells.squamous LM Ql (Urine sed) 0-5 SEEN /hpf 5-10 [facility] Urinalysis, Completeon 08-11 EPI,SQUAMOUS 0-5 SEEN Normal 5-10 [facility] Comment on above: Order Comment: CLEAN CATCH Performed By: #### L 400.0001 #### [facility] [address] [place], [address] RBC 5-10 SEEN Normal 0-5 [facility] Comment on above: Order Comment: CLEAN CATCH Performed By: #### L 400.0001 #### [facility] [address] [place], [address] WBC 10-25 SEEN Normal 0-5 [facility] Comment on above: Order Comment: CLEAN CATCH Performed By: #### L 400.0001 #### [facility] [address] [place], [address] BACTERIA 0 SEEN Normal None Seen [facility] Comment on above: Order Comment: CLEAN CATCH Performed By: #### L 400.0001 #### [facility] [address] [place], [address] Mucus Ql (Urine sed) 0 SEEN Normal [facility] Comment on above: Order Comment: CLEAN CATCH Performed By: #### L 400.0001 #### [facility] [address] [place], [place], [address] Urine clarityOrdered By: Lawanda Cabrera on 08-11-2025 Clarity (U) Clear Clear [facility] Urine color determinationOrd ered By: Myles Cabrera on 08-11-2025 Color (U) Straw Yellow [facility] Urine glucose detectionOrder ed By: Myles Cabrera on 08-11-2025 Glucose Ql (U) 1000 mg/dl High Normal [facility] Urine leukocyte esterase det ection by dipstickOrdered By: Myles Cabrera on 08-11-2025 Leukocyte esterase Test strip Ql (U) 100 /ul High Negative [facility] Urine pHOrdered By: Myles vásquez on 08-11-2025 pH (U) 6.0 [pH] 5.0 - 8.0 [facility] Urine sediment bacteria coun t by microscopy (number/high power field)Ordered By: Myles Cabrera on 08-11-2025 Bacteria LM.HPF (Urine sed) [#/Area] 0 /[HPF] None Seen [facility] Urine specific gravity measu rementOrdered By: Myles Cabrera on 08-11-2025 Specific gravity (U) [Rel density] 1.015 1.002-1.030 [facility] Urine urobilinogen measureme ntOrdered By: Myles Cabrera on 08-11-2025 Urobilinogen Ql (U) Normal mg/dl Normal [facility] Venous Blood Gason Blood Gas Type KISHAN Normal [facility] Comment on above: Performed By: #### L 400.0001 #### [facility] [address] [place], [address] CO2 [Moles/Vol] 23 mmol/L Normal 23-33 [facility] Comment on above: Performed By: #### L 400.0001 #### [facility] [address] [place], [address] HCO3 (Bld) [Moles/Vol] 22 mmol/L Normal 22-26 [facility] Comment on above: Performed By: #### L 400.0001 #### [facility] [address] [place], [address] O2 Delivery Dev Not entered Normal [facility] Comment on above: Performed By: #### L 400.0001 #### [facility] [address] [place], [address] [id number] Normal [facility] Comment on above: Performed By: #### L 400.0001 #### [facility] [address] [place], [address] VBG BE -2 mmol/L Low -1.0-3.5 [facility] Comment on above: Performed By: #### L 400.0001 #### [facility] [address] [place], [address] VBG pCO2 31.8 mmHg Low 41-51 [facility] Comment on above: Performed By: #### L 400.0001 #### [facility] [address] [place], [address] VBG pH 7.45 High 7.32-7.42 [facility] Comment on above: Performed By: #### L 400.0001 #### [facility] [address] [place], [address] VBG PO2 32 mmHg Normal 25-40 [facility] Comment on above: Performed By: #### L 400.0001 #### [facility] [address] [place], [place], [address] VBG SO2 67 Normal 50-70 [facility] Comment on above: Performed By: #### L 400.0001 #### [facility] [address] [place], [address] Venous blood base excess carolyne surementOrdered By: Myles Cabrera on 08-11-2025 Base excess Calc (BldV) [Moles/Vol] -2 mmol/L Low -1.0-3.5 [facility] Venous blood bicarbonate carolyne surementOrdered By: Myles Cabrera on 08-11-2025 HCO3 (Bld) [Moles/Vol] 22 mmol/L 22-26 [facility] Venous blood oxygen saturati on measurementOrdered By: Myles Cabrera on 08-11-2025 Oxygen saturation in Blood 67 % 50-70 [facility] Venous blood pH measurementO rdered By: Myles Cabrera on 08-11-2025 pH (BldV) 7.45 [pH] High 7.32-7.42 [facility] Venous blood partial pressur e of carbon dioxide measurementOrdered By: Myles Cabrera on 08-11-2025 CO2 (BldV) [Partial pressure] 31.8 mm[Hg] Low 41-51 [facility] Venous blood partial pressur e of oxygen measurementOrdered By: Myles Cabrera on 08-11-2025 Oxygen (BldV) [Partial pressure] 32 mm[Hg] 25-40 [facility] White blood cell countOrdere d By: Myles Cabrera on 08-11-2025 White blood cell count 10-25 SEEN /hpf 0-5 [facility] Abdomen/Pelvis W IV Cont ONL Yon 01-05-2025 Abdomen/Pelvis W IV Cont ONLY [facility] Imaging Services [address] [place], [place] [address] Abdomen/Pelvis W IV Cont ONLY MR#: [id number] Acct: [id number] Name: TRICE ZAMBRANO Rep #: [id number] : 1980 F 44 From: Kannan Acosta PCP: Dr. Joaquin Huitron MD Status: REG ER Study: Abdomen/Pelvis W IV Cont ONLY Date of Exam: Exam# [id number] Ordering Dr: Jose Flores PROCEDURE: ABDOMEN/PELVIS W IV CONT ONLY REASON [...] use of iterative reconstruction technique). Reading Location: [facility] CC: FARA Flores; Dr. Joaquin Huitron MD Meat Carrier: Signed Normal [facility] CBC W/Diff, Automatedon 03-0 Absolute Lymph 2.30 X10 3/uL Normal 0.83-4.51 [facility] Comment on above: Performed By: #### L 501.080 #### [facility] [address] [place], [place], [address] Absolute Neut 5.5 X10 3/uL Normal 2.0-7.7 [facility] Comment on above: Performed By: #### L 501.080 #### [facility] [address] [place], [address] Basophils/100 WBC (Bld) 0.6 % Normal 0-1 [facility] Comment on above: Performed By: #### L 501.080 #### [facility] [address] [place], [address] Eosinophils/100 WBC (Bld) 2.3 % Normal 0-5 [facility] Comment on above: Performed By: #### L 501.080 #### [facility] [address] [place], [address] Erythrocyte distribution width (RBC) [Ratio] 13.0 % Normal 11.6-14.6 [facility] Comment on above: Performed By: #### L 501.080 #### [facility] [address] [place], [address] Hematocrit (Bld) [Volume fraction] 40.4 % Normal 37-47 [facility] Comment on above: Performed By: #### L 501.080 #### [facility] [address] [place], [address] Hemoglobin (Bld) [Mass/Vol] 13.6 g/dL Normal 12.0-15.0 [facility] Comment on above: Performed By: #### L 501.080 #### [facility] [address] [place], [address] IG% 0.700 Normal 0.0-0.9 [facility] Comment on above: Result Comment: IG% - Immature Granulocytes (promyelocytes, myelocytes and metamyelocytes) > 1% indicates that a LEFT SHIFT is Present. Performed By: #### L 501.080 #### [facility] [address] [place], [address] Lymphocytes/100 WBC (Bld) 26.4 % Normal 19-41 [facility] Comment on above: Performed By: #### L 501.080 #### [facility] [address] [place], [address] MCH (RBC) [Entitic mass] 29.6 pg Normal 27.0-32.0 [facility] Comment on above: Performed By: #### L 501.080 #### [facility] [address] [place], [address] MCHC (RBC) [Mass/Vol] 33.7 g/dL Normal 32-[address] [facility] Comment on above: Performed By: #### L 501.080 #### [facility] [address] [place], [address] MCV (RBC) [Entitic vol] 88.0 fL Normal 81-99 [facility] Comment on above: Performed By: #### L 501.080 #### [facility] [address] [place], [address] Monocytes/100 WBC (Bld) 6.9 % Normal 0-10 [facility] Comment on above: Performed By: #### L 501.080 #### [facility] [address] [place], [address] Neutrophils/100 WBC (Bld) 63.1 % Normal 47-70 [facility] Comment on above: Performed By: #### L 501.080 #### [facility] [address] [place], [address] Nucleated RBC (Bld) [#/Vol] 0 10*3/uL Normal 0-5 [facility] Comment on above: Performed By: #### L 501.080 #### [facility] [address] [place], [address] Platelet mean volume (Bld) [Entitic vol] 11.7 fL Normal 6.2-12.0 [facility] Comment on above: Performed By: #### L 501.080 #### [facility] [address] [place], [address] Platelets (Bld) [#/Vol] 213 10*3/uL Normal 150-450 [facility] Comment on above: Performed By: #### L 501.080 #### [facility] [address] [place], [address] RBC (Bld) [#/Vol] 4.59 10*6/uL Normal 4.2-5.4 [facility] Comment on above: Performed By: #### L 501.080 #### [facility] [address] [place], [address] RDW SD 41.4 fl Normal 35.1-43.9 [facility] Comment on above: Performed By: #### L 501.080 #### [facility] [address] [place], [address] WBC (Bld) [#/Vol] 8.7 10*3/uL Normal 4.4-11.0 [facility] Comment on above: Performed By: #### L 501.080 #### [facility] [address] [place], [address] Comprehensive Metabolic Prof ilon 01-05-2025 Albumin/Globulin [Mass ratio] 1.2 {ratio} Normal 0.9-2.4 [facility] Comment on above: Performed By: #### L 501.080 #### [facility] [address] [place], [address] ALK PHOS 84 U/L Normal 35-104 [facility] Comment on above: Performed By: #### L 501.080 #### [facility] [address] [place], [address] ALT [Catalytic activity/Vol] 15 U/L Normal <=34 [facility] Comment on above: Performed By: #### L 501.080 #### [facility] [address] [place], [address] AST [Catalytic activity/Vol] 17 U/L Normal <=31 [facility] Comment on above: Result Comment: Hemo lysis present, Results??could be affected. ?? Performed By: #### L 501.080 #### [facility] [address] [place], [address] Bilirubin [Mass/Vol] 0.20 mg/dL Normal 0.00-1.30 [facility] Comment on above: Performed By: #### L 501.080 #### [facility] [address] [place], [address] Globulin (S) [Mass/Vol] 3.2 g/dL Normal 2.2-4.2 [facility] Comment on above: Performed By: #### L 501.080 #### [facility] [address] [place], [address] Albumin [Mass/Vol] 3.8 g/dL Normal 3.5-5.0 [facility] Comment on above: Performed By: #### L 501.080 #### [facility] [address] [place], [address] Anion gap [Moles/Vol] 12 mmol/L Normal 5-[address] [facility] Comment on above: Performed By: #### L 501.080 #### [facility] [address] [place], [address] BUN/CRE 48.2 RATIO High 10-20 [facility] Comment on above: Performed By: #### L 501.080 #### [facility] [address] [place], [address] Calcium [Mass/Vol] 9.4 mg/dL Normal 7.6-11.0 [facility] Comment on above: Performed By: #### L 501.080 #### [facility] [address] [place], [address] Chloride [Moles/Vol] 105 mmol/L Normal 96-108 [facility] Comment on above: Performed By: #### L 501.080 #### [facility] [address] [place], [address] CO2 [Moles/Vol] 18.6 mmol/L Low 22.0-29.0 [facility] Comment on above: Performed By: #### L 501.080 #### [facility] [address] [place], [address] Creatinine [Mass/Vol] 0.76 mg/dL Normal 0.70-1.[address] [facility] Comment on above: Performed By: #### L 501.080 #### [facility] [address] [place], [address] ECRCL 125.90 ml/min Normal 50-250 [facility] Comment on above: Performed By: #### L 501.080 #### [facility] [address] [place], [address] GFR/1.73 sq M.predicted among non-blacks MDRD (S/P/Bld) [Vol rate/Area] 99 mL/min/{1.73_m2} Normal >60 [facility] Comment on above: Result Comment: mL/m in/1.73m2 CKD-EPI Creatinine Equation (2020) Performed By: #### L 501.080 #### [facility] [address] [place], [address] Glucose [Mass/Vol] 179 mg/dL High 70-99 [facility] Comment on above: Performed By: #### L 501.080 #### [facility] [address] [place], [address] Potassium [Moles/Vol] 4.0 mmol/L Normal 3.3-5.[address] [facility] Comment on above: Result Comment: Hemo lysis present, Results??could be affected. ?? Performed By: #### L 501.080 #### [facility] [address] [place], [address] Sodium [Moles/Vol] 136 mmol/L Normal 133-145 [facility] Comment on above: Performed By: #### L 501.080 #### [facility] [address] [place], [address] T PROT 7.1 g/dL Normal 5.9-8.4 [facility] Comment on above: Performed By: #### L 501.080 #### [facility] [address] [place], [address] Urea nitrogen [Mass/Vol] 37 mg/dL High 4-19 [facility] Comment on above: Performed By: #### L 501.080 #### [facility] [address] [place], [address] Emergency Department Summary on 01-05-2025 Emergency Department Summary [facility] Medical Records Department [address] [place] [address] Emergency Department Summary 01/05/25 MR#: [id number] Acct: [id number] Name: TRICE ZAMBRANO Rep #: [id number] : 1980 44 From: Myles Cabrera DO [...] getting worse over the last 3 days. [facility] Medical History Physical exam, pre-employment History [...] pustules. Backs (more content not included)... Normal [facility] Lipaseon 01-05-2025 Lipase [Catalytic activity/Vol] 56 U/L Normal 13-75 [facility] Comment on above: Result Comment: Dominic gong note: LIPASE revised reference range effective 23. New Lipase methodology. Expected to produce lower values than the previous assay method. NEW Reference Range: 13 - 75 U/L Performed By: #### L 501.080 #### [facility] [address] [place], [address] ,Urineon 01-05-2025 Beta HCG ( test) Ql (U) Negative Normal [facility] Comment on above: Result Comment: Very dilute urine specimens, as indicated by a low specific gravity, may not contain tour sales representative levels of hCG. If is still suspected, a first morning urine specimen should be collected 48 hours later and tested. Performed By: #### L 501.080 #### [facility] [address] [place], [address] Urinalysis, Completeon 01-05 AMORPHOUS 1+ URATE Normal [facility] Comment on above: Order Comment: TOD CTOR TO SPECIFY Performed By: #### L 501.080 #### [facility] [address] [place], [address] EPI,SQUAMOUS 0-5 SEEN Normal 5-10 [facility] Comment on above: Order Comment: TOD CTOR TO SPECIFY Performed By: #### L 501.080 #### [facility] [address] [place], [address] RBC 0-5 SEEN Normal 0-5 [facility] Comment on above: Order Comment: TOD CTOR TO SPECIFY Performed By: #### L 501.080 #### [facility] [address] [place], [address] WBC 10-25 SEEN Normal 0-5 [facility] Comment on above: Order Comment: TOD CTOR TO SPECIFY Performed By: #### L 501.080 #### [facility] [address] [place], [address] BACTERIA 0 SEEN Normal None Seen [facility] Comment on above: Order Comment: TOD CTOR TO SPECIFY Performed By: #### L 501.080 #### [facility] [address] [place], [address] Mucus Ql (Urine sed) 0 SEEN Normal [facility] Comment on above: Order Comment: COLLE CTOR TO SPECIFY Performed By: #### L 501.080 #### [facility] [address] [place], [address] CNOVon 10-22-2024 CNOV Office Visit (FAMPWS ) TRICE ZAMBRANO ([id number]) 1980 F Date Time Provider Department 10/22/24 7:20 AM [facility] During your visit today, we recorded [...] fasting 100-162 range with majority <140. Before [id number] with Majority around the 130-160s. Patient's last HgA1C was Hemoglobin A1C (%) Date Value 04/06/2024 8.3 08/03/2023 7.0 07/15/2021 6.9 06/01/2021 7.5 ) Last Ophthalmology exam was within the past 6 months and was negative for Diabetic Retinopathy. [facility]. Last Podiatry exam was within the past [...] File Prior to Visit Medication Sig Insulin [place], Disposable, (BD ULTRA-FINE VINOD PEN NEEDLE) 32 [...] glucose twice daily, 250.02. Insulin yes. Insulin [place], Disposable, (BD ULTRA-FINE VINOD PEN NEEDLE) 32 [...] pain, le (more content not included)... Normal [facility] 10-22-2024 RENÉ Telephone (BRENDA) TRICE ZAMBRANO ([id number]) 1980 F Date Time Provider Department 10/22/24 IRLANDA HOGAN During your visit today, we recorded the following information about you: Irlanda Hogan APRN.CNP 10/22/2024 4:34 PM Signed Prescription refills sent [...] by mouth daily at bedtime. - Insulin [place], Disposable, (BD ULTRA-FINE VINOD PEN NEEDLE) 32 gauge x 5/32 Inject 100 Each subcutaneously four times daily. - Lancets (ACCU-CHEK SOFTCLIX LANCETS) Test blood sugar(s) 4 times daily and as needed. Dx: 250.02. Insulin: Yes - Blood-Glucose Meter (ACCU-CHEK KENNY PLUS METER) Test glucose twice daily, 250.02. Insulin yes. - Insulin [place], Disposable, (BD ULTRA-FINE VINOD PEN NEEDLE) 32 gauge x 5/32 Use one needle for each dose. 5/day. - blood sugar diagnostic (PlynkedTOUCH VERIO TEST STRIPS) test strip Test blood [...] Encounter Status:Closed by BRITNEY ARCE on 10/22/24 [facility] [place] 09-25-2024 CNOV Office Visit (BRISAPWS ) KENYATRICE ([id number]) 1980 F Date Time Provider Department 09/25/24 7:20 AM IRLANDA HOGAN During your visit today, we recorded the following information about you: Pulse Respiration Blood pressure Weight 82/minute 16/minute 136/88 110.6 kg Irlanda Hogan APRN.CNP 09/25/2024 8:29 AM Signed 09/25/2024 Patient presents with: Hospital F/U: TCM; [facility] SUBJECTIVE: This is a 44 year old that is here today for Above Complaints, HOSPITAL/ER FOLLOW UP: Reason for visit: perianal pain and swelling Which facility: [facility] Date of visit: 09/16/2024-09/18/2024 Diagnosis: rectal abscess [...] reviewed TRANSITION CARE MANAGEMENT (TCM) INITIAL CONTACT Probation Supervisor Outreach Provider Action/FYI Initial contact with patient post discharge, spoke to patient. Patient identified by name and . TRANSITION CARE MANAGEMENT INITIAL OUTREACH DOCUMENTATION: 09/19/2024 Date of Outreach: Date of Discharge 09/18/2024 SUMMARY: -Pt discharged from [facility] on 09/18/24. -Admitted for: Rectal Abcess Do [...] MEDICATIONS Current Outpatient Medications Medication Sig Insulin [place], Disposable, (BD ULTRA-FINE VINOD PEN NEEDLE) 32 [...] glucose twice daily, 250.02. Insulin yes. Insulin [place], Disposable, (BD ULTRA-FINE VINOD PEN NEEDLE) 32 [...] appearing, a (more content not included)... Normal [facility] Culture, Blood (WB)on 2023 CUB Blood cultures x2, f rom two different sites No growth in [address] [facility] Comment on above: Performed By: #### L 501.080 #### [facility] [address] [place], [place], [address] Urine Cultureon 09-19-2024 URC Streptococcus agalactiae (B) [place] Count 11,000-25,000 Streptococcus agalactiae (B): REACTION Ampicillin Islt BLANQUITA <=0.25 Penicillin G Islt BLANQUITA <=0.06 S cefTRIAXone Islt BLANQUITA <=0.12 S Clindamycin Islt BLANQUITA <=0.25 S Clindamycin.induced Susc Islt NEG Linezolid Islt BLANQUITA <=2 S Vancomycin Islt BLANQUITA 0.[address] [facility] Comment on above: Performed By: #### L 501.080 #### [facility] [address] [place], [place], [address] Bedside Glucoseon 09-18-2024 FINGERSTICK GLU 176 mg/dL High 74-106 [facility] Comment on above: Result Comment: EMMA GEMENT OF PATIENT CARE PER NURSING PROTOCOL Performed By: #### L 501.080 #### [facility] [address] [place], [address] FINGERSTICK GLU 191 mg/dL High 74-106 [facility] Comment on above: Result Comment: EMMA GEMENT OF PATIENT CARE PER NURSING PROTOCOL Performed By: #### L 501.080 #### [facility] [address] [place], [address] Discharge Instructionon 09-07 Discharge Instruction [facility] Medical Records Department [address] [place] [address] Instructions for Home/Discharge Instructions 09/18/24 1056 MR#: [id number] Acct: [id number] Name: TRICE ZAMBRANO Rep #: [id number] : 1980 44 From: Jorge Frazier DO [...] placed): Home, Self Care 09/18/24 1101 Jorge Frazier DO CC: Dr. Ken Sosa MD; Dr. Joaquin Huitron MD; Dr. Fran Daley MD; Dr. Tristin Solo MD Signed Normal [facility] Vancomycin, Trough Levelon 11-18-2023 VANCO, TROUGH 10.3 ug/mL Normal 5.0-15.0 [facility] Comment on above: Order Comment: Comme nts: Trough to be drawn 30 mins prior to scheduled [id number] Result Comment: VANC OMYCIN STANDARED DRUG THERAPY TROUGH LEVEL: 5.0 - 15.0 mg/L VANCOMYCIN HIGH INTENSITY THERAPY TROUGH LEVEL: 15.0 - 20.0 mg/L High Intensity therapy recommended for serious life threatening infections include: - Meningitis -Endocarditis -Pneumonia (Ventilator/Healtcare Associated) -Sepsis PLEASE CONTACT PHARMACY SERVICES (#[id number]) FOR INTERPRETATION OF RESULTS. Performed By: #### L 501.080 #### [facility] [address] [place], [address] Basic Metabolic Profile (BMP )on 09-17-2024 BUN/CRE 18.9 RATIO Normal 10-20 [facility] Comment on above: Performed By: #### L 501.080 #### [facility] [address] [place], [address] CA,Total 8.3 mg/dL Low 8.5-10.1 [facility] Comment on above: Performed By: #### L 501.080 #### [facility] [address] [place], [address] Chloride [Moles/Vol] 110 mmol/L High 98-107 [facility] Comment on above: Performed By: #### L 501.080 #### [facility] [address] [place], [address] CO2 [Moles/Vol] 24.0 mmol/L Normal 21.0-32.0 [facility] Comment on above: Performed By: #### L 501.080 #### [facility] [address] [place], [address] Creatinine [Mass/Vol] 0.84 mg/dL Normal 0.55-1.[address] [facility] Comment on above: Result Comment: The validity of the calculated GFR GFRAA in patients over 70 years has not been determined. Clinical correlation is essential. Performed By: #### L 501.080 #### [facility] [address] [place], [address] ECRCL 98.24 ml/min Normal [facility] Comment on above: Performed By: #### L 501.080 #### [facility] [address] [place], [address] EST GFR - AA 94 mL/min Normal >60 [facility] Comment on above: Result Comment: Afri can Somali GFR Calc Performed By: #### L 501.080 #### [facility] [address] [place], [address] GAP 6 Normal 5-15 [facility] Comment on above: Performed By: #### L 501.080 #### [facility] [address] [place], [address] GFR/1.73 sq M.predicted among non-blacks MDRD (S/P/Bld) [Vol rate/Area] 78 mL/min/{1.73_m2} Normal >60 [facility] Comment on above: Result Comment: Non- GFR Calc Performed By: #### L 501.080 #### [facility] [address] [place], [address] Glucose [Mass/Vol] 166 mg/dL High 74-106 [facility] Comment on above: Result Comment: Fast ing Glucose result greater than or equal to 126 mg/dL suggests DIABETES MELLITUS per A.D.A. criteria. Performed By: #### L 501.080 #### [facility] [address] [place], [address] Potassium [Moles/Vol] 4.0 mmol/L Normal 3.5-5.[address] [facility] Comment on above: Performed By: #### L 501.080 #### [facility] [address] [place], [address] Sodium [Moles/Vol] 140 mmol/L Normal 136-145 [facility] Comment on above: Performed By: #### L 501.080 #### [facility] [address] [place], [address] Urea nitrogen [Mass/Vol] 16 mg/dL Normal 7-18 [facility] Comment on above: Performed By: #### L 501.080 #### [facility] [address] [place], [address] Bedside Glucoseon 09-17-2024 FINGERSTICK GLU 246 mg/dL High 74-106 [facility] Comment on above: Result Comment: EMMA GEMENT OF PATIENT CARE PER NURSING PROTOCOL Performed By: #### L 501.080 #### [facility] [address] [place], [address] FINGERSTICK GLU 106 mg/dL Normal 74-106 [facility] Comment on above: Result Comment: EMMA GEMENT OF PATIENT CARE PER NURSING PROTOCOL Performed By: #### L 501.080 #### [facility] [address] [place], [address] FINGERSTICK GLU 102 mg/dL Normal 74-106 [facility] Comment on above: Result Comment: EMMA GEMENT OF PATIENT CARE PER NURSING PROTOCOL Performed By: #### L 501.080 #### [facility] [address] [place], [address] FINGERSTICK GLU 102 mg/dL Normal 74-106 [facility] Comment on above: Result Comment: EMMA GEMENT OF PATIENT CARE PER NURSING PROTOCOL Performed By: #### L 501.080 #### [facility] [address] [place], [address] FINGERSTICK GLU 160 mg/dL High 74-106 [facility] Comment on above: Result Comment: EMMA GEMENT OF PATIENT CARE PER NURSING PROTOCOL Performed By: #### L 501.080 #### [facility] [address] [place], [address] FINGERSTICK GLU 162 mg/dL High 74-106 [facility] Comment on above: Result Comment: EMMA GEMENT OF PATIENT CARE PER NURSING PROTOCOL Performed By: #### L 501.080 #### [facility] [address] [place], [address] CBC W/Diff, Automatedon 11-11 07-2023 Absolute Lymph 1.60 X10 3/uL Normal 0.83-4.51 [facility] Comment on above: Performed By: #### L 501.080 #### [facility] [address] [place], [address] Absolute Neut 4.3 X10 3/uL Normal 2.0-7.7 [facility] Comment on above: Performed By: #### L 501.080 #### [facility] [address] [place], [address] Basophils/100 WBC (Bld) 0.5 % Normal 0-1 [facility] Comment on above: Performed By: #### L 501.080 #### [facility] [address] [place], [address] Eosinophils/100 WBC (Bld) 1.1 % Normal 0-5 [facility] Comment on above: Performed By: #### L 501.080 #### [facility] [address] [place], [address] Erythrocyte distribution width (RBC) [Ratio] 13.0 % Normal 11.6-14.6 [facility] Comment on above: Performed By: #### L 501.080 #### [facility] [address] [place], [address] Hematocrit (Bld) [Volume fraction] 38.0 % Normal 37-47 [facility] Comment on above: Performed By: #### L 501.080 #### [facility] [address] [place], [address] Hemoglobin (Bld) [Mass/Vol] 12.5 g/dL Normal 12.0-15.0 [facility] Comment on above: Performed By: #### L 501.080 #### [facility] [address] [place], [address] IG% 0.500 Normal 0.0-0.9 [facility] Comment on above: Result Comment: IG% - Immature Granulocytes (promyelocytes, myelocytes and metamyelocytes) > 1% indicates that a LEFT SHIFT is Present. Performed By: #### L 501.080 #### [facility] [address] [place], [address] Lymphocytes/100 WBC (Bld) 24.3 % Normal 19-41 [facility] Comment on above: Performed By: #### L 501.080 #### [facility] [address] [place], [address] MCH (RBC) [Entitic mass] 29.2 pg Normal 27.0-32.0 [facility] Comment on above: Performed By: #### L 501.080 #### [facility] [address] [place], [address] MCHC (RBC) [Mass/Vol] 32.9 g/dL Normal 32-[address] [facility] Comment on above: Performed By: #### L 501.080 #### [facility] [address] [place], [address] MCV (RBC) [Entitic vol] 88.8 fL Normal 81-99 [facility] Comment on above: Performed By: #### L 501.080 #### [facility] [address] [place], [address] Monocytes/100 WBC (Bld) 7.8 % Normal 0-10 [facility] Comment on above: Performed By: #### L 501.080 #### [facility] [address] [place], [address] Neutrophils/100 WBC (Bld) 65.8 % Normal 47-70 [facility] Comment on above: Performed By: #### L 501.080 #### [facility] [address] [place], [address] Nucleated RBC (Bld) [#/Vol] 0 10*3/uL Normal 0-5 [facility] Comment on above: Performed By: #### L 501.080 #### [facility] [address] [place], [address] Platelet mean volume (Bld) [Entitic vol] 11.9 fL Normal 6.2-12.0 [facility] Comment on above: Performed By: #### L 501.080 #### [facility] [address] [place], [address] Platelets (Bld) [#/Vol] 200 10*3/uL Normal 150-450 [facility] Comment on above: Performed By: #### L 501.080 #### [facility] [address] [place], [address] RBC (Bld) [#/Vol] 4.28 10*6/uL Normal 4.2-5.4 [facility] Comment on above: Performed By: #### L 501.080 #### [facility] [address] [place], [address] RDW SD 42.2 fl Normal 35.1-43.9 [facility] Comment on above: Performed By: #### L 501.080 #### [facility] [address] [place], [address] WBC (Bld) [#/Vol] 6.6 10*3/uL Normal 4.4-11.0 [facility] Comment on above: Performed By: #### L 501.080 #### [facility] [address] [place], [place], [address] Comprehensive Metabolic Prof ilon 09-17-2024 Albumin/Globulin [Mass ratio] 1.0 {ratio} Normal 0.9-2.4 [facility] Comment on above: Performed By: #### L 501.080 #### [facility] [address] [place], [place], [address] Consultation - Infectious Dx on 09-17-2024 Consultation - Infectious Dx [facility] Medical Records Department [address] [place] [address] Consultation - Infectious Dx 09/17/24 1336 MR#: [id number] Acct: [id number] Name: TRICE ZAMBRANO Rep #: [id number] : 1980 44 From: Fran Daley MD PCP: Dr. Joaquin Huitron MD Status:ADM IN Location: [place] [address]-1 Assessment Plan Assessment/Plan (1) Abscess or cellulitis [...] performed and neg except as noted above. [facility] Medical History Physical exam, pre-employment History [...] % (Auto) 65.8, Lymph % (Auto) 24.3, [place] % (Auto) 7.8, Eos % (Auto) 1.1, [...] Shirley Hunter (more content not included)... Normal [facility] Consultation - Surgicalon Consultation - Surgical [facility] Medical Records Department [address] [place] [address] Consultation - Surgical 09/17/24 0914 MR#: [id number] Acct: [id number] Name: TRICE ZAMBRANO Rep #: [id number] : 1980 44 From: Grace JOE PA-C PCP: Dr. Joaquin Huitron MD Status:ADM IN Location: [place] [id number] Assessment Plan Assessment/Plan (1) Abscess or cellulitis of perineum: PLAN: I have been consulted in conjunction with Dr. Solo. He has independently evaluate this patient. Patient is a 44 y/o F who presents with pain in the gluteal fold secondary to cellulitis. Patient with history of necrotizing fasciitis in . No drainable abscess is noted on examination [...] the abscess. She states she returned to [facility] and was admitted to ICU. She was [...] 198. Lactic acid 1.0. Glucose 319--> 166. [facility] Medical History Physical exam, pre-employment History [...] addt'l complaint (more content not included)... Normal [facility] Hemoglobin A1con 09-17-2024 HbA1c (Bld) [Mass fraction] 12.7 % High 3.8-5.6 [facility] Comment on above: Result Comment: Norm al < 5.7 % Prediabetic 5.7 - 6.4 % Diabetic >or= 6.5 % Please note range changes. Performed By: #### L 501.080 #### [facility] [address] [place], [address] Liver Profileon 09-17-2024 Albumin [Mass/Vol] 2.9 g/dL Low 3.2-5.0 [facility] Comment on above: Performed By: #### L 501.080 #### [facility] [address] [place], [address] ALK P 68 U/L Normal 45-117 [facility] Comment on above: Performed By: #### L 501.080 #### [facility] [address] [place], [address] ALT [Catalytic activity/Vol] 30 U/L Normal 13-56 [facility] Comment on above: Performed By: #### L 501.080 #### [facility] [address] [place], [address] AST [Catalytic activity/Vol] 18 U/L Normal 15-37 [facility] Comment on above: Performed By: #### L 501.080 #### [facility] [address] [place], [address] Bilirubin [Mass/Vol] 0.40 mg/dL Normal 0.20-1.00 [facility] Comment on above: Result Comment: For patients on eltrombopag therapy, use of Dimension [place] TBIL is not recommended. Performed By: #### L 501.080 #### [facility] [address] [place], [address] Bilirubin.direct [Mass/Vol] 0.09 mg/dL Normal 0.00-0.30 [facility] Comment on above: Performed By: #### L 501.080 #### [facility] [address] [place], [address] Globulin (S) [Mass/Vol] 3.0 g/dL Normal 2.2-4.2 [facility] Comment on above: Performed By: #### L 501.080 #### [facility] [address] [place], [address] T PROT 5.9 g/dL Low 6.4-8.2 [facility] Comment on above: Performed By: #### L 501.080 #### [facility] [address] [place], [address] Magnesiumon 09-17-2024 Magnesium [Mass/Vol] 1.9 mg/dL Normal 1.6-2.6 [facility] Comment on above: Performed By: #### L 501.080 #### [facility] [address] [place], [address] Phosphoruson 09-17-2024 Phosphate [Mass/Vol] 3.7 mg/dL Normal 2.5-4.9 [facility] Comment on above: Performed By: #### L 501.080 #### [facility] [address] [place], [address] Prothrombin Time w/INRon INR Coag (PPP) [Relative time] 1.0 {INR} Normal [facility] Comment on above: Performed By: #### L 501.080 #### [facility] [address] [place], [address] PT Coag (PPP) [Time] 13.2 s Normal 11.7-14.9 [facility] Comment on above: Performed By: #### L 501.080 #### [facility] [address] [place], [address] Thyroid Stim Hormone (TSH)on 09-17-2024 TSH 1.450 uIU/mL Normal 0.358-3.740 [facility] Comment on above: Performed By: #### L 501.080 #### [facility] [address] [place], [address] Bedside Glucoseon 09-16-2024 FINGERSTICK GLU 359 mg/dL High 74-106 [facility] Comment on above: Result Comment: EMMA GEMENT OF PATIENT CARE PER NURSING PROTOCOL Performed By: #### L 501.080 #### [facility] [address] [place], [address] FINGERSTICK GLU 371 mg/dL High [facility] Comment on above: Result Comment: EMMA GEMENT OF PATIENT CARE PER NURSING PROTOCOL Performed By: #### L 501.080 #### [facility] [address] [place], [address] CBC W/Diff, Automatedon 09-07 Absolute Lymph 1.60 X10 3/uL Normal 0.83-4.51 [facility] Comment on above: Performed By: #### L 501.080 #### [facility] [address] [place], [address] Absolute Neut 5.1 X10 3/uL Normal 2.0-7.7 [facility] Comment on above: Performed By: #### L 501.080 #### [facility] [address] [place], [address] Basophils/100 WBC (Bld) 0.5 % Normal 0-1 [facility] Comment on above: Performed By: #### L 501.080 #### [facility] [address] [place], [address] Eosinophils/100 WBC (Bld) 0.8 % Normal 0-5 [facility] Comment on above: Performed By: #### L 501.080 #### [facility] [address] [place], [address] Erythrocyte distribution width (RBC) [Ratio] 12.8 % Normal 11.6-14.6 [facility] Comment on above: Performed By: #### L 501.080 #### [facility] [address] [place], [address] Hematocrit (Bld) [Volume fraction] 41.3 % Normal 37-47 [facility] Comment on above: Performed By: #### L 501.080 #### [facility] [address] [place], [address] Hemoglobin (Bld) [Mass/Vol] 13.9 g/dL Normal 12.0-15.0 [facility] Comment on above: Performed By: #### L 501.080 #### [facility] [address] [place], [address] IG% 0.400 Normal 0.0-0.9 [facility] Comment on above: Result Comment: IG% - Immature Granulocytes (promyelocytes, myelocytes and metamyelocytes) > 1% indicates that a LEFT SHIFT is Present. Performed By: #### L 501.080 #### [facility] [address] [place], [address] Lymphocytes/100 WBC (Bld) 21.7 % Normal 19-41 [facility] Comment on above: Performed By: #### L 501.080 #### [facility] [address] [place], [address] MCH (RBC) [Entitic mass] 29.2 pg Normal 27.0-32.0 [facility] Comment on above: Performed By: #### L 501.080 #### [facility] [address] [place], [address] MCHC (RBC) [Mass/Vol] 33.7 g/dL Normal 32-[address] [facility] Comment on above: Performed By: #### L 501.080 #### [facility] [address] [place], [address] MCV (RBC) [Entitic vol] 86.8 fL Normal 81-99 [facility] Comment on above: Performed By: #### L 501.080 #### [facility] [address] [place], [address] Monocytes/100 WBC (Bld) 7.7 % Normal 0-10 [facility] Comment on above: Performed By: #### L 501.080 #### [facility] [address] [place], [address] Neutrophils/100 WBC (Bld) 68.9 % Normal 47-70 [facility] Comment on above: Performed By: #### L 501.080 #### [facility] [address] [place], [address] Nucleated RBC (Bld) [#/Vol] 0 10*3/uL Normal 0-5 [facility] Comment on above: Performed By: #### L 501.080 #### [facility] [address] [place], [address] Platelet mean volume (Bld) [Entitic vol] 12.1 fL High 6.2-12.0 [facility] Comment on above: Performed By: #### L 501.080 #### [facility] [address] [place], [address] Platelets (Bld) [#/Vol] 198 10*3/uL Normal 150-450 [facility] Comment on above: Performed By: #### L 501.080 #### [facility] [address] [place], [address] RBC (Bld) [#/Vol] 4.76 10*6/uL Normal 4.2-5.4 [facility] Comment on above: Performed By: #### L 501.080 #### [facility] [address] [place], [address] RDW SD 40.1 fl Normal 35.1-43.9 [facility] Comment on above: Performed By: #### L 501.080 #### [facility] [address] [place], [address] WBC (Bld) [#/Vol] 7.4 10*3/uL Normal 4.4-11.0 [facility] Comment on above: Performed By: #### L 501.080 #### [facility] [address] [place], [address] CNOVon 09-16-2024 CNOV Office Visit (UCWSTR ) TRICE ZAMBRANO ([id number]) 1980 F Date Time Provider Department 09/16/24 10:15 AM RONY CHÁVEZ [facility] During your visit today, we recorded the following information about you: Temperature Pulse Respiration Blood pressure 98.6 degrees 95/minute 21/minute 130/80 Weight 109.9 kg CedricRony APRN.[employer] 09/16/2024 11:03 AM Signed Patient came in [...] [B99.9] Prescriptions as of 09/16/2024 - Insulin [place], Disposable, (BD ULTRA-FINE VINOD PEN NEEDLE) 32 [...] twice daily, 250.02. Insulin yes. - Insulin [place], Disposable, (BD ULTRA-FINE VINOD PEN NEEDLE) 32 [...] Status:Closed by RONY CHÁVEZ on 09/16/24 Normal [facility] Metabolic Prof apolinaron 09-16-2024 Albumin [Mass/Vol] 3.3 g/dL Normal 3.2-5.0 [facility] Comment on above: Performed By: #### L 400.0001 #### [facility] [address] [facility] [place], [address] Albumin/Globulin [Mass ratio] 0.9 {ratio} Normal 0.9-2.4 [facility] Comment on above: Performed By: #### L 400.0001 #### [facility] [address] [place], [address] ALK P 84 U/L Normal 45-117 [facility] Comment on above: Performed By: #### L 400.0001 #### [facility] [address], [address] ALT [Catalytic activity/Vol] 26 U/L Normal 13-56 [facility] Comment on above: Performed By: #### L 400.0001 #### [facility] [address] [place], [address] AST [Catalytic activity/Vol] 16 U/L Normal 15-37 [facility] Comment on above: Performed By: #### L 400.0001 #### [facility] [address] [place], [address] Bilirubin [Mass/Vol] 0.30 mg/dL Normal 0.20-1.00 [facility] Comment on above: Result Comment: For patients on eltrombopag therapy, use of Dimension [place] TBIL is not recommended. Performed By: #### L 400.0001 #### [facility] [address] [place], [address] BUN/CRE 19.2 RATIO Normal 10-20 [facility] Comment on above: Performed By: #### L 400.0001 #### [facility] [address] [place], [address] CA,Total 9.0 mg/dL Normal 8.5-10.1 [facility] Comment on above: Performed By: #### L 400.0001 #### [facility] [address] [place], [address] Chloride [Moles/Vol] 106 mmol/L Normal 98-107 [facility] Comment on above: Performed By: #### L 400.0001 #### [facility] [address] [place], [address] CO2 [Moles/Vol] 25.0 mmol/L Normal 21.0-32.0 [facility] Comment on above: Performed By: #### L 400.0001 #### [facility] [address] [place], [address] Creatinine [Mass/Vol] 0.99 mg/dL Normal 0.55-1.[address] [facility] Comment on above: Result Comment: The validity of the calculated GFR GFRAA in patients over 70 years has not been determined. Clinical correlation is essential. Performed By: #### L 400.0001 #### [facility] [address] [place], [address] ECRCL 93.74 ml/min Normal [facility] Comment on above: Performed By: #### L 400.0001 #### [facility] [address] [place], [address] EST GFR - AA 78 mL/min Normal >60 [facility] Comment on above: Result Comment: Afri can Somali GFR Calc Performed By: #### L 400.0001 #### [facility] [address] [place], [address] GAP 6 Normal 5-15 [facility] Comment on above: Performed By: #### L 400.0001 #### [facility] [address] [place], [address] GFR/1.73 sq M.predicted among non-blacks MDRD (S/P/Bld) [Vol rate/Area] 65 mL/min/{1.73_m2} Normal >60 [facility] Comment on above: Result Comment: Non- GFR Calc Performed By: #### L 400.0001 #### [facility] [address] [place] [place], [address] Globulin (S) [Mass/Vol] 3.5 g/dL Normal 2.2-4.2 [facility] Comment on above: Performed By: #### L 400.0001 #### [facility] [address] [place], [address] Glucose [Mass/Vol] 319 mg/dL High 74-106 [facility] Comment on above: Result Comment: Gluc ose result greater than or equal to 200 mg/dL suggests DIABETES MELLITUS per A.D.A. criteria. Performed By: #### L 400.0001 #### [facility] [address] [place], [address] Potassium [Moles/Vol] 4.3 mmol/L Normal 3.5-5.[address] [facility] Comment on above: Performed By: #### L 400.0001 #### [facility] [address] [place], [address] Sodium [Moles/Vol] 136 mmol/L Normal 136-145 [facility] Comment on above: Performed By: #### L 400.0001 #### [facility] [address] [place], [address] T PROT 6.8 g/dL Normal 6.4-8.2 [facility] Comment on above: Performed By: #### L 400.0001 #### [facility] [address] [place], [address] Urea nitrogen [Mass/Vol] 19 mg/dL High 7-18 [facility] Comment on above: Performed By: #### L 400.0001 #### [facility] [address] [place], [address] Emergency Department Summary on 09-16-2024 Emergency Department Summary [facility] Medical Records Department [address] [place] [address] Emergency Department Summary 09/16/24 MR#: [id number] Acct: [id number] Name: TRICE ZAMBRANO Rep #: [id number] : 1980 44 From: David Hanna DO PCP: Dr. Joaquin Huitron MD Status:DIS IN Location: [address] History of Present Illness Chief Complaint: [...] then referred her to the emergency department. [facility] Medical History Physical exam, pre-employment History [...] Vital Sig (more content not included)... Normal [facility]&P Exam - Hospitalist [facility] Medical Records Department [address] [place] [address] H P Exam - Hospitalist 09/16/24 1625 MR#: [id number] Acct: [id number] Name: TRICE ZAMBRANO Rep #: [id number] : 1980 44 From: Ken Sosa MD PCP: Dr. 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 [facility] Medical History Physical exam, pre-employment History [...] % (Auto) 68.9, Lymph % (Auto) 21.7, [place] % (Auto) 7.7, Eos % (Auto) 0.8, Baso % (Auto) 0.5, Absolute Ne (more content not included)... Normal [facility] Lactic Acidon 09-16-2024 Lactate [Moles/Vol] 1.0 mmol/L Normal 0.4-1.9 [facility] Comment on above: Order Comment: CLEAN CATCH Performed By: #### L 400.0001 #### [facility] [address] [place], [address] Partial Thromboplast Timeon 09-16-2024 aPTT Coag (Bld) [Time] 24.2 s Normal 24.1-36.2 [facility] Comment on above: Performed By: #### L 400.0001 #### [facility] [address] [place], [address] Pelvis WITH IV Contraston Pelvis WITH IV Contrast [facility] Imaging Services [address] [place] [address] Pelvis WITH IV Contrast MR#: [id number] Acct: [id number] Name: TRICE ZAMBRANO Rep #: [id number] : 1980 F 44 From: John Acosta PCP: Dr. Joaquin Huitron MD Status: [facility] ER Study: Pelvis WITH IV Contrast Date of Exam: 09/16/24 Exam# [id number] Ordering Dr: Jose Flores EXPERIMENTAL MACHINIST-C [id number] EXAM: CT PELVIS WITH INTRAVENOUS CONTRAST CLINICAL [...] Signed: John Hart MD at 15:07 EST Reading Location ID and State: [facility] / [place] , Service support , CC: FARA Flores; Dr. Joaquin Huitron MD Meat Carrier: Signed Normal [facility] Prothrombin Time w/INRon INR Coag (PPP) [Relative time] 0.9 {INR} Normal [facility] Comment on above: Performed By: #### L 400.0001 #### [facility] [place], [address] PT Coag (PPP) [Time] 12.5 s Normal 11.7-14.9 [facility] Comment on above: Performed By: #### L 400.0001 #### [facility] [address] [place], [address] Urinalysis, Completeon 09-16 BACTERIA 1+ /hpf Normal None Seen [facility] Comment on above: Order Comment: COLLE CTOR TO SPECIFY Performed By: #### L 501.080 #### [facility] [address] [place], [address] EPI,SQUAMOUS 0-5 SEEN Normal 5-10 [facility] Comment on above: Order Comment: COLLE CTOR TO SPECIFY Performed By: #### L 501.080 #### [facility] [address] [place], [address] RBC 0-5 SEEN Normal 0-5 [facility] Comment on above: Order Comment: COLLE CTOR TO SPECIFY Performed By: #### L 501.080 #### [facility] [address] [place], [address] WBC 10-25 SEEN Normal 0-5 [facility] Comment on above: Order Comment: TOD CTOR TO SPECIFY Performed By: #### L 501.080 #### [facility] [address] [place], [address] Mucus Ql (Urine sed) 0 SEEN Normal [facility] Comment on above: Order Comment: COLLE CTOR TO SPECIFY Performed By: #### L 501.080 #### [facility] [address] [place], [address] CNPNon 07-17-2024 CNPN Telephone ([facility]) TRICE ZAMBRANO ([id number]) 1980 F Date Time Provider Department 07/17/24 INDU PHAM [facility] During your visit today, we recorded the following information about you: Indu Pham [facility] 07/17/2024 10:50 AM Signed Primary Care Pharmacy Rescheduling Outreach Patient cancelled new pharm visit on 06/14 and has not rescheduled yet. Call center, please contact patient and reschedule in person, telephone, and virtual visit for Diabetes management within ~4 week(s). (Visit length: 60 minutes) Thank you, Indu Pham, PharmD, BCACP Primary Care Clinical Business Solution Analyst 07/17/2024 10:49 AM Dawson Mckeon 07/17/2024 11:18 AM Signed Telephoned the patient regarding cancelled appt. Left a message. Alisia Mckeon [facility] 07/18/2024 2:06 PM Addendum Telephoned the patient to schedule a new Primary Care pharmacy appt. Left a message.Second attempt. Made two attempts to contact the patient. Patient was sent Konnekt[employer] message. If the patient returns a call, an appt will be scheduled. Alisia Mckeon [facility] 07/25/2024 2:43 PM Signed Final attempt. made. Pt. was also sent Konnektid message.If pt. returns our call an appt. will be made. Pt. discharge process is complete at this time. Will route to [facility] as an FYI. Allergies As of Date: [...] twice daily, 250.02. Insulin yes. - Insulin [place], Disposable, (BD ULTRA-FINE VINOD PEN NEEDLE) 32 [...] - VINOD PEN NEEDLE 32 gauge x /32 ndle use 1 NEEDLE FOR EACH DOSE, [...] Encounter Status:Closed by DAWSON MCKEON on 07/17/24 [facility] 07-13-2024 [facility] Telephone ([facility]) TRICE ZAMBRANO ([id number]) 1980 F Date Time Provider Department 07/13/24 [facility] During your visit today, we recorded the [...] Signed Patient active MyChart. Patient notified via Konnektid message. Jonathan Kim MA Allergies As of [...] twice daily, 250.02. Insulin yes. - Insulin [place], Disposable, (BD ULTRA-FINE VINOD PEN NEEDLE) 32 [...] sheba 1 Device every 2 weeks. - HananeINIRole (REQUIP) 0.5 mg tablet Take 3 tablets by mouth daily at bedtime. - atorvastatin (LIPITOR) 10 mg tablet Take 1 tablet by mouth daily at bedtime. For cholesterol. - lisinopril (ZESTRIL) 5 mg tablet Take 1 tablet by mouth once daily. - VINOD PEN NEEDLE 32 gauge x 32 ndle use 1 NEEDLE FOR EACH DOSE, [...] Status:Closed by JONATHAN KIM on 07/16/24 Normal [facility] Bacteria Ur Culton 4 Bacteria identified Cx Nom (U) ORGANISM ID: 1 10,000 -<50,000 CFU/ml Normal urogenital chris Normal [facility] Comment on above: Performed By: #### 6 30-4 ####[facility] LABCLIA [id number] [address] [place] CNOVon 07-11-2024 CNOV Office Visit ([facility] ) TRICE ZAMBRANO ([id number]) 1980 F Date Time Provider Department 07/11/24 2:00 PM [facility] During your visit today, we recorded the following information about you: Temperature Pulse Respiration Blood pressure 98 degrees 88/minute minute 128/82 Weight 112 kg Letitia Odell APRN.[employer]ER TESTER 07/11/2024 3:11 PM Signed Subjective Trice Zambrano [...] of buttock No date: Colostomy in place ([facility]) Comment: Reversed No date: Diabetes mellitus type II ([facility]) No date: Gestational diabetes No date: Hyperlipidemia No date: Kidney stones Comment: Dr. Nance 04/2022: Liver lesion No date: Neuropathy No date: Obesity (BMI 30-39.9) No date: RLS (restless legs syndrome) 04/2021: Septicemia ([facility]) Comment: buttock abscess No date: Ventral hernia [...] glucose twice daily, 250.02. Insulin yes. Insulin [place], Disposable, (BD ULTRA-FINE VINOD PEN NEEDLE) 32 gauge x 5/32 Use one needle for each dose. 5/day. blood sugar diagnostic ([employer] VERIO TEST STRIPS) test strip Test blood [...] daily. VINOD PEN NEEDLE 32 gauge x 532 ndle use 1 NEEDLE FOR EACH DOSE, [...] membrane normal. Nose: Nose normal. Mouth/Throat: Lips: [place]. Mouth: Mucous membranes are moist. Pharynx: Posterior oropharyngeal erythema present. Comments: Mild erythema posterior pharynx Eyes: Extraocular Movements: (more content not included)... Normal [facility] COVID AND INFLUENZA A/B AND RSV PCR, ROUTINEon 07-11-2024 SARS-CoV-2 (COVID-19) RNA NAKUL+probe Ql (Unsp spec) SARS-COV-2 (AGENT OF COVID-19) RNA: Not detected INFLUENZA A RNA: Not detected INFLUENZA B RNA: Not detected RESPIRATORY SYNCYTIAL VIRUS (RSV) RNA: Not detected Normal [facility] Comment on above: Performed By: #### C VFLRS ####[facility] LABCLIA [id number] [place] [address] [place] STREP A MOLECULAR (POC)on Procedural Control Valid [facility] Strep A (POCT) Negative Negative [facility] UA DIP, URINE (POC)on 2023 BILIRUBIN UA (POCT) Negative Negative [facility] CL[facility]ITY UA (POCT) Clear [facility] COLOR UA (POCT) Yellow [facility] GLUCOSE UA (POCT) 500 mg/dL Abnormal Negative [facility] Hemoglobin Ql (U) Negative Negative [facility] Interpretation and review of laboratory results Abnormal [facility] KETONE UA (POCT) 15 mg/dL Abnormal Negative [facility] LEUKOCYTES UA (POCT) Negative Negative [facility] NITRITE UA (POCT) Negative Negative [facility] PH UA (POCT) 7.0 4.5 - 8.0 [facility] Protein Ql (U) Trace Abnormal Negative mg/dL [facility] SPECIFIC GRAVITY UA (POCT) 1.015 1.005 - 1.030 [facility] UROBILINOGEN UA (POCT) 0.2 Anupama l E.U./dL [facility] Location:[address], [place], [place], [id number] [place] [address] POINT OF CARE [facility] .Auto Diffon 05-28-2024 Basophil, Absolute 0.0 10 3/mcL Normal 0.0-0.2 [facility] ([place]) Comment on above: Performed By: #### M DW, CBC, ANEU, GFR, ADIFF, BMP ####[address] [place], [place] [address] Basophils/100 WBC (Bld) 0.7 % Normal 0.0-2.5 A On license of [facility] ([place]) Comment on above: Performed By: #### M DW, CBC, ANEU, GFR, ADIFF, BMP ####[address] [place], [place] [address] Eosinophil, Absolute 0.1 10 3/mcL Normal 0.0-0.4 [facility] ([place]) Comment on above: Performed By: #### M DW, CBC, ANEU, GFR, ADIFF, BMP ####[address] [place], [place] [address] Eosinophils/100 WBC (Bld) 1.0 % Normal 0.0-7.0 [facility] ([place]) Comment on above: Performed By: #### M DW, CBC, ANEU, GFR, ADIFF, BMP ####[address] [place], [place] [address] Lymphocyte, Absolute 1.7 10 3/mcL Normal 0.8-3.9 [facility] ([place]) Comment on above: Performed By: #### M DW, CBC, ANEU, GFR, ADIFF, BMP ####[address] [place], [place] [address] Lymphocytes/100 WBC (Bld) 23.4 % Normal 10.0-50.0 [facility] ([place]) Comment on above: Performed By: #### M DW, CBC, ANEU, GFR, ADIFF, BMP ####[address] [place], [place] [address] Monocyte, Absolute 0.4 10 3/mcL Normal 0.2-1.0 [facility] ([place]) Comment on above: Performed By: #### M DW, CBC, ANEU, GFR, ADIFF, BMP ####[address] [place], [place] [address] Monocytes/100 WBC (Bld) 5.0 % Normal 1.7-13.0 A On license of [facility] ([place]) Comment on above: Performed By: #### M DW, CBC, ANEU, GFR, ADIFF, BMP ####[address] [place], [place] [address] Neutrophils/100 WBC (Bld) 69.9 % Normal 37.0-80.0 [facility] ([place]) Comment on above: Performed By: #### M DW, CBC, ANEU, GFR, ADIFF, BMP ####[address] [place], [place] [address] .GFRon 05-28-2024 GFR 84 ml/min/1.73sqm Normal [facility] ([place]) Comment on above: Result Comment: GFR Population [...] DW, CBC, ANEU, GFR, ADIFF, BMP ####[address] [place], [place] [address] GFR Non- 69 ml/min/1.73sqm Normal [facility] ([place]) Comment on above: Result Comment: GFR Population [...] CBC, ANEU, GFR, ADIFF, BMP ####[address] [place], [place] [address] .MDWon 05-28-2024 Monocyte Distribution Width 18.37 Normal 0.00-20.00 [facility] ([place]) Comment on above: Result Comment: For ED adult patients suspected of sepsis, MDW<=20.0 does not rule out sepsis or risk of sepsis Performed By: #### M DW, CBC, ANEU, GFR, ADIFF, BMP ####[address] [place], [place] [address] .NEUABSon 05-28-2024 Neutrophil, Absolute 5.2 10 3/mcL Normal 2.9-6.2 [facility] ([place]) Comment on above: Performed By: #### M DW, CBC, ANEU, GFR, ADIFF, BMP ####[address] [place], [place] [address] BMPon 05-28-2024 BUN/Creatinine Ratio 19 ratio Normal 7-27 [facility]) Comment on above: Performed By: #### M DW, CBC, ANEU, GFR, ADIFF, BMP ####[address] [place], [place] [address] Calcium [Mass/Vol] 9.3 mg/dL Normal 8.4-10.2 [facility] ([place]) Comment on above: Performed By: #### M DW, CBC, ANEU, GFR, ADIFF, BMP ####[place] [address] [place], [place] [address] Chloride [Moles/Vol] 103 mmol/L Normal 98-107 [facility] ([place]) Comment on above: Performed By: #### M DW, CBC, ANEU, GFR, ADIFF, BMP ####[address] [place], [place] [address] CO2 [Moles/Vol] 31 mmol/L High 22-29 [facility] ([place]) Comment on above: Performed By: #### M DW, CBC, ANEU, GFR, ADIFF, BMP ####[address] [place], [place] [address] Creatinine [Mass/Vol] 0.89 mg/dL Normal 0.55-1.02 [facility] ([place]) Comment on above: Performed By: #### M DW, CBC, ANEU, GFR, ADIFF, BMP ####[address] [place], [place] [address] Electrolyte Balance 8.0 mEq/L Normal 4.0-15.0 [facility] ([place]) Comment on above: Performed By: #### M DW, CBC, ANEU, GFR, ADIFF, BMP ####[address] [place], [place] [address] Glucose [Mass/Vol] 178 mg/dL High 70-105 [facility] ([place]) Comment on above: Performed By: #### M DW, CBC, ANEU, GFR, ADIFF, BMP ####[address] [place], [place] [address] Potassium [Moles/Vol] 4.0 mmol/L Normal 3.5-5.1 [facility] ([place]) Comment on above: Performed By: #### M DW, CBC, ANEU, GFR, ADIFF, BMP ####[address] [place], [place] [address] Sodium [Moles/Vol] 142 mmol/L Normal 136-145 [facility] ([place]) Comment on above: Performed By: #### M DW, CBC, ANEU, GFR, ADIFF, BMP ####[address] [place], [place] [address] Urea nitrogen [Mass/Vol] 17 mg/dL Normal 7-18 [facility] ([place]) Comment on above: Performed By: #### M DW, CBC, ANEU, GFR, ADIFF, BMP ####[address] [place], [place] [address] CBCon 05-28-2024 Erythrocyte distribution width (RBC) [Ratio] 13.9 % Normal 11.5-14.5 [facility] ([place]) Comment on above: Performed By: #### M DW, CBC, ANEU, GFR, ADIFF, BMP ####[address] [place], [place] [address] Hematocrit (Bld) [Volume fraction] 39.6 % Normal 37.0-47.0 [facility] ([place]) Comment on above: Performed By: #### M DW, CBC, ANEU, GFR, ADIFF, BMP ####[address] [place], [place] [address] Hgb 13.5 G/dL Normal 12.0-16.0 [facility] ([place]) Comment on above: Performed By: #### M DW, CBC, ANEU, GFR, ADIFF, BMP ####[address] [place], [place] [address] MCH (RBC) [Entitic mass] 30.8 pg Normal 27.0-31.2 [facility] ([place]) Comment on above: Performed By: #### M DW, CBC, ANEU, GFR, ADIFF, BMP ####[address] [place], [place] [address] MCHC 34.2 G/dL Normal 33.0-37.0 [facility] ([place]) Comment on above: Performed By: #### M DW, CBC, ANEU, GFR, ADIFF, BMP ####[address] [place], [place] [address] MCV (RBC) [Entitic vol] 90.1 fL Normal 80.0-94.0 A On license of [facility] ([place]) Comment on above: Performed By: #### M DW, CBC, ANEU, GFR, ADIFF, BMP ####[address] [place], [place] [address] Platelet 220 10 3/mcL Normal 130-400 [facility] ([place]) Comment on above: Performed By: #### M DW, CBC, ANEU, GFR, ADIFF, BMP ####[address] [place], [place] [address] Platelet mean volume (Bld) [Entitic vol] 8.9 fL Normal 7.4-10.4 [facility] ([place]) Comment on above: Performed By: #### M DW, CBC, ANEU, GFR, ADIFF, BMP ####[address] [place], [place] [address] RBC 4.40 10 6/mcL Normal 4.20-5.40 [facility] ([place]) Comment on above: Performed By: #### M DW, CBC, ANEU, GFR, ADIFF, BMP ####[address] [place], [place] [address] WBC 7.4 10 3/mcL Normal 4.6-10.8 [facility] ([place]) Comment on above: Performed By: #### M DW, CBC, ANEU, GFR, ADIFF, BMP ####[address] [place], [place] [address] CT ABDOMEN/PELVIS W/O CONTRA STon 05-28-2024 CT ABDOMEN/PELVIS W/O CONTRAST ORIGINAL EXAMINATION: [...] 05/28/2024 5:06:46 PM Ordering Provider: JOHN Mitchell [facility] ([place]) LABORATORYOrdered By: Monty Parsons on 05-28-2024 Appearance [...] HCG ( test) Ql (U) Negative Normal [facility] ([place]) Comment on above: Performed By: #### P REGU, UA #### [address] [address] test (u) int Not detected Invalid Interpretation Code [facility] ([place]) Comment on above: Performed By: #### P REGU, UA #### [place] [place], [place] [address] UAon 05-28-2024 Color (U) Yellow Normal [facility] ([place]) Comment on above: Performed By: #### P REGU, UA #### [facility] [address] [place], [place] [address] Glucose (U) [Mass/Vol] 500 mg/dL Abnormal Negative [facility] ([place]) Comment on above: Performed By: #### P REGU, UA #### [place] [place], [place] [address] Ketones Ql (U) Negative Normal Negative [facility] ([place]) Comment on above: Performed By: #### P REGU, UA #### [address] [address] UA Appear Clear Normal Clear [facility] ([place]) Comment on above: Performed By: #### P REGU, UA #### [address] [address] UA Blood Small Abnormal Negative [facility] ([place]) Comment on above: Performed By: #### P REGU, UA #### [place] [address] UA Leuk Est Negative Normal Negative [facility] ([place]) Comment on above: Performed By: #### P REGU, UA #### [place] [address] UA Nitrite Negative Normal Negative [facility] ([place]) Comment on above: Performed By: #### P REGU, UA #### [place] [address] UA pH 5.5 Normal 5.0 - 8.0 [facility] ([place]) Comment on above: Performed By: #### P REGU, UA #### [place] [address] UA Protein Trace Normal Negative [facility] ([place]) Comment on above: Performed By: #### P REGU, UA #### [address] [address] UA Spec Grav >=1.030 Abnormal 1.015-1.025 [facility] ([place]) Comment on above: Performed By: #### P REGU, UA #### [place] [address] UA Specimen Type Clean Catch Normal [facility] ([place]) Comment on above: Performed By: #### P REGU, UA #### [place] [id number] UA Urobilinogen 0.2 E.U./dL Normal 0.2-1.0 [facility] ([place]) Comment on above: Performed By: #### P REGU, UA #### [place] [address] Urobilinogen (U) [Mass/Vol] Negative Normal Negative [facility] ([place]) Comment on above: Performed By: #### P HENRIKU, UA #### [address] [place], [place] [address] CBC W Ordered Manual Differe ntial panel (Bld)on 05-07-2024 Basophils (Bld) [#/Vol] 0.04 10*3/uL Normal <0.11 [facility] Comment on above: Order Comment: Speci men Type: BLOOD SPECIMENOrdering Facility: [facility] Address: [address] [place] [address] Performed By: #### 5 7782-5, STFREV ####[facility] LABCLIA [id number] [place] [address] [place] Basophils/100 WBC (Bld) 0.5 % Normal C [facility] Comment on above: Order Comment: Speci men Type: BLOOD SPECIMENOrdering Facility: [facility] Address: [address] [place] [address] Performed By: #### 5 7782-5, STFREV ####[facility] LABCLIA [id number] [place] [address] [place] Differential cell count method Nom (Bld) Auto Normal [facility] Comment on above: Order Comment: Speci men Type: BLOOD SPECIMENOrdering Facility: [facility] Address: [address] [place] [address] Performed By: #### 5 7782-5, STFREV ####[facility] LABCLIA [id number] [place] [address] [place] Eosinophils (Bld) [#/Vol] 0.07 10*3/uL Normal <0.46 [facility] Comment on above: Order Comment: Speci men Type: BLOOD SPECIMENOrdering Facility: [facility] Address: [address] [place] [address] Performed By: #### 5 7782-5, STFREV ####[facility] LABCLIA [id number] [place] [address] [place] Eosinophils/100 WBC (Bld) 0.8 % Normal [facility] Comment on above: Order Comment: Speci men Type: BLOOD SPECIMENOrdering Facility: [facility] Address: [address] [place] [address] Performed By: #### 5 7782-5, STFREV ####[facility] LABCLIA [id number] [place] [address] [place] Erythrocyte distribution width (RBC) [Ratio] 13.0 % Normal 11.5-15.0 [facility] Comment on above: Order Comment: Speci men Type: BLOOD SPECIMENOrdering Facility: [facility] Address: [address] [place] [address] Performed By: #### 5 7782-5, STFREV ####[facility] LABCLIA [id number] [place] [address] [place] Hematocrit (Bld) [Volume fraction] 41.0 % Normal 36.0-46.0 [facility] Comment on above: Order Comment: Speci men Type: BLOOD SPECIMENOrdering Facility: [facility] Address: [address] [place] [address] Performed By: #### 5 7782-5, STFREV ####[facility] LABCLIA [id number] [place] [address] [place] Hemoglobin (Bld) [Mass/Vol] 13.3 g/dL Normal 11.5-15.5 [facility] Comment on above: Order Comment: Speci men Type: BLOOD SPECIMENOrdering Facility: [facility] Address: [address] [place] [address] Performed By: #### 5 7782-5, STFREV ####[facility] LABCLIA [id number] [address] [id number] [address] [place] Immature granulocytes (Bld) [#/Vol] 0.04 10*3/uL Normal <0.10 [facility] Comment on above: Order Comment: Speci men Type: BLOOD SPECIMENOrdering Facility: [facility] Address: [address] [place] [address] Performed By: #### 5 7782-5, STFREV ####[facility] LABCLIA [id number] [place] [address] [place] Immature granulocytes/100 WBC (Bld) 0.5 % Normal [facility] Comment on above: Order Comment: Speci men Type: BLOOD SPECIMENOrdering Facility: [facility] Address: [address] [place] [address] Performed By: #### 5 7782-5, STFREV ####[facility] LABCLIA [id number] [place] [address] [place] Lymphocytes (Bld) [#/Vol] 1.66 10*3/uL Normal 1.00-4.00 [facility] Comment on above: Order Comment: Speci men Type: BLOOD SPECIMENOrdering Facility: [facility] Address: [address] [place] [address] Performed By: #### 5 7782-5, STFREV ####[facility] LABCLIA [id number] [place] [address] [place] Lymphocytes/100 WBC (Bld) 18.9 % Normal [facility] Comment on above: Order Comment: Speci men Type: BLOOD SPECIMENOrdering Facility: [facility] Address: [address] [place] [address] Performed By: #### 5 7782-5, STFREV ####[facility] LABCLIA [id number] [place] [address] [place] MCH (RBC) [Entitic mass] 30.0 pg Normal 26.0-34.0 [facility] Comment on above: Order Comment: Speci men Type: BLOOD SPECIMENOrdering Facility: [facility] Address: [address] [place] [address] Performed By: #### 5 7782-5, STFREV ####[facility] LABCLIA [id number] [place] [address] [place] MCHC (RBC) [Mass/Vol] 32.4 g/dL Normal 30.5-36.0 [facility] Comment on above: Order Comment: Speci men Type: BLOOD SPECIMENOrdering Facility: [facility] Address: [address] [place] [address] Performed By: #### 5 7782-5, STFREV ####[facility] LABIA [id number] [place] [address] [place] MCV (RBC) [Entitic vol] 92.3 fL Normal 80.0-100.0 C [facility] Comment on above: Order Comment: Speci men Type: BLOOD SPECIMENOrdering Facility: [facility] Address: [address] [place] [address] Performed By: #### 5 7782-5, STFREV ####[facility] LABIA [id number] [place] [address] [place] Monocytes (Bld) [#/Vol] 0.43 10*3/uL Normal <0.87 [facility] Comment on above: Order Comment: Speci men Type: BLOOD SPECIMENOrdering Facility: [facility] Address: [address] [place] [address] Performed By: #### 5 7782-5, STFREV ####[facility] LABIA [id number] [place] [address] [place] Monocytes/100 WBC (Bld) 4.9 % Normal C [facility] Comment on above: Order Comment: Speci men Type: BLOOD SPECIMENOrdering Facility: [facility] Address: [address] [place] [address] Performed By: #### 5 7782-5, STFREV ####[facility] LABCLIA [id number] [place] [address] [place] Neutrophils (Bld) [#/Vol] 6.54 10*3/uL Normal 1.45-7.50 [facility] Comment on above: Order Comment: Speci men Type: BLOOD SPECIMENOrdering Facility: [facility] Address: [address] [place] [address] Performed By: #### 5 7782-5, STFREV ####[facility] LABCLIA [id number] [place] [address] [place] Neutrophils/100 WBC (Bld) 74.4 % Normal [facility] Comment on above: Order Comment: Speci men Type: BLOOD SPECIMENOrdering Facility: [facility] Address: [address] [place] [address] Performed By: #### 5 7782-5, STFREV ####[facility] LABCLIA [id number] [place] [address] [place] Nucleated RBC (Bld) [#/Vol] 10*3/uL Normal <0.01 [facility] Comment on above: Order Comment: Speci men Type: BLOOD SPECIMENOrdering Facility: [facility] Address: [address] [place] [address] Performed By: #### 5 7782-5, STFREV ####[facility] LABCLIA [id number] [place] [address] [place] Nucleated RBC/100 WBC (Bld) [Ratio] 0.0 /100 WBC Normal [facility] Comment on above: Order Comment: Speci men Type: BLOOD SPECIMENOrdering Facility: [facility] Address: [address] [place] [address] Performed By: #### 5 7782-5, STFREV ####[facility] LABCLIA [id number] [place] [id number] [place] Platelet mean volume (Bld) [Entitic vol] 11.9 fL Normal 9.0-12.7 [facility] Comment on above: Order Comment: Speci men Type: BLOOD SPECIMENOrdering Facility: [facility] Address: [address] [place] [address] Performed By: #### 5 7782-5, STFREV ####[facility] LABCLIA [id number] [place] [address] [place] Platelets (Bld) [#/Vol] 212 10*3/uL Normal 150-400 [facility] Comment on above: Order Comment: Speci men Type: BLOOD SPECIMENOrdering Facility: [facility] Address: [address] [place] [address] Performed By: #### 5 7782-5, STFREV ####[facility] LABCLIA [id number] [place] [address] [place] RBC (Bld) [#/Vol] 4.44 10*6/uL Normal 3.90-5.20 [facility] Comment on above: Order Comment: Speci men Type: BLOOD SPECIMENOrdering Facility: [facility] Address: [address] [place] [address] Performed By: #### 5 7782-5, STFREV ####[facility] LABIA [id number] [place] [address] [place] WBC (Bld) [#/Vol] 8.78 10*3/uL Normal 3.70-11.00 [facility] Comment on above: Order Comment: Speci men Type: BLOOD SPECIMENOrdering Facility: [facility] Address: [address] [place] [address] Performed By: #### 5 7782-5, STFREV ####[facility] LABCLIA [id number] [place] [address] [place] PATHOLOGIST INTERPRETATION C BC/DIFFon 05-07-2024 Manager Of Financial Planning review [place] (Unsp spec) [Interp] No review performed. Normal [facility] Comment on above: Order Comment: Speci men Type: BLOOD SPECIMENOrdering Facility: [facility] Address: [address] [place] [address] Performed By: #### 5 7782-5, STFRJAYANT ####[facility] LABCLIA [id number] [place] [address] [place] STAFF REVIEW, CBCDIF Normal [facility] Comment on above: Order Comment: Speci men Type: BLOOD SPECIMENOrdering Facility: [facility] Address: [address] [place] [address] Result Comment: The Pathologist Interpretation on this sample was cancelled because the hematology analyzer did not flag any parameters as requiring manual review. If there is a specific clinical concern for which you would like a pathologist to review the blood smear, please call Lab Client Services within 28 days. Performed By: #### 5 7782-5, STFRJAYANT ####[facility] LABCLIA [id number] [place] ALBUMIN/CREATININE RATIO, UR INEon 04-06-2024 Albumin DL <= 20 mg/L (U) [Mass/Vol] 137.0 mg/L [facility] Albumin/Creatinine (U) [Mass ratio] 133 mg/g High NINF - 30 mg/g [facility] Comment on above: Adult Male and [...] [Mass/Vol] 102.8 mg/dL 20.0 - 300.0 mg/dL [facility] Interpretation and review of laboratory results Abnormal [facility] CBC W Auto Differential pane l (Bld)on 04-06-2024 Basophils (Bld) [#/Vol] 0.07 10*3/uL [facility] Basophils/100 WBC (Bld) 0.5 % C [facility] Differential cell count method Nom (Bld) Auto [facility] Eosinophils (Bld) [#/Vol] 0.08 10*3/uL [facility] Eosinophils/100 WBC (Bld) 0.6 % [facility] Erythrocyte distribution width (RBC) [Ratio] 13.2 % 11.5 - 15.0 % [facility] Hematocrit (Bld) [Volume fraction] 42.3 % 36.0 - 46.0 % [facility] Hemoglobin (Bld) [Mass/Vol] 13.5 g/dL 11.5 - 15.5 g/dL [facility] Immature granulocytes (Bld) [#/Vol] 0.06 10*3/uL [facility] Immature granulocytes/100 WBC (Bld) 0.5 % [facility] Interpretation and review of laboratory results Abnormal [facility] Lymphocytes (Bld) [#/Vol] 3.22 10*3/uL [facility] Lymphocytes/100 WBC (Bld) 25.0 % [facility] MCH (RBC) [Entitic mass] 29.3 pg 26.0 - 34.0 pg [facility] MCHC (RBC) [Mass/Vol] 31.9 g/dL 30.5 - 36.0 g/dL [facility] MCV (RBC) [Entitic vol] 92.0 fL 80.0 - 100.0 fL [facility] Monocytes (Bld) [#/Vol] 0.86 10*3/uL [facility] Monocytes/100 WBC (Bld) 6.7 % C [facility] Neutrophils (Bld) [#/Vol] 8.57 10*3/uL High [facility] Neutrophils/100 WBC (Bld) 66.7 % [facility] Nucleated RBC (Bld) [#/Vol] [facility] Nucleated RBC/100 WBC (Bld) [Ratio] 0.0 % /100 WBC [facility] Platelet mean volume (Bld) [Entitic vol] 11.6 fL 9.0 - 12.7 fL [facility] Platelets (Bld) [#/Vol] 251 10*3/uL [facility] RBC (Bld) [#/Vol] 4.60 10*6/uL 3.90 - 5.2 0 m/uL [facility] WBC (Bld) [#/Vol] 12.86 10*3/uL [facility] Comprehensive metabolic 2000 panelon 04-06-2024 Albumin [Mass/Vol] 4.0 g/dL 3.9 - 4.9 g/dL [facility] ALP [Catalytic activity/Vol] 101 U/L 34 - 123 U/L [facility] ALT [Catalytic activity/Vol] 16 U/L 7 - 38 U/L [facility] Anion gap [Moles/Vol] 11 mmol/L 9 - 18 mmol/L [facility] AST [Catalytic activity/Vol] 15 U/L 13 - 35 U/L [facility] Bilirubin [Mass/Vol] 0.2 mg/dL 0.2 - 1 .3 mg/dL [facility] Calcium [Mass/Vol] 9.7 mg/dL 8.5 - 10. 2 mg/dL [facility] Chloride [Moles/Vol] 106 mmol/L High 97 - 10 5 mmol/L [facility] CO2 [Moles/Vol] 24 mmol/L 22 - 30 mmol/L [facility] Creatinine [Mass/Vol] 1.04 mg/dL High 0.58 - 0.96 mg/dL [facility] GFR/1.73 sq M.predicted among non-blacks MDRD (S/P/Bld) [Vol rate/Area] 69 mL/min/{1.73_m2} - PINF [facility] Comment on above: Estimated Glomerular Filtration [...] [Mass/Vol] 94 mg/dL 74 - 99 mg/dL [facility] Comment on above: The [place] Diabete s Association (ADA) provides guidance for [...] Standards of Medical Care in Diabetes 2016, [place] Diabetes Association. Diabetes Care. 2016.39(Suppl 1). Potassium [Moles/Vol] 4.2 mmol/L 3.7 - 5.1 mmol/L [facility] Protein [Mass/Vol] 7.0 g/dL 6.3 - 8.0 g/dL [facility] Sodium [Moles/Vol] 141 mmol/L 136 - 144 mmol/L [facility] Urea nitrogen [Mass/Vol] 30 mg/dL High 7 - 21 mg/dL [facility] HbA1c (Bld)on 04-06-2024 Average glucose Estimated from glycated hemoglobin (Bld) [Mass/Vol] 192 mg/dL [facility] Comment on above: eAG: (Estimated aver age glucose) is a calculated value from HgbA1c and is tour sales representative of the average blood glucose level in the last 2-3 month period. HbA1c (Bld) [Mass fraction] 8.3 % High 4.3 - 5.6 % [facility] Comment on above: [place] Diabetes As sociation guidelines indicate that patients with HgbA1c in the range 5.7-6.4% are at increased risk for development of diabetes, and intervention by lifestyle modification may be beneficial. HgbA1c greater or equal to 6.5% is considered diagnostic of diabetes. Interpretation and review of laboratory results Abnormal [facility] LIPID PANEL, NONFASTINGon Cholesterol [Mass/Vol] 170 mg/dL NINF - 200 mg/dL [facility] Comment on above: <200 mg/dL, Desirabl e 200-239 mg/dL, Borderline high >239 mg/dL, High HDL Cholesterol, Nonfasting 52 mg/dL 39 - PINF mg/dL [facility] Comment on above: 40-59 mg/dL, Accepta ble >59 mg/dL, High: Negative risk factor for coronary heart disease <40 mg/dL, Low: Positive risk factor for coronary heart disease LDL Cholesterol, Nonfasting 87 mg/dL NINF - 100 mg/dL [facility] Comment on above: <100 mg/dL, Optimal 100-129 mg/dL, Near optimal/above optimal 130-159 mg/dL, Borderline high 160-189 mg/dL, High >189 mg/dL, Very high Secondary prevention optimal LDL Cholesterol levels are recommended to be < 70 mg/dL LDL/HDL Ratio, Nonfasting 1.67 mg/dL NINF - 2.54 mg/dL [facility] Comment on above: Reference: 1. National Cholesterol Education Program ATP III Guideline At-A-Glance Quick Desk Reference: National Heart, Lung, and Blood [place]. National Institutes of Health. 2001: NIH Publication No. 01-3305. 2. An International Atherosclerosis Society position paper: global recommendations for the management of dyslipidemia: executive summary, Atherosclerosis. 2014: 232(2):410-413. Non HDL Cholesterol, Nonfasting 118 mg/dL NINF - 130 mg/dL [facility] Comment on above: <130 mg/dL, Optimal 130-159 mg/dL, Near optimal/above optimal 160-189 mg/dL, Borderline high 190-219 mg/dL, High >219 mg/dL, Very high Secondary prevention optimal non HDL Cholesterol levels are recommended to be <100 mg/dL Total Chol/HDL Ratio, Nonfasting 3.27 mg/dL NINF - 5.10 mg/dL [facility] Triglycerides, Nonfasting 156 mg/dL High NINF - 150 mg/dL [facility] Comment on above: <150 mg/dL, Normal 150-199 mg/dL, Borderline high 200-499 mg/dL, High >499 mg/dL, Very high VLDL Cholesterol, Nonfasting 31 mg/dL High NINF - 30 mg/dL [facility] No Panel Informationon 04-06 Interpretation and review of laboratory results Abnormal [facility] MG Breast Screeningon 2023 IMPRESSION: NEGATIVE There is no mammographic evidence of malignancy. A 1 year screening mammogram is recommended. Lilo pichardo/shukri:02/03/2024 15:13:32 State Trooper(s): Miri Shultz, [facility] letter sent: Normal over 40 [...] Health, Family Medicine, and Medical/Surgical Oncology, the [facility] has carefully reviewed the data and [...] their providers when to stop screening mammograms. Meat Carrier: Shukri Transcribe Date/Time: Feb 03 2024 2:35P Dictated by : LILO ELLIS MD This examination was interpreted and the report reviewed and electronically signed by: LILO ELLIS MD on Feb 03 2024 3:13PM EST [facility] * * *Final Report* * * DATE OF EXAM: Feb 03 2024 2:52PM [facility] [address] [place] [address] SCREENING / PROCEDURE REASON: SCREENING BILATERAL MAMMO W\CAD Z12.31, 52291 * * * * Physician Interpretation * * * * #[id number] - JESSICA SCREENING BILATERAL DIGITAL SCREENING MAMMOGRAM WITH CAD: 02/03/2024 HISTORY: Screening Bilateral Mammo W\Cad Z12.31, 10408. RESULT: TECHNIQUE: The study was acquired using full field digital technology and interpreted from soft copy. Current study was also evaluated with a Computer Aided Detection (CAD). Comparison is made to exams dated: 12/11/2021 mammogram - [facility] and 12/16/2021 mammogram - [place]. There are scattered areas of fibroglandular density. No significant masses, calcifications, or other findings are seen in either breast. [facility] RAD[facility] Provider, Michelle Sam - 02/06/2024 * * *Final Report* * * DATE OF EXAM: Feb 03 2024 2:52PM [facility] [address] [facility] SCREENING / PROCEDURE REASON: SCREENING BILATERAL MAMMO W\CAD Z12.31, 26637 * * * * Physician Interpretation * * * * #[id number] - JESSICA SCREENING BILATERAL DIGITAL SCREENING MAMMOGRAM WITH CAD: 02/03/2024 HISTORY: Screening Bilateral Mammo W\Cad Z12.31, 43713. RESULT: TECHNIQUE: The study was acquired using full field digital technology and interpreted from soft copy. Current study was also evaluated with a Computer Aided Detection (CAD). Comparison is made to exams dated: 12/11/2021 mammogram - [facility] and 12/16/2021 mammogram - [place]. There are scattered areas of fibroglandular density. No significant masses, calcifications, or other findings are seen in either breast. IMPRESSION IMPRESSION: NEGATIVE There is no mammographic evidence of malignancy. A 1 year screening mammogram is recommended. Lilo pichardo/shukri:02/03/2024 15:13:32 State Trooper(s): Miri Shultzon [facility] letter sent: Normal over 40 [...] Health, Family Medicine, and Medical/Surgical Oncology, the [facility] has carefully reviewed the data and [...] their providers when to stop screening mammograms. Meat Carrier: Shukri Transcribe Date/Time: Feb 03 2024 2:35P Dictated by : LILO ELLIS MD This examination was interpreted and the report reviewed and electronically signed by: LILO ELLIS MD on Feb 03 2024 3:13PM [facility] Breast ScreeningOrdered B y: [facility] Provider on 02-06-2024 [facility] SCREENINGon 02-03-2024 [facility] SCREENING * * *Final Report* * * DATE OF EXAM: Feb 03 2024 2:52PM RNW Andriy81 - [facility] SCREENING / PROCEDURE REASON: SCREENING BILATERAL MAMMO WCAD Z12.31, 14262 * * * * Physician Interpretation * * * * #[id number] - JESSICA SCREENING BILATERAL DIGITAL SCREENING MAMMOGRAM WITH CAD: 02/03/2024 HISTORY: Screening Bilateral Mammo WCad Z12.31, 43567. RESULT: TECHNIQUE: The study was acquired using full field digital technology and interpreted from soft copy. Current study was also evaluated with a Computer Aided Detection (CAD). Comparison is made to exams dated: 12/11/2021 mammogram - [facility] and 12/16/2021 mammogram - [place]. There are scattered areas of fibroglandular density. No significant masses, calcifications, or other findings are seen in either breast. IMPRESSION: NEGATIVE There is no mammographic evidence of malignancy. A 1 year screening mammogram is recommended. Lilo pichardo/shukri:02/03/2024 15:13:32 State Trooper(s): Miri Shultz, [facility] letter sent: Normal over 40 [...] Health, Family Medicine, and Medical/Surgical Oncology, the [facility] has carefully reviewed the data and [...] their providers when to stop screening mammograms. Meat Carrier: Shukri Transcribe Date/Time: Feb 03 2024 2:35P Dictated by : LILO ELLIS MD This examination was interpreted and the report reviewed and electronically signed by: LILO ELLIS MD on Feb 03 2024 3:13PM EST [id number] [facility] MG Breast Screeningon 2023 Radiology Study observation (narrative) Hellen Abraham ZCALCon 10-13-2023 Calculi constituents See Below Normal [facility] ([place]) Comment on above: Result Comment: The calculus has been analyzed and found to contain the following substances: CALCIUM OXALATE Performed By: #### Z CALC #### [place] [address] Final Surgical Pathology Rep [facility] 10-11-2023 Final Surgical Pathology Report . Pathology Reports Accession: Collected Date/Time: Received Date/Time: Pathologist: [id number] 10/07/2023 10:30 EST 10/10/2023 11:02 EST DAWSON HARMON MD Final Surgical Pathology Report DIAGNOSIS: URINARY CALCULUS: - CALCULI IDENTIFIED. SENT FOR ANALYSIS CLINICAL INFORMATION: LEFT URETERAL CALCULI SPECIMEN: A. LEFT URETERAL CALCULI GROSS DESCRIPTION: All parts labelled with patient name and [id number] Received in a fresh container labeled left ureteral calculi is 1 liz stone measuring 0.4 x 0.2 x 0.1 cm. Gross examination only. Peyton Langley, Grossing Business Solution Analyst/ Dr. Dawson Harmon, Pathologist Dictated by Peyton Langley MICROSCOPIC DESCRIPTION: The microscopic examination is performed, except in the case of Gross Only. Electronically Signed by Pathology Report verified by [facility] DAWSON HARMON Sign out Date: 10/11/2023 09:37 Performing Lab: [facility], [address] [place] [id number] [place] [address] Pathology Dept Disclaimer If ancillary studies were utilized, the following Laboratory Developed Test (LDT) disclaimer will apply: Under CLIA requirements, [facility] is qualified to perform high complexity testing. For all ancillary stains, positive and negative controls stain appropriately. Performance characteristics of immunohistochemical and chromogenic in-situ hybridization tests have been determined by [facility]. These tests are used for clinical purposes, They should not be regarded as investigational or for research. Normal [facility] ([place]) .Auto Diffon 09-30-2023 Basophil, Absolute 0.1 10 3/mcL Normal 0.0-0.2 [facility] ([place]) Comment on above: Performed By: #### B MP, GFR, ADIFF, CBC, MDW, ANEU #### [address] [address] Basophils/100 WBC (Bld) 0.5 % Normal 0.0-2.5 A On license of [facility] ([place]) Comment on above: Performed By: #### B MP, GFR, ADIFF, CBC, MDW, ANEU #### [address] [address] Eosinophil, Absolute 0.1 10 3/mcL Normal 0.0-0.4 [facility] ([place]) Comment on above: Performed By: #### B MP, GFR, ADIFF, CBC, MDW, ANEU #### [address] [address] Eosinophils/100 WBC (Bld) 0.8 % Normal 0.0-7.0 [facility] ([place]) Comment on above: Performed By: #### B MP, GFR, ADIFF, CBC, MDW, ANEU #### [address] [address] Lymphocyte, Absolute 1.9 10 3/mcL Normal 0.8-3.9 [facility] ([place]) Comment on above: Performed By: #### B MP, GFR, ADIFF, CBC, MDW, ANEU #### [address] [address] Lymphocytes/100 WBC (Bld) 16.3 % Normal 10.0-50.0 [facility] ([place]) Comment on above: Performed By: #### B MP, GFR, ADIFF, CBC, MDW, ANEU #### [address] [address] Monocyte, Absolute 0.9 10 3/mcL Normal 0.2-1.0 [facility] ([place]) Comment on above: Performed By: #### B MP, GFR, ADIFF, CBC, LONDON, ANEU #### [address] [address] Monocytes/100 WBC (Bld) 7.7 % Normal 1.7-13.0 A On license of [facility] ([place]) Comment on above: Performed By: #### B MP, GFR, ADIFF, CBC, LONDON, ANEU #### [address] [address] Neutrophils/100 WBC (Bld) 74.7 % Normal 37.0-80.0 [facility] ([place]) Comment on above: Performed By: #### B MP, GFR, ADIFF, CBCLONDON, ANEU #### [address] [address] .GFRon 09-30-2023 GFR Non- 72 ml/min/1.73sqm Normal [facility] ([place]) Comment on above: Result Comment: GFR Population [...] #### B MP, GFR, ADIFF, CBCLONDON, ANEU ####[address] [address] GFR 87 ml/min/1.73sqm Normal [facility] ([place]) Comment on above: Result Comment: GFR Population [...] GFR, ADIFF, CBC, MDW, ANEU ####[address] [place], [place] [address] .MDWon 09-30-2023 Monocyte Distribution Width 19.90 Normal 0.00-20.00 [facility] ([place]) Comment on above: Result Comment: For ED adult patients suspected of sepsis, MDW<=20.0 does not rule out sepsis or risk of sepsis Performed By: #### B MP, GFR, ADIFF, CBC, MDW, ANEU ####[address] [place], [place] [address] .NEUABSon 09-30-2023 Neutrophil, Absolute 8.5 10 3/mcL High 2.9-6.2 [facility] ([place]) Comment on above: Performed By: #### B MP, GFR, ADIFF, CBC, MDW, ANEU #### [address] [place], [place] [address] .Urinalysis Microscopic (AO) on 09-30-2023 UA Bacteria 4+ /hpf Abnormal [facility] ([place]) Comment on above: Performed By: #### P REGU, UAMICAO, UA ####[address] [place], [place] [address] UA RBC 5-10 Abnormal None Seen [facility] ([place]) Comment on above: Performed By: #### P REGU, UAMICAO, UA ####[address] [place], [place] [address] UA Squam Epithelial LOADED Abnormal None Seen [facility] ([place]) Comment on above: Performed By: #### P REGU, UAMICAO, UA ####[address] [place], [place] [address] UA WBC LOADED Abnormal None Seen [facility] ([place]) Comment on above: Performed By: #### P REGU, UAMICAO, UA ####[address] [place], [place] [address] BMPon 09-30-2023 BUN/Creatinine Ratio 19 ratio Normal 7-27 [facility] ([place]) Comment on above: Performed By: #### B MP, GFR, ADIFF, CBC, LONDON, ANEU ####[address] [place], [place] [address] Calcium [Mass/Vol] 8.7 mg/dL Normal 8.4-10.2 [facility] ([place]) Comment on above: Performed By: #### B MP, GFR, ADIFF, CBC, LONDON, ANEU ####[address] [place], [place] [address] Chloride [Moles/Vol] 102 mmol/L Normal 98-107 [facility] ([place]) Comment on above: Performed By: #### B MP, GFR, ADIFF, CBC, LONDON, ANEU ####[address] [place], [place] [address] CO2 [Moles/Vol] 29 mmol/L Normal 22-29 [facility] ([place]) Comment on above: Performed By: #### B MP, GFR, ADIFF, CBC, LONDON, ANEU ####[address] [place], [place] [address] Creatinine [Mass/Vol] 0.86 mg/dL Normal 0.55-1.02 [facility] ([place]) Comment on above: Performed By: #### B MP, GFR, ADIFF, CBC, LONDON, ANEU ####[address] [place], [place] [address] Electrolyte Balance 7.0 mEq/L Normal 4.0-15.0 [facility] ([place]) Comment on above: Performed By: #### B MP, GFR, ADIFF, CBC, LONDON, ANEU ####[address] [place], [place] [address] Glucose [Mass/Vol] 125 mg/dL High 70-105 [facility] ([place]) Comment on above: Performed By: #### B MP, GFR, ADIFF, CBC, LONDON, ANEU ####[address] [place], [place] [address] Potassium [Moles/Vol] 3.7 mmol/L Normal 3.5-5.1 [facility] ([place]) Comment on above: Performed By: #### B MP, GFR, ADIFF, CBC, LONDON, ANEU ####[address] [place], [place] [address] Sodium [Moles/Vol] 138 mmol/L Normal 136-145 [facility] ([place]) Comment on above: Performed By: #### B MP, GFR, ADIFF, CBCLONDON, ANEU ####[address] [place], [place] [address] Urea nitrogen [Mass/Vol] 16 mg/dL Normal 7-18 [facility] ([place]) Comment on above: Performed By: #### B MP, GFR, ADIFF, CBCLONDON, ANEU ####[address] [place], [place] [address] CBCon 09-30-2023 Erythrocyte distribution width (RBC) [Ratio] 13.4 % Normal 11.5-14.5 [facility] ([place]) Comment on above: Performed By: #### B MP, GFR, ADIFF, CBCLONDON, ANEU #### [address] [address] Hematocrit (Bld) [Volume fraction] 33.5 % Low 37.0-47.0 [facility] ([place]) Comment on above: Performed By: #### B MP, GFR, ADIFF, CBCLONDON, ANEU #### [address] [place], [place] [address] Hgb 11.2 G/dL Low 12.0-16.0 [facility] ([place]) Comment on above: Performed By: #### B MP, GFR, ADIFF, CBC, LONDON, ANEU #### [address] [address] MCH (RBC) [Entitic mass] 29.0 pg Normal 27.0-31.2 [facility] ([place]) Comment on above: Performed By: #### B MP, GFR, ADIFF, LONDON PIÑA, ANEU #### [address] [address] MCHC 33.5 G/dL Normal 33.0-37.0 [facility] ([place]) Comment on above: Performed By: #### B MP, GFR, ADIFF, LONDON PIÑA, ANEU #### [address] [address] MCV (RBC) [Entitic vol] 86.5 fL Normal 80.0-94.0 A On license of [facility] ([place]) Comment on above: Performed By: #### B MP, GFR, ADIFF, LONDON PIÑA, ANEU #### [address] [address] Platelet 234 10 3/mcL Normal 130-400 [facility] ([place]) Comment on above: Performed By: #### B MP, GFR, ADSUKHJINDER, LONDON PIÑA, ANEU #### [address] [address] Platelet mean volume (Bld) [Entitic vol] 7.7 fL Normal 7.4-10.4 [facility] ([place]) Comment on above: Performed By: #### B MP, GFR, ADIFF, LONDON PIÑA, ANEU #### [address] [address] RBC 3.88 10 6/mcL Low 4.20-5.40 [facility] ([place]) Comment on above: Performed By: #### B MP, GFR, ADIFF, LONDON PIÑA, ANEU #### [address] [address] WBC 11.4 10 3/mcL High 4.6-10.8 [facility] ([place]) Comment on above: Performed By: #### B MP, GFR, ADSUKHJINDER, MD WANGW, ANEU #### [address] [place] [id number] [place], [place] [address] CT ABDOMEN/PELVIS W/O CONTRA STon 09-30-2023 CT [...] 09/30/2023 1:36:29 PM Ordering Provider: CAPRICE Mitchell [facility] ([place]) LABORATORYOrdered By: Kj Nevarez on 09-30-2023 Appearance [...] HCG ( test) Ql (U) Negative Normal [facility] ([place]) Comment on above: Performed By: #### P REGU, UAMICAO, UA ####[address] [place], [place] [address] test (u) int Not detected Invalid Interpretation Code [facility] ([place]) Comment on above: Performed By: #### P REGU, UAMICAO, UA ####[address] [place], [place] [address] UAon 09-30-2023 Color (U) Yellow Normal [facility] ([place]) Comment on above: Performed By: #### P REGU, UAMICAO, UA ####[address] [place], [place] [address] Glucose (U) [Mass/Vol] Negative Normal Negative [facility] ([place]) Comment on above: Performed By: #### P REGU, UAMICAO, UA ####[address] [place], [place] [address] Ketones Ql (U) Negative Normal Negative [facility] ([place]) Comment on above: Performed By: #### P REGU, UAMICAO, UA ####[address] [place], [place] [address] UA Appear Cloudy Abnormal Clear [facility] ([place]) Comment on above: Performed By: #### P REGU, UAMICAO, UA ####[address] [place], [place] [address] UA Blood Trace Abnormal Negative [facility] ([place]) Comment on above: Performed By: #### P REGU, UAMICAO, UA ####[address] [place], [place] [address] UA Leuk Est Moderate Abnormal Negative [facility] ([place]) Comment on above: Performed By: #### P REGU, UAMICAO, UA ####[address] [place] [address] UA Nitrite Positive Abnormal Negative [facility] ([place]) Comment on above: Performed By: #### P REGU, UAMICAO, UA ####[address] [place] [id number] UA pH 5.5 Normal 5.0 - 8.0 [facility] ([place]) Comment on above: Performed By: #### P REGU, UAMICAO, UA ####[address] [place] [address] UA Protein 30 mg/dL Normal Negative [facility] ([place]) Comment on above: Performed By: #### P REGU, UAMICAO, UA ####[address] [place], [place] [address] UA Spec Grav 1.020 Normal 1.015-1.025 [facility] ([place]) Comment on above: Performed By: #### P REGU, UAMICAO, UA ####[address] [place], [place] [address] UA Specimen Type Clean Catch Normal [facility] ([place]) Comment on above: Performed By: #### P REGU, UAMICAO, UA ####[address] [place] [id number] UA Urobilinogen 0.2 E.U./dL Normal 0.2-1.0 [facility] ([place]) Comment on above: Performed By: #### P REGU, UAMICAO, UA ####[address] [place], [place] [address] Urobilinogen (U) [Mass/Vol] Negative Normal Negative [facility] ([place]) Comment on above: Performed By: #### P REGU, UAMICAO, UA ####[address] [place], [place] [address] .Urinalysis Microscopic (AO) on 09-22-2023 UA Bacteria 1+ /hpf Abnormal [facility] ([place]) Comment on above: Performed By: #### U AMICAO, PREGU, UA ####[address] [place], [place] [address] UA RBC 0-5 Abnormal None Seen [facility] ([place]) Comment on above: Performed By: #### U AMICAO, PREGU, UA ####[address] [place], [place] [address] UA Squam Epithelial 0-5 Abnormal None Seen [facility] ([place]) Comment on above: Performed By: #### U AMICAO, PREGU, UA ####[address] [place], [place] [address] UA WBC LOADED Abnormal None Seen [facility] ([place]) Comment on above: Performed By: #### U AMICAO, PREGU, UA ####[address] [place], [place] [address] CT ABDOMEN/PELVIS W/O CONTRA STon 09-22-2023 CT ABDOMEN/PELVIS W/O CONTRAST ORIGINAL EXAMINATION: CT OF THE ABDOMEN AND PELVIS WITHOUT BPEFHBPD67/16/2023 6:38 pm TECHNIQUE: CT of the abdomen [...] 09/22/2023 6:46:22 PM Ordering Provider: MYA MYERS [facility] ([place]) LABORATORYOrdered By: Quinn Boswell on 09-22-2023 Appearance [...] HCG ( test) Ql (U) Negative Normal [facility] ([place]) Comment on above: Performed By: #### U AMICAO, PREGU, UA ####[address] [place], [place] [address] test (u) int Not detected Invalid Interpretation Code [facility] ([place]) Comment on above: Performed By: #### U AMICAO, PREGU, UA ####[address] [place], [place] [address] UAon 09-22-2023 Color (U) Yellow Normal [facility] ([place]) Comment on above: Performed By: #### U AMICAO, PREGU, UA ####[address] [place], [place] [address] Glucose (U) [Mass/Vol] Negative Normal Negative [facility] ([place]) Comment on above: Performed By: #### U AMICAO, PREGU, UA ####[address] [place], [place] [address] Ketones Ql (U) Negative Normal Negative [facility] ([place]) Comment on above: Performed By: #### U AMICAO, PREGU, UA ####[address] [place], [place] [address] UA Appear Cloudy Abnormal Clear [facility] ([place]) Comment on above: Performed By: #### U AMICAO, PREGU, UA ####[address] [place], [place] [address] UA Blood Moderate Abnormal Negative [facility] ([place]) Comment on above: Performed By: #### U AMICAO, PREGU, UA ####[address] [place] [address] UA Leuk Est Moderate Abnormal Negative [facility] ([place]) Comment on above: Performed By: #### U AMICAO, PREGU, UA ####[address] [place] [address] UA Nitrite Positive Abnormal Negative [facility] ([place]) Comment on above: Performed By: #### U AMICAO, PREGU, UA ####[address] [place], [place] [address] UA pH 6.5 Normal 5.0 - 8.0 [facility] ([place]) Comment on above: Performed By: #### U AMICAO, PREGU, UA ####[address] [place], [place] [address] UA Protein 100 mg/dL Abnormal Negative [facility] ([place]) Comment on above: Performed By: #### U AMICAO, PREGU, UA ####[address] [place], [place] [address] UA Spec Grav 1.020 Normal 1.015-1.025 [facility] ([place]) Comment on above: Performed By: #### U AMICAO, PREGU, UA ####[address] [place], [place] [address] UA Specimen Type Clean Catch Normal [facility] ([place]) Comment on above: Performed By: #### U AMICAO, PREGU, UA ####[address] [place] [address] UA Urobilinogen 0.2 E.U./dL Normal 0.2-1.0 [facility] ([place]) Comment on above: Performed By: #### U YAMILET PREGU, UA ####[address] [place], [place] [address] Urobilinogen (U) [Mass/Vol] Negative Normal Negative [facility] ([place]) Comment on above: Performed By: #### U HENRYCAJaylin PREGU, UA ####[address] [place], [place] [address] Absolute lymphocyte countOrd ered By: Werner Moore on 08-19-2023 Lymphocytes Auto (Unsp spec) [#/Vol] 2.35 10*3/uL 0.83-4.51 [facility] Basophil percentageOrdered B y: Werner Moore on 08-19-2023 Basophils/100 WBC (Bld) 0.4 % 0-1 [facility] Chloride [Moles/Vol] 108 mmol/L 98-107 [facility] Eosinophils/100 WBC (Bld) 2.4 % 0-5 [facility] Glucose [Mass/Vol] 118 mg/dL 74-106 [facility] Comment on above: Fasting Glucose resu lt from 100 to 125 mg/dL suggests IMPAIRED HOMEOSTASIS per A.D.A. criteria. Neutrophils (Bld) [#/Vol] 5.8 10*3/uL 2.0-7.7 [facility] Neutrophils/100 WBC (Bld) 64.2 % 47-70 [facility] Potassium [Moles/Vol] 4.1 mmol/L 3.5-5.[address] [facility] Comment on above: Slight Hemolysis, Re sult may be falsely increased. Sodium [Moles/Vol] 143 mmol/L 136-145 [facility] WBC (Bld) [#/Vol] 9.1 10*3/uL 4.4-11.0 [facility] Blood erythrocytes count (nu mber/volume)Ordered By: Werner Moore on 08-19-2023 RBC (Bld) [#/Vol] 4.28 10*6/uL 4.2-5.4 [facility] Blood hemoglobin measurement (mass/volume)Ordered By: Werner Moore on 08-19-2023 Hemoglobin (Bld) [Mass/Vol] 12.4 g/dL 12.0-15.0 [facility] Blood lymphocytes/100 leukoc ytesOrdered By: Werner Moore on 08-19-2023 Lymphocytes/100 WBC (Bld) 25.9 % 19-41 [facility] Blood monocytes/100 leukocyt esOrdered By: Werner Moore on 08-19-2023 Monocytes/100 WBC (Bld) 6.8 % 0-10 [facility] Blood platelet mean volumeOr dered By: Werner Moore on 08-19-2023 Platelet mean volume (Bld) [Entitic vol] 10.5 fL 6.2-12.0 [facility] Determination of erythrocyte mean corpuscular volume (MCV)Ordered By: Werner Moore on 08-19-2023 MCV (RBC) [Entitic vol] 90.0 fL 81-99 [facility] Hematocrit Auto (Bld) [Volum e fraction]Ordered By: Werner Moore on 08-19-2023 Hematocrit (Bld) [Volume fraction] 38.5 % 37-47 [facility] Laboratory - Chemistry and C hemistry - challengeOrdered By: Werner Moore on 08-19-2023 CO2 [Moles/Vol] 31.0 mmol/L 21.0-32.0 [facility] Urea nitrogen/Creatinine [Mass ratio] 24.0 mg/mg 10-20 [facility] Laboratory - Hematology and Cell countsOrdered By: Werner Moore on 08-19-2023 Erythrocyte distribution width (RBC) [Entitic vol] 40.8 fL 35.1-43.9 [facility] Erythrocyte distribution width (RBC) [Ratio] 12.5 % 11.6-14.6 [facility] Immature granulocytes/100 WBC (Bld) 0.300 % 0.0-0.9 [facility] Comment on above: IG% - Immature Granu locytes (promyelocytes, myelocytes and metamyelocytes) > 1% indicates that a LEFT SHIFT is Present. MCH (RBC) [Entitic mass] 29.0 pg 27.0-32.0 [facility] Nucleated RBC/100 WBC (Bld) [Ratio] 0 % 0-5 [facility] MCHC Auto (RBC) [Mass/Vol]Or dered By: Werner Moore on 08-19-2023 MCHC (RBC) [Mass/Vol] 32.2 g/dL 32-[address] [facility] No Panel InformationOrdered By: Werner Moore on 08-19-2023 Estimated GFR (MDRD) Amer 102 mL/min >60 [facility] Comment on above: GFR Calc Estimated GFR (MDRD) Non-Af Amer 84 mL/min >60 [facility] Comment on above: Non- GFR Calc Platelets bldOrdered By: Blanquita Moore on 08-19-2023 Platelets (Bld) [#/Vol] 275 10*3/uL 150-450 [facility] Serum or plasma calcium boogie urement (mass/volume)Ordered By: Werner Moore on 08-19-2023 Calcium [Mass/Vol] 8.9 mg/dL 8.5-10.1 [facility] Serum or plasma creatinine m easurement (mass/volume)Ordered By: Werner Moore on 08-19-2023 Creatinine [Mass/Vol] 0.79 mg/dL 0.55-1.[address] [facility] Comment on above: The validity of the calculated GFR & GFRAA in patients over 70 years has not been determined. Clinical correlation is essential. Serum or plasma urea nitroge n measurement (mass/volume)Ordered By: Werner Moore on 08-19-2023 Urea nitrogen [Mass/Vol] 19 mg/dL 7-18 [facility] Thin prep Papanicolaou smear with manual screeningOrdered By: Werner Moore on 08-19-2023 Thin prep Papanicolaou smear with manual screening 4 5-15 [facility] Whole blood hemoglobin A1c/t otal hemoglobin ratio (mass fraction)Ordered By: Werner Moore on 08-19-2023 HbA1c (Bld) [Mass fraction] 6.9 % 3.8-5.6 [facility] Comment on above: Normal < 5.7 % Predi abetic 5.7 - 6.4 % Diabetic >or= 6.5 % Please note range changes. CBC W Auto Differential pane l (Bld)on 06-03-2023 Basophils (Bld) [#/Vol] 0.03 10*3/uL <0.11 k/uL [facility] Basophils/100 WBC (Bld) 0.3 % [facility] Differential cell count method Nom (Bld) Auto [facility] Eosinophils (Bld) [#/Vol] 0.13 10*3/uL <0.46 k/uL [facility] Eosinophils/100 WBC (Bld) 1.4 % [facility] Erythrocyte distribution width (RBC) [Ratio] 12.5 % 11.5 - 15.0 % [facility] Hematocrit (Bld) [Volume fraction] 42.7 % 36.0 - 46.0 % [facility] Hemoglobin (Bld) [Mass/Vol] 13.7 g/dL 11.5 - 15.5 g/dL [facility] Immature granulocytes (Bld) [#/Vol] <0.10 k/uL [facility] Immature granulocytes/100 WBC (Bld) 0.2 % [facility] Lymphocytes (Bld) [#/Vol] 2.72 10*3/uL 1.00 - 4.00 k/uL [facility] Lymphocytes/100 WBC (Bld) 30.0 % [facility] MCH (RBC) [Entitic mass] 29.3 pg 26.0 - 34.0 pg [facility] MCHC (RBC) [Mass/Vol] 32.1 g/dL 30.5 - 36.0 g/dL [facility] MCV (RBC) [Entitic vol] 91.4 fL 80.0 - 100.0 fL [facility] Monocytes (Bld) [#/Vol] 0.70 10*3/uL <0.87 k/uL [facility] Monocytes/100 WBC (Bld) 7.7 % [facility] Neutrophils (Bld) [#/Vol] 5.48 10*3/uL 1.45 - 7.50 k/uL [facility] Neutrophils/100 WBC (Bld) 60.4 % [facility] Nucleated RBC (Bld) [#/Vol] <0.01 k/uL [facility] Nucleated RBC/100 WBC (Bld) [Ratio] 0.0 /100 WBC [facility] Platelet mean volume (Bld) [Entitic vol] 11.4 fL 9.0 - 12.7 fL [facility] Platelets (Bld) [#/Vol] 225 10*3/uL 150 - 400 k/uL [facility] RBC (Bld) [#/Vol] 4.67 10*6/uL 3.90 - 5.2 0 m/uL [facility] WBC (Bld) [#/Vol] 9.08 10*3/uL 3.70 - 11.00 k/uL [facility] HbA1c (Bld)on 06-03-2023 Average glucose Estimated from glycated hemoglobin (Bld) [Mass/Vol] 232 mg/dL [facility] HbA1c (Bld) [Mass fraction] 9.7 % High 4.3 - 5.6 % [facility] Absolute lymphocyte countOrd ered By: Dr. Link on 04-13-2023 Lymphocytes Auto (Unsp spec) [#/Vol] 2.52 10*3/uL 0.83-4.51 [facility] Basophil percentageOrdered B y: Dr. Link on 04-13-2023 Basophils/100 WBC (Bld) 0.4 % 0-1 [facility] Chloride [Moles/Vol] 101 mmol/L 98-107 [facility] Eosinophils/100 WBC (Bld) 1.4 % 0-5 [facility] Glucose [Mass/Vol] 426 mg/dL 74-106 [facility] Comment on above: Glucose result great er than or equal to 200 mg/dLsuggests DIABETES MELLITUS per A.D.A. criteria. Neutrophils (Bld) [#/Vol] 9.0 10*3/uL 2.0-7.7 [facility] Neutrophils/100 WBC (Bld) 72.1 % 47-70 [facility] Potassium [Moles/Vol] 4.2 mmol/L 3.5-5.[address] [facility] Sodium [Moles/Vol] 137 mmol/L 136-145 [facility] WBC (Bld) [#/Vol] 12.5 10*3/uL 4.4-11.0 [facility] Blood erythrocytes count (nu mber/volume)Ordered By: Dr. Link on 04-13-2023 RBC (Bld) [#/Vol] 4.63 10*6/uL 4.2-5.4 [facility] Blood hemoglobin measurement (mass/volume)Ordered By: Dr. Link on 04-13-2023 Hemoglobin (Bld) [Mass/Vol] 13.6 g/dL 12.0-15.0 [facility] Blood lymphocytes/100 leukoc ytesOrdered By: Dr. Link on 04-13-2023 Lymphocytes/100 WBC (Bld) 20.2 % 19-41 [facility] Blood monocytes/100 leukocyt esOrdered By: Dr. Link on 04-13-2023 Monocytes/100 WBC (Bld) 5.1 % 0-10 [facility] Blood platelet mean volumeOr dered By: Dr. Link on 04-13-2023 Platelet mean volume (Bld) [Entitic vol] 11.8 fL 6.2-12.0 [facility] Determination of erythrocyte mean corpuscular volume (MCV)Ordered By: Dr. Link on 04-13-2023 MCV (RBC) [Entitic vol] 87.9 fL 81-99 [facility] Glucose Glucometer (BldC) [M ass/Vol]Ordered By: Dr. Link on 04-13-2023 Glucose [Mass/Vol] 427 mg/dL 74-106 [facility] Comment on above: MANAGEMENT OF PATIEN T CARE PER NURSING PROTOCOL Hematocrit Auto (Bld) [Volum e fraction]Ordered By: Dr. Link on 04-13-2023 Hematocrit (Bld) [Volume fraction] 40.7 % 37-47 [facility] Laboratory - Chemistry and C hemistry - challengeOrdered By: Dr. Link on 04-13-2023 CO2 [Moles/Vol] 28.0 mmol/L 21.0-32.0 [facility] Urea nitrogen/Creatinine [Mass ratio] 16.7 mg/mg 10-20 [facility] Laboratory - Hematology and Cell countsOrdered By: Dr. Link on 04-13-2023 Erythrocyte distribution width (RBC) [Entitic vol] 39.3 fL 35.1-43.9 [facility] Erythrocyte distribution width (RBC) [Ratio] 12.3 % 11.6-14.6 [facility] Immature granulocytes/100 WBC (Bld) 0.800 % 0.0-0.9 [facility] Comment on above: IG% - Immature Granu locytes (promyelocytes, myelocytes and metamyelocytes) > 1% indicates that a LEFT SHIFT is Present. MCH (RBC) [Entitic mass] 29.4 pg 27.0-32.0 [facility] Nucleated RBC/100 WBC (Bld) [Ratio] 0 % 0-5 [facility] MCHC Auto (RBC) [Mass/Vol]Or dered By: Dr. Link on 04-13-2023 MCHC (RBC) [Mass/Vol] 33.4 g/dL 32-[address] [facility] No Panel InformationOrdered By: Dr. Link on 04-13-2023 Estimated Creatinine Clearance Calc 72.48 ml/min [facility] Estimated GFR (MDRD) Amer 76 mL/min >60 [facility] Comment on above: GFR Calc Estimated GFR (MDRD) Non-Af Amer 63 mL/min >60 [facility] Comment on above: Non- GFR Calc Platelets bldOrdered By: Dr. Link on 04-13-2023 Platelets (Bld) [#/Vol] 266 10*3/uL 150-450 [facility] Serum or plasma calcium boogie urement (mass/volume)Ordered By: Dr. Link on 04-13-2023 Calcium [Mass/Vol] 10.0 mg/dL 8.5-10.1 [facility] Serum or plasma creatinine m easurement (mass/volume)Ordered By: Dr. Link on 04-13-2023 Creatinine [Mass/Vol] 1.02 mg/dL 0.55-1.[address] [facility] Comment on above: The validity of the calculated GFR & GFRAA in patients over 70 years has not been determined. Clinical correlation is essential. Serum or plasma urea nitroge n measurement (mass/volume)Ordered By: Dr. Link on 04-13-2023 Urea nitrogen [Mass/Vol] 17 mg/dL 7-18 [facility] Thin prep Papanicolaou smear with manual screeningOrdered By: Dr. Link on 04-13-2023 Thin prep Papanicolaou smear with manual screening 8 5-15 [facility] ALLIED HEALTHon 02-27-2023 ALLIED HEALTH HNO ID: [id number] Author: LANDEN Stahl Service: Radiology Author Type: Technologist Type: Allied [...] PERIPHERAL IV DATA: Not applicable SIGNED BY: LANDEN Stahl February 27, 2023 5:48 PM Normal [place] CBC W Auto Differential pane l (Bld)on 02-27-2023 Basophils (Bld) [#/Vol] 0.03 10*3/uL Normal <0.11 [place] Comment on above: Order Comment: Speci men Type: BLOOD SPECIMENOrdering Facility: [facility] Address: [address] [place] [address] Performed By: #### 5 7021-8 ####[facility] LABORATORYCLIA [id number] [place] [address] [place] Basophils/100 WBC (Bld) 0.4 % Normal [facility] Comment on above: Order Comment: Speci men Type: BLOOD SPECIMENOrdering Facility: [facility] Address: [address] [address] Performed By: #### 5 7021-8 ####[facility] LABORATORYCLIA [id number] [place] [address] [place] Differential cell count method Nom (Bld) Auto Normal [place] Comment on above: Order Comment: Speci men Type: BLOOD SPECIMENOrdering Facility: [facility] Address: [address] [address] Performed By: #### 5 7021-8 ####[facility] LABORATORYCLIA [id number] [address] [place] Eosinophils (Bld) [#/Vol] 0.12 10*3/uL Normal <0.46 [place] Comment on above: Order Comment: Speci men Type: BLOOD SPECIMENOrdering Facility: [facility] Address: [address] [address] Performed By: #### 5 7021-8 ####[facility] LABORATORYCLIA [id number] [address] Eosinophils/100 WBC (Bld) 1.4 % Normal [place] Comment on above: Order Comment: Speci men Type: BLOOD SPECIMENOrdering Facility: [facility] Address: [address] [address] Performed By: #### 5 7021-8 ####[facility] LABORATORYCLIA [id number] [address] Erythrocyte distribution width (RBC) [Ratio] 12.8 % Normal 11.5-15.0 [place] Comment on above: Order Comment: Speci men Type: BLOOD SPECIMENOrdering Facility: [facility] Address: [address] [place] [address] Performed By: #### 5 7021-8 ####[facility] LABORATORYCLIA [id number] [address] Hematocrit (Bld) [Volume fraction] 39.8 % Normal 36.0-46.0 [place] Comment on above: Order Comment: Speci men Type: BLOOD SPECIMENOrdering Facility: [facility] Address: [address] [address] Performed By: #### 5 7021-8 ####[facility] LABORATORYCLIA [id number] [address] [place] Hemoglobin (Bld) [Mass/Vol] 13.7 g/dL Normal 11.5-15.5 [place] Comment on above: Order Comment: Speci men Type: BLOOD SPECIMENOrdering Facility: [facility] Address: [address] [address] Performed By: #### 5 7021-8 ####[facility] LABORATORYCLIA [id number] [address] [place] Immature granulocytes (Bld) [#/Vol] 10*3/uL Normal <0.10 [place] Comment on above: Order Comment: Speci men Type: BLOOD SPECIMENOrdering Facility: [facility] Address: [address] [place] [address] Performed By: #### 5 7021-8 ####[facility] LABORATORYCLIA [id number] [address] Immature granulocytes/100 WBC (Bld) 0.2 % Normal [place] Comment on above: Order Comment: Speci men Type: BLOOD SPECIMENOrdering Facility: [facility] Address: [address] [place] [address] Performed By: #### 5 7021-8 ####[facility] LABORATORYCLIA [id number] [address] [place] Lymphocytes (Bld) [#/Vol] 2.07 10*3/uL Normal 1.00-4.00 [place] Comment on above: Order Comment: Speci men Type: BLOOD SPECIMENOrdering Facility: [facility] Address: [address] [place] [address] Performed By: #### 5 7021-8 ####[facility] LABORATORYCLIA [id number] [address] Lymphocytes/100 WBC (Bld) 24.3 % Normal [place] Comment on above: Order Comment: Speci men Type: BLOOD SPECIMENOrdering Facility: [facility] Address: [address] [place] [address] Performed By: #### 5 7021-8 ####[facility] LABORATORYCLIA [id number] [place] [address] [place] MCH (RBC) [Entitic mass] 30.6 pg Normal 26.0-34.0 [place] Comment on above: Order Comment: Speci men Type: BLOOD SPECIMENOrdering Facility: [facility] Address: [address] [place] [address] Performed By: #### 5 7021-8 ####[facility] LABORATORYCLIA [id number] [address] MCHC (RBC) [Mass/Vol] 34.4 g/dL Normal 30.5-36.0 [facility] Comment on above: Order Comment: Speci men Type: BLOOD SPECIMENOrdering Facility: [facility] Address: [address] [place] [address] Performed By: #### 5 7021-8 ####[facility] LABORATORYCLIA [id number] [address] MCV (RBC) [Entitic vol] 88.8 fL Normal 80.0-100.0 [facility] Comment on above: Order Comment: Speci men Type: BLOOD SPECIMENOrdering Facility: [facility] Address: [address] [place] [address] Performed By: #### 5 7021-8 ####[facility] LABORATORYCLIA [id number] [address] Monocytes (Bld) [#/Vol] 0.46 10*3/uL Normal <0.87 [place] Comment on above: Order Comment: Speci men Type: BLOOD SPECIMENOrdering Facility: [facility] Address: [address] [place] [address] Performed By: #### 5 7021-8 ####[facility] LABORATORYCLIA [id number] [address] Monocytes/100 WBC (Bld) 5.4 % Normal [facility] Comment on above: Order Comment: Speci men Type: BLOOD SPECIMENOrdering Facility: [facility] Address: [address] [place] [address] Performed By: #### 5 7021-8 ####[facility] LABORATORYCLIA [id number] [address] Neutrophils (Bld) [#/Vol] 5.83 10*3/uL Normal 1.45-7.50 [place] Comment on above: Order Comment: Speci men Type: BLOOD SPECIMENOrdering Facility: [facility] Address: [facility] [address] [address] Performed By: #### 5 7021-8 ####[facility] LABORATORYCLIA [id number] [address] Neutrophils/100 WBC (Bld) 68.3 % Normal [place] Comment on above: Order Comment: Speci men Type: BLOOD SPECIMENOrdering Facility: [facility] Address: [address] [place] [address] Performed By: #### 5 7021-8 ####[facility] LABORATORYCLIA [id number] [place] [address] [place] Nucleated RBC (Bld) [#/Vol] 10*3/uL Normal <0.01 [place] Comment on above: Order Comment: Speci men Type: BLOOD SPECIMENOrdering Facility: [facility] Address: [address] [place] [address] Performed By: #### 5 7021-8 ####[facility] LABORATORYCLIA [id number] [address] [place] Nucleated RBC/100 WBC (Bld) [Ratio] 0.0 /100 WBC Normal [place] Comment on above: Order Comment: Speci men Type: BLOOD SPECIMENOrdering Facility: [facility] Address: [address] [place] [address] Performed By: #### 5 7021-8 ####[facility] LABORATORYCLIA [id number] [place] [address] [place] Platelet mean volume (Bld) [Entitic vol] 11.1 fL Normal 9.0-12.7 [place] Comment on above: Order Comment: Speci men Type: BLOOD SPECIMENOrdering Facility: [facility] Address: [address] [place] [address] Performed By: #### 5 7021-8 ####[facility] LABORATORYCLIA [id number] [place] [address] [place] Platelets (Bld) [#/Vol] 233 10*3/uL Normal 150-400 [place] Comment on above: Order Comment: Speci men Type: BLOOD SPECIMENOrdering Facility: [facility] Address: [address] [address] Performed By: #### 5 7021-8 ####[facility] LABORATORYCLIA [id number] [address] RBC (Bld) [#/Vol] 4.48 10*6/uL Normal 3.90-5.20 [facility] Comment on above: Order Comment: Speci men Type: BLOOD SPECIMENOrdering Facility: [facility] Address: [address] [address] Performed By: #### 5 7021-8 ####[facility] LABORATORYCLIA [id number] [address] WBC (Bld) [#/Vol] 8.53 10*3/uL Normal 3.70-11.00 [facility] Comment on above: Order Comment: Speci men Type: BLOOD SPECIMENOrdering Facility: [facility] Address: [address] [address] Performed By: #### 5 7021-8 ####[facility] LABORATORYCLIA [id number] [address] BRAIN WO IVCONon 02-28-20 CT BRAIN WO IVCON * * *Final Report* * * DATE OF EXAM: Feb 27 2023 5:50PM [facility] 0504 - CT BRAIN WO IVCON / [...] Other: No depressed skull fracture is seen. Business Excellence Leader (topogram) images: Non-diagnostic or no additional significant findings. IMPRESSION: No CT evidence of an acute intracranial abnormality. MRI may be considered as a more sensitive modality if continued clinical concern/warranted. Meat Carrier: CESAR Transcribe Date/Time: Feb 27 2023 5:59P Dictated by : HENRY FERNÁNDEZ MD This examination was interpreted and the report reviewed and electronically signed by: HENRY FERNÁNDEZ MD on Feb 27 2023 6:02PM EST [id number] Normal [place] Comprehensive metabolic 2000 panelon 02-27-2023 Albumin [Mass/Vol] 4.4 g/dL Normal 3.9-4.9 [place] Comment on above: Order Comment: Farzana chairez Type: BLOOD SPECIMENOrdering Facility: [facility] Address: [address] [address] Performed By: #### 2 4323-8 ####[facility] LABORATORYCLIA [id number] [place] [address] [place] [facility] ALP [Catalytic activity/Vol] 121 U/L Normal 34-123 [place] Comment on above: Order Comment: Farzana chairez Type: BLOOD SPECIMENOrdering Facility: [facility] Address: [address] [address] Performed By: #### 2 4323-8 ####[facility] LABORATORYCLIA [id number] [address] ALT [Catalytic activity/Vol] 22 U/L Normal 7-38 [place] Comment on above: Order Comment: Farzana chairez Type: BLOOD SPECIMENOrdering Facility: [facility] Address: [address] [address] Performed By: #### 2 4323-8 ####[facility] LABORATORYCLIA [id number] [place] [address] [place] Anion gap [Moles/Vol] 9 mmol/L Normal 9-18 [facility] Comment on above: Order Comment: Speci men Type: BLOOD SPECIMENOrdering Facility: [facility] Address: [address] [address] Performed By: #### 2 4323-8 ####[facility] LABORATORYCLIA [id number] [place] [address] [place] AST [Catalytic activity/Vol] 18 U/L Normal 13-35 [place] Comment on above: Order Comment: Speci men Type: BLOOD SPECIMENOrdering Facility: [facility] Address: [address] [place] [address] Performed By: #### 2 4323-8 ####[facility] LABORATORYCLIA [id number] [place] [address] [place] Bilirubin [Mass/Vol] 0.2 mg/dL Normal 0.2-1.3 [facility] Comment on above: Order Comment: Speci men Type: BLOOD SPECIMENOrdering Facility: [facility] Address: [address] [address] Performed By: #### 2 4323-8 ####[facility] LABORATORYCLIA [id number] [address] [place] Calcium [Mass/Vol] 9.8 mg/dL Normal 8.5-10.2 [place] Comment on above: Order Comment: Speci men Type: BLOOD SPECIMENOrdering Facility: [facility] Address: [address] [address] Performed By: #### 2 4323-8 ####[facility] LABORATORYCLIA [id number] [place] [address] [place] Chloride [Moles/Vol] 103 mmol/L Normal 97-105 [facility] Comment on above: Order Comment: Speci men Type: BLOOD SPECIMENOrdering Facility: [facility] Address: [address] [address] Performed By: #### 2 4323-8 ####[facility] LABORATORYCLIA [id number] [address] [place] CO2 [Moles/Vol] 28 mmol/L Normal 22-30 [place] Comment on above: Order Comment: Farzana chairez Type: BLOOD SPECIMENOrdering Facility: [facility] Address: [address] [place] [address] Performed By: #### 2 4323-8 ####[facility] LABORATORYCLIA [id number] [address] [place] Creatinine [Mass/Vol] 0.79 mg/dL Normal 0.58-0.96 [facility] Comment on above: Order Comment: Farzana mihaela Type: BLOOD SPECIMENOrdering Facility: [facility] Address: [address] [place] [address] Performed By: #### 2 4323-8 ####[facility] LABORATORYCLIA [id number] [address] ESTIMATED GLOMERULAR FILTRATION RATE 96 mL/min/1.73m??? Normal >=60 [place] Comment on above: Order Comment: Farzana men Type: BLOOD SPECIMENOrdering Facility: [facility] Address: [address] [place] [address] Result Comment: Shanel mated Glomerular Filtration Rate [...] Performed By: #### 2 4323-8 ####[facility] LABORATORYCLIA [id number] [address] [place] Glucose [Mass/Vol] 211 mg/dL High 74-99 [place] Comment on above: Order Comment: Farzana mihaela Type: BLOOD SPECIMENOrdering Facility: [facility] Address: [address] [place] [address] Result Comment: The [place] Diabetes Association (ADA) provides guidance for cutoff [...] Standards of Medical Care in Diabetes 2016, [place] [employer]. Diabetes Care. 2016.39(Suppl 1). Performed By: #### 2 4323-8 ####[facility] LABORATORYCLIA [id number] [place] [address] [place] Potassium [Moles/Vol] 4.1 mmol/L Normal 3.7-5.1 [facility] Comment on above: Order Comment: Farzana chairez Type: BLOOD SPECIMENOrdering Facility: [facility] Address: [address] [place] [address] Performed By: #### 2 4323-8 ####[facility] LABORATORYCLIA [id number] [place] [address] [place] Protein [Mass/Vol] 7.7 g/dL Normal 6.3-8.0 [place] Comment on above: Order Comment: Farzana chairez Type: BLOOD SPECIMENOrdering Facility: [facility] Address: [address] [place] [address] Performed By: #### 2 4323-8 ####[facility] LABORATORYCLIA [id number] [address] [place] Sodium [Moles/Vol] 140 mmol/L Normal 136-144 [place] Comment on above: Order Comment: Farzana chairez Type: BLOOD SPECIMENOrdering Facility: [facility] Address: [address] [address] Performed By: #### 2 4323-8 ####[facility] LABORATORYCLIA [id number] [address] [place] Urea nitrogen [Mass/Vol] 17 mg/dL Normal 7-21 [place] Comment on above: Order Comment: Farzana men Type: BLOOD SPECIMENOrdering Facility: [facility] Address: [address] [place] [address] [place] [address] Performed By: #### 2 4323-8 ####[facility] LABORATORYCLIA [id number] [place] [address] [facility] ECG COMPLETEon 02-27-2023 ECG COMPLETE Ventricular Rate : 9 9 BPM Atrial Rate : 99 BPM P-R Interval : 162 ms QRS Duration : 80 ms Q-T Interval : 346 ms QTC Calculation(Bazett) : 444 ms Calculated P [place] : 49 degrees Calculated R [place] : -8 degrees Calculated T [place] : 21 degrees NORMAL SINUS RHYTHM MINIMAL VOLTAGE CRITERIA FOR LVH, MAY BE NORMAL VARIANT ( R in aVL ) POSSIBLE ANTERIOR INFARCT , AGE UNDETERMINED ABNORMAL ECG 1629 no STEMI Confirmed by MD WEINSTEIN PAUL ([id number]), social media editor ROBIN MCMULLEN ([id number]) on 02/28/2023 6:31:10 AM NAME : TRICE ZAMBRANO PID : [id number] : 1980 Gender : Female Race : ORD : [id number] Procedure Date : Feb 27 2023 16:27:19 Edit Date : Feb 28 2023 06:31:13 Diagnosis: NORMAL SINUS RHYTHM MINIMAL VOLTAGE CRITERIA FOR LVH, MAY BE NORMAL VARIANT ( R in aVL ) POSSIBLE ANTERIOR INFARCT , AGE UNDETERMINED ABNORMAL ECG 1629 no STEMI Confirmed by MD WEINSTEIN PAUL ([id number]), social media editor ROBIN MCMULLEN ([id number]) on 02/28/2023 6:31:10 AM Test Reason : Chest Pain Location : 1 : ER ED Overread By : MD WEINSTEIN PAUL Edited By : ROBIN MCMULLEN Referred By : , Acquired by : MAXIMINO [facility] ED NOTEon 02-27-2023 ED NOTE HNO ID: [id number] Author: Elisha Bae RN Service: Nursing Author [...] removed. No further questions at this time. [facility] ED NOTE HNO ID: [id number] Author: Elisha Bae RN Service: Nursing Author Type: Registered Nurse Type: ED Notes Filed: 02/27/2023 5:01 PM Note Text: Pt up to restroom. [facility] ED NOTE HNO ID: [id number] Author: Elisha Bae RN Service: Nursing Author Type: Registered Nurse Type: ED Notes Filed: 02/27/2023 4:42 PM Note Text: MD at [facility] ED NOTE HNO ID: [id number] Author: Caridad Rush RN Service: Nursing Author Type: Registered Nurse Type: ED Notes Filed: 02/27/2023 4:27 PM Note Text: Patient presents to ED with right arm numbness x 3 days. Patient states 2 weeks ago she also had left facial numbness, facial droop and felt foggy at that time, those symptoms lasted approximately 10 minutes [facility] ED PROV NOTEon 02-27-2023 ED PROV NOTE HNO ID: [id number] Author: Jose Weinstein MD Service: ? Author [...] Clinical Impression Clinical Impressions as of 02/27/23 180 Carpal tunnel syndrome of right wrist Paresthesias [...] a d (more content not included)... Normal [place] PT panel Coag (PPP)on 2022 INR Coag (PPP) [Relative time] {INR} Low 0.9-1.3 [place] Comment on above: Order Comment: Speci men Type: BLOOD SPECIMENOrdering Facility: [facility] Address: [address] [place] [id number] Result Comment: Kelli min K Antagonist (VKA) Therapeutic Range: INR 2 to 3 (Target INR of 2.5) Note: For patients treated with VKA drugs, such as warfarin, the [place] [employer] 2012 Guideline recommends [...] to 3.5 (target INR of 3). Allison ANDRADE, et al. Chest 2012, 141:7S-47S Aravind RA, et al. JACC 2017, 70: 252-289 Performed By: #### 3 4528-0 ####[facility] LABORATORYCLIA [id number] [place] [address] [place] PT Coag (PPP) [Time] 9.5 s Low 9.7-13.0 [facility] Comment on above: Order Comment: Speci men Type: BLOOD SPECIMENOrdering Facility: [facility] Address: [address] [place] [address] Performed By: #### 3 4528-0 ####[facility] LABORATORYCLIA [id number] [address] [place] Bacteria Bld Culton 11-28-19 23 Bacteria identified Cx Nom (Bld) CULTURE, BLOOD: No growth 5 days Normal [place] Comment on above: Performed By: #### 6 00-7 ####[facility] LABCLIA [id number] [address] [place] Bacteria identified Cx Nom (Bld) CULTURE, BLOOD: No growth 5 days Normal [place] Comment on above: Performed By: #### 6 00-7 ####[facility] LABCLIA [id number] [address] Bacteria Wnd Culton 11-28-19 23 Bacteria identified [...] F Susceptible <=1 , Nonsusceptible >1 Abnormal [place] Comment on above: Performed By: #### 6 462-6 ####[facility] LABCLIA [id number] [facility] [id number] CBC W Auto Differential pane l (Bld)on 11-28-2022 Basophils (Bld) [#/Vol] 0.04 10*3/uL Normal <0.11 [place] Comment on above: Order Comment: Farzana chairez Type: BLOOD SPECIMENOrdering Facility: [facility] Address: [address] [address] Performed By: #### 5 7021-8 ####[facility] LABORATORYCLIA [id number] [address] Basophils/100 WBC (Bld) 0.4 % Normal [facility] Comment on above: Order Comment: Farzana chairez Type: BLOOD SPECIMENOrdering Facility: [facility] Address: [address] [address] Performed By: #### 5 7021-8 ####[facility] LABORATORYCLIA [id number] [address] Differential cell count method Nom (Bld) Auto Normal [place] Comment on above: Order Comment: Speci men Type: BLOOD SPECIMENOrdering Facility: [facility] Address: [address] [address] Performed By: #### 5 7021-8 ####[facility] LABORATORYCLIA [id number] [address] Eosinophils (Bld) [#/Vol] 0.06 10*3/uL Normal <0.46 [place] Comment on above: Order Comment: Speci men Type: BLOOD SPECIMENOrdering Facility: [facility] Address: [address] [place] [address] Performed By: #### 5 7021-8 ####[facility] LABORATORYCLIA [id number] [address] Eosinophils/100 WBC (Bld) 0.6 % Normal [place] Comment on above: Order Comment: Speci men Type: BLOOD SPECIMENOrdering Facility: [facility] Address: [address] [place] [address] Performed By: #### 5 7021-8 ####[facility] LABORATORYCLIA [id number] [address] Erythrocyte distribution width (RBC) [Ratio] 12.8 % Normal 11.5-15.0 [place] Comment on above: Order Comment: Speci men Type: BLOOD SPECIMENOrdering Facility: [facility] Address: [address] [place] [address] Performed By: #### 5 7021-8 ####[facility] LABORATORYCLIA [id number] [address] Hematocrit (Bld) [Volume fraction] 38.4 % Normal 36.0-46.0 [place] Comment on above: Order Comment: Speci men Type: BLOOD SPECIMENOrdering Facility: [facility] Address: [address] [place] [address] Performed By: #### 5 7021-8 ####[facility] LABORATORYCLIA [id number] [address] Hemoglobin (Bld) [Mass/Vol] 12.9 g/dL Normal 11.5-15.5 [place] Comment on above: Order Comment: Speci men Type: BLOOD SPECIMENOrdering Facility: [facility] Address: [address] [place] [address] Performed By: #### 5 7021-8 ####[facility] LABORATORYCLIA [id number] [address] Immature granulocytes (Bld) [#/Vol] 0.03 10*3/uL Normal <0.10 [place] Comment on above: Order Comment: Speci men Type: BLOOD SPECIMENOrdering Facility: [facility] Address: [address] [place] [address] Performed By: #### 5 7021-8 ####[facility] LABORATORYCLIA [id number] [address] Immature granulocytes/100 WBC (Bld) 0.3 % Normal [place] Comment on above: Order Comment: Speci men Type: BLOOD SPECIMENOrdering Facility: [facility] Address: [address] [place] [address] Performed By: #### 5 7021-8 ####[facility] LABORATORYCLIA [id number] [address] Lymphocytes (Bld) [#/Vol] 1.42 10*3/uL Normal 1.00-4.00 [place] Comment on above: Order Comment: Speci men Type: BLOOD SPECIMENOrdering Facility: [facility] Address: [address] [place] [address] Performed By: #### 5 7021-8 ####[facility] LABORATORYCLIA [id number] [address] Lymphocytes/100 WBC (Bld) 13.8 % Normal [place] Comment on above: Order Comment: Speci men Type: BLOOD SPECIMENOrdering Facility: [facility] Address: [address] [place] [address] Performed By: #### 5 7021-8 ####[facility] LABORATORYCLIA [id number] [address] MCH (RBC) [Entitic mass] 30.0 pg Normal 26.0-34.0 [place] Comment on above: Order Comment: Speci men Type: BLOOD SPECIMENOrdering Facility: [facility] Address: [address] [place] [address] Performed By: #### 5 7021-8 ####[facility] LABORATORYCLIA [id number] [address] MCHC (RBC) [Mass/Vol] 33.6 g/dL Normal 30.5-36.0 [facility] Comment on above: Order Comment: Speci men Type: BLOOD SPECIMENOrdering Facility: [facility] Address: [address] [place] [address] Performed By: #### 5 7021-8 ####[facility] LABORATORYCLIA [id number] [address] MCV (RBC) [Entitic vol] 89.3 fL Normal 80.0-100.0 [facility] Comment on above: Order Comment: Speci men Type: BLOOD SPECIMENOrdering Facility: [facility] Address: [address] [place] [address] Performed By: #### 5 7021-8 ####[facility] LABORATORYCLIA [id number] [address] Monocytes (Bld) [#/Vol] 0.78 10*3/uL Normal <0.87 [place] Comment on above: Order Comment: Speci men Type: BLOOD SPECIMENOrdering Facility: [facility] Address: [address] [place] [address] Performed By: #### 5 7021-8 ####[facility] LABORATORYCLIA [id number] [address] Monocytes/100 WBC (Bld) 7.6 % Normal [facility] Comment on above: Order Comment: Speci men Type: BLOOD SPECIMENOrdering Facility: [facility] Address: [address] [place] [address] Performed By: #### 5 7021-8 ####[facility] LABORATORYCLIA [id number] [address] Neutrophils (Bld) [#/Vol] 7.95 10*3/uL High 1.45-7.50 [place] Comment on above: Order Comment: Speci men Type: BLOOD SPECIMENOrdering Facility: [facility] Address: [address] [place] [address] Performed By: #### 5 7021-8 ####CURRY LABORATORYCLIA [id number] [address] Neutrophils/100 WBC (Bld) 77.3 % Normal [place] Comment on above: Order Comment: Speci men Type: BLOOD SPECIMENOrdering Facility: [facility] Address: [address] [place] [address] Performed By: #### 5 7021-8 ####CURRY LABORATORYCLIA [id number] [address] Nucleated RBC (Bld) [#/Vol] 10*3/uL Normal <0.01 [place] Comment on above: Order Comment: Speci men Type: BLOOD SPECIMENOrdering Facility: [facility] Address: [address] [place] [address] Performed By: #### 5 7021-8 ####CUR[facility] LABORATORYCLIA [id number] [address] Nucleated RBC/100 WBC (Bld) [Ratio] 0.0 /100 WBC Normal [place] Comment on above: Order Comment: Speci men Type: BLOOD SPECIMENOrdering Facility: [facility] Address: [address] [place] [address] Performed By: #### 5 7021-8 ####CURRY LABORATORYCLIA [id number] [address] Platelet mean volume (Bld) [Entitic vol] 11.6 fL Normal 9.0-12.7 [place] Comment on above: Order Comment: Speci men Type: BLOOD SPECIMENOrdering Facility: [facility] Address: [address] [place] [address] Performed By: #### 5 7021-8 ####CURRY LABORATORYCLIA [id number] [place] [address] [place] Platelets (Bld) [#/Vol] 179 10*3/uL Normal 150-400 [place] Comment on above: Order Comment: Speci men Type: BLOOD SPECIMENOrdering Facility: [facility] Address: [address] [place] [address] Performed By: #### 5 7021-8 ####[facility] LABORATORYCLIA [id number] [place] [address] [place] RBC (Bld) [#/Vol] 4.30 10*6/uL Normal 3.90-5.20 [facility] Comment on above: Order Comment: Speci men Type: BLOOD SPECIMENOrdering Facility: [facility] Address: [address] [place] [address] Performed By: #### 5 7021-8 ####[facility] LABORATORYCLIA [id number] [place] [address] [place] WBC (Bld) [#/Vol] 10.28 10*3/uL Normal 3.70-11.00 [facility] Comment on above: Order Comment: Speci men Type: BLOOD SPECIMENOrdering Facility: [facility] Address: [address] [place] [address] Performed By: #### 5 7021-8 ####[facility] LABORATORYCLIA [id number] [address] OF [place] CT ABD/PEL W IVCONon 023 CT ABD/PEL W IVCON * * *Final Report* * * DATE OF EXAM: Nov 28 2022 5:57PM [facility] 0530 - CT ABD/PEL W IVCON / [...] clinical correlation is needed. Lower thorax: Unremarkable. Business Excellence Leader (topogram) images: No additional findings. IMPRESSION: Postsurgical changes. Small fluid collection within the left lower abdominal anterior wall, infectious process not excluded. Clinical correlation is needed. Meat Carrier: CESAR Transcribe Date/Time: Nov 28 2022 6:11P Dictated by : JESSI WYLIE MD This examination was interpreted and the report reviewed and electronically signed by: JESSI WYLIE MD on Nov 28 2022 6:14PM EST [id number] Normal [place] Comprehensive metabolic 2000 panelon 11-28-2022 Albumin [Mass/Vol] 3.5 g/dL Low 3.9-4.9 [place] Comment on above: Order Comment: Speci men Type: BLOOD SPECIMENOrdering Facility: [facility] Address: [address] [place] [address] Performed By: #### 2 4323-8 ####[facility] LABORATORYCLIA [id number] [place] [address] [place] ALP [Catalytic activity/Vol] 88 U/L Normal 34-123 [place] Comment on above: Order Comment: Speci men Type: BLOOD SPECIMENOrdering Facility: [facility] Address: [address] [address] Performed By: #### 2 4323-8 ####CUR[facility] LABORATORYCLIA [id number] [address] STATES [facility] ALT [Catalytic activity/Vol] 12 U/L Normal 7-38 [place] Comment on above: Order Comment: Speci men Type: BLOOD SPECIMENOrdering Facility: [facility] Address: [address] [place] [address] Performed By: #### 2 4323-8 ####CUR[facility] LABORATORYCLIA [id number] [place] [address] [place] Anion gap [Moles/Vol] 8 mmol/L Low 9-18 [facility] Comment on above: Order Comment: Speci men Type: BLOOD SPECIMENOrdering Facility: [facility] Address: [address] [place] [address] Performed By: #### 2 4323-8 ####CUR[facility] LABORATORYCLIA [id number] [place] [address] [place] AST [Catalytic activity/Vol] 13 U/L Normal 13-35 [place] Comment on above: Order Comment: Speci men Type: BLOOD SPECIMENOrdering Facility: [facility] Address: [address] [place] [address] Performed By: #### 2 4323-8 ####CURRY LABORATORYCLIA [id number] [place] [address] [place] Bilirubin [Mass/Vol] 0.3 mg/dL Normal 0.2-1.3 [facility] Comment on above: Order Comment: Speci men Type: BLOOD SPECIMENOrdering Facility: [facility] Address: [address] [place] [address] Performed By: #### 2 4323-8 ####CUR[facility] LABORATORYCLIA [id number] [address] [place] Calcium [Mass/Vol] 8.7 mg/dL Normal 8.5-10.2 [place] Comment on above: Order Comment: Speci men Type: BLOOD SPECIMENOrdering Facility: [facility] Address: [address] [place] [address] Performed By: #### 2 4323-8 ####CUR[facility] LABORATORYCLIA [id number] [address] [place] Chloride [Moles/Vol] 99 mmol/L Normal 97-105 [facility] Comment on above: Order Comment: Speci men Type: BLOOD SPECIMENOrdering Facility: [facility] Address: [address] [place] [address] Performed By: #### 2 4323-8 ####CUR[facility] LABORATORYCLIA [id number] [place] [address] [place] CO2 [Moles/Vol] 25 mmol/L Normal 22-30 [place] Comment on above: Order Comment: Speci men Type: BLOOD SPECIMENOrdering Facility: [facility] Address: [address] [place] [address] Performed By: #### 2 4323-8 ####CUR[facility] LABORATORYCLIA [id number] [address] [place] Creatinine [Mass/Vol] 0.78 mg/dL Normal 0.58-0.96 [facility] Comment on above: Order Comment: Speci men Type: BLOOD SPECIMENOrdering Facility: [facility] Address: [address] [place] [address] Performed By: #### 2 4323-8 ####CUR[facility] LABORATORYCLIA [id number] [address] ESTIMATED GLOMERULAR FILTRATION RATE 97 mL/min/1.73m??? Normal >=60 [place] Comment on above: Order Comment: Speci men Type: BLOOD SPECIMENOrdering Facility: [facility] Address: [address] [place] [address] Result Comment: Shanel mated Glomerular Filtration Rate [...] actual GFR. Performed By: #### 2 4323-8 ####[facility] LABORATORYCLIA [id number] [place] [address] [place] Glucose [Mass/Vol] 389 mg/dL High 74-99 [place] Comment on above: Order Comment: Farzana chairez Type: BLOOD SPECIMENOrdering Facility: [facility] Address: [address] [place] [address] Result Comment: The [place] [employer] (ADA) provides guidance for cutoff [...] Standards of Medical Care in Diabetes 2016, [place] [employer]. Diabetes Care. 2016.39(Suppl 1). Performed By: #### 2 4323-8 ####[facility] LABORATORYCLIA [id number] [place] [address] [place] Potassium [Moles/Vol] 3.8 mmol/L Normal 3.7-5.1 [facility] Comment on above: Order Comment: Farzana chairez Type: BLOOD SPECIMENOrdering Facility: [facility] Address: [address] [place] [address] Performed By: #### 2 4323-8 ####[facility] LABORATORYCLIA [id number] [place] [id number] [place] Protein [Mass/Vol] 6.6 g/dL Normal 6.3-8.0 [place] Comment on above: Order Comment: Farzana chairez Type: BLOOD SPECIMENOrdering Facility: [facility] Address: [address] [place] [address] Performed By: #### 2 4323-8 ####[facility] LABORATORYCLIA [id number] [place] [address] [place] Sodium [Moles/Vol] 132 mmol/L Low 136-144 [place] Comment on above: Order Comment: Speci men Type: BLOOD SPECIMENOrdering Facility: [facility] Address: [address] [address] Performed By: #### 2 4323-8 ####CUR[facility] LABORATORYCLIA [id number] [address] Urea nitrogen [Mass/Vol] 12 mg/dL Normal 7- [place] Comment on above: Order Comment: Speci men Type: BLOOD SPECIMENOrdering Facility: [facility] Address: [address] [address] Performed By: #### 2 4323-8 ####CUR[facility] LABORATORYCLIA [id number] [address] ED NOTEon 11-28-2022 ED NOTE HNO ID: [id number] Author: Beth Senior RN Service: ? Author Type: Registered Nurse Type: ED Notes Filed: 11/28/2022 7:50 PM Note Text: Discharge instructions d/w pt and at bedside. Stated understanding with no further questions for this nurse. Encouraged f/u with PCP and referring doctors given. Stated understanding. Prescription(S) were given keflex, roxicodone. Advised to finish round of doxycyline. [facility] ED NOTE HNO ID: [id number] Author: Stephy Sweeney RN Service: Nursing Author Type: Registered Nurse Type: ED Notes Filed: 11/28/2022 4:05 PM Note Text: Medic at bedside to obtain PIV and labwork. Normal [place] ED NOTE HNO ID: [id number] Author: Stephy Sweeney RN Service: Nursing Author Type: Registered Nurse Type: ED Notes Filed: 11/28/2022 3:55 PM Note Text: Pt was seen at an express care for a cyst to her right buttocks. Placed on doxycycline. Became larger in size (pt reports half-dollar size then and now baseball size); worsening pain, swelling, and redness. Instructed to come into the ED for worsening symptoms. [facility] ED PROV NOTEon 11-28-2022 ED PROV NOTE HNO ID: [id number] Author: Maria Del Carmen Tsang MD Service: [...] normal. Judgment: (more content not included)... Normal [place] Gas and Carbon monoxide pane l (BldV)on 11-28-2022 BASE DEFICIT, VENOUS >-1 Normal -2-0 [facility] Comment on above: Order Comment: Speci men Type: VENOUS BLOOD SPECIMENOrdering Facility: [facility] Address: [address] [place] [address] Performed By: #### 2 4344-4 ####[facility] RESPIRATORYCLIA [id number] [facility] [id number] [address] [address] Carboxyhemoglobin (BldV) [Mass fraction] 1.0 % Normal 0.0-2.0 [place] Comment on above: Order Comment: Speci men Type: VENOUS BLOOD SPECIMENOrdering Facility: [facility] Address: [address] [place] [address] Result Comment: Carb oxyhemoglobin Reference Range for Smokers: 2.0-8.0% Performed By: #### 2 4344-4 ####[facility] RESPIRATORYIA [id number] [facility] [id number] [address] [address] CO2 (BldV) [Partial pressure] 45 mm[Hg] Normal 42-55 [place] Comment on above: Order Comment: Speci men Type: VENOUS BLOOD SPECIMENOrdering Facility: [facility] Address: [address] [address] Performed By: #### 2 4344-4 ####[facility] RESPIRATORYIA [id number] [facility]OS[facility]AT[facility] [id number] [address] [address] CO2 adjusted to patient's actual temperature (BldV) [Partial pressure] Normal [place] Comment on above: Order Comment: Speci men Type: VENOUS BLOOD SPECIMENOrdering Facility: [facility] Address: [address] [place] [address] Performed By: #### 2 4344-4 ####[facility] RESPIRATORYIA [id number] [facility]OSP[facility] [id number] [address] [address] HCO3 (Bld) [Moles/Vol] 25 mmol/L Normal 24-28 [facility] Comment on above: Order Comment: Speci men Type: VENOUS BLOOD SPECIMENOrdering Facility: [facility] Address: [address] [place] [address] Performed By: #### 2 4344-4 ####[facility] RESPIRATORYCLIA [id number] [facility] [id number] [address] [address] Hemoglobin (Bld) [Mass/Vol] 13.4 g/dL Normal 11.5-15.5 [place] Comment on above: Order Comment: Speci men Type: VENOUS BLOOD SPECIMENOrdering Facility: [facility] Address: [address] [place] [place] [address] Performed By: #### 2 4344-4 ####[facility] RESPIRATORYBRATTLEBORO [facility] [id number] [facility]PIRAT[facility] [id number] [address] [address] Lactate [Moles/Vol] 2.0 mmol/L Normal 0.5-2.2 [facility] Comment on above: Order Comment: Speci men Type: VENOUS BLOOD SPECIMENOrdering Facility: [facility] Address: [address] [place] [address] Performed By: #### 2 4344-4 ####[facility] RESPIRATORYBRATTLEBORO [facility] [id number] [facility]OS[facility] RESPIRATORY [id number] [address] [address] Methemoglobin (Bld) [Mass fraction] 1.0 % Normal 0.0-1.5 [place] Comment on above: Order Comment: Speci men Type: VENOUS BLOOD SPECIMENOrdering Facility: [facility] Address: [address] [place] [address] Performed By: #### 2 4344-4 ####[place] [facility]PIRATORYBRATTLEBORO [facility] [id number] [facility] RESPIRAT[facility] [id number] [address] O2 THERAPY RA=Room Air Normal [place] Comment on above: Order Comment: Speci men Type: VENOUS BLOOD SPECIMENOrdering Facility: [facility] Address: [address] Performed By: #### 2 4344-4 ####[facility] RESPIRATORYCLIA [id number] [facility]OS[facility] RESPIRAT[facility] [id number] [address] [address] Oxygen (BldV) [Partial pressure] mm[Hg] Low 35-45 [place] Comment on above: Order Comment: Speci men Type: VENOUS BLOOD SPECIMENOrdering Facility: [facility] Address: [address] [address] Performed By: #### 2 4344-4 ####[facility] RESPIRATORYCLIA [id number] [facility]OS[facility] RESPIRAT[facility] [id number] [address] [address] Oxygen adjusted to patient's actual temperature (BldV) [Partial pressure] Normal [place] Comment on above: Order Comment: Speci men Type: VENOUS BLOOD SPECIMENOrdering Facility: [facility] Address: [address] [place] [address] Performed By: #### 2 4344-4 ####[facility] RESPIRATORYCLIA [id number] [facility] RESPIRAT[facility] [id number] [address] [address] Oxyhemoglobin (BldV) [Mass fraction] 45 % Low 60-85 [place] Comment on above: Order Comment: Speci men Type: VENOUS BLOOD SPECIMENOrdering Facility: [facility] Address: [address] [address] Performed By: #### 2 4344-4 ####[facility] RESPIRATORYCLIA [id number] [facility]OSP[facility] RESPIRATORY [id number] [address] [address] pH (BldV) 7.36 [pH] Normal 7.32-7.42 [place] Comment on above: Order Comment: Speci men Type: VENOUS BLOOD SPECIMENOrdering Facility: [facility] Address: [address] Performed By: #### 2 4344-4 ####[facility] RESPIRATORYCLIA [id number] [facility] RESPIRAT[facility] [id number] [address] [address] pH adjusted to patient's actual temperature (BldV) Normal [place] Comment on above: Order Comment: Speci men Type: VENOUS BLOOD SPECIMENOrdering Facility: [facility] Address: [address] [address] Performed By: #### 2 4344-4 ####[facility] RESPIRATORYCLIA [id number] [facility]OS[facility] RES[facility] [id number] [address] [address] Potassium [Moles/Vol] 3.7 mmol/L Normal 3.5-5.0 [facility] Comment on above: Order Comment: Speci men Type: VENOUS BLOOD SPECIMENOrdering Facility: [facility] Address: [address] [address] Performed By: #### 2 4344-4 ####[place] RESPIRATORYCLIA [id number] [facility]OS[facility] [id number] [place] [address] HCG QUAL BLDon 11-28-2022 HCG, QUALITATIVE Negative Normal Negative [place] Comment on above: Order Comment: Speci men Type: BLOOD SPECIMENOrdering Facility: [facility] Address: [address] [address] Performed By: #### H CG ####[facility] LABORATORYCLIA [id number] [address] OF [facility] PT panel Coag (PPP)on 2022 INR Coag (PPP) [Relative time] 1.0 {INR} Normal 0.9-1.3 [place] Comment on above: Order Comment: Speci men Type: BLOOD SPECIMENOrdering Facility: [facility] Address: [address] [place] [address] Result Comment: Kelli min K Antagonist (VKA) Therapeutic Range: INR 2 to 3 (Target INR of 2.5) Note: For patients treated with VKA drugs, such as warfarin, the [place] [employer] 2012 Guideline recommends [...] GH, et al. Chest 2012, 141:7S-47S Aravind MARCUS et al. [facility] 2017, 70: 252-289 Performed By: #### 1 4979-9, 78407-1 ####[facility] LABORATORYCLIA [id number] [address] PT Coag (PPP) [Time] 9.8 s Normal 9.7-13.0 [facility] Comment on above: Order Comment: Speci men Type: BLOOD SPECIMENOrdering Facility: [facility] Address: [address] [place] [address] Performed By: #### 1 4979-9, 87111-7 ####[facility] LABORATORYCLIA [id number] [address] Urinalysis complete panel (U )on 11-28-2022 Bacteria LM.HPF (Urine sed) [#/Area] Few Abnormal None Seen [place] Comment on above: Order Comment: Speci men Type: URINE SPECIMENOrdering Facility: [facility] Address: [address] [place] [address] Performed By: #### 2 4356-8 ####[facility] LABORATORYCLIA [id number] [address] Bilirubin Ql (U) Negative Normal Negative [place] Comment on above: Order Comment: Speci men Type: URINE SPECIMENOrdering Facility: [facility] Address: [address] [place] [address] Performed By: #### 2 4356-8 ####[facility] LABORATORYCLIA [id number] [address] Clarity (Unsp spec) Clear Normal Clear [facility] Comment on above: Order Comment: Speci men Type: URINE SPECIMENOrdering Facility: [facility] Address: [address] [place] [address] Performed By: #### 2 4356-8 ####[facility] LABORATORYCLIA [id number] [place] [address] [place] Color (U) Yellow Normal Yellow [place] Comment on above: Order Comment: Speci men Type: URINE SPECIMENOrdering Facility: [facility] Address: [address] [place] [address] Performed By: #### 2 4356-8 ####[facility] LABORATORYCLIA [id number] [place] [address] [place] Epithelial cells LM.HPF (Urine sed) [#/Area] Few Normal [place] Comment on above: Order Comment: Speci men Type: URINE SPECIMENOrdering Facility: [facility] Address: [address] [place] [address] Performed By: #### 2 4356-8 ####[facility] LABORATORYCLIA [id number] [address] Glucose Test strip (U) [Mass/Vol] 3+ Abnormal Negative [place] Comment on above: Order Comment: Speci men Type: URINE SPECIMENOrdering Facility: [facility] Address: [address] [place] [address] Performed By: #### 2 4356-8 ####[facility] LABORATORYCLIA [id number] [place] [address] [place] Hemoglobin Ql (U) Trace Normal Negative, Trace [place] Comment on above: Order Comment: Speci men Type: URINE SPECIMENOrdering Facility: [facility] Address: [address] [place] [address] Performed By: #### 2 4356-8 ####[facility] LABORATORYCLIA [id number] [address] [place] Ketones Ql (U) Negative Normal Negative [place] Comment on above: Order Comment: Speci men Type: URINE SPECIMENOrdering Facility: [facility] Address: [address] [place] [address] Performed By: #### 2 4356-8 ####[facility] LABORATORYCLIA [id number] [address] [place] Leukocyte esterase Test strip Ql (U) Negative Normal Negative [place] Comment on above: Order Comment: Speci men Type: URINE SPECIMENOrdering Facility: [facility] Address: [address] [place] [address] Performed By: #### 2 4356-8 ####[facility] LABORATORYCLIA [id number] [address] [place] Nitrite Ql (U) Negative Normal Negative [place] Comment on above: Order Comment: Speci men Type: URINE SPECIMENOrdering Facility: [facility] Address: [address] [place] [address] Performed By: #### 2 4356-8 ####[facility] LABORATORYCLIA [id number] [address] pH (U) 6.5 [pH] Normal 5.0-8.0 [place] Comment on above: Order Comment: Speci men Type: URINE SPECIMENOrdering Facility: [facility] Address: [address] [place] [address] Performed By: #### 2 4356-8 ####[facility] LABORATORYCLIA [id number] [address] STATES [facility] Protein (U) [Mass/Vol] Negative Normal Negative [facility] Comment on above: Order Comment: Speci men Type: URINE SPECIMENOrdering Facility: [facility] Address: [address] [place] [address] Performed By: #### 2 4356-8 ####[facility] LABORATORYCLIA [id number] [place] [address] [place] RBC LM.HPF (Urine sed) [#/Area] 0-3 /HPF Normal 0-3 /HPF [place] Comment on above: Order Comment: Speci men Type: URINE SPECIMENOrdering Facility: [facility] Address: [address] [place] [address] Performed By: #### 2 4356-8 ####[facility] LABORATORYCLIA [id number] [place] [address] [place] Specific gravity (U) [Rel density] <=1.005 Low 1.005-1.030 [place] Comment on above: Order Comment: Speci men Type: URINE SPECIMENOrdering Facility: [facility] Address: [address] [place] [address] Performed By: #### 2 4356-8 ####[facility] LABORATORYCLIA [id number] [address] STATES [facility] Urobilinogen Ql (U) 0.2 EU/dL Normal 0.2-1.0 EU/dL [place] Comment on above: Order Comment: Speci men Type: URINE SPECIMENOrdering Facility: [facility] Address: [address] [place] [address] Performed By: #### 2 4356-8 ####[facility] LABORATORYCLIA [id number] [place] [address] [place] WBC LM.HPF (Urine sed) [#/Area] 0-5 /HPF Normal 0-5 /HPF [place] Comment on above: Order Comment: Speci men Type: URINE SPECIMENOrdering Facility: [facility] Address: [address] [place] [address] Performed By: #### 2 4356-8 ####[facility] LABORATORYCLIA [id number] [address] [place] aPTT PPPon 11-28-2022 aPTT Coag (PPP) [Time] 26.0 s Normal 23.0-32.4 [facility] Comment on above: Order Comment: Speci men Type: BLOOD SPECIMENOrdering Facility: [facility] Address: [address] [place] [address] Performed By: #### 1 4979-9, 00417-6 ####[facility]ORATORYCLIA [id number] [place] [address] [place] UA DIP, URINE (POC)on 2021 BILIRUBIN UA (POCT) Negative Negative [facility] UA (POCT) Cloudy [facility] COLOR UA (POCT) Yellow [facility] GLUCOSE UA (POCT) 500 mg/dL Abnormal Negative mg/dL [facility] HEMOGLOBIN/BLOOD UA (POCT) Negative Negative [facility] KETONE UA (POCT) Negative Negative mg/dL [facility] LEUKOCYTES UA (POCT) Trace Abnormal Negative [facility] NITRITE UA (POCT) Negative Negative [facility] PH UA (POCT) 6.0 4.5 - 8.0 [facility] Protein Ql (U) Negative Negative mg/dL [facility] SPECIFIC GRAVITY UA (POCT) 1.020 1.005 - 1.030 [facility] UROBILINOGEN UA (POCT) 0.2 E.U./dL [place]up[place] l E.U./dL [facility] UA DIP, URINE (POC)on 2021 BILIRUBIN UA (POCT) Negative Negative [facility] CLARITY UA (POCT) Cloudy [facility] COLOR UA (POCT) Yellow [facility] GLUCOSE UA (POCT) >=1000 Abnormal Negative mg/dL [facility] HEMOGLOBIN/BLOOD UA (POCT) Small Abnormal Negative [facility] KETONE UA (POCT) Negative Negative mg/dL [facility] LEUKOCYTES UA (POCT) Moderate Abnormal Negative [facility] NITRITE UA (POCT) Positive Abnormal Negative [facility] PH UA (POCT) 5.5 4.5 - 8.0 [facility] Protein Ql (U) 30 mg/dL Abnormal Negative mg/dL [facility] SPECIFIC GRAVITY UA (POCT) 1.015 1.005 - 1.030 [facility] UROBILINOGEN UA (POCT) 0.2 E.U./dL [place]upama l E.U./dL [facility] Absolute lymphocyte counton 06-13-2022 Lymphocytes Auto (Unsp spec) [#/Vol] 1.72 10*3/uL 0.83-4.51 [facility] Work Phone: Basophil percentageon 2021 Basophil percentage >100 SEEN /hpf 0-5 [facility] Work Phone: Basophils/100 WBC (Bld) 0.5 % 0-1 [facility] Work Phone: Bilirubin [Mass/Vol] 0.50 mg/dL 0.20-1.00 [facility] Work Phone: Comment on above: For patients on eltr ombopag therapy, use of Dimension [place] TBIL is not recommended. Chloride [Moles/Vol] 107 mmol/L 98-107 [facility] Work Phone: Eosinophils/100 WBC (Bld) 2.6 % 0-5 [facility] Work Phone: Glucose [Mass/Vol] 188 mg/dL 74-106 [facility] Work Phone: Comment on above: Fasting Glucose resu lt greater than or equal to 126 mg/dL suggests DIABETES MELLITUS per A.D.A. criteria. Neutrophils (Bld) [#/Vol] 7.5 10*3/uL 2.0-7.7 [facility] Work Phone: Neutrophils/100 WBC (Bld) 73.4 % 47-70 [facility] Work Phone: Potassium [Moles/Vol] 3.8 mmol/L 3.5-5.[address] [facility] Work Phone: Protein [Mass/Vol] 7.2 g/dL 6.4-8.2 [facility] Work Phone: Sodium [Moles/Vol] 139 mmol/L 136-145 [facility] Work Phone: WBC (Bld) [#/Vol] 10.1 10*3/uL 4.4-11.0 [facility] Work Phone: Bilirubin Test strip Ql (U)o n 06-13-2022 Bilirubin Ql (U) Negative Negative [facility] Work Phone: Blood erythrocytes count (nu mber/volume)on 06-13-2022 RBC (Bld) [#/Vol] 4.03 10*6/uL 4.2-5.4 [facility] Work Phone: Blood hemoglobin measurement (mass/volume)on 06-13-2022 Hemoglobin (Bld) [Mass/Vol] 12.2 g/dL 12.0-15.0 [facility] Work Phone: Blood lymphocytes/100 leukoc yteson 06-13-2022 Lymphocytes/100 WBC (Bld) 17.0 % 19-41 [facility] Work Phone: Blood monocytes/100 leukocyt eson 06-13-2022 Monocytes/100 WBC (Bld) 6.0 % 0-10 [facility] Work Phone: Blood platelet mean volumeon 06-13-2022 Platelet mean volume (Bld) [Entitic vol] 11.0 fL 6.2-12.0 [facility] Work Phone: Determination of erythrocyte mean corpuscular volume (MCV)on 06-13-2022 MCV (RBC) [Entitic vol] 88.6 fL 81-99 [facility] Work Phone: Hematocrit Auto (Bld) [Volum e fraction]on 06-13-2022 Hematocrit (Bld) [Volume fraction] 35.7 % 37-47 [facility] Work Phone: INR in Blood by Coagulation assayon 06-13-2022 INR Coag (Bld) [Relative time] 0.9 {INR} [facility] Work Phone: Ketones Test strip Ql (U)on 06-13-2022 Ketones Ql (U) Negative Negative [facility] Work Phone: [phone] Laboratory - Chemistry and C hemistry - challengeon 06-13-2022 ALP [Catalytic activity/Vol] 81 U/L 45-117 [facility] Work Phone: ALT [Catalytic activity/Vol] 23 U/L 13-56 [facility] Work Phone: CO2 [Moles/Vol] 26.0 mmol/L 21.0-32.0 [facility] Work Phone: [phone] Globulin (S) [Mass/Vol] 3.9 g/dL 2.2-4.2 [facility] Work Phone: Lipase [Catalytic activity/Vol] 65 U/L 73-393 [facility] Work Phone: Urea nitrogen/Creatinine [Mass ratio] 21.8 mg/mg 10-20 [facility] Work Phone: [phone] Laboratory - Coagulationon 0 06-13-2022 PT Coag (PPP) [Time] 12.1 s 11.7-14.9 [facility] Work Phone: [phone] Laboratory - Hematology and Cell countson 06-13-2022 Erythrocyte distribution width (RBC) [Entitic vol] 40.6 fL 35.1-43.9 [facility] Work Phone: [phone] Erythrocyte distribution width (RBC) [Ratio] 12.4 % 11.6-14.6 [facility] Work Phone: [phone] Immature granulocytes/100 WBC (Bld) 0.500 % 0.0-0.9 [facility] Work Phone: [phone] Comment on above: IG% - Immature Granu locytes (promyelocytes, myelocytes and metamyelocytes) > 1% indicates that a LEFT SHIFT is Present. MCH (RBC) [Entitic mass] 30.3 pg 27.0-32.0 [facility] Work Phone: [phone] Nucleated RBC/100 WBC (Bld) [Ratio] 0 % 0-5 [facility] Work Phone: [phone] MCHC Auto (RBC) [Mass/Vol]on 06-13-2022 MCHC (RBC) [Mass/Vol] 34.2 g/dL 32-[address] [facility] Work Phone: [phone] Mucus LM Ql (Urine sed)on Mucus Ql (Urine sed) 0 SEEN /hpf [facility] Work Phone: [phone] Nitrite Test strip Ql (U)on 06-13-2022 Nitrite Ql (U) Positive Negative [facility] Work Phone: [phone] No Panel Informationon 06-13 Estimated Creatinine Clearance Calc 91.08 ml/min [facility] Work Phone: [phone] Estimated GFR (MDRD) Amer 98 mL/min >60 [facility] Work Phone: [phone] Comment on above: GFR Calc Estimated GFR (MDRD) Non-Af Amer 81 mL/min >60 [facility] Work Phone: Comment on above: Non- GFR Calc Platelets bldon 06-13-2022 Platelets (Bld) [#/Vol] 229 10*3/uL 150-450 [facility] Work Phone: Protein Test strip Ql (U)on 06-13-2022 Protein Ql (U) 30 mg/dl Negative [facility] Work Phone: Serum or plasma albumin boogie urement (mass/volume)on 06-13-2022 Albumin [Mass/Vol] 3.3 g/dL 3.2-5.0 [facility] Work Phone: Serum or plasma albumin/glob ulin mass ratioon 06-13-2022 Albumin/Globulin [Mass ratio] 0.8 {ratio} 0.9-2.4 [facility] Work Phone: Serum or plasma calcium boogie urement (mass/volume)on 06-13-2022 Calcium [Mass/Vol] 8.8 mg/dL 8.5-10.1 [facility] Work Phone: Serum or plasma creatinine m easurement (mass/volume)on 06-13-2022 Creatinine [Mass/Vol] 0.82 mg/dL 0.55-1.[address] [facility] Work Phone: Comment on above: The validity of the calculated GFR & GFRAA in patients over 70 years has not been determined. Clinical correlation is essential. Serum or plasma urea nitroge n measurement (mass/volume)on 06-13-2022 Urea nitrogen [Mass/Vol] 18 mg/dL 7-18 [facility] Work Phone: [phone] Squamous epithelial cells de tection in urine sediment by light microscopyon 06-13-2022 Epithelial cells.squamous LM Ql (Urine sed) 0-5 SEEN /hpf 5-10 [facility] Work Phone: Thin prep Papanicolaou smear with manual screeningon 06-13-2022 Thin prep Papanicolaou smear with manual screening 11 U/L 15-37 [facility] Work Phone: Thin prep Papanicolaou smear with manual screening 6 5-15 [facility] Work Phone: Urine blood detectionon RBC Ql (U) 250 /ul Negative [facility] Work Phone: RBC Ql (U) 0 SEEN /hpf 0-5 [facility] Work Phone: Urine clarityon 06-13-2022 Clarity (U) Clear Clear [facility] Work Phone: Urine color determinationon 06-13-2022 Color (U) Yellow Yellow [facility] Work Phone: Urine glucose detectionon Glucose Ql (U) Normal mg/dl Normal [facility] Work Phone: Urine leukocyte esterase det ection by dipstickon 06-13-2022 Leukocyte esterase Test strip Ql (U) 500 /ul Negative [facility] Work Phone: Urine pHon 06-13-2022 pH (U) 6.0 [pH] 5.0 - 8.0 [facility] Work Phone: Urine sediment bacteria coun t by microscopy (number/high power field)on 06-13-2022 Bacteria LM.HPF (Urine sed) [#/Area] 1 /[HPF] None Seen [facility] Work Phone: Urine specific gravity measu rementon 06-13-2022 Specific gravity (U) [Rel density] 1.010 1.002-1.030 [facility] Work Phone: Urobilinogen Auto test strip Ql (U)on 06-13-2022 Urobilinogen Ql (U) Normal mg/dl Normal [facility] Work Phone: GLUCOSE POCon 05-21-2022 Glucose [Mass/Vol] 122 mg/dL High 70 - 99 [facility] Glucose [Mass/Vol] 159 mg/dL High 70 - 99 mg/dL [facility] Comment on above: Notified RNread back Glucose [Mass/Vol] 148 mg/dL High 70 - 99 mg/dL [facility] Interpretation and review of laboratory results Abnormal [facility] POC Sample Type VENO [facility] Test performed at address of the patient encounter. [facility] HCG ( test) Ql (U)O rdered By: Eder Greene on 05-21-2022 Beta HCG ( test) Ql Negative Negative [facility] Interpretation and review of laboratory results Normal [facility] HCG QUALITATIVE, URINEon Beta HCG ( test) Ql (U) Negative Normal Negative [facility] Comment on above: Performed By: #### U HCG #### [facility] (DEFAULT) [address] [place] [address] No Panel Informationon 05-21 Interpretation and review of laboratory results Abnormal [facility] POC Sample Type CAPBL [facility] Test performed at address of the patient encounter. [facility] US Unspecified body region d uring surgeryOrdered By: Unassigned Pacs on 05-21-2022 [facility] Work Phone: US Unspecified body region d uring surgeryon 05-21-2022 Radiology Study observation (narrative) [facility] MRI LIVER WO/W IVCONon 05-07 [facility] CBC W Auto Differential pane l (Bld)on 04-22-2022 Abs Immature Gran 0.03 k/uL <0.10 k/uL [facility] Basophils (Bld) [#/Vol] 0.05 10*3/uL <0.11 k/uL [facility] Basophils/100 WBC (Bld) 0.6 % [facility] Differential cell count method Nom (Bld) Auto [facility] Eosinophils (Bld) [#/Vol] 0.13 10*3/uL <0.46 k/uL [facility] Eosinophils/100 WBC (Bld) 1.6 % [facility] Erythrocyte distribution width (RBC) [Ratio] 13.2 % 11.5 - 15.0 % [facility] Hematocrit (Bld) [Volume fraction] 44.0 % 36.0 - 46.0 % [facility] Hemoglobin (Bld) [Mass/Vol] 13.0 g/dL 11.5 - 15.5 g/dL [facility] Immature Gran % 0.4 % [facility] Lymphocytes (Bld) [#/Vol] 2.18 10*3/uL 1.00 - 4.00 k/uL [facility] Lymphocytes/100 WBC (Bld) 26.9 % [facility] MCH (RBC) [Entitic mass] 29.1 pg 26.0 - 34.0 pg [facility] MCHC (RBC) [Mass/Vol] 29.5 g/dL Low 30.5 - 36.0 g/dL [facility] MCV (RBC) [Entitic vol] 98.4 fL 80.0 - 100.0 fL [facility] Monocytes (Bld) [#/Vol] 0.42 10*3/uL <0.87 k/uL [facility] Monocytes/100 WBC (Bld) 5.2 % [facility] Neutrophils (Bld) [#/Vol] 5.30 10*3/uL 1.45 - 7.50 k/uL [facility] Neutrophils/100 WBC (Bld) 65.3 % [facility] Nucleated RBC (Bld) [#/Vol] 10*3/uL <0.01 k/uL [facility] Nucleated RBC/100 WBC (Bld) [Ratio] 0.0 /100 WBC [facility] Platelet mean volume (Bld) [Entitic vol] 12.0 fL 9.0 - 12.7 fL [facility] Platelets (Bld) [#/Vol] 214 10*3/uL 150 - 400 k/uL [facility] RBC (Bld) [#/Vol] 4.47 10*6/uL 3.90 - 5.2 0 m/uL [facility] WBC (Bld) [#/Vol] 8.11 10*3/uL 3.70 - 11.00 k/uL [facility] Comprehensive metabolic 2000 panelon 04-22-2022 Albumin [Mass/Vol] 3.9 g/dL 3.9 - 4.9 g/dL [facility] ALP [Catalytic activity/Vol] 90 U/L 34 - 123 U/L [facility] ALT [Catalytic activity/Vol] 25 U/L 7 - 38 U/L [facility] Anion gap [Moles/Vol] 17 mmol/L 9 - 18 mmol/L [facility] AST [Catalytic activity/Vol] 19 U/L 13 - 35 U/L [facility] Bilirubin [Mass/Vol] 0.2 mg/dL 0.2 - 1 .3 mg/dL [facility] Calcium [Mass/Vol] 9.4 mg/dL 8.5 - 10. 2 mg/dL [facility] Chloride [Moles/Vol] 105 mmol/L 97 - 10 5 mmol/L [facility] CO2 [Moles/Vol] 22 mmol/L 22 - 30 mmol/L [facility] Creatinine [Mass/Vol] 0.71 mg/dL 0.58 - 0.96 mg/dL [facility] Estimated Glomerular Filtration Rate 110 mL/min/1.73m >=60 mL/min/1.73 m [facility] Glucose [Mass/Vol] 151 mg/dL High 74 - 99 mg/dL [facility] Potassium [Moles/Vol] 4.1 mmol/L 3.7 - 5.1 mmol/L [facility] Protein [Mass/Vol] 6.6 g/dL 6.3 - 8.0 g/dL [facility] Sodium [Moles/Vol] 144 mmol/L 136 - 144 mmol/L [facility] Urea nitrogen [Mass/Vol] 18 mg/dL 7 - 21 mg/dL [facility] CT ABDOMEN/PELVIS WITHOUT CO NTRASTon 03-17-2022 [...] error, please notify the sender immediately at [phone] and permanently delete the original report and destroy any copies or printouts. Normal [facility] CT Abdomen and Pelvis WO con [...] error, please notify the sender immediately at [phone] and permanently delete the original report and [...] error, please notify the sender immediately at [phone] and permanently delete the original report and destroy any copies or printouts. 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 This test was developed and its performance characteristics determined by [facility]'s [facility] [place]. This test has been authorized by FDA under an Emergency Use Authorization (EUA). This test has been validated in accordance with the FDA's Guidance Document Policy for Diagnostics Testing in Laboratories Certified to Perform High Complexity Testing under CLIA prior to Emergency use Authorization for Coronavirus Disease 2019 during the Public Health Emergency issued on January 05, 2020. [facility] [employer] [address] [place] [address] Rohan Morales III, M.D. 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 [facility] Comment on above: Result Comment: Nega tive for This test was developed and its performance characteristics determined by [facility]'s [facility] [place]. This test has been authorized by FDA [...] developed and its performance characteristics determined by [facility] [place]. This test has been authorized by FDA [...] and its performance characteristics determined by [facility] [place]. This test has been authorized by FDA [...] 2020. Coronavirus 2019on 0 COVID 19 Source EXPERIMENTAL MACHINIST Normal [facility] Comment on above: Result Comment: Naso pharyngeal Corrected on 10/25 AT 1338: Previously reported as EXPERIMENTAL MACHINIST Swab Corrected on 10/25 AT 1338: Previously reported as EXPERIMENTAL MACHINIST Vital Signs Date Time Vital Sign Value Performing Clinician Facility 08-15-2025 10:58-0400 Body temperature 98.4 [degF] Dr. Joaquin Huitron MD Work Phone: [phone] [place] [address] 08-15-2025 10:58-0400 Diastolic blood pressure 76 mm[Hg] Dr. Joaquin Huitron MD Work Phone: [phone] [address] [place] [address] 08-15-2025 10:58-0400 Heart rate 95 /min Dr. Joaquin Huitron MD Work Phone: [phone] [place] [address] 08-15-2025 10:58-0400 Respiratory rate 20 /min Dr. Joaquin Huitron MD Work Phone: [phone] [place] [address] 08-15-2025 10:58-0400 SaO2% (BldA) [Mass fraction] 100 % Dr. Joaquin Huitron MD Work Phone: [phone] [place] [address] 08-15-2025 10:58-0400 Systolic blood pressure 143 mm[Hg] Dr. Joaquin Huitron MD Work Phone: [phone] [address] [place] [address] 08-15-2025 10:52-0400 Body height 172.[address] Joaquin Huitron MD Work Phone: [phone] [place] [address] 08-15-2025 10:52-0400 Body weight 105.[address] Joaquin Huitron MD Work Phone: [phone] [place] [address] 08-12-2025 09:24-0400 Body temperature 98.4 [degF] Dr. Joaquin Huitron MD Work Phone: [phone] [address] [place] [address] 08-12-2025 09:24-0400 Diastolic blood pressure 89 mm[Hg] Dr. Joaquin Huitron MD Work Phone: [phone] [address] [place] [address] 08-12-2025 09:24-0400 Heart rate 106 /min Dr. Joaquin Huitron MD Work Phone: [phone] [place] [address] 08-12-2025 09:24-0400 Respiratory rate 18 /min Dr. Joaquin Huitron MD Work Phone: [phone] [address] [place] [address] 08-12-2025 09:24-0400 SaO2% (BldA) [Mass fraction] 99 % Dr. Joaquin Huitron MD Work Phone: [phone] [place] [address] 08-12-2025 09:24-0400 Systolic blood pressure 155 mm[Hg] Dr. Joaquin Huitron MD Work Phone: [phone] [place] [address] 08-11-2025 19:16-0400 Body height 172.[address] Joaquin Huitron MD Work Phone: [phone] [place] [address] 08-11-2025 19:16-0400 Body mass index (BMI) [Ratio] 35.4 kg/m2 Dr. Joaquin Huitron MD Work Phone: [phone] [place] [address] 08-11-2025 19:16-0400 Body weight 105.[address] Joaquin Huitron MD Work Phone: [phone] [place] [address] 10-22-2024 07:44-0500 Diastolic blood pressure 85 mm[Hg] Jean Claude Huitron MD Work Phone: [facility] Comment on above: jacob bp average 10-22-2024 07:44-0500 Systolic blood pressure 141 mm[Hg] Jean Claude Huitron MD Work Phone: [facility] Comment on above: jacob bp average 10-22-2024 07:31-0500 Body height 172.7 cm Jean Claude Huitron MD Work Phone: [facility] 10-22-2024 07:31-0500 Body mass index (BMI) [Ratio] 36.34 kg/m2 Jean Claude Huitron MD Work Phone: [facility] 10-22-2024 07:31-0500 Body weight 108.41 kg Jean Claude Huitron MD Work Phone: [facility] 10-22-2024 07:31-0500 Heart rate 94 /min Jean Claude Huitron MD Work Phone: [facility] 10-22-2024 07:31-0500 Respiratory rate 12 /min Jean Claude Huitron MD Work Phone: [facility] 10-22-2024 07:31-0500 SaO2% (BldA) [Mass fraction] 98 % Jean Claude Huitron MD Work Phone: [facility] 09-25-2024 07:24-0500 Body mass index (BMI) [Ratio] 37.07 kg/m2 Irlanda Podlogar DEOILING MACHINE OPERATOR.FIELD MECHANICAL METER TESTER Work Phone: [facility] 09-25-2024 07:24-0500 Body weight 110.6 kg Irlanda Podlogar DEOILING MACHINE OPERATOR.FIELD MECHANICAL METER TESTER Work Phone: [facility] 09-25-2024 07:24-0500 Diastolic blood pressure 88 mm[Hg] Irlanda Podlogar DEOILING MACHINE OPERATOR.FIELD MECHANICAL METER TESTER Work Phone: [facility] 09-25-2024 07:24-0500 Heart rate 82 /min Irlanda Podlogar DEOILING MACHINE OPERATOR.FIELD MECHANICAL METER TESTER Work Phone: [facility] 09-25-2024 07:24-0500 Respiratory rate 16 /min Irlanda Podlogar DEOILING MACHINE OPERATOR.FIELD MECHANICAL METER TESTER Work Phone: [facility] 09-25-2024 07:24-0500 SaO2% (BldA) [Mass fraction] 96 % Irlanda Podlogar DEOILING MACHINE OPERATOR.FIELD MECHANICAL METER TESTER Work Phone: [facility] 09-25-2024 07:24-0500 Systolic blood pressure 136 mm[Hg] Irlanda Podlogar DEOILING MACHINE OPERATOR.FIELD MECHANICAL METER TESTER Work Phone: [facility] 09-16-2024 10:44-0500 Body mass index (BMI) [Ratio] 36.84 kg/m2 Rony Chávez DEOILING MACHINE OPERATOR.FIELD MECHANICAL METER TESTER Work Phone: [facility] 09-16-2024 10:44-0500 Body temperature 98.6 [degF] Rony Cedric DEOILING MACHINE OPERATOR.FIELD MECHANICAL METER TESTER Work Phone: [facility] 09-16-2024 10:44-0500 Body weight 109.9 kg Rony Chávez APRN.FIELD MECHANICAL METER TESTER Work Phone: [facility] 09-16-2024 10:44-0500 Diastolic blood pressure 80 mm[Hg] Rony Chávez APRN.FIELD MECHANICAL METER TESTER Work Phone: [facility] 09-16-2024 10:44-0500 Heart rate 95 /min Rony Chávez APRN.FIELD MECHANICAL METER TESTER Work Phone: [facility] 09-16-2024 10:44-0500 Respiratory rate 21 /min Rony Chávez APRN.FIELD MECHANICAL METER TESTER Work Phone: [facility] 09-16-2024 10:44-0500 SaO2% (BldA) [Mass fraction] 96 % Rony Chávez APRN.FIELD MECHANICAL METER TESTER Work Phone: [facility] 09-16-2024 10:44-0500 Systolic blood pressure 130 mm[Hg] Rony Chávez APRN.FIELD MECHANICAL METER TESTER Work Phone: [facility] 07-11-2024 13:57-0400 Body mass index (BMI) [Ratio] 37.54 kg/m2 Letitia Odell APRN.FIELD MECHANICAL METER TESTER Work Phone: [facility] 07-11-2024 13:57-0400 Body temperature 98.01 [degF] Letitia Odell DEOILING MACHINE OPERATOR.FIELD MECHANICAL METER TESTER Work Phone: [facility] 07-11-2024 13:57-0400 Body weight 112 kg Letitia Odell APRN.FIELD MECHANICAL METER TESTER Work Phone: [facility] 07-11-2024 13:57-0400 Diastolic blood pressure 82 mm[Hg] Letitia Odell APRN.FIELD MECHANICAL METER TESTER Work Phone: [facility] 07-11-2024 13:57-0400 Heart rate 88 /min Letitia Odell APRN.FIELD MECHANICAL METER TESTER Work Phone: [facility] 07-11-2024 13:57-0400 Respiratory rate 18 /min Letitia Hoyt-Wood DEOILING MACHINE OPERATOR.FIELD MECHANICAL METER TESTER Work Phone: [facility] 07-11-2024 13:57-0400 SaO2% (BldA) [Mass fraction] 98 % Letitia Hoyt-Wood DEOILING MACHINE OPERATOR.FIELD MECHANICAL METER TESTER Work Phone: [facility] 07-11-2024 13:57-0400 Systolic blood pressure 128 mm[Hg] Letitia Sepulvedaler-Wood DEOILING MACHINE OPERATOR.FIELD MECHANICAL METER TESTER Work Phone: [facility] 05-28-2024 15:08-04[address] Blood Pressure Cuff Size DR RIKI COATES MD [facility] 05-28-2024 15:08-[address] RIKI COATES MD [facility] 05-28-2024 15:08-0400 Blood Pressure Method DR RIKI COATES MD [facility] 05-28-2024 15:08-0400 Body height 172.[address] RIKI COATES MD [facility] 05-28-2024 15:08-0400 Body temperature 97.16 [degF] DR RIKI COATES MD [facility] 05-28-2024 15:08-0400 Body weight [address] RIKI COATES MD [facility] 05-28-2024 15:08-0400 Diastolic Blood Pressure Non-Invasive 104 mm[Hg] DR RIKI COATES MD [facility] 05-28-2024 15:08-0400 Heart rate 86 /min DR RIKI COATES MD [facility] 05-28-2024 15:08-0400 Respiratory rate 18 /min DR RIKI COATES MD [facility] 05-28-2024 15:08-0400 Systolic Blood Pressure Non-Invasive 172 mm[Hg] DR RIKI COATES MD [facility] 04-06-2024 07:50-0400 Body mass index (BMI) [Ratio] 38.35 kg/m2 Jean Claude Huitron MD Work Phone: [facility] 04-06-2024 07:50-0400 Body weight 114.4 kg Jean Claude Huitron MD Work Phone: [facility] 04-06-2024 07:50-0400 Diastolic blood pressure 80 mm[Hg] Jean Claude Huitron MD Work Phone: [facility] 04-06-2024 07:50-0400 Heart rate 80 /min Jean Claude Huitron MD Work Phone: [facility] 04-06-2024 07:50-0400 Respiratory rate 16 /min Jean Claude Huitron MD Work Phone: [facility] 04-06-2024 07:50-0400 SaO2% (BldA) [Mass fraction] 98 % Jean Claude Huitron MD Work Phone: [facility] 04-06-2024 07:50-0400 Systolic blood pressure 136 mm[Hg] Jean Claude Huitron MD Work Phone: [facility] 09-30-2023 14:00-0500 Diastolic Blood Pressure Non-Invasive 74 mm[Hg] CAPRICE MONTANO MD [facility] 09-30-2023 14:00-0500 Heart rate 78 /min CAPRICE MONTANO MD [facility] 09-30-2023 14:00-0500 Systolic Blood Pressure Non-Invasive 126 mm[Hg] CAPRICE MONTANO MD [facility] 09-30-2023 12:09-0500 Body height 173 cm CAPRICE MONTANO MD [facility] 09-30-2023 12:09-0500 Body temperature 98.78 [degF] CAPRICE MONTANO MD [facility] 09-30-2023 12:09-0500 Body weight 104.5 kg CAPRICE MONTANO MD [facility] 09-30-2023 12:09-0500 Diastolic Blood Pressure Non-Invasive 85 mm[Hg] CAPRICE MONTANO MD [facility] 09-30-2023 12:09-0500 Heart rate 100 /min CAPRICE MONTANO MD [facility] 09-30-2023 12:09-0500 Respiratory rate 16 /min CAPRICE MONTANO MD [facility] 09-30-2023 12:09-0500 Systolic Blood Pressure Non-Invasive 130 mm[Hg] CAPRICE MONTANO MD [facility] 09-22-2023 18:02-0500 Body height 172 cm MYA MYERS MD [facility] 09-22-2023 18:02-0500 Body temperature 99.14 [degF] MYA MYERS MD [facility] 09-22-2023 18:02-0500 Body weight 104 kg MYA MYERS MD [facility] 09-22-2023 18:02-0500 Diastolic Blood Pressure Non-Invasive 87 mm[Hg] MYA MYERS MD [facility] 09-22-2023 18:02-0500 Heart rate 105 /min MYA MYERS MD [facility] 09-22-2023 18:02-0500 Respiratory rate 20 /min MYA MYERS MD [facility] 09-22-2023 18:02-0500 Systolic Blood Pressure Non-Invasive 143 mm[Hg] MYA MYERS MD [facility] 06-03-2023 11:10-0400 Body weight 109.32 kg Jean Claude Huitron MD Work Phone: [facility] 06-03-2023 11:10-0400 Diastolic blood pressure 78 mm[Hg] Jean Claude Huitron MD Work Phone: [facility] 06-03-2023 11:10-0400 Heart rate 80 /min Jean Claude Huitron MD Work Phone: [facility] 06-03-2023 11:10-0400 Respiratory rate 16 /min Jean Claude Huitron MD Work Phone: [facility] 06-03-2023 11:10-0400 Systolic blood pressure 128 mm[Hg] Jean Claude Huitron MD Work Phone: [facility] 04-13-2023 19:54-0400 Diastolic blood pressure 89 mm[Hg] [facility] 04-13-2023 19:54-0400 Heart rate 102 /min [facility] 04-13-2023 19:54-0400 Respiratory rate 16 /min [facility] 04-13-2023 19:54-0400 SaO2% (BldA) [Mass fraction] 99 % [facility] 04-13-2023 19:54-0400 Systolic blood pressure 142 mm[Hg] [facility] 04-13-2023 17:27-0400 Body height 172.[address] [facility] 04-13-2023 17:27-0400 Body mass index (BMI) [Ratio] 80.6 kg/m2 [facility] 04-13-2023 17:27-0400 Body temperature 97.5 [degF] [facility] 04-13-2023 17:27-0400 Body weight 240.[address] [facility] 04-05-2023 09:21-0400 Body temperature 98.01 [degF] Letitia Praisler-Wood DEOILING MACHINE OPERATOR.FIELD MECHANICAL METER TESTER Work Phone: [facility] 04-05-2023 09:21-0400 Body weight 107.59 kg Lettiia Praisler-Wood DEOILING MACHINE OPERATOR.FIELD MECHANICAL METER TESTER Work Phone: [facility] 04-05-2023 09:21-0400 Diastolic blood pressure 82 mm[Hg] Letitia Praisler-Wood DEOILING MACHINE OPERATOR.FIELD MECHANICAL METER TESTER Work Phone: [facility] 04-05-2023 09:21-0400 Heart rate 98 /min Letitia Praisler-Wood DEOILING MACHINE OPERATOR.FIELD MECHANICAL METER TESTER Work Phone: [facility] 04-05-2023 09:21-0400 Respiratory rate 16 /min Letitia Praisler-Wood DEOILING MACHINE OPERATOR.FIELD MECHANICAL METER TESTER Work Phone: [facility] 04-05-2023 09:21-0400 SaO2% (BldA) [Mass fraction] 98 % Letitia Praisler-Wood DEOILING MACHINE OPERATOR.FIELD MECHANICAL METER TESTER Work Phone: [facility] 04-05-2023 09:21-0400 Systolic blood pressure 126 mm[Hg] Letitia Praisler-Wood DEOILING MACHINE OPERATOR.FIELD MECHANICAL METER TESTER Work Phone: [facility] 02-27-2023 15:04-0400 Body weight 110.68 kg Bobbi Older DEOILING MACHINE OPERATOR.FIELD MECHANICAL METER TESTER Work Phone: [facility] 02-27-2023 15:04-0400 Diastolic blood pressure 78 mm[Hg] Bobbi Older DEOILING MACHINE OPERATOR.FIELD MECHANICAL METER TESTER Work Phone: [facility] 02-27-2023 15:04-0400 Heart rate 98 /min Bobbi Older DEOILING MACHINE OPERATOR.FIELD MECHANICAL METER TESTER Work Phone: [facility] 02-27-2023 15:04-0400 Respiratory rate 16 /min Bobbi Older DEOILING MACHINE OPERATOR.FIELD MECHANICAL METER TESTER Work Phone: [facility] 02-27-2023 15:04-0400 SaO2% (BldA) [Mass fraction] 98 % Bobbi Older DEOILING MACHINE OPERATOR.FIELD MECHANICAL METER TESTER Work Phone: [facility] 02-27-2023 15:04-0400 Systolic blood pressure 128 mm[Hg] Bobbi Older DEOILING MACHINE OPERATOR.FIELD MECHANICAL METER TESTER Work Phone: [facility] 01-14-2023 08:12-0500 Body weight 109.5 kg Jean Claude Huitron MD Work Phone: [facility] 01-14-2023 08:12-0500 Diastolic blood pressure 78 mm[Hg] Jean Claude Huitron MD Work Phone: [facility] 01-14-2023 08:12-0500 Heart rate 87 /min Jean Claude Huitron MD Work Phone: [facility] 01-14-2023 08:12-0500 Respiratory rate 16 /min Jean Claude Huitron MD Work Phone: [facility] 01-14-2023 08:12-0500 SaO2% (BldA) [Mass fraction] 97 % Jean Claude Huitron MD Work Phone: [facility] 01-14-2023 08:12-0500 Systolic blood pressure 128 mm[Hg] Jean Claude Huitron MD Work Phone: [facility] 12-02-2022 15:36-0500 Body weight 111.13 kg Jean Claude Huitron MD Work Phone: [facility] 12-02-2022 15:36-0500 Diastolic blood pressure 80 mm[Hg] Jean Claude Huitron MD Work Phone: [facility] 12-02-2022 15:36-0500 Heart rate 90 /min Jean Claude Huitron MD Work Phone: [facility] 12-02-2022 15:36-0500 Respiratory rate 16 /min Jean Claude Huitron MD Work Phone: [facility] 12-02-2022 15:36-0500 SaO2% (BldA) [Mass fraction] 99 % Jean Claude Huitron MD Work Phone: [facility] 12-02-2022 15:36-0500 Systolic blood pressure 138 mm[Hg] Jean Claude Huitron MD Work Phone: [facility] 11-25-2022 13:39-0500 Body temperature 98.2 [degF] Letitia Praisler-Wood DEOILING MACHINE OPERATOR.FIELD MECHANICAL METER TESTER Work Phone: [facility] 11-25-2022 13:39-0500 Body weight 109.32 kg Letitia Praisler-Wood DEOILING MACHINE OPERATOR.FIELD MECHANICAL METER TESTER Work Phone: [facility] 11-25-2022 13:39-0500 Diastolic blood pressure 98 mm[Hg] Letitia Praisler-Wood DEOILING MACHINE OPERATOR.FIELD MECHANICAL METER TESTER Work Phone: [facility] 11-25-2022 13:39-0500 Heart rate 120 /min Letitia Praisler-Wood DEOILING MACHINE OPERATOR.FIELD MECHANICAL METER TESTER Work Phone: [facility] 11-25-2022 13:39-0500 Respiratory rate 21 /min Letitia Praisler-Wood DEOILING MACHINE OPERATOR.FIELD MECHANICAL METER TESTER Work Phone: [facility] 11-25-2022 13:39-0500 SaO2% (BldA) [Mass fraction] 97 % Letitia Praisler-Wood DEOILING MACHINE OPERATOR.FIELD MECHANICAL METER TESTER Work Phone: [facility] 11-25-2022 13:39-0500 Systolic blood pressure 128 mm[Hg] Letitia Praisler-Wood DEOILING MACHINE OPERATOR.FIELD MECHANICAL METER TESTER Work Phone: [facility] 08-30-2022 09:13-0400 Diastolic blood pressure 86 mm[Hg] [facility] Work Phone: 08-30-2022 09:13-0400 Heart rate 99 /min [facility] Work Phone: 08-30-2022 09:13-0400 Respiratory rate 16 /min [facility] Work Phone: 08-30-2022 09:13-0400 SaO2% (BldA) [Mass fraction] 98 % [facility] Work Phone: 08-30-2022 09:13-0400 Systolic blood pressure 148 mm[Hg] [facility] Work Phone: 08-30-2022 07:59-0400 Body height 172.[address] [facility] Work Phone: 08-30-2022 07:59-0400 Body mass index (BMI) [Ratio] 40.9 kg/m2 [facility] Work Phone: 08-30-2022 07:59-0400 Body temperature 98.3 [degF] [facility] Work Phone: 08-30-2022 07:59-0400 Body weight 122.[address] [facility] Work Phone: 07-14-2022 08:00-0400 Body temperature 97.81 [degF] Irlanda Podlogar DEOILING MACHINE OPERATOR.FIELD MECHANICAL METER TESTER Work Phone: [facility] 07-14-2022 08:00-0400 Body weight 111.4 kg Irlanda Podlogar DEOILING MACHINE OPERATOR.FIELD MECHANICAL METER TESTER Work Phone: [facility] 07-14-2022 08:00-0400 Diastolic blood pressure 84 mm[Hg] Irlanda Podlogar DEOILING MACHINE OPERATOR.FIELD MECHANICAL METER TESTER Work Phone: [facility] 07-14-2022 08:00-0400 Heart rate 95 /min Irlanda Podlogar DEOILING MACHINE OPERATOR.FIELD MECHANICAL METER TESTER Work Phone: [facility] 07-14-2022 08:00-0400 SaO2% (BldA) [Mass fraction] 100 % Irlanda Podlogar DEOILING MACHINE OPERATOR.FIELD MECHANICAL METER TESTER Work Phone: [facility] 07-14-2022 08:00-0400 Systolic blood pressure 122 mm[Hg] Irlanda Podlogar DEOILING MACHINE OPERATOR.FIELD MECHANICAL METER TESTER Work Phone: [facility] 07-07-2022 10:59-0400 Body temperature 97.5 [degF] Irlanda Podlogar DEOILING MACHINE OPERATOR.FIELD MECHANICAL METER TESTER Work Phone: [facility] 07-07-2022 10:59-0400 Body weight 110.5 kg Irlanda Podlogar DEOILING MACHINE OPERATOR.FIELD MECHANICAL METER TESTER Work Phone: [facility] 07-07-2022 10:59-0400 Diastolic blood pressure 76 mm[Hg] Irlanda Podlogar DEOILING MACHINE OPERATOR.FIELD MECHANICAL METER TESTER Work Phone: [facility] 07-07-2022 10:59-0400 Heart rate 101 /min Irlanda Podlogar DEOILING MACHINE OPERATOR.FIELD MECHANICAL METER TESTER Work Phone: [facility] 07-07-2022 10:59-0400 Respiratory rate 16 /min Irlanda Podlogar DEOILING MACHINE OPERATOR.FIELD MECHANICAL METER TESTER Work Phone: [facility] 07-07-2022 10:59-0400 SaO2% (BldA) [Mass fraction] 100 % Irlanda Podlogar DEOILING MACHINE OPERATOR.FIELD MECHANICAL METER TESTER Work Phone: [facility] 07-07-2022 10:59-0400 Systolic blood pressure 128 mm[Hg] Irlanda Podlogar DEOILING MACHINE OPERATOR.FIELD MECHANICAL METER TESTER Work Phone: [facility] 06-13-2022 16:21-0400 Diastolic blood pressure 90 mm[Hg] [facility] Work Phone: 06-13-2022 16:21-0400 Heart rate 88 /min [facility] Work Phone: 06-13-2022 16:21-0400 Respiratory rate 16 /min [facility] Work Phone: 06-13-2022 16:21-0400 SaO2% (BldA) [Mass fraction] 97 % [facility] Work Phone: 06-13-2022 16:21-0400 Systolic blood pressure 142 mm[Hg] [facility] Work Phone: 06-13-2022 10:42-0400 Body height 172.[address] [facility] Work Phone: 06-13-2022 10:42-0400 Body mass index (BMI) [Ratio] 36.5 kg/m2 [facility] Work Phone: 06-13-2022 10:42-0400 Body temperature 97.6 [degF] [facility] Work Phone: 06-13-2022 10:42-0400 Body weight 108.[address] [facility] Work Phone: 06-08-2022 11:20-0400 Body height 172.7 cm Joann Flower DEOILING MACHINE OPERATOR-FIELD MECHANICAL METER TESTER Work Phone: [facility] 06-08-2022 11:20-0400 Body mass index (BMI) [Ratio] 37.21 kg/m2 Joann Flower DEOILING MACHINE OPERATOR-FIELD MECHANICAL METER TESTER Work Phone: [facility] 06-08-2022 11:20-0400 Body temperature 98.2 [degF] Joann Flower DEOILING MACHINE OPERATOR-FIELD MECHANICAL METER TESTER Work Phone: [facility] 06-08-2022 11:20-0400 Body weight 111 kg Joann Flower DEOILING MACHINE OPERATOR-FIELD MECHANICAL METER TESTER Work Phone: [facility] 06-08-2022 11:20-0400 Diastolic blood pressure 80 mm[Hg] Joann Flower DEOILING MACHINE OPERATOR-FIELD MECHANICAL METER TESTER Work Phone: [facility] 06-08-2022 11:20-0400 Heart rate 86 /min Joann Flower DEOILING MACHINE OPERATOR-FIELD MECHANICAL METER TESTER Work Phone: [facility] 06-08-2022 11:20-0400 SaO2% (BldA) [Mass fraction] 98 % Joann Flower DEOILING MACHINE OPERATOR-FIELD MECHANICAL METER TESTER Work Phone: [facility] 06-08-2022 11:20-0400 Systolic blood pressure 139 mm[Hg] Joann Flower DEOILING MACHINE OPERATOR-FIELD MECHANICAL METER TESTER Work Phone: [facility] 05-21-2022 11:45-0400 Body temperature 98.01 [degF] Roxana Moore MD Work Phone: [facility] 05-21-2022 11:45-0400 Diastolic blood pressure 69 mm[Hg] Roxana Moore MD Work Phone: [facility] 05-21-2022 11:45-0400 Heart rate 98 /min Roxana Moore MD Work Phone: [facility] 05-21-2022 11:45-0400 Respiratory rate 13 /min Roxana Moore MD Work Phone: [facility] 05-21-2022 11:45-0400 SaO2% (BldA) [Mass fraction] 97 % Roxana Moore MD Work Phone: [facility] 05-21-2022 11:45-0400 Systolic blood pressure 134 mm[Hg] Roxana Moore MD Work Phone: [facility] 04-22-2022 13:09-0400 Body height 168.3 cm Jean Claude Huitron MD Work Phone: [facility] 04-22-2022 13:09-0400 Body temperature 97.7 [degF] Jean Claude Huitron MD Work Phone: [facility] 04-22-2022 13:09-0400 Body weight 107.59 kg Jean Claude Huitron MD Work Phone: [facility] 04-22-2022 13:09-0400 Diastolic blood pressure 84 mm[Hg] Jean Claude Huitron MD Work Phone: [facility] 04-22-2022 13:09-0400 Heart rate 95 /min Jean Claude Huitron MD Work Phone: [facility] 04-22-2022 13:09-0400 Respiratory rate 16 /min Jean Claude Huitron MD Work Phone: [facility] 04-22-2022 13:09-0400 SaO2% (BldA) [Mass fraction] 98 % Jean Claude Huitron MD Work Phone: [facility] 04-22-2022 13:09-0400 Systolic blood pressure 118 mm[Hg] Jean Claude Huitron MD Work Phone: [facility] 04-01-2022 08:54-0400 Body height 172.7 cm Roxana Moore MD Work Phone: 1(769)848-416890 [address] 04-01-2022 08:54-0400 Body mass index (BMI) [Ratio] 35.58 kg/m2 Roxana Moore MD Work Phone: 6(546)019-866725 [place] [address] 04-01-2022 08:54-0400 Body weight 106.14 kg Roxana Moore MD Work Phone: 9(816)116-189425 [place] [address] 04-01-2022 08:54-0400 Diastolic blood pressure 92 mm[Hg] Roxana Moore MD Work Phone: 5(832)330-572625 [place] [address] 04-01-2022 08:54-0400 Heart rate 93 /min Roxana Moore MD Work Phone: 4(095)181-518725 [place] [address] 04-01-2022 08:54-0400 Systolic blood pressure 143 mm[Hg] Roxana Moore MD Work Phone: 2(873)312-264225 [place] [address] 03-18-2022 09:52-0400 Body height 172.7 cm Kecia Carvalho MD Work Phone: 6(266)040-788290 [address] 03-18-2022 09:52-0400 Body mass index (BMI) [Ratio] 35.43 kg/m2 Kecia Carvalho MD Work Phone: 4(933)597-761925 [place] [address] 03-18-2022 09:52-0400 Body weight 105.69 kg Kecia Carvalho MD Work Phone: 4(460)483-337425 [place] [address] 03-18-2022 09:52-0400 Diastolic blood pressure 72 mm[Hg] Kecia Carvalho MD Work Phone: [facility] 03-18-2022 09:52-0400 Heart rate 82 /min Kecia Carvalho MD Work Phone: [facility] 03-18-2022 09:52-0400 Systolic blood pressure 143 mm[Hg] Kecia Carvalho MD Work Phone: [facility] 06-02-2021 12:14-0400 Body height 172.7 cm Trace Bailey MD Work Phone: [facility] 06-02-2021 12:14-0400 Body mass index (BMI) [Ratio] 30.38 kg/m2 Trace Bailey MD Work Phone: [facility] 06-02-2021 12:14-0400 Body temperature 98.1 [degF] Trace Bailey MD Work Phone: [facility] 06-02-2021 12:14-0400 Body weight 90.63 kg Trace Bailey MD Work Phone: [facility] 06-02-2021 12:14-0400 Diastolic blood pressure 68 mm[Hg] Trace Bailey MD Work Phone: [facility] 06-02-2021 12:14-0400 Heart rate 99 /min Trace Bailey MD Work Phone: [facility] 06-02-2021 12:14-0400 Systolic blood pressure 125 mm[Hg] Trace Bailey MD Work Phone: [facility] Encounters Encounter Date Encounter Type Care Provider Facility Start: 08-15-2025 Non-patient / Non-visit Dr. Chantel Hand DO [facility] Work Phone: Start: 08-15-2025 Non-patient / Non-visit Dr. Werner Cam MD [facility] Start: 08-14-2025 Non-patient / Non-visit Dr. Chantel Hand [facility] Work Phone: Start: 08-14-2025 Non-patient / Non-visit Grace Rio [facility] Start: 08-13-2025 Non-patient / Non-visit Grace Rio [facility] Start: 08-12-2025 Non-patient / Non-visit Dr. Werner Cam MD -[facility] Start: 08-12-2025 Non-patient / Non-visit Dr. Chantel Hand [facility] Work Phone: Start: 08-11-2025 Non-patient / Non-visit Dr. Rivers [facility] Work Phone: Start: 08-11-2025 ambulatory Elias Barahona Fac ility:[facility] Start: 08-11-2025 End: 08-15-2025 Evaluation and management of inpatient Dr. Chantel Hand DO [facility] Work Phone: Start: 03-12-2025 End: 04-12-2025 ambulatory Jean Claude Huitron MD Work Phone: [facility] Start: 01-05-2025 End: 01-05-2025 Emergency department patient visit Mylse Cabrera Facility:[facility] Start: 10-22-2024 End: 10-23-2024 Telephone encounter Irlanda Hogan APRN.FIELD MECHANICAL METER TESTER Work Phone: [facility] Comment on above: Refill Request Start: 10-22-2024 End: 10-22-2024 ambulatory JEAN CLAUDE HUITRON Facility:[facility] Start: 10-22-2024 End: 10-22-2024 Patient encounter procedure Jean Claude Huitron MD Work Phone: [facility] Comment on above: Type 2 diabetes camilla itus with hyperglycemia, with long-term current use of insulin (HCC) (Primary Dx); RLS (restless legs syndrome); Elevated BP without diagnosis of hypertension Start: 09-25-2024 End: 09-25-2024 Patient encounter procedure Irlanda Hogan APRN.CNP Work Phone: [facility] [place] Comment on above: Hospital discharge f ollow-up (Primary Dx); Encounter for immunization; Rectal abscess Start: 09-25-2024 End: 09-25-2024 ambulatory JEAN CLAUDE HUITRON Facility:[facility] Start: 09-21-2024 End: 09-24-2024 E-mail encounter from caregiver Cc Provider Family Beverly Correa Start: 09-21-2024 End: 09-24-2024 Patient encounter procedure Ccf Provider [facility] [place] Comment on above: Your appointment for 09/25/24 Start: 09-19-2024 End: 10-22-2024 Patient Outreach Celeste Villa LPN [facility] Robert harvey Comment on above: Transition Of Care ( [facility] discharge 09/18/24) Start: 09-16-2024 ambulatory Achlaurenleo Sosa Facility :[facility] [place] Start: 09-16-2024 End: 09-18-2024 Evaluation and management of inpatient [facility] Facility:[facility] Start: 09-16-2024 End: 09-16-2024 ambulatory JEAN CLAUDE Robbins [facility] Facility:[facility] Start: 09-16-2024 End: 09-16-2024 Patient encounter procedure Rony Chávez APRN.CNP Work Phone: [facility] Comment on above: Infection (Primary D x) Start: 08-25-2024 End: 08-29-2024 Refill Irlanda Hogan APRN.CNP Work Phone: [facility] Comment on above: Refill Request Start: 07-17-2024 End: 07-17-2024 Telephone encounter Indu Pham [facility] Work Phone: [facility] Comment on above: Appointment Start: 07-13-2024 End: 07-16-2024 Telephone encounter Rose JOE Work Phone: [facility] Comment on above: Results Start: 07-11-2024 End: 07-11-2024 ambulatory [facility] Facility:[facility] Start: 07-11-2024 End: 07-11-2024 Patient encounter procedure Letitia Odell APRN.[employer] ME[employer] METER TESTER Work Phone: [facility] Comment on above: Sore throat (Primary Dx); Fever, unspecified fever cause Start: 05-28-2024 End: 05-28-2024 Emergency department patient [facility] Start: 05-07-2024 End: 05-07-2024 ambulatory JEAN CLAUDE HUITRON Facility:[facility] Start: 05-02-2024 Refill Irlanda Hogan APRN.[facility] Work Phone: [facility] [place] Comment on above: Refill Request Diabetic Check In/ M ed update Start: 04-26-2024 E-mail encounter fro m caregiver Indu Ankit [facility] Work Phone: [facility] Start: 04-26-2024 Patient encounter procedure Indu Ankit [facility] Work Phone: [facility] Comment on above: Primary Care Pharmac ist Visit Start: 04-11-2024 Telephone encounter Joaquin Huitron MD Work Phone: [facility] [place] Comment on above: Results Start: 04-09-2024 Telephone encounter Joaquin Huitron MD Work Phone: [facility] Comment on above: Primary care Pharmac y Appt Start: 04-06-2024 End: 04-06-2024 Patient encounter procedure Jean Claude Huitron MD Work Phone: [facility] [place] Comment on above: Annual physical exam (Primary Dx); Type 2 diabetes mellitus with hyperglycemia, with long-term current use of insulin (HCC); Peripheral polyneuropathy; RLS (restless legs syndrome); Mixed hyperlipidemia; Obesity (BMI 30-39.9); Screening for cervical cancer; Encounter for immunization Start: 02-03-2024 ambulatory JEAN CLAUDE HUITRON Facility:[id number] Start: 02-03-2024 End: 02-03-2024 Subsequent hospital visit by physician [facility] [place] [id number] Radiology Comment on above: Encounter for screen ing mammogram for breast cancer [Z12.31] Start: 02-03-2024 Documentation procedure [facility]og [facility] Start: 02-03-2024 Letter encounter Mammography Coordinator [facility] Department Start: 01-30-2024 Refill Irlanda Hogan APRN.CNP Work Phone: [facility] [place] Comment on above: Refill Request Start: 12-28-2023 ambulatory Jean Claude Huitron MD Work Phone: [facility] [facility] Start: 10-07-2023 End: 10-11-[address] MARTHA NANCE MD Facility:[facility] Start: 10-07-2023 End: 10-11-[address] [facility] Start: 09-30-2023 End: 09-30-2023 Emergency department patient visit [facility] Start: 09-22-2023 End: 09-22-2023 Emergency department [facility] Start: 08-19-2023 End: 08-19-[address] [facility] Work Phone: Start: 08-19-2023 End: 08-19-[address] [facility] Work Phone: Start: 08-09-2023 Admission to [facility] Jean Claude Huitron MD Work Phone: Family [facility] [place] Comment on above: Surgery Clearance Fo rm Start: 08-09-2023 ambulatory Jean Claude Huitron MD Work Phone: [facility] [place] Start: 08-09-2023 Telephone encounter Joaquin Huitron MD Work Phone: Family [facility] Comment on above: Results Start: 08-05-2023 ambulatory Jean Claude Huitron MD Work Phone: [facility] [place] Comment on above: Surgical Clearance Start: 08-05-2023 Preprocedural examination done Jean Claude Huitron MD Work Phone: [facility] Work Phone: Start: 07-08-2023 Refill Jean Claude Huitron MD Work Phone: [facility] [place] Comment on above: Refill Request (LAST WAS ONLY MED UPDATE) Start: 07-04-2023 Refill Jean Claude Huitron MD Work Phone: [facility] [place] Comment on above: Refill Request; Refi ll Request Start: 06-07-2023 Telephone encounter Joaquin Huitron MD Work Phone: [facility] [place] Comment on above: Insurance Authorizat ion Start: 06-03-2023 Telephone encounter Joaquin Huitron MD Work Phone: [facility] [place] Comment on above: pre op form ([facility]) Start: 06-03-2023 End: 06-03-2023 Patient encounter procedure Jean Claude Huitron MD Work Phone: [facility] Comment on above: Type 2 diabetes camilla itus with hyperglycemia, with long-term current use of insulin (HCC) (Primary Dx); Pre-op evaluation; Traumatic tear of left rotator cuff, unspecified tear extent, subsequent encounter Start: 06-03-2023 End: 06-03-2023 Preprocedural examination done Jean Claude Huitron MD Work Phone: [facility] Work Phone: Start: 06-01-2023 Refill Irlanda Podlogar DEOILING MACHINE OPERATOR.FIELD MECHANICAL METER TESTER Work Phone: [facility] [place] Comment on above: Refill Request Start: 05-16-2023 Refill Irlanda Podlogar DEOILING MACHINE OPERATOR.FIELD MECHANICAL METER TESTER Work Phone: [facility] [place] Comment on above: Refill Request Start: 04-13-2023 End: 04-13-2023 Emergency department patient visit [facility] Start: 04-06-2023 Telephone encounter Rony Cedric BRYANT.FIELD MECHANICAL METER TESTER Work Phone: [facility] Comment on above: Results Start: 04-05-2023 End: 04-05-2023 Patient encounter procedure Letitia DelgadilloFlor DEOILING MACHINE OPERATOR.FIELD MECHANICAL METER TESTER Work Phone: [facility] Comment on above: Sinobronchitis (Prim prachi Dx) Start: 02-27-2023 End: 02-27-2023 Emergency department patient visit JOSE WEINSTEIN Facility:[place] Start: 02-27-2023 End: 02-27-2023 Patient encounter procedure Bobbi Herbert DEOILING MACHINE OPERATOR.FIELD MECHANICAL METER TESTER Work Phone: [facility] Comment on above: Right arm pain (Prim prachi Dx); Numbness and tingling of right arm; Headache, unspecified headache type; Left facial numbness Start: 01-17-2023 Telephone encounter Alisia RICE [facility] Comment on above: New Primary Care Pha rmacy Appt. Start: 01-14-2023 End: 01-14-2023 Patient encounter procedure Jean Claude Huitron MD Work Phone: [facility] [place] Comment on above: Type 2 diabetes camilla itus with hyperglycemia, with long-term current use of insulin (HCC) (Primary Dx) Start: 01-12-2023 ambulatory Jean Claude Huitron MD Work Phone: Internal Medicine [facility] Start: 01-05-2023 E-mail encounter fro m caregiver [facility] [place] Start: 01-05-2023 Patient encounter procedure [facility] [place] Comment on above: Appointment Start: 12-06-2022 Refill Jean Claude Huitron MD Work Phone: [facility] [place] Comment on above: Refill Request Start: 12-05-2022 ambulatory Jean Claude Huitron MD Work Phone: [facility] [place] Comment on above: Long acting Insulin (Lantus) Start: 12-02-2022 End: 12-02-2022 Patient encounter procedure Jean Claude Huitron MD Work Phone: [facility] Comment on above: Abscess, gluteal, ri ght (Primary Dx); Status post incision and drainage; Type 2 diabetes mellitus with hyperglycemia, with long-term current use of insulin ([facility]) Start: 11-29-2022 Telephone encounter Joaquin Huitron MD Work Phone: [facility] Comment on above: Medication Request Start: 11-28-2022 End: 11-28-2022 Emergency department patient visit MARIA DEL CARMEN TSANG MD Facility:[place] Start: 11-25-2022 End: 11-25-2022 Patient encounter procedure Letitia Odell DEOILING MACHINE OPERATOR.FIELD MECHANICAL METER TESTER Work Phone: [facility] Comment on above: Boil, buttock (Prima ry Dx) Start: 08-30-2022 End: 08-30-2022 Emergency department patient visit [facility] Start: 07-14-2022 End: 07-14-2022 Patient encounter procedure Irlanda Hogan APRN.FIELD MECHANICAL METER TESTER Work Phone: [facility] Comment on above: Recurrent UTI (urina ry tract infection) (Primary Dx); Diabetes mellitus type II ([facility]) Start: 07-09-2022 Telephone encounter Irlanda gunderson APRN.FIELD MECHANICAL METER TESTER Work Phone: [facility] Comment on above: Results Start: 07-07-2022 ambulatory Jean Claude Huitron MD Work Phone: [facility] Comment on above: Kidney Infection Start: 07-07-2022 Telephone encounter Irlanda gunderson APRN.FIELD MECHANICAL METER TESTER Work Phone: [facility] Comment on above: Medication Question Start: 07-07-2022 End: 07-07-2022 Patient encounter procedure Irlanda Hogan APRN.FIELD MECHANICAL METER TESTER Work Phone: [facility] Comment on above: UTI symptoms (Primar y Dx); Abdominal wall seroma, subsequent encounter Start: 06-24-2022 Telephone encounter Joaquin Huitron MD Work Phone: [facility] Comment on above: Results Start: 06-13-2022 End: 06-13-2022 Emergency department patient visit [facility] Start: 06-08-2022 ambulatory JEAN CLAUDE HUITRON [facility] Start: 06-08-2022 End: 06-08-2022 Postop follow up visit related to original px Roxana Moore MD Work Phone: [facility] [place] Comment on above: S/P repair of ventra l hernia (Primary Dx) Start: 05-21-2022 End: 05-21-2022 ambulatory ROXANA MOORE Facility:[facility] Start: 05-21-2022 End: 05-21-2022 Subsequent hospital visit by physician Roxana Moore MD Work Phone: [facility] Comment on above: Incisional hernia Start: 05-13-2022 Telephone encounter Joaquin Huitron MD Work Phone: [facility] Comment on above: Results Start: 05-07-2022 End: 05-07-2022 Subsequent hospital visit by physician [facility] (I-Stat/1.5t) Work Phone: Radiology Comment on above: Liver lesion [K76.9] Start: 05-07-2022 ambulatory JEAN CLAUDE Cardoza [facility] Start: 05-07-2022 Encounter for other preprocedural examination JEAN CLAUDE HUITRON Facility:[facility] Start: 04-22-2022 End: 04-22-2022 Patient encounter procedure Jean Claude Huitron MD Work Phone: Family [facility] [place] Comment on above: Annual physical exam (Primary Dx); Pre-operative clearance; Diabetes mellitus type II (HCC); Mixed hyperlipidemia; Ventral hernia without obstruction or gangrene; Liver lesion; Obesity (BMI 30-39.9); Screening for cervical cancer Start: 04-22-2022 End: 04-22-2022 Preoperative state Jean Claude Huitron MD Work Phone: [facility] [place] Start: 04-02-2022 Refill Jean Claude Huitron MD Work Phone: [facility] Comment on above: Refill Request Start: 04-01-2022 ambulatory ROXANA MOORE Facilit y:[facility] Start: 04-01-2022 End: 04-01-2022 Office outpatient visit 25 minutes Roxana Moore MD Work Phone: [facility] [place] Comment on above: Ventral hernia witho ut obstruction or gangrene Start: 03-18-2022 ambulatory SELF SELF Facility:[facility] Start: 03-18-2022 End: 03-18-2022 Office outpatient visit 15 minutes Kecia Carvalho MD Work Phone: Colorectal Surgery [facility] [place] Comment on above: Ventral hernia witho ut obstruction or gangrene (Primary Dx) Start: 03-17-2022 ambulatory JEAN CLAUDE HUITRON Fac ility:[facility] Start: 03-17-2022 End: 03-17-2022 Subsequent hospital visit by physician Kecia Carvalho MD Work Phone: [facility] [place] Comment on above: Arrived Start: 03-15-2022 End: 03-16-2022 ambulatory JEAN CLAUDE HUITRON Facility:[facility] Start: 03-02-2022 Refill Jean Claude Huitron MD Work Phone: [facility] [place] Comment on above: Refill Request Start: 02-26-2022 Refill rIlanda Hogan APRN.CNP Work Phone: [facility] [place] Comment on above: Refill Request Start: 06-02-2021 End: 06-02-2021 Postop follow up visit related to original px Trace Bailey MD Work Phone: Trauma Surgery [facility] Comment on above: Follow up (Primary D x) Start: 10-23-2020 End: 10-23-2020 Patient encounter procedure BEATRIZ BLARI [facility] Procedures Date Procedure Procedure Detail Performing Clinician Start: 08-15-[address] Joaquin Huitron MD Work Phone: Start: 08-13-2025 Serum inorganic phosphate measurement Dr. Joaquin Huitron MD Work Phone: Start: 08-12-[address] Joaquin Huitron MD Work Phone: Start: 08-12-2025 Gram stain microscopy Dave Huitron MD Work Phone: Start: 08-12-2025 End: 08-12-2025 Microbial culture, routine Dr. Joaquin Huitron MD Work Phone: Start: 08-12-[address] Joaquin Huitron MD Work Phone: Start: 08-11-2025 Urnls dip stick/tabl et reagent auto microscopy Dr. Joaquin Huitron MD Work Phone: Start: 08-11-2025 Ct abdomen & pelvis w/contrast material Dr. Joaquin Huitron MD Work Phone: Start: 08-11-[address] Russell Huitron MD Work Phone: Start: 07-11-2024 Urnls dip stick/tabl et rgnt auto w/o microscopy Letitia Odell APRN.FIELD MECHANICAL METER TESTER Work Phone: Start: 07-11-2024 STREP A MOLECULAR (POC) Letitia Odell APRN.FIELD MECHANICAL METER TESTER Work Phone: Start: 02-03-2024 Screening mammograph y [...] stick/tabl et rgnt auto w/o microscopy Irlanda Hogan APRN.FIELD MECHANICAL METER TESTER Work Phone: Start: 08-31-2022 Urnls dip stick/tabl et rgnt auto w/o microscopy Irlanda Hogan DEOILING MACHINE OPERATOR.FIELD MECHANICAL METER TESTER Work Phone: Start: 06-13-2022 Computed tomography of [...] MD Work Phone: Start: 12-11-2021 Mammography Irlanda gunderson DEOILING MACHINE OPERATOR.FIELD MECHANICAL METER TESTER Work Phone: Start: 09-09-2021 H/O: surgery History of cre ation of ostomy Kecia Carvalho MD Work Phone: Start: 07-31-2016 Adult depression screening assessment Irlanda Hogan DEOILING MACHINE OPERATOR.FIELD MECHANICAL METER TESTER Work Phone: Plan of Treatment Date Care Activity Detail Author Start: 10-10-2029 Urine microalbumin profile [facility] Start: 10-22-2025 Annual PCP Team Chronic Disease Visit Annual PCP Team Chronic Disease Visit [facility] Start: 09-25-2025 Annual PCP Team Chronic Disease Visit Annual PCP Team Chronic Disease Visit [facility] Start: 09-25-2025 Covid-19 Vaccine ( season) Covid-19 Vaccine ( season) [facility] Comment on above: Postponed from 07/08/2024 (Declined at t his time) Start: 08-15-[address] [facility] Start: 08-14-[address] [facility] Start: 08-13-2025 Provision of activity privileges [facility] Start: 08-12-2025 [facility] Start: 08-12-2025 Referral to general surgeon [facility] Start: 08-12-2025 [facility] Start: 08-11-[address] [facility] Start: 08-11-2025 Assessment of risk of venous thromboembolism [facility] Start: 08-11-2025 Care regimes management [facility] Start: 08-11-2025 Insertion of catheter into peripheral vein [facility] Start: 08-11-[address] [facility] Start: 08-11-[address] [facility] Start: 08-11-2025 Providing care according to standard [facility] Start: 08-11-2025 End: 08-11-2025 [facility] Start: 08-11-2025 Following clinical pathway protocol [facility] Start: 08-11-[address] [facility] Start: 08-11-[address] [facility] Start: 08-11-2025 Bacteria identified in Blood by Culture Blood Culture [facility] Start: 08-11-2025 [facility] Start: 08-11-2025 Patient referral to dietitian [facility] Start: 04-06-2025 Annual PCP Team Chronic Disease Visit Annual PCP Team Chronic Disease Visit [facility] Start: 04-06-2025 Covid-19 Vaccine ( season) Covid-19 Vaccine () [facility] Comment on above: Postponed from 07/08/2023 (Declined at t his time) Start: 04-06-2025 Diabetic foot examination Diabetic Foot Exam [facility] Start: 04-06-2025 Hepatitis B screening Urine Albumin:Creatinine Ratio [facility] Start: 04-06-2025 Hepatitis B surface antibody level LDL Cholesterol [facility] Start: 02-02-2025 Screening for malignant neoplasm of breast Mammogram Screening [facility] Start: 01-21-2025 End: 01-21-2025 Patient encounter procedure 01/21/2025 7:20 AM EDT Office Visit [facility] [place] [address] [place] [address] Jean Claude Huitron MD [address] [place] [address] 3 month follow up-DM [facility] [place] Comment on above: 3 month follow up-DM Start: 11-12-2024 End: 11-12-2024 Patient encounter procedure 11/12/2024 7:20 AM EST Office Visit [facility] [place] [address] [place] [address] Jean Claude Huitron MD [address] [place] [address] 3 week bp check [facility] [place] Comment on above: 3 week bp check Start: 10-22-2024 End: 01-21-2025 Comprehensive metabolic 2000 panel - Serum or Plasma COMPREHENSIVE METABOLIC PANEL Lab Routine Type 2 diabetes mellitus with hyperglycemia, with long-term current use of insulin (HCC) Expected: 10/22/2024, Expires: 01/21/2025 [facility] Work Phone: Comment on above: Expected: 10/22/2024, Expires: Start: 10-22-2024 End: 01-21-2025 Hemoglobin A1c in Blood HEMOGLOBIN A1C Lab Routine Type 2 diabetes mellitus with hyperglycemia, with long-term current use of insulin (HCC) Expected: 10/22/2024, Expires: 01/21/2025 [facility] Comment on above: Expected: 10/22/2024, Expires: Start: 10-22-2024 End: 10-22-2024 Patient encounter procedure 10/22/2024 7:20 AM EST Office Visit [facility] [place] [address] [place] [address] Jean Claude Huitron MD [address] [facility] [place] [address] Diabetic Check up [facility] [place] Comment on above: Diabetic Check up Start: 10-03-2024 End: 10-03-2024 Patient encounter procedure 10/03/2024 1:00 PM EST Office Visit Family [place] [address] [place] [address] Jean Claude Huitron MD [address] [place] [address] Diabetic check up- recent hospital stay follow up [facility] [place] Comment on above: Diabetic check up- recent hospital stay follow up Start: 09-25-2024 End: 09-25-2024 Patient encounter procedure 09/25/2024 7:20 AM EST Office Visit [facility] [place] [address] [place] [address] PodIrlanda lomeli APRN.FIELD MECHANICAL METER TESTER [address] [place] [address] [facility] Hospital Follow Up; 09/18/2024; Infection [facility] [place] Comment on above: [facility] Hospital Follow Up; 09/18/2024; Infection Start: 07-11-2024 End: 07-11-2024 Patient encounter procedure 07/11/2024 7:00 AM EDT Office Visit [facility] [place] [address] [place] [address] Jean Claude Huitron MD [address] [place] [address] 3 month follow up [facility] [place] Comment on above: 3 month follow up Start: 07-08-2024 Covid-19 Vaccine ( season) Covid-19 Vaccine () [facility] Start: 07-08-2024 Covid-19 Vaccine ( season) Covid-19 Vaccine ( season) [facility] Start: 07-08-2024 Influenza vaccination [facility] Start: 07-07-2024 Hemoglobin A1c measurement HbA1C [facility] Start: 06-14-2024 End: 06-14-2024 Patient encounter procedure Pharm [facility] Comment on above: Type 2 diabetes mellitus with hyperglyce jorgito, with long-term current use of insulin (HCC) [E11.65, Z79.4] Annual Exam new meghann ent Start: 06-03-2024 3 comp foot exam completed DIABETIC FOOT EXAM [facility] Start: 06-03-2024 ANNUAL PCP TEAM CHRONIC DISEASE VISIT ANNUAL PCP TEAM CHRONIC DISEASE VISIT [facility] Start: 06-03-2024 Diabetic foot examination Diabetic Foot Exam [facility] Start: 06-03-2024 Hepatitis B screening URINE ALBUMIN:CREATININE RATIO [facility] Start: 06-03-2024 Hepatitis B surface antibody level LDL CHOLESTEROL [facility] Start: 05-04-2024 End: 05-04-2024 ambulatory 05/04/2024 9:30 AM EDT Results Only [facility] [address] [place] [address] [facility] Start: 04-25-2024 End: 07-25-2024 CBC W Ordered Manual Differential panel - Blood PATHOLOGIST INTERPRETATION WITH CBC AND DIFF Lab Routine Leukocytosis, unspecified type Expected: 04/25/2024, Expires: 07/25/2024 [facility] Work Phone: Comment on above: Expected: 04/25/2024, Expires: Start: 02-01-2024 Hemoglobin A1c measurement HbA1C [facility] Start: 02-01-2024 Hemoglobin A1c/Hemoglobin.total in Blood HbA1C [facility] Start: 01-15-2024 ANNUAL PCP TEAM CHRONIC DISEASE VISIT ANNUAL PCP TEAM CHRONIC DISEASE VISIT [facility] Start: 12-02-2023 ANNUAL PCP TEAM CHRONIC DISEASE VISIT ANNUAL PCP TEAM CHRONIC DISEASE VISIT [facility] Start: 12-02-2023 COVID-19 VACCINE (#1) COVID-19 VACCINE (#1) [facility] Comment on above: Postponed from 1980 (Declined at t his time) Start: 11-07-2023 Behavioral Health Screening Behavioral Health Screening [facility] Start: 11-07-2023 Depression Assessment Depression Assessment [facility] Start: 09-10-2023 ANNUAL PCP TEAM CHRONIC DISEASE VISIT ANNUAL PCP TEAM CHRONIC DISEASE VISIT [facility] Start: 09-03-2023 Hemoglobin A1c/Hemoglobin.total in Blood HBA1C [facility] Start: 08-08-2023 End: 10-08-2023 Comprehensive metabolic 2000 panel - Serum or Plasma COMP METABOLIC PANEL Lab Routine Type 2 diabetes mellitus with hyperglycemia, with long-term current use of insulin (HCC) Pre-op evaluation Expected: 08/08/2023, Expires: 10/08/2023 [facility] Work Phone: Comment on above: Expected: 08/08/2023, Expires: 3 Start: 07-14-2023 ANNUAL PCP TEAM CHRONIC DISEASE VISIT ANNUAL PCP TEAM CHRONIC DISEASE VISIT [facility] Start: 07-08-2023 Covid-19 Vaccine () Covid-19 Vaccine () [facility] Start: 07-08-2023 Influenza vaccination [facility] Start: 07-07-2023 ANNUAL PCP TEAM CHRONIC DISEASE VISIT ANNUAL PCP TEAM CHRONIC DISEASE VISIT [facility] Start: 06-21-2023 ANNUAL PCP TEAM CHRONIC DISEASE VISIT ANNUAL PCP TEAM CHRONIC DISEASE VISIT [facility] Start: 06-03-2023 End: 08-03-2023 ALBUMIN/CREAT RATIO RND UR [facility] Work Phone: Comment on above: Expected: 06/03/2023, Expires: 3 Start: 06-03-2023 End: 08-03-2023 Comprehensive metabolic 2000 panel - Serum or Plasma [facility] Work Phone: Comment on above: Expected: 06/03/2023, Expires: 3 Start: 06-03-2023 End: 08-03-2023 LIPID PANEL, NONFASTING [facility] Work Phone: Comment on above: Expected: 06/03/2023, Expires: 3 Start: 04-22-2023 Adult depression screening assessment DEPRESSION SCREENING [facility] Start: 04-22-2023 ANNUAL PCP TEAM CHRONIC DISEASE VISIT ANNUAL PCP TEAM CHRONIC DISEASE VISIT [facility] Start: 04-22-2023 HEPATITIS B (1 of 3 - Risk 3-dose series) [facility] Comment on above: Postponed from 1999 (Declined at t his time) Postponed from 06/29 (Declined at this time) Start: 04-22-2023 PNEUMOCOCCAL (2 - PCV) PNEUMOCOCCAL (2 - PCV) [facility] Comment on above: Postponed from 08/06/2017 (Declined at t his time) Start: 04-21-2023 Hepatitis B screening URINE ALBUMIN:CREATININE RATIO [facility] Start: 04-21-2023 Hepatitis B surface antibody level LDL CHOLESTEROL [facility] Start: 03-27-2023 Hemoglobin A1c/Hemoglobin.total in Blood HBA1C [facility] Start: 12-15-2022 Glaucoma screening Dilated Retinal Exam [facility] Start: 12-15-2022 Hepatitis C antibody, confirmatory test DILATED RETINAL EXAM [facility] Start: 12-11-2022 Mammography [facility] Start: 12-11-2022 Screening for malignant neoplasm of breast Mammogram Screening [facility] Start: 12-09-2022 ANNUAL PCP TEAM CHRONIC DISEASE VISIT ANNUAL PCP TEAM CHRONIC DISEASE VISIT [facility] Start: 12-02-2022 End: 02-01-2023 Comprehensive metabolic 2000 panel - Serum or Plasma COMP METABOLIC PANEL Lab Routine Type 2 diabetes mellitus with hyperglycemia, with long-term current use of insulin (HCC) Expected: 12/02/2022, Expires: 02/01/2023 [facility] Work Phone: Comment on above: Expected: 12/02/2022, Expires: 3 Start: 12-02-2022 End: 02-01-2023 Hemoglobin A1c in Blood HGB A1C Lab Routine Type 2 diabetes mellitus with hyperglycemia, with long-term current use of insulin (HCC) Expected: 12/02/2022, Expires: 02/01/2023 [facility] Work Phone: Comment on above: Expected: 12/02/2022, Expires: 3 Start: 11-07-2022 DEPRESSION ASSESSMENT DEPRESSION ASSESSMENT [facility] Start: 08-12-2022 End: 08-12-2022 Telemedicine consultation with patient 08/12/2022 Telemedicine General Surgery Joann Flower, DEOILING MACHINE OPERATOR-FIELD MECHANICAL METER TESTER [address] [place] [address] General [facility] Gastro[facility] [place] Start: 07-22-2022 Hemoglobin A1c/Hemoglobin.total in Blood HBA1C [facility] Start: 07-14-2022 End: 09-13-2022 Hemoglobin A1c in Blood HGB A1C Lab Routine Diabetes mellitus type II (HCC) Expected: 07/14/2022, Expires: 09/13/2022 [facility] Work Phone: Comment on above: Expected: 07/14/2022, Expires: 2 Start: 07-14-2022 End: 09-13-2022 URINALYSIS, DIPSTICK ONLY URINALYSIS, DIPSTICK ONLY Lab Routine Recurrent UTI (urinary tract infection) Expected: 07/14/2022, Expires: 09/13/2022 [facility] Work Phone: Comment on above: Expected: 07/14/2022, Expires: 2 Start: 07-08-2022 Influenza vaccination [facility] Start: 2022 PAP TESTING PAP TESTING [facility] Start: 06-05-2022 3 comp foot exam completed DIABETIC FOOT EXAM [facility] Start: 06-05-2022 Hepatitis B screening URINE ALBUMIN:CREATININE RATIO [facility] Start: 06-03-2022 End: 06-03-2022 Patient encounter procedure 06/03/2022 Office Visit General Surgery oRxana Moore MD [address] [place] [address] General and Gastrointestinal Surgery [facility] Start: 06-01-2022 Hepatitis B surface antibody level LDL CHOLESTEROL [facility] Start: 05-21-2022 End: 05-21-2022 Admission to same day surgery center 05/21/2022 Surgery Multispecialty Roxana Moore MD [address] [place] [address] REPAIR HERNIA VENTRAL ROBOTIC W/ MESH [facility] Comment on above: REPAIR HERNIA VENTRAL ROBOTIC W/ MESH Start: 05-21-2022 End: 05-21-2022 Laps repair hernia except incal/ingun reducible REPAIR HERNIA VENTRAL ROBOTIC W/ MESH Incisional hernia 05/21/2022 9:55 AM EDT [facility] Start: 05-21-2022 Subsequent hospital visit by physician 05/21/2022 Hospital Encounter Multispecialty Roxana Moore MD [address] [facility] [address] [place] [address] Incisional hernia [facility] Per[facility] Comment on above: Incisional hernia Start: 05-21-2022 End: 05-21-2022 Laps repair hernia except incal/ingun reducible REPAIR HERNIA VENTRAL ROBOTIC W/ MESH Incisional hernia 05/21/2022 7:29 AM EDT [facility] Start: 05-07-2022 End: 05-07-2022 ambulatory 05/07/2022 Pre-Operative Nurse Assessment Multispecialty [facility] Start: 04-01-2022 End: 04-01-2022 Patient encounter procedure 04/01/2022 Office Visit General Surgery Roxana Moore MD [address] [facility] [address] [place] [address] General and Gastrointestinal Surgery [facility] Start: 03-18-2022 End: 03-18-2022 Patient encounter procedure 03/18/2022 Office Visit Colon & Rectal Surgery Kecia Carvalho MD [address] [place] [address] [address] [place] [address] Colorectal Surgery [facility] Start: 02-26-2022 End: 04-28-2022 ALBUMIN/CREAT RATIO RND UR ALBUMIN/CREAT RATIO RND UR Lab Routine Diabetes mellitus type II (HCC) Expected: 02/26/2022, Expires: 04/28/2022 [facility] Work Phone: Comment on above: Expected: 02/26/2022, Expires: Start: 02-26-2022 End: 04-28-2022 Hemoglobin A1c/Hemoglobin.total in Blood HGB A1C Lab Routine Diabetes mellitus type II (HCC) Expected: 02/26/2022, Expires: 04/28/2022 [facility] Work Phone: Comment on above: Expected: 02/26/2022, Expires: 2 Start: 02-26-2022 End: 04-28-2022 LIPID PANEL, NONFASTING LIPID PANEL, NONFASTING Lab Routine Diabetes mellitus type II (HCC) Expected: 02/26/2022, Expires: 04/28/2022 [facility] Work Phone: Comment on above: Expected: 02/26/2022, Expires: 2 Start: 01-12-2022 Hemoglobin A1c/Hemoglobin.total in Blood HBA1C [facility] Start: 11-07-2021 DEPRESSION ASSESSMENT DEPRESSION ASSESSMENT [facility] Start: 11-04-2021 Hemoglobin A1c measurement HBA1C TEST [facility] Start: 07-08-2021 Influenza vaccination INFLUENZA VACCINE (#1) [facility] Start: 2020 Fasting lipid profile LIPID SCREENING [facility] Start: 2020 Screening mammography MAMMOGRAM SCREENING DISCUSSION [facility] Start: 08-06-2017 PNEUMOCOCCAL (2 - PCV) PNEUMOCOCCAL (2 - PCV) [facility] Start: 08-06-2017 Pneumococcal vaccination [facility] Start: 07-31-2017 Adult depression screening assessment DEPRESSION SCREENING [facility] Start: 2010 HPV TESTING HPV TESTING [facility] Start: 2010 Screening for malignant neoplasm of cervix HPV Testing [facility] Start: 2001 PAP TESTING PAP TESTING [facility] Start: 2001 Screening for malignant neoplasm of cervix [facility] Start: 1999 HEPATITIS B (1 of 3 - Risk 3-dose series) HEPATITIS B (1 of 3 - Risk 3-dose series) [facility] Start: 1999 Hepatitis B Vaccine (1 of 3 - 19+ 3-dose series) Hepatitis B Vaccine (1 of 3 - 19+ 3-dose series) [facility] Start: 1999 Third diphtheria, tetanus and acellular pertussis (DTaP) vaccination TDAP (ADULT) [facility] Start: 1998 Anxiety Screening Anxiety Screening [facility] Start: 1998 Depression Screening Depression Screening [facility] Start: 1998 Tetanus vaccination TETANUS [facility] Start: 1995 HIV screening HIV SCREENING DISCUSSION [facility] Start: 1992 COVID-19 VACCINE (1) COVID-19 VACCINE (1) [facility] Start: 1990 Hepatitis C antibody, confirmatory test DILATED RETINAL EXAM [facility] Start: 1986 PNEUMOCOCCAL (1 - PCV) PNEUMOCOCCAL (1 - PCV) [facility] Start: 1985 COVID-19 VACCINE (#1) COVID-19 VACCINE (#1) [facility] Start: 1985 COVID-19 VACCINE (1) COVID-19 VACCINE (1) [facility] Start: 1980 COVID-19 VACCINE (#1) COVID-19 VACCINE (#1) [facility] Start: 1980 Diabetic foot examination DIABETIC FOOT EXAM [facility] Start: 1980 Diabetic retinal eye exam EYE EXAM [facility] Start: 1980 HEPATITIS B (1 of 3 - 3-dose series) HEPATITIS B (1 of 3 - 3-dose series) [facility] Start: 1980 Hepatitis B Vaccine (1 of 3 - 3-dose series) Hepatitis B Vaccine (1 of 3 - 3-dose series) [facility] Start: 1980 Hepatitis C antibody, confirmatory test HEPATITIS C VIRUS SCREENING [facility] Start: 1980 LIPIDS LIPIDS [facility] Start: 1980 Microalbumin measurement, urine, quantitative URINE MICROALBUMIN TEST [facility] Bacteria identified in Urine by Culture URINE CULTURE Microbiology Routine UTI symptoms 07/07/2022 11:32 AM EDT [facility] Work Phone: Bacteria identified in Urine by Culture URINE CULTURE Microbiology Routine Fever, unspecified fever cause 07/11/2024 3:25 PM EDT [facility] Work Phone: COVID & INFLUENZA A/ B & RSV PCR, ROUTINE COVID & INFLUENZA A/B & RSV PCR, ROUTINE Microbiology Routine Sore throat Fever, unspecified fever cause 07/11/2024 3:25 PM EDT [facility] End: 04-11-2026 DBT Breast - bilateral screening JESSICA SCREENING W [facility] Radiology Routine Encounter for screening mammogram for breast cancer 1 Occurrences starting 03/12/2025 until 04/11/2026 [facility] Work Phone: Comment on above: 1 Occurrences starting 03/12/2025 until 04/11/2026 End: 04-22-2023 ECG COMPLETE ECG COMPLETE ECG Routine Annual physical exam Pre-operative clearance 1 Occurrences starting 04/22/2022 until 04/22/2023 [facility] Work Phone: Comment on above: 1 Occurrences starting 04/22/2022 until 04/22/2023 End: 06-03-2024 ECG COMPLETE ECG COMPLETE ECG Routine Pre-op evaluation 1 Occurrences starting 06/03/2023 until 06/03/2024 [facility] Work Phone: Comment on above: 1 Occurrences starting 06/03/2023 until 06/03/2024 ECG COMPLETE [facility] Influenza virus A an d B RNA and SARS-CoV-2 (COVID-19) N gene panel - Respiratory specimen by NAKUL with probe detection COVID WITH FLUA+B, ROUTINE Microbiology Routine Sinobronchitis 04/05/2023 10:50 AM EDT [facility] Work Phone: End: 02-11-2024 JESSICA SCREENING JESSICA SCREENING Radiology Routine Encounter for screening mammogram for breast cancer 1 Occurrences starting 01/12/2023 until 02/11/2024 [facility] Work Phone: Comment on above: 1 Occurrences starting 01/12/2023 until 02/11/2024 End: 01-26-2025 MG Breast Screening JESSICA SCREENING Radiology Routine Encounter for screening mammogram for breast cancer 1 Occurrences starting 12/28/2023 until 01/26/2025 [facility] Work Phone: Comment on above: 1 Occurrences starting 12/28/2023 until 01/26/2025 End: 05-22-2023 Mri abdomen w/o & w/contrast material MRI LIVER WO/W IVCON Radiology [facility] Liver lesion 1 Occurrences starting 04/22/2022 until 05/22/2023 [facility] Work Phone: Comment on above: 1 Occurrences starting 04/22/2022 until 05/22/2023 Patient Education [facility] Work Phone: Patient referral [facility] Work Phone: Vancomycin [Mass/volume] in Serum or Plasma --trough [facility] Immunizations Immunization Date Immunization Notes Care Provider [facility] 09-25-2024 influenza, seasonal, injectable Irlanda Podlogar DEOILING MACHINE OPERATOR.[employer] Work Phone: [facility] 04-06-2024 pneumococcal conjuga te (PCV20) vaccine, 20 valent (PREVNAR 20) Jean Claude Huitron MD Work Phone: [facility] 04-06-2024 pneumococcal Conjuga te, unspecified formulation Jean Claude Huitron MD Work Phone: [facility] Work Phone: 08-25-2021 influenza, injectabl e, quadrivalent, contains preservative Irlanda Podlogar DEOILING MACHINE OPERATOR.[employer] MET[employer] TE[employer] Work Phone: [facility] 08-25-2021 influenza virus vaccine, unspecified formulation Roxana Moore MD Work Phone: [facility] 10-10-2019 influenza, injectabl e, quadrivalent, contains preservative Irlanda Podlogar DEOILING MACHINE OPERATOR.[employer] MECH[employer] METER TESTER Work Phone: [facility] 10-10-2019 tetanus toxoid, redu flores diphtheria toxoid, and acellular pertussis vaccine, adsorbed Irlanda Podlogar DEOILING MACHINE OPERATOR.[employer] MECH[employer] METER TESTER Work Phone: [facility] 08-06-2016 influenza, injectabl e, quadrivalent, contains preservative Irlanda Podlogar DEOILING MACHINE OPERATOR.[employer] MECH[employer] METER TESTER Work Phone: [facility] 08-06-2016 pneumococcal polysaccharide vaccine, 23 valent Irlanda Podlogar DEOILING MACHINE OPERATOR.[facility] Work Phone: [facility] 08-15-2015 influenza, injectabl e, quadrivalent, contains preservative Irlanda Podlogar DEOILING MACHINE OPERATOR.[facility] Work Phone: [facility] 11-07-2004 tetanus and diphther ia toxoids, adsorbed, preservative free, for adult use (2 Lf of tetanus toxoid and 2 Lf of diphtheria toxoid) Jean Claude Huitron MD Work Phone: [facility] 11-07-2004 tetanus and diphther ia toxoids, not adsorbed, for adult use Irlanda Podlogar DEOILING MACHINE OPERATOR.[facility] Work Phone: [facility] Payers Date Payer Category Payer Unknown [id number] 2024 Self-pay [id number] 2022 Private Health Insurance [employer] [id number] 2022 Unknown [id number] 2019 Medicaid [id number]. [id number] 2019 Unknown [id number] 2019 Unknown [id number] 1.2.840.297564.1.13.172.2. [id number] 2019 Unknown [id number]. 1.13.172.2. 7.3.848183.315 2015 Unknown [id number] 1980 Unknown [id number] 2.16.840.1.705559.3.579.2. 651 1980 Unknown [id number] 2.16.840.1.658532.3.579.2. 594 1980 Unknown [id number] 2.16.840.1.848038.3.579.2. 594 1980 Unknown [id number] 2.16840.1.869895.3.579.2. 594 1980 Unknown [id number] 2.16.840.1.676819.3.579.2. 594 1980 Unknown [id number] 2.16.840.1.626091.3.579.2. 594 1980 Unknown [id number] 2.16.840.1.159619.3.579.2. 594 1980 Unknown [id number] 2.16.840.1.033794.3.579.2. 594 1980 Unknown [id number] 2.16.840.1.778988.3.579.2. 594 1980 Unknown [id number] 2.16.840.1.999442.3.579.2. 627 1980 Unknown [id number] 2.16.840.1.446216.3.579.2. 627 1980 Unknown [id number] 2.16.840.1.117281.3.579.2. 627 1980 Unknown [id number] 2.840.1.404494.3.579.2. 627 Unknown [id number] Unknown [id number] Unknown [id number] 2.840.1.660958.3.579.2. 462 Unknown [id number] 2.840.1.499091.3.579.2. 462 Unknown [id number] 2.840.1.428425.3.579.2. 462 Unknown [id number] 2.840.1.830658.3.579.2. 462 Unknown [id number] 2.840.1.068454.3.579.2. 462 Unknown [id number] 2.840.1.456482.3.579.2. 462 Unknown [id number] 2.840.1.374235.3.579.2. 462 Unknown [id number] 2.840.1.130955.3.579.2. 462 Unknown [id number] 2.840.1.976659.3.579.2. 462 Unknown [id number] 2.840.1.498822.3.579.2. 462 Unknown [id number] 2.840.1.143652.3.579.2. 462 Unknown [id number] 2.840.1.444391.3.579.2. 462 Unknown [id number] 2.840.1.631115.3.579.2. 462 Unknown [id number] 2.840.1.116787.3.579.2. 462 Unknown [id number] 2.840.1.865702.3.579.2. 462 Unknown [id number] 2.840.1.438932.3.579.2. 462 Unknown [id number] 2.16.840.1.766011.3.579.2. 462 Social History Date Type Detail Facility Start: 05-09-2021 End: 08-11-2025 Tobacco smoking status NHIS Never smoker [facility] Start: 05-09-2021 End: 06-21-2022 Tobacco use and exposure Never used [facility] Start: 06-02-2021 End: 06-08-2022 Alcohol intake Lifetime non-drinker (finding) [facility] Start: 06-02-2021 End: 12-09-2022 History SDOH Alcohol Frequency 1 [facility] Start: 1980 Sex Assigned At Not on file O [facility] Start: 02-13-2022 End: 07-07-2022 Exposure to SARS-CoV-2 (event) Not sure [facility] Start: 12-23-2021 End: 10-22-2024 Alcohol intake Current non-drinker of alcohol (finding) [facility] Start: 06-13-2022 End: 04-13-2023 Tobacco smoking status NHIS Unknown if ever smoked [facility] Start: 1980 Sex Assigned At Female W [facility] Start: 12-09-2022 History SDOH Alcohol Std Drinks 0 [facility] Start: 12-09-2022 History SDOH Social Connections Phone 5 [facility] Start: 12-09-2022 History SDOH Social Connections Get Together 3 [facility] Start: 12-09-2022 History SDOH Physica l Activity DPW 4 [facility] Start: 12-09-2022 History SDOH Transpo rt Med 2 [facility] Start: 10-12-2020 End: 12-09-2022 History of Social function [facility] Start: 10-12-2020 End: 12-09-2022 Social connection and isolation panel [facility] Do you belong to any clubs or organizations such as zoroastrian groups, unions, fraternal or athletic groups, or school groups? Yes [facility] Are you now , , , , never or living with a partner? [facility] How often to you hav e a drink containing alcohol? Never [facility] How many standard dr inks containing alcohol do you have on a typical day? Patient does not drink [facility] Do you feel stress - tense, restless, nervous, or anxious, or unable to sleep at night because your mind is troubled all the time - these days [OSQ] Not at all [facility] (I/We) worried wheth er (my/our) food would run out before (I/we) got money to buy more. Never true [facility] In the past 12 month s, was there a time when you were not able to pay the mortgage or rent on time? No [facility] Tobacco smoking status No Smokin g Status Entered [facility] NEGATED: Highlighted row [facility] Medical Equipment Procedure Code Equipment Code Equipment Origin al Text Equipment Identifier Dates [id number], [id number], [id number], [id number], [id number] Start: 07-05-2017 End: 08-25-2024 Comment on above: Test blood sugar(s) 4 times daily. Dx: Type 2 DM - Controlled E11.9 Insulin: Yes Use one needle for e ach dose. 5/day. Test blood sugar(s) 4 times daily and as needed. Dx: 250.02. Insulin: Yes use 1 NEEDLE FOR EAC H DOSE, four times a day Mesh 6x4in Ellip se [employer]ra [employer] Ventralight - [id number] Start: 05-21-2022 Goals Date Patient Goal Desired Activity /State Functional Status Date Assessment Result Facility 08-15-2025 Functional status Ambulates [facility] Work Phone: 08-12-2025 Functional status Activity Abili ty Independent [facility] Work Phone: 08-12-2025 Functional status Ambulates [facility] Work Phone: 09-30-2023 Functional Status Standard Safet y ID band on, Call device within reach, Bed in low position, Wheels locked, Visitor at bedside [facility] 09-22-2023 Functional Status ID band on, Call device within reach, Bed in low position, Wheels locked, Upper/Half-Length side-rails up, Phone within reach, personal items within reach [facility] 06-21-2014 Are you deaf, or do you have serious difficulty hearing No 06/21/2014 2:44 PM EDT Angy Vazquez Ma No [facility] 06-21-2014 Are you blind, or do you have serious difficulty seeing, even when wearing glasses No 06/21/2014 2:44 PM EDT Angy Vazquez Ma No [facility] 06-21-2014 Do you have serious difficulty walking or climbing stairs No 06/21/2014 2:44 PM EDT Angy Vazquez Ma No [facility] 06-21-2014 Do you have difficul ty dressing or bathing No 06/21/2014 2:44 PM EDT Angy Vazquez Ma No [facility] 06-21-2014 Because of a physica l, mental, or emotional condition, do you have difficulty doing errands alone such as visiting a physician's office or shopping No 06/21/2014 2:44 PM EDT Angy Vazquez Ma No [facility] Mental Status Date Assessment Result Facility 08-15-2025 Cognitive function Voice/Name [facility] Work Phone: 08-12-2025 Cognitive function Voice/Name [facility] Work Phone: 05-28-2024 Mental Status Orientation Oriented x 4 [facility] 09-30-2023 Mental Status Orientation Oriented x 4 [facility] 09-22-2023 Mental Status Oriented x 4 [facility] 06-21-2014 Because of a physica l, mental, or emotional condition, do you have serious difficulty concentrating, remembering, or making decisions No 06/21/2014 2:44 PM EDT Angy Vazquez Ma No [facility] Clinical Notes 06-02-2021 to 08-15-2025 Note Date & Type Note Facility 08-15-2025 Progress note Note Date/Time August 15, 2025 10:33am [facility] Medical Records Department [address] [place] [address] Progress Note - Infect Disease 08/15/25 1031 MR#: [id number] Acct: [id number] Name: TRICE ZAMBRANO Rep #:[id number] : 1980 45 From: Fran menendez MD PCP: Dr. Joaquin Huitron MD Status :ADM IN Location: [facility] PD707-6 Physical Exam Narrative Feeling better, less pain, mild nausea, no fever, no diarrhea Const alert and no apparent distress General Appearance: cooperative Resp normal air movement and clear to auscultation bilaterally Cardio regular rate and regular rhythm GI soft to palpation, non-tender and non-distended Skin Skin Narrative: much improved erythema ID ID: Route of nutrition/ use of supplements: [] Nutritional Intake: [] IV Site: [] Mckeon Catheter: [] Assessment & Plan Assessment/Plan (1) Elevated beta-hydroxybutyrate: (2) Diabetes mellitus type 1: QUALIFIERS: Diabetes mellitus complication status: with other specified complication Qualified Code(s): E10.69 - Type 1 diabetes mellitus with other specified complication (3) Cutaneous abscess of perineum: PLAN: At risk for recurrent infections due to uncontrolled DM, a1c is 13.8, glucose was 527 on admit. Now s/p I&D, wound cx with strep so far. On vanc/zosyn, much improved on exam. Ok for discharge with one week po augmentin 875mg bid for 10 days total abx from her I&D. For care home prevention, will need glucose control. Will follow 08/15/25 1033 <Electronically signed by Fran Daley MD> Cosigner Signature (if applicable): CC: ~ Signed [facility] Work Phone: 1(518) 665-448910-09-2025 Discharge summary [facility] Records Department [address] [place] [address] Discharge Summary 08/15/25 1208 MR#: [id number] Acct: [id number] Name: TRICE ZAMBRANO Rep #:[id number] : 1980 45 From: Chantel Hand DO PCP: Dr. Joaquin Huitron MD Status :ADM IN Location: MS3 [id number] Providers Date of Admission: 08/11/25 Date of Discharge: 08/15/25 Primary Care Physician: Dr. Joaquin Huitron MD Consultations 08/12/25 16:36 Consult: General Surgery Routine Consulting Provider: Werner Cam Reason for Consult: R Leg abscess needs I/D EMERGENT Consult: No MD Notified: Yes Date Notified: 08/12/25 Time Notified: 16:36 Method of Notification: Verbal 08/14/25 10:20 Consult: Infectious Disease Routine Consulting Provider: Fran Daley Reason for Consult: abscess EMERGENT Consult: No MD Notified: Yes Date Notified: 08/14/25 Time Notified: 10:47 Method of Notification: Text Reason For Visit: RIGHT PERIANAL CELLULITIS Diagnosis Discharge Diagnosis (1) Abscess: Status: Acute Code(s): L02.91 - Cutaneous abscess, unspecified Medications at Discharge Home Medications insulin glargine 100 unit/mL (3 mL) subcutaneous pen (Basaglar KwikPen U-100 Insulin) 66 unit subcut BID diabetes 04/23/21 insulin lispro 100 unit/mL subcutaneous pen (Humalog KwikPen (U-100) Insulin) 44unit subcut TID 04/23/21 atorvastatin 10 mg tablet 10 mg PO QHS 09/14/21 ropinirole 0.5 mg tablet 1.5 mg PO QHS nerve pain 09/16/24 insulin degludec 100 unit/mL (3 mL) subcutaneous pen (Tresiba FlexTouch U-100 insulin) 64 unit subcut BID 08/11/25 amoxicillin 875 mg-potassium clavulanate 125 mg tablet 1 tab PO BID #14 tabs 08/15/25 lisinopril 10 mg tablet 10 mg PO DAILY #30 tabs 08/15/25 oxycodone 5 mg tablet 5 mg PO Q4H PRN PRN Pain Score 4-10 3 days #18 tabs 08/15/25 Hospital Course Operations - (I&D of right thigh abscess) Procedures - (CT abdomen and pelvis) Summary of Care Provided Minutes Spent on Discharge: 38 Hospital Course: Ms. Zambrano is a 45-year-old white female who presented to the emergency department at [facility] on 08/11/2025 for recurrent perineal abscess/infection. Patient has a significant medical history of diabetes that is not well-controlled as well as perineal cellulitis with history of necrotizing fasciitis to the buttocks in 2020. She had extensive debridement atthat time which resultedneeding colostomy. That has been reversed. She again was hospitalized at this institution in September 2024 with another infection. Patient noted the day prior to presentation she felt a small lump under the areaof her right thigh that was slowly getting enlarged therefore she decided to come in forfurther evaluation before got that hand. Vital signs on presentation showed temperature 98.8, heartrate 125, respiratory 22, blood pressure was 180/98 and pulse ox was 99% room air. CBC on presentation was unimpressive however she did have a left shift with an 82% neutrophilia. Chemistry panel show ed hyponatremia with a sodium of 129 however blood sugar [id number] consistent with pseudohyponatremia due to hyperglycemia. Her chloride was low at 94, serum bicarb was 16.4 and anion gap was 19. The beta-hydroxybutyratewas assessed and found to be slightly elevated at 2.6. Patient did not have symptoms consistent with DKA and a blood gas was obtained and she was alkalotic. She had not been eating so it suspected that this may be a starvation ketosis. A CRP was obtained and found to be 121. She was admitted to medical floor and placed on broad- spectrum antibiotics. An A1c was obtained and found to be 13.8. I highly suspect patient has not been super compliant with her insulin at home. She did state that her fasting sugars had been 120-130 but she creeped up throughout the day. I am not sure that this is consistent with what we are seeing clinically. On day 2 of her hospitalization she was complaining of more pain in the area that was assessed. It appeared that the indurated area had cometo ahead and there was subcutaneous pus. General surgery was consulted andan I&D was performed.Cultures were sent from the abscess. Cultures at the time of discharge showed group B strep as wellas alphahemolytic strep. On day 3 of her hospitalization she had some worsening of pain and erythematous extension from the area of I&D so ID was consulted she was maintained on Vanco and Zosyn which she was started on admission.. By day 4 of her hospitalization she was feeling much better withonly mild tenderness in that area. Recommendation to discharge her antibiotics were Augmentin for total of 10 days from the day of her I&D. She was sent home with 7 more days of Augmentin. She and I discussed extensively her hyperglycemia and its role in recurrent infections. She is agreeable to follow-up with endocrinology. I did give her Dr. Ambrosio Marques's information and the plan is to follow-up with her as an outpatient after discharge. She is to call tomorrow to set up an appointment. Herblood pressure was also somewhat elevated so we did increase her lisinopril from 5 mg to 10 mg daily. Prescriptions for her med changes and antibiotics were sent to the local pharmacy prior to discharge. Patient was discharged homein stable condition with wound care instructions at the time of discharge. She is to follow-up with Dr. Cam from general surgery within 2 weeks, primary carephysicianas needed, and Dr. Marques as soon as Dr. Marques has availability. Discharge diagnoses: Cellulitis/abscess of the perineum secondary to group B strep/alphahemolytic strep Low serum bicarb-resolved Elevated nleg-vrbznsqgjyyiejf-dbizqza related to starvation ketosis Uncontrolled DM-A1c 13.8 Essential hypertension Hyperlipidemia Neuropathy Obesity Physical Exam Const alert, oriented x3, no apparent distress, no limitations and well nourished; Negative for average body habitus or healthy appearing Constitutional Narrative: Obese, middle-aged, white female, sitting up in bed, appears comfortable, nontoxic, very pleasant, watching television General Appearance: cooperative, comfortable, well kempt and well developed Exam Limitations: no limitations Nutritional Appearance: obese HEENT normocephalic, head/scalp atraumatic, hearing grossly normal bilaterally and moist oral mucous membranes HEENT Narrative: Mallampati 3, no thrush Eyes EOMs intact bilaterally Eyes Narrative: No scleral icterus Neck supple Neck Narrative: Trachea midline Resp normal respiratory effort, normal air movement, no retractions, no use of accessory muscles and clear to auscultation bilaterally Auscultation: Negative for crackles, rhonchi or wheezes Cardio regular rate, regular rhythm, S1 normal heart sound, S2 normal heart sound, no murmurs, no rub, no gallops and no clicks GI normal to inspection, nondistended, normoactive bowel sounds, soft to palpation and non-tender Extremity no clubbing, cyanosis or edema Extremity Narrative: Pedal and radial pulses are 2+ Skin No no wounds and no jaundice Skin Narrative: Right thigh/buttocks area with improved, no significant drainage from the area of I&D, mild erythema but no induration and significant retraction from outlinedarea, decreased tenderness Neuro moves all extremities and no focal motor deficits Speech: speech normal Psych mental status grossly normal and affect normal Psych Narrative: Very pleasant, interacts appropriately Weight / BMI Weight Weight: 105.596 kg Body Mass Index (BMI) 35.4 ABG / Lab / Microbiology Data 08/15/25 05:57 08/15/25 05:57 Laboratory: Laboratory Results - last 24 hr 08/14/25 16:14: POC Glucose 120 H 08/14/25 17:08: Vancomycin Trough 21.9 H 08/14/25 22:39: POC Glucose 191 H 08/15/25 00:55: Random Vancomycin 15.6 H 08/15/25 05:57: WBC 6.0, RBC 4.03 L, Hgb 11.8 L, Hct 34.8 L, MCV 86.4, MCH 29.3,MCHC 33.9, RDW Std Deviation 41.6, RDW Coeff of Meet 13.2, Plt Count 204, MPV 11.0, Immature Gran % (Auto) 0.500, Neut %(Auto) 69.0, Lymph % (Auto) 18.5 L, Fulton % (Auto) 8.8, Eos % (Auto) 2.7, Baso % (Auto) 0.5, Absolute Neuts (auto) 4.2, Absolute Lymphs (auto) 1.11, Nucleated RBC % 0, Sodium 139, Potassium 3.6, Chloride 107, Carbon Dioxide 22.8, Anion Gap 9, BUN 10, Creatinine 1.13, Estim Creat Clear Calc 79.97, Est GFR (MDRD) Non-Af 61, BUN/Creatinine Ratio 8.5 L, Glucose 140 H, Calcium 8.5 08/15/25 08:07: POC Glucose 110 H Microbiology: Microbiology 08/12/25 18:20 Abs - Buttock Gram Stain - Final 08/12/25 18:20 Abs - Buttock Wound Culture - Preliminary Streptococcus group B Alpha hemolytic organism 08/12/25 18:20 Abs - Buttock Anaerobic Culture - Preliminary Checking for anaerobes, further studies to follow. D/C Instructions Discharge Activity: Return to Normal Activity Return to work on: 08/16/25 DC O2, CPAP, BIPAP Needs Home O2 Discharge instructions: No DC home with Oxygen: No Meaningful Use Info Meaningful Use Meaningful Use Diagnoses (Choose all that apply): None applicable Discharge Plan Admission Admit Date/Time: 08/11/25 18:20 Primary Reason for Your Visit: Abscess Attending Provider: Chantel Hand Primary Care Provider: Joaquin Huitron Consulting Providers: Elias Barahona; Werner Cam; Fran Daley Instructions Additional Instructions / Restrictions: Recommend continuing to keep the open wound covered until completely closed Change dressing daily May leave dressing off to shower Follow-up with Dr. Cam or Grace Piña in 7-10 days [address] Please call Dr. Marques's office to set up an appointment as an outpatient to be seen a soon as possible 2. Please complete antibiotics as ordered. Encourage probiotics or yogurt intake to prevent antibiotic associated diarrhea Discharge Orders/Prescriptions Prescriptions: New oxycodone 5 mg Tablet 5 mg PO Q4H PRN PRN (Reason: Pain Score 4-10) 3 Days Qty: 18 0RF amoxicillin-pot clavulanate 875-125 mg tablet 1 tab PO BID Qty: 14 0RF lisinopril 10 mg Tablet 10 mg PO DAILY Qty: 30 2RF Discontinued lisinopril 5 mg tablet 5 mg PO DAILY No Action insulin lispro [Humalog KwikPen Insulin] 100 unit/mL insulin pen 44 unit SUBCUT TID Patient Comments: INJECT 44 UNITS SUBCUTANEOULSY WITH MEALS insulin glargine [Basaglar KwikPen U-100 Insulin] 100 unit/mL (3 mL) insulin pen 66 unit SUBCUT BID Patient Comments: INJECT 40 UNITS SUBCUTANEOUSLY TWICE DAILY atorvastatin 10 mg tablet 10 mg PO QHS ropinirole 0.5 mg tablet 1.5 mg PO QHS insulin degludec [Tresiba FlexTouch U-100] 100 unit/mL (3 mL) insulin pen 64 unit subcut BID Referrals / Follow Up: Joaquin Huitron MD [Primary Care Provider, Family Practice] - See Referral Note Referral Note: As needed Werner Cam MD [Med Staff - Active Staff, General Surgery] - 08/22/25 Ambrosio Marques MD [Med Staff - Courtesy Staff, Endocrinology] - See Referral Note Referral Note: Call for appointment to be seen as soon as possible Disposition Disposition (needs filled in before D/C Order can be placed): Home, Self Care Charges/Coding Visit Charges Inpatient E&M: 72348 Disch Hosp >30min 08/15/25 1228 Cosigner Signature (if applicable): CC: Dr. Joaquin Huitron MD; Dr. Chantel Hand DO; Dr. Werner Cam MD; Ambrosio Marques MD~ Signed [facility]10-09-2025 [facility] Medical Records Department [address] [place] [address] Discharge Summary 08/15/25 1208 MR#: [id number] Acct: [id number] Name: TRICE ZAMBRANO Rep #: [id number] : 1980 45 From: Chantel Hand DO PCP: Dr. Joaquin Huitron MD Status:ADM IN Location: [place] [address] Providers Date of Admission: 08/11/25 Date of Discharge: 08/15/25 Primary Care Physician: Dr. Joaquin Huitron MD Consultations 08/12/25 16:36 Consult: General Surgery Routine Consulting Provider: Werner Cam Reason for Consult: R Leg abscess needs I/D EMERGENT Consult: No Notified: Yes Date Notified: 08/12/25 Time Notified: 16:36 Method of Notification: Verbal 08/14/25 10:20 Consult: Infectious Disease Routine Consulting Provider: Fran Daley Reason for Consult: abscess EMERGENT Consult: No Notified: Yes Date Notified: 08/14/25 Time Notified: 10:47 Method of Notification: Text Reason For Visit: RIGHT PERIANAL CELLULITIS Diagnosis Discharge Diagnosis (1) Abscess: Status: Acute Code(s): L02.91 - Cutaneous abscess, unspecified Medications at Discharge Home Medications insulin glargine 100 unit/mL (3 mL) subcutaneous pen (Basaglar KwikPen U-100 Insulin) 66 unit subcut BID diabetes 04/23/21 insulin lispro 100 unit/mL subcutaneous pen (Humalog KwikPen (U-100) Insulin) 44 unit subcut TID 04/23/21 atorvastatin 10 mg tablet 10 mg PO QHS 09/14/21 ropinirole 0.5 mg tablet 1.5 mg PO QHS nerve pain 09/16/24 insulin degludec 100 unit/mL (3 mL) subcutaneous pen (Tresiba FlexTouch U-100 insulin) 64 unit subcut BID 08/11/25 amoxicillin 875 mg-potassium clavulanate 125 mg tablet 1 tab PO BID #14 tabs 08/15/25 lisinopril 10 mg tablet 10 mg PO DAILY #30 tabs 08/15/25 oxycodone 5 mg tablet 5 mg PO Q4H PRN PRN Pain Score 4-10 3 days #18 tabs 08/15/25 Hospital Course Operations - (I D of right thigh abscess) Procedures - (CT abdomen and pelvis) Summary of Care Provided Minutes Spent on Discharge: 38 Hospital Course: Ms. Zambrano is a 45-year-old white female who presented to the emergency department at [facility] on 08/11/2025 for recurrent perineal abscess/infection. Patient has a significant medical history of diabetes that is not well-controlled as well as perineal cellulitis with history of necrotizing fasciitis to the buttocks in 2020. She had extensive debridement at that time which resulted needing colostomy. That has been reversed. She again was hospitalized at this institution in September 2024 with another infection. Patient noted the day prior to presentation she felt a small lump under the area of her right thigh that was slowly getting enlarged therefore she decided to come in for further evaluation before got that hand. Vital signs on presentation showed temperature 98.8, heart rate 125, respiratory 22, blood pressure was 180/98 and pulse ox was 99% room air. CBC on presentation was unimpressive however she did have a left shift with an 82% neutrophilia. Chemistry panel showed hyponatremia with a sodium of 129 however blood sugar was 527 consistent with pseudohyponatremia due to hyperglycemia. Her chloride was low at 94, serum bicarb was 16.4 and anion gap was 19. The beta-hydroxybutyrate was assessed and found to be slightly elevated at 2.6. Patient did not have symptoms consistent with DKA and a blood gas was obtained and she was alkalotic. She had not been eating so it suspected that this may be a starvation ketosis. A CRP was obtained and found to be 121. She was admitted to medical floor and placed on broad- spectrum antibiotics. An A1c was obtained and found to be 13.8. I highly suspect patient has not been super compliant with her insulin at home. She did state that her fasting sugars had been 120- 130 but she creeped up throughout the day. I am not sure that this is consistent with what we are seeing clinically. On day 2 of her hospitalization she was complaining of more pain in the area that was assessed. It appeared that the indurated area had come to ahead and there was subcutaneous pus. General surgery was consulted and an I D was performed. Cultures were sent from the abscess. Cultures at the time of discharge showed group B strep as well as alphahemolytic strep. On day 3 of her hospitalization she had some worsening of pain and erythematous extension from the area of I D so ID was consulted she was maintained on Vanco and Zosyn which she was started on admission.. By day 4 of her hospitalization she was feeling much better with only mild tenderness in that area. Recommendation to discharge her antibiotics were Augmentin for total of 10 days from the day of her I D. She was sent home with 7 more days of Augmentin. She and I discussed extensively her hyperglycemia and its role in recurrent infections. She is agreeable to follow- up with endocrinology (more content not included)...[facility]10-09-2025 Progress note [facility] Medical Records Department [address] [place] [address] Progress Note - Surgery 08/15/25 1107 MR#: [id number] Acct: [id number] Name: TRICE ZAMBRANO Rep #:[id number] : 1980 45 From: Werner Acosta PCP: Dr. Joaquin Huitron MD Status :ADM IN Location: [facility] RF696-2 Subjective Subjective Patient seen and examined during AM rounds. She is found resting in bed. She states that she has been set up for discharge to home. She reports that her pain is improved and her redness seems to be receding. She was only able to do 1 shower since our I&D procedure as she pulled her peripheral IV access with that shower. Objective Data Objective Data Vital Signs: Vital Signs Temp Pulse Resp BP Pulse Ox O2 Del Method 98.4 F 95 20 H 143/76 H 100 Room Air 08/15/25 10:58 08/15/25 10:58 08/15/25 10:58 08/15/25 10:58 08/15/25 10:58 08/15/25 10:58 Oxygen Delivery Method Room Air Weight: 232 lb 12.8 oz Body Mass Index (BMI) 35.4 Intake & Output: Intake and Output for Last 24 Hours 08/13/25 08/14/25 08/15/25 23:59 23:59 23:59 Intake Total 1327 / 1567 1170 / 1170 375 / 375 Balance 1327 / 1567 1170 / 1170 375 / 375 Lab / Micro Data 08/15/25 05:57 08/15/25 05:57 Labs: Laboratory Results - last 24 hr 08/14/25 11:23: POC Glucose 126 H 08/14/25 16:14: POC Glucose 120 H 08/14/25 17:08: Vancomycin Trough 21.9 H 08/14/25 22:39: POC Glucose 191 H 08/15/25 00:55: Random Vancomycin 15.6 H 08/15/25 05:57: WBC 6.0, RBC 4.03 L, Hgb 11.8 L, Hct 34.8 L, MCV 86.4, MCH 29.3,MCHC 33.9, RDW Std Deviation 41.6, RDW Coeff of Meet 13.2, Plt Count 204, MPV 11.0, Immature Gran % (Auto) 0.500, Neut %(Auto) 69.0, Lymph % (Auto) 18.5 L, Fulton % (Auto) 8.8, Eos % (Auto) 2.7, Baso % (Auto) 0.5, Absolute Neuts (auto) 4.2, Absolute Lymphs (auto) 1.11, Nucleated RBC % 0, Sodium 139, Potassium 3.6, Chloride 107, Carbon Dioxide 22.8, Anion Gap 9, BUN 10, Creatinine 1.13, Estim Creat Clear Calc 79.97, Est GFR (MDRD) Non-Af 61, BUN/Creatinine Ratio 8.5 L, Glucose 140 H, Calcium 8.5 08/15/25 08:07: POC Glucose 110 H Micro: Microbiology 08/12/25 18:20 Abs - Buttock Gram Stain - Final 08/12/25 18:20 Abs - Buttock Wound Culture - Preliminary Streptococcus group B Alpha hemolytic organism 08/12/25 18:20 Abs - Buttock Anaerobic Culture - Preliminary Checking for anaerobes, further studies to follow. Physical Exam Const oriented x3 and no apparent distress Resp normal respiratory effort Extremity Extremity Narrative: Persistent inflammatory change to right posterior thigh with a woodiness to the tissue and some jluiet-incisional induration. The area of erythema does appear receded from marking delineating the furthest reach as of this erythema yesterday. The I&D site remains draining with some adherent exudative material. It is probed and there is no further evidence of loculated fluid collections. 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 Abscess was drained at bedside 3 days agoand continues to display slow incremental improvements. Apparently there was more erythema yesterday but this appears receded from the delineated markings. Cultures fromdrainage procedure showing alphahemolytic strep. ID engaged. Today cavity was probed and I do not identify any undrained collections. However, given patient's history and the slow resolution to date I am recommending outpatient follow-up for wound check with our office in the next week and a half. Patient is also encouraged to keep an eye to her blood sugars. Werner Cam MD General Surgery Endocrine Surgery Pager: [facility] [address] [place] [address], [address] [place] [address] Office: [phone] Charges/Coding Visit Charges Inpatient E&M: 99231 Subs Hosp L2 08/15/25 1112 Cosigner Signature (if applicable): CC: ~ Signed [facility]10-09-2025 Progress note [facility] Medical Records Department [address] [place] [address] Progress Note - Infect Disease 08/15/25 1031 MR#: [id number] Acct: [id number] Name: TRICE ZAMBRANO Rep #:[id number] : 1980 45 From: Fran menendez MD PCP: Dr. Joaquin Huitron MD Status :ADM IN Location: [facility] HC956-2 Physical Exam Narrative Feeling better, less pain, mild nausea, no fever, no diarrhea Const alert and no apparent distress General Appearance: cooperative Resp normal air movement and clear to auscultation bilaterally Cardio regular rate and regular rhythm GI soft to palpation, non-tender and non-distended Skin Skin Narrative: much improved erythema ID ID: Route of nutrition/ use of supplements: [] Nutritional Intake: [] IV Site: [] Mckeon Catheter: [] Assessment & Plan Assessment/Plan (1) Elevated beta-hydroxybutyrate: (2) Diabetes mellitus type 1: QUALIFIERS: Diabetes mellitus complication status: with other specified complication Qualified Code(s): E10.69 - Type 1 diabetes mellitus with other specified complication (3) Cutaneous abscess of perineum: PLAN: At risk for recurrent infections due to uncontrolled DM, a1c is 13.8, glucose was 527 on admit. Now s/p I&D, wound cx with strep so far. On vanc/zosyn, much improved on exam. Ok for discharge with one week po augmentin 875mg bid for 10 days total abx from her I&D. For care home prevention, will need glucose control. Will follow 08/15/25 1033 Cosigner Signature (if applicable): CC: ~ Signed [facility]10-09-2025 Consult note Author Myles Bermeo [facility] Note Date/Time August 15, 2025 1: 53am [facility] Medical Records Department [address] [place] [address] Pharmacokinetic/Renal -Consult 08/15/25 0151 MR#: [id number] Acct: [id number] Name: TRICE ZAMBRANO Rep #:[id number] : 1980 45 From: Myles Bermeo PCP: Dr. Joaquin Huitron MD Status :ADM IN Y Location: [place] [id number] Consult Antibiotic Management Pharmacy has been consulted to manage selected antibiotic: Vancomycin Type of Intervention Type of Consult: Follow-up Suspected Infection Suspected Infection: Skin/Soft tissue Labs Labs: Sodium 135 mmol/L (133-145) 08/13/25 06:00 Potassium 3.4 mmol/L (3.3-5.1) 08/13/25 06:00 Chloride 107 mmol/L (98-108) 08/13/25 06:00 Carbon Dioxide 17.9 mmol/L (21.0-32.0) L 08/13/25 06:00 Anion Gap 10 (5-15) 08/13/25 06:00 BUN 9 mg/dL (4-19) 08/13/25 06:00 Creatinine 0.86 mg/dL (0.70-1.20) 08/13/25 06:00 Est GFR (MDRD) Non-Af 84 (>60) 08/13/25 06:00 BUN/Creatinine Ratio 11.0 RATIO (10-20) 08/13/25 06:00 Glucose 196 mg/dL (70-99) H 08/13/25 06:00 Vancomycin Trough 21.9 ug/mL (5.0-15.0) H 08/14/25 17:08 Random Vancomycin 15.6 ug/mL (0.0-15.0) H 08/15/25 00:55 Microbiology Microbiology: Microbiology 08/12/25 18:20 Abs - Buttock Gram Stain - Final 08/12/25 18:20 Abs - Buttock Wound Culture - Preliminary Streptococcus group B Alpha hemolytic organism Dosing Weight Weight used for dosin kg Estimated Creatinine Clearance Estimated Creatinine Clearance: 105 Goal Trough Goal Trough: 15-20 mcg/mL Pharmacy Plan for Drug Dosing Pharmacy Plan for Drug Dosing: Random vancomycin level fell back to therapeutic level, at 15.6. This was 14.6hrs since the last dose. Per dosing calculator, a new dose of 1250mg q12hrs will give an estimated new trough of 16.5. Will initiate now and draw a trough level prior to fourth dose of the new regimen. Pharmacy Service will continue to monitor and adjust dosing as required. Follow-Up Labs Follow-Up Labs: Trough: Vancomycin Date/Time Labs Ordered Labs to be done on [date and time ordered]: 08/16/25 @1330 08/15/25 0153 <Electronically signed by Myles sauceda> Date _ Myles Hall Signature (if applicable): Date CC: ~ Signed [facility] Work Phone: 1(375) 738-417810-09-2025 Consult note [facility] Medical Records Department [address] [place] [address] Pharmacokinetic/Renal -Consult 08/15/25 0151 MR#: [id number] Acct: [id number] Name: TRICE ZAMBRANO Rep #:[id number] : 1980 45 From: Myles Bermeo PCP: Dr. Joaquin Huitron MD Status :ADM IN Location: [place] [id number] Consult Antibiotic Management Pharmacy has been consulted to manage selected antibiotic: Vancomycin Type of Intervention Type of Consult: Follow-up Suspected Infection Suspected Infection: Skin/Soft tissue Labs Labs: Sodium 135 mmol/L (133-145) 08/13/25 06:00 Potassium 3.4 mmol/L (3.3-5.1) 08/13/25 06:00 Chloride 107 mmol/L (98-108) 08/13/25 06:00 Carbon Dioxide 17.9 mmol/L (21.0-32.0) L 08/13/25 06:00 Anion Gap 10 (5-15) 08/13/25 06:00 BUN 9 mg/dL (4-19) 08/13/25 06:00 Creatinine 0.86 mg/dL (0.70-1.20) 08/13/25 06:00 Est GFR (MDRD) Non-Af 84 (>60) 08/13/25 06:00 BUN/Creatinine Ratio 11.0 RATIO (10-20) 08/13/25 06:00 Glucose 196 mg/dL (70-99) H 08/13/25 06:00 Vancomycin Trough 21.9 ug/mL (5.0-15.0) H 08/14/25 17:08 Random Vancomycin 15.6 ug/mL (0.0-15.0) H 08/15/25 00:55 Microbiology Microbiology: Microbiology 08/12/25 18:20 Abs - Buttock Gram Stain - Final 08/12/25 18:20 Abs - Buttock Wound Culture - Preliminary Streptococcus group B Alpha hemolytic organism Dosing Weight Weight used for dosin kg Estimated Creatinine Clearance Estimated Creatinine Clearance: 105 Goal Trough Goal Trough: 15-20 mcg/mL Pharmacy Plan for Drug Dosing Pharmacy Plan for Drug Dosing: Random vancomycin level fell back to therapeutic level, at 15.6. This was 14.6hrs since the last dose. Per dosing calculator, a new dose of 1250mg q12hrs will give an estimated new trough of 16.5. Will initiate now and draw a trough level prior to fourth dose of the new regimen. Pharmacy Service will continue to monitor and adjust dosing as required. Follow-Up Labs Follow-Up Labs: Trough: Vancomycin Date/Time Labs Ordered Labs to be done on [date and time ordered]: 08/16/25 @1330 08/15/25 0153 ds> Date _ Myles Hall Signature (if applicable): Date CC: ~ Signed [facility]10-08-2025 Consult note Author Aftab Berg [facility] Note Date/Time August 14, 2025 7: 30pm [facility] Medical Records Department [address] [address] Pharmacokinetic/Renal -Consult 08/13/25 1711 MR#: [id number] Acct: [id number] Name: TRICE ZAMBRANO Rep #:[id number] : 1980 45 From: Aftab perry PCP: Dr. Joaquin Huitron MD Status :ADM IN Location: [place] [id number] Consult Antibiotic Management Pharmacy has been consulted to manage selected antibiotic: Vancomycin Type of Intervention Type of Consult: Follow-up Suspected Infection Suspected Infection: Skin/Soft tissue Prior Doses of Antibiotics Prior Doses of Antibiotics Received/Current Regimen: current dose is vanc 1250mg IV q8h Labs Labs: Sodium 135 mmol/L (133-145) 08/13/25 06:00 Potassium 3.4 mmol/L (3.3-5.1) 08/13/25 06:00 Chloride 107 mmol/L (98-108) 08/13/25 06:00 Carbon Dioxide 17.9 mmol/L (21.0-32.0) L 08/13/25 06:00 Anion Gap 10 (5-15) 08/13/25 06:00 BUN 9 mg/dL (4-19) 08/13/25 06:00 Creatinine 0.86 mg/dL (0.70-1.20) 08/13/25 06:00 Est GFR (MDRD) Non-Af 84 (>60) 08/13/25 06:00 BUN/Creatinine Ratio 11.0 RATIO (10-20) 08/13/25 06:00 Glucose 196 mg/dL (70-99) H 08/13/25 06:00 Vancomycin Trough 19.2 ug/mL (5.0-15.0) H 08/13/25 16:14 Microbiology Microbiology: Microbiology 08/12/25 18:20 Abs - Buttock Gram Stain - Final Dosing Weight Weight used for dosin.6 kg Estimated Creatinine Clearance Estimated Creatinine Clearance: 105 ml/min Goal Trough Goal Trough: 15-20 mcg/mL Pharmacy Plan for Drug Dosing Pharmacy Plan for Drug Dosing: The vanc trough drawn at 16:14 (approx 8 hours after the previous dose) was 19.2mcg/ml. This is still in range but at the very top of the range. It was at 16 mcg/ml yesterday at the same dose. Very likely the trough will keep rising above goal range so will decrease dose to 1000mg IV q8h. Repeat a trough level before the 4th dose tomorrow. Of note, the patient's SCr did go up slightly to 0.86 today from 0.69 yesterday. Pharmacy Service will continue to monitor and adjust dosing as required. Follow-Up Labs Follow-Up Labs: Trough: Vancomycin Date/Time Labs Ordered Labs to be done on [date and time ordered]: 08/14/25 17:00 08/13/25 1716 <Electronically signed by Aftab Dale erg> Date _ Aftab Berg 08/14/25 193 <Electronically signed by Chantel Mosqueda> Cosigner Signature (if applicable): Date Chantel Hand DO CC: ~ Signed [facility] Work Phone: 1([phone] 547-868510-08-2025 Consult note Author Radha Hernandez [facility] Note Date/Time August 14, 2025 6: 58pm [facility] Medical Records Department [address] [place] [address] Pharmacokinetic/Renal -Consult 08/14/25 1857 MR#: [id number] Acct: [id number] Name: TRICE ZAMBRANO Rep #:[id number] : 1980 45 From: Radha Hernandez PCP: Dr. Joaquin Huitron MD Status :ADM IN Location: [place] [address] Consult Antibiotic Management Pharmacy has been consulted to manage selected antibiotic: Vancomycin Type of Intervention Type of Consult: Follow-up Labs Labs: Sodium 135 mmol/L (133-145) 08/13/25 06:00 Potassium 3.4 mmol/L (3.3-5.1) 08/13/25 06:00 Chloride 107 mmol/L (98-108) 08/13/25 06:00 Carbon Dioxide 17.9 mmol/L (21.0-32.0) L 08/13/25 06:00 Anion Gap 10 (5-15) 08/13/25 06:00 BUN 9 mg/dL (4-19) 08/13/25 06:00 Creatinine 0.86 mg/dL (0.70-1.20) 08/13/25 06:00 Est GFR (MDRD) Non-Af 84 (>60) 08/13/25 06:00 BUN/Creatinine Ratio 11.0 RATIO (10-20) 08/13/25 06:00 Glucose 196 mg/dL (70-99) H 08/13/25 06:00 Vancomycin Trough 21.9 ug/mL (5.0-15.0) H 08/14/25 17:08 Microbiology Microbiology: Microbiology 08/12/25 18:20 Abs - Buttock Gram Stain - Final 10/06/25 18:20 Abs - Buttock Wound Culture - Preliminary Streptococcus group B Alpha hemolytic organism Goal Trough Goal Trough: 15-20 mcg/mL Pharmacy Plan for Drug Dosing Pharmacy Plan for Drug Dosing: VANCOMYCIN LEVEL RECEIVED Current Vancomycin Dose: 1000mg IV Q8h Number of Doses Received: 3 (of current regimen) Vancomycin Level: 21.9 Hours Since Last Dose: 7hr Renal Function: scr 0.86/ crcl 105 ml/min Renal Function Trend: stable Lab/Micro: wcx growing strep spp Vancomycin Plan/Comments: patient had a trough drawn which resulted in a value of 21.9 (goal 15-20). the patient's trough is above goal, will hold subsequent doses and resume vancomycin once trough level is below 20. Pending Level: *Random* 08/15/25 @0100, 8hrs from last trough draw Pharmacy Service will continue to monitor and adjust dosing as required. 08/14/25 3894 <Electronically signed by Radha Hernandez > Date _ Radha Hernandez Cosigner Signature (if applicable): Date CC: ~ Signed [facility] Work Phone: 1([phone]) 990-813410-08-2025 Consult note [facility] Medical Records Department [address] [place] [address] Pharmacokinetic/Renal -Consult 08/13/25 1711 MR#: [id number] Acct: [id number] Name: TRICE ZAMBRANO Rep #:[id number] : 1980 45 From: Aftab perry PCP: Dr. Joaquin Huitron MD Status :ADM IN Location: [place] 494381-1 Consult Antibiotic Management Pharmacy has been consulted to manage selected antibiotic: Vancomycin Type of Intervention Type of Consult: Follow-up Suspected Infection Suspected Infection: Skin/Soft tissue Prior Doses of Antibiotics Prior Doses of Antibiotics Received/Current Regimen: current dose is vanc 1250mg IV q8h Labs Labs: Sodium 135 mmol/L (133-145) 08/13/25 06:00 Potassium 3.4 mmol/L (3.3-5.1) 08/13/25 06:00 Chloride 107 mmol/L (98-108) 08/13/25 06:00 Carbon Dioxide 17.9 mmol/L (21.0-32.0) L 08/13/25 06:00 Anion Gap 10 (5-15) 08/13/25 06:00 BUN 9 mg/dL (4-19) 08/13/25 06:00 Creatinine 0.86 mg/dL (0.70-1.20) 08/13/25 06:00 Est GFR (MDRD) Non-Af 84 (>60) 08/13/25 06:00 BUN/Creatinine Ratio 11.0 RATIO (10-20) 08/13/25 06:00 Glucose 196 mg/dL (70-99) H 08/13/25 06:00 Vancomycin Trough 19.2 ug/mL (5.0-15.0) H 08/13/25 16:14 Microbiology Microbiology: Microbiology 08/12/25 18:20 Abs - Buttock Gram Stain - Final Dosing Weight Weight used for dosin.6 kg Estimated Creatinine Clearance Estimated Creatinine Clearance: 105 ml/min Goal Trough Goal Trough: 15-20 mcg/mL Pharmacy Plan for Drug Dosing Pharmacy Plan for Drug Dosing: The vanc trough drawn at 16:14 (approx 8 hours after the previous dose) was 19.2mcg/ml. This is still in range but at the very top of the range. It was at 16 mcg/ml yesterday at the same dose. Very likely the trough will keep rising above goal range so will decrease dose to 1000mg IV q8h. Repeat a trough level before the 4th dose tomorrow. Of note, the patient's SCr did go up slightly to 0.86 today from 0.69 yesterday. Pharmacy Service will continue to monitor and adjust dosing as required. Follow-Up Labs Follow-Up Labs: Trough: Vancomycin Date/Time Labs Ordered Labs to be done on [date and time ordered]: 08/14/25 17:00 08/13/25 1716 erg> Date _ Aftab Berg 08/14/25 1930 O> Cosigner Signature (if applicable): Date Chantel Hand DO CC: ~ Signed [facility]10-08-2025 Consult note [facility] Medical Records Department [address] [place] [address] Pharmacokinetic/Renal -Consult 08/14/25 1857 MR#: [id number] Acct: [id number] Name: TRICE ZAMBRANO Rep #:[id number] : 1980 45 From: Radha Hernandez PCP: Dr. Joaquin Huitron MD Status :ADM IN Location: [place] [address] Consult Antibiotic Management Pharmacy has been consulted to manage selected antibiotic: Vancomycin Type of Intervention Type of Consult: Follow-up Labs Labs: Sodium 135 mmol/L (133-145) 08/13/25 06:00 Potassium 3.4 mmol/L (3.3-5.1) 08/13/25 06:00 Chloride 107 mmol/L (98-108) 08/13/25 06:00 Carbon Dioxide 17.9 mmol/L (21.0-32.0) L 08/13/25 06:00 Anion Gap 10 (5-15) 08/13/25 06:00 BUN 9 mg/dL (4-19) 08/13/25 06:00 Creatinine 0.86 mg/dL (0.70-1.20) 08/13/25 06:00 Est GFR (MDRD) Non-Af 84 (>60) 08/13/25 06:00 BUN/Creatinine Ratio 11.0 RATIO (10-20) 08/13/25 06:00 Glucose 196 mg/dL (70-99) H 08/13/25 06:00 Vancomycin Trough 21.9 ug/mL (5.0-15.0) H 08/14/25 17:08 Microbiology Microbiology: Microbiology 08/12/25 18:20 Abs - Buttock Gram Stain - Final 08/12/25 18:20 Abs - Buttock Wound Culture - Preliminary Streptococcus group B Alpha hemolytic organism Goal Trough Goal Trough: 15-20 mcg/mL Pharmacy Plan for Drug Dosing Pharmacy Plan for Drug Dosing: VANCOMYCIN LEVEL RECEIVED Current Vancomycin Dose: 1000mg IV Q8h Number of Doses Received: 3 (of current regimen) Vancomycin Level: 21.9 Hours Since Last Dose: 7hr Renal Function: scr 0.86/ crcl 105 ml/min Renal Function Trend: stable Lab/Micro: wcx growing strep spp Vancomycin Plan/Comments: patient had a trough drawn which resulted in a value of 21.9 (goal 15-20). the patient's trough is above goal, will hold subsequent doses and resume vancomycin once trough level is below 20. Pending Level: *Random* 08/15/25 @0100, 8hrs from last trough draw Pharmacy Service will continue to monitor and adjust dosing as required. 08/14/25 1858 > Date _ [facility] Cosign Signature (if applicable): Date CC: ~ Signed [facility]10-08-2025 Progress note Author Grace Piña [facility] Note Date/Time August 14, 2025 3: 20pm [facility] Medical Records Department [address] [place] [address] Progress Note - Surgery 08/14/25 0745 MR#: [id number] Acct: [id number] Name: TRICE ZAMBRANO Rep #:[id number] : 1980 45 From: Grace JOE PA-C PCP: Dr. Joaquin Huitron MD Status :ADM IN Location: [place] [address]-1 Subjective Subjective Patient evaluated this morning. She notes not having a very good night sleep. She notes being painful all night. She notes the pressure has resolved, however she is noting that the pain is extending into her right inner thigh. She notes the oxy takes the edge off of the pain and was trying to avoid IV pain medication in hopes of going home, however she feels she may benefit from something stronger. Objective Data Objective Data Vital Signs: Vital Signs Temp Pulse Resp BP Pulse Ox O2 Del Method 98.7 F 95 16 148/87 H 98 Room Air 08/14/25 02:54 08/14/25 02:54 08/14/25 02:54 08/14/25 02:54 08/14/25 02:54 08/14/25 02:54 Oxygen Delivery Method Room Air Weight: 232 lb 12.8 oz Body Mass Index (BMI) 35.4 Intake & Output: Intake and Output for Last 24 Hours 08/12/25 08/13/25 08/14/25 23:59 23:59 23:59 Intake Total 2575 / 2575 1327 / 1567 560 / 560 Balance 2575 / 2575 1327 / 1567 560 / 560 Lab / Micro Data 08/13/25 06:00 08/13/25 06:00 Labs: Laboratory Results - last 24 hr 08/13/25 11:06: POC Glucose 186 H 08/13/25 16:00: POC Glucose 140 H 08/13/25 16:14: Vancomycin Trough 19.2 H 08/13/25 21:24: POC Glucose 187 H 08/14/25 06:22: POC Glucose 153 H Micro: Microbiology 08/12/25 18:20 Abs - Buttock Gram Stain - Final Physical Exam Skin Skin Narrative: Right posterior thigh- Open wound draining purulent material. Gauze was changed.During examination it appears patient's erythema has extended into her medial middle thigh region. This was not noted yesterday. The area is warm. She notes the whole area is tender/sore. Multiple 2 x 2's were applied and secured with medipore tape. Assessment & Plan Assessment/Plan (1) Abscess: (2) Cellulitis of perineum: (3) Diabetes mellitus type 1: QUALIFIERS: Diabetes mellitus complication status: with other specified complication Qualified Code(s): E10.69 - Type 1 diabetes mellitus with other specified complication PLAN: Plan I am following this patient in conjunction with Dr. Solo in Dr. Cam's absence. He will independently evaluate this patient. Labs pending New extension of erythema into right medial thigh that was not noted yesterday Patient has a history of necrotizing fasciitis in 2020 and diabetes Current antibiotics are Zosyn and Vanco Culture preliminary demonstrates Strep group B and Alpha hemolytic organism Recommend infectious disease input/consult Patient would benefit from another day of admission with IV antibiotics and re-evaluate tomorrow for discharge We will continue to monitor this patient Charges/Coding Visit Charges Inpatient E&M: 73402 Subs Hosp L2 08/14/25 1002 <Electronically signed by Grace JOE PA-C> Cosigner Signature (if applicable): CC: ~ Signed ADDENDUM by Dr. Tristin Solo MD on 08/14/25 at 1520 Addendum Patient seen and evaluated on rounds this afternoon. Agree with assessment and plan as outlined by TATYANA Hopper Patient states that she is doing reasonably well but is still having pain in therecent I&D site. She underwent incision and drainage in the operating room lastevening with Dr. Cam. Patient complaining of pain involving the medial thigh which is new today, and there does appear to be some increasing erythema extending downward along the inner thigh. There is no areas of fluctuance in this vicinity. Dressing is clean dry and intact. I could not express any purulent drainage. Recommend continued IV antibiotics and dressing changes. Will continue to monitor her wound closely as she does have a history of necrotizing fasciitis and would certainly benefit from continued antibiotics. She is being followed by infectious disease. Dr. Cam to return tomorrow. 08/14/25 1520<Electronically signed by Tristin Solo MD> Cosigner Signature (if applicable): cc: ~* Signed [facility] Work Phone: 1([phone]) 378-209610-08-2025 Consult note Author rFan Daley [facility] Note Date/Time August 14, 2025 1: 50pm [facility] Medical Records Department [address] [place] [address] Consultation - Infectious Dx 08/14/25 1345 MR#: [id number] Acct: [id number] Name: TRICE ZAMBRANO Rep #:[id number] : 1980 45 From: Fran menendez MD PCP: Dr. Joaquin Huitron MD Status :ADM IN Location: [facility] QW023-2 Assessment & Plan Assessment/Plan (1) Elevated beta-hydroxybutyrate: (2) Diabetes mellitus type 1: QUALIFIERS: Diabetes mellitus complication status: with other specified complication Qualified Code(s): E10.69 - Type 1 diabetes mellitus with other specified complication (3) Cutaneous abscess of perineum: PLAN: At risk for recurrent infections due to uncontrolled DM, a1c is 13.8, glucose was 527 on admit. Now s/p I&D, wound cx with strep so far. On vanc/zosyn, will continue for now. Will follow, thank you HPI Consult Data Date of Consult: 08/14/25 HPI Narrative Reason for Consultation: perineal abscess HPI Narrative: TRICE ZAMBRANO, is a 45 F with h/o necrotizing fasciitis in 2020, perineal abscess in 2023, now again with several days progressive R buttock pain, redness, swelling with associated chills. No known inciting event. No drainage from site. Came to ED 08/11, had bedside I&D done, on vanc/zosyn, but some increased redness seen now extending down R thigh. Full ROS performed and neg except as noted above. 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 History of necrotising fasciitis Current use of insulin Diabetes Home Medications ?Medication ?Instructions ?Recorded ?Last Taken ?Type insulin glargine 100 unit/mL (3 66 unit subcut BID patrick betes 04/23/21 08/11/25 07:30 History mL) subcutaneous pen (Basaglar KwikPen U-100 Insulin) insulin lispro 100 unit/mL 44 unit subcut TID 04/23/21 09/16/24 History subcutaneous pen (Humalog KwikPen (U-100) Insulin) atorvastatin 10 mg tablet 10 mg PO QHS 09/14/21 History lisinopril 5 mg tablet 5 mg PO DAILY 09/14/2109/15 History ropinirole 0.5 mg tablet 1.5 mg PO QHS nerve pain 08/3008/10/25 20:00 History insulin degludec 100 unit/mL (3 64 unit subcut BID 03/31 Unknown History mL) subcutaneous pen (Tresiba FlexTouch U-100 insulin) Allergy/AdvReac Type Severity Reaction Status Date / Time metformin AdvReac Nausea Verified 08/11/25 13:16 Family History Other Breast cancer Diabetes Surgical [...] Extremity: Negative for edema Skin Skin Narrative: R perineal wound with some surrounding redness and induration, mild tenderness Neuro CN's II-XII intact bilaterally Lab / Micro Data Attestation: I reviewed the patient's lab results. 08/13/25 06:00 08/13/25 06:00 Labs: Laboratory Results - last 24 hr 08/13/25 16:00: POC Glucose 140 H 08/13/25 16:14: Vancomycin Trough 19.2 H 08/13/25 21:24: POC Glucose 187 H 08/14/25 06:22: POC Glucose 153 H 08/14/25 11:23: POC Glucose 126 H Micro: Microbiology 08/12/25 18:20 Abs - Buttock Gram Stain - Final 08/12/25 18:20 Abs - Buttock Wound Culture - Preliminary Streptococcus group B Alpha hemolytic organism 08/14/25 1350 <Electronically signed by Fran Daley MD> Cosigner Signature (if applicable): CC: Dr. Joaquin Huitron MD~ Signed [facility] Work Phone: 1([phone] 229-153610-08-2025 Progress note Author Chantel Hand [facility] Note Date/Time August 14, 2025 1: 34pm [facility] Medical Records Department [address] [place] [address] Progress Note - Hospitalist 08/14/25 1322 MR#: [id number] Acct: [id number] Name: TRICE ZAMBRANO Rep #:[id number] : 1980 45 From: Chantel Hand DO PCP: Dr. Joaquin Huitron MD Status :ADM IN Location: [place] RI303-7 Reason for Visit Chief Complaint: Recurrent perineal infection Subjective Subjective Patient with some worsening pain overnight at night of sleep. She was anxious to go home however erythema has spread to the area of the I&D so we will go ahead and hold off and consult ID. Cultures are resulted and should be sensitive to current antibiotics. Objective Data Objective Data Vital Signs: Vital Signs Temp Pulse Resp BP Pulse Ox O2 Del Method 97.1 F L 96 18 150/90 H 99 Room Air 08/14/25 08:34 08/14/25 08:34 08/14/25 08:34 08/14/25 08:34 08/14/25 08:34 08/14/25 08:34 Oxygen Delivery Method Room Air Weight: 105.596 kg Body Mass Index (BMI) 35.4 Intake & Output: Intake and Output for Last 24 Hours 08/12/25 08/13/25 08/14/25 23:59 23:59 23:59 Intake Total 2575 / 2575 1327 / 1567 1120 / 1120 Balance 2575 / 2575 1327 / 1567 1120 / 1120 Lab / Micro Data 08/13/25 06:00 08/13/25 06:00 Labs: Laboratory Results - last 24 hr 08/13/25 16:00: POC Glucose 140 H 08/13/25 16:14: Vancomycin Trough 19.2 H 08/13/25 21:24: POC Glucose 187 H 08/14/25 06:22: POC Glucose 153 H 08/14/25 11:23: POC Glucose 126 H Micro: Microbiology 08/12/25 18:20 Abs - Buttock Gram Stain - Final 08/12/25 18:20 Abs - Buttock Wound Culture - Preliminary Streptococcus group B Alpha hemolytic organism Physical Exam Const alert, oriented x3 and well nourished; Negative for average body habitus or healthy appearing Constitutional Narrative: Obese, middle-aged, white female, lying in left side-lying in bed sleeping but awakens easily, nursing at bedside, patient appears uncomfortable but not toxic and in no acute distress HEENT normocephalic, head/scalp atraumatic and moist oral mucous membranes Resp normal respiratory effort, normal air movement, no retractions, no use of accessory muscles and clear to auscultation bilaterally Auscultation: Negative for crackles, rhonchi or wheezes Cardio regular rate, regular rhythm, S1 normal heart sound, S2 normal heart sound, no murmurs, no rub, no gallops and no clicks GI normal to inspection, nondistended, normoactive bowel sounds, soft to palpation and non-tender Extremity no clubbing, cyanosis or edema Extremity Narrative: Pedal and radial pulses are 2+ Neuro moves all extremities and no focal motor deficits Speech: speech normal Psych mental status grossly normal and affect normal Psych Narrative: Very pleasant, interacts appropriately Assessment & Plan Assessment/Plan (1) Abscess: (2) Low serum bicarbonate: (3) Elevated beta-hydroxybutyrate: PLAN: Plan Cellulitis/abscess of the perineum - Required I&D previously which was polymicrobial including Enterococcus faecalis, E. coli, staph epi, Prevotella, and anaerobic cocci - Patient felt much improved after I&D but today she has had worsening pain and had a bad night - Continue vancomycin and Zosyn now - Aerobic culture shows group B strep and alphahemolytic organism but anaerobic cultures remain pending - With worsening of pain will consult ID - If remains worse tomorrow may need to check CT of the area - Continue with as needed p.o. and IV pain medication - Appreciate general surgery assistance Hypophosphatemia - Resolved Low serum bicarb - Improving - Etiology is unclear - Repeat lab in a.m. Elevated beta hydroxybutyrate - Likely starvation related as patient had not eaten for about 24 to 48 hours prior to admission next-not acidotic on VBG DM-uncontrolled - A1c was 13.8 on admission - Blood sugars are much improved will continue current regimen - continue SSI - Highly suspect that her recurrent perineal infections are related to her lack of blood sugar control -Discussed with patient in detail - Per discussion with patient will refer to endocrinology at discharge--> refer to Dr. Marques Essential hypertension/hyperlipidemia - Increase lisinopril to 10 mg - Continue atorvastatin Neuropathy - Continue ropinirole Obesity - BMI 35.4 - Recommend weight loss - Complicates treatment, prognosis, outcomes DVT prophylaxis - Continue enoxaparin CODE STATUS - Full code Charges/Coding Visit Charges Inpatient E&M: 26703 Subs Hosp L2 08/14/25 1334 <Electronically signed by Chantel Hand DO> Cosigner Signature (if applicable): CC: ~ Signed [facility] Work Phone: 1([phone]) 604-291310-08-2025 Progress note [facility] Medical Records Department [address] [place] [address] Progress Note - Surgery 08/14/25 0745 MR#: [id number] Acct: [id number] Name: TRICE ZAMBRANO Rep #:[id number] : 1980 45 From: Grace JOE PA-C PCP: Dr. Joaquin Huitron MD Status :ADM IN Location: [place] CQ074-5 Subjective Subjective Patient evaluated this morning. She notes not having a very good night sleep. She notes being painful all night. She notes the pressure has resolved, however she is noting that the pain is extending into her right inner thigh. She notes the oxy takes the edge off of the pain and was trying to avoidIV pain medication in hopes of going home, however she feels she may benefit from something stronger. Objective Data Objective Data Vital Signs: Vital Signs Temp Pulse Resp BP Pulse Ox O2 Del Method 98.7 F 95 16 148/87 H 98 Room Air 08/14/25 02:54 08/14/25 02:54 08/14/25 02:54 08/14/25 02:54 08/14/25 02:54 08/14/25 02:54 Oxygen Delivery Method Room Air Weight: 232 lb 12.8 oz Body Mass Index (BMI) 35.4 Intake & Output: Intake and Output for Last 24 Hours 08/12/25 08/13/25 08/14/25 23:59 23:59 23:59 Intake Total 2575 / 2575 1327 / 1567 560 / 560 Balance 2575 / 2575 1327 / 1567 560 / 560 Lab / Micro Data 08/13/25 06:00 08/13/25 06:00 Labs: Laboratory Results - last 24 hr 08/13/25 11:06: POC Glucose 186 H 08/13/25 16:00: POC Glucose 140 H 08/13/25 16:14: Vancomycin Trough 19.2 H 08/13/25 21:24: POC Glucose 187 H 08/14/25 06:22: POC Glucose 153 H Micro: Microbiology 08/12/25 18:20 Abs - Buttock Gram Stain - Final Physical Exam Skin Skin Narrative: Right posterior thigh- Open wound draining purulent material. Gauze was changed.During examination it appears patient's erythema has extended into her medial middle thigh region. This was not noted yesterday. The area is warm. She notes the whole area is tender/sore. Multiple 2 x 2's were applied and secured with medipore tape. Assessment & Plan Assessment/Plan (1) Abscess: (2) Cellulitis of perineum: (3) Diabetes mellitus type 1: QUALIFIERS: Diabetes mellitus complication status: with other specified complication Qualified Code(s): E10.69 - Type 1 diabetes mellitus with other specified complication PLAN: Plan I am following this patient in conjunction with Dr. Solo in Dr. Cam's absence. He will independently evaluate this patient. Labs pending New extension of erythema into right medial thigh that was not noted yesterday Patient has a history of necrotizing fasciitis in 2020 and diabetes Current antibiotics are Zosyn and Vanco Culture preliminary demonstrates Strep group B and Alpha hemolytic organism Recommend infectious disease input/consult Patient would benefit from another day of admission with IV antibiotics and re- evaluate tomorrow for discharge We will continue to monitor this patient Charges/Coding Visit Charges Inpatient E&M: 60790 Subs Hosp L2 08/14/25 1002 Cosigner Signature (if applicable): CC: ~ Signed ADDENDUM by Dr. Tristin Solo MD on 08/14/25 at 1520 Addendum Patient seen and evaluated on rounds this afternoon. Agree with assessment and plan as outlined by TATYANA Hopper Patient states that she is doing reasonably well but is still having pain in therecent I&D site. She underwent incision and drainage in the operating room lastevening with Dr. Cam. Patient complaining of pain involving the medial thigh which is new today, and there does appear sina some increasing erythema extending downward along the inner thigh. There is no areas of fluctuance in this vicinity. Dressing is clean dry and intact. I could not express any purulent drainage. Recommend continued IV antibiotics and dressing changes. Will continue to monitor her wound closelyas she does have a history of necrotizing fasciitis and would certainly benefit from continued antibiotics. She is being followed by infectious disease. Dr. Cam to return tomorrow. 08/14/25 1520 Cosigner Signature (if applicable): cc: ~* Signed [facility]10-08-2025 Consult note [facility] Medical Records Department [address] [place] [address] Consultation - Infectious Dx 08/14/25 1345 MR#: [id number] Acct: [id number] Name: TRICE ZAMBRANO Rep #:[id number] : 1980 45 From: Fran menendez MD PCP: Dr. Joaquin Huitron MD Status :[facility]M [facility] Assessment & Plan Assessment/Plan (1) Elevated beta-hydroxybutyrate: (2) Diabetes mellitus type 1: QUALIFIERS: Diabetes mellitus complication status: with other specified complication Qualified Code(s): E10.69 - Type 1 diabetes mellitus with other specified complication (3) Cutaneous abscess of perineum: PLAN: At risk for recurrent infections due to uncontrolled DM, a1c is 13.8, glucose was 527 on admit. Now s/p I&D, wound cx with strep so far. On vanc/zosyn, will continue for now. Will follow, thank you HPI Consult Data Date of Consult: 08/14/25 HPI Narrative Reason for Consultation: perineal abscess HPI Narrative: TRICE ZAMBRANO, is a 45 F with h/o necrotizing fasciitis in 2020, perineal abscess in 2023, now again with several days progressive R buttock pain, redness, swelling with associated chills. No known inciting event. No drainage from site. Came to ED 08/11, had bedside I&D done, on vanc/zosyn, but some increased redness seen now extending down R thigh. Full ROS performed and neg except as noted above. PFSH Medical History Abscess or cellulitis of perineum Abscess of deep perineal space Physical exam, pre-employment History of necrotising fasciitis Current use of insulin Diabetes Home Medications ?Medication ?Instructions ?Recorded ?Last Taken ?Type insulin glargine 100 unit/mL (3 66 unit subcut BID patrick betes 04/23/21 08/11/25 07:30 History mL) subcutaneous pen (Basaglar KwikPen U-100 Insulin) insulin lispro 100 unit/mL 44 unit subcut TID 04/23/21 09/16/24 History subcutaneous pen (Humalog KwikPen (U-100) Insulin) atorvastatin 10 mg tablet 10 mg PO QHS 09/14/21 History lisinopril 5 mg tablet 5 mg PO DAILY 09/14/2109/15 History ropinirole 0.5 mg tablet 1.5 mg PO QHS nerve pain 08/3008/10/25 20:00 History insulin degludec 100 unit/mL (3 64 unit subcut BID 03/31 Unknown History mL) subcutaneous pen (Tresiba FlexTouch U-100 insulin) Allergy/AdvReac Type Severity Reaction Status Date / Time metformin AdvReac Nausea Verified 08/11/25 13:16 Family History Other Breast cancer Diabetes Surgical [...] Extremity: Negative for edema Skin Skin Narrative: R perineal wound with some surrounding redness and induration, mild tenderness Neuro CN's II-XII intact bilaterally Lab / Micro Data Attestation: I reviewed the patient's lab results. 08/13/25 06:00 08/13/25 06:00 Labs: Laboratory Results - last 24 hr 08/13/25 16:00: POC Glucose 140 H 08/13/25 16:14: Vancomycin Trough 19.2 H 08/13/25 21:24: POC Glucose 187 H 08/14/25 06:22: POC Glucose 153 H 08/14/25 11:23: POC Glucose 126 H Micro: Microbiology 08/12/25 18:20 Abs - Buttock Gram Stain - Final 08/12/25 18:20 Abs - Buttock Wound Culture - Preliminary Streptococcus group B Alpha hemolytic organism 08/14/25 1350 Cosigner Signature (if applicable): CC: Dr. Joaquin Huitron MD~ Signed [facility]10-08-2025 Progress note [facility] Medical Records Department [address] [place] [address] Progress Note - Hospitalist 08/14/25 1322 MR#: [id number] Acct: [id number] Name: TRICE ZAMBRANO Rep #:[id number] : 1980 45 From: Chantel Hand DO PCP: Dr. Joaquin Huitron MD Status :ADM IN Location: MS3 [id number] Reason for Visit Chief Complaint: Recurrent perineal infection Subjective Subjective Patient with some worsening pain overnight at night of sleep. She was anxious to go home however erythema has spread to the area of the I&D so we will go ahead and hold off and consult ID. Cultures are resulted and should be sensitive to current antibiotics. Objective Data Objective Data Vital Signs: Vital Signs Temp Pulse Resp BP Pulse Ox O2 Del Method 97.1 F L 96 18 150/90 H 99 Room Air 08/14/25 08:34 08/14/25 08:34 08/14/25 08:34 08/14/25 08:34 08/14/25 08:34 08/14/25 08:34 Oxygen Delivery Method Room Air Weight: 105.596 kg Body Mass Index (BMI) 35.4 Intake & Output: Intake and Output for Last 24 Hours 08/12/25 08/13/25 08/14/25 23:59 23:59 23:59 Intake Total 2575 / 2575 1327 / 1567 1120 / 1120 Balance 2575 / 2575 1327 / 1567 1120 / 1120 Lab / Micro Data 08/13/25 06:00 08/13/25 06:00 Labs: Laboratory Results - last 24 hr 08/13/25 16:00: POC Glucose 140 H 08/13/25 16:14: Vancomycin Trough 19.2 H 08/13/25 21:24: POC Glucose 187 H 08/14/25 06:22: POC Glucose 153 H 08/14/25 11:23: POC Glucose 126 H Micro: Microbiology 08/12/25 18:20 Abs - Buttock Gram Stain - Final 08/12/25 18:20 Abs - Buttock Wound Culture - Preliminary Streptococcus group B Alpha hemolytic organism Physical Exam Const alert, oriented x3 and well nourished; Negative for average body habitus or healthy appearing Constitutional Narrative: Obese, middle-aged, white female, lying in left side-lying in bed sleeping but awakens easily, nursing at bedside, patient appears uncomfortable but not toxic and in no acute distress HEENT normocephalic, head/scalp atraumatic and moist oral mucous membranes Resp normal respiratory effort, normal air movement, no retractions, no use of accessory muscles and clear to auscultation bilaterally Auscultation: Negative for crackles, rhonchi or wheezes Cardio regular rate, regular rhythm, S1 normal heart sound, S2 normal heart sound, no murmurs, no rub, no gallops and no clicks GI normal to inspection, nondistended, normoactive bowel sounds, soft to palpation and non-tender Extremity no clubbing, cyanosis or edema Extremity Narrative: Pedal and radial pulses are 2+ Neuro moves all extremities and no focal motor deficits Speech: speech normal Psych mental status grossly normal and affect normal Psych Narrative: Very pleasant, interacts appropriately Assessment & Plan Assessment/Plan (1) Abscess: (2) Low serum bicarbonate: (3) Elevated beta-hydroxybutyrate: PLAN: Plan Cellulitis/abscess of the perineum - Required I&D previously which was polymicrobial including Enterococcus faecalis, E. coli, staph epi, Prevotella, and anaerobic cocci - Patient felt much improved after I&D but today she has had worsening pain and had a bad night - Continue vancomycin and Zosyn now - Aerobic culture shows group B strep and alphahemolytic organism but anaerobic cultures remain pending - With worsening of pain will consult ID - If remains worse tomorrow may need to check CT of the area - Continue with as needed p.o. and IV pain medication - Appreciate general surgery assistance Hypophosphatemia - Resolved Low serum bicarb - Improving - Etiology is unclear - Repeat lab in a.m. Elevated beta hydroxybutyrate - Likely starvation related as patient had not eaten for about 24 to 48 hours prior to admission next-not acidotic on VBG DM-uncontrolled - A1c was 13.8 on admission - Blood sugars are much improved will continue current regimen - continue SSI - Highly suspect that her recurrent perineal infections are related to her lack of blood sugar control -Discussed with patient in detail - Per discussion with patient will refer to endocrinology at discharge--> refer to Dr. Marques Essential hypertension/hyperlipidemia - Increase lisinopril to 10 mg - Continue atorvastatin Neuropathy - Continue ropinirole Obesity - BMI 35.4 - Recommend weight loss - Complicates treatment, prognosis, outcomes DVT prophylaxis - Continue enoxaparin CODE STATUS - Full code Charges/Coding Visit Charges Inpatient E&M: 45507 Subs Hosp L2 08/14/25 1334 Cosigner Signature (if applicable): CC: ~ Signed [facility]10-08-2025 Discharge summary Author Myles Cabrera [facility] Note Date/Time August 14, 2025 8: 40am [facility] Medical Records Department [address] [place] [address] Emergency Department Summary 08/11/25 MR#: [id number] Acct: [id number] Name: TRICE ZAMBRANO Rep #:[id number] : 1980 45 From: Myles Mosqueda PCP: Dr. Joaquin Huitron MD Status :ADM IN Location: KY3 [id number] HPI <Dr. Mlyes Cabrera, DO - Last Filed: 08/11/25 15:17> History of Present Illness Chief Complaint: Wound Informant: patient Onset/Context/Timing Onset: Days (2) Context: Gradual Onset Timing: Continuous Quality: Pressure, stabbing Location: Right proximal medial thigh/gluteal/perineal area Worsened by: Sitting, movement Relieved by: Nothing Narrative Narrative: Patient presents with abscess to her right perianal area that has been getting worse over the past 2 days. Patient states that yesterday she noted a pea-sized area that was tender. Patient states that today it has grown to the size of a golf ball. Patient states it is worse with pressure, sitting, and movement. Patient states the pain has been constant. Patient states it is over the right gluteal/perineal/proximal thigh area. Patient denies any discharge or drainage. Patient describes her pain as pressure and stabbing. Patient denies any feversor chills. Patient states she has a history of MRSA and necrotizing fasciitis. [facility] <Dr. Myles Cabrera DO - Last Filed: 08/11/25 15:17> 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 History of necrotising fasciitis Current use of insulin Diabetes Home Medications ?Medication ?Instructions ?Recorded ?Last Taken ?Type insulin glargine 100 unit/mL (3 66 unit subcut BID patrick betes 04/23/21 09/16/24 History mL) subcutaneous pen (Basaglar KwikPen U-100 Insulin) insulin lispro 100 unit/mL 44 unit subcut TID 04/23/21 09/16/24 History subcutaneous pen (Humalog KwikPen (U-100) Insulin) atorvastatin 10 mg tablet 10 mg PO QHS 09/14/21 History lisinopril 5 mg tablet 5 mg PO DAILY 09/14/2109/15 History ropinirole 0.5 mg tablet 1.5 mg PO QHS 09/16/2409/15 History insulin degludec 100 unit/mL (3 64 unit subcut BID 03/31 Unknown History mL) subcutaneous pen (Tresiba FlexTouch U-100 insulin) Allergy/AdvReac Type Severity Reaction Status Date / Time metformin AdvReac Nausea Verified 08/11/25 13:16 Family History Other Breast cancer Diabetes Surgical [...] active: Yes Smoking Status: Never smoker ROS <Dr. Myles Cabrera, DO - Last Filed: 08/11/25 15:17> ROS ED Constitutional Constitutional ED: Denies chills or fever(s) Eyes Eyes: Denies blurry vision or change in vision ENT ENT ED: Denies rhinorrhea or sore throat Cardiovascular Cardiovascular: Denies chest pain or palpitations Respiratory/Chest Respiratory/Chest: Denies cough or dyspnea Gastrointestinal Gastrointestinal: Reports nausea; Denies vomiting Genitourinary Genitourinary ED: Denies dysuria or hematuria Musculoskeletal Musculoskeletal: Denies back pain or neck pain Integumentary Reports abscess; Denies rash Neurologic Neurologic: Reports weakness; Denies headache(s) Allergic/Immunologic Allergic/Immunologic ED: Denies mouth swelling or urticaria EXAM <Dr. Myles Cabrera, DO - Last Filed: 08/11/25 15:17> Physical Exam Const Vital Signs: 08/11/25 13:16 08/11/25 14:18 08/11/25 15:00 Temperature 98.8 F 98.5 F 98.6 F Temperature Source Oral Oral Oral Pulse Rate 125 H 109 H 103 H Respiratory Rate 22 H 18 18 Blood Pressure 180/98 H 165/89 H 157/88 H Blood Pressure Mean 125 114 111 Pulse Ox 99 98 99 Oxygen Delivery Method Room Air Room Air Room Air 08/11/25 16:00 08/11/25 17:00 08/11/25 18:00 Temperature 98.7 F 98.6 F 98.6 F Temperature Source Oral Oral Oral Pulse Rate 103 H 101 H 101 H Respiratory Rate 16 16 18 Blood Pressure 107/77 146/62 H 128/79 H Blood Pressure Mean 87 90 95 Pulse Ox 99 98 99 Oxygen Delivery Method Room Air Room Air Room Air 08/11/25 18:13 Temperature 98.6 F Temperature Source Pulse Rate 100 Respiratory Rate 14 Blood Pressure 128/78 H Blood Pressure Mean 94 Pulse Ox 99 Oxygen Delivery Method Positive well nourished and well developed Constitutional Narrative: BMI is 35.4. General Appearance ED: well developed and NAD HEENT Reports moist mucous membranes Neck supple and no JVD Resp normal respiratory effort and clear to auscultation bilaterally Cardio regular rhythm Rate: tachycardic GI non-tender and non-distended Palpation: soft Extremity normal to inspection General Extremety ED: Negative for edema or tenderness General Extremity: Negative for edema Neuro oriented x3, CN's II-XII intact bilaterally and no sensory deficits noted Sensorium / Orientation: alert Motor Exam: strength 5/5 throughout Psych mental status grossly normal Skin Skin Narrative: There is a tender area over the right medial proximal thigh/gluteal/perineal area. There is minimal fluctuance. There is no active discharge or drainage. There is erythema and induration. <Dr. David Wayne-Darrion, DO - Last Filed: 08/11/25 18:36> Physical Exam Const Vital Signs: 08/11/25 13:16 08/11/25 14:18 08/11/25 15:00 Temperature 98.8 F 98.5 F 98.6 F Temperature Source Oral Oral Oral Pulse Rate 125 H 109 H 103 H Respiratory Rate 22 H 18 18 Blood Pressure 180/98 H 165/89 H 157/88 H Blood Pressure Mean 125 114 111 Pulse Ox 99 98 99 Oxygen Delivery Method Room Air Room Air Room Air 08/11/25 16:00 08/11/25 17:00 08/11/25 18:00 Temperature 98.7 F 98.6 F 98.6 F Temperature Source Oral Oral Oral Pulse Rate 103 H 101 H 101 H Respiratory Rate 16 16 18 Blood Pressure 107/77 146/62 H 128/79 H Blood Pressure Mean 87 90 95 Pulse Ox 99 98 99 Oxygen Delivery Method Room Air Room Air Room Air 08/11/25 18:13 Temperature 98.6 F Temperature Source Pulse Rate 100 Respiratory Rate 14 Blood Pressure 128/78 H Blood Pressure Mean 94 Pulse Ox 99 Oxygen Delivery Method [facility] <Dr. Myles Cabrera, DO - Last Filed: 08/11/25 15:17> [facility] Narrative Medical decision making narrative: Differential diagnosis includes abscess, cellulitis, necrotizing fasciitis, urinary tract infection, sepsis, and electrolyte abnormality. CBC will be obtained to assess for leukocytosis and anemia. Basic metabolic profile will beobtained to assess for electrolyte abnormality and renal function. PT with INR and PTT will be obtained to assess for coagulopathy. Serum lactate will be obtained to assess for sepsis. Serum hCG will be obtained to assess for . Urinalysis will be obtained to assess for urinary tract infection and hematuria. Blood cultures will be obtained to assess for sepsis. CT scan of the abdomen and pelvis will be obtained to assess for abscess, and necrotizing fasciitis. Lab Data Labs: Laboratory Results - last 24 hr 08/11/25 08/11/25 08/11/25 13:40 14:30 15:20 WBC 10.5 RBC 4.83 Hgb 14.0 Hct 39.9 MCV 82.6 MCH 29.0 MCHC 35.1 RDW Std Deviation 38.5 RDW Coeff of Meet 12.8 Plt Count 169 MPV 11.7 Immature Gran % (Auto) 0.500 Neut % (Auto) 82.3 H Lymph % (Auto) 10.3 L Fult[place] % (Auto) 6.3 Eos % (Auto) 0.3 Baso % (Auto) 0.3 Absolute Neuts (auto) 8.7 H Absolute Lymphs (auto) 1.08 Nucleated RBC % 0 PT 12.2 INR 0.9 APTT 24.1 Sodium 129 L Potassium 4.2 Chloride 94 L Carbon Dioxide 16.4 L Anion Gap 19 H BUN 14 Creatinine 0.73 Estim Creat Clear Calc 123.80 Est GFR (MDRD) Non-Af 103 BUN/Creatinine Ratio 19.2 Glucose 527 H* Lactic Acid 1.1 Calcium 9.0 b-Hydroxybutyric mmol/L 2.6 H Serum , Qual NEGATIVE Urine Color Straw Urine Clarity Clear Urine pH 6.0 Ur Specific Frierson 1.015 Urine Protein 30 H Urine Glucose (UA) 1000 H Urine Ketones 150 A* Urine Occult Blood 50 H Urine Nitrite Negative Urine Bilirubin Negative Urine Urobilinogen Normal Ur Leukocyte Esterase 100 H Urine RBC 5-10 SEEN Urine WBC 10-25 SEEN Ur Squamous Epith Cells 0-5 SEEN Urine Bacteria 0 SEEN Urine Mucus 0 SEEN POC Glucose 08/11/25 17:32 WBC RBC Hgb Hct MCV MCH MCHC RDW Std Deviation RDW Coeff of Meet Plt Count MPV Immature Gran % (Auto) Neut % (Auto) Lymph % (Auto) Fulton % (Auto) Eos % (Auto) Baso % (Auto) Absolute Neuts (auto) Absolute Lymphs (auto) Nucleated RBC % PT INR APTT Sodium Potassium Chloride Carbon Dioxide Anion Gap BUN Creatinine Estim Creat Clear Calc Est GFR (MDRD) Non-Af BUN/Creatinine Ratio Glucose Lactic Acid Calcium b-Hydroxybutyric mmol/L Serum , Qual Urine Color Urine Clarity Urine pH Ur Specific Frierson Urine Protein Urine Glucose (UA) Urine Ketones Urine Occult Blood Urine Nitrite Urine Bilirubin Urine Urobilinogen Ur Leukocyte Esterase Urine RBC Urine WBC Ur Squamous Epith Cells Urine Bacteria Urine Mucus POC Glucose 373 H ABG Data ABG results: ABG 08/11/25 16:30 Specimen Type KISHAN Sample Site [id number] VBG pH 7.45 H VBG pO2 32 VBG HCO3 22 VBG Total CO2 23 VBG O2 Sat (Calc) 67 VBG Base Excess -2 L POC Mix VBG pCO2 Pt Tmp 31.8 L O2 Delivery Device Not entered Radiography Diagnostic Testing: Clinical Impression(s) from Imaging Studies Abdomen/Pelvis CT 08/11/25 14:10 IMPRESSION: No perirectal abscess noted Reading Location: [facility] Treatment and Re-Evaluation :: Patient was given IV fluids. Patient was started on Unasyn, vancomycin, and clindamycin. <Dr. David Hanna, DO - Last Filed: 08/11/25 18:36> [facility] MDM Narrative Medical decision making narrative: Differential diagnosis includes abscess, cellulitis, necrotizing fasciitis, urinary tract infection, sepsis, and electrolyte abnormality. CBC will be obtained to assess for leukocytosis and anemia. Basic metabolic profile will beobtained to assess for electrolyte abnormality and renal function. PT with INR and PTT will be obtained to assess for coagulopathy. Serum lactate will be obtained to assess for sepsis. Serum hCG will be obtained to assess for . Urinalysis will be obtained to assess for urinary tract infection and hematuria. Blood cultures will be obtained to assess for sepsis. CT scan of the abdomen and pelvis will be obtained to assess for abscess, and necrotizing fasciitis. Dr. Hanna: Patient was signed out to me by day provider. At the time of sign out we were awaiting for beta hydroxybutyrate, VBG, CT abdomen pelvis. VBG without acidosis. Beta hydroxybutyrate elevated at 2.6. Patient not in DKA. Repeat glucose in the 300s. Another NS bolus ordered with IV insulin to help patient's hyperglycemia. I suspect it is elevated secondary to her currentinfection. CT abdomen pelvis without any perirectal abscess. Upon my examination into the room, patient is pacing secondary to pain. Morphine ordered. I did personally examine the area of concern. I agree with the examination above. She is tender to palpation in this area. I did recommend performing a bedside incision and drainage to see if any purulence can be expressed. Patient declined. She states last time this was incised she ended up with necrotizing fasciitis. She states she prefers to be admitted with IV antibiotics as this usually cures her infections. Will hold off on incision anddrainage per patient's wish. I spoke with the hospitalist who accepted admission with IV antibiotics. Patient confirmed understand the plan. Lab Data Labs: Laboratory Results - last 24 hr 08/11/25 08/11/25 08/11/25 13:40 14:30 15:20 WBC 10.5 RBC 4.83 Hgb 14.0 Hct 39.9 MCV 82.6 MCH 29.0 MCHC 35.1 RDW Std Deviation 38.5 RDW Coeff of Meet 12.8 Plt Count 169 MPV 11.7 Immature Gran % (Auto) 0.500 Neut % (Auto) 82.3 H Lymph % (Auto) 10.3 L Fult[place] % (Auto) 6.3 Eos % (Auto) 0.3 Baso % (Auto) 0.3 Absolute Neuts (auto) 8.7 H Absolute Lymphs (auto) 1.08 Nucleated RBC % 0 PT 12.2 INR 0.9 APTT 24.1 Sodium 129 L Potassium 4.2 Chloride 94 L Carbon Dioxide 16.4 L Anion Gap 19 H BUN 14 Creatinine 0.73 Estim Creat Clear Calc 123.80 Est GFR (MDRD) Non-Af 103 BUN/Creatinine Ratio 19.2 Glucose 527 H* Lactic Acid 1.1 Calcium 9.0 b-Hydroxybutyric mmol/L 2.6 H Serum , Qual NEGATIVE Urine Color Straw Urine Clarity Clear Urine pH 6.0 Ur Specific Frierson 1.015 Urine Protein 30 H Urine Glucose (UA) 1000 H Urine Ketones 150 A* Urine Occult Blood 50 H Urine Nitrite Negative Urine Bilirubin Negative Urine Urobilinogen Normal Ur Leukocyte Esterase 100 H Urine RBC 5-10 SEEN Urine WBC 10-25 SEEN Ur Squamous Epith Cells 0-5 SEEN Urine Bacteria 0 SEEN Urine Mucus 0 SEEN POC Glucose 08/11/25 17:32 WBC RBC Hgb Hct MCV MCH MCHC RDW Std Deviation RDW Coeff of Meet Plt Count MPV Immature Gran % (Auto) Neut % (Auto) Lymph % (Auto) [place]ult[place] % (Auto) Eos % (Auto) Baso % (Auto) Absolute Neuts (auto) Absolute Lymphs (auto) Nucleated RBC % PT INR APTT Sodium Potassium Chloride Carbon Dioxide Anion Gap BUN Creatinine Estim Creat Clear Calc Est GFR (MDRD) Non-Af BUN/Creatinine Ratio Glucose Lactic Acid Calcium b-Hydroxybutyric mmol/L Serum , Qual Urine Color Urine Clarity Urine pH Ur Specific Frierson Urine Protein Urine Glucose (UA) Urine Ketones Urine Occult Blood Urine Nitrite Urine Bilirubin Urine Urobilinogen Ur Leukocyte Esterase Urine RBC Urine WBC Ur Squamous Epith Cells Urine Bacteria Urine Mucus POC Glucose 373 H ABG Data ABG results: ABG 08/11/25 16:30 Specimen Type KISHAN Sample Site [id number] VBG pH 7.45 H VBG pO2 32 VBG HCO3 22 VBG Total CO2 23 VBG O2 Sat (Calc) 67 VBG Base Excess -2 L POC Mix VBG pCO2 Pt Tmp 31.8 L O2 Delivery Device Not entered Radiography Diagnostic Testing: Clinical Impression(s) from Imaging Studies Abdomen/Pelvis CT 08/11/25 14:10 IMPRESSION: No perirectal abscess noted [facility] Triage Chief Complaint: Wound ED Provider: Myles Cabrera Dx/Rx/DC Orders Prescriptions: No Action insulin lispro [Humalog KwikPen Insulin] 100 unit/mL insulin pen 44 unit SUBCUT TID Patient Comments: INJECT 44 UNITS SUBCUTANEOULSY WITH MEALS insulin glargine [Basaglar KwikPen U-100 Insulin] 100 unit/mL (3 mL) insulin pen 66 unit SUBCUT BID Patient Comments: INJECT 40 UNITS SUBCUTANEOUSLY TWICE DAILY atorvastatin 10 mg tablet 10 mg PO QHS lisinopril 5 mg tablet 5 mg PO DAILY ropinirole 0.5 mg tablet 1.5 mg PO QHS insulin degludec [Tresiba FlexTouch U-100] 100 unit/mL (3 mL) insulin pen 64 unit subcut BID Primary Care Provider: Joaquin Huitron Referrals: Joaquin Huitron MD [Primary Care Provider, Family Practice] Print Language: Estonian What to do if you have Problems For any increased pain, shortness of breath, bleeding, nausea or vomiting, chestpain, or any unexpected problems, contact your Primary Care Provider. Call [facility] ([phone]) or report to the closest Emergency Room. Call 911 if necessary. 08/14/25 0840 <Electronically signed by Myles Cabrera DO> Cosigner Signature (if applicable): 08/11/25 1836 <Electronically signed by David Hanna DO> CC: Dr. Joaquin Huitron MD ~ Signed [facility] Work Phone: 1(380) 688-756410-08-2025 Discharge summary [facility] Medical Records Department [address] [place] [address] Emergency Department Summary 08/11/25 MR#: [id number] Acct: [id number] Name: TRICE ZAMBRANO Rep #:[id number] : 1980 45 From: Myles Mosqueda PCP: Dr. Joaquin Huitron MD Status :ADM IN [id number] History of Present Illness Chief Complaint: Wound Informant: patient Onset/Context/Timing Onset: Days (2) Context: Gradual Onset Timing: Continuous Quality: Pressure, stabbing Location: Right proximal medial thigh/gluteal/perineal area Worsened by: Sitting, movement Relieved by: Nothing Narrative Narrative: Patient presents with abscess to her right perianal area that has been getting worse over the past 2 days. Patient states that yesterday she noted a pea-sized area that was tender. Patient states that today it has grown to the size of a golf ball. Patient states it is worse with pressure, sitting, and movement. Patient states the pain has been constant. Patient states it is over the right gluteal/perineal/proximal thigh area. Patient denies any discharge or drainage. Patient describes her pain as pressure and stabbing. Patient denies any feversor chills. Patient states she has a history of MRSA and necrotizing fasciitis. [facility] Medical History Abscess or cellulitis of perineum Abscess of deep perineal space Physical exam, pre-employment History of necrotising fasciitis Current use of insulin Diabetes Home Medications ?Medication ?Instructions ?Recorded ?Last Taken ?Type insulin glargine 100 unit/mL (3 66 unit subcut BID patrick betes 04/23/21 09/16/24 History mL) subcutaneous pen (Basaglar KwikPen U-100 Insulin) insulin lispro 100 unit/mL 44 unit subcut TID 04/23/21 09/16/24 History subcutaneous pen (Humalog KwikPen (U-100) Insulin) atorvastatin 10 mg tablet 10 mg PO QHS 09/14/21 History lisinopril 5 mg tablet 5 mg PO DAILY 09/14/2109/15 History ropinirole 0.5 mg tablet 1.5 mg PO QHS 09/16/2409/15 History insulin degludec 100 unit/mL (3 64 unit subcut BID 03/31 Unknown History mL) subcutaneous pen (Tresiba FlexTouch U-100 insulin) Allergy/AdvReac Type Severity Reaction Status Date / Time metformin AdvReac Nausea Verified 08/11/25 13:16 Family History Other Breast cancer Diabetes Surgical [...] ED: Denies chills or fever(s) Eyes Eyes: Denies blurry vision or change in vision ENT ENT ED: Denies rhinorrhea or sore throat Cardiovascular Cardiovascular: Denies chest pain or palpitations Respiratory/Chest Respiratory/Chest: Denies cough or dyspnea Gastrointestinal Gastrointestinal: Reports nausea; Denies vomiting Genitourinary Genitourinary ED: Denies dysuria or hematuria Musculoskeletal Musculoskeletal: Denies back pain or neck pain Integumentary Reports abscess; Denies rash Neurologic Neurologic: Reports weakness; Denies headache(s) Allergic/Immunologic Allergic/Immunologic ED: Denies mouth swelling or urticaria EXAM Physical Exam Const Vital Signs: 08/11/25 13:16 08/11/25 14:18 08/11/25 15:00 Temperature 98.8 F 98.5 F 98.6 F Temperature Source Oral Oral Oral Pulse Rate 125 H 109 H 103 H Respiratory Rate 22 H 18 18 Blood Pressure 180/98 H 165/89 H 157/88 H Blood Pressure Mean 125 114 111 Pulse Ox 99 98 99 Oxygen Delivery Method Room Air Room Air Room Air 08/11/25 16:00 08/11/25 17:00 08/11/25 18:00 Temperature 98.7 F 98.6 F 98.6 F Temperature Source Oral Oral Oral Pulse Rate 103 H 101 H 101 H Respiratory Rate 16 16 18 Blood Pressure 107/77 146/62 H 128/79 H Blood Pressure Mean 87 90 95 Pulse Ox 99 98 99 Oxygen Delivery Method Room Air Room Air Room Air 08/11/25 18:13 Temperature 98.6 F Temperature Source Pulse Rate 100 Respiratory Rate 14 Blood Pressure 128/78 H Blood Pressure Mean 94 Pulse Ox 99 Oxygen Delivery Method Positive well nourished and well developed Constitutional Narrative: BMI is 35.4. General Appearance ED: well developed and NAD HEENT Reports moist mucous membranes Neck supple and no JVD Resp normal respiratory effort and clear to auscultation bilaterally Cardio regular rhythm Rate: tachycardic GI non-tender and non-distended Palpation: soft Extremity normal to inspection General Extremety ED: Negative for edema or tenderness General Extremity: Negative for edema Neuro oriented x3, CN's II-XII intact bilaterally and no sensory deficits noted Sensorium / Orientation: alert Motor Exam: strength 5/5 throughout Psych mental status grossly normal Skin Skin Narrative: There is a tender area over the right medial proximal thigh/gluteal/perineal area. There is minimalfluctuance. There is no active discharge or drainage. There is erythema and induration. Physical Exam Const Vital Signs: 08/11/25 13:16 08/11/25 14:18 08/11/25 15:00 Temperature 98.8 F 98.5 F 98.6 F Temperature Source Oral Oral Oral Pulse Rate 125 H 109 H 103 H Respiratory Rate 22 H 18 18 Blood Pressure 180/98 H 165/89 H 157/88 H Blood Pressure Mean 125 114 111 Pulse Ox 99 98 99 Oxygen Delivery Method Room Air Room Air Room Air 08/11/25 16:00 08/11/25 17:00 08/11/25 18:00 Temperature 98.7 F 98.6 F 98.6 F Temperature Source Oral Oral Oral Pulse Rate 103 H 101 H 101 H Respiratory Rate 16 16 18 Blood Pressure 107/77 146/62 H 128/79 H Blood Pressure Mean 87 90 95 Pulse Ox 99 98 99 Oxygen Delivery Method Room Air Room Air Room Air 08/11/25 18:13 Temperature 98.6 F Temperature Source Pulse Rate 100 Respiratory Rate 14 Blood Pressure 128/78 H Blood Pressure Mean 94 Pulse Ox 99 Oxygen Delivery Method MDM MDM MDM Narrative Medical decision making narrative: Differential diagnosis includes abscess, cellulitis, necrotizing fasciitis, urinary tract infection, sepsis, and electrolyte abnormality. CBC will be obtained to assess for leukocytosis and anemia. Basic metabolic profile will beobtained to assess for electrolyte abnormality and renal function. PT with INR and PTT will be obtained to assess for coagulopathy. Serum lactate will be obtained to assess for sepsis. Serum hCG will be obtained to assess for . Urinalysis will be obtained to assess for urinary tract infection and hematuria. Blood cultures will be obtained to assess for sepsis. CT scan of the abdomen and pelvis will be obtained to assess for abscess, and necrotizing fasciitis. Lab Data Labs: Laboratory Results - last 24 hr 08/11/25 08/11/25 08/11/25 13:40 14:30 15:20 WBC 10.5 RBC 4.83 Hgb 14.0 Hct 39.9 MCV 82.6 MCH 29.0 MCHC 35.1 RDW Std Deviation 38.5 RDW Coeff of Meet 12.8 Plt Count 169 MPV 11.7 Immature Gran % (Auto) 0.500 Neut % (Auto) 82.3 H Lymph % (Auto) 10.3 L Fulton % (Auto) 6.3 Eos % (Auto) 0.3 Baso % (Auto) 0.3 Absolute Neuts (auto) 8.7 H Absolute Lymphs (auto) 1.08 Nucleated RBC % 0 PT 12.2 INR 0.9 APTT 24.1 Sodium 129 L Potassium 4.2 Chloride 94 L Carbon Dioxide 16.4 L Anion Gap 19 H BUN 14 Creatinine 0.73 Estim Creat Clear Calc 123.80 Est GFR (MDRD) Non-Af 103 BUN/Creatinine Ratio 19.2 Glucose 527 H* Lactic Acid 1.1 Calcium 9.0 b-Hydroxybutyric mmol/L 2.6 H Serum , Qual NEGATIVE Urine Color Straw Urine Clarity Clear Urine pH 6.0 Ur Specific Frierson 1.015 Urine Protein 30 H Urine Glucose (UA) 1000 H Urine Ketones 150 A* Urine Occult Blood 50 H Urine Nitrite Negative Urine Bilirubin Negative Urine Urobilinogen Normal Ur Leukocyte Esterase 100 H Urine RBC 5-10 SEEN Urine WBC 10-25 SEEN Ur Squamous Epith Cells 0-5 SEEN Urine Bacteria 0 SEEN Urine Mucus 0 SEEN POC Glucose 08/11/25 17:32 WBC RBC Hgb Hct MCV MCH MCHC RDW Std Deviation RDW Coeff of Meet Plt Count MPV Immature Gran % (Auto) Neut % (Auto) Lymph % (Auto) Fulton % (Auto) Eos % (Auto) Baso % (Auto) Absolute Neuts (auto) Absolute Lymphs (auto) Nucleated RBC % PT INR APTT Sodium Potassium Chloride Carbon Dioxide Anion Gap BUN Creatinine Estim Creat Clear Calc Est GFR (MDRD) Non-Af BUN/Creatinine Ratio Glucose Lactic Acid Calcium b-Hydroxybutyric mmol/L Serum , Qual Urine Color Urine Clarity Urine pH Ur Specific Frierson Urine Protein Urine Glucose (UA) Urine Ketones Urine Occult Blood Urine Nitrite Urine Bilirubin Urine Urobilinogen Ur Leukocyte Esterase Urine RBC Urine WBC Ur Squamous Epith Cells Urine Bacteria Urine Mucus POC Glucose 373 H ABG Data ABG results: ABG 08/11/25 16:30 Specimen Type KISHAN Sample Site [id number] VBG pH 7.45 H VBG pO2 32 VBG HCO3 22 VBG Total CO2 23 VBG O2 Sat (Calc) 67 VBG Base Excess -2 L POC Mix VBG pCO2 Pt Tmp 31.8 L O2 Delivery Device Not entered Radiography Diagnostic Testing: Clinical Impression(s) from Imaging Studies Abdomen/Pelvis CT 08/11/25 14:10 IMPRESSION: No perirectal abscess noted Reading Location: [facility] Treatment and Re-Evaluation :: Patient was given IV fluids. Patient was started on Unasyn, vancomycin, and clindamycin. MDM MDM Narrative Medical decision making narrative: Differential diagnosis includes abscess, cellulitis, necrotizing fasciitis, urinary tract infection, sepsis, and electrolyte abnormality. CBC will be obtained to assess for leukocytosis and anemia. Basic metabolic profile will beobtained to assess for electrolyte abnormality and renal function. PT with INR and PTT will be obtained to assess for coagulopathy. Serum lactate will be obtained to assess for sepsis. Serum hCG will be obtained to assess for . Urinalysis will be obtained to assess for urinary tract infection and hematuria. Blood cultures will be obtained to assess for sepsis. CT scan of the abdomen and pelvis will be obtained to assess for abscess, and necrotizing fasciitis. Dr. Hanna: Patient was signed out to me by day provider. At the time of sign out we were awaiting for beta hydroxybutyrate, VBG, CT abdomen pelvis. VBG without acidosis. Beta hydroxybutyrateelevated at 2.6. Patient not in DKA. Repeat glucose in the 300s. Another NS bolus ordered with IV insulin to help patient's hyperglycemia. I suspect it is elevated secondary to her currentinfection. CT abdomen pelvis without any perirectal abscess. Upon my examination into the room, patient is pacing secondary to pain. Morphine ordered. I did personally examine the area of concern. I agree with the examination above. She is tender to palpation in this area. I did recommend performing a bedside incision and drainage to see if any purulence can be expressed. Patient declined. She states last time this was incised she ended up with necrotizing fasciitis. She states she prefers to be admitted with IV antibiotics as this usually cures her infections. Will hold off on incision anddrainage per patient's wish. I spoke with the hospitalist who accepted admission with IV antibiotics. Patient confirmed understand the plan. Lab Data Labs: Laboratory Results - last 24 hr 08/11/25 08/11/25 08/11/25 13:40 14:30 15:20 WBC 10.5 RBC 4.83 Hgb 14.0 Hct 39.9 MCV 82.6 MCH 29.0 MCHC 35.1 RDW Std Deviation 38.5 RDW Coeff of Meet 12.8 Plt Count 169 MPV 11.7 Immature Gran % (Auto) 0.500 Neut % (Auto) 82.3 H Lymph % (Auto) 10.3 L Fult[place] % (Auto) 6.3 Eos % (Auto) 0.3 Baso % (Auto) 0.3 Absolute Neuts (auto) 8.7 H Absolute Lymphs (auto) 1.08 Nucleated RBC % 0 PT 12.2 INR 0.9 APTT 24.1 Sodium 129 L Potassium 4.2 Chloride 94 L Carbon Dioxide 16.4 L Anion Gap 19 H BUN 14 Creatinine 0.73 Estim Creat Clear Calc 123.80 Est GFR (MDRD) Non-Af 103 BUN/Creatinine Ratio 19.2 Glucose 527 H* Lactic Acid 1.1 Calcium 9.0 b-Hydroxybutyric mmol/L 2.6 H Serum , Qual NEGATIVE Urine Color Straw Urine Clarity Clear Urine pH 6.0 Ur Specific Frierson 1.015 Urine Protein 30 H Urine Glucose (UA) 1000 H Urine Ketones 150 A* Urine Occult Blood 50 H Urine Nitrite Negative Urine Bilirubin Negative Urine Urobilinogen Normal Ur Leukocyte Esterase 100 H Urine RBC 5-10 SEEN Urine WBC 10-25 SEEN Ur Squamous Epith Cells 0-5 SEEN Urine Bacteria 0 SEEN Urine Mucus 0 SEEN POC Glucose 08/11/25 17:32 WBC RBC Hgb Hct MCV MCH MCHC RDW Std Deviation RDW Coeff of Meet Plt Count MPV Immature Gran % (Auto) Neut % (Auto) Lymph % (Auto) Fulton % (Auto) Eos % (Auto) Baso % (Auto) Absolute Neuts (auto) Absolute Lymphs (auto) Nucleated RBC % PT INR APTT Sodium Potassium Chloride Carbon Dioxide Anion Gap BUN Creatinine Estim Creat Clear Calc Est GFR (MDRD) Non-Af BUN/Creatinine Ratio Glucose Lactic Acid Calcium b-Hydroxybutyric mmol/L Serum , Qual Urine Color Urine Clarity Urine pH Ur Specific Frierson Urine Protein Urine Glucose (UA) Urine Ketones Urine Occult Blood Urine Nitrite Urine Bilirubin Urine Urobilinogen Ur Leukocyte Esterase Urine RBC Urine WBC Ur Squamous Epith Cells Urine Bacteria Urine Mucus POC Glucose 373 H ABG Data ABG results: ABG 08/11/25 16:30 Specimen Type KISHAN Sample Site [id number] VBG pH 7.45 H VBG pO2 32 VBG HCO3 22 VBG Total CO2 23 VBG O2 Sat (Calc) 67 VBG Base Excess -2 L POC Mix VBG pCO2 Pt Tmp 31.8 L O2 Delivery Device Not entered Radiography Diagnostic Testing: Clinical Impression(s) from Imaging Studies Abdomen/Pelvis CT 08/11/25 14:10 IMPRESSION: No perirectal abscess noted Reading Location: [facility] Discharge Plan Triage Chief Complaint: Wound ED Provider: Myles Cabrera Dx/Rx/DC Orders Prescriptions: No Action insulin lispro [Humalog KwikPen Insulin] 100 unit/mL insulin pen 44 unit SUBCUT TID Patient Comments: INJECT 44 UNITS SUBCUTANEOULSY WITH MEALS insulin glargine [Basaglar KwikPen U-100 Insulin] 100 unit/mL (3 mL) insulin pen 66 unit SUBCUT BID Patient Comments: INJECT 40 UNITS SUBCUTANEOUSLY TWICE DAILY atorvastatin 10 mg tablet 10 mg PO QHS lisinopril 5 mg tablet 5 mg PO DAILY ropinirole 0.5 mg tablet 1.5 mg PO QHS insulin degludec [Tresiba FlexTouch U-100] 100 unit/mL (3 mL) insulin pen 64 unit subcut BID Primary Care Provider: Joaquin Huitron Referrals: Joaquin Huitron MD [Primary Care Provider, Family Practice] Print Language: Estonian What to do if you have Problems For any increased pain, shortness of breath, bleeding, nausea or vomiting, chestpain, or any unexpected problems, contact your Primary Care Provider. Call [facility] ([phone]) or report tothe closest Emergency Room. Call 911 if necessary. 08/14/25 0840 Cosigner Signature (if applicable): 08/11/25 1836 CC: Dr. Joaquin Huitron MD ~ Signed [facility]10-07-2025 Progress note Author Chantel Hand [facility] Note Date/Time August 13, 2025 3: 28pm [facility] Medical Records Department [address] [place] [address] Progress Note - Hospitalist 08/13/2524 MR#: [id number] Acct: [id number] Name: TRICE ZAMBRANO Rep #:[id number] : 1980 45 From: Chantel Hand DO PCP: Dr. Joaquin Huitron MD Status :ADM IN Location: [facility] [id number] Reason for Visit Chief Complaint: Recurrent perineal infection Subjective Subjective Patient states she is overall feeling much better since I&D yesterday. We discussed another 24 hours of IV antibiotics and likely home tomorrow. Blood sugars look better with fasting sugars coming down so we will continue current regimen. Patient is agreeable to outpatient follow-up with endocrinology. Objective Data Objective Data Vital Signs: Vital Signs Temp Pulse Resp BP Pulse Ox O2 Del Method 98.3 F 88 16 122/61 H 96 Room Air 08/13/25 06:28 08/13/25 06:28 08/13/25 06:28 08/13/25 06:28 08/13/25 07:24 08/13/25 07:24 Oxygen Delivery Method Room Air Weight: 105.596 kg Body Mass Index (BMI) 35.4 Intake & Output: Intake and Output for Last 24 Hours 08/11/25 08/12/25 08/13/25 23:59 23:59 23:59 Intake Total 3327.5 / 3327.5 2575 / 2575 325 / 325 Balance 3327.5 / 3327.5 2575 / 2575 325 / 325 Lab / Micro Data 08/13/25 06:00 08/13/25 06:00 Labs: Laboratory Results - last 24 hr 08/12/25 11:26: POC Glucose 207 H 08/12/25 15:35: Sodium 133, Potassium 4.0, Chloride 104, Carbon Dioxide 17.2 L, Anion Gap 12, BUN 12, Creatinine 0.77, Estim Creat Clear Calc 117.36, Est GFR (MDRD) Non-Af 97, BUN/Creatinine Ratio 15.0, Glucose 275 H, Calcium 8.1, Vancomycin Trough 16.0 H 08/12/25 16:26: POC Glucose 259 H 08/12/25 21:03: POC Glucose 243 H 08/13/25 06:00: WBC 8.1, RBC 3.88 L, Hgb 11.4 L, Hct 32.2 L, MCV 83.0 D, MCH 29.4, MCHC 35.4 D, RDW Std Deviation 39.7, RDW Coeff of Meet 13.2, Plt Count 150, MPV 11.7, Immature Gran % (Auto) 0.200, Neut % (Auto) 77.1 H, Lymph % (Auto) 14.1 L, Fulton % (Auto) 7.5, Eos % (Auto) 0.9, Baso % (Auto) 0.2, Absolute Neuts (auto) 6.3, Absolute Lymphs (auto) 1.15, Nucleated RBC % 0, Sodium 135, Potassium 3.4, Chloride 107, Carbon Dioxide 17.9 L, Anion Gap 10, BUN 9, Creatinine 0.86, Estim Creat Clear Calc 105.08, Est GFR (MDRD) Non-Af 84, BUN/Creatinine Ratio 11.0, Glucose 196 H, Calcium 8.1, Phosphorus 2.6 L, Magnesium 2.2, Total Bilirubin 0.32, AST 10, ALT 11, Alkaline Phosphatase 66, Total Protein 5.6 L, Albumin 2.9 L, Globulin 2.7, Albumin/Globulin Ratio 1.1 08/13/25 06:23: POC Glucose 193 H Physical Exam Const alert, oriented x3, no apparent distress and well nourished; Negative for average body habitus or healthy appearing Constitutional Narrative: Obese, middle-aged, white female, sitting up in bed, appears much more comfortable than yesterday, nontoxic, very pleasant HEENT normocephalic, head/scalp atraumatic and moist oral mucous membranes HEENT Narrative: No thrush, Mallampati 3 Resp normal respiratory effort, normal air movement, no retractions, no use of accessory muscles and clear to auscultation bilaterally Auscultation: Negative for crackles, rhonchi or wheezes Cardio regular rate, regular rhythm, S1 normal heart sound, S2 normal heart sound, no murmurs, no rub, no gallops and no clicks GI normal to inspection, nondistended, normoactive bowel sounds, soft to palpation and non-tender Extremity no clubbing, cyanosis or edema Extremity Narrative: Pedal and radial pulses are 2+ Neuro moves all extremities and no focal motor deficits Speech: speech normal Psych affect normal Psych Narrative: Very pleasant, interacts appropriately Assessment & Plan Assessment/Plan (1) Abscess: (2) Low serum bicarbonate: (3) Elevated beta-hydroxybutyrate: PLAN: Plan Cellulitis/abscess of the perineum - Required I&D previously which was polymicrobial including Enterococcus faecalis, E. coli, staph epi, Prevotella, and anaerobic cocci - Much improved after I&D - Continue vancomycin and Zosyn for another 24 hours and will plan to discharge on oral antibiotics - Culture from I&D requested - Continue with as needed p.o. and IV pain medication - Appreciate general surgery assistance Hypophosphatemia - Mild - K-Phos bolus - Repeat lab in a.m. Low serum bicarb - Improving - Etiology is unclear Elevated beta hydroxybutyrate - Likely starvation related as patient had not eaten for about 24 to 48 hours prior to admission next-not acidotic on VBG DM-uncontrolled - A1c is 13.8 - Patient states her fastings are about 120-130 at home but they get more uncontrolled the day goes on - Continue current doses of basal insulin next-continue current bolus insulin shreyas blood sugars seem to be improving with improved infection control - continue SSI - Highly suspect that her recurrent perineal infections are related to her lack of blood sugar control -Discussed with patient in detail - Per discussion with patient will refer to endocrinology at discharge--> refer to Dr. Marques Essential hypertension/hyperlipidemia - Continue home lisinopril 5 mg daily-Will continue to monitor blood pressure asshe is having some elevated pressures and consider 10 mg of lisinopril from 5 - Continue atorvastatin Neuropathy - Continue ropinirole Obesity - BMI 35.4 - Recommend weight loss - Complicates treatment, prognosis, outcomes DVT prophylaxis - Continue enoxaparin CODE STATUS - Full code Charges/Coding Visit Charges Inpatient E&M: 18494 Subs Hosp L2 08/13/25 1528 <Electronically signed by Chantel Hand DO> Cosigner Signature (if applicable): CC: ~ Signed [facility] Work Phone: 1(263) 485-654310-07-2025 Progress note Author Grace Piña [facility] Note Date/Time August 13, 2025 2: 26pm [facility] Medical Records Department [address] [place] [address] Progress Note - Surgery 08/13/25 0812 MR#: [id number] Acct: [id number] Name: TRICE ZAMBRANO Rep #:[id number] : 1980 45 From: Grace JOE PA-C PCP: Dr. Joaquin Huitron MD Status :ADM IN Location: [facility] FO684-4 Subjective Subjective Patient evaluated resting comfortably in bed. She notes feeling improved this morning. She notes the pressure is completely resolved. She note sthe area is stil tender. She denies having to change the dressing over night. Objective Data Objective Data Vital Signs: Vital Signs Temp Pulse Resp BP Pulse Ox O2 Del Method 98.3 F 88 16 122/61 H 96 Room Air 08/13/25 06:28 08/13/25 06:28 08/13/25 06:28 08/13/25 06:28 08/13/25 07:24 08/13/25 07:24 Oxygen Delivery Method Room Air Weight: 232 lb 12.8 oz Body Mass Index (BMI) 35.4 Intake & Output: Intake and Output for Last 24 Hours 08/11/25 08/12/25 08/13/25 23:59 23:59 23:59 Intake Total 3327.5 / 3327.5 2575 / 2575 427 / 427 Balance 3327.5 / 3327.5 2575 / 2575 427 / 427 Lab / Micro Data 08/13/25 06:00 08/13/25 06:00 Labs: Laboratory Results - last 24 hr 08/12/25 11:26: POC Glucose 207 H 08/12/25 15:35: Sodium 133, Potassium 4.0, Chloride 104, Carbon Dioxide 17.2 L, Anion Gap 12, BUN 12, Creatinine 0.77, Estim Creat Clear Calc 117.36, Est GFR (MDRD) Non-Af 97, BUN/Creatinine Ratio 15.0, Glucose 275 H, Calcium 8.1, Vancomycin Trough 16.0 H 08/12/25 16:26: POC Glucose 259 H 08/12/25 21:03: POC Glucose 243 H 08/13/25 06:00: WBC 8.1, RBC 3.88 L, Hgb 11.4 L, Hct 32.2 L, MCV 83.0 D, MCH 29.4, MCHC 35.4 D, RDW Std Deviation 39.7, RDW Coeff of Meet 13.2, Plt Count 150, MPV 11.7, Immature Gran % (Auto) 0.200, Neut % (Auto) 77.1 H, Lymph % (Auto) 14.1 L, Fulton % (Auto) 7.5, Eos % (Auto) 0.9, Baso % (Auto) 0.2, Absolute Neuts (auto) 6.3, Absolute Lymphs (auto) 1.15, Nucleated RBC % 0, Sodium 135, Potassium 3.4, Chloride 107, Carbon Dioxide 17.9 L, Anion Gap 10, BUN 9, Creatinine 0.86, Estim Creat Clear Calc 105.08, Est GFR (MDRD) Non-Af 84, BUN/Creatinine Ratio 11.0, Glucose 196 H, Calcium 8.1, Phosphorus 2.6 L, Magnesium 2.2, Total Bilirubin 0.32, AST 10, ALT 11, Alkaline Phosphatase 66, Total Protein 5.6 L, Albumin 2.9 L, Globulin 2.7, Albumin/Globulin Ratio 1.1 08/13/25 06:23: POC Glucose 193 H Physical Exam Extremity Extremity Narrative: Right posterior thigh- all packing was removed. Surrounding tenderness to palpation. Very faint erythema. Open wound was packed with dry 2 x 2 and 4 x 4 dry gauze was applied over top and secured with medipore tape. No active drainage noted. Purulent/bloody drainage on the dressing was noted. Assessment & Plan Assessment/Plan (1) Abscess: PLAN: Plan I am following this patient in conjunction with Dr. Cam. He has independently evaluated this patient. Labs reviewed Cultures pending No repacking will be needed after pulled this morning for her shower Keep wound covered until completely closed Follow-up in the office in 7-10 days for re-evaluation Recommend total of 10 days of antibiotics (including IV antibiotics) Ready for discharge from a surgical standpoint today Our office will call with cultures results once obtained Charges/Coding Visit Charges Inpatient E&M: 96402 Subs Hosp L2 08/13/25 0819 <Electronically signed by Grace JOE PA-C> Cosigner Signature (if applicable): CC: ~ Signed ADDENDUM by Dr. Werner Cma MD on 08/13/25 at 1425 Addendum Patient seen and examined with Mrs. Piña. Agree with her documentation above. On exam patient's wound displays persistent induration but I do not perceive any fluctuance/concern for undrained abscess pockets. Further, given that I unroofed the cavity at the patient's incision and drainage procedure I find no cause to recommend ongoing packing. Therefore, from a wound care perspective patient will simply require an absorptive surface to collect drainage and is recommend daily sitz bath's to irrigate the wound. Defer to primary team for antibiotic selection based on cultures obtained yesterday or most likely microbe. 08/13/25 1425<Electronically signed by Werner Cam MD> Cosigner Signature (if applicable): cc: ~* Signed [facility] Work Phone: 1([phone]) 876-571610-07-2025 Progress note [facility] Medical Records Department [address] [place] [address] Progress Note - Hospitalist 08/13/25723 MR#: [id number] Acct: [id number] Name: TRICE ZAMBRANO Rep #:[id number] : 1980 45 From: Chantel Hand DO PCP: Dr. Joaquin Huitron MD Status :ADM IN [id number] Reason for Visit Chief Complaint: Recurrent perineal infection Subjective Subjective Patient states she is overall feeling much better since I&D yesterday. We discussed another 24 hours of IV antibiotics and likely home tomorrow. Blood sugars look better with fasting sugars coming down so we will continue current regimen. Patient is agreeable to outpatient follow-up with endocrinology. Objective Data Objective Data Vital Signs: Vital Signs Temp Pulse Resp BP Pulse Ox O2 Del Method 98.3 F 88 16 122/61 H 96 Room Air 08/13/25 06:28 08/13/25 06:28 08/13/25 06:28 08/13/25 06:28 08/13/25 07:24 08/13/25 07:24 Oxygen Delivery Method Room Air Weight: 105.596 kg Body Mass Index (BMI) 35.4 Intake & Output: Intake and Output for Last 24 Hours 08/11/25 08/12/25 08/13/25 23:59 23:59 23:59 Intake Total 3327.5 / 3327.5 2575 / 2575 325 / 325 Balance 3327.5 / 3327.5 2575 / 2575 325 / 325 Lab / Micro Data 08/13/25 06:00 08/13/25 06:00 Labs: Laboratory Results - last 24 hr 08/12/25 11:26: POC Glucose 207 H 08/12/25 15:35: Sodium 133, Potassium 4.0, Chloride 104, Carbon Dioxide 17.2 L, Anion Gap 12, BUN 12, Creatinine 0.77, Estim Creat Clear Calc 117.36, Est GFR (MDRD) Non-Af 97, BUN/Creatinine Ratio 15.0, Glucose 275 H, Calcium 8.1, Vancomycin Trough 16.0 H 08/12/25 16:26: POC Glucose 259 H 08/12/25 21:03: POC Glucose 243 H 08/13/25 06:00: WBC 8.1, RBC 3.88 L, Hgb 11.4 L, Hct 32.2 L, MCV 83.0 D, MCH 29.4, MCHC 35.4 D, RDWStd Deviation 39.7, RDW Coeff of Meet 13.2, Plt Count 150, MPV 11.7, Immature Gran % (Auto) 0.200, Neut % (Auto) 77.1 H, Lymph % (Auto) 14.1 L, Fulton % (Auto) 7.5, Eos % (Auto) 0.9, Baso % (Auto) 0.2, Absolute Neuts (auto) 6.3, Absolute Lymphs (auto) 1.15, Nucleated RBC % 0, Sodium 135, Potassium 3.4, Chloride 107, Carbon Dioxide 17.9 L, Anion Gap 10, BUN 9, Creatinine 0.86, Estim Creat Clear Calc 105.08, Est GFR (MDRD) Non-Af 84, BUN/Creatinine Ratio 11.0, Glucose 196 H, Calcium 8.1, Phosphorus 2.6 L, Magnesium 2.2, Total Bilirubin 0.32, AST 10, ALT 11, Alkaline Phosphatase 66, Total Protein 5.6 L, Albumin 2.9 L, Globulin 2.7, Albumin/Globulin Ratio 1.1 08/13/25 06:23: POC Glucose 193 H Physical Exam Const alert, oriented x3, no apparent distress and well nourished; Negative for average body habitus or healthy appearing Constitutional Narrative: Obese, middle-aged, white female, sitting up in bed, appears much more comfortable than yesterday, nontoxic, very pleasant HEENT normocephalic, head/scalp atraumatic and moist oral mucous membranes HEENT Narrative: No thrush, Mallampati 3 Resp normal respiratory effort, normal air movement, no retractions, no use of accessory muscles and clear to auscultation bilaterally Auscultation: Negative for crackles, rhonchi or wheezes Cardio regular rate, regular rhythm, S1 normal heart sound, S2 normal heart sound, no murmurs, no rub, no gallops and no clicks GI normal to inspection, nondistended, normoactive bowel sounds, soft to palpation and non-tender Extremity no clubbing, cyanosis or edema Extremity Narrative: Pedal and radial pulses are 2+ Neuro moves all extremities and no focal motor deficits Speech: speech normal Psych affect normal Psych Narrative: Very pleasant, interacts appropriately Assessment & Plan Assessment/Plan (1) Abscess: (2) Low serum bicarbonate: (3) Elevated beta-hydroxybutyrate: PLAN: Plan Cellulitis/abscess of the perineum - Required I&D previously which was polymicrobial including Enterococcus faecalis, E. coli, staph epi, Prevotella, and anaerobic cocci - Much improved after I&D - Continue vancomycin and Zosyn for another 24 hours and will plan to discharge on oral antibiotics - Culture from I&D requested - Continue with as needed p.o. and IV pain medication - Appreciate general surgery assistance Hypophosphatemia - Mild - K-Phos bolus - Repeat lab in a.m. Low serum bicarb - Improving - Etiology is unclear Elevated beta hydroxybutyrate - Likely starvation related as patient had not eaten for about 24 to 48 hours prior to admission next-not acidotic on VBG DM-uncontrolled - A1c is 13.8 - Patient states her fastings are about 120-130 at home but they get more uncontrolled the day goeson - Continue current doses of basal insulin next-continue current bolus insulin shreyas blood sugars seem to be improving with improved infection control - continue SSI - Highly suspect that her recurrent perineal infections are related to her lack of blood sugar control -Discussed with patient in detail - Per discussion with patient will refer to endocrinology at discharge--> refer to Dr. Marques Essential hypertension/hyperlipidemia - Continue home lisinopril 5 mg daily-Will continue to monitor blood pressure asshe is having some elevated pressures and consider 10 mg of lisinopril from 5 - Continue atorvastatin Neuropathy - Continue ropinirole Obesity - BMI 35.4 - Recommend weight loss - Complicates treatment, prognosis, outcomes DVT prophylaxis - Continue enoxaparin CODE STATUS - Full code Charges/Coding Visit Charges Inpatient E&M: 76663 Subs Hosp L2 08/13/25 1528 Cosigner Signature (if applicable): CC: ~ Signed [facility]10-07-2025 Progress note [facility] Medical Records Department [address] [place] [address] Progress Note - Surgery 08/13/25811 MR#: [id number] Acct: [id number] Name: TRICE ZAMBRANO Rep #:[id number] : 1980 45 From: Grace JOE PA-C PCP: Dr. Joaquin Huitron MD Status :ADM IN [id number] Subjective Subjective Patient evaluated resting comfortably in bed. She notes feeling improved this morning. She notes the pressure is completely resolved. She note sthe area is stil tender. She denies having to change the dressing over night. Objective Data Objective Data Vital Signs: Vital Signs Temp Pulse Resp BP Pulse Ox O2 Del Method 98.3 F 88 16 122/61 H 96 Room Air 08/13/25 06:28 08/13/25 06:28 08/13/25 06:28 08/13/25 06:28 08/13/25 07:24 08/13/25 07:24 Oxygen Delivery Method Room Air Weight: 232 lb 12.8 oz Body Mass Index (BMI) 35.4 Intake & Output: Intake and Output for Last 24 Hours 08/11/25 08/12/25 08/13/25 23:59 23:59 23:59 Intake Total 3327.5 / 3327.5 2575 / 2575 427 / 427 Balance 3327.5 / 3327.5 2575 / 2575 427 / 427 Lab / Micro Data 08/13/25 06:00 08/13/25 06:00 Labs: Laboratory Results - last 24 hr 08/12/25 11:26: POC Glucose 207 H 08/12/25 15:35: Sodium 133, Potassium 4.0, Chloride 104, Carbon Dioxide 17.2 L, Anion Gap 12, BUN 12, Creatinine 0.77, Estim Creat Clear Calc 117.36, Est GFR (MDRD) Non-Af 97, BUN/Creatinine Ratio 15.0, Glucose 275 H, Calcium 8.1, Vancomycin Trough 16.0 H 08/12/25 16:26: POC Glucose 259 H 08/12/25 21:03: POC Glucose 243 H 08/13/25 06:00: WBC 8.1, RBC 3.88 L, Hgb 11.4 L, Hct 32.2 L, MCV 83.0 D, MCH 29.4, MCHC 35.4 D, RDWStd Deviation 39.7, RDW Coeff of Meet 13.2, Plt Count 150, MPV 11.7, Immature Gran % (Auto) 0.200, Neut % (Auto) 77.1 H, Lymph % (Auto) 14.1 L, Fulton % (Auto) 7.5, Eos % (Auto) 0.9, Baso % (Auto) 0.2, Absolute Neuts (auto) 6.3, Absolute Lymphs (auto) 1.15, Nucleated RBC % 0, Sodium 135, Potassium 3.4, Chloride 107, Carbon Dioxide 17.9 L, Anion Gap 10, BUN 9, Creatinine 0.86, Estim Creat Clear Calc 105.08, Est GFR (MDRD) Non-Af 84, BUN/Creatinine Ratio 11.0, Glucose 196 H, Calcium 8.1, Phosphorus 2.6 L, Magnesium 2.2, Total Bilirubin 0.32, AST 10, ALT 11, Alkaline Phosphatase 66, Total Protein 5.6 L, Albumin 2.9 L, Globulin 2.7, Albumin/Globulin Ratio 1.1 08/13/25 06:23: POC Glucose 193 H Physical Exam Extremity Extremity Narrative: Right posterior thigh- all packing was removed. Surrounding tenderness to palpation. Very faint erythema. Open wound was packed with dry 2 x 2 and 4 x 4 dry gauze was applied over top and secured with medipore tape. No active drainage noted. Purulent/bloody drainage on the dressing was noted. Assessment & Plan Assessment/Plan (1) Abscess: PLAN: Plan I am following this patient in conjunction with Dr. Cam. He has independently evaluated this patient. Labs reviewed Cultures pending No repacking will be needed after pulled this morning for her shower Keep wound covered until completely closed Follow-up in the office in 7-10 days for re-evaluation Recommend total of 10 days of antibiotics (including IV antibiotics) Ready for discharge from a surgical standpoint today Our office will call with cultures results once obtained Charges/Coding Visit Charges Inpatient E&M: 50298 Subs Hosp L2 08/13/25 0819 Cosigner Signature (if applicable): CC: ~ Signed ADDENDUM by Dr. Werner Cam MD on 08/13/25 at 1425 Addendum Patient seen and examined with Mrs. Piña. Agree with her documentation above. On exam patient'swound displays persistent induration but I do not perceive any fluctuance/concern for undrained abscess pockets. Further, given that I unroofed the cavity at the patient's incision and drainage procedure I find no cause to recommend ongoing packing. Therefore, from a wound care perspective patient will simply require an absorptive surface to collect drainage and is recommend daily sitz bath's to irrigate the wound. Defer to primary team for antibiotic selection based on cultures obtained yesterday or most likely microbe. 08/13/25 1425 Cosigner Signature (if applicable): cc: ~* Signed [facility]10-07-2025 Consult note Author Sheeba Reynolds [facility] Note Date/Time August 13, 2025 7: 00am [facility] Medical Records Department [address] [place] [address] Pharmacokinetic/Renal -Consult 08/12/25 1639 MR#: [id number] Acct: [id number] Name: TRICE ZAMBRANO Rep #:[id number] : 1980 45 From: Sheeba Reynolds PCP: Dr. Joaquin Hutiron MD Status :ADM IN Location: [place] [id number] Consult Antibiotic Management Pharmacy has been consulted to manage selected antibiotic: Vancomycin Type of Intervention Type of Consult: Follow-up Suspected Infection Suspected Infection: Skin/Soft tissue Labs Labs: Sodium 134 mmol/L (133-145) 08/12/25 06:10 Potassium 3.9 mmol/L (3.3-5.1) 08/12/25 06:10 Chloride 105 mmol/L (98-108) 08/12/25 06:10 Carbon Dioxide 14.3 mmol/L (21.0-32.0) L 08/12/25 06:10 Anion Gap 15 (5-15) 08/12/25 06:10 BUN 11 mg/dL (4-19) 08/12/25 06:10 Creatinine 0.69 mg/dL (0.70-1.20) L 08/12/25 06:10 Est GFR (MDRD) Non-Af 109 (>60) 08/12/25 06:10 BUN/Creatinine Ratio 15.7 RATIO (10-20) 08/12/25 06:10 Glucose 283 mg/dL (70-99) H 08/12/25 06:10 Vancomycin Trough 16.0 ug/mL (5.0-15.0) H 08/12/25 15:35 Pharmacy Plan for Drug Dosing Pharmacy Plan for Drug Dosing: VANCOMYCIN LEVEL RECEIVED Current Vancomycin Dose: 1250MG Q8 Number of Doses Received: 3 Vancomycin Level: 16 mg/dl Hours Since Last Dose: 7.5 Renal Function: SCr 0.69 mg/dL, CrCl 130 mL/min Renal Function Trend: stable Vancomycin Plan/Comments: 7.5 hour trough is therapeutic at 16 mg/dL (goal 15- 20). Will continue current dosing and get a repeat trough in 24 hours (due to [id number]). Pending Level: 08/13/25 @ 1600 Pharmacy Service will continue to monitor and adjust dosing as required. 08/12/25 1640 <Electronically signed by Sheeba Reynolds> Date _ Sheeba Reynolds 08/13/25 0700 <Electronically signed by Chantel Hand D O> Rafael Signature (if applicable): Date Chantel Hand DO CC: ~ Signed [facility] Work Phone: 1(336) 486-941410-07-2025 Consult note [facility] Medical Records Department [address] [place] [address] Pharmacokinetic/Renal -Consult 08/12/25 5889 MR#: [id number] Acct: [id number] Name: TRICE ZAMBRANO Rep #:[id number] : 1980 45 From: Sheeba Reynolds PCP: Dr. Joaquin Huitron MD Status :ADM IN Location: [facility] II654-4 Consult Antibiotic Management Pharmacy has been consulted to manage selected antibiotic: Vancomycin Type of Intervention Type of Consult: Follow-up Suspected Infection Suspected Infection: Skin/Soft tissue Labs Labs: Sodium 134 mmol/L (133-145) 08/12/25 06:10 Potassium 3.9 mmol/L (3.3-5.1) 08/12/25 06:10 Chloride 105 mmol/L (98-108) 08/12/25 06:10 Carbon Dioxide 14.3 mmol/L (21.0-32.0) L 08/12/25 06:10 Anion Gap 15 (5-15) 08/12/25 06:10 BUN 11 mg/dL (4-19) 08/12/25 06:10 Creatinine 0.69 mg/dL (0.70-1.20) L 08/12/25 06:10 Est GFR (MDRD) Non-Af 109 (>60) 08/12/25 06:10 BUN/Creatinine Ratio 15.7 RATIO (10-20) 08/12/25 06:10 Glucose 283 mg/dL (70-99) H 08/12/25 06:10 Vancomycin Trough 16.0 ug/mL (5.0-15.0) H 08/12/25 15:35 Pharmacy Plan for Drug Dosing Pharmacy Plan for Drug Dosing: VANCOMYCIN LEVEL RECEIVED Current Vancomycin Dose: 1250MG Q8 Number of Doses Received: 3 Vancomycin Level: 16 mg/dl Hours Since Last Dose: 7.5 Renal Function: SCr 0.69 mg/dL, CrCl 130 mL/min Renal Function Trend: stable Vancomycin Plan/Comments: 7.5 hour trough is therapeutic at 16 mg/dL (goal 15- 20). Will continue current dosing and get a repeat trough in 24 hours (due to [id number]). Pending Level: 08/13/25 @ 1600 Pharmacy Service will continue to monitor and adjust dosing as required. 08/12/25 1640 Date _ Sheeba Reynolds 08/13/25 0700 O> Cosigner Signature (if applicable): Date Chantel Hand DO CC: ~ Signed [facility]10-06-2025 Consult note Author Werner Cam [facility] Note Date/Time August 12, 2025 7: 08pm [facility] Medical Records Department [address] [place] [address] Consultation - Surgical 08/12/25 1901 MR#: [id number] Acct: [id number] Name: TRICE ZAMBRANO Rep #:[id number] : 1980 45 From: Werner Acosta PCP: Dr. Joaquin Huitron MD Status :ADM IN Location: [facility] SB788-3 Assessment & Plan Assessment/Plan (1) Abscess: PLAN: Patient 45-year-old female with history of type 1 diabetes, poorly controlled, and MRSA who presents with cellulitis now progressed to cutaneous abscess of the right posterior thigh. Given patient's history and the presence of a fluctuant center I offered bedside incision and drainage. Patient was readily receptive and after obtaining consents procedure was undertaken uncomplicated fashion. Cultures were submitted. Will follow-up with a wound check and packing removal after premedication tomorrow. Werner Cam MD General Surgery Endocrine Surgery Pager: [facility] [address] [place] [address], [address] [place] [address] Office: [phone] HPI Consult Data Date of Consult: 08/12/25 HPI Narrative Reason for Consultation: Cutaneous abscess HPI Narrative: TRICE ZAMBRANO, is a 45 F who was admitted to [facility] over the weekend due to progressive tenderness and soft tissue swelling consistent with posterior thigh cellulitis. Patient states that she noted her blood sugars became more difficult to control on 08/09/2025 and there is soft tissue swelling by the following day. She notes that the area has approximately doubled in sizeeach of the last 2 days. She shares she initially declined incision and drainage because CAT scan did not show an abscess. She had hoped IV antibioticswould be sufficient to take care of this infection. Patient reports a history of MRSA and necrotizing fasciitis. She states the necrotizing fasciitis spanned from the latter part of 7286-2771. She has had multiple incision and drainage procedures. Patient's hemoglobin A1c on intake was 13.8. Patient states that she takes her insulin every day but does not necessarily check her blood sugars. She denies her A1c ever being as high as ittested this admission. 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 History of necrotising fasciitis Current use of insulin Diabetes Home Medications ?Medication ?Instructions ?Recorded ?Last Taken ?Type insulin glargine 100 unit/mL (3 66 unit subcut BID patrick betes 04/23/21 08/11/25 07:30 History mL) subcutaneous pen (Basaglar KwikPen U-100 Insulin) insulin lispro 100 unit/mL 44 unit subcut TID 04/23/21 09/16/24 History subcutaneous pen (Humalog KwikPen (U-100) Insulin) atorvastatin 10 mg tablet 10 mg PO QHS 09/14/21 History lisinopril 5 mg tablet 5 mg PO DAILY 09/14/2109/15 History ropinirole 0.5 mg tablet 1.5 mg PO QHS nerve pain 08/3008/10/25 20:00 History insulin degludec 100 unit/mL (3 64 unit subcut BID 03/31 Unknown History mL) subcutaneous pen (Tresiba FlexTouch U-100 insulin) Allergy/AdvReac Type Severity Reaction Status Date / Time metformin AdvReac Nausea Verified 08/11/25 13:16 Family History Other Breast cancer Diabetes Surgical [...] Smoking Status: Never smoker Physical Exam Const alert Constitutional Narrative: Anxious, pacing Skin Skin Narrative: Erythematous and indurated area (with mild amount of fluctuance centrally) to right posterior thigh approaching the labia majorum. There is a central area oftissue necrosis. There is no drainage. There is exquisite tenderness with palpation Lab / Micro Data 08/12/25 06:10 08/12/25 15:35 Labs: Laboratory Results - last 24 hr 08/11/25 20:33: POC Glucose 318 H 08/12/25 05:04: POC Glucose 293 H 08/12/25 06:10: WBC 10.0, RBC 4.23, Hgb 12.3, Hct 37.1, MCV 87.7 D, MCH 29.1, MCHC 33.2 D, RDW Std Deviation 41.9, RDW Coeff of Meet 13.2, Plt Count 160, MPV 11.7, Sodium 134, Potassium 3.9, Chloride 105, Carbon Dioxide 14.3 L, Anion Gap 15, BUN 11, Creatinine 0.69 L, Estim Creat Clear Calc 130.97, Est GFR (MDRD) Non-Af 109, BUN/Creatinine Ratio 15.7, Glucose 283 H, Calcium 8.1 08/12/25 11:26: POC Glucose 207 H 08/12/25 15:35: Sodium 133, Potassium 4.0, Chloride 104, Carbon Dioxide 17.2 L, Anion Gap 12, BUN 12, Creatinine 0.77, Estim Creat Clear Calc 117.36, Est GFR (MDRD) Non-Af 97, BUN/Creatinine Ratio 15.0, Glucose 275 H, Calcium 8.1, Vancomycin Trough 16.0 H 08/12/25 16:26: POC Glucose 259 H Charges/Coding Visit Charges Inpatient E&M: 10755 Init Hosp L2 08/12/25 1908 <Electronically signed by Werner Cam MD> Cosigner Signature (if applicable): CC: Dr. Joaquin Huitron MD~ Signed [facility] Work Phone: [phone]) 918-908110-06-2025 Progress note Author Chantel Hand [facility] Note Date/Time August 12, 2025 6: 48pm [facility] Medical Records Department [address] [place] [address] Progress Note - Hospitalist 08/12/25 0809 MR#: [id number] Acct: [id number] Name: TRICE ZAMBRANO Rep #:[id number] : 1980 45 From: Chantel Hand DO PCP: Dr. Joaquin Huitron MD Status :ADM IN Location: [facility] [id number] Reason for Visit Chief Complaint: Recurrent perineal infection Subjective Subjective Patient still having significant pain. Nausea and vomiting maybe a little bit better. States she has had this several times previously. Is on a considerableamount of of insulin. States her primary care has managed her diabetes but she has considered for some time following up with endocrinology. We did discuss referral at discharge and she is amenable to this. We did discuss that controlling her blood sugars better would likely prevent recurrent infection. We did discuss after evaluation of the abscess that she likely needs I&D and will consult general surgery. Patient is amenable to this and states she has needed intervention previously. Objective Data Objective Data Vital Signs: Vital Signs Temp Pulse Resp BP Pulse Ox O2 Del Method 98.8 F 96 16 119/73 95 Room Air 08/12/25 02:05 08/12/25 02:05 08/12/25 02:05 08/12/25 02:05 08/12/25 07:42 08/12/25 07:42 Oxygen Delivery Method Room Air Weight: 105.596 kg Body Mass Index (BMI) 35.4 Intake & Output: Intake and Output for Last 24 Hours 08/10/25 08/11/25 08/12/25 23:59 23:59 23:59 Intake Total 3327.5 / 3327.5 1924 Balance 3327.5 / 3327.5 1924 Lab / Micro Data 08/12/25 06:10 08/12/25 06:10 Labs: Laboratory Results - last 24 hr 08/11/25 13:40: WBC 10.5, RBC 4.83, Hgb 14.0, Hct 39.9, MCV 82.6, MCH 29.0, MCHC35.1, RDW Std Deviation 38.5, RDW Coeff of Meet 12.8, Plt Count 169, MPV 11.7, Immature Gran % (Auto) 0.500, Neut % (Auto) 82.3 H, Lymph % (Auto) 10.3 L, Fulton % (Auto) 6.3, Eos % (Auto) 0.3, Baso % (Auto) 0.3, Absolute Neuts (auto) 8.7 H, Absolute Lymphs (auto) 1.08, Nucleated RBC % 0, PT 12.2, INR 0.9, APTT 24.1, Sodium 129 L, Potassium 4.2, Chloride 94 L, Carbon Dioxide 16.4 L, Anion Gap 19 H, BUN 14, Creatinine 0.73, Estim Creat Clear Calc 123.80, Est GFR (MDRD) Non-Af 103, BUN/Creatinine Ratio 19.2, Glucose 527 H*, Hemoglobin A1c 13.8 H, Lactic Acid 1.1, Calcium 9.0, C-React Prot Ext Range 112.00 H, b-Hydroxybutyric mmol/L 2.6 H 08/11/25 14:30: Serum , Qual NEGATIVE 08/11/25 15:20: Urine Color Straw, Urine Clarity Clear, Urine pH 6.0, Ur Specific Frierson 1.015, Urine Protein 30 H, Urine Glucose (UA) 1000 H, Urine Ketones 150 A*, Urine Occult Blood 50 H, Urine Nitrite Negative, Urine BilirubinNegative, Urine Urobilinogen Normal, Ur Leukocyte Esterase 100 H, Urine RBC 5-10SEEN, Urine WBC 10-25 SEEN, Ur Squamous Epith Cells 0-5 SEEN, Urine Bacteria 0 SEEN, Urine Mucus 0 SEEN 08/11/25 17:32: POC Glucose 373 H 08/11/25 20:33: POC Glucose 318 H 08/12/25 05:04: POC Glucose 293 H 08/12/25 06:10: WBC 10.0, RBC 4.23, Hgb 12.3, Hct 37.1, MCV 87.7 D, MCH 29.1, MCHC 33.2 D, RDW Std Deviation 41.9, RDW Coeff of Meet 13.2, Plt Count 160, MPV 11.7, Sodium 134, Potassium 3.9, Chloride 105, Carbon Dioxide 14.3 L, Anion Gap 15, BUN 11, Creatinine 0.69 L, Estim Creat Clear Calc 130.97, Est GFR (MDRD) Non-Af 109, BUN/Creatinine Ratio 15.7, Glucose 283 H, Calcium 8.1 ABG Data ABG results: ABG 08/11/25 16:30 Specimen Type KISHAN Sample Site [id number] VBG pH 7.45 H VBG pO2 32 VBG HCO3 22 VBG Total CO2 23 VBG O2 Sat (Calc) 67 VBG Base Excess -2 L POC Mix VBG pCO2 Pt Tmp 31.8 L O2 Delivery Device Not entered Radiography Diagnostic Testing: Radiology Impression Abdomen/Pelvis CT 08/11/25 14:10 IMPRESSION: No perirectal abscess noted Reading Location: [facility] Physical Exam Const alert, oriented x3 and no apparent distress; Negative for average body habitus or healthy appearing Constitutional Narrative: Obese, middle-aged, white female, sitting up in bed, does not appear toxic but looks slightly uncomfortable, very pleasant HEENT head/scalp atraumatic and moist oral mucous membranes Head and Scalp: normocephalic Resp normal respiratory effort, no retractions, no use of accessory muscles and clearto auscultation bilaterally Auscultation: Negative for crackles, rhonchi or wheezes Cardio regular rate, regular rhythm, S1 normal heart sound, S2 normal heart sound, no murmurs, no rub, no gallops and no clicks GI normal to inspection, nondistended, normoactive bowel sounds, soft to palpation and non-tender Extremity no clubbing, cyanosis or edema Extremity Narrative: Pedal and radial pulses are 2+ Skin Skin Narrative: Patient with a dime size to nickel size lesion on her right thigh that appears to have a pustulant head on it. Significant induration surrounding the area along with erythema and severe tenderness Neuro moves all extremities and no focal motor deficits Speech: speech normal Psych affect normal Psych Narrative: Very pleasant, interacts appropriately Assessment & Plan Assessment/Plan (1) Abscess: (2) Low serum bicarbonate: (3) Elevated beta-hydroxybutyrate: PLAN: Plan Cellulitis/abscess of the perineum - Required I&D previously which was polymicrobial including Enterococcus faecalis, E. coli, staph epi, Prevotella, and anaerobic cocci - Will continue vancomycin and Zosyn as ordered - Culture from I&D requested - Abscess noted will consult general surgery - Continue with as needed p.o. and IV pain medication Low serum bicarb - Patient does not have an elevated anion gap - Beta-hydroxybutyrate was slightly elevated however the patient had not eaten in the last 24 hours due to nausea and vomiting and pain - Symptoms are not consistent with DKA and VBG drawn on admission was alkalotic - Repeat BMP is pending Elevated beta hydroxybutyrate - Does not seem consistent with diabetic ketoacidosis as pH was not low - Suspect starvation ketosis as patient had not been eating well - Repeat BMP is pending - May reassess in a.m. now that p.o. intake has improved - Blood sugars are much improved DM-uncontrolled - A1c is 13.8 - Patient states her fastings are about 120-130 at home but they get more uncontrolled the day goes on - Continue subcu insulin but increase basal insulin and bolus insulin - continue SSI - Highly suspect that her recurrent perineal infections are related to her lack of blood sugar control -Discussed with patient in detail - Per discussion with patient will refer to endocrinology at discharge--> refer to Dr. Marques Essential hypertension/hyperlipidemia - Continue home lisinopril 5 mg daily - Continue atorvastatin Neuropathy - Continue ropinirole Obesity - BMI 35.4 - Recommend weight loss - Complicates treatment, prognosis, outcomes DVT prophylaxis - Continue enoxaparin CODE STATUS - Full code Charges/Coding Visit Charges Inpatient E&M: 99874 Subs Hosp L2 08/12/25 1848 <Electronically signed by Chantel Hand DO> Cosigner Signature (if applicable): CC: ~ Signed [facility] Work Phone: 1(494) 917-969910-06-2025 Procedure note [facility] Medical Records Department [address] [place] [address] Operative Report 08/12/25 1908 MR#: [id number] Acct: [id number] Name: TRICE ZAMBRANO Rep #:[id number] : 1980 45 From: Werner Acosta PCP: Dr. Joaquin Huitron MD Status :ADM IN Location: [place] MN801-0 Procedures Hospitalists Procedures: 97964 Drain Skin Abscess Operative Report (Standard) Operative Information Date of Procedure: 08/12/25 Pre-Operative Diagnosis: Right posterior thigh abscess Post-Operative Diagnosis: Same Surgery/Procedure Performed: Bedside incision and drainage of right posterior thigh abscess vice president and portfolio manager: No Type of Anesthesia: Local (1% plain lidocaine) Procedure Start Time: 05:45 Procedure Stop Time: 06:10 Select all DRAINS/GRAFTS/IMPLANTS that apply: None Estimated Blood Loss: 10 Specimen collected: Yes Description of specimen(s) removed: Aerobic anaerobic cultures Description of surgery: After obtaining written consent, patient was positioned supine on the hospital bed. A verbal timeout was conducted to confirm the patient and procedure. Thenthe area was anesthetized with a local block using 10 mL mL of 1% lidocaine. Then, an 11 blade scalpel was used to make a stab incision in this area and ultimately remove an ellipse of skin. This resulted in production of both bloody and mildly purulent drainage. Manual pressure was applied to further express this discharge until the cavityappeared empty. Cultures were obtained with culture swabs. The cavity was then irrigated with sterile saline. The cavity it was packed tightly with quarter inch iodoform gauze. A 4 x 4 gauze was then folded into fourths and taped over site. Patient tolerated the procedure without any apparent complication. Surgical Findings: ? Small abscess cavity tracking slightly subcutaneously laterally Complications Complications: No 08/12/251910 Cosigner Signature (if applicable): CC: Dr. Elias Barahona DO; Dr. Joaquin Huitron MD; Dr. Werner Cam MD~ Signed [facility]10-06-2025 Consult note [facility] Medical Records Department [address] [place] [address] Consultation - Surgical 08/12/25 1901 MR#: [id number] Acct: [id number] Name: TRICE ZAMBRANO Rep #:[id number] : 1980 45 From: Werner Acosta PCP: Dr. Joaquin Huitron MD Status :ADM IN Location: [place] [address] Assessment & Plan Assessment/Plan (1) Abscess: PLAN: Patient 45-year-old female with history of type 1 diabetes, poorly controlled, and MRSA who presents with cellulitis now progressed to cutaneous abscess of the right posterior thigh. Given patient's history and the presence of a fluctuant center I offered bedside incision and drainage. Patient was readily receptive and after obtaining consents procedure was undertaken uncomplicated fashion.Cultures were submitted. Will follow-up with a wound check and packing removal after premedication tomorrow. Werner Cam MD General Surgery Endocrine Surgery Pager: [facility] [address] [place] [address], Outpatient [place], [address] [place] [address] Office: [phone] HPI Consult Data Date of Consult: 08/12/25 HPI Narrative Reason for Consultation: Cutaneous abscess HPI Narrative: TRICE ZAMBRANO, is a 45 F who was admitted to [facility] over the weekend due to progressive tenderness and soft tissue swelling consistent with posterior thigh cellulitis. Patient states that she noted her blood sugars became more difficult to control on 08/09/2025 and there is soft tissue swelling by the following day. She notes that the area has approximately doubled in sizeeach ofthe last 2 days. She shares she initially declined incision and drainage because CAT scan did not show an abscess. She had hoped IV antibioticswould be sufficient to take care of this infection. Patient reports a history of MRSA and necrotizing fasciitis. She states the necrotizing fasciitis spanned from the latter part of 1947-1697. She has had multiple incision and drainage procedures. Patient's hemoglobin A1c on intake was 13.8. Patient states that she takes her insulin every day but does not necessarily check her blood sugars. She denies her A1c ever being as high as ittested this admission. 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 History of necrotising fasciitis Current use of insulin Diabetes Home Medications ?Medication ?Instructions ?Recorded ?Last Taken ?Type insulin glargine 100 unit/mL (3 66 unit subcut BID patrick betes 04/23/21 08/11/25 07:30 History mL) subcutaneous pen (Basaglar KwikPen U-100 Insulin) insulin lispro 100 unit/mL 44 unit subcut TID 04/23/21 09/16/24 History subcutaneous pen (Humalog KwikPen (U-100) Insulin) atorvastatin 10 mg tablet 10 mg PO QHS 09/14/21 History lisinopril 5 mg tablet 5 mg PO DAILY 09/14/2109/15 History ropinirole 0.5 mg tablet 1.5 mg PO QHS nerve pain 08/3008/10/25 20:00 History insulin degludec 100 unit/mL (3 64 unit subcut BID 03/31 Unknown History mL) subcutaneous pen (Tresiba FlexTouch U-100 insulin) Allergy/AdvReac Type Severity Reaction Status Date / Time metformin AdvReac Nausea Verified 08/11/25 13:16 Family History Other Breast cancer Diabetes Surgical [...] Smoking Status: Never smoker Physical Exam Const alert Constitutional Narrative: Anxious, pacing Skin Skin Narrative: Erythematous and indurated area (with mild amount of fluctuance centrally) to right posterior thighapproaching the labia majorum. There is a central area oftissue necrosis. There is no drainage. There is exquisite tenderness with palpation Lab / Micro Data 08/12/25 06:10 08/12/25 15:35 Labs: Laboratory Results - last 24 hr 08/11/25 20:33: POC Glucose 318 H 08/12/25 05:04: POC Glucose 293 H 08/12/25 06:10: WBC 10.0, RBC 4.23, Hgb 12.3, Hct 37.1, MCV 87.7 D, MCH 29.1, MCHC 33.2 D, RDW Std Deviation 41.9, RDW Coeff of Meet 13.2, Plt Count 160, MPV 11.7, Sodium 134, Potassium 3.9, Chloride 105, Carbon Dioxide 14.3 L, Anion Gap 15, BUN 11, Creatinine 0.69 L, Estim Creat Clear Calc 130.97, Est GFR (MDRD) Non-Af 109, BUN/Creatinine Ratio 15.7, Glucose 283 H, Calcium 8.1 08/12/25 11:26: POC Glucose 207 H 08/12/25 15:35: Sodium 133, Potassium 4.0, Chloride 104, Carbon Dioxide 17.2 L, Anion Gap 12, BUN 12, Creatinine 0.77, Estim Creat Clear Calc 117.36, Est GFR (MDRD) Non-Af 97, BUN/Creatinine Ratio 15.0, Glucose 275 H, Calcium 8.1, Vancomycin Trough 16.0 H 08/12/25 16:26: POC Glucose 259 H Charges/Coding Visit Charges Inpatient E&M: 04489 Init Hosp L2 08/12/25 1908 Cosigner Signature (if applicable): CC: Dr. Joaquin Huitron MD~ Signed [facility]10-06-2025 Progress note [facility] Medical Records Department [address] [place] [address] Progress Note - Hospitalist 08/12/25 0809 MR#: [id number] Acct: [id number] Name: TRICE ZAMBRANO Rep #:[id number] : 1980 45 From: Chantel Hand DO PCP: Dr. Joaquin Huitron MD Status :ADM IN Location: [place] [id number] Reason for Visit Chief Complaint: Recurrent perineal infection Subjective Subjective Patient still having significant pain. Nausea and vomiting maybe a little bit better. States she has had this several times previously. Is on a considerableamount of of insulin. States her primary care has managed her diabetes but she has considered for some time following up with endocrinology. Wedid discuss referral at discharge and she is amenable to this. We did discuss that controlling her blood sugars better would likely prevent recurrent infection. We did discuss after evaluation of theabscess that she likely needs I&D and will consult general surgery. Patient is amenable to thisand states she has needed intervention previously. Objective Data Objective Data Vital Signs: Vital Signs Temp Pulse Resp BP Pulse Ox O2 Del Method 98.8 F 96 16 119/73 95 Room Air 10/06/25 02:05 08/12/25 02:05 08/12/25 02:05 08/12/25 02:05 08/12/25 07:42 08/12/25 07:42 Oxygen Delivery Method Room Air Weight: 105.596 kg Body Mass Index (BMI) 35.4 Intake & Output: Intake and Output for Last 24 Hours 08/10/25 08/11/25 08/12/25 23:59 23:59 23:59 Intake Total 3327.5 / 3327.5 1924 Balance 3327.5 / 3327.5 1924 Lab / Micro Data 08/12/25 06:10 08/12/25 06:10 Labs: Laboratory Results - last 24 hr 08/11/25 13:40: WBC 10.5, RBC 4.83, Hgb 14.0, Hct 39.9, MCV 82.6, MCH 29.0, MCHC35.1, RDW Std Deviation 38.5, RDW Coeff of Meet 12.8, Plt Count 169, MPV 11.7, Immature Gran % (Auto) 0.500, Neut % (Auto) 82.3 H, Lymph % (Auto) 10.3 L, Fulton % (Auto) 6.3, Eos % (Auto) 0.3, Baso % (Auto) 0.3, Absolute Neuts (auto) 8.7 H, Absolute Lymphs (auto) 1.08, Nucleated RBC % 0, PT 12.2, INR 0.9, APTT 24.1, Sodium 129 L, Potassium 4.2, Chloride 94 L, Carbon Dioxide 16.4 L, Anion Gap 19 H, BUN 14, Creatinine 0.73, Estim Creat Clear Calc 123.80, Est GFR (MDRD) Non-Af 103, BUN/Creatinine Ratio 19.2, Glucose 527H*, Hemoglobin A1c 13.8 H, Lactic Acid 1.1, Calcium 9.0, C-React Prot Ext Range 112.00 H, b-Hydroxybutyric mmol/L 2.6 H 08/11/25 14:30: Serum , Qual NEGATIVE 08/11/25 15:20: Urine Color Straw, Urine Clarity Clear, Urine pH 6.0, Ur Specific Frierson 1.015, Urine Protein 30 H, Urine Glucose (UA) 1000 H, Urine Ketones 150 A*, Urine Occult Blood 50 H, Urine Nitrite Negative, Urine BilirubinNegative, Urine Urobilinogen Normal, Ur Leukocyte Esterase 100 H, Urine RBC 5-10SEEN, Urine WBC 10-25 SEEN, Ur Squamous Epith Cells 0-5 SEEN, Urine Bacteria 0 SEEN, Urine Mucus 0 SEEN 08/11/25 17:32: POC Glucose 373 H 08/11/25 20:33: POC Glucose 318 H 08/12/25 05:04: POC Glucose 293 H 08/12/25 06:10: WBC 10.0, RBC 4.23, Hgb 12.3, Hct 37.1, MCV 87.7 D, MCH 29.1, MCHC 33.2 D, RDW Std Deviation 41.9, RDW Coeff of Meet 13.2, Plt Count 160, MPV 11.7, Sodium 134, Potassium 3.9, Chloride 105, Carbon Dioxide 14.3 L, Anion Gap 15, BUN 11, Creatinine 0.69 L, Estim Creat Clear Calc 130.97, Est GFR (MDRD) Non-Af 109, BUN/Creatinine Ratio 15.7, Glucose 283 H, Calcium 8.1 ABG Data ABG results: ABG 08/11/25 16:30 Specimen Type KISHAN Sample Site [id number] VBG pH 7.45 H VBG pO2 32 VBG HCO3 22 VBG Total CO2 23 VBG O2 Sat (Calc) 67 VBG Base Excess -2 L POC Mix VBG pCO2 Pt Tmp 31.8 L O2 Delivery Device Not entered Radiography Diagnostic Testing: Radiology Impression Abdomen/Pelvis CT 08/11/25 14:10 IMPRESSION: No perirectal abscess noted Reading Location: [facility] Physical Exam Const alert, oriented x3 and no apparent distress; Negative for average body habitus or healthy appearing Constitutional Narrative: Obese, middle-aged, white female, sitting up in bed, does not appear toxic but looks slightly uncomfortable, very pleasant HEENT head/scalp atraumatic and moist oral mucous membranes Head and Scalp: normocephalic Resp normal respiratory effort, no retractions, no use of accessory muscles and clearto auscultation bilaterally Auscultation: Negative for crackles, rhonchi or wheezes Cardio regular rate, regular rhythm, S1 normal heart sound, S2 normal heart sound, no murmurs, no rub, no gallops and no clicks GI normal to inspection, nondistended, normoactive bowel sounds, soft to palpation and non-tender Extremity no clubbing, cyanosis or edema Extremity Narrative: Pedal and radial pulses are 2+ Skin Skin Narrative: Patient with a dime size to nickel size lesion on her right thigh that appears to have a pustulant head on it. Significant induration surrounding the area along with erythema and severe tenderness Neuro moves all extremities and no focal motor deficits Speech: speech normal Psych affect normal Psych Narrative: Very pleasant, interacts appropriately Assessment & Plan Assessment/Plan (1) Abscess: (2) Low serum bicarbonate: (3) Elevated beta-hydroxybutyrate: PLAN: Plan Cellulitis/abscess of the perineum - Required I&D previously which was polymicrobial including Enterococcus faecalis, E. coli, staph epi, Prevotella, and anaerobic cocci - Will continue vancomycin and Zosyn as ordered - Culture from I&D requested - Abscess noted will consult general surgery - Continue with as needed p.o. and IV pain medication Low serum bicarb - Patient does not have an elevated anion gap - Beta-hydroxybutyrate was slightly elevated however the patient had not eaten in the last 24 hoursdue to nausea and vomiting and pain - Symptoms are not consistent with DKA and VBG drawn on admission was alkalotic - Repeat BMP is pending Elevated beta hydroxybutyrate - Does not seem consistent with diabetic ketoacidosis as pH was not low - Suspect starvation ketosis as patient had not been eating well - Repeat BMP is pending - May reassess in a.m. now that p.o. intake has improved - Blood sugars are much improved DM-uncontrolled - A1c is 13.8 - Patient states her fastings are about 120-130 at home but they get more uncontrolled the day goeson - Continue subcu insulin but increase basal insulin and bolus insulin - continue SSI - Highly suspect that her recurrent perineal infections are related to her lack of blood sugar control -Discussed with patient in detail - Per discussion with patient will refer to endocrinology at discharge--> refer to Dr. Marques Essential hypertension/hyperlipidemia - Continue home lisinopril 5 mg daily - Continue atorvastatin Neuropathy - Continue ropinirole Obesity - BMI 35.4 - Recommend weight loss - Complicates treatment, prognosis, outcomes DVT prophylaxis - Continue enoxaparin CODE STATUS - Full code Charges/Coding Visit Charges Inpatient E&M: 77936 Subs Hosp L2 08/12/25 4613 Cosigner Signature (if applicable): CC: ~ Signed [facility]10-05-2025 Consult note Author Kannan Morton [facility] Note Date/Time August 11, 2025 9: 41pm [facility] Medical Records Department [address] [place] [address] Pharmacokinetic/Renal -Consult 08/11/250 MR#: [id number] Acct: [id number] Name: TRICE ZAMBRANO Rep #:[id number] : 1980 45 From: Kannan Livingston od PCP: Dr. Joaquin Huitron MD Status :ADM IN Y Location: [place] [address] Consult Antibiotic Management Pharmacy has been consulted to manage selected antibiotic: Vancomycin Type of Intervention Type of Consult: New start Labs Labs: Sodium 129 mmol/L (133-145) L 08/11/25 13:40 Potassium 4.2 mmol/L (3.3-5.1) 08/11/25 13:40 Chloride 94 mmol/L (98-108) L 08/11/25 13:40 Carbon Dioxide 16.4 mmol/L (21.0-32.0) L 08/11/25 13:40 Anion Gap 19 (5-15) H 08/11/25 13:40 BUN 14 mg/dL (4-19) 08/11/25 13:40 Creatinine 0.73 mg/dL (0.70-1.20) 08/11/25 13:40 Est GFR (MDRD) Non-Af 103 (>60) 08/11/25 13:40 BUN/Creatinine Ratio 19.2 RATIO (10-20) 08/11/25 13:40 Glucose 527 mg/dL (70-99) H* 08/11/25 13:40 Dosing Weight Weight used for dosin.6 kg Estimated Creatinine Clearance Estimated Creatinine Clearance: 123.8 Goal Trough Goal Trough: 15-20 mcg/mL Pharmacy Plan for Drug Dosing Pharmacy Plan for Drug Dosing: Pharmacy Service will continue to monitor and adjust dosing as required. ER DOSE 2GM GIVEN 08/11 @ 1632. START 1250MG Q8H AND DRAW TROUGH PRIOR TO 4TH DOSE Follow-Up Labs Follow-Up Labs: Trough: Vancomycin Date/Time Labs Ordered Labs to be done on [date and time ordered]: 08/12 @ 1600 08/11/25 2141 <Electronically signed by Kannan calvillo> Date _ Kannan Morton Cosigner Signature (if applicable): Date CC: ~ Signed [facility] Work Phone: [phone] 448-852010-05-2025 History and physical note Author Elias Barahona [facility] Note Date/Time August 11, 2025 7: 46pm [facility] Medical Records Department [address] [place] [address] H&P Exam - Hospitalist 08/11/25 1908 MR#: [id number] Acct: [id number] Name: TRICE ZAMBRANO Rep #:[id number] : 1980 45 From: Elias guerra DO PCP: Dr. Joaquin Huitron MD Status :ADM IN [facility] H[facility] - General General Date of Admission: 08/11/25 Date of Service: 08/11/25 Chief Complaint: Recurrent perineal infection HPI Narrative TRICE ZAMBRANO, is a 45 [address] presented to [facility] ED on 08/11/2025 with concern for recurrent perineal infection. Medical history is significant for left perineal cellulitis with necrotizing fasciitis to the buttocks back in April 2021. She had an extensive debridement at that time as well as creation of a colostomy, which has since been reversed. More recently she was hospitalized here in September 2024 again with a left perineal/buttock infection. Areas of fibrosis in the perianal location were seen on CT imaging but there was no evidence of necrotizing fasciitis or drainable abscess. Surgery followed and noted there is no need for surgical intervention. ID followed and patient was treated with vancomycin and Zosyn while inpatient and then discharged on 1 week of p.o. doxycycline and Augmentin. Patient reports that she recovered well at that time. She notes today that yesterday she felt asmall tender lump in the right perineal area that was pea-sized. Today it worsened significantly and was golf ball sized and was more tender, so she came in for further evaluation. In the ED she had sinus tachycardia to the 100s and was hypertensive to the 140s to 150s systolic but she was otherwise afebrile andstable on room air at rest. CT abdomen pelvis showed no perirectal abscess or other concerning findings. Labs notable for WBC count 10, sodium 129, chloride 94, glucose 527. She was given 2 L of IV fluids and IV antibiotics, and hospitalist was contacted for admission. I saw the patient at bedside in the ED. Patient was laying on her side in bed and was mildly uncomfortable due to ongoing nausea and perineal pain/discomfort. States that she has been vigilant with hygiene measures with using the restroomsince her last episode in September. She also states that she feels that her blood sugars have been fairly well-controlled recently. She did notice that herblood sugars seem to spike on Tuesday and she had decreased appetite, and that was followed by development of infection in the perineal area. She notes that the pain and nausea medications have been moderately helpful for her in the ED. She denies any other acute concerns currently. Will be admitted for further management. 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 History of necrotising fasciitis Current use of insulin Diabetes Home Medications ?Medication ?Instructions ?Recorded ?Last Taken ?Type insulin glargine 100 unit/mL (3 66 unit subcut BID patrick betes 04/23/21 09/16/24 History mL) subcutaneous pen (Basaglar KwikPen U-100 Insulin) insulin lispro 100 unit/mL 44 unit subcut TID 04/23/21 09/16/24 History subcutaneous pen (Humalog KwikPen (U-100) Insulin) atorvastatin 10 mg tablet 10 mg PO QHS 09/14/21 History lisinopril 5 mg tablet 5 mg PO DAILY 09/14/2109/15 History ropinirole 0.5 mg tablet 1.5 mg PO QHS 09/16/2409/15 History insulin degludec 100 unit/mL (3 64 unit subcut BID 03/31 Unknown History mL) subcutaneous pen (Tresiba FlexTouch U-100 insulin) Allergy/AdvReac Type Severity Reaction Status Date / Time metformin AdvReac Nausea Verified 08/11/25 13:16 Family History Other Breast cancer Diabetes Surgical [...] Status: Never smoker ROS Constitutional Constitutional: Reports chills and fatigue; Denies fever(s) or weakness Cardiovascular Cardiovascular: Denies chest pain Respiratory/Chest Respiratory/Chest: Denies shortness of breath at rest Gastrointestinal Gastrointestinal: Reports nausea and other Details: Perineal discomfort ; Denies abdominal pain, constipation, diarrhea or vomiting Neurologic Neurologic: Denies dizziness, focal weakness or headache(s) Vital Signs Vital Signs Vital Signs: 08/11/25 13:16 08/11/25 14:18 08/11/25 15:00 Temperature 98.8 F 98.5 F 98.6 F Temperature Source Oral Oral Oral Pulse Rate 125 H 109 H 103 H Respiratory Rate 22 H 18 18 Blood Pressure 180/98 H 165/89 H 157/88 H Blood Pressure Mean 125 114 111 Pulse Ox 99 98 99 Oxygen Delivery Method Room Air Room Air Room Air 08/11/25 16:00 08/11/25 17:00 08/11/25 18:00 Temperature 98.7 F 98.6 F 98.6 F Temperature Source Oral Oral Oral Pulse Rate 103 H 101 H 101 H Respiratory Rate 16 16 18 Blood Pressure 107/77 146/62 H 128/79 H Blood Pressure Mean 87 90 95 Pulse Ox 99 98 99 Oxygen Delivery Method Room Air Room Air Room Air 08/11/25 18:13 Temperature 98.6 F Temperature Source Pulse Rate 100 Respiratory Rate 14 Blood Pressure 128/78 H Blood Pressure Mean 94 Pulse Ox 99 Oxygen Delivery Method Weight Weight: 105.6 kg Body Mass Index (BMI) 35.4 Physical Exam Const alert, oriented x3 and no apparent distress Constitutional Narrative: Pleasant middle-age female, class II obesity, mildly fatigued and mildly uncomfortable appearing due to ongoing pain and nausea, otherwise laying on her side in bed, answering questions appropriately. General Appearance: cooperative and comfortable HEENT normocephalic, head/scalp atraumatic, hearing grossly normal bilaterally, nasal mucous membranes and turbinates normal and moist oral mucous membranes Eyes PERRL, EOMs intact bilaterally and conjunctivae normal Neck full ROM Chest inspection of chest normal Resp normal respiratory effort, normal air movement, no use of accessory muscles and clear to auscultation bilaterally Cardio regular rate, regular rhythm, no murmurs and peripheral pulses 2+ throughout GI normal to inspection, nondistended, normoactive bowel sounds, soft to palpation,non-tender and non-distended Back/Spine normal ROM Extremity normal to inspection, full ROM and no pedal edema Skin Skin Narrative: Tender area over the right medial perineal area with erythema and induration noted. Minimal fluctuance and no active drainage or discharge. Psych mental status grossly normal Results Lab / Micro Data 08/11/25 13:40 08/11/25 13:40 Labs: Laboratory Results - last 24 hr 08/11/25 13:40: WBC 10.5, RBC 4.83, Hgb 14.0, Hct 39.9, MCV 82.6, MCH 29.0, MCHC35.1, RDW Std Deviation 38.5, RDW Coeff of Meet 12.8, Plt Count 169, MPV 11.7, Immature Gran % (Auto) 0.500, Neut % (Auto) 82.3 H, Lymph % (Auto) 10.3 L, Fulton % (Auto) 6.3, Eos % (Auto) 0.3, Baso % (Auto) 0.3, Absolute Neuts (auto) 8.7 H, Absolute Lymphs (auto) 1.08, Nucleated RBC % 0, PT 12.2, INR 0.9, APTT 24.1, Sodium 129 L, Potassium 4.2, Chloride 94 L, Carbon Dioxide 16.4 L, Anion Gap 19 H, BUN 14, Creatinine 0.73, Estim Creat Clear Calc 123.80, Est GFR (MDRD) Non-Af 103, BUN/Creatinine Ratio 19.2, Glucose 527 H*, Hemoglobin A1c 13.8 H, Lactic Acid 1.1, Calcium 9.0, C-React Prot Ext Range 112.00 H, b-Hydroxybutyric mmol/L 2.6 H 08/11/25 14:30: Serum , Qual NEGATIVE 08/11/25 15:20: Urine Color Straw, Urine Clarity Clear, Urine pH 6.0, Ur Specific Frierson 1.015, Urine Protein 30 H, Urine Glucose (UA) 1000 H, Urine Ketones 150 A*, Urine Occult Blood 50 H, Urine Nitrite Negative, Urine BilirubinNegative, Urine Urobilinogen Normal, Ur Leukocyte Esterase 100 H, Urine RBC 5-10SEEN, Urine WBC 10-25 SEEN, Ur Squamous Epith Cells 0-5 SEEN, Urine Bacteria 0 SEEN, Urine Mucus 0 SEEN 08/11/25 17:32: POC Glucose 373 H ABG Data ABG results: ABG 08/11/25 16:30 Specimen Type KISHAN Sample Site [id number] VBG pH 7.45 H VBG pO2 32 VBG HCO3 22 VBG Total CO2 23 VBG O2 Sat (Calc) 67 VBG Base Excess -2 L POC Mix VBG pCO2 Pt Tmp 31.8 L O2 Delivery Device Not entered Imaging Radiology Impression Abdomen/Pelvis CT 08/11/25 14:10 IMPRESSION: No perirectal abscess noted Reading [facility] Assessment & Plan Assessment/Plan (1) Cellulitis of perineum: PLAN: Plan Patient is a 45-year-old female who presented to [facility] ED on 08/11/2025 with recurrent perineal infection. 1. Recurrent perineal infection, history of necrotizing fasciitis in perineal area ? Admit under inpatient status to [facility]. History of necrotizing fasciitis in the left perineal area in 2021 requiring extensive debridement and creation of colostomy (now reversed). Hospitalized in September 2024 with left perineal infection; no surgical needs and patient improved well on antibiotics. Presentsnow with area of tenderness and erythema in the right perineal area. CT abdomenpelvis with no soft tissue swelling, abscess or other concerning findings. LRINEC score of 7 (elevated CRP of 112, Na < 135, glucose > 180) but importantlypatient has severely elevated glucose of 527 and pseudohyponatremia with sodium 129 as below. Given no concerning findings on imaging, afebrile, normal WBC count, normal hemoglobin and normal creatinine, infection is most consistent with right perineal cellulitis with low concern for necrotizing fasciitis. Willtreat with IV vancomycin and Zosyn for now. Will hold on surgery or ID consultsat this time but can consider as needed. Pain control with as needed Tylenol, oxycodone and IV Dilaudid. 2. Poorly controlled type 2 diabetes mellitus with severe hyperglycemia ? Glucose 527 on admit. A1c 13.8%. Home regimen of insulin degludec 64 units twice daily and Humalog 44 units with meals. Patient reports compliance with home insulin and reports that her sugars are typically in the high 100s to 200s. Notably anion gap 19, beta-hydroxybutyrate 2.6 and 150 ketones in the urine, but pH 7.45 on blood gas; suspect these findings are multifactorial due to starvation ketosis and elevated sugars. Given 2 L of IV fluids and 10 units of Humalog in the ED. Will give another 1 L of IV fluids over several hours tonight. Will order Lantus 55 units twice daily and Humalog 20 units with mealsplus high dose of sliding scale insulin, adjust as needed. Follow-up a.m. BMP. Her diabetes is managed by her PCP; will need close outpatient follow-up on discharge and patient would seem to be a good candidate to establish with endocrinology for improvement in diabetes control. 3. Pseudohyponatremia ? Sodium 129 on admit, but corrected sodium of 136 in setting of severe hyperglycemia as above. 4. Hypertension/hyperlipidemia ? Hypertensive to the 150s systolic in the ED. Continue home lisinopril and atorvastatin. 5. Restless leg syndrome ? Continue home ropinirole at night. 6. Class II obesity ? BMI 35.4 on admit. Complicates hospital course and care. Encouraged lifestyle modifications. DVT prophylaxis: Lovenox CODE STATUS: Full code, verified Expected disposition: Home, TBD Total clinical time spent by myself addressing the patient's medical issues, reviewing all the data, and collaborating with patient's care team: 81 minutes. Charges/Coding Visit Charges Inpatient E&M: 53501 Init Hosp L3 08/11/251945 <Electronically signed by Elias Barahona DO> Cosigner Signature (if applicable): CC: Dr. Elias Barahona DO; Dr. Joaquin Huitron MD~ Signed [facility] Work Phone: 1(183) 275-849110-05-2025 Consult note [facility] Medical Records Department [address] [place] [address] Pharmacokinetic/Renal -Consult 08/11/252139 MR#: [id number] Acct: [id number] Name: TRICE ZAMBRANO Rep #:[id number] : 1980 45 From: Kannan Livingston od PCP: Dr. Joaquin Huitron MD Status :ADM IN Location: [place] [id number] Consult Antibiotic Management Pharmacy has been consulted to manage selected antibiotic: Vancomycin Type of Intervention Type of Consult: New start Labs Labs: Sodium 129 mmol/L (133-145) L 08/11/25 13:40 Potassium 4.2 mmol/L (3.3-5.1) 08/11/25 13:40 Chloride 94 mmol/L (98-108) L 08/11/25 13:40 Carbon Dioxide 16.4 mmol/L (21.0-32.0) L 08/11/25 13:40 Anion Gap 19 (5-15) H 08/11/25 13:40 BUN 14 mg/dL (4-19) 08/11/25 13:40 Creatinine 0.73 mg/dL (0.70-1.20) 08/11/25 13:40 Est GFR (MDRD) Non-Af 103 (>60) 08/11/25 13:40 BUN/Creatinine Ratio 19.2 RATIO (10-20) 08/11/25 13:40 Glucose 527 mg/dL (70-99) H* 08/11/25 13:40 Dosing Weight Weight used for dosin.6 kg Estimated Creatinine Clearance Estimated Creatinine Clearance: 123.8 Goal Trough Goal Trough: 15-20 mcg/mL Pharmacy Plan for Drug Dosing Pharmacy Plan for Drug Dosing: Pharmacy Service will continue to monitor and adjust dosing as required. ER DOSE 2GM GIVEN 08/11 @ 1632. START 1250MG Q8H AND DRAW TROUGH PRIOR TO 4TH DOSE Follow-Up Labs Follow-Up Labs: Trough: Vancomycin Date/Time Labs Ordered Labs to be done on [date and time ordered]: 08/12 @ 1600 08/11/25 2141 lood> Date _ Kannan Hall Signature (if applicable): Date CC: ~ Signed [facility]10-05-2025 Evaluation note* Diagnosis Onset Date Resolution Status Admit Date Abscess acute August 11, 2 025 6:20pm Cellulitis of perineum acute Oc tob2024 6:20pm Cutaneous abscess of perineum acute August 11, 2025 6:20pm Elevated beta-hydroxybutyrate acute August 11, 2025 6:20pm Low serum bicarbonate acute Oct luis a2024 6:20pm Diabetes mellitus type 1 chronic August 11, 2025 6:20pm [facility] Work Phone: 1(656) 336-476910-05-[address] [facility] Medical Records Department [address] [place] [address] H&P Exam - Hospitalist 08/11/25 1908 MR#: [id number] Acct: [id number] Name: TRICE ZAMBRANO Rep #:[id number] : 1980 45 From: Elias guerra DO PCP: Dr. Joaquin Huitron MD Status :ADM IN Location: [facility] [id number] HPI - General General Date of Admission: 08/11/25 Date of Service: 08/11/25 Chief Complaint: Recurrent perineal infection HPI Narrative TRICE ZAMBRANO, is a 45 F [address] presented to [facility] ED on 08/11/2025 with concern forrecurrent perineal infection. Medical history is significant for left perineal cellulitis with necrotizing fasciitis to the buttocks back in April 2021. She had an extensive debridement at that time as well as creation of a colostomy, which has since been reversed. More recently she was hospitalizedhere in September 2024 again with a left perineal/buttock infection. Areas of fibrosis in the perianal location were seen on CT imaging but there was no evidence of necrotizing fasciitis or drainable abscess. Surgery followed and noted there is no need for surgical intervention. ID followed and patient was treated with vancomycin and Zosyn while inpatient and then discharged on 1 week of p.o. doxycycline and Augmentin. Patient reports that she recovered well at that time. She notes today that yesterday she felt asmall tender lump in the right perineal area that was pea-sized. Today it worsened significantly and was golf ball sized and was more tender, so she came in for further evaluation. In the ED she had sinus tachycardia to the 100s and was hypertensive to the 140s to 150s systolic butshe was otherwise afebrile andstable on room air at rest. CT abdomen pelvis showed no perirectal abscess or other concerning findings. Labs notable for WBC count 10, sodium 129, chloride 94, glucose 527. She was given 2 L of IV fluids and IV antibiotics, and hospitalist was contacted for admission. I saw the patient at bedside in the ED. Patient was laying on her side in bed and was mildly uncomfortable due to ongoing nausea and perineal pain/discomfort. States that she has been vigilant with hygiene measures with using the restroomsince her last episode in September. She also states that she feels that her blood sugars have been fairly well-controlled recently. She did notice that herblood sugars seem to spike on Tuesday and she had decreased appetite, and that was followed by development of infection in the perineal area. She notes that the pain and nausea medications have been moderately helpful for her in the ED. She denies any other acute concerns currently. Will be admitted for further management. 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 History of necrotising fasciitis Current use of insulin Diabetes Home Medications ?Medication ?Instructions ?Recorded ?Last Taken ?Type insulin glargine 100 unit/mL (3 66 unit subcut BID patrick betes 04/23/21 09/16/24 History mL) subcutaneous pen (Basaglar KwikPen U-100 Insulin) insulin lispro 100 unit/mL 44 unit subcut TID 04/23/21 09/16/24 History subcutaneous pen (Humalog KwikPen (U-100) Insulin) atorvastatin 10 mg tablet 10 mg PO QHS 09/14/21 History lisinopril 5 mg tablet 5 mg PO DAILY 09/14/2109/15 History ropinirole 0.5 mg tablet 1.5 mg PO QHS 09/16/2409/15 History insulin degludec 100 unit/mL (3 64 unit subcut BID 03/31 Unknown History mL) subcutaneous pen (Tresiba FlexTouch U-100 insulin) Allergy/AdvReac Type Severity Reaction Status Date / Time metformin AdvReac Nausea Verified 08/11/25 13:16 Family History Other Breast cancer Diabetes Surgical [...] Status: Never smoker ROS Constitutional Constitutional: Reports chills and fatigue; Denies fever(s) or weakness Cardiovascular Cardiovascular: Denies chest pain Respiratory/Chest Respiratory/Chest: Denies shortness of breath at rest Gastrointestinal Gastrointestinal: Reports nausea and other Details: Perineal discomfort ; Denies abdominal pain, constipation, diarrhea or vomiting Neurologic Neurologic: Denies dizziness, focal weakness or headache(s) Vital Signs Vital Signs Vital Signs: 08/11/25 13:16 08/11/25 14:18 08/11/25 15:00 Temperature 98.8 F 98.5 F 98.6 F Temperature Source Oral Oral Oral Pulse Rate 125 H 109 H 103 H Respiratory Rate 22 H 18 18 Blood Pressure 180/98 H 165/89 H 157/88 H Blood Pressure Mean 125 114 111 Pulse Ox 99 98 99 Oxygen Delivery Method Room Air Room Air Room Air 08/11/25 16:00 08/11/25 17:00 08/11/25 18:00 Temperature 98.7 F 98.6 F 98.6 F Temperature Source Oral Oral Oral Pulse Rate 103 H 101 H 101 H Respiratory Rate 16 16 18 Blood Pressure 107/77 146/62 H 128/79 H Blood Pressure Mean 87 90 95 Pulse Ox 99 98 99 Oxygen Delivery Method Room Air Room Air Room Air 08/11/25 18:13 Temperature 98.6 F Temperature Source Pulse Rate 100 Respiratory Rate 14 Blood Pressure 128/78 H Blood Pressure Mean 94 Pulse Ox 99 Oxygen Delivery Method Weight Weight: 105.6 kg Body Mass Index (BMI) 35.4 Physical Exam Const alert, oriented x3 and no apparent distress Constitutional Narrative: Pleasant middle-age female, class II obesity, mildly fatigued and mildly uncomfortable appearing due to ongoing pain and nausea, otherwise laying on her side in bed, answering questions appropriately. General Appearance: cooperative and comfortable HEENT normocephalic, head/scalp atraumatic, hearing grossly normal bilaterally, nasal mucous membranes and turbinates normal and moist oral mucous membranes Eyes PERRL, EOMs intact bilaterally and conjunctivae normal Neck full ROM Chest inspection of chest normal Resp normal respiratory effort, normal air movement, no use of accessory muscles and clear to auscultation bilaterally Cardio regular rate, regular rhythm, no murmurs and peripheral pulses 2+ throughout GI normal to inspection, nondistended, normoactive bowel sounds, soft to palpation,non-tender and non-distended Back/Spine normal ROM Extremity normal to inspection, full ROM and no pedal edema Skin Skin Narrative: Tender area over the right medial perineal area with erythema and induration noted. Minimal fluctuance and no active drainage or discharge. Psych mental status grossly normal Results Lab / Micro Data 08/11/25 13:40 08/11/25 13:40 Labs: Laboratory Results - last 24 hr 08/11/25 13:40: WBC 10.5, RBC 4.83, Hgb 14.0, Hct 39.9, MCV 82.6, MCH 29.0, MCHC35.1, RDW Std Deviation 38.5, RDW Coeff of Meet 12.8, Plt Count 169, MPV 11.7, Immature Gran % (Auto) 0.500, Neut % (Auto) 82.3 H, Lymph % (Auto) 10.3 L, Fulton % (Auto) 6.3, Eos % (Auto) 0.3, Baso % (Auto) 0.3, Absolute Neuts (auto) 8.7 H, Absolute Lymphs (auto) 1.08, Nucleated RBC % 0, PT 12.2, INR 0.9, APTT 24.1, Sodium 129 L, Potassium 4.2, Chloride 94 L, Carbon Dioxide 16.4 L, Anion Gap 19 H, BUN 14, Creatinine 0.73, Estim Creat Clear Calc 123.80, Est GFR (MDRD) Non-Af 103, BUN/Creatinine Ratio 19.2, Glucose 527H*, Hemoglobin A1c 13.8 H, Lactic Acid 1.1, Calcium 9.0, C-React Prot Ext Range 112.00 H, b-Hydroxybutyric mmol/L 2.6 H 08/11/25 14:30: Serum , Qual NEGATIVE 08/11/25 15:20: Urine Color Straw, Urine Clarity Clear, Urine pH 6.0, Ur Specific Frierson 1.015, Urine Protein 30 H, Urine Glucose (UA) 1000 H, Urine Ketones 150 A*, Urine Occult Blood 50 H, Urine Nitrite Negative, Urine BilirubinNegative, Urine Urobilinogen Normal, Ur Leukocyte Esterase 100 H, Urine RBC 5-10SEEN, Urine WBC 10-25 SEEN, Ur Squamous Epith Cells 0-5 SEEN, Urine Bacteria 0 SEEN, Urine Mucus 0 SEEN 08/11/25 17:32: POC Glucose 373 H ABG Data ABG results: ABG 08/11/25 16:30 Specimen Type KISHAN Sample Site [id number] VBG pH 7.45 H VBG pO2 32 VBG HCO3 22 VBG Total CO2 23 VBG O2 Sat (Calc) 67 VBG Base Excess -2 L POC Mix VBG pCO2 Pt Tmp 31.8 L O2 Delivery Device Not entered Imaging Radiology Impression Abdomen/Pelvis CT 08/11/25 14:10 IMPRESSION: No perirectal abscess noted [facility] Assessment & Plan Assessment/Plan (1) Cellulitis of perineum: PLAN: Plan Patient is a 45-year-old female who presented to [facility] ED on 08/11/2025 with recurrent perineal infection. 1. Recurrent perineal infection, history of necrotizing fasciitis in perineal area ? Admit under inpatient status to [facility]. History of necrotizing fasciitis in the left perineal area in 2020 requiring extensive debridement and creation of colostomy (now reversed). Hospitalized [facility] 2023 with left perineal infection; no surgical needs and patient improved well on antibiotics. Presentsnow with area of tenderness and erythema in the right perineal area. CT abdomenpelvis with no soft tissue swelling, abscess or other concerning findings. LRINEC score of 7 (elevated CRP of 112, Na < 135, glucose > 180) but importantlypatient has severely elevated glucose of 527 and pseudohyponatremia with sodium 129 as below. Given no concerning findings on imaging, afebrile, nor mal WBC count, normal hemoglobin and normal creatinine, infection is most consistent with right perineal cellulitis with low concern for necrotizing fasciitis. Willtreat with IV vancomycin and Zosyn for now. Will hold on surgery or ID consultsat this time but can consider as needed. Pain control with as needed Tylenol, oxycodone and IV Dilaudid. 2. Poorly controlled type 2 diabetes mellitus with severe hyperglycemia ? Glucose 527 on admit. A1c 13.8%. Home regimen of insulin degludec 64 units twice daily and Humalog 44 units with meals. Patient reports compliance with home insulin and reports that her sugars are typically in the high 100s to 200s. Notably anion gap 19, beta-hydroxybutyrate 2.6 and 150 ketones in the urine, but pH 7.45 on blood gas; suspect these findings are multifactorial due to starvation ketosis and elevated sugars. Given 2 L of IV fluids and 10 units of Humalog in the ED. Will give another 1 L of IV fluids over several hours tonight. Will order Lantus 55 units twice daily and Humalog 20 units with mealsplus high dose of sliding scale insulin, adjust as needed. Follow-up a.m. BMP. Her diabetes is managed by her PCP; will need close outpatient follow-up on discharge and patient would seem to be a good candidate to establish with endocrinology for improvement in diabetes control. 3. Pseudohyponatremia ? Sodium 129 on admit, but corrected sodium of 136 in setting of severe hyperglycemia as above. 4. Hypertension/hyperlipidemia ? Hypertensive to the 150s systolic in the ED. Continue home lisinopril and atorvastatin. 5. Restless leg syndrome ? Continue home ropinirole at night. 6. Class II obesity ? BMI 35.4 on admit. Complicates hospital course and care. Encouraged lifestyle modifications. DVT prophylaxis: Lovenox CODE STATUS: Full code, verified Expected disposition: Home, TBD Total clinical time spent by myself addressing the patient's medical issues, reviewing all the data, and collaborating with patient's care team: 81 minutes. Charges/Coding Visit Charges Inpatient E&M: 08052 Init Hosp L3 08/11/251945 Cosigner Signature (if applicable): CC: Dr. Elias Barahona DO; Dr. Joaquin Huitron MD~ Signed [facility]10-05-2025 Radiology Diagnostic study note [facility] Imaging Services [address] [place] [address] Abdomen/Pelvis W IV Cont ONLY MR#: [id number] Acct: [id number] Name: TRICE ZAMBRANO Rep #: [id number] : 1980 F 45 From: Vicky Mendoza MD PCP: Dr. Joaquin Huitron MD Status: REG ER Study:Abdomen/Pelvis W IV Cont ONLY Date of E xam: 08/11/25 Exam# [id number] Ordering Dr: Myles Cabrera DO PROCEDURE: ABDOMEN/PELVIS W IV CONT ONLY 08/11/2025 REASON FOR EXAM: PERIRECTAL ABSCESS TECHNIQUE: Procedure Code: CTABDPELIV Modality: CT Procedure: ABDOMEN/PELVIS W IV CONT ONLY Coronal and Sagittal reconstruction series were provided. CONTRAST: Not specified One or more dose reduction techniques were used (e.g., Automated exposure control, adjustment of the mA and/or kV according to patient size, use of iterative reconstruction technique. COMPARISON: 01/05/2025 FINDINGS: No liver masses. Normal portal vein opacification. Normal spleen. Small hypodensity, well-defined in the body of the pancreas stable compared to prior study. Renal cysts. No hydronephrosis. No solid renal mass. No bowel obstruction. Cystic changes left adnexa. Negative for abscess. No abscess. No wall thickening. Negative for perirectal abscess. CT/Abdomen/Pelvis W IV Cont ONLY IMPRESSION: No perirectal abscess noted Reading [facility] CC: Dr. Joaquin Huitron MD; Dr. Myles Cabrera DO ~ Meat Carrier: Signed [facility]05-06-2025 NotePatient Outreach (FAMPWS) TRICE ZAMBRANO ([id number]) 1980 F Date Time Provider Department 03/12/25 JEAN CLAUDE HUITRONPWS During your visit today, we recorded the following information about you: Allergies As of Date: 03/12/2025 Noted Allergy Reaction METFORMIN 08/26/2015 6 - Diarrhea Comments: Occurred while on XR formulation TRULICITY (DULAGLUTIDE) 03/11/2016 11 - Vomiting Comments: Nausea/vomiting, diarrhea and epigastric pain. Date Reviewed: 10/22/2024 Reviewed by: Karmen Lewis LPN - Fully Assessed Visit Diagnosis:Encounter for screening mammogram for breast cancer [Z12.31] Order(s):[facility] SCREENING [facility] [[id number]] Order #: [id number] FUTURE Prescriptions as of 04/12/2025 - atorvastatin [...] times a day before meals. - Insulin [place], Disposable, (BD ULTRA-FINE VINOD PEN NEEDLE) 32 gauge x 5/32 Inject 100 Each subcutaneously four times daily. - Lancets (ACCU-CHEK SOFTCLIX LANCETS) Test blood sugar(s) 4 times daily and as needed. Dx: 250.02. Insulin: Yes - Blood-Glucose Meter (ACCU-CHEK KENNY PLUS METER) Test glucose twice daily, 250.02. Insulin yes. - Insulin [place], Disposable, (BD ULTRA-FINE VINOD PEN NEEDLE) 32 [...] legs syndrome) [G25.81] 04/24/2022 Encounter Status:Closed by [employer], PlynkedUSER on 04/12/25[facility] 10-23-2024 Telephone encounter Note* Telephone Encounter - Jean Claude Huitron MD - 10/23/2024 1:04 PM EST 6 month refills sent as requested. [facility]12-17-2024 Miscellaneous Notes* Telephone Encounter - Jean Claude Huitron MD - 10/23/2024 1:04 PM EST 6 month refills sent as requested. * Telephone Encounter - Britney Arce LPN - 10/22/2024 3:11 PM EST Patient calling forgot to ask for refills [...] 22, 2024 3:13 PM documented in this encounterOhio[facility] Telephone encounter Note * Telephone Encounter - Britney Arce LPN - 10/22/2024 4:36 PM EST Phoned patient aware rx x 3 were sent to the pharmacy. [facility]12-16-2024 Miscellaneous Notes* Telephone Encounter - Britney Arce LPN - 10/22/2024 4:36 PM EST Phoned patient aware rx x 3 were sent to the pharmacy. * Telephone Encounter - Irlanda Hogan APRN.CNP - 10/22/2024 4:31 PM EST Prescription refills sent for atorvastatin, Requip and lisinopril. Irlanda Hogan APRN.CNP documented in this encounterOhio[facility]12-[facility]24 Telephone encounter Note * Telephone Encounter - Irlanda Hogan APRN.CNP - 10/22/2024 4:31 PM EST Prescription refills sent for atorvastatin, Requip and lisinopril. Irlanda Hogan APRN.CNP [facility]12-16-2024 Telephone encounter Note* Telephone Encounter - Britney Arce LPN - 10/22/2024 3:11 PM EST Patient calling forgot to ask for refills [...] Arce LPN October 22, 2024 3:13 PM [facility]12-16-2024 NoteHNO ID: [id number] Author: JEAN CLAUDE HUITRON MD Service: ? [...] fasting 100-162 range with majority <140. Before [id number] with Majority around the 130-160s. Patient's last HgA1C was Hemoglobin A1C (%) Date Value 04/06/2024 8.3 08/03/2023 7.0 07/15/2021 6.9 06/01/2021 7.5 ) Last Ophthalmology exam was within the past 6 months and was negative for Diabetic Retinopathy. [facility]. Last Podiatry exam was within the past [...] File Prior to Visit Medication Sig Insulin [place], Disposable, (BD ULTRA-FINE VINOD PEN NEEDLE) 32 [...] glucose twice daily, 250.02. Insulin yes. Insulin [place], Disposable, (BD ULTRA-FINE VINOD PEN NEEDLE) 32 [...] (239 lb) LMP 0 (more content not included)...[facility]12-16-2024 History of Present illness Narrative* Jean Claude Huitron MD - 10/22/2024 7:45 AM EST Chief Complaint Patient presents with: [...] fasting 100-162 range with majority <140. Before -879 with Majority around the 130-160s. Patient's last HgA1C was Hemoglobin A1C (%) Date Value 04/06/2024 8.3 08/03/2023 7.0 07/15/2021 6.9 06/01/2021 7.5 ) Last Ophthalmology exam was within the past 6 months and was negative for Diabetic Retinopathy. [facility]. Last Podiatry exam was within the past [...] subacromial decompression, distal clavicle excision and rotator cuffrepair PAST SURGICAL HISTORY OF Kidney stone removal-Dr. [...] File Prior to Visit Medication Sig Insulin [place], Disposable, (BD ULTRA-FINE VINOD PEN NEEDLE) 32 [...] glucose twice daily, 250.02. Insulin yes. Insulin [place], Disposable, (BD ULTRA-FINE VINOD PEN NEEDLE) 32 [...] Abs Lymph 1.00 - 4.00 k/uL 3.22 Fulton% % 6.7 Abs Fulton <0.87 k/uL 0.86 Eosin% % 0.6 Abs [...] - ICD9:250.00, 790.29, V58.67, ICD10: E11.65, Z79.4 (primary diagnosis) [...] Jean Claude Huitron MD documented in this encounterOhio[facility]11-19-2024 History of Present illness Narrative* Podlogar, ANNETTE Fournier.FIELD MECHANICAL METER TESTER - 09/25/2024 7:20 AM EST 09/25/2024 Patient presents with: Hospital F/U: TCM; [facility] SUBJECTIVE: This is a 44 year old that is here today for Above Complaints, HOSPITAL/ER FOLLOW UP: Reason for visit: perianal pain and swelling Which facility: [facility] Date of visit: 09/16/2024-09/18/2024 Diagnosis: rectal abscess [...] reviewed TRANSITION CARE MANAGEMENT (TCM) INITIAL CONTACT Probation Supervisor Outreach Provider Action/FYI Initial contact with patient post discharge, spoke to patient. Patient identified by name and . TRANSITION CARE MANAGEMENT INITIAL OUTREACH DOCUMENTATION: 09/19/2024 Date of Outreach: Date of Discharge 09/18/2024 SUMMARY: -Pt discharged from [facility] on 09/18/24. -Admitted for: Rectal Abcess Do [...] MEDICATIONS Current Outpatient Medications Medication Sig Insulin [place], Disposable, (BD ULTRA-FINE VINOD PEN NEEDLE) 32 [...] glucose twice daily, 250.02. Insulin yes. Insulin [place], Disposable, (BD ULTRA-FINE VINOD PEN NEEDLE) 32 [...] (243 lb 13.3 oz) LMP 03/08/2024 (Approximate) [id number]% BMI 37.07 kg/m . Vital signs reviewed [...] - complete last day of antibiotics Irlanda Podlogar, DEOILING MACHINE OPERATOR.FIELD MECHANICAL METER TESTER Prescription instructions reviewed with patient as applicable. [...] which included preparing to see the patient, [id number] patient care, completing clinical documentation, obtaining and/or reviewing separately obtained history, performing a medically appropriate examination, counseling and educating the pat ient/family/caregiver, and ordering medications, tests, or procedures. documented in this encounterOhiohealth [facility] Hospital11-19-2024 NoteHNO ID: [id number] Author: IRLANDA HOGAN APRN.CNP Service: ? Author Type: Nurse Practitioner Type: Progress Notes Filed: 09/25/2024 08:29 Note Text: 09/25/2024 Patient presents with: Hospital F/U: TCM; [facility] SUBJECTIVE: This is a 44 year old that is here today for Above Complaints, HOSPITAL/ER FOLLOW UP: Reason for visit: perianal pain and swelling Which facility: [facility] Date of visit: 09/16/2024-09/18/2024 Diagnosis: rectal abscess [...] reviewed TRANSITION CARE MANAGEMENT (TCM) INITIAL CONTACT Probation Supervisor Outreach Provider Action/FYI Initial contact with patient post discharge, spoke to patient. Patient identified by name and . TRANSITION CARE MANAGEMENT INITIAL OUTREACH DOCUMENTATION: 09/19/2024 Date of Outreach: Date of Discharge 09/18/2024 SUMMARY: -Pt discharged from [facility] on 09/18/24. -Admitted for: Rectal Abcess Do [...] MEDICATIONS Current Outpatient Medications Medication Sig Insulin [place], Disposable, (BD ULTRA-FINE VINOD PEN NEEDLE) 32 [...] glucose twice daily, 250.02. Insulin yes. Insulin [place], Disposable, (BD ULTRA-FINE VINOD PEN NEEDLE) 32 [...] no tenderness to p (more content not included)...[facility]11-18-20[facility] Telephone encounter Note* Telephone Encounter - Alejandra Larkin RN - 09/24/2024 12:02 PM EST Patient calls back and is rescheduled to see Irlanda tomorrow morning. Alejandra Larkin RN [facility]11-18-2024 Miscellaneous Notes* Telephone Encounter - Alejandra Larkin RN - 09/24/2024 12:02 PM EST Patient calls back and is rescheduled to see Irlanda tomorrow morning. Alejandra Larkin RN * Telephone Encounter - Gabrieal Llamas LPN - 09/24/2024 10:23 AM EST Telephone call placed to patient. Message left to call office back to change appointment. Gabriela Llamas LPN documented in this encounterOhio[facility]11-18-2024 Telephone encounter Note * Telephone Encounter - Gabriela Llamas LPN - 09/24/2024 10:23 AM EST Telephone call placed to patient. Message left to call office back to change appointment. Gabriela Llamas LPN [facility]11-14-2024 NoteHNO ID: [id number] Author: JEAN CLAUDE HUITRON MD Service: ? Author Type: Physician Type: Progress Notes Filed: 09/20/2024 11:18 Note Text: Reviewed.[facility]11-14-2024 History of Present illness Narrative* Jean Claude Huitron MD - 09/20/2024 11:18 AM EST Reviewed. * Brayden Bird RN - 09/19/2024 7:57 PM EST Patient returned call. TCM questions reviewed. Brayden Bird, RN * Gabriela Llamas LPN - 09/19/2024 7:39 PM EST 2nd attempt at reaching patient. Message left to call office back. Gabriela Llamas LPN * Brayden Bird RN - 09/19/2024 10:28 AM EST TRANSITION CARE MANAGEMENT (TCM) INITIAL CONTACT Probation Supervisor Outreach Provider Action/FYI Initial contact with patient post discharge, spoke to patient. Patient identified by name and . TRANSITION CARE MANAGEMENT INITIAL OUTREACH DOCUMENTATION: 09/19/2024 Date of Outreach: Date of Discharge 09/18/2024 SUMMARY: -Pt discharged from [facility] on 09/18/24. -Admitted for: Rectal Abcess Do [...] recent hospitalization: Care Everywhere documented in this encounterOhiohealth Berger Hospital11-13-2024 NoteHNO ID: [id number] Author: BRAYDEN BIRD RN Service: ? Author Type: Registered Nurse Type: Progress Notes Filed: 10/22/2024 03:03 Note Text: Patient returned call. TCM questions reviewed. [facility] NoteHNO ID: [id number] Author: GABRIELA LLAMAS LPN Service: ? Author Type: LICENSED NURSE Type: Progress Notes Filed: 09/19/2024 19:39 Note Text: 2nd attempt at reaching patient. Message left to call office back. [facility]24 NoteHNO ID: [id number] Author: BRAYDEN BIRD RN Service: ? Author Type: Registered Nurse Type: Progress Notes Filed: 10/22/2024 03:03 Note Text: TRANSITION CARE MANAGEMENT (TCM) INITIAL CONTACT Probation Supervisor Outreach Provider Action/FYI Initial contact with patient post discharge, spoke to patient. Patient identified by name and . TRANSITION CARE MANAGEMENT INITIAL OUTREACH DOCUMENTATION: 09/19/2024 Date of Outreach: Date of Discharge 09/18/2024 SUMMARY: -Pt discharged from [facility] on 09/18/24. -Admitted for: Rectal Abcess Do [...] Yes Medical records from recent hospitalization: [facility] NotePatient Outreach (FAMPWS) TRICE ZAMBRANO ([id number]) 1980 F Date Time Provider Department 09/19/24 [place] During your visit today, we recorded the following information about you: Brayden Bird RN 10/22/2024 3:03 AM Signed TRANSITION CARE MANAGEMENT (TCM) INITIAL CONTACT Probation Supervisor Outreach Provider Action/FYI Initial contact with patient post discharge, spoke to patient. Patient identified by name and . TRANSITION CARE MANAGEMENT INITIAL OUTREACH DOCUMENTATION: 09/19/2024 Date of Outreach: Date of Discharge 09/18/2024 SUMMARY: -Pt discharged from [facility] on 09/18/24. -Admitted for: Rectal Abcess Do [...] for Visit: Transition Of Care [4074] Cmt: [facility] discharge 09/18/24 Prescriptions as of 10/22/2024 - Insulin [place], Disposable, (BD ULTRA-FINE VINOD PEN NEEDLE) 32 [...] twice daily, 250.02. Insulin yes. - Insulin [place], Disposable, (BD ULTRA-FINE VINOD PEN NEEDLE) 32 [...] legs syndrome) [G25.81] 04/24/2022 Encounter Status:Closed by [employer] on 10/22/24[facility] 09-18-2024 [facility] Medical Records Department [address] [place] [id number] Discharge Summary 09/18/24 1102 MR#: [id number] Acct: [id number] Name: TRICE ZAMBRANO Rep #: [id number] : 1980 44 From: Jorge Frazier DO PCP: Dr. Joaquin Huitron MD Status:DIS IN Location: [facility] GD574-0 Providers Date of Admission: 09/16/24 Date of [...] was seen in the emergency room at [facility] with complaints of pain with fever and [...] the perineal area, she was admitted to [place] [address] and placed on IV antibiotics. Patient was [...] 86.183 kg Body M (more content not included)...[facility]11-10-2024 Note HNO ID: [id number] Author: RONY CHÁVEZ APRN.[facility] Service: ? Author Type: Nurse Practitioner Type: [...] was understandable and will take her self now[facility] History of Present illness Narrative* Rony Chávez APRN.JAISON - 09/16/2024 11:02 AM EST Patient came in with possible perineal abscess. Patient has had them before. Patient has had necrotizing fasciitis in that area previously. This caused her to be in ICU and have significant medical complications from it. Due to risk factors patient is being sent to the emergency room where lab workcan be collected and the proper treatment can be given. Patient was understandable and will take her self now documented in this encounterOhiohealth Berger Hospital10-23-2024 Telephone encounter Note * Telephone Encounter - Reena Crooks LPN - 08/29/2024 10:07 AM EDT Detailed VM left on pt's identified voicemail of information below. Reena Crooks LPN [facility]10-23-2024 Miscellaneous Notes* Telephone Encounter - Reena Crooks LPN - 08/29/2024 10:07 AM EDT Detailed VM left on pt's identified voicemail of information below. Renea Crooks LPN * Telephone Encounter - Reena Crooks LPN - 08/27/2024 2:36 PM EDT Please give message to pt when she calls. Other prescriptions refilled for 30 days. Pt will need apt in office for future refills. Reena Crooks LPN * Telephone Encounter - Reena Crooks LPN - 08/27/2024 10:10 AM EDT Left a message for pt to call the office and ask to speak to a nurse. Reena Crooks LPN * Telephone Encounter - Irlnada Hogan APRN.CNP - 08/27/2024 10:03 AM EDT Patient is overdue for appointment. Please assist in scheduling. Irlanda Hogan APRN.CNP documented in this encounterOhiohealth Berger Hospital10-21-2024 Telephone encounter Note * Telephone Encounter - Reena Crooks LPN - 08/27/2024 2:38 PM EDT See other phone encounter. Reena Crooks LPN [facility]10-21-2024 Miscellaneous Notes* Telephone Encounter - Reena Crooks LPN - 08/27/2024 2:38 PM EDT See other phone encounter. Reena Crooks LPN * Telephone Encounter - Jean Claude Huitron MD - 08/27/2024 12:39 PM EDT Patient is overdue for 3 month f/u and needs to reschedule OV. Please call. Will send in rx for 30 days. * Telephone Encounter - Rosangela Paul LPN - 08/27/2024 11:55 AM EDT Prescription Refill Information The patient has been [...] 27, 2024 11:57 AM documented in this encounterOhiohealth Berger Hospital10-21-2024 Telephone encounter Note * Telephone Encounter - Reena Crooks LPN - 08/27/2024 2:36 PM EDT Please give message to pt when she calls. Other prescriptions refilled for 30 days. Pt will need apt in office for future refills. Reena Crooks LPN [facility]10-21-2024 Telephone encounter Note* Telephone Encounter - Celeste Villa LPN - 08/27/2024 2:07 PM EDT Phoned patient and detailed message left on secure VM that patient formally identifies herself regarding she needs a OV and 30 day scripts sent for requested meds in the meantime. Celeste Villa LPN [facility]10-21-2024 Miscellaneous Notes* Telephone Encounter - Celeste Villa LPN - 08/27/2024 2:07 PM EDT Phoned patient and detailed message left on secure VM that patient formally identifies herself regarding she needs a OV and 30 day scripts sent for requested meds in the meantime. Celeste Villa LPN * Telephone Encounter - Jean Claude Huitron MD - 08/27/2024 12:42 PM EDT Patient is overdue for 3 month f/u and needs to reschedule OV. Please call. Will send in rx for 30 days. * Telephone Encounter - Rosangela Paul LPN - 08/27/2024 12:10 PM EDT Prescription Refill Information The patient has been [...] 27, 2024 12:11 PM documented in this encounterOhiohealth Berger Hospital10-21-2024 Telephone encounter Note * Telephone Encounter - Jean Claude Huitron MD - 08/27/2024 12:42 PM EDT Patient is overdue for 3 month f/u and needs to reschedule OV. Please call. Will send in rx for 30 days. [facility]10-21-[facility] Telephone encounter Note* Telephone Encounter - Jean Claude Huitron MD - 08/27/2024 12:39 PM EDT Patient is overdue for 3 month f/u and needs to reschedule OV. Please call. Will send in rx for 30 days. [facility]10-21-[facility] Telephone encounter Note* Telephone Encounter - Rosangela Paul LPN - 08/27/2024 12:10 PM EDT Prescription Refill Information The patient has been [...] Paul LPN August 27, 2024 12:11 PM [facility]10-21-[facility] Telephone encounter Note* Telephone Encounter - Rosangela Pual LPN - 08/27/2024 11:55 AM EDT Prescription Refill Information The patient has been [...] Paul LPN August 27, 2024 11:57 AM T [facility]10-21-2024 Telephone encounter Note* Telephone Encounter - Reena Crooks LPN - 08/27/2024 10:10 AM EDT Left a message for pt to call the office and ask to speak to a nurse. Reena Crooks LPN [facility]10-21-2024 Telephone encounter Note* Telephone Encounter - Irlanda Hogan APRN.CNP - 08/27/2024 10:03 AM EDT Patient is overdue for appointment. Please assist in scheduling. Irlanda Hogan APRN.JAISON [facility]09-10-2024 Telephone encounter Note* Telephone Encounter - Dawson Mckeon - 07/17/2024 11:18 AM EDT Telephoned the patient regarding cancelled appt. Left a message. T [facility]09-10-2024 Miscellaneous Notes* Telephone Encounter - Dawson Mckeon - 07/17/2024 11:18 AM EDT Telephoned the patient regarding cancelled appt. Left a message. * Telephone Encounter - Indu Pham RPh - 07/17/2024 10:49 AM EDT Primary Care Pharmacy Rescheduling Outreach Patient cancelled new pharm visit on 06/14 and has not rescheduled yet. Call center, please contact patient and reschedule in person, telephone, and virtual visit for Diabetes management within ~4 week(s). (Visit length: 60 minutes) Thank you, Indu Pham PharmD, MIRA Primary Care Clinical Business Solution Analyst 07/17/2024 10:49 AM documented in this encounterOhiohealth Berger Hospital09-10-2024 Telephone encounter Note * Telephone Encounter - Indu Pham RPh - 07/17/2024 10:49 AM EDT Primary Care Pharmacy Rescheduling Outreach Patient cancelled new pharm visit on 06/14 and has not rescheduled yet. Call center, please contact patient and reschedule in person, telephone, and virtual visit for Diabetes management within ~4 week(s). (Visit length: 60 minutes) Thank you, Indu Pham PharmD, MIRA Primary Care Clinical Business Solution Analyst 07/17/2024 10:49 AM [facility] Work Phone: [phone]) 247-626509-09-2024 Telephone encounter Note* Telephone Encounter - Jonathan Kim MA - 07/16/2024 9:47 AM EDT Patient active MyChart. Patient notified via Konnekt[employer] message. Jonathan Kim MA [facility]09-09-2024 Miscellaneous Notes* Telephone Encounter - Jonathan Kim MA - 07/16/2024 9:47 AM EDT Patient active MyChart. Patient notified via [employer] message. Jonathan Kim MA * Telephone Encounter - Gabi Hsu MA - 07/13/2024 7:44 AM EDT Left VM instructing patient to return call to receive results. Gabi Hsu MA * Telephone Encounter - Rose Neves PA - 07/13/2024 7:20 AM EDT Please let patient know she does not have a UTI. Follow-up with PCP for persistent symptoms documented in this encounterOhiohealth Berger Hospital09-06-2024 Telephone encounter Note * Telephone Encounter - Gabi Hsu MA - 07/13/2024 7:44 AM EDT Left VM instructing patient to return call to receive results. Gabi Hsu MA [facility]09-06-2024 Telephone encounter Note* Telephone Encounter - Rose Neves PA - 07/13/2024 7:20 AM EDT Please let patient know she does not have a UTI. Follow-up with PCP for persistent symptoms [facility] Work Phone: [phone] 580-942709-04-2024 Instructions* Patient Instructions* Tahmina Cota - 07/11/2024 3:01 PM EDT [...] holding him or her). Tahmina Cota, Student EXPERIMENTAL MACHINIST documented in this encounterOhiohealth Berger Hospital09-04-2024 NoteHNO ID: [id number] Author: LETITIA ODELL APRN.FIELD MECHANICAL METER TESTER Service: ? Author Type: Nurse Practitioner Type: Progress Notes Filed: 07/11/2024 15:11 Note Text: Subjective Trice aZmbrano is a 44 year old female who [...] of buttock No date: Colostomy in place ([facility]) Comment: Reversed No date: Diabetes mellitus type II ([facility]) No date: Gestational diabetes No date: Hyperlipidemia No date: Kidney stones Comment: Dr. Nance 04/2022: Liver lesion No date: Neuropathy No date: Obesity (BMI 30-39.9) No date: RLS (restless legs syndrome) 04/2021: Septicemia ([facility]) Comment: buttock abscess No date: Ventral hernia [...] glucose twice daily, 250.02. Insulin yes. Insulin [place], Disposable, (BD ULTRA-FINE VINOD PEN NEEDLE) 32 [...] membrane normal. Nose: Nose normal. Mouth/Throat: Lips: [place]. Mouth: Mucous membranes are moist. Pharynx: Posterior oropharyngeal erythema present. Comments: Mild erythema posterior pharynx Eyes: Extraocular Movements: Extraocular movements intact. Conjunctiva/sclera: Conjunctivae normal. Neck: Comments: Tenderness on palpation to left anterior cervical lymph node. Cardiovascular: Rate and Rhythm: Normal rate and regular rhythm. Pulses: Normal pulses. Heart sounds: Normal heart sounds. Pulm (more content not included)...[facility]09-04-20[facility] History of Present illness Narrative* Letitia Odell APRN.FIELD MECHANICAL METER TESTER - 07/11/2024 2:09 PM EDT Subjective Trice Zambrano is a 44 year [...] of buttock No date: Colostomy in place ([facility]) Comment: Reversed No date: Diabetes mellitus type II ([facility]) No date: Gestational diabetes No date: Hyperlipidemia No date: Kidney stones Comment: Dr. Nance 04/2022: Liver lesion No date: Neuropathy No date: Obesity (BMI 30-39.9) No date: RLS (restless legs syndrome) 04/2021: Septicemia ([facility]) Comment: buttock abscess No date: Ventral hernia [...] glucose twice daily, 250.02. Insulin yes. Insulin [place], Disposable, (BD ULTRA-FINE VINOD PEN NEEDLE) 32 [...] membrane normal. Nose: Nose normal. Mouth/Throat: Lips: [place]. Mouth: Mucous membranes are moist. Pharynx: Posterior [...] is agreeable with plan. Tahmina Cota, Student EXPERIMENTAL MACHINIST TEACHING PROVIDER (Physician/PA/DEOILING MACHINE OPERATOR) NOTE OF PERSONAL INVOLVEMENT IN CARE: I have personally seen and examined the patient and performed the medical decision-making components. I have reviewed the Advanced Practice Registered Nurse (DEOILING MACHINE OPERATOR) Student's documentation and verified the findings in the note as written. Any additions or changes are noted in bold/italics. Signature: Letitia Odell Date: 07/11/2024 Time: 3:10 PM documented in this encounterOhiohealth Berger Hospital07-22-2024 Hospital Discharge instructions Patient Education 05/28/2024 17:07:57 [...] the pain will often stop. But it maycome back as the stone continues to pass [...] another one in the future. There are 4types of kidney stones. Eighty percent are calcium stones mostly calcium oxalate but also some withcalcium phosphate. The other 3 types include uric [...] stones dissolve into sand-like particles and pass rightthrough the strainer. In that case, you won [...] disease, talk with your healthcare provider before takingthese medicines. Also talk with your provider if you've had a stomach ulcer or GI bleeding. Preventing stones Each year for the next 5 to 7 years, you are at risk that a new stone will form. Your risk is a 50%chance over this time period. The risk is [...] advice until the cause of your stone isfound. Things that help: The most important thing [...] for stones by binding the minerals in thestomach and intestines before they can reach the [...] your diet may lower your risk for uricacid stones. Avoid excess sugar (sucrose) and fructose [...] for 8 hours and increasing bladder pressure [id number] [employer] [facility]. [address] [place] [address]. All rights reserved. This information is not intended as a substitute for professional medical care. Always follow yourhealthcare professional's instructions. Follow Up Care 05/28/2024 15:07:07 With:MARTHA NANCE MD, [place] Address: [address] [place] [phone] When:2-4 days [facility] 07-22-2024 Emergency department Discharge summary Discharge Instructions Thank you for allowing [facility] to assist you with your healthcare needs. The following is importantdischarge information regarding your hospital visit. Diagnosis from [...] Appointments Follow Up with MARTHA NANCE MD, Lapio When:Within 2-4 days Where:[address] [place] [phone]- [phone] Allergies NKA Medications Please ask your primary doctor or pharmacist before taking any other medication not listed, including over the counter drugs, herbal medications, vitamins and or supplements as they may interact withyour home medications. What How Much When Why [...] hours as needed for Nausea/Vomiting Unchanged acetaminophen-hydrocodone ([place] 325- 5 mg oral tablet) 1 tab(s) [...] the pain will often stop. But it maycome back as the stone continues to pass [...] another one in the future. There are 4types of kidney stones. Eighty percent are calcium stones mostly calcium oxalate but also some withcalcium phosphate. The other 3 types include uric [...] stones dissolve into sand-like particles and pass rightthrough the strainer. In that case, you won [...] disease, talk with your healthcare provider before takingthese medicines. Also talk with your provider if you've had a stomach ulcer or GI bleeding. Preventing stones Each year for the next 5 to 7 years, you are at risk that a new stone will form. Your risk is a 50%chance over this time period. The risk is [...] advice until the cause of your stone isfound. Things that help: The most important thing [...] for stones by binding the minerals in thestomach and intestines before they can reach the [...] your diet may lower your risk for uricacid stones. Avoid excess sugar (sucrose) and fructose [...] for 8 hours and increasing bladder pressure [id number] [facility]. [address] [place] [address], [place] [address]. All rights reserved. This information is not intended as a substitute for professional medical care. Always follow yourhealthcare professional's instructions. Additional Information VACCINATE! IT SAVES LIVES! Members of the community who have not yet received the COVID-19 vaccine and would like to receive it can visit one of [facility] vaccine clinics. There are many vaccine clinic locations within the [facility]. For locations and available times, please visit www.gettheshot.coronavirus.[place].gov/. It is important to note that some COVID mobile vaccine clinics are held outdoors and may be canceled in rainy or stormy conditions. To learn more about pediatric vaccinations (ages 5-11), we invite you to visit the [facility] webpage. https://www.[facility].org/pages/1533-Plree-Qbertzhtsxi-Fsabmzjbjh-Himpj-Ojq stions.htmlTo learn more about the COVID-19 vaccine, we invite you to visit the CDC website for a list of frequently asked questions. https://www.cdc.gov/coronavirus/2019-ncov/vaccines/faq.html [facility] Patient Portal Access Instructions: Stay connected with your healthcare team and access your personal medical information anytime with the [facility] Patient Portal. If you would like a full copy of your medical records please contact the [facility] Medical Records Department Tuesday through Tuesday between 8a.m. and 4:30p.m. Please follow the directions below to access the portal: 1.Access the email account you provided upon registration to the [facility].2.Look for an invitation email from [facility].3.Open the email and access the invitation link: Accept Invitation to [facility]4.Fill in the required yanez to create your account. Sign into [email or web address] with your username and password that you [...] you will allow to register on the [facility] Patient Portal for access to your information. You can also access the [facility] Patient Portal on the [employer] leola. Simply click on Health Records under [employer] and then click on the [facility] logo. HOW TO SAFELY DISPOSE OF PRESCRIPTION MEDICATIONS Please use one of the following methods to safely dispose of your unused medications. 1.Use a drug disposal kit: the drug disposal pouch allows you to safely discard your old and unuseddrugs. Ask your nurse to give you one when you are discharged.2.Visit a local take-back location: Many local pharmacies and police departments have programs that collect old and unwanted prescriptiondrugs. Call your local pharmacy or go to http://bit.[employer]/5N7Vq0k to find one close to you.3.Make use of household items: Use cat litter or old coffee grounds to dispose medications if other options arenot available. Mix your drugs with these household products, seal them in an airtight container andthrow it into the garbage. Call [facility]: [phone] to be sure your drugs can be [...] drowsiness, such as benzodiazepines, also known as benzos,including diazepam and alprazolam, muscle relaxants or sleep aids. Never sell or share prescriptionopioids. This is illegal. Store opioids in a [...] aware that I should contact my doctor. Patient/Tour Sales Representative Signature: Date/Time: Relationship to Patient: Witness Name/Signature: Date/Time: [facility]07-22-2024 Note ORIGINAL EXAMINATION: CT OF THE ABDOMEN [...] Report By: Woodrow Diaz Electronically signed By oCnor Jerome Dictated Date: 05/28/2024 4:48:07 PM Prelim Date: 05/28/2024 4:54:15 PM Sign Date: 05/28/2024 5:06:46 PM Ordering Provider: [facility]06-27-2024 Telephone encounter Note* Telephone Encounter - Jean Claude Huitron MD - 05/03/2024 8:43 AM EDT It sounds like her fasting sugars are improving, but it is hard for me to tell if the sugars beforeand after meals are in good range based on just the readings she is giving me. I would recommend OVin next 1-2 weeks to review her glucose readings in more detail. Can discuss changes to requip at that OV. [facility]06-27-[facility] Miscellaneous Notes* Telephone Encounter - Jean Claude Huitron MD - 05/03/2024 8:43 AM EDT It sounds like her fasting sugars are improving, but it is hard for me to tell if the sugars beforeand after meals are in good range based on just the readings she is giving me. I would recommend OVin next 1-2 weeks to review her glucose readings in more detail. Can discuss changes to requip at that OV. documented in this encounterOhiohealth Berger Hospital06-27-2024 Telephone encounter Note * Telephone Encounter - Celeste Villa LPN - 05/03/2024 6:44 AM EDT Prescription Refill Information The patient has been [...] Requested Prescriptions Pending Prescriptions Disp Refills Insulin [place], Disposable, (BD ULTRA-FINE VINOD PEN NEEDLE) 32 [...] Villa LPN May 03, 2024 6:44 AM [facility]06-27-2024 Miscellaneous Notes* Telephone Encounter - Celeste Villa LPN - 05/03/2024 6:44 AM EDT Prescription Refill Information The patient has been [...] Requested Prescriptions Pending Prescriptions Disp Refills Insulin [place], Disposable, (BD ULTRA-FINE VINOD PEN NEEDLE) 32 [...] 03, 2024 6:44 AM documented in this encounterOhiohealth [facility] Hospital06-05-2024 Telephone encounter Note * Telephone Encounter - Lisa Merritt OCCA - 04/11/2024 10:30 AM EDT TC to patient who verbalized understanding of providers message below with no questions at this time. VELVET Rey [facility]06-05-2024 Miscellaneous Notes* Telephone Encounter - Lisa Merritt OCCA - 04/11/2024 10:30 AM EDT TC to patient who verbalized understanding of providers message below with no questions at this time. VELVET Rey * Telephone Encounter - Jean Claude Huitron MD - 04/11/2024 10:16 AM EDT Diabetes uncontrolled with A1c up to 8.3. increase meal time insulin as discussed in office and call in 2 weeks with sugar readings. Should be checking 3-4 times daily, before meals and before bed. Continue to work on low carb diet and exercise. Keep 3 month f/u as scheduled. Urine studies shows moderately increased albumin/creatinine ration which is worse than last check 1year ago. This is caused by uncontrolled diabetes. WBC and neutrophils are mildly elevated. She was not complaining of symptoms of infection at her last OV and exam was normal. If she starts to feel ill, should notify our office. I would recommend rechecking this in about 2-3 weeks. Other labs unremarkable. [facility] Tele[facility] encounter Note * Telephone Encounter - Jean Claude Huitron MD - 04/11/2024 10:16 AM EDT Diabetes uncontrolled with A1c up to 8.3. increase meal time insulin as discussed in office and call in 2 weeks with sugar readings. Should be checking 3-4 times daily, before meals and before bed. Continue to work on low carb diet and exercise. Keep 3 month f/u as scheduled. Urine studies shows moderately increased albumin/creatinine ration which is worse than last check 1year ago. This is caused by uncontrolled diabetes. WBC and neutrophils are mildly elevated. She was not complaining of symptoms of infection at her last OV and exam was normal. If she starts to feel ill, should notify our office. I would recommend rechecking this in about 2-3 weeks. Other labs unremarkable. [facility] Telephone encounter Note* Telephone Encounter - Aleida Olivares PSS - 04/10/2024 2:43 PM EDT Telephoned the patient to schedule a new Primary Care pharmacy appt. Left a message. Made two attempts to contact the patient. Patient has not returned the call. If the patient returns a call, an appt will be scheduled. Encounter routed to the clinical pharmacist. [facility] Miscellaneous Notes* Telephone Encounter - Aleida Olivares PSS - 04/10/2024 2:43 PM EDT Telephoned the patient to schedule a new Primary Care pharmacy appt. Left a message. Made two attempts to contact the patient. Patient has not returned the call. If the patient returns a call, an appt will be scheduled. Encounter routed to the clinical pharmacist. * Telephone Encounter - Aleida Olivares PSS - 04/09/2024 11:54 AM EDT Telephoned the patient to schedule a new Primary Care pharmacy appt. Left a message. documented in this encounter[facility]06-[facility]24 Telephone encounter Note * Telephone Encounter - Aleida Olivares PSS - 04/09/2024 11:54 AM EDT Telephoned the patient to schedule a new Primary Care pharmacy appt. Left a message. [facility] History of Present illness Narrative* Jean Claude Huitron MD - 04/06/2024 7:58 AM EDT Chief Complaint Patient presents with: Physical HPI Trice Zambrano is a 43 year old female who presents here today for Above Complaints. DIABETES MELLITUS: Ms. Zambrano was last seen 10 months ago. Since our last visit she denies excessivethirst or increased frequency of urination, and new [...] was within the past 12 months at [facility]. Reports no retinopathy. Switching to [facility]. Last Podiatry exam was within the past 12 months RLS symptoms uncontrolled on 1 mg requip. Still feels like she needs to get up and move around on anightly basis. Would like to try higher dosage. Patient needs referral to new OPERATIVE SUPERVISOR for routine cervical cancer screening. Last OV with previous OPERATIVE SUPERVISOR was 2 years ago and was reportedly normal. Cannot remember the name of her last OPERATIVE SUPERVISOR today. Up to date on mammogram. Agreeable [...] DM - Controlled E11.9 Insulin: Yes Insulin [place], Disposable, (BD ULTRA-FINE VINOD PEN NEEDLE) 32 [...] No history of dysuria, frequency or incontinence OPERATIVE SUPERVISOR: Negative for abnormal vaginal bleeding, abnormal vaginal [...] deformities, ulcers, calluses, normal distal pulses, and sensitiveto 10 gm monofilament Health Maintenance List Hepatitis [...] Abs Lymph 1.00 - 4.00 k/uL 2.72 Fulton% % 7.7 Abs [place] <0.87 k/uL 0.70 Eosin% % 1.4 Abs [...] ICD9:250.00, 790.29, V58.67, ICD10: E11.65, Z79.4 - Control [...] Jean Claude Huitron MD documented in this encounterOhio[facility]03-29-2024 Miscellaneous Notes* Letter - Coordinator, Mammography - 02/03/2024 3:13 PM EDT February 06, 2024 PID: [id number] Trice Zambrano [address] [place] [address] Dear Ms. Zambrano, We are pleased to [...] report will be [facility] as part of your permanent medical record and are available for your continuing care. Thank you for allowing us to help in meeting your health care needs. Sincerely, Dr. Ellis Interpreting Radiologist [facility] Breast Imaging (Normal over 40) documented in this encounterOhiohealth [facility] Hospital12-05-2023 Evaluation + Plan note Diagnostic Tests Pending * Urinary Calculi Panel 10/11/23 [facility] 12-05-2023 Note Pathology Report verified by [facility] DAWSON HARMON Sign out Date: 10/11/2023 09:37 Performing Lab: [address] [place] [address] [address] [facility] Pathology Dept [facility] 12-05-2023 Note Pathology Report verified by [facility] DAWSON HARMON Sign out Date: 10/11/2023 09:37 Performing Lab: [address] [place] [address] [address] [facility] Pathology Dept [facility] 12-05-2023 Note Pathology Report verified by [facility] DAWSON HARMON Sign out Date: 10/11/2023 09:37 Performing Lab: [facility], [address] [place] [address] Pathology Dept [facility] 12-04-2023 Note Pathology Report verified by [facility] DAWSON HARMON Sign out Date: 10/11/2023 09:37 Performing Lab: [facility], [address] [place] [address] Pathology Dept [facility] 12-04-2023 Note Pathology Report verified by [facility] DAWSON HARMON Sign out Date: 10/11/2023 09:37 Performing Lab: [facility], [address] [place] [address] Pathology Dept [facility] 12-04-2023 Note Pathology Report verified by [facility] DAWSON HARMON Sign out Date: 10/11/2023 09:37 Performing Lab: [facility], [address] [place] [address] Pathology Dept [facility] 12-04-2023 Note Pathology Report verified by [facility] DAWSON HARMON Sign out Date: 10/11/2023 09:37 Performing Lab: [address] Pathology Dept [facility] 11-27-2023 Note. MICRO - Microbiology PROCEDURE: Urine Culture [*1] [...] Locations *1: This test was performed at: [address], [facility]09-30-2023 Hospital Discharge instructions Patient Education 09/30/2023 13:52:35 Urinary Tract Infections in Women Urinary Tract Infections in Women Urinary tract infections (UTIs) are most often caused by bacteria. These bacteria enter the urinarytract. The bacteria may come from outside the body. Or they may travel from the skin outside the rectum or vagina into the urethra. Female anatomy makes it easy for bacteria from the bowel to enter awoman s urinary tract, which is the most common source of UTI. This means women develop UTIs more often than men. Pain in or around the urinary tract is a common UTI symptom. But the only way to knowfor sure if you have a UTI for [...] feel the urge to urinate. And always urinatebefore going to sleep. Urine that stays in your bladder can lead to infection. Try to urinate before and after sex as well. Practice good personal hygiene. Wipe yourself from front to back after using the toilet. This helpskeep bacteria from getting into the urethra. Use condoms during sex. These help prevent UTIs caused by sexually transmitted bacteria. Also don'tuse spermicides during sex. These can increase the [...] If needed, more treatment may be started. 5621-5973 [facility]. [address] [place] [address], [place] [address]. All rights reserved. This information is not intended as a substitute for professional medical care. Always follow yourhealthcare professional's instructions. 09/30/2023 13:52:06 Kidney Stone w/ [...] the pain will often stop. But it maycome back as the stone continues to pass [...] another one in the future. There are 4types of kidney stones. Eighty percent are calcium stones mostly calcium oxalate but also some withcalcium phosphate. The other 3 types include uric [...] stones dissolve into sand-like particles and pass rightthrough the strainer. In that case, you won [...] disease, talk with your healthcare provider before takingthese medicines. Also talk with your provider if you've had a stomach ulcer or GI bleeding. Preventing stones Each year for the next 5 to 7 years, you are at risk that a new stone will form. Your risk is a 50%chance over this time period. The risk is [...] advice until the cause of your stone isfound. Things that help: The most important thing [...] for stones by binding the minerals in thestomach and intestines before they can reach the [...] your diet may lower your risk for uricacid stones. Avoid excess sugar (sucrose) and fructose [...] for 8 hours and increasing bladder pressure 7230-2814 [facility]. [address] [place] [address]. All rights reserved. This information is not intended as a substitute for professional medical care. Always follow yourhealthcare professional's instructions. Follow Up Care 09/30/2023 11:59:05 With:MARTHA NANCE MD, [facility] Address: [address] [place] [phone] When: Unknown Comments:Follow-up Tuesday. Return if note fever , increased pain [facility] 11-24-2023 Evaluation + Plan note Diagnostic Tests Pending * [facility] department Discharge summary Discharge Instructions Thank you for allowing [facility] to assist you with your healthcare needs. The following is importantdischarge information regarding your hospital visit. Diagnosis from Today's Visit Dysuria Flank pain Kidney stone What to Do Next Instructions from Your Care Team No qualifying data available. Post Acute Orders No qualifying data available. You Need to Schedule the Following Appointments Follow Up with MARTHA NANCE MD[facility] When Why: Follow-up Tuesday. Return if note fever , increased pain Where: [address] [place] [phone] Allergies NKA Medications Please ask your primary doctor or pharmacist before taking any other medication not listed, including over the counter drugs, herbal medications, vitamins and or supplements as they may interact withyour home medications. What How Much When Why Instructions Last Dose New acetaminophen-hydrocodone ([place] 325- 5 mg oral tablet) 1 tab(s) [...] caused by bacteria. These bacteria enter the urinarytract. The bacteria may come from outside the body. Or they may travel from the skin outside the rectum or vagina into the urethra. Female anatomy makes it easy for bacteria from the bowel to enter awoman s urinary tract, which is the most common source of UTI. This means women develop UTIs more often than men. Pain in or around the urinary tract is a common UTI symptom. But the only way to knowfor sure if you have a UTI for [...] feel the urge to urinate. And always urinatebefore going to sleep. Urine that stays in your bladder can lead to infection. Try to urinate before and after sex as well. Practice good personal hygiene. Wipe yourself from front to back after using the toilet. This helpskeep bacteria from getting into the urethra. Use condoms during sex. These help prevent UTIs caused by sexually transmitted bacteria. Also don'tuse spermicides during sex. These can increase the [...] If needed, more treatment may be started. 0349-7116 [facility]. [address] [place] [address]. All rights reserved. This information is not intended as a substitute for professional medical care. Always follow yourhealthcare professional's instructions. Kidney Stone with Pain The sharp cramping pain on either side of your lower back and nausea/vomiting that you have are because of a small stone that has formed in the kidney. It is now passing down a narrow tube (ureter) on its way to your bladder. Once the stone reaches your bladder, the pain will often stop. But it maycome back as the stone continues to pass out of the bladder and through the urethra. The stone may pass in your urine stream in one piece. The size may be 1/16 inch to 1/4 inch (1 mm to 6 mm). Or, the stone may break up into jazmny fragments that you may not even notice. Once you have had a kidney stone, you are at risk of getting another one in the future. There are 4types of kidney stones. Eighty percent are calcium stones mostly calcium oxalate but also some withcalcium phosphate. The other 3 types include uric [...] stones dissolve into sand-like particles and pass rightthrough the strainer. In that case, you won [...] disease, talk with your healthcare provider before takingthese medicines. Also talk with your provider if you've had a stomach ulcer or GI bleeding. Preventing stones Each year for the next 5 to 7 years, you are at risk that a new stone will form. Your risk is a 50%chance over this time period. The risk is [...] advice until the cause of your stone isfound. Things that help: The most important thing [...] for stones by binding the minerals in thestomach and intestines before they can reach the [...] your diet may lower your risk for uricacid stones. Avoid excess sugar (sucrose) and fructose [...] for 8 hours and increasing bladder pressure 7085-9196 [facility]. [address] [place] [address], [place] [address]. All rights reserved. This information is not intended as a substitute for professional medical care. Always follow yourhealthcare professional's instructions. Additional Information VACCINATE! IT SAVES LIVES! Members of the community who have not yet received the COVID-19 vaccine and would like to receive it can visit one of [facility] vaccine clinics. There are many vaccine clinic locations within the [facility]. For locations and available times, please visit www.[email or web address]/. It is important to note that some COVID mobile vaccine clinics are held outdoors and may be canceled in rainy or stormy conditions. To learn more about pediatric vaccinations (ages 5-11), we invite you to visit the [facility] webpage. https://www.[facility].org/pages/1584-Xhsbs-Tkfjgevcuwf-Dgxaqljfol-Emqwx-Old stions.htmlTo learn more about the COVID-19 vaccine, we invite you to visit the CDC website for a list of frequently asked questions. https://www.cdc.gov/coronavirus/2019-ncov/vaccines/faq.html [facility] Access Instructions: Stay connected with your healthcare team and access your personal medical information anytime with the [facility] Patient Portal. If you would like a full copy of your medical records please contact the [facility] Medical Records Department Tuesday through Tuesday between 8a.m. and 4:30p.m. Please follow the directions below to access the portal: 1.Access the email account you provided upon registration to the [facility].2.Look for an invitation email from [facility].3.Open the email and access the invitation link: Accept Invitation to [facility]4.Fill in the required yanez to create your account. Sign into [email or web address] with your username and password that you [...] you will allow to register on the [facility] Patient Portal for access to your information. You can also access the [facility] Patient Portal on the [employer]. Simply click on Health Records under Infakt.pl and then click on the [facility] logo. HOW TO SAFELY DISPOSE OF PRESCRIPTION MEDICATIONS Please use one of the following methods to safely dispose of your unused medications. 1.Use a drug disposal kit: the drug disposal pouch allows you to safely discard your old and unuseddrugs. Ask your nurse to give you one when you are discharged.2.Visit a local take-back location: Many local pharmacies and police departments have programs that collect old and unwanted prescriptiondrugs. Call your local pharmacy or go to http://Stat.[employer]/3L6Tu7n to find one close to you.3.Make use of household items: Use cat litter or old coffee grounds to dispose medications if other options arenot available. Mix your drugs with these household products, seal them in an airtight container andthrow it into the garbage. Call [facility]: [phone] to be sure your drugs can be [...] drowsiness, such as benzodiazepines, also known as benzos,including diazepam and alprazolam, muscle relaxants or sleep aids. Never sell or share prescriptionopioids. This is illegal. Store opioids in a [...] aware that I should contact my doctor. Patient/Tour Sales Representative Signature: Date/Time: Relationship to Patient: Witness Name/Signature: Date/Time: [facility]11-24-2023 Note ORIGINAL EXAMINATION: CT OF THE ABDOMEN [...] Sign Date: 09/30/2023 1:36:29 PM Ordering Provider: [facility]11-16-2023 Hospital Discharge instructions Patient Education 09/22/2023 18:29:47 Urinary Tract Infections in Women Urinary Tract Infections in Women Urinary tract infections (UTIs) are most often caused by bacteria. These bacteria enter the urinarytract. The bacteria may come from outside the body. Or they may travel from the skin outside the rectum or vagina into the urethra. Female anatomy makes it easy for bacteria from the bowel to enter awoman s urinary tract, which is the most common source of UTI. This means women develop UTIs more often than men. Pain in or around the urinary tract is a common UTI symptom. But the only way to knowfor sure if you have a UTI for [...] feel the urge to urinate. And always urinatebefore going to sleep. Urine that stays in your bladder can lead to infection. Try to urinate before and after sex as well. Practice good personal hygiene. Wipe yourself from front to back after using the toilet. This helpskeep bacteria from getting into the urethra. Use condoms during sex. These help prevent UTIs caused by sexually transmitted bacteria. Also don'tuse spermicides during sex. These can increase the [...] If needed, more treatment may be started. 8625-7072 [facility]. [address] [place] [address], [place] [address]. All rights reserved. This information is not intended as a substitute for professional medical care. Always follow yourhealthcare professional's instructions. Follow Up Care 09/22/2023 17:51:50 With:MARTHA NANCE MD, [facility] Address: [address] [place] [phone] When:2-4 days With:JEAN CLAUDE HUITRON MD Address: [address] [place] [address] [phone] When:2-4 days [facility] 11-16-2023 Note Discharge Instructions Thank you for allowing [facility] to assist you with your healthcare needs. The following is importantdischarge information regarding your hospital visit. Diagnosis from Today's Visit Flank pain Kidney stone UTI - Urinary tract infection What to Do Next Instructions from Your Care Team No qualifying data available. Post Acute Orders No qualifying data available. You Need to Schedule the Following Appointments Follow Up with MARTHA NANCE MD, [facility] When Within 2-4 days Where: [address] [place] [phone] Follow Up with JEAN CLAUDE HUITRON MD When Within 2-4 days Where: [address] [place] [phone]- Allergies NKA Medications Please ask your primary doctor or pharmacist before taking any other medication not listed, including over the counter drugs, herbal medications, vitamins and or supplements as they may interact withyour home medications. What How Much When Instructions [...] caused by bacteria. These bacteria enter the urinarytract. The bacteria may come from outside the body. Or they may travel from the skin outside the rectum or vagina into the urethra. Female anatomy makes it easy for bacteria from the bowel to enter awoman s urinary tract, which is the most common source of UTI. This means women develop UTIs more often than men. Pain in or around the urinary tract is a common UTI symptom. But the only way to knowfor sure if you have a UTI for [...] feel the urge to urinate. And always urinatebefore going to sleep. Urine that stays in your bladder can lead to infection. Try to urinate before and after sex as well. Practice good personal hygiene. Wipe yourself from front to back after using the toilet. This helpskeep bacteria from getting into the urethra. Use condoms during sex. These help prevent UTIs caused by sexually transmitted bacteria. Also don'tuse spermicides during sex. These can increase the [...] If needed, more treatment may be started. 5732-2876 [facility]. [address] [place] [address]. All rights reserved. This information is not intended as a substitute for professional medical care. Always follow yourhealthcare professional's instructions. Additional Information VACCINATE! IT SAVES LIVES! Members of the community who have not yet received the COVID-19 vaccine and would like to receive it can visit one of [facility] vaccine clinics. There are many vaccine clinic locations within the [facility]. For locations and available times, please visit www.[email or web address]/. It is important to note that some COVID mobile vaccine clinics are held outdoors and may be canceled in rainy or stormy conditions. To learn more about pediatric vaccinations (ages 5-11), we invite you to visit the [facility] webpage. https://www.[facility].org/pages/1854-Ngnee-Jbrzamalacq-Kbxlzjyfjz-Csixz-Hgc stions.htmlTo learn more about the COVID-19 vaccine, we invite you to visit the CDC website for a list of frequently asked questions. https://www.cdc.gov/coronavirus/2019-ncov/vaccines/faq.html [facility] Patient Portal Access Instructions: Stay connected with your healthcare team and access your personal medical information anytime with the [facility] Patient Portal. If you would like a full copy of your medical records please contact the [facility] Medical Records Department Tuesday through Tuesday between 8a.m. and 4:30p.m. Please follow the directions below to access the portal: 1.Access the email account you provided upon registration to the [facility].2.Look for an invitation email from [facility].3.Open the email and access the invitation link: Accept Invitation to [facility]4.Fill in the required yanez to create your account. Sign into [email or web address] with your username and password that you [...] you will allow to register on the [facility] Patient Portal for access to your information. You can also access the [facility] Patient Portal on the [employer]. Simply click on Health Records under [email or web address] and then click on the [facility] logo. HOW TO SAFELY DISPOSE OF PRESCRIPTION MEDICATIONS Please use one of the following methods to safely dispose of your unused medications. 1.Use a drug disposal kit: the drug disposal pouch allows you to safely discard your old and unuseddrugs. Ask your nurse to give you one when you are discharged.2.Visit a local take-back location: Many local pharmacies and police departments have programs that collect old and unwanted prescriptiondrugs. Call your local pharmacy or go to http://Stat.[employer]ance [id number] to find one close to you.3.Make use of household items: Use cat litter or old coffee grounds to dispose medications if other options arenot available. Mix your drugs with these household products, seal them in an airtight container andthrow it into the garbage. Call [facility]: [phone] to be sure your drugs can be [...] drowsiness, such as benzodiazepines, also known as benzos,including diazepam and alprazolam, muscle relaxants or sleep aids. Never sell or share prescriptionopioids. This is illegal. Store opioids in a [...] aware that I should contact my doctor. Patient/Tour Sales Representative Signature: Date/Time: Relationship to Patient: Witness Name/Signature: Date/Time: [facility]11-16-2023 Note ORIGINAL EXAMINATION: CT OF THE ABDOMEN AND PELVIS WITHOUT PCIFAGSX57/16/2023 6:38 pm TECHNIQUE: CT of the abdomen [...] Date: 09/22/2023 6:46:22 PM Ordering Provider: MYA TOVAR-[facility]10-03-2023 Miscellaneous Notes* Telephone Encounter - Celeste Villa LPN - 08/09/2023 7:13 PM EDT Form completed and forwarded to Madeline Belle and patient updated. * Telephone Encounter - Chantel Vences Ma - 08/09/2023 4:50 PM EDT Form was received and given to nurse. * Telephone Encounter - Alva MaLillie - 08/09/2023 3:12 PM EDT Did we receive a new form for this pt. She completed CMP. Lillie Nevarezwillard Coe documented in this encounterOhiohealth Berger Hospital10-03-2023 Miscellaneous Notes* Telephone Encounter - Celeste Villa LPN - 08/09/2023 7:06 PM EDT Phoned patient and updated her with results and provider's message. Surgical clearance forwarded Amy Belle as requested. * Telephone Encounter - Celeste Villa LPN - 08/09/2023 7:05 PM EDT ----- Message from Jean Claude Huitron MD sent at 08/09/2023 6:35 PM EDT ----- Normal labs. Kidney function normal with creatinine <2. Surgical clearance form signed. Please fax clearance form. documented in this encounterOhiohealth Berger Hospital10-02-2023 Miscellaneous Notes* Telephone Encounter - Chantel Vences Ma - 08/08/2023 11:43 AM EDT Notified via [employer]. Chantel Vences Ma * Telephone Encounter - Jean Claude Huitron MD - 08/08/2023 9:18 AM EDT She does not need another OV. Recommend rechecking CMP in the next couple of days. I do not have a form for this anymore. Can they fax over another form to our office? Alternatively,we can send over my last note. * Telephone Encounter - Chantel Vences Ma - 08/05/2023 3:27 PM EDT I do not see that pt has had a pre op appt recently, last OV was May 2023. Over 30 days ago. Do you want pt scheduled for pre op exam? Chantel Vences Ma documented in this encounterOhiohealth Berger Hospital09-01-2023 Miscellaneous Notes* Telephone Encounter - Emmy Rodriguez LPN - 07/08/2023 2:21 PM EDT TC to pt. Left a detailed message on a secure line with updates. Emmy Rodriguez LPN * Telephone Encounter - Irlanda Hogan APRN.CNP - 07/08/2023 2:09 PM EDT Order for Humalog sent. Please let patient know. Irlanda Hogan APRN.JAISON * Telephone Encounter - Radha Rodriguez - 07/08/2023 12:19 PM EDT Patient has been identified by [...] to the pharmacy. Please call patient at: [phone] Radha Nieves' documented in this encounterOhiohealth Berger Hospital08-02-2023 Miscellaneous Notes* Telephone Encounter - Radha Dalton MA - 06/08/2023 3:49 PM EDT Faxed as requested. Radha Dalton MA * Telephone Encounter - Britney Arce LPN - 06/08/2023 1:34 PM EDT Lucy from [employer] calling asking to have pre op clearance form faxed to [phone] if completed please. Please advise * Telephone Encounter - Chantel Vences Ma - 06/03/2023 10:44 AM EDT Type of letter/form/fax request - pre op form-left shoulder arthroscopy with subacromial decompression, distal clavicle excision and rotator cuff repair. Form received from fax on 1 floor and placed on MD desk (Dr. Huitron) for completion. Completed form needs to be faxed to [employer]. Pt has appt today for pre op exam with PCP. Surgery date to be determined. Need most recent A1c results. Pt will have pre op testing scheduled through [employer] once her surgery is scheduled. Route to PA when form completed for processing documented in this encounterOhiohealth Berger Hospital08-01-2023 Miscellaneous Notes* Telephone Encounter - Sharita Yusuf LPN - 06/07/2023 10:16 AM EDT Trice Zambrano (Siddiqui: [id number]) - [id number] Tresiba FlexTouch (insulin degludec injection) 100 Units/mL solution Status: New - Approved Created: June 03, 2023 [id number] documented in this encounterOhiohealth Berger Hospital07-28-2023 History of Present illness Narrative* Jean Claude Huitron MD - 06/03/2023 11:20 AM EDT Chief Complaint Patient presents with: Pre-Op Exam: [facility] shoulder HPI Trice Zambrano is a [...] most of the time. She is compliant withmedication(s) and is tolerating med(s) without any side effects. Taking 36 units of humalog TID instead of 32 on accident. Has been taking her long acting insulin BID like she is supposed to. Last rxwas entered erroneously. She reports checking her glucose on a twice a day schedule with sugars in the fasting 140-160 range. Getting similar readings 1 hour after lunch. Did not bring readings with her today. Patient's last HgA1C was Hemoglobin A1C (%) Date Value 12/28/2022 10.8 04/21/2022 9.7 07/15/2021 6.9 06/01/2021 7.5 ) Last Ophthalmology exam was less than 12 months ago at [facility] in [place]. Last Podiatry exam was 12 months ago. [...] by mouth twice daily. blood sugar diagnostic (PlynkedTOUCH VERIO TEST STRIPS) test strip Test blood sugar(s) 4 times daily. Dx: Type 2 DM - Controlled E11.9 Insulin: Yes atorvastatin (LIPITOR) 10 mg tablet Take 1 tablet by mouth daily at bedtime. For cholesterol. lisinopril (ZESTRIL, PRINIVIL) 5 mg tablet Take 1 tablet by mouth once daily. insulin lispro (HUMALOG KWIKPEN INSULIN) 100 unit/mL Inject 26 units subcutaneously with meals. Insulin [place], Disposable, (BD ULTRA-FINE VINOD PEN NEEDLE) 32 [...] Abs Lymph 1.00 - 4.00 k/uL 2.07 [place]% % 5.4 Abs [place] <0.87 k/uL 0.46 Eosin% % 1.4 Abs [...] - ICD9:250.00, 790.29, V58.67, ICD10: E11.65, Z79.4 (primary diagnosis) [...] Jean Claude Huitron MD documented in this encounterOhiohealth Berger Hospital07-26-2023 Miscellaneous Notes* Telephone Encounter - Dagmar Perez Ma - 06/01/2023 7:37 PM EDT Patient last visit with PCP 01/14/23 Follow up appointment scheduled 06/03/23 Dagmar Perez Ma documented in this encounterOhiohealth Berger Hospital07-10-2023 Miscellaneous Notes* Telephone Encounter - Lisa Merritt OCCA - 05/16/2023 10:57 AM EDT Patient has been identified by [...] Thank you. VELVET Rey documented in this encounterOhiohealth Berger Hospital06-07-[address] Link [facility] April 13, 2023 7:27pm Note Date/Time April 13, 2023 7:01p [facility] Medical Records Department [address] [place] [id number] Emergency Department Summary 04/13/23 MR#: [id number] Acct: [id number] Name: TRICE ZAMBRANO Rep #:[id number] : 1980 42 From: Cosme Link MD PCP: Dr. Joaquin Huitron MD Status :REG ER Location: ED ADDENDUM by Dr. Cosme Link MD on 04/13/23 at 192 When patient was informed of results. She [...] no focal motor deficits and gait normal [place] Coma Scale: document GCS findings Spontaneous Obeys Commands Oriented 15 Sensorium / Orientation: alert Plantar Reflex: Downgoing: bilateral Psych mental status grossly normal and thought process normal Skin no rashes or lesions noted, skin turgor normal and no jaundice Skin Narrative: Abrasion noted over the left follow-up MDM MDM MDM Narrative Medical decision making narrative: Per the [place] CT head rule imaging of the head [...] (Auto) 72.1 H Lymph % (Auto) 20.2 Fult[place] % (Auto) 5.1 Eos % (Auto) 1.4 [...] your Primary Care Provider. Call [facility] ([phone]) or report to the closest Emergency Room. Call 911 if necessary. 04/13/231921 <Electronically signed by Cosme Link MD> Cosigner Signature (if applicable): CC: Dr. Joaquin Huitron MD ~ Signed [facility] Work Phone: 1(362) 635-749505-31-2023 Miscellaneous Notes* Telephone Encounter - Joann Aponte - 04/06/2023 7:26 AM EDT Patient given results and verbalized understanding of instructions given. Joann Aponte * Telephone Encounter - Rony Chávez APRN.JAISON - 04/06/2023 7:15 AM EDT Negative For COVID and flu please notify thank you documented in this encounterOhiohealth Berger Hospital05-30-2023 Miscellaneous Notes* Addendum Note - Letitia Odell APRN.CNP - 04/05/2023 10:26 AM EDT Addended by: LETITIA ODELL on: 04/05/2023 10:26 AM Modules accepted: Orders documented in this encounterOhiohealth Berger Hospital05-30-2023 History of Present illness Narrative* Letitia [...] by mouth twice daily. blood sugar diagnostic (PlynkedTOUCH VERIO TEST STRIPS) test strip Test blood [...] Inject 26 units subcutaneously with meals. Insulin [place], Disposable, (BD ULTRA-FINE VINOD PEN NEEDLE) 32 [...] Discussed expected course of illness Letitia Odell APRN.JAISON documented in this encounterOhiohealth Berger Hospital05-30-2023 Instructions* Patient Instructions* Letitia Odell APRN.CNP [...] days of proper treatment. documented in this encounterOhiohealth Berger Hospital04-23-2023 History of Present illness Narrative* Bobbi [...] by mouth twice daily. blood sugar diagnostic ([employer] VERIO TEST STRIPS) test strip Test blood [...] Inject 26 units subcutaneously with meals. Insulin [place], Disposable, (BD ULTRA-FINE VINOD PEN NEEDLE) 32 [...] with her and will drive her to [facility] ER. 2. Numbness and tingling of right arm [...] Patient agreeable to treatment plan. Bobbi Herbert APRN.JAISON documented in this encounterOhiohealth Berger Hospital03-13-2023 Miscellaneous Notes* Telephone Encounter - KRYSTAL Sharpe - 01/17/2023 10:56 AM EDT Telephoned the patient to schedule a new Primary Care pharmacy appt. Left a message. documented in this encounterOhiohealth Berger Hospital03-10-2023 History of Present illness Narrative* Jean [...] fasting 200-300 range and bedtime 250-350's. Patient's uflsUnL4D was Hemoglobin A1C (%) Date Value 12/28/2022 [...] to Visit Medication Sig blood sugar diagnostic (PlynkedTOUCH VERIO TEST STRIPS) test strip Test blood [...] Inject 26 units subcutaneously with meals. Insulin [place], Disposable, (BD ULTRA-FINE VINOD PEN NEEDLE) 32 [...] hyperglycemia, with long-term current use of insulin ([facility]) - ICD9:250.00, 790.29, V58.67, ICD10: E11.65, Z79.4 [...] - CONSULT TO INTM NURSE DIABETES - [employer]PERVIS[employer] [CONSULT TO SOCIAL WORK] - CONSULT TO DIABETES EDUCATION - CONSULT TO PHARMACY - REFER BACK TO PCP FOR DM TYPE 2 MAINT Jean Claude Huitron MD documented in this encounterOhiohealth Berger Hospital03-02-2023 Miscellaneous Notes* Telephone Encounter - Celeste [...] readings and med adjustment. documented in this encounterOhiohealth Berger Hospital02-07-2023 Miscellaneous Notes* Telephone Encounter - Gabriela Llamas LPN - 12/14/2022 7:23 AM EST Patient read [employer] message x2. Gabriela Llamas LPN * Telephone Encounter - Jean Claude Huitron MD - 12/06/2022 8:44 AM EST Did they send her a list of approved insulin? documented in this encounterOhiohealth Berger Hospital01-30-2023 Miscellaneous Notes* Telephone Encounter - Chantel Vences Ma - 12/06/2022 6:52 PM EST Last office visit: 12/02/22 F/u scheduled: 12/10/22 Chantel Vences Ma documented in this encounterOhiohealth Berger Hospital01-26-2023 History of Present illness Narrative* Jean Claude Huitron MD - 12/02/2022 3:40 PM EST Chief Complaint Patient presents with: Follow Up: Follow up Immunizations: Flu vaccination HPI Trice Zambrano is a 42 year old female who presents here today for ER Follow Up. Patient evaluated at [place] ED on 11/28 for right gluteal abscess [...] as needed for pain. blood sugar diagnostic (PlynkedTOUCH VERIO TEST STRIPS) test strip Test blood [...] mouth daily at bedtime. For cholesterol. Insulin [place], Disposable, (BD ULTRA-FINE VINOD PEN NEEDLE) 32 [...] Abs Lymph 1.00 - 4.00 k/uL 1.42 [place]% % 7.6 Abs [place] <0.87 k/uL 0.78 Eosin% % 0.6 Abs [...] Negative Negative Ketones, Urine Negative Negative Specific [place], Ur 1.005 - 1.030 <=1.005 (L) Hemoglobin/Blood,Ur [...] Jean Claude Huitron MD documented in this encounterOhiohealth Berger Hospital01-23-2023 Miscellaneous Notes* Telephone Encounter - Gabriela Llamas LPN - 11/29/2022 2:08 PM EST Detailed message left on patients verified VM. Instructed to call back with questions if has any. Gabriela Llamas LPN * Telephone Encounter - Irlanda Hogan APRN.CNP - 11/29/2022 2:03 PM EST Short term supply sent. Follow-up as scheduled. Irlanda Hogan APRN.JAISON * Telephone Encounter - Brayden Bird RN - 11/29/2022 1:36 PM EST Patient calling with request for Zofran for nausea from taking Keflex prescribed in [place] ER yesterday for gluteal abscess. She says she has a follow up appointment with PCP on 12/02. [facility]. Brayden Bird RN documented in this encounterOhiohealth Berger Hospital01-22-2023 NoteCOVID 19 RESULT: SARS-CoV-2 (Agent of COVID-19) Not Detected by RT-PCR or equivalent method. This test has been authorized by FDA under an Emergency Use Authorization (EUA). INFLUENZA A PCR: Negative for Influenza A by RT-PCR INFLUENZA B PCR: Negative for Influenza B by RT-PCR RSV PCR: Negative for Respiratory Syncytial Virus (RSV) by PCRWinnsboro HospitalComment on above:Performed By: #### [id number] ####[facility]ORYCLIA [id number] [place] [address] [facility]01-19-2023 History of Present illness Narrative* Letitia Odell APRN.FIELD MECHANICAL METER TESTER - 11/25/2022 2:01 PM EST Images from [...] mouth daily at bedtime. blood sugar diagnostic (VEASYTUCH VERIO TEST STRIPS) test strip Test blood sugar(s) 4 times daily. Dx: Type 2 DM - Controlled E11.9 Insulin: Yes atorvastatin (LIPITOR) 10 mg tablet Take 1 tablet by mouth daily at bedtime. For cholesterol. lisinopril (ZESTRIL, PRINIVIL) 5 mg tablet Take 1 tablet by mouth once daily. insulin lispro (HUMALOG KWIKPEN INSULIN) 100 unit/mL Inject 26 units subcutaneously with meals. Insulin [place], Disposable, (BD ULTRA-FINE VINOD PEN NEEDLE) 32 [...] you develop a fever. Letitia Odell APRN.CNP documented in this encounterOhiohealth Berger Hospital01-19-2023 Instructions* Patient Instructions* Letitia Odell APRN.CNP [...] drainage after 3-4 days. documented in this encounterOhiohealth Berger Hospital09-07-2022 History of Present illness Narrative* Irlanda Hogan APRN.JAISON - 07/14/2022 8:14 AM EDT 07/14/2022 Patient [...] mouth daily at bedtime. blood sugar diagnostic (ONETOUCH VERIO TEST STRIPS) [...] Inject 26 units subcutaneously with meals. Insulin [place], Disposable, (BD ULTRA-FINE VINOD PEN NEEDLE) 32 [...] which included preparing to see the patient, [id number] patient care, completing clinical documentation, obtaining and/or reviewing separately obtained history, performing a medically appropriate examination, counseling and educating the pat ient/family/caregiver, and ordering medications, tests, or procedures. documented in this encounterOhiohealth Berger Hospital09-02-2022 Miscellaneous Notes* Telephone Encounter - Celeste Villa LPN - 07/09/2022 3:36 PM EDT Phoned patient and updated her with provider's message. Patient voiced understanding. * Telephone Encounter - Irlanda Hogan APRN.CNP - 07/09/2022 1:41 PM EDT Urine culture shows cipro should work for infection. Continue to take and follow-up for recheck next week as schedule. Irlanda Hogan APRN.CNP documented in this encounterOhiohealth Berger Hospital08-31-2022 Miscellaneous Notes* Telephone Encounter - Grace Donald RN - 07/07/2022 1:32 PM EDT Called [facility] Pharmacist and notified of providers message. He voices understanding. Grace Donald RN * Telephone Encounter - Irlanda Hogan APRN.CNP - 07/07/2022 1:11 PM EDT Sorry yes it should say pens, please let them know Irlanda Hogan APRN.JAISON * Telephone Encounter - Ava Kevin RN - 07/07/2022 12:58 PM EDT Pharmacist with [facility] calls to verify if Humalog and Lantus orders should say mL or pens. Current order is for each. Verbal order can be phoned to [phone]. Ava Kevin RN documented in this encounterOhiohealth Berger Hospital08-31-2022 History of Present illness Narrative* Irlanda Hogan APRN.JAISON - 07/07/2022 11:02 AM EDT 07/07/2022 Patient [...] mouth daily at bedtime. blood sugar diagnostic (VEASYTUCH VERIO TEST STRIPS) test strip Test blood [...] Inject 26 units subcutaneously with meals. Insulin [place], Disposable, (BD ULTRA-FINE VINOD PEN NEEDLE) 32 [...] size, drains or more painful Irlanda Hogan APRN.FIELD MECHANICAL METER TESTER Prescription instructions reviewed with patient as applicable. [...] which included preparing to see the patient, [id number] patient care, completing clinical documentation, obtaining and/or reviewing separately obtained history, performing a medically appropriate examination, counseling and educating the pat ient/family/caregiver, and ordering medications, tests, or procedures. documented in this encounterOhiohealth Berger Hospital08-31-2022 Miscellaneous Notes* Telephone Encounter - Jonathan Kim MA - 07/07/2022 9:28 AM EDT Scheduled with EXPERIMENTAL MACHINIST Irlanda Hogan 11 AM. Jonathan Kim MA documented in this encounterOhiohealth Berger Hospital08-18-2022 Miscellaneous Notes* Telephone Encounter - Jean [...] starting this new antibiotic? documented in this encounterOhiohealth Berger Hospital08-02-2022 History of Present illness Narrative* GRACIELA Roldan - 06/08/2022 11:30 AM EDT Trice Zambrano presents to the clinic 2 weeks [...] RTC prn GRACIELA Roldan [facility] encounterP[facility] Nurse Surgical operation note* Sandra Lloyd RN - 05/21/2022 12:10 PM EDT Discharge instructions reviewed with patient, and daughter. Questions answered. Prescription of oxycodone picked up at OP pharmacy by . See AVS & education. 1213 pm Pt discharged to home with . Dc'd with AVS, ice pack and personal belongings. Escorted to vehicle via wc by WINNIE Edwards [facility]07-15-[facility] Nurse Note* Sandra Lloyd RN - 05/21/2022 12:10 PM EDT Discharge instructions reviewed with patient, and daughter. Questions answered. Prescription of oxycodone picked up at OP pharmacy by . See AVS & education. 1213 pm Pt discharged to home with . Dc'd with AVS, ice pack and personal belongings. Escorted to vehicle via wc by WINNIE Edwards documented in this encounterOSU [facility]* Nursing Notes - Grace Bass RN - 05/21/2022 11:56 AM EDT Verbal sign-out received from Dr. Louise [facility]07-15-2022 Miscellaneous Notes* Nursing Notes - Grace Bass RN - 05/21/2022 11:56 AM EDT Verbal sign-out received from Dr. Louise * Op Note - Roxana Moore MD - 05/21/2022 10:20 AM EDT Images from the original note were not included. OPERATIVE REPORT DATE: 05/21/2022 Surgeon: Roxana Moore MD Bedspread Cutter: Raisa Laureano MD Pre-operative Diagnosis: incisional hernia, [...] portions of the procedure. Roxana Moore MD postal transportation clerk Division of General and Gastrointestinal [facility] * Brief Op Note - Raisa Laureano MD - 05/21/2022 10:13 AM EDT Trice Erica Zambrano ([id number]) PRE OPERATIVE DIAGNOSIS Incisional hernia [K43.2] POST OPERATIVE DIAGNOSIS Post-Op Diagnosis Codes: * Incisional hernia [K43.2] PROCEDURE PERFORMED Procedure(s) (LRB): REPAIR HERNIA VENTRAL ROBOTIC W/ MESH (Left) PRIMARY CLOSURE Yes INTRAOPERATIVE FINDINGS Incisional hernia sac excised. Successful intraperitoneal mesh placement SURGEON Surgeon(s) and Role: * Roxana Moore MD - Primary ANESTHESIOLOGIST Anesthesiologist: Steve Louise MD Bad Cloth Checker: Feras J Banna, AA SURGICAL STAFF Rhinologist: Leila Briseno RN Relief Scrub: David García [...] surgery with OR personnel. documented in this encounterOSU [facility]07-15-2022 Note* Op Note - Roxana Moore MD - 05/21/2022 10:20 AM EDT Images from the original note were not included. OPERATIVE REPORT DATE: 05/21/2022 Surgeon: Roxana Moore MD Bedspread Cutter: Raisa Laureano MD Pre-operative Diagnosis: incisional hernia, [...] portions of the procedure. Roxana Moore MD postal transportation clerk Division of General and Gastrointestinal Surgery [facility] Hospital Discharge instructions* Discharge Instructions* Raisa [...] not mow the lawn, use a vacuum barrel cleaner, or do any other strenuous activities [...] visit you can be scheduled by contacting [phone]. Questions/Concerns/Contacts During normal business hours 8am-4pm: Call [phone]. After 4pm weekdays and on weekends: Call the [phone] for the on-call General Surgery Resident. A good option for most issues (especially after surgery) is to be seen at [facility] in [place] at [address] [facility] (1st floor, [address]), [place] [address]. This facilityis open seven days a week from 10am-9:30pm. Call [phone] for additional information. If you are unable to reach your doctor and it is a medical emergency, dial 911 or report to the nearest Emergency Department for evaluation. [facility] Main General Surgery [address] [facility] [address] [address] [facility] East General Surgery 11th Floor [address] [place] [address] [facility] Outpatient Care [facility] Surgery [address] [place] [address] [id number] documented in this encounterOSU [facility]07-15-2022 Note* Brief Op Note - Raisa Laureano MD - 05/21/2022 10:13 AM EDT Trice Zambrano ([id number]) PRE OPERATIVE DIAGNOSIS Incisional hernia [K43.2] POST OPERATIVE DIAGNOSIS Post-Op Diagnosis Codes: * Incisional hernia [K43.2] PROCEDURE PERFORMED Procedure(s) (LRB): REPAIR HERNIA VENTRAL ROBOTIC W/ MESH (Left) PRIMARY CLOSURE Yes INTRAOPERATIVE FINDINGS Incisional hernia sac excised. Successful intraperitoneal mesh placement SURGEON Surgeon(s) and Role: * Roxana Moore MD - Primary ANESTHESIOLOGIST Anesthesiologist: Steve Louise MD Bad Cloth Checker: NAVIN Frias SURGICAL STAFF Rhinologist: Leila Briseno RN Relief Scrub: David García RN Scrub Person: Grace Perea COMPLICATIONS None ESTIMATED BLOOD LOSS 10 ml SPECIMENS No specimen sent * No specimens in log * Raisa Laureano MD May 21, 2022 10:13 AM [facility] Note* Nursing Notes - Karissa Almanzar RN - 05/21/2022 7:28 AM EDT ISBAR handoff procedure completed with anesthesia staff and surgery RN. Patient stable, no distress, transferred to surgery with OR personnel. [facility] History and physical note* Roxana Moore [...] N/A; Surgeon: Kecia Carvalho MD; Location: [facility] ENDOSCOPY REVISION COLOSTOMY W/ REPAIR PARACOLOSTOMY HERNIA [...] hernia repair with mesh Roxana Moore MD postal transportation clerk Division of General and Gastrointestinal Surgery [facility] Work Phone: 1(894) 416-606007-15-2022 History and physical note* Roxana Moore MD [...] hernia repair with mesh Roxana Moore MD postal transportation clerk Division of General and Gastrointestinal Surgery [facility] documented in this encounterPike [facility]07-08-2022 Miscellaneous Notes* Telephone Encounter - Chantel Vences Ma - 05/14/2022 10:04 AM EDT Pt notified of results via [employer]. Chantel Vences Ma * Telephone Encounter - [...] improve fatty liver disease. documented in this encounterOhiohealth Berger Hospital07-01-2022 History of Present illness Narrative* Kecia Diaz, RT(R) - 05/07/2022 3:00 PM EDT Radiology Service [...] 2022 TIME: 3:40 PM documented in this encounterOhio[facility]06-16-[facility]22 History of Present illness Narrative* Jean [...] reports that HPV and pap were negative. [place] SUPERINTENDENT CEMETERY. Up to date on COVID vaccine. Will [...] subcutaneously twice a day blood sugar diagnostic (PlynkedTOUCH VERIO TEST STRIPS) test strip Test blood sugar(s) 4 times daily. Dx: Type 2 DM - Controlled E11.9 Insulin: Yes Insulin [place], Disposable, (BD ULTRA-FINE VINOD PEN NEEDLE) 32 [...] No history of dysuria, frequency or incontinence OPERATIVE SUPERVISOR: Negative for abnormal vaginal bleeding, abnormal vaginal [...] arise. - Discussed diabetic education issues of middle or intermediate school principal diabetic complications, hypoglycemic symptoms, hyperglycemic symptoms, diet, [...] or gangrene - ICD9: 553.20, ICD10: K43.9 2/2 ileostomy reversal/closure. F/u with surgeon as scheduled. [...] ICD9: V76.2, ICD10: Z12.4 Requesting referral to OPERATIVE SUPERVISOR within [facility] system. - CONSULT TO GYNECOLOGY Jean Claude Huitron MD documented in this encounterOhiohealth Berger Hospital05-27-2022 Miscellaneous Notes* Telephone Encounter - Gabriela Llamas LPN - 04/02/2022 2:30 PM EDT Patient phones requesting refills as follows: Pending Prescriptions Disp Refills INSULIN LISPRO (U-100) 100 UNIT/ML SUBCUTANEOUS PEN 15 Pen 2 Sig: Inject 22 units subcutaneously with meals. TESSA: No AMIRAH 12/09/21 NOV 04/22/22 Please review and advise. Gabriela Llamas LPN documented in this encounterOhiohealth Berger Hospital05-26-2022 History of Present illness Narrative* Roxana [...] Laterality: N/A; Surgeon: Kecia Carvalho MD; Location: [facility] ENDOSCOPY REVISION COLOSTOMY W/ REPAIR PARACOLOSTOMY HERNIA OPEN N/A 09/09/2021 Laterality: N/A; Surgeon: Kecia Carvalho MD; [facility] COLON[facility] DIAGNOSTIC N/A 08/17/2021 Laterality: N/A; Surgeon: Kecia Carvalho MD; [facility] COLOSTOMY LAPAROSCOPIC N/A 05/13/2021 Laterality: N/A; Surgeon: Trace Bailey MD; [facility] OR DEBRIDEMENT SQ TISSUE Midline 05/06/2021 Laterality: Midline; Surgeon: Jean Carlos Dumont MD; [facility] MA[facility] HOME MEDICATIONS: Outpatient Medications Prior [...] Take 1 capsule by mouth daily. PEG 4958-HIn-HaRyq-NaCl-NaSulf (peg 3350 w/electrolytes) 236 g Recon Soln [...] -- Pre-op orders placed Roxana Moore MD postal transportation clerk Division of General and Gastrointestinal [facility] documented in [facility] History of Present illness Narrative* Kecia [...] liver lesion noted on non- con CT, wehave printed the report for her to bring [...] concerns. Kecia Carvalho MD documented in this encounterOS[facility]04-27-2022 Miscellaneous Notes* Telephone Encounter - Reena [...] you. Reena Crooks LPN documented in this encounterOhiohealth Berger Hospital04-25-2022 Miscellaneous Notes* Telephone Encounter - Ambrosio Jarrett Ma - 03/01/2022 2:43 PM EDT Notified via [employer]. * Telephone Encounter - Jean Claude Huitron [...] Thank you. LANDEN Rey documented in this encounterOhiohealth Berger Hospital07-27-2021 History of Present illness Narrative* Trace [...] Bailey MD 06/13/2021 documented in this encounterOSU [facility] HospitalConsult note Author Kannan Morton [facility] Note Date/Time August 11, 2025 9: 41pm [facility] Medical Records Department [address] [place] [address] Pharmacokinetic/Renal -Consult 08/11/25 2140 MR#: [id number] Acct: [id number] Name: TRCIE ZAMBRANO Rep #:[id number] : 1980 45 From: Kannan Living[place] od PCP: Dr. Joaquin Huitron MD Status :ADM IN Y Location: MS3 [id number] Consult Antibiotic Management Pharmacy has been consulted to manage selected antibiotic: Vancomycin Type of Intervention Type of Consult: New start Labs Labs: Sodium 129 mmol/L (133-145) L 08/11/25 13:40 Potassium 4.2 mmol/L (3.3-5.1) 08/11/25 13:40 Chloride 94 mmol/L (98-108) L 08/11/25 13:40 Carbon Dioxide 16.4 mmol/L (21.0-32.0) L 08/11/25 13:40 Anion Gap 19 (5-15) H 08/11/25 13:40 BUN 14 mg/dL (4-19) 08/11/25 13:40 Creatinine 0.73 mg/dL (0.70-1.20) 08/11/25 13:40 Est GFR (MDRD) Non-Af 103 (>60) 08/11/25 13:40 BUN/Creatinine Ratio 19.2 RATIO (10-20) 08/11/25 13:40 Glucose 527 mg/dL (70-99) H* 08/11/25 13:40 Dosing Weight Weight used for dosin.6 kg Estimated Creatinine Clearance Estimated Creatinine Clearance: 123.8 Goal Trough Goal Trough: 15-20 mcg/mL Pharmacy Plan for Drug Dosing Pharmacy Plan for Drug Dosing: Pharmacy Service will continue to monitor and adjust dosing as required. ER DOSE 2GM GIVEN 08/11 @ 1632. START 1250MG Q8H AND DRAW TROUGH PRIOR TO 4TH DOSE Follow-Up Labs Follow-Up Labs: Trough: Vancomycin Date/Time Labs Ordered Labs to be done on [date and time ordered]: 08/12 @ 1600 08/11/25 2141 <Electronically signed by Kannan calvillo> Date _ Kannan Morton Cosigner Signature (if applicable): Date CC: ~ Signed [facility] Work Phone: Discharge summary Author Chantel Hand [facility] Note Date/Time August 15, 2025 12 :28pm [facility] Medical Records Department [address] [place] [address] Discharge Summary 08/15/25 1208 MR#: [id number] Acct: [id number] Name: TRICE ZAMBRANO Rep #:[id number] : 1980 45 From: Chantel Hand DO PCP: Dr. Joaquin Huitron MD Status :ADM IN Location: [facility] [id number] Providers Date of Admission: 08/11/25 Date of Discharge: 08/15/25 Primary Care Physician: Dr. Joaquin Huitron MD Consultations 08/12/25 16:36 Consult: General Surgery Routine Consulting Provider: Werner Cam Reason for Consult: R Leg abscess needs I/D EMERGENT Consult: No MD Notified: Yes Date Notified: 08/12/25 Time Notified: 16:36 Method of Notification: Verbal 08/14/25 10:20 Consult: Infectious Disease Routine Consulting Provider: Fran Daley Reason for Consult: abscess EMERGENT Consult: No MD Notified: Yes Date Notified: 08/14/25 Time Notified: 10:47 Method of Notification: Text Reason For Visit: RIGHT PERIANAL CELLULITIS Diagnosis Discharge Diagnosis (1) Abscess: Status: Acute Code(s): L02.91 - Cutaneous abscess, unspecified Medications at Discharge Home Medications insulin glargine 100 unit/mL (3 mL) subcutaneous pen (Basaglar KwikPen U-100 Insulin) 66 unit subcut BID diabetes 04/23/21 insulin lispro 100 unit/mL subcutaneous pen (Humalog KwikPen (U-100) Insulin) 44unit subcut TID 04/23/21 atorvastatin 10 mg tablet 10 mg PO QHS 09/14/21 ropinirole 0.5 mg tablet 1.5 mg PO QHS nerve pain 09/16/24 insulin degludec 100 unit/mL (3 mL) subcutaneous pen (Tresiba FlexTouch U-100 insulin) 64 unit subcut BID 08/11/25 amoxicillin 875 mg-potassium clavulanate 125 mg tablet 1 tab PO BID #14 tabs 08/15/25 lisinopril 10 mg tablet 10 mg PO DAILY #30 tabs 08/15/25 oxycodone 5 mg tablet 5 mg PO Q4H PRN PRN Pain Score 4-10 3 days #18 tabs 08/15/25 Hospital Course Operations - (I&D of right thigh abscess) Procedures - (CT abdomen and pelvis) Summary of Care Provided Minutes Spent on Discharge: 38 Hospital Course: Ms. Zambrano is a 45-year-old white female who presented to the emergency department at [facility] on 08/11/2025 for recurrent perineal abscess/infection. Patient has a significant medical history of diabetes that is not well- controlled as well as perineal cellulitis with history of necrotizing fasciitis to the buttocks in 2020. She had extensive debridement atthat time which resulted needing colostomy. That has been reversed. She again was hospitalized at this institution in September 2024 with another infection. Patient noted the day prior to presentation she felt a small lump under the areaof her right thigh that was slowly getting enlarged therefore she decided to come in for further evaluation before got that hand. Vital signs on presentation showed temperature 98.8, heart rate 125, respiratory 22, blood pressure was 180/98 and pulse ox was 99% room air. CBC on presentation was unimpressive however she did have a left shift with an 82% neutrophilia. Chemistry panel showed hyponatremia with a sodium of 129 however blood sugar [id number] consistent with pseudohyponatremia due to hyperglycemia. Her chloride was low at 94, serum bicarb was 16.4 and anion gap was 19. The beta-hydroxybutyratewas assessed and found to be slightly elevated at 2.6. Patient did not have symptoms consistent with DKA and a blood gas was obtained and she was alkalotic. She had not been eating so it suspected that this may be a starvation ketosis. A CRP was obtained and found to be 121. She was admitted to medical floor and placed on broad-spectrum antibiotics. An A1c was obtained and found to be 13.8. I highly suspect patient has not been super compliant with her insulin at home. She did state that her fasting sugars had been 120-130 but she creeped up throughout the day. I am not sure that this is consistent with what we are seeing clinically. On day 2 of her hospitalization she was complaining of more pain in the area that was assessed. It appeared that the indurated area had come to ahead and there was subcutaneous pus. General surgery was consulted andan I&D was performed. Cultures were sent from the abscess. Cultures at the time of discharge showed group B strep as well as alphahemolytic strep. On day 3 of her hospitalization she had some worsening of pain and erythematous extension from the area of I&D so ID was consulted she was maintained on Vanco and Zosyn which she was started on admission.. By day 4 of her hospitalization she was feeling much better with only mild tenderness in that area. Recommendation to discharge her antibiotics were Augmentin for total of 10 days from the day of her I&D. She was sent home with 7 more days of Augmentin. She and I discussed extensively her hyperglycemia and its role in recurrent infections. She is agreeable to follow-up with endocrinology. I did give her Dr. Ambrosio Marques's information and the plan is to follow-up with her as an outpatient after discharge. She is to call tomorrow to set up an appointment. Her blood pressure was also somewhat elevated so we did increase her lisinopril from 5 mg to 10 mg daily. Prescriptions for her med changes and antibiotics were sent to the local pharmacy prior to discharge. Patient was discharged homein stable condition with wound care instructions at the time of discharge. She is to follow-up with Dr. Cam from general surgery within 2 weeks, primary carephysician as needed, and Dr. Marques as soon as Dr. Marques has availability. Discharge diagnoses: Cellulitis/abscess of the perineum secondary to group B strep/alphahemolytic strep Low serum bicarb-resolved Elevated xufu-jfvmfkhylsewgvw-ioyyuap related to starvation ketosis Uncontrolled DM-A1c 13.8 Essential hypertension Hyperlipidemia Neuropathy Obesity Physical Exam Const alert, oriented x3, no apparent distress, no limitations and well nourished; Negative for average body habitus or healthy appearing Constitutional Narrative: Obese, middle-aged, white female, sitting up in bed, appears comfortable, nontoxic, very pleasant, watching television General Appearance: cooperative, comfortable, well kempt and well developed Exam Limitations: no limitations Nutritional Appearance: obese HEENT normocephalic, head/scalp atraumatic, hearing grossly normal bilaterally and moist oral mucous membranes HEENT Narrative: Mallampati 3, no thrush Eyes EOMs intact bilaterally Eyes Narrative: No scleral icterus Neck supple Neck Narrative: Trachea midline Resp normal respiratory effort, normal air movement, no retractions, no use of accessory muscles and clear to auscultation bilaterally Auscultation: Negative for crackles, rhonchi or wheezes Cardio regular rate, regular rhythm, S1 normal heart sound, S2 normal heart sound, no murmurs, no rub, no gallops and no clicks GI normal to inspection, nondistended, normoactive bowel sounds, soft to palpation and non-tender Extremity no clubbing, cyanosis or edema Extremity Narrative: Pedal and radial pulses are 2+ Skin No no wounds and no jaundice Skin Narrative: Right thigh/buttocks area with improved, no significant drainage from the area of I&D, mild erythema but no induration and significant retraction from outlinedarea, decreased tenderness Neuro moves all extremities and no focal motor deficits Speech: speech normal Psych mental status grossly normal and affect normal Psych Narrative: Very pleasant, interacts appropriately Weight / BMI Weight Weight: 105.596 kg Body Mass Index (BMI) 35.4 ABG / Lab / Microbiology Data 08/15/25 05:57 08/15/25 05:57 Laboratory: Laboratory Results - last 24 hr 08/14/25 16:14: POC Glucose 120 H 08/14/25 17:08: Vancomycin Trough 21.9 H 08/14/25 22:39: POC Glucose 191 H 08/15/25 00:55: Random Vancomycin 15.6 H 08/15/25 05:57: WBC 6.0, RBC 4.03 L, Hgb 11.8 L, Hct 34.8 L, MCV 86.4, MCH 29.3,MCHC 33.9, RDW Std Deviation 41.6, RDW Coeff of Meet 13.2, Plt Count 204, MPV 11.0, Immature Gran % (Auto) 0.500, Neut % (Auto) 69.0, Lymph % (Auto) 18.5 L, [place] % (Auto) 8.8, Eos % (Auto) 2.7, Baso % (Auto) 0.5, Absolute Neuts (auto) 4.2, Absolute Lymphs (auto) 1.11, Nucleated RBC % 0, Sodium 139, Potassium 3.6, Chloride 107, Carbon Dioxide 22.8, Anion Gap 9, BUN 10, Creatinine 1.13, Estim Creat Clear Calc 79.97, Est GFR (MDRD) Non-Af 61, BUN/Creatinine Ratio 8.5 L, Glucose 140 H, Calcium 8.5 08/15/25 08:07: POC Glucose 110 H Microbiology: Microbiology 08/12/25 18:20 Abs - Buttock Gram Stain - Final 08/12/25 18:20 Abs - Buttock Wound Culture - Preliminary Streptococcus group B Alpha hemolytic organism 08/12/25 18:20 Abs - Buttock Anaerobic Culture - Preliminary Checking for anaerobes, further studies to follow. D/C Instructions Discharge Activity: Return to Normal Activity Return to work on: 08/16/25 DC O2, CPAP, BIPAP Needs Home O2 Discharge instructions: No DC home with Oxygen: No Meaningful Use Info Meaningful Use Meaningful Use Diagnoses (Choose all that apply): None applicable Discharge Plan Admission Admit Date/Time: 08/11/25 18:20 Primary Reason for Your Visit: Abscess Attending Provider: Chantel Hand Primary Care Provider: Joaquin Huitron Consulting Providers: Elias Barahona; Werner Cam; Fran Daley Instructions Additional Instructions / Restrictions: Recommend continuing to keep the open wound covered until completely closed Change dressing daily May leave dressing off to shower Follow-up with Dr. Cam or Grace Piña in 7-10 days [address] Please call Dr. Marques's office to set up an appointment as an outpatient to be seen a soon as possible 2. Please complete antibiotics as ordered. Encourage probiotics or yogurt intake to prevent antibiotic associated diarrhea Discharge Orders/Prescriptions Prescriptions: New oxycodone 5 mg Tablet 5 mg PO Q4H PRN PRN (Reason: Pain Score 4-10) 3 Days Qty: 18 0RF amoxicillin-pot clavulanate 875-125 mg tablet 1 tab PO BID Qty: 14 0RF lisinopril 10 mg Tablet 10 mg PO DAILY Qty: 30 2RF Discontinued lisinopril 5 mg tablet 5 mg PO DAILY No Action insulin lispro [Humalog KwikPen Insulin] 100 unit/mL insulin pen 44 unit SUBCUT TID Patient Comments: INJECT 44 UNITS SUBCUTANEOULSY WITH MEALS insulin glargine [Basaglar KwikPen U-100 Insulin] 100 unit/mL (3 mL) insulin pen 66 unit SUBCUT BID Patient Comments: INJECT 40 UNITS SUBCUTANEOUSLY TWICE DAILY atorvastatin 10 mg tablet 10 mg PO QHS ropinirole 0.5 mg tablet 1.5 mg PO QHS insulin degludec [Tresiba FlexTouch U-100] 100 unit/mL (3 mL) insulin pen 64 unit subcut BID Referrals / Follow Up: Joaquin Huitron MD [Primary Care Provider, Family Practice] - See Referral Note Referral Note: As needed Werner Cam MD [Med Staff - Active Staff, General Surgery] - 08/22/25 Ambrosio Marques MD [Med Staff - Courtesy Staff, Endocrinology] - See Referral Note Referral Note: Call for appointment to be seen as soon as possible Disposition Disposition (needs filled in before D/C Order can be placed): Home, Self Care Charges/Coding Visit Charges Inpatient E&M: 88675 Disch Hosp >30min 08/15/25 1228 <Electronically signed by Chantel Hand DO> Cosigner Signature (if applicable): CC: Dr. Joaquin Huitron MD; Dr. Chantel Hadn DO; Dr. Werner Cam MD; Ambrosio Marques MD~ Signed [facility] Work Phone: Evaluation + Plan note No data available for this section [facility] Evaluation note* Diagnosis Follow up- Primary [facility] Diagnosis Diabetes mellitus type II (HCC)- Primary documented in this encounter [facility] note* Diagnosis RLS (restless legs syndrome) Restless legs syndrome (RLS) documented in this encounter [facility] note* Diagnosis Colostomy present [facility]* Diagnosis Ventral hernia without obstruction or gangrene- Primary Ventral hernia, unspecified, without mention of obstruction or gangrene [facility]* Diagnosis Ventral hernia without obstruction or gangrene Ventral hernia, unspecified, without mention of obstruction or gangrene Incisional hernia Incisional hernia without mention of obstruction or gangrene [facility]* Diagnosis Annual physical exam- Primary Routine general medical examination at a health care facility Pre-operative clearance Preoperative examination, unspecified Diabetes mellitus type II (HCC) Mixed hyperlipidemia Ventral hernia without obstruction or gangrene Ventral hernia, unspecified, without mention of obstruction or gangrene Liver lesion Other specified disorders of liver Obesity (BMI 30-39.9) Obesity, unspecified Screening for cervical cancer Screening for malignant neoplasm of the cervix [facility]* Diagnosis Liver lesion Other specified disorders of liver [facility] Diagnosis Ventral hernia without obstruction or gangrene Ventral hernia, unspecified, without mention of obstruction or gangrene Incisional hernia Incisional hernia without mention of obstruction or gangrene [facility]* Diagnosis S/P repair of ventral hernia- Primary Other postprocedural status documented in this encounter [facility] noteNo assessment information available [facility] Work Phone: Evaluation note* Diagnosis UTI symptoms- Primary Other symptoms involving urinary system Abdominal wall seroma, subsequent encounter [facility]* Diagnosis Recurrent UTI (urinary tract infection)- Primary Urinary tract infection, site not specified Diabetes mellitus type II (HCC) [facility]* Diagnosis Boil, buttock- Primary Carbuncle and furuncle of buttock [facility]* Diagnosis Abscess, gluteal, right- Primary Cellulitis and abscess of buttock Status post incision and drainage Type 2 diabetes mellitus with hyperglycemia, with long-term current use of insulin (HCC) documented [facility]* Diagnosis Diabetes mellitus type II (HCC) [facility] Diagnosis Type 2 diabetes mellitus with hyperglycemia, with long-term current use of insulin (HCC)- Primary [facility]* Diagnosis Encounter for screening mammogram for breast cancer [facility]* Diagnosis Right arm pain- Primary Pain in limb Numbness and tingling of right arm Disturbance of skin sensation Headache, unspecified headache type Left facial numbness Disturbance of skin sensation [facility]* Diagnosis Sinobronchitis- Primary Unspecified sinusitis (chronic) [facility]* Diagnosis RLS (restless legs syndrome) Restless legs syndrome (RLS) [facility]* Diagnosis RLS (restless legs syndrome) Restless legs syndrome (RLS) [facility]* Diagnosis Diabetes mellitus type II (HCC) [facility]* Diagnosis Type 2 diabetes mellitus with hyperglycemia, with long-term current use of insulin (HCC)- Primary Pre-op evaluation Preoperative examination, unspecified Traumatic tear of left rotator cuff, unspecified tear extent, subsequent encounter [facility]* Diagnosis Type 2 diabetes mellitus with hyperglycemia, with long-term current use of insulin (HCC) [facility]* Diagnosis Type 2 diabetes mellitus with hyperglycemia, with long-term current use of insulin (HCC) [facility]* Diagnosis Type 2 diabetes mellitus with hyperglycemia, with long-term current use of insulin (HCC)- Primary Pre-op evaluation Preoperative examination, unspecified [facility]* Diagnosis Encounter for screening mammogram for breast cancer [facility]* Diagnosis Diabetes mellitus type II (HCC) RLS (restless legs syndrome) Restless legs syndrome (RLS) Type 2 diabetes mellitus with hyperglycemia, with long-term current use of insulin (HCC) [facility]* Diagnosis Annual physical exam- Primary Routine general medical examination at a health care facility Type 2 diabetes mellitus with [...] single bacterial disease [facility]* Diagnosis Leukocytosis, unspecified type- Primary [facility]* Diagnosis Type 2 diabetes mellitus with hyperglycemia, with long-term current use of insulin (HCC) [facility]* Diagnosis Sore throat- Primary Acute pharyngitis Fever, unspecified fever cause [facility]* Diagnosis Encounter for screening mammogram for breast cancer [facility] Diagnosis Diabetes mellitus type II (HCC) [facility]* Diagnosis Type 2 diabetes mellitus with hyperglycemia, with long-term current use of insulin (HCC) RLS (restless legs syndrome) Restless legs syndrome (RLS) documented [facility] encounter [facility]* Diagnosis Infection- Primary Unspecified infectious and parasitic diseases [facility]* Diagnosis Hospital discharge follow-up- Primary Other follow-up examination Encounter for immunization Need for other specified prophylactic vaccination against single bacterial disease Rectal abscess Abscess of anal and rectal regions documented in this encounter [facility]* Diagnosis Type 2 diabetes mellitus with hyperglycemia, with long-term current use of insulin (HCC)- Primary RLS (restless legs syndrome) Restless legs syndrome (RLS) Elevated BP without diagnosis of hypertension documented [facility] this encounter [facility] Diagnosis Diabetes mellitus type II (HCC) RLS (restless legs syndrome) Restless legs syndrome (RLS) documented in this encounter [facility]* Diagnosis Diabetes mellitus type II (HCC) RLS (restless legs syndrome) Restless legs syndrome (RLS) documented in this encounter [facility]* Diagnosis Encounter for screening mammogram for breast cancer documented in this encounter [facility] Diagnosis Onset Date Resolution Status Admit Date Cellulitis of perineum acute Oc tober 2024 6:20pm [facility] Work Phone: History and physical note Author [facility] Note Date/Time August 11, 2025 7: 46pm [facility] Medical Records Department [address] [place] [address] H&P Exam - Hospitalist 08/11/25 1908 MR#: [id number] Acct: [id number] Name: TRICE ZAMBRANO Rep #:[id number] : 1980 45 From: Elias guerra DO PCP: Dr. Joaquin Huitron MD Status :ADM IN Location: [facility] [id number] HPI - General General Date of Admission: 08/11/25 Date of Service: 08/11/25 Chief Complaint: Recurrent perineal infection HPI Narrative TRICE ZAMBRANO, is a 45 F [address] presented to [facility] ED on 08/11/2025 with concern for recurrent perineal infection. Medical history is significant for left perineal cellulitis with necrotizing fasciitis to the buttocks back in April 2021. She had an extensive debridement at that time as well as creation of a colostomy, which has since been reversed. More recently she was hospitalized here in September 2024 again with a left perineal/buttock infection. Areas of fibrosis in the perianal location were seen on CT imaging but there was no evidence of necrotizing fasciitis or drainable abscess. Surgery followed and noted there is no need for surgical intervention. ID followed and patient was treated with vancomycin and Zosyn while inpatient and then discharged on 1 week of p.o. doxycycline and Augmentin. Patient reports that she recovered well at that time. She notes today that yesterday she felt asmall tender lump in the right perineal area that was pea-sized. Today it worsened significantly and was golf ball sized and was more tender, so she came in for further evaluation. In the ED she had sinus tachycardia to the 100s and was hypertensive to the 140s to 150s systolic but she was otherwise afebrile andstable on room air at rest. CT abdomen pelvis showed no perirectal abscess or other concerning findings. Labs notable for WBC count 10, sodium 129, chloride 94, glucose 527. She was given 2 L of IV fluids and IV antibiotics, and hospitalist was contacted for admission. I saw the patient at bedside in the ED. Patient was laying on her side in bed and was mildly uncomfortable due to ongoing nausea and perineal pain/discomfort. States that she has been vigilant with hygiene measures with using the restroomsince her last episode in September. She also states that she feels that her blood sugars have been fairly well-controlled recently. She did notice that herblood sugars seem to spike on Tuesday and she had decreased appetite, and that was followed by development of infection in the perineal area. She notes that the pain and nausea medications have been moderately helpful for her in the ED. She denies any other acute concerns currently. Will be admitted for further management. 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 History of necrotising fasciitis Current use of insulin Diabetes Home Medications ?Medication ?Instructions ?Recorded ?Last Taken ?Type insulin glargine 100 unit/mL (3 66 unit subcut BID patrick betes 04/23/21 09/16/24 History mL) subcutaneous pen (Basaglar KwikPen U-100 Insulin) insulin lispro 100 unit/mL 44 unit subcut TID 04/23/21 09/16/24 History subcutaneous pen (Humalog KwikPen (U-100) Insulin) atorvastatin 10 mg tablet 10 mg PO QHS 09/14/21 History lisinopril 5 mg tablet 5 mg PO DAILY 09/14/2109/15 History ropinirole 0.5 mg tablet 1.5 mg PO QHS 09/16/2409/15 History insulin degludec 100 unit/mL (3 64 unit subcut BID 03/31 Unknown History mL) subcutaneous pen (Tresiba FlexTouch U-100 insulin) Allergy/AdvReac Type Severity Reaction Status Date / Time metformin AdvReac Nausea Verified 08/11/25 13:16 Family History Other Breast cancer Diabetes Surgical [...] Status: Never smoker ROS Constitutional Constitutional: Reports chills and fatigue; Denies fever(s) or weakness Cardiovascular Cardiovascular: Denies chest pain Respiratory/Chest Respiratory/Chest: Denies shortness of breath at rest Gastrointestinal Gastrointestinal: Reports nausea and other Details: Perineal discomfort ; Denies abdominal pain, constipation, diarrhea or vomiting Neurologic Neurologic: Denies dizziness, focal weakness or headache(s) Vital Signs Vital Signs Vital Signs: 10/05/25 13:16 08/11/25 14:18 08/11/25 15:00 Temperature 98.8 F 98.5 F 98.6 F Temperature Source Oral Oral Oral Pulse Rate 125 H 109 H 103 H Respiratory Rate 22 H 18 18 Blood Pressure 180/98 H 165/89 H 157/88 H Blood Pressure Mean 125 114 111 Pulse Ox 99 98 99 Oxygen Delivery Method Room Air Room Air Room Air 08/11/25 16:00 08/11/25 17:00 08/11/25 18:00 Temperature 98.7 F 98.6 F 98.6 F Temperature Source Oral Oral Oral Pulse Rate 103 H 101 H 101 H Respiratory Rate 16 16 18 Blood Pressure 107/77 146/62 H 128/79 H Blood Pressure Mean 87 90 95 Pulse Ox 99 98 99 Oxygen Delivery Method Room Air Room Air Room Air 08/11/25 18:13 Temperature 98.6 F Temperature Source Pulse Rate 100 Respiratory Rate 14 Blood Pressure 128/78 H Blood Pressure Mean 94 Pulse Ox 99 Oxygen Delivery Method Weight Weight: 105.6 kg Body Mass Index (BMI) 35.4 Physical Exam Const alert, oriented x3 and no apparent distress Constitutional Narrative: Pleasant middle-age female, class II obesity, mildly fatigued and mildly uncomfortable appearing due to ongoing pain and nausea, otherwise laying on her side in bed, answering questions appropriately. General Appearance: cooperative and comfortable HEENT normocephalic, head/scalp atraumatic, hearing grossly normal bilaterally, nasal mucous membranes and turbinates normal and moist oral mucous membranes Eyes PERRL, EOMs intact bilaterally and conjunctivae normal Neck full ROM Chest inspection of chest normal Resp normal respiratory effort, normal air movement, no use of accessory muscles and clear to auscultation bilaterally Cardio regular rate, regular rhythm, no murmurs and peripheral pulses 2+ throughout GI normal to inspection, nondistended, normoactive bowel sounds, soft to palpation,non-tender and non-distended Back/Spine normal ROM Extremity normal to inspection, full ROM and no pedal edema Skin Skin Narrative: Tender area over the right medial perineal area with erythema and induration noted. Minimal fluctuance and no active drainage or discharge. Psych mental status grossly normal Results Lab / Micro Data 08/11/25 13:40 08/11/25 13:40 Labs: Laboratory Results - last 24 hr 08/11/25 13:40: WBC 10.5, RBC 4.83, Hgb 14.0, Hct 39.9, MCV 82.6, MCH 29.0, MCHC35.1, RDW Std Deviation 38.5, RDW Coeff of Meet 12.8, Plt Count 169, MPV 11.7, Immature Gran % (Auto) 0.500, Neut % (Auto) 82.3 H, Lymph % (Auto) 10.3 L, Fulton % (Auto) 6.3, Eos % (Auto) 0.3, Baso % (Auto) 0.3, Absolute Neuts (auto) 8.7 H, Absolute Lymphs (auto) 1.08, Nucleated RBC % 0, PT 12.2, INR 0.9, APTT 24.1, Sodium 129 L, Potassium 4.2, Chloride 94 L, Carbon Dioxide 16.4 L, Anion Gap 19 H, BUN 14, Creatinine 0.73, Estim Creat Clear Calc 123.80, Est GFR (MDRD) Non-Af 103, BUN/Creatinine Ratio 19.2, Glucose 527 H*, Hemoglobin A1c 13.8 H, Lactic Acid 1.1, Calcium 9.0, C-React Prot Ext Range 112.00 H, b-Hydroxybutyric mmol/L 2.6 H 08/11/25 14:30: Serum , Qual NEGATIVE 08/11/25 15:20: Urine Color Straw, Urine Clarity Clear, Urine pH 6.0, Ur Specific Frierson 1.015, Urine Protein 30 H, Urine Glucose (UA) 1000 H, Urine Ketones 150 A*, Urine Occult Blood 50 H, Urine Nitrite Negative, Urine BilirubinNegative, Urine Urobilinogen Normal, Ur Leukocyte Esterase 100 H, Urine RBC 5-10SEEN, Urine WBC 10-25 SEEN, Ur Squamous Epith Cells 0-5 SEEN, Urine Bacteria 0 SEEN, Urine Mucus 0 SEEN 08/11/25 17:32: POC Glucose 373 H ABG Data ABG results: ABG 08/11/25 16:30 Specimen Type KISHAN Sample Site [id number] VBG pH 7.45 H VBG pO2 32 VBG HCO3 22 VBG Total CO2 23 VBG O2 Sat (Calc) 67 VBG Base Excess -2 L POC Mix VBG pCO2 Pt Tmp 31.8 L O2 Delivery Device Not entered Imaging Radiology Impression Abdomen/Pelvis CT 08/11/25 14:10 IMPRESSION: No perirectal abscess noted Reading [facility] Assessment & Plan Assessment/Plan (1) Cellulitis of perineum: PLAN: Plan Patient is a 45-year-old female who presented to [facility] ED on 08/11/2025 with recurrent perineal infection. 1. Recurrent perineal infection, history of necrotizing fasciitis in perineal area ? Admit under inpatient status to [facility]. History of necrotizing fasciitis in the left perineal area in 2020 requiring extensive debridement and creation of colostomy (now reversed). Hospitalized in September 2024 with left perineal infection; no surgical needs and patient improved well on antibiotics. Presentsnow with area of tenderness and erythema in the right perineal area. CT abdomenpelvis with no soft tissue swelling, abscess or other concerning findings. LRINEC score of 7 (elevated CRP of 112, Na < 135, glucose > 180) but importantlypatient has severely elevated glucose of 527 and pseudohyponatremia with sodium 129 as below. Given no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 General Family Medicine 03/26/20 Roller Embosser Relationship Specialty Start Date End Date Jean Claude Huitron MD [address] [place] [address] PCP - General Family Medicine 03/26/20 Roller Embosser Relationship Specialty Start Date End Date Jean Claude Huitron MD [address] [place] [address] PCP - General Family Medicine 03/26/20 Roller Embosser Relationship Specialty Start Date End Date Jean Claude Huitron MD [address] [place] [address] PCP - General Family Medicine 03/26/20 Team Status: Active Member Role Status Dates Dr. Shakira Mathur MD Family Provider Active Dr. Joaquin Huitron MD Primary Care Provider Acti ve Team Status: Inactive Member Role Status Dates Dr. Cosme Link MD Emergency Provider Active Dr. Joaquin Huitron MD Primary Care Provider Acti ve Roller Embosser Relationship Specialty Start Date End Date Jean Claude Huitron MD [address] [place] [address] PCP - General Family Medicine 03/26/20 Roller Embosser Relationship Specialty Start Date End Date Jean Claude Huitron MD [address] [place] [address] PCP - General Family Medicine 03/26/20 Roller Embosser Relationship Specialty Start Date End Date Jean Claude Huitron MD [address] [place] [address] PCP - General Family Medicine 03/26/20 Roller Embosser Relationship Specialty Start Date End Date Jean Claude Huitron MD [address] [place] [address] PCP - General Family Medicine 03/26/20 Roller Embosser Relationship Specialty Start Date End Date Jean Claude Huitron MD [address] [place] [address] PCP - General Family Medicine 03/26/20 Roller Embosser Relationship Specialty Start Date End Date Jean Claude Huitron MD [address] [place] [address] PCP - General Family Medicine 03/26/20 Team Status: Inactive Member Role Status Dates Dr. Joaquin Huitron MD Primary Care Provider Acti ve Dr. Werner Moore DO Attending Provider, Referring Provider Active Roller Embosser Relationship Specialty Start Date End Date Jean Claude Huitron MD [address] [place] [address] PCP - General Family Medicine 03/26/20 Roller Embosser Relationship Specialty Start Date End Date Jean Claude Huitron MD [address] [place] [address] PCP - General Family Medicine 03/26/20 Roller Embosser Relationship Specialty Start Date End Date Jean Claude Huitron MD [address] [place] [address] PCP - General Family Medicine 03/26/20 Roller Embosser Relationship Specialty Start Date End Date Jean Claude Huitron MD [address] [place] [address] PCP - General Family Medicine 03/26/20 Roller Embosser Relationship Specialty Start Date End Date Jean Claude Huitron MD [address] [place] [address] PCP - General Family Medicine 03/26/20 Roller Embosser Relationship Specialty Start Date End Date Jean Claude Huitron MD [address] [place] [address] PCP - General Family Medicine 03/26/20 Roller Embosser Relationship Specialty Start Date End Date Jean Claude Huitron MD [address] [place] [address] PCP - General Family Medicine 03/26/20 Roller Embosser Relationship Specialty Start Date End Date Jean Claude Huitron MD [address] [place] [address] PCP - General Family Medicine 03/26/20 Roller Embosser Relationship Specialty Start Date End Date Jean Claude Huitron MD [address] [place] [address] PCP - General Family Medicine 03/26/20 Roller Embosser Relationship Specialty Start Date End Date Jean Claude Huitron MD [address] [place] [address] PCP - General Family Medicine 03/26/20 Roller Embosser Relationship Specialty Start Date End Date Jean Claude Huitron MD [address] [place] [address] PCP - General Family Medicine 03/26/20 PodlogarIrlanda APRN.FIELD MECHANICAL METER TESTER [address] [place] [address] Willow Worker Family Medicine 10/13/24 Roller Embosser Relationship Specialty Start Date End Date Jean Claude Huitron MD [address] [place] [address] PCP - General Family Medicine 03/26/20 PodlogarIrlanda APRN.FIELD MECHANICAL METER TESTER [address] [place] [address] Willow Worker Family Medicine 10/13/24 Roller Embosser Relationship Specialty Start Date End Date Jean Claude Huitron MD [address] [place] [address] PCP - General Family Medicine 03/26/20 Podlogar, ANNETTE Fournier.FIELD MECHANICAL METER TESTER [address] [place] [address] Willow Worker Family Medicine 10/13/24 Roller Embosser Relationship Specialty Start Date End Date Jean Claude Huitron MD [address] [place], [place] [address] PCP - General Family Medicine 03/26/20 PodlogIrlanda patel APRN.FIELD MECHANICAL METER TESTER [address] [place] [address] Willow Worker Family Medicine 10/13/24 Roller Embosser Relationship Specialty Start Date End Date Jean Claude Huitron MD [address] [place], [place] [address] PCP - General Family Medicine 03/26/20 JclogIrlanda patel APRN.FIELD MECHANICAL METER TESTER [address] [place], [place] [address] Willow Worker Family Medicine 10/13/24 Mary Ellen Root APRN.FIELD MECHANICAL METER TESTER [address] [place], [place] [address] Willow Worker Family Medicine 01/28/25 03/24/25 Team Status: Active Member Role/Relationship Status Dates Dr. Joaquin Huitron MD Primary care physician Act arminda Team Status: Active Member Role/Relationship Status Dates Dr. Joaquin Huitron MD Primary care physician Act arminda Start: August 11, 2025 Dr. Myles Cabrera , DO Emergency Departm ent Physician Active Start: August 11, 2025 Dr. Elias Barahona , Admitting physician Active Start: August 11, 2025 Dr. Elias Barahona , DO Nurse Practitioner Active Start: August 11, 2025 Dr. Chantel Hand , Attending physician Active Start: August 11, 2025 Team Status: Active Member Role/Relationship Status Dates Dr. Joaquin Huitron MD Primary care physician Act arminda Start: August 11, 2025 Dr. Myles Cabrera , DO Emergency Departm ent Physician Active Start: August 11, 2025 Dr. Elias Barahona , Admitting physician Active Start: August 11, 2025 Dr. Elias Barahona , DO Attending physician Active Start: August 11, 2025 Dr. Elias Barahona , DO Nurse Practitioner Active Start: August 11, 2025 Team Status: Inactive Member Role/Relationship Status Dates Dr. Joaquin Huitron MD Primary care physician Act arminda Start: August 11, 2025 End: August 15, 2025 Dr. Myles Cabrera , DO Emergency Departm ent Physician Active Start: August 11, 2025 End: August 15, 2025 Dr. Elias Barahona , DO Admitting physician Active Start: August 11, 2025 End: August 15, 2025 Dr. Elias Barahona , DO Nurse Practitioner Active Start: August 11, 2025 End: August 15, 2025 Dr. Chantel Hand , DO Attending physician Active Start: August 11, 2025 End: August 15, 2025 Dr. Werner Cam MD Nurse Practitioner Active Start: August 11, 2025 End: August 15, 2025 Dr. Fran Daley MD Nurse Practitioner Active Start: August 11, 2025 End: August 15, 2025 Team Status: Active Member Role/Relationship Status Dates Dr. Joaquin Huitron MD Primary care physician Act arminda Start: August 12, 2025 Dr. Myles Cabrera , DO Emergency Departm ent Physician Active Start: August 12, 2025 Dr. Elias Barahona DO Admitting physician Active Start: August 12, 2025 Dr. Elias Barahona DO Nurse Practitioner Active Start: August 12, 2025 Dr. Chantel Hand DO Attending physician Active Start: August 12, 2025 Dr. Chantel Hand , DO Nurse Practitioner Active S tart: August 12, 2025 Dr. Werner Cam MD Nurse Practitioner Active Start: August 12, 2025 Team Status: Active Member Role/Relationship Status Dates Dr. Joaquin Huitron MD Primary care physician Act arminda Start: August 12, 2025 Dr. Myles Cabrera , DO Emergency Departm ent Physician Active Start: August 12, 2025 Dr. Elias Barahona , DO Admitting physician Active Start: August 12, 2025 Dr. Elias Barahona DO Nurse Practitioner Active Start: August 12, 2025 Dr. Chantel Hand , DO Nurse Practitioner Active S tart: August 12, 2025 Dr. Werner Cam MD Attending physician Active Start: August 12, 2025 Dr. Werner Cam MD Nurse Practitioner Active Start: August 12, 2025 Team Status: Active Member Role/Relationship Status Dates Dr. Joaquin Huitron MD Primary care physician Act arminda Start: August 13, 2025 Dr. Myles Cabrera , DO Emergency Departm ent Physician Active Start: August 13, 2025 Dr. Elias Barahona , DO Admitting physician Active Start: August 13, 2025 Dr. Elias Barahona , DO Nurse Practitioner Active Start: August 13, 2025 Dr. Chantel Hand , DO Attending physician Active Start: August 13, 2025 Dr. Chantel Hand , DO Nurse Practitioner Active S tart: August 13, 2025 Dr. Werner Cam MD Nurse Practitioner Active Start: August 13, 2025 Team Status: Active Member Role/Relationship Status Dates Dr. Joaquin Huitron MD Primary care physician Act arminda Start: August 13, 2025 Dr. Myles Cabrera , DO Emergency Departm ent Physician Active Start: August 13, 2025 Dr. Elias Barahona , DO Admitting physician Active Start: August 13, 2025 Dr. Elias Barahona , DO Nurse Practitioner Active Start: August 13, 2025 Dr. Chantel Hand , DO Nurse Practitioner Active S tart: August 13, 2025 Dr. Werner Cam MD Nurse Practitioner Active Start: August 13, 2025 Grace JOE PA-C Attending physician Active Start: August 13, 2025 Team Status: Active Member Role/Relationship Status Dates Dr. Joaquin Huitron MD Primary care physician Act arminda Start: August 14, 2025 Dr. Myles Cabrera , DO Emergency Departm ent Physician Active Start: August 14, 2025 Dr. Elias Barahona , DO Admitting physician Active Start: August 14, 2025 Dr. Elias Barahona , DO Nurse Practitioner Active Start: August 14, 2025 Dr. Chantel Hand , DO Nurse Practitioner Active S tart: August 14, 2025 Dr. Werner Cam MD Nurse Practitioner Active Start: August 14, 2025 Grace JOE PA-C Attending physician Active Start: August 14, 2025 Team Status: Active Member Role/Relationship Status Dates Dr. Joaquin Huitron MD Primary care physician Act arminda Start: August 14, 2025 Dr. Myles Cabrera , DO Emergency Departm ent Physician Active Start: August 14, 2025 Dr. Elias Barahona DO Admitting physician Active Start: August 14, 2025 Dr. Elias Barahona , DO Nurse Practitioner Active Start: August 14, 2025 Dr. Chantel Hand , Attending physician Active Start: August 14, 2025 Dr. Chantel Hand , DO Nurse Practitioner Active S tart: August 14, 2025 Dr. Werner Cam MD Nurse Practitioner Active Start: August 14, 2025 Dr. Fran Daley MD Nurse Practitioner Active Start: August 14, 2025 Team Status: Active Member Role/Relationship Status Dates Dr. Joaquin Huitron MD Primary care physician Act arminda Start: August 15, 2025 Dr. Myles Cabrera , DO Emergency Departm ent Physician Active Start: August 15, 2025 Dr. Elias Barahona DO Admitting physician Active Start: August 15, 2025 Dr. Elias Barahona DO Nurse Practitioner Active Start: August 15, 2025 Dr. Chantel Hand , DO Nurse Practitioner Active S tart: August 15, 2025 Dr. Werner Cam MD Attending physician Active Start: August 15, 2025 Dr. Werner Cam MD Nurse Practitioner Active Start: August 15, 2025 Dr. Fran Daley MD Nurse Practitioner Active Start: August 15, 2025 Team Status: Active Member Role/Relationship Status Dates Dr. Joaquin Huitron MD Primary care physician Act arminda Start: August 15, 2025 Dr. Myles Cabrera , DO Emergency Departm ent Physician Active Start: August 15, 2025 Dr. Elias Barahona DO Admitting physician Active Start: August 15, 2025 Dr. Elias Barahona , Nurse Practitioner Active Start: August 15, 2025 Dr. Chantel Hand DO Attending physician Active Start: August 15, 2025 Dr. Chantel Hand , DO Nurse Practitioner Active S tart: August 15, 2025 Dr. Werner Cam MD Nurse Practitioner Active Start: August 15, 2025 Dr. Fran Daley MD Nurse Practitioner Active Start: August 15, 2025 Source Comments (unrecognize d section and content) In the event this informatio n is protected by the Federal Confidentiality of Alcohol and Drug Abuse Patient Records regulations: The Federal rules restrict any use of the information to criminally investigate or prosecute any alcohol or drug abuse patient.[facility] Hospital[facility] the event this information is protected by the Federal Confidentiality of Alcohol and Drug Abuse Patient Records regulations: The Federal rules restrict any use of the information to criminally investigate or prosecute any alcohol or drug abuse patient.[facility] HospitalIn the event this information is protected by the Federal Confidentiality of Alcohol and Drug Abuse Patient Records regulations: The Federal rules restrict any use of the information to criminally investigate or prosecute any alcohol or drug abuse patient.[facility] HospitalIn the event this information is protected by the Federal Confidentiality of Alcohol and Drug Abuse Patient Records regulations: The Federal rules restrict any use of the information to criminally investigate or prosecute any alcohol or drug abuse patient.[facility] HospitalIn the event this information is protected by the Federal Confidentiality of Alcohol and Drug Abuse Patient Records regulations: The Federal rules restrict any use of the information to criminally investigate or prosecute any alcohol or drug abuse patient.[facility] HospitalIn the event this information is protected by the Federal Confidentiality of Alcohol and Drug Abuse Patient Records regulations: The Federal rules restrict any use of the information to criminally investigate or prosecute any alcohol or drug abuse patient.[facility] HospitalIn the event this information is protected by the Federal Confidentiality of Alcohol and Drug Abuse Patient Records regulations: The Federal rules restrict any use of the information to criminally investigate or prosecute any alcohol or drug abuse patient.[facility] HospitalIn the event this information is protected by the Federal Confidentiality of Alcohol and Drug Abuse Patient Records regulations: The Federal rules restrict any use of the information to criminally investigate or prosecute any alcohol or drug abuse patient.[facility] HospitalIn the event this information is protected by the Federal Confidentiality of Alcohol and Drug Abuse Patient Records regulations: The Federal rules restrict any use of the information to criminally investigate or prosecute any alcohol or drug abuse patient.[facility] HospitalIn the event this information is protected by the Federal Confidentiality of Alcohol and Drug Abuse Patient Records regulations: The Federal rules restrict any use of the information to criminally investigate or prosecute any alcohol or drug abuse patient.[facility] HospitalIn the event this information is protected by the Federal Confidentiality of Alcohol and Drug Abuse Patient Records regulations: The Federal rules restrict any use of the information to criminally investigate or prosecute any alcohol or drug abuse patient.[facility] HospitalIn the event this information is protected by the Federal Confidentiality of Alcohol and Drug Abuse Patient Records regulations: The Federal rules restrict any use of the information to criminally investigate or prosecute any alcohol or drug abuse patient.[facility] HospitalIn the event this information is protected by the Federal Confidentiality of Alcohol and Drug Abuse Patient Records regulations: The Federal rules restrict any use of the information to criminally investigate or prosecute any alcohol or drug abuse patient.[facility] HospitalIn the event this information is protected by the Federal Confidentiality of Alcohol and Drug Abuse Patient Records regulations: The Federal rules restrict any use of the information to criminally investigate or prosecute any alcohol or drug abuse patient.[facility] HospitalIn the event this information is protected by the Federal Confidentiality of Alcohol and Drug Abuse Patient Records regulations: The Federal rules restrict any use of the information to criminally investigate or prosecute any alcohol or drug abuse patient.[facility] HospitalIn the event this information is protected by the Federal Confidentiality of Alcohol and Drug Abuse Patient Records regulations: The Federal rules restrict any use of the information to criminally investigate or prosecute any alcohol or drug abuse patient.[facility] HospitalIn the event this information is protected by the Federal Confidentiality of Alcohol and Drug Abuse Patient Records regulations: The Federal rules restrict any use of the information to criminally investigate or prosecute any alcohol or drug abuse patient.[facility] HospitalIn the event this information is protected by the Federal Confidentiality of Alcohol and Drug Abuse Patient Records regulations: The Federal rules restrict any use of the information to criminally investigate or prosecute any alcohol or drug abuse patient.[facility] HospitalIn the event this information is protected by the Federal Confidentiality of Alcohol and Drug Abuse Patient Records regulations: The Federal rules restrict any use of the information to criminally investigate or prosecute any alcohol or drug abuse patient.[facility] HospitalIn the event this information is protected by the Federal Confidentiality of Alcohol and Drug Abuse Patient Records regulations: The Federal rules restrict any use of the information to criminally investigate or prosecute any alcohol or drug abuse patient.[facility] HospitalIn the event this information is protected by the Federal Confidentiality of Alcohol and Drug Abuse Patient Records regulations: The Federal rules restrict any use of the information to criminally investigate or prosecute any alcohol or drug abuse patient.[facility] HospitalIn the event this information is protected by the Federal Confidentiality of Alcohol and Drug Abuse Patient Records regulations: The Federal rules restrict any use of the information to criminally investigate or prosecute any alcohol or drug abuse patient.[facility] HospitalIn the event this information is protected by the Federal Confidentiality of Alcohol and Drug Abuse Patient Records regulations: The Federal rules restrict any use of the information to criminally investigate or prosecute any alcohol or drug abuse patient.[facility] HospitalIn the event this information is protected by the Federal Confidentiality of Alcohol and Drug Abuse Patient Records regulations: The Federal rules restrict any use of the information to criminally investigate or prosecute any alcohol or drug abuse patient.[facility] HospitalIn the event this information is protected by the Federal Confidentiality of Alcohol and Drug Abuse Patient Records regulations: The Federal rules restrict any use of the information to criminally investigate or prosecute any alcohol or drug abuse patient.[facility] HospitalIn the event this information is protected by the Federal Confidentiality of Alcohol and Drug Abuse Patient Records regulations: The Federal rules restrict any use of the information to criminally investigate or prosecute any alcohol or drug abuse patient.[facility] HospitalIn the event this information is protected by the Federal Confidentiality of Alcohol and Drug Abuse Patient Records regulations: The Federal rules restrict any use of the information to criminally investigate or prosecute any alcohol or drug abuse patient.[facility] HospitalIn the event this information is protected by the Federal Confidentiality of Alcohol and Drug Abuse Patient Records regulations: The Federal rules restrict any use of the information to criminally investigate or prosecute any alcohol or drug abuse patient.[facility] HospitalIn the event this information is protected by the Federal Confidentiality of Alcohol and Drug Abuse Patient Records regulations: The Federal rules restrict any use of the information to criminally investigate or prosecute any alcohol or drug abuse patient.[facility] HospitalIn the event this information is protected by the Federal Confidentiality of Alcohol and Drug Abuse Patient Records regulations: The Federal rules restrict any use of the information to criminally investigate or prosecute any alcohol or drug abuse patient.[facility] HospitalIn the event this information is protected by the Federal Confidentiality of Alcohol and Drug Abuse Patient Records regulations: The Federal rules restrict any use of the information to criminally investigate or prosecute any alcohol or drug abuse patient.[facility] HospitalIn the event this information is protected by the Federal Confidentiality of Alcohol and Drug Abuse Patient Records regulations: The Federal rules restrict any use of the information to criminally investigate or prosecute any alcohol or drug abuse patient.[facility] HospitalIn the event this information is protected by the Federal Confidentiality of Alcohol and Drug Abuse Patient Records regulations: The Federal rules restrict any use of the information to criminally investigate or prosecute any alcohol or drug abuse patient.[facility] HospitalIn the event this information is protected by the Federal Confidentiality of Alcohol and Drug Abuse Patient Records regulations: The Federal rules restrict any use of the information to criminally investigate or prosecute any alcohol or drug abuse patient.[facility] HospitalIn the event this information is protected by the Federal Confidentiality of Alcohol and Drug Abuse Patient Records regulations: The Federal rules restrict any use of the information to criminally investigate or prosecute any alcohol or drug abuse patient.[facility] HospitalIn the event this information is protected by the Federal Confidentiality of Alcohol and Drug Abuse Patient Records regulations: The Federal rules restrict any use of the information to criminally investigate or prosecute any alcohol or drug abuse patient.[facility] HospitalIn the event this information is protected by the Federal Confidentiality of Alcohol and Drug Abuse Patient Records regulations: The Federal rules restrict any use of the information to criminally investigate or prosecute any alcohol or drug abuse patient.[facility] HospitalIn the event this information is protected by the Federal Confidentiality of Alcohol and Drug Abuse Patient Records regulations: The Federal rules restrict any use of the information to criminally investigate or prosecute any alcohol or drug abuse patient.[facility] HospitalIn the event this information is protected by the Federal Confidentiality of Alcohol and Drug Abuse Patient Records regulations: The Federal rules restrict any use of the information to criminally investigate or prosecute any alcohol or drug abuse patient.[facility] HospitalIn the event this information is protected by the Federal Confidentiality of Alcohol and Drug Abuse Patient Records regulations: The Federal rules restrict any use of the information to criminally investigate or prosecute any alcohol or drug abuse patient.[facility] HospitalIn the event this information is protected by the Federal Confidentiality of Alcohol and Drug Abuse Patient Records regulations: The Federal rules restrict any use of the information to criminally investigate or prosecute any alcohol or drug abuse patient.[facility] HospitalIn the event this information is protected by the Federal Confidentiality of Alcohol and Drug Abuse Patient Records regulations: The Federal rules restrict any use of the information to criminally investigate or prosecute any alcohol or drug abuse patient.[facility] HospitalIn the event this information is protected by the Federal Confidentiality of Alcohol and Drug Abuse Patient Records regulations: The Federal rules restrict any use of the information to criminally investigate or prosecute any alcohol or drug abuse patient.[facility] HospitalIn the event this information is protected by the Federal Confidentiality of Alcohol and Drug Abuse Patient Records regulations: The Federal rules restrict any use of the information to criminally investigate or prosecute any alcohol or drug abuse patient.[facility] HospitalIn the event this information is protected by the Federal Confidentiality of Alcohol and Drug Abuse Patient Records regulations: The Federal rules restrict any use of the information to criminally investigate or prosecute any alcohol or drug abuse patient.[facility] HospitalIn the event this information is protected by the Federal Confidentiality of Alcohol and Drug Abuse Patient Records regulations: The Federal rules restrict any use of the information to criminally investigate or prosecute any alcohol or drug abuse patient.[facility] HospitalIn the event this information is protected by the Federal Confidentiality of Alcohol and Drug Abuse Patient Records regulations: The Federal rules restrict any use of the information to criminally investigate or prosecute any alcohol or drug abuse patient.[facility] HospitalIn the event this information is protected by the Federal Confidentiality of Alcohol and Drug Abuse Patient Records regulations: The Federal rules restrict any use of the information to criminally investigate or prosecute any alcohol or drug abuse patient.[facility] HospitalIn the event this information is protected by the Federal Confidentiality of Alcohol and Drug Abuse Patient Records regulations: The Federal rules restrict any use of the information to criminally investigate or prosecute any alcohol or drug abuse patient.[facility] HospitalIn the event this information is protected by the Federal Confidentiality of Alcohol and Drug Abuse Patient Records regulations: The Federal rules restrict any use of the information to criminally investigate or prosecute any alcohol or drug abuse patient.[facility] HospitalIn the event this information is protected by the Federal Confidentiality of Alcohol and Drug Abuse Patient Records regulations: The Federal rules restrict any use of the information to criminally investigate or prosecute any alcohol or drug abuse patient.[facility] HospitalIn the event this information is protected by the Federal Confidentiality of Alcohol and Drug Abuse Patient Records regulations: The Federal rules restrict any use of the information to criminally investigate or prosecute any alcohol or drug abuse patient.[facility] HospitalIn the event this information is protected by the Federal Confidentiality of Alcohol and Drug Abuse Patient Records regulations: The Federal rules restrict any use of the information to criminally investigate or prosecute any alcohol or drug abuse patient.[facility] HospitalIn the event this information is protected by the Federal Confidentiality of Alcohol and Drug Abuse Patient Records regulations: The Federal rules restrict any use of the information to criminally investigate or prosecute any alcohol or drug abuse patient.[facility] HospitalIn the event this information is protected by the Federal Confidentiality of Alcohol and Drug Abuse Patient Records regulations: The Federal rules restrict any use of the information to criminally investigate or prosecute any alcohol or drug abuse patient.[facility] HospitalIn the event this information is protected by the Federal Confidentiality of Alcohol and Drug Abuse Patient Records regulations: The Federal rules restrict any use of the information to criminally investigate or prosecute any alcohol or drug abuse patient.[facility] HospitalIn the event this information is protected by the Federal Confidentiality of Alcohol and Drug Abuse Patient Records regulations: The Federal rules restrict any use of the information to criminally investigate or prosecute any alcohol or drug abuse patient.[facility] HospitalIn the event this information is protected by the Federal Confidentiality of Alcohol and Drug Abuse Patient Records regulations: The Federal rules restrict any use of the information to criminally investigate or prosecute any alcohol or drug abuse patient.[facility] HospitalIn the event this information is protected by the Federal Confidentiality of Alcohol and Drug Abuse Patient Records regulations: The Federal rules restrict any use of the information to criminally investigate or prosecute any alcohol or drug abuse patient.[facility] Scheduled Active and Recently Administ ered [...] 2 g, Intravenous, Administer over 30 Minutes, 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
Higher dose may be administered if lower dose was previously documented as ineffective and did not result in adverse effects (RR<10, negative change in RASS of 2 or more). Decrease back to lower dose if patient has adverse effects or no PRN use in previous 12 hours. Hold for sedation.
Recovery Goals (unrecognized section and content) Type Treatment Intervention Code Status: Full Code - Verified FOR RECORDS PERTAINING TO PATIENTS WHO ARE [...] BE BASED ON THE PRIMARY CLINICAL RECORDS. [facility]. provides no warranty or guarantee of the accuracy or completeness of information in this document.
[2025-08-24] MEDS: 0.9% Normal Saline (1000mL) 1,000 ML 999 ML IV (16:42)
[2025-08-24 16:49] LABS: D-Dimer Quantitative (DVT/PE) 1.24 FEU/ug/m (0.27-0.49)
--- NOTE | 2025-08-24 16:52 | CT_ITS ---
PROCEDURE: CTA CHEST W/WO CONTRAST 08/24/2025 REASON FOR EXAM: SOB, ELEVATED DIMER TECHNIQUE: Procedure Code: [id number] Modality: CT Procedure: CTA CHEST W/WO CONTRAST Multiplanar Sagittal and Coronal images were obtained. 3D post processing was performed. CONTRAST: Isovue 370 VOLUME: 98 mL One or more dose reduction techniques were used (e.g., Automated exposure control, adjustment of the mA and/or kV according to patient size, use of iterative reconstruction technique). RADIATION DOSE SUMMARY: DLP: 1691.21 mGycm COMPARISON: None available. FINDINGS: PULMONARY VESSELS: No filling defects suspicious for pulmonary arterial emboli identified. Normal caliber main pulmonary trunk. No evidence of right heart strain. LUNGS/PLEURA: Small bilateral pleural effusions with adjacent passive atelectasis. Clear aerated lung segments without airspace consolidation. No pneumothorax. Patent central airways. MEDIASTINUM: Unremarkable. No lymphadenopathy. HEART: Normal in size. No pericardial effusion. No coronary artery calcification. THORACIC AORTA: Normal. No aneurysm or dissection. UPPER ABDOMEN: Unremarkable, as visualized. BONES/SOFT TISSUES: Heterogeneous hypodense nodular lesion in the left thyroid lobe measuring 2.8 x 2.3 cm in axial plane. Minimal degenerative changes of the thoracic spine. CT/CTA Chest W/WO Contrast IMPRESSION: 1. No pulmonary arterial emboli identified. 2. Small bilateral pleural effusions. No airspace disease. 3. No thoracic lymphadenopathy. 4. Left thyroid nodular lesion measuring 2.8 cm, may be further assessed with u ltrasound. Reading Location: [id number]
--- NOTE | 2025-08-24 16:52 | CT_ITS ---
PROCEDURE: CT PELVIS WITH IV CONTRAST 08/24/2025 REASON FOR EXAM: BUTTOCK WOUNDS TECHNIQUE: Procedure Code: CTPELW Modality: CT Procedure: PELVIS WITH IV CONTRAST One or more dose reduction techniques were used (e.g., Automated exposure control, adjustment of the mA and/or kV according to patient size, use of iterative reconstruction technique). RADIATION DOSE SUMMARY: DLP: 1691.21 mGycm COMPARISON: 09/16/2024, 08/11/2025. FINDINGS: Induration in the medial right gluteal perianal soft tissues, similar to prior exam. No drainable fluid collection/abscess, or subcutaneous emphysema.. Chronic postoperative scarring in the lower anterior left abdominal wall. Small fat containing umbilical hernia. Visualized intrapelvic contents demonstrate no acute or active inflammatory process. Unremarkable urinary bladder. Unchanged 4.8 cm presumed fibroid at the right uterine fundus, otherwise the uterus and adnexae are unremarkable. No free fluid or air. Anastomotic chain sutures at the proximal sigmoid colon. Normal appendix. Mild atherosclerotic vascular calcifications. Visualized osseous structures are intact and within normal limits. CT/Pelvis WITH IV Contrast IMPRESSION: Induration in the medial right gluteal perianal soft tissues, no significant ch tabby from prior exam. No drainable fluid collection/abscess or subcutaneous emphysema. Ancillary findings as above. Reading Location: [id number]
[2025-08-24 16:55] LABS: CRP 19.50 mg/L (0.0-3.0); Lipase 66 U/L (13-75)
[2025-08-24 16:56] LABS: AST(SGOT) 26 U/L (<=31); Alanine Aminotransfer ALT/SGPT 35 U/L (<=34); Albumin, Serum 3.8 g/dL (3.5-5.0); Alkaline Phosphatase 81 U/L (35-104); Bilirubin, Direct < 0.08 mg/dL (0.00-0.30); Globulin 3.5 g/dL (2.2-4.2)
[2025-08-24] MEDS: Nystatin Ointment 1 APPLIC TOPICAL (21:17)
== END 2025-08-24 21:28 | disposition home or self-care (01) ==
PROVIDERS: Emergency Provider Emergency Medicine; PCP Family Medicine; Visit Provider Emergency Medicine
DX: L30.4 Erythema intertrigo (principal); E10.9 Type 1 diabetes mellitus without complications; J90 Pleural effusion, not elsewhere classified; R21 Rash and other nonspecific skin eruption; R06.00 Dyspnea, unspecified; R11.2 Nausea with vomiting, unspecified; E04.1 Nontoxic single thyroid nodule
CPT/HCPCS: 71275; 72193; 80048; 80076; 83605; 83690; 85025; 85379; 86140; 96361; 96374; 99283; Q9967; A4216; J2405

== ENCOUNTER → 2025-09-02 | Outpatient (CLI) | payer OTHER, SELFPAY | END | disposition home or self-care (01) | LOC: LAB 10:31 → LABSPEC 10:31 | PROVIDERS: PCP Family Medicine; Referring Provider Physician Assistant; Visit Provider Physician Assistant | DX: L02.91 Cutaneous abscess, unspecified (principal) | CPT/HCPCS: 87641 ==